=== PATIENT | male | born 1940 | race Caucasian/White ===

== ENCOUNTER 2019-03-18 06:10 | Day surgery (SDC) | payer MEDICARE, SELFPAY ==
[2019-03-18 06:32] VITALS: BP 126/88; PULSE 82; RESP 16; TEMP 36.2; O2SAT 99; BMI 25.8
[2019-03-18] MEDS: Lactated Ringers 1,000 ML 100 ML IV (06:47)
[2019-03-18 07:00] LABS: Bedside Glucose 146 mg/dL (70-110)
[2019-03-18] MEDS: Ketorolac 15 MG/ML Vial IV (07:28)
[2019-03-18] MEDS: Bupivacaine Mpf 0.5% 30 ML VIAL (07:45)
[2019-03-18] MEDS: Cefazolin 1 GM/50 ML BAG IV (07:54)
[2019-03-18 08:34] VITALS: BP 111/80; BP 126/88; PULSE 82; RESP 16; TEMP 36.2; O2SAT 97
--- NOTE | 2019-03-18 08:34 | OP.PCM_ITS ---
Report of Operation Date of Procedure: 03/18/19 Pre-Operative Diagnosis: Right first dorsal compartment tenosynovitis Post-Operative Diagnosis: Right first dorsal compartment tenosynovitis Surgery/Procedure Performed:: Right first dorsal compartment release Description of Surgical Findings:: Complete release. The tendon was explored for additional slips none were noted. systems support engineer: None Type of Anesthesia:: Local MAC Anesthesiologist: Lasha Fernandez Special Medications: Ancef Estimated Blood Loss (mL): 2 Fluids Replaced: 700 ml Description of Procedure: On the day of the procedure patient's R upper extremity was marked in the preoperative area. Patient was brought back to the operating room where placed in the supine position with the R hand on the armboard. A local block was administered by anesthesia, tourniquet was placed up at that time. R Hand was pr epped in a sterile fashion while the surgeon scrubbed. Upon reentering the room the R upper extremity was draped in a standard orthopedic fashion. Incision was marked out over the radial styloid. Timeout was called and it was agreed upon the side and site, the procedure to be performed, antibiotic given and patient's identity. Esmarch bandage was used to exsanguinate the extremity and tourniquet was placed at the 250 mmHg. No family incision was taken at the skin. Scissors were used to bluntly dissect until the sheath of the first dorsal compartment was visible. The sheath was incised in a longitudinal fashion and completely released leaving an volarly based flap. The thumb digit was then taken through range of motion and no triggering was noted. We explored the tendon for any additional slips did not identify any that were released. Wound was copiously irrigated out with normal saline. Incision was closed with 3-0 nylon. Xeroform dressing, sterile dressing, compressive jeremy ssing were placed tourniquet was let down. Patient was awakened by anesthesia and transferred to PACU for recovery. Postoperative plan: Patient can remove her dressing in 7 days. She'll follow up in 2 weeks for suture removal. She can begin range of motion as tolerated. - Complications none - Admit VTE Documentation VTE Present on Admission: No VTE Mechan Device Prophylaxis: SCD's VTE Pharm Prophylaxis ordered?: No Reason prophylaxis not ordered:: Treatment Not Indicated
[2019-03-18 08:45] VITALS: BP 126/88; BP 130/99; PULSE 75; RESP 16; O2SAT 97
[2019-03-18 08:45] LABS: Bedside Glucose 130 mg/dL (70-110)
[2019-03-18 08:52] VITALS: BP 126/88; BP 139/93; PULSE 75; RESP 16; TEMP 36.2; O2SAT 98
[2019-03-18 09:24] VITALS: BP 126/88
== END 2019-03-18 09:32 | disposition home or self-care (01) ==
LOC: SDC 06:15 → AC 06:16
PROVIDERS: Family Provider Nurse Practitioner Primary Care; PCP Nurse Practitioner Primary Care; Referring Provider Specialist; Visit Provider Specialist
PROC: (CPT 64721; principal; 2019-03-18 07:45)
DX: M65.4 Radial styloid tenosynovitis [de Quervain] (principal); E11.9 Type 2 diabetes mellitus without complications; E78.00 Pure hypercholesterolemia, unspecified; Z79.84 Long term (current) use of oral hypoglycemic drugs; Z79.899 Other long term (current) drug therapy
CPT/HCPCS: 01810; 25000; 82962; J7120; J2405

== ENCOUNTER 2024-10-29 15:48 | Inpatient (IN) | payer MEDICARE, SELFPAY ==
[2024-10-29 16:07] VITALS: BP 140/81; PULSE 86; RESP 14; TEMP 36; O2SAT 95; BMI 21.7; BMI 22.9
--- NOTE | 2024-10-29 19:09 | HP.PCM_ITS ---
HPI - General General Date of Admission: 10/29/24 Date of Service: 10/29/24 Chief Complaint: Here for rehabilitation. HPI Narrative ELVIS SUMMERS, is a 83 Male who presents with followin10/20/2024 Admit to [facility]. Recent fall with rib fracture. Acute delirium 2/2 hyponatremia from starting Sertraline recently AND taking 's oxycodone. 10/21/2024 CODE BLUE 2/2 vasovagal with urinary retention, transferred to MICU after ROSC after 1 round of CPR. Neurology consulted for mental status. 10/21/2024 MRI brain negative for stroke, showed chronic vascular changes. Possible vascular dementia. Transferred out of MICU. Mild to moderate HFpEF 2/2 cardiac arrest and IV fluid use to improve hyponatremia. Lasix 20mg iv q6 started for diuresis. Urology recommended Tamsulosin, indwelling baca catheter for 1-2 weeks bladder rest for urinary retention. 10/27/2024 CLINICAL STAFF EDUCATOR called for increasing oxygen requirement, Lasix 40mg iv x 1 dose given, Ceftriaxone and Doxycycline added for pneumonia. BiPAP applied and transferred to MICU. Pulsox improved to mid 90's on BIPAP with FiO2 85%, intubation held. Euvolemic. Echo shows moderate to severe aortic stenosis. 10/28/2024 Increase oxygen demand overnight, oxygen 8 liters, pulsox 94%. Continue incentive spirometry, wean oxygen as tolerated. PT/OT SNF. 10/29/2024 Admit to TCU with debility, here for rehabilitation, strengthening, prior to discharge home with . [facility] Medical History (Updated 10/29/24 @ 19:[address] Juan Reed MD) Vascular dementia Iron deficiency anemia Hyperlipidemia, unspecified Essential (primary) hypertension Type 2 diabetes mellitus with hyperglycemia Glaucoma Anxiety Urinary retention BPH (benign prostatic hyperplasia) Pneumonia Acute heart failure with preserved ejection fraction (HFpEF) Acute respiratory failure with hypoxia Cardiac arrest Hyponatremia Acute delirium Debility Home Medications ?Medication ?Instructions ?Recorded ?Last Taken ?Type atorvastatin 80 mg tablet 80 mg PO QHS cholesterol 10/22 Unknown History lisinopril 5 mg tablet 5 mg PO QHS kidneys 03/11/19 Unknown History metformin 1,000 mg tablet 1,000 mg PO QHS diabetes 10/22 Unknown History aspirin 81 mg tablet,delayed 81 mg PO DAILY atheroscle rosis 10/29/24 Unknown History release atorvastatin 40 mg tablet 40 mg PO DAILY hyperlipidemi a 10/29/24 Unknown History cholecalciferol (vitamin D3) 25 2,000 unit PO DAILY bear pplement 10/29/24 Unknown History mcg (1,000 unit) capsule docusate sodium 100 mg capsule 100 mg PO BID constipat ion 10/29/24 Unknown History (Colace) fluticasone propionate 50 1 spray intranasal DAILY all ergy 10/29/24 Unknown History mcg/actuation nasal symptoms spray,suspension (Allergy Relief (fluticasone)) latanoprost 0.005 % eye drops 1 drp ophthalmic (eye) Q HS eye 10/29/24 Unknown History health metformin 500 mg tablet,extended 1,000 mg PO BID type 2 diabetes 10/29/24 Unknown History release 24 hr mellitus multivitamin (Daily Multi-Vitamin 1 tab PO DAILY suppl ement 10/29/24 Unknown History tablet) pioglitazone 30 mg tablet 30 mg PO DAILY diabetes /2 10/28 Unknown History sertraline 25 mg tablet 25 mg PO DAILY anxiety 10/29 Unknown History tamsulosin 0.4 mg capsule (Flomax) 0.4 mg PO DAILY pro state 10/29/24 Unknown History timolol maleate 0.5 % eye drops 1 drp ophthalmic (eye) BID eye 10/29/24 Unknown History health trazodone 50 mg tablet 50 mg PO QHS sleep 10/29/24 Unknown History Allergy/AdvReac Type Severity Reaction Status Date / Time No Known Allergies Allergy Verified 03/11/19 14:02 Family History (Updated 10/29/24 @ 19:[address] Juan Reed MD) Daughter Diabetes Mother Hypertension Hyperlipidemia Lung cancer Father Hyperlipidemia Brother Hyperlipidemia Surgical History (Updated 10/29/24 @ 19:[address] Juan Reed MD) History of repair of left rotator cuff History of cholecystectomy Social History (Updated 10/29/24 @ 19:[address] Juan Reed MD) household members: spouse Smoking Status: Never smoker alcohol intake: current alcohol intake frequency: holidays/special occasions only substance use type: does not use ROS Review of Systems ROS Unobtainable: due to encephalopathy and due to mental condition Constitutional Constitutional: Reports weakness; Denies chills, fever(s) or weight gain ENT HEENT: Denies headache(s), nasal congestion or nasal discharge Cardiovascular Cardiovascular: Denies chest pain or palpitations Respiratory/Chest Respiratory/Chest: Denies cough, excessive phlegm production or shortness of breath with exertion Gastrointestinal Gastrointestinal: Denies abdominal pain, nausea or vomiting Genitourinary Genitourinary: Denies dysuria Musculoskeletal Musculoskeletal: Denies joint pain or joint swelling Integumentary Integumentary: Denies rash or wounds Neurologic Neurologic: Denies focal weakness, numbness or tingling Psychiatric Psychiatric: Denies anxiety, auditory hallucinations, depression, homicidal ideation or suicidal ideation Vital Signs Vital Signs Vital Signs: 10/29/24 16:07 10/29/24 16:07 Temperature 96.8 F L Temperature Source Axillary Pulse Rate 86 Pulse Rhythm Regular Pulse Strength Normal (2+) Respiratory Rate 14 Respiratory Effort Normal Non-Labored Respiratory Depth Normal Respiratory Pattern Normal Blood Pressure 140/81 H Blood Pressure Mean 100 Blood Pressure Position Sitting Blood Pressure Location Right Arm Pulse Ox 95 Oxygen Delivery Method Nasal Cannula Nasal Cannula Oxygen Flow Rate (L/min) 3 3 Weight Weight: 66.542 kg Body Mass Index (BMI) 22.9 Physical Exam Const alert General Appearance: cooperative HEENT normocephalic Eyes PERRL and EOMs intact bilaterally Neck supple, no JVD and no carotid bruits Resp normal respiratory effort, normal air movement and clear to auscultation bilaterally Cardio regular rate and regular rhythm GI normal to inspection, nondistended, normoactive bowel sounds, non-tender and non-distended Bladder / Kidney Exam: catheter in place urethral Extremity normal capillary refill General Extremity: Negative for edema Skin no rashes or lesions noted General Skin Exam: no breakdown Psych affect normal Appearance: appropriate Assessment & Plan Assessment/Plan (1) Debility: (2) Acute delirium: (3) Hyponatremia: (4) Cardiac arrest: (5) Acute respiratory failure with hypoxia: (6) Acute heart failure with preserved ejection fraction (HFpEF): (7) Pneumonia: (8) BPH (benign prostatic hyperplasia): (9) Urinary retention: (10) Anxiety: (11) Glaucoma: (12) Type 2 diabetes mellitus with hyperglycemia: (13) Essential (primary) hypertension: (14) Hyperlipidemia, unspecified: (15) Iron deficiency anemia: (16) Vascular dementia: PLAN: Plan 83 year old male with below past medical history hospitalized for acute delirium 2/2 hyponatremia, opioid use, complicated by cardiac arrest, acute HFpEF, urinary retention, acute respiratory failure with hypoxia, pneumonia, admitted to TCU with debility, here for rehabilitation, strengthening, prior to discharge home with . * Debility - PT/OT. * Pain - Tylenol 1000mg q6 prn pain (1-10). * Bowel - senna/colace 1 tablet bid, Magnesium citrate 300mL daily prn. * Adult immunization - Administer pneumonia vaccine, covid vaccine, flu vaccine as appropriate. * DVT prophylaxis - Lovenox 40mg sc daily. * Coronary artery disease - Aspirin 81mg daily. * Hyperlipidemia - Atorvastatin 40mg qhs. * Vitamin D deficiency - D3 50mcg daily. * Allergic rhinitis - Flonase nasal spray 1 spray nasal daily. * Glaucoma - Latanoprost 1gtt ou qhs, Timolol 1gtt ou bid. * Diabetes Mellitus II - Metformin XR 1000mg bidcm, Pioglitazone 30mg daily. * BPH/Urinary retention - Tamsulosin 0.4mg daily, indwelling baca catheter, voiding trial in 1-2 weeks. The following psychotropic medication was present on admission: Sertraline 25mg daily. Psychotropic medication therapy is indicated for a diagnosis of: Major Depression. Based on my clinical evaluation, continuation of the medication is necessary at this time. Gradual dose reduction plan (select one): ____ GDR will be attempted. Will monitor patient symptoms and behaviors in response to GDR. __x__ GRD contraindicated. 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 The following psychotropic medication was present on admission: Trazodone 50mg qhs. Psychotropic medication therapy is indicated for a diagnosis of: Insomnia. Based on my clinical evaluation, continuation of the medication is necessary at this time. Gradual dose reduction plan (select one): ____ GDR will be attempted. Will monitor patient symptoms and behaviors in response to GDR. __x__ GRD contraindicated. Reason contraindicated:
[2024-10-29 20:00] VITALS: PULSE 90; RESP 16; O2SAT 93
[2024-10-29] MEDS: Latanoprost 0.005% 1 Bottle 1 DRP OPHTHALMIC (20:27)
[2024-10-29] MEDS: Senna/Docusate Sodium 1 Tablet PO (20:28)
[2024-10-29] MEDS: Timolol 0.5% 5ML OPTH.BTL 1 DRP OPHTHALMIC (20:35)
--- NOTE | 2024-10-30 05:32 | NURSING ---
[employer] FLATBED TRUCK DRIVER x2 provided shower this AM. Patient sitting in recliner per preference at this time. Alert to self. No distress observed or reported. Television on. BLE elevated, personal items and call light within reach.
[2024-10-30 05:41] VITALS: PULSE 74; RESP 16
[2024-10-30 05:52] LABS: Hematocrit 36.9 % (40-54); Hemoglobin 12.6 g/dL (13.0-16.5); Immature Granulocytes Count 0.520 X10^3/uL (0.0-0.0); Mean Corp Hgb Conc 34.1 g/dL (32-36); Mean Corpuscular Volume 91.8 fL (80-94); Mean Platelet Vol. 9.2 fl (6.2-12.0); NRBC Flagged by Analyzer 0 % (0-5); Platelet Count 348 K/mm3 (150-450); RBC Distribution Width CV 13.6 % (11.6-14.6); RBC Distribution Width SD 46.5 fl (35.1-43.9); Red Blood Count 4.02 M/mm3 (4.6-6.2); White Blood Count 12.1 K/mm3 (4.4-11.0)
[2024-10-30 06:16] LABS: Anion Gap 12 (5-15); BUN 22 mg/dL (4-19); BUN/Creat Ratio 34.3 RATIO (10-20); Calcium,Total 10.1 mg/dL (7.6-11.0); Carbon Dioxide 27.1 mmol/L (21.0-32.0); Chloride 93 mmol/L (98-108); Estimated Creatinine Clearance 63.12 ml/min (50-250); Glucose 194 mg/dL (70-99); Potassium 4.0 mmol/L (3.3-5.1)
[2024-10-30 08:10] VITALS: BP 145/81; PULSE 97; RESP 18; TEMP 36.1; O2SAT 95
[2024-10-30] MEDS: Fluticasone 0.05% 1 SPRAY NASAL.SRY NASAL (08:12)
[2024-10-30] MEDS: metFORMIN (XR) 500 MG Tablet 1000 MG PO ×2 (08:13→17:16)
[2024-10-30] MEDS: Pioglitazone Hydrochloride 30 MG Tablet PO (08:13)
[2024-10-30] MEDS: Aspirin E.C. 81 MG Tablet PO (08:13)
[2024-10-30] MEDS: Cholecalciferol (VIT D3) 25 MCG TABLET (1,000 UNITS) 50 MCG PO (08:14)
[2024-10-30] MEDS: Timolol 0.5% 5ML OPTH.BTL 1 DRP OPHTHALMIC ×2 (08:14→21:16)
[2024-10-30] MEDS: Senna/Docusate Sodium 1 Tablet PO ×2 (08:14→21:13)
[2024-10-30 08:53] VITALS: O2SAT 95
--- NOTE | 2024-10-30 10:02 | CASEMGMT ---
Addendum entered by Felisha Muñoz 10/30/24 13:55: SW met with pt at bedside. Pt pleasant, friendly and cooperative. SW completed BIMS assessment. Pt struggled to stay on task and kept repeating story of he and his 's wedding. Scored 9/15. Original Note: Social Work SW attempted to phone , who is listed a primary contact, but phone number not in service. SW phoned dtr ,Elsa, listed as secondary contact, to inquire. Dtr stated has Dementia and should not be listed as a contact. Dtr stated she is primary contact and is local, and sister, Lilly Monroy, listed as secondary, and lives in [place]. There are two other children, but they live out of town. All 4 children have a good relationship and a good relationship with their father. Selina, , is their stepmother, of 46 years. Elsa and Lilly were together during the call and answered this worker's assessment questions. SW obtained pt's history and goals for the future. See assessment for details. SW updated contacts in chart. Verified pt's code status as DNR-CCA, no intubation. Requested pt's HCPOA be provided - dtr's agreed. Dtr's explained neither of them were aware of pt's fall or issues prior to the cardiac arrest and current change in condition. Pt was managing independently at home and caring for his . Dtr's stated in hindsight, there were some indications of memory impairment, but they attributed that to stress of caring for his . Dtr's voiced both pt and will need placed together and can no longer live independently. Dtr's stated they think AL would be most beneficial for pt/ as they are both social and enjoying playing cards, etc. Dtr's toured [facility] and liked it. SW explained process for placement, levels of care, finances and impact of changing environments. Dtr's are in the process of gaining access to pt's finances, as they report pt was a very private, proud person, and did not share his personal struggles or business with his children. SW suggested once finances are obtained, if pt cannot pay for several years at an AL, it would benefit pt/ to reside in a continuing care community with AL and SNF on the same campus to eliminate multiple facility changes, as AL cannot accept RASTA, but SNF can. SW educated to [facility] insurance with NRD 11/05 and continued stay is not guaranteed. AL anf SNF are OOP cost, but therapy can be covered under part B benefit. Dtr's expressed understanding. SW offered to provide resources of ALs and SNFs, also indicating memory care units. Dtr's agreed and provided email addresses. Both appreciative of information and ongoing assistance from this worker. SW emapthized with the major, sudden life changes and changes to their father. SW will continue to follow to assist with DC planning and support. Felisha Muñoz PRODUCTION [employer]PV BLIND STITCH MACHINE OPERATOR
--- NOTE | 2024-10-30 10:05 | NURSING ---
Tool Room Attendant Note; Activity Asset: Yris Dumont is independent in his choice of daily activities w/reminders. he will read the paper and watch tv independently in his room, family will visit and he welcomes visits w/the certified coding specialist and therapy dog. He prefers to be called Marcelo. Marcelo has stated it takes him a minute to get out what he wants to say. Staff will remind him of weekly activities and respect his right to say no.
[2024-10-30] MEDS: Tuberculin,Purif.prot.deriv. 50 TU/ML Vial 0.1 ML ID (11:52)
--- NOTE | 2024-10-30 15:33 | PHA.CONS_ITS ---
Documented by User: Nimo Fernandez 10/30/24 16:01 TCU RX Drug Regimen Review Subjective/Objective Subjective/Objective Subjective: TCU Admission. 83 YOM presented to outside hospital with recent rib fractures and delirium. Hospitalized for acute delirium 2/2 hyponatremia, opioid use, complicated by cardiac arrest, acute HFpEF, urinary retention, acute respiratory failure with hypoxia, pneumonia. Admitted to TCU with debility for strengthening and rehabilitation. Objective: Allergies No Known Allergies Allergy (Verified 03/11/19 14:02) Current Medications Generic Name Dose Route Start Last Admin Trade Name Freq PRN Reason Stop Dose Admin Aspirin 81 mg 10/30/24 08:00 10/30/24 08:13 Aspirin E.C. 81 Mg Tablet PO 81 mg BREAKFAST RAYNA Administration Atorvastatin Calcium 40 mg 10/30/24 10:00 10/30/24 08:13 Atorvastatin Calcium 40 Mg Tablet PO 40 mg DAILY RAYNA Administration Cholecalciferol 50 mcg 10/30/24 10:00 10/30/24 08:14 Cholecalciferol (Vit D3) 25 Mcg Tablet (1,000 Units) PO 50 mcg DAILY RAYNA Administration Enoxaparin Sodium 40 mg 10/30/24 06:00 10/30/24 06:56 Enoxaparin 40 Mg/0.4 Ml Syringe SC 40 mg DAILY@0600 RAYNA Administration Fluticasone Propionate 1 spray 10/30/24 10:00 10/30/24 08:12 Fluticasone 0.05% 1 Forbes Nasal.Sry NASAL 1 spray DAILY RAYNA Administration Latanoprost 1 drp 10/29/24 22:00 10/29/24 20:27 Latanoprost 0.005% 1 Bottle OPHTHALMIC 1 drp QHS RAYNA Administration Magnesium Citrate 300 ml 10/29/24 19:42 Magnesium Citrate 300 Ml PO DAILY PRN CONSTIPATION Metformin HCl 1,000 mg 10/30/24 08:00 10/30/24 08:13 Metformin (Xr) 500 Mg Tablet PO 1,000 mg BIDCM RAYNA Administration Multivitamins 1 tablet 10/30/24 08:00 10/30/24 08:14 Multivitamins,Therapeutic Tablet PO 1 tablet DAILYCM RAYNA Administration Pioglitazone HCl 30 mg 10/30/24 10:00 10/30/24 08:13 Pioglitazone Hydrochloride 30 Mg Tablet PO 30 mg DAILY RAYNA Administration Senna/Docusate Sodium 1 tablet 10/29/24 22:00 10/30/24 08:14 Senna/Docusate Sodium 1 Tablet PO 1 tablet BID RAYNA Administration Sertraline HCl 25 mg 10/30/24 10:00 10/30/24 08:13 Sertraline 50 Mg Tablet PO 25 mg DAILY RAYNA Administration Sodium Chloride 10 - 40 ml 10/29/24 16:08 0.9% Saline Lock 10 Ml Syringe IV UD PRN SALINE FLUSH Tamsulosin HCl 0.4 mg 10/30/24 10:00 10/30/24 08:13 Tamsulosin Hcl 0.4 Mg Capsule PO 0.4 mg DAILY RAYNA Administration Timolol Maleate 1 drp 10/29/24 22:00 10/30/24 08:14 Timolol 0.5% 5ml Opth.Btl OPHTHALMIC 1 drp BID RAYNA Administration Trazodone HCl 50 mg 10/29/24 22:00 10/29/24 20:28 Trazodone 50 Mg Tablet PO 50 mg QHS RAYNA Administration Tuberculin PPD 0.1 ml 11/06/24 10:00 Tuberculin,Purif.Prot.Deriv. 50 Tu/Ml Vial ID 11/06/24 10:01 X1 ONE Problem List Vascular dementia (Acute) Iron deficiency anemia (Acute) Hyperlipidemia, unspecified (Acute) Essential (primary) hypertension (Acute) Type 2 diabetes mellitus with hyperglycemia (Acute) Glaucoma (Acute) Anxiety (Acute) Urinary retention (Acute) BPH (benign prostatic hyperplasia) (Acute) Pneumonia (Acute) Acute heart failure with preserved ejection fraction (HFpEF) (Acute) Acute respiratory failure with hypoxia (Acute) Cardiac arrest (Acute) Hyponatremia (Acute) Acute delirium (Acute) Debility (Acute) Vital Signs Temp Pulse Resp BP Pulse Ox O2 Del Method O2 Flow Rate 97 F L 97 18 145/81 H 95 Nasal Cannula 4 10/30/24 08:10 10/30/24 08:10 10/30/24 08:10 10/30/24 08:10 10/30/24 08:53 10/30/24 08:53 10/30/24 14:42 Oxygen Flow Rate (L/min) 4 Oxygen Delivery Method Nasal Cannula Weight: 66.542 kg Body Mass Index (BMI) 22.9 Sodium 132 mmol/L (133-145) L 10/30/24 05:12 Potassium 4.0 mmol/L (3.3-5.1) 10/30/24 05:12 Chloride 93 mmol/L (98-108) L 10/30/24 05:12 Carbon Dioxide 27.1 mmol/L (21.0-32.0) 10/30/24 05:12 Anion Gap 12 (5-15) 10/30/24 05:12 BUN 22 mg/dL (4-19) H 10/30/24 05:12 Creatinine 0.64 mg/dL (0.70-1.20) L 10/30/24 05:12 Est GFR (MDRD) Non-Af 93 (>60) 10/30/24 05:12 BUN/Creatinine Ratio 34.3 RATIO (10-20) H 10/30/24 05:12 Glucose 194 mg/dL (70-99) H 10/30/24 05:12 Assessment/Plan: 1. Bowel: senna/docusate 1T PO BID and magnesium citrate 300mL PO daily PRN constipation. No PRN doses given. Please continue to monitor for constipation and PRN usage. Last documented bowel movement was 10/30/24. 2. DVT prophylaxis: enoxaparin 40mg PO daily. Please continue to monitor for S/S of bleeding/DVT, hemoglobin (last 12.6g/dL), platelets (last 348,000) and renal function. 3. CAD: aspirin 81mg PO daily. Please continue to monitor for S/S of bleeding/bruising and hemoglobin. 4. Hyperlipidemia: atorvastatin 40mg PO QHS. Please consider ordering a lipid panel as there is no panel in the chart. Thanks. Please continue to monitor for muscle pain. 5. Diabetes Mellitus II: metformin XR 1000mg PO BIDCM and pioglitazone 30mg PO daily. Please consider ordering a hemoglobin A1c as there is no level in the chart. Thanks. Please continue to monitor glucose (last 194mg/dL), GFR (last 93mL/min) and S/S of hypoglycemia. 6. BPH/urinary retention: tamsulosin 0.4mg PO daily. Please continue to monitor for S/S of BPH/urinary retention and BP (last 140/81, 145/51). 7. Glaucoma: latanoprost 1gtt OU QHS and timolol 0.5% 1gtt OU BID. Please continue to monitor for S/S of glaucoma and eye irritation. 8. Allergic rhinitis: fluticasone 0.05% nasal spray 1 spray nasal daily. Please continue to monitor for S/S of allergies. 9. Vitamin D deficiency/nutrition: cholecalciferol 50mcg PO daily and multivitamin 1T PO daily. Please consider ordering a vitamin D level as there is no level in the chart. Thanks. Assessment/Plan for indications treated with psychotropic medications: 1. Major depression: sertraline 25mg PO daily. Please see physician note regarding GDR. Monitor for diarrhea, nausea, headache, anxiety or drowsiness, suicidal thoughts or behaviors (Boxed Warning), symptoms of bleeding, symptoms of serotonin syndrome (including agitation, confusion, hyperreflexia, rigidity/myoclonus, tremor, tachycardia, tachypnea), sodium levels (last Na = 132mg/dL, please monitor closely as resident was admitted for hyponatremia). Monitor for efficacy including resident symptoms, behaviors and indications of distress. Monitor for tolerability including mental status, cognition, excessive sleepiness, withdrawal or decreased participation in activities and decline in physical functioning. Maximize use of nonpharmacologic/behavioral interventions to facilitate dose reduction or discontinuation as appropriate. Please evaluate the appropriateness of GDR unless contraindicated. If appropriate, GDR should be attempted in 2 separate quarters within the first year of use or admission to TCU. If GDR attempted, monitor resident symptoms/behaviors. 2. Insomnia: trazodone 50mg PO QHS. Please see physician note regarding GDR. Monitor for drowsiness, dizziness or confusion, dry mouth, constipation, symptoms of serotonin syndrome (including agitation, confusion, hyperreflexia, rigidity/myoclonus, tremor, tachycardia, tachypnea), suicidal thoughts or behaviors (Boxed Warning). Monitor HR (can cause bradycardia or tachycardia). HR range since admission = 74-97. Monitor for orthostatic hypotension, including postural dizziness, syncope or falls. Check orthostatic vital signs if suspicion of orthostasis. Monitor for efficacy including resident symptoms, behaviors and indications of distress. Monitor for tolerability including mental status, cognition, excessive sleepiness, withdrawal or decreased participation in activities and decline in physical functioning. Maximize use of nonpharmacologic/behavioral interventions to facilitate dose reduction or discontinuation as appropriate. Please evaluate the appropriateness of GDR unless contraindicated. If appropriate, GDR should be attempted in 2 separate quarters within the first year of use or admission to TCU. If GDR attempted, monitor resident symptoms/behaviors. Medical chart and medication regimen reviewed. The following medication irregularities or issues were identified: 1. Atorvastatin 40mg PO QHS. Please consider ordering a lipid panel as there is no panel in the chart. Thanks. 2. Metformin XR 1000mg PO BIDCM and pioglitazone 30mg PO daily. Please consider ordering a hemoglobin A1c as there is no level in the chart. Thanks. 3. Cholecalciferol 50mcg PO daily. Please consider ordering a vitamin D level as there is no level in the chart. Thanks. Date Date of Note: 10/30/24 Documented by User: Dr. Juan Reed MD 10/30/24 16:05 TCU RX Drug Regimen Review Provider Comments Provider responsibility Provider Comments to Recommendations by Pharmacy Agree
--- NOTE | 2024-10-30 15:37 | CHAPLAIN ---
Type of Pastoral Visit _x__ Initial Visit ___ Follow-up Visit ___ On-call Visit ___ General Patient Visit ___ Spiritual Assessment ___ Family Conference ___ Bereavement ___ Rapid Response ___ Code Blue ___ Other (describe below) Pastoral Care Referral From _x__ Patient ___ Family ___ Nurse ___ Physician ___ Department Coordinator ___ Concrete Handler ___ Other (describe below) Sacrament/Intervention _x__ Active listening ___ Anointing ___ Lutheran ___ Bereavement ___ Communion ___ Zita exploration ___ _x__ Life review ___ Prayer ___ Reconciliation ___ Sacrament of Sick _x__ Supportive presence ___ Wedding ___ Other (describe below) Pastoral Comments patient is pleasant and welcoming; pt is asked questions about his life, how he is feeling, and what he might need; pt answers some questions but states things that also have nothing to do with the conversation; pt makes some random remarks during a dialogue; pt is focused on getting it put on and not letting it slip off in the middle of discussion; pt does know where he lives and some helpful details while not being able to give other details about his life; OT came in to do his therapy session and the visit ended
[2024-10-30] MEDS: Latanoprost 0.005% 1 Bottle 1 DRP OPHTHALMIC (21:12)
[2024-10-30 22:32] VITALS: BP 138/86; PULSE 87; RESP 17; TEMP 36.4; O2SAT 92
--- NOTE | 2024-10-30 23:07 | NURSING ---
Patient's alarm sounding, staff entered room and found patient on floor on right side of bed. No injuries noted. Family and physician updated.
[2024-10-31 07:05] LABS: Cholesterol 124 mg/dL (<=200); Low Density Lipoprotein Calc. 74 mg/dL; Triglycerides 79 mg/dL; Very Low Density Lipoprotein 16 mg/dL (5-40); cholesterol:hdl ratio screen 3.59
[2024-10-31 07:09] LABS: Vitamin D,25 Hydroxy 46.7 ng/mL (30-100)
[2024-10-31 07:26] VITALS: O2SAT 96
[2024-10-31 08:11] VITALS: BP 141/88; PULSE 105; RESP 17; TEMP 36.6; O2SAT 96
[2024-10-31] MEDS: metFORMIN (XR) 500 MG Tablet 1000 MG PO ×2 (08:13→17:06)
[2024-10-31] MEDS: Aspirin E.C. 81 MG Tablet PO (08:13)
[2024-10-31] MEDS: Pioglitazone Hydrochloride 30 MG Tablet PO (08:14)
[2024-10-31] MEDS: Fluticasone 0.05% 1 SPRAY NASAL.SRY NASAL (08:14)
[2024-10-31] MEDS: Cholecalciferol (VIT D3) 25 MCG TABLET (1,000 UNITS) 50 MCG PO (08:15)
[2024-10-31] MEDS: Senna/Docusate Sodium 1 Tablet PO ×2 (08:15→21:20)
[2024-10-31] MEDS: Timolol 0.5% 5ML OPTH.BTL 1 DRP OPHTHALMIC ×2 (08:15→21:20)
--- NOTE | 2024-10-31 12:04 | NURSING ---
Patient took off O2 this morning. Patient ambulated with therapy and O2 remained at 94%. Nursing checked O2 while patient sitting with meal. O2 at 92%. Patient tolerating being on RA at this time. No respiratory distress noted. Patient denies shortness of breath. Will keep patient on RA and continue to monitor.
[2024-10-31 17:04] VITALS: PULSE 102; O2SAT 92
[2024-10-31] MEDS: Latanoprost 0.005% 1 Bottle 1 DRP OPHTHALMIC (21:20)
[2024-10-31 21:24] VITALS: RESP 16; O2SAT 95
[2024-11-01 06:20] VITALS: PULSE 90; RESP 18; O2SAT 92
[2024-11-01 07:35] VITALS: O2SAT 92
[2024-11-01] MEDS: metFORMIN (XR) 500 MG Tablet 1000 MG PO ×2 (07:55→17:20)
[2024-11-01] MEDS: Aspirin E.C. 81 MG Tablet PO (07:55)
[2024-11-01 08:00] VITALS: BP 145/80; PULSE 80; RESP 18; TEMP 36.6; O2SAT 92
[2024-11-01] MEDS: Pioglitazone Hydrochloride 30 MG Tablet PO (10:12)
[2024-11-01] MEDS: Senna/Docusate Sodium 1 Tablet PO ×2 (10:13→21:06)
[2024-11-01] MEDS: Fluticasone 0.05% 1 SPRAY NASAL.SRY NASAL (10:13)
[2024-11-01] MEDS: Timolol 0.5% 5ML OPTH.BTL 1 DRP OPHTHALMIC ×2 (10:16→21:06)
[2024-11-01] MEDS: Cholecalciferol (VIT D3) 25 MCG TABLET (1,000 UNITS) 50 MCG PO (10:16)
[2024-11-01] MEDS: Latanoprost 0.005% 1 Bottle 1 DRP OPHTHALMIC (21:06)
[2024-11-02 10:24] VITALS: BP 124/79; PULSE 103; RESP 16; TEMP 36.4; O2SAT 95
[2024-11-02] MEDS: Aspirin E.C. 81 MG Tablet PO (10:29)
[2024-11-02] MEDS: metFORMIN (XR) 500 MG Tablet 1000 MG PO ×2 (10:29→16:09)
[2024-11-02] MEDS: Fluticasone 0.05% 1 SPRAY NASAL.SRY NASAL (10:30)
[2024-11-02] MEDS: Pioglitazone Hydrochloride 30 MG Tablet PO (10:30)
[2024-11-02] MEDS: Senna/Docusate Sodium 1 Tablet PO ×2 (10:31→22:59)
[2024-11-02] MEDS: Timolol 0.5% 5ML OPTH.BTL 1 DRP OPHTHALMIC ×2 (10:31→22:55)
[2024-11-02] MEDS: Cholecalciferol (VIT D3) 25 MCG TABLET (1,000 UNITS) 50 MCG PO (10:32)
--- NOTE | 2024-11-02 16:16 | CHAPLAIN ---
Type of Pastoral Visit ___ Initial Visit _x__ Follow-up Visit ___ On-call Visit ___ General Patient Visit ___ Spiritual Assessment ___ Family Conference ___ Bereavement ___ Rapid Response ___ Code Blue ___ Other (describe below) Pastoral Care Referral From _x__ Patient ___ Family ___ Nurse ___ Physician ___ Metals Analyst ___ Station Installer And Repairer ___ Other (describe below) Sacrament/Intervention _x__ Active listening ___ Anointing ___ Samaritan ___ Bereavement ___ Communion ___ Zita exploration ___ _x__ Life review _x__ Prayer ___ Reconciliation ___ Sacrament of Sick ___ Supportive presence ___ Wedding ___ Other (describe below) Pastoral Comments continued with supportive visit with patient when previous visit was shortened due to therapy session last week; pt is active in conversation and has better control of details,memories, and clarity of what is happening for his future; pt has good family support; pt welcomes presence and prayers
[2024-11-02] MEDS: Latanoprost 0.005% 1 Bottle 1 DRP OPHTHALMIC (22:56)
[2024-11-03 05:54] VITALS: BMI 22.7
[2024-11-03] MEDS: metFORMIN (XR) 500 MG Tablet 1000 MG PO ×2 (08:51→17:17)
[2024-11-03] MEDS: Cholecalciferol (VIT D3) 25 MCG TABLET (1,000 UNITS) 50 MCG PO (08:51)
[2024-11-03] MEDS: Pioglitazone Hydrochloride 30 MG Tablet PO (08:51)
[2024-11-03] MEDS: Aspirin E.C. 81 MG Tablet PO (08:52)
[2024-11-03] MEDS: Fluticasone 0.05% 1 SPRAY NASAL.SRY NASAL (08:52)
[2024-11-03] MEDS: Timolol 0.5% 5ML OPTH.BTL 1 DRP OPHTHALMIC ×2 (08:52→20:10)
[2024-11-03] MEDS: Senna/Docusate Sodium 1 Tablet PO (08:53)
[2024-11-03 10:41] VITALS: O2SAT 93
[2024-11-03 16:00] VITALS: BP 127/76; PULSE 89; RESP 16; TEMP 36.4; O2SAT 95
[2024-11-03 17:35] LABS: Squamous Epithelial Cells - UA 0 SEEN /hpf (0-5)
[2024-11-03 18:00] LABS: Color, Urine Amber (Yellow); Glucose, Dipstick Normal (Normal); Ketone-Dipstick Negative (Negative); Leukocyte Esterase-Dipstick 100 /ul (Negative); Nitrite-Dipstick Negative (Negative); Occult Blood-Urine 250 /ul (Negative); Protein-Dipstick 100 mg/dl (Negative); Specific Gravity, Urine 1.020 (1.002-1.030); Urine Bilirubin Dipstick Negative (Negative)
[2024-11-03] MEDS: Latanoprost 0.005% 1 Bottle 1 DRP OPHTHALMIC (20:06)
[2024-11-03 20:23] LABS: Red Blood Cells-Urine > 100 SEEN /hpf (0-5)
[2024-11-03 20:24] LABS: Mucous, Urine 1+ /hpf (<or=2+)
[2024-11-04 05:43] VITALS: BMI 22.6
[2024-11-04 06:52] VITALS: O2SAT 93
[2024-11-04] MEDS: metFORMIN (XR) 500 MG Tablet 1000 MG PO ×2 (08:54→17:04)
[2024-11-04] MEDS: Aspirin E.C. 81 MG Tablet PO (08:54)
[2024-11-04] MEDS: Pioglitazone Hydrochloride 30 MG Tablet PO (08:55)
[2024-11-04] MEDS: Fluticasone 0.05% 1 SPRAY NASAL.SRY NASAL (08:56)
[2024-11-04] MEDS: Timolol 0.5% 5ML OPTH.BTL 1 DRP OPHTHALMIC ×2 (08:57→20:24)
[2024-11-04] MEDS: Cholecalciferol (VIT D3) 25 MCG TABLET (1,000 UNITS) 50 MCG PO (08:57)
--- NOTE | 2024-11-04 09:05 | CASEMGMT ---
Addendum entered by Felisha Muñoz 11/04/24 13:23: [facility] can accept, pending an assessment. Pt can stay with in memory care unit with the AL amenities. - Dtr, Ketty, emailed this worker requesting a referral to [facility] as well. - SW sent email referral to Cecilio, who manages [place] and [facility]. Addendum entered by Felisha Muñoz 11/04/24 11:52: [facility] to contact the dtr for further information. [facility] does not have beds in either AL unit or SNF LTC. Original Note: Social Work IDT met with patient, dtr and son, then son via conference call for care plan meeting. Discussed patient's progress in PT/OT/ST/SN/RDN. [facility] and continued stay is not guaranteed. Provided pt/family with written communication of insurance process and copay coverage during stay. IDT is recommending 26/11 care for CGA and cues for safety. Pt scored 10/30 on MOCA cognitive assessment. Recommending assistance with all higher level IADLs. SW inquired about DC plans given the recommendations. Pt self-reported the goal is an AL with . SW discussed plan further. Offered to make referrals. Dtr confirmed her sister toured [facility], [facility] and [facility] and SW can send referrals to those facilities to determine availability. SW reiterated having a continuing care community, with AL and SNF. Dtr stated pt's has Dementia and may need memory care, but they want pt and to live together. SW explained that if needs memory care, pt would not qualify to live with her; he would live in traditional AL. However, the facility will make the decision if needs memory care or AL. Reiterated that facility, family and 's PCP will collaborate to get placed to AL, while this worker will assist with pt transferring. SW reiterated from previous conversation with dtr about finances needed for AL and inquired about those findings. Dtr is working on it but the hope is pt will have the funds to support AL. SW reiterated that AL will need that information to consider acceptance. AL typically completes and onsite and will contact dtr to ask additional questions for placement. Dtr agreed. SW to place referrals and also note pt has new baca that will likely not be DCd prior to DC. Will notify dtr of outcomes. SW will continue to follow. - SW sent referrals to [facility], [facility] and [facility] via [employer]. Felisha Muñoz GREEN HIDE INSPECTOR FUR POLISHER
--- NOTE | 2024-11-04 11:34 | NURSING ---
Updated that [facility] called about f/u appt. Attempted to reach out, left with office [phone].
--- NOTE | 2024-11-04 15:02 | CASEMGMT ---
Social Work SW completed BIMS () and PHQ-2 () for MDS assessment. Felisha Muñoz GRAIN TRIMMER KSW
--- NOTE | 2024-11-04 15:42 | CASEMGMT ---
Social Work Marybeth from [facility] spoke with this worker after completing assessment with pt. Marybeth noted pt does have dx of vascular Dementia and after assessment, pt would also be appropriate memory care with . ALEX confirmed and will notify Marybeth with family's FOC. Felisha Muñoz MANAGER CREATIVE CONTINUOUS IMPROVEMENT MANAGER
[2024-11-04 16:00] VITALS: BP 147/86; PULSE 85; RESP 18; TEMP 36.8; O2SAT 95
--- NOTE | 2024-11-04 17:12 | RAD_ITS ---
PROCEDURE: CHEST PA AND LATERAL 11/04/2024 REASON FOR EXAM: COUGH. TECHNIQUE: CHEST PA AND LATERAL COMPARISON: None. FINDINGS: The heart is enlarged. Left basilar linear opacity favoring scar or atelectasis. Developing infiltrate is possible. Trace bilateral pleural effusions. No pneumothorax. RAD/Chest PA and Lateral IMPRESSION: As above. Reading Location: [place] [id number]
[2024-11-04] MEDS: Glucerna Shake 120 ML LIQUID PO ×2 (17:47→20:23)
--- NOTE | 2024-11-04 18:48 | NURSING ---
order to d/c catheter. removed and patient tolerated well.
[2024-11-04] MEDS: Latanoprost 0.005% 1 Bottle 1 DRP OPHTHALMIC (20:25)
[2024-11-04 22:00] VITALS: RESP 16
[2024-11-05] MEDS: Glucerna Shake 120 ML LIQUID PO ×4 (05:18→23:05)
--- NOTE | 2024-11-05 05:23 | NURSING ---
Pt bladder scanned for an amt of >737mL. Per protocol, pt straight cathed using sterile technique. Pt tolerated procedure well. Voided amt 1250mL. Continue voiding trials.
[2024-11-05 07:53] VITALS: BP 138/104; PULSE 100; RESP 17; TEMP 36.7; O2SAT 96
[2024-11-05] MEDS: Aspirin E.C. 81 MG Tablet PO (07:54)
[2024-11-05] MEDS: metFORMIN (XR) 500 MG Tablet 1000 MG PO ×2 (07:54→17:27)
[2024-11-05] MEDS: Pioglitazone Hydrochloride 30 MG Tablet PO (07:54)
[2024-11-05] MEDS: Timolol 0.5% 5ML OPTH.BTL 1 DRP OPHTHALMIC ×2 (07:55→23:05)
[2024-11-05] MEDS: Fluticasone 0.05% 1 SPRAY NASAL.SRY NASAL (07:55)
[2024-11-05] MEDS: Cholecalciferol (VIT D3) 25 MCG TABLET (1,000 UNITS) 50 MCG PO (07:55)
[2024-11-05 08:52] VITALS: O2SAT 92
[2024-11-05] MEDS: Senna/Docusate Sodium 1 Tablet PO (23:05)
[2024-11-05] MEDS: Latanoprost 0.005% 1 Bottle 1 DRP OPHTHALMIC (23:06)
[2024-11-06] MEDS: Glucerna Shake 120 ML LIQUID PO ×4 (05:49→21:03)
[2024-11-06 05:51] VITALS: PULSE 85; RESP 18; O2SAT 92
[2024-11-06 06:08] LABS: Hematocrit 31.9 % (40-54); Hemoglobin 10.8 g/dL (13.0-16.5); Immature Granulocytes Count 0.070 X10^3/uL (0.0-0.0); Mean Corp Hgb Conc 33.9 g/dL (32-36); Mean Corpuscular Volume 92.5 fL (80-94); Mean Platelet Vol. 9.4 fl (6.2-12.0); NRBC Flagged by Analyzer 0 % (0-5); Platelet Count 360 K/mm3 (150-450); RBC Distribution Width CV 14.1 % (11.6-14.6); RBC Distribution Width SD 47.4 fl (35.1-43.9); Red Blood Count 3.45 M/mm3 (4.6-6.2); White Blood Count 7.5 K/mm3 (4.4-11.0)
[2024-11-06 06:41] LABS: Anion Gap 9 (5-15); BUN 16 mg/dL (4-19); BUN/Creat Ratio 23.1 RATIO (10-20); Calcium,Total 9.3 mg/dL (7.6-11.0); Carbon Dioxide 25.4 mmol/L (21.0-32.0); Chloride 99 mmol/L (98-108); Estimated Creatinine Clearance 62.59 ml/min (50-250); Glucose 139 mg/dL (70-99); Potassium 3.9 mmol/L (3.3-5.1)
[2024-11-06 06:57] VITALS: O2SAT 92
[2024-11-06] MEDS: Aspirin E.C. 81 MG Tablet PO (09:03)
[2024-11-06] MEDS: metFORMIN (XR) 500 MG Tablet 1000 MG PO ×2 (09:03→16:41)
[2024-11-06] MEDS: Pioglitazone Hydrochloride 30 MG Tablet PO (09:04)
[2024-11-06] MEDS: Fluticasone 0.05% 1 SPRAY NASAL.SRY NASAL (09:04)
[2024-11-06] MEDS: Timolol 0.5% 5ML OPTH.BTL 1 DRP OPHTHALMIC ×2 (09:05→21:05)
[2024-11-06] MEDS: Senna/Docusate Sodium 1 Tablet PO ×2 (09:05→21:05)
[2024-11-06] MEDS: Cholecalciferol (VIT D3) 25 MCG TABLET (1,000 UNITS) 50 MCG PO (09:06)
[2024-11-06] MEDS: Tuberculin,Purif.prot.deriv. 50 TU/ML Vial 0.1 ML ID (13:58)
[2024-11-06 16:00] VITALS: BP 134/85; PULSE 97; RESP 18; TEMP 36.6; O2SAT 95
[2024-11-06] MEDS: Latanoprost 0.005% 1 Bottle 1 DRP OPHTHALMIC (21:04)
[2024-11-07] MEDS: Glucerna Shake 120 ML LIQUID PO ×4 (05:08→21:29)
[2024-11-07] MEDS: Aspirin E.C. 81 MG Tablet PO (08:45)
[2024-11-07] MEDS: metFORMIN (XR) 500 MG Tablet 1000 MG PO ×2 (08:46→17:07)
[2024-11-07] MEDS: Pioglitazone Hydrochloride 30 MG Tablet PO (08:47)
[2024-11-07] MEDS: Cholecalciferol (VIT D3) 25 MCG TABLET (1,000 UNITS) 50 MCG PO (08:48)
[2024-11-07] MEDS: Senna/Docusate Sodium 1 Tablet PO (08:48)
[2024-11-07] MEDS: Timolol 0.5% 5ML OPTH.BTL 1 DRP OPHTHALMIC ×2 (08:48→21:29)
[2024-11-07] MEDS: Fluticasone 0.05% 1 SPRAY NASAL.SRY NASAL (08:49)
[2024-11-07 10:00] VITALS: BP 148/87; PULSE 81; RESP 16; TEMP 36.6; O2SAT 96
[2024-11-07] MEDS: Latanoprost 0.005% 1 Bottle 1 DRP OPHTHALMIC (21:29)
[2024-11-07 22:00] VITALS: RESP 17
[2024-11-08] MEDS: Glucerna Shake 120 ML LIQUID PO ×4 (05:54→21:29)
[2024-11-08 05:57] VITALS: RESP 17
[2024-11-08] MEDS: Pioglitazone Hydrochloride 30 MG Tablet PO (08:10)
[2024-11-08] MEDS: Aspirin E.C. 81 MG Tablet PO (08:10)
[2024-11-08] MEDS: metFORMIN (XR) 500 MG Tablet 1000 MG PO ×2 (08:10→16:49)
[2024-11-08] MEDS: Cholecalciferol (VIT D3) 25 MCG TABLET (1,000 UNITS) 50 MCG PO (08:11)
[2024-11-08] MEDS: Timolol 0.5% 5ML OPTH.BTL 1 DRP OPHTHALMIC ×2 (08:12→21:27)
[2024-11-08 15:21] VITALS: BP 135/84; PULSE 95; RESP 18; TEMP 36.6; O2SAT 96
[2024-11-08] MEDS: Senna/Docusate Sodium 1 Tablet PO (21:27)
[2024-11-08] MEDS: Latanoprost 0.005% 1 Bottle 1 DRP OPHTHALMIC (21:28)
[2024-11-09] MEDS: Glucerna Shake 120 ML LIQUID PO ×4 (06:07→22:35)
[2024-11-09] MEDS: Aspirin E.C. 81 MG Tablet PO (07:23)
[2024-11-09] MEDS: metFORMIN (XR) 500 MG Tablet 1000 MG PO ×2 (07:23→16:59)
[2024-11-09] MEDS: Pioglitazone Hydrochloride 30 MG Tablet PO (07:24)
[2024-11-09] MEDS: Timolol 0.5% 5ML OPTH.BTL 1 DRP OPHTHALMIC ×2 (07:26→22:39)
[2024-11-09] MEDS: Cholecalciferol (VIT D3) 25 MCG TABLET (1,000 UNITS) 50 MCG PO (07:26)
[2024-11-09 07:41] VITALS: BP 144/89; PULSE 87; RESP 18; TEMP 36.3; O2SAT 96
--- NOTE | 2024-11-09 08:29 | NURSING ---
senior sales associate Note: MDS for 11/05/2024 Complete
--- NOTE | 2024-11-09 16:56 | NURSING ---
No blood noted in urine. Dr Reed made aware and Lovenox resumed and Flomax increased. Family and patient made aware.
[2024-11-09] MEDS: Latanoprost 0.005% 1 Bottle 1 DRP OPHTHALMIC (22:38)
[2024-11-09] MEDS: Senna/Docusate Sodium 1 Tablet PO (22:39)
[2024-11-09 23:01] VITALS: RESP 18
[2024-11-10] MEDS: Glucerna Shake 120 ML LIQUID PO ×4 (06:35→22:43)
[2024-11-10 06:42] VITALS: RESP 16
[2024-11-10] MEDS: Aspirin E.C. 81 MG Tablet PO (07:38)
[2024-11-10] MEDS: Timolol 0.5% 5ML OPTH.BTL 1 DRP OPHTHALMIC ×2 (07:38→22:48)
[2024-11-10] MEDS: metFORMIN (XR) 500 MG Tablet 1000 MG PO ×2 (07:38→17:53)
[2024-11-10] MEDS: Pioglitazone Hydrochloride 30 MG Tablet PO (07:39)
[2024-11-10] MEDS: Cholecalciferol (VIT D3) 25 MCG TABLET (1,000 UNITS) 50 MCG PO (07:41)
--- NOTE | 2024-11-10 09:13 | MDS.RN ---
Information for the MDS was obtained from review of the clinical record, interview of resident, staff, and direct observation of resident?s care.
--- NOTE | 2024-11-10 09:15 | CASEMGMT ---
Social Work SW phoned dtr, Elsa, to discuss pt's DC plans. SW noted [facility] can accept pt and in their memory care unit, and family canceled referral to [facility] and [facility] and decided to pursue [facility]. Dtr confirmed they have signed the contract for [facility] and the room is available starting today. Dtr inquired about insurance update. ALEX explained Yrn has not provided an outcome from the review on 11/05, but another review will be sent 11/10 to be diligent. Once insurance issues DC date, pt can transfer to [facility], unless family opts to DC prior. Dtr will notify this worker. Dtr requested documentation from the bank with written statements from two physicians on pt's inability to cognitively manage pt's finances. SW agreed to speak with two physicians and provide the paperwork to dtr. Dtr appreciative. SW will continue to follow. - Dr. Reed and Dr. [place] agreed to sign notice of pt's cognitive incompetence to manage finances. Felisha Muñoz LOAN COLLECTOR CURING PRESS OPERATOR
[2024-11-10 10:00] VITALS: BP 128/87; PULSE 96; RESP 18; TEMP 36.2; O2SAT 96
[2024-11-10 14:52] VITALS: BMI 23.5
[2024-11-10] MEDS: Latanoprost 0.005% 1 Bottle 1 DRP OPHTHALMIC (22:51)
[2024-11-11] MEDS: Glucerna Shake 120 ML LIQUID PO ×4 (06:25→21:30)
[2024-11-11] MEDS: Cholecalciferol (VIT D3) 25 MCG TABLET (1,000 UNITS) 50 MCG PO (09:26)
[2024-11-11] MEDS: Timolol 0.5% 5ML OPTH.BTL 1 DRP OPHTHALMIC ×2 (09:26→21:32)
[2024-11-11] MEDS: metFORMIN (XR) 500 MG Tablet 1000 MG PO ×2 (09:28→16:55)
[2024-11-11] MEDS: Aspirin E.C. 81 MG Tablet PO (09:28)
[2024-11-11] MEDS: Pioglitazone Hydrochloride 30 MG Tablet PO (09:28)
[2024-11-11] MEDS: Fluticasone 0.05% 1 SPRAY NASAL.SRY NASAL (09:29)
[2024-11-11] MEDS: Senna/Docusate Sodium 1 Tablet PO ×2 (09:31→21:31)
--- NOTE | 2024-11-11 12:05 | CASEMGMT ---
Social Work Insurance issued LCD 11/13, DC 11/14 ALEX phoned dtr, Elsa, to notify of DC date. Dtr stated she prefers DC 11/13 and [facility] had voiced to dtr that they do not do weekend admits. SW to follow up with Aung at [place] [facility] to verify DC 11/13 and will update the dtr. Dtr appreciative. SW confirmed DC needs - FWW and skilled HHC. SW offered list of skilled HHC agencies within geographical area, [place] with insurance, that include quality and resource data via [employer] guide. Dtr denied and agreeable to [facility]. ALEX to coordinate. - ALEX sent secure email to Aung to discuss DC 11/13. ALEX phoned referral to [facility] for PT/OT/ST. ALEX sent referral to [facility] via [employer]. Plan: DC 11/13 to [facility], [facility] PT/OT/ST, FWW Felisha Muñoz DEMAND INSPECTOR OPTOMETRIC TECH
--- NOTE | 2024-11-11 15:42 | PCM.DC.SUM ---
Providers Date of Admission: 10/29/24 Primary Care Physician: VALENTIN Marrufo Reason For Visit: CARDIAC ARREST/RESP FAILURE Diagnosis Discharge Diagnosis (1) Debility: Status: Acute Code(s): R53.81 - Other malaise (2) Acute delirium: Status: Acute Code(s): R41.0 - Disorientation, unspecified (3) Hyponatremia: Status: Acute Code(s): E87.1 - Hypo-osmolality and hyponatremia (4) Cardiac arrest: Status: Acute Code(s): I46.9 - Cardiac arrest, cause unspecified (5) Acute respiratory failure with hypoxia: Status: Acute Code(s): J96.01 - Acute respiratory failure with hypoxia (6) Acute heart failure with preserved ejection fraction (HFpEF): Status: Acute Code(s): I50.31 - Acute diastolic (congestive) heart failure (7) Pneumonia: Status: Acute Code(s): J18.9 - Pneumonia, unspecified organism (8) BPH (benign prostatic hyperplasia): Status: Acute Code(s): N40.0 - Benign prostatic hyperplasia without lower urinary tract symptoms (9) Urinary retention: Status: Acute Code(s): R33.9 - Retention of urine, unspecified (10) Anxiety: Status: Acute Code(s): F41.9 - Anxiety disorder, unspecified (11) Glaucoma: Status: Acute Code(s): H40.9 - Unspecified glaucoma (12) Type 2 diabetes mellitus with hyperglycemia: Status: Acute Code(s): E11.65 - Type 2 diabetes mellitus with hyperglycemia (13) Essential (primary) hypertension: Status: Acute Code(s): I10 - Essential (primary) hypertension (14) Hyperlipidemia, unspecified: Status: Acute Code(s): E78.5 - Hyperlipidemia, unspecified (15) Iron deficiency anemia: Status: Acute Code(s): D50.9 - Iron deficiency anemia, unspecified (16) Vascular dementia: Status: Acute Code(s): F01.50 - Vascular dementia, unspecified severity, without behavioral disturbance, psychotic disturbance, mood disturbance, and anxiety Plan 83 year old male with below past medical history hospitalized for acute delirium 2/2 hyponatremia, opioid use, complicated by cardiac arrest, acute HFpEF, urinary retention, acute respiratory failure with hypoxia, pneumonia, admitted to TCU with debility, here for rehabilitation, strengthening, prior to discharge home with . Debility - PT/OT. Pain - Tylenol 1000mg q6 prn pain (1-10). Bowel - senna/colace 1 tablet bid, Magnesium citrate 300mL daily prn. Adult immunization - Administer pneumonia vaccine, covid vaccine, flu vaccine as appropriate. DVT prophylaxis - Lovenox 40mg sc daily. Coronary artery disease - Aspirin 81mg daily. Hyperlipidemia - Atorvastatin 40mg qhs. Vitamin D deficiency - D3 50mcg daily. Allergic rhinitis - Flonase nasal spray 1 spray nasal daily. Glaucoma - Latanoprost 1gtt ou qhs, Timolol 1gtt ou bid. Diabetes Mellitus II - Metformin XR 1000mg bidcm, Pioglitazone 30mg daily. BPH/Urinary retention - Tamsulosin 0.4mg daily, indwelling baca catheter, voiding trial in 1-2 weeks. The following psychotropic medication was present on admission: Sertraline 25mg daily. Psychotropic medication therapy is indicated for a diagnosis of: Major Depression. Based on my clinical evaluation, continuation of the medication is necessary at this time. Gradual dose reduction plan (select one): ____ GDR will be attempted. Will monitor patient symptoms and behaviors in response to GDR. __x__ GRD contraindicated. Reason contraindicated: stable chronic correction use. The following psychotropic medication was present on admission: Trazodone 50mg qhs. Psychotropic medication therapy is indicated for a diagnosis of: Insomnia. Based on my clinical evaluation, continuation of the medication is necessary at this time. Gradual dose reduction plan (select one): ____ GDR will be attempted. Will monitor patient symptoms and behaviors in response to GDR. __x__ GRD contraindicated. Reason contraindicated: Medications at Discharge Home Medications aspirin 81 mg tablet,delayed release 81 mg PO DAILY atherosclerosis 10/29/24 atorvastatin 40 mg tablet 40 mg PO DAILY hyperlipidemia 10/29/24 cholecalciferol (vitamin D3) 25 mcg (1,000 unit) capsule 2,000 unit PO DAILY supplement 10/29/24 fluticasone propionate 50 mcg/actuation nasal spray,suspension (Allergy Relief (fluticasone)) 1 spray intranasal DAILY allergy symptoms 10/29/24 latanoprost 0.005 % eye drops 1 drp ophthalmic (eye) QHS eye health 10/29/24 pioglitazone 30 mg tablet 30 mg PO DAILY diabetes 10/29/24 sertraline 25 mg tablet 25 mg PO DAILY anxiety 10/29/24 timolol maleate 0.5 % eye drops 1 drp ophthalmic (eye) BID eye health 10/29/24 trazodone 50 mg tablet 50 mg PO QHS sleep 10/29/24 acetaminophen 500 mg tablet 1,000 mg (2 x 500 mg) PO Q8 #0 tabs 11/11/24 metformin 500 mg tablet,extended release 24 hr 1,000 mg (2 x 500 mg) PO BIDCM #0 tabs 11/11/24 tamsulosin 0.4 mg capsule 0.8 mg (2 x 0.4 mg) PO DAILY 30 days #60 caps 11/11/24 Hospital Course Operations None Procedures None Summary of Care Provided Minutes Spent on Discharge: 35 Hospital Course: 83 year old male with below past medical history hospitalized for acute delirium 2/2 hyponatremia, opioid use, complicated by cardiac arrest, acute HFpEF, urinary retention, acute respiratory failure with hypoxia, pneumonia, admitted to TCU with debility, here for rehabilitation, strengthening, prior to discharge home with . Marcelo failed voiding trials, follow up with Urology. Discharge to [facility] 11/13/2024, [facility] PT/OT/ST, FWW. FWW: Patient is unsafe to use a cane and requires a walker for ambulation in the home and the community. Physical Exam Const alert General Appearance: cooperative HEENT normocephalic Eyes PERRL and EOMs intact bilaterally Neck supple, no JVD and no carotid bruits Resp normal respiratory effort, normal air movement and clear to auscultation bilaterally Cardio regular rate and regular rhythm GI normal to inspection, nondistended, normoactive bowel sounds, non-tender and non-distended Bladder / Kidney Exam: catheter in place urethral Extremity normal capillary refill General Extremity: Negative for edema Skin no rashes or lesions noted General Skin Exam: no breakdown Psych affect normal Appearance: appropriate Weight / BMI Weight Weight: 67.993 kg Body Mass Index (BMI) 23.5 ABG / Lab / Microbiology Data 11/06/24 05:35 11/06/24 05:35 Laboratory: Laboratory Results - last 24 hr 11/11/24 06:04: POC Glucose 124 H Microbiology: Microbiology 11/03/24 17:28 Urine Catheter - Baca Urine Culture - Final Culture exhibits no growth. D/C Instructions Discharge Diet: No restrictions Discharge Activity: Return to Normal Activity, May Shower and Use Walker Weight Bearing Status: Weight bearing as tolerated Call your doctor if you observe: Fever of 101 or Higher, Inability to urinate, Inability to have a bowel movement, Shortness of breath, Dizziness, Fainting spells, Swelling in the ankles, Chest pain and Uncontrolled pain DC O2, CPAP, BIPAP Needs Home O2 Discharge instructions: No Additional Instructions: Discharge to [facility] 11/13/2024, [facility] PT/OT/ST, FWW. FWW: Patient is unsafe to use a cane and requires a walker for ambulation in the home and the community. Please Follow Up With: Raulito Anderson MD When: 4 weeks. Meaningful Use Info Meaningful Use Meaningful Use Diagnoses (Choose all that apply): None applicable Ischemic Stroke Statin Dosing Therapy Reference: STATIN DOSE THERAPY REFERENCE: * Patients > 75 years receive moderate or high dose statin therapy. * Patients 75 years or YOUNGER should receive HIGH intensity statin dose unless contraindicated. You will be required to document reason for non-treatment if statin daily dose does not meet guidelines. HIGH DOSE STATIN THERAPY DAILY Atorvastatin > than or = to 40 mg Rosuvastatin > than or = to 20 mg Amlodipine + Atorvastatin > than or = to 2.5/40 mg Ezetimibe + Simvastatin 10/80 mg Simvastatin 80mg Discharge Plan Admission Admit Date/Time: 10/29/24 15:48 Primary Reason for Your Visit: Debility. Attending Provider: Juan Reed Chi Primary Care Provider: Gui Ontiveros POLITICAL ANALYST Instructions Additional Instructions / Restrictions: Discharge to [facility] 11/13/2024, [facility] PT/OT/ST, FWW. FWW: Patient is unsafe to use a cane and requires a walker for ambulation in the home and the community. Discharge Orders/Prescriptions Prescriptions: New acetaminophen 500 mg Tablet 1,000 mg PO Q8 Qty: 0 0RF tamsulosin 0.4 mg Capsule 0.8 mg PO DAILY 30 Days Qty: 60 0RF metformin 500 mg Tablet Extended Release 24 Hr 1,000 mg PO BIDCM Qty: 0 0RF Continued trazodone 50 mg tablet 50 mg PO QHS aspirin 81 mg tablet,delayed release (DR/EC) 81 mg PO DAILY atorvastatin 40 mg tablet 40 mg PO DAILY cholecalciferol (vitamin D3) 25 mcg (1,000 unit) capsule 2,000 unit PO DAILY fluticasone propionate [Allergy Relief (fluticasone)] 50 mcg/actuation spray,suspension 1 spray intranasal DAILY Rx Instructions: administer into each nostril latanoprost 0.005 % drops 1 drp ophthalmic (eye) QHS pioglitazone 30 mg tablet 30 mg PO DAILY sertraline 25 mg tablet 25 mg PO DAILY timolol maleate 0.5 % drops 1 drp ophthalmic (eye) BID Discontinued atorvastatin 80 MG tablet 80 mg PO QHS metformin 1,000 MG tablet 1,000 mg PO QHS lisinopril 5 MG tablet 5 mg PO QHS docusate sodium [Colace] 100 mg capsule 100 mg PO BID tamsulosin [Flomax] 0.4 mg capsule 0.4 mg PO DAILY metformin 500 mg tablet extended release 24 hr 1,000 mg PO BID multivitamin [Daily Multi-Vitamin] Tablet 1 tab PO DAILY Referrals / Follow Up: Gui Ontiveros POLITICAL ANALYST, POLITICAL ANALYST-C [Primary Care Provider] - Disposition Disposition (needs filled in before D/C Order can be placed): Assisted Living
[2024-11-11 16:00] VITALS: BP 130/81; PULSE 81; RESP 18; TEMP 36.4; O2SAT 97
[2024-11-11 17:38] LABS: Mucous, Urine 0 SEEN /hpf (<or=2+); Squamous Epithelial Cells - UA 0 SEEN /hpf (0-5)
[2024-11-11 17:41] LABS: Color, Urine Yellow (Yellow); Glucose, Dipstick Normal (Normal); Ketone-Dipstick Negative (Negative); Leukocyte Esterase-Dipstick 25 /ul (Negative); Nitrite-Dipstick Negative (Negative); Occult Blood-Urine 250 /ul (Negative); Protein-Dipstick 30 mg/dl (Negative); Specific Gravity, Urine 1.010 (1.002-1.030); Urine Bilirubin Dipstick Negative (Negative)
[2024-11-11 18:39] LABS: Red Blood Cells-Urine > 100 SEEN /hpf (0-5)
[2024-11-11 18:44] LABS: Calcium Oxalate Crystals Ur RARE /hpf (<or=2+)
[2024-11-11 19:45] VITALS: RESP 18
[2024-11-11] MEDS: Latanoprost 0.005% 1 Bottle 1 DRP OPHTHALMIC (21:32)
[2024-11-12] MEDS: Glucerna Shake 120 ML LIQUID PO ×4 (05:34→21:08)
[2024-11-12] MEDS: metFORMIN (XR) 500 MG Tablet 1000 MG PO ×2 (08:58→16:34)
[2024-11-12] MEDS: Pioglitazone Hydrochloride 30 MG Tablet PO (08:58)
[2024-11-12] MEDS: Aspirin E.C. 81 MG Tablet PO (08:58)
[2024-11-12] MEDS: Fluticasone 0.05% 1 SPRAY NASAL.SRY NASAL (08:59)
[2024-11-12] MEDS: Senna/Docusate Sodium 1 Tablet PO ×2 (09:00→21:10)
[2024-11-12] MEDS: Timolol 0.5% 5ML OPTH.BTL 1 DRP OPHTHALMIC ×2 (09:00→21:09)
[2024-11-12] MEDS: Cholecalciferol (VIT D3) 25 MCG TABLET (1,000 UNITS) 50 MCG PO (09:01)
[2024-11-12 10:00] VITALS: RESP 18
[2024-11-12 15:49] VITALS: BP 144/82; PULSE 95; RESP 18; TEMP 36.6; O2SAT 95
[2024-11-12] MEDS: Latanoprost 0.005% 1 Bottle 1 DRP OPHTHALMIC (21:10)
[2024-11-13] MEDS: Glucerna Shake 120 ML LIQUID PO (05:12)
[2024-11-13 05:14] VITALS: PULSE 68; RESP 16; O2SAT 94
[2024-11-13 05:36] LABS: Hematocrit 32.3 % (40-54); Hemoglobin 10.9 g/dL (13.0-16.5); Immature Granulocytes Count 0.030 X10^3/uL (0.0-0.0); Mean Corp Hgb Conc 33.7 g/dL (32-36); Mean Corpuscular Volume 92.0 fL (80-94); Mean Platelet Vol. 9.9 fl (6.2-12.0); NRBC Flagged by Analyzer 0 % (0-5); Platelet Count 253 K/mm3 (150-450); RBC Distribution Width CV 14.4 % (11.6-14.6); RBC Distribution Width SD 47.9 fl (35.1-43.9); Red Blood Count 3.51 M/mm3 (4.6-6.2); White Blood Count 4.8 K/mm3 (4.4-11.0)
[2024-11-13 06:30] LABS: Anion Gap 8 (5-15); BUN 14 mg/dL (4-19); BUN/Creat Ratio 21.8 RATIO (10-20); Calcium,Total 9.2 mg/dL (7.6-11.0); Carbon Dioxide 27.1 mmol/L (21.0-32.0); Chloride 94 mmol/L (98-108); Estimated Creatinine Clearance 63.12 ml/min (50-250); Glucose 122 mg/dL (70-99); Potassium 3.9 mmol/L (3.3-5.1)
--- NOTE | 2024-11-13 08:50 | CASEMGMT ---
Social Work SW completed BIMS () and PHQ-2 () for MDS assessment. Felisha Muñoz ACCOUNTS ADMINISTRATOR PHOTOFLASH POWDER MIXER
[2024-11-13 09:36] LABS: Osmolality, Serum 278 mOsm/KG (280-301)
[2024-11-13 10:05] VITALS: BP 144/80; PULSE 91; RESP 18; TEMP 36.4; O2SAT 97
[2024-11-13] MEDS: Aspirin E.C. 81 MG Tablet PO (10:07)
[2024-11-13] MEDS: metFORMIN (XR) 500 MG Tablet 1000 MG PO (10:07)
[2024-11-13] MEDS: Pioglitazone Hydrochloride 30 MG Tablet PO (10:08)
[2024-11-13] MEDS: Fluticasone 0.05% 1 SPRAY NASAL.SRY NASAL (10:08)
[2024-11-13] MEDS: Cholecalciferol (VIT D3) 25 MCG TABLET (1,000 UNITS) 50 MCG PO (10:09)
[2024-11-13] MEDS: Senna/Docusate Sodium 1 Tablet PO (10:09)
[2024-11-13] MEDS: Timolol 0.5% 5ML OPTH.BTL 1 DRP OPHTHALMIC (10:09)
--- NOTE | 2024-11-13 11:26 | NURSING ---
report called to [facility] at this time
[2024-11-13 14:17] LABS: Osmolality, Urine 406 mOsm/KG
== END 2024-11-13 11:26 | disposition home health service (06) | DRG 640 ==
PROVIDERS: Admitting Provider Family Medicine Geriatric Medicine; PCP Nurse Practitioner Primary Care; Referring Provider Family Medicine Geriatric Medicine; Visit Provider Family Medicine Geriatric Medicine
DX: E87.1 Hypo-osmolality and hyponatremia (principal); J18.9 Pneumonia, unspecified organism; I50.31 Acute diastolic (congestive) heart failure; N39.0 Urinary tract infection, site not specified; E11.39 Type 2 diabetes mellitus with other diabetic ophthalmic complication; D50.9 Iron deficiency anemia, unspecified; E11.65 Type 2 diabetes mellitus with hyperglycemia; E55.9 Vitamin D deficiency, unspecified; I11.0 Hypertensive heart disease with heart failure; Z86.74 Personal history of sudden cardiac arrest; F01.50 Vascular dementia, unspecified severity, without behavioral disturbance, psychotic disturbance, mood disturbance, and anxiety; F32.9 Major depressive disorder, single episode, unspecified; J30.9 Allergic rhinitis, unspecified; I25.10 Atherosclerotic heart disease of native coronary artery without angina pectoris; F41.9 Anxiety disorder, unspecified; E78.5 Hyperlipidemia, unspecified; R33.8 Other retention of urine; N40.1 Benign prostatic hyperplasia with lower urinary tract symptoms; H40.9 Unspecified glaucoma; Z79.84 Long term (current) use of oral hypoglycemic drugs; Z79.899 Other long term (current) drug therapy; Z79.51 Long term (current) use of inhaled steroids; Z79.82 Long term (current) use of aspirin
CPT/HCPCS: 36415; 71046; 80048; 80061; 81001; 82306; 82962; 83036; 83930; 83935; 84300; 85025; 87086; 92507; 92523; 97110; 97116; 97129; 97130; 97162; 97166; 97530; 97535; 97802

== ENCOUNTER → 2024-11-23 04:00 | Outpatient (REF) | payer MEDICARE, SELFPAY ==
--- OUTSIDE RECORDS SUMMARY | 2024-11-23 03:41 | XMS RPT_ITS | CCD ---
Author Organization [facility] Informat ion Partnership [facility] Care Team Providers Care Wildlife Veterinarian Name Role Phone ALBERT BLOOD BANK TECHNICIAN-PITCH FILLER, RASHMI Primary Care Physician Tunde PTMakenzie Unavailable Unavailable BALTES BLOOD BANK TECHNICIAN-PITCH FILLER, RASHMI Attending Unavailabl e BALTES BLOOD BANK TECHNICIAN-PITCH FILLER, RASHMI Primary Care Unavailabl e MIRACLE COULTER DO Attending Unavailable BALTES BLOOD BANK TECHNICIAN-PITCH FILLER, RASHMI Primary Care Unavailabl e BALTES BLOOD BANK TECHNICIAN-PITCH FILLER, RASHMI Attending Unavailabl e BALTES BLOOD BANK TECHNICIAN-PITCH FILLER, RASHMI Primary Care Unavailabl e Guadalupe Holm Unavailable Unavailable BALTES BLOOD BANK TECHNICIAN-PITCH FILLER, RASHMI Primary Care Unavailabl e BALTES BLOOD BANK TECHNICIAN-PITCH FILLER, RASHMI Attending Unavailabl e BALTES BLOOD BANK TECHNICIAN-PITCH FILLER, RASHMI Primary Care Unavailabl e BALTES BLOOD BANK TECHNICIAN-PITCH FILLER, RASHMI Attending Unavailabl e BALTES BLOOD BANK TECHNICIAN-PITCH FILLER, RASHMI Attending Unavailabl e BALTES BLOOD BANK TECHNICIAN-PITCH FILLER, RASHMI Primary Care Unavailabl e BALTES BLOOD BANK TECHNICIAN-PITCH FILLER, RASHMI Attending Unavailabl e BALTES BLOOD BANK TECHNICIAN-PITCH FILLER, RASHMI Primary Care Unavailabl e BALTES BLOOD BANK TECHNICIAN-PITCH FILLER, RASHMI Attending Unavailabl e BALTES BLOOD BANK TECHNICIAN-PITCH FILLER, RASHMI Primary Care Unavailabl e BALTES BLOOD BANK TECHNICIAN-PITCH FILLER, RASHMI Attending Unavailabl e BALTES BLOOD BANK TECHNICIAN-PITCH FILLER, RASHMI Primary Care Unavailabl e BALTES BLOOD BANK TECHNICIAN-PITCH FILLER, RASHMI Primary Care Unavailabl e BALTES BLOOD BANK TECHNICIAN-PITCH FILLER, RASHMI Attending Unavailabl kirill HAHN MD, JUDIT Consulting Unavailable BALTES BLOOD BANK TECHNICIAN-PITCH FILLER, RASHMI Primary Care Unavailabl JAMIE Morgan MD Attending Unavailable BALTES BLOOD BANK TECHNICIAN-PITCH FILLER, RASHMI Primary Care Unavailabl e NELIDA GROVE DO Attending Unavailable BALTES BLOOD BANK TECHNICIAN-PITCH FILLER, RASHMI Attending Unavailabl e BALTES BLOOD BANK TECHNICIAN-PITCH FILLER, RASHMI Primary Care Unavailabl e BALTES BLOOD BANK TECHNICIAN-PITCH FILLER, RASHMI Primary Care Unavailabl e JOEL BLOOD BANK TECHNICIAN-PITCH FILLER, KATI Attending Unavailab le BALTES BLOOD BANK TECHNICIAN-PITCH FILLER, RASHMI Attending Unavailabl e BALTES BLOOD BANK TECHNICIAN-PITCH FILLER, [place] Primary Care Unavailyessica Price ELECTRICAL TEST TECHNICIAN-C, [place] Primary Care Provider [phone] Derek TREVIZO, Dr. Juan Lacey Admit Provider Derek TREVIZO, Dr. Juan Lacey Attending Provider Derek TREVIZO, Dr. Juan Lacey Referring Provider [phone] KYLIE TREVIZO, KUN Consulting Unavailable JOHAN TREVIZO, ROSI Attending Unavailable JOVANI TREVIZO, JUDIT Admitting Unavailable ALBERT DAI, RASHMI Primary Care Unavailyessica HAHN MD, JUDIT Consulting Unavailable LILLY MCINTOSH MD Consulting Unavailable Albert ELECTRICAL TEST TECHNICIAN, Rashmi Primary Care Unavailable Juan Reed Chi Referring Unavailable Juan Reed Chi Attending Unavailable Juan Reed Chi Admitting Unavailable Medications Current Medications Medication Drug Class(es) Dates Sig (Normalized) Sig (Original) acetaminophen 500 mg oral tablet (1 source) Start: 11-11-2024 take 2 tablets by mouth every eight hours Acetaminophen 500 mg Tablet Active 1000 mg PO EVERY 8 HOURS 0 0 November 11, 2024 12:00am amLODIPine 5 mg oral tablet (15 sources) Dihydropyridine Calcium Channel Sharif Start: 05-01-2024 End: 06-05-2025 amLODIPine 5 mg oral tablet Dose : 5 mg = 1 tab(s), Oral, BID, dose increase, # 200 tab(s), 3 Refill(s), Pharmacy: [facility]/pharmacy #[id number], Hypertension, 171, cm, 05/01/24 15:45:00 EST, Height, kg, 05/01/24 15:45:00 EST, Dosing Weight Start Date: 05/01/24 Stop Date: 06/05/25 Status: Ordered Quantity: 200.0 Unit: tab(s) Repeat number: 4 Indications: Essential (primary) hypertension; Start: 05-15-2023 amLODIPine 5 m g oral tablet Dose : 5 mg = 1 tab(s), Oral, qDay, # 90 tab(s), 3 Refill(s), Pharmacy: [facility]/pharmacy #[id number], Hypertension, 172, cm, 04/19/23 8:24:00 EST, Height, kg, 04/19/23 8:24:00 EST, Dosing Weight Start Date: 05/15/23 Status: Ordered Start: 01-30-2022 amLODIPine 5 m g oral tablet Dose : 5 mg = 1 tab(s), Oral, qDay, # 90 tab(s), 3 Refill(s), Pharmacy: [facility], Hypertension, 172.7, cm, 01/30/22 8:54:00 EDT, Height, kg, 01/30/22 8:54:00 EDT, Dosing Weight Start Date: 01/30/22 Status: Ordered amoxicillin 875 mg / clavulanate 125 mg oral tablet (2 sources) Penicillin-class Antibacterial Start: 04-08-2021 End: 04-18-2021 take 1 tablet by mouth every twelve hours at mealtime amoxicillin-clavulanate 875 mg-125 mg oral tablet 1 tab(s), Oral, q12h, with food or milk, X 10 day(s), # 20 tab(s), 0 Refill(s), 04/18/21 8:21:00 EST, Pharmacy: [id number] 175.3, cm, 04/08/21 8:08:00 EST, Height, 72.7, kg, 04/08/21 8:08:00 EST, Dosing Weight Start Date: 04/08/21 Stop Date: 04/18/21 Status: Ordered aspirin 81 mg delayed release oral tablet (17 sources) Platelet Aggregation Inhibitor, Nonsteroidal Anti-inflammatory Drug Start: 05-15-2023 take 1 tablet by mouth once daily Aspirin 81 mg tablet,delayed release (DR/EC) Active 81 mg PO DAILY October 29, 2024 12:00am atherosclerosis Start: 07-17-2022 aspirin 81 mg oral delayed release tablet Dose : 81 mg = 1 tab(s), Oral, qDay, # 90 tab(s), 3 Refill(s), Pharmacy: [facility], Atherosclerosis of aorta Type 2 diabetes mellitus, 173.99, cm, 07/17/22 7:31:00 EDT, Height, kg, 07/17/22 7:31:00 EDT, Dosing Weight Start Date: 07/17/22 Status: Ordered Start: 07-27-2021 aspirin 81 mg oral delayed release tablet Dose : 81 mg = 1 tab(s), Oral, qDay, # 90 tab(s), 3 Refill(s), other reason (Rx), Atherosclerosis of aorta Type 2 diabetes mellitus Start Date: 07/27/21 Status: Ordered atorvastatin 40 mg oral tablet (20 sources) HMG-CoA Reductase Inhibitor Start: 06-19-2024 take 1 tablet by mouth once daily Atorvastatin 40 mg tablet Active 40 mg PO DAILY October 29, 2024 12:00am hyperlipidemia Start: 05-15-2023 atorvastatin 4 0 mg oral tablet Dose : 40 mg = 1 tab(s), Oral, qDay, # 90 tab(s), 3 Refill(s), Pharmacy: [facility]/pharmacy #[id number], Hyperlipidemia Type 2 diabetes mellitus, 172, cm, 04/19/23 8:24:00 EST, Height, kg, 04/19/23 8:24:00 EST, Dosing Weight Start Date: 05/15/23 Status: Ordered Start: 01-30-2022 atorvastatin 8 0 mg oral tablet Dose : 80 mg = 1 tab(s), Oral, qHS, # 90 tab(s), 3 Refill(s), Pharmacy: [facility], Hypercholesteremia, 172.7, cm, 01/30/22 8:54:00 EDT, Height, kg, 01/30/22 8:54:00 EDT, Dosing Weight Start Date: 01/30/22 Status: Ordered Start: 03-11-2019 End: 11-11-2024 atorvastatin 80 mg oral tabl et Dose : 80 mg = 1 tab(s), Oral, qHS, # 90 tab(s), 3 Refill(s), Pharmacy: [facility], Hypercholesteremia, 172.7, cm, 01/06/20 10:26:00 EDT, Height, kg, 05/10/20 14:23:00 EST, Dosing Weight Start Date: 04/06/21 Status: Ordered Azithromycin 5 Day Dose Pack 250 mg oral tablet (2 sources) Start: 04-08-2021 End: 04-13-2021 Azithromycin 5 Day Dose Pack 250 mg oral tablet Take two (2) tablets day 1-then one (1) tablet, Oral, Daily, X 5 day(s), # 6 tab(s), 0 Refill(s), 04/13/21 8:21:00 EST, Pharmacy: [facility] 175.3, cm, 04/08/21 8:08:00 EST, Height, 72.7, kg, 04/08/21 8:08:00 EST, Dosing Weight Start Date: 04/08/21 Stop Date: 04/13/21 Status: Ordered benzonatate 100 mg oral capsule (1 source) Non-narcotic Antitussive Start: 04-11-2021 End: 04-18-2021 Tessalon Perles 100 mg oral capsule Dose : 100 mg = 1 cap(s), Oral, TID, PRN as needed for cough, X 7 day(s), # 21 cap(s), 0 Refill(s), 04/18/21 11:21:00 EST, [facility]: [facility] [address] Cough, 172.7, cm, 04/11/21 10:22:00 EST, Height, kg, 04/11/21 10:22:00 EST, Dosing Weight Start Date: 04/11/21 Stop Date: 04/18/21 Status: Ordered biotin 1 mg oral tablet (1 source) Start: 05-10-2020 biotin 1000 mcg oral tablet Dose : 1,000 mcg = 1 tab(s), Oral, qDay, 0 Refill(s) Start Date: 05/10/20 Status: Ordered cholecalciferol 0.025 mg oral capsule (1 source) Vitamin D Start: 10-29-2024 take 1 capsule by mouth once daily Cholecalciferol (Vitamin D3) 25 mcg (1,000 unit) capsule Active 2000 U PO DAILY October 29, 2024 12:00am supplement Chondroitin Sulfates / Glucosamine (1 source) Start: 05-10-2020 take 1 capsule by mouth once daily Glucosamine Chondroitin oral capsule Dose = 3 cap(s), Oral, qDay, # 50 cap(s), 0 Refill(s) Start Date: 05/10/20 Status: Ordered docusate sodium 100 mg oral capsule (2 sources) Start: 10-29-2024 End: 11-11-2024 Colace 100 mg oral capsule Dose : 100 mg = 1 cap(s), Oral, BID, 0 Refill(s) Start Date: 10/29/24 Status: Ordered Repeat number: 1 ferrous sulfate 325 mg delayed release oral tablet (2 sources) Start: 01-28-2024 End: 04-27-2024 ferrous sulfate 325 mg (65 mg elemental iron) oral delayed release tablet Dose : 325 mg = 1 tab(s), Oral, qDay, # 90 tab(s), 0 Refill(s), Pharmacy: [facility]/pharmacy #[id number], Iron deficiency anemia, 172.7, cm, 01/09/24 9:29:00 EDT, Height, kg, 01/09/24 9:29:00 EDT, Dosing Weight Start Date: 01/28/24 Stop Date: 04/27/24 Status: Ordered fluticasone propionate 0.05 mg/actuat metered dose nasal spray (17 sources) Corticosteroid Start: 10-29-2024 take 50 ug nasal route once daily Fluticasone Propionate (Allergy Relief (Fluticasone)) 50 mcg/actuation spray,suspension Active 1 NMA INTRANASAL DAILY October 29, 2024 12:00am allergy symptoms administer into each nostril Start: 05-15-2023 fluticasone 50 mcg/inh NASAL spray 50 mcg, Nasal, qDay, # 16 gram(s), 2 Refill(s), Pharmacy: [facility]/pharmacy #[id number], Seasonal allergies, 172, cm, 04/19/23 8:24:00 EST, Height, kg, 04/19/23 8:24:00 EST, Dosing Weight Start Date: 05/15/23 Status: Ordered Quantity: 16.0 Unit: g Repeat number: 3 Indications: Other seasonal allergic rhinitis; Start: 03-02-2019 fluticasone 50 mcg/inh NASAL spray 50 mcg, Nasal, qDay, # 16 gram(s), 2 Refill(s), Pharmacy: [facility], Seasonal allergies Start Date: 03/02/19 Status: Ordered fluticasone 50 mcg/inh NASAL spray (2 sources) Start: 03-02-2019 fluticasone 50 mcg/inh NASAL spray 50 mcg, Nasal, qDay, # 16 gram(s), 2 Refill(s), Pharmacy: [facility], Seasonal allergies Start Date: 03/02/19 Status: Ordered guaiFENesin 1200 mg oral tablet (2 sources) Start: 04-08-2021 End: 04-22-2021 take 1 tablet by mouth once daily guaiFENesin 1200 mg oral tablet, extended release Dose : 1,200 mg = 1 tab(s), Oral, q12h, PRN Congestion, not to exceed 2.4 grams/day. Take with plenty of water. Do not take any other mucinex or guaifenesin containing products while on this medication., X 14 day(s), # 28 tab(s), 0 Refill(s), 04/22/21... Start Date: 04/08/21 Stop Date: 04/22/21 Status: Ordered ibuprofen 200 mg oral tablet (15 sources) Nonsteroidal Anti-inflammatory Drug Start: 12-10-2018 ibuprofen 200 mg oral tablet Dose : 400 mg = 2 tab(s), Oral, q6h, PRN for pain, Take with food or milk., 0 Refill(s) Start Date: 12/10/18 Status: Ordered Repeat number: 1 latanoprost 0.05 mg/ml ophthalmic solution (19 sources) Prostaglandin Analog Start: 10-29-[address] 0.005 % drops Active 1 NMA OPHTHALMIC AT BEDTIME October 29, 2024 12:00am eye health Start: 12-10-2018 take 1 dose into the eye(s) once daily at bedtime latanoprost 0.005% ophthalmic solution Dose = 1 drop(s), Eyes, both, qHS, 0 Refill(s) Start Date: 12/10/18 Status: Ordered Repeat number: 1 Start: 12-10-2018 take 1 dose into the eye(s) once daily at bedtime latanoprost 0.005% ophthalmic solution Dose = 1 drop(s), Eyes, both, qHS, 0 Refill(s) Start Date: 12/10/18 Status: Ordered lisinopril 40 mg oral tablet (18 sources) Angiotensin Converting Enzyme Inhibitor Start: 05-15-2023 lisinopril 40 mg ora l tablet Dose : 40 mg = 1 tab(s), Oral, qDay, # 90 tab(s), 3 Refill(s), Pharmacy: [facility]/pharmacy #[id number], Hypertension, 172, cm, 04/19/23 8:24:00 EST, Height, kg, 04/19/23 8:24:00 EST, Dosing Weight Start Date: 05/15/23 Status: Ordered Quantity: 90.0 Unit: tab(s) Repeat number: 4 Indications: Essential (primary) hypertension; Start: 09-04-2022 lisinopril 40 mg oral tablet Dose : 40 mg = 1 tab(s), Oral, qDay, # 90 tab(s), 3 Refill(s), Pharmacy: [facility], Hypertension, 172.7, cm, 09/04/22 7:49:00 EDT, Height, kg, 09/04/22 7:49:00 EDT, Dosing Weight Start Date: 09/04/22 Status: Ordered Start: 10-06-2021 lisinopril 40 mg oral tablet Dose : 40 mg = 1 tab(s), Oral, qDay, # 90 tab(s), 3 Refill(s), Pharmacy: [facility], Hypertension, 173.99, cm, 10/06/21 7:57:00 EDT, Height, kg, 10/06/21 7:57:00 EDT, Dosing Weight Start Date: 10/06/21 Status: Ordered Start: 04-06-2021 lisinopril 10 mg oral tablet Dose : 10 mg = 1 tab(s), Oral, qDay, no refills sent with last script - thank you!, # 90 tab(s), 3 Refill(s), Pharmacy: [facility], Hypertension, 172.7, cm, 01/06/20 10:26:00 EDT, Height, kg, 05/10/20 14:23:00 EST, Dosing Weight Start Date: 04/06/21 Status: Ordered Start: 03-11-2019 End: 11-11-2024 take 1 tablet by mouth at bedtime Lisinopril 5 MG tablet Discontinued 5 mg PO AT BEDTIME March 11, 2019 1:00am November 11, 2024 3:46pm kidneys 24 hr metFORMIN hydrochlorid e 500 mg extended release oral tablet (20 sources) Biguanide Start: 10-29-2024 End: 11-11-2024 Metformin 500 mg Tablet Extended Release 24 Hr Active 1000 mg PO TWICE DAILY WITH MEALS 0 0 November 11, 2024 12:00am Start: 09-16-2024 End: 09-11-2025 MetFORMIN (Eqv-Glucophage XR ) 500 mg oral tablet, EXTENDED RELEASE Dose : 2,000 mg = 4 tab(s), Oral, qDay, # 360 tab(s), 3 Refill(s), Pharmacy: [facility]/pharmacy #[id number], Type 2 diabetes mellitus, 169.5, cm, 07/08/24 9:50:00 EST, Height, kg, 07/08/24 9:50:00 EST, Dosing Weight Start Date: 09/16/24 Stop Date: 09/11/25 Status: Ordered Quantity: 360.0 Unit: tab(s) Repeat number: 4 Indications: Type 2 diabetes mellitus without complications; Start: 07-09-2023 End: 07-03-2024 MetFORMIN (Eqv-Glucophage XR ) 500 mg oral tablet, EXTENDED RELEASE Dose : 2,000 mg = 4 tab(s), Oral, qDay, # 360 tab(s), 3 Refill(s), Pharmacy: [facility]/pharmacy #[id number], Type 2 diabetes mellitus, 171, cm, 07/09/23 6:57:00 EST, Height, kg, 07/09/23 6:57:00 EST, Dosing Weight Start Date: 07/09/23 Stop Date: 07/03/24 Status: Ordered Start: 05-29-2022 End: 11-25-2022 metFORMIN 500 mg oral tablet EXTENDED RELEASE Dose : 2,000 mg = 4 tab(s), Oral, qDay, # 360 tab(s), 3 Refill(s), Pharmacy: [facility], Type 2 diabetes mellitus, 172.7, cm, 09/04/22 7:49:00 EDT, Height, kg, 09/04/22 7:49:00 EDT, Dosing Weight Start Date: 09/04/22 Status: Ordered Start: 01-30-2022 End: 04-30-2022 metFORMIN 500 mg oral tablet EXTENDED RELEASE Dose : 2,000 mg = 4 tab(s), Oral, qDay, # 360 tab(s), 0 Refill(s), Pharmacy: [facility], Type 2 diabetes mellitus, 172.7, cm, 01/30/22 8:54:00 EDT, Height, kg, 01/30/22 8:54:00 EDT, Dosing Weight Start Date: 01/30/22 Stop Date: 04/30/22 Status: Ordered Start: 04-06-2021 metFORMIN 500 mg oral tablet EXTENDED RELEASE Dose : 1,000 mg = 2 tab(s), Oral, qDay, # 180 tab(s), 3 Refill(s), Pharmacy: [facility], 172.7, cm, 01/06/20 10:26:00 EDT, Height, kg, 05/10/20 14:23:00 EST, Dosing Weight Start Date: 04/06/21 Status: Ordered Start: 03-11-2019 End: 11-11-2024 take 1 tablet by mouth at bedtime Metformin 1,000 MG tablet Discontinued 1000 mg PO AT BEDTIME March 11, 2019 1:00am November 11, 2024 3:47pm diabetes Multivitamin preparation (18 sources) Start: 10-28-2019 take 1 tablet by mouth once daily Multivitamin Dose = 1 tab(s), Oral, Daily, 0 Refill(s) Start Date: 10/28/19 Status: Ordered Repeat number: 1 Start: 10-28-2019 take 1 tablet by marilyn th once daily Multivitamin Dose = 1 tab(s), Oral, Daily, 0 Refill(s) Start Date: 10/28/19 Status: Ordered ONETOUCH ULTRA BLUE TEST STRP (2 sources) Start: 12-10-2018 ONETOUCH ULTRA BLUE TEST STRP ONETOUCH ULTRA BLUE TEST STRP, 0 Refill(s) Start Date: 12/10/18 Status: Ordered ONETOUCH ULTRA2 GLUCOSE SYST (1 source) Start: 12-10-2018 ONETOUCH ULTRA2 GLUCOSE SYST use as directed Start Date: 12/10/18 Status: Ordered pioglitazone 30 mg oral tablet (15 sources) Peroxisome Proliferator Receptor alpha Agonist, Peroxisome Proliferator Receptor gamma Agonist, Thiazolidinedione Start: 06-09-2024 take 1 tablet by mouth once daily Pioglitazone 30 mg tablet Active 30 mg PO DAILY October 29, 2024 12:00am diabetes Start: 05-15-2023 pioglitazone 3 0 mg oral tablet Dose : 30 mg = 1 tab(s), Oral, Daily, # 90 tab(s), 3 Refill(s), Pharmacy: [facility]/pharmacy #[id number], 172, cm, 04/19/23 8:24:00 EST, Height, kg, 04/19/23 8:24:00 EST, Dosing Weight Start Date: 05/15/23 Status: Ordered Start: 09-04-2022 pioglitazone 3 0 mg oral tablet Dose : 30 mg = 1 tab(s), Oral, Daily, # 90 tab(s), 3 Refill(s), Pharmacy: [facility], 172.7, cm, 09/04/22 7:49:00 EDT, Height, kg, 09/04/22 7:49:00 EDT, Dosing Weight Start Date: 09/04/22 Status: Ordered Start: 07-17-2022 pioglitazone 3 0 mg oral tablet Dose : 30 mg = 1 tab(s), Oral, Daily, # 90 tab(s), 0 Refill(s), Pharmacy: [facility], 173.99, cm, 07/17/22 7:31:00 EDT, Height Start Date: 07/17/22 Status: Ordered sertraline 25 mg oral tablet (7 sources) Serotonin Reuptake Inhibitor Start: 10-29-2024 take 1 tablet by mouth once daily Sertraline 25 mg tablet Active 25 mg PO DAILY October 29, 2024 12:00am anxiety Start: 10-08-2024 sertraline 25 mg oral tablet Dose : 25 mg = 1 tab(s), Oral, qDay, # 90 tab(s), 0 Refill(s), Pharmacy: [facility]/pharmacy #[id number], Anxiety, 170.2, cm, 10/08/24 10:32:00 EDT, Height, kg, 10/08/24 10:32:00 EDT, Dosing Weight Start Date: 10/08/24 Status: Ordered Quantity: 90.0 Unit: tab(s) Repeat number: 1 Indications: Anxiety disorder, unspecified; Start: 05-01-2024 End: 07-30-2024 sertraline 25 mg oral tablet Dose : 25 mg = 1 tab(s), Oral, qDay, # 90 tab(s), 0 Refill(s), other reason (Rx), Anxiety Start Date: 05/01/24 Stop Date: 07/30/24 Status: Ordered Quantity: 90.0 Unit: tab(s) Repeat number: 1 Indications: Anxiety disorder, unspecified; tamsulosin hydrochloride 0.4 mg oral capsule (3 sources) alpha-Adrenergic Sharif Start: 11-11-2024 take 2 capsules by mouth once daily Tamsulosin 0.4 mg Capsule Active 0.8 mg PO DAILY 60 30 0 November 11, 2024 12:00am Start: 10-29-2024 End: 11-11-2024 Flomax 0.4 mg oral capsule D ose : 0.4 mg = 1 cap(s), Oral, qDay, 0 Refill(s) Start Date: 10/29/24 Status: Ordered Repeat number: 1 terbinafine 250 mg oral tablet (2 sources) Allylamine Antifungal Start: 07-17-2022 End: 10-09-2022 terbinafine 250 mg oral tablet Dose : 250 mg = 1 tab(s), Oral, qDay, X 42 day(s), # 42 tab(s), 1 Refill(s), 10/09/22 7:57:00 EDT, Pharmacy: [facility], Onychomycosis, 173.99, cm, 07/17/22 7:31:00 EDT, Height Start Date: 07/17/22 Stop Date: 10/09/22 Status: Ordered Timolol Maleate (17 sources) beta-Adrenergic Sharif Start: 10-29-2024 Timolol Maleate 0.5 % drops Active 1 NMA OPHTHALMIC TWICE A DAY October 29, 2024 12:00am eye health Start: 10-24-2021 Timolol Maleat e (Eqv-Timoptic) 0.5% ophthalmic solution 1 gtt(s), Eyes, both, BID, 0 Refill(s) Start Date: 10/24/21 Status: Ordered Repeat number: 1 Start: 10-24-2021 Timolol Maleat e (Eqv-Timoptic) 0.5% ophthalmic solution 1 gtt(s), Eyes, both, BID, 0 Refill(s) Start Date: 10/24/21 Status: Ordered Start: 10-24-2021 Timolol Maleat e (Eqv-Timoptic) 0.5% ophthalmic solution 1 gtt(s), Eyes, both, qDay, 0 Refill(s) Start Date: 10/24/21 Status: Ordered traZODone hydrochloride 50 mg oral tablet (2 sources) Serotonin Reuptake Inhibitor Start: 10-29-2024 traZODone 50 mg oral tablet Dose : 25 mg = 0.5 tab(s), Oral, qHS, 0 Refill(s) Start Date: 10/29/24 Status: Ordered Repeat number: 1 Vitamin D3 (18 sources) Start: 05-10-2020 Vitamin D3 Dos e : 2,000 unit(s) = 1 tab(s), Oral, Daily, 0 Refill(s) Start Date: 05/10/20 Status: Ordered Repeat number: 1 Start: 05-10-2020 Vitamin D3 Dos e : 2,000 unit(s) = 1 tab(s), Oral, Daily, 0 Refill(s) Start Date: 05/10/20 Status: Ordered Completed/Discontinued Medications Medication Drug Class(es) Dates Sig (Normalized) Sig (Original) diclofenac sodium 0.01 mg/mg topical gel (1 source) Nonsteroidal Anti-inflammatory Drug Start: 08-08-2023 End: 08-22-2023 Voltaren 1% topical gel 2 = gram(s), Topical, QID, PRN as needed for pain, # 100 gram(s), 0 Refill(s), Pharmacy: [facility]/pharmacy #[id number], Gel, 171, cm, 08/08/23 8:28:00 EDT, Height, 73, kg, 08/08/23 8:28:00 EDT, Dosing Weight Start Date: 08/08/23 Stop Date: 08/22/23 Status: Ordered Multivitamin (Daily Multi-Vitamin) tablet (1 source) Start: 10-29-2024 End: 11-11-2024 Multivitamin (Daily Multi-Vitamin) tablet Discontinued 1 {tbl} PO DAILY October 29, 2024 12:00am November 11, 2024 3:47pm supplement Problems Active Problems Problem Classification Problem Date Documented Date Episodic/Chronic Anxiety disorders (11 sources) Anxiety; Translations: [Anxiety disorder] Onset: 10-20-2024 05-01-2024 Chronic Cardiac arrest and ventricular fibrillation (6 sources) Cardiac arrest; Translations: [Cardiac arrest, cause unspecified] Onset: 10-20-2024 Chronic Cataract (20 sources) Opacification of intraocular lens; 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] Onset: 05-08-2022 07-31-2022 Chronic Comment on above: shu eyes, WEC, stabl e Stable, WEC Conduction disorders (3 sources) Left bundle branch block; Translations: [Left bundle-branch block, unspecified] Onset: 10-20-2024 Chronic Congestive heart failure; nonhypertensive (8 sources) Diastolic heart failure; Translations: [Unspecified diastolic (congestive) heart failure] Onset: 10-20-2024 10-24-2024 Chronic Deficiency and other anemia (9 sources) Iron deficiency anemia; Translations: [Iron deficiency anemia, unspecified] 05-01-2024 Episodic Delirium, dementia, and amnestic and other cognitive disorders (2 sources) Vascular dementia ; Translations: [Vascular dementia without behavioral disturbance] 10-29-2024 Chronic Diabetes mellitus with complications (2 sources) Hyperglycemia due to type 2 diabetes mellitus; Translations: [Type 2 diabetes mellitus with hyperglycemia] 10-29-2024 Chronic Diabetes mellitus without complication (20 sources) Type 2 diabetes mellitus; Translations: [Type 2 diabetes mellitus without complications] Onset: 04-19-2023 07-27-2021 Chronic Disorders of lipid metabolism (20 sources) Hypercholesterolemia; Translations: [Hyperlipidemia] Onset: 10-20-2024 03-02-2019 Chronic E Codes: Fall (1 source) Fall; Translations: [Unspecified fall, initial encounter] Onset: 02-20-2024 Episodic Essential hypertension (20 sources) Hypertensive disorder; Translations: [Essential (primary) hypertension] Onset: 04-19-2023 01-06-2020 Chronic Fluid and electrolyte disorders (7 sources) Hypo-osmolality and or hyponatremia; Translations: [Hypo-osmolality and hyponatremia] Onset: 10-20-2024 Episodic Genitourinary symptoms and ill-defined conditions (20 sources) Microalbuminuria; Translations: [Retention of urine] Onset: 10-20-2024 04-19-2023 Episodic Glaucoma (20 sources) Glaucoma; Translations: [Unspecified glaucoma] 12-09-2018 Chronic Heart valve disorders (20 sources) Mitral valve regurgitation 12-09-2018 Chronic Hyperplasia of prostate (20 sources) Benign prostatic hypertrophy with outflow obstruction; Translations: [Benign prostatic hyperplasia] 12-09-2018 Chronic Hypertension with complications and secondary hypertension (2 sources) Hypertensive heart failure; Translations: [Hypertensive heart disease with heart failure] Onset: 10-20-2024 Chronic Malaise and fatigue (2 sources) Asthenia; Translations: [Other malaise] 10-29-2024 Episodic Mycoses (1 source) Onychomycosis due to dermatophyte ; Translations: [Tinea unguium] Episodic Other connective tissue disease (20 sources) Radial styloid tenosynovitis 12-10-2018 Episodic Other fractures (1 source) Closed fracture thoracic vertebra, wedge; Translations: [Wedge compression fracture of second thoracic vertebra, initial encounter for closed fracture] Onset: 02-20-2024 Episodic Other fractures (1 source) Fracture of multiple ribs ; Translations: [Multiple fractures of ribs, unspecified side, sequela] Episodic Other fractures (1 source) Multiple fractures of ribs, unspecified side, sequela; Translations: [Multiple fractures of ribs, unspecified side, sequela] Onset: 10-20-2024 Episodic Other injuries and conditions due to external causes (1 source) Injury of head; Translations: [Unspecified injury of head, initial encounter] Onset: 02-20-2024 Episodic Other nervous system disorders (1 source) Metabolic encephalopathy; Translations: [Metabolic encephalopathy] Chronic Other nervous system disorders (1 source) Metabolic encephalopathy; Translations: [Metabolic encephalopathy] Onset: 10-20-2024 Chronic Other nervous system disorders (1 source) Toxic encephalopathy; 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] Onset: 10-24-2024 Episodic Other nutritional; endocrine; and metabolic disorders (1 source) Hypomagnesemia; Translations: [Hypomagnesemia] Onset: 10-20-2024 Chronic Other upper respiratory disease (1 source) Other seasonal allergic rhinitis; Translations: [Other seasonal allergic rhinitis] Onset: 10-20-2024 Chronic Peripheral and visceral atherosclerosis (20 sources) Atherosclerosis of aorta; Translations: [Atherosclerosis of aorta] Onset: 04-08-2021 Chronic Pneumonia (except that caused by tuberculosis or sexually transmitted disease) (2 sources) Pneumonia; Translations: [Pneumonia, unspecified organism] 10-29-2024 Episodic Residual codes; unclassified (1 source) Altered mental status; Translations: [Altered mental status, unspecified] Onset: 10-26-2024 Episodic Residual codes; unclassified (2 sources) Delirium; Translations: [Disorientation, unspecified] 10-29-2024 Episodic Residual codes; unclassified (1 source) Altered mental status, unspecified; Translations: [Altered mental status, unspecified] Onset: 10-20-2024 Episodic Respiratory failure; insufficiency; arrest (adult) (6 sources) Acute respiratory failure; Translations: [Acute respiratory failure with hypoxia] Onset: 10-20-2024 Episodic Unclassified (19 sources) Body mass index 20-24 - normal 10-06-2021 Unclassified (9 sources) Patient encounter status 04-09-2024 Unclassified (7 sources) Moderate aortic valve stenosis 05-01-2024 Unclassified (1 source) pt will see Dr. 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] Onset: 10-20-2024 Unclassified (1 source) Unspecified dementia, mild, with anxiety; Translations: [Unspecified dementia, mild, with anxiety] Onset: 10-20-2024 Past or Other Problems Problem Classification Problem Date Documented Da te Episodic/Chronic Unclassified (1 source) Mild dementia; Translations: [Unspecified dementia, mild, with anxiety] Results Test Name Value Interpretation Reference Range Facility Basic Metabolic Profile (BMP )on 12-25-2024 BUN Normal 4-19 [facility] Comment on above: Result Comment: Canc elled via OM: Order cancelled - Patient discharged Performed By: #### L 501.080 #### [facility] [address] [facility] [address] BUN/CRE Normal 10-20 [facility] Comment on above: Result Comment: Canc elled via OM: Order cancelled - Patient discharged Performed By: #### L 501.080 #### [facility] [address] [facility] [address] Calcium Normal 7.6-11.0 [facility] Comment on above: Result Comment: Canc elled via OM: Order cancelled - Patient discharged Performed By: #### L 501.080 #### [facility] [address] [facility] [address] CL Normal 98-108 [facility] Comment on above: Result Comment: Canc elled via OM: Order cancelled - Patient discharged Performed By: #### L 501.080 #### [facility] [address] [place], [address] CO2 Normal 21.0-32.0 [facility] Comment on above: Result Comment: Canc elled via OM: Order cancelled - Patient discharged Performed By: #### L 501.080 #### [facility] [address] [place], [address] CREAT,SERUM Normal 0.70-1.20 [facility] Comment on above: Result Comment: Canc elled via OM: Order cancelled - Patient discharged Performed By: #### L 501.080 #### [facility] [address] [place], [address] eGFR Normal >60 [facility] Comment on above: Result Comment: Canc elled via OM: Order cancelled - Patient discharged Performed By: #### L 501.080 #### [facility] [address] [place], [address] GAP Normal 5-15 [facility] Comment on above: Result Comment: Canc elled via OM: Order cancelled - Patient discharged Performed By: #### L 501.080 #### [facility] [address] [place], [address] GLU Normal 70-99 [facility] Comment on above: Result Comment: Canc elled via OM: Order cancelled - Patient discharged Performed By: #### L 501.080 #### [facility] [address] [place], [address] Potassium Normal 3.3-5.1 [facility] Comment on above: Result Comment: Canc elled via OM: Order cancelled - Patient discharged Performed By: #### L 501.080 #### [facility] [address] [place], [address] Basic Metabolic Profile (BMP) Normal 133-145 [facility] Comment on above: Result Comment: Canc elled via OM: Order cancelled - Patient discharged Performed By: #### L 501.080 #### [facility] [address] [place], [address] CBC W/Diff, Automatedon 08-2 Absolute Neut Normal 2.0-7.7 [facility] Comment on above: Result Comment: Canc elled via OM: Order cancelled - Patient discharged Performed By: #### L 501.080 #### [facility] [address] [place], [address] HCT Normal 40-54 [facility] Comment on above: Result Comment: Canc elled via OM: Order cancelled - Patient discharged Performed By: #### L 501.080 #### [facility] [address] [place], [address] HGB Normal 13.0-16.5 [facility] Comment on above: Result Comment: Canc elled via OM: Order cancelled - Patient discharged Performed By: #### L 501.080 #### [facility] [address] [place], [address] MCH Normal 27.0-32.0 [facility] Comment on above: Result Comment: Canc elled via OM: Order cancelled - Patient discharged Performed By: #### L 501.080 #### [facility] [address] [place], [address] MCHC Normal 32-36 [facility] Comment on above: Result Comment: Canc elled via OM: Order cancelled - Patient discharged Performed By: #### L 501.080 #### [facility] [address] [place], [address] MCV Normal 80-94 [facility] Comment on above: Result Comment: Canc elled via OM: Order cancelled - Patient discharged Performed By: #### L 501.080 #### [facility] [address] [place], [address] NEUT% Normal 47-70 [facility] Comment on above: Result Comment: Canc elled via OM: Order cancelled - Patient discharged Performed By: #### L 501.080 #### [facility] [address] [place], [address] PLT Normal 150-450 [facility] Comment on above: Result Comment: Canc elled via OM: Order cancelled - Patient discharged Performed By: #### L 501.080 #### [facility] [address] [place], [address] RBC Normal 4.6-6.2 [facility] Comment on above: Result Comment: Canc elled via OM: Order cancelled - Patient discharged Performed By: #### L 501.080 #### [facility] [address] [place], [address] RDW CV Normal 11.6-14.6 [facility] Comment on above: Result Comment: Canc elled via OM: Order cancelled - Patient discharged Performed By: #### L 501.080 #### [facility] [address] [place], [address] RDW SD Normal 35.1-43.9 [facility] Comment on above: Result Comment: Canc elled via OM: Order cancelled - Patient discharged Performed By: #### L 501.080 #### [facility] [address] [place], [address] WBC Normal 4.4-11.0 [facility] Comment on above: Result Comment: Canc elled via OM: Order cancelled - Patient discharged Performed By: #### L 501.080 #### [facility] [address] [place], [address] Basic Metabolic Profile (BMP )on 12-18-2024 BUN Normal 4-19 [facility] Comment on above: Result Comment: Canc elled via OM: Order cancelled - Patient discharged Performed By: #### L 501.080 #### [facility] [address] [place], [address] BUN/CRE Normal 10-20 [facility] Comment on above: Result Comment: Canc elled via OM: Order cancelled - Patient discharged Performed By: #### L 501.080 #### [facility] [address] [place], [address] Calcium Normal 7.6-11.0 [facility] Comment on above: Result Comment: Canc elled via OM: Order cancelled - Patient discharged Performed By: #### L 501.080 #### [facility] [address] [place], [address] CL Normal 98-108 [facility] Comment on above: Result Comment: Canc elled via OM: Order cancelled - Patient discharged Performed By: #### L 501.080 #### [facility] [address] [place], [address] CO2 Normal 21.0-32.0 [facility] Comment on above: Result Comment: Canc elled via OM: Order cancelled - Patient discharged Performed By: #### L 501.080 #### [facility] [address] [place], [address] CREAT,SERUM Normal 0.70-1.20 [facility] Comment on above: Result Comment: Canc elled via OM: Order cancelled - Patient discharged Performed By: #### L 501.080 #### [facility] [address] [place], [address] eGFR Normal >60 [facility] Comment on above: Result Comment: Canc elled via OM: Order cancelled - Patient discharged Performed By: #### L 501.080 #### [facility] [address] [place], [address] GAP Normal 5-15 [facility] Comment on above: Result Comment: Canc elled via OM: Order cancelled - Patient discharged Performed By: #### L 501.080 #### [facility] [address] [place], [address] GLU Normal 70-99 [facility] Comment on above: Result Comment: Canc elled via OM: Order cancelled - Patient discharged Performed By: #### L 501.080 #### [facility] [address] [place], [address] Potassium Normal 3.3-5.1 [facility] Comment on above: Result Comment: Canc elled via OM: Order cancelled - Patient discharged Performed By: #### L 501.080 #### [facility] [address] [place], [address] Basic Metabolic Profile (BMP) Normal 133-145 [facility] Comment on above: Result Comment: Canc elled via OM: Order cancelled - Patient discharged Performed By: #### L 501.080 #### [facility] [address] [place], [address] CBC W/Diff, Automatedon 08-1 -2024 Absolute Neut Normal 2.0-7.7 [facility] Comment on above: Result Comment: Canc elled via OM: Order cancelled - Patient discharged Performed By: #### L 501.080 #### [facility] [address] [place], [address] HCT Normal 40-54 [facility] Comment on above: Result Comment: Canc elled via OM: Order cancelled - Patient discharged Performed By: #### L 501.080 #### [facility] [address] [place], [address] HGB Normal 13.0-16.5 [facility] Comment on above: Result Comment: Canc elled via OM: Order cancelled - Patient discharged Performed By: #### L 501.080 #### [facility] [address] [place], [address] MCH Normal 27.0-32.0 [facility] Comment on above: Result Comment: Canc elled via OM: Order cancelled - Patient discharged Performed By: #### L 501.080 #### [facility] [address] [place], [address] MCHC Normal 32-36 [facility] Comment on above: Result Comment: Canc elled via OM: Order cancelled - Patient discharged Performed By: #### L 501.080 #### [facility] [address] [place], [address] MCV Normal 80-94 [facility] Comment on above: Result Comment: Canc elled via OM: Order cancelled - Patient discharged Performed By: #### L 501.080 #### [facility] [address] [place], [address] NEUT% Normal 47-70 [facility] Comment on above: Result Comment: Canc elled via OM: Order cancelled - Patient discharged Performed By: #### L 501.080 #### [facility] [address] [place], [address] PLT Normal 150-450 [facility] Comment on above: Result Comment: Canc elled via OM: Order cancelled - Patient discharged Performed By: #### L 501.080 #### [facility] [address] [place], [address] RBC Normal 4.6-6.2 [facility] Comment on above: Result Comment: Canc elled via OM: Order cancelled - Patient discharged Performed By: #### L 501.080 #### [facility] [address] [place], [address] RDW CV Normal 11.6-14.6 [facility] Comment on above: Result Comment: Canc elled via OM: Order cancelled - Patient discharged Performed By: #### L 501.080 #### [facility] [address] [place], [address] RDW SD Normal 35.1-43.9 [facility] Comment on above: Result Comment: Canc elled via OM: Order cancelled - Patient discharged Performed By: #### L 501.080 #### [facility] [address] [place], [address] WBC Normal 4.4-11.0 [facility] Comment on above: Result Comment: Canc elled via OM: Order cancelled - Patient discharged Performed By: #### L 501.080 #### [facility] [address] [place], [address] Basic Metabolic Profile (BMP )on 12-11-2024 BUN Normal 4-19 [facility] Comment on above: Result Comment: Canc elled via OM: Order cancelled - Patient discharged Performed By: #### L 501.080 #### [facility] [address] [place], [address] BUN/CRE Normal 10-20 [facility] Comment on above: Result Comment: Canc elled via OM: Order cancelled - Patient discharged Performed By: #### L 501.080 #### [facility] [address] [place], [address] Calcium Normal 7.6-11.0 [facility] Comment on above: Result Comment: Canc elled via OM: Order cancelled - Patient discharged Performed By: #### L 501.080 #### [facility] [address] [place], [address] CL Normal 98-108 [facility] Comment on above: Result Comment: Canc elled via OM: Order cancelled - Patient discharged Performed By: #### L 501.080 #### [facility] [address] [place], [address] CO2 Normal 21.0-32.0 [facility] Comment on above: Result Comment: Canc elled via OM: Order cancelled - Patient discharged Performed By: #### L 501.080 #### [facility] [address] [place], [address] CREAT,SERUM Normal 0.70-1.20 [facility] Comment on above: Result Comment: Canc elled via OM: Order cancelled - Patient discharged Performed By: #### L 501.080 #### [facility] [address] [place], [address] eGFR Normal >60 [facility] Comment on above: Result Comment: Canc elled via OM: Order cancelled - Patient discharged Performed By: #### L 501.080 #### [facility] [address] [place], [address] GAP Normal 5-15 [facility] Comment on above: Result Comment: Canc elled via OM: Order cancelled - Patient discharged Performed By: #### L 501.080 #### [facility] [address] [place], [address] GLU Normal 70-99 [facility] Comment on above: Result Comment: Canc elled via OM: Order cancelled - Patient discharged Performed By: #### L 501.080 #### [facility] [address] [place], [address] Potassium Normal 3.3-5.1 [facility] Comment on above: Result Comment: Canc elled via OM: Order cancelled - Patient discharged Performed By: #### L 501.080 #### [facility] [address] [place], [address] Basic Metabolic Profile (BMP) Normal 133-145 [facility] Comment on above: Result Comment: Canc elled via OM: Order cancelled - Patient discharged Performed By: #### L 501.080 #### [facility] [address] [place], [address] CBC W/Diff, Automatedon 08-0 -2024 Absolute Neut Normal 2.0-7.7 [facility] Comment on above: Result Comment: Canc elled via OM: Order cancelled - Patient discharged Performed By: #### L 501.080 #### [facility] [address] [place], [address] HCT Normal 40-54 [facility] Comment on above: Result Comment: Canc elled via OM: Order cancelled - Patient discharged Performed By: #### L 501.080 #### [facility] [address] [place], [address] HGB Normal 13.0-16.5 [facility] Comment on above: Result Comment: Canc elled via OM: Order cancelled - Patient discharged Performed By: #### L 501.080 #### [facility] [address] [place], [address] MCH Normal 27.0-32.0 [facility] Comment on above: Result Comment: Canc elled via OM: Order cancelled - Patient discharged Performed By: #### L 501.080 #### [facility] [address] [place], [address] MCHC Normal 32-36 [facility] Comment on above: Result Comment: Canc elled via OM: Order cancelled - Patient discharged Performed By: #### L 501.080 #### [facility] [address] [place], [address] MCV Normal 80-94 [facility] Comment on above: Result Comment: Canc elled via OM: Order cancelled - Patient discharged Performed By: #### L 501.080 #### [facility] [address] [place], [address] NEUT% Normal 47-70 [facility] Comment on above: Result Comment: Canc elled via OM: Order cancelled - Patient discharged Performed By: #### L 501.080 #### [facility] [address] [place], [address] PLT Normal 150-450 [facility] Comment on above: Result Comment: Canc elled via OM: Order cancelled - Patient discharged Performed By: #### L 501.080 #### [facility] [address] [place], [address] RBC Normal 4.6-6.2 [facility] Comment on above: Result Comment: Canc elled via OM: Order cancelled - Patient discharged Performed By: #### L 501.080 #### [facility] [address] [place], [address] RDW CV Normal 11.6-14.6 [facility] Comment on above: Result Comment: Canc elled via OM: Order cancelled - Patient discharged Performed By: #### L 501.080 #### [facility] [address] [place], [address] RDW SD Normal 35.1-43.9 [facility] Comment on above: Result Comment: Canc elled via OM: Order cancelled - Patient discharged Performed By: #### L 501.080 #### [facility] [address] [place], [address] WBC Normal 4.4-11.0 [facility] Comment on above: Result Comment: Canc elled via OM: Order cancelled - Patient discharged Performed By: #### L 501.080 #### [facility] [address] [place], [address] Basic Metabolic Profile (BMP )on 12-04-2024 BUN Normal 4-19 [facility] Comment on above: Result Comment: Canc elled via OM: Order cancelled - Patient discharged Performed By: #### L 400.0001, M100.2200 #### [facility] [address] [place], [address] BUN/CRE Normal 10-20 [facility] Comment on above: Result Comment: Canc elled via OM: Order cancelled - Patient discharged Performed By: #### L 400.0001, .2199 #### [facility] [address] [place], [address] Calcium Normal 7.6-11.0 [facility] Comment on above: Result Comment: Canc elled via OM: Order cancelled - Patient discharged Performed By: #### L 400.0001, #### [facility] [address] [place], [address] CL Normal 98-108 [facility] Comment on above: Result Comment: Canc elled via OM: Order cancelled - Patient discharged Performed By: #### L 400.0001, #### [facility] [address] [place], [address] CO2 Normal 21.0-32.0 [facility] Comment on above: Result Comment: Canc elled via OM: Order cancelled - Patient discharged Performed By: #### L 400.0001, #### [facility] [address] [place], [address] CREAT,SERUM Normal 0.70-1.20 [facility] Comment on above: Result Comment: Canc elled via OM: Order cancelled - Patient discharged Performed By: #### L 400.0001, .2199 #### [facility] [address] [place], [address] eGFR Normal >60 [facility] Comment on above: Result Comment: Canc elled via OM: Order cancelled - Patient discharged Performed By: #### L 400.0001, .2199 #### [facility] [address] [place], [address] GAP Normal 5-15 [facility] Comment on above: Result Comment: Canc elled via OM: Order cancelled - Patient discharged Performed By: #### L 400.0001, M100.2200 #### [facility] [address] [place], [address] GLU Normal 70-99 [facility] Comment on above: Result Comment: Canc elled via OM: Order cancelled - Patient discharged Performed By: #### L 400.0001, M100.2200 #### [facility] [address] [place], [address] Potassium Normal 3.3-5.1 [facility] Comment on above: Result Comment: Canc elled via OM: Order cancelled - Patient discharged Performed By: #### L 400.0001, M100.0 #### [facility] [address] [place], [address] Basic Metabolic Profile (BMP) Normal 133-145 [facility] Comment on above: Result Comment: Canc elled via OM: Order cancelled - Patient discharged Performed By: #### L 400.0001, M100.0 #### [facility] [address] [place], [address] CBC W/Diff, Automatedon 08-0 -2024 Absolute Neut Normal 2.0-7.7 [facility] Comment on above: Result Comment: Canc elled via OM: Order cancelled - Patient discharged Performed By: #### L 400.0001, M100.2200 #### [facility] [address] [place], [address] HCT Normal 40-54 [facility] Comment on above: Result Comment: Canc elled via OM: Order cancelled - Patient discharged Performed By: #### L 400.0001, M100.2200 #### [facility] [address] [place], [address] HGB Normal 13.0-16.5 [facility] Comment on above: Result Comment: Canc elled via OM: Order cancelled - Patient discharged Performed By: #### L 400.0001, M100.0 #### [facility] [address] [place], [address] MCH Normal 27.0-32.0 [facility] Comment on above: Result Comment: Canc elled via OM: Order cancelled - Patient discharged Performed By: #### L 400.0001, M100.0 #### [facility] [address] [place], [address] MCHC Normal 32-36 [facility] Comment on above: Result Comment: Canc elled via OM: Order cancelled - Patient discharged Performed By: #### L 400.0001, M100.0 #### [facility] [address] [place], [address] MCV Normal 80-94 [facility] Comment on above: Result Comment: Canc elled via OM: Order cancelled - Patient discharged Performed By: #### L 400.0001, M100.0 #### [facility] [address] [place], [address] NEUT% Normal 47-70 [facility] Comment on above: Result Comment: Canc elled via OM: Order cancelled - Patient discharged Performed By: #### L 400.0001, M100.0 #### [facility] [address] [place], [address] PLT Normal 150-450 [facility] Comment on above: Result Comment: Canc elled via OM: Order cancelled - Patient discharged Performed By: #### L 400.0001, M100.2200 #### [facility] [address] [place], [address] RBC Normal 4.6-6.2 [facility] Comment on above: Result Comment: Canc elled via OM: Order cancelled - Patient discharged Performed By: #### L 400.0001, M100.2200 #### [facility] [address] [place], [address] RDW CV Normal 11.6-14.6 [facility] Comment on above: Result Comment: Canc elled via OM: Order cancelled - Patient discharged Performed By: #### L 400.0001, M100.2200 #### [facility] [address] [place], [address] RDW SD Normal 35.1-43.9 [facility] Comment on above: Result Comment: Canc elled via OM: Order cancelled - Patient discharged Performed By: #### L 400.0001, M100.2200 #### [facility] [address] [place], [address] WBC Normal 4.4-11.0 [facility] Comment on above: Result Comment: Canc elled via OM: Order cancelled - Patient discharged Performed By: #### L 400.0001, M100.2200 #### [facility] [address] [place], [address] Basic Metabolic Profile (BMP )on 11-27-2024 BUN Normal 4-19 [facility] Comment on above: Result Comment: Canc elled via OM: Order cancelled - Patient discharged Performed By: #### L 501.080 #### [facility] [address] [place], [address] BUN/CRE Normal 10-20 [facility] Comment on above: Result Comment: Canc elled via OM: Order cancelled - Patient discharged Performed By: #### L 501.080 #### [facility] [address] [place], [address] Calcium Normal 7.6-11.0 [facility] Comment on above: Result Comment: Canc elled via OM: Order cancelled - Patient discharged Performed By: #### L 501.080 #### [facility] [address] [place], [address] CL Normal 98-108 [facility] Comment on above: Result Comment: Canc elled via OM: Order cancelled - Patient discharged Performed By: #### L 501.080 #### [facility] [address] [place], [address] CO2 Normal 21.0-32.0 [facility] Comment on above: Result Comment: Canc elled via OM: Order cancelled - Patient discharged Performed By: #### L 501.080 #### [facility] [address] [place], [address] CREAT,SERUM Normal 0.70-1.20 [facility] Comment on above: Result Comment: Canc elled via OM: Order cancelled - Patient discharged Performed By: #### L 501.080 #### [facility] [address] [place], [address] eGFR Normal >60 [facility] Comment on above: Result Comment: Canc elled via OM: Order cancelled - Patient discharged Performed By: #### L 501.080 #### [facility] [address] [place], [address] GAP Normal 5-15 [facility] Comment on above: Result Comment: Canc elled via OM: Order cancelled - Patient discharged Performed By: #### L 501.080 #### [facility] [address] [place], [address] GLU Normal 70-99 [facility] Comment on above: Result Comment: Canc elled via OM: Order cancelled - Patient discharged Performed By: #### L 501.080 #### [facility] [address] [place], [address] Potassium Normal 3.3-5.1 [facility] Comment on above: Result Comment: Canc elled via OM: Order cancelled - Patient discharged Performed By: #### L 501.080 #### [facility] [address] [place], [address] Basic Metabolic Profile (BMP) Normal 133-145 [facility] Comment on above: Result Comment: Canc elled via OM: Order cancelled - Patient discharged Performed By: #### L 501.080 #### [facility] [address] [place], [address] CBC W/Diff, Automatedon 07-2 -2024 Absolute Neut Normal 2.0-7.7 [facility] Comment on above: Result Comment: Canc elled via OM: Order cancelled - Patient discharged Performed By: #### L 501.080 #### [facility] [address] [place], [address] HCT Normal 40-54 [facility] Comment on above: Result Comment: Canc elled via OM: Order cancelled - Patient discharged Performed By: #### L 501.080 #### [facility] [address] [place], [address] HGB Normal 13.0-16.5 [facility] Comment on above: Result Comment: Canc elled via OM: Order cancelled - Patient discharged Performed By: #### L 501.080 #### [facility] [address] [place], [address] MCH Normal 27.0-32.0 [facility] Comment on above: Result Comment: Canc elled via OM: Order cancelled - Patient discharged Performed By: #### L 501.080 #### [facility] [address] [place], [address] MCHC Normal 32-36 [facility] Comment on above: Result Comment: Canc elled via OM: Order cancelled - Patient discharged Performed By: #### L 501.080 #### [facility] [address] [place], [address] MCV Normal 80-94 [facility] Comment on above: Result Comment: Canc elled via OM: Order cancelled - Patient discharged Performed By: #### L 501.080 #### [facility] [address] [place], [address] NEUT% Normal 47-70 [facility] Comment on above: Result Comment: Canc elled via OM: Order cancelled - Patient discharged Performed By: #### L 501.080 #### [facility] [address] [place], [address] PLT Normal 150-450 [facility] Comment on above: Result Comment: Canc elled via OM: Order cancelled - Patient discharged Performed By: #### L 501.080 #### [facility] [address] [place], [address] RBC Normal 4.6-6.2 [facility] Comment on above: Result Comment: Canc elled via OM: Order cancelled - Patient discharged Performed By: #### L 501.080 #### [facility] [address] [place], [address] RDW CV Normal 11.6-14.6 [facility] Comment on above: Result Comment: Canc elled via OM: Order cancelled - Patient discharged Performed By: #### L 501.080 #### [facility] [address] [place], [address] RDW SD Normal 35.1-43.9 [facility] Comment on above: Result Comment: Canc elled via OM: Order cancelled - Patient discharged Performed By: #### L 501.080 #### [facility] [address] [place], [address] WBC Normal 4.4-11.0 [facility] Comment on above: Result Comment: Canc elled via OM: Order cancelled - Patient discharged Performed By: #### L 501.080 #### [facility] [address] [place], [address] Basic Metabolic Profile (BMP )on 11-20-2024 BUN Normal 4-19 [facility] Comment on above: Result Comment: Canc elled via OM: Order cancelled - Patient discharged Performed By: #### L 501.080 #### [facility] [address] [place], [address] BUN/CRE Normal 10-20 [facility] Comment on above: Result Comment: Canc elled via OM: Order cancelled - Patient discharged Performed By: #### L 501.080 #### [facility] [address] [place], [address] Calcium Normal 7.6-11.0 [facility] Comment on above: Result Comment: Canc elled via OM: Order cancelled - Patient discharged Performed By: #### L 501.080 #### [facility] [address] [place], [address] CL Normal 98-108 [facility] Comment on above: Result Comment: Canc elled via OM: Order cancelled - Patient discharged Performed By: #### L 501.080 #### [facility] [address] [place], [address] CO2 Normal 21.0-32.0 [facility] Comment on above: Result Comment: Canc elled via OM: Order cancelled - Patient discharged Performed By: #### L 501.080 #### [facility] [address] [place], [address] CREAT,SERUM Normal 0.70-1.20 [facility] Comment on above: Result Comment: Canc elled via OM: Order cancelled - Patient discharged Performed By: #### L 501.080 #### [facility] [address] [place], [address] eGFR Normal >60 [facility] Comment on above: Result Comment: Canc elled via OM: Order cancelled - Patient discharged Performed By: #### L 501.080 #### [facility] [address] [place], [address] GAP Normal 5-15 [facility] Comment on above: Result Comment: Canc elled via OM: Order cancelled - Patient discharged Performed By: #### L 501.080 #### [facility] [address] [place], [address] GLU Normal 70-99 [facility] Comment on above: Result Comment: Canc elled via OM: Order cancelled - Patient discharged Performed By: #### L 501.080 #### [facility] [address] [place], [address] Potassium Normal 3.3-5.1 [facility] Comment on above: Result Comment: Canc elled via OM: Order cancelled - Patient discharged Performed By: #### L 501.080 #### [facility] [address] [place], [address] Basic Metabolic Profile (BMP) Normal 133-145 [facility] Comment on above: Result Comment: Canc elled via OM: Order cancelled - Patient discharged Performed By: #### L 501.080 #### [facility] [address] [place], [address] CBC W/Diff, Automatedon 07-1 Absolute Neut Normal 2.0-7.7 [facility] Comment on above: Result Comment: Canc elled via OM: Order cancelled - Patient discharged Performed By: #### L 501.080 #### [facility] [address] [place], [address] HCT Normal 40-54 [facility] Comment on above: Result Comment: Canc elled via OM: Order cancelled - Patient discharged Performed By: #### L 501.080 #### [facility] [address] [place], [address] HGB Normal 13.0-16.5 [facility] Comment on above: Result Comment: Canc elled via OM: Order cancelled - Patient discharged Performed By: #### L 501.080 #### [facility] [address] [place], [address] MCH Normal 27.0-32.0 [facility] Comment on above: Result Comment: Canc elled via OM: Order cancelled - Patient discharged Performed By: #### L 501.080 #### [facility] [address] [place], [address] MCHC Normal 32-36 [facility] Comment on above: Result Comment: Canc elled via OM: Order cancelled - Patient discharged Performed By: #### L 501.080 #### [facility] [address] [place], [address] MCV Normal 80-94 [facility] Comment on above: Result Comment: Canc elled via OM: Order cancelled - Patient discharged Performed By: #### L 501.080 #### [facility] [address] [place], [address] NEUT% Normal 47-70 [facility] Comment on above: Result Comment: Canc elled via OM: Order cancelled - Patient discharged Performed By: #### L 501.080 #### [facility] [address] [place], [address] PLT Normal 150-450 [facility] Comment on above: Result Comment: Canc elled via OM: Order cancelled - Patient discharged Performed By: #### L 501.080 #### [facility] [address] [place], [address] RBC Normal 4.6-6.2 [facility] Comment on above: Result Comment: Canc elled via OM: Order cancelled - Patient discharged Performed By: #### L 501.080 #### [facility] [address] [place], [address] RDW CV Normal 11.6-14.6 [facility] Comment on above: Result Comment: Canc elled via OM: Order cancelled - Patient discharged Performed By: #### L 501.080 #### [facility] [address] [place], [address] RDW SD Normal 35.1-43.9 [facility] Comment on above: Result Comment: Canc elled via OM: Order cancelled - Patient discharged Performed By: #### L 501.080 #### [facility] [address] [place], [address] WBC Normal 4.4-11.0 [facility] Comment on above: Result Comment: Canc elled via OM: Order cancelled - Patient discharged Performed By: #### L 501.080 #### [facility] [address] [place], [address] Absolute lymphocyte countOrd ered By: Juan Reed on 11-13-2024 Lymphocytes Auto (Unsp spec) [#/Vol] 1.50 10*3/uL 0.83-4.51 [facility] Absolute neutrophil countOrd ered By: Juan Reed on 11-13-2024 Neutrophils (Bld) [#/Vol] 2.5 10*3/uL 2.0-7.7 [facility] Anion gap in Serum or Plasma Ordered By: Juan Reed on 11-13-2024 Anion gap [Moles/Vol] 8 mmol/L 5-15 [facility] Automated lymphocyte count a s percentage of total leukocytesOrdered By: Juan Reed on 11-13-2024 Lymphocytes/100 WBC Auto (Unsp spec) 31.3 % 19-41 [facility] BUN/creatinine ratioOrdered By: Juan Reed on 11-13-2024 Urea nitrogen/Creatinine [Mass ratio] 21.8 mg/mg High 10-20 [facility] Basic Metabolic Profile (BMP )on 11-13-2024 BUN/CRE 21.8 RATIO High 10-20 [facility] Comment on above: Performed By: #### L 501.080 #### [facility] [address] [place], [address] Calcium [Mass/Vol] 9.2 mg/dL Normal 7.6-11.0 [facility] Comment on above: Performed By: #### L 501.080 #### [facility] [address] [place], [address] Chloride [Moles/Vol] 94 mmol/L Low 98-108 [facility] Comment on above: Performed By: #### L 501.080 #### [facility] [address] [place], [address] CO2 [Moles/Vol] 27.1 mmol/L Normal 21.0-32.0 [facility] Comment on above: Performed By: #### L 501.080 #### [facility] [address] [place], [address] Creatinine [Mass/Vol] 0.65 mg/dL Low 0.70-1.20 [facility] Comment on above: Performed By: #### L 501.080 #### [facility] [address] [place], [address] ECRCL 63.12 ml/min Normal 50-250 [facility] Comment on above: Performed By: #### L 501.080 #### [facility] [address] [place], [address] GAP 8 Normal 5-15 [facility] Comment on above: Performed By: #### L 501.080 #### [facility] [address] [place], [address] GFR/1.73 sq M.predicted among non-blacks MDRD (S/P/Bld) [Vol rate/Area] 92 mL/min/{1.73_m2} Normal >60 [facility] Comment on above: Result Comment: mL/m in/1.73m2 CKD-EPI Creatinine Equation (2020) Performed By: #### L 501.080 #### [facility] [address] [place], [address] Glucose [Mass/Vol] 122 mg/dL High 70-99 [facility] Comment on above: Performed By: #### L 501.080 #### [facility] [address] [place], [address] Potassium [Moles/Vol] 3.9 mmol/L Normal 3.3-5.1 [facility] Comment on above: Performed By: #### L 501.080 #### [facility] [address] [place], [address] Sodium [Moles/Vol] 128 mmol/L Low 133-145 [facility] Comment on above: Performed By: #### L 501.080 #### [facility] [address] [place], [address] Urea nitrogen [Mass/Vol] 14 mg/dL Normal 4-19 [facility] Comment on above: Performed By: #### L 501.080 #### [facility] [address] [place], [address] Basophil percentageOrdered B y: Juan Willisok on 11-13-2024 Basophils/100 WBC (Bld) 0.8 % 0-1 [facility] Bedside Glucoseon 11-13-2024 FINGERSTICK GLU 137 mg/dL High 74-106 [facility] Comment on above: Result Comment: PERCY READ OF PATIENT CARE PER NURSING PROTOCOL Performed By: #### L 501.080 #### [facility] [address] [place], [address] CBC W/Diff, Automatedon 07-2024 Absolute Lymph 1.50 X10 3/uL Normal 0.83-4.51 [facility] Comment on above: Performed By: #### L [id number] #### [facility] [address] [place], [address] Absolute Neut 2.5 X10 3/uL Normal 2.0-7.7 [facility] Comment on above: Performed By: #### L 501.080 #### [facility] [address] [place], [address] Basophils/100 WBC (Bld) 0.8 % Normal 0-1 [facility] Comment on above: Performed By: #### L 501.080 #### [facility] [address] [place], [address] Eosinophils/100 WBC (Bld) 4.6 % Normal 0-5 [facility] Comment on above: Performed By: #### L 501.080 #### [facility] [address] [place], [address] Erythrocyte distribution width (RBC) [Ratio] 14.4 % Normal 11.6-14.6 [facility] Comment on above: Performed By: #### L 501.080 #### [facility] [address] [place], [address] Hematocrit (Bld) [Volume fraction] 32.3 % Low 40-54 [facility] Comment on above: Performed By: #### L 501.080 #### [facility] [address] [place], [address] Hemoglobin (Bld) [Mass/Vol] 10.9 g/dL Low 13.0-16.5 [facility] Comment on above: Performed By: #### L 501.080 #### [facility] [address] [place], [address] IG% 0.600 Normal 0.0-0.9 [facility] Comment on above: Result Comment: IG% - Immature Granulocytes (promyelocytes, myelocytes and metamyelocytes) > 1% indicates that a LEFT SHIFT is Present. Performed By: #### L 501.080 #### [facility] [address] [place], [address] Lymphocytes/100 WBC (Bld) 31.3 % Normal 19-41 [facility] Comment on above: Performed By: #### L 501.080 #### [facility] [address] [place], [address] MCH (RBC) [Entitic mass] 31.1 pg Normal 27.0-32.0 [facility] Comment on above: Performed By: #### L 501.080 #### [facility] [address] [place], [address] MCHC (RBC) [Mass/Vol] 33.7 g/dL Normal 32-36 [facility] Comment on above: Performed By: #### L 501.080 #### [facility] [address] [place], [address] MCV (RBC) [Entitic vol] 92.0 fL Normal 80-94 [facility] Comment on above: Performed By: #### L 501.080 #### [facility] [address] [place], [address] Monocytes/100 WBC (Bld) 9.8 % Normal 0-10 [facility] Comment on above: Performed By: #### L 501.080 #### [facility] [address] [place], [address] Neutrophils/100 WBC (Bld) 52.9 % Normal 47-70 [facility] Comment on above: Performed By: #### L 501.080 #### [facility] [address] [place], [address] Nucleated RBC (Bld) [#/Vol] 0 10*3/uL Normal 0-5 [facility] Comment on above: Performed By: #### L 501.080 #### [facility] [address] [place], [address] Platelet mean volume (Bld) [Entitic vol] 9.9 fL Normal 6.2-12.0 [facility] Comment on above: Performed By: #### L 501.080 #### [facility] [address] [place], [address] Platelets (Bld) [#/Vol] 253 10*3/uL Normal 150-450 [facility] Comment on above: Performed By: #### L 501.080 #### [facility] [address] [place], [address] RBC (Bld) [#/Vol] 3.51 10*6/uL Low 4.6-6.2 [facility] Comment on above: Performed By: #### L 501.080 #### [facility] [address] [place], [address] RDW SD 47.9 fl High 35.1-43.9 [facility] Comment on above: Performed By: #### L 501.080 #### [facility] [address] [place], [address] WBC (Bld) [#/Vol] 4.8 10*3/uL Normal 4.4-11.0 [facility] Comment on above: Performed By: #### L 501.080 #### [facility] [address] [place], [address] Carbon dioxide, total [Moles /volume] in Central venous bloodOrdered By: Juan Reed on 11-13-2024 CO2 [Moles/Vol] 27.1 mmol/L 21.0-32.0 [facility] Chloride assayOrdered By: Jakob Reed on 11-13-2024 Chloride [Moles/Vol] 94 mmol/L Low 98-108 [facility] Eosinophil percentageOrdered By: Juan Reed on 11-13-2024 Eosinophils/100 WBC (Bld) 4.6 % 0-5 [facility] Erythrocyte distribution wid th ratioOrdered By: Juan Reed on 11-13-2024 Erythrocyte distribution width (RBC) [Ratio] 14.4 % 11.6-14.6 [facility] Erythrocyte distribution wid th standard deviationOrdered By: Juan Reed 11-13-2024 Erythrocyte distribution width (RBC) [Ratio] 47.9 fl High 35.1-43.9 [facility] Glomerular filtration rate ( GFR) estimation/1.73 sq m using serum, plasma, or whole bOrdered By: Juan Reed on 11-13-2024 GFR/1.73 sq M.predicted among non-blacks MDRD (S/P/Bld) [Vol rate/Area] 92 mL/min/{1.73_m2} >60 [facility] Comment on above: mL/min/1.73m2 CKD-EP I Creatinine Equation (2020) [facility] deOrdered By: Juan Reed 11-13-2024 Glucose [Mass/Vol] 137 mg/dL High 74-106 [facility] Comment on above: MANAGEMENT OF PATIEN T CARE PER NURSING PROTOCOL Hematocrit Auto (Bld) [Volum e fraction]Ordered By: Juan Reed 11-13-2024 Hematocrit (Bld) [Volume fraction] 32.3 % Low 40-54 [facility] Hemoglobin measurementOrdere d By: Juan Reed 11-13-2024 Hemoglobin (Bld) [Mass/Vol] 10.9 g/dL Low 13.0-16.5 [facility] Immature granulocytes/100 WB C Auto (Bld)Ordered By: Juan Reed 11-13-2024 Immature granulocytes/100 WBC (Bld) 0.600 % 0.0-0.9 [facility] Comment on above: IG% - Immature Granu locytes (promyelocytes, myelocytes and metamyelocytes) > 1% indicates that a LEFT SHIFT is Present. MCV (mean corpuscular volume ) determinationOrdered By: Juan Reed on 11-13-2024 MCV (RBC) [Entitic vol] 92.0 fL 80-94 [facility] Mean corpuscular hemoglobin (MCH) determinationOrdered By: Juan Reed on 11-13-2024 MCH (RBC) [Entitic mass] 31.1 pg 27.0-32.0 [facility] Mean corpuscular hemoglobin concentration (MCHC) determinationOrdered By: Juan Reed on 11-13-2024 MCHC (RBC) [Mass/Vol] 33.7 g/dL 32-36 [facility] Mean platelet volume determi nationOrdered By: Juan Reed on 11-13-2024 Platelet mean volume (Bld) [Entitic vol] 9.9 fL 6.2-12.0 [facility] Monocyte percentageOrdered B y: Juan Reed on 11-13-2024 Monocytes/100 WBC (Bld) 9.8 % 0-10 [facility] Neutrophil percentageOrdered By: Juan Reed on 11-13-2024 Neutrophils/100 WBC (Bld) 52.9 % 47-70 [facility] Nucleated red blood cell per centageOrdered By: Juan Reed 11-13-2024 Nucleated RBC/100 WBC (Bld) [Ratio] 0 % 0-5 [facility] Osmolality, Serumon 11-14-19 25 OSMOLALITY,SER 278 mOsm/KG Low 280-301 [facility] Comment on above: Performed By: #### L [id number] #### [facility] [address], [place], [address] Osmolality, Urineon 11-14-19 25 OSMOLALITY,UR 406 mOsm/KG Normal [facility] Comment on above: Result Comment: Normal Urine Reference Ranges Random: 50 - 1200 mOsm/kg H20 depending on fluid intake Random: >850 mOsm/kg after 12 hour fluid restriction 24 hour: 300 - 900 mOsm/kg H2O Performed By: #### L 501.5500, L501.7400 #### [facility] [address] [place], [address] Platelet countOrdered By: Jakob Reed on 11-13-2024 Platelets (Bld) [#/Vol] 253 10*3/uL 150-450 [facility] Potassium measurement (mass/ volume)Ordered By: Juan Reed on 11-13-2024 Potassium (Unsp spec) [Mass/Vol] 3.9 mmol/L 3.3-5.1 [facility] RBC Auto (Bld) [#/Vol]Ordere d By: Juan Reed on 11-13-2024 RBC (Bld) [#/Vol] 3.51 10*6/uL Low 4.6-6.2 [facility] Serum creatinine measurement (mass/volume)Ordered By: Juan Reed on 11-13-2024 Creatinine [Mass/Vol] 0.65 mg/dL Low 0.70-1.20 [facility] Serum glucose measurement (m ass/volume)Ordered By: Juan Reed on 11-13-2024 Glucose [Mass/Vol] 122 mg/dL High 70-99 [facility] Serum or plasma calcium les urement (mass/volume)Ordered By: Juan Reed on 11-13-2024 Calcium [Mass/Vol] 9.2 mg/dL 7.6-11.0 [facility] Serum or plasma urea nitroge n measurement (mass/volume)Ordered By: Juan Reed on 11-13-2024 Urea nitrogen [Mass/Vol] 14 mg/dL 4-19 [facility] Sodium levelOrdered By: Juan Reed on 11-13-2024 Sodium [Moles/Vol] 128 mmol/L Low 133-145 [facility] Urine Sodiumon 11-13-2024 Sodium (U) [Moles/Vol] 51 mmol/L Normal Not Establ. [facility] Comment on above: Performed By: #### L 501.5500, L501.7400 #### [facility] [place], [address] White blood cell (WBC) count Ordered By: Juan Reed on 11-13-2024 WBC (Bld) [#/Vol] 4.8 10*3/uL 4.4-11.0 [facility] Bedside Glucoseon 11-12-2024 FINGERSTICK GLU 137 mg/dL High 74-106 [facility] Comment on above: Result Comment: PERCY GEMENT OF PATIENT CARE PER NURSING PROTOCOL Performed By: #### L 501.080 #### [facility] [address] [place], [place], [id number] Urine Cultureon 11-12-2024 URC Culture exhibits no growth. Normal [facility] Comment on above: Performed By: #### L 400.0001, [id number] #### [facility] [address] [place], [address] Amorphous sediment detection in urine sediment by light microscopyOrdered By: Juan Reed on 11-11-2024 Amorphous sediment LM Ql (Urine sed) 3+ [facility] Bedside Glucoseon 11-11-2024 FINGERSTICK GLU 124 mg/dL High 74-106 [facility] Comment on above: Result Comment: PERCY GEMENT OF PATIENT CARE PER NURSING PROTOCOL Performed By: #### L 400.0001, [id number] #### [facility] [address] [place], [place], [id number] Bilirubin Test strip Ql (U)O rdered By: Juan Reed on 11-11-2024 Bilirubin Ql (U) Negative Negative [facility] Calcium oxalate crystals det ection in urine sediment by light microscopyOrdered By: Juan Reed on 11-11-2024 Calcium oxalate crystals LM Ql (Urine sed) RARE /hpf [facility] Ketones Test strip Ql (U)Ord ered By: Juan Reed on 11-11-2024 Ketones Ql (U) Negative Negative [facility] Microscopic analysis of urin e for red blood cells (RBC)Ordered By: Juan Reed on 11-11-2024 Microscopic analysis of urine for red blood cells (RBC) > 100 SEEN /hpf 0-5 [facility] Mucus LM Ql (Urine sed)Order ed By: Juan Reed on 11-11-2024 Mucus Ql (Urine sed) 0 SEEN /hpf [facility] Nitrite Test strip Ql (U)Ord ered By: Juan Reed on 11-11-2024 Nitrite Ql (U) Negative Negative [facility] Protein Test strip Ql (U)Ord ered By: Juan Reed on 11-11-2024 Protein Ql (U) 30 mg/dl High Negative [facility] Squamous epithelial cells de tection in urine sediment by light microscopyOrdered By: Juan Reed on 11-11-2024 Epithelial cells.squamous LM Ql (Urine sed) 0 SEEN /hpf 0-5 [facility] Urinalysis, Completeon 11-11 AMORPHOUS 3+ Normal [facility] Comment on above: Order Comment: BENNY TER SPECIMEN Performed By: #### L 501.080 #### [facility] [address] [place], [address] CA OX CRYSTAL RARE Normal [facility] Comment on above: Order Comment: BENNY TER SPECIMEN Performed By: #### L [id number] #### [facility] [address] [place], [address] WBC 5-10 SEEN Normal 0-5 [facility] Comment on above: Order Comment: BENNY TER SPECIMEN Performed By: #### L 501.080 #### [facility] [address] [place], [address] RBC > 100 SEEN Normal 0-[address] [place] [address] Comment on above: Order Comment: BENNY TER SPECIMEN Performed By: #### L 501.080 #### [facility] [address] [place], [address] BACTERIA 0 SEEN Normal None Seen [facility] Comment on above: Order Comment: BENNY TER SPECIMEN Performed By: #### L 501.080 #### [facility] [address] [place], [address] EPI,SQUAMOUS 0 SEEN Normal 0-5 [facility] Comment on above: Order Comment: BENNY TER SPECIMEN Performed By: #### L [id number] #### [facility] [address] [place], [address] Mucus Ql (Urine sed) 0 SEEN Normal [facility] Comment on above: Order Comment: BENNY TER SPECIMEN Performed By: #### L 501.080 #### [facility] [address] [place], [address] Urine clarityOrdered By: Juan Reed on 11-11-2024 Clarity (U) Turbid Clear [facility] Urine color determinationOrd ered By: Juan Reed on 11-11-2024 Color (U) Yellow Yellow [facility] Urine glucose detectionOrder ed By: Juan Reed on 11-11-2024 Glucose Ql (U) Normal mg/dl Normal [facility] Urine leukocyte esterase det ection by dipstickOrdered By: Juan Reed on 11-11-2024 Leukocyte esterase Test strip Ql (U) 25 /ul High Negative [facility] Urine pHOrdered By: Juan Reed on 11-11-2024 pH (U) 7.0 [pH] 5.0 - 8.0 [facility] Urine sediment bacteria coun t by microscopy (number/high power field)Ordered By: Juan Reed on 11-11-2024 Bacteria LM.HPF (Urine sed) [#/Area] 0 /[HPF] None Seen [facility] Urine specific gravity measu rementOrdered By: Juan Reed on 11-11-2024 Specific gravity (U) [Rel density] 1.010 1.002-1.030 [facility] Urine urobilinogen measureme ntOrdered By: Juan Reed on 11-11-2024 Urobilinogen Ql (U) Normal mg/dl Normal [facility] White blood cell countOrdere d By: Jaun Reed on 11-11-2024 White blood cell count 5-10 SEEN /hpf 0-5 [facility] Bedside Glucoseon 11-10-2024 FINGERSTICK GLU 112 mg/dL High 74-106 [facility] Comment on above: Result Comment: PERCY READ OF PATIENT CARE PER NURSING PROTOCOL Performed By: #### L 501.080 #### [facility] [address] [place], [place], [id number] Bedside Glucoseon 11-09-2024 FINGERSTICK GLU 121 mg/dL High 74-106 [facility] Comment on above: Result Comment: PERCY GEMENT OF PATIENT CARE PER NURSING PROTOCOL Performed By: #### L 501.080 #### [facility] [address] [place], [address] Bedside Glucoseon 11-08-2024 FINGERSTICK GLU 112 mg/dL High 74-106 [facility] Comment on above: Result Comment: PERCY GEMENT OF PATIENT CARE PER NURSING PROTOCOL Performed By: #### L 501.080 #### [facility] [address] [place], [address] Bedside Glucoseon 11-07-2024 FINGERSTICK GLU 137 mg/dL High 74-106 [facility] Comment on above: Result Comment: PERCY GEMENT OF PATIENT CARE PER NURSING PROTOCOL Performed By: #### L 501.080 #### [facility] [address] [place], [address] Basic Metabolic Profile (BMP )on 11-06-2024 BUN/CRE 23.1 RATIO High 10-20 [facility] Comment on above: Performed By: #### L 501.080 #### [facility] [address] [place], [address] Calcium [Mass/Vol] 9.3 mg/dL Normal 7.6-11.0 [facility] Comment on above: Performed By: #### L 501.080 #### [facility] [address] [place], [address] Chloride [Moles/Vol] 99 mmol/L Normal 98-108 [facility] Comment on above: Performed By: #### L 501.080 #### [facility] [address] [place], [address] CO2 [Moles/Vol] 25.4 mmol/L Normal 21.0-32.0 [facility] Comment on above: Performed By: #### L 501.080 #### [facility] [address] [place], [address] Creatinine [Mass/Vol] 0.68 mg/dL Low 0.70-1.20 [facility] Comment on above: Performed By: #### L 501.080 #### [facility] [address] [place], [address] ECRCL 62.59 ml/min Normal 50-250 [facility] Comment on above: Performed By: #### L 501.080 #### [facility] [address] [place], [address] GAP 9 Normal 5-15 [facility] Comment on above: Performed By: #### L 501.080 #### [facility] [address] [place], [address] GFR/1.73 sq M.predicted among non-blacks MDRD (S/P/Bld) [Vol rate/Area] 91 mL/min/{1.73_m2} Normal >60 [facility] Comment on above: Result Comment: mL/m in/1.73m2 CKD-EPI Creatinine Equation (2020) Performed By: #### L 501.080 #### [facility] [address] [place], [address] Glucose [Mass/Vol] 139 mg/dL High 70-99 [facility] Comment on above: Performed By: #### L 501.080 #### [facility] [address] [place], [address] Potassium [Moles/Vol] 3.9 mmol/L Normal 3.3-5.1 [facility] Comment on above: Performed By: #### L 501.080 #### [facility] [address] [place], [address] Sodium [Moles/Vol] 134 mmol/L Normal 133-145 [facility] Comment on above: Performed By: #### L 501.080 #### [facility] [address] [place], [address] Urea nitrogen [Mass/Vol] 16 mg/dL Normal 4-19 [facility] Comment on above: Performed By: #### L [id number] #### [facility] [address] [place], [address] Bedside Glucoseon 11-06-2024 FINGERSTICK GLU 148 mg/dL High 74-106 [facility] Comment on above: Result Comment: PERCY READ OF PATIENT CARE PER NURSING PROTOCOL Performed By: #### L 501.080 #### [facility] [address] [place], [address] CBC W/Diff, Automatedon 07-0 Absolute Lymph 1.22 X10 3/uL Normal 0.83-4.51 [facility] Comment on above: Performed By: #### L 501.080 #### [facility] [address] [place], [address] Absolute Neut 5.5 X10 3/uL Normal 2.0-7.7 [facility] Comment on above: Performed By: #### L [id number] #### [facility] [address] [place], [address] Basophils/100 WBC (Bld) 0.7 % Normal 0-1 [facility] Comment on above: Performed By: #### L [id number] #### [facility] [address] [place], [address] Eosinophils/100 WBC (Bld) 1.6 % Normal 0-5 [facility] Comment on above: Performed By: #### L [id number] #### [facility] [address] [place], [address] Erythrocyte distribution width (RBC) [Ratio] 14.1 % Normal 11.6-14.6 [facility] Comment on above: Performed By: #### L [id number] #### [facility] [address] [place], [address] Hematocrit (Bld) [Volume fraction] 31.9 % Low 40-54 [facility] Comment on above: Performed By: #### L [id number] #### [facility] [address] [place], [address] Hemoglobin (Bld) [Mass/Vol] 10.8 g/dL Low 13.0-16.5 [facility] Comment on above: Performed By: #### L 501.080 #### [facility] [address] [place], [address] IG% 0.900 Normal 0.0-0.9 [facility] Comment on above: Result Comment: IG% - Immature Granulocytes (promyelocytes, myelocytes and metamyelocytes) > 1% indicates that a LEFT SHIFT is Present. Performed By: #### L 501.080 #### [facility] [address] [place], [place], [address] Lymphocytes/100 WBC (Bld) 16.4 % Low 19-41 [facility] Comment on above: Performed By: #### L 501.080 #### [facility] [address] [place], [address] MCH (RBC) [Entitic mass] 31.3 pg Normal 27.0-32.0 [facility] Comment on above: Performed By: #### L 501.080 #### [facility] [address] [place], [address] MCHC (RBC) [Mass/Vol] 33.9 g/dL Normal 32-36 [facility] Comment on above: Performed By: #### L 501.080 #### [facility] [address] [place], [address] MCV (RBC) [Entitic vol] 92.5 fL Normal 80-94 [facility] Comment on above: Performed By: #### L 501.080 #### [facility] [address] [place], [address] Monocytes/100 WBC (Bld) 6.2 % Normal 0-10 [facility] Comment on above: Performed By: #### L 501.080 #### [facility] [address] [place], [address] Neutrophils/100 WBC (Bld) 74.2 % High 47-70 [facility] Comment on above: Performed By: #### L 501.080 #### [facility] [address] [place], [address] Nucleated RBC (Bld) [#/Vol] 0 10*3/uL Normal 0-5 [facility] Comment on above: Performed By: #### L 501.080 #### [facility] [address] [place], [address] Platelet mean volume (Bld) [Entitic vol] 9.4 fL Normal 6.2-12.0 [facility] Comment on above: Performed By: #### L 501.080 #### [facility] [address] [place], [address] Platelets (Bld) [#/Vol] 360 10*3/uL Normal 150-450 [facility] Comment on above: Performed By: #### L 501.080 #### [facility] [address] [place], [address] RBC (Bld) [#/Vol] 3.45 10*6/uL Low 4.6-6.2 [facility] Comment on above: Performed By: #### L 501.080 #### [facility] [address] [place], [address] RDW SD 47.4 fl High 35.1-43.9 [facility] Comment on above: Performed By: #### L 501.080 #### [facility] [address] [place], [address] WBC (Bld) [#/Vol] 7.5 10*3/uL Normal 4.4-11.0 [facility] Comment on above: Performed By: #### L 501.080 #### [facility] [address] [place], [address] Bedside Glucoseon 11-05-2024 FINGERSTICK GLU 156 mg/dL High 74-106 [facility] Comment on above: Result Comment: PERCY GEMENT OF PATIENT CARE PER NURSING PROTOCOL Performed By: #### L 400.0001, M100.2200 #### [facility] [address] [place], [address] Bedside Glucoseon 11-04-2024 FINGERSTICK GLU 130 mg/dL High 74-106 [facility] Comment on above: Result Comment: PERCY GEMENT OF PATIENT CARE PER NURSING PROTOCOL Performed By: #### L 501.080 #### [facility] [address] [place], [address] Chest PA and Lateralon 11-04 Chest PA and Lateral [facility] [address] [place] [address] Chest PA and Lateral MR#: [id number] Acct: [id number] Name: TIM ADAMSON Rep #: [id number] : [id number] M [id number] From: Forest Isaac MD PCP: Rashmi Price, ELECTRICAL TEST TECHNICIAN-C Status: ADM IN Study: Chest PA and Lateral Date of Exam: 11/04/24 Exam# [id number] Ordering Dr: Juan Reed MD PROCEDURE: CHEST PA AND LATERAL 11/04/2024 REASON FOR EXAM: COUGH. TECHNIQUE: CHEST PA AND LATERAL COMPARISON: None. FINDINGS: The heart is enlarged. Left basilar linear opacity favoring scar or atelectasis. Developing infiltrate is possible. Trace bilateral pleural effusions. No pneumothorax. RAD/Chest PA and Lateral IMPRESSION: As above. Reading Location: [id number] CC: VALENTIN Price; Dr. 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 Normal [facility] Comment on above: Performed By: #### L 400.0001, .2199 #### [facility] [address] [place], [address] Urinalysis, Completeon 11-03 Mucus Ql (Urine sed) 1+ /hpf Normal [facility] Comment on above: Order Comment: COLOR OF URINE MAY AFFECT DIPSTICK RESULTS. Microscopic field is filled. Other elements may be obscured. CATHETER SPECIMEN Performed By: #### L 400.0001, .2199 #### [facility] [address] [place], [address] WBC 5-10 SEEN Normal 0-5 [facility] Comment on above: Order Comment: COLOR OF URINE MAY AFFECT DIPSTICK RESULTS. Microscopic field is filled. Other elements may be obscured. CATHETER SPECIMEN Performed By: #### L 400.0001, #### [facility] [address] [place], [address] BACTERIA 1+ /hpf Normal None Seen [facility] Comment on above: Order Comment: COLOR OF URINE MAY AFFECT DIPSTICK RESULTS. Microscopic field is filled. Other elements may be obscured. CATHETER SPECIMEN Performed By: #### L 400.0001, M1.2199 #### [facility] [address] [place], [address] RBC > 100 SEEN Normal 0-5 [facility] Comment on above: Order Comment: COLOR OF URINE MAY AFFECT DIPSTICK RESULTS. Microscopic field is filled. Other elements may be obscured. CATHETER SPECIMEN Performed By: #### L 400.0001, M1.2199 #### [facility] [address] [place], [address] EPI,SQUAMOUS 0 SEEN Normal 0-5 [facility] Comment on above: Order Comment: COLOR OF URINE MAY AFFECT DIPSTICK RESULTS. Microscopic field is filled. Other elements may be obscured. CATHETER SPECIMEN Performed By: #### L 400.0001, M100.2200 #### [facility] [address] [place], [address] Urine cultureOrdered By: Juan Reed on 11-03-2024 Bacteria identified Cx Nom (U) Culture exhibits no growth. [facility] Bedside Glucoseon 11-02-2024 FINGERSTICK GLU 156 mg/dL High 74-106 [facility] Comment on above: Result Comment: PERCY GEMENT OF PATIENT CARE PER NURSING PROTOCOL Performed By: #### L 501.080 #### [facility] [address] [place], [address] Bedside Glucoseon 11-01-2024 FINGERSTICK GLU 178 mg/dL High 74-106 [facility] Comment on above: Result Comment: PERCY GEMENT OF PATIENT CARE PER NURSING PROTOCOL Performed By: #### L 501.080 #### [facility] [address] [place], [address] Bedside Glucoseon 10-31-2024 FINGERSTICK GLU 184 mg/dL High 74-106 [facility] Comment on above: Result Comment: PERCY GEMENT OF PATIENT CARE PER NURSING PROTOCOL Performed By: #### L 501.080 #### [facility] [address] [place], [address] Calculated very low density lipoprotein (VLDL) cholesterol measurementOrdered By: Juan Reed on 10-31-2024 Calculated very low density lipoprotein (VLDL) cholesterol measurement 16 mg/dL 5-40 [facility] Hemoglobin A1con 10-31-2024 HbA1c (Bld) [Mass fraction] 7.1 % High <=5.6 [facility] Comment on above: Result Comment: Norm al < 5.7 % Prediabetic 5.7 - 6.4 % Diabetic >or= 6.5 % Please note range changes. Performed By: #### L 500.4100, L501.9985, L506.1001 #### [facility] [address] [place], [address] Hemoglobin A1c percentageOrd ered By: Juan Reed on 10-31-2024 HbA1c (Bld) [Mass fraction] 7.1 % High <5.7 [facility] Comment on above: Normal < 5.7 % Predi abetic 5.7 - 6.4 % Diabetic >or= 6.5 % Please note range changes. LDL calc ser/plasOrdered By: Juan Reed on 10-31-2024 Cholesterol in LDL [Mass/Vol] 74 mg/dL [facility] Comment on above: Wgltbcdrul=100-191 m g/dL & Higher Yscb=782 mg/dL or greater Lipid Profileon 10-31-2024 CHOL:HDL 3.59 Normal [facility] Comment on above: Performed By: #### L 400.0001, M1 #### [facility] [address] [place], [address] Cholesterol [Mass/Vol] 124 mg/dL Normal <=200 [facility] Comment on above: Result Comment: Chol esterol level, Desirable <200 mg/dL Borderline high cholesterol 200-239 mg/dL High cholesterol >=240 mg/dL Recommendations of the NCEP Adult Treatment Panel for the following risk-cutoff thresholds for the [place] population. Performed By: #### L 400.0001, M1 #### [facility] [address] [place], [address] Cholesterol in HDL [Mass/Vol] 35 mg/dL Low [facility] Comment on above: Result Comment: Zahraa onal Cholesterol Education Program (NCEP) guidelines: <40 mg/dL: Low HDL-cholesterol (major risk factor for CHD) >= 60 mg/dL: High HDL-cholesterol (negative risk factor for CHD) HDL-cholesterol is affected by a number of factors, e.g. smoking, exercise, hormones, sex and age. Performed By: #### L 400.0001, #### [facility] [address] [place], [address] Cholesterol in LDL [Mass/Vol] 74 mg/dL Normal [facility] Comment on above: Result Comment: Bord myrtxc=134-939 mg/dL Higher Mana=612 mg/dL or greater Performed By: #### L 400.0001, #### [facility] [address] [place], [address] Cholesterol in VLDL [Mass/Vol] 16 mg/dL Normal 5-40 [facility] Comment on above: Performed By: #### L 400.0001, #### [facility] [address] [place], [address] Triglyceride [Mass/Vol] 79 mg/dL Normal [facility] Comment on above: Result Comment: The drugs N-Acetylcysteine and Metamizole may falsely depress this assay. Normal range: <150 mg/dL Borderline High: 150-199 mg/dL High: 200-499 mg/dL Very High: >500 mg/dL Performed By: #### L 400.0001, #### [facility] [address] [place], [address] Screening total cholesterol/ high density lipoprotein (HDL) cholesterol ratioOrdered By: Juan Reed on 10-31-2024 Cholesterol.total/Cherelle sterol in HDL [Mass ratio] 3.59 {ratio} [facility] Serum or plasma cholesterol in HDL measurement (mass/volume)Ordered By: Juan Reed on 10-31-2024 Cholesterol in HDL [Mass/Vol] 35 mg/dL Low >40 [facility] Comment on above: National Cholesterol Education Program (NCEP) guidelines:<40 mg/dL: Low HDL-cholesterol (major risk factor for CHD)>= 60 mg/dL: High HDL-cholesterol (negative risk factor for CHD)HDL-cholesterol is affected by a number of factors, e.g. smoking, exercise, hormones, sex and age. Serum or plasma cholesterol measurement (mass/volume)Ordered By: Juan Reed on 10-31-2024 Cholesterol [Mass/Vol] 124 mg/dL <201 [facility] Comment on above: Cholesterol level, D esirable <200 mg/dLBorderline high cholesterol 200-239 mg/dLHigh cholesterol >=240 mg/dLRecommendations of the NCEP Adult Treatment Panel for the following risk-cutoff thresholds for the [place] population. Triglycerides measurementOrd ered By: Juan Reed on 10-31-2024 Triglyceride [Mass/Vol] 79 mg/dL <199 [facility] Comment on above: The drugs N-Acetylcy steine and Metamizole may falsely depress this assay. Normal range: <150 mg/dLBorderline High: 150-199 mg/dLHigh: 200-499 mg/dLVery High: >500 mg/dL Vitamin D,25 Hydroxyon 10-31 Vitamin D 25-OH 46.7 ng/mL Normal 30-100 [facility] Comment on above: Result Comment: Whit min D Status Deficiency: <20 ng/mL (50nmol/L) Insufficiency: 20-30 ng/mL (50-75 nmol/L) Sufficiency: 30-100 ng/mL (75-250 nmol/L) Toxicity: >100 ng/mL (>250 nmol/L) Performed By: #### L 400.0001, M100.2200 #### [facility] [address] [place], [address] Basic Metabolic Profile (BMP )on 10-30-2024 BUN/CRE 34.3 RATIO High 10-20 [facility] Comment on above: Performed By: #### L 501.080 #### [facility] [address] [place], [address] Calcium [Mass/Vol] 10.1 mg/dL Normal 7.6-11.0 [facility] Comment on above: Performed By: #### L 501.080 #### [facility] [address] [place], [address] Chloride [Moles/Vol] 93 mmol/L Low 98-108 [facility] Comment on above: Performed By: #### L 501.080 #### [facility] [address] [place], [address] CO2 [Moles/Vol] 27.1 mmol/L Normal 21.0-32.0 [facility] Comment on above: Performed By: #### L 501.080 #### [facility] [address] [place], [address] Creatinine [Mass/Vol] 0.64 mg/dL Low 0.70-1.20 [facility] Comment on above: Performed By: #### L 501.080 #### [facility] [address] [place], [address] ECRCL 63.12 ml/min Normal 50-250 [facility] Comment on above: Performed By: #### L 501.080 #### [facility] [address] [place], [address] GAP 12 Normal 5-15 [facility] Comment on above: Performed By: #### L 501.080 #### [facility] [address] [place], [address] GFR/1.73 sq M.predicted among non-blacks MDRD (S/P/Bld) [Vol rate/Area] 93 mL/min/{1.73_m2} Normal >60 [facility] Comment on above: Result Comment: mL/m in/1.73m2 CKD-EPI Creatinine Equation (2020) Performed By: #### L 501.080 #### [facility] [address] [place], [address] Glucose [Mass/Vol] 194 mg/dL High 70-99 [facility] Comment on above: Performed By: #### L 501.080 #### [facility] [address] [place], [address] Potassium [Moles/Vol] 4.0 mmol/L Normal 3.3-5.1 [facility] Comment on above: Performed By: #### L 501.080 #### [facility] [address] [place], [address] Sodium [Moles/Vol] 132 mmol/L Low 133-145 [facility] Comment on above: Performed By: #### L 501.080 #### [facility] [address] [place], [address] Urea nitrogen [Mass/Vol] 22 mg/dL High 4-19 [facility] Comment on above: Performed By: #### L 501.080 #### [facility] [address] [place], [address] Bedside Glucoseon 10-30-2024 FINGERSTICK GLU 182 mg/dL High 74-106 [facility] Comment on above: Result Comment: PERCY READ OF PATIENT CARE PER NURSING PROTOCOL Performed By: #### L 501.080 #### [facility] [address] [place], [address] CBC W/Diff, Automatedon - Absolute Lymph 1.67 X10 3/uL Normal 0.83-4.51 [facility] Comment on above: Performed By: #### L 501.080 #### [facility] [address] [place], [address] Absolute Neut 9.0 X10 3/uL High 2.0-7.7 [facility] Comment on above: Performed By: #### L 501.080 #### [facility] [address] [place], [address] Basophils/100 WBC (Bld) 0.7 % Normal 0-1 [facility] Comment on above: Performed By: #### L 501.080 #### [facility] [address] [place], [address] Eosinophils/100 WBC (Bld) 1.5 % Normal 0-5 [facility] Comment on above: Performed By: #### L 501.080 #### [facility] [address] [place], [address] Erythrocyte distribution width (RBC) [Ratio] 13.6 % Normal 11.6-14.6 [facility] Comment on above: Performed By: #### L 501.080 #### [facility] [address] [facility] [address] [place], [address] Hematocrit (Bld) [Volume fraction] 36.9 % Low 40-54 [facility] Comment on above: Performed By: #### L 501.080 #### [facility] [address] [place], [address] Hemoglobin (Bld) [Mass/Vol] 12.6 g/dL Low 13.0-16.5 [facility] Comment on above: Performed By: #### L 501.080 #### [facility] [address] [facility] [place], [address] IG% 4.300 High 0.0-0.9 [facility] Comment on above: Result Comment: IG% - Immature Granulocytes (promyelocytes, myelocytes and metamyelocytes) > 1% indicates that a LEFT SHIFT is Present. Performed By: #### L 501.080 #### [facility] [address] [place], [address] Lymphocytes/100 WBC (Bld) 13.8 % Low 19-41 [facility] Comment on above: Performed By: #### L 501.080 #### [facility] [address] [place], [address] MCH (RBC) [Entitic mass] 31.3 pg Normal 27.0-32.0 [facility] Comment on above: Performed By: #### L 501.080 #### [facility] [address] [place], [address] MCHC (RBC) [Mass/Vol] 34.1 g/dL Normal 32-36 [facility] Comment on above: Performed By: #### L 501.080 #### [facility] [address] [place], [address] MCV (RBC) [Entitic vol] 91.8 fL Normal 80-94 [facility] Comment on above: Performed By: #### L 501.080 #### [facility] [address] [place], [address] Monocytes/100 WBC (Bld) 5.3 % Normal 0-10 [facility] Comment on above: Performed By: #### L 501.080 #### [facility] [address] [place], [address] Neutrophils/100 WBC (Bld) 74.4 % High 47-70 [facility] Comment on above: Performed By: #### L 501.080 #### [facility] [address] [place], [address] Nucleated RBC (Bld) [#/Vol] 0 10*3/uL Normal 0-5 [facility] Comment on above: Performed By: #### L 501.080 #### [facility] [address] [place], [address] Platelet mean volume (Bld) [Entitic vol] 9.2 fL Normal 6.2-12.0 [facility] Comment on above: Performed By: #### L 501.080 #### [facility] [address] [place], [address] Platelets (Bld) [#/Vol] 348 10*3/uL Normal 150-450 [facility] Comment on above: Performed By: #### L 501.080 #### [facility] [address] [place], [address] RBC (Bld) [#/Vol] 4.02 10*6/uL Low 4.6-6.2 [facility] Comment on above: Performed By: #### L 501.080 #### [facility] [address] [place], [address] RDW SD 46.5 fl High 35.1-43.9 [facility] Comment on above: Performed By: #### L 501.080 #### [facility] [address] [place], [address] WBC (Bld) [#/Vol] 12.1 10*3/uL High 4.4-11.0 [facility] Comment on above: Performed By: #### L 501.080 #### [facility] [address] [place], [address] .GFRon 10-29-2024 Estimated Glomerular Filtration Rate 97 ml/min/1.73sqm Normal [facility] Comment on above: Result Comment: Stages of Chronic Kidney Disease (CKD) Stage Description eGFR(ml/min/1.73 sq.m.) CKD 1 Normal kidney function or >=90 normal kindney function with possible kidney damage (ex. Proteinuria) CKD 2 Kidney damage with mild loss 60-89 of kidney function CKD 3a Mild to moderate loss of kidney 45-59 function CKD 3b Moderate to severe loss of 30-44 of kindey function CKD 4 Severe loss of kidney function 15-29 CKD 5 Kidney failure <15 Note: (go live 2024) the eGFR calculation was updated to the 2020 CKD-EPI creatinine equation without a race factor to calculate the eGFR results. Performed By: #### BERNA Frank #### [facility] [address] [place] [address] .Manual Diffon 10-29-2024 Bands 1.0 % Normal 0.0-5.0 [facility] Comment on above: Performed By: #### U A, UAMIC #### [address] [address] Basophil %, Manual 0.0 % Normal 0.0-2.5 [facility] Comment on above: Performed By: #### Anatoly Valdivia UAMIC #### [address] [address] Basophil, Abs Manual 0.0 10 3/mcL Normal 0.0-0.3 [facility] Comment on above: Performed By: #### BERNA Frank #### [address] [address] Eosinophil %, Manual 3.0 % Normal 0.0-6.0 [facility] Comment on above: Performed By: #### BERNA Frank #### [address] [address] Eosinophil, Abs Manual 0.2 10 3/mcL Normal 0.0-0.7 [facility] Comment on above: Performed By: #### BERNA Frnak #### [address] [address] Lymphocyte %, Manual 18.0 % Low 20.0-40.0 [facility] Comment on above: Performed By: #### BERNA Frank #### [address] [address] Lymphocyte, Abs Manual 1.4 10 3/mcL Normal 0.9-4.3 [facility] Comment on above: Performed By: #### BERNA Frank #### [address] [address] Metamyelocyte 3.0 % Normal [facility] Comment on above: Performed By: #### Anatoly Valdivia UAMIC #### [address] [address] Monocyte %, Manual 7.0 % Normal 2.0-13.0 [facility] Comment on above: Performed By: #### Anatoly Valdivia UAMIC #### [address] [address] Monocyte, Abs Manual 0.6 10 3/mcL Normal 0.1-1.4 [facility] Comment on above: Performed By: #### U A, UAMIC #### [place] [address] Neutrophil %, Manual 68.0 % Normal 50.0-75.0 [facility] MAIN Comment on above: Performed By: #### U A, UAMIC #### [place] [address] Neutrophil, Abs Manual 5.3 10 3/mcL Normal 2.3-8.1 [facility] Comment on above: Performed By: #### U A, UAMIC #### [place] [address] Nucleated RBC 0.0 /100 WBC Normal [facility] Comment on above: Performed By: #### U A, UAMIC #### [place] [address] .Morphon 10-29-2024 Platelet Estimate Normal Normal [facility] Comment on above: Performed By: #### U A UAMIC #### [place] [address] RBC morphology finding Nom (Bld) Normal Normal [facility] Comment on above: Performed By: #### U A UAMIC #### [place] [address] CBCon 10-29-2024 Erythrocyte distribution width (RBC) [Ratio] 14.1 % Normal 11.5-15.5 [facility] Comment on above: Performed By: #### U A UAMIC #### [place] [address] Hematocrit (Bld) [Volume fraction] 34.1 % Low 40.0-52.0 [facility] Comment on above: Performed By: #### U A UAMIC #### [place] [address] Hgb 12.1 G/dL Low 13.0-17.5 [facility] Comment on above: Performed By: #### U A UAMIC #### [place] [address] MCH (RBC) [Entitic mass] 32.4 pg Normal 27.0-33.0 [facility] Comment on above: Performed By: #### BERNA Frank #### [place] [address] MCHC 35.4 G/dL Normal 32.0-36.0 [facility] Comment on above: Performed By: #### Anatoly Valdivia UACARRILLO #### [place] [id number] MCV (RBC) [Entitic vol] 91.4 fL Normal 81.0-100.0 [facility] Comment on above: Performed By: #### BERNA Frnak #### [place] [address] Platelet 327 10 3/mcL Normal 150-450 [facility] Comment on above: Performed By: #### BERNA Frank #### [place] [address] Platelet mean volume (Bld) [Entitic vol] 7.2 fL Normal 6.4-10.5 [facility] Comment on above: Performed By: #### BERNA Frank #### [place] [address] RBC 3.72 10 6/mcL Low 4.50-6.00 [facility] Comment on above: Performed By: #### BERNA Frank #### [place] [address] WBC 7.7 10 3/mcL Normal 4.5-10.8 [facility] Comment on above: Performed By: #### BERNA Frank #### [place] [address] CMPon 10-29-2024 Albumin Level 2.9 G/dL Low 3.2-4.8 [facility] Comment on above: Performed By: #### BERNA Frank #### [place] [address] Albumin/Globulin [Mass ratio] 0.9 {ratio} Normal 0.9-1.6 [facility] Comment on above: Performed By: #### BERNA Frank #### [address] [address] ALP [Catalytic activity/Vol] 76 U/L Normal 38-126 [facility] Comment on above: Performed By: #### Anatoly Valdivia UAMIC #### [address] [address] ALT [Catalytic activity/Vol] 47 U/L Normal 12-55 [facility] Comment on above: Performed By: #### Anatoly Valdivia UAMIC #### [address] [address] AST [Catalytic activity/Vol] 30 U/L Normal 8-34 [facility] Comment on above: Performed By: #### Anatoly Valdivia UACARRILLO #### [address] [address] Bili Total 0.50 mg/dL Normal 0.20-1.20 [facility] Comment on above: Result Comment: Use of this assay is not recommended for patients undergoing treatment with eltrombopag due to the potential for falsely elevated results. Performed By: #### Anatoly Valdivia UAMIC #### [address] [address] BUN/Creatinine Ratio 39.3 ratio High 10.0-22.0 [facility] Comment on above: Performed By: #### Anatoly Valdivia UACARRILLO #### [address] [address] Calcium [Mass/Vol] 9.7 mg/dL Normal 8.7-10.4 [facility] Comment on above: Performed By: #### Anatoly Valdivia UAMIC #### [address] [address] Chloride [Moles/Vol] 95 mmol/L Low 98-110 [facility] MA[facility] Comment on above: Performed By: #### Anatoly Valdivia UAMIC #### [address] [address] CO2 [Moles/Vol] 29 mmol/L Normal 22-32 [facility] Comment on above: Performed By: #### Anatoly Valdivia UAMIC #### [address] [address] Creatinine [Mass/Vol] 0.56 mg/dL Low 0.60-1.40 [facility] Comment on above: Result Comment: Test ing performed on [employer] analyzer using enzymatic creatinine methodology. Performed By: #### U A UAMIC #### [address] [address] Electrolyte Balance 10.0 mEq/L Normal 4.0-15.0 [facility] Comment on above: Performed By: #### U A UAMIC #### [address] [address] Globulin 3.3 G/dL Normal 2.5-4.2 [facility] Comment on above: Performed By: #### U Shea UAMIC #### [address] [address] Glucose [Mass/Vol] 215 mg/dL High 82-115 [facility] Comment on above: Performed By: #### U A UAMIC #### [address] [address] Potassium [Moles/Vol] 3.7 mmol/L Normal 3.5-5.0 [facility] Comment on above: Performed By: #### U Shea UAMIC #### [address] [address] Sodium [Moles/Vol] 134 mmol/L Low 136-145 [facility] Comment on above: Performed By: #### U A UAMIC #### [address] [address] Total Protein 6.2 G/dL Normal 5.7-8.2 [facility] Comment on above: Performed By: #### U A UAMIC #### [address] [address] Urea nitrogen [Mass/Vol] 22.0 mg/dL Normal 8.0-22.0 [facility] Comment on above: Performed By: #### U A UAMIC #### [address] [address] LABORATORYOrdered By: Maikol Corrigan on 10-29-2024 Blood Glucose Testing Reason Routine (10/29/24 11:33 AM) [facility] Glucose [Mass/Vol] 276 mg/dL High 82 - 115 mg/dL [facility] Blood Glucose Testing Reason Routine (10/29/24 7:44 AM) [facility] Glucose [Mass/Vol] 196 mg/dL High 82 - 115 mg/dL [facility] LABORATORYOrdered By: SYSTEM SYSTEM on 10-29-2024 Albumin BCP dye [Mass/Vol] 2.9 G/dL Low 3.2 - 4.8 G/dL ADM SS Albumin/Globulin [Mass ratio] 0.9 {ratio} Normal 0.9 - 1.6 ratio ADM SS ALP [Catalytic activity/Vol] 76 U/L Normal 38 - 126 U/L ADM SS ALT No additional P-5'-P [Catalytic activity/Vol] 47 U/L Normal 12 - 55 U/L ADM SS AST [Catalytic activity/Vol] 30 U/L Normal 8 - 34 U/L ADM SS Band form neutrophils/100 WBC (Bld) 1.0 % Normal 0.0 - 5.0 % Workflow SS Basophils (Bld) [#/Vol] 0.0 103/mcL Normal 0.0 - 0.3 10^3/mcL Workflow SS Basophils/100 WBC (Bld) 0.0 % Normal 0.0 - 2.5 % Workflow SS Bilirubin [Mass/Vol] 0.50 mg/dL Normal 0.20 - 1.20 mg/dL ADM SS Comment on above: Interpretive Data: U se of this assay is not recommended for patients undergoing treatment with eltrombopag due to the potential for falsely elevated results. Calcium [Mass/Vol] 9.7 mg/dL Normal 8.7 - 10. 4 mg/dL AH ADM SS Chloride [Moles/Vol] 95 mmol/L Low 98 - 11 0 mEq/L AH ADM SS CO2 [Moles/Vol] 29 mmol/L Normal 22 - 32 mEq/L ADM SS Creatinine [Mass/Vol] 0.56 mg/dL Low 0.60 - 1.40 mg/dL ADM SS Comment on above: Interpretive Data: T esting performed on [employer] CH analyzer using enzymatic creatinine methodology. Electrolyte Balance 10.0 mEq/L Normal 4.0 - 15 .0 mEq/L ADM SS Eosinophils (Bld) [#/Vol] 0.2 103/mcL Normal 0.0 - 0.7 10^3/mcL Workflow SS Eosinophils/100 WBC (Bld) 3.0 % Normal 0.0 - 6.0 % Workflow SS Erythrocyte distribution width (RBC) [Ratio] 14.1 % Normal 11.5 - 15.5 % Workflow SS Estimated Glomerular Filtration Rate 97 ml/min/1.73sqm Invalid Interpretation Code Chemistry S Comment on above: Interpretive Data: Stages of Chronic Kidney Disease (CKD) Stage Description eGFR(ml/min/1.73 sq.m.) CKD 1 Normal kidney function or >=90 normal kindney function with possible kidney damage (ex. Proteinuria) CKD 2 Kidney damage with mild loss 60-89 of kidney function CKD 3a Mild to moderate loss of kidney 45-59 function CKD 3b Moderate to severe loss of 30-44 of kindey function CKD 4 Severe loss of kidney function 15-29 CKD 5 Kidney failure <15 Note: (go live 2024) the eGFR calculation was updated to the 2020 CKD-EPI creatinine equation without a race factor to calculate the eGFR results. Globulin 3.3 G/dL Normal 2.5 - 4.2 G/dL ADM SS Glucose [Mass/Vol] 215 mg/dL High 82 - 115 mg/dL ADM SS Hematocrit (Bld) [Volume fraction] 34.1 % Low 40.0 - 52.0 % Workflow SS Hemoglobin (Bld) [Mass/Vol] 12.1 G/dL Low 13.0 - 17.5 G/dL Workflow SS Lymphocytes (Bld) [#/Vol] 1.4 103/mcL Normal 0.9 - 4.3 10^3/mcL Workflow SS Lymphocytes/100 WBC (Bld) 18.0 % Low 20.0 - 40.0 % Workflow SS Magnesium [Mass/Vol] 1.7 mg/dL Normal 1.6 - 2 .4 mg/dL ADM SS MCH (RBC) [Entitic mass] 32.4 pg Normal 27.0 - 33.0 pg Workflow SS MCHC 35.4 G/dL Normal 32.0 - 36.0 G/dL AH Workflow SS MCV (RBC) [Entitic vol] 91.4 fL Normal 81.0 - 100.0 fL AH Workflow SS Metamyelocytes/100 WBC (Bld) 3.0 % Invalid Interpretation Code AH Workflow SS Monocytes (Bld) [#/Vol] 0.6 103/mcL Normal 0.1 - 1.4 10^3/mcL AH Workflow SS Monocytes/100 WBC (Bld) 7.0 % Normal 2.0 - 13.0 % AH Workflow SS Neutrophils (Bld) [#/Vol] 5.3 103/mcL Normal 2.3 - 8.1 10^3/mcL AH Workflow SS Neutrophils/100 WBC (Bld) 68.0 % Normal 50.0 - 75.0 % AH Workflow SS Nucleated RBC 0.0 /100 WBC Invalid Interpretation Code Workflow SS Platelet mean volume (Bld) [Entitic vol] 7.2 fL Normal 6.4 - 10.5 fL AH Workflow SS Platelets (Bld) [#/Vol] 327 103/mcL Normal 150 - 450 10^3/mcL AH Workflow SS Platelets LM Ql (Bld) Normal *NA* (10/29/24 6:36 AM) Invalid Interpretation Code Workflow SS Potassium [Moles/Vol] 3.7 mmol/L Normal 3.5 - 5.0 mEq/L AH ADM SS Protein [Mass/Vol] 6.2 G/dL Normal 5.7 - 8.2 G/dL ADM SS RBC (Bld) [#/Vol] 3.72 106/mcL Low 4.50 - 6.0 0 10^6/mcL AH Workflow SS RBC morphology finding Nom (Bld) Normal *NA* (10/29/24 6:36 AM) Invalid Interpretation Code Workflow SS Sodium [Moles/Vol] 134 mmol/L Low 136 - 145 mEq/L ADM SS Urea nitrogen [Mass/Vol] 22.0 mg/dL Normal 8.0 - 22.0 mg/dL AH ADM SS Urea nitrogen/Creatinine [Mass ratio] 39.3 ratio High 10.0 - 22.0 ratio AH ADM SS WBC (Bld) [#/Vol] 7.7 103/mcL Normal 4.5 - 10.8 10^3/mcL AH Workflow SS MGon 10-29-2024 Magnesium [Mass/Vol] 1.7 mg/dL Normal 1.6-2.4 [facility] MAIN Comment on above: Performed By: #### U A, UAMIC #### [place] [address] .GFRon 10-28-2024 Estimated Glomerular Filtration Rate 92 ml/min/1.73sqm Normal [facility] Comment on above: Result Comment: Stages of Chronic Kidney Disease (CKD) Stage Description eGFR(ml/min/1.73 sq.m.) CKD 1 Normal kidney function or >=90 normal kindney function with possible kidney damage (ex. Proteinuria) CKD 2 Kidney damage with mild loss 60-89 of kidney function CKD 3a Mild to moderate loss of kidney 45-59 function CKD 3b Moderate to severe loss of 30-44 of kindey function CKD 4 Severe loss of kidney function 15-29 CKD 5 Kidney failure <15 Note: (go live 2024) the eGFR calculation was updated to the 2020 CKD-EPI creatinine equation without a race factor to calculate the eGFR results. Performed By: #### A DIFF, CBC, BMP, ANEU, MG, GFR #### [place] [address] .Manual Diffon 10-28-2024 Basophil %, Manual 0.0 % Normal 0.0-2.5 [facility] MAIN Comment on above: Performed By: #### A DIFF, CBC, BMP, ANEU, MG, GFR #### [place] [address] Basophil, Abs Manual 0.0 10 3/mcL Normal 0.0-0.3 [facility] Comment on above: Performed By: #### A DIFF, CBC, BMP, ANEU, MG, GFR #### [place] [address] Eosinophil %, Manual 1.0 % Normal 0.0-6.0 [facility] Comment on above: Performed By: #### A DIFF, CBC, BMP, ANEU, MG, GFR #### [place] [address] Eosinophil, Abs Manual 0.1 10 3/mcL Normal 0.0-0.7 [facility] Comment on above: Performed By: #### A DIFF, CBC, BMP, ANEU, MG, GFR #### [address] [address] Lymphocyte %, Manual 11.0 % Low 20.0-40.0 [facility] MA[facility] Comment on above: Performed By: #### A DIFF, CBC, BMP, ANEU, MG, GFR #### [address] [address] Lymphocyte, Abs Manual 1.1 10 3/mcL Normal 0.9-4.3 [facility] Comment on above: Performed By: #### A DIFF, CBC, BMP, ANEU, MG, GFR #### [address] [address] Metamyelocyte 1.0 % Normal [facility] Comment on above: Performed By: #### A DIFF, CBC, BMP, ANEU, MG, GFR #### [address] [address] Monocyte %, Manual 4.0 % Normal 2.0-13.0 [facility] Comment on above: Performed By: #### A DIFF, CBC, BMP, ANEU, MG, GFR #### [address] [address] Monocyte, Abs Manual 0.4 10 3/mcL Normal 0.1-1.4 [facility] Comment on above: Performed By: #### A DIFF, CBC, BMP, ANEU, MG, GFR #### [address] [address] Neutrophil %, Manual 83.0 % High 50.0-75.0 [facility] Comment on above: Performed By: #### A DIFF, CBC, BMP, ANEU, MG, GFR #### [address] [address] Neutrophil, Abs Manual 8.2 10 3/mcL High 2.3-8.1 [facility] Comment on above: Performed By: #### A DIFF, CBC, BMP, ANEU, MG, GFR #### [address] [address] Nucleated RBC 0.0 /100 WBC Normal [facility] Comment on above: Performed By: #### A DIFF, CBC, BMP, ANEU, MG, GFR #### [address] [address] .Morphon 10-28-2024 Platelet Estimate Normal Normal [facility] Comment on above: Performed By: #### A DIFF, CBC, BMP, ANEU, MG, GFR #### [place] [address] RBC morphology finding Nom (Bld) Normal Normal [facility] Comment on above: Performed By: #### A DIFF, CBC, BMP, ANEU, MG, GFR #### [place] [address] Toxic Gran 1+ Normal [facility] Comment on above: Performed By: #### A DIFF, CBC, BMP, ANEU, MG, GFR #### [place] [address] CBCon 10-28-2024 Erythrocyte distribution width (RBC) [Ratio] 14.1 % Normal 11.5-15.5 [facility] Comment on above: Performed By: #### A DIFF, CBC, BMP, ANEU, MG, GFR #### [place] [address] Hematocrit (Bld) [Volume fraction] 35.4 % Low 40.0-52.0 [facility] Comment on above: Performed By: #### A DIFF, CBC, BMP, ANEU, MG, GFR #### [place] [address] Hgb 12.2 G/dL Low 13.0-17.5 [facility] Comment on above: Performed By: #### A DIFF, CBC, BMP, ANEU, MG, GFR #### [place] [address] MCH (RBC) [Entitic mass] 31.4 pg Normal 27.0-33.0 [facility] Comment on above: Performed By: #### A DIFF, CBC, BMP, ANEU, MG, GFR #### [place] [address] MCHC 34.4 G/dL Normal 32.0-36.0 [facility] Comment on above: Performed By: #### A DIFF, CBC, BMP, ANEU, MG, GFR #### [place] [id number] MCV (RBC) [Entitic vol] 91.5 fL Normal 81.0-100.0 [facility] Comment on above: Performed By: #### A DIFF, CBC, BMP, ANEU, MG, GFR #### [place] [address] Platelet 311 10 3/mcL Normal 150-450 [facility] Comment on above: Performed By: #### A DIFF, CBC, BMP, ANEU, MG, GFR #### [place] [address] Platelet mean volume (Bld) [Entitic vol] 7.3 fL Normal 6.4-10.5 [facility] Comment on above: Performed By: #### A DIFF, CBC, BMP, ANEU, MG, GFR #### [place] [id number] RBC 3.87 10 6/mcL Low 4.50-6.00 [facility] Comment on above: Performed By: #### A DIFF, CBC, BMP, ANEU, MG, GFR #### [place] [id number] WBC 9.9 10 3/mcL Normal 4.5-10.8 [facility] Comment on above: Performed By: #### A DIFF, CBC, BMP, ANEU, MG, GFR #### [place] [id number] CMPon 10-28-2024 Albumin Level 3.0 G/dL Low 3.2-4.8 [facility] Comment on above: Performed By: #### A DIFF, CBC, BMP, ANEU, MG, GFR #### [place] [id number] Albumin/Globulin [Mass ratio] 0.9 {ratio} Normal 0.9-1.6 [facility] Comment on above: Performed By: #### A DIFF, CBC, BMP, ANEU, MG, GFR #### [facility] [address] [place], [place] [address] ALP [Catalytic activity/Vol] 74 U/L Normal 38-126 [facility] Comment on above: Performed By: #### A DIFF, CBC, BMP, ANEU, MG, GFR #### [address] [address] ALT [Catalytic activity/Vol] 41 U/L Normal 12-55 [facility] Comment on above: Performed By: #### A DIFF, CBC, BMP, ANEU, MG, GFR #### [address] [address] AST [Catalytic activity/Vol] 30 U/L Normal 8-34 [facility] Comment on above: Performed By: #### A DIFF, CBC, BMP, ANEU, MG, GFR #### [address] [address] Bili Total 0.60 mg/dL Normal 0.20-1.20 [facility] Comment on above: Result Comment: Use of this assay is not recommended for patients undergoing treatment with eltrombopag due to the potential for falsely elevated results. Performed By: #### A DIFF, CBC, BMP, ANEU, MG, GFR #### [address] [address] BUN/Creatinine Ratio 37.9 ratio High 10.0-22.0 [facility] Comment on above: Performed By: #### A DIFF, CBC, BMP, ANEU, MG, GFR #### [address] [address] Calcium [Mass/Vol] 9.7 mg/dL Normal 8.7-10.4 [facility] Comment on above: Performed By: #### A DIFF, CBC, BMP, ANEU, MG, GFR #### [address] [address] Chloride [Moles/Vol] 95 mmol/L Low 98-110 [facility] MA[facility] Comment on above: Performed By: #### A DIFF, CBC, BMP, ANEU, MG, GFR #### [address] [address] CO2 [Moles/Vol] 27 mmol/L Normal 22-32 [facility] Comment on above: Performed By: #### A DIFF, CBC, BMP, ANEU, MG, GFR #### [address] [address] Creatinine [Mass/Vol] 0.66 mg/dL Normal 0.60-1.40 [facility] MAIN Comment on above: Result Comment: Test ing performed on [employer] analyzer using enzymatic creatinine methodology. Performed By: #### A DIFF, CBC, BMP, ANEU, MG, GFR #### [place] [id number] Electrolyte Balance 12.0 mEq/L Normal 4.0-15.0 [facility] MAIN Comment on above: Performed By: #### A DIFF, CBC, BMP, ANEU, MG, GFR #### [address] [address] Globulin 3.4 G/dL Normal 2.5-4.2 [facility] Comment on above: Performed By: #### A DIFF, CBC, BMP, ANEU, MG, GFR #### [place] [id number] Glucose [Mass/Vol] 200 mg/dL High 82-115 [facility] MAIN Comment on above: Performed By: #### A DIFF, CBC, BMP, ANEU, MG, GFR #### [address] [address] Potassium [Moles/Vol] 3.6 mmol/L Normal 3.5-5.0 [facility] Comment on above: Performed By: #### A DIFF, CBC, BMP, ANEU, MG, GFR #### [address] [address] Sodium [Moles/Vol] 134 mmol/L Low 136-145 [facility] MA[facility] Comment on above: Performed By: #### A DIFF, CBC, BMP, ANEU, MG, GFR #### [place] [id number] Total Protein 6.4 G/dL Normal 5.7-8.2 [facility] Comment on above: Performed By: #### A DIFF, CBC, BMP, ANEU, MG, GFR #### [address] [address] Urea nitrogen [Mass/Vol] 25.0 mg/dL High 8.0-22.0 [facility] Comment on above: Performed By: #### A DIFF, CBC, BMP, ANEU, MG, GFR #### [facility] [address] [place] [id number] LABORATORYOrdered By: Kelli Swartz on 10-28-2024 Blood Glucose Testing Reason Routine (10/28/24 10:14 PM) [facility] Glucose [Mass/Vol] 270 mg/dL High 82 - 115 mg/dL [facility] LABORATORYOrdered By: SYSTEM SYSTEM on 10-28-2024 Albumin BCP dye [Mass/Vol] 3.0 G/dL Low 3.2 - 4.8 G/dL ADM SS Albumin/Globulin [Mass ratio] 0.9 {ratio} Normal 0.9 - 1.6 ratio AH ADM SS ALP [Catalytic activity/Vol] 74 U/L Normal 38 - 126 U/L ADM SS ALT No additional P-5'-P [Catalytic activity/Vol] 41 U/L Normal 12 - 55 U/L AH ADM SS AST [Catalytic activity/Vol] 30 U/L Normal 8 - 34 U/L AH ADM SS Basophils (Bld) [#/Vol] 0.0 103/mcL Normal 0.0 - 0.3 10^3/mcL Workflow SS Basophils/100 WBC (Bld) 0.0 % Normal 0.0 - 2.5 % Workflow SS Bilirubin [Mass/Vol] 0.60 mg/dL Normal 0.20 - 1.20 mg/dL ADM SS Comment on above: Interpretive Data: U se of this assay is not recommended for patients undergoing treatment with eltrombopag due to the potential for falsely elevated results. Calcium [Mass/Vol] 9.7 mg/dL Normal 8.7 - 10. 4 mg/dL AH ADM SS Chloride [Moles/Vol] 95 mmol/L Low 98 - 11 0 mEq/L AH ADM SS CO2 [Moles/Vol] 27 mmol/L Normal 22 - 32 mEq/L AH ADM SS Creatinine [Mass/Vol] 0.66 mg/dL Normal 0.60 - 1.40 mg/dL ADM SS Comment on above: Interpretive Data: T esting performed on [employer] CH analyzer using enzymatic creatinine methodology. Electrolyte Balance 12.0 mEq/L Normal 4.0 - 15 .0 mEq/L ADM SS Eosinophils (Bld) [#/Vol] 0.1 103/mcL Normal 0.0 - 0.7 10^3/mcL Workflow SS Eosinophils/100 WBC (Bld) 1.0 % Normal 0.0 - 6.0 % Workflow SS Erythrocyte distribution width (RBC) [Ratio] 14.1 % Normal 11.5 - 15.5 % Workflow SS Estimated Glomerular Filtration Rate 92 ml/min/1.73sqm Invalid Interpretation Code Chemistry S Comment on above: Interpretive Data: Stages of Chronic Kidney Disease (CKD) Stage Description eGFR(ml/min/1.73 sq.m.) CKD 1 Normal kidney function or >=90 normal kindney function with possible kidney damage (ex. Proteinuria) CKD 2 Kidney damage with mild loss 60-89 of kidney function CKD 3a Mild to moderate loss of kidney 45-59 function CKD 3b Moderate to severe loss of 30-44 of kindey function CKD 4 Severe loss of kidney function 15-29 CKD 5 Kidney failure <15 Note: (go live 2024) the eGFR calculation was updated to the 2020 CKD-EPI creatinine equation without a race factor to calculate the eGFR results. Globulin 3.4 G/dL Normal 2.5 - 4.2 G/dL ADM SS Glucose [Mass/Vol] 200 mg/dL High 82 - 115 mg/dL ADM SS Hematocrit (Bld) [Volume fraction] 35.4 % Low 40.0 - 52.0 % Workflow SS Hemoglobin (Bld) [Mass/Vol] 12.2 G/dL Low 13.0 - 17.5 G/dL Workflow SS Lymphocytes (Bld) [#/Vol] 1.1 103/mcL Normal 0.9 - 4.3 10^3/mcL Workflow SS Lymphocytes/100 WBC (Bld) 11.0 % Low 20.0 - 40.0 % Workflow SS Magnesium [Mass/Vol] 1.8 mg/dL Normal 1.6 - 2 .4 mg/dL ADM SS MCH (RBC) [Entitic mass] 31.4 pg Normal 27.0 - 33.0 pg Workflow SS MCHC 34.4 G/dL Normal 32.0 - 36.0 G/dL AH Workflow SS MCV (RBC) [Entitic vol] 91.5 fL Normal 81.0 - 100.0 fL AH Workflow SS Metamyelocytes/100 WBC (Bld) 1.0 % Invalid Interpretation Code AH Workflow SS Monocytes (Bld) [#/Vol] 0.4 103/mcL Normal 0.1 - 1.4 10^3/mcL AH Workflow SS Monocytes/100 WBC (Bld) 4.0 % Normal 2.0 - 13.0 % AH Workflow SS Neutrophils (Bld) [#/Vol] 8.2 103/mcL High 2.3 - 8.1 10^3/mcL AH Workflow SS Neutrophils/100 WBC (Bld) 83.0 % High 50.0 - 75.0 % AH Workflow SS Nucleated RBC 0.0 /100 WBC Invalid Interpretation Code Workflow SS Platelet mean volume (Bld) [Entitic vol] 7.3 fL Normal 6.4 - 10.5 fL AH Workflow SS Platelets (Bld) [#/Vol] 311 103/mcL Normal 150 - 450 10^3/mcL AH Workflow SS Platelets LM Ql (Bld) Normal *NA* (10/28/24 4:23 AM) Invalid Interpretation Code Workflow SS Potassium [Moles/Vol] 3.6 mmol/L Normal 3.5 - 5.0 mEq/L AH ADM SS Protein [Mass/Vol] 6.4 G/dL Normal 5.7 - 8.2 G/dL AH ADM SS RBC (Bld) [#/Vol] 3.87 106/mcL Low 4.50 - 6.0 0 10^6/mcL AH Workflow SS RBC morphology finding Nom (Bld) Normal *NA* (10/28/24 4:23 AM) Invalid Interpretation Code Workflow SS Sodium [Moles/Vol] 134 mmol/L Low 136 - 145 mEq/L AH ADM SS Toxic granules LM Ql (Bld) 1+ *NA* (10/28/24 4:23 AM) Invalid Interpretation Code Workflow SS Urea nitrogen [Mass/Vol] 25.0 mg/dL High 8.0 - 22.0 mg/dL AH ADM SS Urea nitrogen/Creatinine [Mass ratio] 37.9 ratio High 10.0 - 22.0 ratio AH ADM SS WBC (Bld) [#/Vol] 9.9 103/mcL Normal 4.5 - 10.8 10^3/mcL AH Workflow SS MGon 10-28-2024 Magnesium [Mass/Vol] 1.8 mg/dL Normal 1.6-2.4 [place] [facility] Comment on above: Performed By: #### A DIFF, CBC, BMP, ANEU, MG, GFR #### [place] [id number] [place] [address] XR CHEST 1 VIEWon 10-28-2024 XR CHEST 1 VIEW ORIGINAL EXAMINATION: ONE XRAY VIEW OF THE CHEST10/28/2024 12:55 pm COMPARISON: CT chest one view chest radiograph 10/26/2024 HISTORY: ORDERING SYSTEM PROVIDED HISTORY: Reason for Exam: SOB FINDINGS: The cardiomediastinal contours are stable. Atherosclerosis of the aorta. Small right pleural effusion with adjacent right basilar airspace opacities is stable. Left basilar/retrocardiac airspace opacities are also not significantly changed. No large left pleural effusion or visible pneumothorax. The visualized osseous structures are unchanged. IMPRESSION: Relatively stable bibasilar airspace opacities and small right pleural effusion. I have reviewed the resident's preliminary report and agree with findings and impression. Interpreted by: Sosa Yao Preliminary Report By: Nelida Padilla Electronically signed By Sosa Yao Dictated Date: 10/28/2024 4:10:13 PM Prelim Date: 10/28/2024 4:14:13 PM Sign Date: 10/28/2024 4:31:31 PM Ordering Provider: ROSI PRADO Interpreted by: Sosa Yao Preliminary Report By: Nelida Padilla Electronically signed By Sosa Yao Dictated Date: 10/28/2024 4:10:13 PM Prelim Date: 10/28/2024 4:14:13 PM Sign Date: 10/28/2024 4:31:31 PM Ordering Provider: ROSI PRADO Normal [facility] MAIN .Auto Diffon 10-27-2024 Basophil, Absolute 0.0 10 3/mcL Normal 0.0-0.3 [facility] MAIN Comment on above: Performed By: #### A DIFF, CBC, BMP, ANEU, MG, GFR #### [facility] [address] [place] [address] Basophils/100 WBC (Bld) 0.1 % Normal 0.0-2.5 [facility] MAIN Comment on above: Performed By: #### A DIFF, CBC, BMP, ANEU, MG, GFR #### [address] [address] Eosinophil, Absolute 0.0 10 3/mcL Normal 0.0-0.7 [facility] MAIN Comment on above: Performed By: #### A DIFF, CBC, BMP, ANEU, MG, GFR #### [address] [address] Eosinophils/100 WBC (Bld) 0.5 % Normal 0.0-6.0 [facility] MAIN Comment on above: Performed By: #### A DIFF, CBC, BMP, ANEU, MG, GFR #### [address] [address] Lymphocyte, Absolute 0.9 10 3/mcL Normal 0.9-4.3 [facility] MA[facility] Comment on above: Performed By: #### A DIFF, CBC, BMP, ANEU, MG, GFR #### [address] [address] Lymphocytes/100 WBC (Bld) 9.3 % Low 20.0-40.0 [facility] MAIN Comment on above: Performed By: #### A DIFF, CBC, BMP, ANEU, MG, GFR #### [address] [address] Monocyte, Absolute 0.7 10 3/mcL Normal 0.1-1.4 [facility] MAIN Comment on above: Performed By: #### A DIFF, CBC, BMP, ANEU, MG, GFR #### [address] [address] Monocytes/100 WBC (Bld) 7.4 % Normal 2.0-13.0 [facility]IN Comment on above: Performed By: #### A DIFF, CBC, BMP, ANEU, MG, GFR #### [address] [address] Neutrophils/100 WBC (Bld) 82.7 % High 50.0-75.0 [facility] MAIN Comment on above: Performed By: #### A DIFF, CBC, BMP, ANEU, MG, GFR #### [address] [address] .GFRon 10-27-2024 Estimated Glomerular Filtration Rate 93 ml/min/1.73sqm Normal [facility] MAIN Comment on above: Result Comment: Stages of Chronic Kidney Disease (CKD) Stage Description eGFR(ml/min/1.73 sq.m.) CKD 1 Normal kidney function or >=90 normal kindney function with possible kidney damage (ex. Proteinuria) CKD 2 Kidney damage with mild loss 60-89 of kidney function CKD 3a Mild to moderate loss of kidney 45-59 function CKD 3b Moderate to severe loss of 30-44 of kindey function CKD 4 Severe loss of kidney function 15-29 CKD 5 Kidney failure <15 Note: (go live 2024) the eGFR calculation was updated to the 2020 CKD-EPI creatinine equation without a race factor to calculate the eGFR results. Performed By: #### A DIFF, CBC, BMP, ANEU, MG, GFR #### [place] [address] .NEUABSon 10-27-2024 Neutrophil, Absolute 8.1 10 3/mcL Normal 2.3-8.1 [facility] MAIN Comment on above: Performed By: #### A DIFF, CBC, BMP, ANEU, MG, GFR #### [place] [address] CBCon 10-27-2024 Erythrocyte distribution width (RBC) [Ratio] 14.3 % Normal 11.5-15.5 [facility] MAIN Comment on above: Performed By: #### A DIFF, CBC, BMP, ANEU, MG, GFR #### [place] [address] Hematocrit (Bld) [Volume fraction] 35.2 % Low 40.0-52.0 [facility] MAIN Comment on above: Performed By: #### A DIFF, CBC, BMP, ANEU, MG, GFR #### [place] [address] Hgb 12.2 G/dL Low 13.0-17.5 [facility] MAIN Comment on above: Performed By: #### A DIFF, CBC, BMP, ANEU, MG, GFR #### [address] [address] MCH (RBC) [Entitic mass] 31.6 pg Normal 27.0-33.0 [facility] MAIN Comment on above: Performed By: #### A DIFF, CBC, BMP, ANEU, MG, GFR #### [place] [address] MCHC 34.8 G/dL Normal 32.0-36.0 [facility] MAIN Comment on above: Performed By: #### A DIFF, CBC, BMP, ANEU, MG, GFR #### [place] [address] MCV (RBC) [Entitic vol] 91.0 fL Normal 81.0-100.0 [facility] MAIN Comment on above: Performed By: #### A DIFF, CBC, BMP, ANEU, MG, GFR #### [place] [address] Platelet 288 10 3/mcL Normal 150-450 [facility] MAIN Comment on above: Performed By: #### A DIFF, CBC, BMP, ANEU, MG, GFR #### [place] [address] Platelet mean volume (Bld) [Entitic vol] 7.5 fL Normal 6.4-10.5 [facility] MAIN Comment on above: Performed By: #### A DIFF, CBC, BMP, ANEU, MG, GFR #### [place] [address] RBC 3.87 10 6/mcL Low 4.50-6.00 [facility] MAIN Comment on above: Performed By: #### A DIFF, CBC, BMP, ANEU, MG, GFR #### [place] [address] WBC 9.8 10 3/mcL Normal 4.5-10.8 [facility] MAIN Comment on above: Performed By: #### A DIFF, CBC, BMP, ANEU, MG, GFR #### [place] [address] CMPon 10-27-2024 Albumin Level 2.9 G/dL Low 3.2-4.8 [facility] MAIN Comment on above: Performed By: #### A DIFF, CBC, BMP, ANEU, MG, GFR #### [place] [address] Albumin/Globulin [Mass ratio] 0.9 {ratio} Normal 0.9-1.6 [facility] MAIN Comment on above: Performed By: #### A DIFF, CBC, BMP, ANEU, MG, GFR #### [place] [id number] ALP [Catalytic activity/Vol] 68 U/L Normal 38-126 [facility] MAIN Comment on above: Performed By: #### A DIFF, CBC, BMP, ANEU, MG, GFR #### [place] [id number] ALT [Catalytic activity/Vol] 39 U/L Normal 12-55 [facility] MAIN Comment on above: Performed By: #### A DIFF, CBC, BMP, ANEU, MG, GFR #### [place] [id number] AST [Catalytic activity/Vol] 34 U/L Normal 8-34 [facility] MAIN Comment on above: Performed By: #### A DIFF, CBC, BMP, ANEU, MG, GFR #### [place] [id number] Bili Total 0.60 mg/dL Normal 0.20-1.20 [facility] MAIN Comment on above: Result Comment: Use of this assay is not recommended for patients undergoing treatment with eltrombopag due to the potential for falsely elevated results. Performed By: #### A DIFF, CBC, BMP, ANEU, MG, GFR #### [place] [address] BUN/Creatinine Ratio 39.1 ratio High 10.0-22.0 [facility] MAIN Comment on above: Performed By: #### A DIFF, CBC, BMP, ANEU, MG, GFR #### [place] [address] Calcium [Mass/Vol] 9.4 mg/dL Normal 8.7-10.4 [facility] MAIN Comment on above: Performed By: #### A DIFF, CBC, BMP, ANEU, MG, GFR #### [address] [address] Chloride [Moles/Vol] 93 mmol/L Low 98-110 [facility] MAIN Comment on above: Performed By: #### A DIFF, CBC, BMP, ANEU, MG, GFR #### [address] [address] CO2 [Moles/Vol] 31 mmol/L Normal 22-32 [facility] MAIN Comment on above: Performed By: #### A DIFF, CBC, BMP, ANEU, MG, GFR #### [address] [address] Creatinine [Mass/Vol] 0.64 mg/dL Normal 0.60-1.40 [facility] MAIN Comment on above: Result Comment: Test ing performed on Inkerwang analyzer using enzymatic creatinine methodology. Performed By: #### A DIFF, CBC, BMP, ANEU, MG, GFR #### [address] [address] Electrolyte Balance 7.0 mEq/L Normal 4.0-15.0 [facility] MAIN Comment on above: Performed By: #### A DIFF, CBC, BMP, ANEU, MG, GFR #### [address] [address] Globulin 3.3 G/dL Normal 2.5-4.2 [facility] MAIN Comment on above: Performed By: #### A DIFF, CBC, BMP, ANEU, MG, GFR #### [address] [address] Glucose [Mass/Vol] 192 mg/dL High 82-115 [facility] MAIN Comment on above: Performed By: #### A DIFF, CBC, BMP, ANEU, MG, GFR #### [address] [address] Potassium [Moles/Vol] 3.9 mmol/L Normal 3.5-5.0 [facility] MAIN Comment on above: Performed By: #### A DIFF, CBC, BMP, ANEU, MG, GFR #### [address] [address] Sodium [Moles/Vol] 131 mmol/L Low 136-145 [facility] MAIN Comment on above: Performed By: #### A DIFF, CBC, BMP, ANEU, MG, GFR #### [facility] [address] [place] [address] Total Protein 6.2 G/dL Normal 5.7-8.2 [facility] MAIN Comment on above: Performed By: #### A DIFF, CBC, BMP, ANEU, MG, GFR #### [facility] [address] [place] [address] Urea nitrogen [Mass/Vol] 25.0 mg/dL High 8.0-22.0 [facility] MAIN Comment on above: Performed By: #### A DIFF, CBC, BMP, ANEU, MG, GFR #### [facility] [address] [place] [address] THORAX W/ CONTRASTon 10-05 CT THORAX W/ CONTRAST ORIGINAL EXAMINATION: CT OF THE CHEST WITH CONTRAST 10/26/2024 10:05 pm TECHNIQUE: CT of the chest was performed with the administration of intravenous contrast. Multiplanar reformatted images are provided for review. Automated exposure control, iterative reconstruction, and/or weight based adjustment of the mA/kV was utilized to reduce the radiation dose to as low as reasonably achievable. COMPARISON: Chest x-ray on 10/26/2024 HISTORY: ORDERING SYSTEM PROVIDED HISTORY: Reason for Exam: Dyspnea, chronic, unclear etiology FINDINGS: Mediastinum: There is no mediastinal mass or lymph node enlargement. Moderate cardiomegaly is present with atherosclerotic coronary artery calcification and mitral annulus calcification. No pericardial fluid is present. The thoracic aorta is nonaneurysmal. There is no aortic dissection. Lungs/pleura: There is moderate airspace disease in both lower lobes posteriorly. A small right pleural effusion is present. There is no significant left pleural fluid. There is no pneumothorax. Upper lobes are well aerated. Upper Abdomen: No acute findings. Soft Tissues/Bones: There are nondisplaced fractures of the right 3rd through 9th ribs that are of indeterminate age. Nondisplaced fractures of the left 3rd, 4th, and 5th ribs are also present. The thoracic spine alignment is normal. Mild anterior compression of T2 vertebral body is unchanged compared with CT of the cervical spine on 02/20/2024. There is moderate compression of the T3 vertebral body that is a new finding since 02/20/2024. Other thoracic vertebral bodies are normal in height. IMPRESSION: 1. Moderate bilateral lower lobe airspace disease with small right pleural effusion. 2. Moderate cardiomegaly with atherosclerotic coronary artery calcification. 3. Moderate T3 vertebral body compression fracture is new since 02/20/2024. 4. Mild T2 compression fracture is unchanged since 02/20/2024. 5. Multiple bilateral rib fractures are of indeterminate age. Interpreted by: Giovani Warren MD Preliminary Report By: Giovani Warren MD Electronically signed By Giovani Warren MD Dictated Date: 10/27/2024 3:47:10 AM Prelim Date: 10/27/2024 3:57:32 AM Sign Date: 10/27/2024 3:57:32 AM Ordering Provider: BELKYS ALCANTAR [facility] MAIN LABORATORYOrdered By: SYSTEM SYSTEM on 10-27-2024 Albumin BCP dye [Mass/Vol] 2.9 G/dL Low 3.2 - 4.8 G/dL AH ADM SS Albumin/Globulin [Mass ratio] 0.9 {ratio} Normal 0.9 - 1.6 ratio AH ADM SS ALP [Catalytic activity/Vol] 68 U/L Normal 38 - 126 U/L AH ADM SS ALT No additional P-5'-P [Catalytic activity/Vol] 39 U/L Normal 12 - 55 U/L AH ADM SS AST [Catalytic activity/Vol] 34 U/L Normal 8 - 34 U/L AH ADM SS Basophils (Bld) [#/Vol] 0.0 103/mcL Normal 0.0 - 0.3 10^3/mcL AH Workflow SS Basophils/100 WBC (Bld) 0.1 % Normal 0.0 - 2.5 % AH Workflow SS Bilirubin [Mass/Vol] 0.60 mg/dL Normal 0.20 - 1.20 mg/dL AH ADM SS Comment on above: Interpretive Data: U se of this assay is not recommended for patients undergoing treatment with eltrombopag due to the potential for falsely elevated results. Calcium [Mass/Vol] 9.4 mg/dL Normal 8.7 - 10. 4 mg/dL AH ADM SS Chloride [Moles/Vol] 93 mmol/L Low 98 - 11 0 mEq/L AH ADM SS CO2 [Moles/Vol] 31 mmol/L Normal 22 - 32 mEq/L AH ADM SS Creatinine [Mass/Vol] 0.64 mg/dL Normal 0.60 - 1.40 mg/dL ADM SS Comment on above: Interpretive Data: T esting performed on Inkerwang analyzer using enzymatic creatinine methodology. Electrolyte Balance 7.0 mEq/L Normal 4.0 - 15 .0 mEq/L ADM SS Eosinophils (Bld) [#/Vol] 0.0 103/mcL Normal 0.0 - 0.7 10^3/mcL Workflow SS Eosinophils/100 WBC (Bld) 0.5 % Normal 0.0 - 6.0 % Workflow SS Erythrocyte distribution width (RBC) [Ratio] 14.3 % Normal 11.5 - 15.5 % Workflow SS Estimated Glomerular Filtration Rate 93 ml/min/1.73sqm Invalid Interpretation Code Chemistry S Comment on above: Interpretive Data: Stages of Chronic Kidney Disease (CKD) Stage Description eGFR(ml/min/1.73 sq.m.) CKD 1 Normal kidney function or >=90 normal kindney function with possible kidney damage (ex. Proteinuria) CKD 2 Kidney damage with mild loss 60-89 of kidney function CKD 3a Mild to moderate loss of kidney 45-59 function CKD 3b Moderate to severe loss of 30-44 of kindey function CKD 4 Severe loss of kidney function 15-29 CKD 5 Kidney failure <15 Note: (go live 2024) the eGFR calculation was updated to the 2020 CKD-EPI creatinine equation without a race factor to calculate the eGFR results. Globulin 3.3 G/dL Normal 2.5 - 4.2 G/dL ADM SS Glucose [Mass/Vol] 192 mg/dL High 82 - 115 mg/dL ADM SS Hematocrit (Bld) [Volume fraction] 35.2 % Low 40.0 - 52.0 % Workflow SS Hemoglobin (Bld) [Mass/Vol] 12.2 G/dL Low 13.0 - 17.5 G/dL Workflow SS Lymphocytes (Bld) [#/Vol] 0.9 103/mcL Normal 0.9 - 4.3 10^3/mcL Workflow SS Lymphocytes/100 WBC (Bld) 9.3 % Low 20.0 - 40.0 % Workflow SS Magnesium [Mass/Vol] 1.8 mg/dL Normal 1.6 - 2 .4 mg/dL AH ADM SS MCH (RBC) [Entitic mass] 31.6 pg Normal 27.0 - 33.0 pg AH Workflow SS MCHC 34.8 G/dL Normal 32.0 - 36.0 G/dL AH Workflow SS MCV (RBC) [Entitic vol] 91.0 fL Normal 81.0 - 100.0 fL AH Workflow SS Monocytes (Bld) [#/Vol] 0.7 103/mcL Normal 0.1 - 1.4 10^3/mcL AH Workflow SS Monocytes/100 WBC (Bld) 7.4 % Normal 2.0 - 13.0 % AH Workflow SS Neutrophils (Bld) [#/Vol] 8.1 103/mcL Normal 2.3 - 8.1 10^3/mcL AH Workflow SS Neutrophils/100 WBC (Bld) 82.7 % High 50.0 - 75.0 % AH Workflow SS Platelet mean volume (Bld) [Entitic vol] 7.5 fL Normal 6.4 - 10.5 fL AH Workflow SS Platelets (Bld) [#/Vol] 288 103/mcL Normal 150 - 450 10^3/mcL AH Workflow SS Potassium [Moles/Vol] 3.9 mmol/L Normal 3.5 - 5.0 mEq/L AH ADM SS Protein [Mass/Vol] 6.2 G/dL Normal 5.7 - 8.2 G/dL AH ADM SS RBC (Bld) [#/Vol] 3.87 106/mcL Low 4.50 - 6.0 0 10^6/mcL AH Workflow SS Sodium [Moles/Vol] 131 mmol/L Low 136 - 145 mEq/L AH ADM SS Urea nitrogen [Mass/Vol] 25.0 mg/dL High 8.0 - 22.0 mg/dL AH ADM SS Urea nitrogen/Creatinine [Mass ratio] 39.1 ratio High 10.0 - 22.0 ratio ADM SS WBC (Bld) [#/Vol] 9.8 103/mcL Normal 4.5 - 10.8 10^3/mcL Workflow SS MGon 10-27-2024 Magnesium [Mass/Vol] 1.8 mg/dL Normal 1.6-2.4 [facility] MAIN Comment on above: Performed By: #### A DIFF, CBC, BMP, ANEU, MG, GFR #### [place] [address] .Auto Diffon 10-26-2024 Basophil, Absolute 0.0 10 3/mcL Normal 0.0-0.3 [facility] MAIN Comment on above: Performed By: #### A DIFF, CBC, BMP, ANEU, MG, GFR #### [address] [address] Basophils/100 WBC (Bld) 0.2 % Normal 0.0-2.5 [facility] MAIN Comment on above: Performed By: #### A DIFF, CBC, BMP, ANEU, MG, GFR #### [address] [address] Eosinophil, Absolute 0.0 10 3/mcL Normal 0.0-0.7 [facility] MAIN Comment on above: Performed By: #### A DIFF, CBC, BMP, ANEU, MG, GFR #### [address] [address] Eosinophils/100 WBC (Bld) 0.6 % Normal 0.0-6.0 [facility] MAIN Comment on above: Performed By: #### A DIFF, CBC, BMP, ANEU, MG, GFR #### [address] [address] Lymphocyte, Absolute 1.0 10 3/mcL Normal 0.9-4.3 [facility] MAIN Comment on above: Performed By: #### A DIFF, CBC, BMP, ANEU, MG, GFR #### [address] [address] Lymphocytes/100 WBC (Bld) 11.3 % Low 20.0-40.0 [facility] MAIN Comment on above: Performed By: #### A DIFF, CBC, BMP, ANEU, MG, GFR #### [address] [address] Monocyte, Absolute 0.8 10 3/mcL Normal 0.1-1.4 [facility] MAIN Comment on above: Performed By: #### A DIFF, CBC, BMP, ANEU, MG, GFR #### [address] [address] Monocytes/100 WBC (Bld) 9.4 % Normal 2.0-13.0 [facility] MAIN Comment on above: Performed By: #### A DIFF, CBC, BMP, ANEU, MG, GFR #### [address] [address] Neutrophils/100 WBC (Bld) 78.5 % High 50.0-75.0 [facility] MAIN Comment on above: Performed By: #### A DIFF, CBC, BMP, ANEU, MG, GFR #### [address] [address] .GFRon 10-26-2024 Estimated Glomerular Filtration Rate 96 ml/min/1.73sqm Normal [facility] MAIN Comment on above: Result Comment: Stages of Chronic Kidney Disease (CKD) Stage Description eGFR(ml/min/1.73 sq.m.) CKD 1 Normal kidney function or >=90 normal kindney function with possible kidney damage (ex. Proteinuria) CKD 2 Kidney damage with mild loss 60-89 of kidney function CKD 3a Mild to moderate loss of kidney 45-59 function CKD 3b Moderate to severe loss of 30-44 of kindey function CKD 4 Severe loss of kidney function 15-29 CKD 5 Kidney failure <15 Note: (go live 2024) the eGFR calculation was updated to the 2020 CKD-EPI creatinine equation without a race factor to calculate the eGFR results. Performed By: #### A DIFF, CBC, BMP, ANEU, MG, GFR #### [address] [address] .NEUABSon 10-26-2024 Neutrophil, Absolute 6.8 10 3/mcL Normal 2.3-8.1 [facility] MAIN Comment on above: Performed By: #### A DIFF, CBC, BMP, ANEU, MG, GFR #### [address] [address] CBCon 10-26-2024 Erythrocyte distribution width (RBC) [Ratio] 14.0 % Normal 11.5-15.5 [facility] MAIN Comment on above: Performed By: #### A DIFF, CBC, BMP, ANEU, MG, GFR #### [address] [address] Hematocrit (Bld) [Volume fraction] 37.1 % Low 40.0-52.0 [facility] MAIN Comment on above: Performed By: #### A DIFF, CBC, BMP, ANEU, MG, GFR #### [place] [address] Hgb 12.7 G/dL Low 13.0-17.5 [facility] MAIN Comment on above: Performed By: #### A DIFF, CBC, BMP, ANEU, MG, GFR #### [place] [address] MCH (RBC) [Entitic mass] 31.5 pg Normal 27.0-33.0 [facility] MAIN Comment on above: Performed By: #### A DIFF, CBC, BMP, ANEU, MG, GFR #### [place] [address] MCHC 34.4 G/dL Normal 32.0-36.0 [facility] MAIN Comment on above: Performed By: #### A DIFF, CBC, BMP, ANEU, MG, GFR #### [place] [address] MCV (RBC) [Entitic vol] 91.8 fL Normal 81.0-100.0 [facility] MA[facility] Comment on above: Performed By: #### A DIFF, CBC, BMP, ANEU, MG, GFR #### [place] [address] Platelet 258 10 3/mcL Normal 150-450 [facility] MAIN Comment on above: Performed By: #### A DIFF, CBC, BMP, ANEU, MG, GFR #### [place] [address] Platelet mean volume (Bld) [Entitic vol] 7.4 fL Normal 6.4-10.5 [facility] MAIN Comment on above: Performed By: #### A DIFF, CBC, BMP, ANEU, MG, GFR #### [place] [address] RBC 4.04 10 6/mcL Low 4.50-6.00 [facility] MAIN Comment on above: Performed By: #### A DIFF, CBC, BMP, ANEU, MG, GFR #### [place] [address] WBC 8.7 10 3/mcL Normal 4.5-10.8 [facility] MAIN Comment on above: Performed By: #### A DIFF, CBC, BMP, ANEU, MG, GFR #### [place] [id number] CMPon 10-26-2024 Albumin Level 3.1 G/dL Low 3.2-4.8 [facility] MAIN Comment on above: Performed By: #### A DIFF, CBC, BMP, ANEU, MG, GFR #### [place] [id number] Albumin/Globulin [Mass ratio] 1.0 {ratio} Normal 0.9-1.6 [facility] MAIN Comment on above: Performed By: #### A DIFF, CBC, BMP, ANEU, MG, GFR #### [place] [address] ALP [Catalytic activity/Vol] 62 U/L Normal 38-126 [facility] MAIN Comment on above: Performed By: #### A DIFF, CBC, BMP, ANEU, MG, GFR #### [place] [address] ALT [Catalytic activity/Vol] 26 U/L Normal 12-55 [facility] MAIN Comment on above: Performed By: #### A DIFF, CBC, BMP, ANEU, MG, GFR #### [place] [id number] AST [Catalytic activity/Vol] 27 U/L Normal 8-34 [facility] MAIN Comment on above: Performed By: #### A DIFF, CBC, BMP, ANEU, MG, GFR #### [place] [address] Bili Total 0.70 mg/dL Normal 0.20-1.20 [facility] MAIN Comment on above: Result Comment: Use of this assay is not recommended for patients undergoing treatment with eltrombopag due to the potential for falsely elevated results. Performed By: #### A DIFF, CBC, BMP, ANEU, MG, GFR #### [place] [address] BUN/Creatinine Ratio 39.7 ratio High 10.0-22.0 [facility] MAIN Comment on above: Performed By: #### A DIFF, CBC, BMP, ANEU, MG, GFR #### [place] [id number] Calcium [Mass/Vol] 9.2 mg/dL Normal 8.7-10.4 [facility] MAIN Comment on above: Performed By: #### A DIFF, CBC, BMP, ANEU, MG, GFR #### [place] [id number] Chloride [Moles/Vol] 91 mmol/L Low 98-110 [facility] MAIN Comment on above: Performed By: #### A DIFF, CBC, BMP, ANEU, MG, GFR #### [place] [id number] CO2 [Moles/Vol] 28 mmol/L Normal 22-32 [facility] MAIN Comment on above: Performed By: #### A DIFF, CBC, BMP, ANEU, MG, GFR #### [place] [id number] Creatinine [Mass/Vol] 0.58 mg/dL Low 0.60-1.40 [facility] MAIN Comment on above: Result Comment: Test ing performed on Inkerwang analyzer using enzymatic creatinine methodology. Performed By: #### A DIFF, CBC, BMP, ANEU, MG, GFR #### [place] [address] Electrolyte Balance 10.0 mEq/L Normal 4.0-15.0 [facility] MAIN Comment on above: Performed By: #### A DIFF, CBC, BMP, ANEU, MG, GFR #### [address] [address] Globulin 3.2 G/dL Normal 2.5-4.2 [facility] MAIN Comment on above: Performed By: #### A DIFF, CBC, BMP, ANEU, MG, GFR #### [place] [id number] Glucose [Mass/Vol] 154 mg/dL High 82-115 [facility] MAIN Comment on above: Performed By: #### A DIFF, CBC, BMP, ANEU, MG, GFR #### [facility] [address] [place], [place] [address] Potassium [Moles/Vol] 3.9 mmol/L Normal 3.5-5.0 [facility] Comment on above: Performed By: #### A DIFF, CBC, BMP, ANEU, MG, GFR #### [facility] [address] [place] [id number] Sodium [Moles/Vol] 129 mmol/L Low 136-145 [facility] Comment on above: Performed By: #### A DIFF, CBC, BMP, ANEU, MG, GFR #### [facility] [address] [place] [id number] Total Protein 6.3 G/dL Normal 5.7-8.2 [facility] Comment on above: Performed By: #### A DIFF, CBC, BMP, ANEU, MG, GFR #### [place] [id number] [place] [id number] Urea nitrogen [Mass/Vol] 23.0 mg/dL High 8.0-22.0 [facility] Comment on above: Performed By: #### A DIFF, CBC, BMP, ANEU, MG, GFR #### [address] [address] LABORATORYOrdered By: SYSTEM SYSTEM on 10-26-2024 Basophils (Bld) [#/Vol] 0.0 103/mcL Normal 0.0 - 0.3 10^3/mcL AH Workflow SS Basophils/100 WBC (Bld) 0.2 % Normal 0.0 - 2.5 % AH Workflow SS Eosinophils (Bld) [#/Vol] 0.0 103/mcL Normal 0.0 - 0.7 10^3/mcL AH Workflow SS Eosinophils/100 WBC (Bld) 0.6 % Normal 0.0 - 6.0 % AH Workflow SS Lymphocytes (Bld) [#/Vol] 1.0 103/mcL Normal 0.9 - 4.3 10^3/mcL AH Workflow SS Lymphocytes/100 WBC (Bld) 11.3 % Low 20.0 - 40.0 % AH Workflow SS Monocytes (Bld) [#/Vol] 0.8 103/mcL Normal 0.1 - 1.4 10^3/mcL AH Workflow SS Monocytes/100 WBC (Bld) 9.4 % Normal 2.0 - 13.0 % AH Workflow SS Neutrophils (Bld) [#/Vol] 6.8 103/mcL Normal 2.3 - 8.1 10^3/mcL AH Workflow SS Neutrophils/100 WBC (Bld) 78.5 % High 50.0 - 75.0 % AH Workflow SS MGon 10-26-2024 Magnesium [Mass/Vol] 1.9 mg/dL Normal 1.6-2.4 [facility] Comment on above: Performed By: #### A DIFF, CBC, BMP, ANEU, MG, GFR #### [address] [address] XR CHEST 1 VIEWon 10-26-2024 XR CHEST 1 VIEW ORIGINAL EXAMINATION: ONE XRAY VIEW OF THE CHEST 10/26/2024 10:17 am COMPARISON: 10/25/2024 HISTORY: ORDERING SYSTEM PROVIDED HISTORY: Reason for Exam: hypoxia FINDINGS: Cardiomegaly. Aortic arch calcifications. No overt edema. Left retrocardiac opacity with mild blunting of the left costophrenic angle. Right basilar opacity blunting the right costophrenic angle. No pneumothorax. Left humeral head suture anchor. Osteopenia. Mitral valve calcifications. IMPRESSION: Bilateral pleural effusions of small volume. Associated bibasilar atelectasis and or consolidation. Interpreted by: Mirian Denny Preliminary Report By: Mirian Denny Electronically signed By Mirian Denny Dictated Date: 10/26/2024 10:30:35 AM Prelim Date: 10/26/2024 10:31:55 AM Sign Date: 10/26/2024 10:31:55 AM Ordering Provider: DEIDRA Spangler [facility] .Auto Diffon 10-25-2024 Basophil, Absolute 0.0 10 3/mcL Normal 0.0-0.3 [facility] Comment on above: Performed By: #### U A UAMIC #### [address] [address] Basophils/100 WBC (Bld) 0.4 % Normal 0.0-2.[address] [facility] Comment on above: Performed By: #### U A UAMIC #### [address] [address] Eosinophil, Absolute 0.1 10 3/mcL Normal 0.0-0.7 [facility] Comment on above: Performed By: #### U A, UAMIC #### [facility] [address] [place] [address] Eosinophils/100 WBC (Bld) 0.9 % Normal 0.0-6.0 [facility] Comment on above: Performed By: #### U A, UAMIC #### [facility] [address] [place] [address] Lymphocyte, Absolute 0.7 10 3/mcL Low 0.9-4.3 [facility] Comment on above: Performed By: #### U A, UAMIC #### [address] [address] Lymphocytes/100 WBC (Bld) 9.2 % Low 20.0-40.0 [facility] Comment on above: Performed By: #### U A, UAMIC #### [address] [address] Monocyte, Absolute 0.8 10 3/mcL Normal 0.1-1.4 [facility] Comment on above: Performed By: #### U A, UAMIC #### [address] [address] Monocytes/100 WBC (Bld) 10.0 % Normal 2.0-13.0 [facility] Comment on above: Performed By: #### U A, UAMIC #### [address] [address] Neutrophils/100 WBC (Bld) 79.5 % High 50.0-75.0 [facility] Comment on above: Performed By: #### U A, UAMIC #### [address] [address] .GFRon 10-25-2024 Estimated Glomerular Filtration Rate 93 ml/min/1.73sqm Normal [facility] Comment on above: Result Comment: Stages of Chronic Kidney Disease (CKD) Stage Description eGFR(ml/min/1.73 sq.m.) CKD 1 Normal kidney function or >=90 normal kindney function with possible kidney damage (ex. Proteinuria) CKD 2 Kidney damage with mild loss 60-89 of kidney function CKD 3a Mild to moderate loss of kidney 45-59 function CKD 3b Moderate to severe loss of 30-44 of kindey function CKD 4 Severe loss of kidney function 15-29 CKD 5 Kidney failure <15 Note: (go live 2024) the eGFR calculation was updated to the 2020 CKD-EPI creatinine equation without a race factor to calculate the eGFR results. Performed By: #### BERNA Frank #### [place] [address] .NEUABSon 10-25-2024 Neutrophil, Absolute 6.2 10 3/mcL Normal 2.3-8.1 [facility] Comment on above: Performed By: #### BERNA Frank #### [place] [id number] B12on 10-25-2024 Cobalamin (Vitamin B12) [Mass/Vol] 377 pg/mL Normal 211-911 [facility] Comment on above: Performed By: #### BERNA Frank #### [place] [id number] BGon 10-25-2024 Base excess Calc (Bld) [Moles/Vol] 1.2 mmol/L Normal [facility] Comment on above: Performed By: #### B G #### [place] [id number] CO2 [Moles/Vol] 25.2 mmol/L Normal 22.0-30.0 [facility] Comment on above: Performed By: #### B G #### [place] [id number] HCO3 (Bld) [Moles/Vol] 24.2 mmol/L Normal 21.0-29.0 [facility] Comment on above: Performed By: #### B G #### [place] [id number] Oxygen (Bld) [Partial pressure] 107.5 mm[Hg] Normal 74.0-108.0 [facility] Comment on above: Performed By: #### B G #### [place] [id number] Oxygen saturation in Blood 98.4 % High 92.0-96.0 [facility] Comment on above: Performed By: #### B G #### [address] [address] pCO2 33.2 mmHg Normal 32.0-46.0 [facility] Comment on above: Performed By: #### B G #### [address] [address] pH (Bld) 7.480 [pH] High 7.380-7.460 [facility] Comment on above: Performed By: #### B G #### [address] [address] Base excess Calc (Bld) [Moles/Vol] 3.1 mmol/L Normal [facility] Comment on above: Performed By: #### B G #### [address] [address] CO2 [Moles/Vol] 26.6 mmol/L Normal 22.0-30.0 [facility] Comment on above: Performed By: #### B G #### [address] [address] HCO3 (Bld) [Moles/Vol] 25.6 mmol/L Normal 21.0-29.0 [facility] Comment on above: Performed By: #### B G #### [address] [address] Oxygen (Bld) [Partial pressure] 35.7 mm[Hg] Critically abnormal 74.0-108.0 [facility] Comment on above: Performed By: #### B G #### [address] [address] Oxygen saturation in Blood 74.9 % Low 92.0-96.0 [facility] Comment on above: Performed By: #### B G #### [address] [address] pCO2 33.0 mmHg Normal 32.0-46.0 [facility] Comment on above: Performed By: #### B G #### [address] [address] pH (Bld) 7.508 [pH] High 7.380-7.460 [facility] Comment on above: Performed By: #### B G #### [place] [address] CBCon 10-25-2024 Erythrocyte distribution width (RBC) [Ratio] 13.5 % Normal 11.5-15.5 [facility] Comment on above: Performed By: #### U A UAMIC #### [place] [address] Hematocrit (Bld) [Volume fraction] 38.0 % Low 40.0-52.0 [facility] Comment on above: Performed By: #### U Shea UAMIC #### [place] [address] Hgb 13.0 G/dL Normal 13.0-17.5 [facility] Comment on above: Performed By: #### U A UAMIC #### [place] [address] MCH (RBC) [Entitic mass] 31.6 pg Normal 27.0-33.0 [facility] Comment on above: Performed By: #### U Shea UAMIC #### [place] [address] MCHC 34.4 G/dL Normal 32.0-36.0 [facility] Comment on above: Performed By: #### U A UAMIC #### [place] [address] MCV (RBC) [Entitic vol] 91.9 fL Normal 81.0-100.0 [facility] Comment on above: Performed By: #### U A UAMIC #### [place] [address] Platelet 258 10 3/mcL Normal 150-450 [facility] Comment on above: Performed By: #### U A UAMIC #### [place] [address] Platelet mean volume (Bld) [Entitic vol] 7.5 fL Normal 6.4-10.5 [facility] Comment on above: Performed By: #### Anatoly Valdivia UAMIC #### [place] [address] RBC 4.13 10 6/mcL Low 4.50-6.00 [facility] Comment on above: Performed By: #### Anatloy Valdivia UAMIC #### [place] [address] WBC 7.8 10 3/mcL Normal 4.5-10.8 [facility] Comment on above: Performed By: #### Anatoly Valdivia UAMIC #### [place] [address] CMPon 10-25-2024 Albumin Level 3.6 G/dL Normal 3.2-4.8 [facility] Comment on above: Performed By: #### Anatoly Valdivia UAMIC #### [place] [address] Albumin/Globulin [Mass ratio] 1.1 {ratio} Normal 0.9-1.6 [facility] Comment on above: Performed By: #### Anatoly Valdivia UAMIC #### [place] [address] ALP [Catalytic activity/Vol] 73 U/L Normal 38-126 [facility] Comment on above: Performed By: #### Anatoly Valdivia UACARRILLO #### [place] [address] ALT [Catalytic activity/Vol] 19 U/L Normal 12-55 [facility] Comment on above: Performed By: #### Anatoly Valdivia UAMIC #### [place] [address] AST [Catalytic activity/Vol] 24 U/L Normal 8-34 [facility] Comment on above: Performed By: #### Anatoly Valdivia UAMIC #### [place] [address] Bili Total 0.70 mg/dL Normal 0.20-1.20 [facility] Comment on above: Result Comment: Use of this assay is not recommended for patients undergoing treatment with eltrombopag due to the potential for falsely elevated results. Performed By: #### Anatoly Valdivia UACARRILLO #### [address] [address] BUN/Creatinine Ratio 20.3 ratio Normal 10.0-22.0 [facility] Comment on above: Performed By: #### BERNA Frank #### [address] [address] Calcium [Mass/Vol] 8.8 mg/dL Normal 8.7-10.4 [facility] Comment on above: Performed By: #### Anatoly Valdivia UACARRILLO #### [address] [address] Chloride [Moles/Vol] 87 mmol/L Low 98-110 [facility] Comment on above: Performed By: #### BERNA Frank #### [place] [id number] CO2 [Moles/Vol] 27 mmol/L Normal 22-32 [facility] Comment on above: Performed By: #### BERNA Frank #### [place] [id number] Creatinine [Mass/Vol] 0.64 mg/dL Normal 0.60-1.40 [facility] Comment on above: Result Comment: Test ing performed on Inkerwang analyzer using enzymatic creatinine methodology. Performed By: #### BERNA Frank #### [address] [address] Electrolyte Balance 16.0 mEq/L High 4.0-15.0 [facility] Comment on above: Performed By: #### Anatoly Valdivia UACARRILLO #### [address] [address] Globulin 3.3 G/dL Normal 2.5-4.2 [facility] Comment on above: Performed By: #### Anatoly Valdivia UACARRILLO #### [place] [id number] Glucose [Mass/Vol] 169 mg/dL High 82-115 [facility] Comment on above: Performed By: #### Anatoly Valdivia UACARRILLO #### [place] [id number] Potassium [Moles/Vol] 3.3 mmol/L Low 3.5-5.0 [facility] Comment on above: Performed By: #### U A, UAMIC #### [place] [address] Sodium [Moles/Vol] 130 mmol/L Low 136-145 [facility] Comment on above: Performed By: #### U A, UAMIC #### [place] [address] Total Protein 6.9 G/dL Normal 5.7-8.2 [facility] Comment on above: Performed By: #### U A, UAMIC #### [place] [address] Urea nitrogen [Mass/Vol] 13.0 mg/dL Normal 8.0-22.0 [facility] Comment on above: Performed By: #### U A, UAMIC #### [place] [address] CVFLURVon 10-25-2024 FLU A PCR Negative Normal Negative [facility] Comment on above: Result Comment: Note s Performed By: #### U A, UAMIC #### [place] [address] FLU B PCR Negative Normal Negative [facility] Comment on above: Result Comment: Note s Performed By: #### U A, UAMIC #### [place] [address] RSV PCR Negative Normal Negative [facility] Comment on above: Result Comment: Note s Performed By: #### U A, UAMIC #### [place] [address] SARS-CoV-2 (COVID-19) RNA MIRNA+probe Ql (Unsp spec) Negative Normal Negative [facility] Comment on above: Result Comment: Note s Results from the Xpert Xpress SARS-CoV-2/Flu/RSV or Xpert Xpress SARS-CoV-2 only test should be correlated with the clinical history, epidemiological data, and other data available to the clinician evaluating the patient. Performance of the Xpert Xpress SARS-CoV-2/Flu/RSV or Xpert Xpress SARS-CoV-2 only test has only been established in nasopharyngeal swab specimens. Erroneous test results might occur from improper specimen collection; failure to follow the recommended sample collection, handling, and storage procedures; technical error; or sample mix-up.False negative results may occur if virus is present at levels below the analytical limit of detection. Viral nucleic acid may persist in vivo, independent of virus viability. Detection of analyte target(s) does not imply that the corresponding virus(es) are infectious or are the causative agents for clinical symptoms.Recent patient exposure to FluMist or other live attenuated influenza vaccines may cause inaccurate positive results. FDA Approved. Performed By: #### U A, UAMIC #### [place] [address] Tres 10-25-2024 Ferritin [Mass/Vol] 108.3 ng/mL Normal 26.0-388.0 [facility] Comment on above: Performed By: #### U A UAMIC #### [place] [address] FESon 10-25-2024 Iron [Mass/Vol] 24 ug/dL Low 65-175 [facility] Comment on above: Performed By: #### B G #### [place] [address] Iron Sat 9 % Normal [facility] Comment on above: Performed By: #### B G #### [place] [address] TIBC 272 mcg/dL Normal 250-500 [facility] Comment on above: Performed By: #### B G #### [place] [address] LABORATORYOrdered By: Olinda Cisneros on 10-25-2024 FLUAV RNA MIRNA+probe Ql (Resp) Negative 14 (10/25/24 7:02 AM) Normal Negative AH Auto Viro/Sero SS Comment on above: Result Comment: Note s FLUBV RNA MIRNA+probe Ql (Resp) Negative 15 (10/25/24 7:02 AM) Normal Negative AH Auto Viro/Sero SS Comment on above: Result Comment: Note s RSV PCR Negative 16 (10/25/24 7:02 AM) Normal Negative AH Auto Viro/Sero SS Comment on above: Result Comment: Note s SARS-CoV-2 (COVID-19) RNA MIRNA+probe Ql (Resp) Negative , (10/25/24 7:02 AM) Normal Negative AH Auto Viro/Sero SS Comment on above: Result Comment: Note s Interpretive Data: R esults from the Xpert Xpress SARS-CoV-2/Flu/RSV or Xpert Xpress SARS-CoV-2 only test should be correlated with the clinical history, epidemiological data, and other data available to the clinician evaluating the patient. Performance of the Xpert Xpress SARS-CoV-2/Flu/RSV or Xpert Xpress SARS-CoV-2 only test has only been established in nasopharyngeal swab specimens. Erroneous test results might occur from improper specimen collection; failure to follow the recommended sample collection, handling, and storage procedures; technical error; or sample mix-up.False negative results may occur if virus is present at levels below the analytical limit of detection. Viral nucleic acid may persist in vivo, independent of virus viability. Detection of analyte target(s) does not imply that the corresponding virus(es) are infectious or are the causative agents for clinical symptoms.Recent patient exposure to FluMist or other live attenuated influenza vaccines may cause inaccurate positive results. FDA Approved. LABORATORYOrdered By: Emma Montoya on 10-25-2024 CO2 [Moles/Vol] 25.2 mmol/L Normal 22.0 - 30.0 mmol/L Main Rapid Comm SS HCO3 (Bld) [Moles/Vol] 24.2 mmol/L Normal 21.0 - 29.0 mmol/L Main Rapid Comm SS Oxygen (Bld) [Partial pressure] 107.5 mm[Hg] Normal 74.0 - 108.0 mm Hg Main Rapid Comm SS pCO2 33.2 mm[Hg] Normal 32.0 - 46.0 mm Hg Main Rapid Comm SS pH (Bld) 7.480 [pH] High 7.380 - 7.460 Main Rapid Comm SS Sodium [Moles/Vol] 1.2 mmol/L Invalid Interpretation Code Main Rapid Comm SS LABORATORYOrdered By: SYSTEM SYSTEM on 10-25-2024 Basophils (Bld) [#/Vol] 0.0 103/mcL Normal 0.0 - 0.3 10^3/mcL Workflow SS Basophils/100 WBC (Bld) 0.4 % Normal 0.0 - 2.5 % Workflow SS Cobalamin (Vitamin B12) [Mass/Vol] 377 pg/mL Normal 211 - 911 pg/mL ADM SS Eosinophils (Bld) [#/Vol] 0.1 103/mcL Normal 0.0 - 0.7 10^3/mcL Workflow SS Eosinophils/100 WBC (Bld) 0.9 % Normal 0.0 - 6.0 % Workflow SS Ferritin [Mass/Vol] 108.3 ng/mL Normal 26.0 - 3 88.0 ng/mL ADM SS Iron [Mass/Vol] 24 ug/dL Low 65 - 175 mcg/dL ADM SS Iron binding capacity [Mass/Vol] 272 mcg/dL Normal 250 - 500 mcg/dL ADM SS Iron saturation [Mass fraction] 9 % Invalid Interpretation Code ADM SS Lymphocytes (Bld) [#/Vol] 0.7 103/mcL Low 0.9 - 4.3 10^3/mcL Workflow SS Lymphocytes/100 WBC (Bld) 9.2 % Low 20.0 - 40.0 % Workflow SS Monocytes (Bld) [#/Vol] 0.8 103/mcL Normal 0.1 - 1.4 10^3/mcL Workflow SS Monocytes/100 WBC (Bld) 10.0 % Normal 2.0 - 13.0 % Workflow SS Neutrophils (Bld) [#/Vol] 6.2 103/mcL Normal 2.3 - 8.1 10^3/mcL Workflow SS Neutrophils/100 WBC (Bld) 79.5 % High 50.0 - 75.0 % Workflow SS LABORATORYOrdered By: Pawel ruvalcaba on 10-25-2024 CO2 [Moles/Vol] 26.6 mmol/L Normal 22.0 - 30.0 mmol/L Main Rapid Comm SS HCO3 (Bld) [Moles/Vol] 25.6 mmol/L Normal 21.0 - 29.0 mmol/L Main Rapid Comm SS Oxygen (Bld) [Partial pressure] 35.7 mm[Hg] Invalid Interpretation Code 74.0 - 108.0 mm Hg Main Rapid Comm SS pCO2 33.0 mm[Hg] Normal 32.0 - 46.0 mm Hg Main Rapid Comm SS pH (Bld) 7.508 [pH] High 7.380 - 7.460 Main Rapid Comm SS Sodium [Moles/Vol] 3.1 mmol/L Invalid Interpretation Code AH Main Rapid Comm SS MGon 10-25-2024 Magnesium [Mass/Vol] 1.8 mg/dL Normal 1.6-2.4 [facility] Comment on above: Performed By: #### U A, UAMIC #### [facility] [address] [place] [address] No Panel Informationon 10-25 Legionella Urine Ag Presumptive negative for L. pneumophila serogroup 1 antigen in urine, suggesting no recent or current infection. Legionnaire's disease cannot be ruled out since other serogroups and species may also cause disease. [facility] Streptococcus Pneumoniae Urine Antig Presumptive negative for pneumococcal pneumonia, suggesting no current or recent pneumococcal infection. Infection due to Strep pneumoniae cannot be ruled out since the antigen present in the sample may be below the detection limit of the test. [facility] Comment on above: This test has not be en evaluated on patients taking antibiotics for greater than 24 hours or on patients who have recently completed an antibiotic regimen. The accuracy of this test has not been proven in young children. XR CHEST 1 VIEWon 10-25-2024 XR CHEST 1 VIEW ORIGINAL EXAMINATION: ONE XRAY VIEW OF THE CHEST 10/25/2024 2:07 am COMPARISON: None. HISTORY: ORDERING SYSTEM PROVIDED HISTORY: Reason for Exam: hypoxia FINDINGS: Small bilateral effusions. Heart size is mildly enlarged however stable. Atherosclerotic calcification of the aorta is noted. No pneumothorax. Hazy airspace disease is present at the lung bases. IMPRESSION: Small bilateral effusions with hazy airspace disease at the lung bases. Interpreted by: Tien Can MD Preliminary Report By: Tien Can MD Electronically signed By Tien Can MD Dictated Date: 10/25/2024 2:13:50 AM Prelim Date: 10/25/2024 2:15:00 AM Sign Date: 10/25/2024 2:15:00 AM Ordering Provider: LUIS Spangler [facility] .Auto Diffon 10-24-2024 Basophil, Absolute 0.0 10 3/mcL Normal 0.0-0.3 [facility] Comment on above: Performed By: #### A DIFF, CBC, BMP, ANEU, MG, GFR #### [address] [address] Basophils/100 WBC (Bld) 0.5 % Normal 0.0-2.5 [facility] Comment on above: Performed By: #### A DIFF, CBC, BMP, ANEU, MG, GFR #### [address] [address] Eosinophil, Absolute 0.1 10 3/mcL Normal 0.0-0.7 [facility] Comment on above: Performed By: #### A DIFF, CBC, BMP, ANEU, MG, GFR #### [address] [address] Eosinophils/100 WBC (Bld) 1.4 % Normal 0.0-6.0 [facility] Comment on above: Performed By: #### A DIFF, CBC, BMP, ANEU, MG, GFR #### [address] [address] Lymphocyte, Absolute 0.7 10 3/mcL Low 0.9-4.3 [facility] Comment on above: Performed By: #### A DIFF, CBC, BMP, ANEU, MG, GFR #### [address] [address] Lymphocytes/100 WBC (Bld) 9.8 % Low 20.0-40.0 [facility] Comment on above: Performed By: #### A DIFF, CBC, BMP, ANEU, MG, GFR #### [address] [address] Monocyte, Absolute 0.6 10 3/mcL Normal 0.1-1.4 [facility] Comment on above: Performed By: #### A DIFF, CBC, BMP, ANEU, MG, GFR #### [address] [address] Monocytes/100 WBC (Bld) 7.6 % Normal 2.0-13.0 [facility] Comment on above: Performed By: #### A DIFF, CBC, BMP, ANEU, MG, GFR #### [address] [address] Neutrophils/100 WBC (Bld) 80.7 % High 50.0-75.0 [facility] Comment on above: Performed By: #### A DIFF, CBC, BMP, ANEU, MG, GFR #### [address] [address] .GFRon 10-24-2024 Estimated Glomerular Filtration Rate 99 ml/min/1.73sqm Normal [facility] Comment on above: Result Comment: Stages of Chronic Kidney Disease (CKD) Stage Description eGFR(ml/min/1.73 sq.m.) CKD 1 Normal kidney function or >=90 normal kindney function with possible kidney damage (ex. Proteinuria) CKD 2 Kidney damage with mild loss 60-89 of kidney function CKD 3a Mild to moderate loss of kidney 45-59 function CKD 3b Moderate to severe loss of 30-44 of kindey function CKD 4 Severe loss of kidney function 15-29 CKD 5 Kidney failure <15 Note: (go live 2024) the eGFR calculation was updated to the 2020 CKD-EPI creatinine equation without a race factor to calculate the eGFR results. Performed By: #### A DIFF, CBC, BMP, ANEU, MG, GFR #### [address] [address] .NEUABSon 10-24-2024 Neutrophil, Absolute 6.0 10 3/mcL Normal 2.3-8.1 [facility] Comment on above: Performed By: #### A DIFF, CBC, BMP, ANEU, MG, GFR #### [address] [address] BMPon 10-24-2024 BUN/Creatinine Ratio 29.4 ratio High 10.0-22.0 [facility] Comment on above: Performed By: #### A DIFF, CBC, BMP, ANEU, MG, GFR #### [address] [address] Calcium [Mass/Vol] 9.3 mg/dL Normal 8.7-10.4 [facility] Comment on above: Performed By: #### A DIFF, CBC, BMP, ANEU, MG, GFR #### [address] [address] Chloride [Moles/Vol] 93 mmol/L Low 98-110 [facility] Comment on above: Performed By: #### A DIFF, CBC, BMP, ANEU, MG, GFR #### [address] [address] CO2 [Moles/Vol] 25 mmol/L Normal 22-32 [facility] Comment on above: Performed By: #### A DIFF, CBC, BMP, ANEU, MG, GFR #### [address] [address] Creatinine [Mass/Vol] 0.51 mg/dL Low 0.60-1.40 [facility] Comment on above: Result Comment: Test ing performed on Inkerwang analyzer using enzymatic creatinine methodology. Performed By: #### A DIFF, CBC, BMP, ANEU, MG, GFR #### [address] [address] Electrolyte Balance 11.0 mEq/L Normal 4.0-15.0 [facility] MAIN Comment on above: Performed By: #### A DIFF, CBC, BMP, ANEU, MG, GFR #### [address] [address] Glucose [Mass/Vol] 185 mg/dL High 82-115 [facility] MAIN Comment on above: Performed By: #### A DIFF, CBC, BMP, ANEU, MG, GFR #### [address] [address] Potassium [Moles/Vol] 3.5 mmol/L Normal 3.5-5.0 [facility] MAIN Comment on above: Performed By: #### A DIFF, CBC, BMP, ANEU, MG, GFR #### [address] [address] Sodium [Moles/Vol] 129 mmol/L Low 136-145 [facility] MAIN Comment on above: Performed By: #### A DIFF, CBC, BMP, ANEU, MG, GFR #### [address] [address] Urea nitrogen [Mass/Vol] 15.0 mg/dL Normal 8.0-22.0 [facility] MAIN Comment on above: Performed By: #### A DIFF, CBC, BMP, ANEU, MG, GFR #### [place] [id number] CBCon 10-24-2024 Erythrocyte distribution width (RBC) [Ratio] 14.1 % Normal 11.5-15.5 [facility] MAIN Comment on above: Performed By: #### A DIFF, CBC, BMP, ANEU, MG, GFR #### [place] [address] Hematocrit (Bld) [Volume fraction] 36.1 % Low 40.0-52.0 [facility] MAIN Comment on above: Performed By: #### A DIFF, CBC, BMP, ANEU, MG, GFR #### [place] [address] Hgb 12.3 G/dL Low 13.0-17.5 [facility] MAIN Comment on above: Performed By: #### A DIFF, CBC, BMP, ANEU, MG, GFR #### [place] [address] MCH (RBC) [Entitic mass] 31.6 pg Normal 27.0-33.0 [facility] MAIN Comment on above: Performed By: #### A DIFF, CBC, BMP, ANEU, MG, GFR #### [place] [address] MCHC 34.2 G/dL Normal 32.0-36.0 [facility] MAIN Comment on above: Performed By: #### A DIFF, CBC, BMP, ANEU, MG, GFR #### [place] [address] MCV (RBC) [Entitic vol] 92.4 fL Normal 81.0-100.0 [facility] MAIN Comment on above: Performed By: #### A DIFF, CBC, BMP, ANEU, MG, GFR #### [place] [address] Platelet 234 10 3/mcL Normal 150-450 [facility] MAIN Comment on above: Performed By: #### A DIFF, CBC, BMP, ANEU, MG, GFR #### [facility] [address] [place] [address] Platelet mean volume (Bld) [Entitic vol] 7.4 fL Normal 6.4-10.5 [facility] MAIN Comment on above: Performed By: #### A DIFF, CBC, BMP, ANEU, MG, GFR #### [facility] [address] [place] [address] RBC 3.90 10 6/mcL Low 4.50-6.00 [facility] MAIN Comment on above: Performed By: #### A DIFF, CBC, BMP, ANEU, MG, GFR #### [facility] [address] [place] [address] WBC 7.4 10 3/mcL Normal 4.5-10.8 [facility] MAIN Comment on above: Performed By: #### A DIFF, CBC, BMP, ANEU, MG, GFR #### [place] [id number] [place] [address] LABORATORYOrdered By: SYSTEM SYSTEM on 10-24-2024 Natriuretic peptide.B prohormone N-Terminal IA [Mass/Vol] 922 pg/mL Normal 0 - 1800 pg/mL AH ADM SS LABORATORYOrdered By: Juju Sesay on 10-24-2024 Appearance (U) Clear (10/24/24 6:45 AM) Normal Clear AH Auto Urine SS Bilirubin Ql (U) Negative (10/24/24 6:45 AM) Normal Neg-Trace AH Auto Urine SS Color (U) Yellow (10/24/24 6:45 AM) Normal AH Auto Urine SS Glucose Test strip (U) [Mass/Vol] 250 mg/dL Invalid Interpretation Code Negative AH Auto Urine SS Hemoglobin Auto test strip (U) [Mass/Vol] Large *ABN* (10/24/24 6:45 AM) Invalid Interpretation Code Neg-Trace AH Auto Urine SS Ketones Ql (U) Negative Normal Neg-Trace AH Auto Ur ine SS RBC.non-dysmorphic LM Ql (Urine sed) 10-20 /HPF Invalid Interpretation Code AH Auto Urine SS UA Leuk Est Trace *NA* (10/24/24 6:45 AM) Invalid Interpretation Code Negative AH Auto Urine SS UA Nitrite Negative (10/24/24 6:45 AM) Normal Negative AH Auto Urine SS UA pH >=8.5 *ABN* (10/24/24 6:45 AM) Invalid Interpretation Code 5.0 - 8.0 AH Auto Urine SS UA Protein Trace mg/dL Normal Negative AH Auto Urine SS UA RBC 0-2 /HPF Normal 0-2 AH Auto Urine SS UA Spec Grav 1.010 (10/24/24 6:45 AM) Normal 1.006-1.029 AH Auto Urine SS UA Specimen Type Not Given 8 (10/24/24 6:45 AM) Normal AH Auto Urine SS Comment on above: Result Comment: Spec imen volumes less than 5 ml may not yield chemical or microscopic results truly reflective of renal function or general metabolic status. UA Squam Epithelial 0-2 /HPF Normal 0-20 Au to Urine SS UA Urobilinogen 1.0 E.U./dL Normal 0.2-1.0 AH Auto Urine SS WBC LM.HPF (Urine sed) [#/Area] 0-2 /HPF Normal 0-5 Auto Urine SS LABORATORYOrdered By: Adrian Jaramillo on 10-24-2024 Osmolality (U) [Osmolality] 458 mosm/kg Normal 390 - 1090 mOsm/kg Manual Chem SS LABORATORYOrdered By: Breonna zhou on 10-24-2024 Sodium (U) [Moles/Vol] 158 mmol/L Invalid Interpretation Code ADM SS MGon 10-24-2024 Magnesium [Mass/Vol] 1.4 mg/dL Low 1.6-2.4 [facility] MAIN Comment on above: Performed By: #### A DIFF, CBC, BMP, ANEU, MG, GFR #### [address] [address] Magnesium [Mass/Vol] 1.5 mg/dL Low 1.6-2.4 [facility] MAIN Comment on above: Order Comment: no bl ood sent Performed By: #### A DIFF, CBC, BMP, ANEU, MG, GFR #### [address] [address] NAURon 10-24-2024 Sodium [Moles/Vol] 158 mmol/L Normal [facility] MAIN Comment on above: Order Comment: unlab eled cup 10/24/2024 01:34:45 EDT Performed By: #### A DIFF, CBC, BMP, ANEU, MG, GFR #### [address] [address] OSMOUon 10-24-2024 U Osmolality 458 mOsm/kg Normal 390-1090 [facility] MAIN Comment on above: Order Comment: unlab eled cup 10/24/2024 01:34:18 EDT Performed By: #### A DIFF, CBC, BMP, ANEU, MG, GFR #### [address] [address] PBNPon 10-24-2024 Natriuretic peptide B (Bld) [Mass/Vol] 922 pg/mL Normal 0-1800 [facility] MAIN Comment on above: Performed By: #### A DIFF, CBC, BMP, ANEU, MG, GFR #### [address] [address] UAon 10-24-2024 Color (U) Yellow Normal [facility] MAIN Comment on above: Order Comment: unlab eled cup 10/24/2024 01:35:19 EDT Performed By: #### U A, UAMIC #### [place] [address] Glucose (U) [Mass/Vol] 250 mg/dL Abnormal Negative [facility] MAIN Comment on above: Order Comment: unlab eled cup 10/24/2024 01:35:19 EDT Performed By: #### U A, UAMIC #### [address] [address] Ketones Ql (U) Negative Normal Neg-Trace [facility] MAIN Comment on above: Order Comment: unlab eled cup 10/24/2024 01:35:19 EDT Performed By: #### U A, UAMIC #### [address] [address] UA Appear Clear Normal Clear [facility] MAIN Comment on above: Order Comment: unlab eled cup 10/24/2024 01:35:19 EDT Performed By: #### U A, UAMIC #### [address] [address] UA Blood Large Abnormal Neg-Trace [facility] MAIN Comment on above: Order Comment: unlab eled cup 10/24/2024 01:35:19 EDT Performed By: #### U A, UAMIC #### [place] [address] UA Leuk Est Trace Normal Negative [facility] MAIN Comment on above: Order Comment: unlab eled cup 10/24/2024 01:35:19 EDT Performed By: #### U A, UAMIC #### [place] [address] UA Nitrite Negative Normal Negative [facility] MAIN Comment on above: Order Comment: unlab eled cup 10/24/2024 01:35:19 EDT Performed By: #### U A, UAMIC #### [place] [address] UA pH >=8.5 Abnormal 5.0 - 8.0 [facility] MAIN Comment on above: Order Comment: unlab eled cup 10/24/2024 01:35:19 EDT Performed By: #### U A, UAMIC #### [place] [address] UA Protein Trace Normal Negative [facility] MAIN Comment on above: Order Comment: unlab eled cup 10/24/2024 01:35:19 EDT Performed By: #### U A, UAMIC #### [place] [address] UA Spec Grav 1.010 Normal 1.006-1.029 [facility] MAIN Comment on above: Order Comment: unlab eled cup 10/24/2024 01:35:19 EDT Performed By: #### U A, UAMIC #### [place] [address] UA Specimen Type Not Given Normal [facility] MAIN Comment on above: Order Comment: unlab eled cup 10/24/2024 01:35:19 EDT Result Comment: Spec imen volumes less than 5 ml may not yield chemical or microscopic results truly reflective of renal function or general metabolic status. Performed By: #### U A, UAMIC #### [place] [address] UA Urobilinogen 1.0 E.U./dL Normal 0.2-1.0 [facility] MAIN Comment on above: Order Comment: unlab eled cup 10/24/2024 01:35:19 EDT Performed By: #### U A, UAMIC #### [place] [address] Urobilinogen (U) [Mass/Vol] Negative Normal Neg-Trace [facility] MAIN Comment on above: Order Comment: unlab eled cup 10/24/2024 01:35:19 EDT Performed By: #### U A, UAMIC #### [place] [address] UAMICon 10-24-2024 UA Crenated RBCs 10-20 Abnormal [facility] MAIN Comment on above: Performed By: #### U A, UAMIC #### [place] [address] UA RBC 0-2 Normal 0-2 [facility] MAIN Comment on above: Performed By: #### U A, UAMIC #### [place] [address] UA Squam Epithelial 0-2 Normal 0-20 [facility] MAIN Comment on above: Performed By: #### U A, UAMIC #### [place] [address] UA WBC 0-2 Normal 0-5 [facility] MAIN Comment on above: Performed By: #### U A, UAMIC #### [place] [address] XR CHEST 1 VIEWon 10-24-2024 XR CHEST 1 VIEW ORIGINAL EXAMINATION: Exam Title:ONE XRAY VIEW OF THE CHEST Completed Time: 10/24/2024 3:02 pm Procedure Description:CHEST ONE VIEW AP/PA COMPARISON: October 21, 2024 chest x-ray HISTORY: ORDERING SYSTEM PROVIDED HISTORY: Reason for Exam: crackles bilaterally recent cardiac arrest FINDINGS: Mild cardiomegaly. [id number] pulmonary vascular congestion. Basilar atelectasis. No evidence for pneumothorax. Atherosclerotic disease. Degenerative change of the spine. IMPRESSION: [] Image findings compatible with congestive failure. Superimposing airspace process considered. Correlate with clinical findings. Interpreted by: Huber Corral DO Preliminary Report By: Huber Corral DO Electronically signed By Huber Corral DO Dictated Date: 10/24/2024 3:04:18 PM Prelim Date: 10/24/2024 3:04:51 PM Sign Date: 10/24/2024 3:04:51 PM Ordering Provider: NATASHA Spangler [facility] MAIN .Auto Diffon 10-23-2024 Basophil, Absolute 0.0 10 3/mcL Normal 0.0-0.3 [facility] MAIN Comment on above: Performed By: #### B G #### [address] [address] Basophils/100 WBC (Bld) 0.4 % Normal 0.0-2.5 [facility] MAIN Comment on above: Performed By: #### B G #### [address] [address] Eosinophil, Absolute 0.1 10 3/mcL Normal 0.0-0.7 [facility] MAIN Comment on above: Performed By: #### B G #### [address] [address] Eosinophils/100 WBC (Bld) 1.1 % Normal 0.0-6.0 [facility] MAIN Comment on above: Performed By: #### B G #### [address] [address] Lymphocyte, Absolute 0.9 10 3/mcL Normal 0.9-4.3 [facility] MAIN Comment on above: Performed By: #### B G #### [address] [address] Lymphocytes/100 WBC (Bld) 12.3 % Low 20.0-40.0 [facility] MAIN Comment on above: Performed By: #### B G #### [address] [address] Monocyte, Absolute 0.5 10 3/mcL Normal 0.1-1.4 [facility] MAIN Comment on above: Performed By: #### B G #### [address] [address] Monocytes/100 WBC (Bld) 7.5 % Normal 2.0-13.0 [facility] MAIN Comment on above: Performed By: #### B G #### [address] [address] Neutrophils/100 WBC (Bld) 78.7 % High 50.0-75.0 [facility] MAIN Comment on above: Performed By: #### B G #### [address] [address] .GFRon 10-23-2024 Estimated Glomerular Filtration Rate 96 ml/min/1.73sqm Normal [facility] MAIN Comment on above: Result Comment: Stages of Chronic Kidney Disease (CKD) Stage Description eGFR(ml/min/1.73 sq.m.) CKD 1 Normal kidney function or >=90 normal kindney function with possible kidney damage (ex. Proteinuria) CKD 2 Kidney damage with mild loss 60-89 of kidney function CKD 3a Mild to moderate loss of kidney 45-59 function CKD 3b Moderate to severe loss of 30-44 of kindey function CKD 4 Severe loss of kidney function 15-29 CKD 5 Kidney failure <15 Note: (go live 2024) the eGFR calculation was updated to the 2020 CKD-EPI creatinine equation without a race factor to calculate the eGFR results. Performed By: #### B G #### [address] [address] .NEUABSon 10-23-2024 Neutrophil, Absolute 5.7 10 3/mcL Normal 2.3-8.1 [facility] MAIN Comment on above: Performed By: #### B G #### [address] [address] BMPon 10-23-2024 BUN/Creatinine Ratio 28.1 ratio High 10.0-22.0 [facility] MAIN Comment on above: Performed By: #### B G #### [address] [address] Calcium [Mass/Vol] 9.2 mg/dL Normal 8.7-10.4 [facility] MAIN Comment on above: Performed By: #### B G #### [address] [address] Chloride [Moles/Vol] 97 mmol/L Low 98-110 [facility] MAIN Comment on above: Performed By: #### B G #### [address] [address] CO2 [Moles/Vol] 24 mmol/L Normal 22-32 [facility] MAIN Comment on above: Performed By: #### B G #### [address] [address] Creatinine [Mass/Vol] 0.57 mg/dL Low 0.60-1.40 [facility] MAIN Comment on above: Result Comment: Test ing performed on Inkerwang analyzer using enzymatic creatinine methodology. Performed By: #### B G #### [address] [address] Electrolyte Balance 11.0 mEq/L Normal 4.0-15.0 [facility] MAIN Comment on above: Performed By: #### B G #### [place] [id number] Glucose [Mass/Vol] 127 mg/dL High 82-115 [facility] MAIN Comment on above: Performed By: #### B G #### [place] [id number] Potassium [Moles/Vol] 3.6 mmol/L Normal 3.5-5.0 [facility] MAIN Comment on above: Performed By: #### B G #### [place] [id number] Sodium [Moles/Vol] 132 mmol/L Low 136-145 [facility] MAIN Comment on above: Performed By: #### B G #### [place] [id number] Urea nitrogen [Mass/Vol] 16.0 mg/dL Normal 8.0-22.0 [facility] MAIN Comment on above: Performed By: #### B G #### [address] [address] CBCon 10-23-2024 Erythrocyte distribution width (RBC) [Ratio] 14.3 % Normal 11.5-15.5 [facility] MAIN Comment on above: Performed By: #### B G #### [place] [id number] Hematocrit (Bld) [Volume fraction] 33.8 % Low 40.0-52.0 [facility] MAIN Comment on above: Performed By: #### B G #### [place] [address] Hgb 11.8 G/dL Low 13.0-17.5 [facility] MAIN Comment on above: Performed By: #### B G #### [place] [address] MCH (RBC) [Entitic mass] 32.5 pg Normal 27.0-33.0 [facility] MAIN Comment on above: Performed By: #### B G #### [place] [address] MCHC 34.9 G/dL Normal 32.0-36.0 [facility] MAIN Comment on above: Performed By: #### B G #### [place] [address] MCV (RBC) [Entitic vol] 93.2 fL Normal 81.0-100.0 [facility] MAIN Comment on above: Performed By: #### B G #### [place] [address] Platelet 183 10 3/mcL Normal 150-450 [facility] MAIN Comment on above: Performed By: #### B G #### [place] [address] Platelet mean volume (Bld) [Entitic vol] 7.6 fL Normal 6.4-10.5 [facility] MAIN Comment on above: Performed By: #### B G #### [place] [address] RBC 3.62 10 6/mcL Low 4.50-6.00 [facility] MAIN Comment on above: Performed By: #### B G #### [place] [id number] WBC 7.2 10 3/mcL Normal 4.5-10.8 [facility] MAIN Comment on above: Performed By: #### B G #### [place] [address] [address] HEAD OR BRAIN W/O CONTRAS Ton 10-23-2024 CT HEAD OR BRAIN W/O CONTRAST ORIGINAL EXAMINATION: CT OF THE HEAD WITHOUT CONTRAST 10/23/2024 8:29 pm TECHNIQUE: CT of the head was performed without the administration of intravenous contrast. Automated exposure control, iterative reconstruction, and/or weight based adjustment of the mA/kV was utilized to reduce the radiation dose to as low as reasonably achievable. COMPARISON: CT head 10/20/2024, MRI brain 10/22/2024 HISTORY: ORDERING SYSTEM PROVIDED HISTORY: Reason for Exam: AMS, CONFUSION, NO PREV NEURO HX, DOES BECOME AGITATED AT TIMES Delirium FINDINGS: BRAIN/VENTRICLES: There is no acute intracranial hemorrhage, mass effect or midline shift. No abnormal extra-axial fluid collection. The leon-white differentiation is maintained without evidence of an acute infarct. There is no evidence of hydrocephalus. The ventricles are enlarged with commensurate enlargement of the sulci consistent with parenchymal volume loss. Scattered white matter hypodensities are nonspecific but may represent moderate chronic microvascular angiopathy in a patient of this age. ORBITS: The visualized portion of the orbits demonstrate no acute abnormality. SINUSES: The visualized paranasal sinuses and mastoid air cells demonstrate no acute abnormality. SOFT TISSUES/SKULL: No acute abnormality of the visualized skull. IMPRESSION: No acute intracranial hemorrhage, mass effect or midline shift. I have personally reviewed the images of this examination and agree with the resident's findings and interpretation. Interpreted by: Néstor Snyder Preliminary Report By: Jeffrey Zuluaga Electronically signed By Néstor Snyder Dictated Date: 10/23/2024 8:31:59 PM Prelim Date: 10/23/2024 8:36:35 PM Sign Date: 10/23/2024 8:49:06 PM Ordering Provider: JUDIT HAHN Normal [facility] MAIN MGon 10-23-2024 Magnesium [Mass/Vol] 1.8 mg/dL Normal 1.6-2.4 [facility] MAIN Comment on above: Performed By: #### B G #### [place] [address] .Auto Diffon 10-22-2024 Basophil, Absolute 0.0 10 3/mcL Normal 0.0-0.3 [facility] MAIN Comment on above: Performed By: #### A DIFF, CBC, BMP, ANEU, MG, GFR #### [address] [address] Basophils/100 WBC (Bld) 0.3 % Normal 0.0-2.5 [facility] MAIN Comment on above: Performed By: #### A DIFF, CBC, BMP, ANEU, MG, GFR #### [address] [address] Eosinophil, Absolute 0.0 10 3/mcL Normal 0.0-0.7 [facility] MAIN Comment on above: Performed By: #### A DIFF, CBC, BMP, ANEU, MG, GFR #### [address] [address] Eosinophils/100 WBC (Bld) 0.3 % Normal 0.0-6.0 [facility] MAIN Comment on above: Performed By: #### A DIFF, CBC, BMP, ANEU, MG, GFR #### [address] [address] Lymphocyte, Absolute 0.7 10 3/mcL Low 0.9-4.3 [facility] MAIN Comment on above: Performed By: #### A DIFF, CBC, BMP, ANEU, MG, GFR #### [address] [address] Lymphocytes/100 WBC (Bld) 7.3 % Low 20.0-40.0 [facility] MAIN Comment on above: Performed By: #### A DIFF, CBC, BMP, ANEU, MG, GFR #### [address] [address] Monocyte, Absolute 0.6 10 3/mcL Normal 0.1-1.4 [facility] MAIN Comment on above: Performed By: #### A DIFF, CBC, BMP, ANEU, MG, GFR #### [address] [address] Monocytes/100 WBC (Bld) 5.8 % Normal 2.0-13.0 [facility] MAIN Comment on above: Performed By: #### A DIFF, CBC, BMP, ANEU, MG, GFR #### [address] [address] Neutrophils/100 WBC (Bld) 86.3 % High 50.0-75.0 [facility] MAIN Comment on above: Performed By: #### A DIFF, CBC, BMP, ANEU, MG, GFR #### [address] [address] .GFRon 10-22-2024 Estimated Glomerular Filtration Rate 96 ml/min/1.73sqm Normal [facility] MAIN Comment on above: Result Comment: Stages of Chronic Kidney Disease (CKD) Stage Description eGFR(ml/min/1.73 sq.m.) CKD 1 Normal kidney function or >=90 normal kindney function with possible kidney damage (ex. Proteinuria) CKD 2 Kidney damage with mild loss 60-89 of kidney function CKD 3a Mild to moderate loss of kidney 45-59 function CKD 3b Moderate to severe loss of 30-44 of kindey function CKD 4 Severe loss of kidney function 15-29 CKD 5 Kidney failure <15 Note: (go live 2024) the eGFR calculation was updated to the 2020 CKD-EPI creatinine equation without a race factor to calculate the eGFR results. Performed By: #### B G #### [place] [address] .NEUABSon 10-22-2024 Neutrophil, Absolute 8.5 10 3/mcL High 2.3-8.1 [facility] MAIN Comment on above: Performed By: #### A DIFF, CBC, BMP, ANEU, MG, GFR #### [address] [address] B12on 10-22-2024 Cobalamin (Vitamin B12) [Mass/Vol] 255 pg/mL Normal 211-911 [facility] MAIN Comment on above: Performed By: #### U A, UAMIC #### [address] [address] BMPon 10-22-2024 BUN/Creatinine Ratio 24.1 ratio High 10.0-22.0 [facility] MAIN Comment on above: Performed By: #### A DIFF, CBC, BMP, ANEU, MG, GFR #### [address] [address] Calcium [Mass/Vol] 8.9 mg/dL Normal 8.7-10.4 [facility] MAIN Comment on above: Performed By: #### A DIFF, CBC, BMP, ANEU, MG, GFR #### [address] [address] Chloride [Moles/Vol] 94 mmol/L Low 98-110 [facility] MAIN Comment on above: Performed By: #### A DIFF, CBC, BMP, ANEU, MG, GFR #### [address] [address] CO2 [Moles/Vol] 26 mmol/L Normal 22-32 [facility] MAIN Comment on above: Performed By: #### A DIFF, CBC, BMP, ANEU, MG, GFR #### [place] [id number] Creatinine [Mass/Vol] 0.58 mg/dL Low 0.60-1.40 [facility] MAIN Comment on above: Result Comment: Test ing performed on Inkerwang analyzer using enzymatic creatinine methodology. Performed By: #### A DIFF, CBC, BMP, ANEU, MG, GFR #### [place] [address] Electrolyte Balance 9.0 mEq/L Normal 4.0-15.0 [facility] MAIN Comment on above: Performed By: #### A DIFF, CBC, BMP, ANEU, MG, GFR #### [place] [address] Glucose [Mass/Vol] 135 mg/dL High 82-115 [facility] MAIN Comment on above: Performed By: #### A DIFF, CBC, BMP, ANEU, MG, GFR #### [address] [address] Potassium [Moles/Vol] 3.4 mmol/L Low 3.5-5.0 [facility] MAIN Comment on above: Performed By: #### A DIFF, CBC, BMP, ANEU, MG, GFR #### [address] [address] Sodium [Moles/Vol] 129 mmol/L Low 136-145 [facility] MAIN Comment on above: Performed By: #### A DIFF, CBC, BMP, ANEU, MG, GFR #### [address] [address] Urea nitrogen [Mass/Vol] 14.0 mg/dL Normal 8.0-22.0 [facility] MA[facility] Comment on above: Performed By: #### A DIFF, CBC, BMP, ANEU, MG, GFR #### [place] [address] CBCon 10-22-2024 Erythrocyte distribution width (RBC) [Ratio] 14.0 % Normal 11.5-15.5 [facility] MAIN Comment on above: Performed By: #### A DIFF, CBC, BMP, ANEU, MG, GFR #### [place] [address] Hematocrit (Bld) [Volume fraction] 35.0 % Low 40.0-52.0 [facility] MAIN Comment on above: Performed By: #### A DIFF, CBC, BMP, ANEU, MG, GFR #### [place] [address] Hgb 12.1 G/dL Low 13.0-17.5 [facility] MA[facility] Comment on above: Performed By: #### A DIFF, CBC, BMP, ANEU, MG, GFR #### [place] [address] MCH (RBC) [Entitic mass] 31.8 pg Normal 27.0-33.0 [facility] Comment on above: Performed By: #### A DIFF, CBC, BMP, ANEU, MG, GFR #### [place] [address] MCHC 34.5 G/dL Normal 32.0-36.0 [facility] Comment on above: Performed By: #### A DIFF, CBC, BMP, ANEU, MG, GFR #### [place] [address] MCV (RBC) [Entitic vol] 92.1 fL Normal 81.0-100.0 [facility] Comment on above: Performed By: #### A DIFF, CBC, BMP, ANEU, MG, GFR #### [place] [address] Platelet 202 10 3/mcL Normal 150-450 [facility] [facility] Comment on above: Performed By: #### A DIFF, CBC, BMP, ANEU, MG, GFR #### [place] [address] Platelet mean volume (Bld) [Entitic vol] 7.6 fL Normal 6.4-10.5 [facility] Comment on above: Performed By: #### A DIFF, CBC, BMP, ANEU, MG, GFR #### [place] [address] RBC 3.80 10 6/mcL Low 4.50-6.00 [facility] Comment on above: Performed By: #### A DIFF, CBC, BMP, ANEU, MG, GFR #### [place] [address] WBC 9.8 10 3/mcL Normal 4.5-10.8 [facility] Comment on above: Performed By: #### A DIFF, CBC, BMP, ANEU, MG, GFR #### [place] [address] LABORATORYOrdered By: SYSTEM SYSTEM on 10-22-2024 Cobalamin (Vitamin B12) [Mass/Vol] 255 pg/mL Normal 211 - 911 pg/mL AH ADM SS MGon 10-22-2024 Magnesium [Mass/Vol] 1.9 mg/dL Normal 1.6-2.4 [facility] Comment on above: Performed By: #### B G #### [place] [address] MRI BRAIN W/O CONTRASTon MRI BRAIN W/O CONTRAST ORIGINAL EXAMINATION: MRI OF THE BRAIN WITHOUT CONTRAST 10/22/2024 5:34 pm TECHNIQUE: Multiplanar multisequence MRI of the brain was performed without the administration of intravenous contrast. COMPARISON: None. HISTORY: ORDERING SYSTEM PROVIDED HISTORY: Reason for Exam: Mental status change, unknown cause FINDINGS: Images are degraded by patient motion artifact. INTRACRANIAL STRUCTURES/VENTRICLE S: There is no acute infarct. No mass effect or midline shift. No evidence of an acute intracranial hemorrhage. Primarily confluent periventricular white matter FLAIR hyperintensities, right greater than left. Mild generalized volume loss is appreciated with associated prominence of the sulci and ventricles. The sellar/suprasellar regions appear unremarkable. The normal signal voids within the major intracranial vessels appear maintained. ORBITS: The visualized portion of the orbits demonstrate no acute abnormality. SINUSES: Minimal paranasal mucosal thickening. Trace left mastoid effusion. BONES/SOFT TISSUES: The bone marrow signal intensity appears normal. The soft tissues demonstrate no acute abnormality. IMPRESSION: 1. No acute intracranial abnormality. 2. Primarily confluent periventricular white matter FLAIR hyperintensities, right greater than left. This is nonspecific and may represent chronic microvascular ischemic changes. Interpreted by: Rashmi Aguirre Preliminary Report By: Rashmi Aguirre Electronically signed By Rashmi Aguirre Dictated Date: 10/22/2024 5:37:07 PM Prelim Date: 10/22/2024 5:41:11 PM Sign Date: 10/22/2024 5:41:11 PM Ordering Provider: MO Spangler [facility] .Auto Diffon 10-21-2024 Basophil, Absolute 0.0 10 3/mcL Normal 0.0-0.3 [facility] Comment on above: Performed By: #### A DIFF, CBC, BMP, ANEU, MG, GFR #### [address] [address] Basophils/100 WBC (Bld) 0.1 % Normal 0.0-2.5 [facility] Comment on above: Performed By: #### A DIFF, CBC, BMP, ANEU, MG, GFR #### [address] [address] Eosinophil, Absolute 0.0 10 3/mcL Normal 0.0-0.7 [facility] Comment on above: Performed By: #### A DIFF, CBC, BMP, ANEU, MG, GFR #### [address] [address] Eosinophils/100 WBC (Bld) 0.1 % Normal 0.0-6.0 [facility] Comment on above: Performed By: #### A DIFF, CBC, BMP, ANEU, MG, GFR #### [address] [address] Lymphocyte, Absolute 0.6 10 3/mcL Low 0.9-4.3 [facility] Comment on above: Performed By: #### A DIFF, CBC, BMP, ANEU, MG, GFR #### [address] [address] Lymphocytes/100 WBC (Bld) 5.0 % Low 20.0-40.0 [facility] Comment on above: Performed By: #### A DIFF, CBC, BMP, ANEU, MG, GFR #### [address] [address] Monocyte, Absolute 0.8 10 3/mcL Normal 0.1-1.4 [facility] Comment on above: Performed By: #### A DIFF, CBC, BMP, ANEU, MG, GFR #### [address] [address] Monocytes/100 WBC (Bld) 6.0 % Normal 2.0-13.0 [facility] Comment on above: Performed By: #### A DIFF, CBC, BMP, ANEU, MG, GFR #### [address] [address] Neutrophils/100 WBC (Bld) 88.8 % High 50.0-75.0 [facility] Comment on above: Performed By: #### A DIFF, CBC, BMP, ANEU, MG, GFR #### [address] [address] Basophil, Absolute 0.0 10 3/mcL Normal 0.0-0.3 [facility] Comment on above: Performed By: #### A DIFF, CBC, BMP, ANEU, MG, GFR #### [address] [address] Basophils/100 WBC (Bld) 0.1 % Normal 0.0-2.5 [facility] Comment on above: Performed By: #### A DIFF, CBC, BMP, ANEU, MG, GFR #### [address] [address] Eosinophil, Absolute 0.0 10 3/mcL Normal 0.0-0.7 [facility] Comment on above: Performed By: #### A DIFF, CBC, BMP, ANEU, MG, GFR #### [address] [address] Eosinophils/100 WBC (Bld) 0.0 % Normal 0.0-6.0 [facility] Comment on above: Performed By: #### A DIFF, CBC, BMP, ANEU, MG, GFR #### [address] [address] Lymphocyte, Absolute 0.7 10 3/mcL Low 0.9-4.3 [facility] Comment on above: Performed By: #### A DIFF, CBC, BMP, ANEU, MG, GFR #### [address] [address] Lymphocytes/100 WBC (Bld) 5.7 % Low 20.0-40.0 [facility] Comment on above: Performed By: #### A DIFF, CBC, BMP, ANEU, MG, GFR #### [address] [address] Monocyte, Absolute 0.7 10 3/mcL Normal 0.1-1.4 [facility] Comment on above: Performed By: #### A DIFF, CBC, BMP, ANEU, MG, GFR #### [address] [address] Monocytes/100 WBC (Bld) 5.8 % Normal 2.0-13.0 [facility] Comment on above: Performed By: #### A DIFF, CBC, BMP, ANEU, MG, GFR #### [address] [address] Neutrophils/100 WBC (Bld) 88.4 % High 50.0-75.0 [facility] Comment on above: Performed By: #### A DIFF, CBC, BMP, ANEU, MG, GFR #### [address] [address] .GFRon 10-21-2024 Estimated Glomerular Filtration Rate 87 ml/min/1.73sqm Normal [facility] Comment on above: Result Comment: Stages of Chronic Kidney Disease (CKD) Stage Description eGFR(ml/min/1.73 sq.m.) CKD 1 Normal kidney function or >=90 normal kindney function with possible kidney damage (ex. Proteinuria) CKD 2 Kidney damage with mild loss 60-89 of kidney function CKD 3a Mild to moderate loss of kidney 45-59 function CKD 3b Moderate to severe loss of 30-44 of kindey function CKD 4 Severe loss of kidney function 15-29 CKD 5 Kidney failure <15 Note: ( live 06/09/2024) the eGFR calculation was updated to the 2020 CKD-EPI creatinine equation without a race factor to calculate the eGFR results. Performed By: #### A DIFF, CBC, BMP, ANEU, MG, GFR #### [place] [address] Estimated Glomerular Filtration Rate 93 ml/min/1.73sqm [facility] MAIN Comment on above: Result Comment: Stages of Chronic Kidney Disease (CKD) Stage Description eGFR(ml/min/1.73 sq.m.) CKD 1 Normal kidney function or >=90 normal kindney function with possible kidney damage (ex. Proteinuria) CKD 2 Kidney damage with mild loss 60-89 of kidney function CKD 3a Mild to moderate loss of kidney 45-59 function CKD 3b Moderate to severe loss of 30-44 of kindey function CKD 4 Severe loss of kidney function 15-29 CKD 5 Kidney failure <15 Note: ( live 06/09/2024) the eGFR calculation was updated to the 2020 CKD-EPI creatinine equation without a race factor to calculate the eGFR results. Performed By: #### A DIFF, CBC, BMP, ANEU, MG, GFR #### [place] [address] .NEUABSon 10-21-2024 Neutrophil, Absolute 11.3 10 3/mcL High 2.3-8.1 [facility] Comment on above: Performed By: #### A DIFF, CBC, BMP, ANEU, MG, GFR #### [place] [address] Neutrophil, Absolute 10.5 10 3/mcL High 2.3-8.1 [facility] Comment on above: Performed By: #### A DIFF, CBC, BMP, ANEU, MG, GFR #### [place] [address] BGon 10-21-2024 Base excess Calc (Bld) [Moles/Vol] -5.8000 mmol/L [facility] MAIN Comment on above: Performed By: #### A DIFF, CBC, BMP, ANEU, MG, GFR #### [address] [address] CO2 [Moles/Vol] 19.2 mmol/L Low 22.0-30.0 [facility] Comment on above: Performed By: #### A DIFF, CBC, BMP, ANEU, MG, GFR #### [address] [address] HCO3 (Bld) [Moles/Vol] 18.2 mmol/L Low 21.0-29.0 [facility] Comment on above: Performed By: #### A DIFF, CBC, BMP, ANEU, MG, GFR #### [place] [id number] Oxygen (Bld) [Partial pressure] 139.2 mm[Hg] High 74.0-108.0 [facility] Comment on above: Performed By: #### A DIFF, CBC, BMP, ANEU, MG, GFR #### [place] [address] Oxygen saturation in Blood 99.1 % High 92.0-96.0 [facility] Comment on above: Performed By: #### A DIFF, CBC, BMP, ANEU, MG, GFR #### [place] [address] pCO2 31.9 mmHg Low 32.0-46.0 [facility] Comment on above: Performed By: #### A DIFF, CBC, BMP, ANEU, MG, GFR #### [place] [id number] pH (Bld) 7.375 [pH] Low 7.380-7.460 [facility] Comment on above: Performed By: #### A DIFF, CBC, BMP, ANEU, MG, GFR #### [place] [id number] [facility] BUN/Creatinine Ratio 20.3 ratio Normal 10.0-22.0 [facility] Comment on above: Performed By: #### A DIFF, CBC, BMP, ANEU, MG, GFR #### [place] [id number] Calcium [Mass/Vol] 9.5 mg/dL Normal 8.7-10.4 [facility] Comment on above: Performed By: #### A DIFF, CBC, BMP, ANEU, MG, GFR #### [address] [address] Chloride [Moles/Vol] 92 mmol/L Low 98-110 [facility] Comment on above: Performed By: #### A DIFF, CBC, BMP, ANEU, MG, GFR #### [address] [address] CO2 [Moles/Vol] 20 mmol/L Low 22-32 [facility] Comment on above: Performed By: #### A DIFF, CBC, BMP, ANEU, MG, GFR #### [address] [address] Creatinine [Mass/Vol] 0.64 mg/dL Normal 0.60-1.40 [facility] Comment on above: Result Comment: Test ing performed on [employer] analyzer using enzymatic creatinine methodology. Performed By: #### A DIFF, CBC, BMP, ANEU, MG, GFR #### [address] [address] Electrolyte Balance 15.0 mEq/L Normal 4.0-15.0 [facility] Comment on above: Performed By: #### A DIFF, CBC, BMP, ANEU, MG, GFR #### [address] [address] Glucose [Mass/Vol] 145 mg/dL High 82-115 [facility] Comment on above: Performed By: #### A DIFF, CBC, BMP, ANEU, MG, GFR #### [address] [address] Potassium [Moles/Vol] 3.6 mmol/L Normal 3.5-5.0 [facility] Comment on above: Performed By: #### A DIFF, CBC, BMP, ANEU, MG, GFR #### [address] [address] Sodium [Moles/Vol] 127 mmol/L Low 136-145 [facility] Comment on above: Performed By: #### A DIFF, CBC, BMP, ANEU, MG, GFR #### [place] [id number] Urea nitrogen [Mass/Vol] 13.0 mg/dL Normal 8.0-22.0 [facility] Comment on above: Performed By: #### A DIFF, CBC, BMP, ANEU, MG, GFR #### [place] [id number] CBCon 10-21-2024 Erythrocyte distribution width (RBC) [Ratio] 14.1 % Normal 11.5-15.5 [facility] Comment on above: Performed By: #### A DIFF, CBC, BMP, ANEU, MG, GFR #### [place] [address] Hematocrit (Bld) [Volume fraction] 39.5 % Low 40.0-52.0 [facility] Comment on above: Performed By: #### A DIFF, CBC, BMP, ANEU, MG, GFR #### [place] [address] Hgb 13.5 G/dL Normal 13.0-17.5 [facility] Comment on above: Performed By: #### A DIFF, CBC, BMP, ANEU, MG, GFR #### [place] [address] MCH (RBC) [Entitic mass] 31.7 pg Normal 27.0-33.0 [facility] Comment on above: Performed By: #### A DIFF, CBC, BMP, ANEU, MG, GFR #### [place] [id number] MCHC 34.2 G/dL Normal 32.0-36.0 [facility] Comment on above: Performed By: #### A DIFF, CBC, BMP, ANEU, MG, GFR #### [place] [address] MCV (RBC) [Entitic vol] 92.6 fL Normal 81.0-100.0 [facility] Comment on above: Performed By: #### A DIFF, CBC, BMP, ANEU, MG, GFR #### [place] [address] Platelet 262 10 3/mcL Normal 150-450 [facility] Comment on above: Performed By: #### A DIFF, CBC, BMP, ANEU, MG, GFR #### [place] [address] Platelet mean volume (Bld) [Entitic vol] 7.6 fL Normal 6.4-10.5 [facility] Comment on above: Performed By: #### A DIFF, CBC, BMP, ANEU, MG, GFR #### [place] [address] RBC 4.27 10 6/mcL Low 4.50-6.00 [facility] Comment on above: Performed By: #### A DIFF, CBC, BMP, ANEU, MG, GFR #### [place] [address] WBC 12.8 10 3/mcL High 4.5-10.8 [facility] Comment on above: Performed By: #### A DIFF, CBC, BMP, ANEU, MG, GFR #### [place] [address] Erythrocyte distribution width (RBC) [Ratio] 13.9 % Normal 11.5-15.5 [facility] Comment on above: Performed By: #### A DIFF, CBC, BMP, ANEU, MG, GFR #### [place] [id number] Hematocrit (Bld) [Volume fraction] 39.8 % Low 40.0-52.0 [facility] Comment on above: Performed By: #### A DIFF, CBC, BMP, ANEU, MG, GFR #### [place] [address] Hgb 13.6 G/dL Normal 13.0-17.5 [facility] Comment on above: Performed By: #### A DIFF, CBC, BMP, ANEU, MG, GFR #### [place] [id number] MCH (RBC) [Entitic mass] 31.9 pg Normal 27.0-33.0 [facility] Comment on above: Performed By: #### A DIFF, CBC, BMP, ANEU, MG, GFR #### [address] [address] MCHC 34.3 G/dL Normal 32.0-36.0 [facility] Comment on above: Performed By: #### A DIFF, CBC, BMP, ANEU, MG, GFR #### [address] [address] MCV (RBC) [Entitic vol] 93.0 fL Normal 81.0-100.0 [facility] Comment on above: Performed By: #### A DIFF, CBC, BMP, ANEU, MG, GFR #### [place] [address] Platelet 252 10 3/mcL Normal 150-450 [facility] Comment on above: Performed By: #### A DIFF, CBC, BMP, ANEU, MG, GFR #### [place] [address] Platelet mean volume (Bld) [Entitic vol] 7.9 fL Normal 6.4-10.5 [facility] Comment on above: Performed By: #### A DIFF, CBC, BMP, ANEU, MG, GFR #### [place] [id number] RBC 4.28 10 6/mcL Low 4.50-6.00 [facility] Comment on above: Performed By: #### A DIFF, CBC, BMP, ANEU, MG, GFR #### [place] [id number] WBC 11.9 10 3/mcL High 4.5-10.8 [facility] Comment on above: Performed By: #### A DIFF, CBC, BMP, ANEU, MG, GFR #### [place] [id number] CMPon 10-21-2024 Albumin Level 4.0 G/dL Normal 3.2-4.8 [facility] Comment on above: Performed By: #### A DIFF, CBC, BMP, ANEU, MG, GFR #### [place] [address] Albumin/Globulin [Mass ratio] 1.5 {ratio} Normal 0.9-1.6 [facility] Comment on above: Performed By: #### A DIFF, CBC, BMP, ANEU, MG, GFR #### [address] [address] ALP [Catalytic activity/Vol] 73 U/L Normal 38-126 [facility] Comment on above: Performed By: #### A DIFF, CBC, BMP, ANEU, MG, GFR #### [address] [address] ALT [Catalytic activity/Vol] 22 U/L Normal 12-55 [facility] Comment on above: Performed By: #### A DIFF, CBC, BMP, ANEU, MG, GFR #### [address] [address] AST [Catalytic activity/Vol] 32 U/L Normal 8-34 [facility] Comment on above: Performed By: #### A DIFF, CBC, BMP, ANEU, MG, GFR #### [place] [id number] Bili Total 0.70 mg/dL Normal 0.20-1.20 [facility] Comment on above: Result Comment: Use of this assay is not recommended for patients undergoing treatment with eltrombopag due to the potential for falsely elevated results. Performed By: #### A DIFF, CBC, BMP, ANEU, MG, GFR #### [address] [address] BUN/Creatinine Ratio 22.8 ratio High 10.0-22.0 [facility] Comment on above: Performed By: #### A DIFF, CBC, BMP, ANEU, MG, GFR #### [address] [address] Calcium [Mass/Vol] 9.3 mg/dL Normal 8.7-10.4 [facility] Comment on above: Performed By: #### A DIFF, CBC, BMP, ANEU, MG, GFR #### [address] [address] Chloride [Moles/Vol] 92 mmol/L Low 98-110 [facility] Comment on above: Performed By: #### A DIFF, CBC, BMP, ANEU, MG, GFR #### [address] [address] CO2 [Moles/Vol] 21 mmol/L Low 22-32 [facility] Comment on above: Performed By: #### A DIFF, CBC, BMP, ANEU, MG, GFR #### [address] [address] Creatinine [Mass/Vol] 0.79 mg/dL Normal 0.60-1.40 [facility] Comment on above: Result Comment: Test ing performed on [employer] analyzer using enzymatic creatinine methodology. Performed By: #### A DIFF, CBC, BMP, ANEU, MG, GFR #### [address] [address] Electrolyte Balance 13.0 mEq/L Normal 4.0-15.0 [facility] Comment on above: Performed By: #### A DIFF, CBC, BMP, ANEU, MG, GFR #### [address] [address] Globulin 2.7 G/dL Normal 2.5-4.2 [facility] Comment on above: Performed By: #### A DIFF, CBC, BMP, ANEU, MG, GFR #### [address] [address] Glucose [Mass/Vol] 182 mg/dL High 82-115 [facility] Comment on above: Performed By: #### A DIFF, CBC, BMP, ANEU, MG, GFR #### [address] [address] Potassium [Moles/Vol] 3.9 mmol/L Normal 3.5-5.0 [facility] Comment on above: Performed By: #### A DIFF, CBC, BMP, ANEU, MG, GFR #### [address] [address] Sodium [Moles/Vol] 126 mmol/L Low 136-145 [facility] Comment on above: Performed By: #### A DIFF, CBC, BMP, ANEU, MG, GFR #### [address] [address] Total Protein 6.7 G/dL Normal 5.7-8.2 [facility] Comment on above: Performed By: #### A DIFF, CBC, BMP, ANEU, MG, GFR #### [address] [address] Urea nitrogen [Mass/Vol] 18.0 mg/dL Normal 8.0-22.0 [facility] Comment on above: Performed By: #### A DIFF, CBC, BMP, ANEU, MG, GFR #### [address] [address] LABORATORYOrdered By: SYSTEM SYSTEM on 10-21-2024 Troponin I.cardiac DL <= 0.01 ng/mL [Mass/Vol] 18 ng/L Normal 0 - 54 ng/L ADM SS Comment on above: Interpretive Data: High Sensitive Troponin I Reference Ranges: Female: 0-34 ng/L Male: 0-54 ng/L Testing performed on [employer] IM analyzer using direct chemiluminescent technology. LABORATORYOrdered By: Fran Reese on 10-21-2024 CO2 [Moles/Vol] 19.2 mmol/L Low 22.0 - 30.0 mmol/L Main Rapid Comm SS HCO3 (Bld) [Moles/Vol] 18.2 mmol/L Low 21.0 - 29.0 mmol/L Main Rapid Comm SS Oxygen (Bld) [Partial pressure] 139.2 mm[Hg] High 74.0 - 108.0 mm Hg AH Main Rapid Comm SS pCO2 31.9 mm[Hg] Low 32.0 - 46.0 mm Hg Main Rapid Comm SS pH (Bld) 7.375 [pH] Low 7.380 - 7.460 Main Rapid Comm SS Sodium [Moles/Vol] -5.8000 mmol/L Invalid Interpretation Code Main Rapid Comm SS TROPHSon 10-21-2024 High Sensitivity Troponin I 18 ng/L Normal 0-54 [facility] Comment on above: Order Comment: Pls a dd on to the samples drawn this afternoon if possible. Result Comment: High Sensitive Troponin I Reference Ranges: Female: 0-34 ng/L Male: 0-54 ng/L Testing performed on [employer] IM analyzer using direct chemiluminescent technology. Performed By: #### A DIFF, CBC, BMP, ANEU, MG, GFR #### [address] [address] XR ENTERIC TUBE PLACEMENTon 10-21-2024 XR ENTERIC TUBE PLACEMENT ORIGINAL EXAMINATION: ONE SUPINE XRAY VIEW(S) OF THE ABDOMEN 10/21/2024 3:12 pm COMPARISON: None. HISTORY: ORDERING SYSTEM PROVIDED HISTORY: Reason for Exam: Chest Pain, NG PLACEMENT FINDINGS: Orogastric tube traverses the esophagus. Proximal distal port project in the stomach body which is appropriate. Heart is top-normal in size with left ventricular configuration. There is no acute alveolar, interstitial or pleural process. Skeletal elements remain intact. IMPRESSION: 1. Orogastric tube in functional position. 2. No acute pulmonary disease. Interpreted by: Sang Knutson DO Preliminary Report By: Sang Knutson DO Electronically signed By Sang Knutson DO Dictated Date: 10/21/2024 3:45:08 PM Prelim Date: 10/21/2024 3:45:47 PM Sign Date: 10/21/2024 3:45:47 PM Ordering Provider: LUIS Spangler [facility] .Auto Diffon 10-20-2024 Basophil, Absolute 0.0 10 3/mcL Normal 0.0-0.3 [facility] Comment on above: Performed By: #### A DIFF, CBC, BMP, ANEU, MG, GFR #### [address] [address] Basophils/100 WBC (Bld) 0.1 % Normal 0.0-2.5 [facility] Comment on above: Performed By: #### A DIFF, CBC, BMP, ANEU, MG, GFR #### [address] [address] Eosinophils/100 WBC (Bld) 0.1 % Normal 0.0-6.0 [facility] Comment on above: Performed By: #### A DIFF, CBC, BMP, ANEU, MG, GFR #### [address] [address] Lymphocyte, Absolute 0.6 10 3/mcL Low 0.9-4.3 [facility] Comment on above: Performed By: #### A DIFF, CBC, BMP, ANEU, MG, GFR #### [address] [address] Lymphocytes/100 WBC (Bld) 5.6 % Low 20.0-40.0 [facility] Comment on above: Performed By: #### A DIFF, CBC, BMP, ANEU, MG, GFR #### [address] [address] Monocyte, Absolute 0.5 10 3/mcL Normal 0.1-1.4 [facility] Comment on above: Performed By: #### A DIFF, CBC, BMP, ANEU, MG, GFR #### [address] [address] Monocytes/100 WBC (Bld) 5.2 % Normal 2.0-13.0 [facility] Comment on above: Performed By: #### A DIFF, CBC, BMP, ANEU, MG, GFR #### [address] [address] Neutrophils/100 WBC (Bld) 89.0 % High 50.0-75.0 [facility] Comment on above: Performed By: #### A DIFF, CBC, BMP, ANEU, MG, GFR #### [address] [address] Basophil, Absolute 0.0 10 3/mcL Normal 0.0-0.3 [facility] Comment on above: Performed By: #### F ERR, CBC, FE, ANEU, ADIFF #### [address] [address] Lymphocyte, Absolute 0.8 10 3/mcL Low 0.9-4.3 [facility] Comment on above: Performed By: #### F ERR, CBC, FE, ANEU, ADIFF #### [address] [address] Monocyte, Absolute 0.5 10 3/mcL Normal 0.1-1.4 [facility] Comment on above: Performed By: #### F ERR, CBC, FE, ANEU, ADIFF #### [address] [address] .Auto DiffOrdered By: SYSTEM SYSTEM on 10-20-2024 Basophils/100 WBC (Bld) 0.4 % Normal 0.0-2.5 A O Workflow SS Comment on above: Performed By: #### F ERR, CBC, FE, ANEU, ADIFF #### [address] [address] Eosinophil, Absolute 0.0 103/mcL Normal 0.0-0.7 AO [facility] SS Comment on above: Performed By: #### F ERR, CBC, FE, ANEU, ADIFF #### [address] [address] Performed By: #### A DIFF, CBC, BMP, ANEU, MG, GFR #### [address] [address] Eosinophils/100 WBC (Bld) 0.4 % Normal 0.0-6.0 AO [facility] SS Comment on above: Performed By: #### F ERR, CBC, FE, ANEU, ADIFF #### [address] [address] Lymphocytes/100 WBC (Bld) 13.4 % Low 20.0-40.0 AO [facility] SS Comment on above: Performed By: #### F ERR, CBC, FE, ANEU, ADIFF #### [address] [address] Monocytes/100 WBC (Bld) 9.1 % Normal 2.0-13.0 A O Workflow SS Comment on above: Performed By: #### F ERR, CBC, FE, ANEU, ADIFF #### [address] [address] Neutrophils/100 WBC (Bld) 76.7 % High 50.0-75.0 AO [facility] SS Comment on above: Performed By: #### F ERR, CBC, FE, ANEU, ADIFF #### [address] [address] .GFRon 10-20-2024 Estimated Glomerular Filtration Rate 99 ml/min/1.73sqm Normal [facility] Comment on above: Result Comment: Stages of Chronic Kidney Disease (CKD) Stage Description eGFR(ml/min/1.73 sq.m.) CKD 1 Normal kidney function or >=90 normal kindney function with possible kidney damage (ex. Proteinuria) CKD 2 Kidney damage with mild loss 60-89 of kidney function CKD 3a Mild to moderate loss of kidney 45-59 function CKD 3b Moderate to severe loss of 30-44 of kindey function CKD 4 Severe loss of kidney function 15-29 CKD 5 Kidney failure <15 Note: ( live 06/09/2024) the eGFR calculation was updated to the 2020 CKD-EPI creatinine equation without a race factor to calculate the eGFR results. Performed By: #### A DIFF, CBC, BMP, ANEU, MG, GFR #### [facility] [address] [place] [id number] Estimated Glomerular Filtration Rate 97 ml/min/1.73sqm Normal [facility] Comment on above: Result Comment: Stages of Chronic Kidney Disease (CKD) Stage Description eGFR(ml/min/1.73 sq.m.) CKD 1 Normal kidney function or >=90 normal kindney function with possible kidney damage (ex. Proteinuria) CKD 2 Kidney damage with mild loss 60-89 of kidney function CKD 3a Mild to moderate loss of kidney 45-59 function CKD 3b Moderate to severe loss of 30-44 of kindey function CKD 4 Severe loss of kidney function 15-29 CKD 5 Kidney failure <15 Note: ( live 06/09/2024) the eGFR calculation was updated to the 2020 CKD-EPI creatinine equation without a race factor to calculate the eGFR results. Performed By: #### F ERR, CBC, FE, ANEU, ADIFF #### [address] [address] .GFROrdered By: SYSTEM MARCUS Noyola on 10-20-2024 Estimated Glomerular Filtration Rate 96 ml/min/1.73sqm Normal AO Chemistry S Comment on above: Interpretive Data: Stages of Chronic Kidney Disease (CKD) Stage Description eGFR(ml/min/1.73 sq.m.) CKD 1 Normal kidney function or >=90 normal kindney function with possible kidney damage (ex. Proteinuria) CKD 2 Kidney damage with mild loss 60-89 of kidney function CKD 3a Mild to moderate loss of kidney 45-59 function CKD 3b Moderate to severe loss of 30-44 of kindey function CKD 4 Severe loss of kidney function 15-29 CKD 5 Kidney failure <15 Note: ( live 06/09/2024) the eGFR calculation was updated to the 2020 CKD-EPI creatinine equation without a race factor to calculate the eGFR results. Result Comment: Stages of Chronic Kidney Disease (CKD) Stage Description eGFR(ml/min/1.73 sq.m.) CKD 1 Normal kidney function or >=90 normal kindney function with possible kidney damage (ex. Proteinuria) CKD 2 Kidney damage with mild loss 60-89 of kidney function CKD 3a Mild to moderate loss of kidney 45-59 function CKD 3b Moderate to severe loss of 30-44 of kindey function CKD 4 Severe loss of kidney function 15-29 CKD 5 Kidney failure <15 Note: (go live 2024) the eGFR calculation was updated to the 2020 CKD-EPI creatinine equation without a race factor to calculate the eGFR results. Performed By: #### F ERR, CBC, FE, ANEU, ADIFF #### [address] [address] .MDWon 10-20-2024 Monocyte Distribution Width 17.30 Normal 0.00-20.00 [facility] Comment on above: Result Comment: For ED adult patients suspected of sepsis, MDW<=20.0 does not rule out sepsis or risk of sepsis Performed By: #### F ERR, CBC, FE, ANEU, ADIFF #### [address] [address] .NEUABSon 10-20-2024 Neutrophil, Absolute 9.0 10 3/mcL High 2.3-8.1 [facility] Comment on above: Performed By: #### A DIFF, CBC, BMP, ANEU, MG, GFR #### [address] [address] Neutrophil, Absolute 4.5 10 3/mcL Normal 2.3-8.1 [facility] Comment on above: Performed By: #### F ERR, CBC, FE, ANEU, ADIFF #### [address] [address] [facility] BUN/Creatinine Ratio 19.2 ratio Normal 10.0-22.0 [facility] Comment on above: Performed By: #### A DIFF, CBC, BMP, ANEU, MG, GFR #### [address] [address] Calcium [Mass/Vol] 9.3 mg/dL Normal 8.7-10.4 [facility] Comment on above: Performed By: #### A DIFF, CBC, BMP, ANEU, MG, GFR #### [address] [address] Chloride [Moles/Vol] 92 mmol/L Low 98-110 [facility] Comment on above: Performed By: #### A DIFF, CBC, BMP, ANEU, MG, GFR #### [address] [address] CO2 [Moles/Vol] 22 mmol/L Normal 22-32 [facility] Comment on above: Performed By: #### A DIFF, CBC, BMP, ANEU, MG, GFR #### [address] [address] Creatinine [Mass/Vol] 0.52 mg/dL Low 0.60-1.40 [facility] Comment on above: Result Comment: Test ing performed on [employer] analyzer using enzymatic creatinine methodology. Performed By: #### A DIFF, CBC, BMP, ANEU, MG, GFR #### [address] [address] Electrolyte Balance 13.0 mEq/L Normal 4.0-15.0 [facility] Comment on above: Performed By: #### A DIFF, CBC, BMP, ANEU, MG, GFR #### [address] [address] Glucose [Mass/Vol] 151 mg/dL High 82-115 [facility] Comment on above: Performed By: #### A DIFF, CBC, BMP, ANEU, MG, GFR #### [address] [address] Potassium [Moles/Vol] 3.6 mmol/L Normal 3.5-5.0 [facility] Comment on above: Performed By: #### A DIFF, CBC, BMP, ANEU, MG, GFR #### [address] [address] Sodium [Moles/Vol] 127 mmol/L Low 136-145 [facility] Comment on above: Performed By: #### A DIFF, CBC, BMP, ANEU, MG, GFR #### [address] [address] Urea nitrogen [Mass/Vol] 10.0 mg/dL Normal 8.0-22.0 [facility] Comment on above: Performed By: #### A DIFF, CBC, BMP, ANEU, MG, GFR #### [place] [id number] BUN/Creatinine Ratio 20 ratio Normal 7-27 [facility] Comment on above: Performed By: #### F ERR, CBC, FE, ANEU, ADIFF #### [place] [address] Calcium [Mass/Vol] 8.8 mg/dL Normal 8.4-10.2 [facility] Comment on above: Performed By: #### F ERR, CBC, FE, ANEU, ADIFF #### [place] [address] Chloride [Moles/Vol] 90 mmol/L Low 98-107 [facility] Comment on above: Performed By: #### F ERR, CBC, FE, ANEU, ADIFF #### [place] [address] CO2 [Moles/Vol] 28 mmol/L Normal 23-31 [facility] Comment on above: Performed By: #### F ERR, CBC, FE, ANEU, ADIFF #### [place] [address] Creatinine [Mass/Vol] 0.56 mg/dL Low 0.67-1.17 [facility] Comment on above: Performed By: #### F ERR, CBC, FE, ANEU, ADIFF #### [place] [address] Electrolyte Balance 5.0 mEq/L Normal 4.0-15.0 [facility] Comment on above: Performed By: #### F ERR, CBC, FE, ANEU, ADIFF #### [place] [address] Glucose [Mass/Vol] 140 mg/dL High 83-110 [facility] Comment on above: Performed By: #### F ERR, CBC, FE, ANEU, ADIFF #### [address] [address] Potassium [Moles/Vol] 3.8 mmol/L Normal 3.5-5.1 [facility] Comment on above: Performed By: #### F ERR, CBC, FE, ANEU, ADIFF #### [address] [address] Sodium [Moles/Vol] 123 mmol/L Low 136-145 [facility] Comment on above: Performed By: #### F ERR, CBC, FE, ANEU, ADIFF #### [address] [address] Urea nitrogen [Mass/Vol] 11 mg/dL Normal 7-18 [facility] Comment on above: Performed By: #### F ERR, CBC, FE, ANEU, ADIFF #### [address] [address] CBCon 10-20-2024 Erythrocyte distribution width (RBC) [Ratio] 13.9 % Normal 11.5-15.5 [facility] Comment on above: Performed By: #### A DIFF, CBC, BMP, ANEU, MG, GFR #### [address] [address] Hematocrit (Bld) [Volume fraction] 38.7 % Low 40.0-52.0 [facility] Comment on above: Performed By: #### A DIFF, CBC, BMP, ANEU, MG, GFR #### [address] [address] Hgb 13.1 G/dL Normal 13.0-17.5 [facility] Comment on above: Performed By: #### A DIFF, CBC, BMP, ANEU, MG, GFR #### [address] [address] MCH (RBC) [Entitic mass] 31.5 pg Normal 27.0-33.0 [facility] Comment on above: Performed By: #### A DIFF, CBC, BMP, ANEU, MG, GFR #### [place] [address] MCHC 33.8 G/dL Normal 32.0-36.0 [facility] Comment on above: Performed By: #### A DIFF, CBC, BMP, ANEU, MG, GFR #### [place] [address] MCV (RBC) [Entitic vol] 93.0 fL Normal 81.0-100.0 [facility] Comment on above: Performed By: #### A DIFF, CBC, BMP, ANEU, MG, GFR #### [place] [address] Platelet 235 10 3/mcL Normal 150-450 [facility] Comment on above: Performed By: #### A DIFF, CBC, BMP, ANEU, MG, GFR #### [place] [address] Platelet mean volume (Bld) [Entitic vol] 7.5 fL Normal 6.4-10.5 [facility] Comment on above: Performed By: #### A DIFF, CBC, BMP, ANEU, MG, GFR #### [place] [id number] RBC 4.16 10 6/mcL Low 4.50-6.00 [facility] Comment on above: Performed By: #### A DIFF, CBC, BMP, ANEU, MG, GFR #### [place] [id number] WBC 10.1 10 3/mcL Normal 4.5-10.8 [facility] Comment on above: Performed By: #### A DIFF, CBC, BMP, ANEU, MG, GFR #### [place] [address] Hgb 12.7 G/dL Low 13.0-17.5 [facility] Comment on above: Performed By: #### F ERR, CBC, FE, ANEU, ADIFF #### [address] [address] Platelet 202 10 3/mcL Normal 150-450 [facility] Comment on above: Performed By: #### F ERR, CBC, FE, ANEU, ADIFF #### [place] [address] RBC 3.92 10 6/mcL Low 4.50-6.00 [facility] Comment on above: Performed By: #### F ERR, CBC, FE, ANEU, ADIFF #### [place] [address] WBC 5.9 10 3/mcL Normal 4.5-10.8 [facility] Comment on above: Performed By: #### F ERR, CBC, FE, ANEU, ADIFF #### [place] [address] CBCOrdered By: SYSTEM SYSTEM on 10-20-2024 Erythrocyte distribution width (RBC) [Ratio] 14.1 % Normal 11.5-15.5 AO Workflow SS Comment on above: Performed By: #### F ERR, CBC, FE, ANEU, ADIFF #### [place] [address] Hematocrit (Bld) [Volume fraction] 36.4 % Low 40.0-52.0 AO Workflow SS Comment on above: Performed By: #### F ERR, CBC, FE, ANEU, ADIFF #### [place] [address] MCH (RBC) [Entitic mass] 32.3 pg Normal 27.0-33.0 AO Workflow SS Comment on above: Performed By: #### F ERR, CBC, FE, ANEU, ADIFF #### [place] [address] MCHC 34.8 G/dL Normal 32.0-36.0 AO Workflow SS Comment on above: Performed By: #### F ERR, CBC, FE, ANEU, ADIFF #### [place] [address] MCV (RBC) [Entitic vol] 92.8 fL Normal 81.0-100.0 A O Workflow SS Comment on above: Performed By: #### F ERR, CBC, FE, ANEU, ADIFF #### [place] [address] Platelet mean volume (Bld) [Entitic vol] 7.3 fL Normal 6.4-10.5 AO Workflow SS Comment on above: Performed By: #### F ERR, CBC, FE, ANEU, ADIFF #### [place] [id number] CMPon 10-20-2024 Albumin Level 4.0 G/dL Normal 3.4-4.8 [facility] Comment on above: Performed By: #### F ERR, CBC, FE, ANEU, ADIFF #### [place] [address] ALT [Catalytic activity/Vol] 20 U/L Normal 16-63 [facility] Comment on above: Performed By: #### F ERR, CBC, FE, ANEU, ADIFF #### [place] [address] AST [Catalytic activity/Vol] 25 U/L Normal 10-40 [facility] Comment on above: Performed By: #### F ERR, CBC, FE, ANEU, ADIFF #### [place] [address] Bili Total 0.6 mg/dL Normal 0.2-1.0 [facility] Comment on above: Result Comment: Use of this assay is not recommended for patients undergoing treatment with eltrombopag due to the potential for falsely elevated results. Performed By: #### F ERR, CBC, FE, ANEU, ADIFF #### [place] [address] BUN/Creatinine Ratio 19 ratio Normal 7-27 [facility] Comment on above: Performed By: #### F ERR, CBC, FE, ANEU, ADIFF #### [place] [address] Total Protein 7.1 G/dL Normal 6.4-8.2 [facility] Comment on above: Performed By: #### F ERR, CBC, FE, ANEU, ADIFF #### [address] [address] Urea nitrogen [Mass/Vol] 11 mg/dL Normal 7-18 [facility] Comment on above: Performed By: #### F ERR, CBC, FE, ANEU, ADIFF #### [address] [address] CMPOrdered By: SYSTEM SYSTEM on 10-20-2024 Albumin/Globulin [Mass ratio] 1.3 {ratio} Normal 1.1-2.5 AO ADM SS Comment on above: Performed By: #### F ERR, CBC, FE, ANEU, ADIFF #### [address] [address] ALP [Catalytic activity/Vol] 68 U/L Normal 40-135 AO ADM SS Comment on above: Performed By: #### F ERR, CBC, FE, ANEU, ADIFF #### [address] [address] Calcium [Mass/Vol] 9.2 mg/dL Normal 8.4-10.2 AO ADM SS Comment on above: Performed By: #### F ERR, CBC, FE, ANEU, ADIFF #### [address] [address] Chloride [Moles/Vol] 88 mmol/L Low 98-107 AO A DM SS Comment on above: Performed By: #### F ERR, CBC, FE, ANEU, ADIFF #### [address] [address] CO2 [Moles/Vol] 30 mmol/L Normal 23-31 AO ADM SS Comment on above: Performed By: #### F ERR, CBC, FE, ANEU, ADIFF #### [address] [address] Creatinine [Mass/Vol] 0.57 mg/dL Low 0.67-1.17 AO ADM SS Comment on above: Performed By: #### F ERR, CBC, FE, ANEU, ADIFF #### [address] [address] Electrolyte Balance 4.0 mEq/L Normal 4.0-15.0 AO AD M SS Comment on above: Performed By: #### F ERR, CBC, FE, ANEU, ADIFF #### [address] [address] Globulin 3.1 G/dL Normal 2.7-4.4 AO ADM SS Comment on above: Performed By: #### F ERR, CBC, FE, ANEU, ADIFF #### [address] [address] Glucose [Mass/Vol] 166 mg/dL High 83-110 AO ADM SS Comment on above: Performed By: #### F ERR, CBC, FE, ANEU, ADIFF #### [address] [address] Potassium [Moles/Vol] 4.0 mmol/L Normal 3.5-5.1 AO ADM SS Comment on above: Performed By: #### F ERR, CBC, FE, ANEU, ADIFF #### [address] [address] Sodium [Moles/Vol] 122 mmol/L Low 136-145 AO ADM SS Comment on above: Performed By: #### F ERR, CBC, FE, ANEU, ADIFF #### [address] [address] [address] HEAD OR BRAIN W/O CONTRAS Ton 10-20-2024 CT HEAD OR BRAIN W/O CONTRAST ORIGINAL EXAMINATION: CT OF THE HEAD WITHOUT CONTRAST 10/20/2024 11:49 am TECHNIQUE: CT of the head was performed without the administration of intravenous contrast. Automated exposure control, iterative reconstruction, and/or weight based adjustment of the mA/kV was utilized to reduce the radiation dose to as low as reasonably achievable. COMPARISON: None. HISTORY: ORDERING SYSTEM PROVIDED HISTORY: Reason for Exam: Mental status change, persistent or worsening FINDINGS: BRAIN/VENTRICLES: There is no acute intracranial hemorrhage, mass effect or midline shift. No abnormal extra-axial fluid collection. The ventricles and sulci are prominent, unchanged. ORBITS: The visualized portion of the orbits demonstrate no acute abnormality. SINUSES: The visualized paranasal sinuses and mastoid air cells demonstrate no acute abnormality. SOFT TISSUES/SKULL: No acute abnormality of the visualized skull or soft tissues. IMPRESSION: No acute intracranial abnormality. Interpreted by: Stephanie Rasheed Preliminary Report By: Stephanie Rasheed Electronically signed By Stephanie Rasheed Dictated Date: 10/20/2024 11:51:25 AM Prelim Date: 10/20/2024 11:52:19 AM Sign Date: 10/20/2024 11:52:19 AM Ordering Provider: JAMIE Spangler [facility] LABORATORYOrdered By: SYSTEM SYSTEM on 10-20-2024 Lactate [Moles/Vol] 0.8 mmol/L Normal 0.5 - 2. 2 mmol/L AH ADM SS TSH Qn 2.130 mIU/mL Normal 0.550 - 4.780 mIU/mL AH ADM SS Calcium [Mass/Vol] 8.8 mg/dL Normal 8.4 - 10. 2 mg/dL AO ADM SS Chloride [Moles/Vol] 90 mmol/L Low 98 - 10 7 mmol/L AO ADM SS CO2 [Moles/Vol] 28 mmol/L Normal 23 - 31 mmol/L AO ADM SS Creatinine [Mass/Vol] 0.56 mg/dL Low 0.67 - 1.17 mg/dL AO ADM SS Electrolyte Balance 5.0 mEq/L Normal 4.0 - 15 .0 mEq/L AO ADM SS Estimated Glomerular Filtration Rate 97 ml/min/1.73sqm Invalid Interpretation Code AO Chemistry S Comment on above: Interpretive Data: Stages of Chronic Kidney Disease (CKD) Stage Description eGFR(ml/min/1.73 sq.m.) CKD 1 Normal kidney function or >=90 normal kindney function with possible kidney damage (ex. Proteinuria) CKD 2 Kidney damage with mild loss 60-89 of kidney function CKD 3a Mild to moderate loss of kidney 45-59 function CKD 3b Moderate to severe loss of 30-44 of kindey function CKD 4 Severe loss of kidney function 15-29 CKD 5 Kidney failure <15 Note: (go live 2024) the eGFR calculation was updated to the 2020 CKD-EPI creatinine equation without a race factor to calculate the eGFR results. Glucose [Mass/Vol] 140 mg/dL High 83 - 110 mg/dL AO ADM SS Potassium [Moles/Vol] 3.8 mmol/L Normal 3.5 - 5.1 mmol/L AO ADM SS Sodium (U) [Moles/Vol] 59 mmol/L Invalid Interpretation Code AO ADM SS Sodium [Moles/Vol] 123 mmol/L Low 136 - 145 mmol/L AO ADM SS Urea nitrogen/Creatinine [Mass ratio] 20 ratio Normal 7 - 27 ratio AO ADM SS Albumin BCP dye [Mass/Vol] 4.0 G/dL Normal 3.4 - 4.8 G/dL AO ADM SS ALT With P-5'-P [Catalytic activity/Vol] 20 U/L Normal 16 - 63 U/L AO ADM SS AST With P-5'-P [Catalytic activity/Vol] 25 U/L Normal 10 - 40 U/L AO ADM SS Basophils (Bld) [#/Vol] 0.0 103/mcL Normal 0.0 - 0.3 10^3/mcL AO Workflow SS Bilirubin [Mass/Vol] 0.6 mg/dL Normal 0.2 - 1 .0 mg/dL AO ADM SS Comment on above: Interpretive Data: U se of this assay is not recommended for patients undergoing treatment with eltrombopag due to the potential for falsely elevated results. Hemoglobin (Bld) [Mass/Vol] 12.7 G/dL Low 13.0 - 17.5 G/dL AO Workflow SS Lymphocytes (Bld) [#/Vol] 0.8 103/mcL Low 0.9 - 4.3 10^3/mcL AO Workflow SS Monocyte distribution width Auto (Bld) [Entitic vol] 17.30 1 Normal 0.00 - 20.00 AO Workflow SS Comment on above: Result Comment: For ED adult patients suspected of sepsis, MDW<=20.0 does not rule out sepsis or risk of sepsis Monocytes (Bld) [#/Vol] 0.5 103/mcL Normal 0.1 - 1.4 10^3/mcL AO Workflow SS Neutrophils (Bld) [#/Vol] 4.5 103/mcL Normal 2.3 - 8.1 10^3/mcL AO Workflow SS Platelets (Bld) [#/Vol] 202 103/mcL Normal 150 - 450 10^3/mcL AO Workflow SS Protein [Mass/Vol] 7.1 G/dL Normal 6.4 - 8.2 G/dL AO ADM SS RBC (Bld) [#/Vol] 3.92 106/mcL Low 4.50 - 6.0 0 10^6/mcL AO Workflow SS Troponin I.cardiac DL <= 0.01 ng/mL [Mass/Vol] 20 ng/L Normal 0 - 76 ng/L AO ADM SS Comment on above: Interpretive Data: H igh Sensitive Troponin I Reference Ranges: Female: 0-51 ng/L Male: 0-76 ng/L Testing performed on [employer] using a homogeneous sandwich chemiluminescent immunoassay based on [employer] technology. Urea nitrogen/Creatinine [Mass ratio] 19 ratio Normal 7 - 27 ratio AO ADM SS WBC (Bld) [#/Vol] 5.9 103/mcL Normal 4.5 - 10.8 10^3/mcL AO Workflow SS LABORATORYOrdered By: Valentin Bee on 10-20-2024 Amphetamines Screen Ql (U) Negative *NA* (10/20/24 12:12 PM) Invalid Interpretation Code Negative AO ADM SS Barbiturates Screen Ql (U) Negative *NA* (10/20/24 12:12 PM) Invalid Interpretation Code Negative AO ADM SS Benzodiazepines Ql (U) Negative *NA* (10/20/24 12:12 PM) Invalid Interpretation Code Negative AO ADM SS Benzoylecgonine Screen Ql (U) Negative *NA* (10/20/24 12:12 PM) Invalid Interpretation Code Negative AO ADM SS Cannabinoids Screen Ql (U) Negative *NA* (10/20/24 12:12 PM) Invalid Interpretation Code Negative AO ADM SS Methadone Screen Ql (U) Negative *NA* (10/20/24 12:12 PM) Invalid Interpretation Code Negative AO ADM SS Opiates Screen Ql (U) Positive *ABN* (10/20/24 12:12 PM) Invalid Interpretation Code Negative AO ADM SS Phencyclidine Ql (U) Negative *NA* (10/20/24 12:12 PM) Invalid Interpretation Code Negative AO ADM SS Urine Drugs screened: See Below 4 (10/20/24 12:12 PM) Normal AO Chemistry S Comment on above: Interpretive Data: T his drug screen is a presumptive screening only. No confirmation will be performed unless requested. Drugs screened include: Threshold Amphetamines/Methamphetamines 1,000 ng/mL Barbiturates 200 ng/mL Benzodiazepine metabolites 200 ng/mL Cannabinoids (THC metabolites) 50 ng/mL Cocaine 300 ng/mL Opiates 300 ng/mL Methadone 300 ng/mL Phencyclidine (PCP) 25 ng/mL Testing has been performed FOR MEDICAL PURPOSES ONLY. LACon 10-20-2024 Lactic Acid Lvl 0.8 mmol/L Normal 0.5-2.2 [facility] Comment on above: Performed By: #### A DIFF, CBC, BMP, ANEU, MG, GFR #### [address] [address] Laboratory - Chemistry and C hemistry - challengeOrdered By: SYSTEM SYSTEM on 10-20-2024 Urea nitrogen [Mass/Vol] 11 mg/dL Normal 7 - 18 mg/dL AO ADM SS MGon 10-20-2024 Magnesium [Mass/Vol] 2.2 mg/dL Normal 1.6-2.4 [facility] Comment on above: Performed By: #### A DIFF, CBC, BMP, ANEU, MG, GFR #### [address] [address] MGOrdered By: SYSTEM SYSTEM on 10-20-2024 Magnesium [Mass/Vol] 1.6 mg/dL Low 1.8-2.4 AO A DM SS Comment on above: Performed By: #### F ERR, CBC, FE, ANEU, ADIFF #### [address] [address] NAURon 10-20-2024 Sodium [Moles/Vol] 59 mmol/L Normal [facility] Comment on above: Performed By: #### F ERR, CBC, FE, ANEU, ADIFF #### [address] [address] No Panel Informationon 10-20 Culture Urine 10,000 - 50,000 cfu/ml Mixed growth consistent with normal urogenital dorinda. [facility] 10-20-2024 High Sensitivity Troponin I 20 ng/L Normal 0-76 [facility] Comment on above: Result Comment: High Sensitive Troponin I Reference Ranges: Female: 0-51 ng/L Male: 0-76 ng/L Testing performed on [employer] using a homogeneous sandwich chemiluminescent immunoassay based on [employer] technology. Performed By: #### F ERR, CBC, FE, ANEU, ADIFF #### [address] [address] TSHon 10-20-2024 TSH 2.130 mIU/mL Normal 0.550-4.780 [facility] Comment on above: Performed By: #### A DIFF, CBC, BMP, ANEU, MG, GFR #### [facility] [address] [place] [address] TSHROrdered By: SYSTEM SYSTE M on 10-20-2024 TSH Qn 2.53 m[IU]/L Normal 0.36-3.74 AO ADM SS Comment on above: Performed By: #### F ERR, CBC, FE, ANEU, ADIFF #### [place] [address] UDRUGon 10-20-2024 Amphetamine (u) Negative Normal Negative [facility] Comment on above: Performed By: #### F ERR, CBC, FE, ANEU, ADIFF #### [place] [address] Barbiturate (u) Negative Normal Negative [facility] Comment on above: Performed By: #### F ERR, CBC, FE, ANEU, ADIFF #### [place] [address] Benzodiazepine (u) Negative Normal Negative [facility] Comment on above: Performed By: #### F ERR, CBC, FE, ANEU, ADIFF #### [address] [address] Cannabinoid (u) Negative Normal Negative [facility] Comment on above: Performed By: #### F ERR, CBC, FE, ANEU, ADIFF #### [address] [address] Cocaine Ql (U) Negative Normal Negative [facility] Comment on above: Performed By: #### F ERR, CBC, FE, ANEU, ADIFF #### [address] [address] Methadone Ql (U) Negative Normal Negative [facility] Comment on above: Performed By: #### F ERR, CBC, FE, ANEU, ADIFF #### [place] [address] Opiate (u) Positive Abnormal Negative [facility] Comment on above: Performed By: #### F ERR, CBC, FE, ANEU, ADIFF #### [place] [id number] [place], [place] [address] PCP (u) Negative Normal Negative [facility] Comment on above: Performed By: #### F ERR, CBC, FE, ANEU, ADIFF #### [address] [address] Urine Drugs screened: See Below Normal L [facility] Comment on above: Result Comment: This drug screen is a presumptive screening only. No confirmation will be performed unless requested. Drugs screened include: Threshold Amphetamines/Methamphetamines 1,000 ng/mL Barbiturates 200 ng/mL Benzodiazepine metabolites 200 ng/mL Cannabinoids (THC metabolites) 50 ng/mL Cocaine 300 ng/mL Opiates 300 ng/mL Methadone 300 ng/mL Phencyclidine (PCP) 25 ng/mL Testing has been performed FOR MEDICAL PURPOSES ONLY. Performed By: #### F ERR, CBC, FE, ANEU, ADIFF #### [address] [address] XR CHEST 2 VIEWSon XR CHEST 2 VIEWS ORIGINAL EXAMINATION: TWO XRAY VIEWS OF THE CHEST 10/20/2024 11:52 am COMPARISON: 04/08/2021 HISTORY: ORDERING SYSTEM PROVIDED HISTORY: Reason for Exam: Chest Pain FINDINGS: Cardiomediastinal silhouette is prominent. Central pulmonary vascular congestion. Aortic arch calcifications. No focal consolidation. No pleural effusion. No pneumothorax. Age indeterminate right-sided rib fractures of 4, 5, 6 lateral ribs. IMPRESSION: 1. Cardiomegaly with central pulmonary vascular congestion. 2. Age indeterminate right-sided rib fractures of 4, 5, 6 lateral ribs. Correlate with point tenderness. Interpreted by: Mirian Denny Preliminary Report By: Mirian Denny Electronically signed By Mirian Denny Dictated Date: 10/20/2024 12:03:00 PM Prelim Date: 10/20/2024 12:10:04 PM Sign Date: 10/20/2024 12:10:04 PM Ordering Provider: JAMIE TAYLOR Normal [facility] LABORATORYOrdered By: Abigail Graham on 10-08-2024 Albumin DL <= 20 mg/L (U) [Mass/Vol] 8.1 mg/L Invalid Interpretation Code AO ADM SS Albumin/Creatinine DL <= 20 mg/L (U) [Mass ratio] 17 mg/G Normal 0 - 30 mg/G AO Chemistry S Creatinine (U) [Mass/Vol] 47.6 mg/dL Normal 40.0 - 278.0 mg/dL AO ADM SS MALBRon 10-08-2024 U Creatinine 47.6 mg/dL Normal 40.0-278.0 [facility] Comment on above: Performed By: #### F ERR, CBC, FE, ANEU, ADIFF #### [address] [address] U Microalb 8.1 mg/L Normal [facility] Comment on above: Performed By: #### F ERR, CBC, FE, ANEU, ADIFF #### [place] [address] U Ratio Alb/Cre 17 mg/G Normal 0-30 [facility] Comment on above: Performed By: #### F ERR, CBC, FE, ANEU, ADIFF #### [place] [address] .Auto Diffon 10-05-2024 Basophil, Absolute 0.0 10 3/mcL Normal 0.0-0.3 [facility] Comment on above: Performed By: #### F ERR, CBC, FE, ANEU, ADIFF #### [address] [address] Basophils/100 WBC (Bld) 0.9 % Normal 0.0-2.5 [facility] Comment on above: Performed By: #### F ERR, CBC, FE, ANEU, ADIFF #### [place] [address] Eosinophil, Absolute 0.2 10 3/mcL Normal 0.0-0.7 [facility] Comment on above: Performed By: #### F ERR, CBC, FE, ANEU, ADIFF #### [place] [address] Eosinophils/100 WBC (Bld) 4.9 % Normal 0.0-6.0 [facility] Comment on above: Performed By: #### F ERR, CBC, FE, ANEU, ADIFF #### [address] [address] Lymphocyte, Absolute 1.4 10 3/mcL Normal 0.9-4.3 [facility] Comment on above: Performed By: #### F ERR, CBC, FE, ANEU, ADIFF #### [address] [address] Lymphocytes/100 WBC (Bld) 33.5 % Normal 20.0-40.0 [facility] Comment on above: Performed By: #### F ERR, CBC, FE, ANEU, ADIFF #### [address] [address] Monocyte, Absolute 0.4 10 3/mcL Normal 0.1-1.4 [facility] Comment on above: Performed By: #### F ERR, CBC, FE, ANEU, ADIFF #### [address] [address] Monocytes/100 WBC (Bld) 9.8 % Normal 2.0-13.0 [facility] Comment on above: Performed By: #### F ERR, CBC, FE, ANEU, ADIFF #### [address] [address] Neutrophils/100 WBC (Bld) 50.9 % Normal 50.0-75.0 [facility] Comment on above: Performed By: #### F ERR, CBC, FE, ANEU, ADIFF #### [address] [address] .NEUABSon 10-05-2024 Neutrophil, Absolute 2.1 10 3/mcL Low 2.3-8.1 [facility] Comment on above: Performed By: #### F ERR, CBC, FE, ANEU, ADIFF #### [address] [address] CBCon 10-05-2024 Erythrocyte distribution width (RBC) [Ratio] 14.2 % Normal 11.5-15.5 [facility] Comment on above: Performed By: #### F ERR, CBC, FE, ANEU, ADIFF #### [address] [address] Hematocrit (Bld) [Volume fraction] 36.4 % Low 40.0-52.0 [facility] Comment on above: Performed By: #### F ERR, CBC, FE, ANEU, ADIFF #### [address] [address] Hgb 12.5 G/dL Low 13.0-17.5 [facility] Comment on above: Performed By: #### F ERR, CBC, FE, ANEU, ADIFF #### [address] [address] MCH (RBC) [Entitic mass] 32.0 pg Normal 27.0-33.0 [facility] Comment on above: Performed By: #### F ERR, CBC, FE, ANEU, ADIFF #### [address] [address] MCHC 34.3 G/dL Normal 32.0-36.0 [facility] Comment on above: Performed By: #### F ERR, CBC, FE, ANEU, ADIFF #### [address] [address] MCV (RBC) [Entitic vol] 93.3 fL Normal 81.0-100.0 [facility] Comment on above: Performed By: #### F ERR, CBC, FE, ANEU, ADIFF #### [address] [address] Platelet 203 10 3/mcL Normal 150-450 [facility] Comment on above: Performed By: #### F ERR, CBC, FE, ANEU, ADIFF #### [address] [address] Platelet mean volume (Bld) [Entitic vol] 8.2 fL Normal 6.4-10.5 [facility] Comment on above: Performed By: #### F ERR, CBC, FE, ANEU, ADIFF #### [place] [address] RBC 3.90 10 6/mcL Low 4.50-6.00 [facility] Comment on above: Performed By: #### F ERR, CBC, FE, ANEU, ADIFF #### [place] [address] WBC 4.2 10 3/mcL Low 4.5-10.8 [facility] Comment on above: Performed By: #### F ERR, CBC, FE, ANEU, ADIFF #### [place] [address] FEon 10-05-2024 Iron [Mass/Vol] 84 ug/dL Normal 65-175 [facility] Comment on above: Performed By: #### F ERR, CBC, FE, ANEU, ADIFF #### [place] [address] Tres 10-05-2024 Ferritin [Mass/Vol] 55.0 ng/mL Normal 26.0-388.0 [facility] Comment on above: Performed By: #### F ERR, CBC, FE, ANEU, ADIFF #### [place] [address] LABORATORYOrdered By: SYSTEM SYSTEM on 10-05-2024 Basophils (Bld) [#/Vol] 0.0 103/mcL Normal 0.0 - 0.3 10^3/mcL AO Workflow SS Basophils/100 WBC (Bld) 0.9 % Normal 0.0 - 2.5 % AO Workflow SS Eosinophil, Absolute 0.2 103/mcL Normal 0.0 - 0 .7 10^3/mcL AO Workflow SS Eosinophils/100 WBC (Bld) 4.9 % Normal 0.0 - 6.0 % AO Workflow SS Erythrocyte distribution width (RBC) [Ratio] 14.2 % Normal 11.5 - 15.5 % AO Workflow SS Ferritin [Mass/Vol] 55.0 ng/mL Normal 26.0 - 3 88.0 ng/mL AO ADM SS Hematocrit (Bld) [Volume fraction] 36.4 % Low 40.0 - 52.0 % AO Workflow SS Hemoglobin (Bld) [Mass/Vol] 12.5 G/dL Low 13.0 - 17.5 G/dL AO Workflow SS Iron [Mass/Vol] 84 ug/dL Normal 65 - 175 mcg/dL AO ADM SS Lymphocytes (Bld) [#/Vol] 1.4 103/mcL Normal 0.9 - 4.3 10^3/mcL AO Workflow SS Lymphocytes/100 WBC (Bld) 33.5 % Normal 20.0 - 40.0 % AO Workflow SS MCH (RBC) [Entitic mass] 32.0 pg Normal 27.0 - 33.0 pg AO Workflow SS MCHC 34.3 G/dL Normal 32.0 - 36.0 G/dL AO Workflow SS MCV (RBC) [Entitic vol] 93.3 fL Normal 81.0 - 100.0 fL AO Workflow SS Monocytes (Bld) [#/Vol] 0.4 103/mcL Normal 0.1 - 1.4 10^3/mcL AO Workflow SS Monocytes/100 WBC (Bld) 9.8 % Normal 2.0 - 13.0 % AO Workflow SS Neutrophils (Bld) [#/Vol] 2.1 103/mcL Low 2.3 - 8.1 10^3/mcL AO Workflow SS Neutrophils/100 WBC (Bld) 50.9 % Normal 50.0 - 75.0 % AO Workflow SS Platelet mean volume (Bld) [Entitic vol] 8.2 fL Normal 6.4 - 10.5 fL AO Workflow SS Platelets (Bld) [#/Vol] 203 103/mcL Normal 150 - 450 10^3/mcL AO Workflow SS RBC (Bld) [#/Vol] 3.90 106/mcL Low 4.50 - 6.0 0 10^6/mcL AO Workflow SS WBC (Bld) [#/Vol] 4.2 103/mcL Low 4.5 - 10.8 10^3/mcL AO Workflow SS .Auto Diffon 07-06-2024 Basophil, Absolute 0.0 10 3/mcL Normal 0.0-0.2 [facility] Comment on above: Performed By: #### F ERR, CBC, FE, ANEU, ADIFF #### [address] [address] Basophils/100 WBC (Bld) 0.9 % Normal 0.0-2.5 [facility] Comment on above: Performed By: #### F ERR, CBC, FE, ANEU, ADIFF #### [address] [address] Eosinophil, Absolute 0.2 10 3/mcL Normal 0.0-0.7 [facility] Comment on above: Performed By: #### F ERR, CBC, FE, ANEU, ADIFF #### [address] [address] Eosinophils/100 WBC (Bld) 4.4 % Normal 0.0-7.0 [facility] Comment on above: Performed By: #### F ERR, CBC, FE, ANEU, ADIFF #### [address] [address] Lymphocyte, Absolute 1.4 10 3/mcL Normal 0.9-4.3 [facility] Comment on above: Performed By: #### F ERR, CBC, FE, ANEU, ADIFF #### [address] [address] Lymphocytes/100 WBC (Bld) 28.4 % Normal 20.0-40.0 [facility] Comment on above: Performed By: #### F ERR, CBC, FE, ANEU, ADIFF #### [address] [address] Monocyte, Absolute 0.5 10 3/mcL Normal 0.1-1.4 [facility] Comment on above: Performed By: #### F ERR, CBC, FE, ANEU, ADIFF #### [address] [address] Monocytes/100 WBC (Bld) 9.1 % Normal 2.0-13.0 [facility] Comment on above: Performed By: #### F ERR, CBC, FE, ANEU, ADIFF #### [address] [address] Neutrophils/100 WBC (Bld) 57.2 % Normal 50.0-75.0 [facility] Comment on above: Performed By: #### F ERR, CBC, FE, ANEU, ADIFF #### [place] [address] .NEUABSon 07-06-2024 Neutrophil, Absolute 2.9 10 3/mcL Normal 2.3-8.1 [facility] Comment on above: Performed By: #### F ERR, CBC, FE, ANEU, ADIFF #### [place] [address] CBCon 07-06-2024 Erythrocyte distribution width (RBC) [Ratio] 15.5 % Normal 11.5-15.5 [facility] Comment on above: Performed By: #### F ERR, CBC, FE, ANEU, ADIFF #### [place] [address] Hematocrit (Bld) [Volume fraction] 37.0 % Low 40.0-52.0 [facility] Comment on above: Performed By: #### F ERR, CBC, FE, ANEU, ADIFF #### [place] [address] Hgb 12.7 G/dL Low 13.0-17.5 [facility] Comment on above: Performed By: #### F ERR, CBC, FE, ANEU, ADIFF #### [place] [address] MCH (RBC) [Entitic mass] 32.3 pg Normal 27.0-33.0 [facility] Comment on above: Performed By: #### F ERR, CBC, FE, ANEU, ADIFF #### [place] [address] MCHC 34.4 G/dL Normal 32.0-36.0 [facility] Comment on above: Performed By: #### F ERR, CBC, FE, ANEU, ADIFF #### [place] [address] MCV (RBC) [Entitic vol] 93.9 fL Normal 81.0-100.0 [facility] Comment on above: Performed By: #### F ERR, CBC, FE, ANEU, ADIFF #### [place] [address] Platelet 192 10 3/mcL Normal 150-450 [facility] Comment on above: Performed By: #### F ERR, CBC, FE, ANEU, ADIFF #### [place] [address] Platelet mean volume (Bld) [Entitic vol] 8.0 fL Normal 6.4-10.5 [facility] Comment on above: Performed By: #### F ERR, CBC, FE, ANEU, ADIFF #### [place] [address] RBC 3.94 10 6/mcL Low 4.50-6.00 [facility] Comment on above: Performed By: #### F ERR, CBC, FE, ANEU, ADIFF #### [place] [address] WBC 5.1 10 3/mcL Normal 4.5-10.8 [facility] Comment on above: Performed By: #### F ERR, CBC, FE, ANEU, ADIFF #### [place] [address] FEon 07-06-2024 Iron [Mass/Vol] 77 ug/dL Normal 65-175 [facility] Comment on above: Performed By: #### F ERR, CBC, FE, ANEU, ADIFF #### [place] [address] Tres 07-06-2024 Ferritin [Mass/Vol] 74.0 ng/mL Normal 26.0-388.0 [facility] Comment on above: Performed By: #### F ERR, CBC, FE, ANEU, ADIFF #### [place] [address] LABORATORYOrdered By: SYSTEM SYSTEM on 07-06-2024 Basophils (Bld) [#/Vol] 0.0 103/mcL Normal 0.0 - 0.2 10^3/mcL AO Workflow SS Basophils/100 WBC (Bld) 0.9 % Normal 0.0 - 2.5 % AO Workflow SS Eosinophil, Absolute 0.2 103/mcL Normal 0.0 - 0 .7 10^3/mcL AO Workflow SS Eosinophils/100 WBC (Bld) 4.4 % Normal 0.0 - 7.0 % AO Workflow SS Erythrocyte distribution width (RBC) [Ratio] 15.5 % Normal 11.5 - 15.5 % AO Workflow SS Ferritin [Mass/Vol] 74.0 ng/mL Normal 26.0 - 3 88.0 ng/mL AO ADM SS Hematocrit (Bld) [Volume fraction] 37.0 % Low 40.0 - 52.0 % AO Workflow SS Hemoglobin (Bld) [Mass/Vol] 12.7 G/dL Low 13.0 - 17.5 G/dL AO Workflow SS Iron [Mass/Vol] 77 ug/dL Normal 65 - 175 mcg/dL AO ADM SS Lymphocytes (Bld) [#/Vol] 1.4 103/mcL Normal 0.9 - 4.3 10^3/mcL AO Workflow SS Lymphocytes/100 WBC (Bld) 28.4 % Normal 20.0 - 40.0 % AO Workflow SS MCH (RBC) [Entitic mass] 32.3 pg Normal 27.0 - 33.0 pg AO Workflow SS MCHC 34.4 G/dL Normal 32.0 - 36.0 G/dL AO Workflow SS MCV (RBC) [Entitic vol] 93.9 fL Normal 81.0 - 100.0 fL AO Workflow SS Monocytes (Bld) [#/Vol] 0.5 103/mcL Normal 0.1 - 1.4 10^3/mcL AO Workflow SS Monocytes/100 WBC (Bld) 9.1 % Normal 2.0 - 13.0 % AO Workflow SS Neutrophils (Bld) [#/Vol] 2.9 103/mcL Normal 2.3 - 8.1 10^3/mcL AO Workflow SS Neutrophils/100 WBC (Bld) 57.2 % Normal 50.0 - 75.0 % AO Workflow SS Platelet mean volume (Bld) [Entitic vol] 8.0 fL Normal 6.4 - 10.5 fL AO Workflow SS Platelets (Bld) [#/Vol] 192 103/mcL Normal 150 - 450 10^3/mcL AO Workflow SS RBC (Bld) [#/Vol] 3.94 106/mcL Low 4.50 - 6.0 0 10^6/mcL AO Workflow SS WBC (Bld) [#/Vol] 5.1 103/mcL Normal 4.5 - 10.8 10^3/mcL AO Workflow SS LABORATORYOrdered By: Dolores Bal on 04-27-2024 Albumin DL <= 20 mg/L (U) [Mass/Vol] 5011 mcg/dL Invalid Interpretation Code AO ADM SS Albumin/Creatinine DL <= 20 mg/L (U) [Mass ratio] 35 mcg/mg High 0 - 30 mcg/mg AO Chemistry S Creatinine (U) [Mass/Vol] 144.6 mg/dL Invalid Interpretation Code AO ADM SS MALBRon 04-27-2024 U Creatinine 144.6 mg/dL Normal [facility] Comment on above: Performed By: #### F ERR, CBC, FE, ANEU, ADIFF #### [address] [address] U Microalb 5011 mcg/dL Normal [facility] Comment on above: Performed By: #### F ERR, CBC, FE, ANEU, ADIFF #### [address] [address] U Ratio Alb/Cre 35 mcg/mg High 0-30 [facility] Comment on above: Performed By: #### F ERR, CBC, FE, ANEU, ADIFF #### [address] [address] LABORATORYOrdered By: Vaughn Schneider on 04-09-2024 Albumin DL <= 20 mg/L (U) [Mass/Vol] 3705 mcg/dL Invalid Interpretation Code AO ADM SS Albumin/Creatinine DL <= 20 mg/L (U) [Mass ratio] 47 mcg/mg High 0 - 30 mcg/mg AO ADM SS Creatinine (U) [Mass/Vol] 78.8 mg/dL Normal 39.0 - 259.0 mg/dL AO ADM SS MALBRon 04-09-2024 U Creatinine 78.8 mg/dL Normal 39.0-259.0 [facility] Comment on above: Performed By: #### F ERR, CBC, FE, ANEU, ADIFF #### [address] [address] U Microalb 3705 mcg/dL Normal [facility] Comment on above: Performed By: #### F ERR, CBC, FE, ANEU, ADIFF #### [address] [address] U Ratio Alb/Cre 47 mcg/mg High 0-30 [facility] Comment on above: Performed By: #### F ERR, CBC, FE, ANEU, ADIFF #### [address] [address] .Auto Diffon 04-03-2024 Basophil, Absolute 0.0 10 3/mcL Normal 0.0-0.2 [facility] Comment on above: Performed By: #### F ERR, CBC, FE, ANEU, ADIFF #### [address] [address] Basophils/100 WBC (Bld) 0.2 % Normal 0.0-2.5 [facility] Comment on above: Performed By: #### F ERR, CBC, FE, ANEU, ADIFF #### [address] [address] Eosinophil, Absolute 0.2 10 3/mcL Normal 0.0-0.7 [facility] Comment on above: Performed By: #### F ERR, CBC, FE, ANEU, ADIFF #### [address] [address] Eosinophils/100 WBC (Bld) 1.9 % Normal 0.0-7.0 [facility] Comment on above: Performed By: #### F ERR, CBC, FE, ANEU, ADIFF #### [address] [address] Lymphocyte, Absolute 1.1 10 3/mcL Normal 0.9-4.3 [facility] Comment on above: Performed By: #### F ERR, CBC, FE, ANEU, ADIFF #### [address] [address] Lymphocytes/100 WBC (Bld) 11.9 % Low 20.0-40.0 [facility] Comment on above: Performed By: #### F ERR, CBC, FE, ANEU, ADIFF #### [address] [address] Monocyte, Absolute 0.7 10 3/mcL Normal 0.1-1.4 [facility] Comment on above: Performed By: #### F ERR, CBC, FE, ANEU, ADIFF #### [place] [address] Monocytes/100 WBC (Bld) 7.4 % Normal 2.0-13.0 [facility] Comment on above: Performed By: #### F ERR, CBC, FE, ANEU, ADIFF #### [place] [address] Neutrophils/100 WBC (Bld) 78.6 % High 50.0-75.0 [facility] Comment on above: Performed By: #### F ERR, CBC, FE, ANEU, ADIFF #### [place] [address] .NEUABSon 04-03-2024 Neutrophil, Absolute 7.3 10 3/mcL Normal 2.3-8.1 [facility] Comment on above: Performed By: #### F ERR, CBC, FE, ANEU, ADIFF #### [place] [address] CBCon 04-03-2024 Erythrocyte distribution width (RBC) [Ratio] 14.2 % Normal 11.5-15.5 [facility] Comment on above: Performed By: #### F ERR, CBC, FE, ANEU, ADIFF #### [place] [address] Hematocrit (Bld) [Volume fraction] 36.1 % Low 40.0-52.0 [facility] Comment on above: Performed By: #### F ERR, CBC, FE, ANEU, ADIFF #### [place] [address] Hgb 12.4 G/dL Low 13.0-17.5 [facility] Comment on above: Performed By: #### F ERR, CBC, FE, ANEU, ADIFF #### [address] [address] MCH (RBC) [Entitic mass] 32.8 pg Normal 27.0-33.0 [facility] Comment on above: Performed By: #### F ERR, CBC, FE, ANEU, ADIFF #### [place] [address] MCHC 34.2 G/dL Normal 32.0-36.0 [facility] Comment on above: Performed By: #### F ERR, CBC, FE, ANEU, ADIFF #### [place] [address] MCV (RBC) [Entitic vol] 95.8 fL Normal 81.0-100.0 [facility] Comment on above: Performed By: #### F ERR, CBC, FE, ANEU, ADIFF #### [place] [address] Platelet 150 10 3/mcL Normal 150-450 [facility] Comment on above: Performed By: #### F ERR, CBC, FE, ANEU, ADIFF #### [place] [address] Platelet mean volume (Bld) [Entitic vol] 8.4 fL Normal 6.4-10.5 [facility] Comment on above: Performed By: #### F ERR, CBC, FE, ANEU, ADIFF #### [place] [address] RBC 3.77 10 6/mcL Low 4.50-6.00 [facility] Comment on above: Performed By: #### F ERR, CBC, FE, ANEU, ADIFF #### [place] [address] WBC 9.3 10 3/mcL Normal 4.5-10.8 [facility] Comment on above: Performed By: #### F ERR, CBC, FE, ANEU, ADIFF #### [place] [id number] [place], [place] [address] FEon 04-03-2024 Iron [Mass/Vol] 26 ug/dL Low 65-175 [facility] Comment on above: Performed By: #### F ERR, CBC, FE, ANEU, ADIFF #### [place] [id number] [place], [place] [address] Tres 04-03-2024 Ferritin [Mass/Vol] 76.0 ng/mL Normal 26.0-388.0 [facility] Comment on above: Performed By: #### F ERR, CBC, FE, ANEU, ADIFF #### [address] [address] LABORATORYOrdered By: SYSTEM SYSTEM on 04-03-2024 Basophils (Bld) [#/Vol] 0.0 103/mcL Normal 0.0 - 0.2 10^3/mcL AO Workflow SS Basophils/100 WBC (Bld) 0.2 % Normal 0.0 - 2.5 % AO Workflow SS Eosinophil, Absolute 0.2 103/mcL Normal 0.0 - 0 .7 10^3/mcL AO Workflow SS Eosinophils/100 WBC (Bld) 1.9 % Normal 0.0 - 7.0 % AO Workflow SS Erythrocyte distribution width (RBC) [Ratio] 14.2 % Normal 11.5 - 15.5 % AO Workflow SS Ferritin [Mass/Vol] 76.0 ng/mL Normal 26.0 - 3 88.0 ng/mL AO ADM SS Hematocrit (Bld) [Volume fraction] 36.1 % Low 40.0 - 52.0 % AO Workflow SS Hemoglobin (Bld) [Mass/Vol] 12.4 G/dL Low 13.0 - 17.5 G/dL AO Workflow SS Iron [Mass/Vol] 26 ug/dL Low 65 - 175 mcg/dL AO ADM SS Lymphocytes (Bld) [#/Vol] 1.1 103/mcL Normal 0.9 - 4.3 10^3/mcL AO Workflow SS Lymphocytes/100 WBC (Bld) 11.9 % Low 20.0 - 40.0 % AO Workflow SS MCH (RBC) [Entitic mass] 32.8 pg Normal 27.0 - 33.0 pg AO Workflow SS MCHC 34.2 G/dL Normal 32.0 - 36.0 G/dL AO Workflow SS MCV (RBC) [Entitic vol] 95.8 fL Normal 81.0 - 100.0 fL AO Workflow SS Monocytes (Bld) [#/Vol] 0.7 103/mcL Normal 0.1 - 1.4 10^3/mcL AO Workflow SS Monocytes/100 WBC (Bld) 7.4 % Normal 2.0 - 13.0 % AO Workflow SS Neutrophils (Bld) [#/Vol] 7.3 103/mcL Normal 2.3 - 8.1 10^3/mcL AO Workflow SS Neutrophils/100 WBC (Bld) 78.6 % High 50.0 - 75.0 % AO Workflow SS Platelet mean volume (Bld) [Entitic vol] 8.4 fL Normal 6.4 - 10.5 fL AO Workflow SS Platelets (Bld) [#/Vol] 150 103/mcL Normal 150 - 450 10^3/mcL AO Workflow SS RBC (Bld) [#/Vol] 3.77 106/mcL Low 4.50 - 6.0 0 10^6/mcL AO Workflow SS WBC (Bld) [#/Vol] 9.3 103/mcL Normal 4.5 - 10.8 10^3/mcL AO Workflow SS CT HEAD OR BRAIN W/O CONTRAS Ton 02-20-2024 CT HEAD OR BRAIN W/O CONTRAST ORIGINAL HISTORY: Fall COMPARISON: No TECHNIQUE: Routine noncontrast head CT, with sagittal and coronal reconstructions. This exam was performed according to our departmental dose optimization program, and includes the following measures where applicable: automated exposure control, adjustment of the mAs and/or kVp according to patient size and/or exam, and an iterative reconstruction algorithm. FINDINGS: The ventricles and sulci are mildly enlarged. There are no abnormal intra or extra-axial fluid collections. There is mild irregular decreased attenuation in the cerebral white matter. Leon-white matter differentiation is maintained. The calvaria and the bones of the base of the skull are intact. IMPRESSION: Mild volume loss and small vessel ischemic disease. Interpreted by: Jaxon Britton MD Preliminary Report By: Jaxon Britton MD Electronically signed By Jaxon Britton MD Dictated Date: 02/20/2024 3:28:27 PM Prelim Date: 02/20/2024 3:29:22 PM Sign Date: 02/20/2024 3:29:22 PM Ordering Provider: [facility] CT MAXILLOFACIAL W/O ARGELIA León 02-20-2024 CT MAXILLOFACIAL W/O CONTRAST ORIGINAL HISTORY: Fall COMPARISON: No TECHNIQUE: CT of the head through the facial bones with sagittal and coronal reconstructions. This exam was performed according to our departmental dose optimization program, and includes the following measures where applicable: automated exposure control, adjustment of the mAs and/or kVp according to patient size and/or exam, and an iterative reconstruction algorithm. FINDINGS: The orbital rims, zygomatic arches and the hanson of the maxillary sinuses are intact. The mandible is intact and the temporomandibular joints are properly seated. There is soft tissue swelling over the right IMPRESSION: Soft tissue injury. Interpreted by: Jaxon Britton MD Preliminary Report By: Jaxon Britton MD Electronically signed By Jaxon Britton MD Dictated Date: 02/20/2024 3:37:48 PM Prelim Date: 02/20/2024 3:38:46 PM Sign Date: 02/20/2024 3:38:46 PM Ordering Provider: [facility] CT SPINE CERVICAL W/O RICH Escobedo 02-20-2024 CT SPINE CERVICAL W/O CONTRAST ORIGINAL HISTORY: Fall COMPARISON: No TECHNIQUE: Cervical spine CT with sagittal and coronal reconstructions. This exam was performed according to our departmental dose optimization program, and includes the following measures where applicable: automated exposure control, adjustment of the mAs and/or kVp according to patient size and/or exam, and an iterative reconstruction algorithm. FINDINGS: There are no cervical acute fractures or dislocations. There is a mild compression deformity at the superior endplate of T2, age unknown; there is no edema in the surrounding paraspinous tissues. The cervical vertebral bodies are intact. The prevertebral soft tissues are unremarkable in appearance. IMPRESSION: No acute cervical fracture. Mild T2 compression fracture, age unknown. Interpreted by: Jaxon Britton MD Preliminary Report By: Jaxon Britton MD Electronically signed By Jaxon Britton MD Dictated Date: 02/20/2024 3:57:54 PM Prelim Date: 02/20/2024 3:59:40 PM Sign Date: 02/20/2024 3:59:40 PM Ordering Provider: [facility] .Auto Diffon 01-21-2024 Basophil, Absolute 0.1 10 3/mcL Normal 0.0-0.2 [facility] Comment on above: Performed By: #### F ERR, LIPID, PSA, FE, CMP, GFR, ADIFF, CBC, ANEU #### [place] [address] #### FOL, B12 #### [address] [address] Basophils/100 WBC (Bld) 1.0 % Normal 0.0-2.5 A [facility] Comment on above: Performed By: #### F ERR, LIPID, PSA, FE, CMP, GFR, ADIFF, CBC, ANEU #### [place] [address] #### FOL, B12 #### [address] [address] Eosinophil, Absolute 0.3 10 3/mcL Normal 0.0-0.4 [facility] Comment on above: Performed By: #### F ERR, LIPID, PSA, FE, CMP, GFR, ADIFF, CBC, ANEU #### [place] [address] #### FOL, B12 #### [address] [address] Eosinophils/100 WBC (Bld) 5.4 % Normal 0.0-7.0 [facility] Comment on above: Performed By: #### F ERR, LIPID, PSA, FE, CMP, GFR, ADIFF, CBC, ANEU #### [place] [address] #### FOL, B12 #### [address] [address] Lymphocyte, Absolute 1.6 10 3/mcL Normal 0.8-3.9 [facility] Comment on above: Performed By: #### F ERR, LIPID, PSA, FE, CMP, GFR, ADIFF, CBC, ANEU #### [place] [address] #### FOL, B12 #### [address] [address] Lymphocytes/100 WBC (Bld) 28.6 % Normal 10.0-50.0 [facility] Comment on above: Performed By: #### F ERR, LIPID, PSA, FE, CMP, GFR, ADIFF, CBC, ANEU #### [address] [address] #### FOL, B12 #### [address] [address] Monocyte, Absolute 0.4 10 3/mcL Normal 0.2-1.0 [facility] Comment on above: Performed By: #### F ERR, LIPID, PSA, FE, CMP, GFR, ADIFF, CBC, ANEU #### [place] [address] #### FOL, B12 #### [address] [address] Monocytes/100 WBC (Bld) 7.5 % Normal 1.7-13.0 [facility] Comment on above: Performed By: #### F ERR, LIPID, PSA, FE, CMP, GFR, ADIFF, CBC, ANEU #### [place] [address] #### FOL, B12 #### [address] [address] Neutrophils/100 WBC (Bld) 57.5 % Normal 37.0-80.0 [facility] Comment on above: Performed By: #### F ERR, LIPID, PSA, FE, CMP, GFR, ADIFF, CBC, ANEU #### [place] [address] #### FOL, B12 #### [address] [address] .GFRon 01-21-2024 GFR 110 ml/min/1.73sqm Normal [facility] Comment on above: Result Comment: GFR Population mean for , Non- Americans Ages 20-29 = 116 mL/min/1.73 sq.m. Ages 30-39 = 107 mL/min/1.73 sq.m. Ages 40-49 = 99 mL/min/1.73 sq.m. Ages 50-59 = 93 mL/min/1.73 sq.m. Ages 60-69 = 85 mL/min/1.73 sq.m. Ages 70+ = 75 mL/min/1.73 sq.m. Chronic Kidney Disease: Less than 60 mL/min/1.73 square meters End Stage Renal Disease: Less than 15 mL/min/1.73 square meters Performed By: #### F ERR, CBC, FE, ANEU, ADIFF #### [address] [address] GFR Non- 91 ml/min/1.73sqm Normal [facility] Comment on above: Result Comment: GFR Population mean for , Non- Americans Ages 20-29 = 116 mL/min/1.73 sq.m. Ages 30-39 = 107 mL/min/1.73 sq.m. Ages 40-49 = 99 mL/min/1.73 sq.m. Ages 50-59 = 93 mL/min/1.73 sq.m. Ages 60-69 = 85 mL/min/1.73 sq.m. Ages 70+ = 75 mL/min/1.73 sq.m. Chronic Kidney Disease: Less than 60 mL/min/1.73 square meters End Stage Renal Disease: Less than 15 mL/min/1.73 square meters Performed By: #### F ERR, CBC, FE, ANEU, ADIFF #### [address] [address] .NEUABSon 01-21-2024 Neutrophil, Absolute 3.2 10 3/mcL Normal 2.9-6.2 [facility] Comment on above: Performed By: #### F ERR, LIPID, PSA, FE, CMP, GFR, ADIFF, CBC, ANEU #### [address] [address] #### FOL, B12 #### [address] [address] B12on 01-21-2024 Cobalamin (Vitamin B12) [Mass/Vol] 275 pg/mL Normal 211-911 [facility] Comment on above: Performed By: #### F ERR, CBC, FE, ANEU, ADIFF #### [address] [address] CBCon 01-21-2024 Erythrocyte distribution width (RBC) [Ratio] 14.7 % High 11.5-14.5 [facility] Comment on above: Performed By: #### F ERR, LIPID, PSA, FE, CMP, GFR, ADIFF, CBC, ANEU #### [place] [address] #### FOL, B12 #### [place] [address] Hematocrit (Bld) [Volume fraction] 36.6 % Low 42.0-52.0 [facility] Comment on above: Performed By: #### F ERR, LIPID, PSA, FE, CMP, GFR, ADIFF, CBC, ANEU #### [place] [address] #### FOL, B12 #### [place] [address] Hgb 12.4 G/dL Low 14.0-18.0 [facility] Comment on above: Performed By: #### F ERR, LIPID, PSA, FE, CMP, GFR, ADIFF, CBC, ANEU #### [place] [address] #### FOL, B12 #### [place] [address] MCH (RBC) [Entitic mass] 32.5 pg High 27.0-31.2 [facility] Comment on above: Performed By: #### F ERR, LIPID, PSA, FE, CMP, GFR, ADIFF, CBC, ANEU #### [place] [address] #### FOL, B12 #### [place] [address] MCHC 33.8 G/dL Normal 31.8-35.4 [facility] Comment on above: Performed By: #### F ERR, LIPID, PSA, FE, CMP, GFR, ADIFF, CBC, ANEU #### [place] [address] #### FOL, B12 #### [place] [address] MCV (RBC) [Entitic vol] 96.3 fL High 80.0-94.0 [facility] Comment on above: Performed By: #### F ERR, LIPID, PSA, FE, CMP, GFR, ADIFF, CBC, ANEU #### [place] [address] #### FOL, B12 #### [place] [address] Platelet 186 10 3/mcL Normal 130-400 [facility] Comment on above: Performed By: #### F ERR, LIPID, PSA, FE, CMP, GFR, ADIFF, CBC, ANEU #### [place] [address] #### FOL, B12 #### [place] [address] Platelet mean volume (Bld) [Entitic vol] 7.9 fL Normal 7.4-10.4 [facility] Comment on above: Performed By: #### F ERR, LIPID, PSA, FE, CMP, GFR, ADIFF, CBC, ANEU #### [place] [address] #### FOL, B12 #### [place] [address] RBC 3.81 10 6/mcL Low 4.04-6.13 [facility] Comment on above: Performed By: #### F ERR, LIPID, PSA, FE, CMP, GFR, ADIFF, CBC, ANEU #### [place] [address] #### FOL, B12 #### [place] [address] WBC 5.6 10 3/mcL Normal 4.6-10.8 [facility] Comment on above: Performed By: #### F ERR, LIPID, PSA, FE, CMP, GFR, ADIFF, CBC, ANEU #### [address] [address] #### FOL, B12 #### [facility] [address] [place] [address] CMPon 01-21-2024 Albumin Level 3.9 G/dL Normal 3.4-4.8 [facility] Comment on above: Performed By: #### F ERR, CBC, FE, ANEU, ADIFF #### [address] [address] Albumin/Globulin [Mass ratio] 1.6 {ratio} Normal 1.1-2.5 [facility] Comment on above: Performed By: #### F ERR, CBC, FE, ANEU, ADIFF #### [place] [id number] ALP [Catalytic activity/Vol] 66 U/L Normal 40-135 [facility] Comment on above: Performed By: #### F ERR, CBC, FE, ANEU, ADIFF #### [address] [address] ALT [Catalytic activity/Vol] 16 U/L Normal 16-63 [facility] Comment on above: Performed By: #### F ERR, CBC, FE, ANEU, ADIFF #### [address] [address] AST [Catalytic activity/Vol] 10 U/L Normal 10-40 [facility] Comment on above: Performed By: #### F ERR, CBC, FE, ANEU, ADIFF #### [address] [address] Bili Total 0.7 mg/dL Normal 0.2-1.0 [facility] Comment on above: Result Comment: Use of this assay is not recommended for patients undergoing treatment with eltrombopag due to the potential for falsely elevated results. Performed By: #### F ERR, CBC, FE, ANEU, ADIFF #### [place] [address] BUN/Creatinine Ratio 15 ratio Normal 7-27 [facility] Comment on above: Performed By: #### F ERR, CBC, FE, ANEU, ADIFF #### [place] [id number] Calcium [Mass/Vol] 9.1 mg/dL Normal 8.4-10.2 [facility] Comment on above: Performed By: #### F ERR, CBC, FE, ANEU, ADIFF #### [place] [address] Chloride [Moles/Vol] 96 mmol/L Low 98-107 [facility] Comment on above: Performed By: #### F ERR, CBC, FE, ANEU, ADIFF #### [place] [address] CO2 [Moles/Vol] 30 mmol/L Normal 23-31 [facility] Comment on above: Performed By: #### F ERR, CBC, FE, ANEU, ADIFF #### [place] [address] Creatinine [Mass/Vol] 0.81 mg/dL Normal 0.70-1.30 [facility] Comment on above: Result Comment: Test ing performed on Siemens Dimension EXL analyzer using a modified kinetic Claudine technique. Performed By: #### F ERR, CBC, FE, ANEU, ADIFF #### [place] [address] Electrolyte Balance 5.0 mEq/L Normal 4.0-15.0 [facility] Comment on above: Performed By: #### F ERR, CBC, FE, ANEU, ADIFF #### [place] [address] Globulin 2.4 G/dL Normal [facility] Comment on above: Performed By: #### F ERR, CBC, FE, ANEU, ADIFF #### [place] [address] Glucose [Mass/Vol] 119 mg/dL High 83-110 [facility] Comment on above: Performed By: #### F ERR, CBC, FE, ANEU, ADIFF #### [place] [address] Potassium [Moles/Vol] 4.3 mmol/L Normal 3.5-5.1 [facility] Comment on above: Performed By: #### F ERR, CBC, FE, ANEU, ADIFF #### [place] [address] Sodium [Moles/Vol] 131 mmol/L Low 136-145 [facility] Comment on above: Performed By: #### F ERR, CBC, FE, ANEU, ADIFF #### [place] [address] Total Protein 6.3 G/dL Low 6.4-8.2 [facility] Comment on above: Performed By: #### F ERR, CBC, FE, ANEU, ADIFF #### [place] [address] Urea nitrogen [Mass/Vol] 12 mg/dL Normal 7-18 [facility] Comment on above: Performed By: #### F ERR, CBC, FE, ANEU, ADIFF #### [address] [address] FEon 01-21-2024 Iron [Mass/Vol] 55 ug/dL Low 65-175 [facility] Comment on above: Performed By: #### F ERR, CBC, FE, ANEU, ADIFF #### [address] [address] Tres 01-21-2024 Ferritin [Mass/Vol] 49.0 ng/mL Normal 26.0-388.0 [facility] Comment on above: Performed By: #### F ERR, LIPID, PSA, FE, CMP, GFR, ADIFF, CBC, ANEU #### [address] [address] #### FOL, B12 #### [address] [address] FOLon 01-21-2024 Folate 21.89 ng/mL Normal 5.38-24.00 [facility] Comment on above: Performed By: #### F ERR, CBC, FE, ANEU, ADIFF #### [facility] [address] [place], [place] [address] LABORATORYOrdered By: SYSTEM SYSTEM on 01-21-2024 Albumin BCP dye [Mass/Vol] 3.9 G/dL Normal 3.4 - 4.8 G/dL AO ADM SS Albumin/Globulin [Mass ratio] 1.6 {ratio} Normal 1.1 - 2.5 ratio AO ADM SS ALP [Catalytic activity/Vol] 66 U/L Normal 40 - 135 U/L AO ADM SS ALT With P-5'-P [Catalytic activity/Vol] 16 U/L Normal 16 - 63 U/L AO ADM SS AST With P-5'-P [Catalytic activity/Vol] 10 U/L Normal 10 - 40 U/L AO ADM SS Basophils (Bld) [#/Vol] 0.1 103/mcL Normal 0.0 - 0.2 10^3/mcL AO Workflow SS Basophils/100 WBC (Bld) 1.0 % Normal 0.0 - 2.5 % AO Workflow SS Bilirubin [Mass/Vol] 0.7 mg/dL Normal 0.2 - 1 .0 mg/dL AO ADM SS Comment on above: Interpretive Data: U se of this assay is not recommended for patients undergoing treatment with eltrombopag due to the potential for falsely elevated results. Calcium [Mass/Vol] 9.1 mg/dL Normal 8.4 - 10. 2 mg/dL AO ADM SS Chloride [Moles/Vol] 96 mmol/L Low 98 - 10 7 mmol/L AO ADM SS CO2 [Moles/Vol] 30 mmol/L Normal 23 - 31 mmol/L AO ADM SS Cobalamin (Vitamin B12) [Mass/Vol] 275 pg/mL Normal 211 - 911 pg/mL AH ADM SS Creatinine [Mass/Vol] 0.81 mg/dL Normal 0.70 - 1.30 mg/dL AO ADM SS Comment on above: Interpretive Data: T esting performed on Siemens Dimension EXL analyzer using a modified kinetic Claudine technique. Electrolyte Balance 5.0 mEq/L Normal 4.0 - 15 .0 mEq/L AO ADM SS Eosinophil, Absolute 0.3 103/mcL Normal 0.0 - 0 .4 10^3/mcL AO Workflow SS Eosinophils/100 WBC (Bld) 5.4 % Normal 0.0 - 7.0 % AO Workflow SS Erythrocyte distribution width (RBC) [Ratio] 14.7 % High 11.5 - 14.5 % AO Workflow SS Ferritin [Mass/Vol] 49.0 ng/mL Normal 26.0 - 3 88.0 ng/mL AO ADM SS Folate [Mass/Vol] 21.89 ng/mL Normal 5.38 - 24. 00 ng/mL AH ADM SS GFR/1.73 sq M.predicted among blacks MDRD (S/P/Bld) [Vol rate/Area] 110 ml/min/1.73sqm Invalid Interpretation Code AO Chemistry S Comment on above: Interpretive Data: GFR Population mean for , Non- Americans Ages 20-29 = 116 mL/min/1.73 sq.m. Ages 30-39 = 107 mL/min/1.73 sq.m. Ages 40-49 = 99 mL/min/1.73 sq.m. Ages 50-59 = 93 mL/min/1.73 sq.m. Ages 60-69 = 85 mL/min/1.73 sq.m. Ages 70+ = 75 mL/min/1.73 sq.m. Chronic Kidney Disease: Less than 60 mL/min/1.73 square meters End Stage Renal Disease: Less than 15 mL/min/1.73 square meters GFR/1.73 sq M.predicted among non-blacks MDRD (S/P/Bld) [Vol rate/Area] 91 ml/min/1.73sqm Invalid Interpretation Code AO Chemistry S Comment on above: Interpretive Data: GFR Population mean for , Non- Americans Ages 20-29 = 116 mL/min/1.73 sq.m. Ages 30-39 = 107 mL/min/1.73 sq.m. Ages 40-49 = 99 mL/min/1.73 sq.m. Ages 50-59 = 93 mL/min/1.73 sq.m. Ages 60-69 = 85 mL/min/1.73 sq.m. Ages 70+ = 75 mL/min/1.73 sq.m. Chronic Kidney Disease: Less than 60 mL/min/1.73 square meters End Stage Renal Disease: Less than 15 mL/min/1.73 square meters Globulin 2.4 G/dL Invalid Interpretation Code AO ADM SS Glucose [Mass/Vol] 119 mg/dL High 83 - 110 mg/dL AO ADM SS Hematocrit (Bld) [Volume fraction] 36.6 % Low 42.0 - 52.0 % AO Workflow SS Hemoglobin (Bld) [Mass/Vol] 12.4 G/dL Low 14.0 - 18.0 G/dL AO Workflow SS Iron [Mass/Vol] 55 ug/dL Low 65 - 175 mcg/dL AO ADM SS Lymphocytes (Bld) [#/Vol] 1.6 103/mcL Normal 0.8 - 3.9 10^3/mcL AO Workflow SS Lymphocytes/100 WBC (Bld) 28.6 % Normal 10.0 - 50.0 % AO Workflow SS MCH (RBC) [Entitic mass] 32.5 pg High 27.0 - 31.2 pg AO Workflow SS MCHC 33.8 G/dL Normal 31.8 - 35.4 G/dL AO Workflow SS MCV (RBC) [Entitic vol] 96.3 fL High 80.0 - 94.0 fL AO Workflow SS Monocytes (Bld) [#/Vol] 0.4 103/mcL Normal 0.2 - 1.0 10^3/mcL AO Workflow SS Monocytes/100 WBC (Bld) 7.5 % Normal 1.7 - 13.0 % AO Workflow SS Neutrophils (Bld) [#/Vol] 3.2 103/mcL Normal 2.9 - 6.2 10^3/mcL AO Workflow SS Neutrophils/100 WBC (Bld) 57.5 % Normal 37.0 - 80.0 % AO Workflow SS Platelet mean volume (Bld) [Entitic vol] 7.9 fL Normal 7.4 - 10.4 fL AO Workflow SS Platelets (Bld) [#/Vol] 186 103/mcL Normal 130 - 400 10^3/mcL AO Workflow SS Potassium [Moles/Vol] 4.3 mmol/L Normal 3.5 - 5.1 mmol/L AO ADM SS Prostate specific Ag [Mass/Vol] 0.44 ng/mL Normal 0.00 - 4.00 ng/mL AO ADM SS Protein [Mass/Vol] 6.3 G/dL Low 6.4 - 8.2 G/dL AO ADM SS RBC (Bld) [#/Vol] 3.81 106/mcL Low 4.04 - 6.1 3 10^6/mcL AO Workflow SS Sodium [Moles/Vol] 131 mmol/L Low 136 - 145 mmol/L AO ADM SS Urea nitrogen [Mass/Vol] 12 mg/dL Normal 7 - 18 mg/dL AO ADM SS Urea nitrogen/Creatinine [Mass ratio] 15 ratio Normal 7 - 27 ratio AO ADM SS WBC (Bld) [#/Vol] 5.6 103/mcL Normal 4.6 - 10.8 10^3/mcL AO Workflow SS LABORATORYOrdered By: Valentin Bee on 01-21-2024 Cholesterol [Mass/Vol] 124 mg/dL Normal 0 - 2 00 mg/dL AO ADM SS Comment on above: Interpretive Data: C holesterol Reference Interval: Less than 200 Desirable 200-239 Borderline high risk 240 and above High risk Cholesterol in HDL [Mass/Vol] 68 mg/dL High 40 - 60 mg/dL AO ADM SS Cholesterol in LDL [Mass/Vol] 44 mg/dL Normal 0 - 130 mg/dL AO ADM SS Triglyceride [Mass/Vol] 60 mg/dL Normal 0 - 150 mg/dL AO ADM SS Comment on above: Interpretive Data: T riglyceride Reference Interval: Less than 150 Normal 150-199 Borderline high risk 200-499 High risk 500 or higher Very high risk LIPIDon 01-21-2024 Cholesterol [Mass/Vol] 124 mg/dL Normal 0-200 [facility] Comment on above: Result Comment: Chol esterol Reference Interval: Less than 200 Desirable 200-239 Borderline high risk 240 and above High risk Performed By: #### F ERR, CBC, FE, ANEU, ADIFF #### [address] [address] Cholesterol in HDL [Mass/Vol] 68 mg/dL High 40-60 [facility] Comment on above: Performed By: #### F ERR, CBC, FE, ANEU, ADIFF #### [address] [address] Cholesterol in LDL [Mass/Vol] 44 mg/dL Normal 0-130 [facility] Comment on above: Performed By: #### F ERR, CBC, FE, ANEU, ADIFF #### [address] [address] Triglyceride [Mass/Vol] 60 mg/dL Normal 0-150 [facility] Comment on above: Result Comment: Trig lyceride Reference Interval: Less than 150 Normal 150-199 Borderline high risk 200-499 High risk 500 or higher Very high risk Performed By: #### F ERR, CBC, FE, ANEU, ADIFF #### [address] [address] PSAon 01-21-2024 Prostate Specific Antigen 0.44 ng/mL Normal 0.00-4.00 [facility] Comment on above: Performed By: #### F ERR, CBC, FE, ANEU, ADIFF #### [address] [address] .Auto Diffon 01-10-2024 Basophil, Absolute 0.0 10 3/mcL Normal 0.0-0.2 [facility] Comment on above: Performed By: #### F ERR, CBC, FE, ANEU, ADIFF #### [address] [address] Basophils/100 WBC (Bld) 0.7 % Normal 0.0-2.5 [facility] Comment on above: Performed By: #### F ERR, CBC, FE, ANEU, ADIFF #### [address] [address] Eosinophil, Absolute 0.3 10 3/mcL Normal 0.0-0.4 [facility] Comment on above: Performed By: #### F ERR, CBC, FE, ANEU, ADIFF #### [address] [address] Eosinophils/100 WBC (Bld) 4.6 % Normal 0.0-7.0 [facility] Comment on above: Performed By: #### F ERR, CBC, FE, ANEU, ADIFF #### [address] [address] Lymphocyte, Absolute 1.0 10 3/mcL Normal 0.8-3.9 [facility] Comment on above: Performed By: #### F ERR, CBC, FE, ANEU, ADIFF #### [address] [address] Lymphocytes/100 WBC (Bld) 17.4 % Normal 10.0-50.0 [facility] Comment on above: Performed By: #### F ERR, CBC, FE, ANEU, ADIFF #### [address] [address] Monocyte, Absolute 0.4 10 3/mcL Normal 0.2-1.0 [facility] Comment on above: Performed By: #### F ERR, CBC, FE, ANEU, ADIFF #### [address] [address] Monocytes/100 WBC (Bld) 8.0 % Normal 1.7-13.0 [facility] Comment on above: Performed By: #### F ERR, CBC, FE, ANEU, ADIFF #### [address] [address] Neutrophils/100 WBC (Bld) 69.3 % Normal 37.0-80.0 [facility] Comment on above: Performed By: #### F ERR, CBC, FE, ANEU, ADIFF #### [address] [address] .GFRon 01-10-2024 GFR 107 ml/min/1.73sqm Normal [facility] Comment on above: Result Comment: GFR Population mean for , Non- Americans Ages 20-29 = 116 mL/min/1.73 sq.m. Ages 30-39 = 107 mL/min/1.73 sq.m. Ages 40-49 = 99 mL/min/1.73 sq.m. Ages 50-59 = 93 mL/min/1.73 sq.m. Ages 60-69 = 85 mL/min/1.73 sq.m. Ages 70+ = 75 mL/min/1.73 sq.m. Chronic Kidney Disease: Less than 60 mL/min/1.73 square meters End Stage Renal Disease: Less than 15 mL/min/1.73 square meters Performed By: #### F ERR, CBC, FE, ANEU, ADIFF #### [address] [address] GFR Non- 88 ml/min/1.73sqm Normal [facility] Comment on above: Result Comment: GFR Population mean for , Non- Americans Ages 20-29 = 116 mL/min/1.73 sq.m. Ages 30-39 = 107 mL/min/1.73 sq.m. Ages 40-49 = 99 mL/min/1.73 sq.m. Ages 50-59 = 93 mL/min/1.73 sq.m. Ages 60-69 = 85 mL/min/1.73 sq.m. Ages 70+ = 75 mL/min/1.73 sq.m. Chronic Kidney Disease: Less than 60 mL/min/1.73 square meters End Stage Renal Disease: Less than 15 mL/min/1.73 square meters Performed By: #### F ERR, CBC, FE, ANEU, ADIFF #### [address] [address] .NEUABSon 01-10-2024 Neutrophil, Absolute 3.9 10 3/mcL Normal 2.9-6.2 [facility] Comment on above: Performed By: #### F ERR, CBC, FE, ANEU, ADIFF #### [address] [address] CBCon 01-10-2024 Erythrocyte distribution width (RBC) [Ratio] 15.1 % High 11.5-14.5 [facility] Comment on above: Performed By: #### F ERR, CBC, FE, ANEU, ADIFF #### [address] [address] Hematocrit (Bld) [Volume fraction] 35.7 % Low 42.0-52.0 [facility] Comment on above: Performed By: #### F ERR, CBC, FE, ANEU, ADIFF #### [address] [address] Hgb 12.3 G/dL Low 14.0-18.0 [facility] Comment on above: Performed By: #### F ERR, CBC, FE, ANEU, ADIFF #### [address] [address] MCH (RBC) [Entitic mass] 33.1 pg High 27.0-31.2 [facility] Comment on above: Performed By: #### F ERR, CBC, FE, ANEU, ADIFF #### [place] [address] MCHC 34.4 G/dL Normal 31.8-35.4 [facility] Comment on above: Performed By: #### F ERR, CBC, FE, ANEU, ADIFF #### [place] [address] MCV (RBC) [Entitic vol] 96.1 fL High 80.0-94.0 [facility] Comment on above: Performed By: #### F ERR, CBC, FE, ANEU, ADIFF #### [place] [address] Platelet 168 10 3/mcL Normal 130-400 [facility] Comment on above: Performed By: #### F ERR, CBC, FE, ANEU, ADIFF #### [place] [address] Platelet mean volume (Bld) [Entitic vol] 8.4 fL Normal 7.4-10.4 [facility] Comment on above: Performed By: #### F ERR, CBC, FE, ANEU, ADIFF #### [place] [address] RBC 3.71 10 6/mcL Low 4.04-6.13 [facility] Comment on above: Performed By: #### F ERR, CBC, FE, ANEU, ADIFF #### [place] [address] WBC 5.6 10 3/mcL Normal 4.6-10.8 [facility] Comment on above: Performed By: #### F ERR, CBC, FE, ANEU, ADIFF #### [address] [address] CMPon 01-10-2024 Albumin Level 3.7 G/dL Normal 3.4-4.8 [facility] Comment on above: Performed By: #### F ERR, CBC, FE, ANEU, ADIFF #### [address] [address] Albumin/Globulin [Mass ratio] 1.8 {ratio} Normal 1.1-2.5 [facility] Comment on above: Performed By: #### F ERR, CBC, FE, ANEU, ADIFF #### [place] [id number] ALP [Catalytic activity/Vol] 57 U/L Normal 40-135 [facility] Comment on above: Performed By: #### F ERR, CBC, FE, ANEU, ADIFF #### [place] [id number] ALT [Catalytic activity/Vol] 14 U/L Low 16-63 [facility] Comment on above: Performed By: #### F ERR, CBC, FE, ANEU, ADIFF #### [place] [id number] AST [Catalytic activity/Vol] 14 U/L Normal 10-40 [facility] Comment on above: Performed By: #### F ERR, CBC, FE, ANEU, ADIFF #### [address] [address] Bili Total 0.7 mg/dL Normal 0.2-1.0 [facility] Comment on above: Result Comment: Use of this assay is not recommended for patients undergoing treatment with eltrombopag due to the potential for falsely elevated results. Performed By: #### F ERR, CBC, FE, ANEU, ADIFF #### [place] [id number] BUN/Creatinine Ratio 17 ratio Normal 7-27 [facility] Comment on above: Performed By: #### F ERR, CBC, FE, ANEU, ADIFF #### [place] [id number] Calcium [Mass/Vol] 9.2 mg/dL Normal 8.4-10.2 [facility] Comment on above: Performed By: #### F ERR, CBC, FE, ANEU, ADIFF #### [address] [address] Chloride [Moles/Vol] 95 mmol/L Low 98-107 [facility] Comment on above: Performed By: #### F ERR, CBC, FE, ANEU, ADIFF #### [address] [address] CO2 [Moles/Vol] 31 mmol/L Normal 23-31 [facility] Comment on above: Performed By: #### F ERR, CBC, FE, ANEU, ADIFF #### [address] [address] Creatinine [Mass/Vol] 0.83 mg/dL Normal 0.70-1.30 [facility] Comment on above: Result Comment: Test ing performed on Siemens Dimension EXL analyzer using a modified kinetic Claudine technique. Performed By: #### F ERR, CBC, FE, ANEU, ADIFF #### [address] [address] Electrolyte Balance 6.0 mEq/L Normal 4.0-15.0 [facility] Comment on above: Performed By: #### F ERR, CBC, FE, ANEU, ADIFF #### [address] [address] Globulin 2.0 G/dL Normal [facility] Comment on above: Performed By: #### F ERR, CBC, FE, ANEU, ADIFF #### [address] [address] Glucose [Mass/Vol] 120 mg/dL High 83-110 [facility] Comment on above: Performed By: #### F ERR, CBC, FE, ANEU, ADIFF #### [address] [address] Potassium [Moles/Vol] 4.6 mmol/L Normal 3.5-5.1 [facility] Comment on above: Performed By: #### F ERR, CBC, FE, ANEU, ADIFF #### [address] [address] Sodium [Moles/Vol] 132 mmol/L Low 136-145 [facility] Comment on above: Performed By: #### F ERR, CBC, FE, ANEU, ADIFF #### [place] [id number] Total Protein 5.7 G/dL Low 6.4-8.2 [facility] Comment on above: Performed By: #### F ERR, CBC, FE, ANEU, ADIFF #### [place] [address] Urea nitrogen [Mass/Vol] 14 mg/dL Normal 7-18 [facility] Comment on above: Performed By: #### F ERR, CBC, FE, ANEU, ADIFF #### [place] [address] LABORATORYOrdered By: SYSTEM SYSTEM on 01-10-2024 Albumin BCP dye [Mass/Vol] 3.7 G/dL Normal 3.4 - 4.8 G/dL AO ADM SS Albumin/Globulin [Mass ratio] 1.8 {ratio} Normal 1.1 - 2.5 ratio AO ADM SS ALP [Catalytic activity/Vol] 57 U/L Normal 40 - 135 U/L AO ADM SS ALT With P-5'-P [Catalytic activity/Vol] 14 U/L Low 16 - 63 U/L AO ADM SS AST With P-5'-P [Catalytic activity/Vol] 14 U/L Normal 10 - 40 U/L AO ADM SS Basophils (Bld) [#/Vol] 0.0 103/mcL Normal 0.0 - 0.2 10^3/mcL AO Workflow SS Basophils/100 WBC (Bld) 0.7 % Normal 0.0 - 2.5 % AO Workflow SS Bilirubin [Mass/Vol] 0.7 mg/dL Normal 0.2 - 1 .0 mg/dL AO ADM SS Comment on above: Interpretive Data: U se of this assay is not recommended for patients undergoing treatment with eltrombopag due to the potential for falsely elevated results. Calcium [Mass/Vol] 9.2 mg/dL Normal 8.4 - 10. 2 mg/dL AO ADM SS Chloride [Moles/Vol] 95 mmol/L Low 98 - 10 7 mmol/L AO ADM SS CO2 [Moles/Vol] 31 mmol/L Normal 23 - 31 mmol/L AO ADM SS Creatinine [Mass/Vol] 0.83 mg/dL Normal 0.70 - 1.30 mg/dL AO ADM SS Comment on above: Interpretive Data: T esting performed on Siemens Dimension EXL analyzer using a modified kinetic Claudine technique. Electrolyte Balance 6.0 mEq/L Normal 4.0 - 15 .0 mEq/L AO ADM SS Eosinophil, Absolute 0.3 103/mcL Normal 0.0 - 0 .4 10^3/mcL AO Workflow SS Eosinophils/100 WBC (Bld) 4.6 % Normal 0.0 - 7.0 % AO Workflow SS Erythrocyte distribution width (RBC) [Ratio] 15.1 % High 11.5 - 14.5 % AO Workflow SS GFR/1.73 sq M.predicted among blacks MDRD (S/P/Bld) [Vol rate/Area] 107 ml/min/1.73sqm Invalid Interpretation Code AO Chemistry S Comment on above: Interpretive Data: GFR Population mean for , Non- Americans Ages 20-29 = 116 mL/min/1.73 sq.m. Ages 30-39 = 107 mL/min/1.73 sq.m. Ages 40-49 = 99 mL/min/1.73 sq.m. Ages 50-59 = 93 mL/min/1.73 sq.m. Ages 60-69 = 85 mL/min/1.73 sq.m. Ages 70+ = 75 mL/min/1.73 sq.m. Chronic Kidney Disease: Less than 60 mL/min/1.73 square meters End Stage Renal Disease: Less than 15 mL/min/1.73 square meters GFR/1.73 sq M.predicted among non-blacks MDRD (S/P/Bld) [Vol rate/Area] 88 ml/min/1.73sqm Invalid Interpretation Code AO Chemistry S Comment on above: Interpretive Data: GFR Population mean for , Non- Americans Ages 20-29 = 116 mL/min/1.73 sq.m. Ages 30-39 = 107 mL/min/1.73 sq.m. Ages 40-49 = 99 mL/min/1.73 sq.m. Ages 50-59 = 93 mL/min/1.73 sq.m. Ages 60-69 = 85 mL/min/1.73 sq.m. Ages 70+ = 75 mL/min/1.73 sq.m. Chronic Kidney Disease: Less than 60 mL/min/1.73 square meters End Stage Renal Disease: Less than 15 mL/min/1.73 square meters Globulin 2.0 G/dL Invalid Interpretation Code AO ADM SS Glucose [Mass/Vol] 120 mg/dL High 83 - 110 mg/dL AO ADM SS Hematocrit (Bld) [Volume fraction] 35.7 % Low 42.0 - 52.0 % AO Workflow SS Hemoglobin (Bld) [Mass/Vol] 12.3 G/dL Low 14.0 - 18.0 G/dL AO Workflow SS Lymphocytes (Bld) [#/Vol] 1.0 103/mcL Normal 0.8 - 3.9 10^3/mcL AO Workflow SS Lymphocytes/100 WBC (Bld) 17.4 % Normal 10.0 - 50.0 % AO Workflow SS MCH (RBC) [Entitic mass] 33.1 pg High 27.0 - 31.2 pg AO Workflow SS MCHC 34.4 G/dL Normal 31.8 - 35.4 G/dL AO Workflow SS MCV (RBC) [Entitic vol] 96.1 fL High 80.0 - 94.0 fL AO Workflow SS Monocytes (Bld) [#/Vol] 0.4 103/mcL Normal 0.2 - 1.0 10^3/mcL AO Workflow SS Monocytes/100 WBC (Bld) 8.0 % Normal 1.7 - 13.0 % AO Workflow SS Neutrophils (Bld) [#/Vol] 3.9 103/mcL Normal 2.9 - 6.2 10^3/mcL AO Workflow SS Neutrophils/100 WBC (Bld) 69.3 % Normal 37.0 - 80.0 % AO Workflow SS Platelet mean volume (Bld) [Entitic vol] 8.4 fL Normal 7.4 - 10.4 fL AO Workflow SS Platelets (Bld) [#/Vol] 168 103/mcL Normal 130 - 400 10^3/mcL AO Workflow SS Potassium [Moles/Vol] 4.6 mmol/L Normal 3.5 - 5.1 mmol/L AO ADM SS Protein [Mass/Vol] 5.7 G/dL Low 6.4 - 8.2 G/dL AO ADM SS RBC (Bld) [#/Vol] 3.71 106/mcL Low 4.04 - 6.1 3 10^6/mcL AO Workflow SS Sodium [Moles/Vol] 132 mmol/L Low 136 - 145 mmol/L AO ADM SS Urea nitrogen [Mass/Vol] 14 mg/dL Normal 7 - 18 mg/dL AO ADM SS Urea nitrogen/Creatinine [Mass ratio] 17 ratio Normal 7 - 27 ratio AO ADM SS WBC (Bld) [#/Vol] 5.6 103/mcL Normal 4.6 - 10.8 10^3/mcL AO Workflow SS LABORATORYOrdered By: Dolores Bal on 01-10-2024 Cholesterol [Mass/Vol] 127 mg/dL Normal 0 - 2 00 mg/dL AO ADM SS Comment on above: Interpretive Data: C holesterol Reference Interval: Less than 200 Desirable 200-239 Borderline high risk 240 and above High risk Cholesterol in HDL [Mass/Vol] 69 mg/dL High 40 - 60 mg/dL AO ADM SS Cholesterol in LDL [Mass/Vol] 46 mg/dL Normal 0 - 130 mg/dL AO ADM SS Triglyceride [Mass/Vol] 61 mg/dL Normal 0 - 150 mg/dL AO ADM SS Comment on above: Interpretive Data: T riglyceride Reference Interval: Less than 150 Normal 150-199 Borderline high risk 200-499 High risk 500 or higher Very high risk LIPIDon 01-10-2024 Cholesterol [Mass/Vol] 127 mg/dL Normal 0-200 [facility] Comment on above: Result Comment: Chol esterol Reference Interval: Less than 200 Desirable 200-239 Borderline high risk 240 and above High risk Performed By: #### F ERR, CBC, FE, ANEU, ADIFF #### [id number] [place], [place] [address] Cholesterol in HDL [Mass/Vol] 69 mg/dL High 40-60 [facility] Comment on above: Performed By: #### F ERR, CBC, FE, ANEU, ADIFF #### [facility] [address] [place], [place] [address] Cholesterol in LDL [Mass/Vol] 46 mg/dL Normal 0-130 [facility] Comment on above: Performed By: #### F ERR, CBC, FE, ANEU, ADIFF #### [address] [place], [place] [address] Triglyceride [Mass/Vol] 61 mg/dL Normal 0-150 A [facility] Comment on above: Result Comment: Trig lyceride Reference Interval: Less than 150 Normal 150-199 Borderline high risk 200-499 High risk 500 or higher Very high risk Performed By: #### F ERR, CBC, FE, ANEU, ADIFF #### [address] [place], [place] [address] LABORATORYOrdered By: Dolores Bal on 10-09-2023 Albumin DL <= 20 mg/L (U) [Mass/Vol] 3296 mcg/dL Invalid Interpretation Code AO ADM SS Albumin/Creatinine DL <= 20 mg/L (U) [Mass ratio] 43 mcg/mg High 0 - 30 mcg/mg AO ADM SS Creatinine (U) [Mass/Vol] 76.6 mg/dL Normal 39.0 - 259.0 mg/dL AO ADM SS MALBRon 10-09-2023 U Creatinine 76.6 mg/dL Normal 39.0-259.0 [facility] ([place]) Comment on above: Performed By: #### M ALBR ####[address] [place], [place] [address] U Microalb 3296 mcg/dL Normal [facility] ([place]) Comment on above: Performed By: #### M ALBR ####[address] [place], [place] [address] U Ratio Alb/Cre 43 mcg/mg High 0-30 [facility] ([place]) Comment on above: Performed By: #### M ALBR ####[address] [place], [place] [address] XR WRIST MINIMUM 3 VIEWS LEF Ton 09-02-2023 XR WRIST MINIMUM 3 VIEWS LEFT ORIGINAL EXAMINATION: XR left wrist three views 08/30/2023 12:39 pm COMPARISON: None HISTORY: ORDERING SYSTEM PROVIDED HISTORY: Reason for Exam: persistent left wrist pain without trauma, rule out fracture given risk of osteoporosis prior to steroid injection, FINDINGS: No acute fracture, dislocation, lytic process or periosteal reaction is seen in the visualized bones and joints. No erosive type of arthritis. There is a crescentic calcification lateral to the radial styloid that may be periligamentous calcification from remote trauma or other dystrophic calcification. 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 No other significant osteoarthritis at the wrist. IMPRESSION: No acute skeletal abnormality is seen. . Interpreted by: Alfonzo Overton MD Preliminary Report By: Alfonzo Overton MD Electronically signed By Alfonzo Overton MD Dictated Date: 09/02/2023 3:19:08 PM Prelim Date: 09/02/2023 3:21:09 PM Sign Date: 09/02/2023 3:21:09 PM Ordering Provider: MIRACLE Spangler [facility] ([place]) .Auto Diffon 08-30-2023 Basophil, Absolute 0.0 10 3/mcL Normal 0.0-0.2 [facility] ([place]) Comment on above: Performed By: #### A 1C, TSH, CBC, CMP, PSA, GFR, ADIFF, VIDH, ANEU #### [address] [address] Basophils/100 WBC (Bld) 0.6 % Normal 0.0-2.5 A [facility] ([place]) Comment on above: Performed By: #### A 1C, TSH, CBC, CMP, PSA, GFR, ADIFF, VIDH, ANEU #### [address] [address] Eosinophil, Absolute 0.3 10 3/mcL Normal 0.0-0.4 [facility] ([place]) Comment on above: Performed By: #### A 1C, TSH, CBC, CMP, PSA, GFR, ADIFF, VIDH, ANEU #### [address] [address] Eosinophils/100 WBC (Bld) 4.3 % Normal 0.0-7.0 [facility] ([place]) Comment on above: Performed By: #### A 1C, TSH, CBC, CMP, PSA, GFR, ADIFF, VIDH, ANEU #### [address] [address] Lymphocyte, Absolute 1.7 10 3/mcL Normal 0.8-3.9 [facility] ([place]) Comment on above: Performed By: #### A 1C, TSH, CBC, CMP, PSA, GFR, ADIFF, VIDH, ANEU #### [address] [address] Lymphocytes/100 WBC (Bld) 27.3 % Normal 10.0-50.0 [facility] ([place]) Comment on above: Performed By: #### A 1C, TSH, CBC, CMP, PSA, GFR, ADIFF, VIDH, ANEU #### [address] [address] Monocyte, Absolute 0.5 10 3/mcL Normal 0.2-1.0 [facility] ([place]) Comment on above: Performed By: #### A 1C, TSH, CBC, CMP, PSA, GFR, ADIFF, VIDH, ANEU #### [address] [address] Monocytes/100 WBC (Bld) 8.2 % Normal 1.7-13.0 A [facility] ([place]) Comment on above: Performed By: #### A 1C, TSH, CBC, CMP, PSA, GFR, ADIFF, VIDH, ANEU #### [address] [address] Neutrophils/100 WBC (Bld) 59.6 % Normal 37.0-80.0 [facility] ([place]) Comment on above: Performed By: #### A 1C, TSH, CBC, CMP, PSA, GFR, ADIFF, VIDH, ANEU #### [address] [address] .GFRon 08-30-2023 GFR 99 ml/min/1.73sqm Normal [facility] ([place]) Comment on above: Result Comment: GFR Population mean for , Non- Americans Ages 20-29 = 116 mL/min/1.73 sq.m. Ages 30-39 = 107 mL/min/1.73 sq.m. Ages 40-49 = 99 mL/min/1.73 sq.m. Ages 50-59 = 93 mL/min/1.73 sq.m. Ages 60-69 = 85 mL/min/1.73 sq.m. Ages 70+ = 75 mL/min/1.73 sq.m. Chronic Kidney Disease: Less than 60 mL/min/1.73 square meters End Stage Renal Disease: Less than 15 mL/min/1.73 square meters Performed By: #### A 1C, TSH, CBC, CMP, PSA, GFR, ADIFF, VIDH, ANEU ####[address] [place], [place] [address] GFR Non- 81 ml/min/1.73sqm Normal [facility] ([place]) Comment on above: Result Comment: GFR Population mean for , Non- Americans Ages 20-29 = 116 mL/min/1.73 sq.m. Ages 30-39 = 107 mL/min/1.73 sq.m. Ages 40-49 = 99 mL/min/1.73 sq.m. Ages 50-59 = 93 mL/min/1.73 sq.m. Ages 60-69 = 85 mL/min/1.73 sq.m. Ages 70+ = 75 mL/min/1.73 sq.m. Chronic Kidney Disease: Less than 60 mL/min/1.73 square meters End Stage Renal Disease: Less than 15 mL/min/1.73 square meters Performed By: #### A 1C, TSH, CBC, CMP, PSA, GFR, ADIFF, VIDH, ANEU ####[address] [place], [place] [address] .NEUABSon 08-30-2023 Neutrophil, Absolute 3.7 10 3/mcL Normal 2.9-6.2 [facility] ([place]) Comment on above: Performed By: #### A 1C, TSH, CBC, CMP, PSA, GFR, ADIFF, VIDH, ANEU #### [address] [place], [place] [address] A1Con 08-30-2023 HbA1c (Bld) [Mass fraction] 6.9 % High 4.3-6.4 [facility] ([place]) Comment on above: Performed By: #### A 1C, TSH, CBC, CMP, PSA, GFR, ADIFF, VIDH, ANEU #### [address] [address] CBCon 08-30-2023 Erythrocyte distribution width (RBC) [Ratio] 15.3 % High 11.5-14.5 [facility] ([place]) Comment on above: Performed By: #### A 1C, TSH, CBC, CMP, PSA, GFR, ADIFF, VIDH, ANEU #### [address] [address] Hematocrit (Bld) [Volume fraction] 39.1 % Low 42.0-52.0 [facility] ([place] Comment on above: Performed By: #### A 1C, TSH, CBC, CMP, PSA, GFR, ADIFF, VIDH, ANEU #### [place] [address] Hgb 13.5 G/dL Low 14.0-18.0 [facility] ([place]) Comment on above: Performed By: #### A 1C, TSH, CBC, CMP, PSA, GFR, ADIFF, VIDH, ANEU #### [address] [address] MCH (RBC) [Entitic mass] 32.3 pg High 27.0-31.2 [facility] ([place] Comment on above: Performed By: #### A 1C, TSH, CBC, CMP, PSA, GFR, ADIFF, VIDH, ANEU #### [address] [address] MCHC 34.6 G/dL Normal 31.8-35.4 [facility] ([place] Comment on above: Performed By: #### A 1C, TSH, CBC, CMP, PSA, GFR, ADIFF, VIDH, ANEU #### [address] [address] MCV (RBC) [Entitic vol] 93.2 fL Normal 80.0-94.0 A [facility] ([place]) Comment on above: Performed By: #### A 1C, TSH, CBC, CMP, PSA, GFR, ADIFF, VIDH, ANEU #### [address] [address] Platelet 191 10 3/mcL Normal 130-400 [facility] ([place]) Comment on above: Performed By: #### A 1C, TSH, CBC, CMP, PSA, GFR, ADIFF, VIDH, ANEU #### [address] [address] Platelet mean volume (Bld) [Entitic vol] 8.7 fL Normal 7.4-10.4 [facility] ([place] Comment on above: Performed By: #### A 1C, TSH, CBC, CMP, PSA, GFR, ADIFF, VIDH, ANEU #### [address] [address] RBC 4.19 10 6/mcL Normal 4.04-6.13 [facility] ([place] Comment on above: Performed By: #### A 1C, TSH, CBC, CMP, PSA, GFR, ADIFF, VIDH, ANEU #### [address] [address] WBC 6.3 10 3/mcL Normal 4.6-10.8 [facility] ([place] Comment on above: Performed By: #### A 1C, TSH, CBC, CMP, PSA, GFR, ADIFF, VIDH, ANEU #### [address] [address] CMPon 08-30-2023 Albumin Level 4.3 G/dL Normal 3.4-4.8 [facility] ([place] Comment on above: Performed By: #### A 1C, TSH, CBC, CMP, PSA, GFR, ADIFF, VIDH, ANEU #### [address] [address] Albumin/Globulin [Mass ratio] 1.8 {ratio} Normal 1.1-2.5 [facility] ([place] Comment on above: Performed By: #### A 1C, TSH, CBC, CMP, PSA, GFR, ADIFF, VIDH, ANEU #### [address] [address] ALP [Catalytic activity/Vol] 49 U/L Normal 40-135 [facility] ([place] Comment on above: Performed By: #### A 1C, TSH, CBC, CMP, PSA, GFR, ADIFF, VIDH, ANEU #### [address] [address] ALT [Catalytic activity/Vol] 23 U/L Normal 16-63 [facility] ([place] Comment on above: Performed By: #### A 1C, TSH, CBC, CMP, PSA, GFR, ADIFF, VIDH, ANEU #### [address] [address] AST [Catalytic activity/Vol] 15 U/L Normal 10-40 [facility] ([place] Comment on above: Performed By: #### A 1C, TSH, CBC, CMP, PSA, GFR, ADIFF, VIDH, ANEU #### [address] [address] Bili Total 0.7 mg/dL Normal 0.2-1.0 [facility] ([place]) Comment on above: Result Comment: Use of this assay is not recommended for patients undergoing treatment with eltrombopag due to the potential for falsely elevated results. Performed By: #### A 1C, TSH, CBC, CMP, PSA, GFR, ADIFF, VIDH, ANEU #### [address] [address] BUN/Creatinine Ratio 21 ratio Normal 7-27 [facility] ([place]) Comment on above: Performed By: #### A 1C, TSH, CBC, CMP, PSA, GFR, ADIFF, VIDH, ANEU #### [address] [address] Calcium [Mass/Vol] 9.6 mg/dL Normal 8.4-10.2 [facility] ([place]) Comment on above: Performed By: #### A 1C, TSH, CBC, CMP, PSA, GFR, ADIFF, VIDH, ANEU #### [address] [address] Chloride [Moles/Vol] 96 mmol/L Low 98-107 [facility] ([place]) Comment on above: Performed By: #### A 1C, TSH, CBC, CMP, PSA, GFR, ADIFF, VIDH, ANEU #### [address] [address] CO2 [Moles/Vol] 30 mmol/L Normal 23-31 [facility] ([place] Comment on above: Performed By: #### A 1C, TSH, CBC, CMP, PSA, GFR, ADIFF, VIDH, ANEU #### [address] [address] Creatinine [Mass/Vol] 0.89 mg/dL Normal 0.70-1.30 [facility] ([place]) Comment on above: Performed By: #### A 1C, TSH, CBC, CMP, PSA, GFR, ADIFF, VIDH, ANEU #### [place] [address] Electrolyte Balance 8.0 mEq/L Normal 4.0-15.0 [facility] ([place]) Comment on above: Performed By: #### A 1C, TSH, CBC, CMP, PSA, GFR, ADIFF, VIDH, ANEU #### [address] [address] Globulin 2.4 G/dL Normal [facility] ([place] Comment on above: Performed By: #### A 1C, TSH, CBC, CMP, PSA, GFR, ADIFF, VIDH, ANEU #### [address] [address] Glucose [Mass/Vol] 113 mg/dL High 83-110 [facility] ([place]) Comment on above: Performed By: #### A 1C, TSH, CBC, CMP, PSA, GFR, ADIFF, VIDH, ANEU #### [address] [address] Potassium [Moles/Vol] 4.8 mmol/L Normal 3.5-5.1 [facility] ([place]) Comment on above: Performed By: #### A 1C, TSH, CBC, CMP, PSA, GFR, ADIFF, VIDH, ANEU #### [address] [address] Sodium [Moles/Vol] 134 mmol/L Low 136-145 [facility] ([place]) Comment on above: Performed By: #### A 1C, TSH, CBC, CMP, PSA, GFR, ADIFF, VIDH, ANEU #### [address] [address] Total Protein 6.7 G/dL Normal 6.4-8.2 [facility] ([place]) Comment on above: Performed By: #### A 1C, TSH, CBC, CMP, PSA, GFR, ADIFF, VIDH, ANEU #### [id number] Urea nitrogen [Mass/Vol] 19 mg/dL High 7-18 [facility] ([place]) Comment on above: Performed By: #### A 1C, TSH, CBC, CMP, PSA, GFR, ADIFF, VIDH, ANEU #### [address] [address] LABORATORYOrdered By: SYSTEM SYSTEM on 08-30-2023 25-hydroxyvitamin D3 [Mass/Vol] 57.4 ng/mL Invalid Interpretation Code AO ADM SS Comment on above: Interpretive Data: I nterpretive Values Based on Total 25(OH) Vitamin D: Deficient <20 ng/mL Insufficient 20 - <30 ng/mL Sufficient 30-100 ng/mL Albumin BCP dye [Mass/Vol] 4.3 G/dL Normal 3.4 - 4.8 G/dL AO ADM SS Albumin/Globulin [Mass ratio] 1.8 {ratio} Normal 1.1 - 2.5 ratio AO ADM SS ALP [Catalytic activity/Vol] 49 U/L Normal 40 - 135 U/L AO ADM SS ALT With P-5'-P [Catalytic activity/Vol] 23 U/L Normal 16 - 63 U/L AO ADM SS AST With P-5'-P [Catalytic activity/Vol] 15 U/L Normal 10 - 40 U/L AO ADM SS Basophil, Absolute 0.0 103/mcL Normal 0.0 - 0.2 10^3/mcL AO Workflow SS Basophils/100 WBC (Bld) 0.6 % Normal 0.0 - 2.5 % AO Workflow SS Bilirubin [Mass/Vol] 0.7 mg/dL Normal 0.2 - 1 .0 mg/dL AO ADM SS Comment on above: Interpretive Data: U se of this assay is not recommended for patients undergoing treatment with eltrombopag due to the potential for falsely elevated results. Calcium [Mass/Vol] 9.6 mg/dL Normal 8.4 - 10. 2 mg/dL AO ADM SS Chloride [Moles/Vol] 96 mmol/L Low 98 - 10 7 mmol/L AO ADM SS CO2 [Moles/Vol] 30 mmol/L Normal 23 - 31 mmol/L AO ADM SS Creatinine [Mass/Vol] 0.89 mg/dL Normal 0.70 - 1.30 mg/dL AO ADM SS Electrolyte Balance 8.0 mEq/L Normal 4.0 - 15 .0 mEq/L AO ADM SS Eosinophil, Absolute 0.3 103/mcL Normal 0.0 - 0 .4 10^3/mcL AO Workflow SS Eosinophils/100 WBC (Bld) 4.3 % Normal 0.0 - 7.0 % AO Workflow SS Erythrocyte distribution width (RBC) [Ratio] 15.3 % High 11.5 - 14.5 % AO Workflow SS GFR/1.73 sq M.predicted among blacks MDRD (S/P/Bld) [Vol rate/Area] 99 ml/min/1.73sqm Invalid Interpretation Code AO Chemistry S Comment on above: Interpretive Data: GFR Population mean for , Non- Americans Ages 20-29 = 116 mL/min/1.73 sq.m. Ages 30-39 = 107 mL/min/1.73 sq.m. Ages 40-49 = 99 mL/min/1.73 sq.m. Ages 50-59 = 93 mL/min/1.73 sq.m. Ages 60-69 = 85 mL/min/1.73 sq.m. Ages 70+ = 75 mL/min/1.73 sq.m. Chronic Kidney Disease: Less than 60 mL/min/1.73 square meters End Stage Renal Disease: Less than 15 mL/min/1.73 square meters GFR/1.73 sq M.predicted among non-blacks MDRD (S/P/Bld) [Vol rate/Area] 81 ml/min/1.73sqm Invalid Interpretation Code AO Chemistry S Comment on above: Interpretive Data: GFR Population mean for , Non- Americans Ages 20-29 = 116 mL/min/1.73 sq.m. Ages 30-39 = 107 mL/min/1.73 sq.m. Ages 40-49 = 99 mL/min/1.73 sq.m. Ages 50-59 = 93 mL/min/1.73 sq.m. Ages 60-69 = 85 mL/min/1.73 sq.m. Ages 70+ = 75 mL/min/1.73 sq.m. Chronic Kidney Disease: Less than 60 mL/min/1.73 square meters End Stage Renal Disease: Less than 15 mL/min/1.73 square meters Globulin 2.4 G/dL Invalid Interpretation Code AO ADM SS Glucose [Mass/Vol] 113 mg/dL High 83 - 110 mg/dL AO ADM SS HbA1c (Bld) [Mass fraction] 6.9 % High 4.3 - 6.4 % AO ADM SS Hematocrit (Bld) [Volume fraction] 39.1 % Low 42.0 - 52.0 % AO Workflow SS Hemoglobin (Bld) [Mass/Vol] 13.5 G/dL Low 14.0 - 18.0 G/dL AO Workflow SS Lymphocyte, Absolute 1.7 103/mcL Normal 0.8 - 3 .9 10^3/mcL AO Workflow SS Lymphocytes/100 WBC (Bld) 27.3 % Normal 10.0 - 50.0 % AO Workflow SS MCH (RBC) [Entitic mass] 32.3 pg High 27.0 - 31.2 pg AO Workflow SS MCHC 34.6 G/dL Normal 31.8 - 35.4 G/dL AO Workflow SS MCV (RBC) [Entitic vol] 93.2 fL Normal 80.0 - 94.0 fL AO Workflow SS Monocyte, Absolute 0.5 103/mcL Normal 0.2 - 1.0 10^3/mcL AO Workflow SS Monocytes/100 WBC (Bld) 8.2 % Normal 1.7 - 13.0 % AO Workflow SS Neutrophil, Absolute 3.7 103/mcL Normal 2.9 - 6 .2 10^3/mcL AO Workflow SS Neutrophils/100 WBC (Bld) 59.6 % Normal 37.0 - 80.0 % AO Workflow SS Platelet mean volume (Bld) [Entitic vol] 8.7 fL Normal 7.4 - 10.4 fL AO Workflow SS Platelets (Bld) [#/Vol] 191 103/mcL Normal 130 - 400 10^3/mcL AO Workflow SS Potassium [Moles/Vol] 4.8 mmol/L Normal 3.5 - 5.1 mmol/L AO ADM SS Prostate specific Ag [Mass/Vol] 0.49 ng/mL Normal 0.00 - 4.00 ng/mL AO ADM SS Protein [Mass/Vol] 6.7 G/dL Normal 6.4 - 8.2 G/dL AO ADM SS RBC (Bld) [#/Vol] 4.19 106/mcL Normal 4.04 - 6.1 3 10^6/mcL AO Workflow SS Sodium [Moles/Vol] 134 mmol/L Low 136 - 145 mmol/L AO ADM SS TSH Qn 2.68 m[IU]/L Normal 0.36 - 3.74 mcIU/mL AO ADM SS Urea nitrogen [Mass/Vol] 19 mg/dL High 7 - 18 mg/dL AO ADM SS Urea nitrogen/Creatinine [Mass ratio] 21 ratio Normal 7 - 27 ratio AO ADM SS WBC (Bld) [#/Vol] 6.3 103/mcL Normal 4.6 - 10.8 10^3/mcL AO Workflow SS PSAon 08-30-2023 Prostate Specific Antigen 0.49 ng/mL Normal 0.00-4.00 [facility] ([place]) Comment on above: Performed By: #### A 1C, TSH, CBC, CMP, PSA, GFR, ADIFF, VIDH, ANEU #### [address] [address] TSHon 08-30-2023 TSH Qn 2.68 m[IU]/L Normal 0.36-3.74 [facility] ([place]) Comment on above: Order Comment: REFLE X FREE T4 IF ABNORMAL! (TSH < 0.36, or TSH > 3.64) Performed By: #### A 1C, TSH, CBC, CMP, PSA, GFR, ADIFF, VIDH, ANEU #### [address] [address] VIDHon 08-30-2023 Vit. D 25-Hydroxy 57.4 ng/mL Normal [facility] ([place]) Comment on above: Result Comment: Inte rpretive Values Based on Total 25(OH) Vitamin D: Deficient <20 ng/mL Insufficient 20 - <30 ng/mL Sufficient 30-100 ng/mL Performed By: #### A 1C, TSH, CBC, CMP, PSA, GFR, ADIFF, VIDH, ANEU #### [id number] [place], [place] [address] MALBRon 04-19-2023 U Creatinine 240.2 mg/dL Normal 39.0-259.0 [facility] ([place]) Comment on above: Performed By: #### M ALBR #### [address] [address] U Microalb 8893 mcg/dL Normal [facility] ([place]) Comment on above: Performed By: #### M ALBR #### [address] [address] U Ratio Alb/Cre 37 mcg/mg High 0-30 [facility] ([place]) Comment on above: Performed By: #### M ALBR #### [address] [address] LABORATORYOrdered By: SYSTEM SYSTEM on 09-04-2022 Albumin BCP dye [Mass/Vol] 3.9 G/dL Invalid Interpretation Code 3.4 - 4.8 G/dL AO ADM SS Albumin/Globulin [Mass ratio] 1.4 {ratio} Invalid Interpretation Code 1.1 - 2.5 ratio AO ADM SS ALP [Catalytic activity/Vol] 70 U/L Invalid Interpretation Code 40 - 135 U/L AO ADM SS ALT With P-5'-P [Catalytic activity/Vol] 28 U/L Invalid Interpretation Code 16 - 63 U/L AO ADM SS AST With P-5'-P [Catalytic activity/Vol] 17 U/L Invalid Interpretation Code 10 - 40 U/L AO ADM SS Bilirubin [Mass/Vol] 0.7 mg/dL Invalid Interpretation Code 0.2 - 1.0 mg/dL AO ADM SS Calcium [Mass/Vol] 9.7 mg/dL Invalid Interpretation Code 8.4 - 10.2 mg/dL AO ADM SS Chloride [Moles/Vol] 95 mmol/L Invalid Interpretation Code 98 - 107 mmol/L AO ADM SS CO2 [Moles/Vol] 30 mmol/L Invalid Interpretation Code 23 - 31 mmol/L AO ADM SS Creatinine [Mass/Vol] 0.83 mg/dL Invalid Interpretation Code 0.70 - 1.30 mg/dL AO ADM SS Electrolyte Balance 9.0 mEq/L Invalid Interpretation Code 4.0 - 15.0 mEq/L AO ADM SS GFR/1.73 sq M.predicted among blacks MDRD (S/P/Bld) [Vol rate/Area] 107 ml/min/1.73sqm Invalid Interpretation Code AO Chemistry S GFR/1.73 sq M.predicted among non-blacks MDRD (S/P/Bld) [Vol rate/Area] 88 ml/min/1.73sqm Invalid Interpretation Code AO Chemistry S Globulin 2.7 G/dL Invalid Interpretation Code AO ADM SS Glucose [Mass/Vol] 150 mg/dL Invalid Interpretation Code 83 - 110 mg/dL AO ADM SS Potassium [Moles/Vol] 4.5 mmol/L Invalid Interpretation Code 3.5 - 5.1 mmol/L AO ADM SS Protein [Mass/Vol] 6.6 G/dL Invalid Interpretation Code 6.4 - 8.2 G/dL AO ADM SS Sodium [Moles/Vol] 134 mmol/L Invalid Interpretation Code 136 - 145 mmol/L AO ADM SS Urea nitrogen [Mass/Vol] 13 mg/dL Invalid Interpretation Code 7 - 18 mg/dL AO ADM SS Urea nitrogen/Creatinine [Mass ratio] 16 ratio Invalid Interpretation Code 7 - 27 ratio AO ADM SS LABORATORYOrdered By: Rhea Lopez on 09-04-2022 Basophil, Absolute 0.0 103/mcL Invalid Interpretation Code 0.0 - 0.2 10^3/mcL AO Workflow SS Basophils/100 WBC (Bld) 0.6 % Invalid Interpretation Code 0.0 - 2.5 % AO Workflow SS Eosinophil, Absolute 0.3 103/mcL Invalid Interpretation Code 0.0 - 0.4 10^3/mcL AO Workflow SS Eosinophils/100 WBC (Bld) 5.2 % Invalid Interpretation Code 0.0 - 7.0 % AO Workflow SS Erythrocyte distribution width (RBC) [Ratio] 14.6 % Invalid Interpretation Code 11.5 - 14.5 % AO Workflow SS Hematocrit (Bld) [Volume fraction] 37.9 % Invalid Interpretation Code 42.0 - 52.0 % AO Workflow SS Hemoglobin (Bld) [Mass/Vol] 13.0 G/dL Invalid Interpretation Code 14.0 - 18.0 G/dL AO Workflow SS Lymphocyte, Absolute 1.1 103/mcL Invalid Interpretation Code 0.8 - 3.9 10^3/mcL AO Workflow SS Lymphocytes/100 WBC (Bld) 17.0 % Invalid Interpretation Code 10.0 - 50.0 % AO Workflow SS MCH (RBC) [Entitic mass] 32.1 pg Invalid Interpretation Code 27.0 - 31.2 pg AO Workflow SS MCHC 34.2 G/dL Invalid Interpretation Code 31.8 - 35.4 G/dL AO Workflow SS MCV (RBC) [Entitic vol] 93.9 fL Invalid Interpretation Code 80.0 - 94.0 fL AO Workflow SS Monocyte, Absolute 0.7 103/mcL Invalid Interpretation Code 0.2 - 1.0 10^3/mcL AO Workflow SS Monocytes/100 WBC (Bld) 10.1 % Invalid Interpretation Code 1.7 - 13.0 % AO Workflow SS Neutrophil, Absolute 4.4 103/mcL Invalid Interpretation Code 2.9 - 6.2 10^3/mcL AO Workflow SS Neutrophils/100 WBC (Bld) 67.1 % Invalid Interpretation Code 37.0 - 80.0 % AO Workflow SS Platelet mean volume (Bld) [Entitic vol] 8.3 fL Invalid Interpretation Code 7.4 - 10.4 fL AO Workflow SS Platelets (Bld) [#/Vol] 194 103/mcL Invalid Interpretation Code 130 - 400 10^3/mcL AO Workflow SS RBC (Bld) [#/Vol] 4.03 106/mcL Invalid Interpretation Code 4.04 - 6.13 10^6/mcL AO Workflow SS WBC (Bld) [#/Vol] 6.5 103/mcL Invalid Interpretation Code 4.6 - 10.8 10^3/mcL AO Workflow SS LABORATORYOrdered By: Valentin Urena on 07-17-2022 Albumin DL <= 20 mg/L (U) [Mass/Vol] 4035 mcg/dL Invalid Interpretation Code AO ADM SS Albumin/Creatinine DL <= 20 mg/L (U) [Mass ratio] 31 mcg/mg Invalid Interpretation Code 0 - 30 mcg/mg AO ADM SS Creatinine (U) [Mass/Vol] 131.9 mg/dL Invalid Interpretation Code 39.0 - 259.0 mg/dL AO ADM SS LABORATORYOrdered By: SYSTEM SYSTEM on 04-20-2022 Albumin BCP dye [Mass/Vol] 4.1 G/dL Invalid Interpretation Code 3.4 - 4.8 G/dL AO ADM SS Albumin/Globulin [Mass ratio] 1.5 {ratio} Invalid Interpretation Code 1.1 - 2.5 ratio AO ADM SS ALP [Catalytic activity/Vol] 60 U/L Invalid Interpretation Code 40 - 135 U/L AO ADM SS ALT With P-5'-P [Catalytic activity/Vol] 23 U/L Invalid Interpretation Code 16 - 63 U/L AO ADM SS AST With P-5'-P [Catalytic activity/Vol] 21 U/L Invalid Interpretation Code 10 - 40 U/L AO ADM SS Bilirubin [Mass/Vol] 0.8 mg/dL Invalid Interpretation Code 0.2 - 1.0 mg/dL AO ADM SS Calcium [Mass/Vol] 9.4 mg/dL Invalid Interpretation Code 8.4 - 10.2 mg/dL AO ADM SS Chloride [Moles/Vol] 94 mmol/L Invalid Interpretation Code 98 - 107 mmol/L AO ADM SS CO2 [Moles/Vol] 28 mmol/L Invalid Interpretation Code 23 - 31 mmol/L AO ADM SS Creatinine [Mass/Vol] 0.76 mg/dL Invalid Interpretation Code 0.70 - 1.30 mg/dL AO ADM SS Electrolyte Balance 10.0 mEq/L Invalid Interpretation Code 4.0 - 15.0 mEq/L AO ADM SS GFR 119 ml/min/1.73sqm Invalid Interpretation Code AO Chemistry S GFR Non- 98 ml/min/1.73sqm Invalid Interpretation Code AO Chemistry S Globulin 2.8 G/dL Invalid Interpretation Code AO ADM SS Glucose [Mass/Vol] 155 mg/dL Invalid Interpretation Code 83 - 110 mg/dL AO ADM SS Potassium [Moles/Vol] 4.3 mmol/L Invalid Interpretation Code 3.5 - 5.1 mmol/L AO ADM SS Prostate specific Ag [Mass/Vol] 0.52 ng/mL Invalid Interpretation Code 0.00 - 4.00 ng/mL AO ADM SS Protein [Mass/Vol] 6.9 G/dL Invalid Interpretation Code 6.4 - 8.2 G/dL AO ADM SS Sodium [Moles/Vol] 132 mmol/L Invalid Interpretation Code 136 - 145 mmol/L AO ADM SS Urea nitrogen [Mass/Vol] 13 mg/dL Invalid Interpretation Code 7 - 18 mg/dL AO ADM SS Urea nitrogen/Creatinine [Mass ratio] 17 ratio Invalid Interpretation Code 7 - 27 ratio AO ADM SS LABORATORYOrdered By: Mike Torre on 04-20-2022 Basophil, Absolute 0.0 103/mcL Invalid Interpretation Code 0.0 - 0.2 10^3/mcL AO Workflow SS Basophils/100 WBC (Bld) 0.6 % Invalid Interpretation Code 0.0 - 2.5 % AO Workflow SS Eosinophil, Absolute 0.2 103/mcL Invalid Interpretation Code 0.0 - 0.4 10^3/mcL AO Workflow SS Eosinophils/100 WBC (Bld) 3.4 % Invalid Interpretation Code 0.0 - 7.0 % AO Workflow SS Erythrocyte distribution width (RBC) [Ratio] 14.4 % Invalid Interpretation Code 11.5 - 14.5 % AO Workflow SS Hematocrit (Bld) [Volume fraction] 40.0 % Invalid Interpretation Code 42.0 - 52.0 % AO Workflow SS Hemoglobin (Bld) [Mass/Vol] 13.9 G/dL Invalid Interpretation Code 14.0 - 18.0 G/dL AO Workflow SS Lymphocyte, Absolute 1.6 103/mcL Invalid Interpretation Code 0.8 - 3.9 10^3/mcL AO Workflow SS Lymphocytes/100 WBC (Bld) 33.3 % Invalid Interpretation Code 10.0 - 50.0 % AO Workflow SS MCH (RBC) [Entitic mass] 31.7 pg Invalid Interpretation Code 27.0 - 31.2 pg AO Workflow SS MCHC 34.7 G/dL Invalid Interpretation Code 31.8 - 35.4 G/dL AO Workflow SS MCV (RBC) [Entitic vol] 91.5 fL Invalid Interpretation Code 80.0 - 94.0 fL AO Workflow SS Monocyte, Absolute 0.4 103/mcL Invalid Interpretation Code 0.2 - 1.0 10^3/mcL AO Workflow SS Monocytes/100 WBC (Bld) 9.3 % Invalid Interpretation Code 1.7 - 13.0 % AO Workflow SS Neutrophil, Absolute 2.5 103/mcL Invalid Interpretation Code 2.9 - 6.2 10^3/mcL AO Workflow SS Neutrophils/100 WBC (Bld) 53.4 % Invalid Interpretation Code 37.0 - 80.0 % AO Workflow SS Platelet mean volume (Bld) [Entitic vol] 7.9 fL Invalid Interpretation Code 7.4 - 10.4 fL AO Workflow SS Platelets (Bld) [#/Vol] 183 103/mcL Invalid Interpretation Code 130 - 400 10^3/mcL AO Workflow SS RBC (Bld) [#/Vol] 4.38 106/mcL Invalid Interpretation Code 4.04 - 6.13 10^6/mcL AO Workflow SS WBC (Bld) [#/Vol] 4.7 103/mcL Invalid Interpretation Code 4.6 - 10.8 10^3/mcL AO Workflow SS LABORATORYOrdered By: Karen Acuña on 04-20-2022 Cholesterol [Mass/Vol] 124 mg/dL Invalid Interpretation Code 0 - 200 mg/dL AO ADM SS Cholesterol in HDL [Mass/Vol] 68 mg/dL Invalid Interpretation Code 40 - 60 mg/dL AO ADM SS Cholesterol in LDL [Mass/Vol] 44 mg/dL Invalid Interpretation Code 0 - 130 mg/dL AO ADM SS Triglyceride [Mass/Vol] 62 mg/dL Invalid Interpretation Code 0 - 150 mg/dL AO ADM SS LABORATORYOrdered By: Dolores Bal on 04-12-2021 Albumin BCP dye [Mass/Vol] 3.7 G/dL Invalid Interpretation Code 3.4 - 4.8 G/dL AO ADM SS Albumin/Globulin [Mass ratio] 1.2 {ratio} Invalid Interpretation Code 1.1 - 2.5 ratio AO ADM SS ALP [Catalytic activity/Vol] 64 U/L Invalid Interpretation Code 40 - 135 U/L AO ADM SS ALT With P-5'-P [Catalytic activity/Vol] 36 U/L Invalid Interpretation Code 16 - 63 U/L AO ADM SS AST With P-5'-P [Catalytic activity/Vol] 21 U/L Invalid Interpretation Code 10 - 40 U/L AO ADM SS Basophil, Absolute 0.10 103/mcL Invalid Interpretation Code 0.00 - 0.19 10^3/mcL AO Auto Heme SS Basophils/100 WBC (Bld) 1.1 % Invalid Interpretation Code 0.0 - 2.5 % AO Auto Heme SS Bilirubin [Mass/Vol] 0.8 mg/dL Invalid Interpretation Code 0.2 - 1.0 mg/dL AO ADM SS Calcium [Mass/Vol] 9.3 mg/dL Invalid Interpretation Code 8.4 - 10.2 mg/dL AO ADM SS Chloride [Moles/Vol] 96 mmol/L Invalid Interpretation Code 98 - 107 mmol/L AO ADM SS Cholesterol [Mass/Vol] 106 mg/dL Invalid Interpretation Code 0 - 200 mg/dL AO ADM SS Cholesterol in HDL [Mass/Vol] 53 mg/dL Invalid Interpretation Code 40 - 60 mg/dL AO ADM SS Cholesterol in LDL [Mass/Vol] 44 mg/dL Invalid Interpretation Code 0 - 130 mg/dL AO ADM SS CO2 [Moles/Vol] 28 mmol/L Invalid Interpretation Code 23 - 31 mmol/L AO ADM SS Creatinine [Mass/Vol] 0.82 mg/dL Invalid Interpretation Code 0.70 - 1.30 mg/dL AO ADM SS Electrolyte Balance 11.0 mEq/L Invalid Interpretation Code AO ADM SS Eosinophil, Absolute 0.20 103/mcL Invalid Interpretation Code 0.00 - 0.40 10^3/mcL AO Auto Heme SS Eosinophils/100 WBC (Bld) 3.7 % Invalid Interpretation Code 0.0 - 7.0 % AO Auto Heme SS Erythrocyte distribution width (RBC) [Ratio] 14.1 % Invalid Interpretation Code 11.5 - 14.5 % AO Auto Heme SS Globulin 3.1 G/dL Invalid Interpretation Code AO ADM SS Glucose [Mass/Vol] 149 mg/dL Invalid Interpretation Code 83 - 110 mg/dL AO ADM SS Hematocrit (Bld) [Volume fraction] 41.6 % Invalid Interpretation Code 42.0 - 52.0 % AO Auto Heme SS Hemoglobin (Bld) [Mass/Vol] 13.9 G/dL Invalid Interpretation Code 14.0 - 18.0 G/dL AO Auto Heme SS Lymphocyte, Absolute 1.30 103/mcL Invalid Interpretation Code 0.77 - 3.85 10^3/mcL AO Auto Heme SS Lymphocytes/100 WBC (Bld) 19.8 % Invalid Interpretation Code 10.0 - 50.0 % AO Auto Heme SS MCH (RBC) [Entitic mass] 30.9 pg Invalid Interpretation Code 27.0 - 31.2 pg AO Auto Heme SS MCHC (RBC) [Mass/Vol] 33.4 G/dL Invalid Interpretation Code 31.8 - 35.4 G/dL AO Auto Heme SS MCV (RBC) [Entitic vol] 92.6 fL Invalid Interpretation Code 80.0 - 94.0 fL AO Auto Heme SS Monocyte, Absolute 0.50 103/mcL Invalid Interpretation Code 0.15 - 1.00 10^3/mcL AO Auto Heme SS Monocytes/100 WBC (Bld) 7.4 % Invalid Interpretation Code 1.7 - 13.0 % AO Auto Heme SS Neutrophil, Absolute 4.30 103/mcL Invalid Interpretation Code 2.85 - 6.16 10^3/mcL AO Auto Heme SS Neutrophils/100 WBC (Bld) 68.0 % Invalid Interpretation Code 37.0 - 80.0 % AO Auto Heme SS Platelet mean volume (Bld) [Entitic vol] 7.5 fL Invalid Interpretation Code 7.4 - 10.4 fL AO Auto Heme SS Platelets (Bld) [#/Vol] 387 103/mcL Invalid Interpretation Code 130 - 400 10^3/mcL AO Auto Heme SS Potassium [Moles/Vol] 4.5 mmol/L Invalid Interpretation Code 3.5 - 5.1 mmol/L AO ADM SS Prostate specific Ag [Mass/Vol] 0.75 ng/mL Invalid Interpretation Code 0.00 - 4.00 ng/mL AO ADM SS Protein [Mass/Vol] 6.8 G/dL Invalid Interpretation Code 6.4 - 8.2 G/dL AO ADM SS RBC (Bld) [#/Vol] 4.49 106/mcL Invalid Interpretation Code 4.04 - 6.13 10^6/mcL AO Auto Heme SS Sodium [Moles/Vol] 135 mmol/L Invalid Interpretation Code 136 - 145 mmol/L AO ADM SS Triglyceride [Mass/Vol] 45 mg/dL Invalid Interpretation Code 0 - 150 mg/dL AO ADM SS Urea nitrogen [Mass/Vol] 12 mg/dL Invalid Interpretation Code 7 - 18 mg/dL AO ADM SS Urea nitrogen/Creatinine [Mass ratio] 15 ratio Invalid Interpretation Code 7 - 27 ratio AO ADM SS Vit. D 25-Hydroxy 62.7 ng/mL Invalid Interpretation Code AO ADM SS WBC (Bld) [#/Vol] 6.30 103/mcL Invalid Interpretation Code 4.60 - 10.80 10^3/mcL AO Auto Heme SS LABORATORYOrdered By: SYSTEM SYSTEM on 04-12-2021 GFR 109 ml/min/1.73sqm Invalid Interpretation Code AO Chemistry S GFR Non- 90 ml/min/1.73sqm Invalid Interpretation Code AO Chemistry S Vital Signs Date Time Vital Sign Value Performing Clinician Onel hernandez 11-13-2024 10:05-0400 Body temperature 97.5 [degF] Rashmi Balkatia ELECTRICAL TEST TECHNICIAN-C Work Phone: [facility] 11-13-2024 10:05-0400 Diastolic blood pressure 80 mm[Hg] Rashmi Baltes ELECTRICAL TEST TECHNICIAN-C Work Phone: [facility] 11-13-2024 10:05-0400 Heart rate 91 /min Rashmi Baltes ELECTRICAL TEST TECHNICIAN-C Work Phone: [facility] 11-13-2024 10:05-0400 Respiratory rate 18 /min Rashmi Baltes ELECTRICAL TEST TECHNICIAN-C Work Phone: [facility] 11-13-2024 10:05-0400 SaO2% (BldA) [Mass fraction] 97 % Rashmi Balkatia ELECTRICAL TEST TECHNICIAN-C Work Phone: [facility] 11-13-2024 10:05-0400 Systolic blood pressure 144 mm[Hg] Rashmi Baltes ELECTRICAL TEST TECHNICIAN-C Work Phone: [facility] 11-10-2024 14:52-0400 Body mass index (BMI) [Ratio] 23.5 kg/m2 Rashmi Baltes ELECTRICAL TEST TECHNICIAN-C Work Phone: [facility] 11-10-2024 14:52-0400 Body weight 67.99 kg Rashmi Baltes ELECTRICAL TEST TECHNICIAN-C Work Phone: [facility] 11-09-2024 13:19-0400 Body height 170.18 cm Rashmi Balkatia ELECTRICAL TEST TECHNICIAN-C Work Phone: [facility] 10-31-2024 08:11-0400 Inhaled oxygen flow rate 4 L/min Rashmi Baltes ELECTRICAL TEST TECHNICIAN-C Work Phone: [facility] 10-25-2024 02:52-0400 SaO2% (BldA) [Mass fraction] 98.4 % JUDIT HAHN MD [facility] 10-25-2024 01:07-0400 SaO2% (BldA) [Mass fraction] 74.9 % JUDIT HAHN MD [facility] 10-21-2024 14:28-0400 SaO2% (BldA) [Mass fraction] 99.1 % JUDIT HAHN MD [facility] 02-20-2024 14:47-0400 Body temperature 98.6 [degF] NELIDA GROVE DO [facility] 02-20-2024 14:47-0400 Body weight 72.7 kg NELIDA GROVE DO [facility] 02-20-2024 14:47-0400 Diastolic Blood Pressure Non-Invasive 96 mm[Hg] NELIDA GROVE DO [facility] 02-20-2024 14:47-0400 Heart rate 71 /min NELIDA GROVE DO [facility] 02-20-2024 14:47-0400 Respiratory rate 16 /min NELIDA GROVE DO [facility] 02-20-2024 14:47-0400 Systolic Blood Pressure Non-Invasive 165 mm[Hg] NELIDA GROVE DO [facility] Encounters Encounter Date Encounter Type Care Provider Facility Start: 10-29-2024 End: 11-13-2024 Evaluation and management of inpatient Dr. Juan Reed MD -[facility] Start: 10-20-2024 End: 10-29-2024 Evaluation and management of inpatient JUDIT HAHN MD [facility] Start: 10-20-2024 End: 10-24-2024 ambulatory RASHMI PRICE BLOOD BANK TECHNICIAN-PITCH FILLER Facility:[facility] Start: 10-20-2024 End: 10-24-2024 Outreach Lab KATI MALDONADO BLOOD BANK TECHNICIAN-PITCH FILLER [facility] Start: 10-20-2024 End: 10-20-2024 Emergency department patient visit JAMIE TAYLOR MD [facility] Start: 10-08-2024 End: 10-12-2024 ambulatory RASHMI BALTES BLOOD BANK TECHNICIAN-PITCH FILLER Facility[facility] Start: 10-08-2024 End: 10-12-2024 Outreach Lab RASHMI BALTES BLOOD BANK TECHNICIAN-PITCH FILLER [facility] Start: 10-05-2024 End: 10-05-2024 ambulatory RASHMI BALTES BLOOD BANK TECHNICIAN-PITCH FILLER Facility[facility] Start: 10-05-2024 End: 10-05-2024 Patient encounter procedure RASHMI BALTES BLOOD BANK TECHNICIAN-PITCH FILLER [facility] Start: 07-06-2024 End: 07-06-2024 ambulatory RASHMI BALTES BLOOD BANK TECHNICIAN-PITCH FILLER Facility[facility] Start: 07-06-2024 End: 07-06-2024 Patient encounter procedure RASHMI BALTES BLOOD BANK TECHNICIAN-PITCH FILLER [facility] Start: 05-18-2024 End: 05-18-2024 ambulatory RASHMI BALTES BLOOD BANK TECHNICIAN-PITCH FILLER [facility] Start: 05-18-2024 End: 05-18-2024 Patient encounter procedure RASHMI BALTES BLOOD BANK TECHNICIAN-PITCH FILLER [facility] Start: 04-27-2024 End: 04-27-2024 ambulatory RASHMI BALTES BLOOD BANK TECHNICIAN-PITCH FILLER [facility] Start: 04-27-2024 End: 04-27-2024 Patient encounter procedure RASHMI BALTES BLOOD BANK TECHNICIAN-PITCH FILLER [facility] Start: 04-09-2024 End: 04-13-2024 ambulatory RASHMI BALTES BLOOD BANK TECHNICIAN-PITCH FILLER [facility] Start: 04-09-2024 End: 04-13-2024 Outreach Lab RASHMI BALTES BLOOD BANK TECHNICIAN-PITCH FILLER [facility] Start: 04-03-2024 End: 04-03-2024 ambulatory RASHMI BALKATIA BLOOD BANK TECHNICIAN-PITCH FILLER [facility] Start: 04-03-2024 End: 04-03-2024 Patient encounter procedure RASHMI BALKATIA BLOOD BANK TECHNICIAN-PITCH FILLER [facility] Start: 02-20-2024 End: 02-20-2024 Emergency department patient visit NELIDA GROVE DO [facility] Start: 01-21-2024 End: 01-21-2024 ambulatory RASHMI BALKATIA BLOOD BANK TECHNICIAN-PITCH FILLER [facility] Start: 01-21-2024 End: 01-21-2024 Patient encounter procedure RASHMI BALKATIA BLOOD BANK TECHNICIAN-PITCH FILLER [facility] Start: 01-10-2024 End: 01-10-2024 ambulatory RASHMI BALTES BLOOD BANK TECHNICIAN-PITCH FILLER [facility] Start: 01-10-2024 End: 01-10-2024 Patient encounter procedure RASHMI BALKATIA BLOOD BANK TECHNICIAN-PITCH FILLER [facility] Start: 10-09-2023 End: 10-13-2023 ambulatory RASHMI BALTES BLOOD BANK TECHNICIAN-PITCH FILLER Facility:[facility] Start: 10-09-2023 End: 10-13-2023 Outreach Lab RASHMI BALTES BLOOD BANK TECHNICIAN-PITCH FILLER [facility] Start: 08-30-2023 End: 08-30-2023 ambulatory MIRACLE COULTER DO Facility:[facility] Start: 08-30-2023 End: 08-30-2023 Patient encounter procedure MIRACLE COULTER DO [facility] Start: 04-19-2023 End: 04-23-2023 ambulatory RASHMI BALTES BLOOD BANK TECHNICIAN-PITCH FILLER Facility:[facility] Start: 09-04-2022 End: 09-04-2022 Patient encounter procedure RASHMI PRICE BLOOD BANK TECHNICIAN-PITCH FILLER [facility] Start: 07-17-2022 End: 07-21-2022 Outreach Lab RASHMI PRICE BLOOD BANK TECHNICIAN-PITCH FILLER [facility] Start: 04-20-2022 End: 04-20-2022 Patient encounter procedure RASHMI PRICE BLOOD BANK TECHNICIAN-PITCH FILLER [facility] Start: 02-13-2022 End: 02-13-2022 Patient encounter procedure RASHMI ALBERT BLOOD BANK TECHNICIAN-PITCH FILLER [facility] Start: 04-12-2021 End: 04-12-2021 Patient encounter procedure RASHMI PRICE BLOOD BANK TECHNICIAN-PITCH FILLER [facility] Start: 04-08-2021 End: 04-08-[address] KENNY DIETZ DO [facility] Procedures Date Procedure Procedure Detail Performing Clinician Start: 11-13-2024 Osmolality measureme nt, serum Rashmi Price ELECTRICAL TEST TECHNICIAN-C Work Phone: Start: 11-13-2024 Estimated creatinine clearance Rashmi Price ELECTRICAL TEST TECHNICIAN-C Work Phone: Start: 11-11-2024 Urnls dip stick/tabl et reagent auto microscopy Rashmi Price ELECTRICAL TEST TECHNICIAN-C Work Phone: Start: 11-04-2024 X-ray of chest, PA a nd lateral views Rashmi Price ELECTRICAL TEST TECHNICIAN-C Work Phone: Start: 11-03-2024 Urine culture Rashmi etienne ELECTRICAL TEST TECHNICIAN-C Work Phone: Start: 10-31-2024 Vitamin D, 25-hydrox y measurement Rashmi HANSON Work Phone: Comment on above: Vitamin D StatusDefi ciency: <20 ng/mL (50nmol/L)Insufficiency: 20-30 ng/mL (50-75 nmol/L)Sufficiency: 30-100 ng/mL (75-250 nmol/L)Toxicity: >100 ng/mL (>250 nmol/L) Start: 07-04-2020 No retinopathy of le ft eye due to diabetes mellitus DR KENNY DIETZ DO Comment on above: [facility] Start: 07-04-2020 No retinopathy of ri ght eye due to diabetes mellitus DR KENNY DIETZ DO Comment on above: [facility] Start: 03-07-2020 Ophthalmic examinati on and evaluation DR KENNY DIETZ DO Comment on above: shu mild, non prolif erative retinopathy; repeat [address] KENNY Doll DO Repair of musculoten dinous cuff of shoulder DR KENNY DIETZ DO Plan of Treatment Date Care Activity Detail Author Start: 11-13-2024 Patient discharge [facility] Start: 11-11-2024 [facility] Start: 11-11-2024 Referral to service [facility] Start: 11-11-2024 Urine culture Urine Culture [facility] Start: 11-04-2024 Removal of urinary catheter [facility] Start: 10-30-2024 Speech therapy management [facility] Start: 10-30-2024 Development of care plan [facility] Start: 10-30-2024 Speech therapy assessment [facility] Start: 10-30-2024 Developing a treatment plan [facility] Start: 10-29-2024 Contact precautions [facility] Start: 10-29-2024 Admission procedure [facility] Start: 10-29-2024 Introduction of urin skyler catheter [facility] Start: 10-29-2024 Measuring intake and output [facility] Start: 10-29-2024 End: 10-30-2024 Patient referral to dietitian [facility] Start: 10-29-2024 Referral to occupati onal therapist [facility] Start: 10-29-2024 Referral to service [facility] Start: 10-29-2024 Vital signs measurements [facility] Start: 10-29-2024 End: 10-29-2024 [facility] Start: 10-29-2024 Contact precautions [facility] Start: 10-29-2024 Following clinical p athway protocol [facility] Osmolality of Urine [facility] Sodium [Moles/volume ] in Urine [facility] Immunizations Immunization Date Immunization Notes Care Provider Fa cility 10-06-2024 Covid (Spikevax) Rashmi Baltes ELECTRICAL TEST TECHNICIAN-C Work Phone: [facility] 10-06-2024 SARS-CoV-2 (COVID-19 ) [id number] RASHMI PRICE BLOOD BANK TECHNICIAN-PITCH FILLER [facility] 10-06-2024 SARS-CoV-2 (COVID-19 ) [id number] RASHMI BALTES BLOOD BANK TECHNICIAN-PITCH FILLER [facility] Comment on above: Result Comment: [facility] 01-09-2024 Covid (Spikevax) Rashmi Baltes ELECTRICAL TEST TECHNICIAN-C Work Phone: [facility] 01-09-2024 influenza virus vacc ine, unspecified formulation RASHMI PRICE BLOOD BANK TECHNICIAN-PITCH FILLER [facility] 01-09-2024 influenza, high dose seasonal, preservative-free Rashmi Baltes ELECTRICAL TEST TECHNICIAN-C Work Phone: [facility] 01-09-2024 SARS-CoV-2 (COVID-19 ) [id number] RASHMI BALKATIA BLOOD BANK TECHNICIAN-PITCH FILLER [facility] 01-31-2023 Covid (Spikevax) Rashmi Baltes ELECTRICAL TEST TECHNICIAN-C Work Phone: [facility] 01-31-2023 influenza virus vacc ine, unspecified formulation MIRACLE COULTER DO [facility] 01-31-2023 SARS-CoV-2 (COVID-19 ) [id number] MIRACLE COULTER DO [facility] 01-30-2023 RSV Adult BiValent (Abrysvo) Rashmi Price ELECTRICAL TEST TECHNICIAN-C Work Phone: [facility] 01-30-2023 RSV vaccine, preF A- preF B, recombinant MIRACLE COULTER DO [facility] 01-18-2023 Pneumococcal conjuga te PCV20, polysaccharide [id number] conjugate, adjuvant, PF; Translations: [Prevnar 20] MIRACLE COULTER DO [facility] 09-10-2022 Covid Pfizer Bivalen t Booster Rashmi Price ELECTRICAL TEST TECHNICIAN-C Work Phone: [facility] 01-15-2022 Covid Pfizer Bivalen t Booster Rashmi Price ELECTRICAL TEST TECHNICIAN-C Work Phone: [facility] 01-03-2022 influenza virus vacc ine, unspecified formulation RASHMI PRICE BLOOD BANK TECHNICIAN-PITCH FILLER [facility] 08-03-2021 SARS-CoV-2 (COVID-19 ) [id number] vaccine RASHMI PRICE BLOOD BANK TECHNICIAN-PITCH FILLER [facility] 08-03-2021 tetanus toxoid, redu darline diphtheria toxoid, and acellular pertussis vaccine, adsorbed RASHMI PRICE BLOOD BANK TECHNICIAN-PITCH FILLER [facility] 02-24-2021 SARS-CoV-2 (COVID-19 ) mRNA-[id number] vaccine RASHMI PRICE BLOOD BANK TECHNICIAN-PITCH FILLER [facility] 02-08-2021 influenza virus vacc ine, unspecified formulation RASHMI PRICE BLOOD BANK TECHNICIAN-PITCH FILLER [facility] 06-22-2020 COVID-19, mRNA, LNP- S, PF, 100 mcg/ 0.5 mL dose; Translations: [Moderna COVID-19 Vaccine] DR KENNY DIETZ DO [facility] 05-25-2020 SARS-CoV-2 (COVID-19 ) mRNA-[id number] KENNY DIETZ DO [facility] 01-06-2020 influenza, injectabl e, quadrivalent, preservative free; Translations: [Fluarix PF Quadrivalent ] DR KENNY DIETZ DO [facility] 05-16-[address] KENNY DIETZ DO [facility] 03-02-2019 influenza, injectabl e, quadrivalent, preservative free; Translations: [Fluarix PF Quadrivalent ] DR KENNY DIETZ DO [facility] 02-04-[address] KENNY DIETZ DO [facility] 01-28-2018 influenza virus vacc ine, unspecified formulation DR KENNY DIETZ DO [facility] 01-22-2017 influenza virus vacc ine, unspecified formulation DR KENNY DIETZ DO [facility] 01-12-2016 influenza virus vacc ine, unspecified formulation DR KENNY DIETZ DO [facility] 01-18-2015 influenza virus vacc ine, unspecified formulation DR KENNY DIETZ DO [facility] 09-16-2014 pneumococcal conjuga te vaccine, [address] KENNY DIETZ DO [facility] 01-04-2014 influenza virus vacc ine, unspecified formulation DR KENNY DIETZ DO [facility] 08-25-2012 tetanus toxoid, redu darline diphtheria toxoid, and acellular pertussis vaccine, adsorbed DR KENNY DIETZ DO [facility] 12-10-[address] KENNY DIETZ DO [facility] 02-13-2006 pneumococcal polysaccharide vaccine, [address] KENNY DIETZ DO [facility] Payers Date Payer Category Payer Self-pay 2024 Medicare [id number] 2024 Medicare [id number] 2023 Private Health Insurance [id number] 2018 Private Health Insurance [id number] 1938 Unknown [id number] 2.16.8 [id number] 1938 Unknown [id number] 2.16.8 40.1.970472.3.579.2.627 1938 Unknown [id number] 2.16.8 40.1.075430.3.579.2.627 1938 Unknown [id number] 2.16. 840.1.844556.3.579.2.62 1938 Unknown [id number] 2.16. 840.1.328495.3.579.2.62 1938 Unknown [id number] 2.16. 840.1.989797.3.579.2.62 1938 Unknown [id number] 2.16.8 40.1.734570.3.579.2.62 1938 Unknown [id number] 2.16.8 40.1.179477.3.579.2.62 1938 Unknown [id number] 2.16.8 40.1.757226.3.579.2.62 1938 Unknown [id number] 2.16.8 40.1.913325.3.579.2.62 1938 Unknown [id number] 2.16.8 40.1.100256.3.579.2.62 1938 Unknown [id number] 2.16.8 40.1.161588.3.579.2.62 1938 Unknown [id number] 2.16.8 40.1.242424.3.579.2.62 1938 Unknown [id number] 2.16.8 40.1.533107.3.579.2.62 1938 Unknown [id number] 2.16.8 40.1.507222.3.579.2.62 1938 Unknown [id number] 2.16. 840.1.420597.3.579.2.627 Medicare [id number] Unknown [id number] Unknown [id number] 2.16.8 40.1.585400.3.579.2.462 Social History Date Type Detail Facility Start: 12-09-2018 End: 10-29-2024 Never smoked tobacco (finding) [facility] Comment on above: no smoke exposure Start: 1940 Sex Assigned At Male A [facility] Sexual Orientation [facility] Start: 10-29-2018 Sex Male (finding) [facility] Start: 03-11-2019 Tobacco Use Tobacco Use [place] [facility] Medical Equipment Procedure Code Equipment Code Equipment Origin al Text Equipment Identifier Dates Blood Glucose Te st Strips Start: 05-17-2020 Lancets Start: 03-02-[address] Strips Start: 05-17-2020 Lancets Start: 03-02-2019 See Instructions , EA=BOX of 100 DM E11.9 one touch ultra blue test strips - patient checks once a day, # 3 EA, 3 Refill(s), Pharmacy: [facility] Type 2 diabetes mellitus, 172.7, cm, 07/27/21 8:54:00 EDT, Height, 72.1, kg, 07/27/21 8:54... Start: 07-27-2021 See Instructions , One touch delica lancets - patietn checks once a day, # 1 EA, 5 Refill(s), Type 2 diabetes mellitus Start: 03-02-2019 See Instructions , EA=BOX of 100 DM E11.9 one touch ultra blue test strips - patient checks once a day, # 3 EA, 3 Refill(s), Pharmacy: [facility] Type 2 diabetes mellitus, 172.7, cm, 07/27/21 8:54:00 EDT, Height, 72.1, kg, 07/27/21 8:54... Start: 07-27-2021 See Instructions , One touch delica lancets - patietn checks once a day, # 1 EA, 5 Refill(s), Type 2 diabetes mellitus Start: 03-02-2019 See Instructions , EA=BOX of 100 DM E11.9 one touch ultra blue test strips - patient checks once a day, # 3 EA, 3 Refill(s), [facility]acy: [facility] [facility], Type 2 diabetes mellitus, 172.7, cm, 07/27/21 8:54:00 EDT, Height, 72.1, kg, 07/27/21 8:54... Start: 07-27-2021 See Instructions , One touch delica lancets - patietn checks once a day, # 1 EA, 5 Refill(s), Type 2 diabetes mellitus Start: 03-02-2019 See Instructions , EA=BOX of 100 DM E11.9 one touch ultra blue test strips - patient checks once a day, # 1 EA, 3 Refill(s), Pharmacy: [facility] #[id number], Type 2 diabetes mellitus, 172.7, cm, 09/04/22 7:49:00 EDT, Height, 74.5, kg, 09/04/22 7:49:00 EDT,... Start: 09-04-2022 See Instructions , One touch delica lancets - patietn checks once a day, # 1 EA, 5 Refill(s), Type 2 diabetes mellitus Start: 03-02-2019 See Instructions , EA=BOX of 100 DM E11.9 one touch ultra blue test strips - patient checks once a day, # 1 EA, 3 Refill(s), Pharmacy: [facility] #[id number], Type 2 diabetes mellitus, 172.7, cm, 09/04/22 7:49:00 EDT, Height, 74.5, kg, 09/04/22 7:49:00 EDT, Dosing Weight Start: 09-04-2022 See Instructions , One touch delica lancets - patietn checks once a day, # 1 EA, 5 Refill(s), Type 2 diabetes mellitus Start: 03-02-2019 See Instructions , EA=BOX of 100 DM E11.9 one touch ultra blue test strips - patient checks once a day, # 1 EA, 3 Refill(s), Pharmacy: [facility]/pharmacy #[id number], Type 2 diabetes mellitus, 171, cm, 10/09/23 8:54:00 EDT, Height, 71.9, kg, 10/09/23 8:54:00 EDT, Dosing Weight Start: 10-09-2023 See Instructions , One touch delica lancets - patietn checks once a day, # 1 EA, 5 Refill(s), Type 2 diabetes mellitus Start: 03-02-2019 See Instructions , EA=BOX of 100 DM E11.9 one touch ultra blue test strips - patient checks once a day, # 1 EA, 3 Refill(s), Pharmacy: [facility]/pharmacy #[id number], Type 2 diabetes mellitus, 171, cm, 10/09/23 8:54:00 EDT, Height, 71.9, kg, 10/09/23 8:54:00 EDT, Dosing Weight Start: 10-09-2023 See Instructions , One touch delica lancets - patietn checks once a day, # 1 EA, 5 Refill(s), Type 2 diabetes mellitus Start: 03-02-2019 See Instructions , EA=BOX of 100 DM E11.9 one touch ultra blue test strips - patient checks once a day, # 1 EA, 3 Refill(s), Pharmacy: [facility]/pharmacy #[id number], Type 2 diabetes mellitus, 171, cm, 10/09/23 8:54:00 EDT, Height, 71.9, kg, 10/09/23 8:54:00 EDT, Dosing Weight Start: 10-09-2023 See Instructions , One touch delica lancets - patietn checks once a day, # 1 EA, 5 Refill(s), Type 2 diabetes mellitus Start: 03-02-2019 See Instructions , EA=BOX of 100 DM E11.9 one touch ultra blue test strips - patient checks once a day, # 1 EA, 3 Refill(s), Pharmacy: [facility]/pharmacy #[id number], Type 2 diabetes mellitus, 171, cm, 10/09/23 8:54:00 EDT, Height, 71.9, kg, 10/09/23 8:54:00 EDT, Dosing Weight Start: 10-09-2023 See Instructions , One touch delica lancets - patietn checks once a day, # 1 EA, 5 Refill(s), Type 2 diabetes mellitus Start: 03-02-2019 See Instructions , EA=BOX of 100 DM E11.9 one touch ultra blue test strips - patient checks once a day, # 1 EA, 3 Refill(s), Pharmacy: [facility]/pharmacy #[id number], Type 2 diabetes mellitus, 171, cm, 10/09/23 8:54:00 EDT, Height, 71.9, kg, 10/09/23 8:54:00 EDT, Dosing Weight Start: 10-09-2023 See Instructions , One touch delica lancets - patietn checks once a day, # 1 EA, 5 Refill(s), Type 2 diabetes mellitus Start: 03-02-2019 See Instructions , EA=BOX of 100 DM E11.9 one touch ultra blue test strips - patient checks once a day, # 1 EA, 3 Refill(s), Pharmacy: [facility]/pharmacy #[id number], Type 2 diabetes mellitus, 171, cm, 10/09/23 8:54:00 EDT, Height, 71.9, kg, 10/09/23 8:54:00 EDT, Dosing Weight Start: 10-09-2023 See Instructions , One touch delica lancets - patietn checks once a day, # 1 EA, 5 Refill(s), Type 2 diabetes mellitus Start: 03-02-2019 See Instructions , EA=BOX of 100 DM E11.9 one touch ultra blue test strips - patient checks once a day, # 1 EA, 3 Refill(s), Pharmacy: [facility]/pharmacy #[id number], Type 2 diabetes mellitus, 171, cm, 10/09/23 8:54:00 EDT, Height, 71.9, kg, 10/09/23 8:54:00 EDT, Dosing Weight Start: 10-09-2023 See Instructions , One touch delica lancets - patietn checks once a day, # 1 EA, 5 Refill(s), Type 2 diabetes mellitus Start: 03-02-2019 See Instructions , EA=BOX of 100 DM E11.9 one touch ultra blue test strips - patient checks once a day, # 1 EA, 3 Refill(s), Pharmacy: [facility]/pharmacy #[id number], Type 2 diabetes mellitus, 171, cm, 10/09/23 8:54:00 EDT, Height, 71.9, kg, 10/09/23 8:54:00 EDT, Dosing Weight Start: 10-09-2023 See Instructions , One touch delica lancets - patietn checks once a day, # 1 EA, 5 Refill(s), Type 2 diabetes mellitus Start: 03-02-2019 See Instructions , EA=BOX of 100 DM E11.9 one touch ultra blue test strips - patient checks once a day, # 1 EA, 3 Refill(s), Pharmacy: [facility]/pharmacy #[id number], Type 2 diabetes mellitus, 171, cm, 10/09/23 8:54:00 EDT, Height, 71.9, kg, 10/09/23 8:54:00 EDT, Dosing Weight Start: 10-09-2023 See Instructions , One touch delica lancets - patietn checks once a day, # 1 EA, 5 Refill(s), Type 2 diabetes mellitus Start: 03-02-2019 See Instructions , EA=BOX of 100 DM E11.9 one touch ultra blue test strips - patient checks once a day, # 1 EA, 3 Refill(s), Pharmacy: [facility]/pharmacy #[id number], Type 2 diabetes mellitus, 171, cm, 10/09/23 8:54:00 EDT, Height, 71.9, kg, 10/09/23 8:54:00 EDT, Dosing Weight Start: 10-09-2023 See Instructions , One touch delica lancets - patietn checks once a day, # 1 EA, 5 Refill(s), Type 2 diabetes mellitus Start: 03-02-2019 See Instructions , EA=BOX of 100 DM E11.9 one touch ultra blue test strips - patient checks once a day, # 1 EA, 3 Refill(s), Pharmacy: [facility]/pharmacy #[id number], Type 2 diabetes mellitus, 171, cm, 10/09/23 8:54:00 EDT, Height, 71.9, kg, 10/09/23 8:54:00 EDT, Dosing Weight Start: 10-09-2023 See Instructions , One touch delica lancets - patietn checks once a day, # 1 EA, 5 Refill(s), Type 2 diabetes mellitus Start: 03-02-2019 Goals Date Patient Goal Desired Activity /State Functional Status Date Assessment Result Facility 11-13-2024 Functional status Chair [facility] Work Phone: 11-12-2024 Functional status Standard Walker [facility] Work Phone: 02-20-2024 Functional Status Standard Safet y ID band on, Call device within reach, Bed in low position, Wheels locked, Upper/Half-Length side-rails up, Bedside Cart Locked, Safety level maintained [facility] Mental Status Date Assessment Result Facility 11-13-2024 Cognitive function Voice/Name [facility] Work Phone: 11-12-2024 Cognitive function Appropriate;Yadira acuna [facility] Work Phone: 02-20-2024 Mental Status Orientation Oriented x 4 [facility] Clinical Notes 02-20-2024 to 11-11-2024 Note Date & Type Note Facility 11-11-2024 Discharge summary Note Date/Time November 11, 2024 3:49p m [facility] Medical Records Department [address] [place] [address] Discharge Summary 11/11/24 1542 MR#: [id number] Acct: [id number] Name: TIM ADAMSON Rep #:[id number] : 1940 83 From: Juan Reed MD PCP: VALENTIN Marrufo Status:ADM IN Location: [facility] TCU13-1 Providers Date of Admission: 10/29/24 Primary Care Physician: VALENTIN Marrufo Reason For Visit: CARDIAC ARREST/RESP FAILURE Diagnosis Discharge Diagnosis (1) Debility: Status: Acute Code(s): R53.81 - Other malaise (2) Acute delirium: Status: Acute Code(s): R41.0 - Disorientation, unspecified (3) Hyponatremia: Status: Acute Code(s): E87.1 - Hypo-osmolality and hyponatremia (4) Cardiac arrest: Status: Acute Code(s): I46.9 - Cardiac arrest, cause unspecified (5) Acute respiratory failure with hypoxia: Status: Acute Code(s): J96.01 - Acute respiratory failure with hypoxia (6) Acute heart failure with preserved ejection fraction (HFpEF): Status: Acute Code(s): I50.31 - Acute diastolic (congestive) heart failure (7) Pneumonia: Status: Acute Code(s): J18.9 - Pneumonia, unspecified organism (8) BPH (benign prostatic hyperplasia): Status: Acute Code(s): N40.0 - Benign prostatic hyperplasia without lower urinary tract symptoms (9) Urinary retention: Status: Acute Code(s): R33.9 - Retention of urine, unspecified (10) Anxiety: Status: Acute Code(s): F41.9 - Anxiety disorder, unspecified (11) Glaucoma: Status: Acute Code(s): H40.9 - Unspecified glaucoma (12) Type 2 diabetes mellitus with hyperglycemia: Status: Acute Code(s): E11.65 - Type 2 diabetes mellitus with hyperglycemia (13) Essential (primary) hypertension: Status: Acute Code(s): I10 - Essential (primary) hypertension (14) Hyperlipidemia, unspecified: Status: Acute Code(s): E78.5 - Hyperlipidemia, unspecified (15) Iron deficiency anemia: Status: Acute Code(s): D50.9 - Iron deficiency anemia, unspecified (16) Vascular dementia: Status: Acute Code(s): F01.50 - Vascular dementia, unspecified severity, without behavioral disturbance, psychotic disturbance, mood disturbance, and anxiety Plan 83 year old male with below past medical history hospitalized for acute delirium2/2 hyponatremia, opioid use, complicated by cardiac arrest, acute HFpEF, urinary retention, acute respiratory failure with hypoxia, pneumonia, admitted to TCU with debility, here for rehabilitation, strengthening, prior to dischargehome with . * Debility - PT/OT. * Pain - Tylenol 1000mg q6 prn pain (1-10). * Bowel - senna/colace 1 tablet bid, Magnesium citrate 300mL daily prn. * Adult immunization - Administer pneumonia vaccine, covid vaccine, flu vaccine as appropriate. * DVT prophylaxis - Lovenox 40mg sc daily. * Coronary artery disease - Aspirin 81mg daily. * Hyperlipidemia - Atorvastatin 40mg qhs. * Vitamin D deficiency - D3 50mcg daily. * Allergic rhinitis - Flonase nasal spray 1 spray nasal daily. * Glaucoma - Latanoprost 1gtt ou qhs, Timolol 1gtt ou bid. * Diabetes Mellitus II - Metformin XR 1000mg bidcm, Pioglitazone 30mg daily. * BPH/Urinary retention - Tamsulosin 0.4mg daily, indwelling reilly catheter, voiding trial in 1-2 weeks. The following psychotropic medication was present on admission: Sertraline 25mg daily. Psychotropic medication therapy is indicated for a diagnosis of: Major Depression. Based on my clinical evaluation, continuation of the medication is necessary at this time. Gradual dose reduction plan (select one): ____ GDR will be attempted. Will monitor patient symptoms and behaviors in response to GDR. __x__ GRD contraindicated. 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 The following psychotropic medication was present on admission: Trazodone 50mg qhs. Psychotropic medication therapy is indicated for a diagnosis of: Insomnia. Based on my clinical evaluation, continuation of the medication is necessary at this time. Gradual dose reduction plan (select one): ____ GDR will be attempted. Will monitor patient symptoms and behaviors in response to GDR. __x__ GRD contraindicated. Reason contraindicated: Medications at Discharge Home Medications aspirin 81 mg tablet,delayed release 81 mg PO DAILY atherosclerosis 10/29/24 atorvastatin 40 mg tablet 40 mg PO DAILY hyperlipidemia 10/29/24 cholecalciferol (vitamin D3) 25 mcg (1,000 unit) capsule 2,000 unit PO DAILY supplement 10/29/24 fluticasone propionate 50 mcg/actuation nasal spray,suspension (Allergy Relief (fluticasone)) 1 spray intranasal DAILY allergy symptoms 10/29/24 latanoprost 0.005 % eye drops 1 drp ophthalmic (eye) QHS eye health 10/29/24 pioglitazone 30 mg tablet 30 mg PO DAILY diabetes 10/29/24 sertraline 25 mg tablet 25 mg PO DAILY anxiety 10/29/24 timolol maleate 0.5 % eye drops 1 drp ophthalmic (eye) BID eye health 10/29/24 trazodone 50 mg tablet 50 mg PO QHS sleep 10/29/24 acetaminophen 500 mg tablet 1,000 mg (2 x 500 mg) PO Q8 #0 tabs 11/11/24 metformin 500 mg tablet,extended release 24 hr 1,000 mg (2 x 500 mg) PO BIDCM #0tabs 11/11/24 tamsulosin 0.4 mg capsule 0.8 mg (2 x 0.4 mg) PO DAILY 30 days #60 caps 11/11/24 Hospital Course Operations None Procedures None Summary of Care Provided Minutes Spent on Discharge: 35 Hospital Course: 83 year old male with below past medical history hospitalized for acute delirium2/2 hyponatremia, opioid use, complicated by cardiac arrest, acute HFpEF, urinary retention, acute respiratory failure with hypoxia, pneumonia, admitted to TCU with debility, here for rehabilitation, strengthening, prior to dischargehome with . Marcelo failed voiding trials, follow up with Urology. Discharge to [facility] 11/13/2024, [facility] PT/OT/ST, FWW. FWW: Patient is unsafe to use a cane and requires a walker for ambulation in the home and the community. Physical Exam Const alert General Appearance: cooperative HEENT normocephalic Eyes PERRL and EOMs intact bilaterally Neck supple, no JVD and no carotid bruits Resp normal respiratory effort, normal air movement and clear to auscultation bilaterally Cardio regular rate and regular rhythm GI normal to inspection, nondistended, normoactive bowel sounds, non-tender and non-distended Bladder / Kidney Exam: catheter in place urethral Extremity normal capillary refill General Extremity: Negative for edema Skin no rashes or lesions noted General Skin Exam: no breakdown Psych affect normal Appearance: appropriate Weight / BMI Weight Weight: 67.993 kg Body Mass Index (BMI) 23.5 ABG / Lab / Microbiology Data 11/06/24 05:35 11/06/24 05:35 Laboratory: Laboratory Results - last 24 hr 11/11/24 06:04: POC Glucose 124 H Microbiology: Microbiology 11/03/24 17:28 Urine Catheter - Reilly Urine Culture - Final Culture exhibits no growth. D/C Instructions Discharge Diet: No restrictions Discharge Activity: Return to Normal Activity, May Shower and Use Walker Weight Bearing Status: Weight bearing as tolerated Call your doctor if you observe: Fever of 101 or Higher, Inability to urinate, Inability to have a bowel movement, Shortness of breath, Dizziness, Fainting spells, Swelling in the ankles, Chest pain and Uncontrolled pain DC O2, CPAP, BIPAP Needs Home O2 Discharge instructions: No Additional Instructions: Discharge to [facility] 11/13/2024, [facility] PT/OT/ST, FWW. FWW: Patient is unsafe to use a cane and requires a walker for ambulation in the home and the community. Please Follow Up With: Raulito Anderson MD When: 4 weeks. Meaningful Use Info Meaningful Use Meaningful Use Diagnoses (Choose all that apply): None applicable Ischemic Stroke Statin Dosing Therapy Reference: STATIN DOSE THERAPY REFERENCE: * Patients > 75 years receive moderate or high dose statin therapy. * Patients 75 years or YOUNGER should receive HIGH intensity statin dose unless contraindicated. You will be required to document reason for non-treatment if statin daily dose does not meet guidelines. HIGH DOSE STATIN THERAPY DAILY Atorvastatin > than or = to 40 mg Rosuvastatin > than or = to 20 mg Amlodipine + Atorvastatin > than or = to 2.5/40 mg Ezetimibe + Simvastatin 10/80 mg Simvastatin 80mg Discharge Plan Admission Admit Date/Time: 10/29/24 15:48 Primary Reason for Your Visit: Debility. Attending Provider: Juna Reed Chi Primary Care Provider: Rashmi Price NP Instructions Additional Instructions / Restrictions: Discharge to [facility] 11/13/2024, [facility] PT/OT/ST, FWW. FWW: Patient is unsafe to use a cane and requires a walker for ambulation in the home and the community. Discharge Orders/Prescriptions Prescriptions: New acetaminophen 500 mg Tablet 1,000 mg PO Q8 Qty: 0 0RF tamsulosin 0.4 mg Capsule 0.8 mg PO DAILY 30 Days Qty: 60 0RF metformin 500 mg Tablet Extended Release 24 Hr 1,000 mg PO BIDCM Qty: 0 0RF Continued trazodone 50 mg tablet 50 mg PO QHS aspirin 81 mg tablet,delayed release (DR/EC) 81 mg PO DAILY atorvastatin 40 mg tablet 40 mg PO DAILY cholecalciferol (vitamin D3) 25 mcg (1,000 unit) capsule 2,000 unit PO DAILY fluticasone propionate [Allergy Relief (fluticasone)] 50 mcg/actuation spray,suspension 1 spray intranasal DAILY Rx Instructions: administer into each nostril latanoprost 0.005 % drops 1 drp ophthalmic (eye) QHS pioglitazone 30 mg tablet 30 mg PO DAILY sertraline 25 mg tablet 25 mg PO DAILY timolol maleate 0.5 % drops 1 drp ophthalmic (eye) BID Discontinued atorvastatin 80 MG tablet 80 mg PO QHS metformin 1,000 MG tablet 1,000 mg PO QHS lisinopril 5 MG tablet 5 mg PO QHS docusate sodium [Colace] 100 mg capsule 100 mg PO BID tamsulosin [Flomax] 0.4 mg capsule 0.4 mg PO DAILY metformin 500 mg tablet extended release 24 hr 1,000 mg PO BID multivitamin [Daily Multi-Vitamin] Tablet 1 tab PO DAILY Referrals / Follow Up: Rashmi Price NP, NP-C [Primary Care Provider] - Disposition Disposition (needs filled in before D/C Order can be placed): Assisted Living 11/11/24 1549 <Electronically signed by Juan Reed MD> Cosigner Signature (if applicable): CC: VALENTIN Price; Dr. Juan Reed MD~ Signed [facility] Work Phone: [phone]) 628-412207-09-2025 Discharge summary [facility] Medical Records Department [address] [place] [id number] Discharge Summary 11/11/24 1542 MR#: [id number] Acct: [id number] Name: TIM ADAMSON Rep #:[id number] : [id number] 83 From: Juan Reed MD PCP: VALENTIN Marrufo Status:ADM IN Location: [facility] TCU13-1 Providers Date of Admission: 10/29/24 Primary Care Physician: VALENTIN Marrufo Reason For Visit: CARDIAC ARREST/RESP FAILURE Diagnosis Discharge Diagnosis (1) Debility: Status: Acute Code(s): R53.81 - Other malaise (2) Acute delirium: Status: Acute Code(s): R41.0 - Disorientation, unspecified (3) Hyponatremia: Status: Acute Code(s): E87.1 - Hypo-osmolality and hyponatremia (4) Cardiac arrest: Status: Acute Code(s): I46.9 - Cardiac arrest, cause unspecified (5) Acute respiratory failure with hypoxia: Status: Acute Code(s): J96.01 - Acute respiratory failure with hypoxia (6) Acute heart failure with preserved ejection fraction (HFpEF): Status: Acute Code(s): I50.31 - Acute diastolic (congestive) heart failure (7) Pneumonia: Status: Acute Code(s): J18.9 - Pneumonia, unspecified organism (8) BPH (benign prostatic hyperplasia): Status: Acute Code(s): N40.0 - Benign prostatic hyperplasia without lower urinary tract symptoms (9) Urinary retention: Status: Acute Code(s): R33.9 - Retention of urine, unspecified (10) Anxiety: Status: Acute Code(s): F41.9 - Anxiety disorder, unspecified (11) Glaucoma: Status: Acute Code(s): H40.9 - Unspecified glaucoma (12) Type 2 diabetes mellitus with hyperglycemia: Status: Acute Code(s): E11.65 - Type 2 diabetes mellitus with hyperglycemia (13) Essential (primary) hypertension: Status: Acute Code(s): I10 - Essential (primary) hypertension (14) Hyperlipidemia, unspecified: Status: Acute Code(s): E78.5 - Hyperlipidemia, unspecified (15) Iron deficiency anemia: Status: Acute Code(s): D50.9 - Iron deficiency anemia, unspecified (16) Vascular dementia: Status: Acute Code(s): F01.50 - Vascular dementia, unspecified severity, without behavioral disturbance, psychotic disturbance, mood disturbance, and anxiety Plan 83 year old male with below past medical history hospitalized for acute delirium2/2 hyponatremia, opioid use, complicated by cardiac arrest, acute HFpEF, urinary retention, acute respiratory failure with hypoxia, pneumonia, admitted to TCU with debility, here for rehabilitation, strengthening, prior to dischargehome with . * Debility - PT/OT. * Pain - Tylenol 1000mg q6 prn pain (1-10). * Bowel - senna/colace 1 tablet bid, Magnesium citrate 300mL daily prn. * Adult immunization - Administer pneumonia vaccine, covid vaccine, flu vaccine as appropriate. * DVT prophylaxis - Lovenox 40mg sc daily. * Coronary artery disease - Aspirin 81mg daily. * Hyperlipidemia - Atorvastatin 40mg qhs. * Vitamin D deficiency - D3 50mcg daily. * Allergic rhinitis - Flonase nasal spray 1 spray nasal daily. * Glaucoma - Latanoprost 1gtt ou qhs, Timolol 1gtt ou bid. * Diabetes Mellitus II - Metformin XR 1000mg bidcm, Pioglitazone 30mg daily. * BPH/Urinary retention - Tamsulosin 0.4mg daily, indwelling reilly catheter, voiding trial in 1-2 weeks. The following psychotropic medication was present on admission: Sertraline 25mg daily. Psychotropic medication therapy is indicated for a diagnosis of: Major Depression. Based on my clinical evaluation, continuation of the medication is necessary at this time. Gradual dose reduction plan (select one): ____ GDR will be attempted. Will monitor patient symptoms and behaviors in response to GDR. __x__ GRD contraindicated. 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 The following psychotropic medication was present on admission: Trazodone 50mg qhs. Psychotropic medication therapy is indicated for a diagnosis of: Insomnia. Based on my clinical evaluation, continuation of the medication is necessary at this time. Gradual dose reduction plan (select one): ____ GDR will be attempted. Will monitor patient symptoms and behaviors in response to GDR. __x__ GRD contraindicated. Reason contraindicated: Medications at Discharge Home Medications aspirin 81 mg tablet,delayed release 81 mg PO DAILY atherosclerosis 10/29/24 atorvastatin 40 mg tablet 40 mg PO DAILY hyperlipidemia 10/29/24 cholecalciferol (vitamin D3) 25 mcg (1,000 unit) capsule 2,000 unit PO DAILY supplement 10/29/24 fluticasone propionate 50 mcg/actuation nasal spray,suspension (Allergy Relief (fluticasone)) 1 spray intranasal DAILY allergy symptoms 10/29/24 latanoprost 0.005 % eye drops 1 drp ophthalmic (eye) QHS eye health 10/29/24 pioglitazone 30 mg tablet 30 mg PO DAILY diabetes 10/29/24 sertraline 25 mg tablet 25 mg PO DAILY anxiety 10/29/24 timolol maleate 0.5 % eye drops 1 drp ophthalmic (eye) BID eye health 10/29/24 trazodone 50 mg tablet 50 mg PO QHS sleep 10/29/24 acetaminophen 500 mg tablet 1,000 mg (2 x 500 mg) PO Q8 #0 tabs 11/11/24 metformin 500 mg tablet,extended release 24 hr 1,000 mg (2 x 500 mg) PO BIDCM #0tabs 11/11/24 tamsulosin 0.4 mg capsule 0.8 mg (2 x 0.4 mg) PO DAILY 30 days #60 caps 11/11/24 Hospital Course Operations None Procedures None Summary of Care Provided Minutes Spent on Discharge: 35 Hospital Course: 83 year old male with below past medical history hospitalized for acute delirium2/2 hyponatremia, opioid use, complicated by cardiac arrest, acute HFpEF, urinary retention, acute respiratory failure with hypoxia, pneumonia, admitted to TCU with debility, here for rehabilitation, strengthening, prior to dischargehome with . Marcelo failed voiding trials, follow up with Urology. Discharge to [facility] 11/13/2024, [facility] PT/OT/ST, FWW. FWW: Patient is unsafe to use a cane and requires a walker for ambulation in the home and the community. Physical Exam Const alert General Appearance: cooperative HEENT normocephalic Eyes PERRL and EOMs intact bilaterally Neck supple, no JVD and no carotid bruits Resp normal respiratory effort, normal air movement and clear to auscultation bilaterally Cardio regular rate and regular rhythm GI normal to inspection, nondistended, normoactive bowel sounds, non-tender and non-distended Bladder / Kidney Exam: catheter in place urethral Extremity normal capillary refill General Extremity: Negative for edema Skin no rashes or lesions noted General Skin Exam: no breakdown Psych affect normal Appearance: appropriate Weight / BMI Weight Weight: 67.993 kg Body Mass Index (BMI) 23.5 ABG / Lab / Microbiology Data 11/06/24 05:35 11/06/24 05:35 Laboratory: Laboratory Results - last 24 hr 11/11/24 06:04: POC Glucose 124 H Microbiology: Microbiology 11/03/24 17:28 Urine Catheter - Reilly Urine Culture - Final Culture exhibits no growth. D/C Instructions Discharge Diet: No restrictions Discharge Activity: Return to Normal Activity, May Shower and Use Walker Weight Bearing Status: Weight bearing as tolerated Call your doctor if you observe: Fever of 101 or Higher, Inability to urinate, Inability to have a bowel movement, Shortness of breath, Dizziness, Fainting spells, Swelling in the ankles, Chest pain and Uncontrolled pain DC O2, CPAP, BIPAP Needs Home O2 Discharge instructions: No Additional Instructions: Discharge to [facility] 11/13/2024, [facility] PT/OT/ST, FWW. FWW: Patient is unsafe to use a cane and requires a walker for ambulation in the home and the community. Please Follow Up With: Raulito Anderson MD When: 4 weeks. Meaningful Use Info Meaningful Use Meaningful Use Diagnoses (Choose all that apply): None applicable Ischemic Stroke Statin Dosing Therapy Reference: STATIN DOSE THERAPY REFERENCE: * Patients > 75 years receive moderate or high dose statin therapy. * Patients 75 years or YOUNGER should receive HIGH intensity statin dose unless contraindicated. You will be required to document reason for non-treatment if statin daily dose does not meet guidelines. HIGH DOSE STATIN THERAPY DAILY Atorvastatin > than or = to 40 mg Rosuvastatin > than or = to 20 mg Amlodipine + Atorvastatin > than or = to 2.5/40 mg Ezetimibe + Simvastatin 10/80 mg Simvastatin 80mg Discharge Plan Admission Admit Date/Time: 10/29/24 15:48 Primary Reason for Your Visit: Debility. Attending Provider: Juan Reed Chi Primary Care Provider: Rashmi Price ELECTRICAL TEST TECHNICIAN Instructions Additional Instructions / Restrictions: Discharge to [facility] 11/13/2024, [facility] PT/OT/ST, FWW. FWW: Patient is unsafe to use a cane and requires a walker for ambulation in the home and the community. Discharge Orders/Prescriptions Prescriptions: New acetaminophen 500 mg Tablet 1,000 mg PO Q8 Qty: 0 0RF tamsulosin 0.4 mg Capsule 0.8 mg PO DAILY 30 Days Qty: 60 0RF metformin 500 mg Tablet Extended Release 24 Hr 1,000 mg PO BIDCM Qty: 0 0RF Continued trazodone 50 mg tablet 50 mg PO QHS aspirin 81 mg tablet,delayed release (DR/EC) 81 mg PO DAILY atorvastatin 40 mg tablet 40 mg PO DAILY cholecalciferol (vitamin D3) 25 mcg (1,000 unit) capsule 2,000 unit PO DAILY fluticasone propionate [Allergy Relief (fluticasone)] 50 mcg/actuation spray,suspension 1 spray intranasal DAILY Rx Instructions: administer into each nostril latanoprost 0.005 % drops 1 drp ophthalmic (eye) QHS pioglitazone 30 mg tablet 30 mg PO DAILY sertraline 25 mg tablet 25 mg PO DAILY timolol maleate 0.5 % drops 1 drp ophthalmic (eye) BID Discontinued atorvastatin 80 MG tablet 80 mg PO QHS metformin 1,000 MG tablet 1,000 mg PO QHS lisinopril 5 MG tablet 5 mg PO QHS docusate sodium [Colace] 100 mg capsule 100 mg PO BID tamsulosin [Flomax] 0.4 mg capsule 0.4 mg PO DAILY metformin 500 mg tablet extended release 24 hr 1,000 mg PO BID multivitamin [Daily Multi-Vitamin] Tablet 1 tab PO DAILY Referrals / Follow Up: Rashmi Price NP, NP-C [Primary Care Provider] - Disposition Disposition (needs filled in before D/C Order can be placed): Assisted Living 11/11/24 1549 Cosigner Signature (if applicable): CC: VALENTIN Price; Dr. Juan Reed MD~ Signed [facility]07-09-2025 [facility] Medical Records Department [address] [place] [address] Discharge Summary 11/11/24 1542 MR#: [id number] Acct: [id number] Name: TIM ADAMSON Rep #: [id number] : 1940 83 From: Juan Reed MD PCP: VALENTIN Marrufo Status:ADM IN Location: [place] [id number]- Providers Date of Admission: 10/29/24 Primary Care Physician: VALENTIN Marrufo Reason For Visit: CARDIAC ARREST/RESP FAILURE Diagnosis Discharge Diagnosis (1) Debility: Status: Acute Code(s): R53.81 - Other malaise (2) Acute delirium: Status: Acute Code(s): R41.0 - Disorientation, unspecified (3) Hyponatremia: Status: Acute Code(s): E87.1 - Hypo-osmolality and hyponatremia (4) Cardiac arrest: Status: Acute Code(s): I46.9 - Cardiac arrest, cause unspecified (5) Acute respiratory failure with hypoxia: Status: Acute Code(s): J96.01 - Acute respiratory failure with hypoxia (6) Acute heart failure with preserved ejection fraction (HFpEF): Status: Acute Code(s): I50.31 - Acute diastolic (congestive) heart failure (7) Pneumonia: Status: Acute Code(s): J18.9 - Pneumonia, unspecified organism (8) BPH (benign prostatic hyperplasia): Status: Acute Code(s): N40.0 - Benign prostatic hyperplasia without lower urinary tract symptoms (9) Urinary retention: Status: Acute Code(s): R33.9 - Retention of urine, unspecified (10) Anxiety: Status: Acute Code(s): F41.9 - Anxiety disorder, unspecified (11) Glaucoma: Status: Acute Code(s): H40.9 - Unspecified glaucoma (12) Type 2 diabetes mellitus with hyperglycemia: Status: Acute Code(s): E11.65 - Type 2 diabetes mellitus with hyperglycemia (13) Essential (primary) hypertension: Status: Acute Code(s): I10 - Essential (primary) hypertension (14) Hyperlipidemia, unspecified: Status: Acute Code(s): E78.5 - Hyperlipidemia, unspecified (15) Iron deficiency anemia: Status: Acute Code(s): D50.9 - Iron deficiency anemia, unspecified (16) Vascular dementia: Status: Acute Code(s): F01.50 - Vascular dementia, unspecified severity, without behavioral disturbance, psychotic disturbance, mood disturbance, and anxiety Plan 83 year old male with below past medical history hospitalized for acute delirium 2/2 hyponatremia, opioid use, complicated by cardiac arrest, acute HFpEF, urinary retention, acute respiratory failure with hypoxia, pneumonia, admitted to TCU with debility, here for rehabilitation, strengthening, prior to discharge home with . * Debility - PT/OT. * Pain - Tylenol 1000mg q6 prn pain (1-10). * Bowel - senna/colace 1 tablet bid, Magnesium citrate 300mL daily prn. * Adult immunization - Administer pneumonia vaccine, covid vaccine, flu vaccine as appropriate. * DVT prophylaxis - Lovenox 40mg sc daily. * Coronary artery disease - Aspirin 81mg daily. * Hyperlipidemia - Atorvastatin 40mg qhs. * Vitamin D deficiency - D3 50mcg daily. * Allergic rhinitis - Flonase nasal spray 1 spray nasal daily. * Glaucoma - Latanoprost 1gtt ou qhs, Timolol 1gtt ou bid. * Diabetes Mellitus II - Metformin XR 1000mg bidcm, Pioglitazone 30mg daily. * BPH/Urinary retention - Tamsulosin 0.4mg daily, indwelling reilly catheter, voiding trial in 1-2 weeks. The following psychotropic medication was present on admission: Sertraline 25mg daily. Psychotropic medication therapy is indicated for a diagnosis of: Major Depression. Based on my clinical evaluation, continuation of the medication is necessary at this time. Gradual dose reduction plan (select one): ____ GDR will be attempted. Will monitor patient symptoms and behaviors in response to GDR. __x__ GRD contraindicated. 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 The following psychotropic medication was present on admission: Trazodone 50mg qhs. Psychotropic medication therapy is indicated for a diagnosis of: Insomnia. Based on my clinical evaluation, continuation of the medication is necessary at this time. Gradual dose reduction plan (select one): ____ GDR will be attempted. Will monitor patient symptoms and behaviors in response to GDR. __x__ GRD contraindicated. Reason contraindicated: Medications at Discharge Home Medications aspirin 81 mg tablet,delayed release 81 mg PO DAILY atherosclerosis 10/29/24 atorvastatin 40 mg tablet 40 mg PO DAILY hyperlipidemia 10/29/24 cholecalciferol (vitamin D3) 25 mcg (1,000 unit) capsule 2,000 unit PO DAILY supplement 10/29/24 fluticasone propionate 50 mcg/actuation nasal spray,suspension (Allergy Relief (fluticasone)) 1 spray intranasal DAILY allergy symptoms 10/29/24 latanoprost 0.005 % eye drops 1 drp ophthalmic (eye) QHS eye health 10/29/24 pioglitazone 30 mg tablet 30 mg PO DAILY diabetes 10/29/24 sertraline 25 mg tablet 25 mg PO DAILY anxiety 10/29/24 timolol maleate 0.5 % eye drops 1 drp ophthalmic (eye) BID eye he (more content not included)...[facility]07-02-2025 Radiology Diagnostic study note [facility] Imaging Services [address] [place] [address] Chest PA and Lateral MR#: [id number] Acct: [id number] Name: TIM ADAMSON Rep #: [id number] : 1940 M 83 From: Mateo Isaac MD PCP: VALENTIN Marrufo Status: ADM IN Study:Chest PA and Lateral Date of Exam: 11/04/24 Exam# [id number] Ordering Dr: Juan Reed MD PROCEDURE: CHEST PA AND LATERAL 11/04/2024 REASON FOR EXAM: COUGH. TECHNIQUE: CHEST PA AND LATERAL COMPARISON: None. FINDINGS: The heart is enlarged. Left basilar linear opacity favoring scar or atelectasis. Developing infiltrate is possible. Trace bilateral pleural effusions. No pneumothorax. RAD/Chest PA and Lateral IMPRESSION: As above. Reading Location: [id number] CC: VALENTIN Price; Dr. Juan Reed MD ~ Drilling Superintendent: Signed [facility]07-02-2025 History and physical note Author Juan Reed [facility] Note Date/Time November 04, 2024 7:31a m [facility] Medical Records Department [address] [place] [address] History & Physical Exam 10/29/24 1909 MR#: [id number] Acct: [id number] Name: TIM ADAMSON Rep #:[id number] : 1940 83 From: Juan Reed MD PCP: VALENTIN Marrufo Status:ADM IN Location: TCU [place] [address] HPI - General General Date of Admission: 10/29/24 Date of Service: 10/29/24 Chief Complaint: Here for rehabilitation. HPI Narrative TIM ADAMSON, is a 83 Male who presents with followin10/20/2024 Admit to [facility]. Recent fall with rib fracture. Acute delirium 2/2 hyponatremia from starting Sertraline recently AND taking 's oxycodone. 10/21/2024 CODE BLUE 2/2 vasovagal with urinary retention, transferred to MICU after ROSC after 1 round of CPR. Neurology consulted for mental status. 10/21/2024 MRI brain negative for stroke, showed chronic vascular changes. Possible vascular dementia. Transferred out of MICU. Mild to moderate HFpEF 2/2 cardiac arrest and IV fluid use to improve hyponatremia. Lasix 20mg iv q6 started for diuresis. Urology recommended Tamsulosin, indwelling reilly catheter for 1-2 weeks bladder rest for urinary retention. 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 BiPAP applied and transferred to MICU. Pulsox improved to mid 90's on BIPAP with FiO2 85%, intubation held. Euvolemic. Echo shows moderate to severe aortic stenosis. 10/28/2024 Increase oxygen demand overnight, oxygen 8 liters, pulsox 94%. Continue incentive spirometry, wean oxygen as tolerated. PT/OT SNF. 10/29/2024 Admit to TCU with debility, here for rehabilitation, strengthening, prior to discharge home with . [facility] Medical History (Updated 10/29/24 @ 19:[address] Juan Reed MD) Vascular dementia Iron deficiency anemia Hyperlipidemia, unspecified Essential (primary) hypertension Type 2 diabetes mellitus with hyperglycemia Glaucoma Anxiety Urinary retention BPH (benign prostatic hyperplasia) Pneumonia Acute heart failure with preserved ejection fraction (HFpEF) Acute respiratory failure with hypoxia Cardiac arrest Hyponatremia Acute delirium Debility Home Medications ?Medication ?Instructions ?Recorded ?Last Taken ?Type atorvastatin 80 mg tablet 80 mg PO QHS cholesterol 10/22 Unknown History lisinopril 5 mg tablet 5 mg PO QHS kidneys 03/11/19 Unknown History metformin 1,000 mg tablet 1,000 mg PO QHS diabetes 10/22 Unknown History aspirin 81 mg tablet,delayed 81 mg PO DAILY atheroscle rosis 10/29/24 Unknown History release atorvastatin 40 mg tablet 40 mg PO DAILY hyperlipidemi a 10/29/24 Unknown History cholecalciferol (vitamin D3) 25 2,000 unit PO DAILY bear pplement 10/29/24 Unknown History mcg (1,000 unit) capsule docusate sodium 100 mg capsule 100 mg PO BID constipat ion 10/29/24 Unknown History (Colace) fluticasone propionate 50 1 spray intranasal DAILY all ergy 10/29/24 Unknown History mcg/actuation nasal symptoms spray,suspension (Allergy Relief (fluticasone)) latanoprost 0.005 % eye drops 1 drp ophthalmic (eye) Q HS eye 10/29/24 Unknown History health metformin 500 mg tablet,extended 1,000 mg PO BID type 2 diabetes 10/29/24 Unknown History release 24 hr mellitus multivitamin (Daily Multi-Vitamin 1 tab PO DAILY suppl ement 10/29/24 Unknown History tablet) pioglitazone 30 mg tablet 30 mg PO DAILY diabetes 2 10/28 Unknown History sertraline 25 mg tablet 25 mg PO DAILY anxiety 10/29 Unknown History tamsulosin 0.4 mg capsule (Flomax) 0.4 mg PO DAILY pro state 10/29/24 Unknown History timolol maleate 0.5 % eye drops 1 drp ophthalmic (eye) BID eye 10/29/24 Unknown History health trazodone 50 mg tablet 50 mg PO QHS sleep 10/29/24 Unknown History Allergy/AdvReac Type Severity Reaction Status Date / Time No Known Allergies Allergy Verified 03/11/19 14:02 Family History (Updated 10/29/24 @ 19:[address] Juan Reed MD) Daughter Diabetes Mother Hypertension Hyperlipidemia Lung cancer Father Hyperlipidemia Brother Hyperlipidemia Surgical History (Updated 10/29/24 @ 19:[address] Juan Reed MD) History of repair of left rotator cuff History of cholecystectomy Social History (Updated 10/29/24 @ 19:[address] Juan Reed MD) household members: spouse Smoking Status: Never smoker alcohol intake: current alcohol intake frequency: holidays/special occasions only substance use type: does not use ROS Review of Systems ROS Unobtainable: due to encephalopathy and due to mental condition Constitutional Constitutional: Reports weakness; Denies chills, fever(s) or weight gain ENT HEENT: Denies headache(s), nasal congestion or nasal discharge Cardiovascular Cardiovascular: Denies chest pain or palpitations Respiratory/Chest Respiratory/Chest: Denies cough, excessive phlegm production or shortness of breath with exertion Gastrointestinal Gastrointestinal: Denies abdominal pain, nausea or vomiting Genitourinary Genitourinary: Denies dysuria Musculoskeletal Musculoskeletal: Denies joint pain or joint swelling Integumentary Integumentary: Denies rash or wounds Neurologic Neurologic: Denies focal weakness, numbness or tingling Psychiatric Psychiatric: Denies anxiety, auditory hallucinations, depression, homicidal ideation or suicidal ideation Vital Signs Vital Signs Vital Signs: 10/29/24 16:07 10/29/24 16:07 Temperature 96.8 F L Temperature Source Axillary Pulse Rate 86 Pulse Rhythm Regular Pulse Strength Normal (2+) Respiratory Rate 14 Respiratory Effort Normal Non-Labored Respiratory Depth Normal Respiratory Pattern Normal Blood Pressure 140/81 H Blood Pressure Mean 100 Blood Pressure Position Sitting Blood Pressure Location Right Arm Pulse Ox 95 Oxygen Delivery Method Nasal Cannula Nasal Cannula Oxygen Flow Rate (L/min) 3 3 Weight Weight: 66.542 kg Body Mass Index (BMI) 22.9 Physical Exam Const alert General Appearance: cooperative HEENT normocephalic Eyes PERRL and EOMs intact bilaterally Neck supple, no JVD and no carotid bruits Resp normal respiratory effort, normal air movement and clear to auscultation bilaterally Cardio regular rate and regular rhythm GI normal to inspection, nondistended, normoactive bowel sounds, non-tender and non-distended Bladder / Kidney Exam: catheter in place urethral Extremity normal capillary refill General Extremity: Negative for edema Skin no rashes or lesions noted General Skin Exam: no breakdown Psych affect normal Appearance: appropriate Assessment & Plan Assessment/Plan (1) Debility: (2) Acute delirium: (3) Hyponatremia: (4) Cardiac arrest: (5) Acute respiratory failure with hypoxia: (6) Acute heart failure with preserved ejection fraction (HFpEF): (7) Pneumonia: (8) BPH (benign prostatic hyperplasia): (9) Urinary retention: (10) Anxiety: (11) Glaucoma: (12) Type 2 diabetes mellitus with hyperglycemia: (13) Essential (primary) hypertension: (14) Hyperlipidemia, unspecified: (15) Iron deficiency anemia: (16) Vascular dementia: PLAN: Plan 83 year old male with below past medical history hospitalized for acute delirium2/2 hyponatremia, opioid use, complicated by cardiac arrest, acute HFpEF, urinary retention, acute respiratory failure with hypoxia, pneumonia, admitted to TCU with debility, here for rehabilitation, strengthening, prior to dischargehome with . * Debility - PT/OT. * Pain - Tylenol 1000mg q6 prn pain (1-10). * Bowel - senna/colace 1 tablet bid, Magnesium citrate 300mL daily prn. * Adult immunization - Administer pneumonia vaccine, covid vaccine, flu vaccine as appropriate. * DVT prophylaxis - Lovenox 40mg sc daily. * Coronary artery disease - Aspirin 81mg daily. * Hyperlipidemia - Atorvastatin 40mg qhs. * Vitamin D deficiency - D3 50mcg daily. * Allergic rhinitis - Flonase nasal spray 1 spray nasal daily. * Glaucoma - Latanoprost 1gtt ou qhs, Timolol 1gtt ou bid. * Diabetes Mellitus II - Metformin XR 1000mg bidcm, Pioglitazone 30mg daily. * BPH/Urinary retention - Tamsulosin 0.4mg daily, indwelling reilly catheter, voiding trial in 1-2 weeks. The following psychotropic medication was present on admission: Sertraline 25mg daily. Psychotropic medication therapy is indicated for a diagnosis of: Major Depression. Based on my clinical evaluation, continuation of the medication is necessary at this time. Gradual dose reduction plan (select one): ____ GDR will be attempted. Will monitor patient symptoms and behaviors in response to GDR. __x__ GRD contraindicated. 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 The following psychotropic medication was present on admission: Trazodone 50mg qhs. Psychotropic medication therapy is indicated for a diagnosis of: Insomnia. Based on my clinical evaluation, continuation of the medication is necessary at this time. Gradual dose reduction plan (select one): ____ GDR will be attempted. Will monitor patient symptoms and behaviors in response to GDR. __x__ GRD contraindicated. Reason contraindicated: 10/29/241941 <Electronically signed by Juan Reed MD> Cosigner Signature (if applicable): CC: VALENTIN Price; Dr. Juan Reed MD~ Signed ADDENDUM by Dr. Juan Reed MD on 11/04/24 at 0731 Addendum UTI/hematuria - Urinalysis +/-, start Cipro 250mg po bid x 7 days, urine culturepending, stop Lovenox. 11/04/24730<Electronically signed by Juan Reed MD> Cosigner Signature (if applicable): cc: VALENTIN Price; Dr. Juan Reed MD ~* Signed [facility] Work Phone: [phone]) 435-225407-02-2025 History and physical note [facility] Medical Records Department [address] [place] [address] History & Physical Exam 10/29/24 190 MR#: [id number] Acct: [id number] Name: TIM ADAMSON Rep #:[id number] : 1940 83 From: Juan Reed MD PCP: VALENTIN Marrufo Status:ADM IN Location: [id number] - General General Date of Admission: 10/29/24 Date of Service: 10/29/24 Chief Complaint: Here for rehabilitation. HPI Narrative TIM ADAMSON, is a 83 Male who presents with followin10/20/2024 Admit to [facility]. Recent fall with rib fracture. Acute delirium 2/2 hyponatremia from starting Sertraline recently AND taking 's oxycodone. 10/21/2024 CODE BLUE 2/2 vasovagal with urinary retention, transferred to MICU after ROSC after 1 round of CPR. Neurology consulted for mental status. 10/21/2024 MRI brain negative for stroke, showed chronic vascular changes. Possible vascular dementia. Transferred out of MICU. Mild to moderate HFpEF 2/2 cardiac arrest and IV fluid use to improve hyponatremia. Lasix 20mg iv q6 started for diuresis. Urology recommended Tamsulosin, indwelling reilly catheter for 1-2 weeks bladder rest for urinary retention. 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 BiPAP applied and transferred to MICU. Pulsox improved to mid 90's on BIPAP with FiO2 85%, intubation held. Euvolemic. Echo shows moderate to severe aortic stenosis. 10/28/2024 Increase oxygen demand overnight, oxygen 8 liters, pulsox 94%. Continue incentive spirometry, wean oxygen as tolerated. PT/OT SNF. 10/29/2024 Admit to TCU with debility, here for rehabilitation, strengthening, prior to discharge home with . [facility] Medical History (Updated 10/29/24 @ 19:[address] Juan Reed MD) Vascular dementia Iron deficiency anemia Hyperlipidemia, unspecified Essential (primary) hypertension Type 2 diabetes mellitus with hyperglycemia Glaucoma Anxiety Urinary retention BPH (benign prostatic hyperplasia) Pneumonia Acute heart failure with preserved ejection fraction (HFpEF) Acute respiratory failure with hypoxia Cardiac arrest Hyponatremia Acute delirium Debility Home Medications ?Medication ?Instructions ?Recorded ?Last Taken ?Type atorvastatin 80 mg tablet 80 mg PO QHS cholesterol 10/22 Unknown History lisinopril 5 mg tablet 5 mg PO QHS kidneys 03/11/19 Unknown History metformin 1,000 mg tablet 1,000 mg PO QHS diabetes 10/22 Unknown History aspirin 81 mg tablet,delayed 81 mg PO DAILY atheroscle rosis 10/29/24 Unknown History release atorvastatin 40 mg tablet 40 mg PO DAILY hyperlipidemi a 10/29/24 Unknown History cholecalciferol (vitamin D3) 25 2,000 unit PO DAILY bear pplement 10/29/24 Unknown History mcg (1,000 unit) capsule docusate sodium 100 mg capsule 100 mg PO BID constipat ion 10/29/24 Unknown History (Colace) fluticasone propionate 50 1 spray intranasal DAILY all ergy 10/29/24 Unknown History mcg/actuation nasal symptoms spray,suspension (Allergy Relief (fluticasone)) latanoprost 0.005 % eye drops 1 drp ophthalmic (eye) Q HS eye 10/29/24 Unknown History health metformin 500 mg tablet,extended 1,000 mg PO BID type 2 diabetes 10/29/24 Unknown History release 24 hr mellitus multivitamin (Daily Multi-Vitamin 1 tab PO DAILY suppl ement 10/29/24 Unknown History tablet) pioglitazone 30 mg tablet 30 mg PO DAILY diabetes 10/05 10/28 Unknown History sertraline 25 mg tablet 25 mg PO DAILY anxiety 10/29 Unknown History tamsulosin 0.4 mg capsule (Flomax) 0.4 mg PO DAILY pro state 10/29/24 Unknown History timolol maleate 0.5 % eye drops 1 drp ophthalmic (eye) BID eye 10/29/24 Unknown History health trazodone 50 mg tablet 50 mg PO QHS sleep 10/29/24 Unknown History Allergy/AdvReac Type Severity Reaction Status Date / Time No Known Allergies Allergy Verified 03/11/19 14:02 Family History (Updated 10/29/24 @ 19:[address] Juan Reed MD) Daughter Diabetes Mother Hypertension Hyperlipidemia Lung cancer Father Hyperlipidemia Brother Hyperlipidemia Surgical History (Updated 10/29/24 @ 19:[address] Juan Reed MD) History of repair of left rotator cuff History of cholecystectomy Social History (Updated 10/29/24 @ 19:[address] Juan Reed MD) household members: spouse Smoking Status: Never smoker alcohol intake: current alcohol intake frequency: holidays/special occasions only substance use type: does not use ROS Review of Systems ROS Unobtainable: due to encephalopathy and due to mental condition Constitutional Constitutional: Reports weakness; Denies chills, fever(s) or weight gain ENT HEENT: Denies headache(s), nasal congestion or nasal discharge Cardiovascular Cardiovascular: Denies chest pain or palpitations Respiratory/Chest Respiratory/Chest: Denies cough, excessive phlegm production or shortness of breath with exertion Gastrointestinal Gastrointestinal: Denies abdominal pain, nausea or vomiting Genitourinary Genitourinary: Denies dysuria Musculoskeletal Musculoskeletal: Denies joint pain or joint swelling Integumentary Integumentary: Denies rash or wounds Neurologic Neurologic: Denies focal weakness, numbness or tingling Psychiatric Psychiatric: Denies anxiety, auditory hallucinations, depression, homicidal ideation or suicidal ideation Vital Signs Vital Signs Vital Signs: 10/29/24 16:07 10/29/24 16:07 Temperature 96.8 F L Temperature Source Axillary Pulse Rate 86 Pulse Rhythm Regular Pulse Strength Normal (2+) Respiratory Rate 14 Respiratory Effort Normal Non-Labored Respiratory Depth Normal Respiratory Pattern Normal Blood Pressure 140/81 H Blood Pressure Mean 100 Blood Pressure Position Sitting Blood Pressure Location Right Arm Pulse Ox 95 Oxygen Delivery Method Nasal Cannula Nasal Cannula Oxygen Flow Rate (L/min) 3 3 Weight Weight: 66.542 kg Body Mass Index (BMI) 22.9 Physical Exam Const alert General Appearance: cooperative HEENT normocephalic Eyes PERRL and EOMs intact bilaterally Neck supple, no JVD and no carotid bruits Resp normal respiratory effort, normal air movement and clear to auscultation bilaterally Cardio regular rate and regular rhythm GI normal to inspection, nondistended, normoactive bowel sounds, non-tender and non-distended Bladder / Kidney Exam: catheter in place urethral Extremity normal capillary refill General Extremity: Negative for edema Skin no rashes or lesions noted General Skin Exam: no breakdown Psych affect normal Appearance: appropriate Assessment & Plan Assessment/Plan (1) Debility: (2) Acute delirium: (3) Hyponatremia: (4) Cardiac arrest: (5) Acute respiratory failure with hypoxia: (6) Acute heart failure with preserved ejection fraction (HFpEF): (7) Pneumonia: (8) BPH (benign prostatic hyperplasia): (9) Urinary retention: (10) Anxiety: (11) Glaucoma: (12) Type 2 diabetes mellitus with hyperglycemia: (13) Essential (primary) hypertension: (14) Hyperlipidemia, unspecified: (15) Iron deficiency anemia: (16) Vascular dementia: PLAN: Plan 83 year old male with below past medical history hospitalized for acute delirium2/2 hyponatremia, opioid use, complicated by cardiac arrest, acute HFpEF, urinary retention, acute respiratory failure with hypoxia, pneumonia, admitted to TCU with debility, here for rehabilitation, strengthening, prior to dischargehome with . * Debility - PT/OT. * Pain - Tylenol 1000mg q6 prn pain (1-10). * Bowel - senna/colace 1 tablet bid, Magnesium citrate 300mL daily prn. * Adult immunization - Administer pneumonia vaccine, covid vaccine, flu vaccine as appropriate. * DVT prophylaxis - Lovenox 40mg sc daily. * Coronary artery disease - Aspirin 81mg daily. * Hyperlipidemia - Atorvastatin 40mg qhs. * Vitamin D deficiency - D3 50mcg daily. * Allergic rhinitis - Flonase nasal spray 1 spray nasal daily. * Glaucoma - Latanoprost 1gtt ou qhs, Timolol 1gtt ou bid. * Diabetes Mellitus II - Metformin XR 1000mg bidcm, Pioglitazone 30mg daily. * BPH/Urinary retention - Tamsulosin 0.4mg daily, indwelling reilly catheter, voiding trial in 1-2 weeks. The following psychotropic medication was present on admission: Sertraline 25mg daily. Psychotropic medication therapy is indicated for a diagnosis of: Major Depression. Based on my clinical evaluation, continuation of the medication is necessary at this time. Gradual dose reduction plan (select one): ____ GDR will be attempted. Will monitor patient symptoms and behaviors in response to GDR. __x__ GRD contraindicated. 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 The following psychotropic medication was present on admission: Trazodone 50mg qhs. Psychotropic medication therapy is indicated for a diagnosis of: Insomnia. Based on my clinical evaluation, continuation of the medication is necessary at this time. Gradual dose reduction plan (select one): ____ GDR will be attempted. Will monitor patient symptoms and behaviors in response to GDR. __x__ GRD contraindicated. Reason contraindicated: 10/29/241941 Cosigner Signature (if applicable): CC: VALENTIN Price; Dr. Juan Reed MD~ Signed ADDENDUM by Dr. Juan Reed MD on 11/04/24 at 0731 Addendum UTI/hematuria - Urinalysis +/-, start Cipro 250mg po bid x 7 days, urine culturepending, stop Lovenox. 11/04/24 07 Cosigner Signature (if applicable): cc: VALENTIN Price; Dr. Juan Reed MD ~* Signed [facility]06-27-2025 Progress note Author Nimo Fernandez [facility] Note Date/Time October 30, 2024 4:05 pm [facility] Medical Records Department [address] [place] [address] Progress Note - Pharmacy 10/30/24 1533 MR#: [id number] Acct: [id number] Name: TIM ADAMSON Rep #:[id number] : 1940 83 From: Nimo Fernandez PCP: VALENTIN Marrufo Status:ADM IN Location: [place] [address] Documented by User: Nimo Fernandez 10/30/24 16:01 TCU RX Drug Regimen Review Subjective/Objective Subjective/Objective Subjective: TCU Admission. 83 YOM presented to outside hospital with recent rib fractures and delirium. Hospitalized for acute delirium 2/2 hyponatremia, opioiduse, complicated by cardiac arrest, acute HFpEF, urinary retention, acute respiratory failure with hypoxia, pneumonia. Admitted to TCU with debility for strengthening and rehabilitation. Objective: Allergies No Known Allergies Allergy (Verified 03/11/19 14:02) Current Medications Generic Name Dose Route Start Last Admin Trade Name Freq PRN Reason Stop Dose Admin Aspirin 81 mg 10/30/24 08:00 10/30/24 08:13 Aspirin E.C. 81 Mg Tablet PO 81 mg BREAKFAST RAYNA Administration Atorvastatin Calcium 40 mg 10/30/24 10:00 10/30/24 08:13 Atorvastatin Calcium 40 Mg Tablet PO 40 mg DAILY RAYNA Administration Cholecalciferol 50 mcg 10/30/24 10:00 10/30/24 08:14 Cholecalciferol (Vit D3) 25 Mcg Tablet (1,000 Units) PO 50 mcg DAILY RAYNA Administration Enoxaparin Sodium 40 mg 10/30/24 06:00 10/30/24 06:56 Enoxaparin 40 Mg/0.4 Ml Syringe SC 40 mg DAILY@0600 RAYNA Administration Fluticasone Propionate 1 spray 10/30/24 10:00 10/30/24 08:12 Fluticasone 0.05% 1 Nebo Nasal.Sry NASAL 1 spray DAILY RAYNA Administration Latanoprost 1 drp 10/29/24 22:00 10/29/24 20:27 Latanoprost 0.005% 1 Bottle OPHTHALMIC 1 drp QHS RAYNA Administration Magnesium Citrate 300 ml 10/29/24 19:42 Magnesium Citrate 300 Ml PO DAILY PRN CONSTIPATION Metformin HCl 1,000 mg 10/30/24 08:00 10/30/24 08:13 Metformin (Xr) 500 Mg Tablet PO 1,000 mg BIDCM RAYNA Administration Multivitamins 1 tablet 10/30/24 08:00 10/30/24 08:14 Multivitamins,Therapeutic Tablet PO 1 tablet DAILYCM RAYNA Administration Pioglitazone HCl 30 mg 10/30/24 10:00 10/30/24 08:13 Pioglitazone Hydrochloride 30 Mg Tablet PO 30 mg DAILY RAYNA Administration Senna/Docusate Sodium 1 tablet 10/29/24 22:00 10/30/24 08:14 Senna/Docusate Sodium 1 Tablet PO 1 tablet BID RAYNA Administration Sertraline HCl 25 mg 10/30/24 10:00 10/30/24 08:13 Sertraline 50 Mg Tablet PO 25 mg DAILY RAYNA Administration Sodium Chloride 10 - 40 ml 10/29/24 16:08 0.9% Saline Lock 10 Ml Syringe IV UD PRN SALINE FLUSH Tamsulosin HCl 0.4 mg 10/30/24 10:00 10/30/24 08:13 Tamsulosin Hcl 0.4 Mg Capsule PO 0.4 mg DAILY RAYNA Administration Timolol Maleate 1 drp 10/29/24 22:00 10/30/24 08:14 Timolol 0.5% 5ml Opth.Btl OPHTHALMIC 1 drp BID RAYNA Administration Trazodone HCl 50 mg 10/29/24 22:00 10/29/24 20:28 Trazodone 50 Mg Tablet PO 50 mg QHS RAYNA Administration Tuberculin PPD 0.1 ml 11/06/24 10:00 Tuberculin,Purif.Prot.Deriv. 50 Tu/Ml Vial ID 11/06/24 10:01 X1 ONE Problem List Vascular dementia (Acute) Iron deficiency anemia (Acute) Hyperlipidemia, unspecified (Acute) Essential (primary) hypertension (Acute) Type 2 diabetes mellitus with hyperglycemia (Acute) Glaucoma (Acute) Anxiety (Acute) Urinary retention (Acute) BPH (benign prostatic hyperplasia) (Acute) Pneumonia (Acute) Acute heart failure with preserved ejection fraction (HFpEF) (Acute) Acute respiratory failure with hypoxia (Acute) Cardiac arrest (Acute) Hyponatremia (Acute) Acute delirium (Acute) Debility (Acute) Vital Signs Temp Pulse Resp BP Pulse Ox O2 Del Method O2 Flow Rate 97 F L 97 18 145/81 H 95 Nasal Cannula 4 10/30/24 08:10 10/30/24 08:10 10/30/24 08:10 10/30/24 08:10 10/30/24 08:53 10/30/24 08:53 10/30/24 14:42 Oxygen Flow Rate (L/min) 4 Oxygen Delivery Method Nasal Cannula Weight: 66.542 kg Body Mass Index (BMI) 22.9 Sodium 132 mmol/L (133-145) L 10/30/24 05:12 Potassium 4.0 mmol/L (3.3-5.1) 10/30/24 05:12 Chloride 93 mmol/L (98-108) L 10/30/24 05:12 Carbon Dioxide 27.1 mmol/L (21.0-32.0) 10/30/24 05:12 Anion Gap 12 (5-15) 10/30/24 05:12 BUN 22 mg/dL (4-19) H 10/30/24 05:12 Creatinine 0.64 mg/dL (0.70-1.20) L 10/30/24 05:12 Est GFR (MDRD) Non-Af 93 (>60) 10/30/24 05:12 BUN/Creatinine Ratio 34.3 RATIO (10-20) H 10/30/24 05:12 Glucose 194 mg/dL (70-99) H 10/30/24 05:12 Assessment/Plan: 1. Bowel: senna/docusate 1T PO BID and magnesium citrate 300mL PO daily PRN constipation. No PRN doses given. Please continue to monitor for constipation and PRN usage. Last documented bowel movement was 10/30/24. 2. DVT prophylaxis: enoxaparin 40mg PO daily. Please continue to monitor for S/Sof bleeding/DVT, hemoglobin (last 12.6g/dL), platelets (last 348,000) and renal function. 3. CAD: aspirin 81mg PO daily. Please continue to monitor for S/S of bleeding/bruising and hemoglobin. 4. Hyperlipidemia: atorvastatin 40mg PO QHS. Please consider ordering a lipid panel as there is no panel in the chart. Thanks. Please continue to monitor for muscle pain. 5. Diabetes Mellitus II: metformin XR 1000mg PO BIDCM and pioglitazone 30mg PO daily. Please consider ordering a hemoglobin A1c as there is no level in the chart. Thanks. Please continue to monitor glucose (last 194mg/dL), GFR (last 93mL/min) and S/S of hypoglycemia. 6. BPH/urinary retention: tamsulosin 0.4mg PO daily. Please continue to monitor for S/S of BPH/urinary retention and BP (last 140/81, 145/51). 7. Glaucoma: latanoprost 1gtt OU QHS and timolol 0.5% 1gtt OU BID. Please continue to monitor for S/S of glaucoma and eye irritation. 8. Allergic rhinitis: fluticasone 0.05% nasal spray 1 spray nasal daily. Please continue to monitor for S/S of allergies. 9. Vitamin D deficiency/nutrition: cholecalciferol 50mcg PO daily and multivitamin 1T PO daily. Please consider ordering a vitamin D level as there isno level in the chart. Thanks. Assessment/Plan for indications treated with psychotropic medications: 1. Major depression: sertraline 25mg PO daily. Please see physician note regarding GDR. Monitor for diarrhea, nausea, headache, anxiety or drowsiness, suicidal thoughts or behaviors (Boxed Warning), symptoms of bleeding, symptoms of serotonin syndrome (including agitation, confusion, hyperreflexia, rigidity/myoclonus, tremor, tachycardia, tachypnea), sodium levels (last Na = 132mg/dL, please monitor closely as resident was admitted for hyponatremia). Monitor for efficacy including resident symptoms, behaviors and indications of distress. Monitor for tolerability including mental status, cognition, excessivesleepiness, withdrawal or decreased participation in activities and decline in physical functioning. Maximize use of nonpharmacologic/behavioral interventions to facilitate dose reduction or discontinuation as appropriate. Please evaluate the appropriateness of GDR unless contraindicated. If appropriate, GDR should be attempted in 2 separate quarters within the first year of use or admission to TCU. If GDR attempted, monitor resident symptoms/behaviors. 2. Insomnia: trazodone 50mg PO QHS. Please see physician note regarding GDR. Monitor for drowsiness, dizziness or confusion, dry mouth, constipation, symptoms of serotonin syndrome (including agitation, confusion, hyperreflexia, rigidity/myoclonus, tremor, tachycardia, tachypnea), suicidal thoughts or behaviors (Boxed Warning). Monitor HR (can cause bradycardia or tachycardia). HRrange since admission = 74-97. Monitor for orthostatic hypotension, including postural dizziness, syncope or falls. Check orthostatic vital signs if suspicion of orthostasis. Monitor for efficacy including resident symptoms, behaviors and indications of distress. Monitor for tolerability including mental status, cognition, excessivesleepiness, withdrawal or decreased participation in activities and decline in physical functioning. Maximize use of nonpharmacologic/behavioral interventions to facilitate dose reduction or discontinuation as appropriate. Please evaluate the appropriateness of GDR unless contraindicated. If appropriate, GDR should be attempted in 2 separate quarters within the first year of use or admission to TCU. If GDR attempted, monitor resident symptoms/behaviors. Medical chart and medication regimen reviewed. The following medication irregularities or issues were identified: 1. Atorvastatin 40mg PO QHS. Please consider ordering a lipid panel as there is no panel in the chart. Thanks. 2. Metformin XR 1000mg PO BIDCM and pioglitazone 30mg PO daily. Please consider ordering a hemoglobin A1c as there is no level in the chart. Thanks. 3. Cholecalciferol 50mcg PO daily. Please consider ordering a vitamin D level asthere is no level in the chart. Thanks. Date Date of Note: 10/30/24 Documented by User: Dr. Juan Reed MD 10/30/24 16:05 TCU RX Drug Regimen Review Provider Comments Provider responsibility Provider Comments to Recommendations by Pharmacy Agree 10/30/24 1601 <Electronically signed by Nimo Fernandez> Nimo Light Signature (if applicable): 10/30/24 1605 <Electronically signed by Juan Reed MD> CC: ~ Signed [facility] Work Phone: [phone]) 320-367606-27-2025 Progress note [facility] Medical Records Department [address] [place] [address] Progress Note - Pharmacy 10/30/24 1533 MR#: [id number] Acct: [id number] Name: TIM ADAMSON Rep #:[id number] : 1940 83 From: Nimo Fernandez PCP: Rashmi Baltes, [employer] Status:ADM IN Location: TCU [id number] Documented by User: Nimo Fernandez 10/30/24 16:01 TCU RX Drug Regimen Review Subjective/Objective Subjective/Objective Subjective: TCU Admission. 83 YOM presented to outside hospital with recent rib fractures and delirium. Hospitalized for acute delirium 2/2 hyponatremia, opioiduse, complicated by cardiac arrest, acute HFpEF, urinary retention, acute respiratory failure with hypoxia, pneumonia. Admitted to TCU withdebility for strengthening and rehabilitation. Objective: Allergies No Known Allergies Allergy (Verified 03/11/19 14:02) Current Medications Generic Name Dose Route Start Last Admin Trade Name Freq PRN Reason Stop Dose Admin Aspirin 81 mg 10/30/24 08:00 10/30/24 08:13 Aspirin E.C. 81 Mg Tablet PO 81 mg BREAKFAST RAYNA Administration Atorvastatin Calcium 40 mg 10/30/24 10:00 10/30/24 08:13 Atorvastatin Calcium 40 Mg Tablet PO 40 mg DAILY RAYNA Administration Cholecalciferol 50 mcg 10/30/24 10:00 10/30/24 08:14 Cholecalciferol (Vit D3) 25 Mcg Tablet (1,000 Units) PO 50 mcg DAILY RAYNA Administration Enoxaparin Sodium 40 mg 10/30/24 06:00 10/30/24 06:56 Enoxaparin 40 Mg/0.4 Ml Syringe SC 40 mg DAILY@0600 RAYNA Administration Fluticasone Propionate 1 spray 10/30/24 10:00 10/30/24 08:12 Fluticasone 0.05% 1 Nebo Nasal.Sry NASAL 1 spray DAILY RAYNA Administration Latanoprost 1 drp 10/29/24 22:00 10/29/24 20:27 Latanoprost 0.005% 1 Bottle OPHTHALMIC 1 drp QHS RAYNA Administration Magnesium Citrate 300 ml 10/29/24 19:42 Magnesium Citrate 300 Ml PO DAILY PRN CONSTIPATION Metformin HCl 1,000 mg 10/30/24 08:00 10/30/24 08:13 Metformin (Xr) 500 Mg Tablet PO 1,000 mg BIDCM RAYNA Administration Multivitamins 1 tablet 10/30/24 08:00 10/30/24 08:14 Multivitamins,Therapeutic Tablet PO 1 tablet DAILYCM RAYNA Administration Pioglitazone HCl 30 mg 10/30/24 10:00 10/30/24 08:13 Pioglitazone Hydrochloride 30 Mg Tablet PO 30 mg DAILY RAYNA Administration Senna/Docusate Sodium 1 tablet 10/29/24 22:00 10/30/24 08:14 Senna/Docusate Sodium 1 Tablet PO 1 tablet BID RAYNA Administration Sertraline HCl 25 mg 10/30/24 10:00 10/30/24 08:13 Sertraline 50 Mg Tablet PO 25 mg DAILY RAYNA Administration Sodium Chloride 10 - 40 ml 10/29/24 16:08 0.9% Saline Lock 10 Ml Syringe IV UD PRN SALINE FLUSH Tamsulosin HCl 0.4 mg 10/30/24 10:00 10/30/24 08:13 Tamsulosin Hcl 0.4 Mg Capsule PO 0.4 mg DAILY RAYNA Administration Timolol Maleate 1 drp 10/29/24 22:00 10/30/24 08:14 Timolol 0.5% 5ml Opth.Btl OPHTHALMIC 1 drp BID RAYNA Administration Trazodone HCl 50 mg 10/29/24 22:00 10/29/24 20:28 Trazodone 50 Mg Tablet PO 50 mg QHS RAYNA Administration Tuberculin PPD 0.1 ml 11/06/24 10:00 Tuberculin,Purif.Prot.Deriv. 50 Tu/Ml Vial ID 11/06/24 10:01 X1 ONE Problem List Vascular dementia (Acute) Iron deficiency anemia (Acute) Hyperlipidemia, unspecified (Acute) Essential (primary) hypertension (Acute) Type 2 diabetes mellitus with hyperglycemia (Acute) Glaucoma (Acute) Anxiety (Acute) Urinary retention (Acute) BPH (benign prostatic hyperplasia) (Acute) Pneumonia (Acute) Acute heart failure with preserved ejection fraction (HFpEF) (Acute) Acute respiratory failure with hypoxia (Acute) Cardiac arrest (Acute) Hyponatremia (Acute) Acute delirium (Acute) Debility (Acute) Vital Signs Temp Pulse Resp BP Pulse Ox O2 Del Method O2 Flow Rate 97 F L 97 18 145/81 H 95 Nasal Cannula 4 10/30/24 08:10 10/30/24 08:10 10/30/24 08:10 10/30/24 08:10 10/30/24 08:53 10/30/24 08:53 10/30/24 14:42 Oxygen Flow Rate (L/min) 4 Oxygen Delivery Method Nasal Cannula Weight: 66.542 kg Body Mass Index (BMI) 22.9 Sodium 132 mmol/L (133-145) L 10/30/24 05:12 Potassium 4.0 mmol/L (3.3-5.1) 10/30/24 05:12 Chloride 93 mmol/L (98-108) L 10/30/24 05:12 Carbon Dioxide 27.1 mmol/L (21.0-32.0) 10/30/24 05:12 Anion Gap 12 (5-15) 10/30/24 05:12 BUN 22 mg/dL (4-19) H 10/30/24 05:12 Creatinine 0.64 mg/dL (0.70-1.20) L 10/30/24 05:12 Est GFR (MDRD) Non-Af 93 (>60) 10/30/24 05:12 BUN/Creatinine Ratio 34.3 RATIO (10-20) H 10/30/24 05:12 Glucose 194 mg/dL (70-99) H 10/30/24 05:12 Assessment/Plan: 1. Bowel: senna/docusate 1T PO BID and magnesium citrate 300mL PO daily PRN constipation. No PRN doses given. Please continue to monitor for constipation and PRN usage. Last documented bowel movementwas 10/30/24. 2. DVT prophylaxis: enoxaparin 40mg PO daily. Please continue to monitor for S/Sof bleeding/DVT, hemoglobin (last 12.6g/dL), platelets (last 348,000) and renal function. 3. CAD: aspirin 81mg PO daily. Please continue to monitor for S/S of bleeding/bruising and hemoglobin. 4. Hyperlipidemia: atorvastatin 40mg PO QHS. Please consider ordering a lipid panel as there is no panel in the chart. Thanks. Please continue to monitor for muscle pain. 5. Diabetes Mellitus II: metformin XR 1000mg PO BIDCM and pioglitazone 30mg PO daily. Please consider ordering a hemoglobin A1c as there is no level in the chart. Thanks. Please continue to monitor glucose (last 194mg/dL), GFR (last 93mL/min) and S/S of hypoglycemia. 6. BPH/urinary retention: tamsulosin 0.4mg PO daily. Please continue to monitor for S/S of BPH/urinary retention and BP (last 140/81, 145/51). 7. Glaucoma: latanoprost 1gtt OU QHS and timolol 0.5% 1gtt OU BID. Please continue to monitor for S/S of glaucoma and eye irritation. 8. Allergic rhinitis: fluticasone 0.05% nasal spray 1 spray nasal daily. Please continue to monitorfor S/S of allergies. 9. Vitamin D deficiency/nutrition: cholecalciferol 50mcg PO daily and multivitamin 1T PO daily. Please consider ordering a vitamin D level as there isno level in the chart. Thanks. Assessment/Plan for indications treated with psychotropic medications: 1. Major depression: sertraline 25mg PO daily. Please see physician note regarding GDR. Monitor fordiarrhea, nausea, headache, anxiety or drowsiness, suicidal thoughts or behaviors (Boxed Warning), symptoms of bleeding, symptoms of serotonin syndrome (including agitation, confusion, hyperreflexia, rigidity/myoclonus, tremor, tachycardia, tachypnea), sodium levels (last Na = 132mg/dL, please monitor closely as resident was admitted for hyponatremia). Monitor for efficacy including resident symptoms, behaviors and indications of distress. Monitor for tolerability including mental status, cognition, excessivesleepiness, withdrawal or decreased participation in activities and decline in physical functioning. Maximize use of nonpharmacologic/behavioral interventions to facilitate dose reduction or discontinuation as appropriate. Please evaluate the appropriateness of GDR unless contraindicated. If appropriate, GDR should be attempted in 2 separate quarters within the first year of use or admission to TCU. If GDR attempted, monitor resident symptoms/behaviors. 2. Insomnia: trazodone 50mg PO QHS. Please see physician note regarding GDR. Monitor for drowsiness, dizziness or confusion, dry mouth, constipation, symptoms of serotonin syndrome (including agitation, confusion, hyperreflexia, rigidity/myoclonus, tremor, tachycardia, tachypnea), suicidal thoughtsor behaviors (Boxed Warning). Monitor HR (can cause bradycardia or tachycardia). HRrange since admission = 74-97. Monitor for orthostatic hypotension, including postural dizziness, syncope or falls. Check orthostatic vital signs if suspicion of orthostasis. Monitor for efficacy including resident symptoms, behaviors and indications of distress. Monitor for tolerability including mental status, cognition, excessivesleepiness, withdrawal or decreased participation in activities and decline in physical functioning. Maximize use of nonpharmacologic/behavioral interventions to facilitate dose reduction or discontinuation as appropriate. Please evaluate the appropriateness of GDR unless contraindicated. If appropriate, GDR should be attempted in 2 separate quarters within the first year of use or admission to TCU. If GDR attempted, monitor resident symptoms/behaviors. Medical chart and medication regimen reviewed. The following medication irregularities or issues were identified: 1. Atorvastatin 40mg PO QHS. Please consider ordering a lipid panel as there is no panel in the chart. Thanks. 2. Metformin XR 1000mg PO BIDCM and pioglitazone 30mg PO daily. Please consider ordering a hemoglobin A1c as there is no level in the chart. Thanks. 3. Cholecalciferol 50mcg PO daily. Please consider ordering a vitamin D level asthere is no level in the chart. Thanks. Date Date of Note: 10/30/24 Documented by User: Dr. Juan Reed MD 10/30/24 16:05 TCU RX Drug Regimen Review Provider Comments Provider responsibility Provider Comments to Recommendations by Pharmacy Agree 10/30/24 1601 Nimo Light Signature (if applicable): 10/30/24 1605 CC: ~ Signed [facility]06-26-2025 [facility] Medical Records Department [address] [place] [address] History Physical Exam 10/29/24 1909 MR#: [id number] Acct: [id number] Name: TIM ADAMSON Rep #: [id number] : [id number] 83 From: Juan Reed MD PCP: VALENTIN Marrufo Status:ADM IN Location: [facility] TCU13-1 HPI - General General Date of Admission: 10/29/24 Date of Service: 10/29/24 Chief Complaint: Here for rehabilitation. HPI Narrative TIM ADAMSON, is a 83 Male who presents with followin10/20/2024 Admit to [facility]. Recent fall with rib fracture. Acute delirium 2/2 hyponatremia from starting Sertraline recently AND taking 's oxycodone. 10/21/2024 CODE BLUE 2/2 vasovagal with urinary retention, transferred to MICU after ROSC after 1 round of CPR. Neurology consulted for mental status. 10/21/2024 MRI brain negative for stroke, showed chronic vascular changes. Possible vascular dementia. Transferred out of MICU. Mild to moderate HFpEF 2/2 cardiac arrest and IV fluid use to improve hyponatremia. Lasix 20mg iv q6 started for diuresis. Urology recommended Tamsulosin, indwelling reilly catheter for 1-2 weeks bladder rest for urinary retention. 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 BiPAP applied and transferred to MICU. Pulsox improved to mid 90's on BIPAP with FiO2 85%, intubation held. Euvolemic. Echo shows moderate to severe aortic stenosis. 10/28/2024 Increase oxygen demand overnight, oxygen 8 liters, pulsox 94%. Continue incentive spirometry, wean oxygen as tolerated. PT/OT SNF. 10/29/2024 Admit to TCU with debility, here for rehabilitation, strengthening, prior to discharge home with . [facility] Medical History (Updated 10/29/24 @ 19:[address] Juan Reed MD) Vascular dementia Iron deficiency anemia Hyperlipidemia, unspecified Essential (primary) hypertension Type 2 diabetes mellitus with hyperglycemia Glaucoma Anxiety Urinary retention BPH (benign prostatic hyperplasia) Pneumonia Acute heart failure with preserved ejection fraction (HFpEF) Acute respiratory failure with hypoxia Cardiac arrest Hyponatremia Acute delirium Debility Home Medications ???Medication ???Instructions ???Recorded ???Last Taken ???Type atorvastatin 80 mg tablet 80 mg PO QHS cholesterol 03/11/19 Unknown History lisinopril 5 mg tablet 5 mg PO QHS kidneys 03/11/19 Unkno wn History metformin 1,000 mg tablet 1,000 mg PO QHS diabetes 03/11/19 Unknown History aspirin 81 mg tablet,delayed 81 mg PO DAILY atherosclerosis Unknown History release atorvastatin 40 mg tablet 40 mg PO DAILY hyperlipidemia 10/05 10/28 Unknown History cholecalciferol (vitamin D3) 25 2,000 unit PO DAILY supplement Unknown History mcg (1,000 unit) capsule docusate sodium 100 mg capsule 100 mg PO BID constipation 5 Unknown History (Colace) fluticasone propionate 50 1 spray intranasal DAILY allergy 0 10/29/24 Unknown History mcg/actuation nasal symptoms spray,suspension (Allergy Relief (fluticasone)) latanoprost 0.005 % eye drops 1 drp ophthalmic (eye) QHS eye Unknown History health metformin 500 mg tablet,extended 1,000 mg PO BID type 2 diabetes Unknown History release 24 hr mellitus multivitamin (Daily Multi-Vitamin 1 tab PO DAILY supplement 5 Unknown History tablet) pioglitazone 30 mg tablet 30 mg PO DAILY diabetes 10/29/24 U nknown History sertraline 25 mg tablet 25 mg PO DAILY anxiety 10/29/24 Un known History tamsulosin 0.4 mg capsule (Flomax) 0.4 mg PO DAILY prostate 5 Unknown History timolol maleate 0.5 % eye drops 1 drp ophthalmic (eye) BID eye Unknown History health trazodone 50 mg tablet 50 mg PO QHS sleep 10/29/24 Unknow n History Allergy/AdvReac Type Severity Reaction Status Date / Time No Known Allergies Allergy Verified 03/11/19 14:02 Family History (Updated 10/29/24 @ 19:[address] Juan Reed MD) Daughter Diabetes Mother Hypertension Hyperlipidemia Lung cancer Father Hyperlipidemia Brother Hyperlipidemia Surgical History (Updated 10/29/24 @ 19:[address] Juan Reed MD) History of repair of left rotator cuff History of cholecystectomy Social History (Updated 10/29/24 @ 19:[address] Juan Reed MD) household members: spouse Smoking Status: Never smoker alcohol intake: current alcohol intake frequency: holidays/special occasions only substance use type: does not use ROS Review of Systems ROS Unobtainable: due to encephalopathy and due to mental condition Constitutional Constitutional: Reports weakness; Denies chills, fever(s) or weight gain ENT HEENT: Denies headache(s), nasal congestion or nasal discharge C (more content not included)...[facility]06-26-2025 Evaluation note* Diagnosis Onset Date Resolution Status Admit Date Acute delirium acute October 29, 2024 3:48pm Acute heart failure with preserved ejection fraction (HFpEF) acute October 29, 2024 3:48pm Acute respiratory failure wi th hypoxia acute October 29, 2024 3:48pm Anxiety acute October 29 3:48pm BPH (benign prostatic hyperplasia) acute October 29, 2024 3:48pm Cardiac arrest acute October 29, 2024 3:48pm Debility acute October 29 3:48pm Essential (primary) hypertension acu te October 29, 2024 3:48pm Glaucoma acute October 29 3:48pm Hyperlipidemia, unspecified acute October 29, 2024 3:48pm Hyponatremia acute October 29, 2 025 3:48pm Iron deficiency anemia acute 2024 3:48pm Pneumonia acute October 29 3:48pm Type 2 diabetes mellitus wit h hyperglycemia acute October 29, 2024 3:48pm Urinary retention acute October 292024 3:48pm Vascular dementia acute October 292024 3:48pm [facility] Work Phone: 1(866) 707-308106-26-2025 Discharge summary Date of Service 10/29/2024 Discharge Diagnosis 1. Cardiac arrest 2. Diastolic dysfunction with heart failure 3. Acute hypoxic respiratory failure 4. Acute urinary retention 5. Hyponatremia 6. Altered mental state 7. Type 2 diabetes mellitus 8. Anxiety 9. Hyperlipidemia 10. HTN Hospital Course This is a split/shared visit with Dr. Prado. Pt is an 83-year-old male with history of essentialhypertension, pqz-rnbftlk-uxrhvshyr type 2 diabetes mellitus, dementia, and hyperlipidemia who presented to the hospital with altered mental status and recent fall with subsequent rib fracture. In the ER vitals normal. CBC hemoglobin 12.7, glucose 166, sodium 122, chloride 88, creatinine 0.57, BUN 11. High-sensitivity troponin normal. TSH normal. Opiates positive. Chest x-ray cardiomegaly with pulmonary vascular congestion and age and determinate right rib fractures. Patient was admitted to thehospitalist service for further evaluation of hyponatremia and confusion. Started on IV fluid with normal saline and sodium did gradually improve. The day following admission the patient did experience a cardiac arrest. Patient's nurse noted he was suddenly yelling out, tensed up turned blue becamepulseless. 1 round of CPR was performed and ROSC achieved no medications needed. Admitted to the ICU. MRI brain performed due to altered mental status unremarkable.Evaluated by neurology. Transferredback to the floors 10/23 with consults placed to urology for patient's acute urinary retention whichrequired placement of Reilly catheter followed by subsequent failed trial of void and replacement ofFoley catheter. Also cardiology was consulted due to patient's cardiac arrest and widened QRS. He was started on IV Lasix, echocardiogram was ordered. Demonstrating moderate to severe aortic stenosis, IVC is normal. Had increasing oxygen requirement wearing BiPAP, was transferred back to the intensive care unit. Respiratory status improved, transferred back to the stepdown unit on 10/25/2024. Initially on 8L oxygen via NC, has been weaned down to 4L. Chest xray done with atelectasis but no concern for infectious process. Encouraged continued IS use and pulmonary toileting. Overall mentation waxing and waning. An element of toxic/metabolic encephalopathy as well as hospital-associated delirium suspected. PT/OT recommending SNF at discharge. Accepted at [facility]. Pt medically optimized for discharge, family in agreement with plan of care. Will need follow up with Urology, cardiology andneurocare. Allergies NKA Consults Consult to Physician - Ordered -- 10/22/24 8:52:00 EDT, WALTER CUEVAS MD, Routine, Other, Encephalopathy; pleasantly confused; worsened from baseline; MRI brain and B12 level ordered Consult to Physician - Ordered -- 10/24/24 7:25:00 EDT, KUN ESPINAL MD, Routine, s/p cardiac arrest? wide qrs eval Consult to Physician - Ordered -- 10/24/24 13:21:00 EDT, LILLY MCINTOSH MD, Routine, family request acute urinary retention Imaging Results and Diagnostics XR Chest 1 View Result Date: October 28, 2024 Verified By: SOSA YAO DO CLINICAL STATEMENT: IMPRESSION: Relatively stable bibasilar airspace opacities and small right pleuraleffusion. I have reviewed the resident's preliminary report and agree with findings andimpression. CT Thorax w/ Contrast Result Date: October 26, 2024 Verified By: BRIANA TREVIZO, GIOVANI Stubbs CLINICAL STATEMENT: IMPRESSION: 1. Moderate bilateral lower lobe airspace disease with small right pleuraleffusion.2. Moderate cardiomegaly with atherosclerotic coronary artery calcification.3. Moderate T3 vertebral body compression fracture is new since 02/20/2024.4. Mild T2 compression fracture is unchanged since 02/20/2024.5. Multiple bilateral rib fractures are of indeterminate age. XR Chest 1 View Result Date: October 26, 2024 Verified By: MIRIAN DENNY MD CLINICAL STATEMENT: IMPRESSION: Bilateral pleural effusions of small volume. Associated bibasilaratelectasis and or consolidation. XR Chest 1 View Result Date: October 25, 2024 Verified By: TIEN CAN MD CLINICAL STATEMENT: IMPRESSION: Small bilateral effusions with hazy airspace disease at the lung bases. XR Chest 1 View Result Date: October 24, 2024 Verified By: HUBER CORRAL DO CLINICAL STATEMENT: IMPRESSION: []Image findings compatible with congestive failure. Superimposing airspaceprocess considered. Correlate with clinical findings. CT Head or Brain w/o Contrast Result Date: October 23, 2024 Verified By: NÉSTOR SNYDER MD CLINICAL STATEMENT: IMPRESSION: No acute intracranial hemorrhage, mass effect or midline shift. I have personally reviewed the images of this examination and agree with theresident's findings and interpretation. MRI Brain w/o Contrast Result Date: October 22, 2024 Verified By: RASHMI AGUIRRE DO CLINICAL STATEMENT: IMPRESSION: 1. No acute intracranial abnormality.2. Primarily confluent periventricular white matter FLAIR hyperintensities,right greater than left. This is nonspecific and may represent chronicmicrovascular ischemic changes. XR Enteric Tube Placement Result Date: October 21, 2024 Verified By: SANG KNUTSON DO CLINICAL STATEMENT: IMPRESSION: 1. Orogastric tube in functional position.2. No acute pulmonary disease. Physical Exam Vitals and Measurements T: 36.8 C (Oral) TMIN: 36.5 C (Oral) TMAX: 36.8 C (Oral) HR: 86 (Monitored) RR: 22 BP: 108/78 SpO2:93% Weight Dosing Weight: 70.5 kg (10/20/24) General: Alert and oriented x 2, NAD Head: Normocephalic, mmm, sclera nonicteric Cardiovascular: Normal rate and rhythm, no murmur, - edema Respiratory: Lungs diminished, easy Abdomen: soft and non-distended, bowel sounds active all 4 quadrants Neurological: Moving all 4 extremities, speech clear Psychological: normal affect, cooperative, good eye contact Code Status Code Status - Ordered -- 10/25/24 4:52:00 EDT, DNRCC-Arrest Do Not Intubate, Constant Order Admission Date 10/20/2024 Discharge Date 10/29/2024 Medications New Prescription docusate (Colace 100 mg oral capsule)1 cap by mouth two (2) times a day. tamsulosin (Flomax 0.4 mg oral capsule)1 cap by mouth once a day. traZODone (traZODone 50 mg oral tablet)0.5 tab(s) by mouth daily at bedtime. Unchanged aspirin (aspirin 81 mg oral delayed release tablet)1 tab(s) by mouth once a day. Refills: 3. atorvastatin (atorvastatin 40 mg oral tablet)1 tab(s) by mouth once a day. Refills: 3. cholecalciferol (Vitamin D3)2,000 unit(s) by mouth every day. DME (Blood Glucose Test Strips)EA=BOX of 100 DM E11.9 one touch ultra blue test strips - patient checks once a day. Refills: 3. DME (Lancets)One touch delica lancets - patietn checks once a day. Refills: 5. fluticasone nasal (fluticasone 50 mcg/inh NASAL spray)50 Microgram in the nose once a day. Refills:2. latanoprost ophthalmic (latanoprost 0.005% ophthalmic solution)1 Drops Both eyes daily at bedtime. metFORMIN (MetFORMIN (Eqv-Glucophage XR) 500 mg oral tablet, EXTENDED RELEASE)4 tab(s) by mouth once a day for 90 Days. Refills: 3. multivitamin (Multivitamin)1 tab(s) by mouth every day. pioglitazone (pioglitazone 30 mg oral tablet)1 tab(s) by mouth every day. Refills: 3. sertraline (sertraline 25 mg oral tablet)1 tab(s) by mouth once a day for 90 Days. Refills: 0. timolol ophthalmic (Timolol Maleate (Eqv-Timoptic) 0.5% ophthalmic solution)1 gtt(s) Both eyes two (2) times a day. Discontinued amLODIPine (amLODIPine 5 mg oral tablet)1 tab(s) by mouth two (2) times a day for 100 Days. dose increase. Refills: 3. ibuprofen (ibuprofen 200 mg oral tablet)2 tab(s) by mouth every 6 hours as needed for pain. Take with food or milk.. lisinopril (lisinopril 40 mg oral tablet)1 tab(s) by mouth once a day. Refills: 3. Follow Up Follow Up with RASHMI PRICE When:Within 1-2 days Where:[address] [place] [address]- [phone] Additional Information: Please call the office to schedule a hospital follow up appointment. Follow Up Appointments Transfer of Care OT - Ordered -- Reason for therapy: generalized weakness, 10/29/24 13:40:00 EDT Transfer of Care PT - Ordered -- Reason for therapy: generalized weakness, 10/29/24 13:40:00 EDT Follow Up Labs/Studies Discharge Labs No Follow-up Labs Discharge Studies No Follow-up Studies Discharge Diet Transfer of Care Diet - Ordered -- Type of Diet: Regular Diet, Calories Permitted: 1800 kcal, 10/29/24 13:40:00 EDT Discharge Activity Transfer of Care Activity - Ordered -- As instructed by therapy, 10/29/24 13:40:00 EDT Condition on Discharge Stable Discharge Disposition SNF Time Spent > 30 minutes Digitally Signed by PHUONG NEAL on 10/29/2024 02:01 PM [id number] Discharge instructions Patient Education 10/29/2024 14:20:21 Acute Respiratory Failure, Adult Acute Respiratory Failure, Adult Acute respiratory failure occurs when there is not enough oxygen passing from your lungs to your body. When this happens, your lungs have trouble removing carbon dioxide from the blood. This causes your blood oxygen level to drop too low as carbon dioxide builds up. Acute respiratory failure is a medical emergency. It can develop quickly, but it is temporary if treated promptly. Your lung capacity, or how much air your lungs can hold, may improve with time, exercise, and treatment. What are the causes? There are many possible causes of acute respiratory failure, including: Lung injury. Chest injury or damage to the ribs or tissues near the lungs. Lung conditions that affect the flow of air and blood into and out of the lungs, such as pneumonia,acute respiratory distress syndrome, and cystic fibrosis. Medical conditions, such as strokes or spinal cord injuries, that affect the muscles and nerves that control breathing. Blood infection (sepsis). Inflammation of the pancreas (pancreatitis). A blood clot in the lungs (pulmonary embolism). A large-volume blood transfusion. Harry. Near-drowning. Seizure. Smoke inhalation. Reaction to medicines. Alcohol or drug overdose. What increases the risk? This condition is more likely to develop in people who have: A blocked airway. Asthma. A condition or disease that damages or weakens the muscles, nerves, bones, or tissues that are involved in breathing. A serious infection. A health problem that blocks the unconscious reflex that is involved in breathing, such as hypothyroidism or sleep apnea. A lung injury or trauma. What are the signs or symptoms? Trouble breathing is the main symptom of acute respiratory failure. Symptoms may also include: Rapid breathing. Restlessness or anxiety. Skin, lips, or fingernails that appear blue (cyanosis). Rapid heart rate. Abnormal heart rhythms (arrhythmias). Confusion or changes in behavior. Tiredness or loss of energy. Feeling sleepy or having a loss of consciousness. How is this diagnosed? Your health care provider can diagnose acute respiratory failure with a medical history and physical exam. During the exam, your health care provider will listen to your heart and check for cracklingor wheezing sounds in your lungs. Your may also have tests to confirm the diagnosis and determine what is causing respiratory failure. These tests may include: Measuring the amount of oxygen in your blood (pulse oximetry). The measurement comes from a small device that is placed on your finger, earlobe, or toe. Other blood tests to measure blood gases and to look for signs of infection. Sampling your cerebral spinal fluid or tracheal fluid to check for infections. Chest X-ray to look for fluid in spaces that should be filled with air. Electrocardiogram (ECG) to look at the heart's electrical activity. How is this treated? Treatment for this condition usually takes places in a hospital intensive care unit (ICU). Treatment depends on what is causing the condition. It may include one or more treatments until your symptoms improve. Treatment may include: Supplemental oxygen. Extra oxygen is given through a tube in the nose, a face mask, or a day. A device such as a continuous positive airway pressure (CPAP) or bi-level positive airway pressure (BiPAP or BPAP) machine. This treatment uses mild air pressure to keep the airways open. A mask or other device will be placed over your nose or mouth. A tube that is connected to a motor will deliveroxygen through the mask. Ventilator. This treatment helps move air into and out of the lungs. This may be done with a bag and mask or a machine. For this treatment, a tube is placed in your windpipe (trachea) so air and oxygen can flow to the lungs. Extracorporeal membrane oxygenation (ECMO). This treatment temporarily takes over the function of the heart and lungs, supplying oxygen and removing carbon dioxide. ECMO gives the lungs a chance to recover. It may be used if a ventilator is not effective. Tracheostomy. This is a procedure that creates a hole in the neck to insert a breathing tube. Receiving fluids and medicines. Rocking the bed to help breathing. Follow these instructions at home: Take mwqy-hez-tumdfie and prescription medicines only as told by your health care provider. Return to normal activities as told by your health care provider. Ask your health care provider what activities are safe for you. Keep all follow-up visits as told by your health care provider. This is important. How is this prevented? Treating infections and medical conditions that may lead to acute respiratory failure can help prevent the condition from developing. Contact a health care provider if: You have a fever. Your symptoms do not improve or they get worse. Get help right away if: You are having trouble breathing. You lose consciousness. Your have cyanosis or turn blue. You develop a rapid heart rate. You are confused. These symptoms may represent a serious problem that is an emergency. Do not wait to see if the symptoms will go away. Get medical help right away. Call your local emergency services (911 in the [place] Do not drive yourself to the hospital. This information is not intended to replace advice given to you by your health care provider. Make sure you discuss any questions you have with your health care provider. Document Released: 04/27/2014 Document Revised: 04/04/2018 Document Reviewed: 11/07/2016 [employer] Patient Education 2020 [employer]. Follow Up Care 10/20/2024 13:54:14 With:Discharge to [facility], skilled, ; ambulance transport arranged for 3pm through [employer], Ext. [phone] Address:Unknown When:1-2 days With:[facility] Address: When:Within 4 Week(s) With:SKYLAR DONG MD, [facility] Address: [address] [facility] [address] [place] [address] [phone] When:Within 2 Week(s) only if needed With:BELKYS ALCANTAR MD Address: [address] [place] [address] [address] [place] [address]- [phone] When:Within 4 Week(s) With:RASHMI PRICE Address: [address] [place] [phone]- [phone] When:1-2 days Comments:Please call the office to schedule a hospital follow up appointment. [facility] 06-26-2025 Note Discharge Instructions Thank you for allowing [facility] to assist you with your healthcare needs. The following is importantdischarge information regarding your hospital visit. Your Care Team RASHMI PRICE Your Diagnosis Acute hypoxic respiratory failure Acute urinary retention Altered mental state Anxiety Atherosclerosis of aorta Cardiac arrest Diastolic dysfunction with heart failure Hyperlipidemia Hypertension Hyponatremia Seasonal allergies Toxic metabolic encephalopathy Type 2 diabetes mellitus What to do next Scheduled Follow-Up Appointments Appointment Type When With Where Contact Information StatusPC OV 01/06/2025 10:30 AM EDT RASHMI PRICE [address] [phone] Confirmed Follow Up Appointments Follow Up with Discharge to [facility], skilled, ; ambulance transport arranged for 3pm through [employer], Ext. [phone] When:Within 1-2 days Follow Up with [facility] When:In 4 weeks Follow Up with SKYLAR DONG MD, [facility] When:In 2 weeks , only if needed Where:[address] [facility] [address] [place] [address]- [phone] Follow Up with BELKYS ALCANTAR MD When:In 4 weeks Where:[address] [facility] [address] [place] [address]- [phone] Follow Up with RASHMI PRICE When:Within 1-2 days Where:[address] [facility] [place] [address]- [phone] Additional Information: Please call the office to schedule a hospital follow up appointment. The Following Activity and Diet Have Been Ordered for You Transfer of Care Activity - Ordered -- As instructed by therapy, 10/29/24 13:40:00 EDT Transfer of Care Diet - Ordered -- Type of Diet: Regular Diet, Calories Permitted: 1800 kcal, 10/29/24 13:40:00 EDT The Following Equipment Has Been Ordered for You Discharge Home Equipment Transfer of Care Urinary Catheter Insertion/Care - Ordered -- Indwelling, Routine care per facility guidelines., 10/29/24 13:40:41 EDT The Following Treatments Have Been Ordered for You Discharge Labs No qualifying data available. Discharge Radiology No qualifying data available. Other Therapies Transfer of Care OT - Ordered -- Reason for therapy: generalized weakness, 10/29/24 13:40:00 EDT Transfer of Care PT - Ordered -- Reason for therapy: generalized weakness, 10/29/24 13:40:00 EDT Post Acute Orders Transfer of Care Admission Level of Care - Ordered -- Level of Care SNF, 10/29/24 13:40:41 EDT Transfer of Care Code Status - Ordered -- DNRCC-Arrest Do Not Intubate, Constant Order Transfer of Care Communication Order - Ordered -- Expect less than 30 day stay., 10/29/24 13:40:41 EDT Transfer of Care Orders Electronically Signed By - Ordered -- 10/29/24 13:40:00 EDTJOHAN IVOR MD Transfer of Care Oxygen Therapy - Ordered -- Oxygen (CONTINUOUS), Mobile in the Home, Nasal Cannula, 4 liters per minute, 99 month(s), 10/29/24 13:40:00 EDT Transfer of Care Prognosis - Ordered -- Fair, Patient Aware: Yes Transfer of Care Rehab Potential - Ordered -- Rehab potential fair, 10/29/24 13:40:41 EDT Transfer of Care Urinary Catheter Insertion/Care - Ordered -- Indwelling, Routine care per facility guidelines., 10/29/24 13:40:41 EDT Someone Will Contact You Regarding These Home Health Referrals No home referrals have been ordered for you. No one will call you. Allergies NKA Medications Please ask your primary doctor or pharmacist before taking any other medication not listed, including over the counter drugs, herbal medications, vitamins and or supplements as they may interact withyour home medications. What How Much When Why Instructions Last Dose New docusate (Colace 100 mg oral capsule) 1 cap by mouth Two (2) times a day New tamsulosin (Flomax 0.4 mg oral capsule) 1 cap by mouth Once a day New traZODone (traZODone 50 mg oral tablet) 0.5 tab(s) by mouth Daily at bedtime Unchanged aspirin (aspirin 81 mg oral delayed release tablet) 1 tab(s) by mouth Once a day Atherosclerosis of aorta Type 2 diabetes mellitus Unchanged atorvastatin (atorvastatin 40 mg oral tablet) 1 tab(s) by mouth Once a day Hyperlipidemia Type 2 diabetes mellitus Unchanged cholecalciferol (Vitamin D3) 2,000 unit(s) by mouth Every day Unchanged DME (Blood Glucose Test Strips) See instructions Type 2 diabetes mellitus EA=BOX of 100 DM E11.9 one touch ultra blue test strips - patient checks once a day Unchanged DME (Lancets) See instructions Type 2 diabetes mellitus One touch delica lancets - patietn checks once a day Unchanged fluticasone nasal (fluticasone 50 mcg/ inh NASAL spray) 50 Microgram in the nose Once a day Seasonal allergies Unchanged latanoprost ophthalmic (latanoprost 0.005% ophthalmic solution) 1 Drops Both eyes Daily at bedtime Unchanged metFORMIN (MetFORMIN (Eqv-Glucophage XR) 500 mg oral tablet, EXTENDED RELEASE) 4 tab(s) by mouth Once a day Type 2 diabetes mellitus Duration: 90 Days Unchanged multivitamin (Multivitamin) 1 tab(s) by mouth Every day Unchanged pioglitazone (pioglitazone 30 mg oral tablet) 1 tab(s) by mouth Every day Unchanged sertraline (sertraline 25 mg oral tablet) 1 tab(s) by mouth Once a day Anxiety Duration: 90 Days Unchanged timolol ophthalmic (Timolol Maleate (Eqv-Timoptic) 0.5% ophthalmic solution) 1 gtt(s) Both eyes Two (2) times a day What How Much When Why Comments Stop Taking amLODIPine (amLODIPine 5 mg oral tablet) 1 tab(s) by mouth Two (2) times a day Hypertension Duration: 100 Days dose increase Stop Taking ibuprofen (ibuprofen 200 mg oral tablet) 2 tab(s) by mouth Every 6 hours as needed for for pain Take with food or milk. Stop Taking lisinopril (lisinopril 40 mg oral tablet) 1 tab(s) by mouth Once a day Hypertension Please take this list to your next doctor s visit. Bring all medications you take, including over the counter medications, herbals and other supplements with you to your doctor s visit. Patients and families are reminded to discard old lists and to update any records with all medication providers or retail pharmacies. Education Materials Acute Respiratory Failure, Adult Acute respiratory failure occurs when there is not enough oxygen passing from your lungs to your body. When this happens, your lungs have trouble removing carbon dioxide from the blood. This causes your blood oxygen level to drop too low as carbon dioxide builds up. Acute respiratory failure is a medical emergency. It can develop quickly, but it is temporary if treated promptly. Your lung capacity, or how much air your lungs can hold, may improve with time, exercise, and treatment. What are the causes? There are many possible causes of acute respiratory failure, including: Lung injury. Chest injury or damage to the ribs or tissues near the lungs. Lung conditions that affect the flow of air and blood into and out of the lungs, such as pneumonia,acute respiratory distress syndrome, and cystic fibrosis. Medical conditions, such as strokes or spinal cord injuries, that affect the muscles and nerves that control breathing. Blood infection (sepsis). Inflammation of the pancreas (pancreatitis). A blood clot in the lungs (pulmonary embolism). A large-volume blood transfusion. Harry. Near-drowning. Seizure. Smoke inhalation. Reaction to medicines. Alcohol or drug overdose. What increases the risk? This condition is more likely to develop in people who have: A blocked airway. Asthma. A condition or disease that damages or weakens the muscles, nerves, bones, or tissues that are involved in breathing. A serious infection. A health problem that blocks the unconscious reflex that is involved in breathing, such as hypothyroidism or sleep apnea. A lung injury or trauma. What are the signs or symptoms? Trouble breathing is the main symptom of acute respiratory failure. Symptoms may also include: Rapid breathing. Restlessness or anxiety. Skin, lips, or fingernails that appear blue (cyanosis). Rapid heart rate. Abnormal heart rhythms (arrhythmias). Confusion or changes in behavior. Tiredness or loss of energy. Feeling sleepy or having a loss of consciousness. How is this diagnosed? Your health care provider can diagnose acute respiratory failure with a medical history and physical exam. During the exam, your health care provider will listen to your heart and check for cracklingor wheezing sounds in your lungs. Your may also have tests to confirm the diagnosis and determine what is causing respiratory failure. These tests may include: Measuring the amount of oxygen in your blood (pulse oximetry). The measurement comes from a small device that is placed on your finger, earlobe, or toe. Other blood tests to measure blood gases and to look for signs of infection. Sampling your cerebral spinal fluid or tracheal fluid to check for infections. Chest X-ray to look for fluid in spaces that should be filled with air. Electrocardiogram (ECG) to look at the heart's electrical activity. How is this treated? Treatment for this condition usually takes places in a hospital intensive care unit (ICU). Treatment depends on what is causing the condition. It may include one or more treatments until your symptoms improve. Treatment may include: Supplemental oxygen. Extra oxygen is given through a tube in the nose, a face mask, or a day. A device such as a continuous positive airway pressure (CPAP) or bi-level positive airway pressure (BiPAP or BPAP) machine. This treatment uses mild air pressure to keep the airways open. A mask or other device will be placed over your nose or mouth. A tube that is connected to a motor will deliveroxygen through the mask. Ventilator. This treatment helps move air into and out of the lungs. This may be done with a bag and mask or a machine. For this treatment, a tube is placed in your windpipe (trachea) so air and oxygen can flow to the lungs. Extracorporeal membrane oxygenation (ECMO). This treatment temporarily takes over the function of the heart and lungs, supplying oxygen and removing carbon dioxide. ECMO gives the lungs a chance to recover. It may be used if a ventilator is not effective. Tracheostomy. This is a procedure that creates a hole in the neck to insert a breathing tube. Receiving fluids and medicines. Rocking the bed to help breathing. Follow these instructions at home: Take [id number] and prescription medicines only as told by your health care provider. Return to normal activities as told by your health care provider. Ask your health care provider what activities are safe for you. Keep all follow-up visits as told by your health care provider. This is important. How is this prevented? Treating infections and medical conditions that may lead to acute respiratory failure can help prevent the condition from developing. Contact a health care provider if: You have a fever. Your symptoms do not improve or they get worse. Get help right away if: You are having trouble breathing. You lose consciousness. Your have cyanosis or turn blue. You develop a rapid heart rate. You are confused. These symptoms may represent a serious problem that is an emergency. Do not wait to see if the symptoms will go away. Get medical help right away. Call your local emergency services (911 in the [place] Do not drive yourself to the hospital. This information is not intended to replace advice given to you by your health care provider. Make sure you discuss any questions you have with your health care provider. Document Released: 04/27/2014 Document Revised: 04/04/2018 Document Reviewed: 11/07/2016 [employer] Patient Education 2020 [employer]. Additional Information VACCINATE! IT SAVES LIVES! Members of the community who have not yet received the COVID-19 vaccine and would like to receive it can visit one of [facility] vaccine clinics. There are many vaccine clinic locations within the [facility]. For locations and available times, please visit [email or web address]/. It is important to note that some COVID mobile vaccine clinics are held outdoors and may be canceled in rainy or stormy conditions. To learn more about pediatric vaccinations (ages 5-11), we invite you to visit the [facility] webpage. https://www.[facility].org/pages/7843-Jyjbq-Hzkmvifaczi-Rvbsjgwkbz-[email or web address]-Skd stions.htmlTo learn more about the COVID-19 vaccine, we invite you to visit the CDC website for a list of frequently asked questions.https://www.cdc.gov/coronavirus/2019-ncov/vaccines/faq.html [employer] Patient Portal Access Instructions: Stay connected with your healthcare team and access your personal medical information anytime with the [employer] Patient Portal. Please follow the directions below to create your [employer] account: 1.Access the email account you provided upon registration to the hospital/physician office.2.Look for an invitation email from [facility].3.Open the email and access the invitation link: [facility]itation to [facility].4.Fill in the required small to create your account. To access your account, visit [email or web address]. Click the blue button labeled "Access Patient Portal" and then log in with the username and password that you created in the steps above. You will be able to view your test results, lab results, a summary of your visits, upcoming appointments and more. There is also a convenient messaging option where you can send secure messages to your p rovider. In addition, you will have the ability to download any documents or summaries to your computer and/or send the information securely to a physician. Remember that your healthcare information is confidential, so carefully consider who you will allowto register on the [facility] Patient Portal for access to your information. You can also access the [facility] [employer] Patient Portal on the [facility] darrel. Simply click on "Patient Portal" and then log into your account. If you would like to receive a full copy of your medical records, please contact the [facility] Medical Records Department by calling [phone], Saturday through Saturday between 8 a.m. and 4:30 p.m. HOW TO SAFELY DISPOSE OF PRESCRIPTION MEDICATIONS Please use one of the following methods to safely dispose of your unused medications. 1.Use a drug disposal kit: the drug disposal pouch allows you to safely discard your old and unuseddrugs. Ask your nurse to give you one when you are discharged.2.Visit a local take-back location: Many local pharmacies and police departments have programs that collect old and unwanted prescriptiondrugs. Call your local pharmacy or go to http://Moni.[employer]/2A2Rs8v to find one close to you.3.Make use of household items: Use cat litter or old coffee grounds to dispose medications if other options arenot available. Mix your drugs with these household products, seal them in an airtight container andthrow it into the garbage. Call [facility]: [phone] to be sure your drugs can be disposed of in this way. Some medicines may require a different approach.4.Never flush your medications down the toilet. IF YOU HAVE BEEN PRESCRIBED AN OPIOID FOR PAIN If you have been prescribed an opioid (such as hydrocodone, oxycodone or morphine), it is critical to understand the possible side effects and risks of opioid pain medications. Even when taken as directed, opioids can have several side effects including: Tolerance, meaning you might need to take more of a medication for the same pain relief. Nausea, vomiting and/or constipation. Sleepiness, dizziness, dry mouth, confusion, depression or itching. Physical dependence, meaning you have withdrawal symptoms when a medication is stopped, can develop within a few days. KNOW YOUR RESPONSIBILITIES It is important to know exactly how much and how often to take the opioid pain medications you are prescribed. Never take opioids in higher amounts or more often than prescribed. Do not combine opioids with alcohol or other drugs that cause drowsiness, such as benzodiazepines, also known as benzos, including diazepam and alprazolam, muscle relaxants or sleep aids. Never sell or share prescription opioids. This is illegal. Store opioids in a secure place and out of reach of others (including children, family, friends and visitors). The last page of this document has been signed and retained as a CHART COPY. Signatures Patient Education Materials Acute Respiratory Failure, Adult Medication Leaflets My discharge plan and instructions have been reviewed and explained to me and I,TIM ADAMSON understand my current condition and have read and understand these discharge instructions. I have received a written copy of the plan/instructions. If I have questions, I am aware that I should contact my doctor. Patient/Facilities Assistant Signature: Date/Time: Relationship to Patient: Witness Name/Signature: Date/Time: [id number] Note Discharge Instructions Thank you for allowing [facility] to assist you with your healthcare needs. The following is importantdischarge information regarding your hospital visit. Your Care Team RASHMI PRICE Your Diagnosis Acute hypoxic respiratory failure Acute urinary retention Altered mental state Anxiety Atherosclerosis of aorta Cardiac arrest Diastolic dysfunction with heart failure Hyperlipidemia Hypertension Hyponatremia Seasonal allergies Toxic metabolic encephalopathy Type 2 diabetes mellitus What to do next Scheduled Follow-Up Appointments Appointment Type When With Where Contact Information StatusPC OV 01/06/2025 10:30 AM EDT RASHMI PRICE [facility] [address] [place] [address] [phone] Confirmed Follow Up Appointments Follow Up with Discharge to [facility], skilled, ; ambulance transport arranged for 3pm through [employer], Ext. [phone] When:Within 1-2 days [facility] When:In 4 weeks Follow Up with SKYLAR DONG MD, [facility] When:In 2 weeks , only if needed Where:[address] [place] [address] [phone] Follow Up with BELKYS ALCANTAR MD When:In 4 weeks Where:[address] [facility] [place] [address] [phone] Follow Up with RASHMI PRICE When:Within 1-2 days Where:[address] [place], [place] [address]- [phone] Additional Information: Please call the office to schedule a hospital follow up appointment. The Following Activity and Diet Have Been Ordered for You Transfer of Care Activity - Ordered -- As instructed by therapy, 10/29/24 13:40:00 EDT Transfer of Care Diet - Ordered -- Type of Diet: Regular Diet, Calories Permitted: 1800 kcal, 10/29/24 13:40:00 EDT The Following Equipment Has Been Ordered for You Discharge Home Equipment Transfer of Care Urinary Catheter Insertion/Care - Ordered -- Indwelling, Routine care per facility guidelines., 10/29/24 13:40:41 EDT The Following Treatments Have Been Ordered for You Discharge Labs No qualifying data available. Discharge Radiology No qualifying data available. Other Therapies Transfer of Care OT - Ordered -- Reason for therapy: generalized weakness, 10/29/24 13:40:00 EDT Transfer of Care PT - Ordered -- Reason for therapy: generalized weakness, 10/29/24 13:40:00 EDT Post Acute Orders Transfer of Care Admission Level of Care - Ordered -- Level of Care SNF, 10/29/24 13:40:41 EDT Transfer of Care Code Status - Ordered -- DNRCC-Arrest Do Not Intubate, Constant Order Transfer of Care Communication Order - Ordered -- Expect less than 30 day stay., 10/29/24 13:40:41 EDT Transfer of Care Orders Electronically Signed By - Ordered -- 10/29/24 13:40:00 EDT, ROSI PRADO MD Transfer of Care Oxygen Therapy - Ordered -- Oxygen (CONTINUOUS), Mobile in the Home, Nasal Cannula, 4 liters per minute, 99 month(s), 10/29/24 13:40:00 EDT Transfer of Care Prognosis - Ordered -- Fair, Patient Aware: Yes Transfer of Care Rehab Potential - Ordered -- Rehab potential fair, 10/29/24 13:40:41 EDT Transfer of Care Urinary Catheter Insertion/Care - Ordered -- Indwelling, Routine care per facility guidelines., 10/29/24 13:40:41 EDT Someone Will Contact You Regarding These Home Health Referrals No home referrals have been ordered for you. No one will call you. Allergies NKA Medications Please ask your primary doctor or pharmacist before taking any other medication not listed, including over the counter drugs, herbal medications, vitamins and or supplements as they may interact withyour home medications. What How Much When Why Instructions Last Dose New docusate (Colace 100 mg oral capsule) 1 cap by mouth Two (2) times a day New tamsulosin (Flomax 0.4 mg oral capsule) 1 cap by mouth Once a day New traZODone (traZODone 50 mg oral tablet) 0.5 tab(s) by mouth Daily at bedtime Unchanged aspirin (aspirin 81 mg oral delayed release tablet) 1 tab(s) by mouth Once a day Atherosclerosis of aorta Type 2 diabetes mellitus Unchanged atorvastatin (atorvastatin 40 mg oral tablet) 1 tab(s) by mouth Once a day Hyperlipidemia Type 2 diabetes mellitus Unchanged cholecalciferol (Vitamin D3) 2,000 unit(s) by mouth Every day Unchanged DME (Blood Glucose Test Strips) See instructions Type 2 diabetes mellitus EA=BOX of 100 DM E11.9 one touch ultra blue test strips - patient checks once a day Unchanged DME (Lancets) See instructions Type 2 diabetes mellitus One touch delica lancets - patietn checks once a day Unchanged fluticasone nasal (fluticasone 50 mcg/ inh NASAL spray) 50 Microgram in the nose Once a day Seasonal allergies Unchanged latanoprost ophthalmic (latanoprost 0.005% ophthalmic solution) 1 Drops Both eyes Daily at bedtime Unchanged metFORMIN (MetFORMIN (Eqv-Glucophage XR) 500 mg oral tablet, EXTENDED RELEASE) 4 tab(s) by mouth Once a day Type 2 diabetes mellitus Duration: 90 Days Unchanged multivitamin (Multivitamin) 1 tab(s) by mouth Every day Unchanged pioglitazone (pioglitazone 30 mg oral tablet) 1 tab(s) by mouth Every day Unchanged sertraline (sertraline 25 mg oral tablet) 1 tab(s) by mouth Once a day Anxiety Duration: 90 Days Unchanged timolol ophthalmic (Timolol Maleate (Eqv-Timoptic) 0.5% ophthalmic solution) 1 gtt(s) Both eyes Two (2) times a day What How Much When Why Comments Stop Taking amLODIPine (amLODIPine 5 mg oral tablet) 1 tab(s) by mouth Two (2) times a day Hypertension Duration: 100 Days dose increase Stop Taking ibuprofen (ibuprofen 200 mg oral tablet) 2 tab(s) by mouth Every 6 hours as needed for for pain Take with food or milk. Stop Taking lisinopril (lisinopril 40 mg oral tablet) 1 tab(s) by mouth Once a day Hypertension Please take this list to your next doctor s visit. Bring all medications you take, including over the counter medications, herbals and other supplements with you to your doctor s visit. Patients and families are reminded to discard old lists and to update any records with all medication providers or retail pharmacies. Additional Information VACCINATE! IT SAVES LIVES! Members of the community who have not yet received the COVID-19 vaccine and would like to receive it can visit one of [facility] vaccine clinics. There are many vaccine clinic locations within the [facility]. For locations and available times, please visit [email or web address] It is important to note that some COVID mobile vaccine clinics are held outdoors and may be canceled in rainy or stormy conditions. To learn more about pediatric vaccinations (ages 5-11), we invite you to visit the [facility] webpage. https://www.[email or web address].org/pages/[email or web address]-[email or web address] stions.htmlTo learn more about the COVID-19 vaccine, we invite you to visit the CDC website for a list of frequently asked questions.https://www.cdc.gov/coronavirus/2019-ncov/vaccines/faq.html [facility] [employer] Patient Portal Access Instructions: Stay connected with your healthcare team and access your personal medical information anytime with the [employer] Patient Portal. Please follow the directions below to create your [employer] account: 1.Access the email account you provided upon registration to the hospital/physician office.2.Look for an invitation email from [facility].3.Open the email and access the invitation link: AcceptInvitation to [employer].4.Fill in the required small to create your account. To access your account, visit [email or web address]. Click the blue button labeled "Access Patient Portal" and then log in with the username and password that you created in the steps above. You will be able to view your test results, lab results, a summary of your visits, upcoming appointments and more. There is also a convenient messaging option where you can send secure messages to your p rovider. In addition, you will have the ability to download any documents or summaries to your computer and/or send the information securely to a physician. Remember that your healthcare information is confidential, so carefully consider who you will allowto register on the [facility] [employer] Patient Portal for access to your information. You can also access the [facility] Patient Portal on the [facility] darrel. Simply click on "Patient Portal" and then log into your account. If you would like to receive a full copy of your medical records, please contact the [facility] Medical Records Department by calling [phone], Saturday through Saturday between 8 a.m. and 4:30 p.m. HOW TO SAFELY DISPOSE OF PRESCRIPTION MEDICATIONS Please use one of the following methods to safely dispose of your unused medications. 1.Use a drug disposal kit: the drug disposal pouch allows you to safely discard your old and unuseddrugs. Ask your nurse to give you one when you are discharged.2.Visit a local take-back location: Many local pharmacies and police departments have programs that collect old and unwanted prescriptiondrugs. Call your local pharmacy or go to http://Moni[employer]/6G5Hh7t to find one close to you.3.Make use of household items: Use cat litter or old coffee grounds to dispose medications if other options arenot available. Mix your drugs with these household products, seal them in an airtight container andthrow it into the garbage. Call [facility]: [phone] to be sure your drugs can be disposed of in this way. Some medicines may require a different approach.4.Never flush your medications down the toilet. IF YOU HAVE BEEN PRESCRIBED AN OPIOID FOR PAIN If you have been prescribed an opioid (such as hydrocodone, oxycodone or morphine), it is critical to understand the possible side effects and risks of opioid pain medications. Even when taken as directed, opioids can have several side effects including: Tolerance, meaning you might need to take more of a medication for the same pain relief. Nausea, vomiting and/or constipation. Sleepiness, dizziness, dry mouth, confusion, depression or itching. Physical dependence, meaning you have withdrawal symptoms when a medication is stopped, can develop within a few days. KNOW YOUR RESPONSIBILITIES It is important to know exactly how much and how often to take the opioid pain medications you are prescribed. Never take opioids in higher amounts or more often than prescribed. Do not combine opioids with alcohol or other drugs that cause drowsiness, such as benzodiazepines, also known as benzos, including diazepam and alprazolam, muscle relaxants or sleep aids. Never sell or share prescription opioids. This is illegal. Store opioids in a secure place and out of reach of others (including children, family, friends and visitors). The last page of this document has been signed and retained as a CHART COPY. Signatures Patient Education Materials Medication Leaflets My discharge plan and instructions have been reviewed and explained to me and I,TIM ADAMSON understand my current condition and have read and understand these discharge instructions. I have received a written copy of the plan/instructions. If I have questions, I am aware that I should contact my doctor. Patient/Facilities Assistant Signature: Date/Time: Relationship to Patient: Witness Name/Signature: Date/Time: [id number] Discharge summary Date of Service 10/29/2024 Discharge Diagnosis 1. Cardiac arrest 2. Diastolic dysfunction with heart failure 3. Acute hypoxic respiratory failure 4. Acute urinary retention 5. Hyponatremia 6. Altered mental state 7. Type 2 diabetes mellitus 8. Anxiety 9. Hyperlipidemia 10. HTN Hospital Course This is a split/shared visit with Dr. Prado. Pt is an 83-year-old male with history of essentialhypertension, khb-quscvvx-yvxdslppa type 2 diabetes mellitus, dementia, and hyperlipidemia who presented to the hospital with altered mental status and recent fall with subsequent rib fracture. In the ER vitals normal. CBC hemoglobin 12.7, glucose 166, sodium 122, chloride 88, creatinine 0.57, BUN 11. High-sensitivity troponin normal. TSH normal. Opiates positive. Chest x-ray cardiomegaly with pulmonary vascular congestion and age and determinate right rib fractures. Patient was admitted to thehospitalist service for further evaluation of hyponatremia and confusion. Started on IV fluid with normal saline and sodium did gradually improve. The day following admission the patient did experience a cardiac arrest. Patient's nurse noted he was suddenly yelling out, tensed up turned blue became pulseless. 1 round of CPR was performed and ROSC achieved no medications needed. Admitted to the ICU. MRI brain performed due to altered mental status unremarkable.Evaluated by neurology. Transferred back to the floors 10/23 with consults placed to urology for patient's acute urinary retention which required placement of Reilly catheter followed by subsequent failed trial of void and replacement of Reilly catheter. Also cardiology was consulted due to patient's cardiac arrest and widened QRS. He was started on IV Lasix, echocardiogram was ordered. Demonstrating moderate to severe aortic stenosis, IVC is normal. Had increasing oxygen requirement wearing BiPAP, was transferred back to the intensive care unit. Respiratory status improved, transferred back to the stepdown unit on 10/25/2024. Initially on 8L oxygen via NC, has been weaned down to 4L. Chest xray done with atelectasis but no concern for infectious process. Encouraged continued IS use and pulmonary toileting. Overall mentation waxing and waning. An element of toxic/metabolic encephalopathy as well as hospital-associated delirium suspected. PT/OT recommending SNF at discharge. Accepted at [facility]. Pt medically optimized for discharge, family in agreement with plan of care. Will need follow up with Urology, cardiology and neurocare. Allergies NKA Consults Consult to Physician - Ordered -- 10/22/24 8:52:00 EDT, WALTER CUEVAS MD, Routine, Other, Encephalopathy; pleasantly confused; worsened from baseline; MRI brain and B12 level ordered Consult to Physician - Ordered -- 10/24/24 7:25:00 EDT, KUN ESPINAL MD, Routine, s/p cardiac arrest? wide qrs eval Consult to Physician - Ordered -- 10/24/24 13:21:00 EDT, LILLY MCINTOSH MD, Routine, family request acute urinary retention Imaging Results and Diagnostics XR Chest 1 View Result Date: October 28, 2024 Verified By: SOSA YAO DO CLINICAL STATEMENT: IMPRESSION: Relatively stable bibasilar airspace opacities and small right pleuraleffusion. I have reviewed the resident's preliminary report and agree with findings andimpression. CT Thorax w/ Contrast Result Date: October 26, 2024 Verified By: BRIANA TREVIZO, GIOVANI Stubbs CLINICAL STATEMENT: IMPRESSION: 1. Moderate bilateral lower lobe airspace disease with small right pleuraleffusion.2. Moderate cardiomegaly with atherosclerotic coronary artery calcification.3. Moderate T3 vertebral body compression fracture is new since 02/20/2024.4. Mild T2 compression fracture is unchanged since 02/20/2024.5. Multiple bilateral rib fractures are of indeterminate age. XR Chest 1 View Result Date: October 26, 2024 Verified By: MIRIAN DENNY MD CLINICAL STATEMENT: IMPRESSION: Bilateral pleural effusions of small volume. Associated bibasilaratelectasis and or consolidation. XR Chest 1 View Result Date: October 25, 2024 Verified By: TIEN CAN MD CLINICAL STATEMENT: IMPRESSION: Small bilateral effusions with hazy airspace disease at the lung bases. XR Chest 1 View Result Date: October 24, 2024 Verified By: HUBER CORRAL DO CLINICAL STATEMENT: IMPRESSION: []Image findings compatible with congestive failure. Superimposing airspaceprocess considered. Correlate with clinical findings. CT Head or Brain w/o Contrast Result Date: October 23, 2024 Verified By: NÉSTOR SNYDER MD CLINICAL STATEMENT: IMPRESSION: No acute intracranial hemorrhage, mass effect or midline shift. I have personally reviewed the images of this examination and agree with theresident's findings and interpretation. MRI Brain w/o Contrast Result Date: October 22, 2024 Verified By: RASHMI AGUIRRE DO CLINICAL STATEMENT: IMPRESSION: 1. No acute intracranial abnormality.2. Primarily confluent periventricular white matter FLAIR hyperintensities,right greater than left. This is nonspecific and may represent chronicmicrovascular ischemic changes. XR Enteric Tube Placement Result Date: October 21, 2024 Verified By: SANG KNUTSON DO CLINICAL STATEMENT: IMPRESSION: 1. Orogastric tube in functional position.2. No acute pulmonary disease. Physical Exam Vitals and Measurements T: 36.8 C (Oral) TMIN: 36.5 C (Oral) TMAX: 36.8 C (Oral) HR: 86 (Monitored) RR: 22 BP: 108/78 SpO2:93% Weight Dosing Weight: 70.5 kg (10/20/24) General: Alert and oriented x 2, NAD Head: Normocephalic, mmm, sclera nonicteric Cardiovascular: Normal rate and rhythm, no murmur, - edema Respiratory: Lungs diminished, easy Abdomen: soft and non-distended, bowel sounds active all 4 quadrants Neurological: Moving all 4 extremities, speech clear Psychological: normal affect, cooperative, good eye contact Code Status Code Status - Ordered -- 10/25/24 4:52:00 EDT, DNRCC-Arrest Do Not Intubate, Constant Order Admission Date 10/20/2024 Discharge Date 10/29/2024 Medications New Prescription docusate (Colace 100 mg oral capsule)1 cap by mouth two (2) times a day. tamsulosin (Flomax 0.4 mg oral capsule)1 cap by mouth once a day. traZODone (traZODone 50 mg oral tablet)0.5 tab(s) by mouth daily at bedtime. Unchanged aspirin (aspirin 81 mg oral delayed release tablet)1 tab(s) by mouth once a day. Refills: 3. atorvastatin (atorvastatin 40 mg oral tablet)1 tab(s) by mouth once a day. Refills: 3. cholecalciferol (Vitamin D3)2,000 unit(s) by mouth every day. DME (Blood Glucose Test Strips)EA=BOX of 100 DM E11.9 one touch ultra blue test strips - patient checks once a day. Refills: 3. DME (Lancets)One touch delica lancets - patietn checks once a day. Refills: 5. fluticasone nasal (fluticasone 50 mcg/inh NASAL spray)50 Microgram in the nose once a day. Refills:2. latanoprost ophthalmic (latanoprost 0.005% ophthalmic solution)1 Drops Both eyes daily at bedtime. metFORMIN (MetFORMIN (Eqv-Glucophage XR) 500 mg oral tablet, EXTENDED RELEASE)4 tab(s) by mouth once a day for 90 Days. Refills: 3. multivitamin (Multivitamin)1 tab(s) by mouth every day. pioglitazone (pioglitazone 30 mg oral tablet)1 tab(s) by mouth every day. Refills: 3. sertraline (sertraline 25 mg oral tablet)1 tab(s) by mouth once a day for 90 Days. Refills: 0. timolol ophthalmic (Timolol Maleate (Eqv-Timoptic) 0.5% ophthalmic solution)1 gtt(s) Both eyes two (2) times a day. Discontinued amLODIPine (amLODIPine 5 mg oral tablet)1 tab(s) by mouth two (2) times a day for 100 Days. dose increase. Refills: 3. ibuprofen (ibuprofen 200 mg oral tablet)2 tab(s) by mouth every 6 hours as needed for pain. Take with food or milk.. lisinopril (lisinopril 40 mg oral tablet)1 tab(s) by mouth once a day. Refills: 3. Follow Up Follow Up with RASHMI PRICE APRN-PITCH FILLER When:Within 1-2 days Where:[address] [place] [address]- [phone] Additional Information: Please call the office to schedule a hospital follow up appointment. Follow Up Appointments Transfer of Care OT - Ordered -- Reason for therapy: generalized weakness, 10/29/24 13:40:00 EDT Transfer of Care PT - Ordered -- Reason for therapy: generalized weakness, 10/29/24 13:40:00 EDT Follow Up Labs/Studies Discharge Labs No Follow-up Labs Discharge Studies No Follow-up Studies Discharge Diet Transfer of Care Diet - Ordered -- Type of Diet: Regular Diet, Calories Permitted: 1800 kcal, 10/29/24 13:40:00 EDT Discharge Activity Transfer of Care Activity - Ordered -- As instructed by therapy, 10/29/24 13:40:00 EDT Condition on Discharge Stable Discharge Disposition SNF Time Spent > 30 minutes Digitally Signed by PHUONG NEAL on 10/29/2024 02:01 PM [facility] [id number] Cardiology Progress note Subjective Patient continued to be hypoxic on 6 to 8 L of oxygen Chest x-ray was reviewed from this morning Electrolytes are improving sodium 134 today Objective Vitals and Measurements T: 36.5 C (Oral) TMIN: 36.4 C (Oral) TMAX: 36.7 C (Oral) HR: 94 (Monitored) RR: 22 BP: 131/98 SpO2:94% Intake and Output 7AM Yesterday to 7AM Today Intake and Output (Last 24 hours) Intake Oral Intake 570.00 Output Urinary Catheter Output: 1075.00 Stool Count 0.00 Total Summary Total Intake 570.00 Total Output 1075.00 Fluid Balance -505.00 Physical Exam Sitting comfortably in the chair Mid to late peaking systolic murmur Lungs are very diminished in the bases and coarse No pedal edema Weight Dosing Weight: 70.5 kg (10/20/24) Medications Medications (17) Active Scheduled: (12) aspirin 81 mg EC 81 mg 1 tab(s), Oral, qDay atorvastatin 40 mg tablet 40 mg 1 tab(s), Oral, qDay fluticasone nasal 0.05 mg/inh Nebo 50 mcg 1 spray(s), Nasal, qDay guaifenesin 600 mg ER 1,200 mg 2 tab(s), Oral, BID heparin 5,000 units/mL (1 mL) vial 5,000 unit(s) 1 mL, Subcutaneous, q8h insulin lispro 100 units/mL Soln (3 mL) Give 0-5 units/dose, Subcutaneous, TIDAC latanoprost ophthalmic 0.005% Solution 1 drop(s), Eyes, both, qHS menthol-zinc oxide topical ointment 4oz 1 darrel, Topical, amhs sertraline 25 mg tablet 25 mg 1 tab(s), Oral, qDay tamsulosin 0.4 mg Capsule 0.4 mg 1 cap(s), Oral, qDay timolol ophthalmic 0.5% Solution 5 mL BTL 1 drop(s), Eyes, both, BID traZODONE 50 mg Tablet 25 mg 0.5 tab(s), Oral, qHS Continuous: (0) PRN: (5) acetaminophen 325 mg Tablet 650 mg 2 tab(s), Oral, q4h albuterol - ipratropium 2.5 mg-0.5 mg/3 mL Inhal Bel UD 3 mL, Inhalation, q4hRT dextrose 50% Solution Disp syringe 50 mL 25 gram(s) 50 mL, IV Push, AsDirected menthol-zinc oxide topical ointment 4oz 1 darrel, Topical, AsDirected trimethobenzamide 200 mg/2 mL Solution 200 mg 2 mL, Intramuscular, q6h Lab Results 10/28 04:23 WBC: 9.9 Hgb: 12.2 L Hct: 35.4 L Platelet: 311 Glucose Level: 200 H Sodium Level: 134 L Potassium Level: 3.6 BUN: 25.0 H Creatinine Lvl (s): 0.66 EKG No qualifying data available. Anticipated Date of Discharge Acute respiratory failure of mixed etiology Acute mild exacerbation of HFpEF Chronic left bundle branch block Recurrent syncope Moderate aortic stenosis Acute/acute on chronic encephalopathy Concern for dementia Hyponatremia Type 2 diabetes mellitus Hypertension Hyperlipidemia Plan: No sign of volume overload His cardiac arrest was attributed to the vasovagal episode with the urinary retention Moderate to severe aortic stenosis not critical does not need any inpatient intervention Denies any chest pain JVP is flat no pedal edema Aggressive pulmonary toilet with incentive spirometer No indication for any diuretic Digitally Signed by BELKYS ALCANTAR MD on 10/28/2024 08:29 PM [facility] [id number] Note Date of Service 10/28/2024 Chief Complaint Hypoxia Subjective Pt is an 83-year-old male with history of essential hypertension, iga-kfhyjjn-bqrpvtuev type 2 diabetes mellitus, dementia, and hyperlipidemia who presented to the hospital with altered mental statusand recent fall with subsequent rib fracture. In the ER vitals normal. CBC hemoglobin 12.7, glucose 166, sodium 122, chloride 88, creatinine 0.57, BUN 11. High-sensitivity troponin normal. TSH normal. Opiates positive. Chest x-ray cardiomegaly with pulmonary vascular congestion and age and determinate right rib fractures. Patient was admitted to the hospitalist service for further evaluation of hyponatremia and confusion. Started on IV fluid with normal saline and sodium did gradually improve. The day following admission the patient did experience a cardiac arrest. Patient's nurse noted he was suddenly yelling out, tensed up turned blue became pulseless. 1 round of CPR was performed and ROSC achieved no medications needed. Admitted to the ICU. MRI brain performed due to altered mental status unremarkable. Transferred back to the floors 10/23 with consults placed to urology for patient's acute urinary retention which required placement of Reilly catheter followed by subsequent failed trial of void and replacement of Reilly catheter. Also cardiology was consulted due to patient's cardiacarrest and widened QRS. He was started on IV Lasix, echocardiogram was ordered. Demonstrating moderate to severe aortic stenosis, IVC is normal. Had increasing oxygen requirement wearing BiPAP, was transferred back to the intensive care unit. Respiratory status improved, transferred back to the stepdown unit on 10/25/2024. Pt sitting in chair. Alert to self and place. Reoriented quickly. Denies any current complaints. Denies SOB, chest pain or chest tightness. Currently on 8L highflow. Family at bedside. Objective Vitals and Measurements T: 36.4 C (Oral) TMIN: 36.4 C (Oral) TMAX: 37.3 C (Oral) HR: 98 (Monitored) RR: 23 BP: 128/81 SpO2:91% Intake and Output 7AM Yesterday to 7AM Today Intake and Output (Last 24 hours) Intake Oral Intake 810.00 Output Urinary Catheter Output: 1375.00 Stool Count 0.00 Total Summary Total Intake 810.00 Total Output 1375.00 Fluid Balance -565.00 Physical Exam General: Alert and oriented x 3, NAD Head: Normocephalic, mmm, sclera nonicteric Cardiovascular: Normal rate and rhythm, no murmur, - edema Respiratory: Lungs diminished, easy Abdomen: soft and non-distended, bowel sounds active all 4 quadrants Neurological: Moving all 4 extremities, speech clear Psychological: normal affect, cooperative, good eye contact Weight Dosing Weight: 70.5 kg (10/20/24) Medications Medications (17) Active Scheduled: (12) aspirin 81 mg EC 81 mg 1 tab(s), Oral, qDay atorvastatin 40 mg tablet 40 mg 1 tab(s), Oral, qDay fluticasone nasal 0.05 mg/inh Nebo 50 mcg 1 spray(s), Nasal, qDay guaifenesin 600 mg ER 1,200 mg 2 tab(s), Oral, BID heparin 5,000 units/mL (1 mL) vial 5,000 unit(s) 1 mL, Subcutaneous, q8h insulin lispro 100 units/mL Soln (3 mL) Give 0-5 units/dose, Subcutaneous, TIDAC latanoprost ophthalmic 0.005% Solution 1 drop(s), Eyes, both, qHS menthol-zinc oxide topical ointment 4oz 1 darrel, Topical, amhs sertraline 25 mg tablet 25 mg 1 tab(s), Oral, qDay tamsulosin 0.4 mg Capsule 0.4 mg 1 cap(s), Oral, qDay timolol ophthalmic 0.5% Solution 5 mL BTL 1 drop(s), Eyes, both, BID traZODONE 50 mg Tablet 25 mg 0.5 tab(s), Oral, qHS Continuous: (0) PRN: (5) acetaminophen 325 mg Tablet 650 mg 2 tab(s), Oral, q4h albuterol - ipratropium 2.5 mg-0.5 mg/3 mL Inhal Bel UD 3 mL, Inhalation, q4hRT dextrose 50% Solution Disp syringe 50 mL 25 gram(s) 50 mL, IV Push, AsDirected menthol-zinc oxide topical ointment 4oz 1 darrel, Topical, AsDirected trimethobenzamide 200 mg/2 mL Solution 200 mg 2 mL, Intramuscular, q6h Lab Results 10/28 04:23 WBC: 9.9 Hgb: 12.2 L Hct: 35.4 L Platelet: 311 Glucose Level: 200 H Sodium Level: 134 L Potassium Level: 3.6 BUN: 25.0 H Creatinine Lvl (s): 0.66 10/27 05:53 WBC: 9.8 Hgb: 12.2 L Hct: 35.2 L Platelet: 288 Neutrophil %: 82.7 H Glucose Level: 192 H Sodium Level: 131 L Potassium Level: 3.9 BUN: 25.0 H Creatinine Lvl (s): 0.64 EKG No qualifying data available. Assessment/Plan 1. Cardiac arrest 2. Diastolic dysfunction with heart failure 3. Acute hypoxic respiratory failure 4. Acute urinary retention 5. Hyponatremia 6. Altered mental state 7. Type 2 diabetes mellitus 8. Anxiety 9. Hyperlipidemia 10. Hypertension Status post cardiac arrest, cardiology following. Echocardiogram demonstrating moderate to severe aortic stenosis. Plan for outpatient follow-up in 1 to 2 weeks. Acute HFpEF, euvolemic. No further diuresis Currently on 8L via NC. continue to wean for oxygen saturation of 90% or greater.Encouraged IS use.patient re educated on proper use. No clinical indication for antibiotics Urinary retention, continue Reilly catheter, will need outpatient follow up with Urology. Continue flomax Hyponatremia, continues to improve, continue to monitor Altered mental status, multifactorial. An element of toxic/metabolic encephalopathy as well as hospital-associated delirium suspected. Did have MRI brain and was seen by neurology, MRI was unremarkable. Type 2 diabetes, Continue sliding scale insulin. Goal <180. Continue to hold oral medications, plan to resume at discharge All other chronic conditions stable Plan for discharge to SNF once medically stable. Discussed with collaborative physician Dr. Prado Level of Care Indication SD non-mon (6L O2 requirement) DVT Prophylaxis Heparin SQ Maintenance IVF Indication NA / No maintenance IVF Indwelling Urinary Catheter Indication Other: specify in note Anticipated Timeline of Discharge 48 hours Anticipated DC Disposition SNF Digitally Signed by PHUONG NEAL on 10/28/2024 12:17 PM [facility] [id number] Note* Exam Date Time Procedure Performing Provider Status 10/28/24 12:49 PM XR Chest 1 View SSOA YAO DO; Auth (Verified) [id number] ORIGINAL EXAMINATION: ONE XRAY VIEW OF THE CHEST10/28/2024 12:55 pm COMPARISON: CT chest one view chest radiograph 10/26/2024 HISTORY: ORDERING SYSTEM PROVIDED HISTORY: Reason for Exam: SOB FINDINGS: The cardiomediastinal contours are stable. Atherosclerosis of the aorta. Small right pleural effusion with adjacent right basilar airspace opacities is stable. Left basilar/retrocardiac airspace opacities are also not significantly changed. No large left pleural effusion or visible pneumothorax. The visualized osseous structures are unchanged. IMPRESSION: Relatively stable bibasilar airspace opacities and small right pleural effusion. I have reviewed the resident's preliminary report and agree with findings and impression. Interpreted by: Sosa Yao Preliminary Report By: Nelida Padilla Electronically signed By Sosa Yao Dictated Date: 10/28/2024 4:10:13 PM Prelim Date: 10/28/2024 4:14:13 PM Sign Date: 10/28/2024 4:31:31 PM Ordering Provider: ROSI PRADO Interpreted by: Soas Yao Preliminary Report By: Nelida Padilla Electronically signed By Sosa Yao Dictated Date: 10/28/2024 4:10:13 PM Prelim Date: 10/28/2024 4:14:13 PM Sign Date: 10/28/2024 4:31:31 PM Ordering Provider: ROSI PRADO [facility] [id number] Note Date of Service 10/28/2024 Chief Complaint Hypoxia Subjective Pt is an 83-year-old male with history of essential hypertension, xcm-hijgdpv-fjksywhov type 2 diabetes mellitus, dementia, and hyperlipidemia who presented to the hospital with altered mental statusand recent fall with subsequent rib fracture. In the ER vitals normal. CBC hemoglobin 12.7, glucose 166, sodium 122, chloride 88, creatinine 0.57, BUN 11. High-sensitivity troponin normal. TSH normal. Opiates positive. Chest x-ray cardiomegaly with pulmonary vascular congestion and age and determinate right rib fractures. Patient was admitted to the hospitalist service for further evaluation of hyponatremia and confusion. Started on IV fluid with normal saline and sodium did gradually improve. The day following admission the patient did experience a cardiac arrest. Patient's nurse noted he was suddenly yelling out, tensed up turned blue became pulseless. 1 round of CPR was performed and ROSC achieved no medications needed. Admitted to the ICU. MRI brain performed due to altered mental status unremarkable. Transferred back to the floors 10/23 with consults placed to urology for patient's acute urinary retention which required placement of Reilly catheter followed by subsequent failed trial of void and replacement of Reilly catheter. Also cardiology was consulted due to patient's cardiacarrest and widened QRS. He was started on IV Lasix, echocardiogram was ordered. Demonstrating moderate to severe aortic stenosis, IVC is normal. Had increasing oxygen requirement wearing BiPAP, was transferred back to the intensive care unit. Respiratory status improved, transferred back to the stepdown unit on 10/25/2024. Pt sitting in chair. Alert to self and place. Reoriented quickly. Denies any current complaints. Denies SOB, chest pain or chest tightness. Currently on 8L highflow. Family at bedside. Objective Vitals and Measurements T: 36.4 C (Oral) TMIN: 36.4 C (Oral) TMAX: 37.3 C (Oral) HR: 98 (Monitored) RR: 23 BP: 128/81 SpO2:91% Intake and Output 7AM Yesterday to 7AM Today Intake and Output (Last 24 hours) Intake Oral Intake 810.00 Output Urinary Catheter Output: 1375.00 Stool Count 0.00 Total Summary Total Intake 810.00 Total Output 1375.00 Fluid Balance -565.00 Physical Exam General: Alert and oriented x 3, NAD Head: Normocephalic, mmm, sclera nonicteric Cardiovascular: Normal rate and rhythm, no murmur, - edema Respiratory: Lungs diminished, easy Abdomen: soft and non-distended, bowel sounds active all 4 quadrants Neurological: Moving all 4 extremities, speech clear Psychological: normal affect, cooperative, good eye contact Weight Dosing Weight: 70.5 kg (10/20/24) Medications Medications (17) Active Scheduled: (12) aspirin 81 mg EC 81 mg 1 tab(s), Oral, qDay atorvastatin 40 mg tablet 40 mg 1 tab(s), Oral, qDay fluticasone nasal 0.05 mg/inh Nebo 50 mcg 1 spray(s), Nasal, qDay guaifenesin 600 mg ER 1,200 mg 2 tab(s), Oral, BID heparin 5,000 units/mL (1 mL) vial 5,000 unit(s) 1 mL, Subcutaneous, q8h insulin lispro 100 units/mL Soln (3 mL) Give 0-5 units/dose, Subcutaneous, TIDAC latanoprost ophthalmic 0.005% Solution 1 drop(s), Eyes, both, qHS menthol-zinc oxide topical ointment 4oz 1 darrel, Topical, amhs sertraline 25 mg tablet 25 mg 1 tab(s), Oral, qDay tamsulosin 0.4 mg Capsule 0.4 mg 1 cap(s), Oral, qDay timolol ophthalmic 0.5% Solution 5 mL BTL 1 drop(s), Eyes, both, BID traZODONE 50 mg Tablet 25 mg 0.5 tab(s), Oral, qHS Continuous: (0) PRN: (5) acetaminophen 325 mg Tablet 650 mg 2 tab(s), Oral, q4h albuterol - ipratropium 2.5 mg-0.5 mg/3 mL Inhal Bel UD 3 mL, Inhalation, q4hRT dextrose 50% Solution Disp syringe 50 mL 25 gram(s) 50 mL, IV Push, AsDirected menthol-zinc oxide topical ointment 4oz 1 darrel, Topical, AsDirected trimethobenzamide 200 mg/2 mL Solution 200 mg 2 mL, Intramuscular, q6h Lab Results 10/28 04:23 WBC: 9.9 Hgb: 12.2 L Hct: 35.4 L Platelet: 311 Glucose Level: 200 H Sodium Level: 134 L Potassium Level: 3.6 BUN: 25.0 H Creatinine Lvl (s): 0.66 10/27 05:53 WBC: 9.8 Hgb: 12.2 L Hct: 35.2 L Platelet: 288 Neutrophil %: 82.7 H Glucose Level: 192 H Sodium Level: 131 L Potassium Level: 3.9 BUN: 25.0 H Creatinine Lvl (s): 0.64 EKG No qualifying data available. Assessment/Plan 1. Cardiac arrest 2. Diastolic dysfunction with heart failure 3. Acute hypoxic respiratory failure 4. Acute urinary retention 5. Hyponatremia 6. Altered mental state 7. Type 2 diabetes mellitus 8. Anxiety 9. Hyperlipidemia 10. Hypertension Status post cardiac arrest, cardiology following. Echocardiogram demonstrating moderate to severe aortic stenosis. Plan for outpatient follow-up in 1 to 2 weeks. Acute HFpEF, euvolemic. No further diuresis Currently on 8L via NC. continue to wean for oxygen saturation of 90% or greater.Encouraged IS use.patient re educated on proper use. No clinical indication for antibiotics Urinary retention, continue Reilly catheter, will need outpatient follow up with Urology. Continue flomax Hyponatremia, continues to improve, continue to monitor Altered mental status, multifactorial. An element of toxic/metabolic encephalopathy as well as hospital-associated delirium suspected. Did have MRI brain and was seen by neurology, MRI was unremarkable. Type 2 diabetes, Continue sliding scale insulin. Goal <180. Continue to hold oral medications, plan to resume at discharge All other chronic conditions stable Plan for discharge to SNF once medically stable. Discussed with collaborative physician Dr. Prado Level of Care Indication SD non-mon (6L O2 requirement) DVT Prophylaxis Heparin SQ Maintenance IVF Indication NA / No maintenance IVF Indwelling Urinary Catheter Indication Other: specify in note Anticipated Timeline of Discharge 48 hours Anticipated DC Disposition SNF Digitally Signed by PHUONG NEAL on 10/28/2024 12:17 PM [id number] Note Date of Service 10/27/2024 Chief Complaint Shortness of breath, confusion Subjective 83-year-old male with history of essential hypertension, [id number] type 2 diabetes mellitus, dementia, hyperlipidemia presented to the hospital with altered mental status and recent fall with subsequent rib fracture. In the ER vitals normal. CBC hemoglobin 12.7, glucose 166, sodium 122,chloride 88, creatinine 0.57, BUN 11. High-sensitivity troponin normal. TSH normal. Opiates positive. Chest x-ray cardiomegaly with pulmonary vascular congestion and age and determinate right rib fractures. Patient was admitted to the hospitalist service for further evaluation of hyponatremia and confusion. Started on IV fluid with normal saline and sodium did gradually improve. The day following admission the patient did experience a cardiac arrest. Patient's nurse noted he was suddenly yelling out, tensed up turned blue became pulseless. 1 round of CPR was performed and ROSC achieved no medications needed. Admitted to the ICU. MRI brain performed due to altered mental status unremarkable. Transferred back to the floors with consults placed to urology for patient's acute urinary retention which required placement of Reilly catheter followed by subsequent failed trial of void and replacement of Reilly catheter. Also cardiology was consulted due to patient's cardiac arrest and widened QRS. He was started on IV Lasix, echocardiogram was ordered. Demonstrating moderate to severe aortic stenosis, IVC is normal. Had increasing oxygen requirement wearing BiPAP, was transferred back to theintensive care unit. Respiratory status improved, transferred back to the stepdown unit on 10/25/2024. On exam today he is sitting up in bed, daughter at the bedside. No chest pain or shortness of breath. He is alert, oriented to person and place. No nausea or vomiting. Objective Vitals and Measurements T: 36.9 C (Oral) TMIN: 36.6 C (Axillary) TMAX: 37.3 C (Oral) HR: 96 (Monitored) RR: 22 BP: 113/74 SpO2: 92% Intake and Output 7AM Yesterday to 7AM Today Intake and Output (Last 24 hours) Intake Oral Intake 835.00 Output Urinary Catheter Output: 1600.00 Stool Count 0.00 Total Summary Total Intake 835.00 Total Output 1600.00 Fluid Balance -765.00 Physical Exam Physical Exam General: Alert, pleasantly confused. Oriented to person and place Skin: No rash. Warm, Dry, Intact HEENT: Head is normocephalic and atraumatic. No lesions. Pupils equal in size. Extraocular movements within normal limits. Nose: No septal deviation. Mouth: Oropharynx mucosa is without lesion. Neck: Supple. No lymphadenopathy, thyromegaly noted. Lungs: Bilaterally clear/diminished breath sounds with no crepitation or wheeze. Unlabored Cardiovascular: Heart is regular rhythm, S1S2, No extra-audible heart tones Abdomen: Abdomen is soft, nontender. Bowel sounds positive all four quadrants. Extremities: No clubbing, cyanosis or edema. Peripheral pulses palpable. No calf tenderness. Adequate peripheral circulation. Neurological: Following simple commands, moving all extremities. Weight Dosing Weight: 70.5 kg (10/20/24) Medications Medications (17) Active Scheduled: (12) aspirin 81 mg EC 81 mg 1 tab(s), Oral, qDay atorvastatin 40 mg tablet 40 mg 1 tab(s), Oral, qDay fluticasone nasal 0.05 mg/inh Nebo 50 mcg 1 spray(s), Nasal, qDay guaifenesin 600 mg ER 1,200 mg 2 tab(s), Oral, BID heparin 5,000 units/mL (1 mL) vial 5,000 unit(s) 1 mL, Subcutaneous, q8h insulin lispro 100 units/mL Soln (3 mL) Give 0-5 units/dose, Subcutaneous, TIDAC latanoprost ophthalmic 0.005% Solution 1 drop(s), Eyes, both, qHS menthol-zinc oxide topical ointment 4oz 1 darrel, Topical, amhs sertraline 25 mg tablet 25 mg 1 tab(s), Oral, qDay tamsulosin 0.4 mg Capsule 0.4 mg 1 cap(s), Oral, qDay timolol ophthalmic 0.5% Solution 5 mL BTL 1 drop(s), Eyes, both, BID traZODONE 50 mg Tablet 25 mg 0.5 tab(s), Oral, qHS Continuous: (0) PRN: (5) acetaminophen 325 mg Tablet 650 mg 2 tab(s), Oral, q4h albuterol - ipratropium 2.5 mg-0.5 mg/3 mL Inhal Bel UD 3 mL, Inhalation, q4hRT dextrose 50% Solution Disp syringe 50 mL 25 gram(s) 50 mL, IV Push, AsDirected menthol-zinc oxide topical ointment 4oz 1 darrel, Topical, AsDirected trimethobenzamide 200 mg/2 mL Solution 200 mg 2 mL, Intramuscular, q6h Lab Results 10/27 05:53 WBC: 9.8 Hgb: 12.2 L Hct: 35.2 L Platelet: 288 Neutrophil %: 82.7 H Glucose Level: 192 H Sodium Level: 131 L Potassium Level: 3.9 BUN: 25.0 H Creatinine Lvl (s): 0.64 10/26 07:48 WBC: 8.7 Hgb: 12.7 L Hct: 37.1 L Platelet: 258 Neutrophil %: 78.5 H Glucose Level: 154 H Sodium Level: 129 L Potassium Level: 3.9 BUN: 23.0 H Creatinine Lvl (s): 0.58 L EKG No qualifying data available. Assessment/Plan 1. Cardiac arrest 2. Diastolic dysfunction with heart failure 3. Acute hypoxic respiratory failure 4. Acute urinary retention 5. Hyponatremia 6. Altered mental state 7. Type 2 diabetes mellitus 8. Anxiety 9. Hyperlipidemia 10. Hypertension Status post cardiac arrest, cardiology following. Echocardiogram demonstrating moderate to severe aortic stenosis. Discussed with cardiology today, plan for outpatient follow-up. Acute HFpEF, no plan for any further diuresis, IVC normal-sized on echocardiogram. Discussed with cardiology. Now on 6 L nasal cannula, continue to wean for oxygen saturation of 90% or greater. CT thorax with small effusion and atelectasis. Personally reviewed. Encourage incentive spirometer. No concern for infection, no need for antibiotics at this time Urinary retention, continue Reilly catheter Hyponatremia, sodium 131 today. BMP in the morning Altered mental status, multifactorial. An element of toxic/metabolic encephalopathy as well as hospital-associated delirium suspected. Will start trazodone 25 mg nightly. If he does become agitated recommend as needed Zyprexa IM. Avoid benzodiazepines. Did have MRI brain and was seen by neurology, MRI was unremarkable. Type 2 diabetes, Continue sliding scale insulin All other chronic conditions stable CODE STATUS: DNR/DNI Discussed with patient and family at bedside, discussed with Dr. Prado Level of Care Indication SD non-mon (6L O2 requirement) DVT Prophylaxis Heparin SQ Maintenance IVF Indication NA / No maintenance IVF Indwelling Urinary Catheter Indication Obstruction Anticipated Timeline of Discharge 24 hours Anticipated DC Disposition SNF Time Spent Total time spent reviewing labs, diagnostics, evaluating the patient, and medical decision makin minutes Digitally Signed by DEIDRA RODRIGUEZ on 10/27/2024 12:03 PM [facility] [id number] Note Date of Service 10/27/2024 Chief Complaint Shortness of breath, confusion Subjective 83-year-old male with history of essential hypertension, [id number] type 2 diabetes mellitus, dementia, hyperlipidemia presented to the hospital with altered mental status and recent fall with subsequent rib fracture. In the ER vitals normal. CBC hemoglobin 12.7, glucose 166, sodium 122,chloride 88, creatinine 0.57, BUN 11. High-sensitivity troponin normal. TSH normal. Opiates positive. Chest x-ray cardiomegaly with pulmonary vascular congestion and age and determinate right rib fractures. Patient was admitted to the hospitalist service for further evaluation of hyponatremia and confusion. Started on IV fluid with normal saline and sodium did gradually improve. The day following admission the patient did experience a cardiac arrest. Patient's nurse noted he was suddenly yelling out, tensed up turned blue became pulseless. 1 round of CPR was performed and ROSC achieved no medications needed. Admitted to the ICU. MRI brain performed due to altered mental status unremarkable. Transferred back to the floors with consults placed to urology for patient's acute urinary retention which required placement of Reilly catheter followed by subsequent failed trial of void and replacement of Reilly catheter. Also cardiology was consulted due to patient's cardiac arrest and widened QRS. He was started on IV Lasix, echocardiogram was ordered. Demonstrating moderate to severe aortic stenosis, IVC is normal. Had increasing oxygen requirement wearing BiPAP, was transferred back to theintensive care unit. Respiratory status improved, transferred back to the stepdown unit on 10/25/2024. On exam today he is sitting up in bed, daughter at the bedside. No chest pain or shortness of breath. He is alert, oriented to person and place. No nausea or vomiting. Objective Vitals and Measurements T: 36.9 C (Oral) TMIN: 36.6 C (Axillary) TMAX: 37.3 C (Oral) HR: 96 (Monitored) RR: 22 BP: 113/74 SpO2: 92% Intake and Output 7AM Yesterday to 7AM Today Intake and Output (Last 24 hours) Intake Oral Intake 835.00 Output Urinary Catheter Output: 1600.00 Stool Count 0.00 Total Summary Total Intake 835.00 Total Output 1600.00 Fluid Balance -765.00 Physical Exam Physical Exam General: Alert, pleasantly confused. Oriented to person and place Skin: No rash. Warm, Dry, Intact HEENT: Head is normocephalic and atraumatic. No lesions. Pupils equal in size. Extraocular movements within normal limits. Nose: No septal deviation. Mouth: Oropharynx mucosa is without lesion. Neck: Supple. No lymphadenopathy, thyromegaly noted. Lungs: Bilaterally clear/diminished breath sounds with no crepitation or wheeze. Unlabored Cardiovascular: Heart is regular rhythm, S1S2, No extra-audible heart tones Abdomen: Abdomen is soft, nontender. Bowel sounds positive all four quadrants. Extremities: No clubbing, cyanosis or edema. Peripheral pulses palpable. No calf tenderness. Adequate peripheral circulation. Neurological: Following simple commands, moving all extremities. Weight Dosing Weight: 70.5 kg (10/20/24) Medications Medications (17) Active Scheduled: (12) aspirin 81 mg EC 81 mg 1 tab(s), Oral, qDay atorvastatin 40 mg tablet 40 mg 1 tab(s), Oral, qDay fluticasone nasal 0.05 mg/inh Nebo 50 mcg 1 spray(s), Nasal, qDay guaifenesin 600 mg ER 1,200 mg 2 tab(s), Oral, BID heparin 5,000 units/mL (1 mL) vial 5,000 unit(s) 1 mL, Subcutaneous, q8h insulin lispro 100 units/mL Soln (3 mL) Give 0-5 units/dose, Subcutaneous, TIDAC latanoprost ophthalmic 0.005% Solution 1 drop(s), Eyes, both, qHS menthol-zinc oxide topical ointment 4oz 1 darrel, Topical, amhs sertraline 25 mg tablet 25 mg 1 tab(s), Oral, qDay tamsulosin 0.4 mg Capsule 0.4 mg 1 cap(s), Oral, qDay timolol ophthalmic 0.5% Solution 5 mL BTL 1 drop(s), Eyes, both, BID traZODONE 50 mg Tablet 25 mg 0.5 tab(s), Oral, qHS Continuous: (0) PRN: (5) acetaminophen 325 mg Tablet 650 mg 2 tab(s), Oral, q4h albuterol - ipratropium 2.5 mg-0.5 mg/3 mL Inhal Bel UD 3 mL, Inhalation, q4hRT dextrose 50% Solution Disp syringe 50 mL 25 gram(s) 50 mL, IV Push, AsDirected menthol-zinc oxide topical ointment 4oz 1 darrel, Topical, AsDirected trimethobenzamide 200 mg/2 mL Solution 200 mg 2 mL, Intramuscular, q6h Lab Results 10/27 05:53 WBC: 9.8 Hgb: 12.2 L Hct: 35.2 L Platelet: 288 Neutrophil %: 82.7 H Glucose Level: 192 H Sodium Level: 131 L Potassium Level: 3.9 BUN: 25.0 H Creatinine Lvl (s): 0.64 10/26 07:48 WBC: 8.7 Hgb: 12.7 L Hct: 37.1 L Platelet: 258 Neutrophil %: 78.5 H Glucose Level: 154 H Sodium Level: 129 L Potassium Level: 3.9 BUN: 23.0 H Creatinine Lvl (s): 0.58 L EKG No qualifying data available. Assessment/Plan 1. Cardiac arrest 2. Diastolic dysfunction with heart failure 3. Acute hypoxic respiratory failure 4. Acute urinary retention 5. Hyponatremia 6. Altered mental state 7. Type 2 diabetes mellitus 8. Anxiety 9. Hyperlipidemia 10. Hypertension Status post cardiac arrest, cardiology following. Echocardiogram demonstrating moderate to severe aortic stenosis. Discussed with cardiology today, plan for outpatient follow-up. Acute HFpEF, no plan for any further diuresis, IVC normal-sized on echocardiogram. Discussed with cardiology. Now on 6 L nasal cannula, continue to wean for oxygen saturation of 90% or greater. CT thorax with small effusion and atelectasis. Personally reviewed. Encourage incentive spirometer. No concern for infection, no need for antibiotics at this time Urinary retention, continue Reilly catheter Hyponatremia, sodium 131 today. BMP in the morning Altered mental status, multifactorial. An element of toxic/metabolic encephalopathy as well as hospital-associated delirium suspected. Will start trazodone 25 mg nightly. If he does become agitated recommend as needed Zyprexa IM. Avoid benzodiazepines. Did have MRI brain and was seen by neurology, MRI was unremarkable. Type 2 diabetes, Continue sliding scale insulin All other chronic conditions stable CODE STATUS: DNR/DNI Discussed with patient and family at bedside, discussed with Dr. Prado Level of Care Indication SD non-mon (6L O2 requirement) DVT Prophylaxis Heparin SQ Maintenance IVF Indication NA / No maintenance IVF Indwelling Urinary Catheter Indication Obstruction Anticipated Timeline of Discharge 24 hours Anticipated DC Disposition SNF Time Spent Total time spent reviewing labs, diagnostics, evaluating the patient, and medical decision makin minutes Digitally Signed by DEIDRA RODRIGUEZ on 10/27/2024 12:03 PM [facility] [id number] Cardiology Progress note Date of Service 10/27/2024 Lenin Dumont was seen this morning with his daughter. He states that he is doing okay today. Still somewhat confused but mentation is better per daughter today. No acute events overnight. Echocardiogram yesterday showed EF was normal at 55 to 60% with moderate mitral stenosis and moderate to severe aortic stenosis. No acute cardiology issues overnight. Currently on 8 L O2 via nasal cannula and was on 12 L yesterday whenever we saw him. CT chest 10/26/2024> IMPRESSION: 1. Moderate bilateral lower lobe airspace disease with small right pleural effusion. 2. Moderate cardiomegaly with atherosclerotic coronary artery calcification. 3. Moderate T3 vertebral body compression fracture is new since 02/20/2024. 4. Mild T2 compression fracture is unchanged since 02/20/2024.5. Multiple bilateral rib fractures are of indeterminate age. Echo 10/26/2024: 1. Left ventricle: The cavity size is normal. Wall thickness is normal. Systolic function is normal. The estimated ejection fraction is 55-60%. Wall motion is normal; there are no regional wall motion abnormalities. Unable to assess diastolic function. 2. Aortic valve: There is moderate to severe stenosis. There is mild regurgitation. 3. Mitral valve: The annulus is moderately calcified. The leaflets are moderately calcified. The findings are consistent with moderate stenosis. There is mild regurgitation. 4. Right ventricle: The RV systolic pressure by Doppler is 38 mm Hg. Objective Vitals and Measurements T: 37.1 C (Oral) TMIN: 36.6 C (Axillary) TMAX: 37.3 C (Oral) HR: 91 (Monitored) RR: 16 BP: 127/81 SpO2: 95% Intake and Output 7AM Yesterday to 7AM Today Intake and Output (Last 24 hours) Intake Oral Intake 710.00 Output Urinary Catheter Output: 1050.00 Stool Count 0.00 Emesis Count 0.00 Total Summary Total Intake 710.00 Total Output 1050.00 Fluid Balance -340.00 Physical Exam General: alert, cooperative, pleasant, lying in bed, no acute distress HEENT: Normocephalic, atraumatic, hearing grossly intact, no scleral icterus, mucosal membranes moist Neck: Supple, trachea midline, no carotid bruit Pulm: Clear to auscultation bilaterally, coarse lung sounds bilaterally, crackles in bilateral bases, no environmental property assessor muscle use, supplemental O2 in place Heart: +S1/S2, regular rate and rhythm, no murmurs, rubs or gallops Abdomen: Soft, nontender, no distention Extremities: Nontender, no edema, clubbing or cyanosis, freely moving all 4 extremities Neurological: Awake, alert and oriented x [address] but unsure of date, able to follow commands, questions are not always answered properly Skin: warm, dry, intact, no signs of ecchymosis, hemorrhage or breakage in skin Weight Dosing Weight: 70.5 kg (10/20/24) Medications Medications (16) Active Scheduled: (11) aspirin 81 mg EC 81 mg 1 tab(s), Oral, qDay atorvastatin 40 mg tablet 40 mg 1 tab(s), Oral, qDay fluticasone nasal 0.05 mg/inh Nebo 50 mcg 1 spray(s), Nasal, qDay heparin 5,000 units/mL (1 mL) vial 5,000 unit(s) 1 mL, Subcutaneous, q8h insulin lispro 100 units/mL Soln (3 mL) Give 0-5 units/dose, Subcutaneous, TIDAC latanoprost ophthalmic 0.005% Solution 1 drop(s), Eyes, both, qHS menthol-zinc oxide topical ointment 4oz 1 darrel, Topical, amhs sertraline 25 mg tablet 25 mg 1 tab(s), Oral, qDay tamsulosin 0.4 mg Capsule 0.4 mg 1 cap(s), Oral, qDay timolol ophthalmic 0.5% Solution 5 mL BTL 1 drop(s), Eyes, both, BID traZODONE 50 mg Tablet 25 mg 0.5 tab(s), Oral, qHS Continuous: (0) PRN: (5) acetaminophen 325 mg Tablet 650 mg 2 tab(s), Oral, q4h albuterol - ipratropium 2.5 mg-0.5 mg/3 mL Inhal Bel UD 3 mL, Inhalation, q4hRT dextrose 50% Solution Disp syringe 50 mL 25 gram(s) 50 mL, IV Push, AsDirected menthol-zinc oxide topical ointment 4oz 1 darrel, Topical, AsDirected trimethobenzamide 200 mg/2 mL Solution 200 mg 2 mL, Intramuscular, q6h Lab Results 10/27 05:53 WBC: 9.8 Hgb: 12.2 L Hct: 35.2 L Platelet: 288 Neutrophil %: 82.7 H Glucose Level: 192 H Sodium Level: 131 L Potassium Level: 3.9 BUN: 25.0 H Creatinine Lvl (s): 0.64 10/26 07:48 WBC: 8.7 Hgb: 12.7 L Hct: 37.1 L Platelet: 258 Neutrophil %: 78.5 H Glucose Level: 154 H Sodium Level: 129 L Potassium Level: 3.9 BUN: 23.0 H Creatinine Lvl (s): 0.58 L EKG No qualifying data available. Assessment/Plan Acute hypoxic respiratory failure Acute urinary retention Altered mental state Anxiety Atherosclerosis of aorta Cardiac arrest Diastolic dysfunction with heart failure Hyperlipidemia Hypertension Hyponatremia Seasonal allergies Toxic metabolic encephalopathy Type 2 diabetes mellitus Acute respiratory failure of mixed etiology Acute mild exacerbation of HFpEF Chronic left bundle branch block Recurrent syncope Moderate aortic stenosis Acute/acute on chronic encephalopathy Concern for dementia Hyponatremia Type 2 diabetes mellitus Hypertension Hyperlipidemia Plan: 1. Volume appears to be euvolemic today. Will continue aspirin and atorvastatin as prescribed. 2. At this point with confirmation that aortic stenosis only moderate to severe within normal LVEF and no acute cardiac abnormalities overnight no further cardiac workup is necessary. 3. CT chest reviewed both with attending and with hospitalist today. Appears to be mainly atelectasis due to patient not taking in deep breaths with recent rib fractures. Encourage incentive spirometer today. 4. Will have him follow-up in our office in 1 to 2 weeks. Patient is stable from a cardiovascular standpoint. Will sign off. Please feel free to reconsult with any questions, concerns or issues. Digitally Signed by KARINA BANDA PA-C on 10/27/2024 01:36 PM Digitally Signed by BELKYS ALCANTAR MD [facility] [id number] Note Date of Service 10/26/2024 Chief Complaint altered mental status Subjective 83-year-old male with history of essential hypertension, iha-pohnbyf-puskztyas type 2 diabetes mellitus, dementia, hyperlipidemia presented to the hospital with altered mental status and recent fall with subsequent rib fracture. In the ER vitals normal. CBC hemoglobin 12.7, glucose 166, sodium 122,chloride 88, creatinine 0.57, BUN 11. High-sensitivity troponin normal. TSH normal. Opiates positive. Chest x-ray cardiomegaly with pulmonary vascular congestion and age and determinate right rib fractures. Patient was admitted to the hospitalist service for further evaluation of hyponatremia and confusion. Started on IV fluid with normal saline and sodium did gradually improve. The day following admission the patient did experience a cardiac arrest. Patient's nurse noted he was suddenly yelling out, tensed up turned blue became pulseless. 1 round of CPR was performed and ROSC achieved no medications needed. Admitted to the ICU. MRI brain performed due to altered mental status unremarkable. Transferred back to the floors with consults placed to urology for patient's acute urinary retention which required placement of Reilly catheter followed by subsequent failed trial of void and replacement of Reilly catheter. Also cardiology was consulted due to patient's cardiac arrest and widened QRS. He was started on IV Lasix, echocardiogram was ordered. Had increasing oxygen requirement wearingBiPAP, was transferred back to the intensive care unit. Respiratory status improved, transferred back to the stepdown unit on 10/25/2024. On exam he is laying in bed, does have some altered mentation. He is alert, oriented to person only. Family at the bedside. No chest pain or shortness of breath, no nausea, vomiting, diarrhea. Objective Vitals and Measurements T: 36.7 C (Oral) TMIN: 36.3 C (Oral) TMAX: 37.4 C (Axillary) HR: 82 (Apical) RR: 18 BP: 117/69 SpO2: 93% Intake and Output 7AM Yesterday to 7AM Today Intake and Output (Last 24 hours) Intake Oral Intake 400.00 Output Urinary Catheter Output: 1000.00 Stool Count 0.00 Emesis Count 0.00 Total Summary Total Intake 400.00 Total Output 1000.00 Fluid Balance -600.00 Physical Exam Physical Exam General: Alert, appropriate and awake, oriented to time, people and place Skin: No rash. Warm, Dry, Intact HEENT: Head is normocephalic and atraumatic. No lesions. Pupils equal in size. Extraocular movements within normal limits. Nose: No septal deviation. Mouth: Oropharynx mucosa is without lesion. Neck: Supple. No lymphadenopathy, thyromegaly noted. Lungs: Bilaterally clear/diminished breath sounds with no crepitation or wheeze. Unlabored Cardiovascular: Heart is regular rhythm, S1S2, No extra-audible heart tones Abdomen: Abdomen is soft, nontender. Bowel sounds positive all four quadrants. Extremities: No clubbing, cyanosis or edema. Peripheral pulses palpable. No calf tenderness. Adequate peripheral circulation. Neurological: Following simple commands, moving all extremities. Weight Dosing Weight: 70.5 kg (10/20/24) Medications Medications (13) Active Scheduled: (9) aspirin 81 mg EC 81 mg 1 tab(s), Oral, qDay atorvastatin 40 mg tablet 40 mg 1 tab(s), Oral, qDay fluticasone nasal 0.05 mg/inh Nebo 50 mcg 1 spray(s), Nasal, qDay heparin 5,000 units/mL (1 mL) vial 5,000 unit(s) 1 mL, Subcutaneous, q8h insulin lispro 100 units/mL Soln (3 mL) Give 0-5 units/dose, Subcutaneous, TIDAC latanoprost ophthalmic 0.005% Solution 1 drop(s), Eyes, both, qHS sertraline 25 mg tablet 25 mg 1 tab(s), Oral, qDay tamsulosin 0.4 mg Capsule 0.4 mg 1 cap(s), Oral, qDay timolol ophthalmic 0.5% Solution 5 mL BTL 1 drop(s), Eyes, both, BID Continuous: (0) PRN: (4) acetaminophen 325 mg Tablet 650 mg 2 tab(s), Oral, q4h albuterol - ipratropium 2.5 mg-0.5 mg/3 mL Inhal Bel UD 3 mL, Inhalation, q4hRT dextrose 50% Solution Disp syringe 50 mL 25 gram(s) 50 mL, IV Push, AsDirected trimethobenzamide 200 mg/2 mL Solution 200 mg 2 mL, Intramuscular, q6h Lab Results 10/26 07:48 WBC: 8.7 Hgb: 12.7 L Hct: 37.1 L Platelet: 258 Neutrophil %: 78.5 H Glucose Level: 154 H Sodium Level: 129 L Potassium Level: 3.9 BUN: 23.0 H Creatinine Lvl (s): 0.58 L 10/25 02:13 WBC: 7.8 Hgb: 13.0 Hct: 38.0 L Platelet: 258 Neutrophil %: 79.5 H Glucose Level: 169 H Sodium Level: 130 L Potassium Level: 3.3 L BUN: 13.0 Creatinine Lvl (s): 0.64 EKG EKG - Completed -- 10/24/24 7:28:00 EDT, follow up ekg from patients cardiac arrest Assessment/Plan 1. Cardiac arrest 2. Diastolic dysfunction with heart failure 3. Acute urinary retention 4. Hyponatremia 5. Altered mental state 6. Type 2 diabetes mellitus 7. Anxiety 8. Hyperlipidemia 9. Hypertension Status post cardiac arrest, cardiology following. Awaiting echocardiogram. Acute HFpEF, Repeat x-ray demonstrating small bilateral pleural effusions. Continues to be hypoxic requiring 10 to 12 L nasal cannula. Wean for oxygen saturation of 90% or greater. Diuresis per cardiology Urinary retention, continue Reilly catheter Hyponatremia, now 129. Has improved from 122 Altered mental status, multifactorial. An element of toxic/metabolic encephalopathy as well as hospital-associated delirium suspected. Will start trazodone 25 mg nightly. If she does become agitated recommend as needed Zyprexa IM Type 2 diabetes, Continue sliding scale insulin All other chronic conditions stable CODE STATUS: DNR/DNI Discussed with patient at bedside, discussed with Dr. Ellison Level of Care Indication SD monitor (CHF exacerbation) DVT Prophylaxis Heparin SQ Maintenance IVF Indication NA / No maintenance IVF Indwelling Urinary Catheter Indication Obstruction Anticipated Timeline of Discharge 48 hours Anticipated DC Disposition SNF Digitally Signed by DEIDRA RODRIGUEZ on 10/26/2024 12:55 PM [id number] Note* Exam Date Time Procedure Performing Provider Status 10/26/24 9:[address] Thorax w/ Contrast GIOVANI WARREN MD; Auth (Verified) [id number] ORIGINAL EXAMINATION: CT OF THE CHEST WITH CONTRAST 10/26/2024 10:05 pm TECHNIQUE: CT of the chest was performed with the administration of intravenous contrast. Multiplanar reformatted images are provided for review. Automated exposure control, iterative reconstruction, and/or weight based adjustment of the mA/kV was utilized to reduce the radiation dose to as low as reasonably achievable. COMPARISON: Chest x-ray on 10/26/2024 HISTORY: ORDERING SYSTEM PROVIDED HISTORY: Reason for Exam: Dyspnea, chronic, unclear etiology FINDINGS: Mediastinum: There is no mediastinal mass or lymph node enlargement. Moderate cardiomegaly is present with atherosclerotic coronary artery calcification and mitral annulus calcification. No pericardial fluid is present. The thoracic aorta is nonaneurysmal. There is no aortic dissection. Lungs/pleura: There is moderate airspace disease in both lower lobes posteriorly. A small right pleural effusion is present. There is no significant left pleural fluid. There is no pneumothorax. Upper lobes are well aerated. Upper Abdomen: No acute findings. Soft Tissues/Bones: There are nondisplaced fractures of the right 3rd through 9th ribs that are of indeterminate age. Nondisplaced fractures of the left 3rd, 4th, and 5th ribs are also present. The thoracic spine alignment is normal. Mild anterior compression of T2 vertebral body is unchanged compared with CT of the cervical spine on 02/20/2024. There is moderate compression of the T3 vertebral body that is a new finding since 02/20/2024. Other thoracic vertebral bodies are normal in height. IMPRESSION: 1. Moderate bilateral lower lobe airspace disease with small right pleural effusion. 2. Moderate cardiomegaly with atherosclerotic coronary artery calcification. 3. Moderate T3 vertebral body compression fracture is new since 02/20/2024. 4. Mild T2 compression fracture is unchanged since 02/20/2024. 5. Multiple bilateral rib fractures are of indeterminate age. Interpreted by: Giovani Warren MD Preliminary Report By: Giovani Warren MD Electronically signed By Giovani Warren MD Dictated Date: 10/27/2024 3:47:10 AM Prelim Date: 10/27/2024 3:57:32 AM Sign Date: 10/27/2024 3:57:32 AM Ordering Provider: BELKYS [facility]06-23-2025 Note Reason for Consultation Admission From: Home Consult Skin Team re: Pressure Staging - Ordered -- 10/26/24 5:53:57 EDT Skin Team Findings Vitals and Measurements T: 36.7 C (Oral) TMIN: 36.3 C (Oral) TMAX: 37.2 C (Oral) HR: 82 (Apical) RR: 18 BP: 117/69 SpO2: 93% Pressure Area Details ------Pressure Area------ Buttock Left - Pressure Area Description: Red, Edges Buttock Left - Pressure Area Drainage: Scant, Serous Buttock Left - Pressure Area Dressing Description: Open to Air Buttock Left - Pressure Area Surrounding Tissue: Erythema Buttock Left - Pressure Area Topical Agent: Protective Barrier Ointment Buttock Left - Pressure Area Wound Edges: Unattached Buttock Left - Pressure Ulcer Stage: Stage 2 Buttock Right - Pressure Area Description: Red, Edges Buttock Right - Pressure Area Drainage: Scant, Serous Buttock Right - Pressure Area Dressing Description: Open to Air Buttock Right - Pressure Area Surrounding Tissue: Erythema Buttock Right - Pressure Area Topical Agent: Protective Barrier Ointment Buttock Right - Pressure Area Wound Edges: Unattached Buttock Right - Pressure Ulcer Stage: Stage 2 ------Pressure Area Measurements------ Buttock Left - Pressure Area Depth: 0.1 cm Buttock Left - Pressure Area Length: 0.5 cm Buttock Left - Pressure Area Width: 0.5 cm Buttock Right - Pressure Area Depth: 0.1 cm Buttock Right - Pressure Area Length: 0.5 cm Buttock Right - Pressure Area Width: 0.5 cm Assessments and Recommendations ------Assessments------ Current Skin/Wound Interventions: Hospital bed, Low air loss mattress, Turn and reposition every 2 hours ------Recommendations------ Recommended Skin/Wound Interventions: Low air loss mattress, Seat cushion, Turn and position system, Turn and reposition every 2 hours, Proposed orders sent to physician, Other: Calmoseptine to bilateral buttock Education Individuals Taught: Patient Learning Readiness: Willing to learn Barriers to Learning: Acuity of illness, Cognitive deficits Teaching Method: Explanation Problem List/Past Medical History Ongoing Anxiety Aortic stenosis, moderate Atherosclerosis of aorta Benign non-nodular prostatic hyperplasia BMI 24.0-24.9, adult De Quervain's disease (tenosynovitis) Diastolic dysfunction with heart failure Glaucoma Hypercholesteremia Hypertension Hypertension associated with type 2 diabetes mellitus Iron deficiency anemia Medicare annual wellness visit, subsequent Microalbuminuria Mitral valve regurgitation Opacification of intraocular lens Pseudophakia Type 2 diabetes mellitus Type 2 diabetes mellitus with hyperlipidemia Type 2 diabetes with complication Historical DM (diabetes mellitus), type 2 Digitally Signed by Addis Puente RN on 10/26/2024 04:36 PM [facility] [id number] Note* Exam Date Time Procedure Performing Provider Status 10/26/24 4:05 PM Echocardiogram, Adult - CV ALDO ALCANTAR MD; Auth (Verified) [facility] [id number] Cardiology Consult note Date of Service 10/25/2024 Reason for Consultation recurrent syncope, wide-complex tachycardia Referring Physician MICU team History of Present Illness Patient is an 83-year-old male with past medical and cardiac history as in the assessment. The patient presented to the hospital for acute confusion and admitted for acute encephalopathy. Found to have hyponatremia and currently being treated for it. During the hospital stay, patient had recurrent episode of syncope and hypoxia. Transferred to ICU for hypoxia last night. Cardiology was consulted for wide- complex rhythm and recurrent syncope. Patient denies chest pain or discomfort before coming to the hospital. Functional status is good atbaseline. Denied lower extremity swelling, orthopnea and PND. Also denied episode of lightheadedness, dizziness, presyncope syncope. He denies smoking, drinking or drug use. Follow regularly with PCP. Review of Systems Constitutional: denies Fevers and chills , no loss of appetite, denies fatigue or weight change Eyes: Denies double vision/blurring of vision/flashes or floaters Ears, Nose, Mouth & Throat: Denies any tinnitus/hearing loss/sinus congestion/nasal discharge/sore throat Gastrointestinal: Denies any abdominal pain/nausea/vomiting/diarrhea/hematochezia/hematemesis/melena Genitourinary: Denies any dysuria/hematuria Musculoskeletal: denies joint pain or joint swelling or deformities Skin: No ulcers or rash Neurological: denies Weakness or numbness of extremities/facial droop/loss of balance Endocrine: Denies any heat or cold intolerance/polyuria/polydipsia/polyphagia Hematologic/Lymphatic: denies lymphadenopathy Allergic/Immunologic: Denies any seasonal allergy/sneezing/tearing from the eyes Physical Exam Vitals and Measurements T: 36.8 C (Axillary) TMIN: 36.5 C (Oral) TMAX: 37.2 C (Axillary) HR: 92 (Monitored) RR: 19 BP: 129/86 SpO2: 94% Weight Dosing Weight: 70.5 kg (10/20/24) General Appearance: Patient comfortably lying on bed, not in acute distress Head: Normocephalic, atraumatic EENT: PERRLA, Neck: Supple, no JVD, no mass Cardiac: Crescendo-decrescendo murmur at aortic area, second heart sound is soft but intact Lungs: Mild bilateral crackles Abdomen: Soft , Nontender, no organomegaly, bowel sounds heard Musculoskeletal: Full ROM , no gross deformities Extremities: No rash or ulcers or pedal edema Neurological: Alert, oriented x 3, grossly no focal neurological deficits Skin: No rash or ulcers Lab Results 10/25 02:13 WBC: 7.8 Hgb: 13.0 Hct: 38.0 L Platelet: 258 Neutrophil %: 79.5 H Glucose Level: 169 H Sodium Level: 130 L Potassium Level: 3.3 L BUN: 13.0 Creatinine Lvl (s): 0.64 10/24 13:25 WBC: 7.4 Hgb: 12.3 L Hct: 36.1 L Platelet: 234 Neutrophil %: 80.7 H Glucose Level: 185 H Sodium Level: 129 L Potassium Level: 3.5 BUN: 15.0 Creatinine Lvl (s): 0.51 L Assessment/Plan Acute respiratory failure of mixed etiology Acute mild exacerbation of HFpEF Chronic left bundle branch block Recurrent syncope Moderate aortic stenosis Acute/acute on chronic encephalopathy Concern for dementia Hyponatremia Type 2 diabetes mellitus Hypertension Hyperlipidemia Review of EKG showed wide-complex tachycardia consistent with chronic left bundle branch block. No chest pain since admission. Troponin was normal. Patient will need ischemic evaluation if he is agreeable to it at some point. Discussed with the family today. Has history of moderate aortic stenosis by TTE in May 2024. Will repeat the TTE to reassess the severity of aortic stenosis. Mild pulmonary congestion on chest x-ray. Patient has bilateral crackles on examination. Recommend to give another dose of Lasix today. Will reassess volume status tomorrow. Recommend CardioNet at discharge for recurrent syncope. Thank you for letting us participate in patient care. Cardiology will continue to follow. Problem List/Past Medical History Ongoing Anxiety Aortic stenosis, moderate Atherosclerosis of aorta Benign non-nodular prostatic hyperplasia BMI 24.0-24.9, adult De Quervain's disease (tenosynovitis) Diastolic dysfunction with heart failure Glaucoma Hypercholesteremia Hypertension Hypertension associated with type 2 diabetes mellitus Iron deficiency anemia Medicare annual wellness visit, subsequent Microalbuminuria Mitral valve regurgitation Opacification of intraocular lens Pseudophakia Type 2 diabetes mellitus Type 2 diabetes mellitus with hyperlipidemia Type 2 diabetes with complication Historical DM (diabetes mellitus), type 2 Procedure/Surgical History No retinopathy of left eye due to diabetes mellitus: 07/04/20 No retinopathy of right eye due to diabetes mellitus: 07/04/20 Eye examination, DM: 03/07/20 Cholecystectomy Rotator cuff repair, L Medications Inpatient aspirin 81 mg oral delayed release tablet, 81 mg= 1 tab(s), Oral, qDay atorvastatin, 40 mg= 1 tab(s), Oral, qDay cefTRIAXone, 2 gram(s)= 20 mL, IV Push (INT), qDay Dextrose 50% IV Push, 25 gram(s)= 50 mL, IV Push, AsDirected, PRN Dextrose 50% IV Push, 25 gram(s)= 50 mL, IV Push, AsDirected, PRN doxycycline DuoNeb, 3 mL, Inhalation, q4hRT, PRN Flomax, 0.4 mg= 1 cap(s), Oral, qDay fluticasone 50 mcg/inh NASAL spray, 50 mcg= 1 spray(s), Nasal, qDay heparin 5000 units/mL injection, 5000 unit(s)= 1 mL, Subcutaneous, q8h HumaLOG 100 units/mL subcutaneous solution, Give 0-5 units/dose, Subcutaneous, TIDAC latanoprost 0.005% ophthalmic solution, 1 drop(s), Eyes, both, qHS potassium chloride, 20 mEq= 100 mL, IV Piggyback, q2hrs sertraline, 25 mg= 1 tab(s), Oral, qDay Tigan, 200 mg= 2 mL, Intramuscular, q6h, PRN Timoptic 0.5% ophthalmic solution, 1 drop(s), Eyes, both, BID Tylenol, 650 mg= 2 tab(s), Oral, q4h, PRN Home amLODIPine 5 mg oral tablet, 5 mg= 1 tab(s), Oral, BID, 3 refills aspirin 81 mg oral delayed release tablet, 81 mg= 1 tab(s), Oral, qDay, 3 refills atorvastatin 40 mg oral tablet, 40 mg= 1 tab(s), Oral, qDay, 3 refills Blood Glucose Test Strips, See Instructions, 3 refills fluticasone 50 mcg/inh NASAL spray, 50 mcg, Nasal, qDay, 2 refills Lancets, See Instructions, 5 refills latanoprost 0.005% ophthalmic solution, 1 drop(s), Eyes, both, qHS lisinopril 40 mg oral tablet, 40 mg= 1 tab(s), Oral, qDay, 3 refills MetFORMIN (Eqv-Glucophage XR) 500 mg oral tablet, EXTENDED RELEASE, 2000 mg= 4 tab(s), Oral, qDay, 3 refills Multivitamin, 1 tab(s), Oral, Daily pioglitazone 30 mg oral tablet, 30 mg= 1 tab(s), Oral, Daily, 3 refills sertraline 25 mg oral tablet, 25 mg= 1 tab(s), Oral, qDay Timolol Maleate (Eqv-Timoptic) 0.5% ophthalmic solution, 1 gtt(s), Eyes, both, BID Vitamin D3, 2000 unit(s)= 1 tab(s), Oral, Daily Allergies NKA Social History Smoking Status - 03/21/2015 Never smoker Alcohol Use: Current. Frequency: 1-2 times per year., 07/08/2024 Employment/School Status: Retired. 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 Appetite Good. Eating Difficulties None. Caffeine intake amount: 2 coffee daily., 10/08/2024 Substance Abuse Use: Never., 12/09/2018 Tobacco Nicotine Use: Never (less than 100 in lifetime)., 10/20/2024 Family History Diabetes: Daughter. Hyperlipidemia: Mother, Father and Brother. Hypertension: Mother. Malignant tumor of lung: Mother. Health Status Family Member(s) Immunizations pneumococcal 13-valent conjugate vaccine: 0 unknown unit (09/16/14) pneumococcal 23-valent vaccine(Pneumovax: 0 unknown unit (02/13/06) SARS-CoV-2 (COVID-19) mRNA-1273 vaccine: 0.25 unknown unit (08/03/21) SARS-CoV-2 (COVID-19) mRNA-1273 vaccine: 0.5 unknown unit (02/24/21) SARS-CoV-2 (COVID-19) mRNA-1273 vaccine: 100 mcg (06/22/20) SARS-CoV-2 (COVID-19) mRNA-1273 vaccine: 0 unknown unit (05/25/20) tetanus/diphtheria/pertussMUL.ORD![id number]: 0.5 unknown unit (08/03/21) tetanus/diphtheria/pertussMUL.ORD![id number]: 0 unknown unit (08/25/12) zoster vaccine, inactivated: 1 unknown unit (05/16/19) zoster vaccine, inactivated: 1 unknown unit (02/04/19) Digitally Signed by JOE CABRERA MD on 10/25/2024 10:46 AM [facility] [id number] Cardiology Progress note Date of Service 10/26/2024 Subjective Tim is pleasantly confused today. Denies any cardiovascular complaints. States that he still short of breath but slightly better. Denies any lower extremity edema. Also denies any chest pain. Objective Vitals and Measurements T: 36.7 C (Oral) TMIN: 36.3 C (Oral) TMAX: 37.4 C (Axillary) HR: 82 (Apical) RR: 18 BP: 117/69 SpO2: 93% Intake and Output 7AM Yesterday to 7AM Today Intake and Output (Last 24 hours) Intake Oral Intake 400.00 Output Urinary Catheter Output: 1000.00 Stool Count 0.00 Emesis Count 0.00 Total Summary Total Intake 400.00 Total Output 1000.00 Fluid Balance -600.00 Physical Exam General: alert, cooperative, pleasant, lying in bed, no acute distress HEENT: Normocephalic, atraumatic, hearing grossly intact, no scleral icterus, mucosal membranes moist Neck: Supple, trachea midline, no carotid bruit Pulm: Clear to auscultation bilaterally, coarse lung sounds bilaterally, crackles in bilateral bases, no environmental property assessor muscle use, supplemental O2 in place Heart: +S1/S2, regular rate and rhythm, no murmurs, rubs or gallops Abdomen: Soft, nontender, no distention Extremities: Nontender, no edema, clubbing or cyanosis, freely moving all 4 extremities Neurological: Awake, alert and oriented x [address] but unsure of date, able to follow commands, questions are not always answered properly Skin: warm, dry, intact, no signs of ecchymosis, hemorrhage or breakage in skin Weight Dosing Weight: 70.5 kg (10/20/24) Medications Medications (14) Active Scheduled: (10) aspirin 81 mg EC 81 mg 1 tab(s), Oral, qDay atorvastatin 40 mg tablet 40 mg 1 tab(s), Oral, qDay fluticasone nasal 0.05 mg/inh Nebo 50 mcg 1 spray(s), Nasal, qDay heparin 5,000 units/mL (1 mL) vial 5,000 unit(s) 1 mL, Subcutaneous, q8h insulin lispro 100 units/mL Soln (3 mL) Give 0-5 units/dose, Subcutaneous, TIDAC latanoprost ophthalmic 0.005% Solution 1 drop(s), Eyes, both, qHS sertraline 25 mg tablet 25 mg 1 tab(s), Oral, qDay tamsulosin 0.4 mg Capsule 0.4 mg 1 cap(s), Oral, qDay timolol ophthalmic 0.5% Solution 5 mL BTL 1 drop(s), Eyes, both, BID traZODONE 50 mg Tablet 25 mg 0.5 tab(s), Oral, qHS Continuous: (0) PRN: (4) acetaminophen 325 mg Tablet 650 mg 2 tab(s), Oral, q4h albuterol - ipratropium 2.5 mg-0.5 mg/3 mL Inhal Bel UD 3 mL, Inhalation, q4hRT dextrose 50% Solution Disp syringe 50 mL 25 gram(s) 50 mL, IV Push, AsDirected trimethobenzamide 200 mg/2 mL Solution 200 mg 2 mL, Intramuscular, q6h Lab Results 10/26 07:48 WBC: 8.7 Hgb: 12.7 L Hct: 37.1 L Platelet: 258 Neutrophil %: 78.5 H Glucose Level: 154 H Sodium Level: 129 L Potassium Level: 3.9 BUN: 23.0 H Creatinine Lvl (s): 0.58 L 10/25 02:13 WBC: 7.8 Hgb: 13.0 Hct: 38.0 L Platelet: 258 Neutrophil %: 79.5 H Glucose Level: 169 H Sodium Level: 130 L Potassium Level: 3.3 L BUN: 13.0 Creatinine Lvl (s): 0.64 EKG EKG - Completed -- 10/24/24 7:28:00 EDT, follow up ekg from patients cardiac arrest Assessment/Plan Acute respiratory failure of mixed etiology Acute mild exacerbation of HFpEF Chronic left bundle branch block Recurrent syncope Moderate aortic stenosis Acute/acute on chronic encephalopathy Concern for dementia Hyponatremia Type 2 diabetes mellitus Hypertension Hyperlipidemia Plan: 1. Bedside echocardiogram by Dr. Alcantar showed IVC was normal size without dilation and collapsible, LVEF appeared to be within normal limits and there was no acute valvular abnormalities that couldbe contributing to his shortness of breath. It appears that patient's heart failure has resolved. No further IV diuretics recommended. 2. Will get a CT scan of his lungs in order to determine if any infectious cause or PE present causing his extreme shortness of breath. 3. Would get 30-day event monitor on discharge. 4. Getting echocardiogram today with a full report. Will review this and compare to bedside echo. 5. Continue aspirin and atorvastatin as prescribed. Digitally Signed by KARINA BANDA PA-C on 10/26/2024 01:22 PM Digitally Signed by BELKYS ALCANTAR MD [facility] [id number] Note Date of Service 10/26/2024 Chief Complaint altered mental status Subjective 83-year-old male with history of essential hypertension, [id number] type 2 diabetes mellitus, dementia, hyperlipidemia presented to the hospital with altered mental status and recent fall with subsequent rib fracture. In the ER vitals normal. CBC hemoglobin 12.7, glucose 166, sodium 122,chloride 88, creatinine 0.57, BUN 11. High-sensitivity troponin normal. TSH normal. Opiates positive. Chest x-ray cardiomegaly with pulmonary vascular congestion and age and determinate right rib fractures. Patient was admitted to the hospitalist service for further evaluation of hyponatremia and confusion. Started on IV fluid with normal saline and sodium did gradually improve. The day following admission the patient did experience a cardiac arrest. Patient's nurse noted he was suddenly yelling out, tensed up turned blue became pulseless. 1 round of CPR was performed and ROSC achieved no medications needed. Admitted to the ICU. MRI brain performed due to altered mental status unremarkable. Transferred back to the floors with consults placed to urology for patient's acute urinary retention which required placement of Reilly catheter followed by subsequent failed trial of void and replacement of Reilly catheter. Also cardiology was consulted due to patient's cardiac arrest and widened QRS. He was started on IV Lasix, echocardiogram was ordered. Had increasing oxygen requirement wearingBiPAP, was transferred back to the intensive care unit. Respiratory status improved, transferred back to the stepdown unit on 10/25/2024. On exam he is laying in bed, does have some altered mentation. He is alert, oriented to person only. Family at the bedside. No chest pain or shortness of breath, no nausea, vomiting, diarrhea. Objective Vitals and Measurements T: 36.7 C (Oral) TMIN: 36.3 C (Oral) TMAX: 37.4 C (Axillary) HR: 82 (Apical) RR: 18 BP: 117/69 SpO2: 93% Intake and Output 7AM Yesterday to 7AM Today Intake and Output (Last 24 hours) Intake Oral Intake 400.00 Output Urinary Catheter Output: 1000.00 Stool Count 0.00 Emesis Count 0.00 Total Summary Total Intake 400.00 Total Output 1000.00 Fluid Balance -600.00 Physical Exam Physical Exam General: Alert, appropriate and awake, oriented to time, people and place Skin: No rash. Warm, Dry, Intact HEENT: Head is normocephalic and atraumatic. No lesions. Pupils equal in size. Extraocular movements within normal limits. Nose: No septal deviation. Mouth: Oropharynx mucosa is without lesion. Neck: Supple. No lymphadenopathy, thyromegaly noted. Lungs: Bilaterally clear/diminished breath sounds with no crepitation or wheeze. Unlabored Cardiovascular: Heart is regular rhythm, S1S2, No extra-audible heart tones Abdomen: Abdomen is soft, nontender. Bowel sounds positive all four quadrants. Extremities: No clubbing, cyanosis or edema. Peripheral pulses palpable. No calf tenderness. Adequate peripheral circulation. Neurological: Following simple commands, moving all extremities. Weight Dosing Weight: 70.5 kg (10/20/24) Medications Medications (13) Active Scheduled: (9) aspirin 81 mg EC 81 mg 1 tab(s), Oral, qDay atorvastatin 40 mg tablet 40 mg 1 tab(s), Oral, qDay fluticasone nasal 0.05 mg/inh Nebo 50 mcg 1 spray(s), Nasal, qDay heparin 5,000 units/mL (1 mL) vial 5,000 unit(s) 1 mL, Subcutaneous, q8h insulin lispro 100 units/mL Soln (3 mL) Give 0-5 units/dose, Subcutaneous, TIDAC latanoprost ophthalmic 0.005% Solution 1 drop(s), Eyes, both, qHS sertraline 25 mg tablet 25 mg 1 tab(s), Oral, qDay tamsulosin 0.4 mg Capsule 0.4 mg 1 cap(s), Oral, qDay timolol ophthalmic 0.5% Solution 5 mL BTL 1 drop(s), Eyes, both, BID Continuous: (0) PRN: (4) acetaminophen 325 mg Tablet 650 mg 2 tab(s), Oral, q4h albuterol - ipratropium 2.5 mg-0.5 mg/3 mL Inhal Bel UD 3 mL, Inhalation, q4hRT dextrose 50% Solution Disp syringe 50 mL 25 gram(s) 50 mL, IV Push, AsDirected trimethobenzamide 200 mg/2 mL Solution 200 mg 2 mL, Intramuscular, q6h Lab Results 10/26 07:48 WBC: 8.7 Hgb: 12.7 L Hct: 37.1 L Platelet: 258 Neutrophil %: 78.5 H Glucose Level: 154 H Sodium Level: 129 L Potassium Level: 3.9 BUN: 23.0 H Creatinine Lvl (s): 0.58 L 10/25 02:13 WBC: 7.8 Hgb: 13.0 Hct: 38.0 L Platelet: 258 Neutrophil %: 79.5 H Glucose Level: 169 H Sodium Level: 130 L Potassium Level: 3.3 L BUN: 13.0 Creatinine Lvl (s): 0.64 EKG EKG - Completed -- 10/24/24 7:28:00 EDT, follow up ekg from patients cardiac arrest Assessment/Plan 1. Cardiac arrest 2. Diastolic dysfunction with heart failure 3. Acute urinary retention 4. Hyponatremia 5. Altered mental state 6. Type 2 diabetes mellitus 7. Anxiety 8. Hyperlipidemia 9. Hypertension Status post cardiac arrest, cardiology following. Awaiting echocardiogram. Acute HFpEF, Repeat x-ray demonstrating small bilateral pleural effusions. Continues to be hypoxic requiring 10 to 12 L nasal cannula. Wean for oxygen saturation of 90% or greater. Diuresis per cardiology Urinary retention, continue Reilly catheter Hyponatremia, now 129. Has improved from 122 Altered mental status, multifactorial. An element of toxic/metabolic encephalopathy as well as hospital-associated delirium suspected. Will start trazodone 25 mg nightly. If she does become agitated recommend as needed Zyprexa IM Type 2 diabetes, Continue sliding scale insulin All other chronic conditions stable CODE STATUS: DNR/DNI Discussed with patient at bedside, discussed with Dr. Ellison Level of Care Indication SD monitor (CHF exacerbation) DVT Prophylaxis Heparin SQ Maintenance IVF Indication NA / No maintenance IVF Indwelling Urinary Catheter Indication Obstruction Anticipated Timeline of Discharge 48 hours Anticipated DC Disposition SNF Digitally Signed by DEIDRA RODRIGUEZ on 10/26/2024 12:55 PM [id number] Note* Exam Date Time Procedure Performing Provider Status 10/26/24 10:17 AM XR Chest 1 View MIRIAN DENNY MD; [facility] (Verified) [id number] ORIGINAL EXAMINATION: ONE XRAY VIEW OF THE CHEST 10/26/2024 10:17 am COMPARISON: 10/25/2024 HISTORY: ORDERING SYSTEM PROVIDED HISTORY: Reason for Exam: hypoxia FINDINGS: Cardiomegaly. Aortic arch calcifications. No overt edema. Left retrocardiac opacity with mild blunting of the left costophrenic angle. Right basilar opacity blunting the right costophrenic angle. No pneumothorax. Left humeral head suture anchor. Osteopenia. Mitral valve calcifications. IMPRESSION: Bilateral pleural effusions of small volume. Associated bibasilar atelectasis and or consolidation. Interpreted by: Mirian Denny Preliminary Report By: Mirian Denny Electronically signed By Mirian Denny Dictated Date: 10/26/2024 10:30:35 AM Prelim Date: 10/26/2024 10:31:55 AM Sign Date: 10/26/2024 10:31:55 AM [id number] Progress note Date of Service 10/25/2024 Subjective Transferred back to MICU overnight due to increased O2 requirement. Family present today and report that pt was drinking some EtOH socially as well. No other new meds in addition to the sertraline and oxycodone that they know of. Pt denies abd pain. Objective Vitals and Measurements T: 36.7 C (Axillary) TMIN: 36.5 C (Oral) TMAX: 37.2 C (Axillary) HR: 87 (Monitored) RR: 20 BP: 130/78 SpO2: 96% Intake and Output 7AM Yesterday to 7AM Today Intake and Output (Last 24 hours) Intake Oral Intake 0.00 Output Urine Voided 2000.00 Urinary Catheter Output: 3000.00 Stool Count 0.00 Total Summary Total Intake 0.00 Total Output 5000.00 Fluid Balance -5000.00 Physical Exam Being taken off BiPAP currently Pleasant and cooperative Appears comfortable Abd soft NT ND Reilly w/ CYU Weight Dosing Weight: 70.5 kg (10/20/24) Medications Medications (14) Active Scheduled: (10) aspirin 81 mg EC 81 mg 1 tab(s), Oral, qDay atorvastatin 40 mg tablet 40 mg 1 tab(s), Oral, qDay fluticasone nasal 0.05 mg/inh Nebo 50 mcg 1 spray(s), Nasal, qDay heparin 5,000 units/mL (1 mL) vial 5,000 unit(s) 1 mL, Subcutaneous, q8h insulin lispro 100 units/mL Soln (3 mL) Give 0-5 units/dose, Subcutaneous, TIDAC latanoprost ophthalmic 0.005% Solution 1 drop(s), Eyes, both, qHS Pharmacy To Dose 1 EA, Miscellaneous, Daily sertraline 25 mg tablet 25 mg 1 tab(s), Oral, qDay tamsulosin 0.4 mg Capsule 0.4 mg 1 cap(s), Oral, qDay timolol ophthalmic 0.5% Solution 5 mL BTL 1 drop(s), Eyes, both, BID Continuous: (0) PRN: (4) acetaminophen 325 mg Tablet 650 mg 2 tab(s), Oral, q4h albuterol - ipratropium 2.5 mg-0.5 mg/3 mL Inhal Bel UD 3 mL, Inhalation, q4hRT dextrose 50% Solution Disp syringe 50 mL 25 gram(s) 50 mL, IV Push, AsDirected trimethobenzamide 200 mg/2 mL Solution 200 mg 2 mL, Intramuscular, q6h Lab Results 10/25 02:13 WBC: 7.8 Hgb: 13.0 Hct: 38.0 L Platelet: 258 Neutrophil %: 79.5 H Glucose Level: 169 H Sodium Level: 130 L Potassium Level: 3.3 L BUN: 13.0 Creatinine Lvl (s): 0.64 10/24 13:25 WBC: 7.4 Hgb: 12.3 L Hct: 36.1 L Platelet: 234 Neutrophil %: 80.7 H Glucose Level: 185 H Sodium Level: 129 L Potassium Level: 3.5 BUN: 15.0 Creatinine Lvl (s): 0.51 L Imaging Results and Diagnostics No imaging Assessment/Plan Urinary retention: I had a lengthy discussion w/ the pt's family about his urinary retention and the fact that it was most likely multifactorial. I also explained that I would have expected him to fail a void trial 2 days after having a reilly placed for 1.5L retention so not to be discouraged by that. We will plan a void trial in 1- 2 weeks after bladder rest. If pt still inpatient at that time, can be done here. Ifbeing discharged, please notify us so we can coordinate this at the urology office. Will chart check / follow peripherally, but please do not hesitate to contact me with any questionsor concerns. Digitally Signed by LILLY MCINTOSH MD on 10/25/2024 03:54 PM [facility] [id number] History and physical note Date of Service 10/25/2024 History of Present Illness Patient is an 83-year-old initially admitted to the floor on 10/20/2024 for hyponatremia and alteredmentation. On 10/21, patient was transferred to MICU after ROSC was achieved after 1 round of CPR. Etiology of the CODE BLUE was likely vasovagal in the setting of urinary retention. Neurology was consulted for altered mental status. On 10/21/2024, MRI brain was done showing no acute stroke, chronic vascular changes. Possible vascular dementia leading to presentation. Patient was deemed stable to be transferred out of the MICU. Per chart review, after patient was transferred to the floor, he was evaluated for a mild to moderate HFpEF likely 2/2 cardiac arrest and IV fluid use to improve his hyponatremia. Patient was startedon diuresis with IV Lasix 20 mg every 6 hours. Echocardiogram was ordered. Cardiology was consulted. Urology was subsequently consulted per family's request for urinary retention. Rapid response was called today for increasing oxygen requirement. Extra dose of IV Lasix 40 mg x 1, ceftriaxone and doxycycline were added by the the hospitalist. ABG showed pH 7.508, [id number], PO2 37.5, O2 sat 74.9 on 15 L nasal cannula. Patient was subsequently put on BiPAP without improvement in his oxygenation. Therefore, he was subsequently transferred to MICU for further evaluation management. When the patient was here in the MICU, his oxygenation improved to the mid 90s on BiPAP (17/12) withFiO2 85%; therefore, intubation was hold off. Patient denied having difficulty breathing on the BiPAP or having any fevers or chills. Physical Exam Vitals and Measurements T: 37.2 C (Axillary) TMIN: 36.5 C (Oral) TMAX: 37.2 C (Axillary) HR: 97 (Monitored) RR: 18 BP: 131/94 SpO2: 97% Weight Dosing Weight: 70.5 kg (10/20/24) General: In no acute distress Oral cavity: Moist Oral Mucosa CVS: RRR, No murmur, Normal S1S2, mild pedal edema in bilateral lower extremities Respiratory: Equal bilateral breath sounds, no wheezing, no crackles, no accessory muscle use Abdomen: Non-tender, soft, not distended Ext: Warm to touch Neuro: No neurological deficits noted. Lab Results 10/24 13:25 WBC: 7.4 Hgb: 12.3 L Hct: 36.1 L Platelet: 234 Neutrophil %: 80.7 H Glucose Level: 185 H Sodium Level: 129 L Potassium Level: 3.5 BUN: 15.0 Creatinine Lvl (s): 0.51 L Imaging Results and Diagnostics XR Chest 1 View Result Date: October 25, 2024 Verified By: TIEN CAN MD CLINICAL STATEMENT: IMPRESSION: Small bilateral effusions with hazy airspace disease at the lung bases. XR Chest 1 View Result Date: October 24, 2024 Verified By: HUBER CORRAL DO CLINICAL STATEMENT: IMPRESSION: []Image findings compatible with congestive failure. Superimposing airspaceprocess considered. Correlate with clinical findings. CT Head or Brain w/o Contrast Result Date: October 23, 2024 Verified By: NÉSTOR SNYDER MD CLINICAL STATEMENT: IMPRESSION: No acute intracranial hemorrhage, mass effect or midline shift. I have personally reviewed the images of this examination and agree with theresident's findings and interpretation. MRI Brain w/o Contrast Result Date: October 22, 2024 Verified By: RASHMI AGUIRRE DO CLINICAL STATEMENT: IMPRESSION: 1. No acute intracranial abnormality.2. Primarily confluent periventricular white matter FLAIR hyperintensities,right greater than left. This is nonspecific and may represent chronicmicrovascular ischemic changes. XR Enteric Tube Placement Result Date: October 21, 2024 Verified By: SANG KNUTSON DO CLINICAL STATEMENT: IMPRESSION: 1. Orogastric tube in functional position.2. No acute pulmonary disease. Assessment/Plan Acute hypoxic respiratory failure HFpEF (last EF 50 to 55% in 05/2024) Toxic metabolic encephalopathy Hyponatremia Cardiac arrest likely vasovagal in setting of urinary retention Past medical history: diabetes type 2, dementia, hypertension, intentional use of spouse medicationespecially oxycodone, rib fractures Patient is an 83-year-old initially admitted to the floor on 10/20/2024 for hyponatremia and alteredmentation. On 10/21, patient was transferred to MICU after ROSC was achieved after 1 round of CPR. Etiology of the CODE BLUE was likely vasovagal in the setting of urinary retention. Patient was deemed stable to be transferred out of the MICU on 10/21/2024. Rapid response was called today for increasing oxygen requirement. Extra dose of IV Lasix 40 mg x 1, ceftriaxone and doxycycline were added by the the hospitalist. ABG showed pH 7.508, [id number], PO2 37.5, O2 sat 74.9 on 15 L nasal cannula. Patient was subsequently put on BiPAP without improvement in his oxygenation. Therefore, he was subsequently transferred to MICU for further evaluation management. When the patient was here in the MICU, his oxygenation improved to the mid 90s on BiPAP (14/8) withFiO2 85%; therefore, intubation was hold off. Patient denied having difficulty breathing on the BiPAP or having any fevers or chills. Plan Will continue BiPAP and recheck an ABG in a few hours. Wean oxygen as tolerated. Will continue with IV Lasix 20 mg every 6 hours for diastolic heart failure. Echocardiogram ordered and pending at the time of this dictation. Cardiology has been consulted. Will replete electrolytes as needed to maintain K > 4 and Mg > 2 Patient was started on ceftriaxone doxycycline on the floor due to concern for increasing oxygen requirement. Will check a respiratory culture, atypicals. Urology consulted per family's request for urinary retention. Case discussed with attending Dr. Guthrie, please see addendum for any changes. Problem List/Past Medical History Ongoing Anxiety Aortic stenosis, moderate Atherosclerosis of aorta Benign non-nodular prostatic hyperplasia BMI 24.0-24.9, adult De Quervain's disease (tenosynovitis) Diastolic dysfunction with heart failure Glaucoma Hypercholesteremia Hypertension Hypertension associated with type 2 diabetes mellitus Iron deficiency anemia Medicare annual wellness visit, subsequent Microalbuminuria Mitral valve regurgitation Opacification of intraocular lens Pseudophakia Type 2 diabetes mellitus Type 2 diabetes mellitus with hyperlipidemia Type 2 diabetes with complication Historical DM (diabetes mellitus), type 2 Procedure/Surgical History No retinopathy of left eye due to diabetes mellitus: 07/04/20 No retinopathy of right eye due to diabetes mellitus: 07/04/20 Eye examination, DM: 03/07/20 Cholecystectomy Rotator cuff repair, L Medications Home Medications (14) Active amLODIPine 5 mg oral tablet 5 mg = 1 tab(s), Oral, BID aspirin 81 mg oral delayed release tablet 81 mg = 1 tab(s), Oral, qDay atorvastatin 40 mg oral tablet 40 mg = 1 tab(s), Oral, qDay Blood Glucose Test Strips See Instructions fluticasone 50 mcg/inh NASAL spray 50 mcg, Nasal, qDay Lancets See Instructions latanoprost 0.005% ophthalmic solution 1 drop(s), Eyes, both, qHS lisinopril 40 mg oral tablet 40 mg = 1 tab(s), Oral, qDay MetFORMIN (Eqv-Glucophage XR) 500 mg oral tablet, EXTENDED RELEASE 2,000 mg = 4 tab(s), Oral, qDay Multivitamin 1 tab(s), Oral, Daily pioglitazone 30 mg oral tablet 30 mg = 1 tab(s), Oral, Daily sertraline 25 mg oral tablet 25 mg = 1 tab(s), Oral, qDay Timolol Maleate (Eqv-Timoptic) 0.5% ophthalmic solution 1 gtt(s), Eyes, both, BID Vitamin D3 2,000 unit(s) = 1 tab(s), Oral, Daily Allergies NKA Social History Smoking Status - 03/21/2015 Never smoker Alcohol Use: Current. Frequency: 1-2 times per year., 07/08/2024 Employment/School Status: Retired. 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 Appetite Good. Eating Difficulties None. Caffeine intake amount: 2 coffee daily., 10/08/2024 Substance Abuse Use: Never., 12/09/2018 Tobacco Nicotine Use: Never (less than 100 in lifetime)., 10/20/2024 Family History Diabetes: Daughter. Hyperlipidemia: Mother, Father and Brother. Hypertension: Mother. Malignant tumor of lung: Mother. Health Status Family Member(s) Immunizations pneumococcal 13-valent conjugate vaccine: 0 unknown unit (09/16/14) pneumococcal 23-valent vaccine(Pneumovax: 0 unknown unit (02/13/06) SARS-CoV-2 (COVID-19) mRNA-1273 vaccine: 0.25 unknown unit (08/03/21) SARS-CoV-2 (COVID-19) mRNA-1273 vaccine: 0.5 unknown unit (02/24/21) SARS-CoV-2 (COVID-19) mRNA-1273 vaccine: 100 mcg (06/22/20) SARS-CoV-2 (COVID-19) mRNA-1273 vaccine: 0 unknown unit (05/25/20) tetanus/diphtheria/pertussMUL.ORD![id number]: 0.5 unknown unit (08/03/21) tetanus/diphtheria/pertussMUL.ORD![id number]: 0 unknown unit (08/25/12) zoster vaccine, inactivated: 1 unknown unit (05/16/19) zoster vaccine, inactivated: 1 unknown unit (02/04/19) Code Status Code Status - Ordered -- 10/20/24 22:35:00 EDT, Full Code, Constant Order Digitally Signed by LUIS SAMUELS DO on 10/25/2024 06:18 AM [facility] [id number] Evaluation + Plan noteExtracted from: Title:MICU History and Physical Author:LUIS SAMUELS DO Date:10/25/24 Acute hypoxic respiratory fa ilure HFpEF (last EF 50 to 55% in 05/2024) Toxic metabolic encephalopathy Hyponatremia Cardiac arrest likely vasovagal in setting of urinary retention Past medical history: diabetes type 2, dementia, hypertension, intentional use of spouse medication especially oxycodone, rib fractures Patient is an 83-year-old initially admitted to the floor on 10/20/2024 for hyponatremia and altered mentation. On 10/21, patient was transferred to MICU after ROSC was achieved after 1 round of CPR. Etiology of the CODE BLUE was likely vasovagal in the setting of urinary retention. Patient was deemed stable to be transferred out of the MICU on 10/21/2024. Rapid response was called today for increasing oxygen requirement. Extra dose of IV Lasix 40 mg x 1, ceftriaxone and doxycycline were added by the the hospitalist. ABG showed pH 7.508, [id number], PO2 37.5, O2 sat 74.9 on 15 L nasal cannula. Patient was subsequently put on BiPAP without improvement in his oxygenation. Therefore, he was subsequently transferred to MICU for further evaluation management. When the patient was here in the MICU, his oxygenation improved to the mid 90s on BiPAP (14/8) with FiO2 85%; therefore, intubation was hold off. Patient denied having difficulty breathing on the BiPAP or having any fevers or chills. Plan Will continue BiPAP and recheck an ABG in a few hours. Wean oxygen as tolerated. Will continue with IV Lasix 20 mg every 6 hours for diastolic heart failure. Echocardiogram ordered and pending at the time of this dictation. Cardiology has been consulted. Will replete electrolytes as needed to maintain K > 4 and Mg > 2 Patient was started on ceftriaxone doxycycline on the floor due to concern for increasing oxygen requirement. Will check a respiratory culture, atypicals. Urology consulted per family's request for urinary retention. Case discussed with attending Dr. Guthrie, please see addendum for any changes. Addendum by SHYANNE GUTHRIE MD on October 25, 2024 15:46:10 EDT Attending attestation: I have reviewed the history, labs and imaging with the resident and discussed the plan of care. I have independently taken a history and examined the patient. Agree with findings and plan as detailed above. I would like to add the followin-year-old male past medical history of hypertension, diabetes, mild dementia initially presented the ER for altered mental status over the weekend. They also report a recent fall with rib fracture. On the floor patient started normal saline 75 cc/h for hyponatremia. Patient was being evaluated by his nurse when he turned blue lost his pulse. 1 round of CPR was performed. Then transferred to medical ICU. His mentation did slowly improve so he did not require endotracheal intubation. He was found to have a significantly distended bladder on palpation. Reilly catheter was placed with over 1.5 L urine draining immediately. Yesterday patient was transferred out of ICU. Continued to have urinary retention so Reilly catheter was replaced. Patient started to have increased oxygen requirements overnight eventually placed on BiPAP so transferred back to ICU. Was given dose of Lasix with stabilization of respiratory status. This morning patient is lying in bed calmly on BiPAP not in respiratory distress. Chest x-ray still concerning for pulmonary edema Assessment Acute hypoxic respiratory failure. Possible heart failure laceration Cardiac arrest likely vasovagal in setting of urinary retention. Likely underlying BPH Possible expressive aphasia versus toxic metabolic encephalopathy Hyponatremia resolved Chronic medical problems include hypertension, diabetes, mild dementia, aortic stenosis Plan Chest x-ray still with ongoing volume overload. Redosed Lasix today. Echocardiogram pending Continue Flomax, Reilly catheter remain in place. Urology consulted Thyroid function within normal limits. Normal B12. MRI without acute stroke. Chronic vascular changes. Possible vascular dementia leading to presentation. Neurology following for further evaluation. Continue aspirin atorvastatin Heparin subcu for DVT prophylaxis If patient can tolerate being off BiPAP and stable on nasal cannula will transfer back to stepdown unit as CODE STATUS has been switched to DNR/DNI 30 minutes critical care time Extracted from: Title:MICU History and Physical Author:LUIS SAMUELS DO Date:10/21/24 Cardiac arrest, achieved ROS C s/p 1 round of CPR Hyponatremia - improving Metabolic encephalopathy Urinary retention Past medical history: diabetes type 2, dementia, hypertension, intentional use of spouse medication especially oxycodone, rib fractures Plan Patient is an 83-year-old male initially admitted to the floor on 10/20/2024 for hyponatremia. At 1401 on 10/21/2024, a CODE BLUE was called on this patient. His nurse who was at bedside witnessed patient started to yell out, tensed up, turned blue and became pulseless. After 1 round of CPR, his ROSC was achieved. No medications were needed during the code. Anesthesiology at bedside did not think patient would need intubation since he was able to have a cough, gag reflex and have a respiratory drive. Patient was subsequently transferred to MICU for further evaluation and management. Will check a CBC, CMP, troponin, EKG to further look for etiologies of his cardiac arrest. Given distended bladder was palpated on exam, a bladder scan was done which showed patient was retaining greater than 1 L of urine. Reilly catheter was inserted. At this point, it could be a vagal reaction caused by patient straining to urinate, which caused him to become unresponsive and pulseless. Will start Flomax to help with this urinary retention. Regarding hyponatremia, will continue IVF with NS at 75 mL/h as his sodium has been trending appropriately. Case discussed with attending Dr. Guthrie, please see addendum for any changes. Addendum by SHYANNE GUTHRIE MD on October 22, 2024 12:05:43 EDT attending attestation: I have reviewed the history, labs and imaging with the resident and discussed the plan of care. I have independently taken a history and examined the patient. Agree with findings and plan as detailed above. I would like to add the followin-year-old male past medical history of hypertension, diabetes, mild dementia initially presented the ER for altered mental status over the weekend. They also report a recent fall with rib fracture. On the floor patient started normal saline 75 cc/h for hyponatremia. Patient was being evaluated by his nurse when he turned blue lost his pulse. 1 round of CPR was performed. Then transferred to medical ICU. His mentation did slowly improve so he did not require endotracheal intubation. He was found to have a significantly distended bladder on palpation. Reilly catheter was placed with over 1.5 L urine draining immediately. This morning patient is lying in bed awake and calm not in any distress. He is following all my commands. He is able to answer some of my questions appropriately but other times appears to be nonsensical Assessment Cardiac arrest likely vasovagal in setting of urinary retention Possible expressive aphasia versus toxic metabolic encephalopathy Hyponatremia improving Chronic medical problems include hypertension, diabetes, mild dementia Plan Maintain Reilly catheter for now. Flomax started Sodium is appropriately up trended to 129. Can discontinue maintenance fluid. He is tolerating orally Thyroid function within normal limits. Will check B12 level. Obtain brain MRI to rule out stroke as patient may actually be having expressive aphasia. Consult neurology. Continue aspirin atorvastatin Heparin subcu for DVT prophylaxis Okay to transfer out of ICU. Patient's daughters updated at the bedside 35 minutes critical care time Extracted from: Title:History and Physical Author:ARAM BELL Date:10/20/24 Hyponatremia Altered mental status Recent rib fractures Generalized weakness T2DM Dementia Hypertension The patient was admitted for management of altered mental status in the setting of hyponatremia. Altered mental status could be explained by recent medication, reports of taking patient's 's pain medication, patient was opiate positive on UDS. Additionally patient started on sertraline in setting of anxiety. These medications can cause SIADH which explains patient's hyponatremia. Patient was given normal saline bolus in the [place] ED, sodium did improve from 122-123. Continue gentle NS hydration. Check TSH, check urine osmolality and urine sodium. UA was negative, no definitive infectious etiology seen to explain patient's altered mental status. CBC and BMP are ordered daily and replete electrolytes necessary. Continue patient's home chronic medications pending pharmacy verification. The labs, the imaging, the EKG were personally reviewed this case. The case was personally discussed with the ED physician. DVT prophylaxis: SCDs The patient is listed as a full code The patient will require a 2 midnight stay for management of electrolyte derangements, particularly hyponatremia, risk of decompensation of discharge and worsening neurologic symptoms. Patient requires monitoring of sodium and BMP in investigation as to etiology. Future Appointments Appointment Date:01/06/2025 10:30:00 AM Scheduled Provider:RASHMI PRICE Location:[facility] Appointment Type:PC OV Diagnostic Tests Pending * Culture Respiratory with Gram Stain 10/25/24 [facility] 06-22-2025 Cardiology Consult note Date of Service 10/25/2024 Reason for Consultation recurrent syncope, wide-complex tachycardia Referring Physician MICU team History of Present Illness Patient is an 83-year-old male with past medical and cardiac history as in the assessment. The patient presented to the hospital for acute confusion and admitted for acute encephalopathy. Found to have hyponatremia and currently being treated for it. During the hospital stay, patient had recurrent episode of syncope and hypoxia. Transferred to ICU for hypoxia last night. Cardiology was consulted for wide- complex rhythm and recurrent syncope. Patient denies chest pain or discomfort before coming to the hospital. Functional status is good atbaseline. Denied lower extremity swelling, orthopnea and PND. Also denied episode of lightheadedness, dizziness, presyncope syncope. He denies smoking, drinking or drug use. Follow regularly with PCP. Review of Systems Constitutional: denies Fevers and chills , no loss of appetite, denies fatigue or weight change Eyes: Denies double vision/blurring of vision/flashes or floaters Ears, Nose, Mouth & Throat: Denies any tinnitus/hearing loss/sinus congestion/nasal discharge/sore throat Gastrointestinal: Denies any abdominal pain/nausea/vomiting/diarrhea/hematochezia/hematemesis/melena Genitourinary: Denies any dysuria/hematuria Musculoskeletal: denies joint pain or joint swelling or deformities Skin: No ulcers or rash Neurological: denies Weakness or numbness of extremities/facial droop/loss of balance Endocrine: Denies any heat or cold intolerance/polyuria/polydipsia/polyphagia Hematologic/Lymphatic: denies lymphadenopathy Allergic/Immunologic: Denies any seasonal allergy/sneezing/tearing from the eyes Physical Exam Vitals and Measurements T: 36.8 C (Axillary) TMIN: 36.5 C (Oral) TMAX: 37.2 C (Axillary) HR: 92 (Monitored) RR: 19 BP: 129/86 SpO2: 94% Weight Dosing Weight: 70.5 kg (10/20/24) General Appearance: Patient comfortably lying on bed, not in acute distress Head: Normocephalic, atraumatic EENT: PERRLA, Neck: Supple, no JVD, no mass Cardiac: Crescendo-decrescendo murmur at aortic area, second heart sound is soft but intact Lungs: Mild bilateral crackles Abdomen: Soft , Nontender, no organomegaly, bowel sounds heard Musculoskeletal: Full ROM , no gross deformities Extremities: No rash or ulcers or pedal edema Neurological: Alert, oriented x 3, grossly no focal neurological deficits Skin: No rash or ulcers Lab Results 10/25 02:13 WBC: 7.8 Hgb: 13.0 Hct: 38.0 L Platelet: 258 Neutrophil %: 79.5 H Glucose Level: 169 H Sodium Level: 130 L Potassium Level: 3.3 L BUN: 13.0 Creatinine Lvl (s): 0.64 10/24 13:25 WBC: 7.4 Hgb: 12.3 L Hct: 36.1 L Platelet: 234 Neutrophil %: 80.7 H Glucose Level: 185 H Sodium Level: 129 L Potassium Level: 3.5 BUN: 15.0 Creatinine Lvl (s): 0.51 L Assessment/Plan Acute respiratory failure of mixed etiology Acute mild exacerbation of HFpEF Chronic left bundle branch block Recurrent syncope Moderate aortic stenosis Acute/acute on chronic encephalopathy Concern for dementia Hyponatremia Type 2 diabetes mellitus Hypertension Hyperlipidemia Review of EKG showed wide-complex tachycardia consistent with chronic left bundle branch block. No chest pain since admission. Troponin was normal. Patient will need ischemic evaluation if he is agreeable to it at some point. Discussed with the family today. Has history of moderate aortic stenosis by TTE in May 2024. Will repeat the TTE to reassess the severity of aortic stenosis. Mild pulmonary congestion on chest x-ray. Patient has bilateral crackles on examination. Recommend to give another dose of Lasix today. Will reassess volume status tomorrow. Recommend [facility] at discharge for recurrent syncope. Thank you for letting us participate in patient care. Cardiology will continue to follow. Problem List/Past Medical History Ongoing Anxiety Aortic stenosis, moderate Atherosclerosis of aorta Benign non-nodular prostatic hyperplasia BMI 24.0-24.9, adult De Quervain's disease (tenosynovitis) Diastolic dysfunction with heart failure Glaucoma Hypercholesteremia Hypertension Hypertension associated with type 2 diabetes mellitus Iron deficiency anemia Medicare annual wellness visit, subsequent Microalbuminuria Mitral valve regurgitation Opacification of intraocular lens Pseudophakia Type 2 diabetes mellitus Type 2 diabetes mellitus with hyperlipidemia Type 2 diabetes with complication Historical DM (diabetes mellitus), type 2 Procedure/Surgical History No retinopathy of left eye due to diabetes mellitus: 07/04/20 No retinopathy of right eye due to diabetes mellitus: 07/04/20 Eye examination, DM: 03/07/20 Cholecystectomy Rotator cuff repair, L Medications Inpatient aspirin 81 mg oral delayed release tablet, 81 mg= 1 tab(s), Oral, qDay atorvastatin, 40 mg= 1 tab(s), Oral, qDay cefTRIAXone, 2 gram(s)= 20 mL, IV Push (INT), qDay Dextrose 50% IV Push, 25 gram(s)= 50 mL, IV Push, AsDirected, PRN Dextrose 50% IV Push, 25 gram(s)= 50 mL, IV Push, AsDirected, PRN doxycycline DuoNeb, 3 mL, Inhalation, q4hRT, PRN Flomax, 0.4 mg= 1 cap(s), Oral, qDay fluticasone 50 mcg/inh NASAL spray, 50 mcg= 1 spray(s), Nasal, qDay heparin 5000 units/mL injection, 5000 unit(s)= 1 mL, Subcutaneous, q8h HumaLOG 100 units/mL subcutaneous solution, Give 0-5 units/dose, Subcutaneous, TIDAC latanoprost 0.005% ophthalmic solution, 1 drop(s), Eyes, both, qHS potassium chloride, 20 mEq= 100 mL, IV Piggyback, q2hrs sertraline, 25 mg= 1 tab(s), Oral, qDay Tigan, 200 mg= 2 mL, Intramuscular, q6h, PRN Timoptic 0.5% ophthalmic solution, 1 drop(s), Eyes, both, BID Tylenol, 650 mg= 2 tab(s), Oral, q4h, PRN Home amLODIPine 5 mg oral tablet, 5 mg= 1 tab(s), Oral, BID, 3 refills aspirin 81 mg oral delayed release tablet, 81 mg= 1 tab(s), Oral, qDay, 3 refills atorvastatin 40 mg oral tablet, 40 mg= 1 tab(s), Oral, qDay, 3 refills Blood Glucose Test Strips, See Instructions, 3 refills fluticasone 50 mcg/inh NASAL spray, 50 mcg, Nasal, qDay, 2 refills Lancets, See Instructions, 5 refills latanoprost 0.005% ophthalmic solution, 1 drop(s), Eyes, both, qHS lisinopril 40 mg oral tablet, 40 mg= 1 tab(s), Oral, qDay, 3 refills MetFORMIN (Eqv-Glucophage XR) 500 mg oral tablet, EXTENDED RELEASE, 2000 mg= 4 tab(s), Oral, qDay, 3 refills Multivitamin, 1 tab(s), Oral, Daily pioglitazone 30 mg oral tablet, 30 mg= 1 tab(s), Oral, Daily, 3 refills sertraline 25 mg oral tablet, 25 mg= 1 tab(s), Oral, qDay Timolol Maleate (Eqv-Timoptic) 0.5% ophthalmic solution, 1 gtt(s), Eyes, both, BID Vitamin D3, 2000 unit(s)= 1 tab(s), Oral, Daily Allergies NKA Social History Smoking Status - 03/21/2015 Never smoker Alcohol Use: Current. Frequency: 1-2 times per year., 07/08/2024 Employment/School Status: Retired. 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 Appetite Good. Eating Difficulties None. Caffeine intake amount: 2 coffee daily., 10/08/2024 Substance Abuse Use: Never., 12/09/2018 Tobacco Nicotine Use: Never (less than 100 in lifetime)., 10/20/2024 Family History Diabetes: Daughter. Hyperlipidemia: Mother, Father and Brother. Hypertension: Mother. Malignant tumor of lung: Mother. Health Status Family Member(s) Immunizations pneumococcal 13-valent conjugate vaccine: 0 unknown unit (09/16/14) pneumococcal 23-valent vaccine(Pneumovax: 0 unknown unit (02/13/06) SARS-CoV-2 (COVID-19) mRNA-1273 vaccine: 0.25 unknown unit (08/03/21) SARS-CoV-2 (COVID-19) mRNA-1273 vaccine: 0.5 unknown unit (02/24/21) SARS-CoV-2 (COVID-19) mRNA-1273 vaccine: 100 mcg (06/22/20) SARS-CoV-2 (COVID-19) mRNA-1273 vaccine: 0 unknown unit (05/25/20) tetanus/diphtheria/pertussMUL.ORD![id number]: 0.5 unknown unit (08/03/21) tetanus/diphtheria/pertussMUL.ORD![id number]: 0 unknown unit (08/25/12) zoster vaccine, inactivated: 1 unknown unit (05/16/19) zoster vaccine, inactivated: 1 unknown unit (02/04/19) Digitally Signed by JOE CABRERA MD on 10/25/2024 10:46 AM [id number] Note. MICRO - Microbiology PROCEDURE: Streptococcus Pneumoniae Urine Antig [^1 *1] SOURCE: Urine BODY SITE: COLLECTED DATE/TIME: 10/25/2024 07:02 EDT RECEIVED DATE/TIME: 10/25/2024 07:28 EDT START DATE/TIME: 10/25/2024 07:28 EDT FREE TEXT SOURCE: FINAL REPORTS Final Report [] Verified Date/Time/Personnel: 10/25/2024 07:51 EDT Presumptive negative for pneumococcal pneumonia, suggesting no current or recent pneumococcal infection. Infection due to Strep pneumoniae cannot be ruled out since the antigen present in the sample may be below the detection limit of the test. Interpretive Data ^1: Streptococcus Pneumoniae Urine Antig This test has not been evaluated on patients taking antibiotics for greater than 24 hours or on patients who have recently completed an antibiotic regimen. The accuracy of this test has not been proven in young children. Performing Locations *1: This test was performed at: [address] [id number] Note. MICRO - Microbiology PROCEDURE: Legionella Urine Ag [*1] SOURCE: Urine BODY SITE: COLLECTED DATE/TIME: 10/25/2024 07:02 EDT RECEIVED DATE/TIME: 10/25/2024 07:28 EDT START DATE/TIME: 10/25/2024 07:29 EDT FREE TEXT SOURCE: FINAL REPORTS Final Report [] Verified Date/Time/Personnel: 10/25/2024 07:50 EDT Presumptive negative for L. pneumophila serogroup 1 antigen in urine, suggesting no recent or current infection. Legionnaire's disease cannot be ruled out since other serogroups and species may also cause disease. Performing Locations *1: This test was performed at: [address] [id number] Note Date of Service 10/25/2024 I discussed the patient's CODE STATUS with his healthcare power of commercial attorney Lilly Monroy who wanted to switch his CODE STATUS to DNR/DNI. This DNR/DNI CODE STATUS was explained further to his POA who verbalized understanding and was agreeable to switching the patient's CODE STATUS to DNR/DNI. Digitally Signed by LUIS SAMUELS DO on 10/25/2024 04:51 AM [facility] [id number] Note* Exam Date Time Procedure Performing Provider Status 10/25/24 2:07 AM XR Chest 1 View TIEN CAN MD; Aut h (Verified) [id number] ORIGINAL EXAMINATION: ONE XRAY VIEW OF THE CHEST 10/25/2024 2:07 am COMPARISON: None. HISTORY: ORDERING SYSTEM PROVIDED HISTORY: Reason for Exam: hypoxia FINDINGS: Small bilateral effusions. Heart size is mildly enlarged however stable. Atherosclerotic calcification of the aorta is noted. No pneumothorax. Hazy airspace disease is present at the lung bases. IMPRESSION: Small bilateral effusions with hazy airspace disease at the lung bases. Interpreted by: Tien Can MD Preliminary Report By: Tien Can MD Electronically signed By Tien Can MD Dictated Date: 10/25/2024 2:13:50 AM Prelim Date: 10/25/2024 2:15:00 AM Sign Date: 10/25/2024 2:15:00 AM Ordering Provider: LUIS SAMUELS [facility] [id number] History and physical note Date of Service 10/25/2024 History of Present Illness Patient is an 83-year-old initially admitted to the floor on 10/20/2024 for hyponatremia and alteredmentation. On 10/21, patient was transferred to MICU after ROSC was achieved after 1 round of CPR. Etiology of the CODE BLUE was likely vasovagal in the setting of urinary retention. Neurology was consulted for altered mental status. On 10/21/2024, MRI brain was done showing no acute stroke, chronic vascular changes. Possible vascular dementia leading to presentation. Patient was deemed stable to be transferred out of the MICU. Per chart review, after patient was transferred to the floor, he was evaluated for a mild to moderate HFpEF likely 2/2 cardiac arrest and IV fluid use to improve his hyponatremia. Patient was startedon diuresis with IV Lasix 20 mg every 6 hours. Echocardiogram was ordered. Cardiology was consulted. Urology was subsequently consulted per family's request for urinary retention. Rapid response was called today for increasing oxygen requirement. Extra dose of IV Lasix 40 mg x 1, ceftriaxone and doxycycline were added by the the hospitalist. ABG showed pH 7.508, IBC067, PO2 37.5, O2 sat 74.9 on 15 L nasal cannula. Patient was subsequently put on BiPAP without improvement in his oxygenation. Therefore, he was subsequently transferred to MICU for further evaluation management. When the patient was here in the MICU, his oxygenation improved to the mid 90s on BiPAP (17/12) withFiO2 85%; therefore, intubation was hold off. Patient denied having difficulty breathing on the BiPAP or having any fevers or chills. Physical Exam Vitals and Measurements T: 37.2 C (Axillary) TMIN: 36.5 C (Oral) TMAX: 37.2 C (Axillary) HR: 97 (Monitored) RR: 18 BP: 131/94 SpO2: 97% Weight Dosing Weight: 70.5 kg (10/20/24) General: In no acute distress Oral cavity: Moist Oral Mucosa CVS: RRR, No murmur, Normal S1S2, mild pedal edema in bilateral lower extremities Respiratory: Equal bilateral breath sounds, no wheezing, no crackles, no accessory muscle use Abdomen: Non-tender, soft, not distended Ext: Warm to touch Neuro: No neurological deficits noted. Lab Results 10/24 13:25 WBC: 7.4 Hgb: 12.3 L Hct: 36.1 L Platelet: 234 Neutrophil %: 80.7 H Glucose Level: 185 H Sodium Level: 129 L Potassium Level: 3.5 BUN: 15.0 Creatinine Lvl (s): 0.51 L Imaging Results and Diagnostics XR Chest 1 View Result Date: October 25, 2024 Verified By: TIEN CAN MD CLINICAL STATEMENT: IMPRESSION: Small bilateral effusions with hazy airspace disease at the lung bases. XR Chest 1 View Result Date: October 24, 2024 Verified By: HUBER CORRAL DO CLINICAL STATEMENT: IMPRESSION: []Image findings compatible with congestive failure. Superimposing airspaceprocess considered. Correlate with clinical findings. CT Head or Brain w/o Contrast Result Date: October 23, 2024 Verified By: NÉSTOR SNYDER MD CLINICAL STATEMENT: IMPRESSION: No acute intracranial hemorrhage, mass effect or midline shift. I have personally reviewed the images of this examination and agree with theresident's findings and interpretation. MRI Brain w/o Contrast Result Date: October 22, 2024 Verified By: RASHMI AGUIRRE DO CLINICAL STATEMENT: IMPRESSION: 1. No acute intracranial abnormality.2. Primarily confluent periventricular white matter FLAIR hyperintensities,right greater than left. This is nonspecific and may represent chronicmicrovascular ischemic changes. XR Enteric Tube Placement Result Date: October 21, 2024 Verified By: SANG KNUTSON DO CLINICAL STATEMENT: IMPRESSION: 1. Orogastric tube in functional position.2. No acute pulmonary disease. Assessment/Plan Acute hypoxic respiratory failure HFpEF (last EF 50 to 55% in 05/2024) Toxic metabolic encephalopathy Hyponatremia Cardiac arrest likely vasovagal in setting of urinary retention Past medical history: diabetes type 2, dementia, hypertension, intentional use of spouse medicationespecially oxycodone, rib fractures Patient is an 83-year-old initially admitted to the floor on 10/20/2024 for hyponatremia and alteredmentation. On 10/21, patient was transferred to MICU after ROSC was achieved after 1 round of CPR. Etiology of the CODE BLUE was likely vasovagal in the setting of urinary retention. Patient was deemed stable to be transferred out of the MICU on 10/21/2024. Rapid response was called today for increasing oxygen requirement. Extra dose of IV Lasix 40 mg x 1, ceftriaxone and doxycycline were added by the the hospitalist. ABG showed pH 7.508, MBM463, PO2 37.5, O2 sat 74.9 on 15 L nasal cannula. Patient was subsequently put on BiPAP without improvement in his oxygenation. Therefore, he was subsequently transferred to MICU for further evaluation management. When the patient was here in the MICU, his oxygenation improved to the mid 90s on BiPAP (14/8) withFiO2 85%; therefore, intubation was hold off. Patient denied having difficulty breathing on the BiPAP or having any fevers or chills. Plan Will continue BiPAP and recheck an ABG in a few hours. Wean oxygen as tolerated. Will continue with IV Lasix 20 mg every 6 hours for diastolic heart failure. Echocardiogram ordered and pending at the time of this dictation. Cardiology has been consulted. Will replete electrolytes as needed to maintain K > 4 and Mg > 2 Patient was started on ceftriaxone doxycycline on the floor due to concern for increasing oxygen requirement. Will check a respiratory culture, atypicals. Urology consulted per family's request for urinary retention. Case discussed with attending Dr. Guthrie, please see addendum for any changes. Problem List/Past Medical History Ongoing Anxiety Aortic stenosis, moderate Atherosclerosis of aorta Benign non-nodular prostatic hyperplasia BMI 24.0-24.9, adult De Quervain's disease (tenosynovitis) Diastolic dysfunction with heart failure Glaucoma Hypercholesteremia Hypertension Hypertension associated with type 2 diabetes mellitus Iron deficiency anemia Medicare annual wellness visit, subsequent Microalbuminuria Mitral valve regurgitation Opacification of intraocular lens Pseudophakia Type 2 diabetes mellitus Type 2 diabetes mellitus with hyperlipidemia Type 2 diabetes with complication Historical DM (diabetes mellitus), type 2 Procedure/Surgical History No retinopathy of left eye due to diabetes mellitus: 07/04/20 No retinopathy of right eye due to diabetes mellitus: 07/04/20 Eye examination, DM: 03/07/20 Cholecystectomy Rotator cuff repair, L Medications Home Medications (14) Active amLODIPine 5 mg oral tablet 5 mg = 1 tab(s), Oral, BID aspirin 81 mg oral delayed release tablet 81 mg = 1 tab(s), Oral, qDay atorvastatin 40 mg oral tablet 40 mg = 1 tab(s), Oral, qDay Blood Glucose Test Strips See Instructions fluticasone 50 mcg/inh NASAL spray 50 mcg, Nasal, qDay Lancets See Instructions latanoprost 0.005% ophthalmic solution 1 drop(s), Eyes, both, qHS lisinopril 40 mg oral tablet 40 mg = 1 tab(s), Oral, qDay MetFORMIN (Eqv-Glucophage XR) 500 mg oral tablet, EXTENDED RELEASE 2,000 mg = 4 tab(s), Oral, qDay Multivitamin 1 tab(s), Oral, Daily pioglitazone 30 mg oral tablet 30 mg = 1 tab(s), Oral, Daily sertraline 25 mg oral tablet 25 mg = 1 tab(s), Oral, qDay Timolol Maleate (Eqv-Timoptic) 0.5% ophthalmic solution 1 gtt(s), Eyes, both, BID Vitamin D3 2,000 unit(s) = 1 tab(s), Oral, Daily Allergies NKA Social History Smoking Status - 03/21/2015 Never smoker Alcohol Use: Current. Frequency: 1-2 times per year., 07/08/2024 Employment/School Status: Retired. 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 Appetite Good. Eating Difficulties None. Caffeine intake amount: 2 coffee daily., 10/08/2024 Substance Abuse Use: Never., 12/09/2018 Tobacco Nicotine Use: Never (less than 100 in lifetime)., 10/20/2024 Family History Diabetes: Daughter. Hyperlipidemia: Mother, Father and Brother. Hypertension: Mother. Malignant tumor of lung: Mother. Health Status Family Member(s) Immunizations pneumococcal 13-valent conjugate vaccine: 0 unknown unit (09/16/14) pneumococcal 23-valent vaccine(Pneumovax: 0 unknown unit (02/13/06) SARS-CoV-2 (COVID-19) mRNA-1273 vaccine: 0.25 unknown unit (08/03/21) SARS-CoV-2 (COVID-19) mRNA-1273 vaccine: 0.5 unknown unit (02/24/21) SARS-CoV-2 (COVID-19) mRNA-1273 vaccine: 100 mcg (06/22/20) SARS-CoV-2 (COVID-19) mRNA-1273 vaccine: 0 unknown unit (05/25/20) tetanus/diphtheria/pertussMUL.ORD![id number]: 0.5 unknown unit (08/03/21) tetanus/diphtheria/pertussMUL.ORD![id number]: 0 unknown unit (08/25/12) zoster vaccine, inactivated: 1 unknown unit (05/16/19) zoster vaccine, inactivated: 1 unknown unit (02/04/19) Code Status Code Status - Ordered -- 10/20/24 22:35:00 EDT, Full Code, Constant Order Digitally Signed by LUIS SAMUELS DO on 10/25/2024 06:18 AM [id number] Note Date of Service 10/24/24 Reason for Consultation transfer out of ICU Referring Physician ICU History of Present Illness 83-year-old male with history of essential hypertension, [id number] type 2 diabetes mellitus, dementia, hyperlipidemia presented to the hospital with altered mental status and recent fall with subsequent rib fracture. In the ER vitals normal. CBC hemoglobin 12.7, glucose 166, sodium 122,chloride 88, creatinine 0.57, BUN 11. High-sensitivity troponin normal. TSH normal. Opiates positive. Chest x-ray cardiomegaly with pulmonary vascular congestion and age and determinate right rib fractures. Patient was admitted to the hospitalist service for further evaluation of hyponatremia and confusion. Started on IV fluid with normal saline and sodium did gradually improve. The day following admission the patient did experience a cardiac arrest. Patient's nurse noted he was suddenly yelling out, tensed up turned blue became pulseless. 1 round of CPR was performed and ROSC achieved no medications needed. Admitted to the ICU. MRI brain performed due to altered mental status unremarkable. Transferred back to the floors with consults placed to urology for patient's acute urinary retention which required placement of Reilly catheter followed by subsequent failed trial of void and replacement of Reilly catheter. Also cardiology was consulted due to patient's cardiac arrest and widened QRS. While on the floors he was noted to have what cough with crackles bilaterally and imaging consistent with pulmonary edema started on Lasix IV 20 every 8 x 3 doses. An echo was ordered to follow-up oncardiac function in the setting of him being status post cardiac arrest. Physical Exam Vitals and Measurements T: 36.5 C (Oral) TMIN: 36.3 C (Oral) TMAX: 36.6 C (Oral) HR: 107 RR: 18 BP: 135/80 SpO2: 94% Weight Dosing Weight: 70.5 kg (10/20/24) Lab Results 10/24 13:25 WBC: 7.4 Hgb: 12.3 L Hct: 36.1 L Platelet: 234 Neutrophil %: 80.7 H Glucose Level: 185 H Sodium Level: 129 L Potassium Level: 3.5 BUN: 15.0 Creatinine Lvl (s): 0.51 L 10/23 06:11 WBC: 7.2 Hgb: 11.8 L Hct: 33.8 L Platelet: 183 Neutrophil %: 78.7 H Glucose Level: 127 H Sodium Level: 132 L Potassium Level: 3.6 BUN: 16.0 Creatinine Lvl (s): 0.57 L Imaging Results and Diagnostics XR Chest 1 View Result Date: October 24, 2024 Verified By: HUBER CORRAL DO CLINICAL STATEMENT: IMPRESSION: []Image findings compatible with congestive failure. Superimposing airspaceprocess considered. Correlate with clinical findings. CT Head or Brain w/o Contrast Result Date: October 23, 2024 Verified By: NÉSTOR SNYDER MD CLINICAL STATEMENT: IMPRESSION: No acute intracranial hemorrhage, mass effect or midline shift. I have personally reviewed the images of this examination and agree with theresident's findings and interpretation. MRI Brain w/o Contrast Result Date: October 22, 2024 Verified By: RASHMI AGUIRRE DO CLINICAL STATEMENT: IMPRESSION: 1. No acute intracranial abnormality.2. Primarily confluent periventricular white matter FLAIR hyperintensities,right greater than left. This is nonspecific and may represent chronicmicrovascular ischemic changes. XR Enteric Tube Placement Result Date: October 21, 2024 Verified By: SANG KNUTSON DO CLINICAL STATEMENT: IMPRESSION: 1. Orogastric tube in functional position.2. No acute pulmonary disease. Assessment/Plan 1. Toxic metabolic encephalopathy 2. Cardiac arrest 3. Diastolic dysfunction with heart failure 4. Hyponatremia 5. Acute urinary retention 6. Hypertension 7. Hyperlipidemia 8. Type 2 diabetes mellitus 9. Altered mental status Orders: furosemide(Lasix), 20 mg= 2 mL, IV Push, q6hr potassium chloride(KCL bolus), 20 mEq= 100 mL, IV Piggyback, Once potassium chloride(KCL), 40 mEq= 2 tab(s), Oral, Once trimethobenzamide(Tigan), 200 mg= 2 mL, Intramuscular, q6h, PRN Complete Blood Count(CBC), 10/25/24 5:00:00 EDT, Timed Study (collect at specified time), Blood, [id number], for 14 day(s), Preferred Lab: [facility], Stop date 11/07/24 5:00:00 EDT Complete Metabolic Panel(CMP), 10/25/24 5:00:00 EDT, Timed Study (collect at specified time), Blood, [id number], for 14 day(s), Preferred Lab: [facility], Stop date 11/07/24 5:00:00 EDT Consult to Physician, 10/24/24 13:21:00 EDT, LILLY MCINTOSH MD, Routine, family request acute urinary retention Consult to Physician, 10/24/24 7:25:00 EDT, KUN ESPINAL MD, Routine, s/p cardiac arrest? wide qrs eval Echocardiogram Adult(Cardiac Echo Adult), 10/24/24 15:37:00 EDT, Routine, pulmonary edema recent cardiac arrest eval any changes, Physician to Read: [facility], Echo Contrast: Use if indicated and not contraindicated, Bed Nurse and Monitor, Full Code, 70.5 kg, [facility]... Electrocardiogram(EKG), 10/24/24 7:28:00 EDT, follow up ekg from patients cardiac arrest Ferritin, 10/25/24 5:00:00 EDT, Next AM Draw (one day only), Blood, Once, Preferred Lab: [facility], Stop date 10/25/24 5:00:00 EDT Iron Studies, 10/25/24 5:00:00 EDT, Next AM Draw (one day only), Blood, Once, Preferred Lab: [facility], Stop date 10/25/24 5:00:00 EDT Magnesium Level(MG Level), 10/25/24 5:00:00 EDT, Timed Study (collect at specified time), Blood, [id number], for 14 day(s), Preferred Lab: [facility], Stop date 11/07/24 5:00:00 EDT Transfer/Change in Level of Care, 10/24/24 7:24:00 EDT, Level of Care: Stepdown with monitor, Medication Review: I have assessed all medications, any tele floor. he had cardiac arrest needs cardiology eval Urinary Catheter Insertion/Care(Reilly Catheter Insertion/Care), 10/24/24 13:23:00 EDT, Do Not Remove Urinary Catheter, Obstruction/Retention, Cath Care: Daily, failed trial of void Vitamin B12 Level(B12 Level), 10/25/24 5:00:00 EDT, Next AM Draw (one day only), Blood, Once, Preferred Lab: [facility], Stop date 10/25/24 5:00:00 EDT I transferred patient from regular floor to stepdown level of care given he experienced cardiac arrest so that he can be evaluated by cardiology and they can evaluate current rhythm. Currently the patient has a mild to moderate heart failure with preserved ejection fraction exacerbation I think multifactorial related to cardiac arrest and IV fluid use to improve his hyponatremia. Currently without significant oxygen requirement. Will gently diuresis patient is not on Lasix at home. Aggressive repletion of electrolytes and daily lab monitoring as ordered. Echo was ordered. He did have 1 earlier this year but I thought given the cardiac arrest it may be valuable to have the study repeated. Family notes that they are familiar with Dr. Vides and if electrophysiology assessment is needed they request Dr. Vides to evaluate the patient. Experienced acute urinary retention this hospital stay requiring a Reilly catheter and then failed asubsequent trial of void. Reilly catheter placed again. Family was requesting urology evaluation. Urology consult placed. Underlying cause hyponatremia unclear. It did improve w/ IVF earlier in admit. Will try and addresscurrent volume issue then reassess sodium. I did discuss CODE STATUS with patient's healthcare power of commercial attorney. They do wish to continue full CODE STATUS at this time. Problem List/Past Medical History Ongoing Anxiety Aortic stenosis, moderate Atherosclerosis of aorta Benign non-nodular prostatic hyperplasia BMI 24.0-24.9, adult De Quervain's disease (tenosynovitis) Diastolic dysfunction with heart failure Glaucoma Hypercholesteremia Hypertension Hypertension associated with type 2 diabetes mellitus Iron deficiency anemia Medicare annual wellness visit, subsequent Microalbuminuria Mitral valve regurgitation Opacification of intraocular lens Pseudophakia Type 2 diabetes mellitus Type 2 diabetes mellitus with hyperlipidemia Type 2 diabetes with complication Historical DM (diabetes mellitus), type 2 Procedure/Surgical History No retinopathy of left eye due to diabetes mellitus: 07/04/20 No retinopathy of right eye due to diabetes mellitus: 07/04/20 Eye examination, DM: 03/07/20 Cholecystectomy Rotator cuff repair, L Medications Inpatient aspirin 81 mg oral delayed release tablet, 81 mg= 1 tab(s), Oral, qDay atorvastatin, 40 mg= 1 tab(s), Oral, qDay Dextrose 50% IV Push, 25 gram(s)= 50 mL, IV Push, AsDirected, PRN DuoNeb, 3 mL, Inhalation, q4hRT, PRN Flomax, 0.4 mg= 1 cap(s), Oral, qDay fluticasone 50 mcg/inh NASAL spray, 50 mcg= 1 spray(s), Nasal, qDay heparin 5000 units/mL injection, 5000 unit(s)= 1 mL, Subcutaneous, q8h HumaLOG 100 units/mL subcutaneous solution, Give 0-5 units/dose, Subcutaneous, TIDAC KCL, 40 mEq= 2 tab(s), Oral, Once KCL bolus, 20 mEq= 100 mL, IV Piggyback, Once Lasix, 20 mg= 2 mL, IV Push, q6hr latanoprost 0.005% ophthalmic solution, 1 drop(s), Eyes, both, qHS sertraline, 25 mg= 1 tab(s), Oral, qDay Tigan, 200 mg= 2 mL, Intramuscular, q6h, PRN Timoptic 0.5% ophthalmic solution, 1 drop(s), Eyes, both, BID Tylenol, 650 mg= 2 tab(s), Oral, q4h, PRN Home amLODIPine 5 mg oral tablet, 5 mg= 1 tab(s), Oral, BID, 3 refills aspirin 81 mg oral delayed release tablet, 81 mg= 1 tab(s), Oral, qDay, 3 refills atorvastatin 40 mg oral tablet, 40 mg= 1 tab(s), Oral, qDay, 3 refills Blood Glucose Test Strips, See Instructions, 3 refills fluticasone 50 mcg/inh NASAL spray, 50 mcg, Nasal, qDay, 2 refills Lancets, See Instructions, 5 refills latanoprost 0.005% ophthalmic solution, 1 drop(s), Eyes, both, qHS lisinopril 40 mg oral tablet, 40 mg= 1 tab(s), Oral, qDay, 3 refills MetFORMIN (Eqv-Glucophage XR) 500 mg oral tablet, EXTENDED RELEASE, 2000 mg= 4 tab(s), Oral, qDay, 3 refills Multivitamin, 1 tab(s), Oral, Daily pioglitazone 30 mg oral tablet, 30 mg= 1 tab(s), Oral, Daily, 3 refills sertraline 25 mg oral tablet, 25 mg= 1 tab(s), Oral, qDay Timolol Maleate (Eqv-Timoptic) 0.5% ophthalmic solution, 1 gtt(s), Eyes, both, BID Vitamin D3, 2000 unit(s)= 1 tab(s), Oral, Daily Allergies NKA Social History Smoking Status - 03/21/2015 Never smoker Alcohol Use: Current. Frequency: 1-2 times per year., 07/08/2024 Employment/School Status: Retired. 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 Appetite Good. Eating Difficulties None. Caffeine intake amount: 2 coffee daily., 10/08/2024 Substance Abuse Use: Never., 12/09/2018 Tobacco Nicotine Use: Never (less than 100 in lifetime)., 10/20/2024 Family History Diabetes: Daughter. Hyperlipidemia: Mother, Father and Brother. Hypertension: Mother. Malignant tumor of lung: Mother. Health Status Family Member(s) Immunizations pneumococcal 13-valent conjugate vaccine: 0 unknown unit (09/16/14) pneumococcal 23-valent vaccine(Pneumovax: 0 unknown unit (02/13/06) SARS-CoV-2 (COVID-19) mRNA-1273 vaccine: 0.25 unknown unit (08/03/21) SARS-CoV-2 (COVID-19) mRNA-1273 vaccine: 0.5 unknown unit (02/24/21) SARS-CoV-2 (COVID-19) mRNA-1273 vaccine: 100 mcg (06/22/20) SARS-CoV-2 (COVID-19) mRNA-1273 vaccine: 0 unknown unit (05/25/20) tetanus/diphtheria/pertussMUL.ORD![id number]: 0.5 unknown unit (08/03/21) tetanus/diphtheria/pertussMUL.ORD![id number]: 0 unknown unit (08/25/12) zoster vaccine, inactivated: 1 unknown unit (05/16/19) zoster vaccine, inactivated: 1 unknown unit (02/04/19) [1] Echocardiogram, Adult - CV; Rhina Harris B Business Transformation Consultant 05/18/2024 13:19 EST [2] Echocardiogram, Adult - CV; Tanesha Harrise B Business Transformation Consultant 05/18/2024 13:19 EST Digitally Signed by NATASHA TALAVERA MD on 10/24/2024 03:55 PM [id number] Note Date of Service 10/24/24 Reason for Consultation transfer out of ICU Referring Physician ICU History of Present Illness 83-year-old male with history of essential hypertension, svv-[id number]-movobruul type 2 diabetes mellitus, dementia, hyperlipidemia presented to the hospital with altered mental status and recent fall with subsequent rib fracture. In the ER vitals normal. CBC hemoglobin 12.7, glucose 166, sodium 122,chloride 88, creatinine 0.57, BUN 11. High-sensitivity troponin normal. TSH normal. Opiates positive. Chest x-ray cardiomegaly with pulmonary vascular congestion and age and determinate right rib fractures. Patient was admitted to the hospitalist service for further evaluation of hyponatremia and confusion. Started on IV fluid with normal saline and sodium did gradually improve. The day following admission the patient did experience a cardiac arrest. Patient's nurse noted he was suddenly yelling out, tensed up turned blue became pulseless. 1 round of CPR was performed and ROSC achieved no medications needed. Admitted to the ICU. MRI brain performed due to altered mental status unremarkable. Transferred back to the floors with consults placed to urology for patient's acute urinary retention which required placement of Reilly catheter followed by subsequent failed trial of void and replacement of Reilly catheter. Also cardiology was consulted due to patient's cardiac arrest and widened QRS. While on the floors he was noted to have what cough with crackles bilaterally and imaging consistent with pulmonary edema started on Lasix IV 20 every 8 x 3 doses. An echo was ordered to follow-up oncardiac function in the setting of him being status post cardiac arrest. Physical Exam Vitals and Measurements T: 36.5 C (Oral) TMIN: 36.3 C (Oral) TMAX: 36.6 C (Oral) HR: 107 RR: 18 BP: 135/80 SpO2: 94% Weight Dosing Weight: 70.5 kg (10/20/24) Lab Results 10/24 13:25 WBC: 7.4 Hgb: 12.3 L Hct: 36.1 L Platelet: 234 Neutrophil %: 80.7 H Glucose Level: 185 H Sodium Level: 129 L Potassium Level: 3.5 BUN: 15.0 Creatinine Lvl (s): 0.51 L 10/23 06:11 WBC: 7.2 Hgb: 11.8 L Hct: 33.8 L Platelet: 183 Neutrophil %: 78.7 H Glucose Level: 127 H Sodium Level: 132 L Potassium Level: 3.6 BUN: 16.0 Creatinine Lvl (s): 0.57 L Imaging Results and Diagnostics XR Chest 1 View Result Date: October 24, 2024 Verified By: HUBER CORRAL DO CLINICAL STATEMENT: IMPRESSION: []Image findings compatible with congestive failure. Superimposing airspaceprocess considered. Correlate with clinical findings. CT Head or Brain w/o Contrast Result Date: October 23, 2024 Verified By: NÉSTOR SNYDER MD CLINICAL STATEMENT: IMPRESSION: No acute intracranial hemorrhage, mass effect or midline shift. I have personally reviewed the images of this examination and agree with theresident's findings and interpretation. MRI Brain w/o Contrast Result Date: October 22, 2024 Verified By: RASHMI AGUIRRE DO CLINICAL STATEMENT: IMPRESSION: 1. No acute intracranial abnormality.2. Primarily confluent periventricular white matter FLAIR hyperintensities,right greater than left. This is nonspecific and may represent chronicmicrovascular ischemic changes. XR Enteric Tube Placement Result Date: October 21, 2024 Verified By: SANG KNUTSON DO CLINICAL STATEMENT: IMPRESSION: 1. Orogastric tube in functional position.2. No acute pulmonary disease. Assessment/Plan 1. Toxic metabolic encephalopathy 2. Cardiac arrest 3. Diastolic dysfunction with heart failure 4. Hyponatremia 5. Acute urinary retention 6. Hypertension 7. Hyperlipidemia 8. Type 2 diabetes mellitus 9. Altered mental status Orders: furosemide(Lasix), 20 mg= 2 mL, IV Push, q6hr potassium chloride(KCL bolus), 20 mEq= 100 mL, IV Piggyback, Once potassium chloride(KCL), 40 mEq= 2 tab(s), Oral, Once trimethobenzamide(Tigan), 200 mg= 2 mL, Intramuscular, q6h, PRN Complete Blood Count(CBC), 10/25/24 5:00:00 EDT, Timed Study (collect at specified time), Blood, [id number], for 14 day(s), Preferred Lab: [facility], Stop date 11/07/24 5:00:00 EDT Complete Metabolic Panel(CMP), 10/25/24 5:00:00 EDT, Timed Study (collect at specified time), Blood, [id number], for 14 day(s), Preferred Lab: [facility], Stop date 11/07/24 5:00:00 EDT Consult to Physician, 10/24/24 13:21:00 EDT, LILLY MCINTOSH MD, Routine, family request acute urinary retention Consult to Physician, 10/24/24 7:25:00 EDT, KUN ESPINAL MD, Routine, s/p cardiac arrest? wide qrs eval Echocardiogram Adult(Cardiac Echo Adult), 10/24/24 15:37:00 EDT, Routine, pulmonary edema recent cardiac arrest eval any changes, Physician to Read: [facility], Echo Contrast: Use if indicated and not contraindicated, Bed Nurse and Monitor, Full Code, 70.5 kg, [facility]... Electrocardiogram(EKG), 10/24/24 7:28:00 EDT, follow up ekg from patients cardiac arrest Ferritin, 10/25/24 5:00:00 EDT, Next AM Draw (one day only), Blood, Once, Preferred Lab: [facility], Stop date 10/25/24 5:00:00 EDT Iron Studies, 10/25/24 5:00:00 EDT, Next AM Draw (one day only), Blood, Once, Preferred Lab: [facility], Stop date 10/25/24 5:00:00 EDT Magnesium Level(MG Level), 10/25/24 5:00:00 EDT, Timed Study (collect at specified time), Blood, [id number], for 14 day(s), Preferred Lab: [facility], Stop date 11/07/24 5:00:00 EDT Transfer/Change in Level of Care, 10/24/24 7:24:00 EDT, Level of Care: Stepdown with monitor, Medication Review: I have assessed all medications, any tele floor. he had cardiac arrest needs cardiology eval Urinary Catheter Insertion/Care(Reilly Catheter Insertion/Care), 10/24/24 13:23:00 EDT, Do Not Remove Urinary Catheter, Obstruction/Retention, Cath Care: Daily, failed trial of void Vitamin B12 Level(B12 Level), 10/25/24 5:00:00 EDT, Next AM Draw (one day only), Blood, Once, Preferred Lab: [facility], Stop date 10/25/24 5:00:00 EDT I transferred patient from regular floor to stepdown level of care given he experienced cardiac arrest so that he can be evaluated by cardiology and they can evaluate current rhythm. Currently the patient has a mild to moderate heart failure with preserved ejection fraction exacerbation I think multifactorial related to cardiac arrest and IV fluid use to improve his hyponatremia. Currently without significant oxygen requirement. Will gently diuresis patient is not on Lasix at home. Aggressive repletion of electrolytes and daily lab monitoring as ordered. Echo was ordered. He did have 1 earlier this year but I thought given the cardiac arrest it may be valuable to have the study repeated. Family notes that they are familiar with Dr. Vides and if electrophysiology assessment is needed they request Dr. Vides to evaluate the patient. Experienced acute urinary retention this hospital stay requiring a Reilly catheter and then failed asubsequent trial of void. Reilly catheter placed again. Family was requesting urology evaluation. Urology consult placed. Underlying cause hyponatremia unclear. It did improve w/ IVF earlier in admit. Will try and addresscurrent volume issue then reassess sodium. I did discuss CODE STATUS with patient's healthcare power of commercial attorney. They do wish to continue full CODE STATUS at this time. Problem List/Past Medical History Ongoing Anxiety Aortic stenosis, moderate Atherosclerosis of aorta Benign non-nodular prostatic hyperplasia BMI 24.0-24.9, adult De Quervain's disease (tenosynovitis) Diastolic dysfunction with heart failure Glaucoma Hypercholesteremia Hypertension Hypertension associated with type 2 diabetes mellitus Iron deficiency anemia Medicare annual wellness visit, subsequent Microalbuminuria Mitral valve regurgitation Opacification of intraocular lens Pseudophakia Type 2 diabetes mellitus Type 2 diabetes mellitus with hyperlipidemia Type 2 diabetes with complication Historical DM (diabetes mellitus), type 2 Procedure/Surgical History No retinopathy of left eye due to diabetes mellitus: 07/04/20 No retinopathy of right eye due to diabetes mellitus: 07/04/20 Eye examination, DM: 03/07/20 Cholecystectomy Rotator cuff repair, L Medications Inpatient aspirin 81 mg oral delayed release tablet, 81 mg= 1 tab(s), Oral, qDay atorvastatin, 40 mg= 1 tab(s), Oral, qDay Dextrose 50% IV Push, 25 gram(s)= 50 mL, IV Push, AsDirected, PRN DuoNeb, 3 mL, Inhalation, q4hRT, PRN Flomax, 0.4 mg= 1 cap(s), Oral, qDay fluticasone 50 mcg/inh NASAL spray, 50 mcg= 1 spray(s), Nasal, qDay heparin 5000 units/mL injection, 5000 unit(s)= 1 mL, Subcutaneous, q8h HumaLOG 100 units/mL subcutaneous solution, Give 0-5 units/dose, Subcutaneous, TIDAC KCL, 40 mEq= 2 tab(s), Oral, Once KCL bolus, 20 mEq= 100 mL, IV Piggyback, Once Lasix, 20 mg= 2 mL, IV Push, q6hr latanoprost 0.005% ophthalmic solution, 1 drop(s), Eyes, both, qHS sertraline, 25 mg= 1 tab(s), Oral, qDay Tigan, 200 mg= 2 mL, Intramuscular, q6h, PRN Timoptic 0.5% ophthalmic solution, 1 drop(s), Eyes, both, BID Tylenol, 650 mg= 2 tab(s), Oral, q4h, PRN Home amLODIPine 5 mg oral tablet, 5 mg= 1 tab(s), Oral, BID, 3 refills aspirin 81 mg oral delayed release tablet, 81 mg= 1 tab(s), Oral, qDay, 3 refills atorvastatin 40 mg oral tablet, 40 mg= 1 tab(s), Oral, qDay, 3 refills Blood Glucose Test Strips, See Instructions, 3 refills fluticasone 50 mcg/inh NASAL spray, 50 mcg, Nasal, qDay, 2 refills Lancets, See Instructions, 5 refills latanoprost 0.005% ophthalmic solution, 1 drop(s), Eyes, both, qHS lisinopril 40 mg oral tablet, 40 mg= 1 tab(s), Oral, qDay, 3 refills MetFORMIN (Eqv-Glucophage XR) 500 mg oral tablet, EXTENDED RELEASE, 2000 mg= 4 tab(s), Oral, qDay, 3 refills Multivitamin, 1 tab(s), Oral, Daily pioglitazone 30 mg oral tablet, 30 mg= 1 tab(s), Oral, Daily, 3 refills sertraline 25 mg oral tablet, 25 mg= 1 tab(s), Oral, qDay Timolol Maleate (Eqv-Timoptic) 0.5% ophthalmic solution, 1 gtt(s), Eyes, both, BID Vitamin D3, 2000 unit(s)= 1 tab(s), Oral, Daily Allergies NKA Social History Smoking Status - 03/21/2015 Never smoker Alcohol Use: Current. Frequency: 1-2 times per year., 07/08/2024 Employment/School Status: Retired. 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 Appetite Good. Eating Difficulties None. Caffeine intake amount: 2 coffee daily., 10/08/2024 Substance Abuse Use: Never., 12/09/2018 Tobacco Nicotine Use: Never (less than 100 in lifetime)., 10/20/2024 Family History Diabetes: Daughter. Hyperlipidemia: Mother, Father and Brother. Hypertension: Mother. Malignant tumor of lung: Mother. Health Status Family Member(s) Immunizations pneumococcal 13-valent conjugate vaccine: 0 unknown unit (09/16/14) pneumococcal 23-valent vaccine(Pneumovax: 0 unknown unit (02/13/06) SARS-CoV-2 (COVID-19) mRNA-1273 vaccine: 0.25 unknown unit (08/03/21) SARS-CoV-2 (COVID-19) mRNA-1273 vaccine: 0.5 unknown unit (02/24/21) SARS-CoV-2 (COVID-19) mRNA-1273 vaccine: 100 mcg (06/22/20) SARS-CoV-2 (COVID-19) mRNA-1273 vaccine: 0 unknown unit (05/25/20) tetanus/diphtheria/pertussMUL.ORD![id number]: 0.5 unknown unit (08/03/21) tetanus/diphtheria/pertussMUL.ORD![id number]: 0 unknown unit (08/25/12) zoster vaccine, inactivated: 1 unknown unit (05/16/19) zoster vaccine, inactivated: 1 unknown unit (02/04/19) [1] Echocardiogram, Adult - CV; Rhina Harris B Business Transformation Consultant 05/18/2024 13:19 EST [2] Echocardiogram, Adult - CV; Tanesha Harrise B Business Transformation Consultant 05/18/2024 13:19 EST Digitally Signed by NATASHA TALAVERA MD on 10/24/2024 03:55 PM [id number] Note Date of Service 10/24/24 Reason for Consultation transfer out of ICU Referring Physician ICU History of Present Illness 83-year-old male with history of essential hypertension, luc-[id number] type 2 diabetes mellitus, dementia, hyperlipidemia presented to the hospital with altered mental status and recent fall with subsequent rib fracture. In the ER vitals normal. CBC hemoglobin 12.7, glucose 166, sodium 122,chloride 88, creatinine 0.57, BUN 11. High-sensitivity troponin normal. TSH normal. Opiates positive. Chest x-ray cardiomegaly with pulmonary vascular congestion and age and determinate right rib fractures. Patient was admitted to the hospitalist service for further evaluation of hyponatremia and confusion. Started on IV fluid with normal saline and sodium did gradually improve. The day following admission the patient did experience a cardiac arrest. Patient's nurse noted he was suddenly yelling out, tensed up turned blue became pulseless. 1 round of CPR was performed and ROSC achieved no medications needed. Admitted to the ICU. MRI brain performed due to altered mental status unremarkable. Transferred back to the floors with consults placed to urology for patient's acute urinary retention which required placement of Reilly catheter followed by subsequent failed trial of void and replacement of Reilly catheter. Also cardiology was consulted due to patient's cardiac arrest and widened QRS. While on the floors he was noted to have what cough with crackles bilaterally and imaging consistent with pulmonary edema started on Lasix IV 20 every 8 x 3 doses. An echo was ordered to follow-up oncardiac function in the setting of him being status post cardiac arrest. Physical Exam Vitals and Measurements T: 36.5 C (Oral) TMIN: 36.3 C (Oral) TMAX: 36.6 C (Oral) HR: 107 RR: 18 BP: 135/80 SpO2: 94% Weight Dosing Weight: 70.5 kg (10/20/24) Lab Results 10/24 13:25 WBC: 7.4 Hgb: 12.3 L Hct: 36.1 L Platelet: 234 Neutrophil %: 80.7 H Glucose Level: 185 H Sodium Level: 129 L Potassium Level: 3.5 BUN: 15.0 Creatinine Lvl (s): 0.51 L 10/23 06:11 WBC: 7.2 Hgb: 11.8 L Hct: 33.8 L Platelet: 183 Neutrophil %: 78.7 H Glucose Level: 127 H Sodium Level: 132 L Potassium Level: 3.6 BUN: 16.0 Creatinine Lvl (s): 0.57 L Imaging Results and Diagnostics XR Chest 1 View Result Date: October 24, 2024 Verified By: HUBER CORRAL DO CLINICAL STATEMENT: IMPRESSION: []Image findings compatible with congestive failure. Superimposing airspaceprocess considered. Correlate with clinical findings. CT Head or Brain w/o Contrast Result Date: October 23, 2024 Verified By: NÉSTOR SNYDER MD CLINICAL STATEMENT: IMPRESSION: No acute intracranial hemorrhage, mass effect or midline shift. I have personally reviewed the images of this examination and agree with theresident's findings and interpretation. MRI Brain w/o Contrast Result Date: October 22, 2024 Verified By: RASHMI AGUIRRE DO CLINICAL STATEMENT: IMPRESSION: 1. No acute intracranial abnormality.2. Primarily confluent periventricular white matter FLAIR hyperintensities,right greater than left. This is nonspecific and may represent chronicmicrovascular ischemic changes. XR Enteric Tube Placement Result Date: October 21, 2024 Verified By: SANG KNUTSON DO CLINICAL STATEMENT: IMPRESSION: 1. Orogastric tube in functional position.2. No acute pulmonary disease. Assessment/Plan 1. Toxic metabolic encephalopathy 2. Cardiac arrest 3. Diastolic dysfunction with heart failure 4. Hyponatremia 5. Acute urinary retention 6. Hypertension 7. Hyperlipidemia 8. Type 2 diabetes mellitus 9. Altered mental status Orders: furosemide(Lasix), 20 mg= 2 mL, IV Push, q6hr potassium chloride(KCL bolus), 20 mEq= 100 mL, IV Piggyback, Once potassium chloride(KCL), 40 mEq= 2 tab(s), Oral, Once trimethobenzamide(Tigan), 200 mg= 2 mL, Intramuscular, q6h, PRN Complete Blood Count(CBC), 10/25/24 5:00:00 EDT, Timed Study (collect at specified time), Blood, [id number], for 14 day(s), Preferred Lab: [facility], Stop date 11/07/24 5:00:00 EDT Complete Metabolic Panel(CMP), 10/25/24 5:00:00 EDT, Timed Study (collect at specified time), Blood, [id number], for 14 day(s), Preferred Lab: [facility], Stop date 11/07/24 5:00:00 EDT Consult to Physician, 10/24/24 13:21:00 EDT, LILLY MCINTOSH MD, Routine, family request acute urinary retention Consult to Physician, 10/24/24 7:25:00 EDT, KUN ESPINAL MD, Routine, s/p cardiac arrest? wide qrs eval Echocardiogram Adult(Cardiac Echo Adult), 10/24/24 15:37:00 EDT, Routine, pulmonary edema recent cardiac arrest eval any changes, Physician to Read: [facility], Echo Contrast: Use if indicated and not contraindicated, Bed Nurse and Monitor, Full Code, 70.5 kg, [facility] facility... Electrocardiogram(EKG), 10/24/24 7:28:00 EDT, follow up ekg from patients cardiac arrest Ferritin, 10/25/24 5:00:00 EDT, Next AM Draw (one day only), Blood, Once, Preferred Lab: [facility], Stop date 10/25/24 5:00:00 EDT Iron Studies, 10/25/24 5:00:00 EDT, Next AM Draw (one day only), Blood, Once, Preferred Lab: [facility], Stop date 10/25/24 5:00:00 EDT Magnesium Level(MG Level), 10/25/24 5:00:00 EDT, Timed Study (collect at specified time), Blood, [id number], for 14 day(s), Preferred Lab: [facility], Stop date 11/07/24 5:00:00 EDT Transfer/Change in Level of Care, 10/24/24 7:24:00 EDT, Level of Care: Stepdown with monitor, Medication Review: I have assessed all medications, any tele floor. he had cardiac arrest needs cardiology eval Urinary Catheter Insertion/Care(Reilly Catheter Insertion/Care), 10/24/24 13:23:00 EDT, Do Not Remove Urinary Catheter, Obstruction/Retention, Cath Care: Daily, failed trial of void Vitamin B12 Level(B12 Level), 10/25/24 5:00:00 EDT, Next AM Draw (one day only), Blood, Once, Preferred Lab: [facility], Stop date 10/25/24 5:00:00 EDT I transferred patient from regular floor to stepdown level of care given he experienced cardiac arrest so that he can be evaluated by cardiology and they can evaluate current rhythm. Currently the patient has a mild to moderate heart failure with preserved ejection fraction exacerbation I think multifactorial related to cardiac arrest and IV fluid use to improve his hyponatremia. Currently without significant oxygen requirement. Will gently diuresis patient is not on Lasix at home. Aggressive repletion of electrolytes and daily lab monitoring as ordered. Echo was ordered. He did have 1 earlier this year but I thought given the cardiac arrest it may be valuable to have the study repeated. Family notes that they are familiar with Dr. Vides and if electrophysiology assessment is needed they request Dr. Vides to evaluate the patient. Experienced acute urinary retention this hospital stay requiring a Reilly catheter and then failed asubsequent trial of void. Reilly catheter placed again. Family was requesting urology evaluation. Urology consult placed. Underlying cause hyponatremia unclear. It did improve w/ IVF earlier in admit. Will try and addresscurrent volume issue then reassess sodium. I did discuss CODE STATUS with patient's healthcare power of commercial attorney. They do wish to continue full CODE STATUS at this time. Problem List/Past Medical History Ongoing Anxiety Aortic stenosis, moderate Atherosclerosis of aorta Benign non-nodular prostatic hyperplasia BMI 24.0-24.9, adult De Quervain's disease (tenosynovitis) Diastolic dysfunction with heart failure Glaucoma Hypercholesteremia Hypertension Hypertension associated with type 2 diabetes mellitus Iron deficiency anemia Medicare annual wellness visit, subsequent Microalbuminuria Mitral valve regurgitation Opacification of intraocular lens Pseudophakia Type 2 diabetes mellitus Type 2 diabetes mellitus with hyperlipidemia Type 2 diabetes with complication Historical DM (diabetes mellitus), type 2 Procedure/Surgical History No retinopathy of left eye due to diabetes mellitus: 07/04/20 No retinopathy of right eye due to diabetes mellitus: 07/04/20 Eye examination, DM: 03/07/20 Cholecystectomy Rotator cuff repair, L Medications Inpatient aspirin 81 mg oral delayed release tablet, 81 mg= 1 tab(s), Oral, qDay atorvastatin, 40 mg= 1 tab(s), Oral, qDay Dextrose 50% IV Push, 25 gram(s)= 50 mL, IV Push, AsDirected, PRN DuoNeb, 3 mL, Inhalation, q4hRT, PRN Flomax, 0.4 mg= 1 cap(s), Oral, qDay fluticasone 50 mcg/inh NASAL spray, 50 mcg= 1 spray(s), Nasal, qDay heparin 5000 units/mL injection, 5000 unit(s)= 1 mL, Subcutaneous, q8h HumaLOG 100 units/mL subcutaneous solution, Give 0-5 units/dose, Subcutaneous, TIDAC KCL, 40 mEq= 2 tab(s), Oral, Once KCL bolus, 20 mEq= 100 mL, IV Piggyback, Once Lasix, 20 mg= 2 mL, IV Push, q6hr latanoprost 0.005% ophthalmic solution, 1 drop(s), Eyes, both, qHS sertraline, 25 mg= 1 tab(s), Oral, qDay Tigan, 200 mg= 2 mL, Intramuscular, q6h, PRN Timoptic 0.5% ophthalmic solution, 1 drop(s), Eyes, both, BID Tylenol, 650 mg= 2 tab(s), Oral, q4h, PRN Home amLODIPine 5 mg oral tablet, 5 mg= 1 tab(s), Oral, BID, 3 refills aspirin 81 mg oral delayed release tablet, 81 mg= 1 tab(s), Oral, qDay, 3 refills atorvastatin 40 mg oral tablet, 40 mg= 1 tab(s), Oral, qDay, 3 refills Blood Glucose Test Strips, See Instructions, 3 refills fluticasone 50 mcg/inh NASAL spray, 50 mcg, Nasal, qDay, 2 refills Lancets, See Instructions, 5 refills latanoprost 0.005% ophthalmic solution, 1 drop(s), Eyes, both, qHS lisinopril 40 mg oral tablet, 40 mg= 1 tab(s), Oral, qDay, 3 refills MetFORMIN (Eqv-Glucophage XR) 500 mg oral tablet, EXTENDED RELEASE, 2000 mg= 4 tab(s), Oral, qDay, 3 refills Multivitamin, 1 tab(s), Oral, Daily pioglitazone 30 mg oral tablet, 30 mg= 1 tab(s), Oral, Daily, 3 refills sertraline 25 mg oral tablet, 25 mg= 1 tab(s), Oral, qDay Timolol Maleate (Eqv-Timoptic) 0.5% ophthalmic solution, 1 gtt(s), Eyes, both, BID Vitamin D3, 2000 unit(s)= 1 tab(s), Oral, Daily Allergies NKA Social History Smoking Status - 03/21/2015 Never smoker Alcohol Use: Current. Frequency: 1-2 times per year., 07/08/2024 Employment/School Status: Retired. 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 Appetite Good. Eating Difficulties None. Caffeine intake amount: 2 coffee daily., 10/08/2024 Substance Abuse Use: Never., 12/09/2018 Tobacco Nicotine Use: Never (less than 100 in lifetime)., 10/20/2024 Family History Diabetes: Daughter. Hyperlipidemia: Mother, Father and Brother. Hypertension: Mother. Malignant tumor of lung: Mother. Health Status Family Member(s) Immunizations pneumococcal 13-valent conjugate vaccine: 0 unknown unit (09/16/14) pneumococcal 23-valent vaccine(Pneumovax: 0 unknown unit (02/13/06) SARS-CoV-2 (COVID-19) mRNA-1273 vaccine: 0.25 unknown unit (08/03/21) SARS-CoV-2 (COVID-19) mRNA-1273 vaccine: 0.5 unknown unit (02/24/21) SARS-CoV-2 (COVID-19) mRNA-1273 vaccine: 100 mcg (06/22/20) SARS-CoV-2 (COVID-19) mRNA-1273 vaccine: 0 unknown unit (05/25/20) tetanus/diphtheria/pertussMUL.ORD![id number]: 0.5 unknown unit (08/03/21) tetanus/diphtheria/pertussMUL.ORD![id number]: 0 unknown unit (08/25/12) zoster vaccine, inactivated: 1 unknown unit (05/16/19) zoster vaccine, inactivated: 1 unknown unit (02/04/19) [1] Echocardiogram, Adult - CV; Rhina Harris B Business Transformation Consultant 05/18/2024 13:19 EST [2] Echocardiogram, Adult - CV; Rhina Harris B Business Transformation Consultant 05/18/2024 13:19 EST Digitally Signed by NATASHA TALAVERA MD on 10/24/2024 03:55 PM [id number] Urology Consult note Date of Service 10/24/2024 Reason for Consultation Urinary retention Referring Physician Breanne History of Present Illness Mr. Adamson is an 83y/o M w/ HTN, HL, DM2, anxiety, mild dementia, recent fall w/ rib fx, presented on 10/20/2024 w/ AMS, found to be hyponatremic. Recently started sertraline and was taking 's oxycodone. Admitted and started on IVF for hyponatremia, became unresponsive on 10/21/2024 requiring 1 round of CPR. Was found to have 1L on bladder scan at that time for which he had a reilly catheter placed with return of 1650 mL. The reilly was removed yesterday (after 2 days) and he was unable to void. It was replaced early this morning. UA on admission was negative for nitrites, LE, and blood. UCx had 10,000 - 50,000 cfu/ml mixed growth consistent with normal UG dorinda. Cr is 0.51. There is no abdominopelvic imaging. He does not see a urologist or take any urinary medications at home but has a reported history of BPH. He does not recall every having required a reilly catheter in the past. Review of Systems Limited due to mental status Physical Exam Vitals and Measurements T: 36.5 C (Oral) TMIN: 36.3 C (Oral) TMAX: 36.6 C (Oral) HR: 107 RR: 18 BP: 135/80 SpO2: 94% Weight Dosing Weight: 70.5 kg (10/20/24) Elderly man sitting up in bed in NAD On O2 NC Abd soft, NT, ND, bladder non-palpable No CVAT Reilly w/ CYU SHIV deferred Lab Results 10/24 13:25 WBC: 7.4 Hgb: 12.3 L Hct: 36.1 L Platelet: 234 Neutrophil %: 80.7 H Glucose Level: 185 H Sodium Level: 129 L Potassium Level: 3.5 BUN: 15.0 Creatinine Lvl (s): 0.51 L 10/23 06:11 WBC: 7.2 Hgb: 11.8 L Hct: 33.8 L Platelet: 183 Neutrophil %: 78.7 H Glucose Level: 127 H Sodium Level: 132 L Potassium Level: 3.6 BUN: 16.0 Creatinine Lvl (s): 0.57 L Imaging Results and Diagnostics XR Chest 1 View Result Date: October 24, 2024 Verified By: HUBER CORRAL DO CLINICAL STATEMENT: IMPRESSION: []Image findings compatible with congestive failure. Superimposing airspaceprocess considered. Correlate with clinical findings. CT Head or Brain w/o Contrast Result Date: October 23, 2024 Verified By: NÉSTOR SNYDER MD CLINICAL STATEMENT: IMPRESSION: No acute intracranial hemorrhage, mass effect or midline shift. I have personally reviewed the images of this examination and agree with theresident's findings and interpretation. MRI Brain w/o Contrast Result Date: October 22, 2024 Verified By: RASHMI AGUIRRE DO CLINICAL STATEMENT: IMPRESSION: 1. No acute intracranial abnormality.2. Primarily confluent periventricular white matter FLAIR hyperintensities,right greater than left. This is nonspecific and may represent chronicmicrovascular ischemic changes. XR Enteric Tube Placement Result Date: October 21, 2024 Verified By: SANG KNUTSON DO CLINICAL STATEMENT: IMPRESSION: 1. Orogastric tube in functional position.2. No acute pulmonary disease. Assessment/Plan Acute urinary retention -- in the setting of known BPH, diabetes, and 2 new medications, one of which may have caused significant constipation. Highly suspect multifactorial retention. -- given high-volume retention, would not attempt another void trial during this hospitalization. Needs bladder rest for at least 1-2 weeks. -- can start Flomax if pt tolerates it / no hypotension Thank you for this consult. Will follow. Problem List/Past Medical History Ongoing Anxiety Aortic stenosis, moderate Atherosclerosis of aorta Benign non-nodular prostatic hyperplasia BMI 24.0-24.9, adult De Quervain's disease (tenosynovitis) Glaucoma Hypercholesteremia Hypertension Hypertension associated with type 2 diabetes mellitus Iron deficiency anemia Medicare annual wellness visit, subsequent Microalbuminuria Mitral valve regurgitation Opacification of intraocular lens Pseudophakia Type 2 diabetes mellitus Type 2 diabetes mellitus with hyperlipidemia Type 2 diabetes with complication Historical DM (diabetes mellitus), type 2 Procedure/Surgical History No retinopathy of left eye due to diabetes mellitus: 07/04/20 No retinopathy of right eye due to diabetes mellitus: 07/04/20 Eye examination, DM: 03/07/20 Cholecystectomy Rotator cuff repair, L Medications Inpatient amLODIPine, 5 mg= 2 tab(s), Oral, BID aspirin 81 mg oral delayed release tablet, 81 mg= 1 tab(s), Oral, qDay atorvastatin, 40 mg= 1 tab(s), Oral, qDay Dextrose 50% IV Push, 25 gram(s)= 50 mL, IV Push, AsDirected, PRN DuoNeb, 3 mL, Inhalation, q4hRT, PRN Flomax, 0.4 mg= 1 cap(s), Oral, qDay fluticasone 50 mcg/inh NASAL spray, 50 mcg= 1 spray(s), Nasal, qDay heparin 5000 units/mL injection, 5000 unit(s)= 1 mL, Subcutaneous, q8h HumaLOG 100 units/mL subcutaneous solution, Give 0-5 units/dose, Subcutaneous, TIDAC latanoprost 0.005% ophthalmic solution, 1 drop(s), Eyes, both, qHS sertraline, 25 mg= 1 tab(s), Oral, qDay Timoptic 0.5% ophthalmic solution, 1 drop(s), Eyes, both, BID Tylenol, 650 mg= 2 tab(s), Oral, q4h, PRN Zofran, 4 mg= 2 mL, IV Push, q4h, PRN Home amLODIPine 5 mg oral tablet, 5 mg= 1 tab(s), Oral, BID, 3 refills aspirin 81 mg oral delayed release tablet, 81 mg= 1 tab(s), Oral, qDay, 3 refills atorvastatin 40 mg oral tablet, 40 mg= 1 tab(s), Oral, qDay, 3 refills Blood Glucose Test Strips, See Instructions, 3 refills fluticasone 50 mcg/inh NASAL spray, 50 mcg, Nasal, qDay, 2 refills Lancets, See Instructions, 5 refills latanoprost 0.005% ophthalmic solution, 1 drop(s), Eyes, both, qHS lisinopril 40 mg oral tablet, 40 mg= 1 tab(s), Oral, qDay, 3 refills MetFORMIN (Eqv-Glucophage XR) 500 mg oral tablet, EXTENDED RELEASE, 2000 mg= 4 tab(s), Oral, qDay, 3 refills Multivitamin, 1 tab(s), Oral, Daily pioglitazone 30 mg oral tablet, 30 mg= 1 tab(s), Oral, Daily, 3 refills sertraline 25 mg oral tablet, 25 mg= 1 tab(s), Oral, qDay Timolol Maleate (Eqv-Timoptic) 0.5% ophthalmic solution, 1 gtt(s), Eyes, both, BID Vitamin D3, 2000 unit(s)= 1 tab(s), Oral, Daily Allergies NKA Social History Smoking Status - 03/21/2015 Never smoker Alcohol Use: Current. Frequency: 1-2 times per year., 07/08/2024 Employment/School Status: Retired. 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 Appetite Good. Eating Difficulties None. Caffeine intake amount: 2 coffee daily., 10/08/2024 Substance Abuse Use: Never., 12/09/2018 Tobacco Nicotine Use: Never (less than 100 in lifetime)., 10/20/2024 Family History Diabetes: Daughter. Hyperlipidemia: Mother, Father and Brother. Hypertension: Mother. Malignant tumor of lung: Mother. Health Status Family Member(s) Immunizations pneumococcal 13-valent conjugate vaccine: 0 unknown unit (09/16/14) pneumococcal 23-valent vaccine(Pneumovax: 0 unknown unit (02/13/06) SARS-CoV-2 (COVID-19) mRNA-1273 vaccine: 0.25 unknown unit (08/03/21) SARS-CoV-2 (COVID-19) mRNA-1273 vaccine: 0.5 unknown unit (02/24/21) SARS-CoV-2 (COVID-19) mRNA-1273 vaccine: 100 mcg (06/22/20) SARS-CoV-2 (COVID-19) mRNA-1273 vaccine: 0 unknown unit (05/25/20) tetanus/diphtheria/pertussMUL.ORD![id number]: 0.5 unknown unit (08/03/21) tetanus/diphtheria/pertussMUL.ORD![id number]: 0 unknown unit (08/25/12) zoster vaccine, inactivated: 1 unknown unit (05/16/19) zoster vaccine, inactivated: 1 unknown unit (02/04/19) Digitally Signed by LILLY MCINTOSH MD on 10/25/2024 03:43 PM [facility] [id number] Note* Exam Date Time Procedure Performing Provider Status 10/24/24 3:02 PM XR Chest 1 View HUBER CORRAL DO; A [facility] (Verified) [id number] ORIGINAL EXAMINATION: Exam Title:ONE XRAY VIEW OF THE CHEST Completed Time: 10/24/2024 3:02 pm Procedure Description:CHEST ONE VIEW AP/PA COMPARISON: October 21, 2024 chest x-ray HISTORY: ORDERING SYSTEM PROVIDED HISTORY: Reason for Exam: crackles bilaterally recent cardiac arrest FINDINGS: Mild cardiomegaly. [id number] pulmonary vascular congestion. Basilar atelectasis. No evidence for pneumothorax. Atherosclerotic disease. Degenerative change of the spine. IMPRESSION: [] Image findings compatible with congestive failure. Superimposing airspace process considered. Correlate with clinical findings. Interpreted by: Huber Corral DO Preliminary Report By: Huber Corral DO Electronically signed By Huber Corral DO Dictated Date: 10/24/2024 3:04:18 PM Prelim Date: 10/24/2024 3:04:51 PM Sign Date: 10/24/2024 3:04:51 PM Ordering Provider: NATASHA TALAVERA [facility] [id number] Note* Exam Date Time Procedure Performing Provider Status 10/24/24 7:50 AM Electrocardiogram - EKG - CV TAL MALIK MD; Auth (Verified) ECG Final Report RIGHT AND LEFT ARM ELECTRODE REVERSAL, INTERPRETATION ASSUMES NO REVERSAL SINUS RHYTHM PROBABLE LEFT ATRIAL ENLARGEMENT CONSIDER LEFT VENTRICULAR HYPERTROPHY PROBABLE LATERAL INFARCT, AGE INDETERMINATE BORDERLINE T ABNORMALITIES, LATERAL LEADS BORDERLINE PROLONGED QT INTERVAL Electronic Signature: TAL MALIK MD 10/25/2024 15:10:11 [facility] [id number] Note* Exam Date Time Procedure Performing Provider Status 10/23/24 8:[address] Head or Brain w/o Contrast NÉSTOR SNYDER MD; Auth (Verified) [id number] ORIGINAL EXAMINATION: CT OF THE HEAD WITHOUT CONTRAST 10/23/2024 8:29 pm TECHNIQUE: CT of the head was performed without the administration of intravenous contrast. Automated exposure control, iterative reconstruction, and/or weight based adjustment of the mA/kV was utilized to reduce the radiation dose to as low as reasonably achievable. COMPARISON: CT head 10/20/2024, MRI brain 10/22/2024 HISTORY: ORDERING SYSTEM PROVIDED HISTORY: Reason for Exam: AMS, CONFUSION, NO PREV NEURO HX, DOES BECOME AGITATED AT TIMES Delirium FINDINGS: BRAIN/VENTRICLES: There is no acute intracranial hemorrhage, mass effect or midline shift. No abnormal extra-axial fluid collection. The leon-white differentiation is maintained without evidence of an acute infarct. There is no evidence of hydrocephalus. The ventricles are enlarged with commensurate enlargement of the sulci consistent with parenchymal volume loss. Scattered white matter hypodensities are nonspecific but may represent moderate chronic microvascular angiopathy in a patient of this age. ORBITS: The visualized portion of the orbits demonstrate no acute abnormality. SINUSES: The visualized paranasal sinuses and mastoid air cells demonstrate no acute abnormality. SOFT TISSUES/SKULL: No acute abnormality of the visualized skull. IMPRESSION: No acute intracranial hemorrhage, mass effect or midline shift. I have personally reviewed the images of this examination and agree with the resident's findings and interpretation. Interpreted by: Néstor Snyder Preliminary Report By: Jeffrey Zuluaga Electronically signed By Néstor Snyder Dictated Date: 10/23/2024 8:31:59 PM Prelim Date: 10/23/2024 8:36:35 PM Sign Date: 10/23/2024 8:49:06 PM Ordering Provider: [id number] Note Date of Service 10/23/2024 Subjective 83-year-old male past medical history of hypertension, diabetes, mild dementia initially presented the ER for altered mental status over the weekend. They also report a recent fall with rib fracture.On the floor patient started normal saline 75 cc/h for hyponatremia. Patient was being evaluated byhis nurse when he turned blue lost his pulse. 1 round of CPR was performed. Then transferred to medical ICU. His mentation did slowly improve so he did not require endotracheal intubation. He was found to have a significantly distended bladder on palpation. Reilly catheter was placed with over 1.5 Lurine draining immediately. Over the past 24 hours no significant events. Patient's neurological status appears unchanged. Thismorning patient is sitting in chair awake and calm not in any distress. He is following all my commands. He is able to answer some of my questions appropriately but other times appears to be nonsensical Objective Vitals and Measurements T: 36.5 C (Oral) TMIN: 36.4 C (Oral) TMAX: 36.9 C (Oral) HR: 74 (Monitored) RR: 22 BP: 132/78 SpO2:93% Intake and Output 7AM Yesterday to 7AM Today Intake and Output (Last 24 hours) Intake Administration Information 773.00 Oral Intake 580.00 Output Urinary Catheter Output: 600.00 Stool Count 4.00 Total Summary Total Intake 1353.00 Total Output 600.00 Fluid Balance 753.00 Physical Exam General: AAOx1, no distress Oral cavity: Moist Oral Mucosa CVS: RRR, No murmur, Normal S1S2, no LL edema Respiratory: Equal bilateral breath sounds, no wheezing, no crackles, no accessory muscle use Abdomen: Non-tender, soft, not distended Ext: Warm to touch Neuro: No focal deficits moving all extremities equally, expressive aphasia Weight Dosing Weight: 70.5 kg (10/20/24) Medications Medications (16) Active Scheduled: (10) amLODIPine 2.5 mg tablet 5 mg 2 tab(s), Oral, BID aspirin 81 mg EC 81 mg 1 tab(s), Oral, qDay atorvastatin 40 mg tablet 40 mg 1 tab(s), Oral, qDay fluticasone nasal 0.05 mg/inh Nebo 50 mcg 1 spray(s), Nasal, qDay heparin 5,000 units/mL (1 mL) vial 5,000 unit(s) 1 mL, Subcutaneous, q8h latanoprost ophthalmic 0.005% Solution 1 drop(s), Eyes, both, qHS metformin 500 mg ER tablet 2,000 mg 4 tab(s), Oral, qDay sertraline 25 mg tablet 25 mg 1 tab(s), Oral, qDay tamsulosin 0.4 mg Capsule 0.4 mg 1 cap(s), Oral, qDay timolol ophthalmic 0.5% Solution 5 mL BTL 1 drop(s), Eyes, both, BID Continuous: (1) insulin regular 100 unit(s) + NS Premix Diluent 100 mL 100 mL, Intravenous PRN: (5) acetaminophen 325 mg Tablet 650 mg 2 tab(s), Oral, q4h albuterol - ipratropium 2.5 mg-0.5 mg/3 mL Inhal Bel UD 3 mL, Inhalation, q4hRT dextrose 50% Solution Disp syringe 50 mL 25 gram(s) 50 mL, IV Push, AsDirected insulin regular human recombinant 100 units/ml (10 mL) Solution sliding scale insulin, Subcutaneous, q4h ondansetron 2 mg/ 1 mL 2 mL INJ 4 mg 2 mL, IV Push, q4h Lab Results 10/23 06:11 WBC: 7.2 Hgb: 11.8 L Hct: 33.8 L Platelet: 183 Neutrophil %: 78.7 H Glucose Level: 127 H Sodium Level: 132 L Potassium Level: 3.6 BUN: 16.0 Creatinine Lvl (s): 0.57 L 10/22 02:34 WBC: 9.8 Hgb: 12.1 L Hct: 35.0 L Platelet: 202 Neutrophil %: 86.3 H Glucose Level: 135 H Sodium Level: 129 L Potassium Level: 3.4 L BUN: 14.0 Creatinine Lvl (s): 0.58 L EKG EKG - Completed -- 10/21/24 14:01:00 EDT EKG - Completed -- 10/22/24 6:00:00 EDT Assessment/Plan Anxiety Atherosclerosis of aorta Hyperlipidemia Hypertension Seasonal allergies Type 2 diabetes mellitus Assessment Cardiac arrest likely vasovagal in setting of urinary retention Possible expressive aphasia versus toxic metabolic encephalopathy Hyponatremia improving Chronic medical problems include hypertension, diabetes, mild dementia Plan Continue Flomax. Trial Reilly catheter out Sodium continues to appropriately uptrend. Monitor off IV fluid. Tolerating oral diet Thyroid function within normal limits. Normal B12. MRI without acute stroke. Chronic vascular changes. Possible vascular dementia leading to presentation. Neurology following for further evaluation. Continue aspirin atorvastatin Heparin subcu for DVT prophylaxis Okay to transfer out of ICU. Patient's daughters updated at the bedside Digitally Signed by SHYANNE GUTHRIE MD on 10/23/2024 12:23 PM [facility] [id number] Neurology Progress note Date of Service 10/23/24 Chief Complaint AMS Subjective Patient seen and examined. Nursing reports no acute events overnight or concerns presently. No concerns for seizures reported by staff. Pt is sitting in chair alert oriented to self, date and is following commands. Recognizes family who is present. Appears improved today but not back to baseline per daughter. No focal neuro findings on exam. No aphasia noted. Patient denies symptoms of vision disturbance, sensory loss, dizziness. Objective Vitals and Measurements T: 36.8 C (Oral) TMIN: 36.4 C (Oral) TMAX: 36.9 C (Oral) HR: 79 (Monitored) RR: 20 BP: 127/74 SpO2:93% Intake and Output 7AM Yesterday to 7AM Today Intake and Output (Last 24 hours) Intake Oral Intake 1060.00 Administration Information 773.00 Output Urinary Catheter Output: 450.00 Stool Count 4.00 Total Summary Total Intake 1833.00 Total Output 450.00 Fluid Balance 1383.00 Physical Exam Neurologic Exam Mental Status: Orientation: Oriented to person and BD only reported month september/at [facility] dept Language: Normal fluency, normal simple comprehension Speech: Non-dysarthric Cranial Nerves: Pupils: 3mm -> 2mm bilaterally Visual Small: full to confrontation bilaterally CN III, IV, : EOMI. No nystagmus CN V: Intact sensation to light touch and temp CN VII: face symmetric at rest. Facial muscle strength intact CN VIII: auditory acuity intact to bedside testing Sensation: Light touch: intact in all 4 extremities Motor: Involuntary movements: none Strength: LUE: 5/5 proximally, 5/5 distally RUE: 5/5 proximally, 5/5 distally LLE: 5/5 proximally, 5/5 distally RLE: 5/5 proximally, 5/5 distally Coordination: [id number] movements: No ataxia present Reflexes: R: L B 1 1 BR 1 1 P 1 1 Toes touch down Weight Dosing Weight: 70.5 kg (10/20/24) Medications Medications (16) Active Scheduled: (10) amLODIPine 2.5 mg tablet 5 mg 2 tab(s), Oral, BID aspirin 81 mg EC 81 mg 1 tab(s), Oral, qDay atorvastatin 40 mg tablet 40 mg 1 tab(s), Oral, qDay fluticasone nasal 0.05 mg/inh Nebo 50 mcg 1 spray(s), Nasal, qDay heparin 5,000 units/mL (1 mL) vial 5,000 unit(s) 1 mL, Subcutaneous, q8h latanoprost ophthalmic 0.005% Solution 1 drop(s), Eyes, both, qHS metformin 500 mg ER tablet 2,000 mg 4 tab(s), Oral, qDay sertraline 25 mg tablet 25 mg 1 tab(s), Oral, qDay tamsulosin 0.4 mg Capsule 0.4 mg 1 cap(s), Oral, qDay timolol ophthalmic 0.5% Solution 5 mL BTL 1 drop(s), Eyes, both, BID Continuous: (1) insulin regular 100 unit(s) + NS Premix Diluent 100 mL 100 mL, Intravenous PRN: (5) acetaminophen 325 mg Tablet 650 mg 2 tab(s), Oral, q4h albuterol - ipratropium 2.5 mg-0.5 mg/3 mL Inhal Bel UD 3 mL, Inhalation, q4hRT dextrose 50% Solution Disp syringe 50 mL 25 gram(s) 50 mL, IV Push, AsDirected insulin regular human recombinant 100 units/ml (10 mL) Solution sliding scale insulin, Subcutaneous, q4h ondansetron 2 mg/ 1 mL 2 mL INJ 4 mg 2 mL, IV Push, q4h Lab Results 10/23 06:11 WBC: 7.2 Hgb: 11.8 L Hct: 33.8 L Platelet: 183 Neutrophil %: 78.7 H Glucose Level: 127 H Sodium Level: 132 L Potassium Level: 3.6 BUN: 16.0 Creatinine Lvl (s): 0.57 L 10/22 02:34 WBC: 9.8 Hgb: 12.1 L Hct: 35.0 L Platelet: 202 Neutrophil %: 86.3 H Glucose Level: 135 H Sodium Level: 129 L Potassium Level: 3.4 L BUN: 14.0 Creatinine Lvl (s): 0.58 L Imaging Results and Diagnostics MRI Brain w/o Contrast Result Date: October 22, 2024 Verified By: RASHMI AGUIRRE DO CLINICAL STATEMENT: IMPRESSION: 1. No acute intracranial abnormality.2. Primarily confluent periventricular white matter FLAIR hyperintensities,right greater than left. This is nonspecific and may represent chronicmicrovascular ischemic changes. XR Enteric Tube Placement Result Date: October 21, 2024 Verified By: SANG KNUTSON DO CLINICAL STATEMENT: IMPRESSION: 1. Orogastric tube in functional position.2. No acute pulmonary disease. Assessment/Plan IMPRESSION Acute encephalopathy Cardiac arrest, achieved ROSC s/p 1 round of CPR Hyponatremia Pt is a 83-year-old male with PMH of DM, HTN, anxiety, neurocognitive dysfunction who presented with AMS. At baseline patient is able communicate and have a conversation, Ax3 per daughter and able tocomplete ADLs and care for his who has dementia. He recently had a rib fracture after which his mental status has changed. On 10/21 there was a concern for CODE BLUE and the event was described as the pt was talking to his family when he suddenly tensed up and then became unresponsive. He received 1 round of CPR and ROSC was achieved. There was suspicion for vasovagal activity. Labs showed severe hyponatremia. He was transferred to ICU for further workup. Reported that he recently was started on sertraline in the setting of anxiety and given patient's pain reports of taking pt's 's pain medication. There were concerns for receptive aphasia, MRI showed no acute findings noted moderate atrophy and MRI of brain showed no acute brain injury secondary to cardiac arrest. AMS multifactorial likely acute encephalopathy in the setting of metabolic derangement/pain medication SE/delirium in setting of reduced cognitive reserve. No concerns for seizures reported by staff and aphasia has resolved. No further testing needed at this time. PLAN: -MRI of brain reviewed no acute findings noted moderate atrophy and MRI of brain showed no acute brain injury. -CT head showed no acute intracranial abnormality. -Labs reviewed today. LFTs WNL. Sodium level 132 from 122. B12 low normal 255. TSH 2.130. UDS positive for opiate. Urinalysis negative. Will defer management of sodium to primary team. -Will add B12 replacement PO 500mg Qday. -From neuro standpoint ASA can be discontinued. -Avoid rapid correction of hyponatremia. Zoloft/SSRIs should be avoided as can unfortunately reducesodium levels in the blood. Would recommend that patient follow up with psychiatry/PCP outpatient for management of his anxiety. -Discussed plan with daughter and son at bedside answered questions Patient is at risk for delirium due to critical illness, age, duration of hospitalization Implement evidence based delirium precautions including: frequent re-orienting patient, not questioning patient avoiding anti-cholinergic medications and sedatives avoiding waking patient up at night for vital signs unless absolute indication out of bed to chair as much as possible during day if no medical contraindications bright lights during day, dim lights at night NO TV He should follow-up with [facility] in 4 6 weeks. Daughter reported he is not formally diagnosed with dementia. Would recommend that he follow-up with [facility] for neurocognitive testing. -Pt counseled not to drive will need clearance from outpatient neurologist prior to driving. -GI/DVT prophylaxis -PT/OT per recommendations -Fall precautions -Further medical management per medical team -Case discussed with [employer] -Patient counseled the risks and health hazards of smoking, excessive alcohol intake, marijuana/cocaine/drug abuse and patient counseled not to smoke cigarettes, drink excessive alcohol as well as not to smoke marijuana. Patient understands the same. Discussed plan with collaborating physician who agrees with plan Independently spent 50 minutes with patient Will sign off. Please call with questions if any. Thank you for allowing us to participate in patients care and management. All questions were answered Digitally Signed by SHANAE AVILA on 10/23/2024 12:52 PM Digitally Signed by SHANAE AVILA on 10/23/2024 12:53 PM [id number] Note* Exam Date Time Procedure Performing Provider Status 10/22/24 5:27 PM MRI Brain w/o Contrast RASHMI AGUIRRE DO; Auth (Verified) [id number] ORIGINAL EXAMINATION: MRI OF THE BRAIN WITHOUT CONTRAST 10/22/2024 5:34 pm TECHNIQUE: Multiplanar multisequence MRI of the brain was performed without the administration of intravenous contrast. COMPARISON: None. HISTORY: ORDERING SYSTEM PROVIDED HISTORY: Reason for Exam: Mental status change, unknown cause FINDINGS: Images are degraded by patient motion artifact. INTRACRANIAL STRUCTURES/VENTRICLES: There is no acute infarct. No mass effect or midline shift. No evidence of an acute intracranial hemorrhage. Primarily confluent periventricular white matter FLAIR hyperintensities, right greater than left. Mild generalized volume loss is appreciated with associated prominence of the sulci and ventricles. The sellar/suprasellar regions appear unremarkable. The normal signal voids within the major intracranial vessels appear maintained. ORBITS: The visualized portion of the orbits demonstrate no acute abnormality. SINUSES: Minimal paranasal mucosal thickening. Trace left mastoid effusion. BONES/SOFT TISSUES: The bone marrow signal intensity appears normal. The soft tissues demonstrate no acute abnormality. IMPRESSION: 1. No acute intracranial abnormality. 2. Primarily confluent periventricular white matter FLAIR hyperintensities, right greater than left. This is nonspecific and may represent chronic microvascular ischemic changes. Interpreted by: Rashmi Aguirre Preliminary Report By: Rashmi Aguirre Electronically signed By Rashmi Aguirre Dictated Date: 10/22/2024 5:37:07 PM Prelim Date: 10/22/2024 5:41:11 PM Sign Date: 10/22/2024 5:41:11 PM Ordering Provider: MO OLGUIN [facility] [id number] Pastoral care Progress note Pastoral Care Note Entered On: 10/22/2024 14:05 EDT Performed On: 10/22/2024 11:00 EDT by Joe Martin [facility] Type of Pastoral Visit : Initial visit Spiritual Care Visit Initiated by : Consult/Referral Spiritual Care Reason for Visit : General Pastoral Care Referral From : Nurse, Family Spiritual Assessment : Faithful, Grateful/Thankful Spiritual Care Emotional Assessment : Accepting of Situation Spiritual Care Intervention : Active listening, Words of Encouragement, Facilitate Life Review, Supportive presence, Conversation Spiritual Outcomes : Spiritual Resources Stirred, Expresses Zita Spiritual Plan of Care : Visit as Requested Pastoral Care Comments : Supported the patient and two of his three daughters in his room. Used active listening, zita and life review. Talked directly to the patient with his daughters joining in. I offered to be part of his care team and they thanked me for coming by. Number Present During Pastoral Visit : 2 Pastoral Care Visit Length : 15 minute(s) Joe Martin - 10/22/2024 14:00 EDT Digitally Signed by Joe Martin on 10/22/2024 02:00 PM [facility] [id number] Neurology Consult note Date of Service 10/22/2024 Reason for Consultation Stroke History of Present Illness 83-year-old male with past medical history of diabetes, hypertension, anxiety, neurocognitive dysfunction who presented with altered mental status. At baseline patient is able communicate and have a conversation. He recently had a rib fracture after which his mental status has changed. Yesterday there was a concern for CODE BLUE and the event was described as the patient was talking to his family when he suddenly tensed up and then became unresponsive. He received 1 round of CPR and ROSC was achieved. There was suspicion for vasovagal activity. He did not have any evidence of unstable vitals his labs have shown hyperglycemia and severe hyponatremia. He was transferred to ICU for further workup Review of Systems Could not be obtained due to patient condition Physical Exam Vitals and Measurements T: 36.6 C (Oral) TMIN: 36.1 C (Axillary) TMAX: 37.1 C (Oral) HR: 82 (Monitored) RR: 21 BP: 112/69 SpO2: 93% Weight Dosing Weight: 70.5 kg (10/20/24) General Examination: conscious, alert, oriented, AoA x1 HEENT: normocephalic, pupils BERL Heart: normal S1 S2 Lungs: Bilateral air entry present Abdomen: bowel sounds present Psychiatry: Denies Anxiety, depression or suicidal ideations at present Neuro: Conscious, alert, oriented AoA x1, receptive CN II-XII normal, no Nystagmus, EOMI, pupils BERL, No facial sensory loss, no facial asymmetry, tongue protrudes in midline, no uvula deviation, normal shoulder shrug, Power 5/5 B/L UE and LE, tone normal all 4 extremities, No tremors, No pronatordrift, Reflexes + B/S/T/K/A, Plantars B/L flexor, No cerebellar signs, Romberg s deferred, No sensory loss to light touch/temperature, normal joint/position/vibration sense, gait deferred, No frontalrelease signs. No involuntary movements, No NR, No Kernig s sign, No Brudzinski s sign Lab Results Labs from this AM reviewed 10/22 02:34 WBC: 9.8 Hgb: 12.1 L Hct: 35.0 L Platelet: 202 Neutrophil %: 86.3 H Glucose Level: 135 H Sodium Level: 129 L Potassium Level: 3.4 L BUN: 14.0 Creatinine Lvl (s): 0.58 L 10/21 14:28 WBC: 12.8 H Hgb: 13.5 Hct: 39.5 L Platelet: 262 Neutrophil %: 88.8 H Glucose Level: 182 H Sodium Level: 126 L Potassium Level: 3.9 BUN: 18.0 Creatinine Lvl (s): 0.79 10/21 08:14 WBC: 11.9 H Hgb: 13.6 Hct: 39.8 L Platelet: 252 Neutrophil %: 88.4 H Glucose Level: 145 H Sodium Level: 127 L Potassium Level: 3.6 BUN: 13.0 Creatinine Lvl (s): 0.64 Imaging Results and Diagnostics The following imaging reports were reviewed: Images of the CT head were personally reviewed - no definite acute process was appreciated, only chronic changes were apparent. Assessment/Plan # Rule out stroke # Acute encephalopathy Patient with concerns of receptive aphasia, awaiting MRI to rule out a stroke. Low suspicion for any acute brain injury secondary to cardiac arrest. Patient has acute encephalopathy in the setting of metabolic derangement. Avoid rapid correction ofhyponatremia Continue aspirin and statin TTE awaited He should follow-up with [facility] in 4 6 weeks. General guidelines for long-term vascular risk factor modification in the setting of a stroke: SBP goal: < 140 as tolerated, goal LDL < 70, HbA1c: < 7 Probable stroke etiology/risk factors and long-term prevention were discussed. Common and serious side effects of preventative medications were discussed, including risks of bleeding with antiplatelet agents, and risks of myalgias with statins. High risk acute neurologic condition due to high chance of recurrent stroke/TIA without intervention. Multiple other comorbidities present as well, including HTN. Problem List/Past Medical History Ongoing Anxiety Aortic stenosis, moderate Atherosclerosis of aorta Benign non-nodular prostatic hyperplasia BMI 24.0-24.9, adult De Quervain's disease (tenosynovitis) Glaucoma Hypercholesteremia Hypertension Hypertension associated with type 2 diabetes mellitus Iron deficiency anemia Medicare annual wellness visit, subsequent Microalbuminuria Mitral valve regurgitation Opacification of intraocular lens Pseudophakia Type 2 diabetes mellitus Type 2 diabetes mellitus with hyperlipidemia Type 2 diabetes with complication Historical DM (diabetes mellitus), type 2 Procedure/Surgical History No retinopathy of left eye due to diabetes mellitus: 07/04/20 No retinopathy of right eye due to diabetes mellitus: 07/04/20 Eye examination, DM: 03/07/20 Cholecystectomy Rotator cuff repair, L Medications Inpatient amLODIPine, 5 mg= 2 tab(s), Oral, BID aspirin 81 mg oral delayed release tablet, 81 mg= 1 tab(s), Oral, qDay atorvastatin, 40 mg= 1 tab(s), Oral, qDay Dextrose 50% IV Push, 25 gram(s)= 50 mL, IV Push, AsDirected, PRN DuoNeb, 3 mL, Inhalation, q4hRT, PRN Flomax, 0.4 mg= 1 cap(s), Oral, qDay fluticasone 50 mcg/inh NASAL spray, 50 mcg= 1 spray(s), Nasal, qDay heparin 5000 units/mL injection, 5000 unit(s)= 1 mL, Subcutaneous, q8h HumuLIN R, sliding scale insulin, Subcutaneous, q4h, PRN Insulin Regular for IV 100 unit(s) + NS Premix Diluent 100 mL latanoprost 0.005% ophthalmic solution, 1 drop(s), Eyes, both, qHS MetFORMIN (Eqv-Glucophage XR), 2000 mg= 4 tab(s), Oral, qDay PHARMACY TO DOSE, 1 EA, Miscellaneous, Daily sertraline, 25 mg= 1 tab(s), Oral, qDay Timoptic 0.5% ophthalmic solution, 1 drop(s), Eyes, both, BID Tylenol, 650 mg= 2 tab(s), Oral, q4h, PRN Zofran, 4 mg= 2 mL, IV Push, q4h, PRN Home amLODIPine 5 mg oral tablet, 5 mg= 1 tab(s), Oral, BID, 3 refills aspirin 81 mg oral delayed release tablet, 81 mg= 1 tab(s), Oral, qDay, 3 refills atorvastatin 40 mg oral tablet, 40 mg= 1 tab(s), Oral, qDay, 3 refills Blood Glucose Test Strips, See Instructions, 3 refills fluticasone 50 mcg/inh NASAL spray, 50 mcg, Nasal, qDay, 2 refills Lancets, See Instructions, 5 refills latanoprost 0.005% ophthalmic solution, 1 drop(s), Eyes, both, qHS lisinopril 40 mg oral tablet, 40 mg= 1 tab(s), Oral, qDay, 3 refills MetFORMIN (Eqv-Glucophage XR) 500 mg oral tablet, EXTENDED RELEASE, 2000 mg= 4 tab(s), Oral, qDay, 3 refills Multivitamin, 1 tab(s), Oral, Daily pioglitazone 30 mg oral tablet, 30 mg= 1 tab(s), Oral, Daily, 3 refills sertraline 25 mg oral tablet, 25 mg= 1 tab(s), Oral, qDay Timolol Maleate (Eqv-Timoptic) 0.5% ophthalmic solution, 1 gtt(s), Eyes, both, BID Vitamin D3, 2000 unit(s)= 1 tab(s), Oral, Daily Allergies NKA Social History Smoking Status - 03/21/2015 Never smoker Alcohol Use: Current. Frequency: 1-2 times per year., 07/08/2024 Employment/School Status: Retired. 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 Appetite Good. Eating Difficulties None. Caffeine intake amount: 2 coffee daily., 10/08/2024 Substance Abuse Use: Never., 12/09/2018 Tobacco Nicotine Use: Never (less than 100 in lifetime)., 10/20/2024 Family History Diabetes: Daughter. Hyperlipidemia: Mother, Father and Brother. Hypertension: Mother. Malignant tumor of lung: Mother. Health Status Family Member(s) Immunizations pneumococcal 13-valent conjugate vaccine: 0 unknown unit (09/16/14) pneumococcal 23-valent vaccine(Pneumovax: 0 unknown unit (02/13/06) SARS-CoV-2 (COVID-19) mRNA-1273 vaccine: 0.25 unknown unit (08/03/21) SARS-CoV-2 (COVID-19) mRNA-1273 vaccine: 0.5 unknown unit (02/24/21) SARS-CoV-2 (COVID-19) mRNA-1273 vaccine: 100 mcg (06/22/20) SARS-CoV-2 (COVID-19) mRNA-1273 vaccine: 0 unknown unit (05/25/20) tetanus/diphth/pertuss (Tdap) adult/adol: 0.5 unknown unit (08/03/21) tetanus/diphth/pertuss (Tdap) adult/adol: 0 unknown unit (08/25/12) zoster vaccine, inactivated: 1 unknown unit (05/16/19) zoster vaccine, inactivated: 1 unknown unit (02/04/19) Digitally Signed by WALTER CUEVAS MD on 10/22/2024 12:31 PM [facility] [id number] History and physical note Date of Service 10/21/2024 History of Present Illness This is a 83-year-old male with a past medical history consistent with T2DM, hypertension, anxiety,mild dementia presented to the ED on 10/20/2024 with chief complaint of altered mental status. Per reports from family patient has become more confused over the last week, reports of a fall and subsequent rib fracture. Given reports of confusion brought to the ED in [place] for further evaluation. Patient with no medications, recently started on sertraline in the setting of anxiety and given patient's pain reports of taking patient's 's pain medication. On the floor, patient was started on IVF with NS at 75 mL/h for his hyponatremia. At 1401 on 10/21/2024, a CODE BLUE was called on this patient. His nurse who was at bedside witnessed patient started to yell out, tensed up, turned blue and became pulseless. After 1 round of CPR, his ROSC was achieved. No medications were needed during the code. Anesthesiology at bedside did not think patient would need intubation since he was able to have a cough, gag reflex and have a respiratory drive. Patient was subsequently transferred to MICU for further evaluation and management. Patient was more alert and oriented during our encounter and had no complaints at this point. Physical Exam Vitals and Measurements T: 36.1 C (Axillary) TMIN: 36.1 C (Axillary) TMAX: 36.8 C (Oral) HR: 97 (Monitored) RR: 27 BP: 146/93 SpO2: 97% HT: 170.2 cm WT: 70.5 kg BMI: 24.34 Weight Dosing Weight: 70.5 kg (10/20/24) General: No apparent distress. Alert and oriented x 2 (himself and location). HEENT: NCAT EOMI Neck: Supple. No appreciable elevation in JVP. Cardiovascular: S1 S2 normal. No extra-audible heart tones. Respiratory: Bilaterally clear breath sounds with no crepitation or wheeze. Abdominal: Soft, nontender and nonrigid. Bowel sounds present. Distended bladder palpated on exam. Extremities: No edema. Adequate peripheral circulation. Neurological: Grossly intact without focal deficit. Cerebellar function preserved. Skin: Intact. Dry. No rash. Lab Results 10/21 08:14 WBC: 11.9 H Hgb: 13.6 Hct: 39.8 L Platelet: 252 Neutrophil %: 88.4 H Glucose Level: 145 H Sodium Level: 127 L Potassium Level: 3.6 BUN: 13.0 Creatinine Lvl (s): 0.64 10/20 23:03 WBC: 10.1 Hgb: 13.1 Hct: 38.7 L Platelet: 235 Neutrophil %: 89.0 H Glucose Level: 151 H Sodium Level: 127 L Potassium Level: 3.6 BUN: 10.0 Creatinine Lvl (s): 0.52 L Imaging Results and Diagnostics XR Enteric Tube Placement Result Date: October 21, 2024 Verified By: SANG KNUTSON DO CLINICAL STATEMENT: IMPRESSION: 1. Orogastric tube in functional position.2. No acute pulmonary disease. Assessment/Plan Cardiac arrest, achieved ROSC s/p 1 round of CPR Hyponatremia - improving Metabolic encephalopathy Urinary retention Past medical history: diabetes type 2, dementia, hypertension, intentional use of spouse medicationespecially oxycodone, rib fractures Plan Patient is an 83-year-old male initially admitted to the floor on 10/20/2024 for hyponatremia. At 1401 on 10/21/2024, a CODE BLUE was called on this patient. His nurse who was at bedside witnessed patient started to yell out, tensed up, turned blue and became pulseless. After 1 round of CPR, his ROSC was achieved. No medications were needed during the code. Anesthesiology at bedside did not think patient would need intubation since he was able to have a cough, gag reflex and have a respiratory drive. Patient was subsequently transferred to MICU for further evaluation and management. Will check a CBC, CMP, troponin, EKG to further look for etiologies of his cardiac arrest. Given distended bladder was palpated on exam, a bladder scan was done which showed patient was retaining greater than 1 L of urine. Reilly catheter was inserted. At this point, it could be a vagal reaction caused by patient straining to urinate, which caused him to become unresponsive and pulseless. Will start Flomax to help with this urinary retention. Regarding hyponatremia, will continue IVF with NS at 75 mL/h as his sodium has been trending appropriately. Case discussed with attending Dr. Guthrie, please see addendum for any changes. Problem List/Past Medical History Ongoing Anxiety Aortic stenosis, moderate Atherosclerosis of aorta Benign non-nodular prostatic hyperplasia BMI 24.0-24.9, adult De Quervain's disease (tenosynovitis) Glaucoma Hypercholesteremia Hypertension Hypertension associated with type 2 diabetes mellitus Iron deficiency anemia Medicare annual wellness visit, subsequent Microalbuminuria Mitral valve regurgitation Opacification of intraocular lens Pseudophakia Type 2 diabetes mellitus Type 2 diabetes mellitus with hyperlipidemia Type 2 diabetes with complication Historical DM (diabetes mellitus), type 2 Procedure/Surgical History No retinopathy of left eye due to diabetes mellitus: 07/04/20 No retinopathy of right eye due to diabetes mellitus: 07/04/20 Eye examination, DM: 03/07/20 Cholecystectomy Rotator cuff repair, L Medications Home Medications (14) Active amLODIPine 5 mg oral tablet 5 mg = 1 tab(s), Oral, BID aspirin 81 mg oral delayed release tablet 81 mg = 1 tab(s), Oral, qDay atorvastatin 40 mg oral tablet 40 mg = 1 tab(s), Oral, qDay Blood Glucose Test Strips See Instructions fluticasone 50 mcg/inh NASAL spray 50 mcg, Nasal, qDay Lancets See Instructions latanoprost 0.005% ophthalmic solution 1 drop(s), Eyes, both, qHS lisinopril 40 mg oral tablet 40 mg = 1 tab(s), Oral, qDay MetFORMIN (Eqv-Glucophage XR) 500 mg oral tablet, EXTENDED RELEASE 2,000 mg = 4 tab(s), Oral, qDay Multivitamin 1 tab(s), Oral, Daily pioglitazone 30 mg oral tablet 30 mg = 1 tab(s), Oral, Daily sertraline 25 mg oral tablet 25 mg = 1 tab(s), Oral, qDay Timolol Maleate (Eqv-Timoptic) 0.5% ophthalmic solution 1 gtt(s), Eyes, both, BID Vitamin D3 2,000 unit(s) = 1 tab(s), Oral, Daily Allergies NKA Social History Smoking Status - 03/21/2015 Never smoker Alcohol Use: Current. Frequency: 1-2 times per year., 07/08/2024 Employment/School Status: Retired. 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 Appetite Good. Eating Difficulties None. Caffeine intake amount: 2 coffee daily., 10/08/2024 Substance Abuse Use: Never., 12/09/2018 Tobacco Nicotine Use: Never (less than 100 in lifetime)., 10/20/2024 Family History Diabetes: Daughter. Hyperlipidemia: Mother, Father and Brother. Hypertension: Mother. Malignant tumor of lung: Mother. Health Status Family Member(s) Immunizations pneumococcal 13-valent conjugate vaccine: 0 unknown unit (09/16/14) pneumococcal 23-valent vaccine(Pneumovax: 0 unknown unit (02/13/06) SARS-CoV-2 (COVID-19) mRNA-1273 vaccine: 0.25 unknown unit (08/03/21) SARS-CoV-2 (COVID-19) mRNA-1273 vaccine: 0.5 unknown unit (02/24/21) SARS-CoV-2 (COVID-19) mRNA-1273 vaccine: 100 mcg (06/22/20) SARS-CoV-2 (COVID-19) mRNA-1273 vaccine: 0 unknown unit (05/25/20) tetanus/diphth/pertuss (Tdap) adult/adol: 0.5 unknown unit (08/03/21) tetanus/diphth/pertuss (Tdap) adult/adol: 0 unknown unit (08/25/12) zoster vaccine, inactivated: 1 unknown unit (05/16/19) zoster vaccine, inactivated: 1 unknown unit (02/04/19) Code Status Code Status - Ordered -- 10/20/24 22:35:00 EDT, Full Code, Constant Order Digitally Signed by LUIS SAMUELS DO on 10/21/2024 05:09 PM [facility] [id number] Note. MICRO - Microbiology PROCEDURE: Urine Culture [*1] SOURCE: Urine, Clean Catch BODY SITE: COLLECTED DATE/TIME: 10/20/2024 13:56 EDT RECEIVED DATE/TIME: 10/20/2024 21:32 EDT START DATE/TIME: 10/20/2024 21:32 EDT FREE TEXT SOURCE: FINAL REPORTS Final Report [] Verified Date/Time/Personnel: 10/22/2024 07:46 EDT 10,000 - 50,000 cfu/ml Mixed growth consistent with normal urogenital dorinda. PRELIMINARY REPORTS Preliminary Report [] Verified Date/Time/Personnel: 10/21/2024 11:00 EDT No growth to date Preliminary Report [] Verified Date/Time/Personnel: 10/20/2024 22:59 EDT Specimen received in lab. Performing Locations *1: This test was performed at: [facility], [address] [place] [address], [facility]- , [id number] Note* Exam Date Time Procedure Performing Provider Status 10/21/24 3:26 PM Electrocardiogram - EKG - CV VALERIE CAREY MD; Auth (Verified) ECG Final Report Sinus rhythm Probable left atrial enlargement Left bundle branch block Electronic Signature: BRIGITTE CAREY MD 10/22/2024 22:44:36 [facility] [id number] Note* Exam Date Time Procedure Performing Provider Status 10/21/24 3:12 PM XR Enteric Tube Placement MAR KNUTSON DO; Auth (Verified) [id number] ORIGINAL EXAMINATION: ONE SUPINE XRAY VIEW(S) OF THE ABDOMEN 10/21/2024 3:12 pm COMPARISON: None. HISTORY: ORDERING SYSTEM PROVIDED HISTORY: Reason for Exam: Chest Pain, NG PLACEMENT FINDINGS: Orogastric tube traverses the esophagus. Proximal distal port project in the stomach body which is appropriate. Heart is top-normal in size with left ventricular configuration. There is no acute alveolar, interstitial or pleural process. Skeletal elements remain intact. IMPRESSION: 1. Orogastric tube in functional position. 2. No acute pulmonary disease. Interpreted by: Sang Knutson DO Preliminary Report By: Sang Knutson DO Electronically signed By Sang Knutson DO Dictated Date: 10/21/2024 3:45:08 PM Prelim Date: 10/21/2024 3:45:47 PM Sign Date: 10/21/2024 3:45:47 PM Ordering Provider: LUIS SAMUELS [facility] [id number] History and physical note Date of Service 10/21/2024 History of Present Illness This is a 83-year-old male with a past medical history consistent with T2DM, hypertension, anxiety,mild dementia presented to the ED on 10/20/2024 with chief complaint of altered mental status. Per reports from family patient has become more confused over the last week, reports of a fall and subsequent rib fracture. Given reports of confusion brought to the ED in [place] for further evaluation. Patient with no medications, recently started on sertraline in the setting of anxiety and given patient's pain reports of taking patient's 's pain medication. On the floor, patient was started on IVF with NS at 75 mL/h for his hyponatremia. At 1401 on 10/21/2024, a CODE BLUE was called on this patient. His nurse who was at bedside witnessed patient started to yell out, tensed up, turned blue and became pulseless. After 1 round of CPR, his ROSC was achieved. No medications were needed during the code. Anesthesiology at bedside did not think patient would need intubation since he was able to have a cough, gag reflex and have a respiratory drive. Patient was subsequently transferred to MICU for further evaluation and management. Patient was more alert and oriented during our encounter and had no complaints at this point. Physical Exam Vitals and Measurements T: 36.1 C (Axillary) TMIN: 36.1 C (Axillary) TMAX: 36.8 C (Oral) HR: 97 (Monitored) RR: 27 BP: 146/93 SpO2: 97% HT: 170.2 cm WT: 70.5 kg BMI: 24.34 Weight Dosing Weight: 70.5 kg (10/20/24) General: No apparent distress. Alert and oriented x 2 (himself and location). HEENT: NCAT EOMI Neck: Supple. No appreciable elevation in JVP. Cardiovascular: S1 S2 normal. No extra-audible heart tones. Respiratory: Bilaterally clear breath sounds with no crepitation or wheeze. Abdominal: Soft, nontender and nonrigid. Bowel sounds present. Distended bladder palpated on exam. Extremities: No edema. Adequate peripheral circulation. Neurological: Grossly intact without focal deficit. Cerebellar function preserved. Skin: Intact. Dry. No rash. Lab Results 10/21 08:14 WBC: 11.9 H Hgb: 13.6 Hct: 39.8 L Platelet: 252 Neutrophil %: 88.4 H Glucose Level: 145 H Sodium Level: 127 L Potassium Level: 3.6 BUN: 13.0 Creatinine Lvl (s): 0.64 10/20 23:03 WBC: 10.1 Hgb: 13.1 Hct: 38.7 L Platelet: 235 Neutrophil %: 89.0 H Glucose Level: 151 H Sodium Level: 127 L Potassium Level: 3.6 BUN: 10.0 Creatinine Lvl (s): 0.52 L Imaging Results and Diagnostics XR Enteric Tube Placement Result Date: October 21, 2024 Verified By: SANG KNUTSON DO CLINICAL STATEMENT: IMPRESSION: 1. Orogastric tube in functional position.2. No acute pulmonary disease. Assessment/Plan Cardiac arrest, achieved ROSC s/p 1 round of CPR Hyponatremia - improving Metabolic encephalopathy Urinary retention Past medical history: diabetes type 2, dementia, hypertension, intentional use of spouse medicationespecially oxycodone, rib fractures Plan Patient is an 83-year-old male initially admitted to the floor on 10/20/2024 for hyponatremia. At 1401 on 10/21/2024, a CODE BLUE was called on this patient. His nurse who was at bedside witnessed patient started to yell out, tensed up, turned blue and became pulseless. After 1 round of CPR, his ROSC was achieved. No medications were needed during the code. Anesthesiology at bedside did not think patient would need intubation since he was able to have a cough, gag reflex and have a respiratory drive. Patient was subsequently transferred to MICU for further evaluation and management. Will check a CBC, CMP, troponin, EKG to further look for etiologies of his cardiac arrest. Given distended bladder was palpated on exam, a bladder scan was done which showed patient was retaining greater than 1 L of urine. Reilly catheter was inserted. At this point, it could be a vagal reaction caused by patient straining to urinate, which caused him to become unresponsive and pulseless. Will start Flomax to help with this urinary retention. Regarding hyponatremia, will continue IVF with NS at 75 mL/h as his sodium has been trending appropriately. Case discussed with attending Dr. Guthrie, please see addendum for any changes. Problem List/Past Medical History Ongoing Anxiety Aortic stenosis, moderate Atherosclerosis of aorta Benign non-nodular prostatic hyperplasia BMI 24.0-24.9, adult De Quervain's disease (tenosynovitis) Glaucoma Hypercholesteremia Hypertension Hypertension associated with type 2 diabetes mellitus Iron deficiency anemia Medicare annual wellness visit, subsequent Microalbuminuria Mitral valve regurgitation Opacification of intraocular lens Pseudophakia Type 2 diabetes mellitus Type 2 diabetes mellitus with hyperlipidemia Type 2 diabetes with complication Historical DM (diabetes mellitus), type 2 Procedure/Surgical History No retinopathy of left eye due to diabetes mellitus: 07/04/20 No retinopathy of right eye due to diabetes mellitus: 07/04/20 Eye examination, DM: 03/07/20 Cholecystectomy Rotator cuff repair, L Medications Home Medications (14) Active amLODIPine 5 mg oral tablet 5 mg = 1 tab(s), Oral, BID aspirin 81 mg oral delayed release tablet 81 mg = 1 tab(s), Oral, qDay atorvastatin 40 mg oral tablet 40 mg = 1 tab(s), Oral, qDay Blood Glucose Test Strips See Instructions fluticasone 50 mcg/inh NASAL spray 50 mcg, Nasal, qDay Lancets See Instructions latanoprost 0.005% ophthalmic solution 1 drop(s), Eyes, both, qHS lisinopril 40 mg oral tablet 40 mg = 1 tab(s), Oral, qDay MetFORMIN (Eqv-Glucophage XR) 500 mg oral tablet, EXTENDED RELEASE 2,000 mg = 4 tab(s), Oral, qDay Multivitamin 1 tab(s), Oral, Daily pioglitazone 30 mg oral tablet 30 mg = 1 tab(s), Oral, Daily sertraline 25 mg oral tablet 25 mg = 1 tab(s), Oral, qDay Timolol Maleate (Eqv-Timoptic) 0.5% ophthalmic solution 1 gtt(s), Eyes, both, BID Vitamin D3 2,000 unit(s) = 1 tab(s), Oral, Daily Allergies NKA Social History Smoking Status - 03/21/2015 Never smoker Alcohol Use: Current. Frequency: 1-2 times per year., 07/08/2024 Employment/School Status: Retired. 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 Appetite Good. Eating Difficulties None. Caffeine intake amount: 2 coffee daily., 10/08/2024 Substance Abuse Use: Never., 12/09/2018 Tobacco Nicotine Use: Never (less than 100 in lifetime)., 10/20/2024 Family History Diabetes: Daughter. Hyperlipidemia: Mother, Father and Brother. Hypertension: Mother. Malignant tumor of lung: Mother. Health Status Family Member(s) Immunizations pneumococcal 13-valent conjugate vaccine: 0 unknown unit (09/16/14) pneumococcal 23-valent vaccine(Pneumovax: 0 unknown unit (02/13/06) SARS-CoV-2 (COVID-19) mRNA-1273 vaccine: 0.25 unknown unit (08/03/21) SARS-CoV-2 (COVID-19) mRNA-1273 vaccine: 0.5 unknown unit (02/24/21) SARS-CoV-2 (COVID-19) mRNA-1273 vaccine: 100 mcg (06/22/20) SARS-CoV-2 (COVID-19) mRNA-1273 vaccine: 0 unknown unit (05/25/20) tetanus/diphth/pertuss (Tdap) adult/adol: 0.5 unknown unit (08/03/21) tetanus/diphth/pertuss (Tdap) adult/adol: 0 unknown unit (08/25/12) zoster vaccine, inactivated: 1 unknown unit (05/16/19) zoster vaccine, inactivated: 1 unknown unit (02/04/19) Code Status Code Status - Ordered -- 10/20/24 22:35:00 EDT, Full Code, Constant Order Digitally Signed by LUIS SAMUELS DO on 10/21/2024 05:09 PM [facility] [id number] Progress note Date of Service 10/21/2024 At 1401 on 10/21/2024, a CODE BLUE was called on this patient. His nurse who was at bedside witnessed patient started to yell out, tensed up, turned blue and became pulseless. After 1 round of CPR, his ROSC was achieved. No medications were needed during the code. Anesthesiology at bedside did not think patient would need intubation since he was able to have a cough, gag reflex and have a respiratory drive. Patient was subsequently transferred to MICU for further evaluation and management. Digitally Signed by LUIS SAMUELS DO on 10/21/2024 03:47 PM [facility] [id number] Note* Exam Date Time Procedure Performing Provider Status 10/21/24 2:08 PM Electrocardiogram - EKG - CV VALERIE CAREY MD; Auth (Verified) ECG Final Report Right and left arm electrode reversal, interpretation assumes no reversal SINUS RHYTHM Left atrial enlargement LEFT BUNDLE BRANCH BLOCK Electronic Signature: BRIGITTE CAREY MD 10/22/2024 22:44:26 [facility] [id number] History and physical note Date of Service October 20, 2024 Chief Complaint Confusion, hyponatremia History of Present Illness This is a 83-year-old male with a past medical history consistent with T2DM, hypertension, anxiety,mild dementia presents with chief complaint of altered mental status. Per reports from family patient has become more confused over the last week, reports of a fall and subsequent rib fracture. Givenreports of confusion brought to the ED in [place] for further evaluation. Patient with no medications, recently started on sertraline in the setting of anxiety and given patient's pain reports of taking patient's 's pain medication. Pertinent labs, CBC without significant derangement, CMP with sodium of 123. UDS with opiate positivity, troponin was within normal limits. CT head performed revealed no acute intracranial abnormality, CXR which age-indeterminate right sided rib fractures 4 through 6 of lateral rib. EKG with normalsinus rhythm with a left bundle branch block. On exam, patient is confused, does not appear to be in apparent pain. Vital signs are stable at thetime of evaluation. Review of Systems Unable to obtain review of systems due to patient mental status. Physical Exam Vitals and Measurements No qualifying data available. Physical Examination General: No apparent distress. Alert and appropriate. HEENT: NCAT EOMI Neck: Supple. No appreciable elevation in JVP. Cardiovascular: S1 S2 normal. No extra-audible heart tones. Respiratory: Bilaterally clear breath sounds with no crepitation or wheeze. Abdominal: Soft, nontender and nonrigid. No guarding. Bowel sounds present. Extremities: No edema. Adequate peripheral circulation. Neurological: Grossly intact without focal deficit. Cerebellar function preserved. Skin: Intact. Dry. No rash. Lab Results No 36 Hour Lab Data Imaging Results and Diagnostics CT head, personally reviewed, no acute intracranial abnormality CXR, personally reviewed, no acute process EKG NSR with LBBB, personally reviewed Assessment/Plan Hyponatremia Altered mental status Recent rib fractures Generalized weakness T2DM Dementia Hypertension The patient was admitted for management of altered mental status in the setting of hyponatremia. Altered mental status could be explained by recent medication, reports of taking patient's 's painmedication, patient was opiate positive on UDS. Additionally patient started on sertraline in setting of anxiety. These medications can cause SIADH which explains patient's hyponatremia. Patient was g iven normal saline bolus in the [place] ED, sodium did improve from 122-123. Continue gentle NS hydration. Check TSH, check urine osmolality and urine sodium. UA was negative, no definitive infectious etiology seen to explain patient's altered mental status. CBC and BMP are ordered daily and replete electrolytes necessary. Continue patient's home chronic medications pending pharmacy verification. The labs, the imaging, the EKG were personally reviewed this case. The case was personally discussed with the ED physician. DVT prophylaxis: SCDs The patient is listed as a full code The patient will require a 2 midnight stay for management of electrolyte derangements, particularlyhyponatremia, risk of decompensation of discharge and worsening neurologic symptoms. Patient requires monitoring of sodium and BMP in investigation as to etiology. Problem List/Past Medical History Ongoing Anxiety Aortic stenosis, moderate Atherosclerosis of aorta Benign non-nodular prostatic hyperplasia BMI 24.0-24.9, adult De Quervain's disease (tenosynovitis) Glaucoma Hypercholesteremia Hypertension Hypertension associated with type 2 diabetes mellitus Iron deficiency anemia Medicare annual wellness visit, subsequent Microalbuminuria Mitral valve regurgitation Opacification of intraocular lens Pseudophakia Type 2 diabetes mellitus Type 2 diabetes mellitus with hyperlipidemia Type 2 diabetes with complication Historical DM (diabetes mellitus), type 2 Procedure/Surgical History No retinopathy of left eye due to diabetes mellitus: 07/04/20 No retinopathy of right eye due to diabetes mellitus: 07/04/20 Eye examination, DM: 03/07/20 Cholecystectomy Rotator cuff repair, L Medications Home Medications (15) Active amLODIPine 5 mg oral tablet 5 mg = 1 tab(s), Oral, BID aspirin 81 mg oral delayed release tablet 81 mg = 1 tab(s), Oral, qDay atorvastatin 40 mg oral tablet 40 mg = 1 tab(s), Oral, qDay Blood Glucose Test Strips See Instructions fluticasone 50 mcg/inh NASAL spray 50 mcg, Nasal, qDay ibuprofen 200 mg oral tablet 400 mg = 2 tab(s), PRN, Oral, q6h Lancets See Instructions latanoprost 0.005% ophthalmic solution 1 drop(s), Eyes, both, qHS lisinopril 40 mg oral tablet 40 mg = 1 tab(s), Oral, qDay MetFORMIN (Eqv-Glucophage XR) 500 mg oral tablet, EXTENDED RELEASE 2,000 mg = 4 tab(s), Oral, qDay Multivitamin 1 tab(s), Oral, Daily pioglitazone 30 mg oral tablet 30 mg = 1 tab(s), Oral, Daily sertraline 25 mg oral tablet 25 mg = 1 tab(s), Oral, qDay Timolol Maleate (Eqv-Timoptic) 0.5% ophthalmic solution 1 gtt(s), Eyes, both, BID Vitamin D3 2,000 unit(s) = 1 tab(s), Oral, Daily Allergies NKA Social History Smoking Status - 03/21/2015 Never smoker Alcohol Use: Current. Frequency: 1-2 times per year., 07/08/2024 Employment/School Status: Retired. 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 Appetite Good. Eating Difficulties None. Caffeine intake amount: 2 coffee daily., 10/08/2024 Substance Abuse Use: Never., 12/09/2018 Tobacco Nicotine Use: Never (less than 100 in lifetime)., 10/20/2024 Family History Diabetes: Daughter. Hyperlipidemia: Mother, Father and Brother. Hypertension: Mother. Malignant tumor of lung: Mother. Health Status Family Member(s) Immunizations pneumococcal 13-valent conjugate vaccine: 0 unknown unit (09/16/14) pneumococcal 23-valent vaccine(Pneumovax: 0 unknown unit (02/13/06) SARS-CoV-2 (COVID-19) mRNA-1273 vaccine: 0.25 unknown unit (08/03/21) SARS-CoV-2 (COVID-19) mRNA-1273 vaccine: 0.5 unknown unit (02/24/21) SARS-CoV-2 (COVID-19) mRNA-1273 vaccine: 100 mcg (06/22/20) SARS-CoV-2 (COVID-19) mRNA-1273 vaccine: 0 unknown unit (05/25/20) tetanus/diphth/pertuss (Tdap) adult/adol: 0.5 unknown unit (08/03/21) tetanus/diphth/pertuss (Tdap) adult/adol: 0 unknown unit (08/25/12) zoster vaccine, inactivated: 1 unknown unit (05/16/19) zoster vaccine, inactivated: 1 unknown unit (02/04/19) Code Status Code Status - Ordered -- 10/20/24 22:35:00 EDT, Full Code, Constant Order Digitally Signed by ARAM BELL DO on 10/20/2024 11:54 PM [facility] [id number] Note* Exam Date Time Procedure Performing Provider Status 10/20/24 11:50 AM XR Chest 2 Views MIRIAN DENNY MD; A [facility] (Verified) [id number] ORIGINAL EXAMINATION: TWO XRAY VIEWS OF THE CHEST 10/20/2024 11:52 am COMPARISON: 04/08/2021 HISTORY: ORDERING SYSTEM PROVIDED HISTORY: Reason for Exam: Chest Pain FINDINGS: Cardiomediastinal silhouette is prominent. Central pulmonary vascular congestion. Aortic arch calcifications. No focal consolidation. No pleural effusion. No pneumothorax. Age indeterminate right-sided rib fractures of 4, 5, 6 lateral ribs. IMPRESSION: 1. Cardiomegaly with central pulmonary vascular congestion. 2. Age indeterminate right-sided rib fractures of 4, 5, 6 lateral ribs. Correlate with point tenderness. Interpreted by: Mirian Denny Preliminary Report By: Mirian Denny Electronically signed By Mirian Denny Dictated Date: 10/20/2024 12:03:00 PM Prelim Date: 10/20/2024 12:10:04 PM Sign Date: 10/20/2024 12:10:04 PM Ordering Provider: [facility]06-17-2025 Note* Exam Date Time Procedure Performing Provider Status 10/20/24 11:[address] Head or Brain w/o Contrast STEPHANIE RASHEED MD; Auth (Verified) [id number] ORIGINAL EXAMINATION: CT OF THE HEAD WITHOUT CONTRAST 10/20/2024 11:49 am TECHNIQUE: CT of the head was performed without the administration of intravenous contrast. Automated exposure control, iterative reconstruction, and/or weight based adjustment of the mA/kV was utilized to reduce the radiation dose to as low as reasonably achievable. COMPARISON: None. HISTORY: ORDERING SYSTEM PROVIDED HISTORY: Reason for Exam: Mental status change, persistent or worsening FINDINGS: BRAIN/VENTRICLES: There is no acute intracranial hemorrhage, mass effect or midline shift. No abnormal extra-axial fluid collection. The ventricles and sulci are prominent, unchanged. ORBITS: The visualized portion of the orbits demonstrate no acute abnormality. SINUSES: The visualized paranasal sinuses and mastoid air cells demonstrate no acute abnormality. SOFT TISSUES/SKULL: No acute abnormality of the visualized skull or soft tissues. IMPRESSION: No acute intracranial abnormality. Interpreted by: Stephanie Rasheed Preliminary Report By: Stephanie Rasheed Electronically signed By Stephanie Rasheed Dictated Date: 10/20/2024 11:51:25 AM Prelim Date: 10/20/2024 11:52:19 AM Sign Date: 10/20/2024 11:52:19 AM Ordering Provider: [facility]06-17-2025 Note* Exam Date Time Procedure Performing Provider Status 10/20/24 11:03 AM EKG [ED [facility]] - JAMIE JOSEPH MD; Auth (Verified) ECG Final Report Sinus rhythm Probable left atrial enlargement Left bundle branch block SEE DICTATION Electronic Signature: JAMIE TAYLOR MD 10/20/2024 12:17:43 [facility]10-17-2024 Hospital Discharge instructions Patient Education 02/20/2024 16:08:07 Head Injury (Adult) Head Injury (Adult) You have a head injury. It does not appear serious at this time. But symptoms of a more serious problem, such as a mild brain injury (concussion) or bruising or bleeding in the brain, may appear later. For this reason, you or someone caring for you will need to watch for the symptoms listed below. Once you re home, also be sure to follow any care instructions you re given. Home care Watch for the following symptoms Seek emergency medical care if you have any of these symptoms over the next hours to days: Headache Nausea or vomiting Dizziness Sensitivity to light or noise Unusual sleepiness or grogginess Trouble falling asleep Personality changes Vision changes Memory loss Confusion Trouble walking or clumsiness Loss of consciousness (even for a short time) Inability to be awakened Stiff neck Weakness or numbness in any part of the body Seizures General care If you were prescribed medicines for pain, use them as directed. Note: Don t take other medicines for pain without talking to your provider first. To help reduce swelling and pain, apply a cold source to the injured area for up to 20 minutes at atime. Do this as often as directed. Use a cold pack or bag of ice wrapped in a thin towel. Never apply a cold source directly to the skin. If you have cuts or scrapes as a result of your head injury, care for them as directed. For the next 24 hours (or longer, if instructed): oDon t drink alcohol or use sedatives or other medicines that make you sleepy. oDon t drive or operate machinery. oDon t do anything strenuous, such as heavy lifting or straining. oLimit tasks that require concentration. This includes reading, using a smartphone or computer, watching TV, and playing video games. oDon t return to sports or other activities that could result in another head injury. Follow-up care Follow up with your healthcare provider, or as directed. If imaging tests were done, they will be reviewed by a doctor. You will be told the results and any new findings that may affect your care. When to seek medical advice Call your healthcare provider right away if any of these occur: Pain doesn t get better or worsens New or increased swelling or bruising Fever of 100.4 F (38 C) or higher, or as directed by your provider Increased redness, warmth, drainage, or bleeding from the injured area Fluid drainage or bleeding from the nose or ears Any depression or bony abnormality in the injured area Persistent confusion or lethargy Bruising behind the ears or bruising around the eyes [id number] [employer]. [address] [place] [id number]. All rights reserved. This information is not intended as a substitute for professional medical care. Always follow yourhealthcare professional's instructions. 02/20/2024 16:08:03 Fall, Mechanical Mechanical Fall You have had a fall today. It appears that the cause is what is called mechanical. That means that you slipped, tripped, or lost your balance. If your fall had been because of fainting or a seizure, you might need other tests. It is normal to feel sore and tight in your muscles and back the next day, and not just the musclesyou injured at first. Remember, all the parts of your body are connected, so while initially one area hurts, the next day another may hurt. Also, when you injure yourself, it causes inflammation, which then causes the muscles to tighten up and hurt more. After the initial worsening, it should gradually improve over the next few days. Do report more severe pain. Even without a definite head injury, you can still get a concussion from your head suddenly jerkingforward, backward, or sideways when falling. Concussions and even bleeding can still happen, especially if you have had a recent injury or take blood thinner medicine. It is not unusual to have a mild headache and feel tired and even nauseous or dizzy. Home care Rest today and go back to your normal activities when you are feeling back to normal. If you were injured during the fall, follow the advice from your healthcare provider regarding careof your injury. At first, do not try to stretch out the sore spots. If there is a strain, stretching may make it worse. Massage may help relax the muscles without stretching them. You can use an ice pack or cold compress on and off to the sore spots 10 to 20 minutes at a time, as often as you feel comfortable. This may help reduce the inflammation, swelling and pain. If you have any scrapes or abrasions, they usually heal within 10 days. It is important to keep theabrasions clean while they initially start to heal. However, an infection may happen even with proper care, so watch for early signs of infection (such as warmth, redness, or swelling). Medicines Talk to your healthcare provider before taking new medicines, especially if you have other medical problems or are taking other medicines. If you need anything for pain, you can take acetaminophen or ibuprofen, unless you were given a different pain medicine to use. Talk with your healthcare provider before using these medicines if you have chronic liver or kidney disease, or ever had a stomach ulcer or gastrointestinal bleeding, or are taking blood thinner medicines. Be careful if you are given prescription pain medicines, narcotics, or medicine for muscle spasm. They can make you sleepy and dizzy, and can affect your coordination, reflexes, and judgment. Do not drive or do work where you can injure yourself when taking them. Fall prevention Fix, remove, or replace anything that caused your fall. Make your home safe by keeping walkways clear of objects you may trip over. Use nonslip pads under rugs. Don't use small area rugs or throw rugs. Don't walk in poorly lit areas. Don't stand on chairs or wobbly ladders. Use caution when reaching overhead or looking upward. This position can cause a loss of balance. Be sure your shoes fit properly, have nonslip bottoms and are in good condition. Be cautious when going up and down curbs, and walking on uneven sidewalks. If your balance is poor, consider using a cane or walker. Stay as active as you can. Balance, flexibility, strength, and endurance all come from exercise. They all play a role in preventing falls. If you have pets, know where they are before you stand up or walk so you don't trip over them. Limit alcohol intake. Alcohol can cause balance problems and increase the risk of falls. Use night lights. Have your eyes tested to be sure you are seeing well, even if you already wear glasses. Follow-up Follow up with your healthcare provider, or as advised. If X-rays or CT scans were done, you will be notified if there is a change in the reading, especially if it affects treatment. Call 911 Call 911 if any of these happen: Trouble breathing Confused or difficulty arousing Fainting or loss of consciousness Rapid or very slow heart rate Seizure Difficulty with speech or vision, weakness of an arm or leg Difficulty walking or talking, loss of balance, numbness or weakness in one side of your body, or facial droop When to seek medical advice Call your healthcare provider right away if any of these happen: Repeated mechanical falls, or unexplained falls Dizziness Severe headache Blood in vomit, stools (black or red color) 5071-[address] [employer] [place] [address]. All rights reserved. This information is not intended as a substitute for professional medical care. Always follow yourhealthcare professional's instructions. Follow Up Care 02/20/2024 14:39:26 With:RASHMI PRICE Address: [address] [place] [phone] When:2-4 days With:ABAD SCHULZ MD, Orthopedic Address: [address] [place] [address] [facility] [place] [address]- [phone] When:5 to 7 days [facility] 10-17-2024 Emergency department Discharge summary Discharge Instructions Thank you for allowing [facility] to assist you with your healthcare needs. The following is importantdischarge information regarding your hospital visit. Diagnosis from Today's Visit Closed head injury Compression fracture of T2 vertebra Fall What to Do Next Instructions from Your Care Team Please follow-up with Dr. Schulz of orthopedic surgery for compression fracture. No qualifying data available. Post Acute Orders No qualifying data available. You Need to Schedule the Following Appointments Follow Up with RASHMI PRICE When:Within 2-4 days Where:[address] [place] [phone] Follow Up with ABAD SCHULZ MD, Orthopedic When:Within 5 to 7 days Where:[address] [place] [address] [facility] [place] [address]- [phone] Allergies NKA Medications Please ask your primary doctor or pharmacist before taking any other medication not listed, including over the counter drugs, herbal medications, vitamins and or supplements as they may interact withyour home medications. What How Much When Why Instructions Last Dose Unchanged amLODIPine (amLODIPine 5 mg oral tablet) 1 tab(s) by mouth Once a day Hypertension Unchanged aspirin (aspirin 81 mg oral delayed release tablet) 1 tab(s) by mouth Once a day Atherosclerosis of aorta Type 2 diabetes mellitus Unchanged atorvastatin (atorvastatin 40 mg oral tablet) 1 tab(s) by mouth Once a day Hyperlipidemia Type 2 diabetes mellitus Unchanged cholecalciferol (Vitamin D3) 2,000 unit(s) by mouth Every day Unchanged DME (Blood Glucose Test Strips) See instructions Type 2 diabetes mellitus EA=BOX of 100 DM E11.9 one touch ultra blue test strips - patient checks once a day Unchanged DME (Lancets) See instructions Type 2 diabetes mellitus One touch delica lancets - patietn checks once a day Unchanged ferrous sulfate (ferrous sulfate 325 mg (65 mg elemental iron) oral delayed release tablet) 1 tab(s) by mouth Once a day Iron deficiency anemia Duration: 90 Days Unchanged fluticasone nasal (fluticasone 50 mcg/ inh NASAL spray) 50 Microgram in the nose Once a day Seasonal allergies Unchanged ibuprofen (ibuprofen 200 mg oral tablet) 2 tab(s) by mouth Every 6 hours as needed for for pain Take with food or milk. Unchanged latanoprost ophthalmic (latanoprost 0.005% ophthalmic solution) 1 Drops Both eyes Daily at bedtime Unchanged lisinopril (lisinopril 40 mg oral tablet) 1 tab(s) by mouth Once a day Hypertension Unchanged metFORMIN (MetFORMIN (Eqv-Glucophage XR) 500 mg oral tablet, EXTENDED RELEASE) 4 tab(s) by mouth Once a day Type 2 diabetes mellitus Duration: 90 Days Unchanged multivitamin (Multivitamin) 1 tab(s) by mouth Every day Unchanged pioglitazone (pioglitazone 30 mg oral tablet) 1 tab(s) by mouth Every day Unchanged timolol ophthalmic (Timolol Maleate (Eqv-Timoptic) 0.5% ophthalmic solution) 1 gtt(s) Both eyes Two (2) times a day Please take this list to your next doctor s visit. Bring all medications you take, including over the counter medications, herbals and other supplements with you to your doctor s visit. Patients and families are reminded to discard old lists and to update any records with all medication providers or retail pharmacies. Education Materials Head Injury (Adult) You have a head injury. It does not appear serious at this time. But symptoms of a more serious problem, such as a mild brain injury (concussion) or bruising or bleeding in the brain, may appear later. For this reason, you or someone caring for you will need to watch for the symptoms listed below. Once you re home, also be sure to follow any care instructions you re given. Home care Watch for the following symptoms Seek emergency medical care if you have any of these symptoms over the next hours to days: Headache Nausea or vomiting Dizziness Sensitivity to light or noise Unusual sleepiness or grogginess Trouble falling asleep Personality changes Vision changes Memory loss Confusion Trouble walking or clumsiness Loss of consciousness (even for a short time) Inability to be awakened Stiff neck Weakness or numbness in any part of the body Seizures General care If you were prescribed medicines for pain, use them as directed. Note: Don t take other medicines for pain without talking to your provider first. To help reduce swelling and pain, apply a cold source to the injured area for up to 20 minutes at atime. Do this as often as directed. Use a cold pack or bag of ice wrapped in a thin towel. Never apply a cold source directly to the skin. If you have cuts or scrapes as a result of your head injury, care for them as directed. For the next 24 hours (or longer, if instructed): oDon t drink alcohol or use sedatives or other medicines that make you sleepy. oDon t drive or operate machinery. oDon t do anything strenuous, such as heavy lifting or straining. oLimit tasks that require concentration. This includes reading, using a smartphone or computer, watching TV, and playing video games. oDon t return to sports or other activities that could result in another head injury. Follow-up care Follow up with your healthcare provider, or as directed. If imaging tests were done, they will be reviewed by a doctor. You will be told the results and any new findings that may affect your care. When to seek medical advice Call your healthcare provider right away if any of these occur: Pain doesn t get better or worsens New or increased swelling or bruising Fever of 100.4 F (38 C) or higher, or as directed by your provider Increased redness, warmth, drainage, or bleeding from the injured area Fluid drainage or bleeding from the nose or ears Any depression or bony abnormality in the injured area Persistent confusion or lethargy Bruising behind the ears or bruising around the eyes [id number] [employer]. [address] [place] [address], [place] [address]. All rights reserved. This information is not intended as a substitute for professional medical care. Always follow yourhealthcare professional's instructions. Mechanical Fall You have had a fall today. It appears that the cause is what is called mechanical. That means that you slipped, tripped, or lost your balance. If your fall had been because of fainting or a seizure, you might need other tests. It is normal to feel sore and tight in your muscles and back the next day, and not just the musclesyou injured at first. Remember, all the parts of your body are connected, so while initially one area hurts, the next day another may hurt. Also, when you injure yourself, it causes inflammation, which then causes the muscles to tighten up and hurt more. After the initial worsening, it should gradually improve over the next few days. Do report more severe pain. Even without a definite head injury, you can still get a concussion from your head suddenly jerkingforward, backward, or sideways when falling. Concussions and even bleeding can still happen, especially if you have had a recent injury or take blood thinner medicine. It is not unusual to have a mild headache and feel tired and even nauseous or dizzy. Home care Rest today and go back to your normal activities when you are feeling back to normal. If you were injured during the fall, follow the advice from your healthcare provider regarding careof your injury. At first, do not try to stretch out the sore spots. If there is a strain, stretching may make it worse. Massage may help relax the muscles without stretching them. You can use an ice pack or cold compress on and off to the sore spots 10 to 20 minutes at a time, as often as you feel comfortable. This may help reduce the inflammation, swelling and pain. If you have any scrapes or abrasions, they usually heal within 10 days. It is important to keep theabrasions clean while they initially start to heal. However, an infection may happen even with proper care, so watch for early signs of infection (such as warmth, redness, or swelling). Medicines Talk to your healthcare provider before taking new medicines, especially if you have other medical problems or are taking other medicines. If you need anything for pain, you can take acetaminophen or ibuprofen, unless you were given a different pain medicine to use. Talk with your healthcare provider before using these medicines if you have chronic liver or kidney disease, or ever had a stomach ulcer or gastrointestinal bleeding, or are taking blood thinner medicines. Be careful if you are given prescription pain medicines, narcotics, or medicine for muscle spasm. They can make you sleepy and dizzy, and can affect your coordination, reflexes, and judgment. Do not drive or do work where you can injure yourself when taking them. Fall prevention Fix, remove, or replace anything that caused your fall. Make your home safe by keeping walkways clear of objects you may trip over. Use nonslip pads under rugs. Don't use small area rugs or throw rugs. Don't walk in poorly lit areas. Don't stand on chairs or wobbly ladders. Use caution when reaching overhead or looking upward. This position can cause a loss of balance. Be sure your shoes fit properly, have nonslip bottoms and are in good condition. Be cautious when going up and down curbs, and walking on uneven sidewalks. If your balance is poor, consider using a cane or walker. Stay as active as you can. Balance, flexibility, strength, and endurance all come from exercise. They all play a role in preventing falls. If you have pets, know where they are before you stand up or walk so you don't trip over them. Limit alcohol intake. Alcohol can cause balance problems and increase the risk of falls. Use night lights. Have your eyes tested to be sure you are seeing well, even if you already wear glasses. Follow-up Follow up with your healthcare provider, or as advised. If X-rays or CT scans were done, you will be notified if there is a change in the reading, especially if it affects treatment. Call 911 Call 911 if any of these happen: Trouble breathing Confused or difficulty arousing Fainting or loss of consciousness Rapid or very slow heart rate Seizure Difficulty with speech or vision, weakness of an arm or leg Difficulty walking or talking, loss of balance, numbness or weakness in one side of your body, or facial droop When to seek medical advice Call your healthcare provider right away if any of these happen: Repeated mechanical falls, or unexplained falls Dizziness Severe headache Blood in vomit, stools (black or red color) [id number] [employer]. [address] [place] [address]. All rights reserved. This information is not intended as a substitute for professional medical care. Always follow yourhealthcare professional's instructions. Additional Information VACCINATE! IT SAVES LIVES! Members of the community who have not yet received the COVID-19 vaccine and would like to receive it can visit one of [facility] vaccine clinics. There are many vaccine clinic locations within the [facility]. For locations and available times, please visit www.gettheshot.coronavirus.[place].gov/. It is important to note that some COVID mobile vaccine clinics are held outdoors and may be canceled in rainy or stormy conditions. To learn more about pediatric vaccinations (ages 5-11), we invite you to visit the [facility] webpage. https://www.[employer].org/pages/5754-Olcec-Byneaiuwscs-Hywzzojcut-Votpe-Mec stions.htmlTo learn more about the COVID-19 vaccine, we invite you to visit the CDC website for a list of frequently asked questions. https://www.cdc.gov/coronavirus/2019-ncov/vaccines/faq.html [facility] [employer] Patient Portal Access Instructions: Stay connected with your healthcare team and access your personal medical information anytime with the [employer] Patient Portal. If you would like a full copy of your medical records please contact the [facility] Medical Records Department Saturday through Saturday between 8a.m. and 4:30p.m. Please follow the directions below to access the portal: 1.Access the email account you provided upon registration to the [facility].2.Look for an invitation email from [facility].3.Open the email and access the invitation link: Accept Invitation to [employer]4.Fill in the required small to create your account. Sign into [email or web address] with your username and password that you created in the above steps to stay up to date. You can then view a summary of results, a summary of your visits, and the ability to download your summaries to your computer or send the information securely to a physician. Remember that your healthcare information is confidential, so carefully consider who you will allow to register on the [employer] Patient Portal for access to your information. You can also access the [facility] Patient Portal on the [employer]. Simply click on "Health Records" under "HealthData" and then click on the [email or web address] logo. HOW TO SAFELY DISPOSE OF PRESCRIPTION MEDICATIONS Please use one of the following methods to safely dispose of your unused medications. 1.Use a drug disposal kit: the drug disposal pouch allows you to safely discard your old and unuseddrugs. Ask your nurse to give you one when you are discharged.2.Visit a local take-back location: Many local pharmacies and police departments have programs that collect old and unwanted prescriptiondrugs. Call your local pharmacy or go to http://[employer]/4B7Zf5r to find one close to you.3.Make use of household items: Use cat litter or old coffee grounds to dispose medications if other options arenot available. Mix your drugs with these household products, seal them in an airtight container andthrow it into the garbage. Call [facility]: [phone] to be sure your drugs can be disposed of in this way. Some medicines may require a different approach.4.Never flush your medications down the toilet. IF YOU HAVE BEEN PRESCRIBED AN OPIOIDS FOR PAIN If you have been prescribed an opioid (such as hydrocodone, oxycodone or morphine), it is critical to understand the possible side effects and risks of opioid pain medications. Even when taken as directed, opioids can have several side effects including: Tolerance, meaning you might need to take more of a medication for the same pain relief. Nausea, vomiting and/or constipation. Sleepiness, dizziness, dry mouth, confusion, depression or itching. Physical dependence, meaning you have withdrawal symptoms when a medication is stopped ? this can develop within a few days. KNOW YOUR RESPONSIBILITIES It is important to know exactly how much and how often to take the opioid pain medications you are prescribed. Never take opioids in higher amounts or more often than prescribed. Do not combine opioids with alcohol or other drugs that cause drowsiness, such as benzodiazepines, also known as benzos,including diazepam and alprazolam, muscle relaxants or sleep aids. Never sell or share prescriptionopioids. This is illegal. Store opioids in a secure place and out of reach of others (including children, family, friends and visitors). The last page(s) of this document has been signed and retained as a CHART COPY Signatures Patient Education Materials Head Injury (Adult) Fall, Mechanical Medication Leaflets My discharge plan and instructions have been reviewed and explained to me and I,TIM ADAMSON understand my current condition and have read and understand these discharge instructions. I have received a written copy of the plan/instructions. If I have questions, I am aware that I should contact my doctor. Patient/Facilities Assistant Signature: Date/Time: Relationship to Patient: Witness Name/Signature: Date/Time: [facility]10-17-2024 Note ORIGINAL HISTORY: Fall COMPARISON: No TECHNIQUE: Cervical spine CT with sagittal and coronal reconstructions. This exam was performed according to our departmental dose optimization program, and includes the following measures where applicable: automated exposure control, adjustment of the mAs and/or kVp according to patient size and/or exam, and an iterative reconstruction algorithm. FINDINGS: There are no cervical acute fractures or dislocations. There is a mild compression deformity at the superior endplate of T2, age unknown; there is no edema in the surrounding paraspinous tissues. The cervical vertebral bodies are intact. The prevertebral soft tissues are unremarkable in appearance. IMPRESSION: No acute cervical fracture. Mild T2 compression fracture, age unknown. Interpreted by: Jaxon Britton MD Preliminary Report By: Jaxon Britton MD Electronically signed By Jaxon Britton MD Dictated Date: 02/20/2024 3:57:54 PM Prelim Date: 02/20/2024 3:59:40 PM Sign Date: 02/20/2024 3:59:40 PM Ordering Provider: [facility]10[facility]17-2024 Note ORIGINAL HISTORY: Fall COMPARISON: No TECHNIQUE: CT of the head through the facial bones with sagittal and coronal reconstructions. This exam was performed according to our departmental dose optimization program, and includes the following measures where applicable: automated exposure control, adjustment of the mAs and/or kVp according to patient size and/or exam, and an iterative reconstruction algorithm. FINDINGS: The orbital rims, zygomatic arches and the hanson of the maxillary sinuses are intact. The mandible is intact and the temporomandibular joints are properly seated. There is soft tissue swelling over the right IMPRESSION: Soft tissue injury. Interpreted by: Jaxon Britton MD Preliminary Report By: Jaxon Britton MD Electronically signed By Jaxon Britton MD Dictated Date: 02/20/2024 3:37:48 PM Prelim Date: 02/20/2024 3:38:46 PM Sign Date: 02/20/2024 3:38:46 PM Ordering Provider: [facility]10-17-2024 Note ORIGINAL HISTORY: Fall COMPARISON: No TECHNIQUE: Routine noncontrast head CT, with sagittal and coronal reconstructions. This exam was performed according to our departmental dose optimization program, and includes the following measures where applicable: automated exposure control, adjustment of the mAs and/or kVp according to patient size and/or exam, and an iterative reconstruction algorithm. FINDINGS: The ventricles and sulci are mildly enlarged. There are no abnormal intra or extra-axial fluid collections. There is mild irregular decreased attenuation in the cerebral white matter. Leon-white matter differentiation is maintained. The calvaria and the bones of the base of the skull are intact. IMPRESSION: Mild volume loss and small vessel ischemic disease. Interpreted by: Jaxon Britton MD Preliminary Report By: Jaxon Britton MD Electronically signed By Jaxon Britton MD Dictated Date: 02/20/2024 3:28:27 PM Prelim Date: 02/20/2024 3:29:22 PM Sign Date: 02/20/2024 3:29:22 PM [facility] App[facility]ments Appointment Date:05/16/2021 09:00:00 AM Scheduled Provider:RASHMI PRICE Location:[facility] Appointment Type:PC Wellness Medicare Future Scheduled Tests Radiology* XR Chest 2 Views (PA & Lateral) 04/08/21 [facility] TripsByTipsaluation + Plan note Future Appointments Appointment Date:04/26/2021 09:00:00 AM Scheduled Provider:RASHMI PRICE Location:[facility] Appointment Type:PC OV Appointment Date:05/16/2021 09:00:00 AM Scheduled Provider:RASHMI PRICE Location:[facility] Appointment Type:PC Wellness Medicare Future Scheduled Tests Radiology* XR Chest 2 Views (PA & Lateral) 04/08/21 [facility] TripsByTipsaluation + Plan note Future Appointments Appointment Date:05/01/2022 09:00:00 AM Scheduled Provider:RASHMI PRICE Location:[facility] Appointment Type:PC OV Future Scheduled Tests Laboratory* Prostate Specific Antigen 05/01/22 * Complete Blood Count 05/01/22 * Lipid Profile 05/01/22 * Complete Metabolic Panel 05/01/22 Radiology* XR Chest 2 Views (PA & Lateral) 04/08/21 [facility] TripsByTipsaluation + Plan note Future Appointments Appointment Date:05/01/2022 09:00:00 AM Scheduled Provider:RASHMI PRICE Location:[facility] Appointment Type:PC OV [facility] TripsByTipsaluation + Plan note Future Appointments Appointment Date:09/04/2022 08:00:00 AM Scheduled Provider:RASHMI PRICE Location:[facility] Appointment Type:PC OV Future Scheduled Tests Laboratory* Complete Blood Count 08/28/22 * Complete Metabolic Panel 08/28/22 [facility] Evaluation + Plan note Future Appointments Appointment Date:10/18/2022 09:00:00 AM Scheduled Provider:RASHMI PRICE Location:[facility] Appointment Type:PC OV [facility] Evaluation + Plan note Future Appointments Appointment Date:09/03/2023 12:15:00 PM Scheduled Provider:MIRACLE [facility] DO Location:[facility] Appointment Type:PC Office Procedure Appointment Date:10/09/2023 09:00:00 AM Scheduled Provider:RASHMI PRICE Location:[facility] Appointment Type:PC OV Future Scheduled Tests Laboratory* Prostate Specific Antigen 10/09/23 * Complete Blood Count 10/09/23 * Complete Blood Count 09/20/22 * CPK 09/20/22 * Lipid Profile 10/09/23 * Albumin/Creatinine Ratio, Random Urine 08/30/23 * Complete Metabolic Panel 10/09/23 * Complete Metabolic Panel 09/20/22 [facility] Evaluation + Plan note Future Appointments Appointment Date:01/09/2024 09:30:00 AM Scheduled Provider:RASHMI PRICE Location:[facility] Appointment Type: OV Future Scheduled Tests Laboratory* Prostate Specific Antigen 10/09/23 * Complete Blood Count 10/09/23 * Lipid Profile 10/09/23 * Albumin/Creatinine Ratio, Random Urine 10/09/23 * Complete Metabolic Panel 10/09/23 [facility] Evaluation + Plan note Future Appointments Appointment Date:04/09/2024 10:30:00 AM Scheduled Provider:RASHMI PRICE Location:[facility] Appointment Type:PC Wellness Medicare Future Scheduled Tests Laboratory* Prostate Specific Antigen 10/09/23 * Complete Blood Count 10/09/23 * Lipid Profile 10/09/23 * Albumin/Creatinine Ratio, Random Urine 10/09/23 * Complete Metabolic Panel 10/09/23 [facility] Evaluation + Plan note Future Appointments Appointment Date:04/09/2024 10:30:00 AM Scheduled Provider:RASHMI PRICE Location:[facility] Appointment Type:PC Wellness Medicare Future Scheduled Tests Laboratory* Ferritin 03/23/24 * Iron Level 03/23/24 * Complete Blood Count 03/23/24 * Albumin/Creatinine Ratio, Random Urine 10/09/23 [facility] Evaluation + Plan note Future Appointments Appointment Date:04/09/2024 10:30:00 AM Scheduled Provider:RASHMI PRICE Location:[facility] Appointment Type:PC Wellness Medicare Future Scheduled Tests Laboratory* Albumin/Creatinine Ratio, Random Urine 10/09/23 [facility] Evaluation + Plan note Future Appointments Appointment Date:07/08/2024 10:00:00 AM Scheduled Provider:RASHMI PRICE Location:[facility] Appointment Type:PC OV Future Scheduled Tests Laboratory* Albumin/Creatinine Ratio, Random Urine 10/09/23 [facility] Evaluation + Plan note Future Appointments Appointment Date:05/01/2024 09:30:00 AM Scheduled Provider:RASHMI PRICE Location:[facility] Appointment Type:PC OV Appointment Date:07/08/2024 10:00:00 AM Scheduled Provider:RASHMI PRICE Location:[facility] Appointment Type:PC OV [facility] Evaluation + Plan note Future Appointments Appointment Date:07/08/2024 10:00:00 AM Scheduled Provider:RASHMI PRICE Location:[facility] Appointment Type:PC OV Future Scheduled Tests Laboratory* Ferritin 05/01/24 * Iron Level 05/01/24 * Complete Blood Count 05/01/24 [facility] Evaluation + Plan note Future Appointments Appointment Date:07/08/2024 10:00:00 AM Scheduled Provider:RASHMI PRICE Location:[facility] Appointment Type:PC OV [facility] Evaluation + Plan note Future Appointments Appointment Date:10/08/2024 10:30:00 AM Scheduled Provider:RASHMI PRICE Location:[facility] Appointment Type:PC OV [facility] Evaluation + Plan note Future Appointments Appointment Date:01/06/2025 10:30:00 AM Scheduled Provider:RASHMI PRICE Location:[facility] Appointment Type:PC OV [facility] Hospital course Narrative No data available for this section [facility] Hospital Discharge instructions No data available for this section [facility] Hospital Discharge instructionsAdditional Instructions Discharge to [facility] 11/13/2024, [facility] PT/OT/ST, FWW. FWW: Patient is unsafe to use a cane and requires a walker for ambulation in the home and the community.[facility] Work Phone: Progress note No data available for this section [facility] Summary Purpose Family History Relationship Condition Age at Onset Recorded Date/T russell daughter Diabetes mellitus Unknown mother Hypertension Unknown Hyperlipidemia Unknown Malignant neoplasm of lung Unknown father Hyperlipidemia Unknown brother Hyperlipidemia Unknown No Family History Records Found Advance Directives No Advanced Directives Records Found Advance Directive Response Recorded Date/ Time Do you have a Healthcare Power of Jar Filler? 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) October 29, 2024 3:48pm Acute respiratory failure with hypoxia J une 2024 3:48pm Anxiety October 29, 2024 3:48 pm BPH (benign prostatic hyperplasia) October 29, 2024 3:48pm Cardiac arrest October 29, 2024 3:48 pm Debility October 29, 2024 3:48 pm Essential (primary) hypertension October 292024 3:48pm Glaucoma October 29, 2024 3:48 pm Hyperlipidemia, unspecified October 29, 2 025 3:48pm Hyponatremia October 29, 2024 3:48 pm Iron deficiency anemia October 29, 2024 3 :48pm Pneumonia October 29, 2024 3:48 pm 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 October 29, 2024 3:48pm Urinary retention October 29, 2024 3:48 pm Vascular dementia October 29, 2024 3:48 pm Additional Source Comments Care Team (unrecognized sect ion and content) Care Team Personnel Name: RASHMI PRICE Position: P4 Advanced Practice Nurse Med Service: Active Provider Member Role: Primary Care Physician Address: Address: [address] [place] [address] Name: Blessing Griffithsrnusrat Banegas PT Position: P3 Scheduling - Bee Tender Advanced Member Role: Other Name: BRENDEN FARMER MD Member Role: Insurance Agency Sales Manager Address: Address: [facility] [address] Name: [employer] Member Role: Portrait Painter Care Team Related Persons Name: JOEY ADAMSON Address: Home [address] [place] [address] [place], [place] [id number] Care Team Personnel Name: RASMHI PRICE Position: P4 Advanced Practice Nurse Member Role: Primary Care Physician Address: Address: [address] [place] [address] Name: Blessing Griffiths PT Position: P3 Scheduling - Bee Tender Advanced Member Role: Other Name: BRENDEN FARMER MD Member Role: Insurance Agency Sales Manager Address: Address: [facility] [address] Name: [employer] Member Role: Portrait Painter Care Team Related Persons Name: JOEY ADAMSON Address: Home [address] [place], [place] [id number] Patient Care team informatio n (unrecognized section and content) Team Status: Active Member Role/Relationship Status Dates Rashmi Price ELECTRICAL TEST TECHNICIAN, ELECTRICAL TEST TECHNICIAN-C Primary Care Provider Active Team Status: Inactive Member Role/Relationship Status Dates Rashmi Price ELECTRICAL TEST TECHNICIAN, ELECTRICAL TEST TECHNICIAN-C Primary Care Provider Active Start: October 29, 2024 End: November 13, 2024 Dr. Juan Reed MD Admit Provider Active Star t: October 29, 2024 End: November 13, 2024 Dr. Juan Reed MD Attending Provider Active Start: October 29, 2024 End: November 13, 2024 Dr. Juan Reed MD Referring Provider Active Start: October 29, 2024 End: November 13, 2024 (unrecognized sect ion and content) No Status Records FoundNo Status Records FoundNo Status Records FoundNo Status Records Found INFORMATION SOURCE (unrecogn ized section and content) DATE CREATED AUTHOR 10/13/2023 [facility] ([place]) DATE CREATED AUTHOR AUTHOR'S ORGANIZ ATION 10/30/2024 [facility] DATE CREATED AUTHOR AUTHOR'S ORGANIZ ATION 11/18/2024 [facility] DATE CREATED AUTHOR AUTHOR'S ORGANIZ ATION 11/21/2024 [facility] FOR RECORDS PERTAINING TO PATIENTS WHO ARE OR HAVE BEEN ENROLLED IN A CHEMICAL DEPENDENCY/SUBSTANCEABUSE PROGRAM, SOME INFORMATION MAY BE OMITTED. This clinical summary was aggregated from multiple sources. Caution should be exercised in using it in the provision of clinical care. This summary normalizes information from multiple sources, and as a consequence, information in this document may materially change the coding, format and clinical context of patient data. In addition, data may be omitted in some cases. CLINICAL DECISIONS SHOULD BE BASED ON THE PRIMARY CLINICAL RECORDS. [employer] provides no warranty or guarantee of the accuracy or completeness of information in this document.
[2024-11-23 09:23] LABS: AST(SGOT) 14 U/L (<=37); Alanine Aminotransfer ALT/SGPT 9 U/L (<=46); Albumin, Serum 4.0 g/dL (3.4-4.8); Alkaline Phosphatase 86 U/L (40-129); Anion Gap 11 (5-15); BUN 9 mg/dL (4-19); BUN/Creat Ratio 15.4 RATIO (10-20); Calcium,Total 9.6 mg/dL (7.6-11.0); Carbon Dioxide 25.0 mmol/L (21.0-32.0); Chloride 97 mmol/L (98-108); Cholesterol 119 mg/dL (<=200); Globulin 2.2 g/dL (2.2-4.2); Glucose 124 mg/dL (70-99); Low Density Lipoprotein Calc. 43 mg/dL; Potassium 3.9 mmol/L (3.3-5.1); T4 Total, Thyroxin 7.4 ug/dL (4.5-12.1); Triglycerides 73 mg/dL; Very Low Density Lipoprotein 15 mg/dL (5-40); cholesterol:hdl ratio screen 1.94
== END ==
LOC: OLS.BROOKB 04:00
PROVIDERS: PCP Nurse Practitioner Primary Care; Referring Provider Family Medicine; Visit Provider Family Medicine
DX: E11.9 Type 2 diabetes mellitus without complications (principal); E78.5 Hyperlipidemia, unspecified; Z79.899 Other long term (current) drug therapy
CPT/HCPCS: 36415; 80053; 80061; 83036; 84436; 84443

== ENCOUNTER → 2024-12-10 | Outpatient (REF) | payer MEDICARE, SELFPAY ==
[2024-12-10 17:48] LABS: Mucous, Urine 0 SEEN /hpf (<or=2+); Squamous Epithelial Cells - UA 0 SEEN /hpf (0-5)
--- OUTSIDE RECORDS SUMMARY | 2024-12-10 17:50 | XMS RPT_ITS | CCD ---
Author Organization [facility] [place] [facility] Care Team Providers Care Tail Worker Name Role Phone ALBERT SALES AND MARKETING ANALYSTIngridFORENSIC SOCIAL WORKER, RASHMI Primary Care Physician Tunde PTMakenzie Unavailable Unavailable BALTES SALES AND MARKETING ANALYST-FORENSIC SOCIAL WORKER, RASHMI Attending Unavailabl e BALTES SALES AND MARKETING ANALYST-FORENSIC SOCIAL WORKER, RASHMI Primary Care Unavailabl e YASMANI COULTER DO Attending Unavailable BALTES SALES AND MARKETING ANALYST-FORENSIC SOCIAL WORKER, RASHMI Primary Care Unavailabl e BALTES SALES AND MARKETING ANALYST-FORENSIC SOCIAL WORKER, RASHMI Attending Unavailabl e BALTES SALES AND MARKETING ANALYST-FORENSIC SOCIAL WORKER, RASHMI Primary Care Unavailabl e Guadalupe Holm Unavailable Unavailable BALTES SALES AND MARKETING ANALYST-FORENSIC SOCIAL WORKER, RASHMI Primary Care Unavailabl e BALTES SALES AND MARKETING ANALYST-FORENSIC SOCIAL WORKER, RASHMI Attending Unavailabl e BALTES SALES AND MARKETING ANALYST-FORENSIC SOCIAL WORKER, RASHMI Primary Care Unavailabl e BALTES SALES AND MARKETING ANALYST-FORENSIC SOCIAL WORKER, RASHMI Attending Unavailabl e BALTES SALES AND MARKETING ANALYST-FORENSIC SOCIAL WORKER, RASHMI Attending Unavailabl e BALTES SALES AND MARKETING ANALYST-FORENSIC SOCIAL WORKER, RASHMI Primary Care Unavailabl e BALTES SALES AND MARKETING ANALYST-FORENSIC SOCIAL WORKER, RASHMI Attending Unavailabl e BALTES SALES AND MARKETING ANALYST-FORENSIC SOCIAL WORKER, RASHMI Primary Care Unavailabl e BALTES SALES AND MARKETING ANALYST-FORENSIC SOCIAL WORKER, RASHMI Attending Unavailabl e BALTES SALES AND MARKETING ANALYST-FORENSIC SOCIAL WORKER, RASHMI Primary Care Unavailabl e BALTES SALES AND MARKETING ANALYST-FORENSIC SOCIAL WORKER, RASHMI Attending Unavailabl e BALTES SALES AND MARKETING ANALYST-FORENSIC SOCIAL WORKER, RASHMI Primary Care Unavailabl e BALTES SALES AND MARKETING ANALYST-FORENSIC SOCIAL WORKER, RASHMI Primary Care Unavailabl e BALTES SALES AND MARKETING ANALYST-FORENSIC SOCIAL WORKER, RASHMI Attending Unavailabl kirill HAHN MD, [facility] Consulting Unavailable BALTES SALES AND MARKETING ANALYST-FORENSIC SOCIAL WORKER, RASHMI Primary Care Unavailabl JAMIE Morgan MD Attending Unavailable BALTES SALES AND MARKETING ANALYST-FORENSIC SOCIAL WORKER, RASHMI Primary Care Unavailabl e NELIDA GROVE DO Attending Unavailable BALTES SALES AND MARKETING ANALYST-FORENSIC SOCIAL WORKER, RASHMI Attending Unavailabl e BALTES SALES AND MARKETING ANALYST-FORENSIC SOCIAL WORKER, RASHMI Primary Care Unavailabl e BALTES SALES AND MARKETING ANALYST-FORENSIC SOCIAL WORKER, RASHMI Primary Care Unavailabl e JOEL SALES AND MARKETING ANALYST-FORENSIC SOCIAL WORKER, KATI Attending Unavailab le ALBERT SALES AND MARKETING ANALYST-FORENSIC SOCIAL WORKER, RASHMI Attending Unavailabl e ALBERT SALES AND MARKETING ANALYST-FORENSIC SOCIAL WORKER, RASHMI Primary Care Unavailyessica Price PAVING FOREMAN-C, Rashmi Primary Care Provider [phone] Derek TREVIZO, Dr. Juan Lacey Admit Provider Derek TREVIZO, Dr. Juan Lacey Attending Provider Derek TREVIZO, Dr. Juan Lacey Referring Provider [phone] Yasmani Braswell Attending Unavailable Yasmani Braswell Referring Unavailable Albert PAVING FOREMAN, Rashmi Primary Care Unavailable Albert PAVING FOREMAN, Rashmi Primary Care Unavailable Juan Reed Chi Admitting Unavailable Juan Reed Chi Attending Unavailable Juan Reed Chi Referring Unavailable KUN ESPINAL MD Consulting Unavailable JOHAN TREVIZO, ROSI Attending Unavailable JOVANI TREVIZO, JUDIT Admitting Unavailable ALBERT ROCKWELL-ANGIE, RASHMI Primary Care Sebastina HAHN MD, JUDIT Consulting Unavailable DAYNA TREVIZO, LILLY Bernal Consulting Unavailable Medications Current Medications Medication Drug Class(es) [...] increase, # 200 tab(s), 3 Refill(s), Pharmacy: [facility]/pharmacy #[id number], Hypertension, 171, cm, 05/01/24 15:45:00 EST, Height, kg, 05/01/24 15:45:00 EST, Dosing Weight Start Date: 05/01/24 Stop Date: 06/05/25 Status: Ordered Quantity: 200.0 Unit: tab(s) Repeat number: 4 Indications: Essential (primary) hypertension; Start: 05-15-2023 amLODIPine 5 m g oral tablet Dose : 5 mg = 1 tab(s), Oral, qDay, # 90 tab(s), 3 Refill(s), Pharmacy: [facility]/pharmacy #[id number], Hypertension, 172, cm, 04/19/23 8:24:00 EST, Height, kg, 04/19/23 8:24:00 EST, Dosing Weight Start Date: 05/15/23 Status: Ordered Start: 01-30-2022 amLODIPine 5 m g oral tablet Dose : 5 mg = 1 tab(s), Oral, qDay, # 90 tab(s), 3 Refill(s), Pharmacy: [facility], Hypertension, 172.7, cm, 01/30/22 8:54:00 [...] 0 Refill(s), 04/18/21 8:21:00 EST, Pharmacy: [facility] 175.3, cm, 04/08/21 8:08:00 [...] qDay, # 90 tab(s), 3 Refill(s), Pharmacy: [facility], Atherosclerosis of aorta Type 2 [...] qDay, # 90 tab(s), 3 Refill(s), Pharmacy: [facility]/pharmacy #[id number], Hyperlipidemia Type 2 diabetes mellitus, 172, cm, 04/19/23 8:24:00 EST, Height, kg, 04/19/23 8:24:00 EST, Dosing Weight Start Date: 05/15/23 Status: Ordered Start: 01-30-2022 atorvastatin 8 0 mg oral tablet Dose : 80 mg = 1 tab(s), Oral, qHS, # 90 tab(s), 3 Refill(s), Pharmacy: [facility], Hypercholesteremia, 172.7, cm, 01/30/22 8:54:00 EDT, Height, kg, 01/30/22 8:54:00 EDT, Dosing Weight Start Date: 01/30/22 Status: Ordered Start: 03-11-2019 End: 11-11-2024 atorvastatin 80 mg oral tabl et Dose : 80 mg = 1 tab(s), Oral, qHS, # 90 tab(s), 3 Refill(s), Pharmacy: [facility], Hypercholesteremia, 172.7, cm, 01/06/20 10:26:00 [...] tab(s), 0 Refill(s), 04/13/21 8:21:00 EST, [facility] [address] 175.3, cm, 04/08/21 8:08:00 [...] cap(s), 0 Refill(s), 04/18/21 11:21:00 EST, [facility] [address] Cough, 172.7, cm, 04/11/21 [...] qDay, # 90 tab(s), 0 Refill(s), [id number], Iron deficiency anemia, 172.7, cm, 01/09/24 [...] qDay, # 16 gram(s), 2 Refill(s), [id number], Seasonal allergies, 172, cm, 04/19/23 8:24:00 EST, Height, kg, 04/19/23 8:24:00 EST, Dosing Weight Start Date: 05/15/23 Status: Ordered Quantity: 16.0 Unit: g Repeat number: 3 Indications: Other seasonal allergic rhinitis; Start: 03-02-2019 fluticasone 50 mcg/inh NASAL spray 50 mcg, Nasal, qDay, # 16 gram(s), 2 Refill(s), Pharmacy: [facility] [place] [address], Seasonal allergies Start Date: 03/02/19 Status: Ordered fluticasone 50 mcg/inh NASAL spray (2 sources) Start: 03-02-2019 fluticasone 50 mcg/inh NASAL spray 50 mcg, Nasal, qDay, # 16 gram(s), 2 Refill(s), Pharmacy: [facility] Seasonal allergies Start Date: 03/02/19 Status: Ordered [...] qDay, # 90 tab(s), 3 Refill(s), Pharmacy: [facility]/pharmacy #[id number], Hypertension, 172, cm, 04/19/23 8:24:00 EST, Height, kg, 04/19/23 8:24:00 EST, Dosing Weight Start Date: 05/15/23 Status: Ordered Quantity: 90.0 Unit: tab(s) Repeat number: 4 Indications: Essential (primary) hypertension; Start: 09-04-2022 lisinopril 40 mg oral tablet Dose : 40 mg = 1 tab(s), Oral, qDay, # 90 tab(s), 3 Refill(s), Pharmacy: [facility], Hypertension, 172.7, cm, 09/04/22 7:49:00 EDT, Height, kg, 09/04/22 7:49:00 EDT, Dosing Weight Start Date: 09/04/22 Status: Ordered Start: 10-06-2021 lisinopril 40 mg oral tablet Dose : 40 mg = 1 tab(s), Oral, qDay, # 90 tab(s), 3 Refill(s), Pharmacy: [facility], Hypertension, 173.99, cm, 10/06/21 7:57:00 EDT, Height, kg, 10/06/21 7:57:00 EDT, Dosing Weight Start Date: 10/06/21 Status: Ordered Start: 04-06-2021 lisinopril 10 mg oral tablet Dose : 10 mg = 1 tab(s), Oral, qDay, no refills sent with last script - thank you!, # 90 tab(s), 3 Refill(s), Pharmacy: [facility], Hypertension, 172.7, cm, 01/06/20 10:26:00 [...] qDay, # 360 tab(s), 3 Refill(s), Pharmacy: [facility]/pharmacy #[id number], Type 2 diabetes mellitus, 169.5, [...] qDay, # 360 tab(s), 3 Refill(s), Pharmacy: [facility]/pharmacy #[id number], Type 2 diabetes mellitus, 171, cm, 07/09/23 6:57:00 EST, Height, kg, 07/09/23 6:57:00 EST, Dosing Weight Start Date: 07/09/23 Stop Date: 07/03/24 Status: Ordered Start: 05-29-2022 End: 11-25-2022 metFORMIN 500 mg oral tablet EXTENDED RELEASE Dose : 2,000 mg = 4 tab(s), Oral, qDay, # 360 tab(s), 3 Refill(s), Pharmacy: [facility], Type 2 diabetes mellitus, 172.7, cm, 09/04/22 7:49:00 EDT, Height, kg, 09/04/22 7:49:00 EDT, Dosing Weight Start Date: 09/04/22 Status: Ordered Start: 01-30-2022 End: 04-30-2022 metFORMIN 500 mg oral tablet EXTENDED RELEASE Dose : 2,000 mg = 4 tab(s), Oral, qDay, # 360 tab(s), 0 Refill(s), Pharmacy: [facility], Type 2 diabetes mellitus, 172.7, [...] Daily, # 90 tab(s), 3 Refill(s), Pharmacy: [facility]/pharmacy #[id number], 172, cm, 04/19/23 8:24:00 EST, Height, kg, 04/19/23 8:24:00 EST, Dosing Weight Start Date: 05/15/23 Status: Ordered Start: 09-04-2022 pioglitazone 3 0 mg oral tablet Dose : 30 mg = 1 tab(s), Oral, Daily, # 90 tab(s), 3 Refill(s), Pharmacy: [facility], 172.7, cm, 09/04/22 7:49:00 EDT, Height, kg, 09/04/22 7:49:00 EDT, Dosing Weight Start Date: 09/04/22 Status: Ordered Start: 07-17-2022 pioglitazone 3 0 mg oral tablet Dose : 30 mg = 1 tab(s), Oral, Daily, # 90 tab(s), 0 Refill(s), Pharmacy: [facility], 173.99, cm, 07/17/22 7:31:00 EDT, [...] qDay, # 90 tab(s), 0 Refill(s), Pharmacy: [facility]/pharmacy #[id number], Anxiety, 170.2, cm, 10/08/24 10:32:00 [...] tab(s), 1 Refill(s), 10/09/22 7:57:00 EDT, Pharmacy: [facility], Onychomycosis, 173.99, cm, 07/17/22 7:31:00 [...] pain, # 100 gram(s), 0 Refill(s), Pharmacy: [facility]/pharmacy #[id number], Gel, 171, cm, 08/08/23 8:28:00 [...] dermatophyte ; Translations: [Tinea unguium] Episodic Other aftercare (1 source) Other ocean transportation intermediary (current) drug therapy; Translations: [Other ocean transportation intermediary (current) drug therapy] Onset: 11-23-2024 Episodic Other connective tissue disease (20 sources) [...] source) pt will see Dr. Coulter at [facility], Unclassified (1 source) Other toxic encephalopathy; Translations: [...] Profile (BMP )on 12-25-2024 BUN Normal 4-19 [facility] Comment on above: Result Comment: Canc elled via OM: Order cancelled - Patient discharged Performed By: #### L 501.080 #### [facility] [address] [place], [address] BUN/CRE Normal 10-20 [facility] Comment on above: Result Comment: Canc elled via OM: Order cancelled - Patient discharged Performed By: #### L 501.080 #### [facility] [address] [place], [address] Calcium Normal 7.6-11.0 [facility] Comment on above: Result Comment: Canc elled via OM: Order cancelled - Patient discharged Performed By: #### L 501.080 #### [facility] [address] [place], [address] CL Normal 98-108 [facility] Comment on above: Result Comment: Canc elled via OM: Order cancelled - Patient discharged Performed By: #### L 501.080 #### [facility] [address] [place], [address] CO2 Normal 21.0-32.0 [facility] Comment on above: Result Comment: Canc elled via OM: Order cancelled - Patient discharged Performed By: #### L 501.080 #### [facility] [address] [place], [address] CREAT,SERUM Normal 0.70-1.20 [facility] Comment on above: Result Comment: Canc elled via OM: Order cancelled - Patient discharged Performed By: #### L 501.080 #### [facility] [address] [place], [address] eGFR Normal >60 [facility] Comment on above: Result Comment: Canc elled via OM: Order cancelled - Patient discharged Performed By: #### L 501.080 #### [facility] [address] [place], [address] GAP Normal 5-15 [facility] Comment on above: Result Comment: Canc elled via OM: Order cancelled - Patient discharged Performed By: #### L 501.080 #### [facility] [address] [place], [address] GLU Normal 70-99 [facility] Comment on above: Result Comment: Canc elled via OM: Order cancelled - Patient discharged Performed By: #### L 501.080 #### [facility] [address] [place], [address] Potassium Normal 3.3-5.1 [facility] Comment on above: Result Comment: Canc elled via OM: Order cancelled - Patient discharged Performed By: #### L 501.080 #### [facility] [address] [place], [address] Basic Metabolic Profile (BMP) Normal 133-145 [facility] Comment on above: Result Comment: Canc elled via OM: Order cancelled - Patient discharged Performed By: #### L 501.080 #### [facility] [address] [place], [address] CBC W/Diff, Automatedon 08- Absolute Neut Normal 2.0-7.7 [facility] Comment on above: Result Comment: Canc elled via OM: Order cancelled - Patient discharged Performed By: #### L 501.080 #### [facility] [address] [place], [address] HCT Normal 40-54 [facility] Comment on above: Result Comment: Canc elled via OM: Order cancelled - Patient discharged Performed By: #### L 501.080 #### [facility] [address] [place], [address] HGB Normal 13.0-16.5 [facility] Comment on above: Result Comment: Canc elled via OM: Order cancelled - Patient discharged Performed By: #### L 501.080 #### [facility] [address] [place], [address] MCH Normal 27.0-32.0 [facility] Comment on above: Result Comment: Canc elled via OM: Order cancelled - Patient discharged Performed By: #### L 501.080 #### [facility] [address] [place], [address] MCHC Normal 32-36 [facility] Comment on above: Result Comment: Canc elled via OM: Order cancelled - Patient discharged Performed By: #### L 501.080 #### [facility] [address] [place], [address] MCV Normal 80-94 [facility] Comment on above: Result Comment: Canc elled via OM: Order cancelled - Patient discharged Performed By: #### L 501.080 #### [facility] [address] [place], [address] NEUT% Normal 47-70 [facility] Comment on above: Result Comment: Canc elled via OM: Order cancelled - Patient discharged Performed By: #### L 501.080 #### [facility] [address] [place], [address] PLT Normal 150-450 [facility] Comment on above: Result Comment: Canc elled via OM: Order cancelled - Patient discharged Performed By: #### L 501.080 #### [facility] [address] [place], [address] RBC Normal 4.6-6.2 [facility] Comment on above: Result Comment: Canc elled via OM: Order cancelled - Patient discharged Performed By: #### L 501.080 #### [facility] [address] [place], [address] RDW CV Normal 11.6-14.6 [facility] Comment on above: Result Comment: Canc elled via OM: Order cancelled - Patient discharged Performed By: #### L 501.080 #### [facility] [address] [place], [address] RDW SD Normal 35.1-43.9 [facility] Comment on above: Result Comment: Canc elled via OM: Order cancelled - Patient discharged Performed By: #### L 501.080 #### [facility] [address] [place], [address] WBC Normal 4.4-11.0 [facility] Comment on above: Result Comment: Canc elled via OM: Order cancelled - Patient discharged Performed By: #### L 501.080 #### [facility] [address] [place], [address] Basic Metabolic Profile (BMP )on 12-18-2024 BUN Normal 4-19 [facility] Comment on above: Result Comment: Canc elled via OM: Order cancelled - Patient discharged Performed By: #### L 501.080 #### [facility] [address] [place], [address] BUN/CRE Normal 10-20 [facility] Comment on above: Result Comment: Canc elled via OM: Order cancelled - Patient discharged Performed By: #### L 501.080 #### [facility] [address] [place], [address] Calcium Normal 7.6-11.0 [facility] Comment on above: Result Comment: Canc elled via OM: Order cancelled - Patient discharged Performed By: #### L 501.080 #### [facility] [address] [place], [address] CL Normal 98-108 [facility] Comment on above: Result Comment: Canc elled via OM: Order cancelled - Patient discharged Performed By: #### L 501.080 #### [facility] [address] [place], [address] CO2 Normal 21.0-32.0 [facility] Comment on above: Result Comment: Canc elled via OM: Order cancelled - Patient discharged Performed By: #### L 501.080 #### [facility] [address] [place], [address] CREAT,SERUM Normal 0.70-1.20 [facility] Comment on above: Result Comment: Canc elled via OM: Order cancelled - Patient discharged Performed By: #### L 501.080 #### [facility] [address] [place], [address] eGFR Normal >60 [facility] Comment on above: Result Comment: Canc elled via OM: Order cancelled - Patient discharged Performed By: #### L 501.080 #### [facility] [address] [place], [address] GAP Normal 5-15 [facility] Comment on above: Result Comment: Canc elled via OM: Order cancelled - Patient discharged Performed By: #### L 501.080 #### [facility] [address] [place], [address] GLU Normal 70-99 [facility] Comment on above: Result Comment: Canc elled via OM: Order cancelled - Patient discharged Performed By: #### L 501.080 #### [facility] [address] [place], [address] Potassium Normal 3.3-5.1 [facility] Comment on above: Result Comment: Canc elled via OM: Order cancelled - Patient discharged Performed By: #### L 501.080 #### [facility] [address] [place], [address] Basic Metabolic Profile (BMP) Normal 133-145 [facility] Comment on above: Result Comment: Canc elled via OM: Order cancelled - Patient discharged Performed By: #### L 501.080 #### [facility] [address] [place], [address] CBC W/Diff, Automatedon 12-04 Absolute Neut Normal 2.0-7.7 [facility] Comment on above: Result Comment: Canc elled via OM: Order cancelled - Patient discharged Performed By: #### L 501.080 #### [facility] [address] [place], [address] HCT Normal 40-54 [facility] Comment on above: Result Comment: Canc elled via OM: Order cancelled - Patient discharged Performed By: #### L 501.080 #### [facility] [address] [place], [address] HGB Normal 13.0-16.5 [facility] Comment on above: Result Comment: Canc elled via OM: Order cancelled - Patient discharged Performed By: #### L 501.080 #### [facility] [address] [place], [address] MCH Normal 27.0-32.0 [facility] Comment on above: Result Comment: Canc elled via OM: Order cancelled - Patient discharged Performed By: #### L 501.080 #### [facility] [address] [place], [address] MCHC Normal 32-36 [facility] Comment on above: Result Comment: Canc elled via OM: Order cancelled - Patient discharged Performed By: #### L 501.080 #### [facility] [address] [place], [address] MCV Normal 80-94 [facility] Comment on above: Result Comment: Canc elled via OM: Order cancelled - Patient discharged Performed By: #### L 501.080 #### [facility] [address] [place], [address] NEUT% Normal 47-70 [facility] Comment on above: Result Comment: Canc elled via OM: Order cancelled - Patient discharged Performed By: #### L 501.080 #### [facility] [address] [place], [address] PLT Normal 150-450 [facility] Comment on above: Result Comment: Canc elled via OM: Order cancelled - Patient discharged Performed By: #### L 501.080 #### [facility] [address] [place], [address] RBC Normal 4.6-6.2 [facility] Comment on above: Result Comment: Canc elled via OM: Order cancelled - Patient discharged Performed By: #### L 501.080 #### [facility] [address] [place], [address] RDW CV Normal 11.6-14.6 [facility] Comment on above: Result Comment: Canc elled via OM: Order cancelled - Patient discharged Performed By: #### L 501.080 #### [facility] [address] [place], [address] RDW SD Normal 35.1-43.9 [facility] Comment on above: Result Comment: Canc elled via OM: Order cancelled - Patient discharged Performed By: #### L 501.080 #### [facility] [address] [place], [address] WBC Normal 4.4-11.0 [facility] Comment on above: Result Comment: Canc elled via OM: Order cancelled - Patient discharged Performed By: #### L 501.080 #### [facility] [address] [place], [address] Basic Metabolic Profile (BMP )on 12-11-2024 BUN Normal 4-19 [facility] Comment on above: Result Comment: Canc elled via OM: Order cancelled - Patient discharged Performed By: #### L 501.080 #### [facility] [address] [place], [address] BUN/CRE Normal 10-20 [facility] Comment on above: Result Comment: Canc elled via OM: Order cancelled - Patient discharged Performed By: #### L 501.080 #### [facility] [address] [place], [address] Calcium Normal 7.6-11.0 [facility] Comment on above: Result Comment: Canc elled via OM: Order cancelled - Patient discharged Performed By: #### L 501.080 #### [facility] [address] [place], [address] CL Normal 98-108 [facility] Comment on above: Result Comment: Canc elled via OM: Order cancelled - Patient discharged Performed By: #### L 501.080 #### [facility] [address] [place], [address] CO2 Normal 21.0-32.0 [facility] Comment on above: Result Comment: Canc elled via OM: Order cancelled - Patient discharged Performed By: #### L 501.080 #### [facility] [address] [place], [address] CREAT,SERUM Normal 0.70-1.20 [facility] Comment on above: Result Comment: Canc elled via OM: Order cancelled - Patient discharged Performed By: #### L 501.080 #### [facility] [address] [place], [address] eGFR Normal >60 [facility] Comment on above: Result Comment: Canc elled via OM: Order cancelled - Patient discharged Performed By: #### L 501.080 #### [facility] [address] [place], [address] GAP Normal 5-15 [facility] Comment on above: Result Comment: Canc elled via OM: Order cancelled - Patient discharged Performed By: #### L 501.080 #### [facility] [address] [place], [address] GLU Normal 70-99 [facility] Comment on above: Result Comment: Canc elled via OM: Order cancelled - Patient discharged Performed By: #### L 501.080 #### [facility] [address] [place], [address] Potassium Normal 3.3-5.1 [facility] Comment on above: Result Comment: Canc elled via OM: Order cancelled - Patient discharged Performed By: #### L 501.080 #### [facility] [address] [place], [address] Basic Metabolic Profile (BMP) Normal 133-145 [facility] Comment on above: Result Comment: Canc elled via OM: Order cancelled - Patient discharged Performed By: #### L 501.080 #### [facility] [address] [place], [address] CBC W/Diff, Automatedon 08-0 -2024 Absolute Neut Normal 2.0-7.7 [facility] Comment on above: Result Comment: Canc elled via OM: Order cancelled - Patient discharged Performed By: #### L 501.080 #### [facility] [address] [place], [address] HCT Normal 40-54 [facility] Comment on above: Result Comment: Canc elled via OM: Order cancelled - Patient discharged Performed By: #### L 501.080 #### [facility] [address] [place], [address] HGB Normal 13.0-16.5 [facility] Comment on above: Result Comment: Canc elled via OM: Order cancelled - Patient discharged Performed By: #### L 501.080 #### [facility] [address] [place], [address] MCH Normal 27.0-32.0 [facility] Comment on above: Result Comment: Canc elled via OM: Order cancelled - Patient discharged Performed By: #### L 501.080 #### [facility] [address] [place], [address] MCHC Normal 32-36 [facility] Comment on above: Result Comment: Canc elled via OM: Order cancelled - Patient discharged Performed By: #### L 501.080 #### [facility] [address] [place], [address] MCV Normal 80-94 [facility] Comment on above: Result Comment: Canc elled via OM: Order cancelled - Patient discharged Performed By: #### L 501.080 #### [facility] [address] [place], [address] NEUT% Normal 47-70 [facility] Comment on above: Result Comment: Canc elled via OM: Order cancelled - Patient discharged Performed By: #### L 501.080 #### [facility] [address] [place], [address] PLT Normal 150-450 [facility] Comment on above: Result Comment: Canc elled via OM: Order cancelled - Patient discharged Performed By: #### L 501.080 #### [facility] [address] [place], [address] RBC Normal 4.6-6.2 [facility] Comment on above: Result Comment: Canc elled via OM: Order cancelled - Patient discharged Performed By: #### L 501.080 #### [facility] [address] [place], [address] RDW CV Normal 11.6-14.6 [facility] Comment on above: Result Comment: Canc elled via OM: Order cancelled - Patient discharged Performed By: #### L 501.080 #### [facility] [address] [place], [address] RDW SD Normal 35.1-43.9 [facility] Comment on above: Result Comment: Canc elled via OM: Order cancelled - Patient discharged Performed By: #### L 501.080 #### [facility] [address] [place], [address] WBC Normal 4.4-11.0 [facility] Comment on above: Result Comment: Canc elled via OM: Order cancelled - Patient discharged Performed By: #### L 501.080 #### [facility] [address] [place], [address] Basic Metabolic Profile (BMP )on 12-04-2024 BUN Normal 4-19 [facility] Comment on above: Result Comment: Canc elled via OM: Order cancelled - Patient discharged Performed By: #### L 400.0001, M100.2200 #### [facility] [address] [place], [address] BUN/CRE Normal 10-20 [facility] Comment on above: Result Comment: Canc elled via OM: Order cancelled - Patient discharged Performed By: #### L 400.0001, M100.2200 #### [facility] [address] [place], [address] Calcium Normal 7.6-11.0 [facility] Comment on above: Result Comment: Canc elled via OM: Order cancelled - Patient discharged Performed By: #### L 400.0001, M100.2200 #### [facility] [address] [place], [address] CL Normal 98-108 [facility] Comment on above: Result Comment: Canc elled via OM: Order cancelled - Patient discharged Performed By: #### L 400.0001, M100.0 #### [facility] [address] [place], [address] CO2 Normal 21.0-32.0 [facility] Comment on above: Result Comment: Canc elled via OM: Order cancelled - Patient discharged Performed By: #### L 400.0001, M100.2200 #### [facility] [address] [place], [address] CREAT,SERUM Normal 0.70-1.20 [facility] Comment on above: Result Comment: Canc elled via OM: Order cancelled - Patient discharged Performed By: #### L 400.0001, M100.2200 #### [facility] [address] [place], [address] eGFR Normal >60 [facility] Comment on above: Result Comment: Canc elled via OM: Order cancelled - Patient discharged Performed By: #### L 400.0001, M100.2200 #### [facility] [address] [place], [address] GAP Normal 5-15 [facility] Comment on above: Result Comment: Canc elled via OM: Order cancelled - Patient discharged Performed By: #### L 400.0001, M100.2200 #### [facility] [address] [place], [address] GLU Normal 70-99 [facility] Comment on above: Result Comment: Canc elled via OM: Order cancelled - Patient discharged Performed By: #### L 400.0001, M100.0 #### [facility] [address] [place], [address] Potassium Normal 3.3-5.1 [facility] Comment on above: Result Comment: Canc elled via OM: Order cancelled - Patient discharged Performed By: #### L 400.0001, M100.0 #### [facility] [address] [place], [address] Basic Metabolic Profile (BMP) Normal 133-145 [facility] Comment on above: Result Comment: Canc elled via OM: Order cancelled - Patient discharged Performed By: #### L 400.0001, M100.2200 #### [facility] [address] [place], [address] CBC W/Diff, Automatedon 08-0 Absolute Neut Normal 2.0-7.7 [facility] Comment on above: Result Comment: Canc elled via OM: Order cancelled - Patient discharged Performed By: #### L 400.0001, M100.2200 #### [facility] [address] [place], [address] HCT Normal 40-54 [facility] Comment on above: Result Comment: Canc elled via OM: Order cancelled - Patient discharged Performed By: #### L 400.0001, M100.0 #### [facility] [address] [place], [address] HGB Normal 13.0-16.5 [facility] Comment on above: Result Comment: Canc elled via OM: Order cancelled - Patient discharged Performed By: #### L 400.0001, M100.2200 #### [facility] [address] [place], [address] MCH Normal 27.0-32.0 [facility] Comment on above: Result Comment: Canc elled via OM: Order cancelled - Patient discharged Performed By: #### L 400.0001, M100.0 #### [facility] [address] [place], [address] MCHC Normal 32-36 [facility] Comment on above: Result Comment: Canc elled via OM: Order cancelled - Patient discharged Performed By: #### L 400.0001, M100.0 #### [facility] [address] [place], [address] MCV Normal 80-94 [facility] Comment on above: Result Comment: Canc elled via OM: Order cancelled - Patient discharged Performed By: #### L 400.0001, M100.2200 #### [facility] [address] [place], [address] NEUT% Normal 47-70 [facility] Comment on above: Result Comment: Canc elled via OM: Order cancelled - Patient discharged Performed By: #### L 400.0001, M100.2200 #### [facility] [address] [place], [address] PLT Normal 150-450 [facility] Comment on above: Result Comment: Canc elled via OM: Order cancelled - Patient discharged Performed By: #### L 400.0001, M100.2200 #### [facility] [address] [place], [address] RBC Normal 4.6-6.2 [facility] Comment on above: Result Comment: Canc elled via OM: Order cancelled - Patient discharged Performed By: #### L 400.0001, M100.2200 #### [facility] [address] [place], [address] RDW CV Normal 11.6-14.6 [facility] Comment on above: Result Comment: Canc elled via OM: Order cancelled - Patient discharged Performed By: #### L 400.0001, M100.2200 #### [facility] [address] [place], [address] RDW SD Normal 35.1-43.9 [facility] Comment on above: Result Comment: Canc elled via OM: Order cancelled - Patient discharged Performed By: #### L 400.0001, M100.2200 #### [facility] [address] [place], [address] WBC Normal 4.4-11.0 [facility] Comment on above: Result Comment: Canc elled via OM: Order cancelled - Patient discharged Performed By: #### L 400.0001, M100.2200 #### [facility] [address] [place], [address] Basic Metabolic Profile (BMP )on 11-27-2024 BUN Normal 4-19 [facility] Comment on above: Result Comment: Canc elled via OM: Order cancelled - Patient discharged Performed By: #### L 501.080 #### [facility] [address] [place], [address] BUN/CRE Normal 10-20 [facility] Comment on above: Result Comment: Canc elled via OM: Order cancelled - Patient discharged Performed By: #### L 501.080 #### [facility] [address] [place], [address] Calcium Normal 7.6-11.0 [facility] Comment on above: Result Comment: Canc elled via OM: Order cancelled - Patient discharged Performed By: #### L 501.080 #### [facility] [address] [place], [address] CL Normal 98-108 [facility] Comment on above: Result Comment: Canc elled via OM: Order cancelled - Patient discharged Performed By: #### L 501.080 #### [facility] [address] [place], [address] CO2 Normal 21.0-32.0 [facility] Comment on above: Result Comment: Canc elled via OM: Order cancelled - Patient discharged Performed By: #### L 501.080 #### [facility] [address] [place], [address] CREAT,SERUM Normal 0.70-1.20 [facility] Comment on above: Result Comment: Canc elled via OM: Order cancelled - Patient discharged Performed By: #### L 501.080 #### [facility] [address] [place], [address] eGFR Normal >60 [facility] Comment on above: Result Comment: Canc elled via OM: Order cancelled - Patient discharged Performed By: #### L 501.080 #### [facility] [address] [place], [address] GAP Normal 5-15 [facility] Comment on above: Result Comment: Canc elled via OM: Order cancelled - Patient discharged Performed By: #### L 501.080 #### [facility] [address] [place], [address] GLU Normal 70-99 [facility] Comment on above: Result Comment: Canc elled via OM: Order cancelled - Patient discharged Performed By: #### L 501.080 #### [facility] [address] [place], [address] Potassium Normal 3.3-5.1 [facility] Comment on above: Result Comment: Canc elled via OM: Order cancelled - Patient discharged Performed By: #### L 501.080 #### [facility] [address] [place], [address] Basic Metabolic Profile (BMP) Normal 133-145 [facility] Comment on above: Result Comment: Canc elled via OM: Order cancelled - Patient discharged Performed By: #### L 501.080 #### [facility] [address] [place], [address] CBC W/Diff, Automatedon 07-2 Absolute Neut Normal 2.0-7.7 [facility] Comment on above: Result Comment: Canc elled via OM: Order cancelled - Patient discharged Performed By: #### L 501.080 #### [facility] [address] [place], [address] HCT Normal 40-54 [facility] Comment on above: Result Comment: Canc elled via OM: Order cancelled - Patient discharged Performed By: #### L 501.080 #### [facility] [address] [place], [address] HGB Normal 13.0-16.5 [facility] Comment on above: Result Comment: Canc elled via OM: Order cancelled - Patient discharged Performed By: #### L 501.080 #### [facility] [address] [place], [address] MCH Normal 27.0-32.0 [facility] Comment on above: Result Comment: Canc elled via OM: Order cancelled - Patient discharged Performed By: #### L 501.080 #### [facility] [address] [place], [address] MCHC Normal 32-36 [facility] Comment on above: Result Comment: Canc elled via OM: Order cancelled - Patient discharged Performed By: #### L 501.080 #### [facility] [address] [place], [address] MCV Normal 80-94 [facility] Comment on above: Result Comment: Canc elled via OM: Order cancelled - Patient discharged Performed By: #### L 501.080 #### [facility] [address] [place], [address] NEUT% Normal 47-70 [facility] Comment on above: Result Comment: Canc elled via OM: Order cancelled - Patient discharged Performed By: #### L 501.080 #### [facility] [address] [place], [address] PLT Normal 150-450 [facility] Comment on above: Result Comment: Canc elled via OM: Order cancelled - Patient discharged Performed By: #### L 501.080 #### [facility] [address] [place], [address] RBC Normal 4.6-6.2 [facility] Comment on above: Result Comment: Canc elled via OM: Order cancelled - Patient discharged Performed By: #### L 501.080 #### [facility] [address] [place], [address] RDW CV Normal 11.6-14.6 [facility] Comment on above: Result Comment: Canc elled via OM: Order cancelled - Patient discharged Performed By: #### L 501.080 #### [facility] [address] [place], [address] RDW SD Normal 35.1-43.9 [facility] Comment on above: Result Comment: Canc elled via OM: Order cancelled - Patient discharged Performed By: #### L 501.080 #### [facility] [address] [place], [address] WBC Normal 4.4-11.0 [facility] Comment on above: Result Comment: Canc elled via OM: Order cancelled - Patient discharged Performed By: #### L 501.080 #### [facility] [address] [place], [address] Basic Metabolic Profile (BMP )on 11-20-2024 BUN Normal 4-19 [facility] Comment on above: Result Comment: Canc elled via OM: Order cancelled - Patient discharged Performed By: #### L 501.080 #### [facility] [address] [place], [address] BUN/CRE Normal 10-20 [facility] Comment on above: Result Comment: Canc elled via OM: Order cancelled - Patient discharged Performed By: #### L 501.080 #### [facility] [address] [place], [address] Calcium Normal 7.6-11.0 [facility] Comment on above: Result Comment: Canc elled via OM: Order cancelled - Patient discharged Performed By: #### L 501.080 #### [facility] [address] [place], [address] CL Normal 98-108 [facility] Comment on above: Result Comment: Canc elled via OM: Order cancelled - Patient discharged Performed By: #### L 501.080 #### [facility] [address] [place], [address] CO2 Normal 21.0-32.0 [facility] Comment on above: Result Comment: Canc elled via OM: Order cancelled - Patient discharged Performed By: #### L 501.080 #### [facility] [address] [place], [address] CREAT,SERUM Normal 0.70-1.20 [facility] Comment on above: Result Comment: Canc elled via OM: Order cancelled - Patient discharged Performed By: #### L 501.080 #### [facility] [address] [place], [address] eGFR Normal >60 [facility] Comment on above: Result Comment: Canc elled via OM: Order cancelled - Patient discharged Performed By: #### L 501.080 #### [facility] [address] [place], [address] GAP Normal 5-15 [facility] Comment on above: Result Comment: Canc elled via OM: Order cancelled - Patient discharged Performed By: #### L 501.080 #### [facility] [address] [place], [address] GLU Normal 70-99 [facility] Comment on above: Result Comment: Canc elled via OM: Order cancelled - Patient discharged Performed By: #### L 501.080 #### [facility] [address] [place], [address] Potassium Normal 3.3-5.1 [facility] Comment on above: Result Comment: Canc elled via OM: Order cancelled - Patient discharged Performed By: #### L 501.080 #### [facility] [address] [place], [address] Basic Metabolic Profile (BMP) Normal 133-145 [facility] Comment on above: Result Comment: Canc elled via OM: Order cancelled - Patient discharged Performed By: #### L 501.080 #### [facility] [address] [place], [address] CBC W/Diff, Automatedon 07-1 Absolute Neut Normal 2.0-7.7 [facility] Comment on above: Result Comment: Canc elled via OM: Order cancelled - Patient discharged Performed By: #### L 501.080 #### [facility] [address] [place], [address] HCT Normal 40-54 [facility] Comment on above: Result Comment: Canc elled via OM: Order cancelled - Patient discharged Performed By: #### L 501.080 #### [facility] [address] [place], [address] HGB Normal 13.0-16.5 [facility] Comment on above: Result Comment: Canc elled via OM: Order cancelled - Patient discharged Performed By: #### L 501.080 #### [facility] [address] [place], [address] MCH Normal 27.0-32.0 [facility] Comment on above: Result Comment: Canc elled via OM: Order cancelled - Patient discharged Performed By: #### L 501.080 #### [facility] [address] [place], [address] MCHC Normal 32-36 [facility] Comment on above: Result Comment: Canc elled via OM: Order cancelled - Patient discharged Performed By: #### L 501.080 #### [facility] [address] [place], [address] MCV Normal 80-94 [facility] Comment on above: Result Comment: Canc elled via OM: Order cancelled - Patient discharged Performed By: #### L 501.080 #### [facility] [address] [place], [address] NEUT% Normal 47-70 [facility] Comment on above: Result Comment: Canc elled via OM: Order cancelled - Patient discharged Performed By: #### L 501.080 #### [facility] [address] [place], [address] PLT Normal 150-450 [facility] Comment on above: Result Comment: Canc elled via OM: Order cancelled - Patient discharged Performed By: #### L 501.080 #### [facility] [address] [place], [address] RBC Normal 4.6-6.2 [facility] Comment on above: Result Comment: Canc elled via OM: Order cancelled - Patient discharged Performed By: #### L 501.080 #### [facility] [address] [place], [address] RDW CV Normal 11.6-14.6 [facility] Comment on above: Result Comment: Canc elled via OM: Order cancelled - Patient discharged Performed By: #### L 501.080 #### [facility] [address] [place], [address] RDW SD Normal 35.1-43.9 [facility] Comment on above: Result Comment: Canc elled via OM: Order cancelled - Patient discharged Performed By: #### L 501.080 #### [facility] [address] [place], [address] WBC Normal 4.4-11.0 [facility] Comment on above: Result Comment: Canc elled via OM: Order cancelled - Patient discharged Performed By: #### L 501.080 #### [facility] [address] [place], [address] Absolute lymphocyte countOrd ered By: Juan Reed on 11-13-2024 Lymphocytes Auto (Unsp spec) [#/Vol] 1.50 10*3/uL 0.83-4.51 [facility] Absolute neutrophil countOrd ered By: Juan Reed on 11-13-2024 Neutrophils (Bld) [#/Vol] 2.5 10*3/uL 2.0-7.7 [facility] Anion gap in Serum or Plasma Ordered By: Juan Reed on 11-13-2024 Anion gap [Moles/Vol] 8 mmol/L 5-15 [place] Automated lymphocyte count a s percentage of total leukocytesOrdered By: Juan Reed on 11-13-2024 Lymphocytes/100 WBC Auto (Unsp spec) 31.3 % 19-41 [facility] BUN/creatinine ratioOrdered By: Juan Reed on 11-13-2024 Urea nitrogen/Creatinine [Mass ratio] 21.8 mg/mg High - [facility] Basic Metabolic Profile (BMP )on 11-13-2024 BUN/CRE 21.8 RATIO High - [facility] Comment on above: Performed By: #### L 501.080 #### [facility] [address] [place], [address] Calcium [Mass/Vol] 9.2 mg/dL Normal 7.6-11.0 [facility] Comment on above: Performed By: #### L 501.080 #### [facility] [address] [place], [address] Chloride [Moles/Vol] 94 mmol/L Low 98-108 [facility] Comment on above: Performed By: #### L 501.080 #### [facility] [address] [place], [address] CO2 [Moles/Vol] 27.1 mmol/L Normal 21.0-32.0 [facility] Comment on above: Performed By: #### L 501.080 #### [facility] [address] [place], [address] Creatinine [Mass/Vol] 0.65 mg/dL Low 0.70-1.20 [facility] Comment on above: Performed By: #### L 501.080 #### [facility] [address] [place], [address] ECRCL 63.12 ml/min Normal 50-250 [facility] Comment on above: Performed By: #### L 501.080 #### [facility] [address] [place], [address] GAP 8 Normal 5-15 [facility] Comment on above: Performed By: #### L 501.080 #### [facility] [address] [place], [address] GFR/1.73 sq M.predicted among non-blacks MDRD (S/P/Bld) [Vol rate/Area] 92 mL/min/{1.73_m2} Normal >60 [facility] Comment on above: Result Comment: mL/m in/1.73m2 CKD-EPI Creatinine Equation (2020) Performed By: #### L 501.080 #### [facility] [address] [place], [address] Glucose [Mass/Vol] 122 mg/dL High 70-99 [facility] Comment on above: Performed By: #### L 501.080 #### [facility] [address] [place], [address] Potassium [Moles/Vol] 3.9 mmol/L Normal 3.3-5.1 [facility] Comment on above: Performed By: #### L 501.080 #### [facility] [address] [place], [address] Sodium [Moles/Vol] 128 mmol/L Low 133-145 [facility] Comment on above: Performed By: #### L 501.080 #### [facility] [address] [place], [address] Urea nitrogen [Mass/Vol] 14 mg/dL Normal 4-19 [facility] Comment on above: Performed By: #### L 501.080 #### [facility] [address] [place], [address] Basophil percentageOrdered B y: Juan Derek on 11-13-2024 Basophils/100 WBC (Bld) 0.8 % 0-1 [facility] Bedside Glucoseon 11-13-2024 F[place]ER[place] GLU 137 mg/dL High 74-106 [facility] Comment on above: Result Comment: PERCY READ OF PATIENT CARE PER NURSING PROTOCOL Performed By: #### L 501.080 #### [facility] [address] [place], [address] CBC W/Diff, Automatedon 11-03 Absolute Lymph 1.50 X10 3/uL Normal 0.83-4.51 [facility] Comment on above: Performed By: #### L 501.080 #### [facility] [address] [place], [address] Absolute Neut 2.5 X10 3/uL Normal 2.0-7.7 [facility] Comment on above: Performed By: #### L 501.080 #### [facility] [address] [place], [address] Basophils/100 WBC (Bld) 0.8 % Normal 0-1 [facility] Comment on above: Performed By: #### L 501.080 #### [facility] [address] [place], [address] Eosinophils/100 WBC (Bld) 4.6 % Normal 0-5 [facility] Comment on above: Performed By: #### L 501.080 #### [facility] [address] [place], [address] Erythrocyte distribution width (RBC) [Ratio] 14.4 % Normal 11.6-14.6 [facility] Comment on above: Performed By: #### L 501.080 #### [facility] [address] [place], [address] Hematocrit (Bld) [Volume fraction] 32.3 % Low 40-54 [facility] Comment on above: Performed By: #### L 501.080 #### [facility] [address] [place], [address] Hemoglobin (Bld) [Mass/Vol] 10.9 g/dL Low 13.0-16.5 [facility] Comment on above: Performed By: #### L 501.080 #### [facility] [address] [place], [address] IG% 0.600 Normal 0.0-0.9 [facility] Comment on above: Result Comment: IG% - Immature Granulocytes (promyelocytes, myelocytes and metamyelocytes) > 1% indicates that a LEFT SHIFT is Present. Performed By: #### L 501.080 #### [facility] [address] [place], [address] Lymphocytes/100 WBC (Bld) 31.3 % Normal 19-41 [facility] Comment on above: Performed By: #### L 501.080 #### [facility] [address] [place], [address] MCH (RBC) [Entitic mass] 31.1 pg Normal 27.0-32.0 [facility] Comment on above: Performed By: #### L 501.080 #### [facility] [address] [place], [address] MCHC (RBC) [Mass/Vol] 33.7 g/dL Normal 32-36 [place] Comment on above: Performed By: #### L 501.080 #### [facility] [address] [place], [address] MCV (RBC) [Entitic vol] 92.0 fL Normal 80-94 [facility] Comment on above: Performed By: #### L 501.080 #### [facility] [address] [place], [address] Monocytes/100 WBC (Bld) 9.8 % Normal 0-10 [facility] Comment on above: Performed By: #### L 501.080 #### [facility] [address] [place], [address] Neutrophils/100 WBC (Bld) 52.9 % Normal 47-70 [facility] Comment on above: Performed By: #### L 501.080 #### [facility] [address] [place], [address] Nucleated RBC (Bld) [#/Vol] 0 10*3/uL Normal 0-5 [facility] Comment on above: Performed By: #### L 501.080 #### [facility] [address] [place], [address] Platelet mean volume (Bld) [Entitic vol] 9.9 fL Normal 6.2-12.0 [facility] Comment on above: Performed By: #### L 501.080 #### [facility] [address] [place], [address] Platelets (Bld) [#/Vol] 253 10*3/uL Normal 150-450 [facility] Comment on above: Performed By: #### L 501.080 #### [facility] [address] [place], [address] RBC (Bld) [#/Vol] 3.51 10*6/uL Low 4.6-6.2 [facility] Comment on above: Performed By: #### L 501.080 #### [facility] [address] [place], [address] RDW SD 47.9 fl High 35.1-43.9 [facility] Comment on above: Performed By: #### L 501.080 #### [facility] [address] [place], [address] WBC (Bld) [#/Vol] 4.8 10*3/uL Normal 4.4-11.0 [facility] Comment on above: Performed By: #### L 501.080 #### [facility] [address] [place], [address] Carbon dioxide, total [Moles /volume] in Central venous bloodOrdered By: Juan Reed on 11-13-2024 CO2 [Moles/Vol] 27.1 mmol/L 21.0-32.0 [facility] Chloride assayOrdered By: Jakob Reed on 11-13-2024 Chloride [Moles/Vol] 94 mmol/L Low 98-108 [facility] Eosinophil percentageOrdered By: Juan Reed on 11-13-2024 Eosinophils/100 WBC (Bld) 4.6 % 0-5 [facility] Erythrocyte distribution wid th ratioOrdered By: Juan Reed on 11-13-2024 Erythrocyte distribution width (RBC) [Ratio] 14.4 % 11.6-14.6 [facility] Erythrocyte distribution wid th standard deviationOrdered By: Juan Reed 11-13-2024 Erythrocyte distribution width (RBC) [Ratio] 47.9 fl High 35.1-43.9 [facility] Glomerular filtration rate ( GFR) estimation/1.73 sq m using serum, plasma, or whole bOrdered By: Juan Reed on 11-13-2024 GFR/1.73 sq M.predicted among non-blacks MDRD (S/P/Bld) [Vol rate/Area] 92 mL/min/{1.73_m2} >60 [facility] Comment on above: mL/min/1.73m2 CKD-EP I Creatinine Equation (2020) [facility] deOrdered By: Juan Reed on 11-13-2024 Glucose [Mass/Vol] 137 mg/dL High 74-106 [facility] Comment on above: MANAGEMENT OF PATIEN T CARE PER NURSING PROTOCOL Hematocrit Auto (Bld) [Volum e fraction]Ordered By: Juan Reed on 11-13-2024 Hematocrit (Bld) [Volume fraction] 32.3 % Low 40-54 [facility] Hemoglobin measurementOrdere d By: Juan Reed on 11-13-2024 Hemoglobin (Bld) [Mass/Vol] 10.9 g/dL Low 13.0-16.5 [facility] Immature granulocytes/100 WB C Auto (Bld)Ordered By: Juan Reed on 11-13-2024 Immature granulocytes/100 WBC (Bld) 0.600 % 0.0-0.9 [facility] Comment on above: IG% - Immature Granu locytes (promyelocytes, myelocytes and metamyelocytes) > 1% indicates that a LEFT SHIFT is Present. MCV (mean corpuscular volume ) determinationOrdered By: [facility] on 11-13-2024 MCV (RBC) [Entitic vol] 92.0 fL 80-[address] [facility] Mean corpuscular hemoglobin (MCH) determinationOrdered By: [facility] on 11-13-2024 MCH (RBC) [Entitic mass] 31.1 pg 27.0-32.0 [facility] Mean corpuscular hemoglobin concentration (MCHC) determinationOrdered By: [facility] on 11-13-2024 MCHC (RBC) [Mass/Vol] 33.7 g/dL 32-36 [place] Mean platelet volume determi nationOrdered By: [facility] 11-13-2024 Platelet mean volume (Bld) [Entitic vol] 9.9 fL 6.2-12.0 [facility] Monocyte percentageOrdered B y: [facility] on 11-13-2024 Monocytes/100 WBC (Bld) 9.8 % 0-10 [facility] Neutrophil percentageOrdered By: [facility] on 11-13-2024 Neutrophils/100 WBC (Bld) 52.9 % 47-70 [facility] Nucleated red blood cell per centageOrdered By: [facility] 11-13-2024 Nucleated RBC/100 WBC (Bld) [Ratio] 0 % 0-5 [facility] Osmolality, Serumon 11-14-19 25 OSMOLALITY,SER 278 mOsm/KG Low 280-301 [facility] Comment on above: Performed By: #### L 501.7332 #### [facility] [address] [place], [place], [id number] Osmolality, Urineon 11-14-19 25 OSMOLALITY,UR 406 mOsm/KG Normal [facility] Comment on above: Result Comment: Normal Urine Reference Ranges Random: 50 - 1200 mOsm/kg H20 depending on fluid intake Random: >850 mOsm/kg after 12 hour fluid restriction 24 hour: 300 - 900 mOsm/kg H2O Performed By: #### L 501.5500, L501.7400 #### [facility] [address] [place], [place], [address] Platelet countOrdered By: Jakob Reed on 11-13-2024 Platelets (Bld) [#/Vol] 253 10*3/uL 150-450 [facility] Potassium measurement (mass/ volume)Ordered By: Juan Reed on 11-13-2024 Potassium (Unsp spec) [Mass/Vol] 3.9 mmol/L 3.3-5.1 [facility] RBC Auto (Bld) [#/Vol]Ordere d By: Juan Derek on 11-13-2024 RBC (Bld) [#/Vol] 3.51 10*6/uL Low 4.6-6.2 [facility] Serum creatinine measurement (mass/volume)Ordered By: Juan Reed on 11-13-2024 Creatinine [Mass/Vol] 0.65 mg/dL Low 0.70-1.20 [place] Serum glucose measurement (m ass/volume)Ordered By: Juan Reed on 11-13-2024 Glucose [Mass/Vol] 122 mg/dL High 70-99 [facility] Serum or plasma calcium les urement (mass/volume)Ordered By: Juan Reed on 11-13-2024 Calcium [Mass/Vol] 9.2 mg/dL 7.6-11.0 [facility] Serum or plasma urea nitroge n measurement (mass/volume)Ordered By: Juan Reed on 11-13-2024 Urea nitrogen [Mass/Vol] 14 mg/dL 4-19 [facility] Sodium levelOrdered By: Juan Reed on 11-13-2024 Sodium [Moles/Vol] 128 mmol/L Low 133-145 [facility] Urine Sodiumon 11-13-2024 Sodium (U) [Moles/Vol] 51 mmol/L Normal Not Establ. [facility] Comment on above: Performed By: #### L 501.5500, L501.7400 #### [facility] [address] [place], [address] White blood cell (WBC) count Ordered By: Juan Reed on 11-13-2024 WBC (Bld) [#/Vol] 4.8 10*3/uL 4.4-11.0 [facility] Bedside Glucoseon 11-12-2024 FINGERSTICK GLU 137 mg/dL High 74-106 [facility] Comment on above: Result Comment: PERCY GEMENT OF PATIENT CARE PER NURSING PROTOCOL Performed By: #### L 501.080 #### [facility] [address] [place], [address] Urine Cultureon 11-12-2024 URC Culture exhibits no growth. Normal [facility] Comment on above: Performed By: #### L 400.0001, M100.2200 #### [facility] [address] [place], [address] Amorphous sediment detection in urine sediment by light microscopyOrdered By: Juan Reed on 11-11-2024 Amorphous sediment LM Ql (Urine sed) 3+ [facility] Bedside Glucoseon 11-11-2024 FINGERSTICK GLU 124 mg/dL High 74-106 [facility] Comment on above: Result Comment: PERCY GEMENT OF PATIENT CARE PER NURSING PROTOCOL Performed By: #### L 400.0001, M100.2200 #### [facility] [address] [place], [address] Bilirubin Test strip Ql (U)O rdered By: Juan Reed on 11-11-2024 Bilirubin Ql (U) Negative Negative [facility] Calcium oxalate crystals det ection in urine sediment by light microscopyOrdered By: Juan Reed on 11-11-2024 Calcium oxalate crystals LM Ql (Urine sed) RARE /hpf [facility] Ketones Test strip Ql (U)Ord ered By: Juan Reed on 11-11-2024 Ketones Ql (U) Negative Negative [facility] Microscopic analysis of urin e for red blood cells (RBC)Ordered By: Juan Reed on 11-11-2024 Microscopic analysis of urine for red blood cells (RBC) > 100 SEEN /hpf 0-5 [facility] Mucus LM Ql (Urine sed)Order ed By: Juan Reed on 11-11-2024 Mucus Ql (Urine sed) 0 SEEN /hpf [place] Nitrite Test strip Ql (U)Ord ered By: Juan Reed on 11-11-2024 Nitrite Ql (U) Negative Negative [facility] Protein Test strip Ql (U)Ord ered By: Juan Reed on 11-11-2024 Protein Ql (U) 30 mg/dl High Negative [facility] Squamous epithelial cells de tection in urine sediment by light microscopyOrdered By: Juan Reed on 11-11-2024 Epithelial cells.squamous LM Ql (Urine sed) 0 SEEN /hpf 0-5 [facility] Urinalysis, Completeon 11-11 AMORPHOUS 3+ Normal [facility] Comment on above: Order Comment: BENNY TER SPECIMEN Performed By: #### L 501.080 #### [facility] [address] [place], [address] CA OX CRYSTAL RARE Normal [facility] Comment on above: Order Comment: BENNY TER SPECIMEN Performed By: #### L 501.080 #### [facility] [address] [place], [address] WBC 5-10 SEEN Normal 0-[address] [place] [address] Comment on above: Order Comment: BENNY TER SPECIMEN Performed By: #### L 501.080 #### [facility] [address] [place], [address] RBC > 100 SEEN Normal 0-5 [facility] Comment on above: Order Comment: BENNY TER SPECIMEN Performed By: #### L 501.080 #### [facility] [address] [place], [address] BACTERIA 0 SEEN Normal None Seen [facility] Comment on above: Order Comment: BENNY TER SPECIMEN Performed By: #### L 501.080 #### [facility] [address] [place], [address] EPI,SQUAMOUS 0 SEEN Normal 0-5 [facility] Comment on above: Order Comment: BENNY TER SPECIMEN Performed By: #### L 501.080 #### [facility] [address] [place], [place], [id number] Mucus Ql (Urine sed) 0 SEEN Normal [facility] Comment on above: Order Comment: BENNY TER SPECIMEN Performed By: #### L 501.080 #### [facility] [address] [place], [place], [id number] Urine clarityOrdered By: Juan Reed on 11-11-2024 Clarity (U) Turbid Clear [facility] Urine color determinationOrd ered By: Juan Reed on 11-11-2024 Color (U) Yellow Yellow [facility] Urine glucose detectionOrder ed By: Juan Reed on 11-11-2024 Glucose Ql (U) Normal mg/dl Normal [facility] Urine leukocyte esterase det ection by dipstickOrdered By: Juan Reed on 11-11-2024 Leukocyte esterase Test strip Ql (U) 25 /ul High Negative [facility] Urine pHOrdered By: Juan Reed on 11-11-2024 pH (U) 7.0 [pH] 5.0 - 8.0 [facility] Urine sediment bacteria coun t by microscopy (number/high power field)Ordered By: Juan Reed on 11-11-2024 Bacteria LM.HPF (Urine sed) [#/Area] 0 /[HPF] None Seen [facility] Urine specific gravity measu rementOrdered By: Juan Reed on 11-11-2024 Specific gravity (U) [Rel density] 1.010 1.002-1.030 [facility] Urine urobilinogen measureme ntOrdered By: Juan Reed on 11-11-2024 Urobilinogen Ql (U) Normal mg/dl Normal [place] White blood cell countOrdere d By: Juan Reed on 11-11-2024 White blood cell count 5-10 SEEN /hpf 0-5 [facility] Bedside Glucoseon 11-10-2024 FINGERSTICK GLU 112 mg/dL High 74-106 [facility] Comment on above: Result Comment: PERCY GEMENT OF PATIENT CARE PER NURSING PROTOCOL Performed By: #### L 501.080 #### [facility] [address] [place], [address] Bedside Glucoseon 11-09-2024 FINGERSTICK GLU 121 mg/dL High 74-106 [facility] Comment on above: Result Comment: PERCY GEMENT OF PATIENT CARE PER NURSING PROTOCOL Performed By: #### L 501.080 #### [facility] [address] [place], [address] Bedside Glucoseon 11-08-2024 FINGERSTICK GLU 112 mg/dL High 74-106 [facility] Comment on above: Result Comment: PERCY GEMENT OF PATIENT CARE PER NURSING PROTOCOL Performed By: #### L 501.080 #### [facility] [address] [place], [address] Bedside Glucoseon 11-07-2024 FINGERSTICK GLU 137 mg/dL High 74-106 [facility] Comment on above: Result Comment: PERCY GEMENT OF PATIENT CARE PER NURSING PROTOCOL Performed By: #### L 501.080 #### [facility] [address] [place], [address] Basic Metabolic Profile (BMP )on 11-06-2024 BUN/CRE 23.1 RATIO High 10-20 [facility] Comment on above: Performed By: #### L 501.080 #### [facility] [address] [place], [address] Calcium [Mass/Vol] 9.3 mg/dL Normal 7.6-11.0 [facility] Comment on above: Performed By: #### L 501.080 #### [facility] [address] [place], [address] Chloride [Moles/Vol] 99 mmol/L Normal 98-108 [facility] Comment on above: Performed By: #### L 501.080 #### [facility] [address] [place], [address] CO2 [Moles/Vol] 25.4 mmol/L Normal 21.0-32.0 [facility] Comment on above: Performed By: #### L 501.080 #### [facility] [address] [place], [address] Creatinine [Mass/Vol] 0.68 mg/dL Low 0.70-1.20 [place] Comment on above: Performed By: #### L 501.080 #### [facility] [address] [place], [address] ECRCL 62.59 ml/min Normal 50-250 [facility] Comment on above: Performed By: #### L 501.080 #### [facility] [address] [place], [address] GAP 9 Normal 5-15 [facility] Comment on above: Performed By: #### L 501.080 #### [facility] [address] [place], [address] GFR/1.73 sq M.predicted among non-blacks MDRD (S/P/Bld) [Vol rate/Area] 91 mL/min/{1.73_m2} Normal >60 [facility] Comment on above: Result Comment: mL/m in/1.73m2 CKD-EPI Creatinine Equation (2020) Performed By: #### L 501.080 #### [facility] [address] [place], [address] Glucose [Mass/Vol] 139 mg/dL High 70-99 [facility] Comment on above: Performed By: #### L 501.080 #### [facility] [address] [place], [address] Potassium [Moles/Vol] 3.9 mmol/L Normal 3.3-5.1 [place] Comment on above: Performed By: #### L 501.080 #### [facility] [address] [place], [address] Sodium [Moles/Vol] 134 mmol/L Normal 133-145 [facility] Comment on above: Performed By: #### L 501.080 #### [facility] [address] [place], [address] Urea nitrogen [Mass/Vol] 16 mg/dL Normal 4-19 [facility] Comment on above: Performed By: #### L 501.080 #### [facility] [address] [place], [address] Bedside Glucoseon --2024 FINGERSTICK GLU 148 mg/dL High 74-106 [facility] Comment on above: Result Comment: PERCY READ OF PATIENT CARE PER NURSING PROTOCOL Performed By: #### L 501.080 #### [facility] [address] [place], [address] CBC W/Diff, Automatedon 07-0 -2024 Absolute Lymph 1.22 X10 3/uL Normal 0.83-4.51 [facility] Comment on above: Performed By: #### L 501.080 #### [facility] [address] [place], [address] Absolute Neut 5.5 X10 3/uL Normal 2.0-7.7 [facility] Comment on above: Performed By: #### L 501.080 #### [facility] [address] [place], [address] Basophils/100 WBC (Bld) 0.7 % Normal 0-1 [facility] Comment on above: Performed By: #### L 501.080 #### [facility] [address] [place], [address] Eosinophils/100 WBC (Bld) 1.6 % Normal 0-5 [facility] Comment on above: Performed By: #### L 501.080 #### [facility] [address] [place], [address] Erythrocyte distribution width (RBC) [Ratio] 14.1 % Normal 11.6-14.6 [facility] Comment on above: Performed By: #### L 501.080 #### [facility] [address] [place], [address] Hematocrit (Bld) [Volume fraction] 31.9 % Low 40-54 [facility] Comment on above: Performed By: #### L 501.080 #### [facility] [address] [place], [address] Hemoglobin (Bld) [Mass/Vol] 10.8 g/dL Low 13.0-16.5 [facility] Comment on above: Performed By: #### L 501.080 #### [facility] [address] [place], [address] IG% 0.900 Normal 0.0-0.9 [facility] Comment on above: Result Comment: IG% - Immature Granulocytes (promyelocytes, myelocytes and metamyelocytes) > 1% indicates that a LEFT SHIFT is Present. Performed By: #### L 501.080 #### [facility] [address] [place], [address] Lymphocytes/100 WBC (Bld) 16.4 % Low 19-41 [facility] Comment on above: Performed By: #### L 501.080 #### [facility] [address] [place], [address] MCH (RBC) [Entitic mass] 31.3 pg Normal 27.0-32.0 [facility] Comment on above: Performed By: #### L 501.080 #### [facility] [address] [place], [address] MCHC (RBC) [Mass/Vol] 33.9 g/dL Normal 32-36 [place] Comment on above: Performed By: #### L 501.080 #### [facility] [address] [place], [address] MCV (RBC) [Entitic vol] 92.5 fL Normal 80-94 [facility] Comment on above: Performed By: #### L 501.080 #### [facility] [address] [place], [address] Monocytes/100 WBC (Bld) 6.2 % Normal 0-10 [facility] Comment on above: Performed By: #### L 501.080 #### [facility] [address] [place], [address] Neutrophils/100 WBC (Bld) 74.2 % High 47-70 [facility] Comment on above: Performed By: #### L 501.080 #### [facility] [address] [place], [address] Nucleated RBC (Bld) [#/Vol] 0 10*3/uL Normal 0-5 [facility] Comment on above: Performed By: #### L 501.080 #### [facility] [address] [place], [address] Platelet mean volume (Bld) [Entitic vol] 9.4 fL Normal 6.2-12.0 [facility] Comment on above: Performed By: #### L 501.080 #### [facility] [address] [place], [address] Platelets (Bld) [#/Vol] 360 10*3/uL Normal 150-450 [facility] Comment on above: Performed By: #### L 501.080 #### [facility] [address] [place], [address] RBC (Bld) [#/Vol] 3.45 10*6/uL Low 4.6-6.2 [facility] Comment on above: Performed By: #### L 501.080 #### [facility] [address] [place], [address] RDW SD 47.4 fl High 35.1-43.9 [facility] Comment on above: Performed By: #### L 501.080 #### [facility] [address] [place] [place], [address] WBC (Bld) [#/Vol] 7.5 10*3/uL Normal 4.4-11.0 [facility] Comment on above: Performed By: #### L 501.080 #### [facility] [address] [place], [address] Bedside Glucoseon 11-05-2024 FINGERSTICK GLU 156 mg/dL High 74-106 [facility] Comment on above: Result Comment: PERCY GEMENT OF PATIENT CARE PER NURSING PROTOCOL Performed By: #### L 400.0001, M100.2200 #### [facility] [address] [place], [address] Bedside Glucoseon 11-04-2024 FINGERSTICK GLU 130 mg/dL High 74-106 [facility] Comment on above: Result Comment: PERCY GEMENT OF PATIENT CARE PER NURSING PROTOCOL Performed By: #### L 501.080 #### [facility] [address] [place], [address] Chest PA and Lateralon 11-04 Chest PA and Lateral [facility] [address] [place] [address] Chest PA and Lateral MR#: [id number] Acct: [id number] Name: TIM ADAMSON Rep #: [id number] : [id number] M 83 From: Forest Isaac MD PCP: VALENTIN Marrufo Status: ADM IN Study: Chest PA and Lateral Date of Exam: 11/04/24 Exam# [id number] Ordering Dr: Juan Reed MD PROCEDURE: CHEST PA AND LATERAL 11/04/2024 REASON FOR EXAM: COUGH. TECHNIQUE: CHEST PA AND LATERAL COMPARISON: None. FINDINGS: The heart is enlarged. Left basilar linear opacity favoring scar or atelectasis. Developing infiltrate is possible. Trace bilateral pleural effusions. No pneumothorax. RAD/Chest PA and Lateral IMPRESSION: As above. Reading Location: [id number] CC: VALENTIN Price; Dr. Juan Reed MD Behavioral Health Associate: Signed Normal [facility] Urine Cultureon 11-04-2024 URC Culture exhibits no growth. Normal [facility] Comment on above: Performed By: #### L 400.0001, #### [facility] [address] [place], [address] Urinalysis, Completeon 11-03 Mucus Ql (Urine sed) 1+ /hpf Normal [facility] Comment on above: Order Comment: COLOR OF URINE MAY AFFECT DIPSTICK RESULTS. Microscopic field is filled. Other elements may be obscured. CATHETER SPECIMEN Performed By: #### L 400.0001, #### [facility] [address] [place], [address] WBC 5-10 SEEN Normal 0-5 [facility] Comment on above: Order Comment: COLOR OF URINE MAY AFFECT DIPSTICK RESULTS. Microscopic field is filled. Other elements may be obscured. CATHETER SPECIMEN Performed By: #### L 400.0001, .2199 #### [facility] [address] [place], [address] BACTERIA 1+ /hpf Normal None Seen [facility] Comment on above: Order Comment: COLOR OF URINE MAY AFFECT DIPSTICK RESULTS. Microscopic field is filled. Other elements may be obscured. CATHETER SPECIMEN Performed By: #### L 400.0001, .2199 #### [facility] [address] [place], [address] RBC > 100 SEEN Normal 0-5 [facility] Comment on above: Order Comment: COLOR OF URINE MAY AFFECT DIPSTICK RESULTS. Microscopic field is filled. Other elements may be obscured. CATHETER SPECIMEN Performed By: #### L 400.0001, M100.2200 #### [facility] [address] [place], [address] EPI,SQUAMOUS 0 SEEN Normal 0-5 [facility] Comment on above: Order Comment: COLOR OF URINE MAY AFFECT DIPSTICK RESULTS. Microscopic field is filled. Other elements may be obscured. CATHETER SPECIMEN Performed By: #### L 400.0001, M100.2200 #### [facility] [address] [place], [address] Urine cultureOrdered By: Juan Reed on 11-03-2024 Bacteria identified Cx Nom (U) Culture exhibits no growth. [facility] Bedside Glucoseon 11-02-2024 FINGERSTICK GLU 156 mg/dL High 74-106 [facility] Comment on above: Result Comment: PERCY GEMENT OF PATIENT CARE PER NURSING PROTOCOL Performed By: #### L 501.080 #### [facility] [address] [place], [address] Bedside Glucoseon 11-01-2024 FINGERSTICK GLU 178 mg/dL High 74-106 [facility] Comment on above: Result Comment: PERCY GEMENT OF PATIENT CARE PER NURSING PROTOCOL Performed By: #### L 501.080 #### [facility] [address] [place], [address] Bedside Glucoseon 10-31-2024 FINGERSTICK GLU 184 mg/dL High 74-106 [facility] Comment on above: Result Comment: PERCY GEMENT OF PATIENT CARE PER NURSING PROTOCOL Performed By: #### L 501.080 #### [facility] [address] [place], [address] Calculated very low density lipoprotein (VLDL) cholesterol measurementOrdered By: Juan Reed on 10-31-2024 Calculated very low density lipoprotein (VLDL) cholesterol measurement 16 mg/dL 5-40 [facility] Hemoglobin A1con 10-31-2024 HbA1c (Bld) [Mass fraction] 7.1 % High <=5.6 [facility] Comment on above: Result Comment: Norm al < 5.7 % Prediabetic 5.7 - 6.4 % Diabetic >or= 6.5 % Please note range changes. Performed By: #### L 500.4100, L501.9985, L506.1001 #### [facility] [address] [place], [place], [id number] Hemoglobin A1c percentageOrd ered By: Juan Reed on 10-31-2024 HbA1c (Bld) [Mass fraction] 7.1 % High <5.7 [facility] Comment on above: Normal < 5.7 % Predi abetic 5.7 - 6.4 % Diabetic >or= 6.5 % Please note range changes. LDL calc ser/plasOrdered By: Juan Reed on 10-31-2024 Cholesterol in LDL [Mass/Vol] 74 mg/dL [facility] Comment on above: Kxvlehykam=173-232 m g/dL & Higher Wlir=638 mg/dL or greater Lipid Profileon 10-31-2024 CHOL:HDL 3.59 Normal [facility] Comment on above: Performed By: #### L 400.0001, M1 #### [facility] [address] [place], [place], [id number] ([phone]) Cholesterol [Mass/Vol] 124 mg/dL Normal <=[address] [facility] Comment on above: Result Comment: Chol esterol level, Desirable <200 mg/dL Borderline high cholesterol 200-239 mg/dL High cholesterol >=240 mg/dL Recommendations of the NCEP Adult Treatment Panel for the following risk-cutoff thresholds for the [place] population. Performed By: #### L 400.0001, M1.0 #### [facility] [address] [place], [address] Cholesterol in HDL [Mass/Vol] 35 mg/dL Low [facility] Comment on above: Result Comment: Zahraa onfelisha Cholesterol Education Program (NCEP) guidelines: <40 mg/dL: Low HDL-cholesterol (major risk factor for CHD) >= 60 mg/dL: High HDL-cholesterol (negative risk factor for CHD) HDL-cholesterol is affected by a number of factors, e.g. smoking, exercise, hormones, sex and age. Performed By: #### L 400.0001, #### [facility] [address] [place], [address] Cholesterol in LDL [Mass/Vol] 74 mg/dL Normal [facility] Comment on above: Result Comment: Bord ktijfb=948-051 mg/dL Higher Cwoh=916 mg/dL or greater Performed By: #### L 400.0001, #### [facility] [address] [place], [address] Cholesterol in VLDL [Mass/Vol] 16 mg/dL Normal 5-40 [facility] Comment on above: Performed By: #### L 400.0001, #### [facility] [address] [place], [address] Triglyceride [Mass/Vol] 79 mg/dL Normal [facility] Comment on above: Result Comment: The drugs N-Acetylcysteine and Metamizole may falsely depress this assay. Normal range: <150 mg/dL Borderline High: 150-199 mg/dL High: 200-499 mg/dL Very High: >500 mg/dL Performed By: #### L 400.0001, #### [facility] [address] [place], [address] Screening total cholesterol/ high density lipoprotein (HDL) cholesterol ratioOrdered By: Juan Reed on 10-31-2024 Cholesterol.total/Cherelle sterol in HDL [Mass ratio] 3.59 {ratio} [facility] Serum or plasma cholesterol in HDL measurement (mass/volume)Ordered By: Juan Reed on 10-31-2024 Cholesterol in HDL [Mass/Vol] 35 mg/dL Low >40 [facility] Comment on above: National Cholesterol Education Program (NCEP) guidelines:<40 mg/dL: Low HDL-cholesterol (major risk factor for CHD)>= 60 mg/dL: High HDL-cholesterol (negative risk factor for CHD)HDL-cholesterol is affected by a number of factors, e.g. smoking, exercise, hormones, sex and age. Serum or plasma cholesterol measurement (mass/volume)Ordered By: Juan Reed on 10-31-2024 Cholesterol [Mass/Vol] 124 mg/dL <201 [facility] Comment on above: Cholesterol level, D esirable <200 mg/dLBorderline high cholesterol 200-239 mg/dLHigh cholesterol >=240 mg/dLRecommendations of the NCEP Adult Treatment Panel for the following risk-cutoff thresholds for the [place] population. Triglycerides measurementOrd ered By: Juan Reed on 10-31-2024 Triglyceride [Mass/Vol] 79 mg/dL <199 [facility] Comment on above: The drugs N-Acetylcy steine and Metamizole may falsely depress this assay. Normal range: <150 mg/dLBorderline High: 150-199 mg/dLHigh: 200-499 mg/dLVery High: >500 mg/dL Vitamin D,25 Hydroxyon 10-31 Vitamin D 25-OH 46.7 ng/mL Normal 30-100 [facility] Comment on above: Result Comment: Whit min D Status Deficiency: <20 ng/mL (50nmol/L) Insufficiency: 20-30 ng/mL (50-75 nmol/L) Sufficiency: 30-100 ng/mL (75-250 nmol/L) Toxicity: >100 ng/mL (>250 nmol/L) Performed By: #### L 400.0001, M100.2200 #### [facility] [address] [place], [place], [id number] Basic Metabolic Profile (BMP )on 10-30-2024 BUN/CRE 34.3 RATIO High 10-20 [facility] Comment on above: Performed By: #### L 501.080 #### [facility] [address] [place], [address] Calcium [Mass/Vol] 10.1 mg/dL Normal 7.6-11.0 [facility] Comment on above: Performed By: #### L 501.080 #### [facility] [address] [place], [address] Chloride [Moles/Vol] 93 mmol/L Low 98-108 [facility] Comment on above: Performed By: #### L 501.080 #### [facility] [address] [place], [address] CO2 [Moles/Vol] 27.1 mmol/L Normal 21.0-32.0 [facility] Comment on above: Performed By: #### L 501.080 #### [facility] [address] [place], [address] Creatinine [Mass/Vol] 0.64 mg/dL Low 0.70-1.20 [place] Comment on above: Performed By: #### L 501.080 #### [facility] [address] [place], [address] ECRCL 63.12 ml/min Normal 50-250 [facility] Comment on above: Performed By: #### L 501.080 #### [facility] [address] [place], [address] GAP 12 Normal 5-15 [facility] Comment on above: Performed By: #### L 501.080 #### [facility] [address] [place], [address] GFR/1.73 sq M.predicted among non-blacks MDRD (S/P/Bld) [Vol rate/Area] 93 mL/min/{1.73_m2} Normal >60 [facility] Comment on above: Result Comment: mL/m in/1.73m2 CKD-EPI Creatinine Equation (2020) Performed By: #### L 501.080 #### [facility] [address] [place], [address] Glucose [Mass/Vol] 194 mg/dL High 70-99 [facility] Comment on above: Performed By: #### L 501.080 #### [facility] [address] [place], [address] Potassium [Moles/Vol] 4.0 mmol/L Normal 3.3-5.1 [place] Comment on above: Performed By: #### L 501.080 #### [facility] [address] [place], [address] Sodium [Moles/Vol] 132 mmol/L Low 133-145 [facility] Comment on above: Performed By: #### L 501.080 #### [facility] [address] [place], [address] Urea nitrogen [Mass/Vol] 22 mg/dL High 4-19 [facility] Comment on above: Performed By: #### L 501.080 #### [facility] [address] [place], [address] Bedside Glucoseon 10-30-2024 FINGERSTICK GLU 182 mg/dL High 74-106 [facility] Comment on above: Result Comment: PERCY ROBERTENT OF PATIENT CARE PER NURSING PROTOCOL Performed By: #### L 501.080 #### [facility] [address] [place], [address] CBC W/Diff, Automatedon 06-2 Absolute Lymph 1.67 X10 3/uL Normal 0.83-4.51 [facility] Comment on above: Performed By: #### L 501.080 #### [facility] [address] [place], [address] Absolute Neut 9.0 X10 3/uL High 2.0-7.7 [facility] Comment on above: Performed By: #### L 501.080 #### [facility] [address] [place], [address] Basophils/100 WBC (Bld) 0.7 % Normal 0-1 [facility] Comment on above: Performed By: #### L 501.080 #### [facility] [address] [place], [address] Eosinophils/100 WBC (Bld) 1.5 % Normal 0-5 [facility] Comment on above: Performed By: #### L 501.080 #### [facility] [address] [place], [address] Erythrocyte distribution width (RBC) [Ratio] 13.6 % Normal 11.6-14.6 [facility] Comment on above: Performed By: #### L 501.080 #### [facility] [address] [place], [address] Hematocrit (Bld) [Volume fraction] 36.9 % Low 40-54 [facility] Comment on above: Performed By: #### L 501.080 #### [facility] [address] [place], [address] Hemoglobin (Bld) [Mass/Vol] 12.6 g/dL Low 13.0-16.5 [facility] Comment on above: Performed By: #### L 501.080 #### [facility] [address] [place], [address] IG% 4.300 High 0.0-0.9 [facility] Comment on above: Result Comment: IG% - Immature Granulocytes (promyelocytes, myelocytes and metamyelocytes) > 1% indicates that a LEFT SHIFT is Present. Performed By: #### L 501.080 #### [facility] [address] [place], [address] Lymphocytes/100 WBC (Bld) 13.8 % Low 19-41 [facility] Comment on above: Performed By: #### L 501.080 #### [facility] [address] [place], [address] MCH (RBC) [Entitic mass] 31.3 pg Normal 27.0-32.0 [facility] Comment on above: Performed By: #### L 501.080 #### [facility] [address] [place], [address] MCHC (RBC) [Mass/Vol] 34.1 g/dL Normal 32-36 [place] Comment on above: Performed By: #### L 501.080 #### [facility] [address] [place], [address] MCV (RBC) [Entitic vol] 91.8 fL Normal 80-94 [facility] Comment on above: Performed By: #### L 501.080 #### [facility] [address] [place], [address] Monocytes/100 WBC (Bld) 5.3 % Normal 0-[address] [facility] Comment on above: Performed By: #### L 501.080 #### [facility] [address] [place], [address] Neutrophils/100 WBC (Bld) 74.4 % High 47-70 [facility] Comment on above: Performed By: #### L 501.080 #### [facility] [address] [place], [address] Nucleated RBC (Bld) [#/Vol] 0 10*3/uL Normal 0-5 [facility] Comment on above: Performed By: #### L 501.080 #### [facility] [address] [place], [address] Platelet mean volume (Bld) [Entitic vol] 9.2 fL Normal 6.2-12.0 [facility] Comment on above: Performed By: #### L 501.080 #### [facility] [address] [place], [address] Platelets (Bld) [#/Vol] 348 10*3/uL Normal 150-450 [facility] Comment on above: Performed By: #### L 501.080 #### [facility] [address] [place], [address] RBC (Bld) [#/Vol] 4.02 10*6/uL Low 4.6-6.2 [facility] Comment on above: Performed By: #### L 501.080 #### [facility] [address] [place], [address] RDW SD 46.5 fl High 35.1-43.9 [facility] Comment on above: Performed By: #### L 501.080 #### [facility] [address] [place], [address] WBC (Bld) [#/Vol] 12.1 10*3/uL High 4.4-11.0 [facility] Comment on above: Performed By: #### L 501.080 #### [facility] [address] [place], [address] .GFRon 10-29-2024 Estimated Glomerular Filtration Rate 97 ml/min/1.73sqm Normal [facility] Comment on above: Result Comment: Stages [...] calculate the eGFR results. Performed By: #### U Shea UAMIC #### [address] [address] .Manual Diffon 10-29-2024 Bands 1.0 % Normal 0.0-5.0 [facility] Comment on above: Performed By: #### U Shea UAMIC #### [place] [id number] Basophil %, Manual 0.0 % Normal 0.0-2.5 [facility] Comment on above: Performed By: #### Anatoly Valdivia UAMIC #### [place] [address] Basophil, Abs Manual 0.0 10 3/mcL Normal 0.0-0.3 [facility] Comment on above: Performed By: #### Anatoly Valdivia UAMIC #### [place] [address] Eosinophil %, Manual 3.0 % Normal 0.0-6.0 [facility] Comment on above: Performed By: #### Anatoly Valdivia UAMIC #### [place] [id number] Eosinophil, Abs Manual 0.2 10 3/mcL Normal 0.0-0.7 [facility] Comment on above: Performed By: #### Anatoly Valdivia UAMIC #### [place] [address] Lymphocyte %, Manual 18.0 % Low 20.0-40.0 [facility] Comment on above: Performed By: #### U Shea UAMIC #### [place] [address] Lymphocyte, Abs Manual 1.4 10 3/mcL Normal 0.9-4.3 [facility] Comment on above: Performed By: #### Anatoly Valdivia UAMIC #### [place] [address] Metamyelocyte 3.0 % Normal [facility] Comment on above: Performed By: #### U Shea UAMIC #### [place] [address] Monocyte %, Manual 7.0 % Normal 2.0-13.0 [facility] Comment on above: Performed By: #### U A, UAMIC #### [place] [id number] Monocyte, Abs Manual 0.6 10 3/mcL Normal 0.1-1.4 [facility] Comment on above: Performed By: #### U A, UAMIC #### [place] [address] Neutrophil %, Manual 68.0 % Normal 50.0-75.0 [facility] Comment on above: Performed By: #### U A, UAMIC #### [place] [address] Neutrophil, Abs Manual 5.3 10 3/mcL Normal 2.3-8.1 [facility] Comment on above: Performed By: #### U A, UAMIC #### [place] [address] Nucleated RBC 0.0 /100 WBC Normal [facility] Comment on above: Performed By: #### U A UAMIC #### [place] [address] .Morphon 10-29-2024 Platelet Estimate Normal Normal [facility] Comment on above: Performed By: #### U A, UAMIC #### [place] [address] RBC morphology finding Nom (Bld) Normal Normal [facility] Comment on above: Performed By: #### U A, UAMIC #### [place] [address] CBCon 10-29-2024 Erythrocyte distribution width (RBC) [Ratio] 14.1 % Normal 11.5-15.5 [facility] Comment on above: Performed By: #### U A, UAMIC #### [place] [address] Hematocrit (Bld) [Volume fraction] 34.1 % Low 40.0-52.0 [facility] Comment on above: Performed By: #### U A, UAMIC #### [place] [id number] Hgb 12.1 G/dL Low 13.0-17.5 [facility] Comment on above: Performed By: #### U A UAMIC #### [place] [address] MCH (RBC) [Entitic mass] 32.4 pg Normal 27.0-33.0 [facility] Comment on above: Performed By: #### U A UAMIC #### [place] [address] MCHC 35.4 G/dL Normal 32.0-36.0 [facility] Comment on above: Performed By: #### U Shea UAMIC #### [place] [address] MCV (RBC) [Entitic vol] 91.4 fL Normal 81.0-100.0 [facility] Comment on above: Performed By: #### Anatoly Valdivia UAMIC #### [place] [address] Platelet 327 10 3/mcL Normal 150-450 [facility] Comment on above: Performed By: #### U Shea UAMIC #### [place] [address] Platelet mean volume (Bld) [Entitic vol] 7.2 fL Normal 6.4-10.5 [facility] Comment on above: Performed By: #### U Shea UAMIC #### [place] [address] RBC 3.72 10 6/mcL Low 4.50-6.00 [facility] Comment on above: Performed By: #### U A UAMIC #### [place] [address] WBC 7.7 10 3/mcL Normal 4.5-10.8 [facility] Comment on above: Performed By: #### U A UAMIC #### [place] [address] CMPon 10-29-2024 Albumin Level 2.9 G/dL Low 3.2-4.8 [facility] Comment on above: Performed By: #### Anatoly Valdivia UAMIC #### [address] [address] Albumin/Globulin [Mass ratio] 0.9 {ratio} Normal 0.9-1.6 [facility] Comment on above: Performed By: #### Anatoly Valdivia UAMIC #### [address] [address] ALP [Catalytic activity/Vol] 76 U/L Normal 38-126 [facility] Comment on above: Performed By: #### Anatoly Valdivia UAMIC #### [address] [address] ALT [Catalytic activity/Vol] 47 U/L Normal 12-55 [facility] Comment on above: Performed By: #### Anatoly Valdivia UAMIC #### [place] [id number] AST [Catalytic activity/Vol] 30 U/L Normal 8-34 [facility] Comment on above: Performed By: #### Anatoly Valdivia UAMIC #### [address] [address] Bili Total 0.50 mg/dL Normal 0.20-1.20 [facility] Comment on above: Result Comment: Use of this assay is not recommended for patients undergoing treatment with eltrombopag due to the potential for falsely elevated results. Performed By: #### Anatoly Valdivia UAMIC #### [place] [id number] BUN/Creatinine Ratio 39.3 ratio High 10.0-22.0 [facility] Comment on above: Performed By: #### Anatoly Valdivia UAMIC #### [address] [address] Calcium [Mass/Vol] 9.7 mg/dL Normal 8.7-10.4 [facility] Comment on above: Performed By: #### Anatoly Valdivia UAMIC #### [address] [address] Chloride [Moles/Vol] 95 mmol/L Low 98-110 [facility] Comment on above: Performed By: #### Anatoly Valdivia UAMIC #### [address] [address] CO2 [Moles/Vol] 29 mmol/L Normal 22-32 [facility] Comment on above: Performed By: #### U Shea UAMIC #### [address] [address] Creatinine [Mass/Vol] 0.56 mg/dL Low 0.60-1.40 [facility] Comment on above: Result Comment: Test ing performed on [employer] analyzer using enzymatic creatinine methodology. Performed By: #### U Shea UAMIC #### [address] [address] Electrolyte Balance 10.0 mEq/L Normal 4.0-15.0 [facility] Comment on above: Performed By: #### Anatoly Valdivia UAMIC #### [address] [address] Globulin 3.3 G/dL Normal 2.5-4.2 [facility] Comment on above: Performed By: #### Anatoly Valdivia UAMIC #### [address] [address] Glucose [Mass/Vol] 215 mg/dL High 82-115 [facility] Comment on above: Performed By: #### Anatoly Valdivia UAMIC #### [address] [address] Potassium [Moles/Vol] 3.7 mmol/L Normal 3.5-5.0 [facility] Comment on above: Performed By: #### U Shea UAMIC #### [address] [address] Sodium [Moles/Vol] 134 mmol/L Low 136-145 [facility] Comment on above: Performed By: #### U Shea UAMIC #### [address] [address] Total Protein 6.2 G/dL Normal 5.7-8.2 [facility] Comment on above: Performed By: #### U Shea UAMIC #### [place] [id number] Urea nitrogen [Mass/Vol] 22.0 mg/dL Normal 8.0-22.0 [facility] Comment on above: Performed By: #### U BERNA Valdivia #### [facility] [address] [place] [address] LABORATORYOrdered By: Maikol Corrigan on 10-29-2024 Blood Glucose Testing Reason Routine (10/29/24 11:33 AM) [facility] Glucose [Mass/Vol] 276 mg/dL High 82 - 115 mg/dL [facility] Blood Glucose Testing Reason Routine (10/29/24 7:44 AM) [facility] Glucose [Mass/Vol] 196 mg/dL High 82 - 115 mg/dL [facility] LABORATORYOrdered By: SYSTEM SYSTEM on 10-29-2024 [...] 29 mmol/L Normal 22 - 32 mEq/L AH ADM SS Creatinine [Mass/Vol] 0.56 mg/dL Low 0.60 - 1.40 mg/dL AH ADM SS Comment on above: Interpretive Data: T esting performed on [employer] analyzer using enzymatic creatinine methodology. Electrolyte Balance 10.0 mEq/L Normal 4.0 - 15 .0 mEq/L ADM SS Eosinophils (Bld) [#/Vol] 0.2 103/mcL Normal 0.0 - 0.7 10^3/mcL AH Workflow SS Eosinophils/100 WBC (Bld) 3.0 % [...] 215 mg/dL High 82 - 115 mg/dL AH ADM SS Hematocrit (Bld) [Volume fraction] 34.1 % Low 40.0 - 52.0 % Workflow SS Hemoglobin (Bld) [Mass/Vol] 12.1 G/dL Low 13.0 - 17.5 G/dL AH Workflow SS Lymphocytes (Bld) [#/Vol] 1.4 103/mcL Normal 0.9 - 4.3 10^3/mcL AH Workflow SS Lymphocytes/100 WBC (Bld) 18.0 % Low 20.0 - 40.0 % AH Workflow SS Magnesium [Mass/Vol] 1.7 mg/dL Normal 1.6 - 2 .4 mg/dL AH ADM SS MCH (RBC) [Entitic mass] 32.4 pg Normal 27.0 - 33.0 pg AH Workflow SS MCHC 35.4 G/dL Normal 32.0 [...] *NA* (10/29/24 6:36 AM) Invalid Interpretation Code AH Workflow SS Potassium [Moles/Vol] 3.7 mmol/L Normal 3.5 - 5.0 mEq/L ADM SS Protein [Mass/Vol] 6.2 G/dL Normal 5.7 - 8.2 G/dL ADM SS RBC (Bld) [#/Vol] 3.72 106/mcL Low 4.50 - 6.0 0 10^6/mcL AH Workflow SS RBC morphology finding Nom (Bld) Normal *NA* (10/29/24 6:36 AM) Invalid Interpretation Code AH Workflow SS Sodium [Moles/Vol] 134 mmol/L Low 136 - 145 mEq/L ADM SS Urea nitrogen [Mass/Vol] 22.0 mg/dL Normal 8.0 - 22.0 mg/dL AH ADM SS Urea nitrogen/Creatinine [Mass ratio] 39.3 ratio High 10.0 - 22.0 ratio AH ADM SS WBC (Bld) [#/Vol] 7.7 103/mcL Normal 4.5 - 10.8 10^3/mcL AH Workflow SS MGon 10-29-2024 Magnesium [Mass/Vol] 1.7 mg/dL Normal 1.6-2.4 [facility] Comment on above: Performed By: #### U A, UAMIC #### [address] [address] .GFRon 10-28-2024 Estimated Glomerular Filtration Rate 92 ml/min/1.73sqm Normal [facility] Comment on above: Result Comment: Stages [...] DIFF, CBC, BMP, ANEU, MG, GFR #### [address] [address] .Manual Diffon 10-28-2024 Basophil %, Manual 0.0 % Normal 0.0-2.5 [facility] Comment on above: Performed By: #### A DIFF, CBC, BMP, ANEU, MG, GFR #### [address] [address] Basophil, Abs Manual 0.0 10 3/mcL Normal 0.0-0.3 [facility] Comment on above: Performed By: #### A DIFF, CBC, BMP, ANEU, MG, GFR #### [place] [address] Eosinophil %, Manual 1.0 % Normal 0.0-6.0 [facility] Comment on above: Performed By: #### A DIFF, CBC, BMP, ANEU, MG, GFR #### [address] [address] Eosinophil, Abs Manual 0.1 10 3/mcL Normal 0.0-0.7 [facility] Comment on above: Performed By: #### A DIFF, CBC, BMP, ANEU, MG, GFR #### [address] [address] Lymphocyte %, Manual 11.0 % Low 20.0-40.0 [facility] Comment on above: Performed By: #### A DIFF, CBC, BMP, ANEU, MG, GFR #### [address] [address] Lymphocyte, Abs Manual 1.1 10 3/mcL Normal 0.9-4.3 [facility] Comment on above: Performed By: #### A DIFF, CBC, BMP, ANEU, MG, GFR #### [address] [address] Metamyelocyte 1.0 % Normal [facility] Comment on above: Performed By: #### A DIFF, CBC, BMP, ANEU, MG, GFR #### [address] [address] Monocyte %, Manual 4.0 % Normal 2.0-13.0 [facility] Comment on above: Performed By: #### A DIFF, CBC, BMP, ANEU, MG, GFR #### [address] [address] Monocyte, Abs Manual 0.4 10 3/mcL Normal 0.1-1.4 [facility] Comment on above: Performed By: #### A DIFF, CBC, BMP, ANEU, MG, GFR #### [address] [address] Neutrophil %, Manual 83.0 % High 50.0-75.0 [facility] Comment on above: Performed By: #### A DIFF, CBC, BMP, ANEU, MG, GFR #### [address] [address] Neutrophil, Abs Manual 8.2 10 3/mcL High 2.3-8.1 [facility] Comment on above: Performed By: #### A DIFF, CBC, BMP, ANEU, MG, GFR #### [place] [address] Nucleated RBC 0.0 /100 WBC Normal [facility] Comment on above: Performed By: #### A DIFF, CBC, BMP, ANEU, MG, GFR #### [place] [address] .Morphon 10-28-2024 Platelet Estimate Normal Normal [facility] Comment on above: Performed By: #### A DIFF, CBC, BMP, ANEU, MG, GFR #### [place] [address] RBC morphology finding Nom (Bld) Normal Normal [facility] Comment on above: Performed By: #### A DIFF, CBC, BMP, ANEU, MG, GFR #### [place] [address] Toxic Gran 1+ Normal [facility] Comment on above: Performed By: #### A DIFF, CBC, BMP, ANEU, MG, GFR #### [address] 10-28-2024 Erythrocyte distribution width (RBC) [Ratio] 14.1 % Normal 11.5-15.5 [facility] Comment on above: Performed By: #### A DIFF, CBC, BMP, ANEU, MG, GFR #### [place] [address] Hematocrit (Bld) [Volume fraction] 35.4 % Low 40.0-52.0 [facility] Comment on above: Performed By: #### A DIFF, CBC, BMP, ANEU, MG, GFR #### [place] [address] Hgb 12.2 G/dL Low 13.0-17.5 [facility] Comment on above: Performed By: #### A DIFF, CBC, BMP, ANEU, MG, GFR #### [place] [address] MCH (RBC) [Entitic mass] 31.4 pg Normal 27.0-33.0 [facility] Comment on above: Performed By: #### A DIFF, CBC, BMP, ANEU, MG, GFR #### [place] [address] MCHC 34.4 G/dL Normal 32.0-36.0 [facility] Comment on above: Performed By: #### A DIFF, CBC, BMP, ANEU, MG, GFR #### [place] [address] MCV (RBC) [Entitic vol] 91.5 fL Normal 81.0-100.0 [facility] Comment on above: Performed By: #### A DIFF, CBC, BMP, ANEU, MG, GFR #### [place] [address] Platelet 311 10 3/mcL Normal 150-450 [facility] Comment on above: Performed By: #### A DIFF, CBC, BMP, ANEU, MG, GFR #### [place] [address] Platelet mean volume (Bld) [Entitic vol] 7.3 fL Normal 6.4-10.5 [facility] Comment on above: Performed By: #### A DIFF, CBC, BMP, ANEU, MG, GFR #### [place] [address] RBC 3.87 10 6/mcL Low 4.50-6.00 [facility] Comment on above: Performed By: #### A DIFF, CBC, BMP, ANEU, MG, GFR #### [place] [address] WBC 9.9 10 3/mcL Normal 4.5-10.8 [facility] Comment on above: Performed By: #### A DIFF, CBC, BMP, ANEU, MG, GFR #### [place] [address] CMPon 10-28-2024 Albumin Level 3.0 G/dL Low 3.2-4.8 [facility] Comment on above: Performed By: #### A DIFF, CBC, BMP, ANEU, MG, GFR #### [address] [address] Albumin/Globulin [Mass ratio] 0.9 {ratio} Normal 0.9-1.6 [facility] Comment on above: Performed By: #### A DIFF, CBC, BMP, ANEU, MG, GFR #### [address] [address] ALP [Catalytic activity/Vol] 74 U/L Normal 38-126 [facility] Comment on above: Performed By: #### A DIFF, CBC, BMP, ANEU, MG, GFR #### [place] [id number] ALT [Catalytic activity/Vol] 41 U/L Normal 12-55 [facility] Comment on above: Performed By: #### A DIFF, CBC, BMP, ANEU, MG, GFR #### [place] [id number] AST [Catalytic activity/Vol] 30 U/L Normal 8-34 [facility] Comment on above: Performed By: #### A DIFF, CBC, BMP, ANEU, MG, GFR #### [place] [id number] Bili Total 0.60 mg/dL Normal 0.20-1.20 [facility] Comment on above: Result Comment: Use of this assay is not recommended for patients undergoing treatment with eltrombopag due to the potential for falsely elevated results. Performed By: #### A DIFF, CBC, BMP, ANEU, MG, GFR #### [place] [id number] BUN/Creatinine Ratio 37.9 ratio High 10.0-22.0 [facility] Comment on above: Performed By: #### A DIFF, CBC, BMP, ANEU, MG, GFR #### [place] [id number] Calcium [Mass/Vol] 9.7 mg/dL Normal 8.7-10.4 [facility] Comment on above: Performed By: #### A DIFF, CBC, BMP, ANEU, MG, GFR #### [place] [id number] Chloride [Moles/Vol] 95 mmol/L Low 98-110 [facility] Comment on above: Performed By: #### A DIFF, CBC, BMP, ANEU, MG, GFR #### [address] [address] CO2 [Moles/Vol] 27 mmol/L Normal 22-32 [facility] Comment on above: Performed By: #### A DIFF, CBC, BMP, ANEU, MG, GFR #### [address] [address] Creatinine [Mass/Vol] 0.66 mg/dL Normal 0.60-1.40 [facility] Comment on above: Result Comment: Test ing performed on [employer] analyzer using enzymatic creatinine methodology. Performed By: #### A DIFF, CBC, BMP, ANEU, MG, GFR #### [address] [address] Electrolyte Balance 12.0 mEq/L Normal 4.0-15.0 [facility] Comment on above: Performed By: #### A DIFF, CBC, BMP, ANEU, MG, GFR #### [address] [address] Globulin 3.4 G/dL Normal 2.5-4.2 [facility] Comment on above: Performed By: #### A DIFF, CBC, BMP, ANEU, MG, GFR #### [address] [address] Glucose [Mass/Vol] 200 mg/dL High 82-115 [facility] Comment on above: Performed By: #### A DIFF, CBC, BMP, ANEU, MG, GFR #### [address] [address] Potassium [Moles/Vol] 3.6 mmol/L Normal 3.5-5.0 [facility] Comment on above: Performed By: #### A DIFF, CBC, BMP, ANEU, MG, GFR #### [address] [address] Sodium [Moles/Vol] 134 mmol/L Low 136-145 [facility] Comment on above: Performed By: #### A DIFF, CBC, BMP, ANEU, MG, GFR #### [facility] [address] [place] [address] Total Protein 6.4 G/dL Normal 5.7-8.2 [facility] Comment on above: Performed By: #### A DIFF, CBC, BMP, ANEU, MG, GFR #### [facility] [address] [place] [address] Urea nitrogen [Mass/Vol] 25.0 mg/dL High 8.0-22.0 [facility] Comment on above: Performed By: #### A DIFF, CBC, BMP, ANEU, MG, GFR #### [facility] [address] [place] [id number] LABORATORYOrdered By: Kelli Swartz on 10-28-2024 Blood Glucose Testing Reason Routine (10/28/24 10:14 PM) [facility] Glucose [Mass/Vol] 270 mg/dL High 82 - 115 mg/dL [facility] LABORATORYOrdered By: SYSTEM SYSTEM on 10-28-2024 Albumin BCP dye [Mass/Vol] 3.0 G/dL Low 3.2 - 4.8 G/dL ADM SS Albumin/Globulin [Mass ratio] 0.9 {ratio} Normal 0.9 - 1.6 ratio ADM SS ALP [Catalytic activity/Vol] 74 U/L Normal 38 - 126 U/L ADM SS ALT No additional P-5'-P [Catalytic activity/Vol] 41 U/L Normal 12 - 55 U/L ADM SS AST [Catalytic activity/Vol] 30 U/L Normal 8 - 34 U/L ADM SS Basophils (Bld) [#/Vol] 0.0 103/mcL [...] mg/dL Normal 8.7 - 10. 4 mg/dL ADM SS Chloride [Moles/Vol] 95 mmol/L Low 98 - 11 0 mEq/L ADM SS CO2 [Moles/Vol] 27 mmol/L Normal 22 - 32 mEq/L ADM SS Creatinine [Mass/Vol] 0.66 mg/dL Normal 0.60 - 1.40 mg/dL AH ADM SS Comment on above: Interpretive Data: T esting performed on [employer] analyzer using enzymatic creatinine methodology. Electrolyte Balance [...] 1.1 103/mcL Normal 0.9 - 4.3 10^3/mcL AH Workflow SS Lymphocytes/100 WBC (Bld) 11.0 % Low 20.0 - 40.0 % AH Workflow SS Magnesium [Mass/Vol] 1.8 mg/dL Normal 1.6 - 2 .4 mg/dL AH ADM SS MCH (RBC) [Entitic mass] 31.4 pg Normal 27.0 - 33.0 pg AH Workflow SS MCHC 34.4 G/dL Normal 32.0 [...] RBC 0.0 /100 WBC Invalid Interpretation Code AH Workflow SS Platelet mean volume (Bld) [Entitic vol] 7.3 fL Normal 6.4 - 10.5 fL AH Workflow SS Platelets (Bld) [#/Vol] 311 103/mcL Normal 150 - 450 10^3/mcL AH Workflow SS Platelets LM Ql (Bld) Normal *NA* (10/28/24 4:23 AM) Invalid Interpretation Code AH Workflow SS Potassium [Moles/Vol] 3.6 mmol/L Normal 3.5 - 5.0 mEq/L ADM SS Protein [Mass/Vol] 6.4 G/dL Normal 5.7 - 8.2 G/dL AH ADM SS RBC (Bld) [#/Vol] 3.87 106/mcL Low 4.50 - 6.0 0 10^6/mcL AH Workflow SS RBC morphology finding Nom (Bld) Normal *NA* (10/28/24 4:23 AM) Invalid Interpretation Code AH Workflow SS Sodium [Moles/Vol] 134 mmol/L Low 136 - 145 mEq/L ADM SS Toxic granules LM Ql (Bld) 1+ *NA* (10/28/24 4:23 AM) Invalid Interpretation Code AH Workflow SS Urea nitrogen [Mass/Vol] 25.0 mg/dL High 8.0 - 22.0 mg/dL AH ADM SS Urea nitrogen/Creatinine [Mass ratio] 37.9 ratio High 10.0 - 22.0 ratio AH ADM SS WBC (Bld) [#/Vol] 9.9 103/mcL Normal 4.5 - 10.8 10^3/mcL AH Workflow SS MGon 10-28-2024 Magnesium [Mass/Vol] 1.8 mg/dL Normal 1.6-2.4 [facility] Comment on above: Performed By: #### A DIFF, CBC, BMP, ANEU, MG, GFR #### [place] [address] XR CHEST 1 VIEWon 10-28-2024 XR CHEST [...] 4:31:31 PM Ordering Provider: ROSI PRADO Normal [facility] .Auto Diffon 06-24-2025 Basophil, Absolute 0.0 10 3/mcL Normal 0.0-0.3 [facility] Comment on above: Performed By: #### A DIFF, CBC, BMP, ANEU, MG, GFR #### [address] [address] Basophils/100 WBC (Bld) 0.1 % Normal 0.0-2.5 [facility] Comment on above: Performed By: #### A DIFF, CBC, BMP, ANEU, MG, GFR #### [address] [address] Eosinophil, Absolute 0.0 10 3/mcL Normal 0.0-0.7 [facility] Comment on above: Performed By: #### A DIFF, CBC, BMP, ANEU, MG, GFR #### [address] [address] Eosinophils/100 WBC (Bld) 0.5 % Normal 0.0-6.0 [facility] Comment on above: Performed By: #### A DIFF, CBC, BMP, ANEU, MG, GFR #### [address] [address] Lymphocyte, Absolute 0.9 10 3/mcL Normal 0.9-4.3 [facility] Comment on above: Performed By: #### A DIFF, CBC, BMP, ANEU, MG, GFR #### [address] [address] Lymphocytes/100 WBC (Bld) 9.3 % Low 20.0-40.0 [facility] Comment on above: Performed By: #### A DIFF, CBC, BMP, ANEU, MG, GFR #### [address] [address] Monocyte, Absolute 0.7 10 3/mcL Normal 0.1-1.4 [facility] Comment on above: Performed By: #### A DIFF, CBC, BMP, ANEU, MG, GFR #### [address] [address] Monocytes/100 WBC (Bld) 7.4 % Normal 2.0-13.0 [facility] Comment on above: Performed By: #### A DIFF, CBC, BMP, ANEU, MG, GFR #### [address] [address] Neutrophils/100 WBC (Bld) 82.7 % High 50.0-75.0 [facility] Comment on above: Performed By: #### A DIFF, CBC, BMP, ANEU, MG, GFR #### [address] [address] .GFRon 10-27-2024 Estimated Glomerular Filtration Rate 93 ml/min/1.73sqm Normal [facility] Comment on above: Result Comment: Stages [...] DIFF, CBC, BMP, ANEU, MG, GFR #### [address] [address] .NEUABSon 10-27-2024 Neutrophil, Absolute 8.1 10 3/mcL Normal 2.3-8.1 [facility] Comment on above: Performed By: #### A DIFF, CBC, BMP, ANEU, MG, GFR #### [address] [address] CBCon 10-27-2024 Erythrocyte distribution width (RBC) [Ratio] 14.3 % Normal 11.5-15.5 [facility] Comment on above: Performed By: #### A DIFF, CBC, BMP, ANEU, MG, GFR #### [address] [address] Hematocrit (Bld) [Volume fraction] 35.2 % Low 40.0-52.0 [facility] Comment on above: Performed By: #### A DIFF, CBC, BMP, ANEU, MG, GFR #### [address] [address] Hgb 12.2 G/dL Low 13.0-17.5 [facility] Comment on above: Performed By: #### A DIFF, CBC, BMP, ANEU, MG, GFR #### [address] [address] MCH (RBC) [Entitic mass] 31.6 pg Normal 27.0-33.0 [facility] Comment on above: Performed By: #### A DIFF, CBC, BMP, ANEU, MG, GFR #### [place] [address] MCHC 34.8 G/dL Normal 32.0-36.0 [facility] Comment on above: Performed By: #### A DIFF, CBC, BMP, ANEU, MG, GFR #### [place] [address] MCV (RBC) [Entitic vol] 91.0 fL Normal 81.0-100.0 [facility] Comment on above: Performed By: #### A DIFF, CBC, BMP, ANEU, MG, GFR #### [place] [address] Platelet 288 10 3/mcL Normal 150-450 [facility] Comment on above: Performed By: #### A DIFF, CBC, BMP, ANEU, MG, GFR #### [place] [address] Platelet mean volume (Bld) [Entitic vol] 7.5 fL Normal 6.4-10.5 [facility] Comment on above: Performed By: #### A DIFF, CBC, BMP, ANEU, MG, GFR #### [place] [id number] RBC 3.87 10 6/mcL Low 4.50-6.00 [facility] Comment on above: Performed By: #### A DIFF, CBC, BMP, ANEU, MG, GFR #### [place] [address] WBC 9.8 10 3/mcL Normal 4.5-10.8 [facility] Comment on above: Performed By: #### A DIFF, CBC, BMP, ANEU, MG, GFR #### [place] [id number] CMPon 10-27-2024 Albumin Level 2.9 G/dL Low 3.2-4.8 [facility] Comment on above: Performed By: #### A DIFF, CBC, BMP, ANEU, MG, GFR #### [place] [address] Albumin/Globulin [Mass ratio] 0.9 {ratio} Normal 0.9-1.6 [facility] Comment on above: Performed By: #### A DIFF, CBC, BMP, ANEU, MG, GFR #### [place] [address] ALP [Catalytic activity/Vol] 68 U/L Normal 38-126 [facility] Comment on above: Performed By: #### A DIFF, CBC, BMP, ANEU, MG, GFR #### [place] [address] ALT [Catalytic activity/Vol] 39 U/L Normal 12-55 [facility] Comment on above: Performed By: #### A DIFF, CBC, BMP, ANEU, MG, GFR #### [place] [address] AST [Catalytic activity/Vol] 34 U/L Normal 8-34 [facility] Comment on above: Performed By: #### A DIFF, CBC, BMP, ANEU, MG, GFR #### [place] [address] Bili Total 0.60 mg/dL Normal 0.20-1.20 [facility] Comment on above: Result Comment: Use of this assay is not recommended for patients undergoing treatment with eltrombopag due to the potential for falsely elevated results. Performed By: #### A DIFF, CBC, BMP, ANEU, MG, GFR #### [place] [address] BUN/Creatinine Ratio 39.1 ratio High 10.0-22.0 [facility] Comment on above: Performed By: #### A DIFF, CBC, BMP, ANEU, MG, GFR #### [address] [address] Calcium [Mass/Vol] 9.4 mg/dL Normal 8.7-10.4 [facility] Comment on above: Performed By: #### A DIFF, CBC, BMP, ANEU, MG, GFR #### [address] [address] Chloride [Moles/Vol] 93 mmol/L Low 98-110 [facility] Comment on above: Performed By: #### A DIFF, CBC, BMP, ANEU, MG, GFR #### [address] [address] CO2 [Moles/Vol] 31 mmol/L Normal 22-32 [facility] Comment on above: Performed By: #### A DIFF, CBC, BMP, ANEU, MG, GFR #### [address] [address] Creatinine [Mass/Vol] 0.64 mg/dL Normal 0.60-1.40 [facility] Comment on above: Result Comment: Test ing performed on [employer] analyzer using enzymatic creatinine methodology. Performed By: #### A DIFF, CBC, BMP, ANEU, MG, GFR #### [address] [address] Electrolyte Balance 7.0 mEq/L Normal 4.0-15.0 [facility] Comment on above: Performed By: #### A DIFF, CBC, BMP, ANEU, MG, GFR #### [address] [address] Globulin 3.3 G/dL Normal 2.5-4.2 [facility] Comment on above: Performed By: #### A DIFF, CBC, BMP, ANEU, MG, GFR #### [address] [address] Glucose [Mass/Vol] 192 mg/dL High 82-115 [facility] Comment on above: Performed By: #### A DIFF, CBC, BMP, ANEU, MG, GFR #### [address] [address] Potassium [Moles/Vol] 3.9 mmol/L Normal 3.5-5.0 [facility] Comment on above: Performed By: #### A DIFF, CBC, BMP, ANEU, MG, GFR #### [address] [address] Sodium [Moles/Vol] 131 mmol/L Low 136-145 [facility] Comment on above: Performed By: #### A DIFF, CBC, BMP, ANEU, MG, GFR #### [address] [address] Total Protein 6.2 G/dL Normal 5.7-8.2 [facility] Comment on above: Performed By: #### A DIFF, CBC, BMP, ANEU, MG, GFR #### [address] [address] Urea nitrogen [Mass/Vol] 25.0 mg/dL High 8.0-22.0 [facility] Comment on above: Performed By: #### A DIFF, CBC, BMP, ANEU, MG, GFR #### [address] [address] [address] THORAX W/ CONTRASTon 10-05 CT THORAX [...] 10/27/2024 3:57:32 AM Ordering Provider: BELKYS ALCANTAR [facility] MAIN LABORATORYOrdered By: SYSTEM SYSTEM on [...] mg/dL Normal 8.7 - 10. 4 mg/dL ADM SS Chloride [Moles/Vol] 93 mmol/L Low 98 - 11 0 mEq/L ADM SS CO2 [Moles/Vol] 31 mmol/L Normal 22 - 32 mEq/L ADM SS Creatinine [Mass/Vol] 0.64 mg/dL Normal 0.60 - 1.40 mg/dL ADM SS Comment on above: Interpretive Data: T esting performed on [employer] analyzer using enzymatic creatinine methodology. Electrolyte Balance [...] 0.9 103/mcL Normal 0.9 - 4.3 10^3/mcL AH Workflow SS Lymphocytes/100 WBC (Bld) 9.3 % Low 20.0 - 40.0 % AH Workflow SS Magnesium [Mass/Vol] 1.8 mg/dL Normal [...] 39.1 ratio High 10.0 - 22.0 ratio AH ADM SS WBC (Bld) [#/Vol] 9.8 103/mcL Normal 4.5 - 10.8 10^3/mcL AH Workflow SS MGon 10-27-2024 Magnesium [Mass/Vol] 1.8 mg/dL Normal 1.6-2.4 [facility] Comment on above: Performed By: #### A DIFF, CBC, BMP, ANEU, MG, GFR #### [address] [address] .Auto Diffon 10-26-2024 Basophil, Absolute 0.0 10 3/mcL Normal 0.0-0.3 [facility] Comment on above: Performed By: #### A DIFF, CBC, BMP, ANEU, MG, GFR #### [address] [address] Basophils/100 WBC (Bld) 0.2 % Normal 0.0-2.5 [facility] Comment on above: Performed By: #### A DIFF, CBC, BMP, ANEU, MG, GFR #### [address] [address] Eosinophil, Absolute 0.0 10 3/mcL Normal 0.0-0.7 [facility] Comment on above: Performed By: #### A DIFF, CBC, BMP, ANEU, MG, GFR #### [address] [address] Eosinophils/100 WBC (Bld) 0.6 % Normal 0.0-6.0 [facility] Comment on above: Performed By: #### A DIFF, CBC, BMP, ANEU, MG, GFR #### [address] [address] Lymphocyte, Absolute 1.0 10 3/mcL Normal 0.9-4.3 [facility] Comment on above: Performed By: #### A DIFF, CBC, BMP, ANEU, MG, GFR #### [address] [address] Lymphocytes/100 WBC (Bld) 11.3 % Low 20.0-40.0 [facility] Comment on above: Performed By: #### A DIFF, CBC, BMP, ANEU, MG, GFR #### [address] [address] Monocyte, Absolute 0.8 10 3/mcL Normal 0.1-1.4 [facility] Comment on above: Performed By: #### A DIFF, CBC, BMP, ANEU, MG, GFR #### [address] [address] Monocytes/100 WBC (Bld) 9.4 % Normal 2.0-13.0 [facility] Comment on above: Performed By: #### A DIFF, CBC, BMP, ANEU, MG, GFR #### [address] [address] Neutrophils/100 WBC (Bld) 78.5 % High 50.0-75.0 [facility] Comment on above: Performed By: #### A DIFF, CBC, BMP, ANEU, MG, GFR #### [address] [address] .GFRon 10-26-2024 Estimated Glomerular Filtration Rate 96 ml/min/1.73sqm Normal [facility] Comment on above: Result Comment: Stages [...] DIFF, CBC, BMP, ANEU, MG, GFR #### [address] [address] .NEUABSon 10-26-2024 Neutrophil, Absolute 6.8 10 3/mcL Normal 2.3-8.1 [facility] Comment on above: Performed By: #### A DIFF, CBC, BMP, ANEU, MG, GFR #### [address] [address] CBCon 10-26-2024 Erythrocyte distribution width (RBC) [Ratio] 14.0 % Normal 11.5-15.5 [facility] Comment on above: Performed By: #### A DIFF, CBC, BMP, ANEU, MG, GFR #### [place] [address] Hematocrit (Bld) [Volume fraction] 37.1 % Low 40.0-52.0 [facility] Comment on above: Performed By: #### A DIFF, CBC, BMP, ANEU, MG, GFR #### [place] [address] Hgb 12.7 G/dL Low 13.0-17.5 [facility] Comment on above: Performed By: #### A DIFF, CBC, BMP, ANEU, MG, GFR #### [place] [id number] MCH (RBC) [Entitic mass] 31.5 pg Normal 27.0-33.0 [facility] Comment on above: Performed By: #### A DIFF, CBC, BMP, ANEU, MG, GFR #### [place] [address] MCHC 34.4 G/dL Normal 32.0-36.0 [facility] Comment on above: Performed By: #### A DIFF, CBC, BMP, ANEU, MG, GFR #### [place] [address] MCV (RBC) [Entitic vol] 91.8 fL Normal 81.0-100.0 [facility] Comment on above: Performed By: #### A DIFF, CBC, BMP, ANEU, MG, GFR #### [place] [address] Platelet 258 10 3/mcL Normal 150-450 [facility] Comment on above: Performed By: #### A DIFF, CBC, BMP, ANEU, MG, GFR #### [place] [address] Platelet mean volume (Bld) [Entitic vol] 7.4 fL Normal 6.4-10.5 [facility] Comment on above: Performed By: #### A DIFF, CBC, BMP, ANEU, MG, GFR #### [address] [address] RBC 4.04 10 6/mcL Low 4.50-6.00 [facility] Comment on above: Performed By: #### A DIFF, CBC, BMP, ANEU, MG, GFR #### [address] [address] WBC 8.7 10 3/mcL Normal 4.5-10.8 [facility] Comment on above: Performed By: #### A DIFF, CBC, BMP, ANEU, MG, GFR #### [place] [id number] CMPon 10-26-2024 Albumin Level 3.1 G/dL Low 3.2-4.8 [facility] Comment on above: Performed By: #### A DIFF, CBC, BMP, ANEU, MG, GFR #### [place] [address] Albumin/Globulin [Mass ratio] 1.0 {ratio} Normal 0.9-1.6 [facility] Comment on above: Performed By: #### A DIFF, CBC, BMP, ANEU, MG, GFR #### [place] [address] ALP [Catalytic activity/Vol] 62 U/L Normal 38-126 [facility] Comment on above: Performed By: #### A DIFF, CBC, BMP, ANEU, MG, GFR #### [address] [address] ALT [Catalytic activity/Vol] 26 U/L Normal 12-55 [facility] Comment on above: Performed By: #### A DIFF, CBC, BMP, ANEU, MG, GFR #### [address] [address] AST [Catalytic activity/Vol] 27 U/L Normal 8-34 [facility] Comment on above: Performed By: #### A DIFF, CBC, BMP, ANEU, MG, GFR #### [place] [address] Bili Total 0.70 mg/dL Normal 0.20-1.20 [facility] Comment on above: Result Comment: Use of this assay is not recommended for patients undergoing treatment with eltrombopag due to the potential for falsely elevated results. Performed By: #### A DIFF, CBC, BMP, ANEU, MG, GFR #### [place] [id number] BUN/Creatinine Ratio 39.7 ratio High 10.0-22.0 [facility] Comment on above: Performed By: #### A DIFF, CBC, BMP, ANEU, MG, GFR #### [place] [id number] Calcium [Mass/Vol] 9.2 mg/dL Normal 8.7-10.4 [facility] Comment on above: Performed By: #### A DIFF, CBC, BMP, ANEU, MG, GFR #### [place] [address] Chloride [Moles/Vol] 91 mmol/L Low 98-110 [facility] Comment on above: Performed By: #### A DIFF, CBC, BMP, ANEU, MG, GFR #### [place] [address] CO2 [Moles/Vol] 28 mmol/L Normal 22-32 [facility] Comment on above: Performed By: #### A DIFF, CBC, BMP, ANEU, MG, GFR #### [place] [address] Creatinine [Mass/Vol] 0.58 mg/dL Low 0.60-1.40 [facility] Comment on above: Result Comment: Test ing performed on [employer] analyzer using enzymatic creatinine methodology. Performed By: #### A DIFF, CBC, BMP, ANEU, MG, GFR #### [place] [id number] Electrolyte Balance 10.0 mEq/L Normal 4.0-15.0 [facility] Comment on above: Performed By: #### A DIFF, CBC, BMP, ANEU, MG, GFR #### [place] [id number] Globulin 3.2 G/dL Normal 2.5-4.2 [facility] Comment on above: Performed By: #### A DIFF, CBC, BMP, ANEU, MG, GFR #### [address] [address] Glucose [Mass/Vol] 154 mg/dL High 82-115 [facility] Comment on above: Performed By: #### A DIFF, CBC, BMP, ANEU, MG, GFR #### [address] [address] Potassium [Moles/Vol] 3.9 mmol/L Normal 3.5-5.0 [facility] Comment on above: Performed By: #### A DIFF, CBC, BMP, ANEU, MG, GFR #### [address] [address] Sodium [Moles/Vol] 129 mmol/L Low 136-145 [facility] Comment on above: Performed By: #### A DIFF, CBC, BMP, ANEU, MG, GFR #### [address] [address] Total Protein 6.3 G/dL Normal 5.7-8.2 [facility] Comment on above: Performed By: #### A DIFF, CBC, BMP, ANEU, MG, GFR #### [address] [address] Urea nitrogen [Mass/Vol] 23.0 mg/dL High 8.0-22.0 [facility] Comment on above: Performed By: #### A DIFF, CBC, BMP, ANEU, MG, GFR #### [address] [address] LABORATORYOrdered By: SYSTEM SYSTEM on 10-26-2024 Basophils [...] 6.8 103/mcL Normal 2.3 - 8.1 10^3/mcL Workflow SS Neutrophils/100 WBC (Bld) 78.5 % High 50.0 - 75.0 % Workflow SS MGon 10-26-2024 Magnesium [Mass/Vol] 1.9 mg/dL Normal 1.6-2.4 [facility] Comment on above: Performed By: #### A DIFF, CBC, BMP, ANEU, MG, GFR #### [address] [address] XR CHEST 1 VIEWon 10-26-2024 XR CHEST [...] Date: 10/26/2024 10:31:55 AM Ordering Provider: DEIDRA RODRIGUEZ Normal [facility] .Auto Diffon 10-25-2024 Basophil, Absolute 0.0 10 3/mcL Normal 0.0-0.3 [facility] Comment on above: Performed By: #### U A, UAMIC #### [address] [address] Basophils/100 WBC (Bld) 0.4 % Normal 0.0-2.5 [facility] Comment on above: Performed By: #### Anatoly Valdivia UAMIC #### [address] [address] Eosinophil, Absolute 0.1 10 3/mcL Normal 0.0-0.7 [facility] Comment on above: Performed By: #### Anatoly Valdivia UAMIC #### [address] [address] Eosinophils/100 WBC (Bld) 0.9 % Normal 0.0-6.0 [facility] Comment on above: Performed By: #### Anatoly Valdivia UAMIC #### [address] [address] Lymphocyte, Absolute 0.7 10 3/mcL Low 0.9-4.3 [facility] Comment on above: Performed By: #### Anatoly Valdivia UAMIC #### [address] [address] Lymphocytes/100 WBC (Bld) 9.2 % Low 20.0-40.0 [facility] Comment on above: Performed By: #### Anatoly Valdivia UAMIC #### [address] [address] Monocyte, Absolute 0.8 10 3/mcL Normal 0.1-1.4 [facility] Comment on above: Performed By: #### Anatoly Valdivia UAMIC #### [address] [address] Monocytes/100 WBC (Bld) 10.0 % Normal 2.0-13.0 [facility] Comment on above: Performed By: #### Anatoly Valdivia UAMIC #### [address] [address] Neutrophils/100 WBC (Bld) 79.5 % High 50.0-75.0 [facility] Comment on above: Performed By: #### Anatoly Valdivia UAMIC #### [address] [address] .GFRon 10-25-2024 Estimated Glomerular Filtration Rate 93 ml/min/1.73sqm Normal [facility] Comment on above: Result Comment: Stages [...] results. Performed By: #### BERNA Frank #### [place] [address] .NEUABSon 10-25-2024 Neutrophil, Absolute 6.2 10 3/mcL Normal 2.3-8.1 [facility] Comment on above: Performed By: #### BERNA Frank #### [place] [id number] B12on 10-25-2024 Cobalamin (Vitamin B12) [Mass/Vol] 377 pg/mL Normal 211-911 [facility] Comment on above: Performed By: #### BERNA Frank #### [place] [id number] BGon 10-25-2024 Base excess Calc (Bld) [Moles/Vol] 1.2 mmol/L Normal [facility] Comment on above: Performed By: #### B G #### [place] [id number] CO2 [Moles/Vol] 25.2 mmol/L Normal 22.0-30.0 [facility] Comment on above: Performed By: #### B G #### [place] [id number] HCO3 (Bld) [Moles/Vol] 24.2 mmol/L Normal 21.0-29.0 [facility] Comment on above: Performed By: #### B G #### [address] [address] Oxygen (Bld) [Partial pressure] 107.5 mm[Hg] Normal 74.0-108.0 [facility] Comment on above: Performed By: #### B G #### [address] [address] Oxygen saturation in Blood 98.4 % High 92.0-96.0 [facility] Comment on above: Performed By: #### B G #### [address] [address] pCO2 33.2 mmHg Normal 32.0-46.0 [facility] Comment on above: Performed By: #### B G #### [address] [address] pH (Bld) 7.480 [pH] High 7.380-7.460 [facility] Comment on above: Performed By: #### B G #### [address] [address] Base excess Calc (Bld) [Moles/Vol] 3.1 mmol/L Normal [facility] Comment on above: Performed By: #### B G #### [address] [address] CO2 [Moles/Vol] 26.6 mmol/L Normal 22.0-30.0 [facility] Comment on above: Performed By: #### B G #### [address] [address] HCO3 (Bld) [Moles/Vol] 25.6 mmol/L Normal 21.0-29.0 [facility] Comment on above: Performed By: #### B G #### [address] [address] Oxygen (Bld) [Partial pressure] 35.7 mm[Hg] Critically abnormal 74.0-108.0 [facility] Comment on above: Performed By: #### B G #### [address] [address] Oxygen saturation in Blood 74.9 % Low 92.0-96.0 [facility] Comment on above: Performed By: #### B G #### [place] [id number] pCO2 33.0 mmHg Normal 32.0-46.0 [facility] Comment on above: Performed By: #### B G #### [place] [id number] pH (Bld) 7.508 [pH] High 7.380-7.460 [facility] Comment on above: Performed By: #### B G #### [place] [address] CBCon 10-25-2024 Erythrocyte distribution width (RBC) [Ratio] 13.5 % Normal 11.5-15.5 [facility] Comment on above: Performed By: #### BERNA Frank #### [place] [address] Hematocrit (Bld) [Volume fraction] 38.0 % Low 40.0-52.0 [facility] Comment on above: Performed By: #### BERNA Frank #### [place] [address] Hgb 13.0 G/dL Normal 13.0-17.5 [facility] Comment on above: Performed By: #### BERNA Frank #### [place] [address] MCH (RBC) [Entitic mass] 31.6 pg Normal 27.0-33.0 [facility] Comment on above: Performed By: #### BERNA Frank #### [place] [address] MCHC 34.4 G/dL Normal 32.0-36.0 [facility] Comment on above: Performed By: #### BERNA Frank #### [place] [id number] MCV (RBC) [Entitic vol] 91.9 fL Normal 81.0-100.0 [facility] Comment on above: Performed By: #### BERNA Frank #### [place] [address] Platelet 258 10 3/mcL Normal 150-450 [facility] Comment on above: Performed By: #### U Shea UAMIC #### [place] [address] Platelet mean volume (Bld) [Entitic vol] 7.5 fL Normal 6.4-10.5 [facility] Comment on above: Performed By: #### U Shea UAMIC #### [place] [address] RBC 4.13 10 6/mcL Low 4.50-6.00 [facility] Comment on above: Performed By: #### U Shea UAMIC #### [place] [address] WBC 7.8 10 3/mcL Normal 4.5-10.8 [facility] Comment on above: Performed By: #### Anatoly Valdivia UAMIC #### [place] [address] CMPon 10-25-2024 Albumin Level 3.6 G/dL Normal 3.2-4.8 [facility] Comment on above: Performed By: #### Anatoly Valdivia UAMIC #### [place] [address] Albumin/Globulin [Mass ratio] 1.1 {ratio} Normal 0.9-1.6 [facility] Comment on above: Performed By: #### Anatoly Valdivia UAMIC #### [place] [address] ALP [Catalytic activity/Vol] 73 U/L Normal 38-126 [facility] Comment on above: Performed By: #### U Shea UAMIC #### [place] [id number] ALT [Catalytic activity/Vol] 19 U/L Normal 12-55 [facility] Comment on above: Performed By: #### U Shea UAMIC #### [place] [id number] AST [Catalytic activity/Vol] 24 U/L Normal 8-34 [facility] Comment on above: Performed By: #### U Shea UAMIC #### [address] [address] Bili Total 0.70 mg/dL Normal 0.20-1.20 [facility] Comment on above: Result Comment: Use of this assay is not recommended for patients undergoing treatment with eltrombopag due to the potential for falsely elevated results. Performed By: #### U A UAMIC #### [place] [id number] BUN/Creatinine Ratio 20.3 ratio Normal 10.0-22.0 [facility] Comment on above: Performed By: #### U A UAMIC #### [place] [id number] Calcium [Mass/Vol] 8.8 mg/dL Normal 8.7-10.4 [facility] Comment on above: Performed By: #### U Shea UAMIC #### [place] [address] Chloride [Moles/Vol] 87 mmol/L Low 98-110 [facility] Comment on above: Performed By: #### U Shea UAMIC #### [place] [id number] CO2 [Moles/Vol] 27 mmol/L Normal 22-32 [facility] Comment on above: Performed By: #### U Shea UAMIC #### [place] [id number] Creatinine [Mass/Vol] 0.64 mg/dL Normal 0.60-1.40 [facility] Comment on above: Result Comment: Test ing performed on [employer] analyzer using enzymatic creatinine methodology. Performed By: #### U A UAMIC #### [place] [id number] Electrolyte Balance 16.0 mEq/L High 4.0-15.0 [facility] Comment on above: Performed By: #### U A UAMIC #### [place] [id number] Globulin 3.3 G/dL Normal 2.5-4.2 [facility] Comment on above: Performed By: #### U Shea UAMIC #### [place] [id number] Glucose [Mass/Vol] 169 mg/dL High 82-115 [facility] Comment on above: Performed By: #### SANTANA FrankMIC #### [place] [address] Potassium [Moles/Vol] 3.3 mmol/L Low 3.5-5.0 [facility] Comment on above: Performed By: #### SANTANA FrankMIC #### [place] [address] Sodium [Moles/Vol] 130 mmol/L Low 136-145 [facility] Comment on above: Performed By: #### BERNA Frank #### [place] [address] Total Protein 6.9 G/dL Normal 5.7-8.2 [facility] Comment on above: Performed By: #### BERNA Frank #### [place] [address] Urea nitrogen [Mass/Vol] 13.0 mg/dL Normal 8.0-22.0 [facility] Comment on above: Performed By: #### BERNA Frank #### [place] [address] CVFLURVon 10-25-2024 FLU A PCR Negative Normal Negative [facility] Comment on above: Result Comment: Note s Performed By: #### BERNA Frank #### [place] [address] FLU B PCR Negative Normal Negative [facility] Comment on above: Result Comment: Note s Performed By: #### SANTANA FrankMIC #### [place] [address] RSV PCR Negative Normal Negative [facility] Comment on above: Result Comment: Note s Performed By: #### BERNA Frank #### [place] [address] SARS-CoV-2 (COVID-19) RNA MIRNA+probe Ql (Unsp spec) Negative Normal Negative [facility] Comment on above: Result Comment: Note s [id number] Results from the Xpert Xpress SARS-CoV-2/Flu/RSV or [...] results. FDA Approved. Performed By: #### U BERNA Valdivia #### [place] [address] Tres 10-25-2024 Ferritin [Mass/Vol] 108.3 ng/mL Normal 26.0-388.0 [facility] Comment on above: Performed By: #### BERNA Frank #### [place] [address] FESon 10-25-2024 Iron [Mass/Vol] 24 ug/dL Low 65-175 [facility] Comment on above: Performed By: #### B G #### [place] [address] Iron Sat 9 % Normal [facility] Comment on above: Performed By: #### B G #### [place] [address] TIBC 272 mcg/dL Normal 250-500 [facility] Comment on above: Performed By: #### B G #### [place] [address] LABORATORYOrdered By: Olinda Cisneros on 10-25-2024 FLUAV [...] SARS-CoV-2 (COVID-19) RNA MIRNA+probe Ql (Resp) Negative 12, 13 (10/25/24 7:02 AM) Normal Negative AH Auto [...] 25.2 mmol/L Normal 22.0 - 30.0 mmol/L AH Main Rapid Comm SS HCO3 (Bld) [Moles/Vol] 24.2 mmol/L Normal 21.0 - 29.0 mmol/L AH Main Rapid Comm SS Oxygen (Bld) [Partial pressure] 107.5 mm[Hg] Normal 74.0 - 108.0 mm Hg AH Main Rapid Comm SS pCO2 33.2 mm[Hg] Normal 32.0 - 46.0 mm Hg AH Main Rapid Comm SS pH (Bld) 7.480 [pH] High 7.380 - 7.460 Main Rapid Comm SS Sodium [Moles/Vol] 1.2 mmol/L Invalid Interpretation Code Main Rapid Comm SS LABORATORYOrdered By: SYSTEM SYSTEM on 10-25-2024 Basophils (Bld) [#/Vol] 0.0 103/mcL Normal 0.0 - 0.3 10^3/mcL AH Workflow SS Basophils/100 WBC (Bld) 0.4 % [...] 75.0 % Workflow SS LABORATORYOrdered By: Pawel Ibarra urgert on 10-25-2024 CO2 [Moles/Vol] 26.6 mmol/L Normal 22.0 - 30.0 mmol/L Main Rapid Comm SS HCO3 (Bld) [Moles/Vol] 25.6 mmol/L Normal 21.0 - 29.0 mmol/L Main Rapid Comm SS Oxygen (Bld) [Partial pressure] 35.7 mm[Hg] Invalid Interpretation Code 74.0 - 108.0 mm Hg AH Main Rapid Comm SS pCO2 33.0 mm[Hg] Normal 32.0 - 46.0 mm Hg Main Rapid Comm SS pH (Bld) 7.508 [pH] High 7.380 - 7.460 [facility] Main Rapid Comm SS Sodium [Moles/Vol] 3.1 mmol/L Invalid Interpretation Code Main Rapid Comm SS MGon 10-25-2024 Magnesium [Mass/Vol] 1.8 mg/dL Normal 1.6-2.4 [facility] Comment on above: Performed By: #### U BERNA Valdivia #### [place] [address] No Panel Informationon 10-25 Legionella Urine Ag Presumptive negative for L. pneumophila serogroup 1 antigen in urine, suggesting no recent or current infection. Legionnaire's disease cannot be ruled out since other serogroups and species may also cause disease. [facility] Streptococcus Pneumoniae Urine Antig Presumptive negative for pneumococcal pneumonia, suggesting no current or recent pneumococcal infection. Infection due to Strep pneumoniae cannot be ruled out since the antigen present in the sample may be below the detection limit of the test. [facility] Comment on above: This test has [...] 10/25/2024 2:15:00 AM Ordering Provider: LUIS Spangler [facility] .Auto Diffon 10-24-2024 Basophil, Absolute 0.0 10 3/mcL Normal 0.0-0.3 [facility] Comment on above: Performed By: #### A DIFF, CBC, BMP, ANEU, MG, GFR #### [address] [address] Basophils/100 WBC (Bld) 0.5 % Normal 0.0-2.5 [facility] Comment on above: Performed By: #### A DIFF, CBC, BMP, ANEU, MG, GFR #### [address] [address] Eosinophil, Absolute 0.1 10 3/mcL Normal 0.0-0.7 [facility] Comment on above: Performed By: #### A DIFF, CBC, BMP, ANEU, MG, GFR #### [address] [address] Eosinophils/100 WBC (Bld) 1.4 % Normal 0.0-6.0 [facility] Comment on above: Performed By: #### A DIFF, CBC, BMP, ANEU, MG, GFR #### [address] [address] Lymphocyte, Absolute 0.7 10 3/mcL Low 0.9-4.3 [facility] Comment on above: Performed By: #### A DIFF, CBC, BMP, ANEU, MG, GFR #### [address] [address] Lymphocytes/100 WBC (Bld) 9.8 % Low 20.0-40.0 [facility] Comment on above: Performed By: #### A DIFF, CBC, BMP, ANEU, MG, GFR #### [address] [address] Monocyte, Absolute 0.6 10 3/mcL Normal 0.1-1.4 [facility] Comment on above: Performed By: #### A DIFF, CBC, BMP, ANEU, MG, GFR #### [place] [id number] [address] [place] [address] Monocytes/100 WBC (Bld) 7.6 % Normal 2.0-13.0 [facility] Comment on above: Performed By: #### A DIFF, CBC, BMP, ANEU, MG, GFR #### [address] [address] Neutrophils/100 WBC (Bld) 80.7 % High 50.0-75.0 [facility] Comment on above: Performed By: #### A DIFF, CBC, BMP, ANEU, MG, GFR #### [address] [address] .GFRon 10-24-2024 Estimated Glomerular Filtration Rate 99 ml/min/1.73sqm Normal [facility] Comment on above: Result Comment: Stages [...] DIFF, CBC, BMP, ANEU, MG, GFR #### [address] [address] .NEUABSon 10-24-2024 Neutrophil, Absolute 6.0 10 3/mcL Normal 2.3-8.1 [facility] Comment on above: Performed By: #### A DIFF, CBC, BMP, ANEU, MG, GFR #### [address] [address] BMPon 10-24-2024 BUN/Creatinine Ratio 29.4 ratio High 10.0-22.0 [facility] Comment on above: Performed By: #### A DIFF, CBC, BMP, ANEU, MG, GFR #### [address] [address] Calcium [Mass/Vol] 9.3 mg/dL Normal 8.7-10.4 [facility] Comment on above: Performed By: #### A DIFF, CBC, BMP, ANEU, MG, GFR #### [address] [address] Chloride [Moles/Vol] 93 mmol/L Low 98-110 [facility] Comment on above: Performed By: #### A DIFF, CBC, BMP, ANEU, MG, GFR #### [address] [address] CO2 [Moles/Vol] 25 mmol/L Normal 22-32 [facility] Comment on above: Performed By: #### A DIFF, CBC, BMP, ANEU, MG, GFR #### [address] [address] Creatinine [Mass/Vol] 0.51 mg/dL Low 0.60-1.40 [facility] Comment on above: Result Comment: Test ing performed on [employer] analyzer using enzymatic creatinine methodology. Performed By: #### A DIFF, CBC, BMP, ANEU, MG, GFR #### [address] [address] Electrolyte Balance 11.0 mEq/L Normal 4.0-15.0 [facility] Comment on above: Performed By: #### A DIFF, CBC, BMP, ANEU, MG, GFR #### [address] [address] Glucose [Mass/Vol] 185 mg/dL High 82-115 [facility] Comment on above: Performed By: #### A DIFF, CBC, BMP, ANEU, MG, GFR #### [address] [address] Potassium [Moles/Vol] 3.5 mmol/L Normal 3.5-5.0 [facility] Comment on above: Performed By: #### A DIFF, CBC, BMP, ANEU, MG, GFR #### [address] [address] Sodium [Moles/Vol] 129 mmol/L Low 136-145 [facility] Comment on above: Performed By: #### A DIFF, CBC, BMP, ANEU, MG, GFR #### [place] [address] Urea nitrogen [Mass/Vol] 15.0 mg/dL Normal 8.0-22.0 [facility] Comment on above: Performed By: #### A DIFF, CBC, BMP, ANEU, MG, GFR #### [place] [address] CBCon 10-24-2024 Erythrocyte distribution width (RBC) [Ratio] 14.1 % Normal 11.5-15.5 [facility] Comment on above: Performed By: #### A DIFF, CBC, BMP, ANEU, MG, GFR #### [place] [address] Hematocrit (Bld) [Volume fraction] 36.1 % Low 40.0-52.0 [facility] Comment on above: Performed By: #### A DIFF, CBC, BMP, ANEU, MG, GFR #### [place] [address] Hgb 12.3 G/dL Low 13.0-17.5 [facility] Comment on above: Performed By: #### A DIFF, CBC, BMP, ANEU, MG, GFR #### [place] [address] MCH (RBC) [Entitic mass] 31.6 pg Normal 27.0-33.0 [facility] Comment on above: Performed By: #### A DIFF, CBC, BMP, ANEU, MG, GFR #### [place] [address] MCHC 34.2 G/dL Normal 32.0-36.0 [facility] Comment on above: Performed By: #### A DIFF, CBC, BMP, ANEU, MG, GFR #### [place] [address] MCV (RBC) [Entitic vol] 92.4 fL Normal 81.0-100.0 [facility] Comment on above: Performed By: #### A DIFF, CBC, BMP, ANEU, MG, GFR #### [address] [address] Platelet 234 10 3/mcL Normal 150-450 [facility] Comment on above: Performed By: #### A DIFF, CBC, BMP, ANEU, MG, GFR #### [facility] [address] [place] [address] Platelet mean volume (Bld) [Entitic vol] 7.4 fL Normal 6.4-10.5 [facility] Comment on above: Performed By: #### A DIFF, CBC, BMP, ANEU, MG, GFR #### [place] [id number] [place] [address] RBC 3.90 10 6/mcL Low 4.50-6.00 [facility] Comment on above: Performed By: #### A DIFF, CBC, BMP, ANEU, MG, GFR #### [place] [id number] [place] [address] WBC 7.4 10 3/mcL Normal 4.5-10.8 [facility] Comment on above: Performed By: #### A DIFF, CBC, BMP, ANEU, MG, GFR #### [place] [address] LABORATORYOrdered By: SYSTEM SYSTEM on 10-24-2024 Natriuretic [...] UA Squam Epithelial 0-2 /HPF Normal 0-20 AH Au to Urine SS UA Urobilinogen 1.0 E.U./dL Normal 0.2-1.0 AH Auto Urine SS WBC LM.HPF (Urine sed) [#/Area] 0-2 /HPF Normal 0-5 AH Auto Urine SS LABORATORYOrdered By: Adrian Jaramillo on 10-24-2024 Osmolality (U) [Osmolality] 458 mosm/kg Normal 390 - 1090 mOsm/kg Manual Chem SS LABORATORYOrdered By: Breonna zhou on 10-24-2024 Sodium (U) [Moles/Vol] 158 mmol/L Invalid Interpretation Code AH ADM SS MGon 10-24-2024 Magnesium [Mass/Vol] 1.4 mg/dL Low 1.6-2.4 [facility] Comment on above: Performed By: #### A DIFF, CBC, BMP, ANEU, MG, GFR #### [address] [address] Magnesium [Mass/Vol] 1.5 mg/dL Low 1.6-2.4 [facility] Comment on above: Order Comment: no bl ood sent Performed By: #### A DIFF, CBC, BMP, ANEU, MG, GFR #### [address] [address] NAURon 10-24-2024 Sodium [Moles/Vol] 158 mmol/L Normal [facility] Comment on above: Order Comment: unlab eled cup 10/24/2024 01:34:45 EDT Performed By: #### A DIFF, CBC, BMP, ANEU, MG, GFR #### [place] [address] OSMOUon 10-24-2024 U Osmolality 458 mOsm/kg Normal 390-1090 [facility] Comment on above: Order Comment: unlab eled cup 10/24/2024 01:34:18 EDT Performed By: #### A DIFF, CBC, BMP, ANEU, MG, GFR #### [place] [address] PBNPon 10-24-2024 Natriuretic peptide B (Bld) [Mass/Vol] 922 pg/mL Normal 0-1800 [facility] Comment on above: Performed By: #### A DIFF, CBC, BMP, ANEU, MG, GFR #### [place] [address] UAon 10-24-2024 Color (U) Yellow Normal [facility] Comment on above: Order Comment: unlab eled cup 10/24/2024 01:35:19 EDT Performed By: #### U A, UAMIC #### [place] [address] Glucose (U) [Mass/Vol] 250 mg/dL Abnormal Negative [facility] Comment on above: Order Comment: unlab eled cup 10/24/2024 01:35:19 EDT Performed By: #### U A, UAMIC #### [place] [address] Ketones Ql (U) Negative Normal Neg-Trace [facility] Comment on above: Order Comment: unlab eled cup 10/24/2024 01:35:19 EDT Performed By: #### U A, UAMIC #### [place] [address] UA Appear Clear Normal Clear [facility] Comment on above: Order Comment: unlab eled cup 10/24/2024 01:35:19 EDT Performed By: #### U A, UAMIC #### [place] [address] UA Blood Large Abnormal Neg-Trace [facility] Comment on above: Order Comment: unlab eled cup 10/24/2024 01:35:19 EDT Performed By: #### U A, UAMIC #### [place] [address] UA Leuk Est Trace Normal Negative [facility] Comment on above: Order Comment: unlab eled cup 10/24/2024 01:35:19 EDT Performed By: #### U A, UAMIC #### [place] [address] UA Nitrite Negative Normal Negative [facility] Comment on above: Order Comment: unlab eled cup 10/24/2024 01:35:19 EDT Performed By: #### U A, UAMIC #### [place] [address] UA pH >=8.5 Abnormal 5.0 - 8.0 [facility] Comment on above: Order Comment: unlab eled cup 10/24/2024 01:35:19 EDT Performed By: #### U A, UAMIC #### [place] [address] UA Protein Trace Normal Negative [facility] Comment on above: Order Comment: unlab eled cup 10/24/2024 01:35:19 EDT Performed By: #### U A, UAMIC #### [place] [address] UA Spec Grav 1.010 Normal 1.006-1.029 [facility] Comment on above: Order Comment: unlab eled cup 10/24/2024 01:35:19 EDT Performed By: #### U A, UAMIC #### [place] [address] UA Specimen Type Not Given Normal [facility] Comment on above: Order Comment: unlab eled cup 10/24/2024 01:35:19 EDT Result Comment: Spec imen volumes less than 5 ml may not yield chemical or microscopic results truly reflective of renal function or general metabolic status. Performed By: #### U A, UAMIC #### [place] [address] UA Urobilinogen 1.0 E.U./dL Normal 0.2-1.0 [facility] Comment on above: Order Comment: unlab eled cup 10/24/2024 01:35:19 EDT Performed By: #### U A, UAMIC #### [place] [address] Urobilinogen (U) [Mass/Vol] Negative Normal Neg-Trace [facility] Comment on above: Order Comment: unlab eled cup 10/24/2024 01:35:19 EDT Performed By: #### U A, UAMIC #### [place] [address] UAMICon 10-24-2024 UA Crenated RBCs 10-20 Abnormal [facility] Comment on above: Performed By: #### U A, UAMIC #### [place] [address] UA RBC 0-2 Normal 0-2 [facility] Comment on above: Performed By: #### U A, UAMIC #### [place] [address] UA Squam Epithelial 0-2 Normal 0-20 [facility] Comment on above: Performed By: #### U A, UAMIC #### [place] [address] UA WBC 0-2 Normal 0-5 [facility] Comment on above: Performed By: #### U A, UAMIC #### [place] [id number] XR CHEST 1 VIEWon 10-24-2024 XR CHEST 1 VIEW ORIGINAL EXAMINATION: Exam Title:ONE XRAY VIEW OF THE CHEST Completed Time: 10/24/2024 3:02 pm Procedure Description:CHEST ONE VIEW AP/PA COMPARISON: October 21, 2024 chest x-ray HISTORY: ORDERING SYSTEM PROVIDED HISTORY: Reason for Exam: crackles bilaterally recent cardiac arrest FINDINGS: Mild cardiomegaly. [id number] pulmonary vascular congestion. Basilar atelectasis. No evidence [...] 10/24/2024 3:04:51 PM Ordering Provider: NATASHA Spangler [facility] .Auto Diffon 10-23-2024 Basophil, Absolute 0.0 10 3/mcL Normal 0.0-0.3 [facility] Comment on above: Performed By: #### B G #### [address] [address] Basophils/100 WBC (Bld) 0.4 % Normal 0.0-2.5 [facility] Comment on above: Performed By: #### B G #### [address] [address] Eosinophil, Absolute 0.1 10 3/mcL Normal 0.0-0.7 [facility] Comment on above: Performed By: #### B G #### [address] [address] Eosinophils/100 WBC (Bld) 1.1 % Normal 0.0-6.0 [facility] Comment on above: Performed By: #### B G #### [address] [address] Lymphocyte, Absolute 0.9 10 3/mcL Normal 0.9-4.3 [facility] Comment on above: Performed By: #### B G #### [address] [address] Lymphocytes/100 WBC (Bld) 12.3 % Low 20.0-40.0 [facility] Comment on above: Performed By: #### B G #### [address] [address] Monocyte, Absolute 0.5 10 3/mcL Normal 0.1-1.4 [facility] Comment on above: Performed By: #### B G #### [address] [address] Monocytes/100 WBC (Bld) 7.5 % Normal 2.0-13.0 [facility] Comment on above: Performed By: #### B G #### [address] [address] Neutrophils/100 WBC (Bld) 78.7 % High 50.0-75.0 [facility] Comment on above: Performed By: #### B G #### [address] [address] .GFRon 10-23-2024 Estimated Glomerular Filtration Rate 96 ml/min/1.73sqm Normal [facility] Comment on above: Result Comment: Stages [...] results. Performed By: #### B G #### [address] [address] .NEUABSon 10-23-2024 Neutrophil, Absolute 5.7 10 3/mcL Normal 2.3-8.1 [facility] Comment on above: Performed By: #### B G #### [address] [address] BMPon 10-23-2024 BUN/Creatinine Ratio 28.1 ratio High 10.0-22.0 [facility] Comment on above: Performed By: #### B G #### [address] [address] Calcium [Mass/Vol] 9.2 mg/dL Normal 8.7-10.4 [facility] Comment on above: Performed By: #### B G #### [address] [address] Chloride [Moles/Vol] 97 mmol/L Low 98-110 [facility] Comment on above: Performed By: #### B G #### [address] [address] CO2 [Moles/Vol] 24 mmol/L Normal 22-32 [facility] Comment on above: Performed By: #### B G #### [address] [address] Creatinine [Mass/Vol] 0.57 mg/dL Low 0.60-1.40 [facility] Comment on above: Result Comment: Test ing performed on [employer] analyzer using enzymatic creatinine methodology. Performed By: #### B G #### [address] [address] Electrolyte Balance 11.0 mEq/L Normal 4.0-15.0 [facility] Comment on above: Performed By: #### B G #### [address] [address] Glucose [Mass/Vol] 127 mg/dL High 82-115 [facility] Comment on above: Performed By: #### B G #### [address] [address] Potassium [Moles/Vol] 3.6 mmol/L Normal 3.5-5.0 [facility] Comment on above: Performed By: #### B G #### [address] [address] Sodium [Moles/Vol] 132 mmol/L Low 136-145 [facility] Comment on above: Performed By: #### B G #### [address] [address] Urea nitrogen [Mass/Vol] 16.0 mg/dL Normal 8.0-22.0 [facility] Comment on above: Performed By: #### B G #### [address] [address] CBCon 10-23-2024 Erythrocyte distribution width (RBC) [Ratio] 14.3 % Normal 11.5-15.5 [facility] Comment on above: Performed By: #### B G #### [place] [address] Hematocrit (Bld) [Volume fraction] 33.8 % Low 40.0-52.0 [facility] Comment on above: Performed By: #### B G #### [place] [address] Hgb 11.8 G/dL Low 13.0-17.5 [facility] Comment on above: Performed By: #### B G #### [place] [address] MCH (RBC) [Entitic mass] 32.5 pg Normal 27.0-33.0 [facility] Comment on above: Performed By: #### B G #### [place] [address] MCHC 34.9 G/dL Normal 32.0-36.0 [facility] Comment on above: Performed By: #### B G #### [place] [address] MCV (RBC) [Entitic vol] 93.2 fL Normal 81.0-100.0 [facility] Comment on above: Performed By: #### B G #### [place] [address] Platelet 183 10 3/mcL Normal 150-450 [facility] Comment on above: Performed By: #### B G #### [place] [address] Platelet mean volume (Bld) [Entitic vol] 7.6 fL Normal 6.4-10.5 [facility] Comment on above: Performed By: #### B G #### [place] [address] RBC 3.62 10 6/mcL Low 4.50-6.00 [facility] Comment on above: Performed By: #### B G #### [facility] [address] [place] [address] WBC 7.2 10 3/mcL Normal 4.5-10.8 [facility] Comment on above: Performed By: #### B G #### [facility] [address] [place] [id number] HEAD OR BRAIN W/O CONTRAS Ton [...] Date: 10/23/2024 8:49:06 PM Ordering Provider: JUDIT Spangler [facility] MGon 10-23-2024 Magnesium [Mass/Vol] 1.8 mg/dL Normal 1.6-2.4 [facility] Comment on above: Performed By: #### B G #### [address] [address] .Auto Diffon 10-22-2024 Basophil, Absolute 0.0 10 3/mcL Normal 0.0-0.3 [facility] Comment on above: Performed By: #### A DIFF, CBC, BMP, ANEU, MG, GFR #### [address] [address] Basophils/100 WBC (Bld) 0.3 % Normal 0.0-2.5 [facility] Comment on above: Performed By: #### A DIFF, CBC, BMP, ANEU, MG, GFR #### [address] [address] Eosinophil, Absolute 0.0 10 3/mcL Normal 0.0-0.7 [facility] Comment on above: Performed By: #### A DIFF, CBC, BMP, ANEU, MG, GFR #### [address] [address] Eosinophils/100 WBC (Bld) 0.3 % Normal 0.0-6.0 [facility] Comment on above: Performed By: #### A DIFF, CBC, BMP, ANEU, MG, GFR #### [address] [address] Lymphocyte, Absolute 0.7 10 3/mcL Low 0.9-4.3 [facility] Comment on above: Performed By: #### A DIFF, CBC, BMP, ANEU, MG, GFR #### [address] [address] Lymphocytes/100 WBC (Bld) 7.3 % Low 20.0-40.0 [facility] Comment on above: Performed By: #### A DIFF, CBC, BMP, ANEU, MG, GFR #### [address] [address] Monocyte, Absolute 0.6 10 3/mcL Normal 0.1-1.4 [facility] Comment on above: Performed By: #### A DIFF, CBC, BMP, ANEU, MG, GFR #### [address] [address] Monocytes/100 WBC (Bld) 5.8 % Normal 2.0-13.0 [facility] Comment on above: Performed By: #### A DIFF, CBC, BMP, ANEU, MG, GFR #### [address] [address] Neutrophils/100 WBC (Bld) 86.3 % High 50.0-75.0 [facility] Comment on above: Performed By: #### A DIFF, CBC, BMP, ANEU, MG, GFR #### [address] [address] .GFRon 10-22-2024 Estimated Glomerular Filtration Rate 96 ml/min/1.73sqm Normal [facility] Comment on above: Result Comment: Stages [...] results. Performed By: #### B G #### [place] [address] .NEUABSon 10-22-2024 Neutrophil, Absolute 8.5 10 3/mcL High 2.3-8.1 [facility] Comment on above: Performed By: #### A DIFF, CBC, BMP, ANEU, MG, GFR #### [address] [address] B12on 10-22-2024 Cobalamin (Vitamin B12) [Mass/Vol] 255 pg/mL Normal 211-911 [facility] Comment on above: Performed By: #### U A, UAMIC #### [place] [id number] BMPon 10-22-2024 BUN/Creatinine Ratio 24.1 ratio High 10.0-22.0 [facility] Comment on above: Performed By: #### A DIFF, CBC, BMP, ANEU, MG, GFR #### [address] [address] Calcium [Mass/Vol] 8.9 mg/dL Normal 8.7-10.4 [facility] Comment on above: Performed By: #### A DIFF, CBC, BMP, ANEU, MG, GFR #### [address] [address] Chloride [Moles/Vol] 94 mmol/L Low 98-110 [facility] Comment on above: Performed By: #### A DIFF, CBC, BMP, ANEU, MG, GFR #### [address] [address] CO2 [Moles/Vol] 26 mmol/L Normal 22-32 [facility] Comment on above: Performed By: #### A DIFF, CBC, BMP, ANEU, MG, GFR #### [place] [id number] Creatinine [Mass/Vol] 0.58 mg/dL Low 0.60-1.40 [facility] Comment on above: Result Comment: Test ing performed on [employer] analyzer using enzymatic creatinine methodology. Performed By: #### A DIFF, CBC, BMP, ANEU, MG, GFR #### [address] [address] Electrolyte Balance 9.0 mEq/L Normal 4.0-15.0 [facility] Comment on above: Performed By: #### A DIFF, CBC, BMP, ANEU, MG, GFR #### [address] [address] Glucose [Mass/Vol] 135 mg/dL High 82-115 [facility] Comment on above: Performed By: #### A DIFF, CBC, BMP, ANEU, MG, GFR #### [address] [address] Potassium [Moles/Vol] 3.4 mmol/L Low 3.5-5.0 [facility] Comment on above: Performed By: #### A DIFF, CBC, BMP, ANEU, MG, GFR #### [place] [address] Sodium [Moles/Vol] 129 mmol/L Low 136-145 [facility] Comment on above: Performed By: #### A DIFF, CBC, BMP, ANEU, MG, GFR #### [place] [address] Urea nitrogen [Mass/Vol] 14.0 mg/dL Normal 8.0-22.0 [facility] Comment on above: Performed By: #### A DIFF, CBC, BMP, ANEU, MG, GFR #### [place] [address] CBCon 10-22-2024 Erythrocyte distribution width (RBC) [Ratio] 14.0 % Normal 11.5-15.5 [facility] Comment on above: Performed By: #### A DIFF, CBC, BMP, ANEU, MG, GFR #### [place] [address] Hematocrit (Bld) [Volume fraction] 35.0 % Low 40.0-52.0 [facility] Comment on above: Performed By: #### A DIFF, CBC, BMP, ANEU, MG, GFR #### [place] [address] Hgb 12.1 G/dL Low 13.0-17.5 [facility] Comment on above: Performed By: #### A DIFF, CBC, BMP, ANEU, MG, GFR #### [place] [address] MCH (RBC) [Entitic mass] 31.8 pg Normal 27.0-33.0 [facility] Comment on above: Performed By: #### A DIFF, CBC, BMP, ANEU, MG, GFR #### [place] [address] MCHC 34.5 G/dL Normal 32.0-36.0 [facility] Comment on above: Performed By: #### A DIFF, CBC, BMP, ANEU, MG, GFR #### [place] [address] MCV (RBC) [Entitic vol] 92.1 fL Normal 81.0-100.0 [facility] Comment on above: Performed By: #### A DIFF, CBC, BMP, ANEU, MG, GFR #### [place] [address] Platelet 202 10 3/mcL Normal 150-450 [facility] Comment on above: Performed By: #### A DIFF, CBC, BMP, ANEU, MG, GFR #### [place] [address] Platelet mean volume (Bld) [Entitic vol] 7.6 fL Normal 6.4-10.5 [facility] Comment on above: Performed By: #### A DIFF, CBC, BMP, ANEU, MG, GFR #### [place] [address] RBC 3.80 10 6/mcL Low 4.50-6.00 [facility] Comment on above: Performed By: #### A DIFF, CBC, BMP, ANEU, MG, GFR #### [place] [address] WBC 9.8 10 3/mcL Normal 4.5-10.8 [facility] Comment on above: Performed By: #### A DIFF, CBC, BMP, ANEU, MG, GFR #### [place] [address] LABORATORYOrdered By: SYSTEM SYSTEM on 10-22-2024 Cobalamin (Vitamin B12) [Mass/Vol] 255 pg/mL Normal 211 - 911 pg/mL ADM SS MGon 10-22-2024 Magnesium [Mass/Vol] 1.9 mg/dL Normal 1.6-2.4 [facility] Comment on above: Performed By: #### B G #### [place] [address] MRI BRAIN W/O CONTRASTon MRI BRAIN W/O [...] 10/22/2024 5:41:11 PM Ordering Provider: MO Spangler [facility] .Auto Diffon 10-21-2024 Basophil, Absolute 0.0 10 3/mcL Normal 0.0-0.3 [facility] Comment on above: Performed By: #### A DIFF, CBC, BMP, ANEU, MG, GFR #### [address] [address] Basophils/100 WBC (Bld) 0.1 % Normal 0.0-2.5 [facility] Comment on above: Performed By: #### A DIFF, CBC, BMP, ANEU, MG, GFR #### [address] [address] Eosinophil, Absolute 0.0 10 3/mcL Normal 0.0-0.7 [facility] Comment on above: Performed By: #### A DIFF, CBC, BMP, ANEU, MG, GFR #### [address] [address] Eosinophils/100 WBC (Bld) 0.1 % Normal 0.0-6.0 [facility] Comment on above: Performed By: #### A DIFF, CBC, BMP, ANEU, MG, GFR #### [address] [address] Lymphocyte, Absolute 0.6 10 3/mcL Low 0.9-4.3 [facility] Comment on above: Performed By: #### A DIFF, CBC, BMP, ANEU, MG, GFR #### [address] [address] Lymphocytes/100 WBC (Bld) 5.0 % Low 20.0-40.0 [facility] Comment on above: Performed By: #### A DIFF, CBC, BMP, ANEU, MG, GFR #### [address] [address] Monocyte, Absolute 0.8 10 3/mcL Normal 0.1-1.4 [facility] Comment on above: Performed By: #### A DIFF, CBC, BMP, ANEU, MG, GFR #### [address] [address] Monocytes/100 WBC (Bld) 6.0 % Normal 2.0-13.0 [facility] Comment on above: Performed By: #### A DIFF, CBC, BMP, ANEU, MG, GFR #### [address] [address] Neutrophils/100 WBC (Bld) 88.8 % High 50.0-75.0 [facility] Comment on above: Performed By: #### A DIFF, CBC, BMP, ANEU, MG, GFR #### [address] [address] Basophil, Absolute 0.0 10 3/mcL Normal 0.0-0.3 [facility] Comment on above: Performed By: #### A DIFF, CBC, BMP, ANEU, MG, GFR #### [address] [address] Basophils/100 WBC (Bld) 0.1 % Normal 0.0-2.5 [facility] Comment on above: Performed By: #### A DIFF, CBC, BMP, ANEU, MG, GFR #### [address] [address] Eosinophil, Absolute 0.0 10 3/mcL Normal 0.0-0.7 [facility] Comment on above: Performed By: #### A DIFF, CBC, BMP, ANEU, MG, GFR #### [address] [address] Eosinophils/100 WBC (Bld) 0.0 % Normal 0.0-6.0 [facility] Comment on above: Performed By: #### A DIFF, CBC, BMP, ANEU, MG, GFR #### [address] [address] Lymphocyte, Absolute 0.7 10 3/mcL Low 0.9-4.3 [facility] Comment on above: Performed By: #### A DIFF, CBC, BMP, ANEU, MG, GFR #### [address] [address] Lymphocytes/100 WBC (Bld) 5.7 % Low 20.0-40.0 [facility] Comment on above: Performed By: #### A DIFF, CBC, BMP, ANEU, MG, GFR #### [address] [address] Monocyte, Absolute 0.7 10 3/mcL Normal 0.1-1.4 [facility] Comment on above: Performed By: #### A DIFF, CBC, BMP, ANEU, MG, GFR #### [address] [address] Monocytes/100 WBC (Bld) 5.8 % Normal 2.0-13.0 [facility] Comment on above: Performed By: #### A DIFF, CBC, BMP, ANEU, MG, GFR #### [address] [address] Neutrophils/100 WBC (Bld) 88.4 % High 50.0-75.0 [facility] Comment on above: Performed By: #### A DIFF, CBC, BMP, ANEU, MG, GFR #### [address] [address] .GFRon 10-21-2024 Estimated Glomerular Filtration Rate 87 ml/min/1.73sqm Normal [facility] Comment on above: Result Comment: Stages [...] DIFF, CBC, BMP, ANEU, MG, GFR #### [place] [address] Estimated Glomerular Filtration Rate 93 ml/min/1.73sqm [facility] Comment on above: Result Comment: [...] 15-29 CKD 5 Kidney failure <15 Note: ([facility] 06/09/2024) the eGFR calculation was updated to the 2020 CKD-EPI creatinine equation without a race factor to calculate the eGFR results. Performed By: #### A DIFF, CBC, BMP, ANEU, MG, GFR #### [address] [address] .NEUABSon 10-21-2024 Neutrophil, Absolute 11.3 10 3/mcL High 2.3-8.1 [facility] Comment on above: Performed By: #### A DIFF, CBC, BMP, ANEU, MG, GFR #### [address] [address] Neutrophil, Absolute 10.5 10 3/mcL High 2.3-8.1 [facility] Comment on above: Performed By: #### A DIFF, CBC, BMP, ANEU, MG, GFR #### [address] [address] BGon 10-21-2024 Base excess Calc (Bld) [Moles/Vol] -5.8000 mmol/L Normal [facility] Comment on above: Performed By: #### A DIFF, CBC, BMP, ANEU, MG, GFR #### [place] [id number] CO2 [Moles/Vol] 19.2 mmol/L Low 22.0-30.0 [facility] Comment on above: Performed By: #### A DIFF, CBC, BMP, ANEU, MG, GFR #### [place] [id number] HCO3 (Bld) [Moles/Vol] 18.2 mmol/L Low 21.0-29.0 [facility] Comment on above: Performed By: #### A DIFF, CBC, BMP, ANEU, MG, GFR #### [place] [id number] Oxygen (Bld) [Partial pressure] 139.2 mm[Hg] High 74.0-108.0 [facility] Comment on above: Performed By: #### A DIFF, CBC, BMP, ANEU, MG, GFR #### [place] [address] Oxygen saturation in Blood 99.1 % High 92.0-96.0 [facility] Comment on above: Performed By: #### A DIFF, CBC, BMP, ANEU, MG, GFR #### [place] [id number] pCO2 31.9 mmHg Low 32.0-46.0 [facility] Comment on above: Performed By: #### A DIFF, CBC, BMP, ANEU, MG, GFR #### [place] [id number] pH (Bld) 7.375 [pH] Low 7.380-7.460 [facility] Comment on above: Performed By: #### A DIFF, CBC, BMP, ANEU, MG, GFR #### [place] [address] BMPon 10-21-2024 BUN/Creatinine Ratio 20.3 ratio Normal 10.0-22.0 [facility] Comment on above: Performed By: #### A DIFF, CBC, BMP, ANEU, MG, GFR #### [address] [address] Calcium [Mass/Vol] 9.5 mg/dL Normal 8.7-10.4 [facility] Comment on above: Performed By: #### A DIFF, CBC, BMP, ANEU, MG, GFR #### [address] [address] Chloride [Moles/Vol] 92 mmol/L Low 98-110 [facility] Comment on above: Performed By: #### A DIFF, CBC, BMP, ANEU, MG, GFR #### [address] [address] CO2 [Moles/Vol] 20 mmol/L Low 22-32 [facility] Comment on above: Performed By: #### A DIFF, CBC, BMP, ANEU, MG, GFR #### [address] [address] Creatinine [Mass/Vol] 0.64 mg/dL Normal 0.60-1.40 [facility] Comment on above: Result Comment: Test ing performed on [employer] analyzer using enzymatic creatinine methodology. Performed By: #### A DIFF, CBC, BMP, ANEU, MG, GFR #### [address] [address] Electrolyte Balance 15.0 mEq/L Normal 4.0-15.0 [facility] Comment on above: Performed By: #### A DIFF, CBC, BMP, ANEU, MG, GFR #### [address] [address] Glucose [Mass/Vol] 145 mg/dL High 82-115 [facility] Comment on above: Performed By: #### A DIFF, CBC, BMP, ANEU, MG, GFR #### [address] [address] Potassium [Moles/Vol] 3.6 mmol/L Normal 3.5-5.0 [facility] Comment on above: Performed By: #### A DIFF, CBC, BMP, ANEU, MG, GFR #### [place] [address] Sodium [Moles/Vol] 127 mmol/L Low 136-145 [facility] Comment on above: Performed By: #### A DIFF, CBC, BMP, ANEU, MG, GFR #### [place] [address] Urea nitrogen [Mass/Vol] 13.0 mg/dL Normal 8.0-22.0 [facility] Comment on above: Performed By: #### A DIFF, CBC, BMP, ANEU, MG, GFR #### [place] [address] CBCon 10-21-2024 Erythrocyte distribution width (RBC) [Ratio] 14.1 % Normal 11.5-15.5 [facility] Comment on above: Performed By: #### A DIFF, CBC, BMP, ANEU, MG, GFR #### [place] [address] Hematocrit (Bld) [Volume fraction] 39.5 % Low 40.0-52.0 [facility] Comment on above: Performed By: #### A DIFF, CBC, BMP, ANEU, MG, GFR #### [place] [address] Hgb 13.5 G/dL Normal 13.0-17.5 [facility] Comment on above: Performed By: #### A DIFF, CBC, BMP, ANEU, MG, GFR #### [place] [address] MCH (RBC) [Entitic mass] 31.7 pg Normal 27.0-33.0 [facility] Comment on above: Performed By: #### A DIFF, CBC, BMP, ANEU, MG, GFR #### [place] [address] MCHC 34.2 G/dL Normal 32.0-36.0 [facility] Comment on above: Performed By: #### A DIFF, CBC, BMP, ANEU, MG, GFR #### [address] [address] MCV (RBC) [Entitic vol] 92.6 fL Normal 81.0-100.0 [facility] Comment on above: Performed By: #### A DIFF, CBC, BMP, ANEU, MG, GFR #### [place] [id number] Platelet 262 10 3/mcL Normal 150-450 [facility] Comment on above: Performed By: #### A DIFF, CBC, BMP, ANEU, MG, GFR #### [place] [id number] Platelet mean volume (Bld) [Entitic vol] 7.6 fL Normal 6.4-10.5 [facility] Comment on above: Performed By: #### A DIFF, CBC, BMP, ANEU, MG, GFR #### [place] [address] RBC 4.27 10 6/mcL Low 4.50-6.00 [facility] Comment on above: Performed By: #### A DIFF, CBC, BMP, ANEU, MG, GFR #### [place] [id number] WBC 12.8 10 3/mcL High 4.5-10.8 [facility] Comment on above: Performed By: #### A DIFF, CBC, BMP, ANEU, MG, GFR #### [place] [id number] Erythrocyte distribution width (RBC) [Ratio] 13.9 % Normal 11.5-15.5 [facility] Comment on above: Performed By: #### A DIFF, CBC, BMP, ANEU, MG, GFR #### [place] [id number] Hematocrit (Bld) [Volume fraction] 39.8 % Low 40.0-52.0 [facility] Comment on above: Performed By: #### A DIFF, CBC, BMP, ANEU, MG, GFR #### [place] [id number] Hgb 13.6 G/dL Normal 13.0-17.5 [facility] Comment on above: Performed By: #### A DIFF, CBC, BMP, ANEU, MG, GFR #### [place] [address] MCH (RBC) [Entitic mass] 31.9 pg Normal 27.0-33.0 [facility] Comment on above: Performed By: #### A DIFF, CBC, BMP, ANEU, MG, GFR #### [place] [address] MCHC 34.3 G/dL Normal 32.0-36.0 [facility] Comment on above: Performed By: #### A DIFF, CBC, BMP, ANEU, MG, GFR #### [place] [address] MCV (RBC) [Entitic vol] 93.0 fL Normal 81.0-100.0 [facility] Comment on above: Performed By: #### A DIFF, CBC, BMP, ANEU, MG, GFR #### [place] [address] Platelet 252 10 3/mcL Normal 150-450 [facility] Comment on above: Performed By: #### A DIFF, CBC, BMP, ANEU, MG, GFR #### [place] [address] Platelet mean volume (Bld) [Entitic vol] 7.9 fL Normal 6.4-10.5 [facility] Comment on above: Performed By: #### A DIFF, CBC, BMP, ANEU, MG, GFR #### [place] [address] RBC 4.28 10 6/mcL Low 4.50-6.00 [facility] Comment on above: Performed By: #### A DIFF, CBC, BMP, ANEU, MG, GFR #### [place] [address] WBC 11.9 10 3/mcL High 4.5-10.8 [facility] Comment on above: Performed By: #### A DIFF, CBC, BMP, ANEU, MG, GFR #### [place] [address] CMPon 06-18-2025 Albumin Level 4.0 G/dL Normal 3.2-4.8 [facility] Comment on above: Performed By: #### A DIFF, CBC, BMP, ANEU, MG, GFR #### [place] [address] Albumin/Globulin [Mass ratio] 1.5 {ratio} Normal 0.9-1.6 [facility] Comment on above: Performed By: #### A DIFF, CBC, BMP, ANEU, MG, GFR #### [place] [id number] ALP [Catalytic activity/Vol] 73 U/L Normal 38-126 [facility] Comment on above: Performed By: #### A DIFF, CBC, BMP, ANEU, MG, GFR #### [place] [address] ALT [Catalytic activity/Vol] 22 U/L Normal 12-55 [facility] Comment on above: Performed By: #### A DIFF, CBC, BMP, ANEU, MG, GFR #### [place] [id number] AST [Catalytic activity/Vol] 32 U/L Normal 8-34 [facility] Comment on above: Performed By: #### A DIFF, CBC, BMP, ANEU, MG, GFR #### [place] [id number] Bili Total 0.70 mg/dL Normal 0.20-1.20 [facility] Comment on above: Result Comment: Use of this assay is not recommended for patients undergoing treatment with eltrombopag due to the potential for falsely elevated results. Performed By: #### A DIFF, CBC, BMP, ANEU, MG, GFR #### [place] [id number] BUN/Creatinine Ratio 22.8 ratio High 10.0-22.0 [facility] Comment on above: Performed By: #### A DIFF, CBC, BMP, ANEU, MG, GFR #### [place] [id number] Calcium [Mass/Vol] 9.3 mg/dL Normal 8.7-10.4 [facility] Comment on above: Performed By: #### A DIFF, CBC, BMP, ANEU, MG, GFR #### [address] [address] Chloride [Moles/Vol] 92 mmol/L Low 98-110 [facility] Comment on above: Performed By: #### A DIFF, CBC, BMP, ANEU, MG, GFR #### [address] [address] CO2 [Moles/Vol] 21 mmol/L Low 22-32 [facility] Comment on above: Performed By: #### A DIFF, CBC, BMP, ANEU, MG, GFR #### [place] [id number] Creatinine [Mass/Vol] 0.79 mg/dL Normal 0.60-1.40 [facility] Comment on above: Result Comment: Test ing performed on [employer] analyzer using enzymatic creatinine methodology. Performed By: #### A DIFF, CBC, BMP, ANEU, MG, GFR #### [place] [id number] Electrolyte Balance 13.0 mEq/L Normal 4.0-15.0 [facility] MAIN Comment on above: Performed By: #### A DIFF, CBC, BMP, ANEU, MG, GFR #### [place] [address] Globulin 2.7 G/dL Normal 2.5-4.2 [facility] MAIN Comment on above: Performed By: #### A DIFF, CBC, BMP, ANEU, MG, GFR #### [address] [address] Glucose [Mass/Vol] 182 mg/dL High 82-115 [facility] MAIN Comment on above: Performed By: #### A DIFF, CBC, BMP, ANEU, MG, GFR #### [place] [id number] Potassium [Moles/Vol] 3.9 mmol/L Normal 3.5-5.0 [facility] MAIN Comment on above: Performed By: #### A DIFF, CBC, BMP, ANEU, MG, GFR #### [place] [id number] Sodium [Moles/Vol] 126 mmol/L Low 136-145 [facility] MAIN Comment on above: Performed By: #### A DIFF, CBC, BMP, ANEU, MG, GFR #### [address] [address] Total Protein 6.7 G/dL Normal 5.7-8.2 [facility] MAIN Comment on above: Performed By: #### A DIFF, CBC, BMP, ANEU, MG, GFR #### [place] [id number] [place] [address] Urea nitrogen [Mass/Vol] 18.0 mg/dL Normal 8.0-22.0 [facility] MAIN Comment on above: Performed By: #### A DIFF, CBC, BMP, ANEU, MG, GFR #### [address] [address] LABORATORYOrdered By: SYSTEM SYSTEM on 10-21-2024 Troponin I.cardiac DL <= 0.01 ng/mL [Mass/Vol] 18 ng/L Normal 0 - 54 ng/L ADM SS Comment on above: Interpretive Data: High Sensitive Troponin I Reference Ranges: Female: 0-34 ng/L Male: 0-54 ng/L Testing performed on [employer] IM analyzer using direct chemiluminescent technology. LABORATORYOrdered By: Fran Reese on 10-21-2024 CO2 [Moles/Vol] 19.2 mmol/L Low 22.0 - 30.0 mmol/L Main Rapid Comm SS HCO3 (Bld) [Moles/Vol] 18.2 mmol/L Low 21.0 - 29.0 mmol/L Main Rapid Comm SS Oxygen (Bld) [Partial pressure] 139.2 mm[Hg] High 74.0 - 108.0 mm Hg Main Rapid Comm SS pCO2 31.9 mm[Hg] Low 32.0 - 46.0 mm Hg Main Rapid Comm SS pH (Bld) 7.375 [pH] Low 7.380 - 7.460 Main Rapid Comm SS Sodium [Moles/Vol] -5.8000 mmol/L Invalid Interpretation Code Main Rapid Comm SS TROPHSon 10-21-2024 High Sensitivity Troponin I 18 ng/L Normal 0-54 [facility] MAIN Comment on above: Order Comment: Pls a dd on to the samples drawn this afternoon if possible. Result Comment: High Sensitive Troponin I Reference Ranges: Female: 0-34 ng/L Male: 0-54 ng/L Testing performed on [employer] analyzer using direct chemiluminescent technology. Performed By: #### A DIFF, CBC, BMP, ANEU, MG, GFR #### [address] [address] XR ENTERIC TUBE PLACEMENTon 10-21-2024 XR ENTERIC [...] 10/21/2024 3:45:47 PM Ordering Provider: LUIS Spangler [facility] MAIN .Auto Diffon 10-20-2024 Basophil, Absolute 0.0 10 3/mcL Normal 0.0-0.3 [facility] MAIN Comment on above: Performed By: #### A DIFF, CBC, BMP, ANEU, MG, GFR #### [address] [address] Basophils/100 WBC (Bld) 0.1 % Normal 0.0-2.5 [facility] MAIN Comment on above: Performed By: #### A DIFF, CBC, BMP, ANEU, MG, GFR #### [address] [address] Eosinophils/100 WBC (Bld) 0.1 % Normal 0.0-6.0 [facility] MAIN Comment on above: Performed By: #### A DIFF, CBC, BMP, ANEU, MG, GFR #### [address] [address] Lymphocyte, Absolute 0.6 10 3/mcL Low 0.9-4.3 [facility] MAIN Comment on above: Performed By: #### A DIFF, CBC, BMP, ANEU, MG, GFR #### [address] [address] Lymphocytes/100 WBC (Bld) 5.6 % Low 20.0-40.0 [facility] MAIN Comment on above: Performed By: #### A DIFF, CBC, BMP, ANEU, MG, GFR #### [address] [address] Monocyte, Absolute 0.5 10 3/mcL Normal 0.1-1.4 [facility] MAIN Comment on above: Performed By: #### A DIFF, CBC, BMP, ANEU, MG, GFR #### [address] [address] Monocytes/100 WBC (Bld) 5.2 % Normal 2.0-13.0 [facility] MAIN Comment on above: Performed By: #### A DIFF, CBC, BMP, ANEU, MG, GFR #### [address] [address] Neutrophils/100 WBC (Bld) 89.0 % High 50.0-75.0 [facility] MAIN Comment on above: Performed By: #### A DIFF, CBC, BMP, ANEU, MG, GFR #### [address] [address] Basophil, Absolute 0.0 10 3/mcL Normal 0.0-0.3 [facility] Comment on above: Performed By: #### F ERR, CBC, FE, ANEU, ADIFF #### [address] [address] Lymphocyte, Absolute 0.8 10 3/mcL Low 0.9-4.3 [facility] Comment on above: Performed By: #### F ERR, CBC, FE, ANEU, ADIFF #### [address] [address] Monocyte, Absolute 0.5 10 3/mcL Normal 0.1-1.4 [facility] Comment on above: Performed By: #### F ERR, CBC, FE, ANEU, ADIFF #### [address] [address] .Auto DiffOrdered By: SYSTEM SYSTEM on 10-20-2024 Basophils/100 WBC (Bld) 0.4 % Normal 0.0-2.5 A O Workflow SS Comment on above: Performed By: #### F ERR, CBC, FE, ANEU, ADIFF #### [address] [address] Eosinophil, Absolute 0.0 103/mcL Normal 0.0-0.7 AO Workflow SS Comment on above: Performed By: #### F ERR, CBC, FE, ANEU, ADIFF #### [address] [address] Performed By: #### A DIFF, CBC, BMP, ANEU, MG, GFR #### [address] [address] Eosinophils/100 WBC (Bld) 0.4 % Normal 0.0-6.0 AO Workflow SS Comment on above: Performed By: #### F ERR, CBC, FE, ANEU, ADIFF #### [address] [address] Lymphocytes/100 WBC (Bld) 13.4 % Low 20.0-40.0 AO Workflow SS Comment on above: Performed By: #### F ERR, CBC, FE, ANEU, ADIFF #### [address] [address] Monocytes/100 WBC (Bld) 9.1 % Normal 2.0-13.0 A O Workflow SS Comment on above: Performed By: #### F ERR, CBC, FE, ANEU, ADIFF #### [address] [address] Neutrophils/100 WBC (Bld) 76.7 % High 50.0-75.0 AO Workflow SS Comment on above: Performed By: #### F ERR, CBC, FE, ANEU, ADIFF #### [address] [address] .GFRon 10-20-2024 Estimated Glomerular Filtration Rate 99 ml/min/1.73sqm Normal [facility] MAIN Comment on above: Result Comment: Stages [...] DIFF, CBC, BMP, ANEU, MG, GFR #### [facility] [address] [place] [address] Estimated Glomerular Filtration Rate 97 ml/min/1.73sqm Normal [facility] Comment on above: Result Comment: Stages [...] F ERR, CBC, FE, ANEU, ADIFF #### [address] [address] .GFROrdered By: SYSTEM SYSTKirill M on 10-20-2024 Estimated Glomerular Filtration Rate 96 [...] F ERR, CBC, FE, ANEU, ADIFF #### [address] [address] .MDWon 10-20-2024 Monocyte Distribution Width 17.30 Normal 0.00-20.00 [facility] Comment on above: Result Comment: For ED adult patients suspected of sepsis, MDW<=20.0 does not rule out sepsis or risk of sepsis Performed By: #### F ERR, CBC, FE, ANEU, ADIFF #### [address] [address] .NEUABSon 10-20-2024 Neutrophil, Absolute 9.0 10 3/mcL High 2.3-8.1 [facility] Comment on above: Performed By: #### A DIFF, CBC, BMP, ANEU, MG, GFR #### [facility] [address] [place] [address] Neutrophil, Absolute 4.5 10 3/mcL Normal 2.3-8.1 [facility] Comment on above: Performed By: #### F ERR, CBC, FE, ANEU, ADIFF #### [facility] [address] [place], [place] [address] [facility] BUN/Creatinine Ratio 19.2 ratio Normal 10.0-22.0 [facility] MAIN Comment on above: Performed By: #### A DIFF, CBC, BMP, ANEU, MG, GFR #### [address] [address] Calcium [Mass/Vol] 9.3 mg/dL Normal 8.7-10.4 [facility] MAIN Comment on above: Performed By: #### A DIFF, CBC, BMP, ANEU, MG, GFR #### [address] [address] Chloride [Moles/Vol] 92 mmol/L Low 98-110 [facility] MAIN Comment on above: Performed By: #### A DIFF, CBC, BMP, ANEU, MG, GFR #### [address] [address] CO2 [Moles/Vol] 22 mmol/L Normal 22-32 [facility] MAIN Comment on above: Performed By: #### A DIFF, CBC, BMP, ANEU, MG, GFR #### [address] [address] Creatinine [Mass/Vol] 0.52 mg/dL Low 0.60-1.40 [facility] MAIN Comment on above: Result Comment: Test ing performed on [employer] analyzer using enzymatic creatinine methodology. Performed By: #### A DIFF, CBC, BMP, ANEU, MG, GFR #### [address] [address] Electrolyte Balance 13.0 mEq/L Normal 4.0-15.0 [facility] MAIN Comment on above: Performed By: #### A DIFF, CBC, BMP, ANEU, MG, GFR #### [address] [address] Glucose [Mass/Vol] 151 mg/dL High 82-115 [facility] MAIN Comment on above: Performed By: #### A DIFF, CBC, BMP, ANEU, MG, GFR #### [address] [address] Potassium [Moles/Vol] 3.6 mmol/L Normal 3.5-5.0 [facility] MAIN Comment on above: Performed By: #### A DIFF, CBC, BMP, ANEU, MG, GFR #### [address] [address] Sodium [Moles/Vol] 127 mmol/L Low 136-145 [facility] MAIN Comment on above: Performed By: #### A DIFF, CBC, BMP, ANEU, MG, GFR #### [address] [address] Urea nitrogen [Mass/Vol] 10.0 mg/dL Normal 8.0-22.0 [facility] MAIN Comment on above: Performed By: #### A DIFF, CBC, BMP, ANEU, MG, GFR #### [address] [address] BUN/Creatinine Ratio 20 ratio Normal 7-27 [facility] Comment on above: Performed By: #### F ERR, CBC, FE, ANEU, ADIFF #### [address] [address] Calcium [Mass/Vol] 8.8 mg/dL Normal 8.4-10.2 [facility] Comment on above: Performed By: #### F ERR, CBC, FE, ANEU, ADIFF #### [address] [address] Chloride [Moles/Vol] 90 mmol/L Low 98-107 [facility] Comment on above: Performed By: #### F ERR, CBC, FE, ANEU, ADIFF #### [address] [address] CO2 [Moles/Vol] 28 mmol/L Normal 23-31 [facility] Comment on above: Performed By: #### F ERR, CBC, FE, ANEU, ADIFF #### [address] [address] Creatinine [Mass/Vol] 0.56 mg/dL Low 0.67-1.17 [facility] Comment on above: Performed By: #### F ERR, CBC, FE, ANEU, ADIFF #### [address] [address] Electrolyte Balance 5.0 mEq/L Normal 4.0-15.0 [facility] Comment on above: Performed By: #### F ERR, CBC, FE, ANEU, ADIFF #### [address] [address] Glucose [Mass/Vol] 140 mg/dL High 83-110 [facility] Comment on above: Performed By: #### F ERR, CBC, FE, ANEU, ADIFF #### [address] [address] Potassium [Moles/Vol] 3.8 mmol/L Normal 3.5-5.1 [facility] Comment on above: Performed By: #### F ERR, CBC, FE, ANEU, ADIFF #### [address] [address] Sodium [Moles/Vol] 123 mmol/L Low 136-145 [facility] Comment on above: Performed By: #### F ERR, CBC, FE, ANEU, ADIFF #### [address] [address] Urea nitrogen [Mass/Vol] 11 mg/dL Normal 7-18 [facility] Comment on above: Performed By: #### F ERR, CBC, FE, ANEU, ADIFF #### [address] [address] CBCon 10-20-2024 Erythrocyte distribution width (RBC) [Ratio] 13.9 % Normal 11.5-15.5 [facility] Comment on above: Performed By: #### A DIFF, CBC, BMP, ANEU, MG, GFR #### [address] [address] Hematocrit (Bld) [Volume fraction] 38.7 % Low 40.0-52.0 [facility] Comment on above: Performed By: #### A DIFF, CBC, BMP, ANEU, MG, GFR #### [address] [address] Hgb 13.1 G/dL Normal 13.0-17.5 [facility] MAIN Comment on above: Performed By: #### A DIFF, CBC, BMP, ANEU, MG, GFR #### [place] [address] MCH (RBC) [Entitic mass] 31.5 pg Normal 27.0-33.0 [facility] MAIN Comment on above: Performed By: #### A DIFF, CBC, BMP, ANEU, MG, GFR #### [place] [address] MCHC 33.8 G/dL Normal 32.0-36.0 [facility] MAIN Comment on above: Performed By: #### A DIFF, CBC, BMP, ANEU, MG, GFR #### [place] [address] MCV (RBC) [Entitic vol] 93.0 fL Normal 81.0-100.0 [facility] MAIN Comment on above: Performed By: #### A DIFF, CBC, BMP, ANEU, MG, GFR #### [place] [address] Platelet 235 10 3/mcL Normal 150-450 [facility] MAIN Comment on above: Performed By: #### A DIFF, CBC, BMP, ANEU, MG, GFR #### [place] [address] Platelet mean volume (Bld) [Entitic vol] 7.5 fL Normal 6.4-10.5 [facility] MAIN Comment on above: Performed By: #### A DIFF, CBC, BMP, ANEU, MG, GFR #### [place] [address] RBC 4.16 10 6/mcL Low 4.50-6.00 [facility] MAIN Comment on above: Performed By: #### A DIFF, CBC, BMP, ANEU, MG, GFR #### [place] [address] WBC 10.1 10 3/mcL Normal 4.5-10.8 [facility] MA[facility] Comment on above: Performed By: #### A DIFF, CBC, BMP, ANEU, MG, GFR #### [address], [place] [address] Hgb 12.7 G/dL Low 13.0-17.5 [facility] Comment on above: Performed By: #### F ERR, CBC, FE, ANEU, ADIFF #### [address] [address] Platelet 202 10 3/mcL Normal 150-450 [facility] Comment on above: Performed By: #### F ERR, CBC, FE, ANEU, ADIFF #### [address] [address] RBC 3.92 10 6/mcL Low 4.50-6.00 [facility] Comment on above: Performed By: #### F ERR, CBC, FE, ANEU, ADIFF #### [address] [address] WBC 5.9 10 3/mcL Normal 4.5-10.8 [facility] Comment on above: Performed By: #### F ERR, CBC, FE, ANEU, ADIFF #### [address] [address] CBCOrdered By: SYSTEM SYSTEM on 10-20-2024 Erythrocyte distribution width (RBC) [Ratio] 14.1 % Normal 11.5-15.5 AO Workflow SS Comment on above: Performed By: #### F ERR, CBC, FE, ANEU, ADIFF #### [address] [address] Hematocrit (Bld) [Volume fraction] 36.4 % Low 40.0-52.0 AO Workflow SS Comment on above: Performed By: #### F ERR, CBC, FE, ANEU, ADIFF #### [address] [address] MCH (RBC) [Entitic mass] 32.3 pg Normal 27.0-33.0 AO Workflow SS Comment on above: Performed By: #### F ERR, CBC, FE, ANEU, ADIFF #### [address] [address] MCHC 34.8 G/dL Normal 32.0-36.0 AO Workflow SS Comment on above: Performed By: #### F ERR, CBC, FE, ANEU, ADIFF #### [place] [address] MCV (RBC) [Entitic vol] 92.8 fL Normal 81.0-100.0 A O Workflow SS Comment on above: Performed By: #### F ERR, CBC, FE, ANEU, ADIFF #### [place] [address] Platelet mean volume (Bld) [Entitic vol] 7.3 fL Normal 6.4-10.5 AO Workflow SS Comment on above: Performed By: #### F ERR, CBC, FE, ANEU, ADIFF #### [place] [id number] CMPon 10-20-2024 Albumin Level 4.0 G/dL Normal 3.4-4.8 [facility] Comment on above: Performed By: #### F ERR, CBC, FE, ANEU, ADIFF #### [place] [address] ALT [Catalytic activity/Vol] 20 U/L Normal 16-63 [facility] Comment on above: Performed By: #### F ERR, CBC, FE, ANEU, ADIFF #### [place] [id number] AST [Catalytic activity/Vol] 25 U/L Normal 10-40 [facility] Comment on above: Performed By: #### F ERR, CBC, FE, ANEU, ADIFF #### [place] [address] Bili Total 0.6 mg/dL Normal 0.2-1.0 [facility] Comment on above: Result Comment: Use of this assay is not recommended for patients undergoing treatment with eltrombopag due to the potential for falsely elevated results. Performed By: #### F ERR, CBC, FE, ANEU, ADIFF #### [place] [address] BUN/Creatinine Ratio 19 ratio Normal 7-27 [facility] Comment on above: Performed By: #### F ERR, CBC, FE, ANEU, ADIFF #### [address] [address] Total Protein 7.1 G/dL Normal 6.4-8.2 [facility] Comment on above: Performed By: #### F ERR, CBC, FE, ANEU, ADIFF #### [address] [address] Urea nitrogen [Mass/Vol] 11 mg/dL Normal 7-18 [facility] Comment on above: Performed By: #### F ERR, CBC, FE, ANEU, ADIFF #### [address] [address] CMPOrdered By: SYSTEM SYSTEM on 10-20-2024 Albumin/Globulin [Mass ratio] 1.3 {ratio} Normal 1.1-2.5 AO ADM SS Comment on above: Performed By: #### F ERR, CBC, FE, ANEU, ADIFF #### [address] [address] ALP [Catalytic activity/Vol] 68 U/L Normal 40-135 AO ADM SS Comment on above: Performed By: #### F ERR, CBC, FE, ANEU, ADIFF #### [address] [address] Calcium [Mass/Vol] 9.2 mg/dL Normal 8.4-10.2 AO ADM SS Comment on above: Performed By: #### F ERR, CBC, FE, ANEU, ADIFF #### [address] [address] Chloride [Moles/Vol] 88 mmol/L Low 98-107 AO A DM SS Comment on above: Performed By: #### F ERR, CBC, FE, ANEU, ADIFF #### [address] [address] CO2 [Moles/Vol] 30 mmol/L Normal 23-31 AO ADM SS Comment on above: Performed By: #### F ERR, CBC, FE, ANEU, ADIFF #### [address] [address] Creatinine [Mass/Vol] 0.57 mg/dL Low 0.67-1.17 AO ADM SS Comment on above: Performed By: #### F ERR, CBC, FE, ANEU, ADIFF #### [address] [address] Electrolyte Balance 4.0 mEq/L Normal 4.0-15.0 AO AD M SS Comment on above: Performed By: #### F ERR, CBC, FE, ANEU, ADIFF #### [address] [address] Globulin 3.1 G/dL Normal 2.7-4.4 AO ADM SS Comment on above: Performed By: #### F ERR, CBC, FE, ANEU, ADIFF #### [address] [address] Glucose [Mass/Vol] 166 mg/dL High 83-110 AO ADM SS Comment on above: Performed By: #### F ERR, CBC, FE, ANEU, ADIFF #### [address] [address] Potassium [Moles/Vol] 4.0 mmol/L Normal 3.5-5.1 AO ADM SS Comment on above: Performed By: #### F ERR, CBC, FE, ANEU, ADIFF #### [address] [address] Sodium [Moles/Vol] 122 mmol/L Low 136-145 AO ADM SS Comment on above: Performed By: #### F ERR, CBC, FE, ANEU, ADIFF #### [address] [address] [address] HEAD OR BRAIN W/O CONTRAS Ton [...] by: Stephanie Rasheed Preliminary Report By: Stephanie Rahseed Electronically signed By Stephanie Rasheed Dictated Date: 10/20/2024 11:51:25 AM Prelim Date: 10/20/2024 11:52:19 AM Sign Date: 10/20/2024 11:52:19 AM Ordering Provider: JAMIE Spangler [facility] LABORATORYOrdered By: SYSTEM SYSTEM on 10-20-2024 [...] ng/L Male: 0-76 ng/L Testing performed on [employer] using a homogeneous sandwich chemiluminescent immunoassay based on [employer] technology. Urea nitrogen/Creatinine [Mass ratio] 19 ratio [...] Lactic Acid Lvl 0.8 mmol/L Normal 0.5-2.2 [facility] MAIN Comment on above: Performed By: #### A DIFF, CBC, BMP, ANEU, MG, GFR #### [address] [address] Laboratory - Chemistry and C hemistry - challengeOrdered By: SYSTEM SYSTEM on 10-20-2024 Urea nitrogen [Mass/Vol] 11 mg/dL Normal 7 - 18 mg/dL AO ADM SS MGon 10-20-2024 Magnesium [Mass/Vol] 2.2 mg/dL Normal 1.6-2.4 [facility] MAIN Comment on above: Performed By: #### A DIFF, CBC, BMP, ANEU, MG, GFR #### [address] [address] MGOrdered By: SYSTEM SYSTEM on 10-20-2024 Magnesium [Mass/Vol] 1.6 mg/dL Low 1.8-2.4 AO A DM SS Comment on above: Performed By: #### F ERR, CBC, FE, ANEU, ADIFF #### [address] [address] NAURon 10-20-2024 Sodium [Moles/Vol] 59 mmol/L Normal [facility] Comment on above: Performed By: #### F ERR, CBC, FE, ANEU, ADIFF #### [place] [id number] [place], [place] [address] No Panel Informationon 10-20 Culture Urine 10,000 - 50,000 cfu/ml Mixed growth consistent with normal urogenital dorinda. [facility] 10-20-2024 High Sensitivity Troponin I 20 ng/L Normal 0-76 [facility] Comment on above: Result Comment: High Sensitive Troponin I Reference Ranges: Female: 0-51 ng/L Male: 0-76 ng/L Testing performed on [employer] using a homogeneous sandwich chemiluminescent immunoassay based on [employer] technology. Performed By: #### F ERR, CBC, FE, ANEU, ADIFF #### [address] [address] TSHon 10-20-2024 TSH 2.130 mIU/mL Normal 0.550-4.780 [facility] Comment on above: Performed By: #### A DIFF, CBC, BMP, ANEU, MG, GFR #### [facility] [address] [place] [address] TSHROrdered By: SYSTEM SYSTE M on 10-20-2024 TSH Qn 2.53 m[IU]/L Normal 0.36-3.74 AO ADM SS Comment on above: Performed By: #### F ERR, CBC, FE, ANEU, ADIFF #### [place] [address] UDRUGon 10-20-2024 Amphetamine (u) Negative Normal Negative [facility] Comment on above: Performed By: #### F ERR, CBC, FE, ANEU, ADIFF #### [place] [address] Barbiturate (u) Negative Normal Negative [facility] Comment on above: Performed By: #### F ERR, CBC, FE, ANEU, ADIFF #### [place] [address] Benzodiazepine (u) Negative Normal Negative [facility] Comment on above: Performed By: #### F ERR, CBC, FE, ANEU, ADIFF #### [address] [address] Cannabinoid (u) Negative Normal Negative [facility] Comment on above: Performed By: #### F ERR, CBC, FE, ANEU, ADIFF #### [place] [address] Cocaine Ql (U) Negative Normal Negative [facility] Comment on above: Performed By: #### F ERR, CBC, FE, ANEU, ADIFF #### [place] [id number] [place], [place] [address] Methadone Ql (U) Negative Normal Negative [facility] Comment on above: Performed By: #### F ERR, CBC, FE, ANEU, ADIFF #### [place] [address] [place], [place] [address] Opiate (u) Positive Abnormal Negative [facility] Comment on above: Performed By: #### F ERR, CBC, FE, ANEU, ADIFF #### [address] [address] PCP (u) Negative Normal Negative [facility] Comment on above: Performed By: #### F ERR, CBC, FE, ANEU, ADIFF #### [address] [address] Urine Drugs screened: See Below Normal [facility] Comment on above: Result Comment: This [...] F ERR, CBC, FE, ANEU, ADIFF #### [address] [address] XR CHEST 2 VIEWSon 5 XR CHEST 2 VIEWS ORIGINAL EXAMINATION: TWO [...] 10/20/2024 12:10:04 PM Ordering Provider: JAMIE TAYLOR [facility] LABORATORYOrdered By: Abigail Graham on 10-08-2024 Albumin DL <= 20 mg/L (U) [Mass/Vol] 8.1 mg/L Invalid Interpretation Code AO ADM SS Albumin/Creatinine DL <= 20 mg/L (U) [Mass ratio] 17 mg/G Normal 0 - 30 mg/G AO Chemistry S Creatinine (U) [Mass/Vol] 47.6 mg/dL Normal 40.0 - 278.0 mg/dL AO ADM SS MALBRon 10-08-2024 U Creatinine 47.6 mg/dL Normal 40.0-278.0 [facility] Comment on above: Performed By: #### F ERR, CBC, FE, ANEU, ADIFF #### [address] [address] U Microalb 8.1 mg/L Normal [facility] Comment on above: Performed By: #### F ERR, CBC, FE, ANEU, ADIFF #### [address] [address] U Ratio Alb/Cre 17 mg/G Normal 0-30 [facility] Comment on above: Performed By: #### F ERR, CBC, FE, ANEU, ADIFF #### [address] [address] .Auto Diffon 10-05-2024 Basophil, Absolute 0.0 10 3/mcL Normal 0.0-0.3 [facility] Comment on above: Performed By: #### F ERR, CBC, FE, ANEU, ADIFF #### [address] [address] Basophils/100 WBC (Bld) 0.9 % Normal 0.0-2.5 [facility] Comment on above: Performed By: #### F ERR, CBC, FE, ANEU, ADIFF #### [address] [address] Eosinophil, Absolute 0.2 10 3/mcL Normal 0.0-0.7 [facility] Comment on above: Performed By: #### F ERR, CBC, FE, ANEU, ADIFF #### [address] [address] Eosinophils/100 WBC (Bld) 4.9 % Normal 0.0-6.0 [facility] Comment on above: Performed By: #### F ERR, CBC, FE, ANEU, ADIFF #### [address] [address] Lymphocyte, Absolute 1.4 10 3/mcL Normal 0.9-4.3 [facility] Comment on above: Performed By: #### F ERR, CBC, FE, ANEU, ADIFF #### [address] [address] Lymphocytes/100 WBC (Bld) 33.5 % Normal 20.0-40.0 [facility] Comment on above: Performed By: #### F ERR, CBC, FE, ANEU, ADIFF #### [address] [address] Monocyte, Absolute 0.4 10 3/mcL Normal 0.1-1.4 [facility] Comment on above: Performed By: #### F ERR, CBC, FE, ANEU, ADIFF #### [address] [address] Monocytes/100 WBC (Bld) 9.8 % Normal 2.0-13.0 [facility] Comment on above: Performed By: #### F ERR, CBC, FE, ANEU, ADIFF #### [address] [address] Neutrophils/100 WBC (Bld) 50.9 % Normal 50.0-75.0 [facility] Comment on above: Performed By: #### F ERR, CBC, FE, ANEU, ADIFF #### [address] [address] .NEUABSon 10-05-2024 Neutrophil, Absolute 2.1 10 3/mcL Low 2.3-8.1 [facility] Comment on above: Performed By: #### F ERR, CBC, FE, ANEU, ADIFF #### [address] [address] CBCon 10-05-2024 Erythrocyte distribution width (RBC) [Ratio] 14.2 % Normal 11.5-15.5 [facility] Comment on above: Performed By: #### F ERR, CBC, FE, ANEU, ADIFF #### [address] [address] Hematocrit (Bld) [Volume fraction] 36.4 % Low 40.0-52.0 [facility] Comment on above: Performed By: #### F ERR, CBC, FE, ANEU, ADIFF #### [address] [address] Hgb 12.5 G/dL Low 13.0-17.5 [facility] Comment on above: Performed By: #### F ERR, CBC, FE, ANEU, ADIFF #### [address] [address] MCH (RBC) [Entitic mass] 32.0 pg Normal 27.0-33.0 [facility] Comment on above: Performed By: #### F ERR, CBC, FE, ANEU, ADIFF #### [place] [address] MCHC 34.3 G/dL Normal 32.0-36.0 [facility] Comment on above: Performed By: #### F ERR, CBC, FE, ANEU, ADIFF #### [address] [address] MCV (RBC) [Entitic vol] 93.3 fL Normal 81.0-100.0 [facility] Comment on above: Performed By: #### F ERR, CBC, FE, ANEU, ADIFF #### [address] [address] Platelet 203 10 3/mcL Normal 150-450 [facility] Comment on above: Performed By: #### F ERR, CBC, FE, ANEU, ADIFF #### [place] [address] Platelet mean volume (Bld) [Entitic vol] 8.2 fL Normal 6.4-10.5 [facility] Comment on above: Performed By: #### F ERR, CBC, FE, ANEU, ADIFF #### [place] [address] RBC 3.90 10 6/mcL Low 4.50-6.00 [facility] Comment on above: Performed By: #### F ERR, CBC, FE, ANEU, ADIFF #### [place] [address] WBC 4.2 10 3/mcL Low 4.5-10.8 [facility] Comment on above: Performed By: #### F ERR, CBC, FE, ANEU, ADIFF #### [place] [address] FEon 10-05-2024 Iron [Mass/Vol] 84 ug/dL Normal 65-175 [facility] Comment on above: Performed By: #### F ERR, CBC, FE, ANEU, ADIFF #### [address] [address] Tres 10-05-2024 Ferritin [Mass/Vol] 55.0 ng/mL Normal 26.0-388.0 [facility] Comment on above: Performed By: #### F ERR, CBC, FE, ANEU, ADIFF #### [place] [address] LABORATORYOrdered By: SYSTEM SYSTEM on 10-05-2024 Basophils [...] Basophil, Absolute 0.0 10 3/mcL Normal 0.0-0.2 [facility] Comment on above: Performed By: #### F ERR, CBC, FE, ANEU, ADIFF #### [address] [address] Basophils/100 WBC (Bld) 0.9 % Normal 0.0-2.5 [facility] Comment on above: Performed By: #### F ERR, CBC, FE, ANEU, ADIFF #### [address] [address] Eosinophil, Absolute 0.2 10 3/mcL Normal 0.0-0.7 [facility] Comment on above: Performed By: #### F ERR, CBC, FE, ANEU, ADIFF #### [address] [address] Eosinophils/100 WBC (Bld) 4.4 % Normal 0.0-7.0 [facility] Comment on above: Performed By: #### F ERR, CBC, FE, ANEU, ADIFF #### [address] [address] Lymphocyte, Absolute 1.4 10 3/mcL Normal 0.9-4.3 [facility] Comment on above: Performed By: #### F ERR, CBC, FE, ANEU, ADIFF #### [address] [address] Lymphocytes/100 WBC (Bld) 28.4 % Normal 20.0-40.0 [facility] Comment on above: Performed By: #### F ERR, CBC, FE, ANEU, ADIFF #### [address] [address] Monocyte, Absolute 0.5 10 3/mcL Normal 0.1-1.4 [facility] Comment on above: Performed By: #### F ERR, CBC, FE, ANEU, ADIFF #### [address] [address] Monocytes/100 WBC (Bld) 9.1 % Normal 2.0-13.0 [facility] Comment on above: Performed By: #### F ERR, CBC, FE, ANEU, ADIFF #### [address] [address] Neutrophils/100 WBC (Bld) 57.2 % Normal 50.0-75.0 [facility] Comment on above: Performed By: #### F ERR, CBC, FE, ANEU, ADIFF #### [place] [id number] .NEUABSon 07-06-2024 Neutrophil, Absolute 2.9 10 3/mcL Normal 2.3-8.1 [facility] Comment on above: Performed By: #### F ERR, CBC, FE, ANEU, ADIFF #### [place] [address] CBCon 07-06-2024 Erythrocyte distribution width (RBC) [Ratio] 15.5 % Normal 11.5-15.5 [facility] Comment on above: Performed By: #### F ERR, CBC, FE, ANEU, ADIFF #### [place] [address] Hematocrit (Bld) [Volume fraction] 37.0 % Low 40.0-52.0 [facility] Comment on above: Performed By: #### F ERR, CBC, FE, ANEU, ADIFF #### [place] [address] Hgb 12.7 G/dL Low 13.0-17.5 [facility] Comment on above: Performed By: #### F ERR, CBC, FE, ANEU, ADIFF #### [place] [address] MCH (RBC) [Entitic mass] 32.3 pg Normal 27.0-33.0 [facility] Comment on above: Performed By: #### F ERR, CBC, FE, ANEU, ADIFF #### [place] [address] MCHC 34.4 G/dL Normal 32.0-36.0 [facility] Comment on above: Performed By: #### F ERR, CBC, FE, ANEU, ADIFF #### [address] [address] MCV (RBC) [Entitic vol] 93.9 fL Normal 81.0-100.0 [facility] Comment on above: Performed By: #### F ERR, CBC, FE, ANEU, ADIFF #### [address] [address] Platelet 192 10 3/mcL Normal 150-450 [facility] Comment on above: Performed By: #### F ERR, CBC, FE, ANEU, ADIFF #### [address] [address] Platelet mean volume (Bld) [Entitic vol] 8.0 fL Normal 6.4-10.5 [facility] Comment on above: Performed By: #### F ERR, CBC, FE, ANEU, ADIFF #### [address] [address] RBC 3.94 10 6/mcL Low 4.50-6.00 [facility] Comment on above: Performed By: #### F ERR, CBC, FE, ANEU, ADIFF #### [address] [address] WBC 5.1 10 3/mcL Normal 4.5-10.8 [facility] Comment on above: Performed By: #### F ERR, CBC, FE, ANEU, ADIFF #### [address] [address] FEon 07-06-2024 Iron [Mass/Vol] 77 ug/dL Normal 65-175 [facility] Comment on above: Performed By: #### F ERR, CBC, FE, ANEU, ADIFF #### [address] [address] Tres 07-06-2024 Ferritin [Mass/Vol] 74.0 ng/mL Normal 26.0-388.0 [facility] Comment on above: Performed By: #### F ERR, CBC, FE, ANEU, ADIFF #### [place] [address] [place] [address] LABORATORYOrdered By: SYSTEM SYSTEM on 07-06-2024 Basophils [...] MALBRon 04-27-2024 U Creatinine 144.6 mg/dL Normal [facility] Comment on above: Performed By: #### F ERR, CBC, FE, ANEU, ADIFF #### [address] [address] U Microalb 5011 mcg/dL Normal [facility] Comment on above: Performed By: #### F ERR, CBC, FE, ANEU, ADIFF #### [address] [address] U Ratio Alb/Cre 35 mcg/mg High 0-30 [facility] Comment on above: Performed By: #### F ERR, CBC, FE, ANEU, ADIFF #### [address] [address] LABORATORYOrdered By: Vaughn Schneider on 04-09-2024 Albumin DL <= 20 mg/L (U) [Mass/Vol] 3705 mcg/dL Invalid Interpretation Code AO ADM SS Albumin/Creatinine DL <= 20 mg/L (U) [Mass ratio] 47 mcg/mg High 0 - 30 mcg/mg AO ADM SS Creatinine (U) [Mass/Vol] 78.8 mg/dL Normal 39.0 - 259.0 mg/dL AO ADM SS MALBRon 04-09-2024 U Creatinine 78.8 mg/dL Normal 39.0-259.0 [facility] Comment on above: Performed By: #### F ERR, CBC, FE, ANEU, ADIFF #### [address] [address] U Microalb 3705 mcg/dL Normal [facility] Comment on above: Performed By: #### F ERR, CBC, FE, ANEU, ADIFF #### [address] [address] U Ratio Alb/Cre 47 mcg/mg High 0-30 [facility] Comment on above: Performed By: #### F ERR, CBC, FE, ANEU, ADIFF #### [address] [address] .Auto Diffon 04-03-2024 Basophil, Absolute 0.0 10 3/mcL Normal 0.0-0.2 [facility] Comment on above: Performed By: #### F ERR, CBC, FE, ANEU, ADIFF #### [address] [address] Basophils/100 WBC (Bld) 0.2 % Normal 0.0-2.5 [facility] Comment on above: Performed By: #### F ERR, CBC, FE, ANEU, ADIFF #### [address] [address] Eosinophil, Absolute 0.2 10 3/mcL Normal 0.0-0.7 [facility] Comment on above: Performed By: #### F ERR, CBC, FE, ANEU, ADIFF #### [address] [address] Eosinophils/100 WBC (Bld) 1.9 % Normal 0.0-7.0 [facility] Comment on above: Performed By: #### F ERR, CBC, FE, ANEU, ADIFF #### [address] [address] Lymphocyte, Absolute 1.1 10 3/mcL Normal 0.9-4.3 [facility] Comment on above: Performed By: #### F ERR, CBC, FE, ANEU, ADIFF #### [address] [address] Lymphocytes/100 WBC (Bld) 11.9 % Low 20.0-40.0 [facility] Comment on above: Performed By: #### F ERR, CBC, FE, ANEU, ADIFF #### [address] [address] Monocyte, Absolute 0.7 10 3/mcL Normal 0.1-1.4 [facility] Comment on above: Performed By: #### F ERR, CBC, FE, ANEU, ADIFF #### [address] [address] Monocytes/100 WBC (Bld) 7.4 % Normal 2.0-13.0 [facility] Comment on above: Performed By: #### F ERR, CBC, FE, ANEU, ADIFF #### [address] [address] Neutrophils/100 WBC (Bld) 78.6 % High 50.0-75.0 [facility] Comment on above: Performed By: #### F ERR, CBC, FE, ANEU, ADIFF #### [address] [address] .NEUABSon 04-03-2024 Neutrophil, Absolute 7.3 10 3/mcL Normal 2.3-8.1 [facility] Comment on above: Performed By: #### F ERR, CBC, FE, ANEU, ADIFF #### [address] [address] CBCon 04-03-2024 Erythrocyte distribution width (RBC) [Ratio] 14.2 % Normal 11.5-15.5 [facility] Comment on above: Performed By: #### F ERR, CBC, FE, ANEU, ADIFF #### [place] [address] Hematocrit (Bld) [Volume fraction] 36.1 % Low 40.0-52.0 [facility] Comment on above: Performed By: #### F ERR, CBC, FE, ANEU, ADIFF #### [address] [address] Hgb 12.4 G/dL Low 13.0-17.5 [facility] Comment on above: Performed By: #### F ERR, CBC, FE, ANEU, ADIFF #### [place] [address] MCH (RBC) [Entitic mass] 32.8 pg Normal 27.0-33.0 [facility] Comment on above: Performed By: #### F ERR, CBC, FE, ANEU, ADIFF #### [place] [address] MCHC 34.2 G/dL Normal 32.0-36.0 [facility] Comment on above: Performed By: #### F ERR, CBC, FE, ANEU, ADIFF #### [place] [address] MCV (RBC) [Entitic vol] 95.8 fL Normal 81.0-100.0 [facility] Comment on above: Performed By: #### F ERR, CBC, FE, ANEU, ADIFF #### [place] [address] Platelet 150 10 3/mcL Normal 150-450 [facility] Comment on above: Performed By: #### F ERR, CBC, FE, ANEU, ADIFF #### [place] [address] Platelet mean volume (Bld) [Entitic vol] 8.4 fL Normal 6.4-10.5 [facility] Comment on above: Performed By: #### F ERR, CBC, FE, ANEU, ADIFF #### [place] [address] RBC 3.77 10 6/mcL Low 4.50-6.00 [facility] Comment on above: Performed By: #### F ERR, CBC, FE, ANEU, ADIFF #### [place] [address] WBC 9.3 10 3/mcL Normal 4.5-10.8 [facility] Comment on above: Performed By: #### F ERR, CBC, FE, ANEU, ADIFF #### [place] [address] FEon 04-03-2024 Iron [Mass/Vol] 26 ug/dL Low 65-175 [facility] Comment on above: Performed By: #### F ERR, CBC, FE, ANEU, ADIFF #### [place] [address] Tres 04-03-2024 Ferritin [Mass/Vol] 76.0 ng/mL Normal 26.0-388.0 [facility] Comment on above: Performed By: #### F ERR, CBC, FE, ANEU, ADIFF #### [place] [address] LABORATORYOrdered By: SYSTEM SYSTEM on 04-03-2024 Basophils [...] Workflow SS CT HEAD OR BRAIN W/O [facility] 02-20-2024 CT HEAD OR BRAIN W/O CONTRAST [...] Sign Date: 02/20/2024 3:29:22 PM Ordering Provider: [facility] [place] CT MAXILLOFACIAL W/O CONTRAS Ton 02-20-2024 CT MAXILLOFACIAL W/O CONTRAST ORIGINAL HISTORY: [...] Sign Date: 02/20/2024 3:38:46 PM Ordering Provider: [facility] [place] CT SPINE CERVICAL W/O CONTRA STon 02-20-2024 CT SPINE CERVICAL W/O CONTRAST ORIGINAL [...] Sign Date: 02/20/2024 3:59:40 PM Ordering Provider: NELIDA Spangler [facility] .Auto Diffon 01-21-2024 Basophil, Absolute 0.1 10 3/mcL Normal 0.0-0.2 [facility] Comment on above: Performed By: #### F ERR, LIPID, PSA, FE, CMP, GFR, ADIFF, CBC, ANEU #### [address] [address] #### FOL, B12 #### [address] [address] Basophils/100 WBC (Bld) 1.0 % Normal 0.0-2.5 [facility] Comment on above: Performed By: #### F ERR, LIPID, PSA, FE, CMP, GFR, ADIFF, CBC, ANEU #### [address] [address] #### FOL, B12 #### [address] [address] Eosinophil, Absolute 0.3 10 3/mcL Normal 0.0-0.4 [facility] Comment on above: Performed By: #### F ERR, LIPID, PSA, FE, CMP, GFR, ADIFF, CBC, ANEU #### [place] [address] #### FOL, B12 #### [address] [address] Eosinophils/100 WBC (Bld) 5.4 % Normal 0.0-7.0 [facility] Comment on above: Performed By: #### F ERR, LIPID, PSA, FE, CMP, GFR, ADIFF, CBC, ANEU #### [place] [address] #### FOL, B12 #### [address] [address] Lymphocyte, Absolute 1.6 10 3/mcL Normal 0.8-3.9 [facility] Comment on above: Performed By: #### F ERR, LIPID, PSA, FE, CMP, GFR, ADIFF, CBC, ANEU #### [address] [address] #### FOL, B12 #### [address] [address] Lymphocytes/100 WBC (Bld) 28.6 % Normal 10.0-50.0 [facility] Comment on above: Performed By: #### F ERR, LIPID, PSA, FE, CMP, GFR, ADIFF, CBC, ANEU #### [address] [address] #### FOL, B12 #### [address] [address] Monocyte, Absolute 0.4 10 3/mcL Normal 0.2-1.0 [facility] Comment on above: Performed By: #### F ERR, LIPID, PSA, FE, CMP, GFR, ADIFF, CBC, ANEU #### [place] [address] #### FOL, B12 #### [address] [address] Monocytes/100 WBC (Bld) 7.5 % Normal 1.7-13.0 [facility] Comment on above: Performed By: #### F ERR, LIPID, PSA, FE, CMP, GFR, ADIFF, CBC, ANEU #### [address] [address] #### FOL, B12 #### [address] [address] Neutrophils/100 WBC (Bld) 57.5 % Normal 37.0-80.0 [facility] Comment on above: Performed By: #### F ERR, LIPID, PSA, FE, CMP, GFR, ADIFF, CBC, ANEU #### [place] [address] #### FOL, B12 #### [facility] [address] [place] [address] .GFRon 01-21-2024 GFR 110 ml/min/1.73sqm Normal [facility] Comment on above: Result Comment: GFR [...] F ERR, CBC, FE, ANEU, ADIFF #### [address] [address] GFR Non- 91 ml/min/1.73sqm Normal [facility] Comment on above: Result Comment: GFR [...] F ERR, CBC, FE, ANEU, ADIFF #### [place] [id number] [place], [place] [address] .NEUABSon 01-21-2024 Neutrophil, Absolute 3.2 10 3/mcL Normal 2.9-6.2 [facility] Comment on above: Performed By: #### F ERR, LIPID, PSA, FE, CMP, GFR, ADIFF, CBC, ANEU #### [address] [address] #### FOL, B12 #### [address] [address] B12on 01-21-2024 Cobalamin (Vitamin B12) [Mass/Vol] 275 pg/mL Normal 211-911 [facility] Comment on above: Performed By: #### F ERR, CBC, FE, ANEU, ADIFF #### [address] [address] CBCon 01-21-2024 Erythrocyte distribution width (RBC) [Ratio] 14.7 % High 11.5-14.5 [facility] Comment on above: Performed By: #### F ERR, LIPID, PSA, FE, CMP, GFR, ADIFF, CBC, ANEU #### [place] [address] #### FOL, B12 #### [place] [address] Hematocrit (Bld) [Volume fraction] 36.6 % Low 42.0-52.0 [facility] Comment on above: Performed By: #### F ERR, LIPID, PSA, FE, CMP, GFR, ADIFF, CBC, ANEU #### [place] [address] #### FOL, B12 #### [place] [address] Hgb 12.4 G/dL Low 14.0-18.0 [facility] Comment on above: Performed By: #### F ERR, LIPID, PSA, FE, CMP, GFR, ADIFF, CBC, ANEU #### [place] [address] #### FOL, B12 #### [address] [address] MCH (RBC) [Entitic mass] 32.5 pg High 27.0-31.2 [facility] Comment on above: Performed By: #### F ERR, LIPID, PSA, FE, CMP, GFR, ADIFF, CBC, ANEU #### [place] [address] #### FOL, B12 #### [place] [address] MCHC 33.8 G/dL Normal 31.8-35.4 [facility] Comment on above: Performed By: #### F ERR, LIPID, PSA, FE, CMP, GFR, ADIFF, CBC, ANEU #### [place] [address] #### FOL, B12 #### [place] [address] MCV (RBC) [Entitic vol] 96.3 fL High 80.0-94.0 [facility] Comment on above: Performed By: #### F ERR, LIPID, PSA, FE, CMP, GFR, ADIFF, CBC, ANEU #### [place] [address] #### FOL, B12 #### [place] [address] Platelet 186 10 3/mcL Normal 130-400 [facility] Comment on above: Performed By: #### F ERR, LIPID, PSA, FE, CMP, GFR, ADIFF, CBC, ANEU #### [place] [address] #### FOL, B12 #### [place] [address] Platelet mean volume (Bld) [Entitic vol] 7.9 fL Normal 7.4-10.4 [facility] Comment on above: Performed By: #### F ERR, LIPID, PSA, FE, CMP, GFR, ADIFF, CBC, ANEU #### [place] [address] #### FOL, B12 #### [place] [address] RBC 3.81 10 6/mcL Low 4.04-6.13 [facility] Comment on above: Performed By: #### F ERR, LIPID, PSA, FE, CMP, GFR, ADIFF, CBC, ANEU #### [address] [address] #### FOL, B12 #### [place] [address] WBC 5.6 10 3/mcL Normal 4.6-10.8 [facility] Comment on above: Performed By: #### F ERR, LIPID, PSA, FE, CMP, GFR, ADIFF, CBC, ANEU #### [place] [address] #### FOL, B12 #### [place] [address] CMPon 01-21-2024 Albumin Level 3.9 G/dL Normal 3.4-4.8 [facility] Comment on above: Performed By: #### F ERR, CBC, FE, ANEU, ADIFF #### [place] [id number] Albumin/Globulin [Mass ratio] 1.6 {ratio} Normal 1.1-2.5 [facility] Comment on above: Performed By: #### F ERR, CBC, FE, ANEU, ADIFF #### [place] [address] ALP [Catalytic activity/Vol] 66 U/L Normal 40-135 [facility] Comment on above: Performed By: #### F ERR, CBC, FE, ANEU, ADIFF #### [place] [address] ALT [Catalytic activity/Vol] 16 U/L Normal 16-63 [facility] Comment on above: Performed By: #### F ERR, CBC, FE, ANEU, ADIFF #### [place] [id number] AST [Catalytic activity/Vol] 10 U/L Normal 10-40 [facility] Comment on above: Performed By: #### F ERR, CBC, FE, ANEU, ADIFF #### [place] [id number] Bili Total 0.7 mg/dL Normal 0.2-1.0 [facility] Comment on above: Result Comment: Use of this assay is not recommended for patients undergoing treatment with eltrombopag due to the potential for falsely elevated results. Performed By: #### F ERR, CBC, FE, ANEU, ADIFF #### [place] [address] BUN/Creatinine Ratio 15 ratio Normal 7-27 [facility] Comment on above: Performed By: #### F ERR, CBC, FE, ANEU, ADIFF #### [place] [address] Calcium [Mass/Vol] 9.1 mg/dL Normal 8.4-10.2 [facility] Comment on above: Performed By: #### F ERR, CBC, FE, ANEU, ADIFF #### [place] [address] Chloride [Moles/Vol] 96 mmol/L Low 98-107 [facility] Comment on above: Performed By: #### F ERR, CBC, FE, ANEU, ADIFF #### [place] [address] CO2 [Moles/Vol] 30 mmol/L Normal 23-31 [facility] Comment on above: Performed By: #### F ERR, CBC, FE, ANEU, ADIFF #### [place] [address] Creatinine [Mass/Vol] 0.81 mg/dL Normal 0.70-1.30 [facility] Comment on above: Result Comment: Test ing performed on Siemens Dimension EXL analyzer using a modified kinetic Claudine technique. Performed By: #### F ERR, CBC, FE, ANEU, ADIFF #### [place] [address] Electrolyte Balance 5.0 mEq/L Normal 4.0-15.0 [facility] Comment on above: Performed By: #### F ERR, CBC, FE, ANEU, ADIFF #### [place] [address] Globulin 2.4 G/dL Normal [facility] Comment on above: Performed By: #### F ERR, CBC, FE, ANEU, ADIFF #### [address] [address] Glucose [Mass/Vol] 119 mg/dL High 83-110 [facility] Comment on above: Performed By: #### F ERR, CBC, FE, ANEU, ADIFF #### [address] [address] Potassium [Moles/Vol] 4.3 mmol/L Normal 3.5-5.1 [facility] Comment on above: Performed By: #### F ERR, CBC, FE, ANEU, ADIFF #### [address] [address] Sodium [Moles/Vol] 131 mmol/L Low 136-145 [facility] Comment on above: Performed By: #### F ERR, CBC, FE, ANEU, ADIFF #### [address] [address] Total Protein 6.3 G/dL Low 6.4-8.2 [facility] Comment on above: Performed By: #### F ERR, CBC, FE, ANEU, ADIFF #### [address] [address] Urea nitrogen [Mass/Vol] 12 mg/dL Normal 7-18 [facility] Comment on above: Performed By: #### F ERR, CBC, FE, ANEU, ADIFF #### [address] [address] FEon 01-21-2024 Iron [Mass/Vol] 55 ug/dL Low 65-175 [facility] Comment on above: Performed By: #### F ERR, CBC, FE, ANEU, ADIFF #### [address] [address] Tres 01-21-2024 Ferritin [Mass/Vol] 49.0 ng/mL Normal 26.0-388.0 [facility] Comment on above: Performed By: #### F ERR, LIPID, PSA, FE, CMP, GFR, ADIFF, CBC, ANEU #### [place] [id number] [place], [place] [address] #### FOL, B12 #### [place] [id number] [place] [address] FOLon 01-21-2024 Folate 21.89 ng/mL Normal 5.38-24.00 [facility] Comment on above: Performed By: #### F ERR, CBC, FE, ANEU, ADIFF #### [place] [id number] [place], [place] [address] LABORATORYOrdered By: SYSTEM SYSTEM on 01-21-2024 Albumin [...] 01-21-2024 Cholesterol [Mass/Vol] 124 mg/dL Normal 0-200 [facility] Comment on above: Result Comment: Chol esterol Reference Interval: Less than 200 Desirable 200-239 Borderline high risk 240 and above High risk Performed By: #### F ERR, CBC, FE, ANEU, ADIFF #### [facility] [address] [place], [place] [address] Cholesterol in HDL [Mass/Vol] 68 mg/dL High 40-60 [facility] Comment on above: Performed By: #### F ERR, CBC, FE, ANEU, ADIFF #### [address] [address] Cholesterol in LDL [Mass/Vol] 44 mg/dL Normal 0-130 [facility] Comment on above: Performed By: #### F ERR, CBC, FE, ANEU, ADIFF #### [address] [address] Triglyceride [Mass/Vol] 60 mg/dL Normal 0-150 [facility] Comment on above: Result Comment: Trig lyceride Reference Interval: Less than 150 Normal 150-199 Borderline high risk 200-499 High risk 500 or higher Very high risk Performed By: #### F ERR, CBC, FE, ANEU, ADIFF #### [address] [address] PSAon 01-21-2024 Prostate Specific Antigen 0.44 ng/mL Normal 0.00-4.00 [facility] Comment on above: Performed By: #### F ERR, CBC, FE, ANEU, ADIFF #### [address] [address] .Auto Diffon 01-10-2024 Basophil, Absolute 0.0 10 3/mcL Normal 0.0-0.2 [facility] Comment on above: Performed By: #### F ERR, CBC, FE, ANEU, ADIFF #### [address] [address] Basophils/100 WBC (Bld) 0.7 % Normal 0.0-2.5 [facility] Comment on above: Performed By: #### F ERR, CBC, FE, ANEU, ADIFF #### [address] [address] Eosinophil, Absolute 0.3 10 3/mcL Normal 0.0-0.4 [facility] Comment on above: Performed By: #### F ERR, CBC, FE, ANEU, ADIFF #### [address] [address] Eosinophils/100 WBC (Bld) 4.6 % Normal 0.0-7.0 [facility] Comment on above: Performed By: #### F ERR, CBC, FE, ANEU, ADIFF #### [address] [address] Lymphocyte, Absolute 1.0 10 3/mcL Normal 0.8-3.9 [facility] Comment on above: Performed By: #### F ERR, CBC, FE, ANEU, ADIFF #### [address] [address] Lymphocytes/100 WBC (Bld) 17.4 % Normal 10.0-50.0 [facility] Comment on above: Performed By: #### F ERR, CBC, FE, ANEU, ADIFF #### [address] [address] Monocyte, Absolute 0.4 10 3/mcL Normal 0.2-1.0 [facility] Comment on above: Performed By: #### F ERR, CBC, FE, ANEU, ADIFF #### [address] [address] Monocytes/100 WBC (Bld) 8.0 % Normal 1.7-13.0 [facility] Comment on above: Performed By: #### F ERR, CBC, FE, ANEU, ADIFF #### [address] [address] Neutrophils/100 WBC (Bld) 69.3 % Normal 37.0-80.0 [facility] Comment on above: Performed By: #### F ERR, CBC, FE, ANEU, ADIFF #### [address] [address] .GFRon 01-10-2024 GFR 107 ml/min/1.73sqm Normal [facility] Comment on above: Result Comment: GFR [...] F ERR, CBC, FE, ANEU, ADIFF #### [address] [address] GFR Non- 88 ml/min/1.73sqm Normal [facility] Comment on above: Result Comment: GFR [...] F ERR, CBC, FE, ANEU, ADIFF #### [address] [address] .NEUABSon 01-10-2024 Neutrophil, Absolute 3.9 10 3/mcL Normal 2.9-6.2 [facility] Comment on above: Performed By: #### F ERR, CBC, FE, ANEU, ADIFF #### [address] [address] CBCon 01-10-2024 Erythrocyte distribution width (RBC) [Ratio] 15.1 % High 11.5-14.5 [facility] Comment on above: Performed By: #### F ERR, CBC, FE, ANEU, ADIFF #### [address] [address] Hematocrit (Bld) [Volume fraction] 35.7 % Low 42.0-52.0 [facility] Comment on above: Performed By: #### F ERR, CBC, FE, ANEU, ADIFF #### [place] [address] Hgb 12.3 G/dL Low 14.0-18.0 [facility] Comment on above: Performed By: #### F ERR, CBC, FE, ANEU, ADIFF #### [place] [address] MCH (RBC) [Entitic mass] 33.1 pg High 27.0-31.2 [facility] Comment on above: Performed By: #### F ERR, CBC, FE, ANEU, ADIFF #### [place] [address] MCHC 34.4 G/dL Normal 31.8-35.4 [facility] Comment on above: Performed By: #### F ERR, CBC, FE, ANEU, ADIFF #### [place] [address] MCV (RBC) [Entitic vol] 96.1 fL High 80.0-94.0 [facility] Comment on above: Performed By: #### F ERR, CBC, FE, ANEU, ADIFF #### [place] [address] Platelet 168 10 3/mcL Normal 130-400 [facility] Comment on above: Performed By: #### F ERR, CBC, FE, ANEU, ADIFF #### [place] [address] Platelet mean volume (Bld) [Entitic vol] 8.4 fL Normal 7.4-10.4 [facility] Comment on above: Performed By: #### F ERR, CBC, FE, ANEU, ADIFF #### [place] [address] RBC 3.71 10 6/mcL Low 4.04-6.13 [facility] Comment on above: Performed By: #### F ERR, CBC, FE, ANEU, ADIFF #### [address] [address] WBC 5.6 10 3/mcL Normal 4.6-10.8 [facility] Comment on above: Performed By: #### F ERR, CBC, FE, ANEU, ADIFF #### [address] [address] CMPon 01-10-2024 Albumin Level 3.7 G/dL Normal 3.4-4.8 [facility] Comment on above: Performed By: #### F ERR, CBC, FE, ANEU, ADIFF #### [place] [id number] Albumin/Globulin [Mass ratio] 1.8 {ratio} Normal 1.1-2.5 [facility] Comment on above: Performed By: #### F ERR, CBC, FE, ANEU, ADIFF #### [place] [id number] ALP [Catalytic activity/Vol] 57 U/L Normal 40-135 [facility] Comment on above: Performed By: #### F ERR, CBC, FE, ANEU, ADIFF #### [place] [id number] ALT [Catalytic activity/Vol] 14 U/L Low 16-63 [facility] Comment on above: Performed By: #### F ERR, CBC, FE, ANEU, ADIFF #### [place] [id number] AST [Catalytic activity/Vol] 14 U/L Normal 10-40 [facility] Comment on above: Performed By: #### F ERR, CBC, FE, ANEU, ADIFF #### [place] [id number] Bili Total 0.7 mg/dL Normal 0.2-1.0 [facility] Comment on above: Result Comment: Use of this assay is not recommended for patients undergoing treatment with eltrombopag due to the potential for falsely elevated results. Performed By: #### F ERR, CBC, FE, ANEU, ADIFF #### [address] [address] BUN/Creatinine Ratio 17 ratio Normal 7-27 [facility] Comment on above: Performed By: #### F ERR, CBC, FE, ANEU, ADIFF #### [address] [address] Calcium [Mass/Vol] 9.2 mg/dL Normal 8.4-10.2 [facility] Comment on above: Performed By: #### F ERR, CBC, FE, ANEU, ADIFF #### [place] [address] Chloride [Moles/Vol] 95 mmol/L Low 98-107 [facility] Comment on above: Performed By: #### F ERR, CBC, FE, ANEU, ADIFF #### [place] [address] CO2 [Moles/Vol] 31 mmol/L Normal 23-31 [facility] Comment on above: Performed By: #### F ERR, CBC, FE, ANEU, ADIFF #### [place] [id number] Creatinine [Mass/Vol] 0.83 mg/dL Normal 0.70-1.30 [facility] Comment on above: Result Comment: Test ing performed on Siemens Dimension EXL analyzer using a modified kinetic Claudine technique. Performed By: #### F ERR, CBC, FE, ANEU, ADIFF #### [place] [address] Electrolyte Balance 6.0 mEq/L Normal 4.0-15.0 [facility] Comment on above: Performed By: #### F ERR, CBC, FE, ANEU, ADIFF #### [place] [address] Globulin 2.0 G/dL Normal [facility] Comment on above: Performed By: #### F ERR, CBC, FE, ANEU, ADIFF #### [place] [address] Glucose [Mass/Vol] 120 mg/dL High 83-110 [facility] Comment on above: Performed By: #### F ERR, CBC, FE, ANEU, ADIFF #### [address] [address] Potassium [Moles/Vol] 4.6 mmol/L Normal 3.5-5.1 [facility] Comment on above: Performed By: #### F ERR, CBC, FE, ANEU, ADIFF #### [address] [address] Sodium [Moles/Vol] 132 mmol/L Low 136-145 [facility] Comment on above: Performed By: #### F ERR, CBC, FE, ANEU, ADIFF #### [address] [address] Total Protein 5.7 G/dL Low 6.4-8.2 [facility] Comment on above: Performed By: #### F ERR, CBC, FE, ANEU, ADIFF #### [address] [address] Urea nitrogen [Mass/Vol] 14 mg/dL Normal 7-18 [facility] Comment on above: Performed By: #### F ERR, CBC, FE, ANEU, ADIFF #### [address] [address] LABORATORYOrdered By: SYSTEM SYSTEM on 01-10-2024 Albumin [...] 01-10-2024 Cholesterol [Mass/Vol] 127 mg/dL Normal 0-200 [facility] Comment on above: Result Comment: Chol esterol Reference Interval: Less than 200 Desirable 200-239 Borderline high risk 240 and above High risk Performed By: #### F ERR, CBC, FE, ANEU, ADIFF #### [facility] [address] [place], [place] [address] Cholesterol in HDL [Mass/Vol] 69 mg/dL High 40-60 [facility] Comment on above: Performed By: #### F ERR, CBC, FE, ANEU, ADIFF #### Shannan [place] [address] [place], [place] [address] Cholesterol in LDL [Mass/Vol] 46 mg/dL Normal 0-130 [facility] Comment on above: Performed By: #### F ERR, CBC, FE, ANEU, ADIFF #### Shannan [place] [address] [place], [place] [address] Triglyceride [Mass/Vol] 61 mg/dL Normal 0-150 [facility] Comment on above: Result Comment: Trig lyceride Reference Interval: Less than 150 Normal 150-199 Borderline high risk 200-499 High risk 500 or higher Very high risk Performed By: #### F ERR, CBC, FE, ANEU, ADIFF #### [place] [id number] [place], [place] [address] LABORATORYOrdered By: Dolores Bal on 10-09-2023 Albumin DL <= 20 mg/L (U) [Mass/Vol] 3296 mcg/dL Invalid Interpretation Code AO ADM SS Albumin/Creatinine DL <= 20 mg/L (U) [Mass ratio] 43 mcg/mg High 0 - 30 mcg/mg AO ADM SS Creatinine (U) [Mass/Vol] 76.6 mg/dL Normal 39.0 - 259.0 mg/dL AO ADM SS MALBRon 10-09-2023 U Creatinine 76.6 mg/dL Normal 39.0-259.0 [facility] ([place]) Comment on above: Performed By: #### M ALBR ####[address] [place], [place] [address] U Microalb 3296 mcg/dL Normal [facility] ([place]) Comment on above: Performed By: #### M ALBR ####[address] [place], [place] [address] U Ratio Alb/Cre 43 mcg/mg High 0-30 [facility] ([place]) Comment on above: Performed By: #### M ALBR ####[facility] [place], [place] [address] XR WRIST MINIMUM 3 VIEWS LEF Ton [...] Sign Date: 09/02/2023 3:21:09 PM Ordering Provider: YASMANI Spangler [facility] ([place]) .Auto Diffon 08-30-2023 Basophil, Absolute 0.0 10 3/mcL Normal 0.0-0.2 [facility] ([place]) Comment on above: Performed By: #### A 1C, TSH, CBC, CMP, PSA, GFR, ADIFF, VIDH, ANEU #### [address] [address] Basophils/100 WBC (Bld) 0.6 % Normal 0.0-2.5 [facility] ([place]) Comment on above: Performed By: #### A 1C, TSH, CBC, CMP, PSA, GFR, ADIFF, VIDH, ANEU #### [address] [address] Eosinophil, Absolute 0.3 10 3/mcL Normal 0.0-0.4 [facility] ([place]) Comment on above: Performed By: #### A 1C, TSH, CBC, CMP, PSA, GFR, ADIFF, VIDH, ANEU #### [address] [address] Eosinophils/100 WBC (Bld) 4.3 % Normal 0.0-7.0 [facility] ([place]) Comment on above: Performed By: #### A 1C, TSH, CBC, CMP, PSA, GFR, ADIFF, VIDH, ANEU #### [address] [address] Lymphocyte, Absolute 1.7 10 3/mcL Normal 0.8-3.9 [facility] ([place]) Comment on above: Performed By: #### A 1C, TSH, CBC, CMP, PSA, GFR, ADIFF, VIDH, ANEU #### [address] [address] Lymphocytes/100 WBC (Bld) 27.3 % Normal 10.0-50.0 [facility] ([place] Comment on above: Performed By: #### A 1C, TSH, CBC, CMP, PSA, GFR, ADIFF, VIDH, ANEU #### [address] [address] Monocyte, Absolute 0.5 10 3/mcL Normal 0.2-1.0 [facility] ([place] Comment on above: Performed By: #### A 1C, TSH, CBC, CMP, PSA, GFR, ADIFF, VIDH, ANEU #### [address] [address] Monocytes/100 WBC (Bld) 8.2 % Normal 1.7-13.0 [facility] ([place]) Comment on above: Performed By: #### A 1C, TSH, CBC, CMP, PSA, GFR, ADIFF, VIDH, ANEU #### [address] [address] Neutrophils/100 WBC (Bld) 59.6 % Normal 37.0-80.0 [facility] ([place]) Comment on above: Performed By: #### A 1C, TSH, CBC, CMP, PSA, GFR, ADIFF, VIDH, ANEU #### [address] [address] .GFRon 08-30-2023 GFR 99 ml/min/1.73sqm Normal [facility] ([place]) Comment on above: Result Comment: GFR Population [...] CBC, CMP, PSA, GFR, ADIFF, VIDH, ANEU ####[address] [place], [place] [address] GFR Non- 81 ml/min/1.73sqm Normal [facility] ([place]) Comment on above: Result Comment: GFR Population [...] CBC, CMP, PSA, GFR, ADIFF, VIDH, ANEU ####[address] [place], [place] [address] .NEUABSon 08-30-2023 Neutrophil, Absolute 3.7 10 3/mcL Normal 2.9-6.2 [facility] ([place]) Comment on above: Performed By: #### A 1C, TSH, CBC, CMP, PSA, GFR, ADIFF, VIDH, ANEU #### [place] [address] A1Con 08-30-2023 HbA1c (Bld) [Mass fraction] 6.9 % High 4.3-6.4 [facility] ([place]) Comment on above: Performed By: #### A 1C, TSH, CBC, CMP, PSA, GFR, ADIFF, VIDH, ANEU #### [place] [address] CBCon 08-30-2023 Erythrocyte distribution width (RBC) [Ratio] 15.3 % High 11.5-14.5 [facility] ([place]) Comment on above: Performed By: #### A 1C, TSH, CBC, CMP, PSA, GFR, ADIFF, VIDH, ANEU #### [place] [address] Hematocrit (Bld) [Volume fraction] 39.1 % Low 42.0-52.0 [facility] ([place] Comment on above: Performed By: #### A 1C, TSH, CBC, CMP, PSA, GFR, ADIFF, VIDH, ANEU #### [place] [address] Hgb 13.5 G/dL Low 14.0-18.0 [facility] ([place]) Comment on above: Performed By: #### A 1C, TSH, CBC, CMP, PSA, GFR, ADIFF, VIDH, ANEU #### [place] [address] MCH (RBC) [Entitic mass] 32.3 pg High 27.0-31.2 [facility] ([place]) Comment on above: Performed By: #### A 1C, TSH, CBC, CMP, PSA, GFR, ADIFF, VIDH, ANEU #### [place] [address] MCHC 34.6 G/dL Normal 31.8-35.4 [facility] ([place]) Comment on above: Performed By: #### A 1C, TSH, CBC, CMP, PSA, GFR, ADIFF, VIDH, ANEU #### [address] [address] MCV (RBC) [Entitic vol] 93.2 fL Normal 80.0-94.0 [facility] ([place]) Comment on above: Performed By: #### A 1C, TSH, CBC, CMP, PSA, GFR, ADIFF, VIDH, ANEU #### [address] [address] Platelet 191 10 3/mcL Normal 130-400 [facility] ([place]) Comment on above: Performed By: #### A 1C, TSH, CBC, CMP, PSA, GFR, ADIFF, VIDH, ANEU #### [address] [address] Platelet mean volume (Bld) [Entitic vol] 8.7 fL Normal 7.4-10.4 [facility] ([place]) Comment on above: Performed By: #### A 1C, TSH, CBC, CMP, PSA, GFR, ADIFF, VIDH, ANEU #### [address] [address] RBC 4.19 10 6/mcL Normal 4.04-6.13 [facility] ([place]) Comment on above: Performed By: #### A 1C, TSH, CBC, CMP, PSA, GFR, ADIFF, VIDH, ANEU #### [address] [address] WBC 6.3 10 3/mcL Normal 4.6-10.8 [facility] ([place]) Comment on above: Performed By: #### A 1C, TSH, CBC, CMP, PSA, GFR, ADIFF, VIDH, ANEU #### [address] [address] CMPon 08-30-2023 Albumin Level 4.3 G/dL Normal 3.4-4.8 [facility] ([place]) Comment on above: Performed By: #### A 1C, TSH, CBC, CMP, PSA, GFR, ADIFF, VIDH, ANEU #### [address] [address] Albumin/Globulin [Mass ratio] 1.8 {ratio} Normal 1.1-2.5 [facility] ([place]) Comment on above: Performed By: #### A 1C, TSH, CBC, CMP, PSA, GFR, ADIFF, VIDH, ANEU #### [address] [address] ALP [Catalytic activity/Vol] 49 U/L Normal 40-135 [facility] ([place]) Comment on above: Performed By: #### A 1C, TSH, CBC, CMP, PSA, GFR, ADIFF, VIDH, ANEU #### [address] [address] ALT [Catalytic activity/Vol] 23 U/L Normal 16-63 [facility] ([place]) Comment on above: Performed By: #### A 1C, TSH, CBC, CMP, PSA, GFR, ADIFF, VIDH, ANEU #### [address] [address] AST [Catalytic activity/Vol] 15 U/L Normal 10-40 [facility] ([place]) Comment on above: Performed By: #### A 1C, TSH, CBC, CMP, PSA, GFR, ADIFF, VIDH, ANEU #### [address] [address] Bili Total 0.7 mg/dL Normal 0.2-1.0 [facility] ([place]) Comment on above: Result Comment: Use of this assay is not recommended for patients undergoing treatment with eltrombopag due to the potential for falsely elevated results. Performed By: #### A 1C, TSH, CBC, CMP, PSA, GFR, ADIFF, VIDH, ANEU #### [address] [address] BUN/Creatinine Ratio 21 ratio Normal 7-27 [facility] ([place]) Comment on above: Performed By: #### A 1C, TSH, CBC, CMP, PSA, GFR, ADIFF, VIDH, ANEU #### [address] [address] Calcium [Mass/Vol] 9.6 mg/dL Normal 8.4-10.2 [facility] ([place]) Comment on above: Performed By: #### A 1C, TSH, CBC, CMP, PSA, GFR, ADIFF, VIDH, ANEU #### [address] [address] Chloride [Moles/Vol] 96 mmol/L Low 98-107 [facility] ([place]) Comment on above: Performed By: #### A 1C, TSH, CBC, CMP, PSA, GFR, ADIFF, VIDH, ANEU #### [address] [address] CO2 [Moles/Vol] 30 mmol/L Normal 23-31 [facility] ([place]) Comment on above: Performed By: #### A 1C, TSH, CBC, CMP, PSA, GFR, ADIFF, VIDH, ANEU #### [place] [address] Creatinine [Mass/Vol] 0.89 mg/dL Normal 0.70-1.30 [facility] ([place]) Comment on above: Performed By: #### A 1C, TSH, CBC, CMP, PSA, GFR, ADIFF, VIDH, ANEU #### [place] [address] Electrolyte Balance 8.0 mEq/L Normal 4.0-15.0 [facility] ([place]) Comment on above: Performed By: #### A 1C, TSH, CBC, CMP, PSA, GFR, ADIFF, VIDH, ANEU #### [place] [address] Globulin 2.4 G/dL Normal [facility] ([place]) Comment on above: Performed By: #### A 1C, TSH, CBC, CMP, PSA, GFR, ADIFF, VIDH, ANEU #### [address] [address] Glucose [Mass/Vol] 113 mg/dL High 83-110 [facility] ([place]) Comment on above: Performed By: #### A 1C, TSH, CBC, CMP, PSA, GFR, ADIFF, VIDH, ANEU #### [address] [address] Potassium [Moles/Vol] 4.8 mmol/L Normal 3.5-5.1 [facility] ([place]) Comment on above: Performed By: #### A 1C, TSH, CBC, CMP, PSA, GFR, ADIFF, VIDH, ANEU #### [address] [address] Sodium [Moles/Vol] 134 mmol/L Low 136-145 [facility] ([place]) Comment on above: Performed By: #### A 1C, TSH, CBC, CMP, PSA, GFR, ADIFF, VIDH, ANEU #### [address] [address] Total Protein 6.7 G/dL Normal 6.4-8.2 [facility] ([place]) Comment on above: Performed By: #### A 1C, TSH, CBC, CMP, PSA, GFR, ADIFF, VIDH, ANEU #### [address] [address] Urea nitrogen [Mass/Vol] 19 mg/dL High 7-18 [facility] ([place]) Comment on above: Performed By: #### A 1C, TSH, CBC, CMP, PSA, GFR, ADIFF, VIDH, ANEU #### [address] [address] LABORATORYOrdered By: SYSTEM SYSTEM on 08-30-2023 25-hydroxyvitamin [...] Prostate Specific Antigen 0.49 ng/mL Normal 0.00-4.00 [facility] ([place]) Comment on above: Performed By: #### A 1C, TSH, CBC, CMP, PSA, GFR, ADDEBI, MEGAN, VALERIA #### Shannan [address] [address] TSHon 08-30-2023 TSH Qn 2.68 m[IU]/L Normal 0.36-3.74 [facility] ([place]) Comment on above: Order Comment: REFLE X FREE T4 IF ABNORMAL! (TSH < 0.36, or TSH > 3.64) Performed By: #### A 1C, TSH, CBC, CMP, PSA, GFR, ADIFF, VIDH, ANEU #### [address] [address] VIDHon 08-30-2023 Vit. D 25-Hydroxy 57.4 ng/mL Normal [facility] ([place]) Comment on above: Result Comment: Inte rpretive Values Based on Total 25(OH) Vitamin D: Deficient <20 ng/mL Insufficient 20 - <30 ng/mL Sufficient 30-100 ng/mL Performed By: #### A 1C, TSH, CBC, CMP, PSA, GFR, ADIFF, VIDH, ANEU #### [address] [address] MALBRon 04-19-2023 U Creatinine 240.2 mg/dL Normal 39.0-259.0 [facility] ([place]) Comment on above: Performed By: #### M ALBR #### [address] [address] U Microalb 8893 mcg/dL Normal [facility] ([place]) Comment on above: Performed By: #### M ALBR #### [address] [address] U Ratio Alb/Cre 37 mcg/mg High 0-30 [facility] ([place]) Comment on above: Performed By: #### M ALBR #### [address] [address] LABORATORYOrdered By: SYSTEM SYSTEM on 09-04-2022 Albumin [...] 11-13-2024 10:05-0400 Body temperature 97.5 [degF] Rashmi Baltes [employer]ING [employer]C Work Phone: [facility] 11-13-2024 10:05-0400 Diastolic blood pressure 80 mm[Hg] Rashmi Baltes [employer]ING [employer] Work Phone: [facility] 11-13-2024 10:05-0400 Heart rate 91 /min Rashmi Baltes [employer]ING [employer] Work Phone: [facility] 11-13-2024 10:05-0400 Respiratory rate 18 /min Rashmi Baltes [employer]ING [employer]C Work Phone: [facility] 11-13-2024 10:05-0400 SaO2% (BldA) [Mass fraction] 97 % Rashmi Baltes [employer]ING [employer] Work Phone: [facility] 11-13-2024 10:05-0400 Systolic blood pressure 144 mm[Hg] Rashmi Baltes [employer]ING [employer] Work Phone: [facility] 11-10-2024 14:52-0400 Body mass index (BMI) [Ratio] 23.5 kg/m2 Rashmi Baltes [employer]ING [employer] Work Phone: [facility] 11-10-2024 14:52-0400 Body weight 67.99 kg Rashmi Baltes [employer]ING [employer] Work Phone: [facility] 11-09-2024 13:19-0400 Body height 170.18 cm Rashmi Baltes [employer]ING [employer] Work Phone: [facility] 10-31-2024 08:11-0400 Inhaled oxygen flow rate 4 L/min Rashmi Baltes [employer]ING [employer] Work Phone: [facility] 10-25-2024 02:52-0400 SaO2% (BldA) [Mass fraction] 98.4 % JUDIT HAHN MD [facility] 10-25-2024 01:07-0400 SaO2% (BldA) [Mass fraction] 74.9 % JUDIT HAHN MD [facility] 10-21-2024 14:28-0400 SaO2% (BldA) [Mass fraction] 99.1 % JUDIT HAHN MD [facility] 02-20-2024 14:47-0400 Body temperature 98.6 [degF] NELIDA GROVE DO [facility] 02-20-2024 14:47-0400 Body weight 72.7 kg NELIDA GROVE DO [facility] 02-20-2024 14:47-0400 Diastolic Blood Pressure Non-Invasive 96 mm[Hg] NELIDA GROVE DO [facility] 02-20-2024 14:47-0400 Heart rate 71 /min NELIDA GROVE DO [facility] 02-20-2024 14:47-0400 Respiratory rate 16 /min NELIDA GROVE DO [facility] 02-20-2024 14:47-0400 Systolic Blood Pressure Non-Invasive 165 mm[Hg] NELIDA GROVE DO [facility] Encounters Encounter Date Encounter Type Care Provider Facility Start: 11-23-2024 ambulatory Yasmani Vaughn ity:[facility] Start: 10-29-2024 End: 11-13-2024 Evaluation and management of inpatient Dr. Juan Reed MD -Transitional Care Unit Start: 10-20-2024 End: 10-29-2024 Evaluation and management of inpatient JDUIT HAHN MD [facility] Start: 10-20-2024 End: 10-24-2024 ambulatory RASHMI BALTES SALES AND MARKETING ANALYST-[employer]ENSIC [employer]IAL WORKER Facility:[facility] [place] Start: 10-20-2024 End: 10-24-2024 Outreach Lab KATI MALDONADO SALES AND MARKETING ANALYST-FORENSIC SOCIAL WORKER [facility] Start: 10-20-2024 End: 10-20-2024 Emergency department patient visit JAMIE TAYLOR MD [facility] Start: 10-08-2024 End: 10-12-2024 ambulatory RASHMI BALTES SALES AND MARKETING ANALYST-FORENSIC SOCIAL WORKER Facility:[facility] Start: 10-08-2024 End: 10-12-2024 Outreach Lab RASHMI BALKATIA SALES AND MARKETING ANALYST-FORENSIC SOCIAL WORKER [facility] Start: 10-05-2024 End: 10-05-2024 ambulatory RASHMI BALTES SALES AND MARKETING ANALYST-FORENSIC SOCIAL WORKER Facility:[facility] [place] [facility] Start: 10-05-2024 End: 10-05-2024 Patient encounter procedure RASHMI BALTES SALES AND MARKETING ANALYST-FORENSIC SOCIAL WORKER [facility] Start: 07-06-2024 End: 07-06-2024 ambulatory RASHMI BALTES SALES AND MARKETING ANALYST-FORENSIC SOCIAL WORKER Facility:[facility] [place] [facility] Start: 07-06-2024 End: 07-06-2024 Patient encounter procedure RASHMI BALTES SALES AND MARKETING ANALYST-FORENSIC SOCIAL WORKER [facility] Start: 05-18-2024 End: 05-18-2024 ambulatory RASHMI BALTES SALES AND MARKETING ANALYST-FORENSIC SOCIAL WORKER Facility:[facility] Start: 05-18-2024 End: 05-18-2024 Patient encounter procedure RASHMI BALTES SALES AND MARKETING ANALYST-FORENSIC SOCIAL WORKER [facility] Start: 04-27-2024 End: 04-27-2024 ambulatory RASHMI BALTES SALES AND MARKETING ANALYST-FORENSIC SOCIAL WORKER Facility:[facility] Start: 04-27-2024 End: 04-27-2024 Patient encounter procedure RASHMI ALBRET SALES AND MARKETING ANALYST-FORENSIC SOCIAL WORKER [facility] Start: 04-09-2024 End: 04-13-2024 ambulatory RASHMI BALTES SALES AND MARKETING ANALYST-FORENSIC SOCIAL WORKER Facility:[facility] Start: 04-09-2024 End: 04-13-2024 Outreach Lab RASHMI BALKATIA SALES AND MARKETING ANALYST-FORENSIC SOCIAL WORKER [facility] Start: 04-03-2024 End: 04-03-2024 ambulatory RASHMI BALKATIA SALES AND MARKETING ANALYST-FORENSIC SOCIAL WORKER Facility:[facility] Start: 04-03-2024 End: 04-03-2024 Patient encounter procedure RASHMI ALBERT SALES AND MARKETING ANALYST-FORENSIC SOCIAL WORKER [facility] Start: 02-20-2024 End: 02-20-2024 Emergency department patient visit NELIDA GROVE DO [facility] Start: 01-21-2024 End: 01-21-2024 ambulatory RASHMI ALBERT SALES AND MARKETING ANALYST-FORENSIC SOCIAL WORKER Facility:[facility] Start: 01-21-2024 End: 01-21-2024 Patient encounter procedure RASHMI BALKATIA SALES AND MARKETING ANALYST-FORENSIC SOCIAL WORKER [facility] Start: 01-10-2024 End: 01-10-2024 ambulatory RASHMI ALBERT SALES AND MARKETING ANALYST-FORENSIC SOCIAL WORKER Facility:[facility] Start: 01-10-2024 End: 01-10-2024 Patient encounter procedure RASHMI BALKATIA SALES AND MARKETING ANALYST-FORENSIC SOCIAL WORKER [facility] Start: 10-09-2023 End: 10-13-2023 ambulatory RASHMI BALKATIA SALES AND MARKETING ANALYST-FORENSIC SOCIAL WORKER Facility:[facility] Start: 10-09-2023 End: 10-13-2023 Outreach Lab RASHMI BALKATIA SALES AND MARKETING ANALYST-FORENSIC SOCIAL WORKER [facility] Start: 08-30-2023 End: 08-30-2023 ambulatory YASMANI COULTER DO Facility:[facility] Start: 08-30-2023 End: 08-30-2023 Patient encounter procedure YASMANI COULTER DO [facility] Start: 04-19-2023 End: 04-23-2023 ambulatory RASHMI PRCIE SALES AND MARKETING ANALYST-FORENSIC SOCIAL WORKER Facility:[facility] Start: 09-04-2022 End: 09-04-2022 Patient encounter procedure RASHMI PRICE SALES AND MARKETING ANALYST-FORENSIC SOCIAL WORKER [facility] Start: 07-17-2022 End: 07-21-2022 Outreach Lab RASHMI PRICE SALES AND MARKETING ANALYST-FORENSIC SOCIAL WORKER [facility] Start: 04-20-2022 End: 04-20-2022 Patient encounter procedure RASHMI PRICE SALES AND MARKETING ANALYST-FORENSIC SOCIAL WORKER [facility] Start: 02-13-2022 End: 02-13-2022 Patient encounter procedure RASHMI PRICE SALES AND MARKETING ANALYST-FORENSIC SOCIAL WORKER [facility] Start: 04-12-2021 End: 04-12-2021 Patient encounter procedure RASHMI PRICE SALES AND MARKETING ANALYST-FORENSIC SOCIAL WORKER [facility] Start: 04-08-2021 End: 04-08-[address] KENNY DIETZ DO [facility] Procedures Date Procedure Procedure Detail Performing Clinician Start: 11-13-2024 Osmolality measureme nt, serum Rashmi Price PAVING FOREMAN-C Work Phone: Start: 11-13-2024 Estimated creatinine clearance Rashmi Price [employer]ING FOREMAN-C Work Phone: Start: 11-11-2024 Urnls dip stick/tabl et reagent auto microscopy Rashmi Baltes P[employer]ING FOREMAN-C Work Phone: Start: 11-04-2024 X-ray of chest, PA a nd lateral views Rashmi Price PAVING FOREMAN-C Work Phone: Start: 11-03-2024 Urine culture Rashmi etienne [employer]ING FOREMAN-C Work Phone: Start: 10-31-2024 Vitamin D, 25-hydrox y measurement Rashmi Price [employer]AVING FOREMAN-C Work Phone: Comment on above: Vitamin D StatusDefi ciency: <20 ng/mL (50nmol/L)Insufficiency: 20-30 ng/mL (50-75 nmol/L)Sufficiency: 30-100 ng/mL (75-250 nmol/L)Toxicity: >100 ng/mL (>250 nmol/L) Start: 07-04-2020 No retinopathy of le ft eye due to diabetes mellitus DR KENNY DIETZ DO Comment on above: [facility] Start: 07-04-2020 No retinopathy of ri ght eye due to diabetes mellitus DR KENNY DIETZ DO Comment on above: [facility] Start: 03-07-2020 Ophthalmic examinati on and evaluation DR KENNY DIETZ DO Comment on above: shu mild, non prolif erative retinopathy; repeat [address] KENNY Doll DO Repair of musculoten dinous cuff of shoulder DR KENNY DIETZ DO Plan of Treatment Date Care Activity Detail Author Start: 11-13-2024 Patient discharge [facility] Start: 11-11-2024 [facility] Start: 11-11-2024 Referral to service [place] Start: 11-11-2024 Urine culture Urine Culture [facility] Start: 11-04-2024 Removal of urinary catheter [facility] Start: 10-30-2024 Speech therapy management [facility] Start: 10-30-2024 Development of care plan [facility] Start: 10-30-2024 Speech therapy assessment [facility] Start: 10-30-2024 Developing a treatment plan [facility] Start: 10-29-2024 Contact precautions [place] Start: 10-29-2024 Admission procedure [place] Start: 10-29-2024 Introduction of urin skyler catheter [facility] Start: 10-29-2024 Measuring intake and output [facility] Start: 10-29-2024 End: 10-30-2024 Patient referral to dietitian [facility] Start: 10-29-2024 Referral to occupati onal therapist [facility] Start: 10-29-2024 Referral to service [place] Start: 10-29-2024 Vital signs measurements [facility] Start: 10-29-2024 End: 10-29-2024 [facility] Start: 10-29-2024 Contact precautions [place] Start: 10-29-2024 Following clinical p athway protocol [facility] Osmolality of Urine [facility] Sodium [Moles/volume ] in Urine [facility] Immunizations Immunization Date Immunization Notes Care Provider Calixto daniel 10-06-2024 Covid (Spikevax) Rashmi Price PAVING FOREMAN-C Work Phone: [facility] 10-06-2024 SARS-CoV-2 (COVID-19 ) [id number] RASHMI PRICE SALES AND MARKETING ANALYST-FORENSIC SOCIAL WORKER [facility] 10-06-2024 SARS-CoV-2 (COVID-19 ) [id number] RASHMI PRICE SALES AND MARKETING ANALYST-FORENSIC SOCIAL WORKER [facility] Comment on above: Result Comment: [facility] 01-09-2024 Covid (Spikevax) Rashmi Price PAVING FOREMAN-C Work Phone: [facility] 01-09-2024 influenza virus vacc ine, unspecified formulation RASHMI PRICE SALES AND MARKETING ANALYST-FORENSIC SOCIAL WORKER [facility] 01-09-2024 influenza, high dose seasonal, preservative-free Rashmi Price PAVING FOREMAN-C Work Phone: [facility] 01-09-2024 SARS-CoV-2 (COVID-19 ) [id number] RASHMI CHAPMANKATIA SALES AND MARKETING ANALYST-FORENSIC SOCIAL WORKER [facility] 01-31-2023 Covid (Spikevax) Rashmi Chapmankatia PAVING FOREMAN-C Work Phone: [facility] 01-31-2023 influenza virus vacc ine, unspecified formulation YASMANI COULTER DO [facility] 01-31-2023 SARS-CoV-2 (COVID-19 ) [id number] YASMANI COULTER DO [facility] 01-30-2023 RSV Adult BiValent (Abrysvo) Rashmi Price PAVING FOREMAN-C Work Phone: [facility] 01-30-2023 RSV vaccine, preF A- preF B, recombinant YASMANI COULTER DO [facility] 01-18-2023 Pneumococcal conjuga te PCV20, polysaccharide [id number] conjugate, adjuvant, PF; Translations: [Prevnar 20] YASMANI COULTER DO [facility] 09-10-2022 Covid Pfizer Bivalen t Booster Rashmi Chapmankatia PAVING FOREMAN-C Work Phone: [facility] 01-15-2022 Covid Pfizer Bivalen t Booster Rashmi Albert PAVING FOREMAN-C Work Phone: [facility] 01-03-2022 influenza virus vacc ine, unspecified formulation RASHMI PRICE SALES AND MARKETING ANALYST-FORENSIC SOCIAL WORKER [facility] 08-03-2021 SARS-CoV-2 (COVID-19 ) mRNA-1273 vaccine RASHMI PRICE SALES AND MARKETING ANALYST-FORENSIC SOCIAL WORKER [facility] 08-03-2021 tetanus toxoid, redu darline diphtheria toxoid, and acellular pertussis vaccine, adsorbed RASHMI PRICE SALES AND MARKETING ANALYST-FORENSIC SOCIAL WORKER [facility] 02-24-2021 SARS-CoV-2 (COVID-19 ) mRNA-1273 vaccine RASHMI PRICE SALES AND MARKETING ANALYST-FORENSIC SOCIAL WORKER [facility] 02-08-2021 influenza virus vacc ine, unspecified formulation RASHMI PRICE SALES AND MARKETING ANALYST-[facility] 06-22-2020 COVID-19, mRNA, LNP- S, PF, 100 mcg/ 0.5 mL dose; Translations: [Moderna COVID-19 Vaccine] DR KENNY DIETZ DO [facility] 05-25-2020 SARS-CoV-2 (COVID-19 ) mRNA-[address] KENNY DIETZ DO [facility] 01-06-2020 influenza, injectabl e, quadrivalent, preservative free; Translations: [Fluarix PF Quadrivalent ] DR KENNY DIETZ DO [facility] 05-16-[address] KENNY DIETZ DO [facility] 03-02-2019 influenza, injectabl e, quadrivalent, preservative free; Translations: [Fluarix PF Quadrivalent ] DR KENNY DIETZ DO [facility] 02-04-[address] KENNY DIETZ DO [facility] 01-28-2018 influenza virus vacc ine, unspecified formulation DR KENNY DIETZ DO [facility] 01-22-2017 influenza virus vacc ine, unspecified formulation DR KENNY DIETZ DO [facility] 01-12-2016 influenza virus vacc ine, unspecified formulation DR KENNY DIETZ DO [facility] 01-18-2015 influenza virus vacc ine, unspecified formulation DR KENNY DIETZ DO [facility] 09-16-2014 pneumococcal conjuga te vaccine, [address] KENNY DIETZ DO [facility] 01-04-2014 influenza virus vacc ine, unspecified formulation DR KENNY DIETZ DO [facility] 08-25-2012 tetanus toxoid, redu darline diphtheria toxoid, and acellular pertussis vaccine, adsorbed DR KENNY DIETZ DO [facility] 12-10-[address] KENNY DIETZ DO [facility] 02-13-2006 pneumococcal polysaccharide vaccine, [address] KENNY DIETZ DO [facility] Payers Date Payer Category Payer Self-pay 2024 Medicare [id number] 2024 Medicare [id number] 2023 Private Health Insurance [id number] 2018 Private Health Insurance [id number] 1940 Unknown [id number] 2.16.8 [id number] 1938 Unknown [id number] 2.16.8 40.1.779948.3.579.2.62 1938 Unknown [id number] 2.16.8 40.1.000530.3.579.2.62 1938 Unknown [id number] 2.16. 840.1.792722.3.579.2. 1938 Unknown [id number] 2.16. 840.1.854898.3.579.2. 1938 Unknown [id number] 2.16. 840.1.549157.3.579.2.62 1938 Unknown [id number] 2.16.8 40.1.536019.3.579.2. 1938 Unknown [id number] 2.16.8 40.1.356999.3.579.2.62 1938 Unknown [id number] 2.16.8 40.1.640025.3.579.2.62 1938 Unknown [id number] 2.16.8 40.1.922999.3.579.2.62 1938 Unknown [id number] 2.16.8 40.1.526226.3.579.2.62 1938 Unknown [id number] 2.16.8 40.1.778853.3.579.2.62 1938 Unknown [id number] 2.16.8 40.1.299080.3.579.2.62 1938 Unknown [id number] 2.16.8 40.1.885409.3.579.2.627 1938 Unknown [id number] 2.16.8 40.1.231316.3.579.2.627 1938 Unknown [id number] 2.16. 840.1.117989.3.579.2.627 Medicare [id number] Unknown [id number] Unknown [id number] 2.16.8 40.1.799277.3.579.2.462 Unknown [id number] 2.16.8 40.1.848613.3.579.2.462 Social History Date Type Detail Facility Start: 12-09-2018 End: 10-29-2024 Never smoked tobacco (finding) [facility] Comment on above: no smoke exposure Start: 1940 Sex Assigned At Male A [facility] Sexual Orientation [facility] Start: 10-29-2018 Sex Male (finding) [facility] Start: 03-11-2019 Tobacco Use Tobacco Use [facility] Medical Equipment Procedure Code Equipment Code Equipment Origin al Text Equipment Identifier Dates Blood Glucose Te st Strips Start: 05-17-2020 [facility] Start: 03-02-[address]ps Start: 05-17-2020 [facility] Start: 03-02-2019 See Instructions , EA=BOX of 100 DM E11.9 one touch ultra blue test strips - patient checks once a day, # 3 EA, 3 Refill(s), [facility]acy: [facility] Type 2 diabetes [...] day, # 3 EA, 3 Refill(s), [facility]: [facility] [address] Type 2 diabetes mellitus, 172.7, cm, [...] day, # 3 EA, 3 Refill(s), [facility]acy: [facility], Type 2 diabetes mellitus, 172.7, cm, 07/27/21 [...] day, # 1 EA, 3 Refill(s), Pharmacy: [id number], Type 2 diabetes mellitus, 172.7, cm, 09/04/22 [...] day, # 1 EA, 3 Refill(s), Pharmacy: [facility] #[id number], Type 2 diabetes mellitus, 172.7, cm, 09/04/22 [...] day, # 1 EA, 3 Refill(s), Pharmacy: [facility]/pharmacy #4605, Type 2 diabetes mellitus, 171, [...] day, # 1 EA, 3 Refill(s), Pharmacy: [facility]/pharmacy #4605, Type 2 diabetes mellitus, 171, [...] day, # 1 EA, 3 Refill(s), Pharmacy: [facility]/pharmacy #4605, Type 2 diabetes mellitus, 171, [...] day, # 1 EA, 3 Refill(s), Pharmacy: [facility]/pharmacy #4605, Type 2 diabetes mellitus, 171, [...] day, # 1 EA, 3 Refill(s), Pharmacy: [facility]/pharmacy #4605, Type 2 diabetes mellitus, 171, [...] day, # 1 EA, 3 Refill(s), Pharmacy: [facility]/pharmacy #4605, Type 2 diabetes mellitus, 171, [...] day, # 1 EA, 3 Refill(s), Pharmacy: [facility]/pharmacy #4605, Type 2 diabetes mellitus, 171, [...] day, # 1 EA, 3 Refill(s), Pharmacy: [facility]/pharmacy #4605, Type 2 diabetes mellitus, 171, [...] day, # 1 EA, 3 Refill(s), Pharmacy: [facility]/pharmacy #4605, Type 2 diabetes mellitus, 171, [...] day, # 1 EA, 3 Refill(s), Pharmacy: [facility]/pharmacy #4605, Type 2 diabetes mellitus, 171, [...] day, # 1 EA, 3 Refill(s), Pharmacy: [facility]/pharmacy #4605, Type 2 diabetes mellitus, 171, cm, 10/09/23 8:54:00 EDT, Height, 71.9, kg, 10/09/23 8:54:00 EDT, Dosing Weight Start: 10-09-2023 See Instructions , One touch delcarlo marshall - manueln checks once a day, # 1 EA, 5 Refill(s), Type 2 diabetes mellitus Start: 03-02-2019 Goals Date Patient Goal Desired Activity /State Functional Status Date Assessment Result Facility 11-13-2024 Functional status Chair [facility] Work Phone: 11-12-2024 Functional status Standard Walker [facility] Work Phone: 02-20-2024 Functional Status Standard Safet y ID band on, Call device within reach, Bed in low position, Wheels locked, Upper/Half-Length side-rails up, Bedside Cart Locked, Safety level maintained [facility] Mental Status Date Assessment Result Facility 11-13-2024 Cognitive function Voice/Name [facility] Work Phone: 11-12-2024 Cognitive function Appropriate;Yadira acuna [facility] Work Phone: 02-20-2024 Mental Status Orientation Oriented x 4 [facility] Clinical Notes 02-20-2024 to 11-11-2024 Note Date & Type Note Facility 11-11-2024 Discharge summary Note Date/Time November 11, 2024 3:49p m [facility] Medical Records Department [address] [place] [address] Discharge Summary 11/11/24 1542 MR#: [id number] Acct: [id number] Name: TIM ADAMSON Rep #:[id number] : 1940 83 From: Juan Reed MD PCP: VALENTIN Marrufo Status:ADM IN Location: [facility] TCU13-1 Providers Date of Admission: 10/29/24 Primary [...] __x__ GRD contraindicated. Reason contraindicated: stable chronic ocean transportation intermediary use. The following psychotropic medication was present [...] trials, follow up with Urology. Discharge to [facility] 11/13/2024, [facility] PT/OT/ST, FWW. FWW: Patient is unsafe to [...] Discharge instructions: No Additional Instructions: Discharge to [facility] 11/13/2024, [facility] PT/OT/ST, FWW. FWW: Patient is unsafe to [...] Instructions Additional Instructions / Restrictions: Discharge to [facility] 11/13/2024, [facility] PT/OT/ST, FWW. FWW: Patient is unsafe to [...] VALENTIN Price; Dr. Juan Reed MD~ Signed [facility] Work Phone: 1(795) 217-629107-09-2025 Discharge summary [facility] Medical Records Department [address] [place] [address] Discharge Summary 11/11/24 1542 MR#: [id number] Acct: [id number] Name: TIM ADAMSON Rep #:[id number] : 1940 83 From: Juan Reed MD PCP: VALENTIN Marrufo Status:ADM IN Location: [facility] TCU13-1 Providers Date of Admission: 10/29/24 Primary [...] __x__ GRD contraindicated. Reason contraindicated: stable chronic ocean transportation intermediary use. The following psychotropic medication was present [...] trials, follow up with Urology. Discharge to [facility] 11/13/2024, [facility] PT/OT/ST, FWW. FWW: Patient is unsafe to [...] Discharge instructions: No Additional Instructions: Discharge to [facility] 11/13/2024, [facility] PT/OT/ST, FWW. FWW: Patient is unsafe to [...] Reed Chi Primary Care Provider: Rashmi Price PAVING FOREMAN Instructions Additional Instructions / Restrictions: Discharge to [facility] 11/13/2024, [facility] PT/OT/ST, FWW. FWW: Patient is unsafe to [...] DAILY Referrals / Follow Up: Rashmi Price NP PAVING FOREMANIngridC [Primary Care Provider] - Disposition Disposition (needs filled in before D/C Order can be placed): Assisted Living 11/11/24 1549 Cosigner Signature (if applicable): CC: VALENTIN Price; Dr. Juan Reed MD~ Signed [facility]07-09-2025 [facility] Medical Records Department [address] [place] [address] Discharge Summary 11/11/24 1542 MR#: [id number] Acct: [id number] Name: TIM ADAMSON Rep #: [id number] : 1940 83 From: Juan Reed MD PCP: VALENTIN Marrufo Status:ADM IN Location: [facility] TCU13-1 Providers Date of Admission: 10/29/24 Primary [...] __x__ GRD contraindicated. Reason contraindicated: stable chronic ocean transportation intermediary use. The following psychotropic medication was present [...] (eye) BID eye he (more content not included)...[facility]07-02-2025 Radiology Diagnostic study note [facility] Imaging Services [address] [place] [address] Chest PA and Lateral MR#: [id number] Acct: [id number] Name: TIM ADAMSON Rep #: [id number] : 1940 M 83 From: Mateo Isaac MD PCP: Rashmi Baltes, PAVING FOREMAN-C Status: ADM IN Study:Chest PA and Lateral Date of Exam: 11/04/24 Exam# [id number] Ordering Dr: Juan Reed MD PROCEDURE: CHEST PA AND LATERAL 11/04/2024 REASON FOR EXAM: COUGH. TECHNIQUE: CHEST PA AND LATERAL COMPARISON: None. FINDINGS: The heart is enlarged. Left basilar linear opacity favoring scar or atelectasis. Developing infiltrate is possible. Trace bilateral pleural effusions. No pneumothorax. RAD/Chest PA and Lateral IMPRESSION: As above. Reading Location: [id number] CC: PAVING FOREMAN-C Rashmi Price; Dr. Juan Reed MD ~ Behavioral Health Associate: Signed [facility]07-02-2025 History and physical note Author Juan Derek [facility] Note Date/Time November 04, 2024 7:31a m [facility] Medical Records Department [address] [place] [address] History & Physical Exam 10/29/24 190 MR#: [id number] Acct: [id number] Name: TIM ADAMSON Rep #:[id number] : 1940 83 From: Juan Reed MD PCP: VALENTIN Marrufo Status:ADM IN Location: [facility] TCU13 HPI - General General Date of Admission: 10/29/24 Date of Service: 10/29/24 Chief Complaint: Here for rehabilitation. HPI Narrative TIM ADAMSON, is a 83 Male who presents with followin10/20/2024 Admit to [place]. Recent fall with rib fracture. Acute delirium [...] weeks bladder rest for urinary retention. 10/27/2024 FLOATER OPERATOR called for increasing oxygen requirement, Lasix 40mg [...] strengthening, prior to discharge home with . [facility] Medical History (Updated 10/29/24 @ 19:33 [...] mg tablet 30 mg PO DAILY diabetes /10/28 Unknown History sertraline 25 mg tablet 25 [...] __x__ GRD contraindicated. Reason contraindicated: stable chronic usp use. The following psychotropic medication was present [...] 7 days, urine culturepending, stop Lovenox. 11/04/24 0731<Electronically signed by Juan Reed MD> Cosigner Signature (if applicable): cc: VALENTIN Price; Dr. Juan Reed MD ~* Signed [facility] Work Phone: 1(852) 544-305407-02-2025 History and physical note [facility] Medical Records Department [address] [place] [address] History & Physical Exam 10/29/241908 MR#: [id number] Acct: [id number] Name: TIM ADAMSON Rep #:[id number] : 1940 83 From: Juan Reed MD PCP: VALENTIN Marrufo Status:ADM IN Location: TCU TCU13-1 HPI - General General Date of Admission: 10/29/24 Date of Service: 10/29/24 Chief Complaint: Here for rehabilitation. HPI Narrative TIM ADAMSON, is a 83 Male who presents with followin10/20/2024 Admit to [place]. Recent fall with rib fracture. Acute delirium [...] weeks bladder rest for urinary retention. 10/27/2024 FLOATER OPERATOR called for increasing oxygen requirement, Lasix 40mg [...] strengthening, prior to discharge home with . [facility] Medical History (Updated 10/29/24 @ 19:33 [...] mg tablet 30 mg PO DAILY diabetes 06/2 10/28 Unknown History sertraline 25 mg tablet [...] __x__ GRD contraindicated. Reason contraindicated: stable chronic usp use. The following psychotropic medication was present [...] 7 days, urine culturepending, stop Lovenox. 11/04/24 0731 Cosigner Signature (if applicable): cc: VALENTIN Price; Dr. Juan Reed MD ~* Signed [facility]06-27-2025 Progress note Author Nimo Fernandez [facility] Note Date/Time October 30, 2024 4:05 pm [facility] Medical Records Department [address] [facility] [place] [address] Progress Note - Pharmacy 10/30/24 1533 MR#: [id number] Acct: [id number] Name: TIM ADAMSON Rep #:[id number] : 1940 83 From: Nimo Fernandez PCP: VALENTIN Marrufo Status:ADM IN Location: TCU [facility] Documented by User: Nimo Fernandez 10/30/24 16:01 [...] 10/30/24 10:00 10/30/24 08:12 Fluticasone 0.05% 1 [facility] Nasal.Sry NASAL 1 spray DAILY RAYNA Administration [...] 1601 <Electronically signed by Nimo Fernandez> Nimo Fernandez Cosigner Signature (if applicable): 10/30/24 1605 <Electronically signed by Juan Reed MD> CC: ~ Signed [facility] Work Phone: 1(219) 694-469906-27-2025 Progress note [facility] Medical Records Department [address] [place] [address] Progress Note - Pharmacy 10/30/24 1533 MR#: [id number] Acct: [id number] Name: TIM ADAMSON Rep #:[id number] : 1940 83 From: Nimo Fernandez PCP: TODD MarrufoC Status:ADM IN [place] [address] Documented by User: Nimo Fernandez 10/30/24 16:01 [...] 10/30/24 10:00 10/30/24 08:12 Fluticasone 0.05% 1 [facility] Nasal.Sry NASAL 1 spray DAILY RAYNA Administration [...] (if applicable): 10/30/24 1605 CC: ~ Signed [facility]06-26-2025 [facility] Medical Records Department [address] [place] [address] History Physical Exam 10/29/24 190 MR#: [id number] Acct: [id number] Name: TIM ADAMSON Rep #: [id number] : 1940 83 From: Juan Reed MD PCP: VALENTIN Marrufo Status:ADM IN Location: TCU U13-1 HPI - General General Date of Admission: 10/29/24 Date of Service: 10/29/24 Chief Complaint: Here for rehabilitation. HPI Narrative TIM ADAMSON, is a 83 Male who presents with followin10/20/2024 Admit to [place]. Recent fall with rib fracture. Acute delirium [...] weeks bladder rest for urinary retention. 10/27/2024 FLOATER OPERATOR called for increasing oxygen requirement, Lasix 40mg [...] strengthening, prior to discharge home with . [facility] Medical History (Updated 10/29/24 @ 19:33 [...] or nasal discharge C (more content not included)...[facility]06-26-2025 Evaluation note* Diagnosis Onset Date Resolution Status [...] 2 025 3:48pm Iron deficiency anemia acute Ju 2024 3:48pm Pneumonia acute October 29 3:48pm Type 2 diabetes mellitus wit h hyperglycemia acute October 29, 2024 3:48pm Urinary retention acute October 292024 3:48pm Vascular dementia acute October 292024 3:48pm [facility] Work Phone: 1(173) 993-903106-26-2025 Discharge summary Date of Service 10/29/2024 Discharge Diagnosis 1. Cardiac arrest 2. Diastolic dysfunction with heart failure 3. Acute hypoxic respiratory failure 4. Acute urinary retention 5. Hyponatremia 6. Altered mental state 7. Type 2 diabetes mellitus 8. Anxiety 9. Hyperlipidemia 10. HTN Hospital Course This is a split/shared visit with Dr. Prado. Pt is an 83-year-old male with history of essentialhypertension, kqa-cdmdtym-sygirpkgp type 2 diabetes mellitus, dementia, and hyperlipidemia [...] PT/OT [facility] medically [facility] for [facility], family in [...] HR: 86 (Monitored) RR: 22 BP: 108/78 SpO2: 93% Weight Dosing Weight: 70.5 kg (10/20/24) General: [...] Up with RASHMI PRICE When:Within 1-2 days Where:[address] [place] [address]- [phone] Additional Information: Please call the office to [...] by PHUONG NEAL on 10/29/2024 02:01 PM [id number] Discharge instructions Patient Education 10/29/2024 14:20:21 [...] breathing. Follow these instructions at home: Take qtat-ajt-lqwkknx and prescription medicines only as told by [...] 04/27/2014 Document Revised: 04/04/2018 Document Reviewed: 11/07/2016 [employer] Patient Education 2020 [place]. Follow Up Care 10/20/2024 13:54:14 With:Discharge to [facility] TCU, skilled, ; ambulance transport arranged for 3pm through [employer], Ext. [phone] Address:Unknown When:1-2 days With:[facility] Address: When:Within 4 Week(s) With:SKYLAR DONG MD, [facility] Address: [address] [place] [address] [phone] When:Within 2 Week(s) only if needed With:BELKYS ALCANTAR MD Address: [address] [place] [address] [address] [facility] [place] [facility] [place] [address]- [phone] When:Within 4 Week(s) With:RASHMI PRICE Address: [address] [place] [address]- [phone] When:1-2 days Comments:Please call the office to schedule a hospital follow up appointment. [facility] 06-26-2025 Note Discharge Instructions Thank you for allowing [facility] to assist you with your healthcare needs. [...] OV 01/06/2025 10:30 AM EDT RASHMI PRICE [address] [phone] Confirmed Follow Up Appointments Follow Up with Discharge to [facility] TCU, skilled, ; ambulance transport arranged for 3pm through [employer], Ext. [phone] When:Within 1-2 days [facility] When:In 4 weeks Follow Up with SKYLAR DONG MD, [facility] When:In 2 weeks , only if needed Where:[address] [place] [phone] Follow Up with BELKYS ALCANTAR MD When:In 4 weeks Where:[address] [facility] [place] [facility] [place] [phone] Follow Up with RASHMI PRICE APRN-FORENSIC SOCIAL WORKER When:Within 1-2 days Where:[address] [place] [address]- [phone] Additional Information: Please call the office to [...] breathing. Follow these instructions at home: Take usnl-jkq-dzirlry and prescription medicines only as told by [...] 04/27/2014 Document Revised: 04/04/2018 Document Reviewed: 11/07/2016 [employer] Patient Education 2020 [employer] Additional Information VACCINATE! IT SAVES LIVES! Members of the community who have not yet received the COVID-19 vaccine and would like to receive it can visit one of [facility] vaccine clinics. There are many vaccine clinic locations within the [facility]. For locations and available times, please visit https://[email or web address].[place].gov/. It is important to note that some COVID mobile vaccine clinics are held outdoors and may be canceled in rainy or stormy conditions. To learn more about pediatric vaccinations (ages 5-11), we invite you to visit the [employer] [facility] webpage. https://www.akClear River [employer]ros.org/pages/2868-Doyod-Pqwqqnwkzih-Uvqjlcnoim-Jxqdc-Zrs stions.htmlTo learn more about the COVID-19 vaccine, we invite you to visit the CDC website for a list of frequently asked questions.https://www.cdc.gov/coronavirus/2019-ncov/vaccines/faq.html [facility] Patient Portal Access Instructions: Stay connected with your healthcare team and access your personal medical information anytime with the [facility] Patient Portal. Please follow the directions below to create your [facility] account: 1.Access the email account you provided upon registration to the hospital/physician office.2.Look for an invitation email from [facility].3.Open the email and access the invitation link: AcceptInvitation to [facility].4.Fill in the required small to create your account. To access your account, visit Telemedicine Clinic/[facility]. Click the blue button labeled "Access Patient Portal" and then log in with the username and password that you created in the steps above. You will be able to view your test results, lab results, a summary of your visits, upcoming appointments and more. There is also a convenient messaging option where you can send secure messages to your [employer]. In addition, you will have the ability to download any documents or summaries to your computer and/or send the information securely to a physician. Remember that your healthcare information is confidential, so carefully consider who you will allowto register on the [facility] Patient Portal for access to your information. You can also access the [facility] Patient Portal on the [facility] darrel. Simply click on "Patient Portal" and then log into your account. If you would like to receive a full copy of your medical records, please contact the [facility] Medical Records Department by calling [phone], Saturday through Saturday between 8 a.m. and [...] Call your local pharmacy or go to [email or web address] to find one close to you.3.Make use of household items: Use cat litter or old coffee grounds to dispose medications if other options arenot available. Mix your drugs with these household products, seal them in an airtight container andthrow it into the garbage. Call [facility]: [phone] to be sure your drugs can be [...] aware that I should contact my doctor. 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 Signature: Date/Time: Relationship to Patient: Witness Name/Signature: Date/Time: Shannan [id number] Note Discharge Instructions Thank you for allowing [facility] to assist you with your healthcare needs. [...] OV 01/06/2025 10:30 AM EDT RASHMI PRICE [address] [address] Confirmed Follow Up Appointments Follow Up with Discharge to [facility], skilled, ; ambulance transport arranged for 3pm through [employer], Ext. [phone] When:Within 1-2 days Follow Up with [facility], [facility]AR[facility] When:In 4 weeks Follow Up with SKYLAR DONG MD, [facility] When:In 2 weeks , only if needed Where:[address] [facility] [facility] [address] [place] [address]- [phone] Follow Up with BELKYS ALCANTAR MD When:In 4 weeks Where:[address] [place] [address] [address] [facility] [place] [address] [phone] Follow Up with RASHMI PRICE When:Within 1-2 days Where:[address], [place] [address]- [phone] Additional Information: Please call the office to [...] to receive it can visit one of [facility] vaccine clinics. There are many vaccine clinic locations within the [facility]. For locations and available times, please visit https://[email or web address].[place].gov/. It is important to note that some COVID mobile vaccine clinics are held outdoors and may be canceled in rainy or stormy conditions. To learn more about pediatric vaccinations (ages 5-11), we invite you to visit the [employer] webpage. https://www.[employer].org/pages/6393-Wjqdw-Vtwftarqxak-Kvpgujaqky-Riiod-Jhz stions.htmlTo learn more about the COVID-19 vaccine, we invite you to visit the CDC website for a list of frequently asked questions.https://www.cdc.gov/coronavirus/2019-ncov/vaccines/faq.html [employer] [facility] Patient Portal Access Instructions: Stay connected with your healthcare team and access your personal medical information anytime with the [employer] [facility] Patient Portal. Please follow the directions below to create your [employer] account: 1.Access the email account you provided upon registration to the hospital/physician office.2.Look for an invitation email from [facility].3.Open the email and access the invitation link: AcceptInvitation to [facility].4.Fill in the required small to create your account. To access your account, visit Telemedicine Clinic/[employer]. Click the blue button labeled "Access Patient [...] who you will allowto register on the [facility] Patient Portal for access to your information. You can also access the [facility] Patient Portal on the [facility] darrel. Simply click on "Patient Portal" and then log into your account. If you would like to receive a full copy of your medical records, please contact the [facility] Medical Records Department by calling [phone], Saturday through Saturday between 8 a.m. and [...] Call your local pharmacy or go to [email or web address] to find one close to you.3.Make use of household items: Use cat litter or old coffee grounds to dispose medications if other options arenot available. Mix your drugs with these household products, seal them in an airtight container andthrow it into the garbage. Call [facility]: [phone] to be sure your drugs can be [...] been reviewed and explained to me and I,KRISTOPHER TIM Enoc understand my current condition and have read and understand these discharge instructions. I have received a written copy of the plan/instructions. If I have questions, I am aware that I should contact my doctor. 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 Signature: Date/Time: Relationship to Patient: Witness Name/Signature: Date/Time: [facility]jav[facility]j56-[facility]-5510 Discharge summary Date of Service 10/29/2024 Discharge Diagnosis 1. Cardiac arrest 2. Diastolic dysfunction with heart failure 3. Acute hypoxic respiratory failure 4. Acute urinary retention 5. Hyponatremia 6. Altered mental state 7. Type 2 diabetes mellitus 8. Anxiety 9. Hyperlipidemia 10. HTN Hospital Course This is a split/shared visit with Dr. Prado. Pt is an 83-year-old male with history of essentialhypertension, veb-seeyosm-tiuhubkym type 2 diabetes mellitus, dementia, and hyperlipidemia [...] PT/OT recommending SNF at discharge. Accepted at [facility]. Pt medically optimized for discharge, family [...] with RASHMI PRICE When:Within 1-2 days Where:[address] [place] [address]- [phone] Additional Information: Please call the office to [...] by PHUONG NEAL on 10/29/2024 02:01 PM [facility]Yzbmnujw81-74-8050 Cardiology Progress note Subjective Patient continued to [...] tab(s), Oral, qDay fluticasone nasal 0.05 mg/inh [place] 50 mcg 1 spray(s), Nasal, qDay guaifenesin [...] BELKYS ALCANTAR MD on 10/28/2024 08:29 PM [facility] HospitalPivhbqcu69-83-4095 Note Date of Service 10/28/2024 Chief Complaint Hypoxia Subjective Pt is an 83-year-old male with history of essential hypertension, vis-grougdi-ixywsmkfp type 2 diabetes mellitus, dementia, and hyperlipidemia [...] tab(s), Oral, qDay fluticasone nasal 0.05 mg/inh [place] 50 mcg 1 spray(s), Nasal, qDay guaifenesin [...] by PHUONG NEAL on 10/28/2024 12:17 PM [facility] HospitalKjfrqtpj63-61-5577 Note* Exam Date Time Procedure Performing Provider Status 10/28/24 12:49 PM XR Chest 1 View MCKENZIE SOSA PAREDES; Auth (Verified) [id number] ORIGINAL EXAMINATION: ONE XRAY VIEW OF THE [...] 10/28/2024 4:31:31 PM Ordering Provider: ROSI PRADO [facility]Dedudrhb06-01-0805 Note Date of Service 10/28/2024 Chief Complaint Hypoxia Subjective Pt is an 83-year-old male with history of essential hypertension, jnj-oeopxrc-dpvgrbydq type 2 diabetes mellitus, dementia, and hyperlipidemia [...] tab(s), Oral, qDay fluticasone nasal 0.05 mg/inh [place] 50 mcg 1 spray(s), Nasal, qDay guaifenesin [...] by PHUONG NEAL on 10/28/2024 12:17 PM [facility] HospitalWtiqnilq79-91-3532 Note Date of Service 10/27/2024 Chief Complaint Shortness of breath, confusion Subjective 83-year-old male with history of essential hypertension, yux-ijlzlvi-babxjozpq type 2 diabetes mellitus, dementia, hyperlipidemia presented [...] tab(s), Oral, qDay fluticasone nasal 0.05 mg/inh [place] 50 mcg 1 spray(s), Nasal, qDay guaifenesin [...] by DEIDRA RODRIGUEZ on 10/27/2024 12:03 PM [facility] HospitalKhtwgxis16-96-5126 Note Date of Service 10/27/2024 Chief Complaint Shortness of breath, confusion Subjective 83-year-old male with history of essential hypertension, cdf-ckrrhhe-jevejcnae type 2 diabetes mellitus, dementia, hyperlipidemia presented [...] tab(s), Oral, qDay fluticasone nasal 0.05 mg/inh [place] 50 mcg 1 spray(s), Nasal, qDay guaifenesin [...] have MRI brain and was seen by neurology,MRI was unremarkable. Type 2 diabetes, Continue sliding [...] by DEIDRA RODRIGUEZ on 10/27/2024 12:03 PM [facility] HospitalXamlokfk88-15-7569 Cardiology Progress note Date of Service 10/27/2024 [...] sounds bilaterally, crackles in bilateral bases, no contract accountant muscle use, supplemental O2 in place Heart: [...] tab(s), Oral, qDay fluticasone nasal 0.05 mg/inh [place] 50 mcg 1 spray(s), Nasal, qDay heparin [...] PM Digitally Signed by BELKYS ALCANTAR MD [facility] HospitalBqqewshd72-04-1774 Note Date of Service 10/26/2024 Chief Complaint altered mental status Subjective 83-year-old male with history of essential hypertension, mir-owpnthx-zrkkbbqzm type 2 diabetes mellitus, dementia, hyperlipidemia presented [...] tab(s), Oral, qDay fluticasone nasal 0.05 mg/inh [place] 50 mcg 1 spray(s), Nasal, qDay heparin [...] by DEIDRA RODRIGUEZ on 10/26/2024 12:55 PM [facility] HospitalCqjaovle43-01-1021 Note* Exam Date Time Procedure Performing Provider Status 10/26/24 9:[address] Thorax w/ Contrast GIOVANI WARREN MD; Auth (Verified) [id number] ORIGINAL EXAMINATION: CT OF THE CHEST WITH [...] Sign Date: 10/27/2024 3:57:32 AM Ordering Provider: [facility]06-23-2025 Note Reason for Consultation Admission From: Home [...] Addis Puente RN on 10/26/2024 04:36 PM [facility] HospitalAmxowara78-69-7556 Note* Exam Date Time Procedure Performing Provider Status 10/26/24 4:05 PM Echocardiogram, Adult - CV ALDO ALCANTAR MD; Auth (Verified) [facility] HospitalOxolujgd43-47-6513 Cardiology Consult note Date of Service 10/25/2024 [...] Retired. Description: Gurdeep., 04/09/2024 Home/Environment self Primary Video Operator:., 12/09/2018 Nutrition/Health Type of diet: Regular. Appetite [...] (COVID-19) mRNA-1273 vaccine: 0 unknown unit (05/25/20) tetanus/diphtheria/pertussMUL.ORD!b28271: 0.5 unknown unit (08/03/21) tetanus/diphtheria/pertussMUL.ORD!v90199: 0 unknown unit (08/25/12) zoster vaccine, inactivated: 1 unknown unit (05/16/19) zoster vaccine, inactivated: 1 unknown unit (02/04/19) Digitally Signed by JOE CABRERA MD on 10/25/2024 10:46 AM [facility] HospitalHbeuajdc35-40-8316 Cardiology Progress note Date of Service 10/26/2024 Subjective Tmi is pleasantly confused today. Denies any cardiovascular [...] sounds bilaterally, crackles in bilateral bases, no contract accountant muscle use, supplemental O2 in place Heart: [...] tab(s), Oral, qDay fluticasone nasal 0.05 mg/inh [place] 50 mcg 1 spray(s), Nasal, qDay heparin [...] PM Digitally Signed by BELKYS ALCANTAR MD [facility] HospitalReknhoxr20-55-8675 Note Date of Service 10/26/2024 Chief Complaint altered mental status Subjective 83-year-old male with history of essential hypertension, xxr-rsaierz-ixwegvevg type 2 diabetes mellitus, dementia, hyperlipidemia presented [...] tab(s), Oral, qDay fluticasone nasal 0.05 mg/inh [place] 50 mcg 1 spray(s), Nasal, qDay heparin [...] - ipratropium 2.5 mg-0.5 mg/3 mL Inhal Ble UD 3 mL, Inhalation, q4hRT dextrose 50% [...] by DEIDRA RODRIGUEZ on 10/26/2024 12:55 PM [facility] HospitalYyolrntu84-36-9595 Note* Exam Date Time Procedure Performing Provider Status 10/26/24 10:17 AM XR Chest 1 View MIRIAN DENNY MD; [facility] (Verified) [id number] ORIGINAL EXAMINATION: ONE XRAY VIEW OF THE [...] Sign Date: 10/26/2024 10:31:55 AM Ordering Provider: [facility]06-22-2025 Urology Progress note Date of Service 10/25/2024 [...] tab(s), Oral, qDay fluticasone nasal 0.05 mg/inh [place] 50 mcg 1 spray(s), Nasal, qDay heparin [...] LILLY MCINTOSH MD on 10/25/2024 03:54 PM [facility] HospitalNsfegmcj55-36-8143 History and physical note Date of Service [...] the the hospitalist. ABG showed pH 7.508, DGC558, PO2 37.5, O2 sat 74.9 on 15 [...] the the hospitalist. ABG showed pH 7.508, WUH358, PO2 37.5, O2 sat 74.9 on 15 L nasal cannula. Patient was subsequently put on BiPAP without improvement in his oxygenation. Therefore, he was subsequently transferred to MICU for further evaluation management. When the patient was here in the MICU, his oxygenation improved to the mid 90s on BiPAP (148) withFiO2 85%; therefore, intubation was hold off. [...] Retired. Description: Cosme, 04/09/2024 Home/Environment self Primary Video Operator:., 12/09/2018 Nutrition/Health Type of diet: Regular. Appetite [...] (COVID-19) mRNA-1273 vaccine: 0 unknown unit (05/25/20) tetanus/diphtheria/pertussMUL.ORD!m34854: 0.5 unknown unit (08/03/21) tetanus/diphtheria/pertussMUL.ORD!i23181: 0 unknown unit (08/25/12) zoster vaccine, inactivated: 1 unknown unit (05/16/19) zoster vaccine, inactivated: 1 unknown unit (02/04/19) Code Status Code Status - Ordered -- 10/20/24 22:35:00 EDT, Full Code, Constant Order Digitally Signed by LUIS SAMUELS DO on 10/25/2024 06:18 AM [facility] HospitalHjxxxtyj42-41-3153 Evaluation + Plan noteExtracted from: Title:MICU History [...] the the hospitalist. ABG showed pH 7.508, CRD218, PO2 37.5, O2 sat 74.9 on 15 L nasal cannula. Patient was subsequently put on BiPAP without improvement in his oxygenation. Therefore, he was subsequently transferred to MICU for further evaluation management. When the patient was here in the MICU, his oxygenation improved to the mid 90s on BiPAP (8) with FiO2 85%; therefore, intubation was hold [...] was given normal saline bolus in the [place] ED, sodium did improve from 122-123. Continue [...] Appointment Date:01/06/2025 10:30:00 AM Scheduled Provider:RASHMI PRICE Location:[facility] Appointment Type:PC OV Diagnostic Tests Pending * Culture Respiratory with Gram Stain 10/25/24 [facility] 06-22-2025 Cardiology Consult note Date of [...] Retired. Description: Cosme, 04/09/2024 Home/Environment self Primary Video Operator:., 12/09/2018 Nutrition/Health Type of diet: Regular. Appetite [...] (COVID-19) mRNA-1273 vaccine: 0 unknown unit (05/25/20) tetanus/diphtheria/pertussMUL.ORD!p30224: 0.5 unknown unit (08/03/21) tetanus/diphtheria/pertussMUL.ORD!v68935: 0 unknown unit (08/25/12) zoster vaccine, inactivated: 1 unknown unit (05/16/19) zoster vaccine, inactivated: 1 unknown unit (02/04/19) Digitally Signed by JOE CABRERA MD on 10/25/2024 10:46 AM [facility] HospitalRnppnabi28-73-1117 Note. MICRO - Microbiology PROCEDURE: Streptococcus Pneumoniae [...] Locations *1: This test was performed at: [facility], [address] [place] [address], [facility] , [facility]06-22-2025 Note. MICRO - Microbiology PROCEDURE: Legionella Urine [...] Locations *1: This test was performed at: [facility], [address] [place] [address], [id number] , [facility]06-22-2025 Note Date of Service 10/25/2024 I discussed the patient's CODE STATUS with his healthcare power of attorney general Lillyraf Monroy who wanted to switch his CODE STATUS to DNR/DNI. This DNR/DNI CODE STATUS was explained further to his POA who verbalized understanding and was agreeable to switching the patient's CODE STATUS to DNR/DNI. Digitally Signed by LUIS SAMUELS DO on 10/25/2024 04:51 AM [facility] HospitalHdwwdati80-28-7427 Note* Exam Date Time Procedure Performing Provider Status 10/25/24 2:07 AM XR Chest 1 View TIEN CAN MD; Aut h (Verified) [id number] ORIGINAL EXAMINATION: ONE XRAY VIEW OF THE [...] 10/25/2024 2:15:00 AM Ordering Provider: LUIS SAMUELS [facility] HospitalJymlnjxr46-33-5192 History and physical note Date of Service [...] the the hospitalist. ABG showed pH 7.508, EEL493, PO2 37.5, O2 sat 74.9 on 15 [...] the the hospitalist. ABG showed pH 7.508, XHT675, PO2 37.5, O2 sat 74.9 on 15 [...] Retired. Description: Cosme, 04/09/2024 Home/Environment self Primary Video Operator:., 12/09/2018 Nutrition/Health Type of diet: Regular. Appetite [...] (COVID-19) mRNA-1273 vaccine: 0 unknown unit (05/25/20) tetanus/diphtheria/pertussMUL.ORD!j49371: 0.5 unknown unit (08/03/21) tetanus/diphtheria/pertussMUL.ORD!n15204: 0 unknown unit (08/25/12) zoster vaccine, inactivated: 1 unknown unit (05/16/19) zoster vaccine, inactivated: 1 unknown unit (02/04/19) Code Status Code Status - Ordered -- 10/20/24 22:35:00 EDT, Full Code, Constant Order Digitally Signed by LUIS SAMUELS DO on 10/25/2024 06:18 AM [facility] HospitalGdilbkof19-57-0287 Note Date of Service 10/24/24 Reason for Consultation transfer out of ICU Referring Physician ICU History of Present Illness 83-year-old male with history of essential hypertension, osq-lldmtlh-kosxrzkzk type 2 diabetes mellitus, dementia, hyperlipidemia presented [...] Timed Study (collect at specified time), Blood, [id number], for 14 day(s), Preferred Lab: [facility], Stop date 11/07/24 5:00:00 EDT Complete Metabolic Panel(CMP), 10/25/24 5:00:00 EDT, Timed Study (collect at specified time), Blood, [id number], for 14 day(s), Preferred Lab: [facility], Stop date 11/07/24 5:00:00 EDT Consult to [...] Nurse and Monitor, Full Code, 70.5 kg, [facility]... Electrocardiogram(EKG), 10/24/24 7:28:00 EDT, follow up ekg from patients cardiac arrest Ferritin, 10/25/24 5:00:00 EDT, Next AM Draw (one day only), Blood, Once, Preferred Lab: [facility], Stop date 10/25/24 5:00:00 EDT Iron Studies, 10/25/24 5:00:00 EDT, Next AM Draw (one day only), Blood, Once, Preferred Lab: [facility], Stop date 10/25/24 5:00:00 EDT Magnesium Level(MG Level), 10/25/24 5:00:00 EDT, Timed Study (collect at specified time), Blood, [id number], for 14 day(s), Preferred Lab: [facility], Stop date 11/07/24 5:00:00 EDT Transfer/Change in [...] (one day only), Blood, Once, Preferred Lab: [facility], Stop date 10/25/24 5:00:00 EDT I transferred [...] CODE STATUS with patient's healthcare power of attorney general. They do wish to continue full CODE [...] Retired. Description: Cosme, 04/09/2024 Home/Environment self Primary Video Operator:., 12/09/2018 Nutrition/Health Type of diet: Regular. Appetite [...] (COVID-19) mRNA-1273 vaccine: 0 unknown unit (05/25/20) tetanus/diphtheria/pertussMUL.ORD!v98136: 0.5 unknown unit (08/03/21) tetanus/diphtheria/pertussMUL.ORD!q99117: 0 unknown unit (08/25/12) zoster vaccine, inactivated: 1 unknown unit (05/16/19) zoster vaccine, inactivated: 1 unknown unit (02/04/19) [1] Echocardiogram, Adult - CV; Kathywill Rhina Fred Collateral Specialist 05/18/2024 13:19 EST [2] Echocardiogram, Adult - CV; Rhina Harris Collateral Specialist 05/18/2024 13:19 EST Digitally Signed by NATASHA TALAVERA MD on 10/24/2024 03:55 PM [facility] HospitalAgqyfrcy78-73-3117 Note Date of Service 10/24/24 Reason for Consultation transfer out of ICU Referring Physician ICU History of Present Illness 83-year-old male with history of essential hypertension, yzw-frnpnso-qmpvznidc type 2 diabetes mellitus, dementia, hyperlipidemia presented [...] Timed Study (collect at specified time), Blood, [id number], for 14 day(s), Preferred Lab: [facility], Stop date 11/07/24 5:00:00 EDT Complete Metabolic Panel(CMP), 10/25/24 5:00:00 EDT, Timed Study (collect at specified time), Blood, [id number], for 14 day(s), Preferred Lab: [facility], Stop date 11/07/24 5:00:00 EDT Consult to [...] Nurse and Monitor, Full Code, 70.5 kg, [facility]... Electrocardiogram(EKG), 10/24/24 7:28:00 EDT, follow up ekg from patients cardiac arrest Ferritin, 10/25/24 5:00:00 EDT, Next AM Draw (one day only), Blood, Once, Preferred Lab: [facility], Stop date 10/25/24 5:00:00 EDT Iron Studies, 10/25/24 5:00:00 EDT, Next AM Draw (one day only), Blood, Once, Preferred Lab: [facility], Stop date 10/25/24 5:00:00 EDT Magnesium Level(MG Level), 10/25/24 5:00:00 EDT, Timed Study (collect at specified time), Blood, [id number], for 14 day(s), Preferred Lab: [facility], Stop date 11/07/24 5:00:00 EDT Transfer/Change in [...] (one day only), Blood, Once, Preferred Lab: [facility], Stop date 10/25/24 5:00:00 EDT I transferred [...] CODE STATUS with patient's healthcare power of attorney general. They do wish to continue full CODE [...] Retired. Description: Cosme, 04/09/2024 Home/Environment self Primary Video Operator:., 12/09/2018 Nutrition/Health Type of diet: Regular. Appetite [...] (COVID-19) mRNA-1273 vaccine: 0 unknown unit (05/25/20) tetanus/diphtheria/pertussMUL.ORD!r90497: 0.5 unknown unit (08/03/21) tetanus/diphtheria/pertussMUL.ORD!p23535: 0 unknown unit (08/25/12) zoster vaccine, inactivated: 1 unknown unit (05/16/19) zoster vaccine, inactivated: 1 unknown unit (02/04/19) [1] Echocardiogram, Adult - CV; Rhina Harris Collateral Specialist 05/18/2024 13:19 EST [2] Echocardiogram, Adult - CV; Rhina Harris Collateral Specialist 05/18/2024 13:19 EST Digitally Signed by NATASHA TALAVERA MD on 10/24/2024 03:55 PM [facility] HospitalYccgfckl95-73-0190 Note Date of Service 10/24/24 Reason for Consultation transfer out of ICU Referring Physician ICU History of Present Illness 83-year-old male with history of essential hypertension, bpa-gmvpxwg-gfzmkqljc type 2 diabetes mellitus, dementia, hyperlipidemia presented [...] Timed Study (collect at specified time), Blood, [id number], for 14 day(s), Preferred Lab: [facility], Stop date 11/07/24 5:00:00 EDT Complete Metabolic Panel(CMP), 10/25/24 5:00:00 EDT, Timed Study (collect at specified time), Blood, [id number], for 14 day(s), Preferred Lab: [facility], Stop date 11/07/24 5:00:00 EDT Consult to [...] Nurse and Monitor, Full Code, 70.5 kg, [facility]... Electrocardiogram(EKG), 10/24/24 7:28:00 EDT, follow up ekg from patients cardiac arrest Ferritin, 10/25/24 5:00:00 EDT, Next AM Draw (one day only), Blood, Once, Preferred Lab: [facility], Stop date 10/25/24 5:00:00 EDT Iron Studies, 10/25/24 5:00:00 EDT, Next AM Draw (one day only), Blood, Once, Preferred Lab: [facility], Stop date 10/25/24 5:00:00 EDT Magnesium Level(MG Level), 10/25/24 5:00:00 EDT, Timed Study (collect at specified time), Blood, [id number], for 14 day(s), Preferred Lab: [facility], Stop date 11/07/24 5:00:00 EDT Transfer/Change in [...] (one day only), Blood, Once, Preferred Lab: [facility], Stop date 10/25/24 5:00:00 EDT I transferred [...] CODE STATUS with patient's healthcare power of attorney general. They do wish to continue full CODE [...] Retired. Description: Cosme, 04/09/2024 Home/Environment self Primary Video Operator:., 12/09/2018 Nutrition/Health Type of diet: Regular. Appetite [...] (COVID-19) mRNA-1273 vaccine: 0 unknown unit (05/25/20) tetanus/diphtheria/pertussMUL.ORD!e94163: 0.5 unknown unit (08/03/21) tetanus/diphtheria/pertussMUL.ORD!m48042: 0 unknown unit (08/25/12) zoster vaccine, inactivated: 1 unknown unit (05/16/19) zoster vaccine, inactivated: 1 unknown unit (02/04/19) [1] Echocardiogram, Adult - CV; Kathywill Rhina B Collateral Specialist 05/18/2024 13:19 EST [2] Echocardiogram, Adult - CV; Kathyveronicachris Rhina B Collateral Specialist 05/18/2024 13:19 EST Digitally Signed by NATASHA TALAVERA MD on 10/24/2024 03:55 PM [facility]suhwepf93[facility]-0993 Urology Consult note Date of Service 10/24/2024 [...] Retired. Description: Cosme, 04/09/2024 Home/Environment self Primary Video Operator:., 12/09/2018 Nutrition/Health Type of diet: Regular. Appetite [...] (COVID-19) mRNA-1273 vaccine: 0 unknown unit (05/25/20) tetanus/diphtheria/pertussMUL.ORD!u10275: 0.5 unknown unit (08/03/21) tetanus/diphtheria/pertussMUL.ORD!l91789: 0 unknown unit (08/25/12) zoster vaccine, inactivated: 1 unknown unit (05/16/19) zoster vaccine, inactivated: 1 unknown unit (02/04/19) Digitally Signed by LILLY MCINTOSH MD on 10/25/2024 03:43 PM [facility]Peaqlidl66-01-5934 Note* Exam Date Time Procedure Performing Provider Status 10/24/24 3:02 PM XR Chest 1 View HUBER CORRAL DO; A [facility] (Verified) [id number] ORIGINAL EXAMINATION: Exam Title:ONE XRAY VIEW OF THE CHEST Completed Time: 10/24/2024 3:02 pm Procedure Description:CHEST ONE VIEW AP/PA COMPARISON: October 21, 2024 chest x-ray HISTORY: ORDERING SYSTEM PROVIDED HISTORY: Reason for Exam: crackles bilaterally recent cardiac arrest FINDINGS: Mild cardiomegaly. Buht-hz-jebqjpkz pulmonary vascular congestion. Basilar atelectasis. No evidence [...] 10/24/2024 3:04:51 PM Ordering Provider: NATASHA TALAVERA [facility]Pqdslhdt75-52-4882 Note* Exam Date Time Procedure Performing Provider [...] Electronic Signature: TAL MALIK MD 10/25/2024 15:10:11 [facility]Zgcuolnl00-90-3035 Note* Exam Date Time Procedure Performing Provider Status 10/23/24 8:[address] Head or Brain w/o Contrast NÉSTOR SNYDER MD; Auth (Verified) [id number] ORIGINAL EXAMINATION: CT OF THE HEAD WITHOUT [...] Sign Date: 10/23/2024 8:49:06 PM Ordering Provider: [facility]06-20-2025 Note Date of Service 10/23/2024 Subjective 83-year-old [...] tab(s), Oral, qDay fluticasone nasal 0.05 mg/inh [facility] 50 mcg 1 spray(s), Nasal, qDay heparin [...] SHYANNE GUTHRIE MD on 10/23/2024 12:23 PM [id number] Neurology Progress note Date of Service 10/23/24 [...] Oriented to person and BD only reported september/at formerly [facility] dept Language: Normal fluency, normal simple comprehension [...] distally RLE: 5/5 proximally, 5/5 distally Coordination: Raltxh-otqq-ubbmbm movements: No ataxia present Reflexes: R: L [...] tab(s), Oral, qDay fluticasone nasal 0.05 mg/inh [facility] 50 mcg 1 spray(s), Nasal, qDay heparin [...] management per medical team -Case discussed with VULCAN CREWMEMBER -Patient counseled the risks and health hazards [...] by SHANAE AVILA on 10/23/2024 12:53 PM [facility]Pportwdm09-06-7536 Note* Exam Date Time Procedure Performing Provider Status 10/22/24 5:27 PM MRI Brain w/o Contrast RASHMI AGUIRRE DO; Auth (Verified) [id number] ORIGINAL EXAMINATION: MRI OF THE BRAIN WITHOUT [...] 10/22/2024 5:41:11 PM Ordering Provider: MO OLGUIN [facility] [id number] Pastoral care Progress note Pastoral Care Note Entered On: 10/22/2024 14:05 EDT Performed On: 10/22/2024 11:00 EDT by Joe Martin [facility] Care Type of Pastoral Visit : Initial visit [...] by Joe Martin on 10/22/2024 02:00 PM [facility]Vxecggmf57-24-9414 Neurology Consult note Date of Service 10/22/2024 [...] Retired. Description: Gurdeep., 04/09/2024 Home/Environment self Primary Video Operator:., 12/09/2018 Nutrition/Health Type of diet: Regular. Appetite [...] WALTER CUEVAS MD on 10/22/2024 12:31 PM [facility]Tjjvlnfk03-63-7718 History and physical note Date of Service [...] of confusion brought to the ED in [place] for further evaluation. Patient with no medications, [...] Retired. Description: Cosme, 04/09/2024 Home/Environment self Primary Video Operator:., 12/09/2018 Nutrition/Health Type of diet: Regular. Appetite [...] LUIS SAMUELS DO on 10/21/2024 05:09 PM [facility] HospitalSeqfmbzi84-15-4611 Note. MICRO - Microbiology PROCEDURE: Urine Culture [...] Locations *1: This test was performed at: [facility], [address] [place] [address], [id number] , [facility]06-18-2025 Note* Exam Date Time Procedure Performing Provider Status 10/21/24 3:26 PM Electrocardiogram - EKG - CV VERONICA CAREY MD; Auth (Verified) ECG Final Report Sinus rhythm Probable left atrial enlargement Left bundle branch block Electronic Signature: BRIGITTE CAREY MD 10/22/2024 22:44:36 [id number] Note* Exam Date Time Procedure Performing Provider Status 10/21/24 3:12 PM XR Enteric Tube Placement MAR KNUTSON DO; Auth (Verified) [id number] ORIGINAL EXAMINATION: ONE SUPINE XRAY VIEW(S) OF [...] 10/21/2024 3:45:47 PM Ordering Provider: LUIS SAMUELS [facility]Qbovgdhy62-80-9051 History and physical note Date of Service [...] of confusion brought to the ED in [place] for further evaluation. Patient with no medications, [...] per year., 07/08/2024 Employment/School Status: Retired. Description: Bonnieyohanneskaleb., 04/09/2024 Home/Environment self Primary Video Operator:., 12/09/2018 Nutrition/Health Type of diet: Regular. Appetite [...] LUIS SAMUELS DO on 10/21/2024 05:09 PM [facility]Uagwfeot18-93-5257 Progress note Date of Service 10/21/2024 At [...] LUIS SAMUELS DO on 10/21/2024 03:47 PM [facility] HospitalWwegiksu41-26-3426 Note* Exam Date Time Procedure Performing Provider Status 10/21/24 2:08 PM Electrocardiogram - EKG - CV VERONICA CAREY MD; Auth (Verified) ECG Final Report Right and left arm electrode reversal, interpretation assumes no reversal SINUS RHYTHM Left atrial enlargement LEFT BUNDLE BRANCH BLOCK Electronic Signature: BRIGITTE CAREY MD 10/22/2024 22:44:26 [facility] HospitalQvyykylb41-58-5824 History and physical note Date of Service [...] of confusion brought to the ED in [place] for further evaluation. Patient with no medications, [...] g iven normal saline bolus in the [place] ED, sodium did improve from 122-123. Continue [...] Retired. Description: Gurdeep., 04/09/2024 Home/Environment self Primary Video Operator:., 12/09/2018 Nutrition/Health Type of diet: Regular. Appetite [...] ARAM BELL DO on 10/20/2024 11:54 PM [facility] HospitalIaywupxp14-94-6297 Note* Exam Date Time Procedure Performing Provider Status 10/20/24 11:50 AM XR Chest 2 Views MIRIAN DENNY MD; [facility] (Verified) [id number] ORIGINAL EXAMINATION: TWO XRAY VIEWS OF THE [...] 10/20/2024 12:10:04 PM Ordering Provider: JAMIE TAYLOR [facility]06-17-2025 Note* Exam Date Time Procedure Performing Provider Status 10/20/24 11:[address] Head or Brain w/o Contrast STEPHANIE RASHEED MD; [facility] (Verified) [id number] ORIGINAL EXAMINATION: CT OF THE HEAD WITHOUT [...] Date: 10/20/2024 11:52:19 AM Ordering Provider: JAMIE TAYLOR [facility]06-17-2025 Note* Exam Date Time Procedure Performing Provider Status 10/20/24 11:03 AM EKG [ED AOH] - CV JAMIE TAYLOR MD; Auth (Verified) ECG Final Report Sinus rhythm Probable left atrial enlargement Left bundle branch block SEE DICTATION Electronic Signature: JAMIE TAYLOR MD 10/20/2024 12:17:43 [facility]10-17-2024 Hospital Discharge instructions Patient Education 02/20/2024 [...] the ears or bruising around the eyes [phone] [employer]. [address] [place] [address]. All rights reserved. This information is not [...] in vomit, stools (black or red color) [phone] [employer]. [address] [place] [address]. All rights reserved. This information is not intended as a substitute for professional medical care. Always follow yourhealthcare professional's instructions. Follow Up Care 02/20/2024 14:39:26 With:[facility] Address: [address] [place] [phone] When:2-4 days With:ABAD SCHULZ MD, Orthopedic Address: [address] [place] [address], [address] [facility] [place] [address]- [phone] When:5 to 7 days [facility] 10-17-2024 Emergency department Discharge summary Discharge Instructions Thank you for allowing [facility] to assist you with your healthcare needs. [...] Following Appointments Follow Up with RASHMI PRICE APRN-ANGIE When:Within 2-4 days Where:[address] [facility] [place] [phone] Follow Up with ABAD SCHULZ MD, Orthopedic When:Within 5 to 7 days Where:[address] [facility] [address] [facility] [place] [address]- [phone] Allergies NKA Medications Please ask your primary [...] the ears or bruising around the eyes [phone] [employer]. [address] [place] [address]. All rights reserved. This information is not [...] in vomit, stools (black or red color) [phone] [employer]. [address] [place] [address]. All rights reserved. This information is not intended as a substitute for professional medical care. Always follow yourhealthcare professional's instructions. Additional Information VACCINATE! IT SAVES LIVES! Members of the community who have not yet received the COVID-19 vaccine and would like to receive it can visit one of [facility] vaccine clinics. There are many vaccine clinic locations within the [facility]. For locations and available times, please visit www.gettheshot.coronavirus.[place].gov/. It is important to note that some COVID mobile vaccine clinics are held outdoors and may be canceled in rainy or stormy conditions. To learn more about pediatric vaccinations (ages 5-11), we invite you to visit the [facility] webpage. https://www.[facility].org/pages/6527-Tstnf-Mklfbxvxpsy-Lyrhiduboq-Gihpr-Kgx stions.htmlTo learn more about the COVID-19 vaccine, we invite you to visit the CDC website for a list of frequently asked questions. https://www.cdc.gov/coronavirus/2019-ncov/vaccines/faq.html [facility] Patient Portal Access Instructions: Stay connected with your healthcare team and access your personal medical information anytime with the [facility] Patient Portal. If you would like a full copy of your medical records please contact the [facility] Medical Records Department Saturday through Saturday between 8a.m. and 4:30p.m. Please follow the directions below to access the portal: 1.Access the email account you provided upon registration to the [facility].2.Look for an invitation email from [facility].3.Open the email and access the invitation link: Accept Invitation to [employer]4.Fill in the required small to create your account. Sign into [email or web address] with your username and password that you [...] you will allow to register on the [facility] Patient Portal for access to your information. You can also access the [facility] Patient Portal on the [employer]. Simply click on "Health Records" under "[employer]" and then click on the Shannan logo. HOW TO SAFELY DISPOSE OF PRESCRIPTION [...] Call your local pharmacy or go to [email or web address] to find one close to you.3.Make use of household items: Use cat litter or old coffee grounds to dispose medications if other options arenot available. Mix your drugs with these household products, seal them in an airtight container andthrow it into the garbage. Call [facility]: [phone] to be sure your drugs can be [...] aware that I should contact my doctor. 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 Signature: Date/Time: Relationship to Patient: Witness Name/Signature: Date/Time: [facility]10-17-2024 Note ORIGINAL HISTORY: Fall COMPARISON: No [...] Sign Date: 02/20/2024 3:59:40 PM Ordering Provider: [address]17-2024 Note ORIGINAL HISTORY: Fall COMPARISON: No TECHNIQUE: [...] Sign Date: 02/20/2024 3:38:46 PM Ordering Provider: [address]17-2024 Note ORIGINAL HISTORY: Fall COMPARISON: No TECHNIQUE: [...] Sign Date: 02/20/2024 3:29:22 PM [facility]ing [facility] Future Appointments Appointment Date:05/16/2021 09:00:00 AM Scheduled Provider:RASHMI PRICE Location:[facility] Appointment Type:[facility] Medicare Future Scheduled Tests Radiology* XR Chest 2 Views (PA & Lateral) 04/08/21 [facility] Evaluation + Plan note Future Appointments Appointment Date:04/26/2021 09:00:00 AM Scheduled Provider:RASHMI PRICE Location:[facility] Appointment Type:PC OV Appointment Date:05/16/2021 09:00:00 AM Scheduled Provider:RASHMI PRICE Location:[facility] Appointment Type:[facility] Wellness Medicare Future Scheduled Tests Radiology* XR Chest 2 Views (PA & Lateral) 04/08/21 [facility] Evaluation + Plan note Future Appointments Appointment Date:05/01/2022 09:00:00 AM Scheduled Provider:RASHMI PRICE Location:[facility] Appointment Type:PC OV Future Scheduled Tests Laboratory* Prostate Specific Antigen 05/01/22 * Complete Blood Count 05/01/22 * Lipid Profile 05/01/22 * Complete Metabolic Panel 05/01/22 Radiology* XR Chest 2 Views (PA & Lateral) 04/08/21 [facility] Evaluation + Plan note Future Appointments Appointment Date:05/01/2022 09:00:00 AM Scheduled Provider:RASHMI PRICE Location:[facility] Appointment Type:PC OV [facility] Evaluation + Plan note Future Appointments Appointment Date:09/04/2022 08:00:00 AM Scheduled Provider:RASHMI PRICE Location:[facility] Appointment Type:PC OV Future Scheduled Tests Laboratory* Complete Blood Count 08/28/22 * Complete Metabolic Panel 08/28/22 [facility] Evaluation + Plan note Future Appointments Appointment Date:10/18/2022 09:00:00 AM Scheduled Provider:RASHMI PRICE Location:[facility] Appointment Type:PC OV [facility] Evaluation + Plan note Future Appointments Appointment Date:09/03/2023 12:15:00 PM Scheduled Provider:YASMANI [facility] DO Location:[facility] Appointment Type:PC Office Procedure Appointment Date:10/09/2023 09:00:00 AM Scheduled Provider:RASHMI PRICE Location:[facility] Appointment Type:PC OV Future Scheduled Tests Laboratory* Prostate Specific Antigen 10/09/23 * Complete Blood Count 10/09/23 * Complete Blood Count 09/20/22 * CPK 09/20/22 * Lipid Profile 10/09/23 * Albumin/Creatinine Ratio, Random Urine 08/30/23 * Complete Metabolic Panel 10/09/23 * Complete Metabolic Panel 09/20/22 [facility] Evaluation + Plan note Future Appointments Appointment Date:01/09/2024 09:30:00 AM Scheduled Provider:RASHMI PRICE Location:[facility] Appointment Type:PC OV Future Scheduled Tests Laboratory* Prostate Specific Antigen 10/09/23 * Complete Blood Count 10/09/23 * Lipid Profile 10/09/23 * Albumin/Creatinine Ratio, Random Urine 10/09/23 * Complete Metabolic Panel 10/09/23 [facility] Evaluation + Plan note Future Appointments Appointment Date:04/09/2024 10:30:00 AM Scheduled Provider:RASHMI PRICE Location:[facility] Appointment Type:[facility] Wellness Medicare Future Scheduled Tests Laboratory* Prostate Specific Antigen 10/09/23 * Complete Blood Count 10/09/23 * Lipid Profile 10/09/23 * Albumin/Creatinine Ratio, Random Urine 10/09/23 * Complete Metabolic Panel 10/09/23 [facility] Evaluation + Plan note Future Appointments Appointment Date:04/09/2024 10:30:00 AM Scheduled Provider:RASHMI PRICE Location:[facility] Appointment Type:[facility] Wellness Medicare Future Scheduled Tests Laboratory* Ferritin 03/23/24 * Iron Level 03/23/24 * Complete Blood Count 03/23/24 * Albumin/Creatinine Ratio, Random Urine 10/09/23 [facility] Evaluation + Plan note Future Appointments Appointment Date:04/09/2024 10:30:00 AM Scheduled Provider:RASHMI PRICE Location:[facility] Appointment Type:[facility] Wellness Medicare Future Scheduled Tests Laboratory* Albumin/Creatinine Ratio, Random Urine 10/09/23 [facility] Evaluation + Plan note Future Appointments Appointment Date:07/08/2024 10:00:00 AM Scheduled Provider:RASHMI PRICE Location:[facility] Appointment Type: OV Future Scheduled Tests Laboratory* Albumin/Creatinine Ratio, Random Urine 10/09/23 [facility] Evaluation + Plan note Future Appointments Appointment Date:05/01/2024 09:30:00 AM Scheduled Provider:RASHMI PRICE Location:[facility] Appointment Type:PC OV Appointment Date:07/08/2024 10:00:00 AM Scheduled Provider:RASHMI PRICE Location:[facility] Appointment Type:PC OV [facility] Evaluation + Plan note Future Appointments Appointment Date:07/08/2024 10:00:00 AM Scheduled Provider:RASHMI PRICE Location:[facility] Appointment Type:PC OV Future Scheduled Tests Laboratory* Ferritin 05/01/24 * Iron Level 05/01/24 * Complete Blood Count 05/01/24 [facility] Evaluation + Plan note Future Appointments Appointment Date:07/08/2024 10:00:00 AM Scheduled Provider:RASHMI PRICE Location:[facility] Appointment Type:PC OV [facility] Evaluation + Plan note Future Appointments Appointment Date:10/08/2024 10:30:00 AM Scheduled Provider:RASHMI PRICE Location:[facility] Appointment Type:PC OV [facility] Evaluation + Plan note Future Appointments Appointment Date:01/06/2025 10:30:00 AM Scheduled Provider:RASHMI PRICE Location:[facility] Appointment Type:PC OV [facility] Hospital course Narrative No data available for this section [facility] Hospital Discharge instructions No data available for this section [facility] Hospital Discharge instructionsAdditional Instructions Discharge to [facility] 11/13/2024, [facility] PT/OT/ST, FWW. FWW: Patient is unsafe to use a cane and requires a walker for ambulation in the home and the community.[facility] Work Phone: Progress note No data available for this section [facility] Summary Purpose Family History Relationship Condition Age at Onset Recorded Date/T russell daughter Diabetes mellitus Unknown mother Hypertension Unknown Hyperlipidemia Unknown Malignant neoplasm of lung Unknown father Hyperlipidemia Unknown brother Hyperlipidemia Unknown No Family History Records Found Advance Directives No Advanced Directives Records Found Advance Directive Response Recorded Date/ Time Do you have a Healthcare Power of Preventative Maintenance Technician? Yes October 30, 2024 9:46am Chief Complaint and Reason for Visit Chief Complaint Admit Date CARDIAC ARREST/RESP FAILURE October 29 3:48pm Reason for Visit Admit Date Acute [...] 2024 3:48 pm Hyperlipidemia, unspecified October 29, 025 3:48pm Hyponatremia October 29, 2024 3:48 [...] Member Role: Primary Care Physician Address: Address: [address] [place] [address] Name: Blessing Griffiths PT Position: P3 Scheduling - Ocular Pathologist Advanced Member Role: Other Name: BRENDEN FARMER MD Member Role: Photo Mask Pattern Generator Address: Address: [facility] [address] Name: [facility] Member Role: Conveyor Man Care Team Related Persons Name: JOEY ADAMSON Address: Home [address] [facility] [place], [place] [phone] [place] Care Team Personnel Name: RASHMI PRICE Position: P4 Advanced Practice Nurse Member Role: Primary Care Physician Address: Address: [address] [place] [address]- Name: Blessing Griffiths PT Position: P3 Scheduling - Ocular Pathologist Advanced Member Role: Other Name: BRENDEN FARMER MD Member Role: Photo Mask Pattern Generator Address: Address: [facility] [address] [place] [address]- [place] Name: [facility] Member Role: Conveyor Man Care Team Related Persons Name: JOEY ADAMSON Address: Home [address] [place] [address] [place], [place] [phone] [place] Patient Care team informatio n (unrecognized section and content) Team Status: Active Member Role/Relationship Status Dates Rashmi Price PAVING FOREMAN, PAVING FOREMAN-C Primary Care Provider Active Team Status: Inactive Member Role/Relationship Status Dates Rashmi Price PAVING FOREMAN, PAVING FOREMAN-C Primary Care Provider Active Start: October 29, [...] section and content) DATE CREATED AUTHOR 10/13/2023 [facility] ([place]) DATE CREATED AUTHOR AUTHOR'S ORGANIZ ATION 10/30/2024 [facility] DATE CREATED AUTHOR AUTHOR'S ORGANIZ ATION 11/24/2024 [facility] DATE CREATED AUTHOR AUTHOR'S ORGANIZ ATION 12/02/2024 [facility] MAIN FOR RECORDS PERTAINING TO PATIENTS WHO ARE [...] BE BASED ON THE PRIMARY CLINICAL RECORDS. [employer] provides no warranty or guarantee of the accuracy or completeness of information in this document.
[2024-12-10 18:24] LABS: Color, Urine Amber (Yellow); Glucose, Dipstick Normal (Normal); Ketone-Dipstick Negative (Negative); Leukocyte Esterase-Dipstick 500 /ul (Negative); Nitrite-Dipstick Positive (Negative); Occult Blood-Urine 250 /ul (Negative); Protein-Dipstick 500 mg/dl (Negative); Specific Gravity, Urine 1.015 (1.002-1.030); Urine Bilirubin Dipstick Negative (Negative)
[2024-12-10 22:42] LABS: Red Blood Cells-Urine > 100 SEEN /hpf (0-5)
== END ==
PROVIDERS: PCP Nurse Practitioner Primary Care; Referring Provider Family Medicine; Visit Provider Family Medicine
DX: R31.9 Hematuria, unspecified (principal); Z87.440 Personal history of urinary (tract) infections
CPT/HCPCS: 81001; 87077; 87086; 87088; 87186

== ENCOUNTER → 2025-04-16 05:00 | Outpatient (REF) | payer MEDICARE, SELFPAY ==
--- OUTSIDE RECORDS SUMMARY | 2025-04-16 04:22 | XMS RPT_ITS | CCD ---
Author Organization [facility] Inform ion Partnership [facility] Care Team Providers Care Decatizer Name Role Phone ALBERT RADIO TIME SALESPERSONIngridSTAPLE FIBER WASHER, RASHMI Primary Care Physician [phone] Tunde PTMakenzie Unavailable Unavailable BALTES RADIO TIME SALESPERSON-STAPLE FIBER WASHER, RASHMI Attending Unavailabl e BALTES RADIO TIME SALESPERSON-STAPLE FIBER WASHER, RASHMI Primary Care Unavailabl e YASMANI COULTER DO Attending Unavailable BALTES RADIO TIME SALESPERSON-STAPLE FIBER WASHER, RASHMI Primary Care Unavailabl e BALTES RADIO TIME SALESPERSON-STAPLE FIBER WASHER, RASHMI Attending Unavailabl e BALTES RADIO TIME SALESPERSON-STAPLE FIBER WASHER, RASHMI Primary Care Unavailabl e Guadalupe Holm Unavailable Unavailable BALTES RADIO TIME SALESPERSON-STAPLE FIBER WASHER, RASHMI Primary Care Unavailabl e BALTES RADIO TIME SALESPERSON-STAPLE FIBER WASHER, RASHMI Attending Unavailabl e BALTES RADIO TIME SALESPERSON-STAPLE FIBER WASHER, RASHMI Primary Care Unavailabl e BALTES RADIO TIME SALESPERSON-STAPLE FIBER WASHER, RASHMI Attending Unavailabl e BALTES RADIO TIME SALESPERSON-STAPLE FIBER WASHER, RASHMI Attending Unavailabl e BALTES RADIO TIME SALESPERSON-STAPLE FIBER WASHER, RASHMI Primary Care Unavailabl e BALTES RADIO TIME SALESPERSON-STAPLE FIBER WASHER, RASHMI Attending Unavailabl e BALTES RADIO TIME SALESPERSON-STAPLE FIBER WASHER, RASHMI Primary Care Unavailabl e BALTES RADIO TIME SALESPERSON-STAPLE FIBER WASHER, RASHMI Attending Unavailabl e BALTES RADIO TIME SALESPERSON-STAPLE FIBER WASHER, RASHMI Primary Care Unavailabl e BALTES RADIO TIME SALESPERSON-STAPLE FIBER WASHER, RASHMI Attending Unavailabl e BALTES RADIO TIME SALESPERSON-STAPLE FIBER WASHER, RASHMI Primary Care Unavailabl e BALTES RADIO TIME SALESPERSON-STAPLE FIBER WASHER, RASHMI Primary Care Unavailabl e BALTES RADIO TIME SALESPERSON-STAPLE FIBER WASHER, RASHMI Attending Unavailabl kirill HAHN MD, JUDIT Consulting Unavailable BALTES RADIO TIME SALESPERSON-STAPLE FIBER WASHER, RASHMI Primary Care Unavailabl JAMIE Morgan MD Attending Unavailable BALTES RADIO TIME SALESPERSON-STAPLE FIBER WASHER, RASHMI Primary Care Unavailabl e NELIDA GROVE DO Attending Unavailable BALTES RADIO TIME SALESPERSON-STAPLE FIBER WASHER, RASHMI Attending Unavailabl e BALTES RADIO TIME SALESPERSON-STAPLE FIBER WASHER, RASHMI Primary Care Unavailabl e BALTES RADIO TIME SALESPERSON-STAPLE FIBER WASHER, RASHMI Primary Care Unavailabl e JOEL RADIO TIME SALESPERSON-STAPLE FIBER WASHER, KATI Attending Unavailab le BALTES RADIO TIME SALESPERSON-STAPLE FIBER WASHER, RASHMI Attending Unavailabl e BALTES RADIO TIME SALESPERSON-STAPLE FIBER WASHER, RASHMI Primary Care Unavailabl e Baltes MEDICAL STENOGRAPHER-C, Rashmi Primary Care Provider Derek TREVIZO, Dr. Juan Lacey Admit Provider Derek TREVIZO, Dr. Juan Lacey Attending Provider Derek TREVIZO, Dr. Juan Lacey Referring Provider KYLIE TREVIZO, KUN Consulting Unavailable JOHAN TREVIZO, ROSI Attending Unavailable JOVANI TREVIZO, JUDIT Admitting Unavailable BALTES RADIO TIME SALESPERSON-STAPLE FIBER WASHER, RASHMI Primary Care Unavailyessica HAHN MD, JUDIT Consulting Unavailable DAYNA TREVIZO, LILLY Bernal Consulting Unavailable Yfn TREVIZO, Dr. Gruber Attending Provider Unavail able Yfn TREVIZO, Dr. Gruber Referring Provider Unavail able Yasmani Braswell Referring Unavailable Albert MEDICAL STENOGRAPHER, Rashmi Primary Care Unavailable Yasmani Braswell Attending Unavailable Yasmani Braswell Referring Unavailable Albert MEDICAL STENOGRAPHER, Rashmi Primary Care Unavailable Yasmani Braswell Attending Unavailable Juan Reed Chi Admitting Unavailable Juan Reed Chi Attending Unavailable Juan Reed Chi Referring Unavailable Baltes MEDICAL STENOGRAPHER, Rashmi Primary Care Unavailable Baltes MEDICAL STENOGRAPHER-C, Rashmi Primary Care Physician Derek TREVIZO, Dr. Juan Lacey Admitting Physician Derek TREVIZO, Dr. Juan Lacey Attending Physician Yfn TREVIZO, Dr. Gruber Attending Physician Unava lable Medications Current Medications Medication Drug Class(es) Dates Sig (Normalized) Sig (Original) acetaminophen 500 mg oral tablet (3 sources) Start: 11-11-2024 take 2 tablets by mouth every eight hours amLODIPine 5 mg oral tablet (15 sources) Dihydropyridine Calcium Channel Sharif Start: 05-01-2024 End: 06-05-2025 amLODIPine 5 mg oral tablet Dose : 5 mg = 1 tab(s), Oral, BID, dose increase, # 200 tab(s), 3 Refill(s), Pharmacy: [facility]/pharmacy #[id number], Hypertension, 171, cm, 05/01/24 15:45:00 EST, Height, kg, 05/01/24 15:45:00 EST, Dosing Weight Start Date: 05/01/24 Stop Date: 06/05/25 Status: Ordered Quantity: 200.0 Unit: tab(s) Repeat number: 4 Indications: Essential (primary) hypertension; Start: 05-15-2023 amLODIPine 5 m g oral tablet Dose : 5 mg = 1 tab(s), Oral, qDay, # 90 tab(s), 3 Refill(s), Pharmacy: [facility]/pharmacy #[id number], Hypertension, 172, cm, 04/19/23 8:24:00 EST, Height, kg, 04/19/23 8:24:00 EST, Dosing Weight Start Date: 05/15/23 Status: Ordered Start: 01-30-2022 amLODIPine 5 m g oral tablet Dose : 5 mg = 1 tab(s), Oral, qDay, # 90 tab(s), 3 Refill(s), Pharmacy: [facility], Hypertension, 172.7, cm, 01/30/22 8:54:00 [...] 0 Refill(s), 04/18/21 8:21:00 EST, [facility] [address] 175.3, cm, 04/08/21 8:08:00 EST, Height, 72.7, kg, 04/08/21 8:08:00 EST, Dosing Weight Start Date: 04/08/21 Stop Date: 04/18/21 Status: Ordered aspirin 81 mg delayed release oral tablet (19 sources) Platelet Aggregation Inhibitor, Nonsteroidal Anti-inflammatory Drug Start: 05-15-2023 take 1 tablet by mouth once daily Start: 07-17-2022 aspirin 81 mg oral delayed release tablet Dose : 81 mg = 1 tab(s), Oral, qDay, # 90 tab(s), 3 Refill(s), Pharmacy: [facility], Atherosclerosis of aorta Type 2 [...] take 1 tablet by mouth once daily Start: 05-15-2023 atorvastatin 4 0 mg oral tablet Dose : 40 mg = 1 tab(s), Oral, qDay, # 90 tab(s), 3 Refill(s), Pharmacy: [facility]/pharmacy #[id number], Hyperlipidemia Type 2 diabetes mellitus, 172, cm, 04/19/23 8:24:00 EST, Height, kg, 04/19/23 8:24:00 EST, Dosing Weight Start Date: 05/15/23 Status: Ordered Start: 03-11-2019 End: 11-11-2024 take 1 tablet by mouth at bedtime Atorvastatin 80 MG tablet Discontinued 80 mg PO AT BEDTIME March 11, 2019 1:00am November 11, 2024 3:46pm cholesterol Azithromycin 5 Day Dose Pack 250 mg oral tablet (2 sources) Start: 04-08-2021 End: 04-13-2021 Azithromycin 5 Day Dose Pack 250 mg oral tablet Take two (2) tablets day 1-then one (1) tablet, Oral, Daily, X 5 day(s), # 6 tab(s), 0 Refill(s), 04/13/21 8:21:00 EST, Pharmacy: [facility] [id number] cap(s), 0 Refill(s), 04/18/21 11:21:00 EST, [facility] [address] Cough, 172.7, cm, 04/11/21 10:22:00 EST, Height, kg, 04/11/21 10:22:00 EST, Dosing Weight Start Date: 04/11/21 Stop Date: 04/18/21 Status: Ordered biotin 1 mg oral tablet (1 source) Start: 05-10-2020 biotin 1000 mcg oral tablet Dose : 1,000 mcg = 1 tab(s), Oral, qDay, 0 Refill(s) Start Date: 05/10/20 Status: Ordered cholecalciferol 0.025 mg oral capsule (3 sources) Vitamin D Start: 10-29-2024 take 1 capsule by mouth once daily Chondroitin Sulfates / Glucosamine (1 source) Start: 05-10-2020 take 1 capsule by mouth once daily Glucosamine Chondroitin oral capsule Dose = 3 cap(s), Oral, qDay, # 50 cap(s), 0 Refill(s) Start Date: 05/10/20 Status: Ordered ferrous sulfate 325 mg delayed release oral tablet (2 sources) Start: 01-28-2024 End: 04-27-2024 ferrous sulfate 325 mg (65 mg elemental iron) oral delayed release tablet Dose : 325 mg = 1 tab(s), Oral, qDay, # 90 tab(s), 0 Refill(s), Pharmacy: [facility]/pharmacy #[id number], Iron deficiency anemia, 172.7, cm, 01/09/24 9:29:00 EDT, Height, kg, 01/09/24 9:29:00 EDT, Dosing Weight Start Date: 01/28/24 Stop Date: 04/27/24 Status: Ordered fluticasone propionate 0.05 mg/actuat metered dose nasal spray (19 sources) Corticosteroid Start: 10-29-2024 take 50 ug nasal route once daily Start: 05-15-2023 fluticasone 50 mcg/inh NASAL spray 50 mcg, Nasal, qDay, # 16 gram(s), 2 Refill(s), [id number], Seasonal allergies, 172, cm, 04/19/23 8:24:00 EST, Height, kg, 04/19/23 8:24:00 EST, Dosing Weight Start Date: 05/15/23 Status: Ordered Quantity: 16.0 Unit: g Repeat number: 3 Indications: Other seasonal allergic rhinitis; Start: 03-02-2019 fluticasone 50 mcg/inh NASAL spray 50 mcg, Nasal, qDay, # 16 gram(s), 2 Refill(s), Pharmacy: [address], Seasonal allergies Start Date: 03/02/19 Status: Ordered fluticasone 50 mcg/inh NASAL spray (2 sources) Start: 03-02-2019 fluticasone 50 mcg/inh NASAL spray 50 mcg, Nasal, qDay, # 16 gram(s), 2 Refill(s), Pharmacy: [address], Seasonal allergies Start Date: 03/02/19 Status: [...] number: 1 latanoprost 0.05 mg/ml ophthalmic solution (20 sources) Prostaglandin Analog Start: 10-29-2024 Start: 12-10-2018 take 1 dose into the [...] Status: Ordered lisinopril 40 mg oral tablet (20 sources) Angiotensin Converting Enzyme Inhibitor Start: 05-15-2023 lisinopril 40 mg ora l tablet Dose : 40 mg = 1 tab(s), Oral, qDay, # 90 tab(s), 3 Refill(s), Pharmacy: [facility]/pharmacy #[id number], Hypertension, 172, cm, 04/19/23 8:24:00 EST, Height, kg, 04/19/23 8:24:00 EST, Dosing Weight Start Date: 05/15/23 Status: Ordered Quantity: 90.0 Unit: tab(s) Repeat number: 4 Indications: Essential (primary) hypertension; Start: 09-04-2022 lisinopril 40 mg oral tablet Dose : 40 mg = 1 tab(s), Oral, qDay, # 90 tab(s), 3 Refill(s), Pharmacy: [facility], Hypertension, 172.7, cm, 09/04/22 7:49:00 EDT, Height, kg, 09/04/22 7:49:00 EDT, Dosing Weight Start Date: 09/04/22 Status: Ordered Start: 10-06-2021 lisinopril 40 mg oral tablet Dose : 40 mg = 1 tab(s), Oral, qDay, # 90 tab(s), 3 Refill(s), Pharmacy: [facility], Hypertension, 173.99, cm, 10/06/21 7:57:00 EDT, Height, kg, 10/06/21 7:57:00 EDT, Dosing Weight Start Date: 10/06/21 Status: Ordered Start: 04-06-2021 lisinopril 10 mg oral tablet Dose : 10 mg = 1 tab(s), Oral, qDay, no refills sent with last script - thank you!, # 90 tab(s), 3 Refill(s), Pharmacy: [facility], Hypertension, 172.7, cm, 01/06/20 10:26:00 [...] (20 sources) Biguanide Start: 10-29-2024 End: 11-11-2024 Start: 09-16-2024 End: 09-11-2025 MetFORMIN (Eqv-Glucophage XR ) 500 mg oral tablet, EXTENDED RELEASE Dose : 2,000 mg = 4 tab(s), Oral, qDay, # 360 tab(s), 3 Refill(s), Pharmacy: [facility]/pharmacy #[id number], Type 2 diabetes mellitus, 169.5, cm, [...] qDay, # 360 tab(s), 3 Refill(s), Pharmacy: [facility]/pharmacy #[id number], Type 2 diabetes mellitus, 171, cm, 07/09/23 6:57:00 EST, Height, kg, 07/09/23 6:57:00 EST, Dosing Weight Start Date: 07/09/23 Stop Date: 07/03/24 Status: Ordered Start: 05-29-2022 End: 11-25-2022 metFORMIN 500 mg oral tablet EXTENDED RELEASE Dose : 2,000 mg = 4 tab(s), Oral, qDay, # 360 tab(s), 3 Refill(s), Pharmacy: [facility], Type 2 diabetes mellitus, 172.7, cm, 09/04/22 7:49:00 EDT, Height, kg, 09/04/22 7:49:00 EDT, Dosing Weight Start Date: 09/04/22 Status: Ordered Start: 01-30-2022 End: 04-30-2022 metFORMIN 500 mg oral tablet EXTENDED RELEASE Dose : 2,000 mg = 4 tab(s), Oral, qDay, # 360 tab(s), 0 Refill(s), Pharmacy: [facility], Type 2 diabetes mellitus, 172.7, cm, 01/30/22 8:54:00 EDT, Height, kg, 01/30/22 8:54:00 EDT, Dosing Weight Start Date: 01/30/22 Stop Date: 04/30/22 Status: Ordered Start: 04-06-2021 metFORMIN 500 mg oral tablet EXTENDED RELEASE Dose : 1,000 mg = 2 tab(s), Oral, qDay, # 180 tab(s), 3 Refill(s), Pharmacy: [facility], 172.7, cm, 01/06/20 10:26:00 EDT, [...] Status: Ordered pioglitazone 30 mg oral tablet (17 sources) Peroxisome Proliferator Receptor alpha Agonist, Peroxisome Proliferator Receptor gamma Agonist, Thiazolidinedione Start: 06-09-2024 take 1 tablet by mouth once daily Start: 05-15-2023 pioglitazone 3 0 mg oral tablet Dose : 30 mg = 1 tab(s), Oral, Daily, # 90 tab(s), 3 Refill(s), Pharmacy: [facility]/pharmacy #[id number], 172, cm, 04/19/23 8:24:00 EST, Height, kg, 04/19/23 8:24:00 EST, Dosing Weight Start Date: 05/15/23 Status: Ordered Start: 09-04-2022 pioglitazone 3 0 mg oral tablet Dose : 30 mg = 1 tab(s), Oral, Daily, # 90 tab(s), 3 Refill(s), Pharmacy: [facility], 172.7, cm, 09/04/22 7:49:00 EDT, Height, kg, 09/04/22 7:49:00 EDT, Dosing Weight Start Date: 09/04/22 Status: Ordered Start: 07-17-2022 pioglitazone 3 0 mg oral tablet Dose : 30 mg = 1 tab(s), Oral, Daily, # 90 tab(s), 0 Refill(s), Pharmacy: [facility], 173.99, cm, 07/17/22 7:31:00 EDT, Height Start Date: 07/17/22 Status: Ordered sertraline 25 mg oral tablet (9 sources) Serotonin Reuptake Inhibitor Start: 10-29-2024 take 1 tablet by mouth once daily Start: 10-08-2024 sertraline 25 mg oral tablet Dose : 25 mg = 1 tab(s), Oral, qDay, # 90 tab(s), 0 Refill(s), Pharmacy: [facility]/pharmacy #[id number], Anxiety, 170.2, cm, 10/08/24 10:32:00 EDT, [...] unspecified; tamsulosin hydrochloride 0.4 mg oral capsule (7 sources) alpha-Adrenergic Sharif Start: 11-11-2024 take 2 capsules by mouth once daily Start: 10-29-2024 End: 11-11-2024 take 1 capsule by mouth once daily Tamsulosin (Flomax) 0.4 mg capsule Discontinued 0.4 mg PO DAILY October 29, 2024 12:00am November 11, 2024 3:47pm prostate terbinafine 250 mg oral tablet (2 sources) Allylamine Antifungal Start: 07-17-2022 End: 10-09-2022 terbinafine 250 mg oral tablet Dose : 250 mg = 1 tab(s), Oral, qDay, X 42 day(s), # 42 tab(s), 1 Refill(s), 10/09/22 7:57:00 EDT, Pharmacy: [facility], Onychomycosis, 173.99, cm, 07/17/22 7:31:00 EDT, Height Start Date: 07/17/22 Stop Date: 10/09/22 Status: Ordered Timolol Maleate (19 sources) beta-Adrenergic Sharif Start: 10-29-2024 Start: 10-29-2024 Timolol Maleat e 0.5 % drops Active 1 NMA OPHTHALMIC [...] Ordered traZODone hydrochloride 50 mg oral tablet (4 sources) Serotonin Reuptake Inhibitor Start: 10-29-2024 take 1 tablet by mouth at bedtime Vitamin D3 (18 sources) Start: 05-10-2020 Vitamin D3 Dose : 2,000 unit(s) = 1 tab(s), Oral, [...] pain, # 100 gram(s), 0 Refill(s), Pharmacy: [facility]/pharmacy #[id number], Gel, 171, cm, 08/08/23 8:28:00 EDT, Height, 73, kg, 08/08/23 8:28:00 EDT, Dosing Weight Start Date: 08/08/23 Stop Date: 08/22/23 Status: Ordered docusate sodium 100 mg oral capsule (4 sources) Start: 10-29-2024 End: 11-11-2024 take 1 capsule by mouth twice daily Docusate Sodium (Colace) 100 mg capsule Discontinued 100 mg PO TWICE A DAY October 29, 2024 12:00am November 11, 2024 3:46pm constipation Multivitamin (Daily Multi-Vitamin) tablet (3 sources) Start: 10-29-2024 End: 11-11-2024 Multivitamin (Daily Multi-Vitamin) tablet Discontinued 1 {tbl} PO DAILY October 29, 2024 12:00am November 11, 2024 3:47pm supplement Problems Active Problems Problem Classification Problem Date Documented Date Episodic/Chronic Anxiety disorders (15 sources) Anxiety; Translations: [Anxiety disorder] Onset: 10-20-2024 05-01-2024 Chronic Cardiac arrest and ventricular fibrillation (10 sources) Cardiac arrest; Translations: [Cardiac arrest, cause unspecified] Onset: 10-20-2024 Chronic Cataract (20 sources) Opacification of intraocular lens; 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] Onset: 05-08-2022 07-31-2022 Chronic Comment on above: shu eyes, WEC, stabl e Stable, WEC Conduction disorders (3 sources) Left bundle branch block; Translations: [Left bundle-branch block, unspecified] Onset: 10-20-2024 Chronic Congestive heart failure; nonhypertensive (12 sources) Diastolic heart failure; Translations: [Unspecified diastolic (congestive) heart failure] Onset: 10-20-2024 10-24-2024 Chronic Deficiency and other anemia (13 sources) Iron deficiency anemia; Translations: [Iron deficiency anemia, unspecified] 05-01-2024 Episodic Delirium, dementia, and amnestic and other cognitive disorders (6 sources) Vascular dementia ; Translations: [Vascular dementia without behavioral disturbance] 10-29-2024 Chronic Diabetes mellitus with complications (6 sources) Hyperglycemia due to type 2 diabetes [...] 04-19-2023 01-06-2020 Chronic Fluid and electrolyte disorders (11 sources) Hypo-osmolality and or hyponatremia; Translations: [Hypo-osmolality [...] failure] Onset: 10-20-2024 Chronic Malaise and fatigue (6 sources) Asthenia; Translations: [Other malaise] 10-29-2024 Episodic Mycoses (1 source) Onychomycosis due to dermatophyte ; Translations: [Tinea unguium] Episodic Other aftercare (1 source) Other group home (current) drug therapy; Translations: [Other group home (current) drug therapy] Onset: 11-23-2024 Episodic Other [...] caused by tuberculosis or sexually transmitted disease) (6 sources) Pneumonia; Translations: [Pneumonia, unspecified organism] 10-29-2024 Episodic Residual codes; unclassified (1 source) Altered mental status; Translations: [Altered mental status, unspecified] Onset: 10-26-2024 Episodic Residual codes; unclassified (6 sources) Delirium; Translations: [Disorientation, unspecified] 10-29-2024 Episodic Residual codes; unclassified (1 source) Altered mental status, unspecified; Translations: [Altered mental status, unspecified] Onset: 10-20-2024 Episodic Respiratory failure; insufficiency; arrest (adult) (10 sources) Acute respiratory failure; Translations: [Acute respiratory failure with hypoxia] Onset: 10-20-2024 Episodic Unclassified (19 sources) Body mass index 20-24 - normal 10-06-2021 Unclassified (9 sources) Patient encounter status 04-09-2024 Unclassified (7 sources) Moderate aortic valve stenosis 05-01-2024 Unclassified (3 sources) pt will see Dr. Coulter at [place], Unclassified (1 source) Other toxic encephalopathy; Translations: [...] Metabolic Profile (BMP )on 12-25-2024 BUN Normal 08-22 [facility] Comment on above: Result Comment: Canc elled via OM: Order cancelled - Patient discharged Performed By: #### L 501.080 #### [facility] [address] [place], [address] BUN/CRE Normal 10-20 [facility] Comment on above: Result Comment: Canc elled via OM: Order cancelled - Patient discharged Performed By: #### L 501.080 #### [facility] [address] [place], [address] Calcium Normal 7.6-11.0 [facility] Comment on above: Result Comment: Canc elled via OM: Order cancelled - Patient discharged Performed By: #### L 501.080 #### [facility] [address] [place], [address] CL Normal 98-108 [facility] Comment on above: Result Comment: Canc elled via OM: Order cancelled - Patient discharged Performed By: #### L [id number] #### [facility] [address] [place], [address] CO2 Normal 21.0-32.0 [facility] Comment on above: Result Comment: Canc elled via OM: Order cancelled - Patient discharged Performed By: #### L [id number] #### [facility] [address] [place], [address] CREAT,SERUM Normal 0.70-1.20 [facility] Comment on above: Result Comment: Canc elled via OM: Order cancelled - Patient discharged Performed By: #### L [id number] #### [facility] [address] [place], [address] eGFR Normal >60 [facility] Comment on above: Result Comment: Canc elled via OM: Order cancelled - Patient discharged Performed By: #### L 501.080 #### [facility] [address] [place], [address] GAP Normal 5-15 [facility] Comment on above: Result Comment: Canc elled via OM: Order cancelled - Patient discharged Performed By: #### L 501.080 #### [facility] [address] [place], [address] GLU Normal 70-99 [facility] Comment on above: Result Comment: Canc elled via OM: Order cancelled - Patient discharged Performed By: #### L [id number] #### [facility] [address] [place], [address] Potassium Normal 3.3-5.1 [facility] Comment on above: Result Comment: Canc elled via OM: Order cancelled - Patient discharged Performed By: #### L 501.080 #### [facility] [address] [place], [address] Basic Metabolic Profile (BMP) Normal 133-145 [facility] Comment on above: Result Comment: Canc elled via OM: Order cancelled - Patient discharged Performed By: #### L [id number] #### [facility] [address] [place], [address] CBC W/Diff, Automatedon 08-2 -2024 Absolute Neut Normal 2.0-7.7 [facility] Comment on above: Result Comment: Canc elled via OM: Order cancelled - Patient discharged Performed By: #### L [id number] #### [facility] [address] [place], [address] HCT Normal 40-54 [facility] Comment on above: Result Comment: Canc elled via OM: Order cancelled - Patient discharged Performed By: #### L [id number] #### [facility] [address] [place], [address] HGB Normal 13.0-16.5 [facility] Comment on above: Result Comment: Canc elled via OM: Order cancelled - Patient discharged Performed By: #### L [id number] #### [facility] [address] [place], [address] MCH Normal 27.0-32.0 [facility] Comment on above: Result Comment: Canc elled via OM: Order cancelled - Patient discharged Performed By: #### L [id number] #### [facility] [address] [place], [address] MCHC Normal 32-36 [facility] Comment on above: Result Comment: Canc elled via OM: Order cancelled - Patient discharged Performed By: #### L [id number] #### [facility] [address] [place], [address] MCV Normal 80-94 [facility] Comment on above: Result Comment: Canc elled via OM: Order cancelled - Patient discharged Performed By: #### L [id number] #### [facility] [address] [place], [address] NEUT% Normal 47-70 [facility] Comment on above: Result Comment: Canc elled via OM: Order cancelled - Patient discharged Performed By: #### L 501.080 #### [facility] [address] [place], [address] PLT Normal 150-450 [facility] Comment on above: Result Comment: Canc elled via OM: Order cancelled - Patient discharged Performed By: #### L [id number] #### [facility] [address] [place], [address] RBC Normal 4.6-6.2 [facility] Comment on above: Result Comment: Canc elled via OM: Order cancelled - Patient discharged Performed By: #### L 501.080 #### [facility] [address] [place], [address] RDW CV Normal 11.6-14.6 [facility] Comment on above: Result Comment: Canc elled via OM: Order cancelled - Patient discharged Performed By: #### L [id number] #### [facility] [address] [place], [address] RDW SD Normal 35.1-43.9 [facility] Comment on above: Result Comment: Canc elled via OM: Order cancelled - Patient discharged Performed By: #### L [id number] #### [facility] [address] [place], [address] WBC Normal 4.4-11.0 [facility] Comment on above: Result Comment: Canc elled via OM: Order cancelled - Patient discharged Performed By: #### L [id number] #### [facility] [address] [place], [address] Basic Metabolic Profile (BMP )on 12-18-2024 BUN Normal 4-19 [facility] Comment on above: Result Comment: Canc elled via OM: Order cancelled - Patient discharged Performed By: #### L [id number] #### [facility] [facility] [address] [place], [address] BUN/CRE Normal 10-20 [facility] Comment on above: Result Comment: Canc elled via OM: Order cancelled - Patient discharged Performed By: #### L 501.080 #### [facility] [address] [place], [address] Calcium Normal 7.6-11.0 [facility] Comment on above: Result Comment: Canc elled via OM: Order cancelled - Patient discharged Performed By: #### L 501.080 #### [facility] [address] [place], [address] CL Normal 98-108 [facility] Comment on above: Result Comment: Canc elled via OM: Order cancelled - Patient discharged Performed By: #### L 501.080 #### [facility] [address] [place], [address] CO2 Normal 21.0-32.0 [facility] Comment on above: Result Comment: Canc elled via OM: Order cancelled - Patient discharged Performed By: #### L 501.080 #### [facility] [address] [place], [address] CREAT,SERUM Normal 0.70-1.20 [facility] Comment on above: Result Comment: Canc elled via OM: Order cancelled - Patient discharged Performed By: #### L 501.080 #### [facility] [address] [place], [address] eGFR Normal >60 [facility] Comment on above: Result Comment: Canc elled via OM: Order cancelled - Patient discharged Performed By: #### L 501.080 #### [facility] [address] [place], [address] GAP Normal 5-15 [facility] Comment on above: Result Comment: Canc elled via OM: Order cancelled - Patient discharged Performed By: #### L 501.080 #### [facility] [address] [place], [address] GLU Normal 70-99 [facility] Comment on above: Result Comment: Canc elled via OM: Order cancelled - Patient discharged Performed By: #### L 501.080 #### [facility] [address] [place], [address] Potassium Normal 3.3-5.1 [facility] Comment on above: Result Comment: Canc elled via OM: Order cancelled - Patient discharged Performed By: #### L 501.080 #### [facility] [address] [place], [address] Basic Metabolic Profile (BMP) Normal 133-145 [facility] Comment on above: Result Comment: Canc elled via OM: Order cancelled - Patient discharged Performed By: #### L 501.080 #### [facility] [address] [place], [address] CBC W/Diff, Automatedon 08- Absolute Neut Normal 2.0-7.7 [facility] Comment on above: Result Comment: Canc elled via OM: Order cancelled - Patient discharged Performed By: #### L 501.080 #### [facility] [address] [place], [address] HCT Normal 40-54 [facility] Comment on above: Result Comment: Canc elled via OM: Order cancelled - Patient discharged Performed By: #### L 501.080 #### [facility] [address] [place], [address] HGB Normal 13.0-16.5 [facility] Comment on above: Result Comment: Canc elled via OM: Order cancelled - Patient discharged Performed By: #### L 501.080 #### [facility] [address] [place], [address] MCH Normal 27.0-32.0 [facility] Comment on above: Result Comment: Canc elled via OM: Order cancelled - Patient discharged Performed By: #### L 501.080 #### [facility] [address] [place], [address] MCHC Normal 32-36 [facility] Comment on above: Result Comment: Canc elled via OM: Order cancelled - Patient discharged Performed By: #### L 501.080 #### [facility] [address] [place], [address] MCV Normal 80-94 [facility] Comment on above: Result Comment: Canc elled via OM: Order cancelled - Patient discharged Performed By: #### L 501.080 #### [facility] [address] [place], [address] NEUT% Normal 47-70 [facility] Comment on above: Result Comment: Canc elled via OM: Order cancelled - Patient discharged Performed By: #### L 501.080 #### [facility] [address] [place], [address] PLT Normal 150-450 [facility] Comment on above: Result Comment: Canc elled via OM: Order cancelled - Patient discharged Performed By: #### L 501.080 #### [facility] [address] [place], [address] RBC Normal 4.6-6.2 [facility] Comment on above: Result Comment: Canc elled via OM: Order cancelled - Patient discharged Performed By: #### L 501.080 #### [facility] [address] [place], [address] RDW CV Normal 11.6-14.6 [facility] Comment on above: Result Comment: Canc elled via OM: Order cancelled - Patient discharged Performed By: #### L 501.080 #### [facility] [address] [place], [address] RDW SD Normal 35.1-43.9 [facility] Comment on above: Result Comment: Canc elled via OM: Order cancelled - Patient discharged Performed By: #### L 501.080 #### [facility] [address] [place], [address] WBC Normal 4.4-11.0 [facility] Comment on above: Result Comment: Canc elled via OM: Order cancelled - Patient discharged Performed By: #### L 501.080 #### [facility] [address] [place], [address] Urine Cultureon 12-14-2024 URC #2 Identification and sensitivity to follow. Urine Culture Pseudomonas aeruginosa Palmer Count >100,000 Staphylococcus aureus Staphylococcus aureus [facility] Palmer Count 11,000-25,000 [facility] Poss Enterococcus sp Ciprofloxacin Islt CARRILLO 0.25 levoFLOXacin Islt CARRILLO 0.5 S Meropenem Islt CARRILLO 1 Pip+Tazo Islt CARRILLO <=4 S Pseudomonas aeruginosa: REACTION Amikacin Islt CARRILLO <=1 S Imipenem Islt CARRILLO 2 S Tobramycin Islt CARRILLO <=1 Staphylococcus aureus: REACTION cefOXitin Susc Islt NEG Doxycycline Islt CARRILLO <=0.5 S Clindamycin.induced Susc Islt Gentamicin Islt CARRILLO <=0.5 S Linezolid Islt CARRILLO 2 S Moxifloxacin Islt CARRILLO <=0.25 S Nitrofurantoin Islt CARRILLO <=16 S Oxacillin Susc Islt 0.5 S Tetracycline Islt CARRILLO <=1 S TMP SMX Islt CARRILLO <=10 S Vancomycin Islt CARRILLO <=0.5 S Normal [facility] Comment on above: Performed By: #### L 501.080 #### [facility] [address] [place], [address] Basic Metabolic Profile (BMP )on 12-11-2024 BUN Normal 4-19 [facility] Comment on above: Result Comment: Canc elled via OM: Order cancelled - Patient discharged Performed By: #### L 501.080 #### [facility] [address] [place], [address] BUN/CRE Normal 10-20 [facility] Comment on above: Result Comment: Canc elled via OM: Order cancelled - Patient discharged Performed By: #### L 501.080 #### [facility] [address] [place], [address] Calcium Normal 7.6-11.0 [facility] Comment on above: Result Comment: Canc elled via OM: Order cancelled - Patient discharged Performed By: #### L 501.080 #### [facility] [address] [place], [address] CL Normal 98-108 [facility] Comment on above: Result Comment: Canc elled via OM: Order cancelled - Patient discharged Performed By: #### L 501.080 #### [facility] [address] [place], [address] CO2 Normal 21.0-32.0 [facility] Comment on above: Result Comment: Canc elled via OM: Order cancelled - Patient discharged Performed By: #### L 501.080 #### [facility] [address] [place], [address] CREAT,SERUM Normal 0.70-1.20 [facility] Comment on above: Result Comment: Canc elled via OM: Order cancelled - Patient discharged Performed By: #### L 501.080 #### [facility] [address] [place], [address] eGFR Normal >60 [facility] Comment on above: Result Comment: Canc elled via OM: Order cancelled - Patient discharged Performed By: #### L 501.080 #### [facility] [address] [place], [address] GAP Normal 5-15 [facility] Comment on above: Result Comment: Canc elled via OM: Order cancelled - Patient discharged Performed By: #### L 501.080 #### [facility] [address] [place], [address] GLU Normal 70-99 [facility] Comment on above: Result Comment: Canc elled via OM: Order cancelled - Patient discharged Performed By: #### L 501.080 #### [facility] [address] [place], [address] Potassium Normal 3.3-5.1 [facility] Comment on above: Result Comment: Canc elled via OM: Order cancelled - Patient discharged Performed By: #### L 501.080 #### [facility] [address] [place], [address] Basic Metabolic Profile (BMP) Normal 133-145 [facility] Comment on above: Result Comment: Canc elled via OM: Order cancelled - Patient discharged Performed By: #### L 501.080 #### [facility] [address] [place], [address] CBC W/Diff, Automatedon 08-0 8-2024 Absolute Neut Normal 2.0-7.7 [facility] Comment on above: Result Comment: Canc elled via OM: Order cancelled - Patient discharged Performed By: #### L 501.080 #### [facility] [address] [place], [address] HCT Normal 40-54 [facility] Comment on above: Result Comment: Canc elled via OM: Order cancelled - Patient discharged Performed By: #### L 501.080 #### [facility] [address] [place], [address] HGB Normal 13.0-16.5 [facility] Comment on above: Result Comment: Canc elled via OM: Order cancelled - Patient discharged Performed By: #### L 501.080 #### [facility] [address] [place], [address] MCH Normal 27.0-32.0 [facility] Comment on above: Result Comment: Canc elled via OM: Order cancelled - Patient discharged Performed By: #### L 501.080 #### [facility] [address] [place], [address] MCHC Normal 32-36 [facility] Comment on above: Result Comment: Canc elled via OM: Order cancelled - Patient discharged Performed By: #### L 501.080 #### [facility] [address] [place], [address] MCV Normal 80-94 [facility] Comment on above: Result Comment: Canc elled via OM: Order cancelled - Patient discharged Performed By: #### L 501.080 #### [facility] [address] [place], [address] NEUT% Normal 47-70 [facility] Comment on above: Result Comment: Canc elled via OM: Order cancelled - Patient discharged Performed By: #### L 501.080 #### [facility] [address] [place], [address] PLT Normal 150-450 [facility] Comment on above: Result Comment: Canc elled via OM: Order cancelled - Patient discharged Performed By: #### L 501.080 #### [facility] [address] [place], [address] RBC Normal 4.6-6.2 [facility] Comment on above: Result Comment: Canc elled via OM: Order cancelled - Patient discharged Performed By: #### L 501.080 #### [facility] [address] [place], [address] RDW CV Normal 11.6-14.6 [facility] Comment on above: Result Comment: Canc elled via OM: Order cancelled - Patient discharged Performed By: #### L 501.080 #### [facility] [address] [place], [address] RDW SD Normal 35.1-43.9 [facility] Comment on above: Result Comment: Canc elled via OM: Order cancelled - Patient discharged Performed By: #### L 501.080 #### [facility] [address] [place], [address] WBC Normal 4.4-11.0 [facility] Comment on above: Result Comment: Canc elled via OM: Order cancelled - Patient discharged Performed By: #### L 501.080 #### [facility] [address] [place], [address] Bilirubin Test strip Ql (U)O rdered By: Yasmani Coulter on 12-10-2024 Bilirubin Ql (U) Negative Negative [facility] Ketones Test strip Ql (U)Ord ered By: Yasmani Coulter on 12-10-2024 Ketones Ql (U) Negative Negative [facility] Microscopic analysis of urin e for red blood cells (RBC)Ordered By: Yasmani Coulter on 12-10-2024 Microscopic analysis of urine for red blood cells (RBC) > 100 SEEN /hpf 0-5 [facility] Mucus LM Ql (Urine sed)Order ed By: Yasmani Coulter on 12-10-2024 Mucus Ql (Urine sed) 0 SEEN /hpf [facility] Nitrite Test strip Ql (U)Ord ered By: Yasmani Coulter on 12-10-2024 Nitrite Ql (U) Positive High Negative [facility] Protein Test strip Ql (U)Ord ered By: Yasmani Coulter on 12-10-2024 Protein Ql (U) 500 mg/dl High Negative [facility] Squamous epithelial cells de tection in urine sediment by light microscopyOrdered By: Yasmani Coulter on 12-10-2024 Epithelial cells.squamous LM Ql (Urine sed) 0 SEEN /hpf 0-5 [facility] Urinalysis, Completeon 12-10 BACTERIA 2+ /hpf Normal None Seen [facility] Comment on above: Order Comment: COLOR OF URINE MAY AFFECT DIPSTICK RESULTS.CATHETER SPECIMEN Performed By: #### L 501.080 #### [facility] [address] [facility] [address] RBC > 100 SEEN Normal 0- [facility] Comment on above: Order Comment: COLOR OF URINE MAY AFFECT DIPSTICK RESULTS.CATHETER SPECIMEN Performed By: #### L 501.080 #### [facility] [address] [facility] [address] WBC 50-100 SEEN Normal 0-5 [facility] Comment on above: Order Comment: COLOR OF URINE MAY AFFECT DIPSTICK RESULTS.CATHETER SPECIMEN Performed By: #### L 501.080 #### [facility] [address] [facility] [address] EPI,SQUAMOUS 0 SEEN Normal 0-[address] [place] [address] Comment on above: Order Comment: COLOR OF URINE MAY AFFECT DIPSTICK RESULTS.CATHETER SPECIMEN Performed By: #### L 501.080 #### [facility] [address] [facility] [address] Mucus Ql (Urine sed) 0 SEEN Normal [facility] Comment on above: Order Comment: COLOR OF URINE MAY AFFECT DIPSTICK RESULTS.CATHETER SPECIMEN Performed By: #### L 501.080 #### [facility] [address] [place], [place], [address] Urine clarityOrdered By: Richy Coulter on 12-10-2024 Clarity (U) Turbid Clear [facility] Urine color determinationOrd ered By: Yasmani Coulter on 12-10-2024 Color (U) Marybeth Yellow [facility] Urine cultureOrdered By: Richy Coulter on 12-10-2024 Bacteria identified Cx Nom (U) Pseudomonas aeruginosa Abnormal [facility] Bacteria identified Cx Nom (U) Staphylococcus aureus Abnormal [facility] Bacteria identified Cx Nom (U) Enterococcus faecalis Abnormal [facility] Urine glucose detectionOrder ed By: Yasmani Coulter on 12-10-2024 Glucose Ql (U) Normal mg/dl Normal [facility] Urine leukocyte esterase det ection by dipstickOrdered By: Yasmani Coulter on 12-10-2024 Leukocyte esterase Test strip Ql (U) 500 /ul High Negative [facility] Urine pHOrdered By: Yasmani scherer on 12-10-2024 pH (U) 7.0 [pH] 5.0 - 8.0 [facility] Urine sediment bacteria coun t by microscopy (number/high power field)Ordered By: Yasmani Coulter on 12-10-2024 Bacteria LM.HPF (Urine sed) [#/Area] 2 /[HPF] None Seen [facility] Urine specific gravity measu rementOrdered By: Yasmani Coulter on 12-10-2024 Specific gravity (U) [Rel density] 1.015 1.002-1.030 [facility] Urine urobilinogen measureme ntOrdered By: Yasmani Coulter on 12-10-2024 Urobilinogen Ql (U) Normal mg/dl Normal [facility] White blood cell countOrdere d By: Yasmani Coulter on 12-10-2024 White blood cell count 50-100 SEEN /hpf 0-5 [facility] Basic Metabolic Profile (BMP )on 12-04-2024 BUN Normal 4-19 [facility] Comment on above: Result Comment: Canc elled via OM: Order cancelled - Patient discharged Performed By: #### L 400.0001, #### [facility] [address] [place], [address] BUN/CRE Normal 10-20 [facility] Comment on above: Result Comment: Canc elled via OM: Order cancelled - Patient discharged Performed By: #### L 400.0001, #### [facility] [address] [place], [address] Calcium Normal 7.6-11.0 [facility] Comment on above: Result Comment: Canc elled via OM: Order cancelled - Patient discharged Performed By: #### L 400.0001, #### [facility] [address] [place], [address] CL Normal 98-108 [facility] Comment on above: Result Comment: Canc elled via OM: Order cancelled - Patient discharged Performed By: #### L 400.0001, #### [facility] [address] [place], [address] CO2 Normal 21.0-32.0 [facility] Comment on above: Result Comment: Canc elled via OM: Order cancelled - Patient discharged Performed By: #### L 400.0001, #### [facility] [address] [place], [address] CREAT,SERUM Normal 0.70-1.20 [facility] Comment on above: Result Comment: Canc elled via OM: Order cancelled - Patient discharged Performed By: #### L 400.0001, #### [facility] [address] [place], [address] eGFR Normal >60 [facility] Comment on above: Result Comment: Canc elled via OM: Order cancelled - Patient discharged Performed By: #### L 400.0001, M100.2200 #### [facility] [address] [place], [address] GAP Normal 5-15 [facility] Comment on above: Result Comment: Canc elled via OM: Order cancelled - Patient discharged Performed By: #### L 400.0001, M100.2200 #### [facility] [address] [place], [address] GLU Normal 70-99 [facility] Comment on above: Result Comment: Canc elled via OM: Order cancelled - Patient discharged Performed By: #### L 400.0001, M100.0 #### [facility] [address] [place], [address] Potassium Normal 3.3-5.1 [facility] Comment on above: Result Comment: Canc elled via OM: Order cancelled - Patient discharged Performed By: #### L 400.0001, M100.0 #### [facility] [address] [place], [address] Basic Metabolic Profile (BMP) Normal 133-145 [facility] Comment on above: Result Comment: Canc elled via OM: Order cancelled - Patient discharged Performed By: #### L 400.0001, M100.2200 #### [facility] [address] [place], [address] CBC W/Diff, Automatedon 08-0 -2024 Absolute Neut Normal 2.0-7.7 [facility] Comment on above: Result Comment: Canc elled via OM: Order cancelled - Patient discharged Performed By: #### L 400.0001, M100.2200 #### [facility] [address] [place], [address] HCT Normal 40-54 [facility] Comment on above: Result Comment: Canc elled via OM: Order cancelled - Patient discharged Performed By: #### L 400.0001, M100.0 #### [facility] [address] [place], [address] HGB Normal 13.0-16.5 [facility] Comment on above: Result Comment: Canc elled via OM: Order cancelled - Patient discharged Performed By: #### L 400.0001, M100.2200 #### [facility] [address] [place], [address] MCH Normal 27.0-32.0 [facility] Comment on above: Result Comment: Canc elled via OM: Order cancelled - Patient discharged Performed By: #### L 400.0001, M1.0 #### [facility] [address] [place], [address] MCHC Normal 32-36 [facility] Comment on above: Result Comment: Canc elled via OM: Order cancelled - Patient discharged Performed By: #### L 400.0001, M1.0 #### [facility] [address] [place], [address] MCV Normal 80-94 [facility] Comment on above: Result Comment: Canc elled via OM: Order cancelled - Patient discharged Performed By: #### L 400.0001, M100.0 #### [facility] [address] [place], [address] NEUT% Normal 47-70 [facility] Comment on above: Result Comment: Canc elled via OM: Order cancelled - Patient discharged Performed By: #### L 400.0001, M100.0 #### [facility] [address] [place], [address] PLT Normal 150-450 [facility] Comment on above: Result Comment: Canc elled via OM: Order cancelled - Patient discharged Performed By: #### L 400.0001, M100.2200 #### [facility] [address] [place], [address] RBC Normal 4.6-6.2 [facility] Comment on above: Result Comment: Canc elled via OM: Order cancelled - Patient discharged Performed By: #### L 400.0001, M100.2200 #### [facility] [address] [place], [address] RDW CV Normal 11.6-14.6 [facility] Comment on above: Result Comment: Canc elled via OM: Order cancelled - Patient discharged Performed By: #### L 400.0001, M100.2200 #### [facility] [address] [place], [address] RDW SD Normal 35.1-43.9 [facility] Comment on above: Result Comment: Canc elled via OM: Order cancelled - Patient discharged Performed By: #### L 400.0001, M100.2200 #### [facility] [address] [place], [address] WBC Normal 4.4-11.0 [facility] Comment on above: Result Comment: Canc elled via OM: Order cancelled - Patient discharged Performed By: #### L 400.0001, M100.2200 #### [facility] [address] [place], [address] Basic Metabolic Profile (BMP )on 11-27-2024 BUN Normal 4-19 [facility] Comment on above: Result Comment: Canc elled via OM: Order cancelled - Patient discharged Performed By: #### L 501.080 #### [facility] [address] [place], [address] BUN/CRE Normal 10-20 [facility] Comment on above: Result Comment: Canc elled via OM: Order cancelled - Patient discharged Performed By: #### L 501.080 #### [facility] [address] [place], [address] Calcium Normal 7.6-11.0 [facility] Comment on above: Result Comment: Canc elled via OM: Order cancelled - Patient discharged Performed By: #### L 501.080 #### [facility] [address] [place], [address] CL Normal 98-108 [facility] Comment on above: Result Comment: Canc elled via OM: Order cancelled - Patient discharged Performed By: #### L 501.080 #### [facility] [address] [place], [address] CO2 Normal 21.0-32.0 [facility] Comment on above: Result Comment: Canc elled via OM: Order cancelled - Patient discharged Performed By: #### L 501.080 #### [facility] [address] [place], [address] CREAT,SERUM Normal 0.70-1.20 [facility] Comment on above: Result Comment: Canc elled via OM: Order cancelled - Patient discharged Performed By: #### L 501.080 #### [facility] [address] [place], [address] eGFR Normal >60 [facility] Comment on above: Result Comment: Canc elled via OM: Order cancelled - Patient discharged Performed By: #### L 501.080 #### [facility] [address] [place], [address] GAP Normal 5-15 [facility] Comment on above: Result Comment: Canc elled via OM: Order cancelled - Patient discharged Performed By: #### L 501.080 #### [facility] [address] [place], [address] GLU Normal 70-99 [facility] Comment on above: Result Comment: Canc elled via OM: Order cancelled - Patient discharged Performed By: #### L 501.080 #### [facility] [address] [place], [address] Potassium Normal 3.3-5.1 [facility] Comment on above: Result Comment: Canc elled via OM: Order cancelled - Patient discharged Performed By: #### L 501.080 #### [facility] [address] [place], [address] Basic Metabolic Profile (BMP) Normal 133-145 [facility] Comment on above: Result Comment: Canc elled via OM: Order cancelled - Patient discharged Performed By: #### L 501.080 #### [facility] [address] [place], [address] CBC W/Diff, Automatedon 07-2 -2024 Absolute Neut Normal 2.0-7.7 [facility] Comment on above: Result Comment: Canc elled via OM: Order cancelled - Patient discharged Performed By: #### L 501.080 #### [facility] [address] [place], [address] HCT Normal 40-54 [facility] Comment on above: Result Comment: Canc elled via OM: Order cancelled - Patient discharged Performed By: #### L 501.080 #### [facility] [address] [place], [address] HGB Normal 13.0-16.5 [facility] Comment on above: Result Comment: Canc elled via OM: Order cancelled - Patient discharged Performed By: #### L 501.080 #### [facility] [address] [place], [address] MCH Normal 27.0-32.0 [facility] Comment on above: Result Comment: Canc elled via OM: Order cancelled - Patient discharged Performed By: #### L 501.080 #### [facility] [address] [place], [address] MCHC Normal 32-36 [facility] Comment on above: Result Comment: Canc elled via OM: Order cancelled - Patient discharged Performed By: #### L 501.080 #### [facility] [address] [place], [address] MCV Normal 80-94 [facility] Comment on above: Result Comment: Canc elled via OM: Order cancelled - Patient discharged Performed By: #### L 501.080 #### [facility] [address] [place], [address] NEUT% Normal 47-70 [facility] Comment on above: Result Comment: Canc elled via OM: Order cancelled - Patient discharged Performed By: #### L 501.080 #### [facility] [address] [place], [address] PLT Normal 150-450 [facility] Comment on above: Result Comment: Canc elled via OM: Order cancelled - Patient discharged Performed By: #### L 501.080 #### [facility] [address] [place], [address] RBC Normal 4.6-6.2 [facility] Comment on above: Result Comment: Canc elled via OM: Order cancelled - Patient discharged Performed By: #### L 501.080 #### [facility] [address] [place], [address] RDW CV Normal 11.6-14.6 [facility] Comment on above: Result Comment: Canc elled via OM: Order cancelled - Patient discharged Performed By: #### L 501.080 #### [facility] [address] [place], [address] RDW SD Normal 35.1-43.9 [facility] Comment on above: Result Comment: Canc elled via OM: Order cancelled - Patient discharged Performed By: #### L 501.080 #### [facility] [address] [place], [place], [address] WBC Normal 4.4-11.0 [facility] Comment on above: Result Comment: Canc elled via OM: Order cancelled - Patient discharged Performed By: #### L 501.080 #### [facility] [address] [place], [place], [id number] Anion gap in Serum or Plasma Ordered By: Yasmani Coulter on 11-23-2024 Anion gap [Moles/Vol] 11 mmol/L - [facility] BUN/creatinine ratioOrdered By: Yasmani Coulter on 11-23-2024 Urea nitrogen/Creatinine [Mass ratio] 15.4 mg/mg - [facility] Bilirubin, totalOrdered By: Yasmani Coulter on 11-23-2024 Bilirubin [Mass/Vol] 0.42 mg/dL 0.00-1.30 [facility] Calculated very low density lipoprotein (VLDL) cholesterol measurementOrdered By: Yasmani Coulter on 11-23-2024 Calculated very low density lipoprotein (VLDL) cholesterol measurement 15 mg/dL [facility] Carbon dioxide, total [Moles /volume] in Central venous bloodOrdered By: Yasmani Coulter on 11-23-2024 CO2 [Moles/Vol] 25.0 mmol/L 21.0-32.0 [facility] Chloride assayOrdered By: Ramon Coulter on 11-23-2024 Chloride [Moles/Vol] 97 mmol/L Low 98-108 [facility] Glomerular filtration rate ( GFR) estimation/1.73 sq m using serum, plasma, or whole bOrdered By: Yasmani Coulter on 11-23-2024 GFR/1.73 sq M.predicted among non-blacks MDRD (S/P/Bld) [Vol rate/Area] 94 mL/min/{1.73_m2} >60 [facility] Comment on above: mL/min/1.73m2 CKD-EP I Creatinine Equation (2020) Hemoglobin A1c percentageOrd ered By: Yasmani Coulter on 11-23-2024 HbA1c (Bld) [Mass fraction] 6.8 % High <5.7 [facility] Comment on above: Normal < 5.7 % Predi abetic 5.7 - 6.4 % Diabetic >or= 6.5 % Please note range changes. LDL calc ser/plasOrdered By: Yasmani Coulter on 11-23-2024 Cholesterol in LDL [Mass/Vol] 43 mg/dL [facility] Comment on above: Qujcjhhnuz=726-149 m g/dL & Higher Zbcw=426 mg/dL or greater Laboratory - Chemistry and C hemistry - challengeOrdered By: Yasmani Coulter on 11-23-2024 AST [Catalytic activity/Vol] 14 U/L <38 [facility] Potassium measurement (mass/ volume)Ordered By: Yasmani Coulter on 11-23-2024 Potassium (Unsp spec) [Mass/Vol] 3.9 mmol/L 3.3-5.1 [facility] Screening total cholesterol/ high density lipoprotein (HDL) cholesterol ratioOrdered By: Yasmani Coulter on 11-23-2024 Cholesterol.total/Cherelle sterol in HDL [Mass ratio] 1.94 {ratio} [facility] Serum creatinine measurement (mass/volume)Ordered By: Yasmani Coulter on 11-23-2024 Creatinine [Mass/Vol] 0.62 mg/dL Low 0.70-1.20 [facility] Serum globulin measurementOr dered By: Yasmani Coulter on 11-23-2024 Globulin (S) [Mass/Vol] 2.2 g/dL 2.2-4.2 [facility] Serum glucose measurement (m ass/volume)Ordered By: Yasmani Coulter on 11-23-2024 Glucose [Mass/Vol] 124 mg/dL High 70-99 [facility] Serum or plasma alanine ho otransferase (ALT) measurementOrdered By: Yasmani Coulter on 11-23-2024 ALT [Catalytic activity/Vol] 9 U/L <47 [facility] Serum or plasma albumin les urement (mass/volume)Ordered By: Yasmani Coulter on 11-23-2024 Albumin [Mass/Vol] 4.0 g/dL 3.4-4.8 [facility] Serum or plasma albumin/glob ulin mass ratioOrdered By: Yasmani Coulter on 11-23-2024 Albumin/Globulin [Mass ratio] 1.8 {ratio} 0.9-2.4 [facility] Serum or plasma alkaline radha sphatase measurementOrdered By: Yasmani Coulter on 11-23-2024 ALP [Catalytic activity/Vol] 86 U/L 40-129 [facility] Serum or plasma calcium les urement (mass/volume)Ordered By: Yasmani Coulter on 11-23-2024 Calcium [Mass/Vol] 9.6 mg/dL 7.6-11.0 [facility] Serum or plasma cholesterol in HDL measurement (mass/volume)Ordered By: Yasmani Coulter on 11-23-2024 Cholesterol in HDL [Mass/Vol] 61 mg/dL >40 [facility] Comment on above: National Cholesterol Education Program (NCEP) guidelines:<40 mg/dL: Low HDL-cholesterol (major risk factor for CHD)>= 60 mg/dL: High HDL-cholesterol (negative risk factor for CHD)HDL-cholesterol is affected by a number of factors, e.g. smoking, exercise, hormones, sex and age. Serum or plasma cholesterol measurement (mass/volume)Ordered By: Yasmani Coulter on 11-23-2024 Cholesterol [Mass/Vol] 119 mg/dL <201 [facility] Comment on above: Cholesterol level, D esirable <200 mg/dLBorderline high cholesterol 200-239 mg/dLHigh cholesterol >=240 mg/dLRecommendations of the NCEP Adult Treatment Panel for the following risk-cutoff thresholds for the [place] population. Serum or plasma urea nitroge n measurement (mass/volume)Ordered By: Yasmani Coulter on 11-23-2024 Urea nitrogen [Mass/Vol] 9 mg/dL 4-19 [facility] Sodium levelOrdered By: Thai Coulter on 11-23-2024 Sodium [Moles/Vol] 133 mmol/L 133-145 [facility] TSH DL <= 0.005 mIU/L QnOrde red By: Yasmani Coulter on 11-23-2024 TSH Qn 3.380 uIU/mL 0.300-4.200 [facility] ThyroxineOrdered By: Yasmani braun on 11-23-2024 T4 [Mass/Vol] 7.4 ug/dL 4.5-12.1 [facility] Total proteinOrdered By: Richy Coulter on 11-23-2024 Protein [Mass/Vol] 6.2 g/dL 5.9-8.4 [facility] Triglycerides measurementOrd ered By: Yasmani Coulter on 11-23-2024 Triglyceride [Mass/Vol] 73 mg/dL <199 [facility] Comment on above: The drugs N-Acetylcy steine and Metamizole may falsely depress this assay. Normal range: <150 mg/dLBorderline High: 150-199 mg/dLHigh: 200-499 mg/dLVery High: >500 mg/dL Basic Metabolic Profile (BMP )on 11-20-2024 BUN Normal 4-19 [facility] Comment on above: Result Comment: Canc elled via OM: Order cancelled - Patient discharged Performed By: #### L 501.080 #### [facility] [address] [place], [address] BUN/CRE Normal 10-20 [facility] Comment on above: Result Comment: Canc elled via OM: Order cancelled - Patient discharged Performed By: #### L 501.080 #### [facility] [address] [place], [address] Calcium Normal 7.6-11.0 [facility] Comment on above: Result Comment: Canc elled via OM: Order cancelled - Patient discharged Performed By: #### L 501.080 #### [facility] [address] [place], [address] CL Normal 98-108 [facility] Comment on above: Result Comment: Canc elled via OM: Order cancelled - Patient discharged Performed By: #### L 501.080 #### [facility] [address] [place], [address] CO2 Normal 21.0-32.0 [facility] Comment on above: Result Comment: Canc elled via OM: Order cancelled - Patient discharged Performed By: #### L 501.080 #### [facility] [address] [place], [address] CREAT,SERUM Normal 0.70-1.20 [facility] Comment on above: Result Comment: Canc elled via OM: Order cancelled - Patient discharged Performed By: #### L 501.080 #### [facility] [address] [place], [address] eGFR Normal >60 [facility] Comment on above: Result Comment: Canc elled via OM: Order cancelled - Patient discharged Performed By: #### L 501.080 #### [facility] [address] [place], [address] GAP Normal 5-15 [facility] Comment on above: Result Comment: Canc elled via OM: Order cancelled - Patient discharged Performed By: #### L 501.080 #### [facility] [address] [place], [address] GLU Normal 70-99 [facility] Comment on above: Result Comment: Canc elled via OM: Order cancelled - Patient discharged Performed By: #### L 501.080 #### [facility] [address] [place], [address] Potassium Normal 3.3-5.1 [facility] Comment on above: Result Comment: Canc elled via OM: Order cancelled - Patient discharged Performed By: #### L 501.080 #### [facility] [address] [place], [address] Basic Metabolic Profile (BMP) Normal 133-145 [facility] Comment on above: Result Comment: Canc elled via OM: Order cancelled - Patient discharged Performed By: #### L 501.080 #### [facility] [address] [place], [address] CBC W/Diff, Automatedon - Absolute Neut Normal 2.0-7.7 [facility] Comment on above: Result Comment: Canc elled via OM: Order cancelled - Patient discharged Performed By: #### L 501.080 #### [facility] [address] [place], [address] HCT Normal 40-54 [facility] Comment on above: Result Comment: Canc elled via OM: Order cancelled - Patient discharged Performed By: #### L 501.080 #### [facility] [address] [place], [address] HGB Normal 13.0-16.5 [facility] Comment on above: Result Comment: Canc elled via OM: Order cancelled - Patient discharged Performed By: #### L 501.080 #### [facility] [address] [place], [address] MCH Normal 27.0-32.0 [facility] Comment on above: Result Comment: Canc elled via OM: Order cancelled - Patient discharged Performed By: #### L 501.080 #### [facility] [address] [place], [address] MCHC Normal 32-36 [facility] Comment on above: Result Comment: Canc elled via OM: Order cancelled - Patient discharged Performed By: #### L 501.080 #### [facility] [address] [place], [address] MCV Normal 80-94 [facility] Comment on above: Result Comment: Canc elled via OM: Order cancelled - Patient discharged Performed By: #### L 501.080 #### [facility] [address] [place], [address] NEUT% Normal 47-70 [facility] Comment on above: Result Comment: Canc elled via OM: Order cancelled - Patient discharged Performed By: #### L 501.080 #### [facility] [address] [place], [address] PLT Normal 150-450 [facility] Comment on above: Result Comment: Canc elled via OM: Order cancelled - Patient discharged Performed By: #### L 501.080 #### [facility] [address] [place], [address] RBC Normal 4.6-6.2 [facility] Comment on above: Result Comment: Canc elled via OM: Order cancelled - Patient discharged Performed By: #### L 501.080 #### [facility] [address] [place], [address] RDW CV Normal 11.6-14.6 [facility] Comment on above: Result Comment: Canc elled via OM: Order cancelled - Patient discharged Performed By: #### L 501.080 #### [facility] [address] [place], [address] RDW SD Normal 35.1-43.9 [facility] Comment on above: Result Comment: Canc elled via OM: Order cancelled - Patient discharged Performed By: #### L 501.080 #### [facility] [address] [place], [address] WBC Normal 4.4-11.0 [facility] Comment on above: Result Comment: Canc elled via OM: Order cancelled - Patient discharged Performed By: #### L 501.080 #### [facility] [address] [place], [address] Absolute lymphocyte countOrd ered By: Juan Reed on 11-13-2024 Lymphocytes Auto (Unsp spec) [#/Vol] 1.50 10*3/uL 0.83-4.51 [facility] Absolute neutrophil countOrd ered By: Juan Reed on 11-13-2024 Neutrophils (Bld) [#/Vol] 2.5 10*3/uL 2.0-7.7 [facility] Anion gap in Serum or Plasma Ordered By: Juan Reed on 11-13-2024 Anion gap [Moles/Vol] 8 mmol/L 5-15 [facility] Automated lymphocyte count a s percentage of total leukocytesOrdered By: Juan Reed on 11-13-2024 Lymphocytes/100 WBC Auto (Unsp spec) 31.3 % 19-41 [facility] BUN/creatinine ratioOrdered By: Juan Derek on 11-13-2024 Urea nitrogen/Creatinine [Mass ratio] 21.8 mg/mg High 10-20 [facility] Basic Metabolic Profile (BMP )on 11-13-2024 BUN/CRE 21.8 RATIO High - [facility] Comment on above: Performed By: #### L 501.080 #### [facility] [address] [place], [address] Calcium [Mass/Vol] 9.2 mg/dL Normal 7.6-11.0 [facility] Comment on above: Performed By: #### L 501.080 #### [facility] [address] [place], [address] Chloride [Moles/Vol] 94 mmol/L Low 98-108 [facility] Comment on above: Performed By: #### L [id number] #### [facility] [address] [place], [address] CO2 [Moles/Vol] 27.1 mmol/L Normal 21.0-32.0 [facility] Comment on above: Performed By: #### L 501.080 #### [facility] [address] [place], [address] Creatinine [Mass/Vol] 0.65 mg/dL Low 0.70-1.20 [facility] Comment on above: Performed By: #### L 501.080 #### [facility] [address] [place], [address] ECRCL 63.12 ml/min Normal 50-250 [facility] Comment on above: Performed By: #### L 501.080 #### [facility] [address] [place], [address] GAP 8 Normal 5-15 [facility] Comment on above: Performed By: #### L 501.080 #### [facility] [address] [place], [address] GFR/1.73 sq M.predicted among non-blacks MDRD (S/P/Bld) [Vol rate/Area] 92 mL/min/{1.73_m2} Normal >60 [facility] Comment on above: Result Comment: mL/m in/1.73m2 CKD-EPI Creatinine Equation (2020) Performed By: #### L 501.080 #### [facility] [address] [place], [address] Glucose [Mass/Vol] 122 mg/dL High 70-99 [facility] Comment on above: Performed By: #### L 501.080 #### [facility] [address] [place], [address] Potassium [Moles/Vol] 3.9 mmol/L Normal 3.3-5.1 [facility] Comment on above: Performed By: #### L 501.080 #### [facility] [address] [place], [address] Sodium [Moles/Vol] 128 mmol/L Low 133-145 [facility] Comment on above: Performed By: #### L 501.080 #### [facility] [address] [place], [address] Urea nitrogen [Mass/Vol] 14 mg/dL Normal 4-19 [facility] Comment on above: Performed By: #### L 501.080 #### [facility] [address] [place], [address] Basophil percentageOrdered B y: Juan Reed on 11-13-2024 Basophils/100 WBC (Bld) 0.8 % 0-1 [facility] Bedside Glucoseon 11-13-2024 FINGERSTICK GLU 137 mg/dL High 74-106 [facility] Comment on above: Result Comment: PERCY READ OF PATIENT CARE PER NURSING PROTOCOL Performed By: #### L 501.080 #### [facility] [address] [place], [address] CBC W/Diff, Automatedon 07-05 06-2024 Absolute Lymph 1.50 X10 3/uL Normal 0.83-4.51 [facility] Comment on above: Performed By: #### L 501.080 #### [facility] [address] [place], [address] Absolute Neut 2.5 X10 3/uL Normal 2.0-7.7 [facility] Comment on above: Performed By: #### L 501.080 #### [facility] [address] [place], [address] Basophils/100 WBC (Bld) 0.8 % Normal 0-1 [facility] Comment on above: Performed By: #### L 501.080 #### [facility] [address] [place], [address] Eosinophils/100 WBC (Bld) 4.6 % Normal 0-5 [facility] Comment on above: Performed By: #### L 501.080 #### [facility] [address] [place], [address] Erythrocyte distribution width (RBC) [Ratio] 14.4 % Normal 11.6-14.6 [facility] Comment on above: Performed By: #### L 501.080 #### [facility] [address] [place], [address] Hematocrit (Bld) [Volume fraction] 32.3 % Low 40-54 [facility] Comment on above: Performed By: #### L 501.080 #### [facility] [address] [place], [address] Hemoglobin (Bld) [Mass/Vol] 10.9 g/dL Low 13.0-16.5 [facility] Comment on above: Performed By: #### L 501.080 #### [facility] [address] [place], [address] IG% 0.600 Normal 0.0-0.9 [facility] Comment on above: Result Comment: IG% - Immature Granulocytes (promyelocytes, myelocytes and metamyelocytes) > 1% indicates that a LEFT SHIFT is Present. Performed By: #### L 501.080 #### [facility] [address] [place], [address] Lymphocytes/100 WBC (Bld) 31.3 % Normal 19-41 [facility] Comment on above: Performed By: #### L 501.080 #### [facility] [address] [place], [address] MCH (RBC) [Entitic mass] 31.1 pg Normal 27.0-32.0 [facility] Comment on above: Performed By: #### L 501.080 #### [facility] [address] [place], [address] MCHC (RBC) [Mass/Vol] 33.7 g/dL Normal 32-36 [facility] Comment on above: Performed By: #### L 501.080 #### [facility] [address] [place], [address] MCV (RBC) [Entitic vol] 92.0 fL Normal 80-94 [facility] Comment on above: Performed By: #### L [id number] #### [facility] [address] [place], [address] Monocytes/100 WBC (Bld) 9.8 % Normal 0-10 [facility] Comment on above: Performed By: #### L 501.080 #### [facility] [address] [place], [address] Neutrophils/100 WBC (Bld) 52.9 % Normal 47-70 [facility] Comment on above: Performed By: #### L 501.080 #### [facility] [address] [place], [address] Nucleated RBC (Bld) [#/Vol] 0 10*3/uL Normal 0-5 [facility] Comment on above: Performed By: #### L 501.080 #### [facility] [address] [place], [address] Platelet mean volume (Bld) [Entitic vol] 9.9 fL Normal 6.2-12.0 [facility] Comment on above: Performed By: #### L 501.080 #### [facility] [address] [place], [address] Platelets (Bld) [#/Vol] 253 10*3/uL Normal 150-450 [facility] Comment on above: Performed By: #### L 501.080 #### [facility] [address] [place], [address] RBC (Bld) [#/Vol] 3.51 10*6/uL Low 4.6-6.2 [facility] Comment on above: Performed By: #### L 501.080 #### [facility] [address] [place], [address] RDW SD 47.9 fl High 35.1-43.9 [facility] Comment on above: Performed By: #### L 501.080 #### [facility] [address] [place], [address] WBC (Bld) [#/Vol] 4.8 10*3/uL Normal 4.4-11.0 [facility] Comment on above: Performed By: #### L 501.080 #### [facility] [address] [place], [address] Carbon dioxide, total [Moles /volume] in Central venous bloodOrdered By: Juan Reed on 11-13-2024 CO2 [Moles/Vol] 27.1 mmol/L 21.0-32.0 [facility] Chloride assayOrdered By: Jakob Reed on 11-13-2024 Chloride [Moles/Vol] 94 mmol/L Low 98-108 [facility] Eosinophil percentageOrdered By: Juan Reed on 11-13-2024 Eosinophils/100 WBC (Bld) 4.6 % 0-5 [facility] Erythrocyte distribution wid th ratioOrdered By: Juan Reed on 11-13-2024 Erythrocyte distribution width (RBC) [Ratio] 14.4 % 11.6-14.6 [facility] Erythrocyte distribution wid th standard deviationOrdered By: Juan Reed 11-13-2024 Erythrocyte distribution width (RBC) [Ratio] 47.9 fl High 35.1-43.9 [facility] Glomerular filtration rate ( GFR) estimation/1.73 sq m using serum, plasma, or whole bOrdered By: Juan Reed on 11-13-2024 GFR/1.73 sq M.predicted among non-blacks MDRD (S/P/Bld) [Vol rate/Area] 92 mL/min/{1.73_m2} >60 [facility] Comment on above: mL/min/1.73m2 CKD-EP I Creatinine Equation (2020) [facility]dered By: Juan Reed 11-13-2024 Glucose [Mass/Vol] 137 mg/dL High 74-106 [facility] Comment on above: MANAGEMENT OF PATIEN T CARE PER NURSING PROTOCOL Hematocrit Auto (Bld) [Volum e fraction]Ordered By: Juan Reed on 11-13-2024 Hematocrit (Bld) [Volume fraction] 32.3 % Low 40-54 [facility] Hemoglobin measurementOrdere d By: Juan Reed 11-13-2024 Hemoglobin (Bld) [Mass/Vol] 10.9 g/dL Low 13.0-16.5 [facility] Immature granulocytes/100 WB C Auto (Bld)Ordered By: Juan Reed 11-13-2024 Immature granulocytes/100 WBC (Bld) 0.600 % 0.0-0.9 [facility] Comment on above: IG% - Immature Granu locytes (promyelocytes, myelocytes and metamyelocytes) > 1% indicates that a LEFT SHIFT is Present. MCV (mean corpuscular volume ) determinationOrdered By: Juan Derek on 11-13-2024 MCV (RBC) [Entitic vol] 92.0 fL 80-94 [facility] Mean corpuscular hemoglobin (MCH) determinationOrdered By: [facility] on 11-13-2024 MCH (RBC) [Entitic mass] 31.1 pg 27.0-32.0 [facility] Mean corpuscular hemoglobin concentration (MCHC) determinationOrdered By: [facility] on 11-13-2024 MCHC (RBC) [Mass/Vol] 33.7 g/dL 32-36 [facility] Mean platelet volume determi nationOrdered By: [facility] 11-13-2024 Platelet mean volume (Bld) [Entitic vol] 9.9 fL 6.2-12.0 [facility] Monocyte percentageOrdered B y: [facility] on 11-13-2024 Monocytes/100 WBC (Bld) 9.8 % 0-10 [facility] Neutrophil percentageOrdered By: [facility] 11-13-2024 Neutrophils/100 WBC (Bld) 52.9 % 47-70 [facility] Nucleated red blood cell per centageOrdered By: [facility] 11-13-2024 Nucleated RBC/100 WBC (Bld) [Ratio] 0 % 0-5 [facility] Osmolality urOrdered By: Juan Derek on 11-13-2024 Osmolality (U) [Osmolality] 406 mOsm/KG >50 [facility] Comment on above: Normal Urine Referen ce Ranges Random: 50 - 1200 mOsm/kg H20 depending on fluid intake Random: >850 mOsm/kg after 12 hour fluid restriction 24 hour: ~300 - 900 mOsm/kg H2O Osmolality, Serumon 11-14-19 25 OSMOLALITY,SER 278 mOsm/KG Low 280-301 [facility] Comment on above: Performed By: #### L 501.7300 #### [facility] [place], [address] Osmolality, Urineon 11-14-19 25 OSMOLALITY,UR 406 mOsm/KG Normal [facility] Comment on above: Result Comment: Normal Urine Reference Ranges Random: 50 - 1200 mOsm/kg H20 depending on fluid intake Random: >850 mOsm/kg after 12 hour fluid restriction 24 hour: 300 - 900 mOsm/kg H2O Performed By: #### L 501.5500, L501.7400 #### [facility] [address] [place], [address] Platelet countOrdered By: Jakob Reed on 11-13-2024 Platelets (Bld) [#/Vol] 253 10*3/uL 150-450 [facility] Potassium measurement (mass/ volume)Ordered By: Juan Reed on 11-13-2024 Potassium (Unsp spec) [Mass/Vol] 3.9 mmol/L 3.3-5.1 [facility] RBC Auto (Bld) [#/Vol]Ordere d By: Juan Reed on 11-13-2024 RBC (Bld) [#/Vol] 3.51 10*6/uL Low 4.6-6.2 [facility] Serum creatinine measurement (mass/volume)Ordered By: Juan Reed on 11-13-2024 Creatinine [Mass/Vol] 0.65 mg/dL Low 0.70-1.20 [facility] Serum glucose measurement (m ass/volume)Ordered By: Juan Reed on 11-13-2024 Glucose [Mass/Vol] 122 mg/dL High 70-99 [facility] Serum or plasma calcium les urement (mass/volume)Ordered By: Juan Reed on 11-13-2024 Calcium [Mass/Vol] 9.2 mg/dL 7.6-11.0 [facility] Serum or plasma urea nitroge n measurement (mass/volume)Ordered By: Juan Reed on 11-13-2024 Urea nitrogen [Mass/Vol] 14 mg/dL 4-19 [facility] Sodium levelOrdered By: Juan Reed on 11-13-2024 Sodium [Moles/Vol] 128 mmol/L Low 133-145 [facility] Urine Sodiumon 11-13-2024 Sodium (U) [Moles/Vol] 51 mmol/L Normal Not Establ. [facility] Comment on above: Performed By: #### L 501.5500, L501.7400 #### [facility] [address] [place], [address] Urine sodium measurement (mo les/volume)Ordered By: Juan Reed on 11-13-2024 Sodium (U) [Moles/Vol] 51 mmol/L Not Establ. [facility] White blood cell (WBC) count Ordered By: Juan Reed on 11-13-2024 WBC (Bld) [#/Vol] 4.8 10*3/uL 4.4-11.0 [facility] Bedside Glucoseon 11-12-2024 FINGERSTICK GLU 137 mg/dL High 74-106 [facility] Comment on above: Result Comment: PERCY GEMENT OF PATIENT CARE PER NURSING PROTOCOL Performed By: #### L 501.080 #### [facility] [address] [facility] [place], [address] Urine Cultureon 11-12-2024 URC Culture exhibits no growth. Normal [facility] Comment on above: Performed By: #### L 400.0001, M100.2200 #### [facility] [address] [place], [address] Amorphous sediment detection in urine sediment by light microscopyOrdered By: Juan Reed on 11-11-2024 Amorphous sediment LM Ql (Urine sed) 3+ [facility] Bedside Glucoseon 11-11-2024 FINGERSTICK GLU 124 mg/dL High 74-106 [facility] Comment on above: Result Comment: PERCY GEMENT OF PATIENT CARE PER NURSING PROTOCOL Performed By: #### L 400.0001, M100.2200 #### [facility] [address] [place], [address] Bilirubin Test strip Ql (U)O rdered By: Juan Reed on 11-11-2024 Bilirubin Ql (U) Negative Negative [facility] Calcium oxalate crystals det ection in urine sediment by light microscopyOrdered By: Juan Reed on 11-11-2024 Calcium oxalate crystals LM Ql (Urine sed) RARE /hpf [facility] Ketones Test strip Ql (U)Ord ered By: Juan Reed on 11-11-2024 Ketones Ql (U) Negative Negative [facility] Microscopic analysis of urin e for red blood cells (RBC)Ordered By: Juan Reed on 11-11-2024 Microscopic analysis of urine for red blood cells (RBC) > 100 SEEN /hpf 0-5 [facility] Mucus LM Ql (Urine sed)Order ed By: Juan Reed on 11-11-2024 Mucus Ql (Urine sed) 0 SEEN /hpf [facility] Nitrite Test strip Ql (U)Ord ered By: Juan Reed on 11-11-2024 Nitrite Ql (U) Negative Negative [facility] Protein Test strip Ql (U)Ord ered By: Juan Reed on 11-11-2024 Protein Ql (U) 30 mg/dl High Negative [facility] Squamous epithelial cells de tection in urine sediment by light microscopyOrdered By: Juan Reed on 11-11-2024 Epithelial cells.squamous LM Ql (Urine sed) 0 SEEN /hpf 0-5 [facility] Urinalysis, Completeon 11-11 AMORPHOUS 3+ Normal [facility] Comment on above: Order Comment: BENNY TER SPECIMEN Performed By: #### L 501.080 #### [facility] [address] [facility] [place], [address] CA OX CRYSTAL RARE Normal [facility] Comment on above: Order Comment: BENNY TER SPECIMEN Performed By: #### L 501.080 #### [facility] [address] [place], [address] WBC 5-10 SEEN Normal 0-5 [facility] Comment on above: Order Comment: BENNY TER SPECIMEN Performed By: #### L 501.080 #### [facility] [address] [place], [address] RBC > 100 SEEN Normal 0-5 [facility] Comment on above: Order Comment: BENNY TER SPECIMEN Performed By: #### L 501.080 #### [facility] [address] [place], [address] BACTERIA 0 SEEN Normal None Seen [facility] Comment on above: Order Comment: BENNY TER SPECIMEN Performed By: #### L 501.080 #### [facility] [address] [place], [address] EPI,SQUAMOUS 0 SEEN Normal 0-5 [facility] Comment on above: Order Comment: BENNY TER SPECIMEN Performed By: #### L 501.080 #### [facility] [address] [place], [address] Mucus Ql (Urine sed) 0 SEEN Normal [facility] Comment on above: Order Comment: BENNY TER SPECIMEN Performed By: #### L 501.080 #### [facility] [address] [place], [place], [address] Urine clarityOrdered By: Juan Reed on 11-11-2024 Clarity (U) Turbid Clear [facility] Urine color determinationOrd ered By: Juan Reed on 11-11-2024 Color (U) Yellow Yellow [facility] Urine cultureOrdered By: Juan Reed on 11-11-2024 Bacteria identified Cx Nom (U) Culture exhibits no growth. [facility] Urine glucose detectionOrder ed By: Juan Reed on 11-11-2024 Glucose Ql (U) Normal mg/dl Normal [facility] Urine leukocyte esterase det ection by dipstickOrdered By: Juan Reed on 11-11-2024 Leukocyte esterase Test strip Ql (U) 25 /ul High Negative [facility] Urine pHOrdered By: Juan Reed on 11-11-2024 pH (U) 7.0 [pH] 5.0 - 8.0 [facility] Urine sediment bacteria coun t by microscopy (number/high power field)Ordered By: Juan Reed on 11-11-2024 Bacteria LM.HPF (Urine sed) [#/Area] 0 /[HPF] None Seen [facility] Urine specific gravity measu rementOrdered By: Juan Reed on 11-11-2024 Specific gravity (U) [Rel density] 1.010 1.002-1.030 [facility] Urine urobilinogen measureme ntOrdered By: Juan Reed on 11-11-2024 Urobilinogen Ql (U) Normal mg/dl Normal [facility] White blood cell countOrdere d By: Juan Reed on 11-11-2024 White blood cell count 5-10 SEEN /hpf 0-5 [facility] Bedside Glucoseon 11-10-2024 FINGERSTICK GLU 112 mg/dL High 74-106 [facility] Comment on above: Result Comment: PERCY GEMENT OF PATIENT CARE PER NURSING PROTOCOL Performed By: #### L 501.080 #### [facility] [address] [place], [address] Bedside Glucoseon 11-09-2024 FINGERSTICK GLU 121 mg/dL High 74-106 [facility] Comment on above: Result Comment: PERCY GEMENT OF PATIENT CARE PER NURSING PROTOCOL Performed By: #### L 501.080 #### [facility] [address] [facility] [address] Bedside Glucoseon 11-08-2024 FINGERSTICK GLU 112 mg/dL High 74-106 [facility] Comment on above: Result Comment: PERCY GEMENT OF PATIENT CARE PER NURSING PROTOCOL Performed By: #### L 501.080 #### [facility] [address] [place], [address] Bedside Glucoseon 11-07-2024 FINGERSTICK GLU 137 mg/dL High 74-106 [facility] Comment on above: Result Comment: PERCY GEMENT OF PATIENT CARE PER NURSING PROTOCOL Performed By: #### L 501.080 #### [facility] [address] [place], [address] Basic Metabolic Profile (BMP )on 11-06-2024 BUN/CRE 23.1 RATIO High 10-20 [facility] Comment on above: Performed By: #### L 501.080 #### [facility] [address] [place], [address] Calcium [Mass/Vol] 9.3 mg/dL Normal 7.6-11.0 [facility] Comment on above: Performed By: #### L 501.080 #### [facility] [address] [place], [address] Chloride [Moles/Vol] 99 mmol/L Normal 98-108 [facility] Comment on above: Performed By: #### L 501.080 #### [facility] [address] [place], [address] CO2 [Moles/Vol] 25.4 mmol/L Normal 21.0-32.0 [facility] Comment on above: Performed By: #### L 501.080 #### [facility] [address] [place], [address] Creatinine [Mass/Vol] 0.68 mg/dL Low 0.70-1.20 [facility] Comment on above: Performed By: #### L 501.080 #### [facility] [address] [place], [address] ECRCL 62.59 ml/min Normal 50-250 [facility] Comment on above: Performed By: #### L 501.080 #### [facility] [address] [place], [address] GAP 9 Normal 5-15 [facility] Comment on above: Performed By: #### L 501.080 #### [facility] [address] [place], [address] GFR/1.73 sq M.predicted among non-blacks MDRD (S/P/Bld) [Vol rate/Area] 91 mL/min/{1.73_m2} Normal >60 [facility] Comment on above: Result Comment: mL/m in/1.73m2 CKD-EPI Creatinine Equation (2020) Performed By: #### L 501.080 #### [facility] [address] [place], [address] Glucose [Mass/Vol] 139 mg/dL High 70-99 [facility] Comment on above: Performed By: #### L 501.080 #### [facility] [address] [place], [address] Potassium [Moles/Vol] 3.9 mmol/L Normal 3.3-5.1 [facility] Comment on above: Performed By: #### L 501.080 #### [facility] [address] [place], [address] Sodium [Moles/Vol] 134 mmol/L Normal 133-145 [facility] Comment on above: Performed By: #### L 501.080 #### [facility] [address] [place], [address] Urea nitrogen [Mass/Vol] 16 mg/dL Normal 4-19 [facility] Comment on above: Performed By: #### L 501.080 #### [facility] [address] [place], [address] Bedside Glucoseon 11-06-2024 FINGERSTICK GLU 148 mg/dL High 74-106 [facility] Comment on above: Result Comment: PERCY READ OF PATIENT CARE PER NURSING PROTOCOL Performed By: #### L 501.080 #### [facility] [address] [place], [address] CBC W/Diff, Automatedon 07-0 Absolute Lymph 1.22 X10 3/uL Normal 0.83-4.51 [facility] Comment on above: Performed By: #### L [id number] #### [facility] [address] [place], [address] Absolute Neut 5.5 X10 3/uL Normal 2.0-7.7 [facility] Comment on above: Performed By: #### L [id number] #### [facility] [address] [place], [address] Basophils/100 WBC (Bld) 0.7 % Normal 0-1 [facility] Comment on above: Performed By: #### L [id number] #### [facility] [address] [place], [address] Eosinophils/100 WBC (Bld) 1.6 % Normal 0-5 [facility] Comment on above: Performed By: #### L 501.080 #### [facility] [address] [place], [address] Erythrocyte distribution width (RBC) [Ratio] 14.1 % Normal 11.6-14.6 [facility] Comment on above: Performed By: #### L 501.080 #### [facility] [address] [place], [address] Hematocrit (Bld) [Volume fraction] 31.9 % Low 40-54 [facility] Comment on above: Performed By: #### L 501.080 #### [facility] [address] [place], [address] Hemoglobin (Bld) [Mass/Vol] 10.8 g/dL Low 13.0-16.5 [facility] Comment on above: Performed By: #### L 501.080 #### [facility] [address] [place], [address] IG% 0.900 Normal 0.0-0.9 [facility] Comment on above: Result Comment: IG% - Immature Granulocytes (promyelocytes, myelocytes and metamyelocytes) > 1% indicates that a LEFT SHIFT is Present. Performed By: #### L 501.080 #### [facility] [address] [place], [address] Lymphocytes/100 WBC (Bld) 16.4 % Low 19-41 [facility] Comment on above: Performed By: #### L 501.080 #### [facility] [address] [place], [address] MCH (RBC) [Entitic mass] 31.3 pg Normal 27.0-32.0 [facility] Comment on above: Performed By: #### L 501.080 #### [facility] [address] [place], [address] MCHC (RBC) [Mass/Vol] 33.9 g/dL Normal 32-36 [facility] Comment on above: Performed By: #### L 501.080 #### [facility] [address] [place], [address] MCV (RBC) [Entitic vol] 92.5 fL Normal 80-94 [facility] Comment on above: Performed By: #### L 501.080 #### [facility] [address] [place], [address] Monocytes/100 WBC (Bld) 6.2 % Normal 0-10 [facility] Comment on above: Performed By: #### L 501.080 #### [facility] [address] [place], [address] Neutrophils/100 WBC (Bld) 74.2 % High 47-70 [facility] Comment on above: Performed By: #### L 501.080 #### [facility] [address] [place], [address] Nucleated RBC (Bld) [#/Vol] 0 10*3/uL Normal 0-5 [facility] Comment on above: Performed By: #### L 501.080 #### [facility] [address] [place], [address] Platelet mean volume (Bld) [Entitic vol] 9.4 fL Normal 6.2-12.0 [facility] Comment on above: Performed By: #### L 501.080 #### [facility] [address] [place], [address] Platelets (Bld) [#/Vol] 360 10*3/uL Normal 150-450 [facility] Comment on above: Performed By: #### L 501.080 #### [facility] [address] [place], [address] RBC (Bld) [#/Vol] 3.45 10*6/uL Low 4.6-6.2 [facility] Comment on above: Performed By: #### L 501.080 #### [facility] [address] [place], [address] RDW SD 47.4 fl High 35.1-43.9 [facility] Comment on above: Performed By: #### L 501.080 #### [facility] [address] [place], [address] WBC (Bld) [#/Vol] 7.5 10*3/uL Normal 4.4-11.0 [facility] Comment on above: Performed By: #### L 501.080 #### [facility] [address] [place], [address] Bedside Glucoseon 11-05-2024 FINGERSTICK GLU 156 mg/dL High 74-106 [facility] Comment on above: Result Comment: PERCY GEMENT OF PATIENT CARE PER NURSING PROTOCOL Performed By: #### L 400.0001, M100.2200 #### [facility] [address] [place], [address] Bedside Glucoseon 11-04-2024 FINGERSTICK GLU 130 mg/dL High 74-106 [facility] Comment on above: Result Comment: PERCY GEMENT OF PATIENT CARE PER NURSING PROTOCOL Performed By: #### L 501.080 #### [facility] [address] [place], [address] Chest PA and Lateralon 11-04 Chest PA and Lateral [facility] [address] [place], [place] [id number] Chest PA and Lateral MR#: [id number] Acct: [id number] Name: TIM ADAMSON Rep #: [id number] : 1940 M 83 From: Forest Isaac MD PCP: VALENTIN Marrufo Status: ADM IN Study: Chest PA and Lateral Date of Exam: 11/04/24 Exam# [id number] Ordering Dr: Juan Reed MD PROCEDURE: CHEST PA AND LATERAL 11/04/2024 REASON FOR EXAM: COUGH. TECHNIQUE: CHEST PA AND LATERAL COMPARISON: None. FINDINGS: The heart is enlarged. Left basilar linear opacity favoring scar or atelectasis. Developing infiltrate is possible. Trace bilateral pleural effusions. No pneumothorax. RAD/Chest PA and Lateral IMPRESSION: As above. Reading Location: [id number] CC: VALENTIN Price; Dr. Juan Reed MD Bookstore Clerk: Signed Normal [facility] Urine Cultureon 11-04-2024 URC Culture exhibits no growth. Normal [facility] Comment on above: Performed By: #### L 400.0001, M100.2200 #### [facility] [address] [place], [address] Urinalysis, Completeon 11-03 Mucus Ql (Urine sed) 1+ /hpf Normal [facility] Comment on above: Order Comment: COLOR OF URINE MAY AFFECT DIPSTICK RESULTS. Microscopic field is filled. Other elements may be obscured. CATHETER SPECIMEN Performed By: #### L 400.0001, M100.2200 #### [facility] [address] [place], [place], [address] WBC 5-10 SEEN Normal 0-5 [facility] Comment on above: Order Comment: COLOR OF URINE MAY AFFECT DIPSTICK RESULTS. Microscopic field is filled. Other elements may be obscured. CATHETER SPECIMEN Performed By: #### L 400.0001, M100.0 #### [facility] [address] [place], [address] BACTERIA 1+ /hpf Normal None Seen [facility] Comment on above: Order Comment: COLOR OF URINE MAY AFFECT DIPSTICK RESULTS. Microscopic field is filled. Other elements may be obscured. CATHETER SPECIMEN Performed By: #### L 400.0001, M100.2200 #### [facility] [address] [place], [address] RBC > 100 SEEN Normal 0-5 [facility] Comment on above: Order Comment: COLOR OF URINE MAY AFFECT DIPSTICK RESULTS. Microscopic field is filled. Other elements may be obscured. CATHETER SPECIMEN Performed By: #### L 400.0001, M100.0 #### [facility] [address] [place], [address] EPI,SQUAMOUS 0 SEEN Normal 0-5 [facility] Comment on above: Order Comment: COLOR OF URINE MAY AFFECT DIPSTICK RESULTS. Microscopic field is filled. Other elements may be obscured. CATHETER SPECIMEN Performed By: #### L 400.0001, M100.0 #### [facility] [address] [place], [address] Urine cultureOrdered By: Juan Reed on 11-03-2024 Bacteria identified Cx Nom (U) Culture exhibits no growth. [facility] Bedside Glucoseon 11-02-2024 FINGERSTICK GLU 156 mg/dL High 74-106 [facility] Comment on above: Result Comment: PERCY GEMENT OF PATIENT CARE PER NURSING PROTOCOL Performed By: #### L 501.080 #### [facility] [address] [place], [address] Bedside Glucoseon 11-01-2024 FINGERSTICK GLU 178 mg/dL High 74-106 [facility] Comment on above: Result Comment: PERCY GEMENT OF PATIENT CARE PER NURSING PROTOCOL Performed By: #### L 501.080 #### [facility] [address] [place], [place], [address] Bedside Glucoseon 10-31-2024 FINGERSTICK GLU 184 mg/dL High 74-106 [facility] Comment on above: Result Comment: PERCY READ OF PATIENT CARE PER NURSING PROTOCOL Performed By: #### L 501.080 #### [facility] [address] [place], [place], [address] Calculated very low density lipoprotein (VLDL) cholesterol measurementOrdered By: Juan Reed on 10-31-2024 Calculated very low density lipoprotein (VLDL) cholesterol measurement 16 mg/dL 5-40 [facility] Hemoglobin A1con 10-31-2024 HbA1c (Bld) [Mass fraction] 7.1 % High <=5.6 [facility] Comment on above: Result Comment: Norm al < 5.7 % Prediabetic 5.7 - 6.4 % Diabetic >or= 6.5 % Please note range changes. Performed By: #### L 500.4100, L506.1001, L501.9985 #### [facility] [address] [place], [place], [id number] Hemoglobin A1c percentageOrd ered By: Juan Reed on 10-31-2024 HbA1c (Bld) [Mass fraction] 7.1 % High <5.7 [facility] Comment on above: Normal < 5.7 % Predi abetic 5.7 - 6.4 % Diabetic >or= 6.5 % Please note range changes. LDL calc ser/plasOrdered By: Juan Reed on 10-31-2024 Cholesterol in LDL [Mass/Vol] 74 mg/dL [facility] Comment on above: Vkgvsxglxv=863-593 m g/dL & Higher Sytc=389 mg/dL or greater Lipid Profileon 10-31-2024 CHOL:HDL 3.59 Normal [facility] Comment on above: Performed By: #### L 400.0001, M100.2200 #### [facility] [address] [place], [place], [id number] Cholesterol [Mass/Vol] 124 mg/dL Normal <=200 [facility] Comment on above: Result Comment: Chol esterol level, Desirable <200 mg/dL Borderline high cholesterol 200-239 mg/dL High cholesterol >=240 mg/dL Recommendations of the NCEP Adult Treatment Panel for the following risk-cutoff thresholds for the [place] population. Performed By: #### L 400.0001, #### [facility] [address] [place], [address] Cholesterol in HDL [Mass/Vol] 35 mg/dL Low [facility] Comment on above: Result Comment: Zahraa onal Cholesterol Education Program (NCEP) guidelines: <40 mg/dL: Low HDL-cholesterol (major risk factor for CHD) >= 60 mg/dL: High HDL-cholesterol (negative risk factor for CHD) HDL-cholesterol is affected by a number of factors, e.g. smoking, exercise, hormones, sex and age. Performed By: #### L 400.0001, #### [facility] [address] [place], [address] Cholesterol in LDL [Mass/Vol] 74 mg/dL Normal [facility] Comment on above: Result Comment: Bord eviway=272-749 mg/dL Higher Os[place]=095 mg/dL or greater Performed By: #### L 400.0001, #### [facility] [address] [place], [address] Cholesterol in VLDL [Mass/Vol] 16 mg/dL Normal 5-40 [facility] Comment on above: Performed By: #### L 400.0001, #### [facility] [address] [place], [address] Triglyceride [Mass/Vol] 79 mg/dL Normal [facility] Comment on above: Result Comment: The drugs N-Acetylcysteine and Metamizole may falsely depress this assay. Normal range: <150 mg/dL Borderline High: 150-199 mg/dL High: 200-499 mg/dL Very High: >500 mg/dL Performed By: #### L 400.0001, M100.2200 #### [facility] [address] [place], [address] Screening total cholesterol/ high density lipoprotein (HDL) cholesterol ratioOrdered By: Juan Reed on 10-31-2024 Cholesterol.total/Cherelle sterol in HDL [Mass ratio] 3.59 {ratio} [facility] Serum or plasma cholesterol in HDL measurement (mass/volume)Ordered By: Juan Reed on 10-31-2024 Cholesterol in HDL [Mass/Vol] 35 mg/dL Low >40 [facility] Comment on above: National Cholesterol Education Program (NCEP) guidelines:<40 mg/dL: Low HDL-cholesterol (major risk factor for CHD)>= 60 mg/dL: High HDL-cholesterol (negative risk factor for CHD)HDL-cholesterol is affected by a number of factors, e.g. smoking, exercise, hormones, sex and age. Serum or plasma cholesterol measurement (mass/volume)Ordered By: Juan Reed on 10-31-2024 Cholesterol [Mass/Vol] 124 mg/dL <201 [facility] Comment on above: Cholesterol level, D esirable <200 mg/dLBorderline high cholesterol 200-239 mg/dLHigh cholesterol >=240 mg/dLRecommendations of the NCEP Adult Treatment Panel for the following risk-cutoff thresholds for the [place] population. Triglycerides measurementOrd ered By: Juan Reed on 10-31-2024 Triglyceride [Mass/Vol] 79 mg/dL <199 [facility] Comment on above: The drugs N-Acetylcy steine and Metamizole may falsely depress this assay. Normal range: <150 mg/dLBorderline High: 150-199 mg/dLHigh: 200-499 mg/dLVery High: >500 mg/dL Vitamin D,25 Hydroxyon 10-31 Vitamin D 25-OH 46.7 ng/mL Normal 30-100 [facility] Comment on above: Result Comment: Whit min D Status Deficiency: <20 ng/mL (50nmol/L) Insufficiency: 20-30 ng/mL (50-75 nmol/L) Sufficiency: 30-100 ng/mL (75-250 nmol/L) Toxicity: >100 ng/mL (>250 nmol/L) Performed By: #### L 400.0001, M100.2200 #### [facility] [address] [place], [address] Basic Metabolic Profile (BMP )on 10-30-2024 BUN/CRE 34.3 RATIO High 10-20 [facility] Comment on above: Performed By: #### L 501.080 #### [facility] [address] [place], [address] Calcium [Mass/Vol] 10.1 mg/dL Normal 7.6-11.0 [facility] Comment on above: Performed By: #### L 501.080 #### [facility] [address] [place], [address] Chloride [Moles/Vol] 93 mmol/L Low 98-108 [facility] Comment on above: Performed By: #### L 501.080 #### [facility] [address] [place], [address] CO2 [Moles/Vol] 27.1 mmol/L Normal 21.0-32.0 [facility] Comment on above: Performed By: #### L 501.080 #### [facility] [address] [place], [address] Creatinine [Mass/Vol] 0.64 mg/dL Low 0.70-1.20 [facility] Comment on above: Performed By: #### L 501.080 #### [facility] [address] [place], [address] ECRCL 63.12 ml/min Normal 50-250 [facility] Comment on above: Performed By: #### L 501.080 #### [facility] [address] [place], [address] GAP 12 Normal 5-15 [facility] Comment on above: Performed By: #### L 501.080 #### [facility] [address] [place], [address] GFR/1.73 sq M.predicted among non-blacks MDRD (S/P/Bld) [Vol rate/Area] 93 mL/min/{1.73_m2} Normal >60 [facility] Comment on above: Result Comment: mL/m in/1.73m2 CKD-EPI Creatinine Equation (2020) Performed By: #### L 501.080 #### [facility] [address] [place], [address] Glucose [Mass/Vol] 194 mg/dL High 70-99 [facility] Comment on above: Performed By: #### L 501.080 #### [facility] [address] [place], [address] Potassium [Moles/Vol] 4.0 mmol/L Normal 3.3-5.1 [facility] Comment on above: Performed By: #### L 501.080 #### [facility] [address] [place], [address] Sodium [Moles/Vol] 132 mmol/L Low 133-145 [facility] Comment on above: Performed By: #### L 501.080 #### [facility] [address] [place], [address] Urea nitrogen [Mass/Vol] 22 mg/dL High 4-19 [facility] Comment on above: Performed By: #### L 501.080 #### [facility] [address] [place], [address] Bedside Glucoseon 10-30-2024 FINGERSTICK GLU 182 mg/dL High 74-106 [facility] Comment on above: Result Comment: PERCY READ OF PATIENT CARE PER NURSING PROTOCOL Performed By: #### L 501.080 #### [facility] [address] [place], [address] CBC W/Diff, Automatedon 06-2 -2024 Absolute Lymph 1.67 X10 3/uL Normal 0.83-4.51 [facility] Comment on above: Performed By: #### L 501.080 #### [facility] [address] [place], [address] Absolute Neut 9.0 X10 3/uL High 2.0-7.7 [facility] Comment on above: Performed By: #### L 501.080 #### [facility] [address] [place], [address] Basophils/100 WBC (Bld) 0.7 % Normal 0-1 [facility] Comment on above: Performed By: #### L 501.080 #### [facility] [address] [place], [address] Eosinophils/100 WBC (Bld) 1.5 % Normal 0-5 [facility] Comment on above: Performed By: #### L 501.080 #### [facility] [address] [place], [address] Erythrocyte distribution width (RBC) [Ratio] 13.6 % Normal 11.6-14.6 [facility] Comment on above: Performed By: #### L 501.080 #### [facility] [address] [place], [address] Hematocrit (Bld) [Volume fraction] 36.9 % Low 40-54 [facility] Comment on above: Performed By: #### L 501.080 #### [facility] [address] [place], [address] Hemoglobin (Bld) [Mass/Vol] 12.6 g/dL Low 13.0-16.5 [facility] Comment on above: Performed By: #### L 501.080 #### [facility] [address] [place], [address] IG% 4.300 High 0.0-0.9 [facility] Comment on above: Result Comment: IG% - Immature Granulocytes (promyelocytes, myelocytes and metamyelocytes) > 1% indicates that a LEFT SHIFT is Present. Performed By: #### L 501.080 #### [facility] [address] [place], [address] Lymphocytes/100 WBC (Bld) 13.8 % Low 19-41 [facility] Comment on above: Performed By: #### L 501.080 #### [facility] [address] [place], [address] MCH (RBC) [Entitic mass] 31.3 pg Normal 27.0-32.0 [facility] Comment on above: Performed By: #### L 501.080 #### [facility] [address] [place], [address] MCHC (RBC) [Mass/Vol] 34.1 g/dL Normal 32-36 [facility] Comment on above: Performed By: #### L 501.080 #### [facility] [address] [place], [address] MCV (RBC) [Entitic vol] 91.8 fL Normal 80-94 [facility] Comment on above: Performed By: #### L 501.080 #### [facility] [address] [place], [address] Monocytes/100 WBC (Bld) 5.3 % Normal 0-10 [facility] Comment on above: Performed By: #### L 501.080 #### [facility] [address] [place], [address] Neutrophils/100 WBC (Bld) 74.4 % High 47-70 [facility] Comment on above: Performed By: #### L 501.080 #### [facility] [address] [place], [address] Nucleated RBC (Bld) [#/Vol] 0 10*3/uL Normal 0-5 [facility] Comment on above: Performed By: #### L 501.080 #### [facility] [address] [place], [address] Platelet mean volume (Bld) [Entitic vol] 9.2 fL Normal 6.2-12.0 [facility] Comment on above: Performed By: #### L 501.080 #### [facility] [address] [place], [address] Platelets (Bld) [#/Vol] 348 10*3/uL Normal 150-450 [facility] Comment on above: Performed By: #### L 501.080 #### [facility] [address] [place], [address] RBC (Bld) [#/Vol] 4.02 10*6/uL Low 4.6-6.2 [facility] Comment on above: Performed By: #### L 501.080 #### [facility] [address] [place], [address] RDW SD 46.5 fl High 35.1-43.9 [facility] Comment on above: Performed By: #### L 501.080 #### [facility] [address] [place], [address] WBC (Bld) [#/Vol] 12.1 10*3/uL High 4.4-11.0 [facility] Comment on above: Performed By: #### L 501.080 #### [facility] [address] [place], [address] .GFRon 10-29-2024 Estimated Glomerular Filtration Rate 97 ml/min/1.73sqm Normal [facility] Comment on above: Result Comment: Stages [...] the eGFR results. Performed By: #### U A UAMIC #### [place] [address] .Manual Diffon 10-29-2024 Bands 1.0 % Normal 0.0-5.0 [facility] Comment on above: Performed By: #### U Shea UAMIC #### [place] [address] Basophil %, Manual 0.0 % Normal 0.0-2.5 [facility] Comment on above: Performed By: #### U A UAMIC #### [place] [address] Basophil, Abs Manual 0.0 10 3/mcL Normal 0.0-0.3 [facility] Comment on above: Performed By: #### U A UAMIC #### [place] [address] Eosinophil %, Manual 3.0 % Normal 0.0-6.0 [facility] Comment on above: Performed By: #### U A, UAMIC #### [place] [address] Eosinophil, Abs Manual 0.2 10 3/mcL Normal 0.0-0.7 [facility] Comment on above: Performed By: #### U A, UAMIC #### [place] [address] Lymphocyte %, Manual 18.0 % Low 20.0-40.0 [facility] Comment on above: Performed By: #### U A UAMIC #### [place] [id number] Lymphocyte, Abs Manual 1.4 10 3/mcL Normal 0.9-4.3 [facility] Comment on above: Performed By: #### Anatoly Valdivia UAMIC #### [place] [address] Metamyelocyte 3.0 % Normal [facility] Comment on above: Performed By: #### Anatoly Valdivia UAMIC #### [place] [address] Monocyte %, Manual 7.0 % Normal 2.0-13.0 [facility] Comment on above: Performed By: #### Anatoly Valdivia UAMIC #### [place] [id number] Monocyte, Abs Manual 0.6 10 3/mcL Normal 0.1-1.4 [facility] Comment on above: Performed By: #### Anatoly Valdivia UAMIC #### [place] [address] Neutrophil %, Manual 68.0 % Normal 50.0-75.0 [facility] Comment on above: Performed By: #### Anatoly Valdivia UAMIC #### [place] [id number] Neutrophil, Abs Manual 5.3 10 3/mcL Normal 2.3-8.1 [facility] Comment on above: Performed By: #### Anatoly Valdivia UAMIC #### [place] [address] Nucleated RBC 0.0 /100 WBC Normal [facility] Comment on above: Performed By: #### Anatoly Valdivia UAMIC #### [place] [address] .Morphon 10-29-2024 Platelet Estimate Normal Normal [facility] Comment on above: Performed By: #### U Shea UAMIC #### [place] [address] RBC morphology finding Nom (Bld) Normal Normal [facility] Comment on above: Performed By: #### U Shea UAMIC #### [place] [address] CBCon 10-29-2024 Erythrocyte distribution width (RBC) [Ratio] 14.1 % Normal 11.5-15.5 [facility] Comment on above: Performed By: #### U Shea UAMIC #### [place] [address] Hematocrit (Bld) [Volume fraction] 34.1 % Low 40.0-52.0 [facility] Comment on above: Performed By: #### U Shea UAMIC #### [place] [address] Hgb 12.1 G/dL Low 13.0-17.5 [facility] Comment on above: Performed By: #### Anatoly Valdivia UAMIC #### [place] [address] MCH (RBC) [Entitic mass] 32.4 pg Normal 27.0-33.0 [facility] Comment on above: Performed By: #### Anatoly Valdivia UAMIC #### [place] [address] MCHC 35.4 G/dL Normal 32.0-36.0 [facility] Comment on above: Performed By: #### Anatoly Valdivia UAMIC #### [place] [address] MCV (RBC) [Entitic vol] 91.4 fL Normal 81.0-100.0 [facility] Comment on above: Performed By: #### U Shea UAMIC #### [place] [address] Platelet 327 10 3/mcL Normal 150-450 [facility] Comment on above: Performed By: #### U Shea UAMIC #### [place] [address] Platelet mean volume (Bld) [Entitic vol] 7.2 fL Normal 6.4-10.5 [facility] Comment on above: Performed By: #### U Shea UAMIC #### [place] [address] RBC 3.72 10 6/mcL Low 4.50-6.00 [facility] Comment on above: Performed By: #### U Shea UAMIC #### [place] [id number] WBC 7.7 10 3/mcL Normal 4.5-10.8 [facility] Comment on above: Performed By: #### Anatoly Valdivia UAMIC #### [place] [id number] CMPon 10-29-2024 Albumin Level 2.9 G/dL Low 3.2-4.8 [facility] Comment on above: Performed By: #### Anatoly Valdivia UAMIC #### [place] [id number] Albumin/Globulin [Mass ratio] 0.9 {ratio} Normal 0.9-1.6 [facility] Comment on above: Performed By: #### Anatoly Valdivia UAMIC #### [place] [id number] ALP [Catalytic activity/Vol] 76 U/L Normal 38-126 [facility] Comment on above: Performed By: #### Anatoly Valdivia UAMIC #### [place] [address] ALT [Catalytic activity/Vol] 47 U/L Normal 12-55 [facility] Comment on above: Performed By: #### Anatoly Valdivia UAMIC #### [place] [address] AST [Catalytic activity/Vol] 30 U/L Normal 8-34 [facility] Comment on above: Performed By: #### Anatoly Valdivia UAMIC #### [place] [address] Bili Total 0.50 mg/dL Normal 0.20-1.20 [facility] Comment on above: Result Comment: Use of this assay is not recommended for patients undergoing treatment with eltrombopag due to the potential for falsely elevated results. Performed By: #### U Shea UAMIC #### [place] [address] BUN/Creatinine Ratio 39.3 ratio High 10.0-22.0 [facility] Comment on above: Performed By: #### U A, UAMIC #### [address] [address] Calcium [Mass/Vol] 9.7 mg/dL Normal 8.7-10.4 [facility] Comment on above: Performed By: #### Anatoly Valdivia UAMIC #### [address] [address] Chloride [Moles/Vol] 95 mmol/L Low 98-110 [facility] Comment on above: Performed By: #### Anatoly Valdivia UAMIC #### [address] [address] CO2 [Moles/Vol] 29 mmol/L Normal 22-32 [facility] Comment on above: Performed By: #### BERNA Frank #### [address] [address] Creatinine [Mass/Vol] 0.56 mg/dL Low 0.60-1.40 [facility] Comment on above: Result Comment: Test ing performed on Openfolio analyzer using enzymatic creatinine methodology. Performed By: #### Anatoly Valdivia UACARRILLO #### [address] [address] Electrolyte Balance 10.0 mEq/L Normal 4.0-15.0 [facility] Comment on above: Performed By: #### Anatoly Valdivia UACARRILLO #### [address] [address] Globulin 3.3 G/dL Normal 2.5-4.2 [facility] Comment on above: Performed By: #### Anatoly Valdivia UAMIC #### [address] [address] Glucose [Mass/Vol] 215 mg/dL High 82-115 [facility] Comment on above: Performed By: #### Anatoly Valdivia UACARRILLO #### [address] [address] Potassium [Moles/Vol] 3.7 mmol/L Normal 3.5-5.0 [facility] Comment on above: Performed By: #### Anatoly Valdivia UAMIC #### [address] [address] Sodium [Moles/Vol] 134 mmol/L Low 136-145 [facility] Comment on above: Performed By: #### U A, UAMIC #### [facility] [address] [place] [address] Total Protein 6.2 G/dL Normal 5.7-8.2 [facility] Comment on above: Performed By: #### U A, UAMIC #### [facility] [address] [place] [address] Urea nitrogen [Mass/Vol] 22.0 mg/dL Normal 8.0-22.0 [facility] Comment on above: Performed By: #### U A, UAMIC #### [facility] [address] [place] [address] LABORATORYOrdered By: Maikol Corrigan on 10-29-2024 Blood Glucose Testing Reason Routine (10/29/24 11:33 AM) [facility] Glucose [Mass/Vol] 276 mg/dL High 82 - 115 mg/dL [facility] Blood Glucose Testing Reason Routine (10/29/24 7:44 AM) [facility] Glucose [Mass/Vol] 196 mg/dL High 82 - 115 mg/dL [facility] LABORATORYOrdered By: SYSTEM SYSTEM on 10-29-2024 Albumin BCP dye [Mass/Vol] 2.9 G/dL Low 3.2 - 4.8 G/dL [facility] SS Albumin/Globulin [Mass ratio] 0.9 {ratio} Normal [...] 0.50 mg/dL Normal 0.20 - 1.20 mg/dL AH ADM SS Comment on above: Interpretive Data: U se of this assay is not recommended for patients undergoing treatment with eltrombopag due to the potential for falsely elevated results. Calcium [Mass/Vol] 9.7 mg/dL Normal 8.7 - 10. 4 mg/dL ADM SS Chloride [Moles/Vol] 95 mmol/L Low 98 - 11 0 mEq/L ADM SS CO2 [Moles/Vol] 29 mmol/L Normal 22 - 32 mEq/L ADM SS Creatinine [Mass/Vol] 0.56 mg/dL Low 0.60 - 1.40 mg/dL ADM SS Comment on above: Interpretive Data: T esting performed on Openfolio analyzer using enzymatic creatinine methodology. Electrolyte Balance [...] 34.1 % Low 40.0 - 52.0 % AH Workflow SS Hemoglobin (Bld) [Mass/Vol] 12.1 G/dL [...] WBC (Bld) 3.0 % Invalid Interpretation Code Workflow SS Monocytes (Bld) [#/Vol] 0.6 103/mcL [...] G/dL AH ADM SS RBC (Bld) [#/Vol] 3.72 106/mcL Low 4.50 - 6.0 0 10^6/mcL AH Workflow SS RBC morphology finding Nom (Bld) Normal *NA* (10/29/24 6:36 AM) Invalid Interpretation Code AH Workflow SS Sodium [Moles/Vol] 134 mmol/L Low 136 - 145 mEq/L AH ADM SS Urea nitrogen [Mass/Vol] 22.0 mg/dL Normal 8.0 - 22.0 mg/dL AH ADM SS Urea nitrogen/Creatinine [Mass ratio] 39.3 ratio High 10.0 - 22.0 ratio AH ADM SS WBC (Bld) [#/Vol] 7.7 103/mcL Normal 4.5 - 10.8 10^3/mcL Workflow SS MGon 10-29-2024 Magnesium [Mass/Vol] 1.7 mg/dL Normal 1.6-2.4 [facility] Comment on above: Performed By: #### U A, UAMIC #### [address] [address] .GFRon 10-28-2024 Estimated Glomerular Filtration Rate 92 ml/min/1.73sqm Normal [facility] Comment on above: Result Comment: Stages [...] DIFF, CBC, BMP, ANEU, MG, GFR #### [address] [address] .Manual Diffon 10-28-2024 Basophil %, Manual 0.0 % Normal 0.0-2.5 [facility] Comment on above: Performed By: #### A DIFF, CBC, BMP, ANEU, MG, GFR #### [address] [address] Basophil, Abs Manual 0.0 10 3/mcL Normal 0.0-0.3 [facility] Comment on above: Performed By: #### A DIFF, CBC, BMP, ANEU, MG, GFR #### [address] [address] Eosinophil %, Manual 1.0 % Normal 0.0-6.0 [facility] Comment on above: Performed By: #### A DIFF, CBC, BMP, ANEU, MG, GFR #### [address] [address] Eosinophil, Abs Manual 0.1 10 3/mcL Normal 0.0-0.7 [facility] Comment on above: Performed By: #### A DIFF, CBC, BMP, ANEU, MG, GFR #### [address] [address] Lymphocyte %, Manual 11.0 % Low 20.0-40.0 [facility] Comment on above: Performed By: #### A DIFF, CBC, BMP, ANEU, MG, GFR #### [address] [address] Lymphocyte, Abs Manual 1.1 10 3/mcL Normal 0.9-4.3 [facility] Comment on above: Performed By: #### A DIFF, CBC, BMP, ANEU, MG, GFR #### [address] [address] Metamyelocyte 1.0 % Normal [facility] Comment on above: Performed By: #### A DIFF, CBC, BMP, ANEU, MG, GFR #### [address] [address] Monocyte %, Manual 4.0 % Normal 2.0-13.0 [facility] Comment on above: Performed By: #### A DIFF, CBC, BMP, ANEU, MG, GFR #### [address] [address] Monocyte, Abs Manual 0.4 10 3/mcL Normal 0.1-1.4 [facility] Comment on above: Performed By: #### A DIFF, CBC, BMP, ANEU, MG, GFR #### [place] [address] Neutrophil %, Manual 83.0 % High 50.0-75.0 [facility] Comment on above: Performed By: #### A DIFF, CBC, BMP, ANEU, MG, GFR #### [place] [address] Neutrophil, Abs Manual 8.2 10 3/mcL High 2.3-8.1 [facility] Comment on above: Performed By: #### A DIFF, CBC, BMP, ANEU, MG, GFR #### [place] [address] Nucleated RBC 0.0 /100 WBC Normal [facility] Comment on above: Performed By: #### A DIFF, CBC, BMP, ANEU, MG, GFR #### [place] [address] .Morphon 10-28-2024 Platelet Estimate Normal Normal [facility] Comment on above: Performed By: #### A DIFF, CBC, BMP, ANEU, MG, GFR #### [place] [address] RBC morphology finding Nom (Bld) Normal Normal [facility] Comment on above: Performed By: #### A DIFF, CBC, BMP, ANEU, MG, GFR #### [place] [address] Toxic Gran 1+ Normal [facility] Comment on above: Performed By: #### A DIFF, CBC, BMP, ANEU, MG, GFR #### [place] [address] CBCon 10-28-2024 Erythrocyte distribution width (RBC) [Ratio] 14.1 % Normal 11.5-15.5 [facility] Comment on above: Performed By: #### A DIFF, CBC, BMP, ANEU, MG, GFR #### [place] [address] Hematocrit (Bld) [Volume fraction] 35.4 % Low 40.0-52.0 [facility] Comment on above: Performed By: #### A DIFF, CBC, BMP, ANEU, MG, GFR #### [place] [address] Hgb 12.2 G/dL Low 13.0-17.5 [facility] Comment on above: Performed By: #### A DIFF, CBC, BMP, ANEU, MG, GFR #### [place] [address] MCH (RBC) [Entitic mass] 31.4 pg Normal 27.0-33.0 [facility] Comment on above: Performed By: #### A DIFF, CBC, BMP, ANEU, MG, GFR #### [place] [address] MCHC 34.4 G/dL Normal 32.0-36.0 [facility] Comment on above: Performed By: #### A DIFF, CBC, BMP, ANEU, MG, GFR #### [place] [address] MCV (RBC) [Entitic vol] 91.5 fL Normal 81.0-100.0 [facility] Comment on above: Performed By: #### A DIFF, CBC, BMP, ANEU, MG, GFR #### [place] [address] Platelet 311 10 3/mcL Normal 150-450 [facility] Comment on above: Performed By: #### A DIFF, CBC, BMP, ANEU, MG, GFR #### [place] [address] Platelet mean volume (Bld) [Entitic vol] 7.3 fL Normal 6.4-10.5 [facility] Comment on above: Performed By: #### A DIFF, CBC, BMP, ANEU, MG, GFR #### [place] [address] RBC 3.87 10 6/mcL Low 4.50-6.00 [facility] Comment on above: Performed By: #### A DIFF, CBC, BMP, ANEU, MG, GFR #### [place] [address] WBC 9.9 10 3/mcL Normal 4.5-10.8 [facility] Comment on above: Performed By: #### A DIFF, CBC, BMP, ANEU, MG, GFR #### [address] [address] CMPon 10-28-2024 Albumin Level 3.0 G/dL Low 3.2-4.8 [facility] Comment on above: Performed By: #### A DIFF, CBC, BMP, ANEU, MG, GFR #### [place] [id number] Albumin/Globulin [Mass ratio] 0.9 {ratio} Normal 0.9-1.6 [facility] Comment on above: Performed By: #### A DIFF, CBC, BMP, ANEU, MG, GFR #### [place] [address] ALP [Catalytic activity/Vol] 74 U/L Normal 38-126 [facility] Comment on above: Performed By: #### A DIFF, CBC, BMP, ANEU, MG, GFR #### [place] [address] ALT [Catalytic activity/Vol] 41 U/L Normal 12-55 [facility] Comment on above: Performed By: #### A DIFF, CBC, BMP, ANEU, MG, GFR #### [place] [id number] AST [Catalytic activity/Vol] 30 U/L Normal 8-34 [facility] Comment on above: Performed By: #### A DIFF, CBC, BMP, ANEU, MG, GFR #### [place] [id number] Bili Total 0.60 mg/dL Normal 0.20-1.20 [facility] Comment on above: Result Comment: Use of this assay is not recommended for patients undergoing treatment with eltrombopag due to the potential for falsely elevated results. Performed By: #### A DIFF, CBC, BMP, ANEU, MG, GFR #### [place] [address] BUN/Creatinine Ratio 37.9 ratio High 10.0-22.0 [facility] Comment on above: Performed By: #### A DIFF, CBC, BMP, ANEU, MG, GFR #### [address] [address] Calcium [Mass/Vol] 9.7 mg/dL Normal 8.7-10.4 [facility] Comment on above: Performed By: #### A DIFF, CBC, BMP, ANEU, MG, GFR #### [address] [address] Chloride [Moles/Vol] 95 mmol/L Low 98-110 [facility] Comment on above: Performed By: #### A DIFF, CBC, BMP, ANEU, MG, GFR #### [address] [address] CO2 [Moles/Vol] 27 mmol/L Normal 22-32 [facility] Comment on above: Performed By: #### A DIFF, CBC, BMP, ANEU, MG, GFR #### [place] [id number] Creatinine [Mass/Vol] 0.66 mg/dL Normal 0.60-1.40 [facility] Comment on above: Result Comment: Test ing performed on Openfolio analyzer using enzymatic creatinine methodology. Performed By: #### A DIFF, CBC, BMP, ANEU, MG, GFR #### [address] [address] Electrolyte Balance 12.0 mEq/L Normal 4.0-15.0 [facility] Comment on above: Performed By: #### A DIFF, CBC, BMP, ANEU, MG, GFR #### [address] [address] Globulin 3.4 G/dL Normal 2.5-4.2 [facility] Comment on above: Performed By: #### A DIFF, CBC, BMP, ANEU, MG, GFR #### [address] [address] Glucose [Mass/Vol] 200 mg/dL High 82-115 [facility] Comment on above: Performed By: #### A DIFF, CBC, BMP, ANEU, MG, GFR #### [address] [place], [place] [address] Potassium [Moles/Vol] 3.6 mmol/L Normal 3.5-5.0 [facility] Comment on above: Performed By: #### A DIFF, CBC, BMP, ANEU, MG, GFR #### [facility] [address] [place] [address] Sodium [Moles/Vol] 134 mmol/L Low 136-145 [facility] Comment on above: Performed By: #### A DIFF, CBC, BMP, ANEU, MG, GFR #### [address] [address] Total Protein 6.4 G/dL Normal 5.7-8.2 [facility] Comment on above: Performed By: #### A DIFF, CBC, BMP, ANEU, MG, GFR #### [address] [address] Urea nitrogen [Mass/Vol] 25.0 mg/dL High 8.0-22.0 [facility] Comment on above: Performed By: #### A DIFF, CBC, BMP, ANEU, MG, GFR #### [address] [address] LABORATORYOrdered By: Kelli Swartz on 10-28-2024 Blood Glucose Testing Reason Routine (10/28/24 10:14 PM) [facility] Glucose [Mass/Vol] 270 mg/dL High 82 - 115 mg/dL [facility] LABORATORYOrdered By: SYSTEM SYSTEM on 10-28-2024 [...] above: Interpretive Data: T esting performed on Openfolio analyzer using enzymatic creatinine methodology. Electrolyte Balance [...] 35.4 % Low 40.0 - 52.0 % AH Workflow SS Hemoglobin (Bld) [Mass/Vol] 12.2 G/dL Low 13.0 - 17.5 G/dL AH Workflow SS Lymphocytes (Bld) [#/Vol] 1.1 103/mcL Normal 0.9 - 4.3 10^3/mcL AH Workflow SS Lymphocytes/100 WBC (Bld) 11.0 % Low 20.0 - 40.0 % AH Workflow SS Magnesium [Mass/Vol] 1.8 mg/dL Normal 1.6 - 2 .4 mg/dL ADM SS MCH (RBC) [Entitic mass] 31.4 pg Normal 27.0 - 33.0 pg AH Workflow SS MCHC 34.4 G/dL Normal 32.0 - 36.0 G/dL Workflow SS MCV (RBC) [Entitic vol] 91.5 fL Normal 81.0 - 100.0 fL AH Workflow SS Metamyelocytes/100 WBC (Bld) 1.0 % Invalid Interpretation Code Workflow SS Monocytes (Bld) [#/Vol] 0.4 103/mcL Normal 0.1 - 1.4 10^3/mcL Workflow SS Monocytes/100 WBC (Bld) 4.0 % [...] 10-28-2024 Magnesium [Mass/Vol] 1.8 mg/dL Normal 1.6-2.4 [facility] Comment on above: Performed By: #### A DIFF, CBC, BMP, ANEU, MG, GFR #### [place] [address] XR CHEST 1 VIEWon 10-28-2024 XR CHEST [...] 4:31:31 PM Ordering Provider: ROSI PRADO Normal [facility] .Auto Diffon 10-27-2024 Basophil, Absolute 0.0 10 3/mcL Normal 0.0-0.3 [facility] Comment on above: Performed By: #### A DIFF, CBC, BMP, ANEU, MG, GFR #### [address] [address] Basophils/100 WBC (Bld) 0.1 % Normal 0.0-2.5 [facility] Comment on above: Performed By: #### A DIFF, CBC, BMP, ANEU, MG, GFR #### [address] [address] Eosinophil, Absolute 0.0 10 3/mcL Normal 0.0-0.7 [facility] Comment on above: Performed By: #### A DIFF, CBC, BMP, ANEU, MG, GFR #### [address] [address] Eosinophils/100 WBC (Bld) 0.5 % Normal 0.0-6.0 [facility] Comment on above: Performed By: #### A DIFF, CBC, BMP, ANEU, MG, GFR #### [address] [address] Lymphocyte, Absolute 0.9 10 3/mcL Normal 0.9-4.3 [facility] Comment on above: Performed By: #### A DIFF, CBC, BMP, ANEU, MG, GFR #### [address] [address] Lymphocytes/100 WBC (Bld) 9.3 % Low 20.0-40.0 [facility] Comment on above: Performed By: #### A DIFF, CBC, BMP, ANEU, MG, GFR #### [facility] [address] [place] [address] Monocyte, Absolute 0.7 10 3/mcL Normal 0.1-1.4 [facility] Comment on above: Performed By: #### A DIFF, CBC, BMP, ANEU, MG, GFR #### [address] [address] Monocytes/100 WBC (Bld) 7.4 % Normal 2.0-13.0 [facility] Comment on above: Performed By: #### A DIFF, CBC, BMP, ANEU, MG, GFR #### [address] [address] Neutrophils/100 WBC (Bld) 82.7 % High 50.0-75.0 [facility] Comment on above: Performed By: #### A DIFF, CBC, BMP, ANEU, MG, GFR #### [address] [address] .GFRon 10-27-2024 Estimated Glomerular Filtration Rate 93 ml/min/1.73sqm Normal [facility] Comment on above: Result Comment: Stages [...] DIFF, CBC, BMP, ANEU, MG, GFR #### [address] [address] .NEUABSon 10-27-2024 Neutrophil, Absolute 8.1 10 3/mcL Normal 2.3-8.1 [facility] Comment on above: Performed By: #### A DIFF, CBC, BMP, ANEU, MG, GFR #### [address] [address] CBCon 10-27-2024 Erythrocyte distribution width (RBC) [Ratio] 14.3 % Normal 11.5-15.5 [facility] Comment on above: Performed By: #### A DIFF, CBC, BMP, ANEU, MG, GFR #### [place] [address] Hematocrit (Bld) [Volume fraction] 35.2 % Low 40.0-52.0 [facility] Comment on above: Performed By: #### A DIFF, CBC, BMP, ANEU, MG, GFR #### [place] [address] Hgb 12.2 G/dL Low 13.0-17.5 [facility] Comment on above: Performed By: #### A DIFF, CBC, BMP, ANEU, MG, GFR #### [place] [address] MCH (RBC) [Entitic mass] 31.6 pg Normal 27.0-33.0 [facility] Comment on above: Performed By: #### A DIFF, CBC, BMP, ANEU, MG, GFR #### [place] [address] MCHC 34.8 G/dL Normal 32.0-36.0 [facility] Comment on above: Performed By: #### A DIFF, CBC, BMP, ANEU, MG, GFR #### [place] [address] MCV (RBC) [Entitic vol] 91.0 fL Normal 81.0-100.0 [facility] Comment on above: Performed By: #### A DIFF, CBC, BMP, ANEU, MG, GFR #### [place] [address] Platelet 288 10 3/mcL Normal 150-450 [facility] Comment on above: Performed By: #### A DIFF, CBC, BMP, ANEU, MG, GFR #### [place] [address] Platelet mean volume (Bld) [Entitic vol] 7.5 fL Normal 6.4-10.5 [facility] Comment on above: Performed By: #### A DIFF, CBC, BMP, ANEU, MG, GFR #### [address] [address] RBC 3.87 10 6/mcL Low 4.50-6.00 [facility] Comment on above: Performed By: #### A DIFF, CBC, BMP, ANEU, MG, GFR #### [place] [id number] WBC 9.8 10 3/mcL Normal 4.5-10.8 [facility] Comment on above: Performed By: #### A DIFF, CBC, BMP, ANEU, MG, GFR #### [place] [id number] CMPon 10-27-2024 Albumin Level 2.9 G/dL Low 3.2-4.8 [facility] Comment on above: Performed By: #### A DIFF, CBC, BMP, ANEU, MG, GFR #### [place] [address] Albumin/Globulin [Mass ratio] 0.9 {ratio} Normal 0.9-1.6 [facility] Comment on above: Performed By: #### A DIFF, CBC, BMP, ANEU, MG, GFR #### [place] [address] ALP [Catalytic activity/Vol] 68 U/L Normal 38-126 [facility] Comment on above: Performed By: #### A DIFF, CBC, BMP, ANEU, MG, GFR #### [place] [address] ALT [Catalytic activity/Vol] 39 U/L Normal 12-55 [facility] Comment on above: Performed By: #### A DIFF, CBC, BMP, ANEU, MG, GFR #### [place] [address] AST [Catalytic activity/Vol] 34 U/L Normal 8-34 [facility] Comment on above: Performed By: #### A DIFF, CBC, BMP, ANEU, MG, GFR #### [place] [address] Bili Total 0.60 mg/dL Normal 0.20-1.20 [facility] Comment on above: Result Comment: Use of this assay is not recommended for patients undergoing treatment with eltrombopag due to the potential for falsely elevated results. Performed By: #### A DIFF, CBC, BMP, ANEU, MG, GFR #### [place] [id number] BUN/Creatinine Ratio 39.1 ratio High 10.0-22.0 [facility] Comment on above: Performed By: #### A DIFF, CBC, BMP, ANEU, MG, GFR #### [address] [address] Calcium [Mass/Vol] 9.4 mg/dL Normal 8.7-10.4 [facility] Comment on above: Performed By: #### A DIFF, CBC, BMP, ANEU, MG, GFR #### [place] [id number] Chloride [Moles/Vol] 93 mmol/L Low 98-110 [facility] Comment on above: Performed By: #### A DIFF, CBC, BMP, ANEU, MG, GFR #### [place] [id number] CO2 [Moles/Vol] 31 mmol/L Normal 22-32 [facility] Comment on above: Performed By: #### A DIFF, CBC, BMP, ANEU, MG, GFR #### [place] [id number] Creatinine [Mass/Vol] 0.64 mg/dL Normal 0.60-1.40 [facility] Comment on above: Result Comment: Test ing performed on Openfolio analyzer using enzymatic creatinine methodology. Performed By: #### A DIFF, CBC, BMP, ANEU, MG, GFR #### [place] [id number] Electrolyte Balance 7.0 mEq/L Normal 4.0-15.0 [facility] Comment on above: Performed By: #### A DIFF, CBC, BMP, ANEU, MG, GFR #### [place] [id number] Globulin 3.3 G/dL Normal 2.5-4.2 [facility] Comment on above: Performed By: #### A DIFF, CBC, BMP, ANEU, MG, GFR #### [address] [address] Glucose [Mass/Vol] 192 mg/dL High 82-115 [facility] Comment on above: Performed By: #### A DIFF, CBC, BMP, ANEU, MG, GFR #### [address] [address] Potassium [Moles/Vol] 3.9 mmol/L Normal 3.5-5.0 [facility] Comment on above: Performed By: #### A DIFF, CBC, BMP, ANEU, MG, GFR #### [address] [address] Sodium [Moles/Vol] 131 mmol/L Low 136-145 [facility] Comment on above: Performed By: #### A DIFF, CBC, BMP, ANEU, MG, GFR #### [address] [address] Total Protein 6.2 G/dL Normal 5.7-8.2 [facility] Comment on above: Performed By: #### A DIFF, CBC, BMP, ANEU, MG, GFR #### [address] [address] Urea nitrogen [Mass/Vol] 25.0 mg/dL High 8.0-22.0 [facility] Comment on above: Performed By: #### A DIFF, CBC, BMP, ANEU, MG, GFR #### [place] [id number] CT THORAX W/ CONTRASTon 10-05 CT THORAX [...] 10/27/2024 3:57:32 AM Ordering Provider: BELKYS ALCANTAR [facility] MAIN LABORATORYOrdered By: SYSTEM SYSTEM on [...] 34 U/L Normal 8 - 34 U/L ADM SS Basophils (Bld) [#/Vol] 0.0 103/mcL Normal 0.0 - 0.3 10^3/mcL Workflow SS Basophils/100 WBC (Bld) 0.1 % Normal 0.0 - 2.5 % Workflow [...] above: Interpretive Data: T esting performed on Openfolio analyzer using enzymatic creatinine methodology. Electrolyte Balance [...] 35.2 % Low 40.0 - 52.0 % AH Workflow SS Hemoglobin (Bld) [Mass/Vol] 12.2 G/dL Low 13.0 - 17.5 G/dL AH Workflow SS Lymphocytes (Bld) [#/Vol] 0.9 103/mcL Normal 0.9 - 4.3 10^3/mcL AH Workflow SS Lymphocytes/100 WBC (Bld) 9.3 % Low 20.0 - 40.0 % Workflow SS Magnesium [Mass/Vol] 1.8 mg/dL Normal 1.6 - 2 .4 mg/dL ADM SS MCH (RBC) [Entitic mass] 31.6 pg Normal 27.0 - 33.0 pg Workflow SS MCHC 34.8 G/dL Normal 32.0 - 36.0 G/dL Workflow SS MCV (RBC) [Entitic vol] 91.0 fL Normal 81.0 - 100.0 fL Workflow SS Monocytes (Bld) [#/Vol] 0.7 103/mcL Normal 0.1 - 1.4 10^3/mcL AH Workflow SS Monocytes/100 WBC (Bld) 7.4 % Normal 2.0 - 13.0 % AH Workflow SS Neutrophils (Bld) [#/Vol] 8.1 103/mcL Normal 2.3 - 8.1 10^3/mcL AH Workflow SS Neutrophils/100 WBC (Bld) 82.7 % High 50.0 - 75.0 % Workflow SS Platelet mean volume (Bld) [Entitic vol] 7.5 fL Normal 6.4 - 10.5 fL AH Workflow SS Platelets (Bld) [#/Vol] 288 103/mcL Normal 150 - 450 10^3/mcL AH Workflow SS Potassium [Moles/Vol] 3.9 mmol/L Normal 3.5 - 5.0 mEq/L ADM SS Protein [Mass/Vol] 6.2 G/dL Normal 5.7 - 8.2 G/dL ADM SS RBC (Bld) [#/Vol] 3.87 106/mcL Low 4.50 - 6.0 0 10^6/mcL Workflow SS Sodium [Moles/Vol] 131 mmol/L Low 136 - 145 mEq/L AH ADM SS Urea nitrogen [Mass/Vol] 25.0 mg/dL High 8.0 - 22.0 mg/dL AH ADM SS Urea nitrogen/Creatinine [Mass ratio] 39.1 ratio High 10.0 - 22.0 ratio AH ADM SS WBC (Bld) [#/Vol] 9.8 103/mcL Normal 4.5 - 10.8 10^3/mcL Workflow SS MGon 10-27-2024 Magnesium [Mass/Vol] 1.8 mg/dL Normal 1.6-2.4 [facility] Comment on above: Performed By: #### A DIFF, CBC, BMP, ANEU, MG, GFR #### [address] [address] .Auto Diffon 10-26-2024 Basophil, Absolute 0.0 10 3/mcL Normal 0.0-0.3 [facility] Comment on above: Performed By: #### A DIFF, CBC, BMP, ANEU, MG, GFR #### [address] [address] Basophils/100 WBC (Bld) 0.2 % Normal 0.0-2.5 [facility] Comment on above: Performed By: #### A DIFF, CBC, BMP, ANEU, MG, GFR #### [address] [address] Eosinophil, Absolute 0.0 10 3/mcL Normal 0.0-0.7 [facility] Comment on above: Performed By: #### A DIFF, CBC, BMP, ANEU, MG, GFR #### [address] [address] Eosinophils/100 WBC (Bld) 0.6 % Normal 0.0-6.0 [facility] Comment on above: Performed By: #### A DIFF, CBC, BMP, ANEU, MG, GFR #### [address] [address] Lymphocyte, Absolute 1.0 10 3/mcL Normal 0.9-4.3 [facility] Comment on above: Performed By: #### A DIFF, CBC, BMP, ANEU, MG, GFR #### [address] [address] Lymphocytes/100 WBC (Bld) 11.3 % Low 20.0-40.0 [facility] Comment on above: Performed By: #### A DIFF, CBC, BMP, ANEU, MG, GFR #### [address] [address] Monocyte, Absolute 0.8 10 3/mcL Normal 0.1-1.4 [facility] Comment on above: Performed By: #### A DIFF, CBC, BMP, ANEU, MG, GFR #### [address] [address] Monocytes/100 WBC (Bld) 9.4 % Normal 2.0-13.0 [facility] Comment on above: Performed By: #### A DIFF, CBC, BMP, ANEU, MG, GFR #### [address] [address] Neutrophils/100 WBC (Bld) 78.5 % High 50.0-75.0 [facility] Comment on above: Performed By: #### A DIFF, CBC, BMP, ANEU, MG, GFR #### [address] [address] .GFRon 10-26-2024 Estimated Glomerular Filtration Rate 96 ml/min/1.73sqm Normal [facility] Comment on above: Result Comment: Stages [...] DIFF, CBC, BMP, ANEU, MG, GFR #### [place] [address] .NEUABSon 10-26-2024 Neutrophil, Absolute 6.8 10 3/mcL Normal 2.3-8.1 [facility]IN Comment on above: Performed By: #### A DIFF, CBC, BMP, ANEU, MG, GFR #### [place] [id number] CBCon 10-26-2024 Erythrocyte distribution width (RBC) [Ratio] 14.0 % Normal 11.5-15.5 [facility] Comment on above: Performed By: #### A DIFF, CBC, BMP, ANEU, MG, GFR #### [place] [address] Hematocrit (Bld) [Volume fraction] 37.1 % Low 40.0-52.0 [facility] Comment on above: Performed By: #### A DIFF, CBC, BMP, ANEU, MG, GFR #### [place] [address] Hgb 12.7 G/dL Low 13.0-17.5 [facility] Comment on above: Performed By: #### A DIFF, CBC, BMP, ANEU, MG, GFR #### [place] [address] MCH (RBC) [Entitic mass] 31.5 pg Normal 27.0-33.0 [facility] Comment on above: Performed By: #### A DIFF, CBC, BMP, ANEU, MG, GFR #### [place] [address] MCHC 34.4 G/dL Normal 32.0-36.0 [facility] Comment on above: Performed By: #### A DIFF, CBC, BMP, ANEU, MG, GFR #### [place] [address] MCV (RBC) [Entitic vol] 91.8 fL Normal 81.0-100.0 [facility] Comment on above: Performed By: #### A DIFF, CBC, BMP, ANEU, MG, GFR #### [place] [address] Platelet 258 10 3/mcL Normal 150-450 [facility] Comment on above: Performed By: #### A DIFF, CBC, BMP, ANEU, MG, GFR #### [place] [address] Platelet mean volume (Bld) [Entitic vol] 7.4 fL Normal 6.4-10.5 [facility] Comment on above: Performed By: #### A DIFF, CBC, BMP, ANEU, MG, GFR #### [place] [address] RBC 4.04 10 6/mcL Low 4.50-6.00 [facility] Comment on above: Performed By: #### A DIFF, CBC, BMP, ANEU, MG, GFR #### [place] [address] WBC 8.7 10 3/mcL Normal 4.5-10.8 [facility] Comment on above: Performed By: #### A DIFF, CBC, BMP, ANEU, MG, GFR #### [place] [address] CMPon 10-26-2024 Albumin Level 3.1 G/dL Low 3.2-4.8 [facility] Comment on above: Performed By: #### A DIFF, CBC, BMP, ANEU, MG, GFR #### [place] [address] Albumin/Globulin [Mass ratio] 1.0 {ratio} Normal 0.9-1.6 [facility] Comment on above: Performed By: #### A DIFF, CBC, BMP, ANEU, MG, GFR #### [address] [address] ALP [Catalytic activity/Vol] 62 U/L Normal 38-126 [facility] Comment on above: Performed By: #### A DIFF, CBC, BMP, ANEU, MG, GFR #### [place] [address] ALT [Catalytic activity/Vol] 26 U/L Normal 12-55 [facility] Comment on above: Performed By: #### A DIFF, CBC, BMP, ANEU, MG, GFR #### [address] [address] AST [Catalytic activity/Vol] 27 U/L Normal 8-34 [facility] Comment on above: Performed By: #### A DIFF, CBC, BMP, ANEU, MG, GFR #### [address] [address] Bili Total 0.70 mg/dL Normal 0.20-1.20 [facility] Comment on above: Result Comment: Use of this assay is not recommended for patients undergoing treatment with eltrombopag due to the potential for falsely elevated results. Performed By: #### A DIFF, CBC, BMP, ANEU, MG, GFR #### [place] [id number] BUN/Creatinine Ratio 39.7 ratio High 10.0-22.0 [facility] Comment on above: Performed By: #### A DIFF, CBC, BMP, ANEU, MG, GFR #### [address] [address] Calcium [Mass/Vol] 9.2 mg/dL Normal 8.7-10.4 [facility] Comment on above: Performed By: #### A DIFF, CBC, BMP, ANEU, MG, GFR #### [address] [address] Chloride [Moles/Vol] 91 mmol/L Low 98-110 [facility] Comment on above: Performed By: #### A DIFF, CBC, BMP, ANEU, MG, GFR #### [address] [address] CO2 [Moles/Vol] 28 mmol/L Normal 22-32 [facility] Comment on above: Performed By: #### A DIFF, CBC, BMP, ANEU, MG, GFR #### [address] [address] Creatinine [Mass/Vol] 0.58 mg/dL Low 0.60-1.40 [facility] Comment on above: Result Comment: Test ing performed on [employer] analyzer using enzymatic creatinine methodology. Performed By: #### A DIFF, CBC, BMP, ANEU, MG, GFR #### [address] [address] Electrolyte Balance 10.0 mEq/L Normal 4.0-15.0 [facility] Comment on above: Performed By: #### A DIFF, CBC, BMP, ANEU, MG, GFR #### [address] [address] Globulin 3.2 G/dL Normal 2.5-4.2 [facility] Comment on above: Performed By: #### A DIFF, CBC, BMP, ANEU, MG, GFR #### [address] [address] Glucose [Mass/Vol] 154 mg/dL High 82-115 [facility] Comment on above: Performed By: #### A DIFF, CBC, BMP, ANEU, MG, GFR #### [address] [address] Potassium [Moles/Vol] 3.9 mmol/L Normal 3.5-5.0 [facility] Comment on above: Performed By: #### A DIFF, CBC, BMP, ANEU, MG, GFR #### [address] [address] Sodium [Moles/Vol] 129 mmol/L Low 136-145 [facility] Comment on above: Performed By: #### A DIFF, CBC, BMP, ANEU, MG, GFR #### [address] [address] Total Protein 6.3 G/dL Normal 5.7-8.2 [facility] Comment on above: Performed By: #### A DIFF, CBC, BMP, ANEU, MG, GFR #### [address] [address] Urea nitrogen [Mass/Vol] 23.0 mg/dL High 8.0-22.0 [facility] Comment on above: Performed By: #### A DIFF, CBC, BMP, ANEU, MG, GFR #### [address] [address] LABORATORYOrdered By: SYSTEM SYSTEM on 10-26-2024 Basophils [...] 10-26-2024 Magnesium [Mass/Vol] 1.9 mg/dL Normal 1.6-2.4 [facility] Comment on above: Performed By: #### A DIFF, CBC, BMP, ANEU, MG, GFR #### [place] [address] XR CHEST 1 VIEWon 10-26-2024 XR CHEST [...] 10/26/2024 10:31:55 AM Ordering Provider: DEIDRA Spangler [facility] .Auto Diffon 10-25-2024 Basophil, Absolute 0.0 10 3/mcL Normal 0.0-0.3 [facility] Comment on above: Performed By: #### Anatoly Valdivia UAMIC #### [address] [address] Basophils/100 WBC (Bld) 0.4 % Normal 0.0-2.5 A [facility] Comment on above: Performed By: #### Anatoly Valdivia UACARRILLO #### [address] [address] Eosinophil, Absolute 0.1 10 3/mcL Normal 0.0-0.7 [facility] Comment on above: Performed By: #### Anatoly Valdivia UAMIC #### [address] [address] Eosinophils/100 WBC (Bld) 0.9 % Normal 0.0-6.0 [facility] Comment on above: Performed By: #### Anatoly Valdivia UAMIC #### [address] [address] Lymphocyte, Absolute 0.7 10 3/mcL Low 0.9-4.3 [facility] Comment on above: Performed By: #### Anatoly Valdivia UAMIC #### [address] [address] Lymphocytes/100 WBC (Bld) 9.2 % Low 20.0-40.0 [facility] Comment on above: Performed By: #### Anatoly Valdivia UAMIC #### [address] [address] Monocyte, Absolute 0.8 10 3/mcL Normal 0.1-1.4 [facility] Comment on above: Performed By: #### U Shea UAMIC #### [address] [address] Monocytes/100 WBC (Bld) 10.0 % Normal 2.0-13.0 A [facility] Comment on above: Performed By: #### BERNA Frank #### [address] [address] Neutrophils/100 WBC (Bld) 79.5 % High 50.0-75.0 [facility] Comment on above: Performed By: #### BERNA Frank #### [address] [address] .GFRon 10-25-2024 Estimated Glomerular Filtration Rate 93 ml/min/1.73sqm Normal [facility] Comment on above: Result Comment: Stages [...] results. Performed By: #### BERNA Frank #### [address] [address] .NEUABSon 10-25-2024 Neutrophil, Absolute 6.2 10 3/mcL Normal 2.3-8.1 [facility] Comment on above: Performed By: #### BERNA Frank #### [address] [address] B12on 10-25-2024 Cobalamin (Vitamin B12) [Mass/Vol] 377 pg/mL Normal 211-911 [facility] Comment on above: Performed By: #### BERNA Frank #### [address] [address] BGon 10-25-2024 Base excess Calc (Bld) [Moles/Vol] 1.2 mmol/L Normal [facility] Comment on above: Performed By: #### B G #### [address] [address] CO2 [Moles/Vol] 25.2 mmol/L Normal 22.0-30.0 [facility] Comment on above: Performed By: #### B G #### [address] [address] HCO3 (Bld) [Moles/Vol] 24.2 mmol/L Normal 21.0-29.0 [facility] Comment on above: Performed By: #### B G #### [address] [address] Oxygen (Bld) [Partial pressure] 107.5 mm[Hg] Normal 74.0-108.0 [facility] Comment on above: Performed By: #### B G #### [address] [address] Oxygen saturation in Blood 98.4 % High 92.0-96.0 [facility] Comment on above: Performed By: #### B G #### [address] [address] pCO2 33.2 mmHg Normal 32.0-46.0 [facility] Comment on above: Performed By: #### B G #### [address] [address] pH (Bld) 7.480 [pH] High 7.380-7.460 [facility] Comment on above: Performed By: #### B G #### [address] [address] Base excess Calc (Bld) [Moles/Vol] 3.1 mmol/L Normal [facility] Comment on above: Performed By: #### B G #### [address] [address] CO2 [Moles/Vol] 26.6 mmol/L Normal 22.0-30.0 [facility] Comment on above: Performed By: #### B G #### [address] [address] HCO3 (Bld) [Moles/Vol] 25.6 mmol/L Normal 21.0-29.0 [facility] Comment on above: Performed By: #### B G #### [address] [address] Oxygen (Bld) [Partial pressure] 35.7 mm[Hg] Critically abnormal 74.0-108.0 [facility] Comment on above: Performed By: #### B G #### [place] [id number] Oxygen saturation in Blood 74.9 % Low 92.0-96.0 [facility] Comment on above: Performed By: #### B G #### [place] [id number] pCO2 33.0 mmHg Normal 32.0-46.0 [facility] Comment on above: Performed By: #### B G #### [place] [id number] pH (Bld) 7.508 [pH] High 7.380-7.460 [facility] Comment on above: Performed By: #### B G #### [address] [address] CBCon 10-25-2024 Erythrocyte distribution width (RBC) [Ratio] 13.5 % Normal 11.5-15.5 [facility] Comment on above: Performed By: #### BERNA Frank #### [place] [id number] Hematocrit (Bld) [Volume fraction] 38.0 % Low 40.0-52.0 [facility] Comment on above: Performed By: #### SANTANA FrankMIC #### [address] [address] Hgb 13.0 G/dL Normal 13.0-17.5 [facility] Comment on above: Performed By: #### Anatoly Valdivia UAMIC #### [address] [address] MCH (RBC) [Entitic mass] 31.6 pg Normal 27.0-33.0 [facility] Comment on above: Performed By: #### BERNA Frank #### [address] [address] MCHC 34.4 G/dL Normal 32.0-36.0 [facility] Comment on above: Performed By: #### Anatoly Valdivia UAMIC #### [place] [address] MCV (RBC) [Entitic vol] 91.9 fL Normal 81.0-100.0 [facility] Comment on above: Performed By: #### Anatoly Valdivia UAMIC #### [place] [address] Platelet 258 10 3/mcL Normal 150-450 [facility] Comment on above: Performed By: #### Anatoly Valdivia UAMIC #### [place] [address] Platelet mean volume (Bld) [Entitic vol] 7.5 fL Normal 6.4-10.5 [facility] Comment on above: Performed By: #### Anatoly Valdivia UAMIC #### [place] [address] RBC 4.13 10 6/mcL Low 4.50-6.00 [facility] Comment on above: Performed By: #### Anatoly Valdivia UAMIC #### [place] [address] WBC 7.8 10 3/mcL Normal 4.5-10.8 [facility] Comment on above: Performed By: #### Anatoly Valdivia UAMIC #### [place] [address] CMPon 10-25-2024 Albumin Level 3.6 G/dL Normal 3.2-4.8 [facility] Comment on above: Performed By: #### U Shea UAMIC #### [place] [address] Albumin/Globulin [Mass ratio] 1.1 {ratio} Normal 0.9-1.6 [facility] Comment on above: Performed By: #### U Shea UAMIC #### [place] [address] ALP [Catalytic activity/Vol] 73 U/L Normal 38-126 [facility] Comment on above: Performed By: #### U A UAMIC #### [address] [address] ALT [Catalytic activity/Vol] 19 U/L Normal 12-55 [facility] Comment on above: Performed By: #### U A, UAMIC #### [address] [address] AST [Catalytic activity/Vol] 24 U/L Normal 8-34 [facility] Comment on above: Performed By: #### U Shea UAMIC #### [address] [address] Bili Total 0.70 mg/dL Normal 0.20-1.20 [facility] Comment on above: Result Comment: Use of this assay is not recommended for patients undergoing treatment with eltrombopag due to the potential for falsely elevated results. Performed By: #### Anatoly Valdivia UAMIC #### [place] [id number] BUN/Creatinine Ratio 20.3 ratio Normal 10.0-22.0 [facility] Comment on above: Performed By: #### Anatoly Valdivia UAMIC #### [address] [address] Calcium [Mass/Vol] 8.8 mg/dL Normal 8.7-10.4 [facility] Comment on above: Performed By: #### Anatoly Vladivia UAMIC #### [address] [address] Chloride [Moles/Vol] 87 mmol/L Low 98-110 [facility] Comment on above: Performed By: #### U Shea UAMIC #### [address] [address] CO2 [Moles/Vol] 27 mmol/L Normal 22-32 [facility] Comment on above: Performed By: #### U Shea UAMIC #### [address] [address] Creatinine [Mass/Vol] 0.64 mg/dL Normal 0.60-1.40 [facility] Comment on above: Result Comment: Test ing performed on Openfolio analyzer using enzymatic creatinine methodology. Performed By: #### U Shea UAMIC #### [address] [address] Electrolyte Balance 16.0 mEq/L High 4.0-15.0 [facility] Comment on above: Performed By: #### U Shea UAMIC #### [address] [address] Globulin 3.3 G/dL Normal 2.5-4.2 [facility] Comment on above: Performed By: #### Anatoly Valdivia UAMIC #### [place] [id number] Glucose [Mass/Vol] 169 mg/dL High 82-115 [facility] Comment on above: Performed By: #### Anatoly Valdivia UAMIC #### [place] [id number] Potassium [Moles/Vol] 3.3 mmol/L Low 3.5-5.0 [facility] Comment on above: Performed By: #### Anatoly Valdivia UAMIC #### [place] [id number] Sodium [Moles/Vol] 130 mmol/L Low 136-145 [facility] Comment on above: Performed By: #### Anatoly Valdivia UAMIC #### [place] [id number] Total Protein 6.9 G/dL Normal 5.7-8.2 [facility] Comment on above: Performed By: #### Anatoly Valdivia UAMIC #### [place] [id number] Urea nitrogen [Mass/Vol] 13.0 mg/dL Normal 8.0-22.0 [facility] Comment on above: Performed By: #### Anatoly Valdivia UAMIC #### [address] [address] CVFLURVon 10-25-2024 FLU A PCR Negative Normal Negative [facility] Comment on above: Result [place]: [place] [id number] Performed By: #### Anatoly Valdivia UAMIC #### [place] [id number] FLU B PCR Negative Normal Negative [facility] Comment on above: Result Comment: [place] [id number] Performed By: #### Anatoly Valdivia UAMIC #### [place] [address] RSV PCR Negative Normal Negative [facility] Comment on above: Result [place]: [place] [id number] Performed By: #### Anatoly Valdivia UAMIC #### [place] [address] SARS-CoV-2 (COVID-19) RNA MIRNA+probe Ql (Unsp spec) Negative Normal Negative [facility] Comment on above: Result Comment: [place] s [id number] Results from the Xpert Xpress SARS-CoV-2/Flu/RSV or [...] positive results. FDA Approved. Performed By: #### Anatoly Valdivia UAMIC #### [place] [address] Tres 10-25-2024 Ferritin [Mass/Vol] 108.3 ng/mL Normal 26.0-388.0 [facility] Comment on above: Performed By: #### Anatoly Valdivia UAMIC #### [place] [address] FESon 10-25-2024 Iron [Mass/Vol] 24 ug/dL Low 65-175 [facility] Comment on above: Performed By: #### Fred G #### [place] [address] Iron Sat 9 % Normal [facility] Comment on above: Performed By: #### B G #### [facility] [address] [place] [address] TIBC 272 mcg/dL Normal 250-500 [facility] Comment on above: Performed By: #### B G #### [facility] [address] [place] [address] LABORATORYOrdered By: Olinda Cisneros on 10-25-2024 FLUAV RNA MIRNA+probe Ql (Resp) Negative 14 (10/25/24 7:02 AM) Normal Negative [facility] Auto Viro/Sero SS Comment on above: [place]: [place] [id number] FLUBV RNA MIRNA+probe Ql (Resp) Negative 15 (10/25/24 7:02 AM) Normal Negative [facility] Auto Viro/Sero SS Comment on above: Result Comment: Note s RSV PCR Negative 16 (10/25/24 7:02 AM) Normal Negative [facility] Auto Viro/Sero SS Comment on above: Result Comment: [place] [id number] SARS-CoV-2 (COVID-19) RNA MIRNA+probe Ql (Resp) Negative 12, 13 (10/25/24 7:02 AM) Normal Negative [facility] Auto Viro/Sero SS Comment on above: Result Comment: Note s [id number] Interpretive Data: R esults from the Xpert [...] 26.6 mmol/L Normal 22.0 - 30.0 mmol/L [facility] Main Rapid Comm SS HCO3 (Bld) [Moles/Vol] 25.6 mmol/L Normal 21.0 - 29.0 mmol/L AH [...] 10-25-2024 Magnesium [Mass/Vol] 1.8 mg/dL Normal 1.6-2.4 [facility] Comment on above: Performed By: #### U BERNA Valdivia #### [place] [address] No Panel Informationon 10-25 Legionella Urine Ag Presumptive negative for L. pneumophila serogroup 1 antigen in urine, suggesting no recent or current infection. Legionnaire's disease cannot be ruled out since other serogroups and species may also cause disease. [facility] Streptococcus Pneumoniae Urine Antig Presumptive negative for pneumococcal pneumonia, suggesting no current or recent pneumococcal infection. Infection due to Strep pneumoniae cannot be ruled out since the antigen present in the sample may be below the detection limit of the test. [facility] Comment on above: This test has [...] Tien Can MD Electronically signed By Tien aCn MD Dictated Date: 10/25/2024 2:13:50 AM Prelim Date: 10/25/2024 2:15:00 AM Sign Date: 10/25/2024 2:15:00 AM Ordering Provider: LUIS Spangler [facility] .Auto Diffon 10-24-2024 Basophil, Absolute 0.0 10 3/mcL Normal 0.0-0.3 [facility] Comment on above: Performed By: #### A DIFF, CBC, BMP, ANEU, MG, GFR #### [address] [address] Basophils/100 WBC (Bld) 0.5 % Normal 0.0-2.5 [facility] Comment on above: Performed By: #### A DIFF, CBC, BMP, ANEU, MG, GFR #### [address] [address] Eosinophil, Absolute 0.1 10 3/mcL Normal 0.0-0.7 [facility] Comment on above: Performed By: #### A DIFF, CBC, BMP, ANEU, MG, GFR #### [address] [address] Eosinophils/100 WBC (Bld) 1.4 % Normal 0.0-6.0 [facility] Comment on above: Performed By: #### A DIFF, CBC, BMP, ANEU, MG, GFR #### [address] [address] Lymphocyte, Absolute 0.7 10 3/mcL Low 0.9-4.3 [facility] Comment on above: Performed By: #### A DIFF, CBC, BMP, ANEU, MG, GFR #### [address] [address] Lymphocytes/100 WBC (Bld) 9.8 % Low 20.0-40.0 [facility] Comment on above: Performed By: #### A DIFF, CBC, BMP, ANEU, MG, GFR #### [address] [address] Monocyte, Absolute 0.6 10 3/mcL Normal 0.1-1.4 [facility] Comment on above: Performed By: #### A DIFF, CBC, BMP, ANEU, MG, GFR #### [address] [address] Monocytes/100 WBC (Bld) 7.6 % Normal 2.0-13.0 [facility] Comment on above: Performed By: #### A DIFF, CBC, BMP, ANEU, MG, GFR #### [address] [address] Neutrophils/100 WBC (Bld) 80.7 % High 50.0-75.0 [facility] Comment on above: Performed By: #### A DIFF, CBC, BMP, ANEU, MG, GFR #### [address] [address] .GFRon 10-24-2024 Estimated Glomerular Filtration Rate 99 ml/min/1.73sqm Normal [facility] Comment on above: Result Comment: Stages [...] DIFF, CBC, BMP, ANEU, MG, GFR #### [address] [address] .NEUABSon 10-24-2024 Neutrophil, Absolute 6.0 10 3/mcL Normal 2.3-8.1 [facility] Comment on above: Performed By: #### A DIFF, CBC, BMP, ANEU, MG, GFR #### [address] [address] BMPon 10-24-2024 BUN/Creatinine Ratio 29.4 ratio High 10.0-22.0 [facility] Comment on above: Performed By: #### A DIFF, CBC, BMP, ANEU, MG, GFR #### [place] [address] Calcium [Mass/Vol] 9.3 mg/dL Normal 8.7-10.4 [facility] Comment on above: Performed By: #### A DIFF, CBC, BMP, ANEU, MG, GFR #### [place] [address] Chloride [Moles/Vol] 93 mmol/L Low 98-110 [facility] Comment on above: Performed By: #### A DIFF, CBC, BMP, ANEU, MG, GFR #### [place] [address] CO2 [Moles/Vol] 25 mmol/L Normal 22-32 [facility] Comment on above: Performed By: #### A DIFF, CBC, BMP, ANEU, MG, GFR #### [place] [address] Creatinine [Mass/Vol] 0.51 mg/dL Low 0.60-1.40 [facility] Comment on above: Result Comment: Test ing performed on Openfolio analyzer using enzymatic creatinine methodology. Performed By: #### A DIFF, CBC, BMP, ANEU, MG, GFR #### [place] [address] Electrolyte Balance 11.0 mEq/L Normal 4.0-15.0 [facility] Comment on above: Performed By: #### A DIFF, CBC, BMP, ANEU, MG, GFR #### [place] [address] Glucose [Mass/Vol] 185 mg/dL High 82-115 [facility] Comment on above: Performed By: #### A DIFF, CBC, BMP, ANEU, MG, GFR #### [place] [address] Potassium [Moles/Vol] 3.5 mmol/L Normal 3.5-5.0 [facility] Comment on above: Performed By: #### A DIFF, CBC, BMP, ANEU, MG, GFR #### [place] [address] Sodium [Moles/Vol] 129 mmol/L Low 136-145 [facility] Comment on above: Performed By: #### A DIFF, CBC, BMP, ANEU, MG, GFR #### [place] [address] Urea nitrogen [Mass/Vol] 15.0 mg/dL Normal 8.0-22.0 [facility] Comment on above: Performed By: #### A DIFF, CBC, BMP, ANEU, MG, GFR #### [place] [address] CBCon 10-24-2024 Erythrocyte distribution width (RBC) [Ratio] 14.1 % Normal 11.5-15.5 [facility] Comment on above: Performed By: #### A DIFF, CBC, BMP, ANEU, MG, GFR #### [place] [address] Hematocrit (Bld) [Volume fraction] 36.1 % Low 40.0-52.0 [facility] Comment on above: Performed By: #### A DIFF, CBC, BMP, ANEU, MG, GFR #### [place] [address] Hgb 12.3 G/dL Low 13.0-17.5 [facility] Comment on above: Performed By: #### A DIFF, CBC, BMP, ANEU, MG, GFR #### [place] [address] MCH (RBC) [Entitic mass] 31.6 pg Normal 27.0-33.0 [facility] Comment on above: Performed By: #### A DIFF, CBC, BMP, ANEU, MG, GFR #### [place] [address] MCHC 34.2 G/dL Normal 32.0-36.0 [facility] Comment on above: Performed By: #### A DIFF, CBC, BMP, ANEU, MG, GFR #### [address] [address] MCV (RBC) [Entitic vol] 92.4 fL Normal 81.0-100.0 [facility] Comment on above: Performed By: #### A DIFF, CBC, BMP, ANEU, MG, GFR #### [place] [address] Platelet 234 10 3/mcL Normal 150-450 [facility] Comment on above: Performed By: #### A DIFF, CBC, BMP, ANEU, MG, GFR #### [place] [address] Platelet mean volume (Bld) [Entitic vol] 7.4 fL Normal 6.4-10.5 [facility] Comment on above: Performed By: #### A DIFF, CBC, BMP, ANEU, MG, GFR #### [place] [address] RBC 3.90 10 6/mcL Low 4.50-6.00 [facility] Comment on above: Performed By: #### A DIFF, CBC, BMP, ANEU, MG, GFR #### [place] [address] WBC 7.4 10 3/mcL Normal 4.5-10.8 [facility] Comment on above: Performed By: #### A DIFF, CBC, BMP, ANEU, MG, GFR #### [place] [address] LABORATORYOrdered By: SYSTEM SYSTEM on 10-24-2024 Natriuretic [...] 10-24-2024 Magnesium [Mass/Vol] 1.4 mg/dL Low 1.6-2.4 [facility] Comment on above: Performed By: #### A DIFF, CBC, BMP, ANEU, MG, GFR #### [place] [address] Magnesium [Mass/Vol] 1.5 mg/dL Low 1.6-2.4 [facility] Comment on above: Order Comment: no bl ood sent Performed By: #### A DIFF, CBC, BMP, ANEU, MG, GFR #### [place] [address] NAURon 10-24-2024 Sodium [Moles/Vol] 158 mmol/L Normal [facility] Comment on above: Order Comment: unlab eled cup 10/24/2024 01:34:45 EDT Performed By: #### A DIFF, CBC, BMP, ANEU, MG, GFR #### [place] [address] OSMOUon 10-24-2024 U Osmolality 458 mOsm/kg Normal 390-1090 [facility] Comment on above: Order Comment: unlab eled cup 10/24/2024 01:34:18 EDT Performed By: #### A DIFF, CBC, BMP, ANEU, MG, GFR #### [place] [address] PBNPon 10-24-2024 Natriuretic peptide B (Bld) [Mass/Vol] 922 pg/mL Normal 0-1800 [facility] Comment on above: Performed By: #### A DIFF, CBC, BMP, ANEU, MG, GFR #### [place] [address] UAon 10-24-2024 Color (U) Yellow Normal [facility] Comment on above: Order Comment: unlab eled cup 10/24/2024 01:35:19 EDT Performed By: #### U A, UAMIC #### [place] [address] Glucose (U) [Mass/Vol] 250 mg/dL Abnormal Negative [facility] Comment on above: Order Comment: unlab eled cup 10/24/2024 01:35:19 EDT Performed By: #### U A, UAMIC #### [address] [address] Ketones Ql (U) Negative Normal Neg-Trace [facility] Comment on above: Order Comment: unlab eled cup 10/24/2024 01:35:19 EDT Performed By: #### U A, UAMIC #### [place] [address] UA Appear Clear Normal Clear [facility] Comment on above: Order Comment: unlab eled cup 10/24/2024 01:35:19 EDT Performed By: #### U A, UAMIC #### [place] [address] UA Blood Large Abnormal Neg-Trace [facility] Comment on above: Order Comment: unlab eled cup 10/24/2024 01:35:19 EDT Performed By: #### U A, UAMIC #### [place] [address] UA Leuk Est Trace Normal Negative [facility] Comment on above: Order Comment: unlab eled cup 10/24/2024 01:35:19 EDT Performed By: #### U A, UAMIC #### [place] [address] UA Nitrite Negative Normal Negative [facility] Comment on above: Order Comment: unlab eled cup 10/24/2024 01:35:19 EDT Performed By: #### U A, UAMIC #### [place] [address] UA pH >=8.5 Abnormal 5.0 - 8.0 [facility] Comment on above: Order Comment: unlab eled cup 10/24/2024 01:35:19 EDT Performed By: #### U A, UAMIC #### [place] [address] UA Protein Trace Normal Negative [facility] Comment on above: Order Comment: unlab eled cup 10/24/2024 01:35:19 EDT Performed By: #### U A, UAMIC #### [address] [address] UA Spec Grav 1.010 Normal 1.006-1.029 [facility] Comment on above: Order Comment: unlab eled cup 10/24/2024 01:35:19 EDT Performed By: #### U A, UAMIC #### [address] [address] UA Specimen Type Not Given Normal [facility] Comment on above: Order Comment: unlab eled cup 10/24/2024 01:35:19 EDT Result Comment: Spec imen volumes less than 5 ml may not yield chemical or microscopic results truly reflective of renal function or general metabolic status. Performed By: #### U A UAMIC #### [place] [address] UA Urobilinogen 1.0 E.U./dL Normal 0.2-1.0 [facility] Comment on above: Order Comment: unlab eled cup 10/24/2024 01:35:19 EDT Performed By: #### U A, UAMIC #### [place] [address] Urobilinogen (U) [Mass/Vol] Negative Normal Neg-Trace [facility] Comment on above: Order Comment: unlab eled [facility] 10/24/2024 01:35:19 EDT Performed By: #### U A, UAMIC #### [address] [address] UAMICon 10-24-2024 UA Crenated RBCs 10-20 Abnormal [facility] Comment on above: Performed By: #### U A, UAMIC #### [address] [address] UA RBC 0-2 Normal 0-2 [facility] Comment on above: Performed By: #### U A, UAMIC #### [address] [address] UA Squam Epithelial 0-2 Normal 0-20 [facility] Comment on above: Performed By: #### U A, UAMIC #### [place] [address] UA WBC 0-2 Normal 0-5 [facility] Comment on above: Performed By: #### U Shea UAMIC #### [address] [address] XR CHEST 1 VIEWon 10-24-2024 XR CHEST 1 VIEW ORIGINAL EXAMINATION: Exam Title:ONE XRAY VIEW OF THE CHEST Completed Time: 10/24/2024 3:02 pm Procedure Description:CHEST ONE VIEW AP/PA COMPARISON: October 21, 2024 chest x-ray HISTORY: ORDERING SYSTEM PROVIDED HISTORY: Reason for Exam: crackles bilaterally recent cardiac arrest FINDINGS: Mild cardiomegaly. [id number] pulmonary vascular congestion. Basilar atelectasis. No evidence [...] 10/24/2024 3:04:51 PM Ordering Provider: NATASHA Spangler [facility] .Auto Diffon 10-23-2024 Basophil, Absolute 0.0 10 3/mcL Normal 0.0-0.3 [facility] Comment on above: Performed By: #### B G #### [address] [address] Basophils/100 WBC (Bld) 0.4 % Normal 0.0-2.5 [facility] Comment on above: Performed By: #### B G #### [facility] [address] [place] [address] Eosinophil, Absolute 0.1 10 3/mcL Normal 0.0-0.7 [facility] Comment on above: Performed By: #### B G #### [address] [address] Eosinophils/100 WBC (Bld) 1.1 % Normal 0.0-6.0 [facility] Comment on above: Performed By: #### B G #### [address] [place], [place] [address] Lymphocyte, Absolute 0.9 10 3/mcL Normal 0.9-4.3 [facility] Comment on above: Performed By: #### B G #### [facility] [address] [place] [id number] Lymphocytes/100 WBC (Bld) 12.3 % Low 20.0-40.0 [facility] Comment on above: Performed By: #### B G #### [address] [address] Monocyte, Absolute 0.5 10 3/mcL Normal 0.1-1.4 [facility] Comment on above: Performed By: #### B G #### [address] [id number] Monocytes/100 WBC (Bld) 7.5 % Normal 2.0-13.0 [facility] MAIN Comment on above: Performed By: #### B G #### [address] [address] Neutrophils/100 WBC (Bld) 78.7 % High 50.0-75.0 [facility] MAIN Comment on above: Performed By: #### B G #### [address] [address] .GFRon 10-23-2024 Estimated Glomerular Filtration Rate 96 ml/min/1.73sqm Normal [facility] MAIN Comment on above: Result Comment: Stages [...] results. Performed By: #### B G #### [address] [address] .NEUABSon 10-23-2024 Neutrophil, Absolute 5.7 10 3/mcL Normal 2.3-8.1 [facility] MAIN Comment on above: Performed By: #### B G #### [address] [address] BMPon 10-23-2024 BUN/Creatinine Ratio 28.1 ratio High 10.0-22.0 [facility] MAIN Comment on above: Performed By: #### B G #### [address] [address] Calcium [Mass/Vol] 9.2 mg/dL Normal 8.7-10.4 [facility] Comment on above: Performed By: #### B G #### [place] [id number] Chloride [Moles/Vol] 97 mmol/L Low 98-110 [facility] MAIN Comment on above: Performed By: #### B G #### [place] [id number] CO2 [Moles/Vol] 24 mmol/L Normal 22-32 [facility] Comment on above: Performed By: #### B G #### [place] [id number] Creatinine [Mass/Vol] 0.57 mg/dL Low 0.60-1.40 [facility] MAIN Comment on above: Result Comment: Test ing performed on Openfolio analyzer using enzymatic creatinine methodology. Performed By: #### B G #### [place] [address] Electrolyte Balance 11.0 mEq/L Normal 4.0-15.0 [facility] MAIN Comment on above: Performed By: #### B G #### [place] [id number] Glucose [Mass/Vol] 127 mg/dL High 82-115 [facility] Comment on above: Performed By: #### B G #### [address] [address] Potassium [Moles/Vol] 3.6 mmol/L Normal 3.5-5.0 [facility] Comment on above: Performed By: #### B G #### [place] [id number] Sodium [Moles/Vol] 132 mmol/L Low 136-145 [facility] Comment on above: Performed By: #### B G #### [place] [id number] Urea nitrogen [Mass/Vol] 16.0 mg/dL Normal 8.0-22.0 [facility]IN Comment on above: Performed By: #### B G #### [place] [id number] CBCon 10-23-2024 Erythrocyte distribution width (RBC) [Ratio] 14.3 % Normal 11.5-15.5 [facility] MAIN Comment on above: Performed By: #### B G #### [place] [id number] Hematocrit (Bld) [Volume fraction] 33.8 % Low 40.0-52.0 [facility] MAIN Comment on above: Performed By: #### B G #### [place] [address] Hgb 11.8 G/dL Low 13.0-17.5 [facility] MAIN Comment on above: Performed By: #### B G #### [place] [id number] MCH (RBC) [Entitic mass] 32.5 pg Normal 27.0-33.0 [facility] MAIN Comment on above: Performed By: #### B G #### [place] [address] MCHC 34.9 G/dL Normal 32.0-36.0 [facility]IN Comment on above: Performed By: #### B G #### [place] [id number] MCV (RBC) [Entitic vol] 93.2 fL Normal 81.0-100.0 [facility] MAIN Comment on above: Performed By: #### B G #### [place] [id number] Platelet 183 10 3/mcL Normal 150-450 [facility] MAIN Comment on above: Performed By: #### B G #### [facility] [address] [place] [address] Platelet mean volume (Bld) [Entitic vol] 7.6 fL Normal 6.4-10.5 [facility] MAIN Comment on above: Performed By: #### B G #### [facility] [address] [place] [address] RBC 3.62 10 6/mcL Low 4.50-6.00 [facility] MAIN Comment on above: Performed By: #### B G #### [facility] [address] [place] [address] WBC 7.2 10 3/mcL Normal 4.5-10.8 [facility] MAIN Comment on above: Performed By: #### B G #### [facility] [address] [place], [place] [id number] CT HEAD OR BRAIN W/O CONTRAS Ton [...] 10/23/2024 8:49:06 PM Ordering Provider: JUDIT Spangler [facility] MAIN MGon 10-23-2024 Magnesium [Mass/Vol] 1.8 mg/dL Normal 1.6-2.4 [facility] MAIN Comment on above: Performed By: #### B G #### [address] [address] .Auto Diffon 10-22-2024 Basophil, Absolute 0.0 10 3/mcL Normal 0.0-0.3 [facility] MAIN Comment on above: Performed By: #### A DIFF, CBC, BMP, ANEU, MG, GFR #### [address] [address] Basophils/100 WBC (Bld) 0.3 % Normal 0.0-2.5 [facility] MAIN Comment on above: Performed By: #### A DIFF, CBC, BMP, ANEU, MG, GFR #### [address] [address] Eosinophil, Absolute 0.0 10 3/mcL Normal 0.0-0.7 [facility] MAIN Comment on above: Performed By: #### A DIFF, CBC, BMP, ANEU, MG, GFR #### [address] [address] Eosinophils/100 WBC (Bld) 0.3 % Normal 0.0-6.0 [facility] MAIN Comment on above: Performed By: #### A DIFF, CBC, BMP, ANEU, MG, GFR #### [address] [address] Lymphocyte, Absolute 0.7 10 3/mcL Low 0.9-4.3 [facility] MAIN Comment on above: Performed By: #### A DIFF, CBC, BMP, ANEU, MG, GFR #### [address] [address] Lymphocytes/100 WBC (Bld) 7.3 % Low 20.0-40.0 [facility] MAIN Comment on above: Performed By: #### A DIFF, CBC, BMP, ANEU, MG, GFR #### [address] [address] Monocyte, Absolute 0.6 10 3/mcL Normal 0.1-1.4 [facility] MAIN Comment on above: Performed By: #### A DIFF, CBC, BMP, ANEU, MG, GFR #### [address] [address] Monocytes/100 WBC (Bld) 5.8 % Normal 2.0-13.0 [facility] MA[facility] Comment on above: Performed By: #### A DIFF, CBC, BMP, ANEU, MG, GFR #### [address] [address] Neutrophils/100 WBC (Bld) 86.3 % High 50.0-75.0 [facility] MAIN Comment on above: Performed By: #### A DIFF, CBC, BMP, ANEU, MG, GFR #### [address] [address] .GFRon 10-22-2024 Estimated Glomerular Filtration Rate 96 ml/min/1.73sqm Normal [facility] MAIN Comment on above: Result Comment: Stages [...] results. Performed By: #### B G #### [address] [address] .NEUABSon 10-22-2024 Neutrophil, Absolute 8.5 10 3/mcL High 2.3-8.1 [facility] MAIN Comment on above: Performed By: #### A DIFF, CBC, BMP, ANEU, MG, GFR #### [address] [address] B12on 10-22-2024 Cobalamin (Vitamin B12) [Mass/Vol] 255 pg/mL Normal 211-911 [facility] MAIN Comment on above: Performed By: #### U A, UAMIC #### [address] [address] BMPon 10-22-2024 BUN/Creatinine Ratio 24.1 ratio High 10.0-22.0 [facility] MAIN Comment on above: Performed By: #### A DIFF, CBC, BMP, ANEU, MG, GFR #### [place] [address] Calcium [Mass/Vol] 8.9 mg/dL Normal 8.7-10.4 [facility] Comment on above: Performed By: #### A DIFF, CBC, BMP, ANEU, MG, GFR #### [place] [address] Chloride [Moles/Vol] 94 mmol/L Low 98-110 [facility] MAIN Comment on above: Performed By: #### A DIFF, CBC, BMP, ANEU, MG, GFR #### [place] [address] CO2 [Moles/Vol] 26 mmol/L Normal 22-32 [facility] MAIN Comment on above: Performed By: #### A DIFF, CBC, BMP, ANEU, MG, GFR #### [place] [id number] Creatinine [Mass/Vol] 0.58 mg/dL Low 0.60-1.40 [facility] MAIN Comment on above: Result Comment: Test ing performed on Openfolio analyzer using enzymatic creatinine methodology. Performed By: #### A DIFF, CBC, BMP, ANEU, MG, GFR #### [place] [id number] Electrolyte Balance 9.0 mEq/L Normal 4.0-15.0 [facility] MAIN Comment on above: Performed By: #### A DIFF, CBC, BMP, ANEU, MG, GFR #### [place] [id number] Glucose [Mass/Vol] 135 mg/dL High 82-115 [facility] Comment on above: Performed By: #### A DIFF, CBC, BMP, ANEU, MG, GFR #### [place] [id number] Potassium [Moles/Vol] 3.4 mmol/L Low 3.5-5.0 [facility] Comment on above: Performed By: #### A DIFF, CBC, BMP, ANEU, MG, GFR #### [place] [id number] Sodium [Moles/Vol] 129 mmol/L Low 136-145 [facility] Comment on above: Performed By: #### A DIFF, CBC, BMP, ANEU, MG, GFR #### [place] [address] Urea nitrogen [Mass/Vol] 14.0 mg/dL Normal 8.0-22.0 [facility] MAIN Comment on above: Performed By: #### A DIFF, CBC, BMP, ANEU, MG, GFR #### [place] [address] CBCon 10-22-2024 Erythrocyte distribution width (RBC) [Ratio] 14.0 % Normal 11.5-15.5 [facility] MAIN Comment on above: Performed By: #### A DIFF, CBC, BMP, ANEU, MG, GFR #### [place] [id number] Hematocrit (Bld) [Volume fraction] 35.0 % Low 40.0-52.0 [facility] MAIN Comment on above: Performed By: #### A DIFF, CBC, BMP, ANEU, MG, GFR #### [place] [address] Hgb 12.1 G/dL Low 13.0-17.5 [facility] MAIN Comment on above: Performed By: #### A DIFF, CBC, BMP, ANEU, MG, GFR #### [place] [address] MCH (RBC) [Entitic mass] 31.8 pg Normal 27.0-33.0 [facility] MAIN Comment on above: Performed By: #### A DIFF, CBC, BMP, ANEU, MG, GFR #### [place] [address] MCHC 34.5 G/dL Normal 32.0-36.0 [facility] MAIN Comment on above: Performed By: #### A DIFF, CBC, BMP, ANEU, MG, GFR #### [place] [address] MCV (RBC) [Entitic vol] 92.1 fL Normal 81.0-100.0 [facility] MAIN Comment on above: Performed By: #### A DIFF, CBC, BMP, ANEU, MG, GFR #### [place] [address] Platelet 202 10 3/mcL Normal 150-450 [facility] MAIN Comment on above: Performed By: #### A DIFF, CBC, BMP, ANEU, MG, GFR #### [place] [address] Platelet mean volume (Bld) [Entitic vol] 7.6 fL Normal 6.4-10.5 [facility] MAIN Comment on above: Performed By: #### A DIFF, CBC, BMP, ANEU, MG, GFR #### [place] [address] RBC 3.80 10 6/mcL Low 4.50-6.00 [facility] MAIN Comment on above: Performed By: #### A DIFF, CBC, BMP, ANEU, MG, GFR #### [place] [address] WBC 9.8 10 3/mcL Normal 4.5-10.8 [facility] MAIN Comment on above: Performed By: #### A DIFF, CBC, BMP, ANEU, MG, GFR #### [place] [address] LABORATORYOrdered By: SYSTEM SYSTEM on 10-22-2024 Cobalamin (Vitamin B12) [Mass/Vol] 255 pg/mL Normal 211 - 911 pg/mL ADM SS MGon 10-22-2024 Magnesium [Mass/Vol] 1.9 mg/dL Normal 1.6-2.4 [facility] MAIN Comment on above: Performed By: #### B G #### [address] [address] MRI BRAIN W/O CONTRASTon MRI BRAIN W/O [...] 10/22/2024 5:41:11 PM Ordering Provider: MO Spangler [facility] MAIN .Auto Diffon 10-21-2024 Basophil, Absolute 0.0 10 3/mcL Normal 0.0-0.3 [facility] MAIN Comment on above: Performed By: #### A DIFF, CBC, BMP, ANEU, MG, GFR #### [place] [id number] [address] [place] [address] Basophils/100 WBC (Bld) 0.1 % Normal 0.0-2.5 [facility] MAIN Comment on above: Performed By: #### A DIFF, CBC, BMP, ANEU, MG, GFR #### [address] [address] Eosinophil, Absolute 0.0 10 3/mcL Normal 0.0-0.7 [facility] MAIN Comment on above: Performed By: #### A DIFF, CBC, BMP, ANEU, MG, GFR #### [address] [address] Eosinophils/100 WBC (Bld) 0.1 % Normal 0.0-6.0 [facility] MAIN Comment on above: Performed By: #### A DIFF, CBC, BMP, ANEU, MG, GFR #### [address] [address] Lymphocyte, Absolute 0.6 10 3/mcL Low 0.9-4.3 [facility] MAIN Comment on above: Performed By: #### A DIFF, CBC, BMP, ANEU, MG, GFR #### [address] [address] Lymphocytes/100 WBC (Bld) 5.0 % Low 20.0-40.0 [facility] MAIN Comment on above: Performed By: #### A DIFF, CBC, BMP, ANEU, MG, GFR #### [address] [address] Monocyte, Absolute 0.8 10 3/mcL Normal 0.1-1.4 [facility] MAIN Comment on above: Performed By: #### A DIFF, CBC, BMP, ANEU, MG, GFR #### [address] [address] Monocytes/100 WBC (Bld) 6.0 % Normal 2.0-13.0 [facility] MAIN Comment on above: Performed By: #### A DIFF, CBC, BMP, ANEU, MG, GFR #### [address] [address] Neutrophils/100 WBC (Bld) 88.8 % High 50.0-75.0 [facility] MAIN Comment on above: Performed By: #### A DIFF, CBC, BMP, ANEU, MG, GFR #### [address] [address] Basophil, Absolute 0.0 10 3/mcL Normal 0.0-0.3 [facility] MAIN Comment on above: Performed By: #### A DIFF, CBC, BMP, ANEU, MG, GFR #### [address] [address] Basophils/100 WBC (Bld) 0.1 % Normal 0.0-2.5 [facility] MAIN Comment on above: Performed By: #### A DIFF, CBC, BMP, ANEU, MG, GFR #### [address] [address] Eosinophil, Absolute 0.0 10 3/mcL Normal 0.0-0.7 [facility] MAIN Comment on above: Performed By: #### A DIFF, CBC, BMP, ANEU, MG, GFR #### [address] [address] Eosinophils/100 WBC (Bld) 0.0 % Normal 0.0-6.0 [facility] MAIN Comment on above: Performed By: #### A DIFF, CBC, BMP, ANEU, MG, GFR #### [address] [address] Lymphocyte, Absolute 0.7 10 3/mcL Low 0.9-4.3 [facility] MAIN Comment on above: Performed By: #### A DIFF, CBC, BMP, ANEU, MG, GFR #### [address] [address] Lymphocytes/100 WBC (Bld) 5.7 % Low 20.0-40.0 [facility] MAIN Comment on above: Performed By: #### A DIFF, CBC, BMP, ANEU, MG, GFR #### [address] [address] Monocyte, Absolute 0.7 10 3/mcL Normal 0.1-1.4 [facility] MAIN Comment on above: Performed By: #### A DIFF, CBC, BMP, ANEU, MG, GFR #### [address] [address] Monocytes/100 WBC (Bld) 5.8 % Normal 2.0-13.0 [facility] MAIN Comment on above: Performed By: #### A DIFF, CBC, BMP, ANEU, MG, GFR #### [address] [address] Neutrophils/100 WBC (Bld) 88.4 % High 50.0-75.0 [facility] MAIN Comment on above: Performed By: #### A DIFF, CBC, BMP, ANEU, MG, GFR #### [address] [address] .GFRon 10-21-2024 Estimated Glomerular Filtration Rate 87 ml/min/1.73sqm [facility] MAIN Comment on above: Result Comment: [...] DIFF, CBC, BMP, ANEU, MG, GFR #### [address] [address] Estimated Glomerular Filtration Rate 93 ml/min/1.73sqm [facility] MAIN Comment on above: Result Comment: [...] DIFF, CBC, BMP, ANEU, MG, GFR #### [place] [address] .NEUABSon 10-21-2024 Neutrophil, Absolute 11.3 10 3/mcL High 2.3-8.1 [facility] MAIN Comment on above: Performed By: #### A DIFF, CBC, BMP, ANEU, MG, GFR #### [place] [address] Neutrophil, Absolute 10.5 10 3/mcL High 2.3-8.1 [facility] MAIN Comment on above: Performed By: #### A DIFF, CBC, BMP, ANEU, MG, GFR #### [place] [address] BGon 10-21-2024 Base excess Calc (Bld) [Moles/Vol] -5.8000 mmol/L Normal [facility] MAIN Comment on above: Performed By: #### A DIFF, CBC, BMP, ANEU, MG, GFR #### [place] [address] CO2 [Moles/Vol] 19.2 mmol/L Low 22.0-30.0 [facility] MAIN Comment on above: Performed By: #### A DIFF, CBC, BMP, ANEU, MG, GFR #### [place] [address] HCO3 (Bld) [Moles/Vol] 18.2 mmol/L Low 21.0-29.0 [facility] MAIN Comment on above: Performed By: #### A DIFF, CBC, BMP, ANEU, MG, GFR #### [place] [address] Oxygen (Bld) [Partial pressure] 139.2 mm[Hg] High 74.0-108.0 [facility] MAIN Comment on above: Performed By: #### A DIFF, CBC, BMP, ANEU, MG, GFR #### [place] [address] Oxygen saturation in Blood 99.1 % High 92.0-96.0 [facility] MAIN Comment on above: Performed By: #### A DIFF, CBC, BMP, ANEU, MG, GFR #### [place] [address] pCO2 31.9 mmHg Low 32.0-46.0 [facility] MAIN Comment on above: Performed By: #### A DIFF, CBC, BMP, ANEU, MG, GFR #### [address] [address] pH (Bld) 7.375 [pH] Low 7.380-7.460 [facility] MAIN Comment on above: Performed By: #### A DIFF, CBC, BMP, ANEU, MG, GFR #### [place] [address] BMPon 10-21-2024 BUN/Creatinine Ratio 20.3 ratio Normal 10.0-22.0 [facility] MAIN Comment on above: Performed By: #### A DIFF, CBC, BMP, ANEU, MG, GFR #### [place] [address] Calcium [Mass/Vol] 9.5 mg/dL Normal 8.7-10.4 [facility] Comment on above: Performed By: #### A DIFF, CBC, BMP, ANEU, MG, GFR #### [place] [address] Chloride [Moles/Vol] 92 mmol/L Low 98-110 [facility] MAIN Comment on above: Performed By: #### A DIFF, CBC, BMP, ANEU, MG, GFR #### [place] [address] CO2 [Moles/Vol] 20 mmol/L Low 22-32 [facility] MAIN Comment on above: Performed By: #### A DIFF, CBC, BMP, ANEU, MG, GFR #### [place] [id number] Creatinine [Mass/Vol] 0.64 mg/dL Normal 0.60-1.40 [facility] MAIN Comment on above: Result Comment: Test ing performed on Openfolio analyzer using enzymatic creatinine methodology. Performed By: #### A DIFF, CBC, BMP, ANEU, MG, GFR #### [place] [id number] Electrolyte Balance 15.0 mEq/L Normal 4.0-15.0 [facility] MAIN Comment on above: Performed By: #### A DIFF, CBC, BMP, ANEU, MG, GFR #### [place] [address] Glucose [Mass/Vol] 145 mg/dL High 82-115 [facility] Comment on above: Performed By: #### A DIFF, CBC, BMP, ANEU, MG, GFR #### [place] [id number] Potassium [Moles/Vol] 3.6 mmol/L Normal 3.5-5.0 [facility] MAIN Comment on above: Performed By: #### A DIFF, CBC, BMP, ANEU, MG, GFR #### [place] [id number] Sodium [Moles/Vol] 127 mmol/L Low 136-145 [facility] Comment on above: Performed By: #### A DIFF, CBC, BMP, ANEU, MG, GFR #### [place] [address] Urea nitrogen [Mass/Vol] 13.0 mg/dL Normal 8.0-22.0 [facility] MAIN Comment on above: Performed By: #### A DIFF, CBC, BMP, ANEU, MG, GFR #### [place] [id number] [facility] 10-21-2024 Erythrocyte distribution width (RBC) [Ratio] 14.1 % Normal 11.5-15.5 [facility] MAIN Comment on above: Performed By: #### A DIFF, CBC, BMP, ANEU, MG, GFR #### [place] [address] Hematocrit (Bld) [Volume fraction] 39.5 % Low 40.0-52.0 [facility] MAIN Comment on above: Performed By: #### A DIFF, CBC, BMP, ANEU, MG, GFR #### [place] [address] Hgb 13.5 G/dL Normal 13.0-17.5 [facility] MAIN Comment on above: Performed By: #### A DIFF, CBC, BMP, ANEU, MG, GFR #### [address] [address] MCH (RBC) [Entitic mass] 31.7 pg Normal 27.0-33.0 [facility] MAIN Comment on above: Performed By: #### A DIFF, CBC, BMP, ANEU, MG, GFR #### [place] [id number] MCHC 34.2 G/dL Normal 32.0-36.0 [facility] MAIN Comment on above: Performed By: #### A DIFF, CBC, BMP, ANEU, MG, GFR #### [place] [id number] MCV (RBC) [Entitic vol] 92.6 fL Normal 81.0-100.0 [facility] MAIN Comment on above: Performed By: #### A DIFF, CBC, BMP, ANEU, MG, GFR #### [place] [address] Platelet 262 10 3/mcL Normal 150-450 [facility] MAIN Comment on above: Performed By: #### A DIFF, CBC, BMP, ANEU, MG, GFR #### [place] [address] Platelet mean volume (Bld) [Entitic vol] 7.6 fL Normal 6.4-10.5 [facility] MAIN Comment on above: Performed By: #### A DIFF, CBC, BMP, ANEU, MG, GFR #### [place] [id number] RBC 4.27 10 6/mcL Low 4.50-6.00 [facility] MAIN Comment on above: Performed By: #### A DIFF, CBC, BMP, ANEU, MG, GFR #### [place] [id number] WBC 12.8 10 3/mcL High 4.5-10.8 [facility] MAIN Comment on above: Performed By: #### A DIFF, CBC, BMP, ANEU, MG, GFR #### [place] [address] Erythrocyte distribution width (RBC) [Ratio] 13.9 % Normal 11.5-15.5 [facility] MAIN Comment on above: Performed By: #### A DIFF, CBC, BMP, ANEU, MG, GFR #### [place] [address] Hematocrit (Bld) [Volume fraction] 39.8 % Low 40.0-52.0 [facility] MAIN Comment on above: Performed By: #### A DIFF, CBC, BMP, ANEU, MG, GFR #### [place] [address] Hgb 13.6 G/dL Normal 13.0-17.5 [facility] MAIN Comment on above: Performed By: #### A DIFF, CBC, BMP, ANEU, MG, GFR #### [place] [address] MCH (RBC) [Entitic mass] 31.9 pg Normal 27.0-33.0 [facility] MAIN Comment on above: Performed By: #### A DIFF, CBC, BMP, ANEU, MG, GFR #### [place] [address] MCHC 34.3 G/dL Normal 32.0-36.0 [facility] MAIN Comment on above: Performed By: #### A DIFF, CBC, BMP, ANEU, MG, GFR #### [place] [address] MCV (RBC) [Entitic vol] 93.0 fL Normal 81.0-100.0 [facility] MAIN Comment on above: Performed By: #### A DIFF, CBC, BMP, ANEU, MG, GFR #### [place] [address] Platelet 252 10 3/mcL Normal 150-450 [facility] MAIN Comment on above: Performed By: #### A DIFF, CBC, BMP, ANEU, MG, GFR #### [place] [address] Platelet mean volume (Bld) [Entitic vol] 7.9 fL Normal 6.4-10.5 [facility] MAIN Comment on above: Performed By: #### A DIFF, CBC, BMP, ANEU, MG, GFR #### [place] [address] RBC 4.28 10 6/mcL Low 4.50-6.00 [facility] MAIN Comment on above: Performed By: #### A DIFF, CBC, BMP, ANEU, MG, GFR #### [place] [id number] WBC 11.9 10 3/mcL High 4.5-10.8 [facility] MAIN Comment on above: Performed By: #### A DIFF, CBC, BMP, ANEU, MG, GFR #### [place] [id number] CMPon 10-21-2024 Albumin Level 4.0 G/dL Normal 3.2-4.8 [facility] MAIN Comment on above: Performed By: #### A DIFF, CBC, BMP, ANEU, MG, GFR #### [place] [address] Albumin/Globulin [Mass ratio] 1.5 {ratio} Normal 0.9-1.6 [facility] MAIN Comment on above: Performed By: #### A DIFF, CBC, BMP, ANEU, MG, GFR #### [place] [address] ALP [Catalytic activity/Vol] 73 U/L Normal 38-126 [facility] MAIN Comment on above: Performed By: #### A DIFF, CBC, BMP, ANEU, MG, GFR #### [place] [address] ALT [Catalytic activity/Vol] 22 U/L Normal 12-55 [facility] MAIN Comment on above: Performed By: #### A DIFF, CBC, BMP, ANEU, MG, GFR #### [place] [address] AST [Catalytic activity/Vol] 32 U/L Normal 8-34 [facility] MAIN Comment on above: Performed By: #### A DIFF, CBC, BMP, ANEU, MG, GFR #### [place] [address] Bili Total 0.70 mg/dL Normal 0.20-1.20 [facility] MAIN Comment on above: Result Comment: Use of this assay is not recommended for patients undergoing treatment with eltrombopag due to the potential for falsely elevated results. Performed By: #### A DIFF, CBC, BMP, ANEU, MG, GFR #### [place] [id number] BUN/Creatinine Ratio 22.8 ratio High 10.0-22.0 [facility] MAIN Comment on above: Performed By: #### A DIFF, CBC, BMP, ANEU, MG, GFR #### [place] [id number] Calcium [Mass/Vol] 9.3 mg/dL Normal 8.7-10.4 [facility] Comment on above: Performed By: #### A DIFF, CBC, BMP, ANEU, MG, GFR #### [place] [id number] Chloride [Moles/Vol] 92 mmol/L Low 98-110 [facility] Comment on above: Performed By: #### A DIFF, CBC, BMP, ANEU, MG, GFR #### [place] [id number] CO2 [Moles/Vol] 21 mmol/L Low 22-32 [facility] Comment on above: Performed By: #### A DIFF, CBC, BMP, ANEU, MG, GFR #### [place] [address] Creatinine [Mass/Vol] 0.79 mg/dL Normal 0.60-1.40 [facility] Comment on above: Result Comment: Test ing performed on [employer] analyzer using enzymatic creatinine methodology. Performed By: #### A DIFF, CBC, BMP, ANEU, MG, GFR #### [place] [address] Electrolyte Balance 13.0 mEq/L Normal 4.0-15.0 [facility] Comment on above: Performed By: #### A DIFF, CBC, BMP, ANEU, MG, GFR #### [place] [id number] Globulin 2.7 G/dL Normal 2.5-4.2 [facility] Comment on above: Performed By: #### A DIFF, CBC, BMP, ANEU, MG, GFR #### [place] [id number] Glucose [Mass/Vol] 182 mg/dL High 82-115 [facility] Comment on above: Performed By: #### A DIFF, CBC, BMP, ANEU, MG, GFR #### [address] [address] Potassium [Moles/Vol] 3.9 mmol/L Normal 3.5-5.0 [facility] Comment on above: Performed By: #### A DIFF, CBC, BMP, ANEU, MG, GFR #### [address] [id number] Sodium [Moles/Vol] 126 mmol/L Low 136-145 [facility] Comment on above: Performed By: #### A DIFF, CBC, BMP, ANEU, MG, GFR #### [address] [address] Total Protein 6.7 G/dL Normal 5.7-8.2 [facility] Comment on above: Performed By: #### A DIFF, CBC, BMP, ANEU, MG, GFR #### [address] [address] Urea nitrogen [Mass/Vol] 18.0 mg/dL Normal 8.0-22.0 [facility] Comment on above: Performed By: #### A DIFF, CBC, BMP, ANEU, MG, GFR #### [address] [address] LABORATORYOrdered By: SYSTEM SYSTEM on 10-21-2024 Troponin I.cardiac DL <= 0.01 ng/mL [Mass/Vol] 18 ng/L Normal 0 - 54 ng/L [facility] Comment on above: Interpretive Data: High Sensitive Troponin I Reference Ranges: Female: 0-34 ng/L Male: 0-54 ng/L Testing performed on [employer] analyzer using direct chemiluminescent technology. LABORATORYOrdered By: [...] Sensitivity Troponin I 18 ng/L Normal 0-54 [facility] Comment on above: Order Comment: Pls a dd on to the samples drawn this afternoon if possible. Result Comment: High Sensitive Troponin I Reference Ranges: Female: 0-34 ng/L Male: 0-54 ng/L Testing performed on [employer] analyzer using direct chemiluminescent technology. Performed By: #### A DIFF, CBC, BMP, ANEU, MG, GFR #### [address] [address] XR ENTERIC TUBE PLACEMENTon 10-21-2024 XR ENTERIC [...] 10/21/2024 3:45:47 PM Ordering Provider: LUIS Spangler [facility] .Auto Diffon 10-20-2024 Basophil, Absolute 0.0 10 3/mcL Normal 0.0-0.3 [facility] Comment on above: Performed By: #### A DIFF, CBC, BMP, ANEU, MG, GFR #### [address] [address] Basophils/100 WBC (Bld) 0.1 % Normal 0.0-2.5 [facility] Comment on above: Performed By: #### A DIFF, CBC, BMP, ANEU, MG, GFR #### [address] [address] Eosinophils/100 WBC (Bld) 0.1 % Normal 0.0-6.0 [facility] Comment on above: Performed By: #### A DIFF, CBC, BMP, ANEU, MG, GFR #### [address] [address] Lymphocyte, Absolute 0.6 10 3/mcL Low 0.9-4.3 [facility] Comment on above: Performed By: #### A DIFF, CBC, BMP, ANEU, MG, GFR #### [address] [address] Lymphocytes/100 WBC (Bld) 5.6 % Low 20.0-40.0 [facility] Comment on above: Performed By: #### A DIFF, CBC, BMP, ANEU, MG, GFR #### [address] [address] Monocyte, Absolute 0.5 10 3/mcL Normal 0.1-1.4 [facility] Comment on above: Performed By: #### A DIFF, CBC, BMP, ANEU, MG, GFR #### [address] [address] Monocytes/100 WBC (Bld) 5.2 % Normal 2.0-13.0 [facility] Comment on above: Performed By: #### A DIFF, CBC, BMP, ANEU, MG, GFR #### [address] [address] Neutrophils/100 WBC (Bld) 89.0 % High 50.0-75.0 [facility] Comment on above: Performed By: #### A DIFF, CBC, BMP, ANEU, MG, GFR #### [address] [address] Basophil, Absolute 0.0 10 3/mcL Normal 0.0-0.3 [facility] Comment on above: Performed By: #### F ERR, CBC, FE, ANEU, ADIFF #### [address] [address] Lymphocyte, Absolute 0.8 10 3/mcL Low 0.9-4.3 [facility] Comment on above: Performed By: #### F ERR, CBC, FE, ANEU, ADIFF #### [place] [id number] Monocyte, Absolute 0.5 10 3/mcL Normal 0.1-1.4 [facility] Comment on above: Performed By: #### F ERR, CBC, FE, ANEU, ADIFF #### [address] [address] .Auto DiffOrdered By: SYSTEM SYSTEM on 10-20-2024 Basophils/100 WBC (Bld) 0.4 % Normal 0.0-2.5 A O Workflow SS Comment on above: Performed By: #### F ERR, CBC, FE, ANEU, ADIFF #### [address] [address] Eosinophil, Absolute 0.0 103/mcL Normal 0.0-0.7 AO Workflow SS Comment on above: Performed By: #### F ERR, CBC, FE, ANEU, ADIFF #### [address] [address] Performed By: #### A DIFF, CBC, BMP, ANEU, MG, GFR #### [address] [address] Eosinophils/100 WBC (Bld) 0.4 % Normal 0.0-6.0 AO Workflow SS Comment on above: Performed By: #### F ERR, CBC, FE, ANEU, ADIFF #### [address] [address] Lymphocytes/100 WBC (Bld) 13.4 % Low 20.0-40.0 AO Workflow SS Comment on above: Performed By: #### F ERR, CBC, FE, ANEU, ADIFF #### [place] [id number] Monocytes/100 WBC (Bld) 9.1 % Normal 2.0-13.0 A O Workflow SS Comment on above: Performed By: #### F ERR, CBC, FE, ANEU, ADIFF #### [place] [phone] [place], [place] [address] Neutrophils/100 WBC (Bld) 76.7 % High 50.0-75.0 AO Workflow SS Comment on above: Performed By: #### F ERR, CBC, FE, ANEU, ADIFF #### [place] [phone] [place], [place] [address] .GFRon 10-20-2024 Estimated Glomerular Filtration Rate 99 ml/min/1.73sqm [facility] MAIN Comment on above: Result Comment: [...] DIFF, CBC, BMP, ANEU, MG, GFR #### [address] [address] Estimated Glomerular Filtration Rate 97 ml/min/1.73sqm [facility] Comment on above: Result Comment: Stages of [...] F ERR, CBC, FE, ANEU, ADIFF #### [address] [address] .GFROrdered By: KRISTIN Noyola on 10-20-2024 Estimated Glomerular Filtration Rate [...] F ERR, CBC, FE, ANEU, ADIFF #### [address] [address] .MDWon 10-20-2024 Monocyte Distribution Width 17.30 Normal 0.00-20.00 [facility] Comment on above: Result Comment: For ED adult patients suspected of sepsis, MDW<=20.0 does not rule out sepsis or risk of sepsis Performed By: #### F ERR, CBC, FE, ANEU, ADIFF #### [address] [address] .NEUABSon 10-20-2024 Neutrophil, Absolute 9.0 10 3/mcL High 2.3-8.1 [facility] Comment on above: Performed By: #### A DIFF, CBC, BMP, ANEU, MG, GFR #### [address] [address] Neutrophil, Absolute 4.5 10 3/mcL Normal 2.3-8.1 [facility] Comment on above: Performed By: #### F ERR, CBC, FE, ANEU, ADIFF #### [facility] [address] [place], [place] [address] BMPon 10-20-2024 BUN/Creatinine Ratio 19.2 ratio Normal 10.0-22.0 [facility] Comment on above: Performed By: #### A DIFF, CBC, BMP, ANEU, MG, GFR #### [address] [address] Calcium [Mass/Vol] 9.3 mg/dL Normal 8.7-10.4 [facility] Comment on above: Performed By: #### A DIFF, CBC, BMP, ANEU, MG, GFR #### [address] [address] Chloride [Moles/Vol] 92 mmol/L Low 98-110 [facility] Comment on above: Performed By: #### A DIFF, CBC, BMP, ANEU, MG, GFR #### [address] [address] CO2 [Moles/Vol] 22 mmol/L Normal 22-32 [facility] Comment on above: Performed By: #### A DIFF, CBC, BMP, ANEU, MG, GFR #### [address] [address] Creatinine [Mass/Vol] 0.52 mg/dL Low 0.60-1.40 [facility] Comment on above: Result Comment: Test ing performed on Open[employer] analyzer using enzymatic creatinine methodology. Performed By: #### A DIFF, CBC, BMP, ANEU, MG, GFR #### [address] [address] Electrolyte Balance 13.0 mEq/L Normal 4.0-15.0 [facility] Comment on above: Performed By: #### A DIFF, CBC, BMP, ANEU, MG, GFR #### [address] [address] Glucose [Mass/Vol] 151 mg/dL High 82-115 [facility] Comment on above: Performed By: #### A DIFF, CBC, BMP, ANEU, MG, GFR #### [address] [address] Potassium [Moles/Vol] 3.6 mmol/L Normal 3.5-5.0 [facility] Comment on above: Performed By: #### A DIFF, CBC, BMP, ANEU, MG, GFR #### [address] [address] Sodium [Moles/Vol] 127 mmol/L Low 136-145 [facility] Comment on above: Performed By: #### A DIFF, CBC, BMP, ANEU, MG, GFR #### [address] [address] Urea nitrogen [Mass/Vol] 10.0 mg/dL Normal 8.0-22.0 [facility] Comment on above: Performed By: #### A DIFF, CBC, BMP, ANEU, MG, GFR #### [address] [address] BUN/Creatinine Ratio 20 ratio Normal 7-27 [facility] Comment on above: Performed By: #### F ERR, CBC, FE, ANEU, ADIFF #### [address] [address] Calcium [Mass/Vol] 8.8 mg/dL Normal 8.4-10.2 [facility] Comment on above: Performed By: #### F ERR, CBC, FE, ANEU, ADIFF #### [address] [address] Chloride [Moles/Vol] 90 mmol/L Low 98-107 [facility] Comment on above: Performed By: #### F ERR, CBC, FE, ANEU, ADIFF #### [address] [address] CO2 [Moles/Vol] 28 mmol/L Normal 23-31 [facility] Comment on above: Performed By: #### F ERR, CBC, FE, ANEU, ADIFF #### [address] [address] Creatinine [Mass/Vol] 0.56 mg/dL Low 0.67-1.17 [facility] Comment on above: Performed By: #### F ERR, CBC, FE, ANEU, ADIFF #### [address] [address] Electrolyte Balance 5.0 mEq/L Normal 4.0-15.0 [facility] Comment on above: Performed By: #### F ERR, CBC, FE, ANEU, ADIFF #### [address] [address] Glucose [Mass/Vol] 140 mg/dL High 83-110 [facility] Comment on above: Performed By: #### F ERR, CBC, FE, ANEU, ADIFF #### [address] [address] Potassium [Moles/Vol] 3.8 mmol/L Normal 3.5-5.1 [facility] Comment on above: Performed By: #### F ERR, CBC, FE, ANEU, ADIFF #### [address] [address] Sodium [Moles/Vol] 123 mmol/L Low 136-145 [facility] Comment on above: Performed By: #### F ERR, CBC, FE, ANEU, ADIFF #### [address] [address] Urea nitrogen [Mass/Vol] 11 mg/dL Normal 7-18 [facility] Comment on above: Performed By: #### F ERR, CBC, FE, ANEU, ADIFF #### [address] [address] CBCon 10-20-2024 Erythrocyte distribution width (RBC) [Ratio] 13.9 % Normal 11.5-15.5 [facility] Comment on above: Performed By: #### A DIFF, CBC, BMP, ANEU, MG, GFR #### [place] [address] Hematocrit (Bld) [Volume fraction] 38.7 % Low 40.0-52.0 [facility] Comment on above: Performed By: #### A DIFF, CBC, BMP, ANEU, MG, GFR #### [place] [address] Hgb 13.1 G/dL Normal 13.0-17.5 [facility] Comment on above: Performed By: #### A DIFF, CBC, BMP, ANEU, MG, GFR #### [place] [id number] MCH (RBC) [Entitic mass] 31.5 pg Normal 27.0-33.0 [facility] Comment on above: Performed By: #### A DIFF, CBC, BMP, ANEU, MG, GFR #### [place] [address] MCHC 33.8 G/dL Normal 32.0-36.0 [facility] Comment on above: Performed By: #### A DIFF, CBC, BMP, ANEU, MG, GFR #### [place] [address] MCV (RBC) [Entitic vol] 93.0 fL Normal 81.0-100.0 [facility] Comment on above: Performed By: #### A DIFF, CBC, BMP, ANEU, MG, GFR #### [place] [address] Platelet 235 10 3/mcL Normal 150-450 [facility] Comment on above: Performed By: #### A DIFF, CBC, BMP, ANEU, MG, GFR #### [place] [address] Platelet mean volume (Bld) [Entitic vol] 7.5 fL Normal 6.4-10.5 [facility] Comment on above: Performed By: #### A DIFF, CBC, BMP, ANEU, MG, GFR #### [address] [place], [place] [address] RBC 4.16 10 6/mcL Low 4.50-6.00 [facility] Comment on above: Performed By: #### A DIFF, CBC, BMP, ANEU, MG, GFR #### [facility] [address] [place] [address] WBC 10.1 10 3/mcL Normal 4.5-10.8 [facility] Comment on above: Performed By: #### A DIFF, CBC, BMP, ANEU, MG, GFR #### [facility] [address] [place] [address] Hgb 12.7 G/dL Low 13.0-17.5 [facility] Comment on above: Performed By: #### F ERR, CBC, FE, ANEU, ADIFF #### [address] [address] Platelet 202 10 3/mcL Normal 150-450 [facility] Comment on above: Performed By: #### F ERR, CBC, FE, ANEU, ADIFF #### [address] [address] RBC 3.92 10 6/mcL Low 4.50-6.00 [facility] Comment on above: Performed By: #### F ERR, CBC, FE, ANEU, ADIFF #### [address] [address] WBC 5.9 10 3/mcL Normal 4.5-10.8 [facility] Comment on above: Performed By: #### F ERR, CBC, FE, ANEU, ADIFF #### [address] [address] CBCOrdered By: SYSTEM SYSTEM on 10-20-2024 Erythrocyte distribution width (RBC) [Ratio] 14.1 % Normal 11.5-15.5 AO Workflow SS Comment on above: Performed By: #### F ERR, CBC, FE, ANEU, ADIFF #### [address] [address] Hematocrit (Bld) [Volume fraction] 36.4 % Low 40.0-52.0 AO Workflow SS Comment on above: Performed By: #### F ERR, CBC, FE, ANEU, ADIFF #### [place] [address] MCH (RBC) [Entitic mass] 32.3 pg Normal 27.0-33.0 AO Workflow SS Comment on above: Performed By: #### F ERR, CBC, FE, ANEU, ADIFF #### [place] [address] MCHC 34.8 G/dL Normal 32.0-36.0 AO Workflow SS Comment on above: Performed By: #### F ERR, CBC, FE, ANEU, ADIFF #### [place] [address] MCV (RBC) [Entitic vol] 92.8 fL Normal 81.0-100.0 A O Workflow SS Comment on above: Performed By: #### F ERR, CBC, FE, ANEU, ADIFF #### [place] [address] Platelet mean volume (Bld) [Entitic vol] 7.3 fL Normal 6.4-10.5 AO Workflow SS Comment on above: Performed By: #### F ERR, CBC, FE, ANEU, ADIFF #### [place] [address] CMPon 10-20-2024 Albumin Level 4.0 G/dL Normal 3.4-4.8 [facility] Comment on above: Performed By: #### F ERR, CBC, FE, ANEU, ADIFF #### [place] [address] ALT [Catalytic activity/Vol] 20 U/L Normal 16-63 [facility] Comment on above: Performed By: #### F ERR, CBC, FE, ANEU, ADIFF #### [place] [address] AST [Catalytic activity/Vol] 25 U/L Normal 10-40 [facility] Comment on above: Performed By: #### F ERR, CBC, FE, ANEU, ADIFF #### [place] [phone] Bili Total 0.6 mg/dL Normal 0.2-1.0 [facility] Comment on above: Result Comment: Use of this assay is not recommended for patients undergoing treatment with eltrombopag due to the potential for falsely elevated results. Performed By: #### F ERR, CBC, FE, ANEU, ADIFF #### [address] [address] BUN/Creatinine Ratio 19 ratio Normal 7-27 [facility] Comment on above: Performed By: #### F ERR, CBC, FE, ANEU, ADIFF #### [address] [address] Total Protein 7.1 G/dL Normal 6.4-8.2 [facility] Comment on above: Performed By: #### F ERR, CBC, FE, ANEU, ADIFF #### [address] [address] Urea nitrogen [Mass/Vol] 11 mg/dL Normal 7-18 [facility] Comment on above: Performed By: #### F ERR, CBC, FE, ANEU, ADIFF #### [address] [address] CMPOrdered By: SYSTEM SYSTEM on 10-20-2024 Albumin/Globulin [Mass ratio] 1.3 {ratio} Normal 1.1-2.5 AO ADM SS Comment on above: Performed By: #### F ERR, CBC, FE, ANEU, ADIFF #### [address] [address] ALP [Catalytic activity/Vol] 68 U/L Normal 40-135 AO ADM SS Comment on above: Performed By: #### F ERR, CBC, FE, ANEU, ADIFF #### [address] [address] Calcium [Mass/Vol] 9.2 mg/dL Normal 8.4-10.2 AO ADM SS Comment on above: Performed By: #### F ERR, CBC, FE, ANEU, ADIFF #### [address] [address] Chloride [Moles/Vol] 88 mmol/L Low 98-107 AO A DM SS Comment on above: Performed By: #### F ERR, CBC, FE, ANEU, ADIFF #### [place] [phone] CO2 [Moles/Vol] 30 mmol/L Normal 23-31 AO ADM SS Comment on above: Performed By: #### F ERR, CBC, FE, ANEU, ADIFF #### [place] [address] Creatinine [Mass/Vol] 0.57 mg/dL Low 0.67-1.17 AO ADM SS Comment on above: Performed By: #### F ERR, CBC, FE, ANEU, ADIFF #### [place] [address] Electrolyte Balance 4.0 mEq/L Normal 4.0-15.0 AO AD M SS Comment on above: Performed By: #### F ERR, CBC, FE, ANEU, ADIFF #### [place] [phone] Globulin 3.1 G/dL Normal 2.7-4.4 AO ADM SS Comment on above: Performed By: #### F ERR, CBC, FE, ANEU, ADIFF #### [place] [address] Glucose [Mass/Vol] 166 mg/dL High 83-110 AO ADM SS Comment on above: Performed By: #### F ERR, CBC, FE, ANEU, ADIFF #### [place] [address] Potassium [Moles/Vol] 4.0 mmol/L Normal 3.5-5.1 AO ADM SS Comment on above: Performed By: #### F ERR, CBC, FE, ANEU, ADIFF #### [place] [phone] Sodium [Moles/Vol] 122 mmol/L Low 136-145 AO ADM SS Comment on above: Performed By: #### F ERR, CBC, FE, ANEU, ADIFF #### [place] [phone] CT HEAD OR BRAIN W/O CONTRAS Ton [...] 10/20/2024 11:52:19 AM Ordering Provider: JAMIE Spangler [facility] LABORATORYOrdered By: SYSTEM SYSTEM on 10-20-2024 [...] ng/L Male: 0-76 ng/L Testing performed on [employer] using a homogeneous sandwich chemiluminescent immunoassay based on [employer] technology. Urea nitrogen/Creatinine [Mass ratio] 19 ratio [...] Lactic Acid Lvl 0.8 mmol/L Normal 0.5-2.2 [facility] Comment on above: Performed By: #### A DIFF, CBC, BMP, ANEU, MG, GFR #### [address] [address] Laboratory - Chemistry and C hemistry - challengeOrdered By: SYSTEM SYSTEM on 10-20-2024 Urea nitrogen [Mass/Vol] 11 mg/dL Normal 7 - 18 mg/dL AO ADM SS MGon 10-20-2024 Magnesium [Mass/Vol] 2.2 mg/dL Normal 1.6-2.4 [facility] MAIN Comment on above: Performed By: #### A DIFF, CBC, BMP, ANEU, MG, GFR #### [address] [address] MGOrdered By: SYSTEM SYSTEM on 10-20-2024 Magnesium [Mass/Vol] 1.6 mg/dL Low 1.8-2.4 AO A DM SS Comment on above: Performed By: #### F ERR, CBC, FE, ANEU, ADIFF #### [address] [address] NAURon 10-20-2024 Sodium [Moles/Vol] 59 mmol/L Normal [facility] Comment on above: Performed By: #### F ERR, CBC, FE, ANEU, ADIFF #### [address] [address] No Panel Informationon 10-20 Culture Urine 10,000 - 50,000 cfu/ml Mixed growth consistent with normal urogenital dorinda. [facility] TROPHSon 10-20-2024 High Sensitivity Troponin I 20 ng/L Normal 0-76 [facility] Comment on above: Result Comment: High Sensitive Troponin I Reference Ranges: Female: 0-51 ng/L Male: 0-76 ng/L Testing performed on [employer] using a homogeneous sandwich chemiluminescent immunoassay based on [employer] technology. Performed By: #### F ERR, CBC, FE, ANEU, ADIFF #### [place] [phone] TSHon 10-20-2024 TSH 2.130 mIU/mL Normal 0.550-4.780 [facility] Comment on above: Performed By: #### A DIFF, CBC, BMP, ANEU, MG, GFR #### [place] [address] TSHROrdered By: SYSTEM SYSTE M on 10-20-2024 TSH Qn 2.53 m[IU]/L Normal 0.36-3.74 AO ADM SS Comment on above: Performed By: #### F ERR, CBC, FE, ANEU, ADIFF #### [address] [address] UDRUGon 10-20-2024 Amphetamine (u) Negative Normal Negative [facility] Comment on above: Performed By: #### F ERR, CBC, FE, ANEU, ADIFF #### [place] [phone] Barbiturate (u) Negative Normal Negative [facility] Comment on above: Performed By: #### F ERR, CBC, FE, ANEU, ADIFF #### [address] [address] Benzodiazepine (u) Negative Normal Negative [facility] Comment on above: Performed By: #### F ERR, CBC, FE, ANEU, ADIFF #### [address] [address] Cannabinoid (u) Negative Normal Negative [facility] Comment on above: Performed By: #### F ERR, CBC, FE, ANEU, ADIFF #### [address] [address] Cocaine Ql (U) Negative Normal Negative [facility] Comment on above: Performed By: #### F ERR, CBC, FE, ANEU, ADIFF #### [address] [address] Methadone Ql (U) Negative Normal Negative [facility] Comment on above: Performed By: #### F ERR, CBC, FE, ANEU, ADIFF #### [place] [address] Opiate (u) Positive Abnormal Negative [facility] Comment on above: Performed By: #### F ERR, CBC, FE, ANEU, ADIFF #### [address] [address] PCP (u) Negative Normal Negative [facility] Comment on above: Performed By: #### F ERR, CBC, FE, ANEU, ADIFF #### [address] [address] Urine Drugs screened: See Below Normal [facility] Comment on above: Result Comment: This drug [...] F ERR, CBC, FE, ANEU, ADIFF #### [address] [address] XR CHEST 2 VIEWSon XR CHEST 2 [...] 10/20/2024 12:10:04 PM Ordering Provider: JAMIE TAYLOR [facility] LABORATORYOrdered By: Abigail Graham on 10-08-2024 Albumin DL <= 20 mg/L (U) [Mass/Vol] 8.1 mg/L Invalid Interpretation Code AO ADM SS Albumin/Creatinine DL <= 20 mg/L (U) [Mass ratio] 17 mg/G Normal 0 - 30 mg/G AO Chemistry S Creatinine (U) [Mass/Vol] 47.6 mg/dL Normal 40.0 - 278.0 mg/dL AO ADM SS MALBRon 10-08-2024 U Creatinine 47.6 mg/dL Normal 40.0-278.0 [facility] Comment on above: Performed By: #### F ERR, CBC, FE, ANEU, ADIFF #### [address] [address] U Microalb 8.1 mg/L Normal [facility] Comment on above: Performed By: #### F ERR, CBC, FE, ANEU, ADIFF #### [address] [address] U Ratio Alb/Cre 17 mg/G Normal 0-30 [facility] Comment on above: Performed By: #### F ERR, CBC, FE, ANEU, ADIFF #### [address] [address] .Auto Diffon 10-05-2024 Basophil, Absolute 0.0 10 3/mcL Normal 0.0-0.3 [facility] Comment on above: Performed By: #### F ERR, CBC, FE, ANEU, ADIFF #### [address] [address] Basophils/100 WBC (Bld) 0.9 % Normal 0.0-2.5 [facility] Comment on above: Performed By: #### F ERR, CBC, FE, ANEU, ADIFF #### [address] [address] Eosinophil, Absolute 0.2 10 3/mcL Normal 0.0-0.7 [facility] Comment on above: Performed By: #### F ERR, CBC, FE, ANEU, ADIFF #### [address] [address] Eosinophils/100 WBC (Bld) 4.9 % Normal 0.0-6.0 [facility] Comment on above: Performed By: #### F ERR, CBC, FE, ANEU, ADIFF #### [address] [address] Lymphocyte, Absolute 1.4 10 3/mcL Normal 0.9-4.3 [facility] Comment on above: Performed By: #### F ERR, CBC, FE, ANEU, ADIFF #### [address] [address] Lymphocytes/100 WBC (Bld) 33.5 % Normal 20.0-40.0 [facility] Comment on above: Performed By: #### F ERR, CBC, FE, ANEU, ADIFF #### [address] [address] Monocyte, Absolute 0.4 10 3/mcL Normal 0.1-1.4 [facility] Comment on above: Performed By: #### F ERR, CBC, FE, ANEU, ADIFF #### [address] [address] Monocytes/100 WBC (Bld) 9.8 % Normal 2.0-13.0 [facility] Comment on above: Performed By: #### F ERR, CBC, FE, ANEU, ADIFF #### [address] [address] Neutrophils/100 WBC (Bld) 50.9 % Normal 50.0-75.0 [facility] Comment on above: Performed By: #### F ERR, CBC, FE, ANEU, ADIFF #### [address] [address] .NEUABSon 10-05-2024 Neutrophil, Absolute 2.1 10 3/mcL Low 2.3-8.1 [facility] Comment on above: Performed By: #### F ERR, CBC, FE, ANEU, ADIFF #### [address] [address] CBCon 10-05-2024 Erythrocyte distribution width (RBC) [Ratio] 14.2 % Normal 11.5-15.5 [facility] Comment on above: Performed By: #### F ERR, CBC, FE, ANEU, ADIFF #### [place] [address] Hematocrit (Bld) [Volume fraction] 36.4 % Low 40.0-52.0 [facility] Comment on above: Performed By: #### F ERR, CBC, FE, ANEU, ADIFF #### [place] [address] Hgb 12.5 G/dL Low 13.0-17.5 [facility] Comment on above: Performed By: #### F ERR, CBC, FE, ANEU, ADIFF #### [place] [address] MCH (RBC) [Entitic mass] 32.0 pg Normal 27.0-33.0 [facility] Comment on above: Performed By: #### F ERR, CBC, FE, ANEU, ADIFF #### [place] [address] MCHC 34.3 G/dL Normal 32.0-36.0 [facility] Comment on above: Performed By: #### F ERR, CBC, FE, ANEU, ADIFF #### [address] [address] MCV (RBC) [Entitic vol] 93.3 fL Normal 81.0-100.0 [facility] Comment on above: Performed By: #### F ERR, CBC, FE, ANEU, ADIFF #### [place] [address] Platelet 203 10 3/mcL Normal 150-450 [facility] Comment on above: Performed By: #### F ERR, CBC, FE, ANEU, ADIFF #### [place] [address] Platelet mean volume (Bld) [Entitic vol] 8.2 fL Normal 6.4-10.5 [facility] Comment on above: Performed By: #### F ERR, CBC, FE, ANEU, ADIFF #### [place] [address] RBC 3.90 10 6/mcL Low 4.50-6.00 [facility] Comment on above: Performed By: #### F ERR, CBC, FE, ANEU, ADIFF #### [place] [id number] WBC 4.2 10 3/mcL Low 4.5-10.8 [facility] Comment on above: Performed By: #### F ERR, CBC, FE, ANEU, ADIFF #### [address] [address] FEon 10-05-2024 Iron [Mass/Vol] 84 ug/dL Normal 65-175 [facility] Comment on above: Performed By: #### F ERR, CBC, FE, ANEU, ADIFF #### [address] [address] Tres 10-05-2024 Ferritin [Mass/Vol] 55.0 ng/mL Normal 26.0-388.0 [facility] Comment on above: Performed By: #### F ERR, CBC, FE, ANEU, ADIFF #### [place] [id number] [place] [id number] LABORATORYOrdered By: SYSTEM SYSTEM on 10-05-2024 Basophils [...] Basophil, Absolute 0.0 10 3/mcL Normal 0.0-0.2 [facility] Comment on above: Performed By: #### F ERR, CBC, FE, ANEU, ADIFF #### [address] [address] Basophils/100 WBC (Bld) 0.9 % Normal 0.0-2.5 [facility] Comment on above: Performed By: #### F ERR, CBC, FE, ANEU, ADIFF #### [address] [address] Eosinophil, Absolute 0.2 10 3/mcL Normal 0.0-0.7 [facility] Comment on above: Performed By: #### F ERR, CBC, FE, ANEU, ADIFF #### [address] [address] Eosinophils/100 WBC (Bld) 4.4 % Normal 0.0-7.0 [facility] Comment on above: Performed By: #### F ERR, CBC, FE, ANEU, ADIFF #### [address] [address] Lymphocyte, Absolute 1.4 10 3/mcL Normal 0.9-4.3 [facility] Comment on above: Performed By: #### F ERR, CBC, FE, ANEU, ADIFF #### [address] [address] Lymphocytes/100 WBC (Bld) 28.4 % Normal 20.0-40.0 [facility] Comment on above: Performed By: #### F ERR, CBC, FE, ANEU, ADIFF #### [address] [address] Monocyte, Absolute 0.5 10 3/mcL Normal 0.1-1.4 [facility] Comment on above: Performed By: #### F ERR, CBC, FE, ANEU, ADIFF #### [address] [address] Monocytes/100 WBC (Bld) 9.1 % Normal 2.0-13.0 [facility] Comment on above: Performed By: #### F ERR, CBC, FE, ANEU, ADIFF #### [address] [address] Neutrophils/100 WBC (Bld) 57.2 % Normal 50.0-75.0 [facility] Comment on above: Performed By: #### F ERR, CBC, FE, ANEU, ADIFF #### [address] [address] .NEUABSon 07-06-2024 Neutrophil, Absolute 2.9 10 3/mcL Normal 2.3-8.1 [facility] Comment on above: Performed By: #### F ERR, CBC, FE, ANEU, ADIFF #### [address] [address] CBCon 07-06-2024 Erythrocyte distribution width (RBC) [Ratio] 15.5 % Normal 11.5-15.5 [facility] Comment on above: Performed By: #### F ERR, CBC, FE, ANEU, ADIFF #### [address] [address] Hematocrit (Bld) [Volume fraction] 37.0 % Low 40.0-52.0 [facility] Comment on above: Performed By: #### F ERR, CBC, FE, ANEU, ADIFF #### [place] [address] Hgb 12.7 G/dL Low 13.0-17.5 [facility] Comment on above: Performed By: #### F ERR, CBC, FE, ANEU, ADIFF #### [address] [address] MCH (RBC) [Entitic mass] 32.3 pg Normal 27.0-33.0 [facility] Comment on above: Performed By: #### F ERR, CBC, FE, ANEU, ADIFF #### [place] [address] MCHC 34.4 G/dL Normal 32.0-36.0 [facility] Comment on above: Performed By: #### F ERR, CBC, FE, ANEU, ADIFF #### [place] [id number] MCV (RBC) [Entitic vol] 93.9 fL Normal 81.0-100.0 [facility] Comment on above: Performed By: #### F ERR, CBC, FE, ANEU, ADIFF #### [place] [id number] Platelet 192 10 3/mcL Normal 150-450 [facility] Comment on above: Performed By: #### F ERR, CBC, FE, ANEU, ADIFF #### [place] [id number] Platelet mean volume (Bld) [Entitic vol] 8.0 fL Normal 6.4-10.5 [facility] Comment on above: Performed By: #### F ERR, CBC, FE, ANEU, ADIFF #### [place] [address] RBC 3.94 10 6/mcL Low 4.50-6.00 [facility] Comment on above: Performed By: #### F ERR, CBC, FE, ANEU, ADIFF #### [address] [address] WBC 5.1 10 3/mcL Normal 4.5-10.8 [facility] Comment on above: Performed By: #### F ERR, CBC, FE, ANEU, ADIFF #### [place] [phone] [place], [place] [address] FEon 07-06-2024 Iron [Mass/Vol] 77 ug/dL Normal 65-175 [facility] Comment on above: Performed By: #### F ERR, CBC, FE, ANEU, ADIFF #### [address] [address] Tres 07-06-2024 Ferritin [Mass/Vol] 74.0 ng/mL Normal 26.0-388.0 [facility] Comment on above: Performed By: #### F ERR, CBC, FE, ANEU, ADIFF #### [address] [address] LABORATORYOrdered By: SYSTEM SYSTEM on 07-06-2024 Basophils [...] MALBRon 04-27-2024 U Creatinine 144.6 mg/dL Normal [facility] Comment on above: Performed By: #### F ERR, CBC, FE, ANEU, ADIFF #### [address] [address] U Microalb 5011 mcg/dL Normal [facility] Comment on above: Performed By: #### F ERR, CBC, FE, ANEU, ADIFF #### [address] [address] U Ratio Alb/Cre 35 mcg/mg High 0-30 [facility] Comment on above: Performed By: #### F ERR, CBC, FE, ANEU, ADIFF #### [address] [address] LABORATORYOrdered By: Vaughn Schneider on 04-09-2024 Albumin DL <= 20 mg/L (U) [Mass/Vol] 3705 mcg/dL Invalid Interpretation Code AO ADM SS Albumin/Creatinine DL <= 20 mg/L (U) [Mass ratio] 47 mcg/mg High 0 - 30 mcg/mg AO ADM SS Creatinine (U) [Mass/Vol] 78.8 mg/dL Normal 39.0 - 259.0 mg/dL AO ADM SS MALBRon 04-09-2024 U Creatinine 78.8 mg/dL Normal 39.0-259.0 [facility] Comment on above: Performed By: #### F ERR, CBC, FE, ANEU, ADIFF #### [address] [address] U Microalb 3705 mcg/dL Normal [facility] Comment on above: Performed By: #### F ERR, CBC, FE, ANEU, ADIFF #### [place] [address] U Ratio Alb/Cre 47 mcg/mg High 0-30 [facility] Comment on above: Performed By: #### F ERR, CBC, FE, ANEU, ADIFF #### [address] [address] .Auto Diffon 04-03-2024 Basophil, Absolute 0.0 10 3/mcL Normal 0.0-0.2 [facility] Comment on above: Performed By: #### F ERR, CBC, FE, ANEU, ADIFF #### [address] [address] Basophils/100 WBC (Bld) 0.2 % Normal 0.0-2.5 [facility] Comment on above: Performed By: #### F ERR, CBC, FE, ANEU, ADIFF #### [address] [address] Eosinophil, Absolute 0.2 10 3/mcL Normal 0.0-0.7 [facility] Comment on above: Performed By: #### F ERR, CBC, FE, ANEU, ADIFF #### [address] [address] Eosinophils/100 WBC (Bld) 1.9 % Normal 0.0-7.0 [facility] Comment on above: Performed By: #### F ERR, CBC, FE, ANEU, ADIFF #### [address] [address] Lymphocyte, Absolute 1.1 10 3/mcL Normal 0.9-4.3 [facility] Comment on above: Performed By: #### F ERR, CBC, FE, ANEU, ADIFF #### [address] [address] Lymphocytes/100 WBC (Bld) 11.9 % Low 20.0-40.0 [facility] Comment on above: Performed By: #### F ERR, CBC, FE, ANEU, ADIFF #### [address] [address] Monocyte, Absolute 0.7 10 3/mcL Normal 0.1-1.4 [facility] Comment on above: Performed By: #### F ERR, CBC, FE, ANEU, ADIFF #### [address] [address] Monocytes/100 WBC (Bld) 7.4 % Normal 2.0-13.0 [facility] Comment on above: Performed By: #### F ERR, CBC, FE, ANEU, ADIFF #### [address] [address] Neutrophils/100 WBC (Bld) 78.6 % High 50.0-75.0 [facility] Comment on above: Performed By: #### F ERR, CBC, FE, ANEU, ADIFF #### [address] [address] .NEUABSon 04-03-2024 Neutrophil, Absolute 7.3 10 3/mcL Normal 2.3-8.1 [facility] Comment on above: Performed By: #### F ERR, CBC, FE, ANEU, ADIFF #### [address] [address] CBCon 04-03-2024 Erythrocyte distribution width (RBC) [Ratio] 14.2 % Normal 11.5-15.5 [facility] Comment on above: Performed By: #### F ERR, CBC, FE, ANEU, ADIFF #### [address] [address] Hematocrit (Bld) [Volume fraction] 36.1 % Low 40.0-52.0 [facility] Comment on above: Performed By: #### F ERR, CBC, FE, ANEU, ADIFF #### [address] [address] Hgb 12.4 G/dL Low 13.0-17.5 [facility] Comment on above: Performed By: #### F ERR, CBC, FE, ANEU, ADIFF #### [address] [address] MCH (RBC) [Entitic mass] 32.8 pg Normal 27.0-33.0 [facility] Comment on above: Performed By: #### F ERR, CBC, FE, ANEU, ADIFF #### [address] [address] MCHC 34.2 G/dL Normal 32.0-36.0 [facility] Comment on above: Performed By: #### F ERR, CBC, FE, ANEU, ADIFF #### [address] [address] MCV (RBC) [Entitic vol] 95.8 fL Normal 81.0-100.0 [facility] Comment on above: Performed By: #### F ERR, CBC, FE, ANEU, ADIFF #### [address] [address] Platelet 150 10 3/mcL Normal 150-450 [facility] Comment on above: Performed By: #### F ERR, CBC, FE, ANEU, ADIFF #### [place] [address] Platelet mean volume (Bld) [Entitic vol] 8.4 fL Normal 6.4-10.5 [facility] Comment on above: Performed By: #### F ERR, CBC, FE, ANEU, ADIFF #### [place] [address] RBC 3.77 10 6/mcL Low 4.50-6.00 [facility] Comment on above: Performed By: #### F ERR, CBC, FE, ANEU, ADIFF #### [place] [address] WBC 9.3 10 3/mcL Normal 4.5-10.8 [facility] Comment on above: Performed By: #### F ERR, CBC, FE, ANEU, ADIFF #### [place] [address] FEon 04-03-2024 Iron [Mass/Vol] 26 ug/dL Low 65-175 [facility] Comment on above: Performed By: #### F ERR, CBC, FE, ANEU, ADIFF #### [place] [address] Tres 04-03-2024 Ferritin [Mass/Vol] 76.0 ng/mL Normal 26.0-388.0 [facility] Comment on above: Performed By: #### F ERR, CBC, FE, ANEU, ADIFF #### [place] [address] LABORATORYOrdered By: SYSTEM SYSTEM on 04-03-2024 Basophils [...] CT HEAD OR BRAIN W/O CONTRAS Ton 10-17-2024 CT HEAD OR BRAIN W/O CONTRAST ORIGINAL [...] Sign Date: 02/20/2024 3:29:22 PM Ordering Provider: [facility] CT MAXILLOFACIAL W/O CONTRAS Ton 02-20-2024 CT [...] Sign Date: 02/20/2024 3:38:46 PM Ordering Provider: [facility] CT SPINE CERVICAL W/O CONTRA STon 02-20-2024 [...] 02/20/2024 3:59:40 PM Ordering Provider: NELIDA Spangler [facility] .Auto Diffon 01-21-2024 Basophil, Absolute 0.1 10 3/mcL Normal 0.0-0.2 [facility] Comment on above: Performed By: #### F ERR, LIPID, PSA, FE, CMP, GFR, ADIFF, CBC, ANEU #### [place] [address] #### FOL, B12 #### [address] [address] Basophils/100 WBC (Bld) 1.0 % Normal 0.0-2.5 [facility] Comment on above: Performed By: #### F ERR, LIPID, PSA, FE, CMP, GFR, ADIFF, CBC, ANEU #### [address] [address] #### FOL, B12 #### [address] [address] Eosinophil, Absolute 0.3 10 3/mcL Normal 0.0-0.4 [facility] Comment on above: Performed By: #### F ERR, LIPID, PSA, FE, CMP, GFR, ADIFF, CBC, ANEU #### [place] [address] #### FOL, B12 #### [address] [address] Eosinophils/100 WBC (Bld) 5.4 % Normal 0.0-7.0 [facility] Comment on above: Performed By: #### F ERR, LIPID, PSA, FE, CMP, GFR, ADIFF, CBC, ANEU #### [place] [address] #### FOL, B12 #### [address] [address] Lymphocyte, Absolute 1.6 10 3/mcL Normal 0.8-3.9 [facility] Comment on above: Performed By: #### F ERR, LIPID, PSA, FE, CMP, GFR, ADIFF, CBC, ANEU #### [place] [address] #### FOL, B12 #### [address] [address] Lymphocytes/100 WBC (Bld) 28.6 % Normal 10.0-50.0 [facility] Comment on above: Performed By: #### F ERR, LIPID, PSA, FE, CMP, GFR, ADIFF, CBC, ANEU #### [place] [address] #### FOL, B12 #### [address] [address] Monocyte, Absolute 0.4 10 3/mcL Normal 0.2-1.0 [facility] Comment on above: Performed By: #### F ERR, LIPID, PSA, FE, CMP, GFR, ADIFF, CBC, ANEU #### [place] [address] #### FOL, B12 #### [address] [address] Monocytes/100 WBC (Bld) 7.5 % Normal 1.7-13.0 [facility] Comment on above: Performed By: #### F ERR, LIPID, PSA, FE, CMP, GFR, ADIFF, CBC, ANEU #### [place] [address] [place], [place] [address] #### FOL, B12 #### [address] [address] Neutrophils/100 WBC (Bld) 57.5 % Normal 37.0-80.0 [facility] Comment on above: Performed By: #### F ERR, LIPID, PSA, FE, CMP, GFR, ADIFF, CBC, ANEU #### [place] [id number] [place], [place] [address] #### FOL, B12 #### [address] [address] .GFRon 01-21-2024 GFR 110 ml/min/1.73sqm Normal [facility] Comment on above: Result Comment: GFR [...] F ERR, CBC, FE, ANEU, ADIFF #### [address] [address] GFR Non- 91 ml/min/1.73sqm Normal [facility] Comment on above: Result Comment: GFR [...] F ERR, CBC, FE, ANEU, ADIFF #### [address] [address] .NEUABSon 01-21-2024 Neutrophil, Absolute 3.2 10 3/mcL Normal 2.9-6.2 [facility] Comment on above: Performed By: #### F ERR, LIPID, PSA, FE, CMP, GFR, ADIFF, CBC, ANEU #### [place] [address] #### FOL, B12 #### [address] [address] B12on 01-21-2024 Cobalamin (Vitamin B12) [Mass/Vol] 275 pg/mL Normal 211-911 [facility] Comment on above: Performed By: #### F ERR, CBC, FE, ANEU, ADIFF #### [address] [address] CBCon 01-21-2024 Erythrocyte distribution width (RBC) [Ratio] 14.7 % High 11.5-14.5 [facility] Comment on above: Performed By: #### F ERR, LIPID, PSA, FE, CMP, GFR, ADIFF, CBC, ANEU #### [place] [address] #### FOL, B12 #### [address] [address] Hematocrit (Bld) [Volume fraction] 36.6 % Low 42.0-52.0 [facility] Comment on above: Performed By: #### F ERR, LIPID, PSA, FE, CMP, GFR, ADIFF, CBC, ANEU #### [place] [address] #### FOL, B12 #### [address] [address] Hgb 12.4 G/dL Low 14.0-18.0 [facility] Comment on above: Performed By: #### F ERR, LIPID, PSA, FE, CMP, GFR, ADIFF, CBC, ANEU #### [place] [address] #### FOL, B12 #### [address] [address] MCH (RBC) [Entitic mass] 32.5 pg High 27.0-31.2 [facility] Comment on above: Performed By: #### F ERR, LIPID, PSA, FE, CMP, GFR, ADIFF, CBC, ANEU #### [place] [address] #### FOL, B12 #### [place] [address] MCHC 33.8 G/dL Normal 31.8-35.4 [facility] Comment on above: Performed By: #### F ERR, LIPID, PSA, FE, CMP, GFR, ADIFF, CBC, ANEU #### [place] [address] #### FOL, B12 #### [place] [address] MCV (RBC) [Entitic vol] 96.3 fL High 80.0-94.0 [facility] Comment on above: Performed By: #### F ERR, LIPID, PSA, FE, CMP, GFR, ADIFF, CBC, ANEU #### [place] [address] #### FOL, B12 #### [place] [address] Platelet 186 10 3/mcL Normal 130-400 [facility] Comment on above: Performed By: #### F ERR, LIPID, PSA, FE, CMP, GFR, ADIFF, CBC, ANEU #### [place] [address] #### FOL, B12 #### [place] [address] Platelet mean volume (Bld) [Entitic vol] 7.9 fL Normal 7.4-10.4 [facility] Comment on above: Performed By: #### F ERR, LIPID, PSA, FE, CMP, GFR, ADIFF, CBC, ANEU #### [address] [address] #### FOL, B12 #### [place] [address] RBC 3.81 10 6/mcL Low 4.04-6.13 [facility] Comment on above: Performed By: #### F ERR, LIPID, PSA, FE, CMP, GFR, ADIFF, CBC, ANEU #### [place] [address] #### FOL, B12 #### [place] [address] WBC 5.6 10 3/mcL Normal 4.6-10.8 [facility] Comment on above: Performed By: #### F ERR, LIPID, PSA, FE, CMP, GFR, ADIFF, CBC, ANEU #### [place] [address] #### FOL, B12 #### [place] [address] CMPon 01-21-2024 Albumin Level 3.9 G/dL Normal 3.4-4.8 [facility] Comment on above: Performed By: #### F ERR, CBC, FE, ANEU, ADIFF #### [place] [address] Albumin/Globulin [Mass ratio] 1.6 {ratio} Normal 1.1-2.5 [facility] Comment on above: Performed By: #### F ERR, CBC, FE, ANEU, ADIFF #### [place] [address] ALP [Catalytic activity/Vol] 66 U/L Normal 40-135 [facility] Comment on above: Performed By: #### F ERR, CBC, FE, ANEU, ADIFF #### [place] [address] ALT [Catalytic activity/Vol] 16 U/L Normal 16-63 [facility] Comment on above: Performed By: #### F ERR, CBC, FE, ANEU, ADIFF #### [address] [address] AST [Catalytic activity/Vol] 10 U/L Normal 10-40 [facility] Comment on above: Performed By: #### F ERR, CBC, FE, ANEU, ADIFF #### [address] [address] Bili Total 0.7 mg/dL Normal 0.2-1.0 [facility] Comment on above: Result Comment: Use of this assay is not recommended for patients undergoing treatment with eltrombopag due to the potential for falsely elevated results. Performed By: #### F ERR, CBC, FE, ANEU, ADIFF #### [address] [address] BUN/Creatinine Ratio 15 ratio Normal 7-27 [facility] Comment on above: Performed By: #### F ERR, CBC, FE, ANEU, ADIFF #### [address] [address] Calcium [Mass/Vol] 9.1 mg/dL Normal 8.4-10.2 [facility] Comment on above: Performed By: #### F ERR, CBC, FE, ANEU, ADIFF #### [address] [address] Chloride [Moles/Vol] 96 mmol/L Low 98-107 [facility] Comment on above: Performed By: #### F ERR, CBC, FE, ANEU, ADIFF #### [address] [address] CO2 [Moles/Vol] 30 mmol/L Normal 23-31 [facility] Comment on above: Performed By: #### F ERR, CBC, FE, ANEU, ADIFF #### [address] [address] Creatinine [Mass/Vol] 0.81 mg/dL Normal 0.70-1.30 [facility] Comment on above: Result Comment: Test ing performed on Siemens Dimension EXL analyzer using a modified kinetic Claudine technique. Performed By: #### F ERR, CBC, FE, ANEU, ADIFF #### [address] [address] Electrolyte Balance 5.0 mEq/L Normal 4.0-15.0 [facility] Comment on above: Performed By: #### F ERR, CBC, FE, ANEU, ADIFF #### [address] [address] Globulin 2.4 G/dL Normal [facility] Comment on above: Performed By: #### F ERR, CBC, FE, ANEU, ADIFF #### [address] [address] Glucose [Mass/Vol] 119 mg/dL High 83-110 [facility] Comment on above: Performed By: #### F ERR, CBC, FE, ANEU, ADIFF #### [address] [address] Potassium [Moles/Vol] 4.3 mmol/L Normal 3.5-5.1 [facility] Comment on above: Performed By: #### F ERR, CBC, FE, ANEU, ADIFF #### [address] [address] Sodium [Moles/Vol] 131 mmol/L Low 136-145 [facility] Comment on above: Performed By: #### F ERR, CBC, FE, ANEU, ADIFF #### [address] [address] Total Protein 6.3 G/dL Low 6.4-8.2 [facility] Comment on above: Performed By: #### F ERR, CBC, FE, ANEU, ADIFF #### [address] [address] Urea nitrogen [Mass/Vol] 12 mg/dL Normal 7-18 [facility] Comment on above: Performed By: #### F ERR, CBC, FE, ANEU, ADIFF #### [address] [address] FEon 01-21-2024 Iron [Mass/Vol] 55 ug/dL Low 65-175 [facility] Comment on above: Performed By: #### F ERR, CBC, FE, ANEU, ADIFF #### [address] [address] Tres 01-21-2024 Ferritin [Mass/Vol] 49.0 ng/mL Normal 26.0-388.0 [facility] Comment on above: Performed By: #### F ERR, LIPID, PSA, FE, CMP, GFR, ADIFF, CBC, ANEU #### [address] [address] #### FOL, B12 #### [facility] [address] [place] [address] FOLon 01-21-2024 Folate 21.89 ng/mL Normal 5.38-24.00 [facility] Comment on above: Performed By: #### F ERR, CBC, FE, ANEU, ADIFF #### [address] [address] LABORATORYOrdered By: SYSTEM SYSTEM on 01-21-2024 Albumin [...] ng/mL Normal 5.38 - 24. 00 ng/mL ADM SS GFR/1.73 sq M.predicted among blacks [...] 01-21-2024 Cholesterol [Mass/Vol] 124 mg/dL Normal 0-200 [facility] Comment on above: Result Comment: Chol esterol Reference Interval: Less than 200 Desirable 200-239 Borderline high risk 240 and above High risk Performed By: #### F ERR, CBC, FE, ANEU, ADIFF #### [address] [address] Cholesterol in HDL [Mass/Vol] 68 mg/dL High 40-60 [facility] Comment on above: Performed By: #### F ERR, CBC, FE, ANEU, ADIFF #### [address] [address] Cholesterol in LDL [Mass/Vol] 44 mg/dL Normal 0-130 [facility] Comment on above: Performed By: #### F ERR, CBC, FE, ANEU, ADIFF #### [address] [address] Triglyceride [Mass/Vol] 60 mg/dL Normal 0-150 [facility] Comment on above: Result Comment: Trig lyceride Reference Interval: Less than 150 Normal 150-199 Borderline high risk 200-499 High risk 500 or higher Very high risk Performed By: #### F ERR, CBC, FE, ANEU, ADIFF #### [address] [address] PSAon 01-21-2024 Prostate Specific Antigen 0.44 ng/mL Normal 0.00-4.00 [facility] Comment on above: Performed By: #### F ERR, CBC, FE, ANEU, ADIFF #### [address] [address] .Auto Diffon 01-10-2024 Basophil, Absolute 0.0 10 3/mcL Normal 0.0-0.2 [facility] Comment on above: Performed By: #### F ERR, CBC, FE, ANEU, ADIFF #### [address] [address] Basophils/100 WBC (Bld) 0.7 % Normal 0.0-2.5 [facility] Comment on above: Performed By: #### F ERR, CBC, FE, ANEU, ADIFF #### [address] [address] Eosinophil, Absolute 0.3 10 3/mcL Normal 0.0-0.4 [facility] Comment on above: Performed By: #### F ERR, CBC, FE, ANEU, ADIFF #### [address] [address] Eosinophils/100 WBC (Bld) 4.6 % Normal 0.0-7.0 [facility] Comment on above: Performed By: #### F ERR, CBC, FE, ANEU, ADIFF #### [address] [address] Lymphocyte, Absolute 1.0 10 3/mcL Normal 0.8-3.9 [facility] Comment on above: Performed By: #### F ERR, CBC, FE, ANEU, ADIFF #### [address] [address] Lymphocytes/100 WBC (Bld) 17.4 % Normal 10.0-50.0 [facility] Comment on above: Performed By: #### F ERR, CBC, FE, ANEU, ADIFF #### [address] [address] Monocyte, Absolute 0.4 10 3/mcL Normal 0.2-1.0 [facility] Comment on above: Performed By: #### F ERR, CBC, FE, ANEU, ADIFF #### [address] [address] Monocytes/100 WBC (Bld) 8.0 % Normal 1.7-13.0 [facility] Comment on above: Performed By: #### F ERR, CBC, FE, ANEU, ADIFF #### [address] [address] Neutrophils/100 WBC (Bld) 69.3 % Normal 37.0-80.0 [facility] Comment on above: Performed By: #### F ERR, CBC, FE, ANEU, ADIFF #### [address] [address] .GFRon 01-10-2024 GFR 107 ml/min/1.73sqm Normal [facility] Comment on above: Result Comment: GFR [...] F ERR, CBC, FE, ANEU, ADIFF #### [address] [address] GFR Non- 88 ml/min/1.73sqm Normal [facility] Comment on above: Result Comment: GFR [...] F ERR, CBC, FE, ANEU, ADIFF #### [address] [address] .NEUABSon 01-10-2024 Neutrophil, Absolute 3.9 10 3/mcL Normal 2.9-6.2 [facility] Comment on above: Performed By: #### F ERR, CBC, FE, ANEU, ADIFF #### [address] [address] CBCon 01-10-2024 Erythrocyte distribution width (RBC) [Ratio] 15.1 % High 11.5-14.5 [facility] Comment on above: Performed By: #### F ERR, CBC, FE, ANEU, ADIFF #### [place] [address] Hematocrit (Bld) [Volume fraction] 35.7 % Low 42.0-52.0 [facility] Comment on above: Performed By: #### F ERR, CBC, FE, ANEU, ADIFF #### [place] [address] Hgb 12.3 G/dL Low 14.0-18.0 [facility] Comment on above: Performed By: #### F ERR, CBC, FE, ANEU, ADIFF #### [place] [address] MCH (RBC) [Entitic mass] 33.1 pg High 27.0-31.2 [facility] Comment on above: Performed By: #### F ERR, CBC, FE, ANEU, ADIFF #### [place] [address] MCHC 34.4 G/dL Normal 31.8-35.4 [facility] Comment on above: Performed By: #### F ERR, CBC, FE, ANEU, ADIFF #### [place] [address] MCV (RBC) [Entitic vol] 96.1 fL High 80.0-94.0 [facility] Comment on above: Performed By: #### F ERR, CBC, FE, ANEU, ADIFF #### [place] [id number] Platelet 168 10 3/mcL Normal 130-400 [facility] Comment on above: Performed By: #### F ERR, CBC, FE, ANEU, ADIFF #### [address] [address] Platelet mean volume (Bld) [Entitic vol] 8.4 fL Normal 7.4-10.4 [facility] Comment on above: Performed By: #### F ERR, CBC, FE, ANEU, ADIFF #### [address] [address] RBC 3.71 10 6/mcL Low 4.04-6.13 [facility] Comment on above: Performed By: #### F ERR, CBC, FE, ANEU, ADIFF #### [address] [address] WBC 5.6 10 3/mcL Normal 4.6-10.8 [facility] Comment on above: Performed By: #### F ERR, CBC, FE, ANEU, ADIFF #### [address] [address] CMPon 01-10-2024 Albumin Level 3.7 G/dL Normal 3.4-4.8 [facility] Comment on above: Performed By: #### F ERR, CBC, FE, ANEU, ADIFF #### [place] [id number] Albumin/Globulin [Mass ratio] 1.8 {ratio} Normal 1.1-2.5 [facility] Comment on above: Performed By: #### F ERR, CBC, FE, ANEU, ADIFF #### [address] [address] ALP [Catalytic activity/Vol] 57 U/L Normal 40-135 [facility] Comment on above: Performed By: #### F ERR, CBC, FE, ANEU, ADIFF #### [address] [address] ALT [Catalytic activity/Vol] 14 U/L Low 16-63 [facility] Comment on above: Performed By: #### F ERR, CBC, FE, ANEU, ADIFF #### [address] [address] AST [Catalytic activity/Vol] 14 U/L Normal 10-40 [facility] Comment on above: Performed By: #### F ERR, CBC, FE, ANEU, ADIFF #### [address] [address] Bili Total 0.7 mg/dL Normal 0.2-1.0 [facility] Comment on above: Result Comment: Use of this assay is not recommended for patients undergoing treatment with eltrombopag due to the potential for falsely elevated results. Performed By: #### F ERR, CBC, FE, ANEU, ADIFF #### [address] [address] BUN/Creatinine Ratio 17 ratio Normal 7-27 [facility] Comment on above: Performed By: #### F ERR, CBC, FE, ANEU, ADIFF #### [address] [address] Calcium [Mass/Vol] 9.2 mg/dL Normal 8.4-10.2 [facility] Comment on above: Performed By: #### F ERR, CBC, FE, ANEU, ADIFF #### [address] [address] Chloride [Moles/Vol] 95 mmol/L Low 98-107 [facility] Comment on above: Performed By: #### F ERR, CBC, FE, ANEU, ADIFF #### [address] [address] CO2 [Moles/Vol] 31 mmol/L Normal 23-31 [facility] Comment on above: Performed By: #### F ERR, CBC, FE, ANEU, ADIFF #### [address] [address] Creatinine [Mass/Vol] 0.83 mg/dL Normal 0.70-1.30 [facility] Comment on above: Result Comment: Test ing performed on Siemens Dimension EXL analyzer using a modified kinetic Claudine technique. Performed By: #### F ERR, CBC, FE, ANEU, ADIFF #### [place] [id number] Electrolyte Balance 6.0 mEq/L Normal 4.0-15.0 [facility] Comment on above: Performed By: #### F ERR, CBC, FE, ANEU, ADIFF #### [address] [address] Globulin 2.0 G/dL Normal [facility] Comment on above: Performed By: #### F ERR, CBC, FE, ANEU, ADIFF #### [address] [address] Glucose [Mass/Vol] 120 mg/dL High 83-110 [facility] Comment on above: Performed By: #### F ERR, CBC, FE, ANEU, ADIFF #### [place] [id number] Potassium [Moles/Vol] 4.6 mmol/L Normal 3.5-5.1 [facility] Comment on above: Performed By: #### F ERR, CBC, FE, ANEU, ADIFF #### [address] [address] Sodium [Moles/Vol] 132 mmol/L Low 136-145 [facility] Comment on above: Performed By: #### F ERR, CBC, FE, ANEU, ADIFF #### [address] [address] Total Protein 5.7 G/dL Low 6.4-8.2 [facility] Comment on above: Performed By: #### F ERR, CBC, FE, ANEU, ADIFF #### [address] [address] Urea nitrogen [Mass/Vol] 14 mg/dL Normal 7-18 [facility] Comment on above: Performed By: #### F ERR, CBC, FE, ANEU, ADIFF #### [address] [address] LABORATORYOrdered By: SYSTEM SYSTEM on 01-10-2024 Albumin [...] 01-10-2024 Cholesterol [Mass/Vol] 127 mg/dL Normal 0-200 [facility] Comment on above: Result Comment: Chol esterol Reference Interval: Less than 200 Desirable 200-239 Borderline high risk 240 and above High risk Performed By: #### F ERR, CBC, FE, ANEU, ADIFF #### [address] [address] Cholesterol in HDL [Mass/Vol] 69 mg/dL High 40-60 [facility] Comment on above: Performed By: #### F ERR, CBC, FE, ANEU, ADIFF #### [address] [address] Cholesterol in LDL [Mass/Vol] 46 mg/dL Normal 0-130 [facility] Comment on above: Performed By: #### F ERR, CBC, FE, ANEU, ADIFF #### [address] [address] Triglyceride [Mass/Vol] 61 mg/dL Normal 0-150 [facility] Comment on above: Result Comment: Trig lyceride Reference Interval: Less than 150 Normal 150-199 Borderline high risk 200-499 High risk 500 or higher Very high risk Performed By: #### F ERR, CBC, FE, ANEU, ADIFF #### [address] [address] LABORATORYOrdered By: Dolores Bal on 10-09-2023 Albumin DL <= 20 mg/L (U) [Mass/Vol] 3296 mcg/dL Invalid Interpretation Code AO ADM SS Albumin/Creatinine DL <= 20 mg/L (U) [Mass ratio] 43 mcg/mg High 0 - 30 mcg/mg AO ADM SS Creatinine (U) [Mass/Vol] 76.6 mg/dL Normal 39.0 - 259.0 mg/dL AO ADM SS MALBRon 10-09-2023 U Creatinine 76.6 mg/dL Normal 39.0-259.0 [facility] ([place] Comment on above: Performed By: #### M ALBR ####[address] [place], [place] [address] U Microalb 3296 mcg/dL Normal [facility] ([place] Comment on above: Performed By: #### M ALBR ####[address] [place], [place] [address] U Ratio Alb/Cre 43 mcg/mg High 0-30 [facility] ([place]) Comment on above: Performed By: #### M ALBR ####[address] [place], [place] [address] XR WRIST MINIMUM 3 VIEWS LEF Ton [...] Date: 09/02/2023 3:21:09 PM Ordering Provider: YASMANI COULTER Normal [facility] ([place]) .Auto Diffon 08-30-2023 Basophil, Absolute 0.0 10 3/mcL Normal 0.0-0.2 [facility] ([place]) Comment on above: Performed By: #### A 1C, TSH, CBC, CMP, PSA, GFR, ADIFF, VIDH, ANEU #### [address] [place], [place] [address] Basophils/100 WBC (Bld) 0.6 % Normal 0.0-2.5 [facility] ([place]) Comment on above: Performed By: #### A 1C, TSH, CBC, CMP, PSA, GFR, ADIFF, VIDH, ANEU #### [address] [address] Eosinophil, Absolute 0.3 10 3/mcL Normal 0.0-0.4 [facility] ([place] Comment on above: Performed By: #### A 1C, TSH, CBC, CMP, PSA, GFR, ADIFF, VIDH, ANEU #### [address] [address] Eosinophils/100 WBC (Bld) 4.3 % Normal 0.0-7.0 [facility] ([place] Comment on above: Performed By: #### A 1C, TSH, CBC, CMP, PSA, GFR, ADIFF, VIDH, ANEU #### [address] [address] Lymphocyte, Absolute 1.7 10 3/mcL Normal 0.8-3.9 [facility] ([place]) Comment on above: Performed By: #### A 1C, TSH, CBC, CMP, PSA, GFR, ADIFF, VIDH, ANEU #### [address] [address] Lymphocytes/100 WBC (Bld) 27.3 % Normal 10.0-50.0 [facility] ([place] Comment on above: Performed By: #### A 1C, TSH, CBC, CMP, PSA, GFR, ADIFF, VIDH, ANEU #### [address] [address] Monocyte, Absolute 0.5 10 3/mcL Normal 0.2-1.0 [facility] ([place]) Comment on above: Performed By: #### A 1C, TSH, CBC, CMP, PSA, GFR, ADIFF, VIDH, ANEU #### [address] [address] Monocytes/100 WBC (Bld) 8.2 % Normal 1.7-13.0 [facility] ([place]) Comment on above: Performed By: #### A 1C, TSH, CBC, CMP, PSA, GFR, ADIFF, VIDH, ANEU #### [address] [address] Neutrophils/100 WBC (Bld) 59.6 % Normal 37.0-80.0 [facility] ([place]) Comment on above: Performed By: #### A 1C, TSH, CBC, CMP, PSA, GFR, ADIFF, VIDH, ANEU #### [place] [id number] [place], [place] [address] .GFRon 08-30-2023 GFR 99 ml/min/1.73sqm Normal [facility] ([place]) Comment on above: Result Comment: GFR Population [...] CBC, CMP, PSA, GFR, ADIFF, VIDH, ANEU ####[address] [address] GFR Non- 81 ml/min/1.73sqm Normal [facility] ([place]) Comment on above: Result Comment: GFR Population [...] CBC, CMP, PSA, GFR, ADIFF, VIDH, ANEU ####[address] [address] .NEUABSon 08-30-2023 Neutrophil, Absolute 3.7 10 3/mcL Normal 2.9-6.2 [facility] ([place]) Comment on above: Performed By: #### A 1C, TSH, CBC, CMP, PSA, GFR, ADIFF, VIDH, ANEU #### [place] [address] A1Con 08-30-2023 HbA1c (Bld) [Mass fraction] 6.9 % High 4.3-6.4 [facility] ([place]) Comment on above: Performed By: #### A 1C, TSH, CBC, CMP, PSA, GFR, ADIFF, VIDH, ANEU #### [place] [address] CBCon 08-30-2023 Erythrocyte distribution width (RBC) [Ratio] 15.3 % High 11.5-14.5 [facility] ([place]) Comment on above: Performed By: #### A 1C, TSH, CBC, CMP, PSA, GFR, ADIFF, VIDH, ANEU #### [place] [address] Hematocrit (Bld) [Volume fraction] 39.1 % Low 42.0-52.0 [facility] ([place] Comment on above: Performed By: #### A 1C, TSH, CBC, CMP, PSA, GFR, ADIFF, VIDH, ANEU #### [place] [address] Hgb 13.5 G/dL Low 14.0-18.0 [facility] ([place]) Comment on above: Performed By: #### A 1C, TSH, CBC, CMP, PSA, GFR, ADIFF, VIDH, ANEU #### [address] [address] MCH (RBC) [Entitic mass] 32.3 pg High 27.0-31.2 [facility] ([place] Comment on above: Performed By: #### A 1C, TSH, CBC, CMP, PSA, GFR, ADIFF, VIDH, ANEU #### [address] [address] MCHC 34.6 G/dL Normal 31.8-35.4 [facility] ([place] Comment on above: Performed By: #### A 1C, TSH, CBC, CMP, PSA, GFR, ADIFF, VIDH, ANEU #### [address] [address] MCV (RBC) [Entitic vol] 93.2 fL Normal 80.0-94.0 [facility] ([place]) Comment on above: Performed By: #### A 1C, TSH, CBC, CMP, PSA, GFR, ADIFF, VIDH, ANEU #### [address] [address] Platelet 191 10 3/mcL Normal 130-400 [facility] ([place]) Comment on above: Performed By: #### A 1C, TSH, CBC, CMP, PSA, GFR, ADIFF, VIDH, ANEU #### [address] [address] Platelet mean volume (Bld) [Entitic vol] 8.7 fL Normal 7.4-10.4 [facility] ([place]) Comment on above: Performed By: #### A 1C, TSH, CBC, CMP, PSA, GFR, ADIFF, VIDH, ANEU #### [address] [address] RBC 4.19 10 6/mcL Normal 4.04-6.13 [facility] ([place]) Comment on above: Performed By: #### A 1C, TSH, CBC, CMP, PSA, GFR, ADIFF, VIDH, ANEU #### [address] [address] WBC 6.3 10 3/mcL Normal 4.6-10.8 [facility] ([place]) Comment on above: Performed By: #### A 1C, TSH, CBC, CMP, PSA, GFR, ADIFF, VIDH, ANEU #### [address] [address] CMPon 08-30-2023 Albumin Level 4.3 G/dL Normal 3.4-4.8 [facility] ([place]) Comment on above: Performed By: #### A 1C, TSH, CBC, CMP, PSA, GFR, ADIFF, VIDH, ANEU #### [address] [address] Albumin/Globulin [Mass ratio] 1.8 {ratio} Normal 1.1-2.5 [facility] ([place]) Comment on above: Performed By: #### A 1C, TSH, CBC, CMP, PSA, GFR, ADIFF, VIDH, ANEU #### [address] [address] ALP [Catalytic activity/Vol] 49 U/L Normal 40-135 [facility] ([place]) Comment on above: Performed By: #### A 1C, TSH, CBC, CMP, PSA, GFR, ADIFF, VIDH, ANEU #### [address] [address] ALT [Catalytic activity/Vol] 23 U/L Normal 16-63 [facility] ([place]) Comment on above: Performed By: #### A 1C, TSH, CBC, CMP, PSA, GFR, ADIFF, VIDH, ANEU #### [address] [address] AST [Catalytic activity/Vol] 15 U/L Normal 10-40 [facility] ([place]) Comment on above: Performed By: #### A 1C, TSH, CBC, CMP, PSA, GFR, ADIFF, VIDH, ANEU #### [address] [address] Bili Total 0.7 mg/dL Normal 0.2-1.0 [facility] ([place]) Comment on above: Result Comment: Use of this assay is not recommended for patients undergoing treatment with eltrombopag due to the potential for falsely elevated results. Performed By: #### A 1C, TSH, CBC, CMP, PSA, GFR, ADIFF, VIDH, ANEU #### [address] [address] BUN/Creatinine Ratio 21 ratio Normal 7-27 [facility] ([place]) Comment on above: Performed By: #### A 1C, TSH, CBC, CMP, PSA, GFR, ADIFF, VIDH, ANEU #### [address] [address] Calcium [Mass/Vol] 9.6 mg/dL Normal 8.4-10.2 [facility] ([place]) Comment on above: Performed By: #### A 1C, TSH, CBC, CMP, PSA, GFR, ADIFF, VIDH, ANEU #### [address] [address] Chloride [Moles/Vol] 96 mmol/L Low 98-107 [facility] ([place]) Comment on above: Performed By: #### A 1C, TSH, CBC, CMP, PSA, GFR, ADIFF, VIDH, ANEU #### [address] [address] CO2 [Moles/Vol] 30 mmol/L Normal 23-31 [facility] ([place]) Comment on above: Performed By: #### A 1C, TSH, CBC, CMP, PSA, GFR, ADIFF, VIDH, ANEU #### [address] [address] Creatinine [Mass/Vol] 0.89 mg/dL Normal 0.70-1.30 [facility] ([place]) Comment on above: Performed By: #### A 1C, TSH, CBC, CMP, PSA, GFR, ADIFF, VIDH, ANEU #### [address] [address] Electrolyte Balance 8.0 mEq/L Normal 4.0-15.0 [facility] ([place]) Comment on above: Performed By: #### A 1C, TSH, CBC, CMP, PSA, GFR, ADIFF, VIDH, ANEU #### [address] [address] Globulin 2.4 G/dL Normal [facility] ([place]) Comment on above: Performed By: #### A 1C, TSH, CBC, CMP, PSA, GFR, ADIFF, VIDH, ANEU #### [address] [address] Glucose [Mass/Vol] 113 mg/dL High 83-110 [facility] ([place]) Comment on above: Performed By: #### A 1C, TSH, CBC, CMP, PSA, GFR, ADIFF, VIDH, ANEU #### [address] [address] Potassium [Moles/Vol] 4.8 mmol/L Normal 3.5-5.1 [facility] ([place]) Comment on above: Performed By: #### A 1C, TSH, CBC, CMP, PSA, GFR, ADIFF, VIDH, ANEU #### [address] [address] Sodium [Moles/Vol] 134 mmol/L Low 136-145 [facility] ([place]) Comment on above: Performed By: #### A 1C, TSH, CBC, CMP, PSA, GFR, ADIFF, VIDH, ANEU #### [address] [address] Total Protein 6.7 G/dL Normal 6.4-8.2 [facility] ([place]) Comment on above: Performed By: #### A 1C, TSH, CBC, CMP, PSA, GFR, ADIFF, VIDH, ANEU #### [address] [address] Urea nitrogen [Mass/Vol] 19 mg/dL High 7-18 [facility] ([place]) Comment on above: Performed By: #### A 1C, TSH, CBC, CMP, PSA, GFR, ADIFF, VIDH, ANEU #### [address] [address] LABORATORYOrdered By: SYSTEM SYSTEM on 08-30-2023 25-hydroxyvitamin [...] Prostate Specific Antigen 0.49 ng/mL Normal 0.00-4.00 [facility] ([place]) Comment on above: Performed By: #### A 1C, TSH, CBC, CMP, PSA, GFR, ADIFF, VIDH, ANEU #### [address] [address] TSHon 08-30-2023 TSH Qn 2.68 m[IU]/L Normal 0.36-3.74 [facility] ([place]) Comment on above: Order Comment: REFLE X FREE T4 IF ABNORMAL! (TSH < 0.36, or TSH > 3.64) Performed By: #### A 1C, TSH, CBC, CMP, PSA, GFR, ADIFF, VIDH, ANEU #### [place] [address] VIDHon 08-30-2023 Vit. D 25-Hydroxy 57.4 ng/mL Normal [facility] ([place]) Comment on above: Result Comment: Inte rpretive Values Based on Total 25(OH) Vitamin D: Deficient <20 ng/mL Insufficient 20 - <30 ng/mL Sufficient 30-100 ng/mL Performed By: #### A 1C, TSH, CBC, CMP, PSA, GFR, ADIFF, VIDH, ANEU #### [address] [address] MALBRon 04-19-2023 U Creatinine 240.2 mg/dL Normal 39.0-259.0 [facility] ([place]) Comment on above: Performed By: #### M ALBR #### [address] [address] U Microalb 8893 mcg/dL Normal [facility] ([place]) Comment on above: Performed By: #### M ALBR #### [address] [address] U Ratio Alb/Cre 37 mcg/mg High 0-30 [facility] ([place]) Comment on above: Performed By: #### M ALBR #### [address] [address] LABORATORYOrdered By: SYSTEM SYSTEM on 09-04-2022 Albumin [...] ratio AO ADM SS LABORATORYOrdered By: Rhea John on 09-04-2022 Basophil, Absolute 0.0 103/mcL Invalid [...] Date Time Vital Sign Value Performing Clinician Faci lity 11-13-2024 10:05-0400 Body temperature 97.5 [degF] Rashmi Baltes MEDICAL STENOGRAPHER-C Work Phone: [facility] 11-13-2024 10:05-0400 Diastolic blood pressure 80 mm[Hg] Rashmi Baltes MEDICAL STENOGRAPHER-C Work Phone: [facility] 11-13-2024 10:05-0400 Heart rate 91 /min Rashmi Baltes MEDICAL STENOGRAPHER-C Work Phone: [facility] 11-13-2024 10:05-0400 Respiratory rate 18 /min Rashmi Baltes MEDICAL STENOGRAPHER-C Work Phone: [facility] 11-13-2024 10:05-0400 SaO2% (BldA) [Mass fraction] 97 % Rashmi Baltes MEDICAL STENOGRAPHER-C Work Phone: [facility] 11-13-2024 10:05-0400 Systolic blood pressure 144 mm[Hg] Rashmi Baltes MEDICAL STENOGRAPHER-C Work Phone: [facility] 11-10-2024 14:52-0400 Body mass index (BMI) [Ratio] 23.5 kg/m2 Rashmi Baltes MEDICAL STENOGRAPHER-C Work Phone: [facility] 11-10-2024 14:52-0400 Body weight 67.99 kg Rashmi Price MEDICAL STENOGRAPHER-C Work Phone: [facility] 11-09-2024 13:19-0400 Body height 170.18 cm Rashmi Price MEDICAL STENOGRAPHER-C Work Phone: [facility] 10-31-2024 08:11-0400 Inhaled oxygen flow rate 4 L/min Rashmi Price MEDICAL STENOGRAPHER-C Work Phone: [facility] 10-25-2024 02:52-0400 SaO2% (BldA) [Mass fraction] 98.4 % JUDIT HAHN MD [facility] 10-25-2024 01:07-0400 SaO2% (BldA) [Mass fraction] 74.9 % JUDIT HAHN MD [facility] 10-21-2024 14:28-0400 SaO2% (BldA) [Mass fraction] 99.1 % JUDIT HAHN MD [facility] 02-20-2024 14:47-0400 Body temperature 98.6 [degF] NELIDA GROVE DO [facility] 02-20-2024 14:47-0400 Body weight 72.7 kg NELIDA GROVE DO [facility] 02-20-2024 14:47-0400 Diastolic Blood Pressure Non-Invasive 96 mm[Hg] NELIDA GROVE DO [facility] 02-20-2024 14:47-0400 Heart rate 71 /min NELIDA GROVE DO [facility] 02-20-2024 14:47-0400 Respiratory rate 16 /min NELIDA GROVE DO [facility] 02-20-2024 14:47-0400 Systolic Blood Pressure Non-Invasive 165 mm[Hg] NELIDA GROVE DO [facility] Encounters Encounter Date Encounter Type Care Provider Facility Start: 12-10-2024 End: 12-10-2024 ambulatory Rashmi Price MEDICAL STENOGRAPHER-C Work Phone: -[facility] Start: 12-10-2024 End: 12-10-[address] Yasmani Coulter MD -[facility] Work Phone: Start: 12-10-2024 End: 12-10-2024 ambulatory Yasmani BRO Facility:[facility] Start: 11-23-2024 ambulatory Yasmani BRO Facil ity:[facility] Start: 11-23-[address] Yasmani patrick MD -[facility] [place] Work Phone: Start: 10-29-2024 End: 11-13-2024 Evaluation and management of inpatient Dr. Juan Reed MD -[facility] Start: 10-20-2024 End: 10-29-2024 Evaluation and management of inpatient JUDIT HAHN MD [facility] Start: 10-20-2024 End: 10-24-2024 ambulatory RASHMI PRICE RADIO TIME SALESPERSON-[employer]ER Facility:[facility] Start: 10-20-2024 End: 10-24-2024 Outreach Lab KATI MALDONADO RADIO TIME SALESPERSON-[employer]LE FIBER WASHER [facility] Start: 10-20-2024 End: 10-20-2024 Emergency department patient visit JAMIE TAYLOR MD [facility] Start: 10-08-2024 End: 10-12-2024 ambulatory RASHMI PRICE RADIO TIME SALESPERSON-[employer] W[employer]ER Facility:[facility] Start: 10-08-2024 End: 10-12-2024 Outreach Lab RASHMI PRICE RADIO TIME SALESPERSON-[employer] W[employer]ER [facility] Start: 10-05-2024 End: 10-05-2024 ambulatory RASHMI BALTES RADIO TIME SALESPERSON-[employer]AP[employer] W[employer]ER Facility:[facility] Start: 10-05-2024 End: 10-05-2024 Patient encounter procedure RASHMI BALTES RADIO TIME SALESPERSON-[employer] W[employer]ER [facility] Start: 07-06-2024 End: 07-06-2024 ambulatory RASHMI BALTES RADIO TIME SALESPERSON-[employer]AP[employer] W[employer]ER Facility:[facility] Start: 07-06-2024 End: 07-06-2024 Patient encounter procedure RASHMI BALKATIA RADIO TIME SALESPERSON-[employer] W[employer] [facility] Start: 05-18-2024 End: 05-18-2024 ambulatory RASHMI BALTES RADIO TIME SALESPERSON-[employer] W[employer]ER Facility:[facility] Start: 05-18-2024 End: 05-18-2024 Patient encounter procedure RASHMI BALTES RADIO TIME SALESPERSON-[employer] W[employer] [facility] Start: 04-27-2024 End: 04-27-2024 ambulatory RASHMI ALBERT RADIO TIME SALESPERSON-[employer] W[employer]ER Facility:[facility] Start: 04-27-2024 End: 04-27-2024 Patient encounter procedure RASHMI BALTES RADIO TIME SALESPERSON-[employer] [facility] Start: 04-09-2024 End: 04-13-2024 ambulatory RASHMI BALKATIA RADIO TIME SALESPERSON-[employer] W[employer]ER Facility:[facility] Start: 04-09-2024 End: 04-13-2024 Outreach Lab RASHMI BALKATIA RADIO TIME SALESPERSON-[employer] W[employer]ER [facility] Start: 04-03-2024 End: 04-03-2024 ambulatory RASHMI BALTES RADIO TIME SALESPERSON-[employer] W[employer]ER Facility:[facility] Start: 04-03-2024 End: 04-03-2024 Patient encounter procedure RASHMI BALTES RADIO TIME SALESPERSON-[employer] [facility] Start: 02-20-2024 End: 02-20-2024 Emergency department patient visit NELIDA GROVE DO [facility] Start: 01-21-2024 End: 01-21-2024 ambulatory RASHMI BALKATIA RADIO TIME SALESPERSON-[employer] W[employer]ER Facility:[facility] Start: 01-21-2024 End: 01-21-2024 Patient encounter procedure RASHMI BALKATIA RADIO TIME SALESPERSON-[employer] W[employer] [facility] Start: 01-10-2024 End: 01-10-2024 ambulatory RASHMI BALTES RADIO TIME [employer]ERSON[employer] Facility:[facility] Start: 01-10-2024 End: 01-10-2024 Patient encounter procedure RASHMI BALKATIA RADIO TIME [employer]ERSON[employer] [facility] Start: 10-09-2023 End: 10-13-2023 ambulatory RASHMI CHAPMANKATIA RADIO TIME SAL[employer]ERSON[employer] Facility:[facility] Start: 10-09-2023 End: 10-13-2023 Outreach Lab RASHMI PRICE RADIO TIME SALESPERSON[employer] [facility] Start: 08-30-2023 End: 08-30-2023 ambulatory YASMANI COULTER DO Facility:[facility] Start: 08-30-2023 End: 08-30-2023 Patient encounter procedure YASMANI COULTER DO [facility] Start: 04-19-2023 End: 04-23-2023 ambulatory RASHMI ALBERT RADIO TIME [employer]ERSON[employer] Facility:[facility] Start: 09-04-2022 End: 09-04-2022 Patient encounter procedure RASHMI ALBERT RADIO TIME SALESPERSON-STAPLE FIBER WASHER [facility] Start: 07-17-2022 End: 07-21-2022 Outreach Lab RASHMI BALKATIA RADIO TIME SALESPERSON-STAPLE FIBER WASHER [facility] Start: 04-20-2022 End: 04-20-2022 Patient encounter procedure RASHMI ALBERT RADIO TIME SALESPERSON-STAPLE FIBER WASHER [facility] Start: 02-13-2022 End: 02-13-2022 Patient encounter procedure RASHMI PRICE RADIO TIME SALESPERSON-STAPLE FIBER WASHER [facility] Start: 04-12-2021 End: 04-12-2021 Patient encounter procedure RASHMI PRICE RADIO TIME SALESPERSON-STAPLE FIBER WASHER [facility] Start: 04-08-2021 End: 04-08-[address] KENNY DIETZ DO [facility] Procedures Date Procedure Procedure Detail Performing Clinician Start: 12-10-2024 Urine culture Rashmi Chapmant es MEDICAL STENOGRAPHER-C Work Phone: Start: 12-10-2024 Urnls dip stick/tabl et reagent auto microscopy Rashmi Baltes MEDICAL STENOGRAPHER-C Work Phone: Start: 11-13-2024 Osmolality measureme nt, serum Rashmi Balkatia MEDICAL STENOGRAPHER-C Work Phone: Start: 11-13-2024 Estimated creatinine clearance Rashmi Price MEDICAL STENOGRAPHER-C Work Phone: Start: 11-11-2024 Urnls dip stick/tabl et reagent auto microscopy Rashmi Balkatia MEDICAL STENOGRAPHER-C Work Phone: Start: 11-11-2024 Urine culture Rashmi Chapmant es MEDICAL STENOGRAPHER-C Work Phone: Start: 11-04-2024 X-ray of chest, PA a nd lateral views Rashmi Price MEDICAL STENOGRAPHER-C Work Phone: Start: 11-03-2024 Urine culture Rashmi Balt es MEDICAL STENOGRAPHER-C Work Phone: Start: 10-31-2024 Vitamin D, 25-hydrox y measurement Rashmi Balkatia MEDICAL STENOGRAPHER-C Work Phone: Comment on above: Vitamin D StatusDefi ciency: <20 ng/mL (50nmol/L)Insufficiency: 20-30 ng/mL (50-75 nmol/L)Sufficiency: 30-100 ng/mL (75-250 nmol/L)Toxicity: >100 ng/mL (>250 nmol/L) Start: 07-04-2020 No retinopathy of le ft eye due to diabetes mellitus DR KENNY DIETZ DO Comment on above: [facility] Start: 07-04-2020 No retinopathy of ri ght eye due to diabetes mellitus DR KENNY DIETZ DO Comment on above: [facility] Start: 03-07-2020 Ophthalmic examinati on and evaluation DR KENNY DIETZ DO Comment on above: shu mild, non prolif erative retinopathy; repeat [address] KENNY Doll DO Repair of musculoten dinous cuff of shoulder DR KENNY DIETZ DO Plan of Treatment Date Care Activity Detail Author Start: 11-15-2024 Development of care plan [facility] Start: 11-13-2024 Patient discharge [facility] Start: 11-11-2024 [facility] Start: 11-11-2024 Referral to service [facility] Start: 11-11-2024 Urine culture Urine Culture [facility] Start: 11-04-2024 Removal of urinary catheter [facility] Start: 10-30-2024 Speech therapy management [facility] Start: 10-30-2024 Development of care plan [facility] Start: 10-30-2024 Speech therapy assessment [facility] Start: 10-30-2024 Developing a treatment plan [facility] Start: 10-29-2024 Contact precautions [facility] Start: 10-29-2024 Admission procedure [facility] Start: 10-29-2024 Introduction of urin skyler catheter [facility] Start: 10-29-2024 Measuring intake and output [facility] Start: 10-29-2024 End: 10-30-2024 Patient referral to dietitian [facility] Start: 10-29-2024 Referral for physica l therapy [facility] Start: 10-29-2024 Referral to occupati onal therapist [facility] Start: 10-29-2024 Referral to service [facility] Start: 10-29-2024 Vital signs measurements [facility] Start: 10-29-2024 End: 10-29-2024 [facility] Start: 10-29-2024 Contact precautions [facility] Start: 10-29-2024 Following clinical p athway protocol [facility] Osmolality of Urine [facility] Sodium [Moles/volume ] in Urine [facility] Immunizations Immunization Date Immunization Notes Care Provider Fa cility 10-06-2024 Covid (Spikevax) Rashmi Price MEDICAL STENOGRAPHER-C Work Phone: [facility] 10-06-2024 SARS-CoV-2 (COVID-19 ) [id number] RASHMI PRICE RADIO TIME SALESPERSON-STAPLE FIBER WASHER [facility] 10-06-2024 SARS-CoV-2 (COVID-19 ) [id number] RASHMI BALTES RADIO TIME SALESPERSON-STAPLE FIBER WASHER [facility] Comment on above: Result Comment: [facility] 01-09-2024 Covid (Spikevax) Rashmi Baltes MEDICAL STENOGRAPHER-C Work Phone: [facility] 01-09-2024 influenza virus vacc ine, unspecified formulation RASHMI PRICE RADIO TIME SALESPERSON-STAPLE FIBER WASHER [facility] 01-09-2024 influenza, high dose seasonal, preservative-free Rashmi Baltes MEDICAL STENOGRAPHER-C Work Phone: [facility] 01-09-2024 SARS-CoV-2 (COVID-19 ) [id number] RASHMI BALKATIA RADIO TIME SALESPERSON-STAPLE FIBER WASHER [facility] 01-31-2023 Covid (Spikevax) Rashmi Baltes MEDICAL STENOGRAPHER-C Work Phone: [facility] 01-31-2023 influenza virus vacc ine, unspecified formulation YASMANI COULTER DO [facility] 01-31-2023 SARS-CoV-2 (COVID-19 ) [id number] YASMANI COULTER DO [facility] 01-30-2023 RSV Adult BiValent (Abrysvo) Rashmi Price MEDICAL STENOGRAPHER-C Work Phone: [facility] 01-30-2023 RSV vaccine, preF A- preF B, recombinant YASMANI COULTER DO [facility] 01-18-2023 Pneumococcal conjuga te PCV20, polysaccharide [id number] conjugate, adjuvant, PF; Translations: [Prevnar 20] YASMANI COULTER DO [facility] 09-10-2022 Covid Pfizer Bivalen t Booster Rashmi Price MEDICAL STENOGRAPHER-C Work Phone: [facility] 01-15-2022 Covid Pfizer Bivalen t Booster Rahsmi Price MEDICAL STENOGRAPHER-C Work Phone: [facility] 01-03-2022 influenza virus vacc ine, unspecified formulation RASHMI PRICE RADIO TIME SALESPERSON-STAPLE FIBER WASHER [facility] 08-03-2021 SARS-CoV-2 (COVID-19 ) mRNA-1273 vaccine RASHMI PRICE RADIO TIME SALESPERSON-STAPLE FIBER WASHER [facility] 08-03-2021 tetanus toxoid, redu darline diphtheria toxoid, and acellular pertussis vaccine, adsorbed RASHMI PRICE RADIO TIME SALESPERSON-STAPLE FIBER WASHER [facility] 02-24-2021 SARS-CoV-2 (COVID-19 ) mRNA-1273 vaccine RASHMI PRICE RADIO TIME SALESPERSON-STAPLE FIBER WASHER [facility] 02-08-2021 influenza virus vacc ine, unspecified formulation RASHMI CHAPMANTES RADIO TIME SALESPERSON-STAPLE FIBER WASHER [facility] 06-22-2020 COVID-19, mRNA, LNP- S, PF, 100 mcg/ 0.5 mL dose; Translations: [Moderna COVID-19 Vaccine] DR KENNY DIETZ DO [facility] 05-25-2020 SARS-CoV-2 (COVID-19 ) mRNA-[address] KENNY DIETZ DO [facility] 01-06-2020 influenza, injectabl e, quadrivalent, preservative free; Translations: [Fluarix PF Quadrivalent ] DR KENNY DIETZ DO [facility] 05-16-[address] KENNY DIETZ DO [facility] 03-02-2019 influenza, injectabl e, quadrivalent, preservative free; Translations: [Fluarix PF Quadrivalent ] DR KENNY DIETZ DO [facility] 02-04-[address] KENNY DIETZ DO [facility] 01-28-2018 influenza virus vacc ine, unspecified formulation DR KENNY DIETZ DO [facility] 01-22-2017 influenza virus vacc ine, unspecified formulation DR KENNY DIETZ DO [facility] 01-12-2016 influenza virus vacc ine, unspecified formulation DR KENNY DIETZ DO [facility] 01-18-2015 influenza virus vacc ine, unspecified formulation DR KENNY DIETZ DO [facility] 09-16-2014 pneumococcal conjuga te vaccine, [address] KENNY DIETZ DO [facility] 01-04-2014 influenza virus vacc ine, unspecified formulation DR KENNY DIETZ DO [facility] 08-25-2012 tetanus toxoid, redu darline diphtheria toxoid, and acellular pertussis vaccine, adsorbed DR KENNY DIETZ DO [facility] 12-10-[address] KENNY DIETZ DO [facility] 02-13-2006 pneumococcal polysaccharide vaccine, [address] KENNY DIETZ DO [facility] Payers Date Payer Category Payer Self-pay 2024 Medicare [id number] 2024 Medicare [id number] 2023 Private Health Insurance [id number] 2018 Private Health Insurance [id number] 1940 Unknown [id number] 2.16.8 40.1.084248.3.579.2.627 1938 Unknown [id number] 2.16.8 40.1.154319.3.579.2.627 1938 Unknown [id number] 2.16.8 40.1.298183.3.579.2.627 1938 Unknown [id number] 2.16. 840.1.805559.3.579.2.627 1938 Unknown [id number] 2.16. 840.1.203490.3.579.2.62 1938 Unknown [id number] 2.16. 840.1.273315.3.579.2.62 1938 Unknown [id number] 2.16.8 40.1.204432.3.579.2.627 1938 Unknown [id number] 2.16.8 40.1.540625.3.579.2. 1938 Unknown [id number] 2.16.8 40.1.316429.3.579.2.62 1938 Unknown [id number] 2.16.8 40.1.941216.3.579.2.62 1938 Unknown [id number] 2.16.8 40.1.465631.3.579.2.627 1938 Unknown [id number] 2.16.8 40.1.268498.3.579.2.62 1938 Unknown [id number] 2.16.8 40.1.362756.3.579.2.627 1938 Unknown [id number] 2.16.8 40.1.847121.3.579.2.62 1938 Unknown [id number] 2.16.8 40.1.268999.3.579.2.627 1938 Unknown [id number] 2.16. 840.1.410306.3.579.2.627 Medicare [id number] Unknown [id number] Unknown [id number] 2.16.8 40.1.065910.3.579.2.462 Unknown [id number] 2.16.8 40.1.445094.3.579.2.462 Unknown [id number] 2.16.8 40.1.956420.3.579.2.462 Social History Date Type Detail Facility Start: 12-09-2018 End: 10-29-2024 Never smoked tobacco (finding) [facility] Comment on above: no smoke exposure Start: 1940 Sex Assigned At Male [facility] Sexual Orientation [facility] Start: 10-29-2018 Sex Male (finding) [facility] Start: 03-11-2019 Tobacco Use Tobacco Use [facility] Sex Male [facility] Medical Equipment Procedure Code Equipment Code Equipment Origin al Text Equipment Identifier Dates Blood Glucose Te st Strips Start: 05-17-2020 Lancets Start: 03-02-[address]ps Start: 05-17-2020 Lancets Start: 03-02-2019 See Instructions , EA=BOX of 100 DM E11.9 one touch ultra blue test strips - patient checks once a day, # 3 EA, 3 Refill(s), Pharmacy: [facility] Type 2 diabetes mellitus, [...] day, # 3 EA, 3 Refill(s), Pharmacy: [email or web address] Type 2 diabetes mellitus, [...] # 3 EA, 3 Refill(s), [facility]: [facility] [facility], Type 2 diabetes mellitus, 172.7, cm, 07/27/21 [...] day, # 1 EA, 3 Refill(s), Pharmacy: [facility] #[id number], Type 2 diabetes mellitus, 172.7, cm, 09/04/22 [...] day, # 1 EA, 3 Refill(s), Pharmacy: [facility] #[id number], Type 2 diabetes mellitus, 172.7, cm, 09/04/22 [...] day, # 1 EA, 3 Refill(s), Pharmacy: [facility]/pharmacy #4605, Type 2 diabetes mellitus, 171, cm, [...] day, # 1 EA, 3 Refill(s), Pharmacy: [facility]/pharmacy #4605, Type 2 diabetes mellitus, 171, cm, [...] day, # 1 EA, 3 Refill(s), Pharmacy: [facility]/pharmacy #4605, Type 2 diabetes mellitus, 171, cm, [...] day, # 1 EA, 3 Refill(s), Pharmacy: [facility]/pharmacy #4605, Type 2 diabetes mellitus, 171, cm, [...] day, # 1 EA, 3 Refill(s), Pharmacy: [facility]/pharmacy #4605, Type 2 diabetes mellitus, 171, cm, [...] day, # 1 EA, 3 Refill(s), [facility] Type 2 diabetes mellitus, 171, cm, [...] day, # 1 EA, 3 Refill(s), [facility], Type 2 diabetes mellitus, 171, cm, [...] day, # 1 EA, 3 Refill(s), [facility], Type 2 diabetes mellitus, 171, cm, [...] day, # 1 EA, 3 Refill(s), Pharmacy: [facility]/pharmacy #4605, Type 2 diabetes mellitus, 171, cm, [...] day, # 1 EA, 3 Refill(s), Pharmacy: [facility]/pharmacy #4605, Type 2 diabetes mellitus, 171, cm, [...] day, # 1 EA, 3 Refill(s), Pharmacy: [facility]/pharmacy #4605, Type 2 diabetes mellitus, 171, cm, 10/09/23 8:54:00 EDT, Height, 71.9, kg, 10/09/23 8:54:00 EDT, Dosing Weight Start: 10-09-2023 See Instructions , One touch delica lancets - patietn checks once a day, # 1 EA, 5 Refill(s), Type 2 diabetes mellitus Start: 03-02-2019 Goals Date Patient Goal Desired Activity /State Functional Status Date Assessment Result Facility 11-13-2024 Functional status Chair [facility] Work Phone: 11-12-2024 Functional status Standard Walker [facility] Work Phone: 02-20-2024 Functional Status Standard Safet y ID band on, Call device within reach, Bed in low position, Wheels locked, Upper/Half-Length side-rails up, Bedside Cart Locked, Safety level maintained [facility] Mental Status Date Assessment Result Facility 11-13-2024 Cognitive function Voice/Name [facility] Work Phone: 11-12-2024 Cognitive function Appropriate;Yadira acuna [facility] Work Phone: 02-20-2024 Mental Status Orientation Oriented x 4 [facility] Clinical Notes 02-20-2024 to 11-11-2024 Note Date & Type Note Facility 11-11-2024 Discharge summary Note Date/Time November 11, 2024 3:49p m [facility] Medical Records Department [address] [place] [address] Discharge Summary 11/11/24 1542 MR#: [id number] Acct: [id number] Name: TIM ADAMSON Rep #:[id number] : 1940 83 From: Juan Reed MD PCP: VALENTIN Marrufo Status:ADM IN Location: [facility] TC3-1 Providers Date of Admission: 10/29/24 Primary Care [...] __x__ GRD contraindicated. Reason contraindicated: stable chronic group home use. The following psychotropic medication was present [...] trials, follow up with Urology. Discharge to [facility] 11/13/2024, [facility] PT/OT/ST, FWW. FWW: Patient is unsafe [...] Discharge instructions: No Additional Instructions: Discharge to [facility] 11/13/2024, [facility] PT/OT/ST, FWW. FWW: Patient is unsafe [...] Reed Chi Primary Care Provider: Rashmi Price MEDICAL STENOGRAPHER Instructions Additional Instructions / Restrictions: Discharge to [facility] 11/13/2024, [facility] PT/OT/ST, FWW. FWW: Patient is unsafe [...] Referrals / Follow Up: Rashmi Price NP, EMILY-C [Primary Care Provider] - Disposition Disposition (needs filled in before D/C Order can be placed): Assisted Living 11/11/24 1549 <Electronically signed by Juan Reed MD> Cosigner Signature (if applicable): CC: VALENTIN Price; Dr. Juan Reed MD~ Signed [facility] Work Phone: 1(946) 465-128907-09-2025 Discharge summary [facility] Medical Records Department [address] [place] [address] Discharge Summary 11/11/24 1542 MR#: [id number] Acct: [id number] Name: TIM ADAMSON Rep #:[id number] : 1940 83 From: Juan Reed MD PCP: VALENTIN Marrufo Status:ADM IN Location: [place] [address] Providers Date of Admission: 10/29/24 Primary Care [...] __x__ GRD contraindicated. Reason contraindicated: stable chronic group home use. The following psychotropic medication was present [...] trials, follow up with Urology. Discharge to [facility] 11/13/2024, [facility] PT/OT/ST, FWW. FWW: Patient is unsafe [...] Discharge instructions: No Additional Instructions: Discharge to [facility] 11/13/2024, [facility] PT/OT/ST, FWW. FWW: Patient is unsafe [...] Reed Chi Primary Care Provider: Rashmi Price MEDICAL STENOGRAPHER Instructions Additional Instructions / Restrictions: Discharge to [facility] 11/13/2024, [facility] PT/OT/ST, FWW. FWW: Patient is unsafe [...] VALENTIN Price; Dr. Juan Reed MD~ Signed [facility]07-09-2025 [facility] Medical Records Department [address] [place] [address] Discharge Summary 11/11/24 154 MR#: [id number] Acct: [id number] Name: TIM ADAMSON Rep #: [id number] : 1940 83 From: Juan Reed MD PCP: VALENTIN Marrufo Status:ADM IN Location: [facility] TCU13-1 Providers Date of Admission: [...] __x__ GRD contraindicated. Reason contraindicated: stable chronic group home use. The following psychotropic medication was present [...] (eye) BID eye he (more content not included)...[facility]07-02-2025 Radiology Diagnostic study note [facility] Imaging Services [address] [place], [place] [address] Chest PA and Lateral MR#: [id number] Acct: [id number] Name: TIM ADAMSON Rep #: [id number] : 1940 M 83 From: Mateo Isaac MD PCP: VALENTIN Marrufo Status: ADM IN Study:Chest PA and Lateral Date of Exam: 11/04/24 Exam# [id number] Ordering Dr: Juan Reed MD PROCEDURE: CHEST PA AND LATERAL 11/04/2024 REASON FOR EXAM: COUGH. TECHNIQUE: CHEST PA AND LATERAL COMPARISON: None. FINDINGS: The heart is enlarged. Left basilar linear opacity favoring scar or atelectasis. Developing infiltrate is possible. Trace bilateral pleural effusions. No pneumothorax. RAD/Chest PA and Lateral IMPRESSION: As above. Reading Location: [id number] CC: MEDICAL STENOGRAPHER-C Rashmi Price; Dr. Juan Reed MD ~ Bookstore Clerk: Signed [facility]07-02-2025 History and physical note Author Juan Derek [facility] Note Date/Time November 04, 2024 7:31a m [facility] Medical Records Department [address] [place] [address] History & Physical Exam 10/29/24 190 MR#: [id number] Acct: [id number] Name: TIM ADAMSON Rep #:[id number] : 1940 83 From: Juan Reed MD PCP: VALENTIN Marrufo Status:ADM IN Location: [facility] TCU13-1 HPI - General General Date of Admission: 10/29/24 Date of Service: 10/29/24 Chief Complaint: Here for rehabilitation. HPI Narrative TIM ADAMSON, is a 83 Male who presents with followin10/20/2024 Admit to [facility]. Recent fall with rib fracture. Acute delirium [...] weeks bladder rest for urinary retention. 10/27/2024 CAFETERIA COUNTER ATTENDANT called for increasing oxygen requirement, Lasix 40mg [...] strengthening, prior to discharge home with . [facility] Medical History (Updated 10/29/24 @ 19:33 by [...] __x__ GRD contraindicated. Reason contraindicated: stable chronic group home use. The following psychotropic medication was present [...] 7 days, urine culturepending, stop Lovenox. 11/04/24 07<Electronically signed by Juan Reed MD> Cosigner Signature (if applicable): cc: VALENTIN Price; Dr. Juan Reed MD ~* Signed [facility] Work Phone: 1(323) 633-595407-02-2025 History and physical note [facility] Medical Records Department [address] [place] [address] History & Physical Exam 10/29/241908 MR#: [id number] Acct: [id number] Name: TIM ADAMSON Rep #:[id number] : 1940 83 From: Juan Reed MD PCP: VALENTIN Marrufo Status:ADM IN Location: [facility] TCU13-1 HPI - General General Date of Admission: 10/29/24 Date of Service: 10/29/24 Chief Complaint: Here for rehabilitation. HPI Narrative TIM ADAMSON, is a 83 Male who presents with followin10/20/2024 Admit to [facility]. Recent fall with rib fracture. Acute delirium [...] weeks bladder rest for urinary retention. 10/27/2024 CAFETERIA COUNTER ATTENDANT called for increasing oxygen requirement, Lasix 40mg [...] strengthening, prior to discharge home with . [facility] Medical History (Updated 10/29/24 @ 19:33 by [...] __x__ GRD contraindicated. Reason contraindicated: stable chronic group home use. The following psychotropic medication was present [...] Price; Dr. Juan Reed MD ~* Signed [facility]06-27-2025 Progress note Author Nimo Fernandez [facility] Note Date/Time October 30, 2024 4:05 pm [facility] Medical Records Department [address] [place] [address] Progress Note - Pharmacy 10/30/24 1533 MR#: [id number] Acct: [id number] Name: TIM ADAMSON Rep #:[id number] : 1940 83 From: Nimo Fernandez PCP: VALENTIN Marrufo Status:ADM IN Location: [facility] Documented by User: Nimo Fernandez 10/30/24 16:01 [...] 10/30/24 10:00 10/30/24 08:12 Fluticasone 0.05% 1 [place] Nasal.Sry NASAL 1 spray DAILY RAYNA Administration [...] by Juan Reed MD> CC: ~ Signed [facility] Work Phone: 1(327) 273-281506-27-2025 Progress note [facility] Medical Records Department [facility] [place] [address] Progress Note - Pharmacy 10/30/24 1533 MR#: [id number] Acct: [id number] Name: TIM ADAMSON Rep #:[id number] : 1940 83 From: Nimo Fernandez PCP: VALENTIN Marrufo Status:ADM IN Location: [place] [address] Documented by User: Nimo Fernandez 10/30/24 16:01 [...] 10/30/24 10:00 10/30/24 08:12 Fluticasone 0.05% 1 [place] Nasal.Sry NASAL 1 spray DAILY RAYNA Administration [...] first year of use or admission to U. If GDR attempted, monitor resident symptoms/behaviors. Medical [...] User: Dr. Juan Reed MD 10/30/24 16:05 [facility] RX Drug Regimen Review Provider Comments Provider responsibility Provider Comments to Recommendations by Pharmacy Agree 10/30/24 1601 Nimo Light Signature (if applicable): 10/30/24 1605 CC: ~ Signed [facility]06-26-2025 [facility] Medical Records Department [address] [place] [address] History Physical Exam 10/29/241908 MR#: [id number] Acct: [id number] Name: KRISTOPHERTIM Enoc Rep #: [id number] : 1940 83 From: Juan Reed MD PCP: VALENTIN Marrufo Status:ADM IN [facility] HPI - General General Date of Admission: 10/29/24 Date of Service: 10/29/24 Chief Complaint: Here for rehabilitation. HPI Narrative TIM ADAMSON, is a 83 Male who presents with followin10/20/2024 Admit to [facility]. Recent fall with rib fracture. Acute delirium [...] weeks bladder rest for urinary retention. 10/27/2024 CAFETERIA COUNTER ATTENDANT called for increasing oxygen requirement, Lasix 40mg [...] strengthening, prior to discharge home with . [facility] Medical History (Updated 10/29/24 @ 19:33 by [...] or nasal discharge C (more content not included)...[facility]06-26-2025 Evaluation note* Diagnosis Onset Date Resolution Status [...] 29, 2024 3:48pm Hyponatremia acute October 29, 3:48pm Iron deficiency anemia acute Ju 2024 3:48pm Pneumonia acute October 29 3:48pm Type 2 diabetes mellitus wit h hyperglycemia acute October 29, 2024 3:48pm Urinary retention acute October 292024 3:48pm Vascular dementia acute October 292024 3:48pm [facility] Work Phone: 1(410) 411-696406-26-2025 Evaluation note* Diagnosis Onset Date Resolution Status Admit Date Anxiety acute October 29 3:48pm BPH (benign prostatic hyperplasia) acute October 29, 2024 3:48pm Debility acute October 29 3:48pm Essential (primary) hypertension acute October 29, 2024 3:48pm Glaucoma acute October 29 3:48pm Hyperlipidemia, unspecified acute October 29, 2024 3:48pm Iron deficiency anemia acute Ju pa 2024 3:48pm Type 2 diabetes mellitus wit h hyperglycemia acute October 29, 2024 3:48pm Urinary retention acute October 292024 3:48pm Vascular dementia acute October 292024 3:48pm Acute delirium resolved October 29, 2024 3:48pm Acute heart failure with preserved ejection fraction (HFpEF) resolved October 29, 2024 3:48pm Acute respiratory failure wi th hypoxia resolved October 29, 2024 3:48pm Cardiac arrest resolved October 29, 2024 3:48pm Hyponatremia resolved October 29 025 3:48pm Pneumonia resolved October 29 3:48pm [facility] Work Phone: 1(912) 299-825106-26-2025 Discharge summary Date of Service 10/29/2024 Discharge Diagnosis 1. Cardiac arrest 2. Diastolic dysfunction with heart failure 3. Acute hypoxic respiratory failure 4. Acute urinary retention 5. Hyponatremia 6. Altered mental state 7. Type 2 diabetes mellitus 8. Anxiety 9. Hyperlipidemia 10. HTN Hospital Course This is a split/shared visit with Dr. Prado. Pt is an 83-year-old male with history of essentialhypertension, cpg-psvwigk-mtyzrlizh type 2 diabetes mellitus, dementia, and hyperlipidemia [...] PT/OT recommending SNF at discharge. Accepted at [facility]. Pt medically optimized for discharge, family [...] Follow Up Follow Up with RASHMI PRICE APRN-ANGIE When:Within 1-2 days Where:0 [place] [address]- [phone] Additional Information: Please call the office to [...] by PHUONG NEAL on 10/29/2024 02:01 PM [facility] Hospital Discharge instructions Patient Education 10/29/2024 14:20:21 [...] breathing. Follow these instructions at home: Take vacv-xbb-ghpmchf and prescription medicines only as told by [...] 04/27/2014 Document Revised: 04/04/2018 Document Reviewed: 11/07/2016 eeGeo Patient Education 2020 [employer]. Follow Up Care 10/20/2024 13:54:14 With:Discharge to [facility], skilled, ; ambulance transport arranged for 3pm through [facility], Ext. [phone] Address:Unknown When:1-2 days With:[facility] Address: When:Within 4 Week(s) With:SKYLAR ODNG MD, [facility] Address: [address] [facility] [address] [place] [address] [phone] When:Within 2 Week(s) only if needed With:BELKYS ALCANTAR MD Address: [address] [place] [address] [address] [facility] [place] [address]- [phone] When:Within 4 Week(s) With:RASHMI PRICE APRN-[facility] Address: [address] [facility] [place] [address]- [phone] When:1-2 days Comments:Please call the office to schedule a hospital follow up appointment. [facility] 06-26-2025 Note Discharge Instructions Thank you for allowing Christa to assist you with your healthcare needs. [...] OV 01/06/2025 10:30 AM EDT RASHMI PRICE [facility] [address] [place] [phone] Confirmed Follow Up Appointments Follow Up with Discharge to [facility], skilled, ; ambulance transport arranged for 3pm through [facility], Ext. [phone] When:Within 1-2 days Follow Up with [facility] When:In 4 weeks Follow Up with SKYLAR DONG MD, [facility] When:In 2 weeks , only if needed Where:[address] [facility] [address] [place] [address]- [phone] Follow Up with BELKYS ALCANTAR MD When:In 4 weeks Where:[address] [facility] [place] [address]- [phone] Follow Up with RASHMI PRICE When:Within 1-2 days Where:[address] [place], [place] [address]- [phone] Additional Information: Please call the office to [...] breathing. Follow these instructions at home: Take turf-nbo-ljoljsv and prescription medicines only as told by [...] 04/27/2014 Document Revised: 04/04/2018 Document Reviewed: 11/07/2016 Elsevier Patient Education 2020 [employer]eGeo Inc. Additional Information VACCINATE! IT SAVES LIVES! Members of the community who have not yet received the COVID-19 vaccine and would like to receive it can visit one of [facility] vaccine clinics. There are many vaccine clinic locations within the [facility]. For locations and available times, please visit [email or web address]/. It is important to note that some COVID mobile vaccine clinics are held outdoors and may be canceled in rainy or stormy conditions. To learn more about pediatric vaccinations (ages 5-11), we invite you to visit the [employer] [facility] webpage. https://www.Mechios.org/pages/2122-Pvayn-Zvcsvephmpd-Fpbpfvahzj-Dufzz-Vwx stions.htmlTo learn more about the COVID-19 vaccine, we invite you to visit the CDC website for a list of frequently asked questions.https://www.cdc.gov/coronavirus/2019-ncov/vaccines/faq.html [facility] Patient Portal Access Instructions: Stay connected with your healthcare team and access your personal medical information anytime with the [facility] Patient Portal. Please follow the directions below to create your [facility] account: 1.Access the email account you provided upon registration to the hospital/physician office.2.Look for an invitation email from [facility].3.Open the email and access the invitation link: AcceptInvitation to [facility].4.Fill in the required small to create your account. To access your account, visit [email or web address] [email or web address]. Click the blue button labeled Access Patient Portal and then log in with the username [...] who you will allowto register on the [place] [facility] Patient Portal for access to your information. You can also access the [facility] on the [place] Anywhere darrel. Simply click on Patient Portal and then log into your account. If you would like to receive a full copy of your medical records, please contact the [facility] Medical Records Department by calling [phone], Saturday through Saturday between 8 a.m. and [...] Call your local pharmacy or go to http://APU Solutions/0I1Eq4x to find one close to you.3.Make use of household items: Use cat litter or old coffee grounds to dispose medications if other options arenot available. Mix your drugs with these household products, seal them in an airtight container andthrow it into the garbage. Call [facility]: [phone] to be sure your drugs can be [...] aware that I should contact my doctor. Patient/Layer Out Plate Glass Signature: Date/Time: Relationship to Patient: Witness Name/Signature: Date/Time: [facility] HospitalUmczuzia07-84-1115 Note Discharge Instructions Thank you for allowing Christa to assist you with your healthcare needs. The following is importantdischarge information regarding your hospital visit. Your Care Team RASHMI PRICE APRN-ANGIE Your Diagnosis Acute hypoxic respiratory failure Acute urinary retention Altered mental state Anxiety Atherosclerosis of aorta Cardiac arrest Diastolic dysfunction with heart failure Hyperlipidemia Hypertension Hyponatremia Seasonal allergies Toxic metabolic encephalopathy Type 2 diabetes mellitus What to do next Scheduled Follow-Up Appointments Appointment Type When With Where Contact Information StatusPC OV 01/06/2025 10:30 AM EDT RASHMI PRICE [address] [phone] Confirmed Follow Up Appointments Follow Up with Discharge to [facility], skilled, ; ambulance transport arranged for 3pm through [facility], Ext. [phone] When:Within 1-2 days [facility] Up with [facility] When:In 4 weeks Follow Up with SKYLAR DONG MD, [facility] When:In 2 weeks , only if needed Where:[address] [place] [phone] Follow Up with BELKYS ALCANTAR MD When:In 4 weeks Where:[address] [facility] [place] [address] [phone] Follow Up with RASHMI PRICE APRN-ANGIE When:Within 1-2 days Where:[address] [place], [place] [address]- [phone] Additional Information: Please call the office to [...] to receive it can visit one of [facility] vaccine clinics. There are many vaccine clinic locations within the [facility]. For locations and available times, please visit [email or web address]/. It is important to note that some COVID mobile vaccine clinics are held outdoors and may be canceled in rainy or stormy conditions. To learn more about pediatric vaccinations (ages 5-11), we invite you to visit the [facility] webpage. https://www.[facility].org/pages/2211-Buwre-Vmaeqrnyfps-Htpleiuxyo-Bolrv-Ock stions.htmlTo learn more about the COVID-19 vaccine, we invite you to visit the CDC website for a list of frequently asked questions.https://www.cdc.gov/coronavirus/2019-ncov/vaccines/faq.html [facility] Patient Portal Access Instructions: Stay connected with your healthcare team and access your personal medical information anytime with the [facility] Patient Portal. Please follow the directions below to create your [facility] account: 1.Access the email account you provided upon registration to the hospital/physician office.2.Look for an invitation email from [facility].3.Open the email and access the invitation link: AcceptInvitation to [facility].4.Fill in the required small to create your account. To access your account, visit [email or web address]. Click the blue button labeled Access Patient Portal and then log in with the username [...] who you will allowto register on the [place] [facility] Patient Portal for access to your information. You can also access the [place] [facility] Patient Portal on the [place] Anywhere darrel. Simply click on Patient Portal and then log into your account. If you would like to receive a full copy of your medical records, please contact the [facility] Medical Records Department by calling [phone], Saturday through Saturday between 8 a.m. and [...] Call your local pharmacy or go to http://bit.Matter.io/5G9Mi5e to find one close to you.3.Make use of household items: Use cat litter or old coffee grounds to dispose medications if other options arenot available. Mix your drugs with these household products, seal them in an airtight container andthrow it into the garbage. Call [facility]: [phone] to be sure your drugs can be [...] aware that I should contact my doctor. Patient/Layer Out Plate Glass Signature: Date/Time: Relationship to Patient: Witness Name/Signature: Date/Time: [facility] HospitalFgywtfvu11-54-5762 Discharge summary Date of Service 10/29/2024 Discharge Diagnosis 1. Cardiac arrest 2. Diastolic dysfunction with heart failure 3. Acute hypoxic respiratory failure 4. Acute urinary retention 5. Hyponatremia 6. Altered mental state 7. Type 2 diabetes mellitus 8. Anxiety 9. Hyperlipidemia 10. HTN Hospital Course This is a split/shared visit with Dr. Prado. Pt is an 83-year-old male with history of essentialhypertension, wvn-ynalkki-mfjchqfiq type 2 diabetes mellitus, dementia, and hyperlipidemia [...] PT/OT [facility] medically [facility] for [facility], family in [...] Follow Up Follow Up with RASHMI PRICE APRN-ANGIE When:Within 1-2 days Where:0 [place] [address]- [phone] Additional Information: Please call the office to [...] by PHUONG NEAL on 10/29/2024 02:01 PM [facility] HospitalViasmzfr62-00-6836 Cardiology Progress note Subjective Patient continued to [...] tab(s), Oral, qDay fluticasone nasal 0.05 mg/inh [place] 50 mcg 1 spray(s), Nasal, qDay guaifenesin [...] BELKYS ALCANTAR MD on 10/28/2024 08:29 PM [facility] HospitalLytbgxzz71-36-1772 Note Date of Service 10/28/2024 Chief Complaint Hypoxia Subjective Pt is an 83-year-old male with history of essential hypertension, ald-vseidzs-qrchxymrs type 2 diabetes mellitus, dementia, and hyperlipidemia [...] tab(s), Oral, qDay fluticasone nasal 0.05 mg/inh [place] 50 mcg 1 spray(s), Nasal, qDay guaifenesin [...] by PHUONG NEAL on 10/28/2024 12:17 PM [facility] HospitalIxsylkzi98-87-6665 Note* Exam Date Time Procedure Performing Provider Status 10/28/24 12:49 PM XR Chest 1 View SOSA YAO DO; Auth (Verified) [id number] ORIGINAL EXAMINATION: ONE XRAY VIEW OF THE [...] 10/28/2024 4:31:31 PM Ordering Provider: ROSI PRADO [facility] HospitalPbvayeub41-76-1656 Note Date of Service 10/28/2024 Chief Complaint Hypoxia Subjective Pt is an 83-year-old male with history of essential hypertension, vat-mhfagdh-dtpbfegth type 2 diabetes mellitus, dementia, and hyperlipidemia [...] HR: 98 (Monitored) RR: 23 BP: 128/81 SpO2: 91% Intake and Output 7AM Yesterday to 7AM [...] tab(s), Oral, qDay fluticasone nasal 0.05 mg/inh [place] 50 mcg 1 spray(s), Nasal, qDay guaifenesin [...] by PHUONG NEAL on 10/28/2024 12:17 PM [facility] HospitalSgzlmfgb91-24-5337 Note Date of Service 10/27/2024 Chief Complaint Shortness of breath, confusion Subjective 83-year-old male with history of essential hypertension, xhd-ezopglb-pvdrtxdyn type 2 diabetes mellitus, dementia, hyperlipidemia presented [...] tab(s), Oral, qDay fluticasone nasal 0.05 mg/inh [place] 50 mcg 1 spray(s), Nasal, qDay guaifenesin [...] by DEIDRA RODRIGUEZ on 10/27/2024 12:03 PM [facility] HospitalCeyvogpb86-58-2206 Note Date of Service 10/27/2024 Chief Complaint Shortness of breath, confusion Subjective 83-year-old male with history of essential hypertension, uzb-pztxrxg-phdvsdkdk type 2 diabetes mellitus, dementia, hyperlipidemia presented [...] tab(s), Oral, qDay fluticasone nasal 0.05 mg/inh [place] 50 mcg 1 spray(s), Nasal, qDay guaifenesin [...] by DEIDRA RODRIGUEZ on 10/27/2024 12:03 PM [facility] HospitalCowixcng49-37-4921 Cardiology Progress note Date of Service 10/27/2024 [...] sounds bilaterally, crackles in bilateral bases, no securities attorney muscle use, supplemental O2 in place Heart: [...] tab(s), Oral, qDay fluticasone nasal 0.05 mg/inh [place] 50 mcg 1 spray(s), Nasal, qDay heparin [...] 01:36 PM Digitally Signed by BELKYS ALCANTAR MDltman Zoxewtdl89-18-8007 Note Date of Service 10/26/2024 Chief Complaint altered mental status Subjective 83-year-old male with history of essential hypertension, pjt-uqlvkfu-thoslpbmf type 2 diabetes mellitus, dementia, hyperlipidemia presented [...] tab(s), Oral, qDay fluticasone nasal 0.05 mg/inh [place] 50 mcg 1 spray(s), Nasal, qDay heparin [...] by DEIDRA RODRIGUEZ on 10/26/2024 12:55 PM [facility] HospitalYbfcdhfg31-44-5925 Note* Exam Date Time Procedure Performing Provider Status 10/26/24 9:[address] Thorax w/ Contrast GIOVANI WARREN MD; Auth (Verified) [id number] ORIGINAL EXAMINATION: CT OF THE CHEST WITH [...] Sign Date: 10/27/2024 3:57:32 AM Ordering Provider: [facility]06-23-2025 Note Reason for Consultation Admission From: Home [...] Addis Puente RN on 10/26/2024 04:36 PM [facility] HospitalFztnqwhd90-07-8190 Note* Exam Date Time Procedure Performing Provider Status 10/26/24 4:05 PM Echocardiogram, Adult - CV ALDO ALCANTAR MD; Auth (Verified) [facility] HospitalFoqypfix59-98-2359 Cardiology Consult note Date of Service 10/25/2024 [...] Retired. Description: Cosme, 04/09/2024 Home/Environment self Primary Range Mounter:., 12/09/2018 Nutrition/Health Type of diet: Regular. Appetite [...] (COVID-19) mRNA-1273 vaccine: 0 unknown unit (05/25/20) tetanus/diphtheria/pertussMUL.ORD!z13366: 0.5 unknown unit (08/03/21) tetanus/diphtheria/pertussMUL.ORD!h35057: 0 unknown unit (08/25/12) zoster vaccine, inactivated: 1 unknown unit (05/16/19) zoster vaccine, inactivated: 1 unknown unit (02/04/19) Digitally Signed by JOE CABRERA MD on 10/25/2024 10:46 AM [facility] HospitalQcvnycsk09-17-2724 Cardiology Progress note Date of Service 10/26/2024 [...] sounds bilaterally, crackles in bilateral bases, no securities attorney muscle use, supplemental O2 in place Heart: [...] tab(s), Oral, qDay fluticasone nasal 0.05 mg/inh [place] 50 mcg 1 spray(s), Nasal, qDay heparin [...] PM Digitally Signed by BELKYS ALCANTAR MD [facility] HospitalYpdnpkcl87-92-3714 Note Date of Service 10/26/2024 Chief Complaint altered mental status Subjective 83-year-old male with history of essential hypertension, hru-dokcpab-vjoqvypfd type 2 diabetes mellitus, dementia, hyperlipidemia presented [...] tab(s), Oral, qDay fluticasone nasal 0.05 mg/inh [place] 50 mcg 1 spray(s), Nasal, qDay heparin [...] by DEIDRA RODRIGUEZ on 10/26/2024 12:55 PM [facility] HospitalUfouhpnb03-65-6748 Note* Exam Date Time Procedure Performing Provider Status 10/26/24 10:17 AM XR Chest 1 View MIRIAN DENNY MD; th (Verified) [id number] ORIGINAL EXAMINATION: ONE XRAY VIEW OF THE [...] 10/26/2024 10:31:55 AM Ordering Provider: DEIDRA RODRIGUEZ [facility] HospitalTekiaflh29-05-6548 Urology Progress note Date of Service 10/25/2024 [...] tab(s), Oral, qDay fluticasone nasal 0.05 mg/inh [place] 50 mcg 1 spray(s), Nasal, qDay heparin [...] LILLY MCINTOSH MD on 10/25/2024 03:54 PM [facility] HospitalAdolmhol60-13-5314 History and physical note Date of Service [...] the the hospitalist. ABG showed pH 7.508, AYN607, PO2 37.5, O2 sat 74.9 on 15 [...] the the hospitalist. ABG showed pH 7.508, WBZ687, PO2 37.5, O2 sat 74.9 on 15 [...] urinary retention. Case discussed with attending Dr. Angl, please see addendum for any changes. Problem [...] Retired. Description: Cosme, 04/09/2024 Home/Environment self Primary Range Mounter:., 12/09/2018 Nutrition/Health Type of diet: Regular. Appetite [...] (COVID-19) mRNA-1273 vaccine: 0 unknown unit (05/25/20) tetanus/diphtheria/pertussMUL.ORD!f00224: 0.5 unknown unit (08/03/21) tetanus/diphtheria/pertussMUL.ORD!y89130: 0 unknown unit (08/25/12) zoster vaccine, inactivated: 1 unknown unit (05/16/19) zoster vaccine, inactivated: 1 unknown unit (02/04/19) Code Status Code Status - Ordered -- 10/20/24 22:35:00 EDT, Full Code, Constant Order Digitally Signed by LUIS SAMUELS DO on 10/25/2024 06:18 AM [facility] HospitalZcfwpgcq85-72-9791 Evaluation + Plan noteExtracted from: Title:MICU History [...] the the hospitalist. ABG showed pH 7.508, RXG403, PO2 37.5, O2 sat 74.9 on 15 L nasal cannula. Patient was subsequently put on BiPAP without improvement in his oxygenation. Therefore, he was subsequently transferred to MICU for further evaluation management. When the patient was here in the MICU, his oxygenation improved to the mid 90s on BiPAP (14/) with FiO2 85%; therefore, intubation was hold [...] was given normal saline bolus in the [place] ED, sodium did improve from 122-123. Continue [...] Appointment Date:01/06/2025 10:30:00 AM Scheduled Provider:RASHMI PRICE Location:[facility] Appointment Type:PC OV Diagnostic Tests Pending * Culture Respiratory with Gram Stain 10/25/24 [facility] 06-22-2025 Cardiology Consult note Date of [...] Retired. Description: Cosme, 04/09/2024 Home/Environment self Primary Range Mounter:., 12/09/2018 Nutrition/Health Type of diet: Regular. Appetite [...] (COVID-19) mRNA-1273 vaccine: 0 unknown unit (05/25/20) tetanus/diphtheria/pertussMUL.ORD!y83379: 0.5 unknown unit (08/03/21) tetanus/diphtheria/pertussMUL.ORD!p76669: 0 unknown unit (08/25/12) zoster vaccine, inactivated: 1 unknown unit (05/16/19) zoster vaccine, inactivated: 1 unknown unit (02/04/19) Digitally Signed by JOE CABRERA MD on 10/25/2024 10:46 AM [facility] HospitalPmmqlovn45-53-2417 Note. MICRO - Microbiology PROCEDURE: Streptococcus Pneumoniae [...] Locations *1: This test was performed at: [address], [facility] , [facility]06-22-2025 Note. MICRO - Microbiology PROCEDURE: Legionella [...] Locations *1: This test was performed at: [address], [facility] , [facility] [id number] Note Date of Service 10/25/2024 I discussed the patient's CODE STATUS with his healthcare power of city attorney Lilly Monroy who wanted to switch his CODE STATUS to DNR/DNI. This DNR/DNI CODE STATUS was explained further to his POA who verbalized understanding and was agreeable to switching the patient's CODE STATUS to DNR/DNI. Digitally Signed by LUIS SAMUELS DO on 10/25/2024 04:51 AM [facility] HospitalAiwugixa55-50-1183 Note* Exam Date Time Procedure Performing Provider Status 10/25/24 2:07 AM XR Chest 1 View TIEN CAN MD; Aut h (Verified) [id number] ORIGINAL EXAMINATION: ONE XRAY VIEW OF THE [...] Sign Date: 10/25/2024 2:15:00 AM Ordering Provider: [facility]06-22-2025 History and physical note Date of Service [...] the the hospitalist. ABG showed pH 7.508, BUI747, PO2 37.5, O2 sat 74.9 on 15 L nasal cannula. Patient was subsequently put on BiPAP without improvement in his oxygenation. Therefore, he was subsequently transferred to MICU for further evaluation management. When the patient was here in the MICU, his oxygenation improved to the mid 90s on BiPAP (8) withFiO2 85%; therefore, intubation was hold off. [...] the the hospitalist. ABG showed pH 7.508, SJH054, PO2 37.5, O2 sat 74.9 on 15 [...] Retired. Description: Gurdeep., 04/09/2024 Home/Environment self Primary Range Mounter:., 12/09/2018 Nutrition/Health Type of diet: Regular. Appetite [...] (COVID-19) mRNA-1273 vaccine: 0 unknown unit (05/25/20) tetanus/diphtheria/pertussMUL.ORD!m26073: 0.5 unknown unit (08/03/21) tetanus/diphtheria/pertussMUL.ORD!c51161: 0 unknown unit (08/25/12) zoster vaccine, inactivated: 1 unknown unit (05/16/19) zoster vaccine, inactivated: 1 unknown unit (02/04/19) Code Status Code Status - Ordered -- 10/20/24 22:35:00 EDT, Full Code, Constant Order Digitally Signed by LUIS SAMUELS DO on 10/25/2024 06:18 AM [facility] HospitalSywpofpk93-67-2834 Note Date of Service 10/24/24 Reason for Consultation transfer out of ICU Referring Physician ICU History of Present Illness 83-year-old male with history of essential hypertension, iki-khseged-fwzqsgpfd type 2 diabetes mellitus, dementia, hyperlipidemia presented [...] Timed Study (collect at specified time), Blood, [id number], for 14 day(s), Preferred Lab: [facility], Stop date 11/07/24 5:00:00 EDT Complete Metabolic Panel(CMP), 10/25/24 5:00:00 EDT, Timed Study (collect at specified time), Blood, [id number], for 14 day(s), Preferred Lab: [facility], Stop date 11/07/24 5:00:00 EDT Consult [...] Nurse and Monitor, Full Code, 70.5 kg, [facility]... Electrocardiogram(EKG), 10/24/24 7:28:00 EDT, follow up ekg from patients cardiac arrest Ferritin, 10/25/24 5:00:00 EDT, Next AM Draw (one day only), Blood, Once, Preferred Lab: [facility], Stop date 10/25/24 5:00:00 EDT Iron Studies, 10/25/24 5:00:00 EDT, Next AM Draw (one day only), Blood, Once, Preferred Lab: [facility], Stop date 10/25/24 5:00:00 EDT Magnesium Level(MG Level), 10/25/24 5:00:00 EDT, Timed Study (collect at specified time), Blood, [id number], for 14 day(s), Preferred Lab: [facility], Stop date 11/07/24 5:00:00 EDT Transfer/Change [...] (one day only), Blood, Once, Preferred Lab: [facility], Stop date 10/25/24 5:00:00 EDT I [...] CODE STATUS with patient's healthcare power of city attorney. They do wish to continue full [...] Retired. Description: Cosme, 04/09/2024 Home/Environment self Primary Range Mounter:., 12/09/2018 Nutrition/Health Type of diet: Regular. Appetite [...] (COVID-19) mRNA-1273 vaccine: 0 unknown unit (05/25/20) tetanus/diphtheria/pertussMUL.ORD!k72768: 0.5 unknown unit (08/03/21) tetanus/diphtheria/pertussMUL.ORD!v04205: 0 unknown unit (08/25/12) zoster vaccine, inactivated: 1 unknown unit (05/16/19) zoster vaccine, inactivated: 1 unknown unit (02/04/19) [1] Echocardiogram, Adult - CV; Tanesha Harrise B Chiropractor Assistant 05/18/2024 13:19 EST [2] Echocardiogram, Adult - CV; Tanesha Harrise B Chiropractor Assistant 05/18/2024 13:19 EST Digitally Signed by NATASHA TALAVERA MD on 10/24/2024 03:55 PM [facility] [id number] Note Date of Service 10/24/24 Reason for Consultation transfer out of ICU Referring Physician ICU History of Present Illness 83-year-old male with history of essential hypertension, oie-suvvwva-peebswmfs type 2 diabetes mellitus, dementia, hyperlipidemia presented [...] Timed Study (collect at specified time), Blood, [id number], for 14 day(s), Preferred Lab: [facility], Stop date 11/07/24 5:00:00 EDT Complete Metabolic Panel(CMP), 10/25/24 5:00:00 EDT, Timed Study (collect at specified time), Blood, [id number], for 14 day(s), Preferred Lab: [facility], Stop date 11/07/24 5:00:00 EDT Consult [...] Nurse and Monitor, Full Code, 70.5 kg, [facility]... Electrocardiogram(EKG), 10/24/24 7:28:00 EDT, follow up ekg from patients cardiac arrest Ferritin, 10/25/24 5:00:00 EDT, Next AM Draw (one day only), Blood, Once, Preferred Lab: [facility], Stop date 10/25/24 5:00:00 EDT Iron Studies, 10/25/24 5:00:00 EDT, Next AM Draw (one day only), Blood, Once, Preferred Lab: [facility], Stop date 10/25/24 5:00:00 EDT Magnesium Level(MG Level), 10/25/24 5:00:00 EDT, Timed Study (collect at specified time), Blood, [id number], for 14 day(s), [facility], Stop date 11/07/24 5:00:00 EDT Transfer/Change in [...] (one day only), Blood, Once, Preferred Lab: [facility], Stop date 10/25/24 5:00:00 EDT I transferred [...] CODE STATUS with patient's healthcare power of city attorney. They do wish to continue full [...] Retired. Description: Gurdeep., 04/09/2024 Home/Environment self Primary Range Mounter:., 12/09/2018 Nutrition/Health Type of diet: Regular. Appetite [...] (COVID-19) mRNA-1273 vaccine: 0 unknown unit (05/25/20) tetanus/diphtheria/pertussMUL.ORD!h44503: 0.5 unknown unit (08/03/21) tetanus/diphtheria/pertussMUL.ORD!w56995: 0 unknown unit (08/25/12) zoster vaccine, inactivated: 1 unknown unit (05/16/19) zoster vaccine, inactivated: 1 unknown unit (02/04/19) [1] Echocardiogram, Adult - CV; Rhina Harris Chiropractor Assistant 05/18/2024 13:19 EST [2] Echocardiogram, Adult - CV; Tanesha Harrise Fred Chiropractor Assistant 05/18/2024 13:19 EST Digitally Signed by NATASHA TALAVERA MD on 10/24/2024 03:55 PM [facility] [id number] Note Date of Service 10/24/24 Reason for Consultation transfer out of ICU Referring Physician ICU History of Present Illness 83-year-old male with history of essential hypertension, hnn-iarptgk-zqoedlixx type 2 diabetes mellitus, dementia, hyperlipidemia presented [...] Timed Study (collect at specified time), Blood, [id number], for 14 day(s), Preferred Lab: [facility], Stop date 11/07/24 5:00:00 EDT Complete Metabolic Panel(CMP), 10/25/24 5:00:00 EDT, Timed Study (collect at specified time), Blood, [id number], for 14 day(s), Preferred Lab: [facility], Stop date 11/07/24 5:00:00 EDT Consult [...] Nurse and Monitor, Full Code, 70.5 kg, [facility]... Electrocardiogram(EKG), 10/24/24 7:28:00 EDT, follow up ekg from patients cardiac arrest Ferritin, 10/25/24 5:00:00 EDT, Next AM Draw (one day only), Blood, Once, [facility], Stop date 10/25/24 5:00:00 EDT Iron Studies, 10/25/24 5:00:00 EDT, Next AM Draw (one day only), Blood, Once, [facility], Stop date 10/25/24 5:00:00 EDT Magnesium Level(MG Level), 10/25/24 5:00:00 EDT, Timed Study (collect at specified time), Blood, [id number], for 14 day(s), [facility], Stop date 11/07/24 5:00:00 EDT Transfer/Change in [...] (one day only), Blood, Once, [facility], Stop date 10/25/24 5:00:00 EDT I transferred [...] CODE STATUS with patient's healthcare power of city attorney. They do wish to continue full [...] per year., 07/08/2024 Employment/School Status: Retired. Description: Falgunicelina., 04/09/2024 Home/Environment self Primary Range Mounter:., 12/09/2018 Nutrition/Health Type of diet: Regular. Appetite [...] (COVID-19) mRNA-1273 vaccine: 0 unknown unit (05/25/20) tetanus/diphtheria/pertussMUL.ORD!n02790: 0.5 unknown unit (08/03/21) tetanus/diphtheria/pertussMUL.ORD!q86958: 0 unknown unit (08/25/12) zoster vaccine, inactivated: 1 unknown unit (05/16/19) zoster vaccine, inactivated: 1 unknown unit (02/04/19) [1] Echocardiogram, Adult - CV; Rhina Harris Chiropractor Assistant 05/18/2024 13:19 EST [2] Echocardiogram, Adult - CV; Rhina Harris Chiropractor Assistant 05/18/2024 13:19 EST Digitally Signed by NATASHA TALAVERA MD on 10/24/2024 03:55 PM [facility] [id number] Urology Consult note Date of Service 10/24/2024 [...] Retired. Description: Cosme, 04/09/2024 Home/Environment self Primary Range Mounter:., 12/09/2018 Nutrition/Health Type of diet: Regular. Appetite [...] (COVID-19) mRNA-1273 vaccine: 0 unknown unit (05/25/20) tetanus/diphtheria/pertussMUL.ORD!e09823: 0.5 unknown unit (08/03/21) tetanus/diphtheria/pertussMUL.ORD!p73738: 0 unknown unit (08/25/12) zoster vaccine, inactivated: 1 unknown unit (05/16/19) zoster vaccine, inactivated: 1 unknown unit (02/04/19) Digitally Signed by LILLY MCINTOSH MD on 10/25/2024 03:43 PM [facility] [id number] Note* Exam Date Time Procedure Performing Provider Status 10/24/24 3:02 PM XR Chest 1 View HUBER CORRAL DO; Shea [facility] [place] (Verified) [id number] ORIGINAL EXAMINATION: Exam Title:ONE XRAY VIEW OF THE CHEST Completed Time: 10/24/2024 3:02 pm Procedure Description:CHEST ONE VIEW AP/PA COMPARISON: October 21, 2024 chest x-ray HISTORY: ORDERING SYSTEM PROVIDED HISTORY: Reason for Exam: crackles bilaterally recent cardiac arrest FINDINGS: Mild cardiomegaly. Sfom-qf-csvnskjp pulmonary vascular congestion. Basilar atelectasis. No evidence for pneumothorax. Atherosclerotic disease. Degenerative change of the spine. IMPRESSION: [] Image findings compatible with congestive failure. Superimposing airspace process considered. Correlate with clinical findings. Interpreted by: Huber Corral DO Preliminary Report By: Huber G. Meoli, DO Electronically signed By Huber Corral DO Dictated Date: 10/24/2024 3:04:18 PM Prelim Date: 10/24/2024 3:04:51 PM Sign Date: 10/24/2024 3:04:51 PM Ordering Provider: NATASHA TALAVERA [facility] [id number] Note* Exam Date Time Procedure Performing Provider [...] Electronic Signature: TAL MALIK MD 10/25/2024 15:10:11 [facility] HospitalDmckwmvp07-43-7549 Note* Exam Date Time Procedure Performing Provider Status 10/23/24 8:[address] Head or Brain w/o Contrast NÉSTOR SNYDER MD; Auth (Verified) [id number] ORIGINAL EXAMINATION: CT OF THE HEAD WITHOUT [...] Sign Date: 10/23/2024 8:49:06 PM Ordering Provider: [facility]06-20-2025 Note Date of Service 10/23/2024 [...] tab(s), Oral, qDay fluticasone nasal 0.05 mg/inh [place] 50 mcg 1 spray(s), Nasal, qDay heparin [...] diabetes, mild dementia Plan Continue Flomax. Trial Reilyl catheter out Sodium continues to appropriately uptrend. [...] SHYANNE GUTHRIE MD on 10/23/2024 12:23 PM [facility] [id number] Neurology Progress note Date of Service 10/23/24 [...] to person and BD only reported september/at fire dept Language: Normal fluency, normal simple comprehension [...] distally RLE: 5/5 proximally, 5/5 distally Coordination: Uvncmb-pbwh-ditanu movements: No ataxia present Reflexes: R: L [...] tab(s), Oral, qDay fluticasone nasal 0.05 mg/inh [place] 50 mcg 1 spray(s), Nasal, qDay heparin [...] management per medical team -Case discussed with SIMULATION ENGINEER -Patient counseled the risks and health hazards [...] by SHANAE AVILA on 10/23/2024 12:53 PM [facility] [id number] Note* Exam Date Time Procedure Performing Provider Status 10/22/24 5:27 PM MRI Brain w/o Contrast RASHMI AGUIRRE DO; Auth (Verified) [id number] ORIGINAL EXAMINATION: MRI OF THE BRAIN WITHOUT [...] Sign Date: 10/22/2024 5:41:11 PM Ordering Provider: [facility]06-19-2025 Pastoral care Progress note Pastoral Care Note Entered On: 10/22/2024 14:05 EDT Performed On: 10/22/2024 11:00 EDT by Joe Martin Pastoral Care Type of Pastoral Visit : Initial [...] - 10/22/2024 14:00 EDT Digitally Signed by Veronica Joe on 10/22/2024 02:00 PM [facility] [id number] Neurology Consult note Date of Service 10/22/2024 [...] Retired. Description: Cosme, 04/09/2024 Home/Environment self Primary Range Mounter:., 12/09/2018 Nutrition/Health Type of diet: Regular. Appetite [...] WALTER CUEVAS MD on 10/22/2024 12:31 PM [facility] [id number] History and physical note Date of Service [...] of confusion brought to the ED in [place] for further evaluation. Patient with no medications, [...] Retired. Description: Gurdeep., 04/09/2024 Home/Environment self Primary Range Mounter:., 12/09/2018 Nutrition/Health Type of diet: Regular. Appetite [...] LUIS SAMUELS DO on 10/21/2024 05:09 PM [facility] [id number] Note. MICRO - Microbiology PROCEDURE: Urine Culture [...] Locations *1: This test was performed at: [address], [facility] , [facility]06-18-2025 Note* Exam Date Time Procedure Performing Provider Status 10/21/24 3:26 PM Electrocardiogram - EKG - CV VALERIE CAREY MD; Auth (Verified) ECG Final Report Sinus rhythm Probable left atrial enlargement Left bundle branch block Electronic Signature: BRIGITTE CAREY MD 10/22/2024 22:44:36 [facility] [id number] Note* Exam Date Time Procedure Performing Provider Status 10/21/24 3:12 PM XR Enteric Tube Placement MAR KNUTSON DO; Auth (Verified) [id number] ORIGINAL EXAMINATION: ONE SUPINE XRAY VIEW(S) OF [...] 10/21/2024 3:45:47 PM Ordering Provider: LUIS SAMUELS [facility] [id number] History and physical note Date of Service [...] of confusion brought to the ED in [place] for further evaluation. Patient with no medications, [...] Retired. Description: Gurdeep., 04/09/2024 Home/Environment self Primary Range Mounter:., 12/09/2018 Nutrition/Health Type of diet: Regular. Appetite [...] LUIS SAMUELS DO on 10/21/2024 05:09 PM [facility] [id number] Progress note Date of Service 10/21/2024 At [...] LUIS SAMUELS DO on 10/21/2024 03:47 PM [facility] [id number] Note* Exam Date Time Procedure Performing Provider Status 10/21/24 2:08 PM Electrocardiogram - EKG - CV VALERIE CAREY MD; Auth (Verified) ECG Final Report Right and left arm electrode reversal, interpretation assumes no reversal SINUS RHYTHM Left atrial enlargement LEFT BUNDLE BRANCH BLOCK Electronic Signature: BRIGITTE CAREY MD 10/22/2024 22:44:26 [facility] [id number] History and physical note Date of Service [...] of confusion brought to the ED in [place] for further evaluation. Patient with no medications, [...] g iven normal saline bolus in the [place] ED, sodium did improve from 122-123. Continue [...] Retired. Description: Cosme, 04/09/2024 Home/Environment self Primary Range Mounter:., 12/09/2018 Nutrition/Health Type of diet: Regular. Appetite [...] ARAM BELL DO on 10/20/2024 11:54 PM [facility] [id number] Note* Exam Date Time Procedure Performing Provider Status 10/20/24 11:50 AM XR Chest 2 Views MIRIAN DENNY MD; A [facility] [place] (Verified) [id number] ORIGINAL EXAMINATION: TWO XRAY VIEWS OF THE [...] 10/20/2024 12:10:04 PM Ordering Provider: JAMIE TAYLOR [facility]06-17-2025 Note* Exam Date Time Procedure Performing Provider Status 10/20/24 11:[address] Head or Brain w/o Contrast STEPHANIE RASHEED MD; Auth (Verified) [id number] ORIGINAL EXAMINATION: CT OF THE HEAD WITHOUT [...] 10/20/2024 11:52:19 AM Ordering Provider: JAMIE TAYLOR [facility]06-17-2025 Note* Exam Date Time Procedure Performing Provider Status 10/20/24 11:03 AM EKG [ED AOH] - CV JAMIE TAYLOR MD; Auth (Verified) ECG Final Report Sinus rhythm Probable left atrial enlargement Left bundle branch block SEE DICTATION Electronic Signature: JAMIE TAYLOR MD 10/20/2024 12:17:43 [facility]10-17-2024 Hospital Discharge instructions Patient Education 02/20/2024 [...] the ears or bruising around the eyes [phone] [employer]. [address] [place] [address], [place] [address]. All rights reserved. This information is not [...] in vomit, stools (black or red color) [phone] [employer]. [address] [place] [address], [place] [address]. All rights reserved. This information is not intended as a substitute for professional medical care. Always follow yourhealthcare professional's instructions. Follow Up Care 02/20/2024 14:39:26 With:RASHMI PRICE Address: [address] [place] [address] [phone] When:2-4 days With:ABAD SCHULZ MD, Orthopedic Address: [address] [place] [address] [address] [facility] [place], [place] [id number]- [phone] When:5 to 7 days [facility] 10-17-2024 Emergency department Discharge summary Discharge Instructions Thank you for allowing [facility] to assist you with your healthcare needs. [...] Up with RASHMI PRICE When:Within 2-4 days Where:[address] [place] [address]- [phone] Follow Up with ABAD SCHULZ MD, Orthopedic When:Within 5 to 7 days Where:[address] [place] [address] [address] [facility] [place] [address]- [phone] Allergies NKA Medications Please ask your primary [...] instructions Type 2 diabetes mellitus One touch reuben restrepo checks once a day Unchanged ferrous sulfate [...] the ears or bruising around the eyes [phone] [employer]. [address] [place] [address]. All rights reserved. This information is not [...] in vomit, stools (black or red color) [phone] [employer]. [address] [place] [address]. All rights reserved. This information is not intended as a substitute for professional medical care. Always follow yourhealthcare professional's instructions. Additional Information VACCINATE! IT SAVES LIVES! Members of the community who have not yet received the COVID-19 vaccine and would like to receive it can visit one of [facility] vaccine clinics. There are many vaccine clinic locations within the [facility]. For locations and available times, please visit www.[email or web address].[email or web address]/. It is important to note that some COVID mobile vaccine clinics are held outdoors and may be canceled in rainy or stormy conditions. To learn more about pediatric vaccinations (ages 5-11), we invite you to visit the [facility] webpage. https://www.[facility].org/pages/2093-Sovoz-Qvoatgyxjov-Qjkpamnhym-Bbrci-Jzd stions.htmlTo learn more about the COVID-19 vaccine, we invite you to visit the CDC website for a list of frequently asked questions. https://www.cdc.gov/coronavirus/2019-ncov/vaccines/faq.html [facility] Patient Portal Access Instructions: Stay connected with your healthcare team and access your personal medical information anytime with the [facility] Patient Portal. If you would like a full copy of your medical records please contact the [facility] Medical Records Department Saturday through Saturday between 8a.m. and 4:30p.m. Please follow the directions below to access the portal: 1.Access the email account you provided upon registration to the [facility].2.Look for an invitation email from [facility].3.Open the email and access the invitation link: Accept Invitation to [facility]4.Fill in the required small to create your account. Sign into [email or web address] with your username and password that you [...] you will allow to register on the [employer] Patient Portal for access to your information. You can also access the [employer] Patient Portal on the Gist darrel. Simply click on Health Records under [employer] and then click on the [facility] logo. HOW TO SAFELY DISPOSE OF PRESCRIPTION [...] Call your local pharmacy or go to [email or web address] to find one close to you.3.Make use of household items: Use cat litter or old coffee grounds to dispose medications if other options arenot available. Mix your drugs with these household products, seal them in an airtight container andthrow it into the garbage. Call [facility]: [phone] to be sure your drugs can be [...] aware that I should contact my doctor. Patient/Layer Out Plate Glass Signature: Date/Time: Relationship to Patient: Witness Name/Signature: Date/Time: [facility]10-17-2024 Note ORIGINAL HISTORY: Fall COMPARISON: No [...] Date: 02/20/2024 3:59:40 PM Ordering Provider: NELIDA [facility]10-17-2024 Note ORIGINAL HISTORY: Fall COMPARISON: No [...] Sign Date: 02/20/2024 3:38:46 PM Ordering Provider: [facility]10-17-2024 Note ORIGINAL HISTORY: Fall COMPARISON: No [...] Sign Date: 02/20/2024 3:29:22 PM [facility] App[facility]ments Appointment Date:05/16/2021 09:00:00 AM Scheduled Provider:RASHMI PRICE Location:[facility] Appointment Type:PC Wellness Medicare Future Scheduled Tests Radiology* XR Chest 2 Views (PA & Lateral) 04/08/21 [facility] Evaluation + Plan note Future Appointments Appointment Date:04/26/2021 09:00:00 AM Scheduled Provider:RASHMI PRICE Location:[facility] Appointment Type: OV Appointment Date:05/16/2021 09:00:00 AM Scheduled Provider:RASHMI PRICE Location:[facility] Appointment Type:PC Wellness Medicare Future Scheduled Tests Radiology* XR Chest 2 Views (PA & Lateral) 04/08/21 [facility] Evaluation + Plan note Future Appointments Appointment Date:05/01/2022 09:00:00 AM Scheduled Provider:RASHMI PRICE Location:[facility] Appointment Type:PC OV Future Scheduled Tests Laboratory* Prostate Specific Antigen 05/01/22 * Complete Blood Count 05/01/22 * Lipid Profile 05/01/22 * Complete Metabolic Panel 05/01/22 Radiology* XR Chest 2 Views (PA & Lateral) 04/08/21 [facility] Evaluation + Plan note Future Appointments Appointment Date:05/01/2022 09:00:00 AM Scheduled Provider:RASHMI PRICE Location:[facility] Appointment Type:PC OV [facility] Evaluation + Plan note Future Appointments Appointment Date:09/04/2022 08:00:00 AM Scheduled Provider:RASHMI PRICE Location:[facility] Appointment Type:PC OV Future Scheduled Tests Laboratory* Complete Blood Count 08/28/22 * Complete Metabolic Panel 08/28/22 [facility] Evaluation + Plan note Future Appointments Appointment Date:10/18/2022 09:00:00 AM Scheduled Provider:RASHMI PRICE Location:[facility] Appointment Type:PC OV [facility] Evaluation + Plan note Future Appointments Appointment Date:09/03/2023 12:15:00 PM Scheduled Provider:YASMANI COULTER DO Location:[facility] Appointment Type:PC Office Procedure Appointment Date:10/09/2023 09:00:00 AM Scheduled Provider:RASHMI PRICE Location:[facility] Appointment Type:PC OV Future Scheduled Tests Laboratory* Prostate Specific Antigen 10/09/23 * Complete Blood Count 10/09/23 * Complete Blood Count 09/20/22 * CPK 09/20/22 * Lipid Profile 10/09/23 * Albumin/Creatinine Ratio, Random Urine 08/30/23 * Complete Metabolic Panel 10/09/23 * Complete Metabolic Panel 09/20/22 [facility] Evaluation + Plan note Future Appointments Appointment Date:01/09/2024 09:30:00 AM Scheduled Provider:RASHMI PRICE Location:[facility] Appointment Type:PC OV Future Scheduled Tests Laboratory* Prostate Specific Antigen 10/09/23 * Complete Blood Count 10/09/23 * Lipid Profile 10/09/23 * Albumin/Creatinine Ratio, Random Urine 10/09/23 * Complete Metabolic Panel 10/09/23 [facility] Evaluation + Plan note Future Appointments Appointment Date:04/09/2024 10:30:00 AM Scheduled Provider:RASHMI PRICE Location:[facility] Appointment Type:PC Wellness Medicare Future Scheduled Tests Laboratory* Prostate Specific Antigen 10/09/23 * Complete Blood Count 10/09/23 * Lipid Profile 10/09/23 * Albumin/Creatinine Ratio, Random Urine 10/09/23 * Complete Metabolic Panel 10/09/23 [facility] Purple Harryaluation + Plan note Future Appointments Appointment Date:04/09/2024 10:30:00 AM Scheduled Provider:RASHMI PRICE Location:[facility] Appointment Type:PC Wellness Medicare Future Scheduled Tests Laboratory* Ferritin 03/23/24 * Iron Level 03/23/24 * Complete Blood Count 03/23/24 * Albumin/Creatinine Ratio, Random Urine 10/09/23 [facility] Purple Harryaluation + Plan note Future Appointments Appointment Date:04/09/2024 10:30:00 AM Scheduled Provider:RASHMI PRICE Location:[facility] Appointment Type:[facility] Medicare Future Scheduled Tests Laboratory* Albumin/Creatinine Ratio, Random Urine 10/09/23 [facility] Purple Harryaluation + Plan note Future Appointments Appointment Date:07/08/2024 10:00:00 AM Scheduled Provider:RASHMI PRICE Location:[facility] Appointment Type: OV Future Scheduled Tests Laboratory* Albumin/Creatinine Ratio, Random Urine 10/09/23 [facility] Purple Harryaluation + Plan note Future Appointments Appointment Date:05/01/2024 09:30:00 AM Scheduled Provider:RASHMI PRICE Location:[facility] Appointment Type:PC OV Appointment Date:07/08/2024 10:00:00 AM Scheduled Provider:RASHMI PRICE Location:[facility] Appointment Type:PC OV [facility] Evaluation + Plan note Future Appointments Appointment Date:07/08/2024 10:00:00 AM Scheduled Provider:RASHMI PRICE Location:[facility] Appointment Type:PC OV Future Scheduled Tests Laboratory* Ferritin 05/01/24 * Iron Level 05/01/24 * Complete Blood Count 05/01/24 [facility] Evaluation + Plan note Future Appointments Appointment Date:07/08/2024 10:00:00 AM Scheduled Provider:RASHMI PRICE Location:[facility] Appointment Type:PC OV [facility] Evaluation + Plan note Future Appointments Appointment Date:10/08/2024 10:30:00 AM Scheduled Provider:RASHMI PRICE Location:[facility] Appointment Type:PC OV [facility] Evaluation + Plan note Future Appointments Appointment Date:01/06/2025 10:30:00 AM Scheduled Provider:RASHMI PRICE Location:[facility] Appointment Type:PC OV [facility] Hospital course Narrative No data available for this section [facility] Hospital Discharge instructions No data available for this section [facility] Hospital Discharge instructionsAdditional Instructions Discharge to [facility] 11/13/2024, [facility] PT/OT/ST, FWW. FWW: Patient is unsafe to use a cane and requires a walker for ambulation in the home and the community.[facility] Work Phone: Progress note No data available for this section [facility] Summary Purpose Family History Relationship Condition Age at Onset Recorded Date/T russell daughter Diabetes mellitus Unknown mother Hypertension Unknown Hyperlipidemia Unknown Malignant neoplasm of lung Unknown father Hyperlipidemia Unknown brother Hyperlipidemia Unknown No Family History Records Found Advance Directives Advance Directive Response Recorded Date/ Time Do you have a Healthcare Power of Corporate Associate? 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 October 29, 2024 3:48pm Urinary retention October 29, 2024 3:48 pm Vascular dementia October 29, 2024 3:48 pm Chief Complaint Admit Date CARDIAC ARREST/RESP FAILURE October 29 025 3:48pm ALF LAB WORK November 23, 2024 4: 00am ALF LAB WORK December 10, 2024 5 :41pm Reason for Visit Admit Date Anxiety October 29, 2024 3:48 pm BPH (benign prostatic hyperplasia) October 29, 2024 3:48pm Debility October 29, 2024 3:48 pm Essential (primary) hypertension October 292024 3:48pm Glaucoma October 29, 2024 3:48 pm Hyperlipidemia, unspecified October 29 2 025 3:48pm Iron deficiency anemia October 29, 2024 3 :48pm 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 October 29, 2024 3:48pm Urinary retention October 29, 2024 3:48 pm Vascular dementia October 29, 2024 3:48 pm Acute delirium October 29, 2024 3:48 pm 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) October 29, 2024 3:48pm Acute respiratory failure with hypoxia J une 2024 3:48pm Cardiac arrest October 29, 2024 3:48 pm Hyponatremia October 29, 2024 3:48 pm Pneumonia October 29, 2024 3:48 pm Additional Source Comments Care Team (unrecognized sect ion and content) Care Team Personnel Name: RASHMI PRICE Position: P4 Advanced Practice Nurse Med Service: Active Provider Member Role: Primary Care Physician Address: Address: [address] [place] [id number] [place] [address] Name: Blessing Griffiths PT Position: P3 Scheduling - Tapper Supervisor Advanced Member Role: Other Name: BRENDEN FARMER MD Member Role: Check Writing Machine Operator Address: Address: [facility] [address] [place] [address]- Name: [facility] Member Role: Track Production Engineer Care Team Related Persons Name: JOEY ADAMSON Address: Home [address] [place] [address] [place], [place] [id number] Care Team Personnel Name: RASHMI PRICE Position: P4 Advanced Practice Nurse Member Role: Primary Care Physician Address: Address: [address] [place] [id number] [place] [address] Name: Blessing Griffiths PT Position: P3 Scheduling - Tapper Supervisor Advanced Member Role: Other Name: BRENDEN FARMER MD Member Role: Check Writing Machine Operator Address: Address: [facility] [address] [place], [place] [id number] [place] [address] Name: [facility] Member Role: Track Production Engineer Care Team Related Persons Name: JOEY ADAMSON Address: Home [address] [place], [place] [id number] Patient Care team informatio n (unrecognized section and content) Team Status: Active Member Role/Relationship Status Dates Rashmi Price MEDICAL STENOGRAPHER, MEDICAL STENOGRAPHER-C Primary Care Provider Active Team Status: Inactive Member Role/Relationship Status Dates Rashmi Price MEDICAL STENOGRAPHER, MEDICAL STENOGRAPHER-C Primary Care Provider Active Start: October 29, 2024 End: November 13, 2024 Dr. Juan Reed MD Admit Provider Active Star t: October 29, 2024 End: November 13, 2024 Dr. Juan Reed MD Attending Provider Active Start: October 29, 2024 End: November 13, 2024 Dr. Juan Reed MD Referring Provider Active Start: October 29, 2024 End: November 13, 2024 Team Status: Active Member Role/Relationship Status Dates Rashmi Price MEDICAL STENOGRAPHER, MEDICAL STENOGRAPHER-C Primary Care Provider Active Start: November 23, 2024 Dr. Yasmani BRO MD Attending Provider Active Start: November 23, 2024 Dr. Yasmani BRO MD Referring Provider Active Start: November 23, 2024 Team Status: Inactive Member Role/Relationship Status Dates Rashmi Price MEDICAL STENOGRAPHER, MEDICAL STENOGRAPHER-C Primary Care Provider Active Start: December 10, 2024 End: December 10, 2024 Dr. Yasmani BRO MD Attending Provider Active Start: December 10, 2024 End: December 10, 2024 Dr. Yasmani BRO MD Referring Provider Active Start: December 10, 2024 End: December 10, 2024 Team Status: Active Member Role/Relationship Status Dates Rashmi Price MEDICAL STENOGRAPHER, MEDICAL STENOGRAPHER-C Primary care physician Active Team Status: Inactive Member Role/Relationship Status Dates Rashmi Price MEDICAL STENOGRAPHER, MEDICAL STENOGRAPHER-C Primary care physician Active Start: October 29, 2024 End: November 13, 2024 Dr. Juan Reed MD Admitting physician Active Start: October 29, 2024 End: November 13, 2024 Dr. Juan Reed MD Attending physician Active Start: October 29, 2024 End: November 13, 2024 Dr. Juan Reed MD Referring Provider Active Start: October 29, 2024 End: November 13, 2024 Team Status: Active Member Role/Relationship Status Dates Rashmi Albert MEDICAL STENOGRAPHER, MEDICAL STENOGRAPHER-C Primary care physician Active Start: November 23, 2024 Dr. Yasmani BRO MD Attending physician Active Start: November 23, 2024 Dr. Yasmani BRO MD Referring Provider Active Start: November 23, 2024 Team Status: Inactive Member Role/Relationship Status Dates Rashmi Price MEDICAL STENOGRAPHER, MEDICAL STENOGRAPHER-C Primary care physician Active Start: December 10, 2024 End: December 10, 2024 Dr. Yasmani BRO MD Attending physician Active Start: December 10, 2024 End: December 10, 2024 Dr. Yasmani BRO MD Referring Provider Active Start: December 10, 2024 End: December 10, 2024 (unrecognized sect ion and content) No Status Records FoundNo Status Records FoundNo Status Records FoundNo Status Records Found INFORMATION SOURCE (unrecogn ized section and content) DATE CREATED AUTHOR 10/13/2023 [facility] ([place]) DATE CREATED AUTHOR AUTHOR'S ORGANIZ ATION 10/30/2024 [facility] DATE CREATED AUTHOR AUTHOR'S ORGANIZ ATION 12/02/2024 [facility] DATE CREATED AUTHOR AUTHOR'S ORGANIZ ATION 12/17/2024 [facility] FOR RECORDS PERTAINING TO PATIENTS WHO ARE [...] BE BASED ON THE PRIMARY CLINICAL RECORDS. [facility]. provides no warranty or guarantee of the accuracy or completeness of information in this document.
== END ==
LOC: OLS.BROOKB 05:00
PROVIDERS: PCP Nurse Practitioner Primary Care
DX: E11.9 Type 2 diabetes mellitus without complications (principal)
CPT/HCPCS: 36415; 83036

== ENCOUNTER → 2025-04-19 17:30 | Outpatient (REF) | payer MEDICARE, SELFPAY ==
[2025-04-20 07:34] LABS: Mucous, Urine 0 SEEN /hpf (<or=2+); Red Blood Cells-Urine 0 SEEN /hpf (0-5)
--- OUTSIDE RECORDS SUMMARY | 2025-04-20 07:36 | XMS RPT_ITS | CCD ---
Author Organization [facility] Inform ion Partnership [facility] Care Team Providers Care Grid Caster Name Role Phone ALBERT CLIMATE CHANGE ANALYSTIngridCLINICAL APPLICATION CONSULTANT, RASHMI Primary Care Physician Tunde PTMakenzie Unavailable Unavailable BALTES CLIMATE CHANGE ANALYST-CLINICAL APPLICATION CONSULTANT, RASHMI Attending Unavailabl e BALTES CLIMATE CHANGE ANALYST-CLINICAL APPLICATION CONSULTANT, RASHMI Primary Care Unavailabl e YASMANI COULTER DO Attending Unavailable BALTES CLIMATE CHANGE ANALYST-CLINICAL APPLICATION CONSULTANT, RASHMI Primary Care Unavailabl e BALTES CLIMATE CHANGE ANALYST-CLINICAL APPLICATION CONSULTANT, RASHMI Attending Unavailabl e BALTES CLIMATE CHANGE ANALYST-CLINICAL APPLICATION CONSULTANT, RASHMI Primary Care Unavailabl e Guadalupe Holm Unavailable Unavailable BALTES CLIMATE CHANGE ANALYST-CLINICAL APPLICATION CONSULTANT, RASHMI Primary Care Unavailabl e BALTES CLIMATE CHANGE ANALYST-CLINICAL APPLICATION CONSULTANT, RASHMI Attending Unavailabl e BALTES CLIMATE CHANGE ANALYST-CLINICAL APPLICATION CONSULTANT, RASHMI Primary Care Unavailabl e BALTES CLIMATE CHANGE ANALYST-CLINICAL APPLICATION CONSULTANT, ARSHMI Attending Unavailabl e BALTES CLIMATE CHANGE ANALYST-CLINICAL APPLICATION CONSULTANT, RASHMI Attending Unavailabl e BALTES CLIMATE CHANGE ANALYST-CLINICAL APPLICATION CONSULTANT, RASHMI Primary Care Unavailabl e BALTES CLIMATE CHANGE ANALYST-CLINICAL APPLICATION CONSULTANT, RASHMI Attending Unavailabl e BALTES CLIMATE CHANGE ANALYST-CLINICAL APPLICATION CONSULTANT, RASHMI Primary Care Unavailabl e BALTES CLIMATE CHANGE ANALYST-CLINICAL APPLICATION CONSULTANT, RASHMI Attending Unavailabl e BALTES CLIMATE CHANGE ANALYST-CLINICAL APPLICATION CONSULTANT, RASHMI Primary Care Unavailabl e BALTES CLIMATE CHANGE ANALYST-CLINICAL APPLICATION CONSULTANT, RASHMI Attending Unavailabl e BALTES CLIMATE CHANGE ANALYST-CLINICAL APPLICATION CONSULTANT, RASHMI Primary Care Unavailabl e BALTES CLIMATE CHANGE ANALYST-CLINICAL APPLICATION CONSULTANT, RASHMI Primary Care Unavailabl e BALTES CLIMATE CHANGE ANALYST-CLINICAL APPLICATION CONSULTANT, RASHMI Attending Unavailabl kirill HAHN MD, JUDIT Consulting Unavailable BALTES CLIMATE CHANGE ANALYST-CLINICAL APPLICATION CONSULTANT, RASHMI Primary Care Unavailabl JAMIE Morgan MD Attending Unavailable BALTES CLIMATE CHANGE ANALYST-CLINICAL APPLICATION CONSULTANT, RASHMI Primary Care Unavailabl e NELIDA GROVE DO Attending Unavailable BALTES CLIMATE CHANGE ANALYST-CLINICAL APPLICATION CONSULTANT, RASHMI Attending Unavailabl e BALTES CLIMATE CHANGE ANALYST-CLINICAL APPLICATION CONSULTANT, RASHMI Primary Care Unavailabl e BALTES CLIMATE CHANGE ANALYST-CLINICAL APPLICATION CONSULTANT, RASHMI Primary Care Unavailabl e JOEL CLIMATE CHANGE ANALYST-CLINICAL APPLICATION CONSULTANT, KATI Attending Unavailab le BALTES CLIMATE CHANGE ANALYST-CLINICAL APPLICATION CONSULTANT, RASHMI Attending Unavailabl e BALTES CLIMATE CHANGE ANALYST-CLINICAL APPLICATION CONSULTANT, RASHMI Primary Care Unavailabl e Baltes LOGISTICS OFFICER-C, Rashmi Primary Care Provider Derek TREVIZO, Dr. Juan Lacey Admit Provider Derek TREVIZO, Dr. Juan Lacey Attending Provider Derek TREVIZO, Dr. Juan Lacey Referring Provider KYLIE TREVIZO, KUN Consulting Unavailable JOHAN TREVIZO, ROSI Attending Unavailable JOVANI TREVIZO, JUDIT Admitting Unavailable BALTES CLIMATE CHANGE ANALYST-CLINICAL APPLICATION CONSULTANT, RASHMI Primary Care Unavailyessica HAHN MD, JUDIT Consulting Unavailable DAYNA TREVIZO, LILLY Bernal Consulting Unavailable Yfn TREVIZO, Dr. Gruber Attending Provider Unavail able Yfn TREVIZO, Dr. Gruber Referring Provider Unavail able Yasmani Braswell Referring Unavailable Albert LOGISTICS OFFICER, Rashmi Primary Care Unavailable Yasmani Braswell Attending Unavailable Yasmani Braswell Referring Unavailable Albert LOGISTICS OFFICER, Rashmi Primary Care Unavailable Yasmani Braswell Attending Unavailable Juan Reed Chi Admitting Unavailable Juan Reed Chi Attending Unavailable Juan Reed Chi Referring Unavailable Baltes LOGISTICS OFFICER, Rashmi Primary Care Unavailable Baltes LOGISTICS OFFICER-C, Rashmi Primary Care Physician Derek TREVIZO, Dr. [...] increase, # 200 tab(s), 3 Refill(s), Pharmacy: [facility]/pharmacy #[id number], Hypertension, 171, cm, 05/01/24 15:45:00 EST, Height, kg, 05/01/24 15:45:00 EST, Dosing Weight Start Date: 05/01/24 Stop Date: 06/05/25 Status: Ordered Quantity: 200.0 Unit: tab(s) Repeat number: 4 Indications: Essential (primary) hypertension; Start: 05-15-2023 amLODIPine 5 m g oral tablet Dose : 5 mg = 1 tab(s), Oral, qDay, # 90 tab(s), 3 Refill(s), Pharmacy: [facility]/pharmacy #[id number], Hypertension, 172, cm, 04/19/23 8:24:00 EST, Height, kg, 04/19/23 8:24:00 EST, Dosing Weight Start Date: 05/15/23 Status: Ordered Start: 01-30-2022 amLODIPine 5 m g oral tablet Dose : 5 mg = 1 tab(s), Oral, qDay, # 90 tab(s), 3 Refill(s), Pharmacy: [facility], Hypertension, 172.7, cm, 01/30/22 8:54:00 [...] 0 Refill(s), 04/18/21 8:21:00 EST, [facility] [address] 175.3, cm, 04/08/21 8:08:00 [...] qDay, # 90 tab(s), 3 Refill(s), Pharmacy: [facility], Atherosclerosis of aorta Type 2 [...] qDay, # 90 tab(s), 3 Refill(s), Pharmacy: [facility]/pharmacy #[id number], Hyperlipidemia Type 2 diabetes mellitus, [...] 0 Refill(s), 04/18/21 11:21:00 EST, [facility] [address] Cough, 172.7, cm, 04/11/21 [...] qDay, # 90 tab(s), 0 Refill(s), Pharmacy: [facility]/pharmacy #[id number], Iron deficiency anemia, 172.7, cm, 01/09/24 9:29:00 EDT, Height, kg, 01/09/24 9:29:00 EDT, Dosing Weight Start Date: 01/28/24 Stop Date: 04/27/24 Status: Ordered fluticasone propionate 0.05 mg/actuat metered dose nasal spray (19 sources) Corticosteroid Start: 10-29-2024 take 50 ug nasal route once daily Start: 05-15-2023 fluticasone 50 mcg/inh NASAL spray 50 mcg, Nasal, qDay, # 16 gram(s), 2 Refill(s), [id number], Seasonal allergies, 172, cm, 04/19/23 8:24:00 EST, Height, kg, 04/19/23 8:24:00 EST, Dosing Weight Start Date: 05/15/23 Status: Ordered Quantity: 16.0 Unit: g Repeat number: 3 Indications: Other seasonal allergic rhinitis; Start: 03-02-2019 fluticasone 50 mcg/inh NASAL spray 50 mcg, Nasal, qDay, # 16 gram(s), 2 Refill(s), Pharmacy: [address], Seasonal allergies Start Date: 03/02/19 Status: Ordered fluticasone 50 mcg/inh NASAL spray (2 sources) Start: 03-02-2019 fluticasone 50 mcg/inh NASAL spray 50 mcg, Nasal, qDay, # 16 gram(s), 2 Refill(s), Pharmacy: [address], Seasonal allergies Start Date: 03/02/19 Status: [...] qDay, # 90 tab(s), 3 Refill(s), Pharmacy: [facility]/pharmacy #[id number], Hypertension, 172, cm, 04/19/23 8:24:00 EST, Height, kg, 04/19/23 8:24:00 EST, Dosing Weight Start Date: 05/15/23 Status: Ordered Quantity: 90.0 Unit: tab(s) Repeat number: 4 Indications: Essential (primary) hypertension; Start: 09-04-2022 lisinopril 40 mg oral tablet Dose : 40 mg = 1 tab(s), Oral, qDay, # 90 tab(s), 3 Refill(s), Pharmacy: [facility], Hypertension, 172.7, cm, 09/04/22 7:49:00 EDT, Height, kg, 09/04/22 7:49:00 EDT, Dosing Weight Start Date: 09/04/22 Status: Ordered Start: 10-06-2021 lisinopril 40 mg oral tablet Dose : 40 mg = 1 tab(s), Oral, qDay, # 90 tab(s), 3 Refill(s), Pharmacy: [facility], Hypertension, 173.99, cm, 10/06/21 7:57:00 [...] qDay, # 360 tab(s), 3 Refill(s), Pharmacy: [facility]/pharmacy #[id number], Type 2 diabetes mellitus, 169.5, [...] qDay, # 360 tab(s), 3 Refill(s), Pharmacy: [facility]/pharmacy #[id number], Type 2 diabetes mellitus, 171, cm, 07/09/23 6:57:00 EST, Height, kg, 07/09/23 6:57:00 EST, Dosing Weight Start Date: 07/09/23 Stop Date: 07/03/24 Status: Ordered Start: 05-29-2022 End: 11-25-2022 metFORMIN 500 mg oral tablet EXTENDED RELEASE Dose : 2,000 mg = 4 tab(s), Oral, qDay, # 360 tab(s), 3 Refill(s), Pharmacy: [facility], Type 2 diabetes mellitus, 172.7, cm, 09/04/22 7:49:00 EDT, Height, kg, 09/04/22 7:49:00 EDT, Dosing Weight Start Date: 09/04/22 Status: Ordered Start: 01-30-2022 End: 04-30-2022 metFORMIN 500 mg oral tablet EXTENDED RELEASE Dose : 2,000 mg = 4 tab(s), Oral, qDay, # 360 tab(s), 0 Refill(s), Pharmacy: [facility], Type 2 diabetes mellitus, 172.7, cm, 01/30/22 8:54:00 EDT, Height, kg, 01/30/22 8:54:00 EDT, Dosing Weight Start Date: 01/30/22 Stop Date: 04/30/22 Status: Ordered Start: 04-06-2021 metFORMIN 500 mg oral tablet EXTENDED RELEASE Dose : 1,000 mg = 2 tab(s), Oral, qDay, # 180 tab(s), 3 Refill(s), Pharmacy: [facility], 172.7, cm, 01/06/20 10:26:00 EDT, [...] Daily, # 90 tab(s), 3 Refill(s), Pharmacy: [facility]/pharmacy #[id number], 172, cm, 04/19/23 8:24:00 EST, Height, kg, 04/19/23 8:24:00 EST, Dosing Weight Start Date: 05/15/23 Status: Ordered Start: 09-04-2022 pioglitazone 3 0 mg oral tablet Dose : 30 mg = 1 tab(s), Oral, Daily, # 90 tab(s), 3 Refill(s), Pharmacy: [facility], 172.7, cm, 09/04/22 7:49:00 EDT, Height, kg, 09/04/22 7:49:00 EDT, Dosing Weight Start Date: 09/04/22 Status: Ordered Start: 07-17-2022 pioglitazone 3 0 mg oral tablet Dose : 30 mg = 1 tab(s), Oral, Daily, # 90 tab(s), 0 Refill(s), Pharmacy: [facility], 173.99, cm, 07/17/22 7:31:00 EDT, Height Start Date: 07/17/22 Status: Ordered sertraline 25 mg oral tablet (9 sources) Serotonin Reuptake Inhibitor Start: 10-29-2024 take 1 tablet by mouth once daily Start: 10-08-2024 sertraline 25 mg oral tablet Dose : 25 mg = 1 tab(s), Oral, qDay, # 90 tab(s), 0 Refill(s), Pharmacy: [facility]/pharmacy #[id number], Anxiety, 170.2, cm, 10/08/24 10:32:00 EDT, [...] tab(s), 1 Refill(s), 10/09/22 7:57:00 EDT, Pharmacy: [facility], Onychomycosis, 173.99, cm, 07/17/22 7:31:00 [...] pain, # 100 gram(s), 0 Refill(s), Pharmacy: [facility]/pharmacy #[facility], Gel, 171, cm, 08/08/23 8:28:00 EDT, Height, [...] 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 Coulter at [place], Unclassified (1 source) Other toxic encephalopathy; Translations: [...] Profile (BMP )on 12-25-2024 BUN Normal 08-22 [facility] Comment on above: Result Comment: Canc elled via OM: Order cancelled - Patient discharged Performed By: #### L 501.080 #### [facility] [address] [place], [address] BUN/CRE Normal 10-20 [facility] Comment on above: Result Comment: Canc elled via OM: Order cancelled - Patient discharged Performed By: #### L 501.080 #### [facility] [address] [place], [address] Calcium Normal 7.6-11.0 [facility] Comment on above: Result Comment: Canc elled via OM: Order cancelled - Patient discharged Performed By: #### L 501.080 #### [facility] [address] [place], [address] CL Normal 98-108 [facility] Comment on above: Result Comment: Canc elled via OM: Order cancelled - Patient discharged Performed By: #### L 501.080 #### [facility] [address] [place], [address] CO2 Normal 21.0-32.0 [facility] Comment on above: Result Comment: Canc elled via OM: Order cancelled - Patient discharged Performed By: #### L 501.080 #### [facility] [address] [place], [address] CREAT,SERUM Normal 0.70-1.20 [facility] Comment on above: Result Comment: Canc elled via OM: Order cancelled - Patient discharged Performed By: #### L 501.080 #### [facility] [address] [place], [address] eGFR Normal >60 [facility] Comment on above: Result Comment: Canc elled via OM: Order cancelled - Patient discharged Performed By: #### L 501.080 #### [facility] [address] [place], [address] GAP Normal 5-15 [facility] Comment on above: Result Comment: Canc elled via OM: Order cancelled - Patient discharged Performed By: #### L 501.080 #### [facility] [address] [place], [address] GLU Normal 70-99 [facility] Comment on above: Result Comment: Canc elled via OM: Order cancelled - Patient discharged Performed By: #### L 501.080 #### [facility] [address] [place], [address] Potassium Normal 3.3-5.1 [facility] Comment on above: Result Comment: Canc elled via OM: Order cancelled - Patient discharged Performed By: #### L 501.080 #### [facility] [address] [place], [address] Basic Metabolic Profile (BMP) Normal 133-145 [facility] Comment on above: Result Comment: Canc elled via OM: Order cancelled - Patient discharged Performed By: #### L 501.080 #### [facility] [address] [place], [address] CBC W/Diff, Automatedon 08-2 -2024 Absolute Neut Normal 2.0-7.7 [facility] Comment on above: Result Comment: Canc elled via OM: Order cancelled - Patient discharged Performed By: #### L 501.080 #### [facility] [address] [place], [address] HCT Normal 40-54 [facility] Comment on above: Result Comment: Canc elled via OM: Order cancelled - Patient discharged Performed By: #### L 501.080 #### [facility] [address] [place], [address] HGB Normal 13.0-16.5 [facility] Comment on above: Result Comment: Canc elled via OM: Order cancelled - Patient discharged Performed By: #### L 501.080 #### [facility] [address] [place], [address] MCH Normal 27.0-32.0 [facility] Comment on above: Result Comment: Canc elled via OM: Order cancelled - Patient discharged Performed By: #### L 501.080 #### [facility] [address] [place], [address] MCHC Normal 32-36 [facility] Comment on above: Result Comment: Canc elled via OM: Order cancelled - Patient discharged Performed By: #### L 501.080 #### [facility] [address] [place], [address] MCV Normal 80-94 [facility] Comment on above: Result Comment: Canc elled via OM: Order cancelled - Patient discharged Performed By: #### L 501.080 #### [facility] [address] [place], [address] NEUT% Normal 47-70 [facility] Comment on above: Result Comment: Canc elled via OM: Order cancelled - Patient discharged Performed By: #### L 501.080 #### [facility] [address] [place], [address] PLT Normal 150-450 [facility] Comment on above: Result Comment: Canc elled via OM: Order cancelled - Patient discharged Performed By: #### L 501.080 #### [facility] [address] [place], [address] RBC Normal 4.6-6.2 [facility] Comment on above: Result Comment: Canc elled via OM: Order cancelled - Patient discharged Performed By: #### L 501.080 #### [facility] [address] [place], [address] RDW CV Normal 11.6-14.6 [facility] Comment on above: Result Comment: Canc elled via OM: Order cancelled - Patient discharged Performed By: #### L 501.080 #### [facility] [address] [place], [address] RDW SD Normal 35.1-43.9 [facility] Comment on above: Result Comment: Canc elled via OM: Order cancelled - Patient discharged Performed By: #### L 501.080 #### [facility] [address] [place], [address] WBC Normal 4.4-11.0 [facility] Comment on above: Result Comment: Canc elled via OM: Order cancelled - Patient discharged Performed By: #### L 501.080 #### [facility] [address] [place], [address] Basic Metabolic Profile (BMP )on 12-18-2024 BUN Normal 4-19 [facility] Comment on above: Result Comment: Canc elled via OM: Order cancelled - Patient discharged Performed By: #### L 501.080 #### [facility] [address] [place], [address] BUN/CRE Normal 10-20 [facility] Comment on above: Result Comment: Canc elled via OM: Order cancelled - Patient discharged Performed By: #### L 501.080 #### [facility] [address] [place], [address] Calcium Normal 7.6-11.0 [facility] Comment on above: Result Comment: Canc elled via OM: Order cancelled - Patient discharged Performed By: #### L 501.080 #### [facility] [address] [place], [address] CL Normal 98-108 [facility] Comment on above: Result Comment: Canc elled via OM: Order cancelled - Patient discharged Performed By: #### L 501.080 #### [facility] [address] [place], [address] CO2 Normal 21.0-32.0 [facility] Comment on above: Result Comment: Canc elled via OM: Order cancelled - Patient discharged Performed By: #### L 501.080 #### [facility] [address] [place], [address] CREAT,SERUM Normal 0.70-1.20 [facility] Comment on above: Result Comment: Canc elled via OM: Order cancelled - Patient discharged Performed By: #### L 501.080 #### [facility] [address] [place], [address] eGFR Normal >60 [facility] Comment on above: Result Comment: Canc elled via OM: Order cancelled - Patient discharged Performed By: #### L 501.080 #### [facility] [address] [place], [address] GAP Normal 5-15 [facility] Comment on above: Result Comment: Canc elled via OM: Order cancelled - Patient discharged Performed By: #### L 501.080 #### [facility] [address] [place], [address] GLU Normal 70-99 [facility] Comment on above: Result Comment: Canc elled via OM: Order cancelled - Patient discharged Performed By: #### L 501.080 #### [facility] [address] [place], [address] Potassium Normal 3.3-5.1 [facility] Comment on above: Result Comment: Canc elled via OM: Order cancelled - Patient discharged Performed By: #### L 501.080 #### [facility] [address] [place], [address] Basic Metabolic Profile (BMP) Normal 133-145 [facility] Comment on above: Result Comment: Canc elled via OM: Order cancelled - Patient discharged Performed By: #### L 501.080 #### [facility] [address] [place], [address] CBC W/Diff, Automatedon 08- Absolute Neut Normal 2.0-7.7 [facility] Comment on above: Result Comment: Canc elled via OM: Order cancelled - Patient discharged Performed By: #### L 501.080 #### [facility] [address] [place], [address] HCT Normal 40-54 [facility] Comment on above: Result Comment: Canc elled via OM: Order cancelled - Patient discharged Performed By: #### L 501.080 #### [facility] [address] [place], [address] HGB Normal 13.0-16.5 [facility] Comment on above: Result Comment: Canc elled via OM: Order cancelled - Patient discharged Performed By: #### L 501.080 #### [facility] [address] [place], [address] MCH Normal 27.0-32.0 [facility] Comment on above: Result Comment: Canc elled via OM: Order cancelled - Patient discharged Performed By: #### L 501.080 #### [facility] [address] [place], [address] MCHC Normal 32-36 [facility] Comment on above: Result Comment: Canc elled via OM: Order cancelled - Patient discharged Performed By: #### L 501.080 #### [facility] [address] [place], [address] MCV Normal 80-94 [facility] Comment on above: Result Comment: Canc elled via OM: Order cancelled - Patient discharged Performed By: #### L 501.080 #### [facility] [address] [place], [address] NEUT% Normal 47-70 [facility] Comment on above: Result Comment: Canc elled via OM: Order cancelled - Patient discharged Performed By: #### L 501.080 #### [facility] [address] [place], [address] PLT Normal 150-450 [facility] Comment on above: Result Comment: Canc elled via OM: Order cancelled - Patient discharged Performed By: #### L 501.080 #### [facility] [address] [place], [address] RBC Normal 4.6-6.2 [facility] Comment on above: Result Comment: Canc elled via OM: Order cancelled - Patient discharged Performed By: #### L 501.080 #### [facility] [address] [place], [address] RDW CV Normal 11.6-14.6 [facility] Comment on above: Result Comment: Canc elled via OM: Order cancelled - Patient discharged Performed By: #### L 501.080 #### [facility] [address] [place], [address] RDW SD Normal 35.1-43.9 [facility] Comment on above: Result Comment: Canc elled via OM: Order cancelled - Patient discharged Performed By: #### L 501.080 #### [facility] [address] [place], [address] WBC Normal 4.4-11.0 [facility] Comment on above: Result Comment: Canc elled via OM: Order cancelled - Patient discharged Performed By: #### L 501.080 #### [facility] [address] [place], [address] Urine Cultureon 12-14-2024 URC #2 Identification and sensitivity to follow. Urine Culture Pseudomonas aeruginosa Hessel Count >100,000 Staphylococcus aureus Staphylococcus aureus GPCENT Hessel Count 11,000-25,000 GPC Poss Enterococcus sp Ciprofloxacin [...] S Vancomycin Islt CARRILLO <=0.5 S Normal [facility] Comment on above: Performed By: #### L 501.080 #### [facility] [address] [place], [address] Basic Metabolic Profile (BMP )on 12-11-2024 BUN Normal 4-19 [facility] Comment on above: Result Comment: Canc elled via OM: Order cancelled - Patient discharged Performed By: #### L 501.080 #### [facility] [address] [place], [address] BUN/CRE Normal 10-20 [facility] Comment on above: Result Comment: Canc elled via OM: Order cancelled - Patient discharged Performed By: #### L 501.080 #### [facility] [address] [place], [address] Calcium Normal 7.6-11.0 [facility] Comment on above: Result Comment: Canc elled via OM: Order cancelled - Patient discharged Performed By: #### L 501.080 #### [facility] [address] [place], [address] CL Normal 98-108 [facility] Comment on above: Result Comment: Canc elled via OM: Order cancelled - Patient discharged Performed By: #### L 501.080 #### [facility] [address] [place], [address] CO2 Normal 21.0-32.0 [facility] Comment on above: Result Comment: Canc elled via OM: Order cancelled - Patient discharged Performed By: #### L 501.080 #### [facility] [address] [place], [address] CREAT,SERUM Normal 0.70-1.20 [facility] Comment on above: Result Comment: Canc elled via OM: Order cancelled - Patient discharged Performed By: #### L 501.080 #### [facility] [address] [place], [address] eGFR Normal >60 [facility] Comment on above: Result Comment: Canc elled via OM: Order cancelled - Patient discharged Performed By: #### L 501.080 #### [facility] [address] [place], [address] GAP Normal 5-15 [facility] Comment on above: Result Comment: Canc elled via OM: Order cancelled - Patient discharged Performed By: #### L 501.080 #### [facility] [address] [place], [address] GLU Normal 70-99 [facility] Comment on above: Result Comment: Canc elled via OM: Order cancelled - Patient discharged Performed By: #### L 501.080 #### [facility] [address] [place], [address] Potassium Normal 3.3-5.1 [facility] Comment on above: Result Comment: Canc elled via OM: Order cancelled - Patient discharged Performed By: #### L 501.080 #### [facility] [address] [place], [address] Basic Metabolic Profile (BMP) Normal 133-145 [facility] Comment on above: Result Comment: Canc elled via OM: Order cancelled - Patient discharged Performed By: #### L 501.080 #### [facility] [address] [place], [address] CBC W/Diff, Automatedon 08-0 8-2024 Absolute Neut Normal 2.0-7.7 [facility] Comment on above: Result Comment: Canc elled via OM: Order cancelled - Patient discharged Performed By: #### L 501.080 #### [facility] [address] [place], [address] HCT Normal 40-54 [facility] Comment on above: Result Comment: Canc elled via OM: Order cancelled - Patient discharged Performed By: #### L 501.080 #### [facility] [address] [place], [address] HGB Normal 13.0-16.5 [facility] Comment on above: Result Comment: Canc elled via OM: Order cancelled - Patient discharged Performed By: #### L 501.080 #### [facility] [address] [place], [address] MCH Normal 27.0-32.0 [facility] Comment on above: Result Comment: Canc elled via OM: Order cancelled - Patient discharged Performed By: #### L 501.080 #### [facility] [address] [place], [address] MCHC Normal 32-36 [facility] Comment on above: Result Comment: Canc elled via OM: Order cancelled - Patient discharged Performed By: #### L 501.080 #### [facility] [address] [place], [address] MCV Normal 80-94 [facility] Comment on above: Result Comment: Canc elled via OM: Order cancelled - Patient discharged Performed By: #### L 501.080 #### [facility] [address] [place], [address] NEUT% Normal 47-70 [facility] Comment on above: Result Comment: Canc elled via OM: Order cancelled - Patient discharged Performed By: #### L 501.080 #### [facility] [address] [place], [address] PLT Normal 150-450 [facility] Comment on above: Result Comment: Canc elled via OM: Order cancelled - Patient discharged Performed By: #### L 501.080 #### [facility] [address] [place], [address] RBC Normal 4.6-6.2 [facility] Comment on above: Result Comment: Canc elled via OM: Order cancelled - Patient discharged Performed By: #### L 501.080 #### [facility] [address] [place], [address] RDW CV Normal 11.6-14.6 [facility] Comment on above: Result Comment: Canc elled via OM: Order cancelled - Patient discharged Performed By: #### L 501.080 #### [facility] [address] [place], [address] RDW SD Normal 35.1-43.9 [facility] Comment on above: Result Comment: Canc elled via OM: Order cancelled - Patient discharged Performed By: #### L 501.080 #### [facility] [address] [place], [address] WBC Normal 4.4-11.0 [facility] Comment on above: Result Comment: Canc elled via OM: Order cancelled - Patient discharged Performed By: #### L 501.080 #### [facility] [address] [place], [address] Bilirubin Test strip Ql (U)O rdered By: Yasmani Coulter on 12-10-2024 Bilirubin Ql (U) Negative Negative [facility] Ketones Test strip Ql (U)Ord ered By: Yasmani Coulter on 12-10-2024 Ketones Ql (U) Negative Negative [facility] Microscopic analysis of urin e for red blood cells (RBC)Ordered By: Yasmani Coulter on 12-10-2024 Microscopic analysis of urine for red blood cells (RBC) > 100 SEEN /hpf 0-5 [facility] Mucus LM Ql (Urine sed)Order ed By: Yasmani Coulter on 12-10-2024 Mucus Ql (Urine sed) 0 SEEN /hpf [facility] Nitrite Test strip Ql (U)Ord ered By: Yasmani Coulter on 12-10-2024 Nitrite Ql (U) Positive High Negative [facility] Protein Test strip Ql (U)Ord ered By: Yasmani Coulter on 12-10-2024 Protein Ql (U) 500 mg/dl High Negative [facility] Squamous epithelial cells de tection in urine sediment by light microscopyOrdered By: Yasmani Coulter on 12-10-2024 Epithelial cells.squamous LM Ql (Urine sed) 0 SEEN /hpf 0-5 [facility] Urinalysis, Completeon 12-10 BACTERIA 2+ /hpf Normal None Seen [facility] Comment on above: Order Comment: COLOR OF URINE MAY AFFECT DIPSTICK RESULTS.CATHETER SPECIMEN Performed By: #### L 501.080 #### [facility] [address] [facility] [address] RBC > 100 SEEN Normal 0- [facility] Comment on above: Order Comment: COLOR OF URINE MAY AFFECT DIPSTICK RESULTS.CATHETER SPECIMEN Performed By: #### L 501.080 #### [facility] [address] [facility] [address] WBC 50-100 SEEN Normal 0-5 [facility] Comment on above: Order Comment: COLOR OF URINE MAY AFFECT DIPSTICK RESULTS.CATHETER SPECIMEN Performed By: #### L 501.080 #### [facility] [address] [facility] [address] EPI,SQUAMOUS 0 SEEN Normal 0-[address] [place] [address] Comment on above: Order Comment: COLOR OF URINE MAY AFFECT DIPSTICK RESULTS.CATHETER SPECIMEN Performed By: #### L 501.080 #### [facility] [address] [facility] [id number] Mucus Ql (Urine sed) [address] [facility] Comment on above: Order Comment: COLOR OF URINE MAY AFFECT DIPSTICK RESULTS.CATHETER SPECIMEN Performed By: #### L 501.080 #### [facility] [address] [place], [place], [id number] Urine clarityOrdered By: Richy Coulter on 12-10-2024 Clarity (U) Turbid Clear [facility] Urine color determinationOrd ered By: Yasmani Coulter on 12-10-2024 Color (U) Marybeth Yellow [facility] Urine cultureOrdered By: Richy Coulter on 12-10-2024 Bacteria identified Cx Nom (U) Pseudomonas aeruginosa Abnormal [facility] Bacteria identified Cx Nom (U) Staphylococcus aureus Abnormal [facility] Bacteria identified Cx Nom (U) Enterococcus faecalis Abnormal [facility] Urine glucose detectionOrder ed By: Yasmani Coulter on 12-10-2024 Glucose Ql (U) Normal mg/dl Normal [facility] Urine leukocyte esterase det ection by dipstickOrdered By: Yasmani Coulter on 12-10-2024 Leukocyte esterase Test strip Ql (U) 500 /ul High Negative [facility] Urine pHOrdered By: Yasmani scherer on 12-10-2024 pH (U) 7.0 [pH] 5.0 - 8.0 [facility] Urine sediment bacteria coun t by microscopy (number/high power field)Ordered By: Yasmani Coulter on 12-10-2024 Bacteria LM.HPF (Urine sed) [#/Area] 2 /[HPF] None Seen [facility] Urine specific gravity measu rementOrdered By: Yasmani Coulter on 12-10-2024 Specific gravity (U) [Rel density] 1.015 1.002-1.030 [facility] Urine urobilinogen measureme ntOrdered By: Yasmani Coulter on 12-10-2024 Urobilinogen Ql (U) Normal mg/dl Normal [facility] White blood cell countOrdere d By: Yasmani Coulter on 12-10-2024 White blood cell count 50-100 SEEN /hpf 0-5 [facility] Basic Metabolic Profile (BMP )on 12-04-2024 BUN Normal 4-19 [facility] Comment on above: Result Comment: Canc elled via OM: Order cancelled - Patient discharged Performed By: #### L 400.0001, #### [facility] [address] [place], [address] BUN/CRE Normal 10-20 [facility] Comment on above: Result Comment: Canc elled via OM: Order cancelled - Patient discharged Performed By: #### L 400.0001, #### [facility] [address] [place], [address] Calcium Normal 7.6-11.0 [facility] Comment on above: Result Comment: Canc elled via OM: Order cancelled - Patient discharged Performed By: #### L 400.0001, #### [facility] [address] [place], [address] CL Normal 98-108 [facility] Comment on above: Result Comment: Canc elled via OM: Order cancelled - Patient discharged Performed By: #### L 400.0001, #### [facility] [address] [place], [address] CO2 Normal 21.0-32.0 [facility] Comment on above: Result Comment: Canc elled via OM: Order cancelled - Patient discharged Performed By: #### L 400.0001, #### [facility] [address] [place], [address] CREAT,SERUM Normal 0.70-1.20 [facility] Comment on above: Result Comment: Canc elled via OM: Order cancelled - Patient discharged Performed By: #### L 400.0001, #### [facility] [address] [place], [address] eGFR Normal >60 [facility] Comment on above: Result Comment: Canc elled via OM: Order cancelled - Patient discharged Performed By: #### L 400.0001, M100.2200 #### [facility] [address] [place], [address] GAP Normal 5-15 [facility] Comment on above: Result Comment: Canc elled via OM: Order cancelled - Patient discharged Performed By: #### L 400.0001, M100.2200 #### [facility] [address] [place], [address] GLU Normal 70-99 [facility] Comment on above: Result Comment: Canc elled via OM: Order cancelled - Patient discharged Performed By: #### L 400.0001, M100.0 #### [facility] [address] [place], [address] Potassium Normal 3.3-5.1 [facility] Comment on above: Result Comment: Canc elled via OM: Order cancelled - Patient discharged Performed By: #### L 400.0001, M100.0 #### [facility] [address] [place], [address] Basic Metabolic Profile (BMP) Normal 133-145 [facility] Comment on above: Result Comment: Canc elled via OM: Order cancelled - Patient discharged Performed By: #### L 400.0001, M100.2200 #### [facility] [address] [place], [address] CBC W/Diff, Automatedon 08-0 -2024 Absolute Neut Normal 2.0-7.7 [facility] Comment on above: Result Comment: Canc elled via OM: Order cancelled - Patient discharged Performed By: #### L 400.0001, M100.2200 #### [facility] [address] [place], [address] HCT Normal 40-54 [facility] Comment on above: Result Comment: Canc elled via OM: Order cancelled - Patient discharged Performed By: #### L 400.0001, M100.0 #### [facility] [address] [place], [address] HGB Normal 13.0-16.5 [facility] Comment on above: Result Comment: Canc elled via OM: Order cancelled - Patient discharged Performed By: #### L 400.0001, M100.2200 #### [facility] [address] [place], [address] MCH Normal 27.0-32.0 [facility] Comment on above: Result Comment: Canc elled via OM: Order cancelled - Patient discharged Performed By: #### L 400.0001, M1.0 #### [facility] [address] [place], [address] MCHC Normal 32-36 [facility] Comment on above: Result Comment: Canc elled via OM: Order cancelled - Patient discharged Performed By: #### L 400.0001, M1.0 #### [facility] [address] [place], [address] MCV Normal 80-94 [facility] Comment on above: Result Comment: Canc elled via OM: Order cancelled - Patient discharged Performed By: #### L 400.0001, M100.0 #### [facility] [address] [place], [address] NEUT% Normal 47-70 [facility] Comment on above: Result Comment: Canc elled via OM: Order cancelled - Patient discharged Performed By: #### L 400.0001, M100.0 #### [facility] [address] [place], [address] PLT Normal 150-450 [facility] Comment on above: Result Comment: Canc elled via OM: Order cancelled - Patient discharged Performed By: #### L 400.0001, M100.2200 #### [facility] [address] [place], [address] RBC Normal 4.6-6.2 [facility] Comment on above: Result Comment: Canc elled via OM: Order cancelled - Patient discharged Performed By: #### L 400.0001, M100.2200 #### [facility] [address] [place], [address] RDW CV Normal 11.6-14.6 [facility] Comment on above: Result Comment: Canc elled via OM: Order cancelled - Patient discharged Performed By: #### L 400.0001, M100.2200 #### [facility] [address] [place], [address] RDW SD Normal 35.1-43.9 [facility] Comment on above: Result Comment: Canc elled via OM: Order cancelled - Patient discharged Performed By: #### L 400.0001, M100.2200 #### [facility] [address] [place], [address] WBC Normal 4.4-11.0 [facility] Comment on above: Result Comment: Canc elled via OM: Order cancelled - Patient discharged Performed By: #### L 400.0001, M100.2200 #### [facility] [address] [place], [address] Basic Metabolic Profile (BMP )on 11-27-2024 BUN Normal 4-19 [facility] Comment on above: Result Comment: Canc elled via OM: Order cancelled - Patient discharged Performed By: #### L 501.080 #### [facility] [address] [place], [address] BUN/CRE Normal 10-20 [facility] Comment on above: Result Comment: Canc elled via OM: Order cancelled - Patient discharged Performed By: #### L 501.080 #### [facility] [address] [place], [address] Calcium Normal 7.6-11.0 [facility] Comment on above: Result Comment: Canc elled via OM: Order cancelled - Patient discharged Performed By: #### L 501.080 #### [facility] [address] [place], [address] CL Normal 98-108 [facility] Comment on above: Result Comment: Canc elled via OM: Order cancelled - Patient discharged Performed By: #### L 501.080 #### [facility] [address] [place], [address] CO2 Normal 21.0-32.0 [facility] Comment on above: Result Comment: Canc elled via OM: Order cancelled - Patient discharged Performed By: #### L 501.080 #### [facility] [address] [place], [address] CREAT,SERUM Normal 0.70-1.20 [facility] Comment on above: Result Comment: Canc elled via OM: Order cancelled - Patient discharged Performed By: #### L 501.080 #### [facility] [address] [place], [address] eGFR Normal >60 [facility] Comment on above: Result Comment: Canc elled via OM: Order cancelled - Patient discharged Performed By: #### L 501.080 #### [facility] [address] [place], [address] GAP Normal 5-15 [facility] Comment on above: Result Comment: Canc elled via OM: Order cancelled - Patient discharged Performed By: #### L 501.080 #### [facility] [address] [place], [address] GLU Normal 70-99 [facility] Comment on above: Result Comment: Canc elled via OM: Order cancelled - Patient discharged Performed By: #### L 501.080 #### [facility] [address] [place], [address] Potassium Normal 3.3-5.1 [facility] Comment on above: Result Comment: Canc elled via OM: Order cancelled - Patient discharged Performed By: #### L 501.080 #### [facility] [address] [place], [address] Basic Metabolic Profile (BMP) Normal 133-145 [facility] Comment on above: Result Comment: Canc elled via OM: Order cancelled - Patient discharged Performed By: #### L 501.080 #### [facility] [address] [place], [address] CBC W/Diff, Automatedon 07-2 -2024 Absolute Neut Normal 2.0-7.7 [facility] Comment on above: Result Comment: Canc elled via OM: Order cancelled - Patient discharged Performed By: #### L 501.080 #### [facility] [address] [place], [address] HCT Normal 40-54 [facility] Comment on above: Result Comment: Canc elled via OM: Order cancelled - Patient discharged Performed By: #### L 501.080 #### [facility] [address] [place], [address] HGB Normal 13.0-16.5 [facility] Comment on above: Result Comment: Canc elled via OM: Order cancelled - Patient discharged Performed By: #### L 501.080 #### [facility] [address] [place], [address] MCH Normal 27.0-32.0 [facility] Comment on above: Result Comment: Canc elled via OM: Order cancelled - Patient discharged Performed By: #### L 501.080 #### [facility] [address] [place], [address] MCHC Normal 32-36 [facility] Comment on above: Result Comment: Canc elled via OM: Order cancelled - Patient discharged Performed By: #### L 501.080 #### [facility] [address] [place], [address] MCV Normal 80-94 [facility] Comment on above: Result Comment: Canc elled via OM: Order cancelled - Patient discharged Performed By: #### L 501.080 #### [facility] [address] [place], [address] NEUT% Normal 47-70 [facility] Comment on above: Result Comment: Canc elled via OM: Order cancelled - Patient discharged Performed By: #### L 501.080 #### [facility] [address] [place], [address] PLT Normal 150-450 [facility] Comment on above: Result Comment: Canc elled via OM: Order cancelled - Patient discharged Performed By: #### L 501.080 #### [facility] [address] [place], [address] RBC Normal 4.6-6.2 [facility] Comment on above: Result Comment: Canc elled via OM: Order cancelled - Patient discharged Performed By: #### L 501.080 #### [facility] [address] [place], [address] RDW CV Normal 11.6-14.6 [facility] Comment on above: Result Comment: Canc elled via OM: Order cancelled - Patient discharged Performed By: #### L 501.080 #### [facility] [address] [place], [address] RDW SD Normal 35.1-43.9 [facility] Comment on above: Result Comment: Canc elled via OM: Order cancelled - Patient discharged Performed By: #### L 501.080 #### [facility] [address] [place], [place], [address] WBC Normal 4.4-11.0 [facility] Comment on above: Result Comment: Canc elled via OM: Order cancelled - Patient discharged Performed By: #### L 501.080 #### [facility] [address] [place], [place], [id number] Anion gap in Serum or Plasma Ordered By: Yasmani Coulter on 11-23-2024 Anion gap [Moles/Vol] 11 mmol/L - [facility] BUN/creatinine ratioOrdered By: Yasmani Coulter on 11-23-2024 Urea nitrogen/Creatinine [Mass ratio] 15.4 mg/mg - [facility] Bilirubin, totalOrdered By: Yasmani Coulter on 11-23-2024 Bilirubin [Mass/Vol] 0.42 mg/dL 0.00-1.30 [facility] Calculated very low density lipoprotein (VLDL) cholesterol measurementOrdered By: Yasmani Coulter on 11-23-2024 Calculated very low density lipoprotein (VLDL) cholesterol measurement 15 mg/dL [facility] Carbon dioxide, total [Moles /volume] in Central venous bloodOrdered By: Yasmani Coulter on 11-23-2024 CO2 [Moles/Vol] 25.0 mmol/L 21.0-32.0 [facility] Chloride assayOrdered By: Ramon Coulter on 11-23-2024 Chloride [Moles/Vol] 97 mmol/L Low 98-108 [facility] Glomerular filtration rate ( GFR) estimation/1.73 sq m using serum, plasma, or whole bOrdered By: Yasmani Coulter on 11-23-2024 GFR/1.73 sq M.predicted among non-blacks MDRD (S/P/Bld) [Vol rate/Area] 94 mL/min/{1.73_m2} >60 [facility] Comment on above: mL/min/1.73m2 CKD-EP I Creatinine Equation (2020) Hemoglobin A1c percentageOrd ered By: Yasmani Coulter on 11-23-2024 HbA1c (Bld) [Mass fraction] 6.8 % High <5.7 [facility] Comment on above: Normal < 5.7 % Predi abetic 5.7 - 6.4 % Diabetic >or= 6.5 % Please note range changes. LDL calc ser/plasOrdered By: Yasmani Coulter on 11-23-2024 Cholesterol in LDL [Mass/Vol] 43 mg/dL [facility] Comment on above: Cisklicbjc=881-043 m g/dL & Higher Jgsv=108 mg/dL or greater Laboratory - Chemistry and C hemistry - challengeOrdered By: Yasmani Coulter on 11-23-2024 AST [Catalytic activity/Vol] 14 U/L <38 [facility] Potassium measurement (mass/ volume)Ordered By: Yasmani Coulter on 11-23-2024 Potassium (Unsp spec) [Mass/Vol] 3.9 mmol/L 3.3-5.1 [facility] Screening total cholesterol/ high density lipoprotein (HDL) cholesterol ratioOrdered By: Yasmani Coulter on 11-23-2024 Cholesterol.total/Cherelle sterol in HDL [Mass ratio] 1.94 {ratio} [facility] Serum creatinine measurement (mass/volume)Ordered By: Yasmani Coulter on 11-23-2024 Creatinine [Mass/Vol] 0.62 mg/dL Low 0.70-1.20 [facility] Serum globulin measurementOr dered By: Yasmani Coulter on 11-23-2024 Globulin (S) [Mass/Vol] 2.2 g/dL 2.2-4.2 [facility] Serum glucose measurement (m ass/volume)Ordered By: Yasmani Coulter on 11-23-2024 Glucose [Mass/Vol] 124 mg/dL High 70-99 [facility] Serum or plasma alanine ho otransferase (ALT) measurementOrdered By: Yasmani Coulter on 11-23-2024 ALT [Catalytic activity/Vol] 9 U/L <47 [facility] Serum or plasma albumin les urement (mass/volume)Ordered By: Yasmani Coulter on 11-23-2024 Albumin [Mass/Vol] 4.0 g/dL 3.4-4.8 [facility] Serum or plasma albumin/glob ulin mass ratioOrdered By: Yasmani Coulter on 11-23-2024 Albumin/Globulin [Mass ratio] 1.8 {ratio} 0.9-2.4 [facility] Serum or plasma alkaline radha sphatase measurementOrdered By: Yasmani Coulter on 11-23-2024 ALP [Catalytic activity/Vol] 86 U/L 40-129 [facility] Serum or plasma calcium les urement (mass/volume)Ordered By: Yasmani Coulter on 11-23-2024 Calcium [Mass/Vol] 9.6 mg/dL 7.6-11.0 [facility] Serum or plasma cholesterol in HDL measurement (mass/volume)Ordered By: Yasmani Coulter on 11-23-2024 Cholesterol in HDL [Mass/Vol] 61 mg/dL >40 [facility] Comment on above: National Cholesterol Education Program (NCEP) guidelines:<40 mg/dL: Low HDL-cholesterol (major risk factor for CHD)>= 60 mg/dL: High HDL-cholesterol (negative risk factor for CHD)HDL-cholesterol is affected by a number of factors, e.g. smoking, exercise, hormones, sex and age. Serum or plasma cholesterol measurement (mass/volume)Ordered By: Yasmani Coulter on 11-23-2024 Cholesterol [Mass/Vol] 119 mg/dL <201 [facility] Comment on above: Cholesterol level, D esirable <200 mg/dLBorderline high cholesterol 200-239 mg/dLHigh cholesterol >=240 mg/dLRecommendations of the NCEP Adult Treatment Panel for the following risk-cutoff thresholds for the [place] population. Serum or plasma urea nitroge n measurement (mass/volume)Ordered By: Yasmani Coulter on 11-23-2024 Urea nitrogen [Mass/Vol] 9 mg/dL 4-19 [facility] Sodium levelOrdered By: Thai Coulter on 11-23-2024 Sodium [Moles/Vol] 133 mmol/L 133-145 [facility] TSH DL <= 0.005 mIU/L QnOrde red By: Yasmani Coulter on 11-23-2024 TSH Qn 3.380 uIU/mL 0.300-4.200 [facility] ThyroxineOrdered By: Yasmani braun on 11-23-2024 T4 [Mass/Vol] 7.4 ug/dL 4.5-12.1 [facility] Total proteinOrdered By: Richy Coulter on 11-23-2024 Protein [Mass/Vol] 6.2 g/dL 5.9-8.4 [facility] Triglycerides measurementOrd ered By: Yasmani Coulter on 11-23-2024 Triglyceride [Mass/Vol] 73 mg/dL <199 [facility] Comment on above: The drugs N-Acetylcy steine and Metamizole may falsely depress this assay. Normal range: <150 mg/dLBorderline High: 150-199 mg/dLHigh: 200-499 mg/dLVery High: >500 mg/dL Basic Metabolic Profile (BMP )on 11-20-2024 BUN Normal 4-19 [facility] Comment on above: Result Comment: Canc elled via OM: Order cancelled - Patient discharged Performed By: #### L 501.080 #### [facility] [address] [place], [address] BUN/CRE Normal 10-20 [facility] Comment on above: Result Comment: Canc elled via OM: Order cancelled - Patient discharged Performed By: #### L 501.080 #### [facility] [address] [place], [address] Calcium Normal 7.6-11.0 [facility] Comment on above: Result Comment: Canc elled via OM: Order cancelled - Patient discharged Performed By: #### L 501.080 #### [facility] [address] [place], [address] CL Normal 98-108 [facility] Comment on above: Result Comment: Canc elled via OM: Order cancelled - Patient discharged Performed By: #### L 501.080 #### [facility] [address] [place], [address] CO2 Normal 21.0-32.0 [facility] Comment on above: Result Comment: Canc elled via OM: Order cancelled - Patient discharged Performed By: #### L 501.080 #### [facility] [address] [place], [address] CREAT,SERUM Normal 0.70-1.20 [facility] Comment on above: Result Comment: Canc elled via OM: Order cancelled - Patient discharged Performed By: #### L 501.080 #### [facility] [address] [place], [address] eGFR Normal >60 [facility] Comment on above: Result Comment: Canc elled via OM: Order cancelled - Patient discharged Performed By: #### L 501.080 #### [facility] [address] [place], [address] GAP Normal 5-15 [facility] Comment on above: Result Comment: Canc elled via OM: Order cancelled - Patient discharged Performed By: #### L 501.080 #### [facility] [address] [place], [address] GLU Normal 70-99 [facility] Comment on above: Result Comment: Canc elled via OM: Order cancelled - Patient discharged Performed By: #### L 501.080 #### [facility] [address] [place], [address] Potassium Normal 3.3-5.1 [facility] Comment on above: Result Comment: Canc elled via OM: Order cancelled - Patient discharged Performed By: #### L 501.080 #### [facility] [address] [place], [address] Basic Metabolic Profile (BMP) Normal 133-145 [facility] Comment on above: Result Comment: Canc elled via OM: Order cancelled - Patient discharged Performed By: #### L 501.080 #### [facility] [address] [place], [address] CBC W/Diff, Automatedon - Absolute Neut Normal 2.0-7.7 [facility] Comment on above: Result Comment: Canc elled via OM: Order cancelled - Patient discharged Performed By: #### L 501.080 #### [facility] [address] [place], [address] HCT Normal 40-54 [facility] Comment on above: Result Comment: Canc elled via OM: Order cancelled - Patient discharged Performed By: #### L 501.080 #### [facility] [address] [place], [address] HGB Normal 13.0-16.5 [facility] Comment on above: Result Comment: Canc elled via OM: Order cancelled - Patient discharged Performed By: #### L 501.080 #### [facility] [address] [place], [address] MCH Normal 27.0-32.0 [facility] Comment on above: Result Comment: Canc elled via OM: Order cancelled - Patient discharged Performed By: #### L 501.080 #### [facility] [address] [place], [address] MCHC Normal 32-36 [facility] Comment on above: Result Comment: Canc elled via OM: Order cancelled - Patient discharged Performed By: #### L 501.080 #### [facility] [address] [place], [address] MCV Normal 80-94 [facility] Comment on above: Result Comment: Canc elled via OM: Order cancelled - Patient discharged Performed By: #### L 501.080 #### [facility] [address] [place], [address] NEUT% Normal 47-70 [facility] Comment on above: Result Comment: Canc elled via OM: Order cancelled - Patient discharged Performed By: #### L 501.080 #### [facility] [address] [place], [address] PLT Normal 150-450 [facility] Comment on above: Result Comment: Canc elled via OM: Order cancelled - Patient discharged Performed By: #### L 501.080 #### [facility] [address] [place], [address] RBC Normal 4.6-6.2 [facility] Comment on above: Result Comment: Canc elled via OM: Order cancelled - Patient discharged Performed By: #### L 501.080 #### [facility] [address] [place], [address] RDW CV Normal 11.6-14.6 [facility] Comment on above: Result Comment: Canc elled via OM: Order cancelled - Patient discharged Performed By: #### L 501.080 #### [facility] [address] [place], [address] RDW SD Normal 35.1-43.9 [facility] Comment on above: Result Comment: Canc elled via OM: Order cancelled - Patient discharged Performed By: #### L 501.080 #### [facility] [address] [place], [address] WBC Normal 4.4-11.0 [facility] Comment on above: Result Comment: Canc elled via OM: Order cancelled - Patient discharged Performed By: #### L 501.080 #### [facility] [address] [place], [address] Absolute lymphocyte countOrd ered By: Juan Reed on 11-13-2024 Lymphocytes Auto (Unsp spec) [#/Vol] 1.50 10*3/uL 0.83-4.51 [facility] Absolute neutrophil countOrd ered By: Juan Reed on 11-13-2024 Neutrophils (Bld) [#/Vol] 2.5 10*3/uL 2.0-7.7 [facility] Anion gap in Serum or Plasma Ordered By: Juan Reed on 11-13-2024 Anion gap [Moles/Vol] 8 mmol/L 5-15 [facility] Automated lymphocyte count a s percentage of total leukocytesOrdered By: Juan Reed on 11-13-2024 Lymphocytes/100 WBC Auto (Unsp spec) 31.3 % 19-41 [facility] BUN/creatinine ratioOrdered By: Juan Derek on 11-13-2024 Urea nitrogen/Creatinine [Mass ratio] 21.8 mg/mg High 10-20 [facility] Basic Metabolic Profile (BMP )on 11-13-2024 BUN/CRE 21.8 RATIO High - [facility] Comment on above: Performed By: #### L 501.080 #### [facility] [address] [place], [address] Calcium [Mass/Vol] 9.2 mg/dL Normal 7.6-11.0 [facility] Comment on above: Performed By: #### L 501.080 #### [facility] [address] [place], [address] Chloride [Moles/Vol] 94 mmol/L Low 98-108 [facility] Comment on above: Performed By: #### L 501.080 #### [facility] [address] [place], [address] CO2 [Moles/Vol] 27.1 mmol/L Normal 21.0-32.0 [facility] Comment on above: Performed By: #### L 501.080 #### [facility] [address] [place], [address] Creatinine [Mass/Vol] 0.65 mg/dL Low 0.70-1.20 [facility] Comment on above: Performed By: #### L 501.080 #### [facility] [address] [place], [address] ECRCL 63.12 ml/min Normal 50-250 [facility] Comment on above: Performed By: #### L 501.080 #### [facility] [address] [place], [address] GAP 8 Normal 5-15 [facility] Comment on above: Performed By: #### L 501.080 #### [facility] [address] [place], [address] GFR/1.73 sq M.predicted among non-blacks MDRD (S/P/Bld) [Vol rate/Area] 92 mL/min/{1.73_m2} Normal >60 [facility] Comment on above: Result Comment: mL/m in/1.73m2 CKD-EPI Creatinine Equation (2020) Performed By: #### L 501.080 #### [facility] [address] [place], [address] Glucose [Mass/Vol] 122 mg/dL High 70-99 [facility] Comment on above: Performed By: #### L 501.080 #### [facility] [address] [place], [address] Potassium [Moles/Vol] 3.9 mmol/L Normal 3.3-5.1 [facility] Comment on above: Performed By: #### L 501.080 #### [facility] [address] [place], [address] Sodium [Moles/Vol] 128 mmol/L Low 133-145 [facility] Comment on above: Performed By: #### L 501.080 #### [facility] [address] [place], [address] Urea nitrogen [Mass/Vol] 14 mg/dL Normal 4-19 [facility] Comment on above: Performed By: #### L 501.080 #### [facility] [address] [place], [address] Basophil percentageOrdered B y: Juan Reed on 11-13-2024 Basophils/100 WBC (Bld) 0.8 % 0-1 [facility] Bedside Glucoseon 11-13-2024 FINGERSTICK GLU 137 mg/dL High 74-106 [facility] Comment on above: Result Comment: PERCY READ OF PATIENT CARE PER NURSING PROTOCOL Performed By: #### L 501.080 #### [facility] [address] [place], [address] CBC W/Diff, Automatedon 07-05 06-2024 Absolute Lymph 1.50 X10 3/uL Normal 0.83-4.51 [facility] Comment on above: Performed By: #### L 501.080 #### [facility] [address] [place], [address] Absolute Neut 2.5 X10 3/uL Normal 2.0-7.7 [facility] Comment on above: Performed By: #### L 501.080 #### [facility] [address] [place], [address] Basophils/100 WBC (Bld) 0.8 % Normal 0-1 [facility] Comment on above: Performed By: #### L 501.080 #### [facility] [address] [place], [address] Eosinophils/100 WBC (Bld) 4.6 % Normal 0-5 [facility] Comment on above: Performed By: #### L 501.080 #### [facility] [address] [place], [address] Erythrocyte distribution width (RBC) [Ratio] 14.4 % Normal 11.6-14.6 [facility] Comment on above: Performed By: #### L 501.080 #### [facility] [address] [place], [address] Hematocrit (Bld) [Volume fraction] 32.3 % Low 40-54 [facility] Comment on above: Performed By: #### L 501.080 #### [facility] [address] [place], [address] Hemoglobin (Bld) [Mass/Vol] 10.9 g/dL Low 13.0-16.5 [facility] Comment on above: Performed By: #### L 501.080 #### [facility] [address] [place], [address] IG% 0.600 Normal 0.0-0.9 [facility] Comment on above: Result Comment: IG% - Immature Granulocytes (promyelocytes, myelocytes and metamyelocytes) > 1% indicates that a LEFT SHIFT is Present. Performed By: #### L 501.080 #### [facility] [address] [place], [address] Lymphocytes/100 WBC (Bld) 31.3 % Normal 19-41 [facility] Comment on above: Performed By: #### L 501.080 #### [facility] [address] [place], [address] MCH (RBC) [Entitic mass] 31.1 pg Normal 27.0-32.0 [facility] Comment on above: Performed By: #### L 501.080 #### [facility] [address] [place], [address] MCHC (RBC) [Mass/Vol] 33.7 g/dL Normal 32-36 [facility] Comment on above: Performed By: #### L 501.080 #### [facility] [address] [place], [address] MCV (RBC) [Entitic vol] 92.0 fL Normal 80-94 [facility] Comment on above: Performed By: #### L 501.080 #### [facility] [address] [place], [address] Monocytes/100 WBC (Bld) 9.8 % Normal 0-10 [facility] Comment on above: Performed By: #### L 501.080 #### [facility] [address] [place], [address] Neutrophils/100 WBC (Bld) 52.9 % Normal 47-70 [facility] Comment on above: Performed By: #### L 501.080 #### [facility] [address] [place], [address] Nucleated RBC (Bld) [#/Vol] 0 10*3/uL Normal 0-5 [facility] Comment on above: Performed By: #### L 501.080 #### [facility] [address] [place], [address] Platelet mean volume (Bld) [Entitic vol] 9.9 fL Normal 6.2-12.0 [facility] Comment on above: Performed By: #### L 501.080 #### [facility] [address] [place], [address] Platelets (Bld) [#/Vol] 253 10*3/uL Normal 150-450 [facility] Comment on above: Performed By: #### L 501.080 #### [facility] [address] [place], [address] RBC (Bld) [#/Vol] 3.51 10*6/uL Low 4.6-6.2 [facility] Comment on above: Performed By: #### L 501.080 #### [facility] [address] [place], [address] RDW SD 47.9 fl High 35.1-43.9 [facility] Comment on above: Performed By: #### L 501.080 #### [facility] [address] [place], [address] WBC (Bld) [#/Vol] 4.8 10*3/uL Normal 4.4-11.0 [facility] Comment on above: Performed By: #### L 501.080 #### [facility] [address] [place], [address] Carbon dioxide, total [Moles /volume] in Central venous bloodOrdered By: Juan Reed on 11-13-2024 CO2 [Moles/Vol] 27.1 mmol/L 21.0-32.0 [facility] Chloride assayOrdered By: Jakob Reed on 11-13-2024 Chloride [Moles/Vol] 94 mmol/L Low 98-108 [facility] Eosinophil percentageOrdered By: Juan Reed on 11-13-2024 Eosinophils/100 WBC (Bld) 4.6 % 0-5 [facility] Erythrocyte distribution wid th ratioOrdered By: Juan Reed on 11-13-2024 Erythrocyte distribution width (RBC) [Ratio] 14.4 % 11.6-14.6 [facility] Erythrocyte distribution wid th standard deviationOrdered By: Juan Reed 11-13-2024 Erythrocyte distribution width (RBC) [Ratio] 47.9 fl High 35.1-43.9 [facility] Glomerular filtration rate ( GFR) estimation/1.73 sq m using serum, plasma, or whole bOrdered By: Juan Reed on 11-13-2024 GFR/1.73 sq M.predicted among non-blacks MDRD (S/P/Bld) [Vol rate/Area] 92 mL/min/{1.73_m2} >60 [facility] Comment on above: mL/min/1.73m2 CKD-EP I Creatinine Equation (2020) [facility] deOrdered By: Juan Reed 11-13-2024 Glucose [Mass/Vol] 137 mg/dL High 74-106 [facility] Comment on above: MANAGEMENT OF PATIEN T CARE PER NURSING PROTOCOL Hematocrit Auto (Bld) [Volum e fraction]Ordered By: Juan Reed on 11-13-2024 Hematocrit (Bld) [Volume fraction] 32.3 % Low 40-54 [facility] Hemoglobin measurementOrdere d By: Juan Reed 11-13-2024 Hemoglobin (Bld) [Mass/Vol] 10.9 g/dL Low 13.0-16.5 [facility] Immature granulocytes/100 WB C Auto (Bld)Ordered By: Juan Reed 11-13-2024 Immature granulocytes/100 WBC (Bld) 0.600 % 0.0-0.9 [facility] Comment on above: IG% - Immature Granu locytes (promyelocytes, myelocytes and metamyelocytes) > 1% indicates that a LEFT SHIFT is Present. MCV (mean corpuscular volume ) determinationOrdered By: Juan Derek on 11-13-2024 MCV (RBC) [Entitic vol] 92.0 fL 80-94 [facility] Mean corpuscular hemoglobin (MCH) determinationOrdered By: [facility] on 11-13-2024 MCH (RBC) [Entitic mass] 31.1 pg 27.0-32.0 [facility] Mean corpuscular hemoglobin concentration (MCHC) determinationOrdered By: [facility] on 11-13-2024 MCHC (RBC) [Mass/Vol] 33.7 g/dL 32-36 [facility] Mean platelet volume determi nationOrdered By: [facility] 11-13-2024 Platelet mean volume (Bld) [Entitic vol] 9.9 fL 6.2-12.0 [facility] Monocyte percentageOrdered B y: [facility] on 11-13-2024 Monocytes/100 WBC (Bld) 9.8 % 0-10 [facility] Neutrophil percentageOrdered By: [facility] 11-13-2024 Neutrophils/100 WBC (Bld) 52.9 % 47-70 [facility] Nucleated red blood cell per centageOrdered By: [facility] 11-13-2024 Nucleated RBC/100 WBC (Bld) [Ratio] 0 % 0-5 [facility] Osmolality urOrdered By: Juan Derek on 11-13-2024 Osmolality (U) [Osmolality] 406 mOsm/KG >50 [facility] Comment on above: Normal Urine Referen ce Ranges Random: 50 - 1200 mOsm/kg H20 depending on fluid intake Random: >850 mOsm/kg after 12 hour fluid restriction 24 hour: ~300 - 900 mOsm/kg H2O Osmolality, Serumon 11-14-19 25 OSMOLALITY,SER 278 mOsm/KG Low 280-301 [facility] Comment on above: Performed By: #### L 501.7300 #### [facility] [place] [place], [address] Osmolality, Urineon 11-14-19 25 OSMOLALITY,UR 406 mOsm/KG Normal [facility] Comment on above: Result Comment: Normal Urine Reference Ranges Random: 50 - 1200 mOsm/kg H20 depending on fluid intake Random: >850 mOsm/kg after 12 hour fluid restriction 24 hour: 300 - 900 mOsm/kg H2O Performed By: #### L 501.5500, L501.7400 #### [facility] [address] [place], [address] Platelet countOrdered By: Jakob Reed on 11-13-2024 Platelets (Bld) [#/Vol] 253 10*3/uL 150-450 [facility] Potassium measurement (mass/ volume)Ordered By: Juan Reed on 11-13-2024 Potassium (Unsp spec) [Mass/Vol] 3.9 mmol/L 3.3-5.1 [facility] RBC Auto (Bld) [#/Vol]Ordere d By: Juan Reed on 11-13-2024 RBC (Bld) [#/Vol] 3.51 10*6/uL Low 4.6-6.2 [facility] Serum creatinine measurement (mass/volume)Ordered By: Juan Reed on 11-13-2024 Creatinine [Mass/Vol] 0.65 mg/dL Low 0.70-1.20 [facility] Serum glucose measurement (m ass/volume)Ordered By: Juan Reed on 11-13-2024 Glucose [Mass/Vol] 122 mg/dL High 70-99 [facility] Serum or plasma calcium les urement (mass/volume)Ordered By: Juan Reed on 11-13-2024 Calcium [Mass/Vol] 9.2 mg/dL 7.6-11.0 [facility] Serum or plasma urea nitroge n measurement (mass/volume)Ordered By: Juan Reed on 11-13-2024 Urea nitrogen [Mass/Vol] 14 mg/dL 4-19 [facility] Sodium levelOrdered By: Juan Reed on 11-13-2024 Sodium [Moles/Vol] 128 mmol/L Low 133-145 [facility] Urine Sodiumon 11-13-2024 Sodium (U) [Moles/Vol] 51 mmol/L Normal Not Establ. [facility] Comment on above: Performed By: #### L 501.5500, L501.7400 #### [facility] [address] [place], [address] Urine sodium measurement (mo les/volume)Ordered By: Juan Reed on 11-13-2024 Sodium (U) [Moles/Vol] 51 mmol/L Not Establ. [facility] White blood cell (WBC) count Ordered By: Juan Reed on 11-13-2024 WBC (Bld) [#/Vol] 4.8 10*3/uL 4.4-11.0 [facility] Bedside Glucoseon 11-12-2024 FINGERSTICK GLU 137 mg/dL High 74-106 [facility] Comment on above: Result Comment: PERCY GEMENT OF PATIENT CARE PER NURSING PROTOCOL Performed By: #### L 501.080 #### [facility] [address] [facility] [place], [address] Urine Cultureon 11-12-2024 URC Culture exhibits no growth. Normal [facility] Comment on above: Performed By: #### L 400.0001, M100.2200 #### [facility] [address] [place], [address] Amorphous sediment detection in urine sediment by light microscopyOrdered By: Juan Reed on 11-11-2024 Amorphous sediment LM Ql (Urine sed) 3+ [facility] Bedside Glucoseon 11-11-2024 FINGERSTICK GLU 124 mg/dL High 74-106 [facility] Comment on above: Result Comment: PERCY GEMENT OF PATIENT CARE PER NURSING PROTOCOL Performed By: #### L 400.0001, M100.2200 #### [facility] [address] [place], [address] Bilirubin Test strip Ql (U)O rdered By: Juan Reed on 11-11-2024 Bilirubin Ql (U) Negative Negative [facility] Calcium oxalate crystals det ection in urine sediment by light microscopyOrdered By: Juan Reed on 11-11-2024 Calcium oxalate crystals LM Ql (Urine sed) RARE /hpf [facility] Ketones Test strip Ql (U)Ord ered By: Juan Reed on 11-11-2024 Ketones Ql (U) Negative Negative [facility] Microscopic analysis of urin e for red blood cells (RBC)Ordered By: Juan Reed on 11-11-2024 Microscopic analysis of urine for red blood cells (RBC) > 100 SEEN /hpf 0-5 [facility] Mucus LM Ql (Urine sed)Order ed By: Juan Reed on 11-11-2024 Mucus Ql (Urine sed) 0 SEEN /hpf [facility] Nitrite Test strip Ql (U)Ord ered By: Juan Reed on 11-11-2024 Nitrite Ql (U) Negative Negative [facility] Protein Test strip Ql (U)Ord ered By: Juan Reed on 11-11-2024 Protein Ql (U) 30 mg/dl High Negative [facility] Squamous epithelial cells de tection in urine sediment by light microscopyOrdered By: Juan Reed on 11-11-2024 Epithelial cells.squamous LM Ql (Urine sed) 0 SEEN /hpf 0-5 [facility] Urinalysis, Completeon 11-11 AMORPHOUS 3+ Normal [facility] Comment on above: Order Comment: BENNY TER SPECIMEN Performed By: #### L 501.080 #### [facility] [address] [facility] [place], [address] CA OX CRYSTAL RARE Normal [facility] Comment on above: Order Comment: BENNY TER SPECIMEN Performed By: #### L 501.080 #### [facility] [address] [place], [address] WBC 5-10 SEEN Normal 0-5 [facility] Comment on above: Order Comment: BENNY TER SPECIMEN Performed By: #### L 501.080 #### [facility] [address] [place], [address] RBC > 100 SEEN Normal 0-5 [facility] Comment on above: Order Comment: BENNY TER SPECIMEN Performed By: #### L 501.080 #### [facility] [address] [place], [address] BACTERIA 0 SEEN Normal None Seen [facility] Comment on above: Order Comment: BENNY TER SPECIMEN Performed By: #### L 501.080 #### [facility] [address] [place], [address] EPI,SQUAMOUS 0 SEEN Normal 0-5 [facility] Comment on above: Order Comment: BENNY TER SPECIMEN Performed By: #### L 501.080 #### [facility] [address] [place], [address] Mucus Ql (Urine sed) [address] [facility] Comment on above: Order Comment: BENNY TER SPECIMEN Performed By: #### L 501.080 #### [facility] [address] [place], [place], [address] Urine clarityOrdered By: Juan Reed on 11-11-2024 Clarity (U) Turbid Clear [facility] Urine color determinationOrd ered By: Juan Reed on 11-11-2024 Color (U) Yellow Yellow [facility] Urine cultureOrdered By: Juan Reed on 11-11-2024 Bacteria identified Cx Nom (U) Culture exhibits no growth. [facility] Urine glucose detectionOrder ed By: Juan Reed on 11-11-2024 Glucose Ql (U) Normal mg/dl Normal [facility] Urine leukocyte esterase det ection by dipstickOrdered By: Juan Reed on 11-11-2024 Leukocyte esterase Test strip Ql (U) 25 /ul High Negative [facility] Urine pHOrdered By: Juan Reed on 11-11-2024 pH (U) 7.0 [pH] 5.0 - 8.0 [facility] Urine sediment bacteria coun t by microscopy (number/high power field)Ordered By: Juan Reed on 11-11-2024 Bacteria LM.HPF (Urine sed) [#/Area] 0 /[HPF] None Seen [facility] Urine specific gravity measu rementOrdered By: Juan Reed on 11-11-2024 Specific gravity (U) [Rel density] 1.010 1.002-1.030 [facility] Urine urobilinogen measureme ntOrdered By: Juan Reed on 11-11-2024 Urobilinogen Ql (U) Normal mg/dl Normal [facility] White blood cell countOrdere d By: Juan Reed on 11-11-2024 White blood cell count 5-10 SEEN /hpf 0-5 [facility] Bedside Glucoseon 11-10-2024 FINGERSTICK GLU 112 mg/dL High 74-106 [facility] Comment on above: Result Comment: PERCY GEMENT OF PATIENT CARE PER NURSING PROTOCOL Performed By: #### L 501.080 #### [facility] [address] [place], [address] Bedside Glucoseon 11-09-2024 FINGERSTICK GLU 121 mg/dL High 74-106 [facility] Comment on above: Result Comment: PERCY GEMENT OF PATIENT CARE PER NURSING PROTOCOL Performed By: #### L 501.080 #### [facility] [address] [facility] [address] Bedside Glucoseon 11-08-2024 FINGERSTICK GLU 112 mg/dL High 74-106 [facility] Comment on above: Result Comment: PERCY GEMENT OF PATIENT CARE PER NURSING PROTOCOL Performed By: #### L 501.080 #### [facility] [address] [place], [address] Bedside Glucoseon 11-07-2024 FINGERSTICK GLU 137 mg/dL High 74-106 [facility] Comment on above: Result Comment: PERCY GEMENT OF PATIENT CARE PER NURSING PROTOCOL Performed By: #### L 501.080 #### [facility] [address] [place], [address] Basic Metabolic Profile (BMP )on 11-06-2024 BUN/CRE 23.1 RATIO High 10-20 [facility] Comment on above: Performed By: #### L 501.080 #### [facility] [address] [place], [address] Calcium [Mass/Vol] 9.3 mg/dL Normal 7.6-11.0 [facility] Comment on above: Performed By: #### L 501.080 #### [facility] [address] [place], [address] Chloride [Moles/Vol] 99 mmol/L Normal 98-[address] [facility] [facility] Comment on above: Performed By: #### L 501.080 #### [facility] [address] [place], [address] CO2 [Moles/Vol] 25.4 mmol/L Normal 21.0-32.0 [facility] Comment on above: Performed By: #### L 501.080 #### [facility] [address] [place], [address] Creatinine [Mass/Vol] 0.68 mg/dL Low 0.70-1.20 [facility] Comment on above: Performed By: #### L 501.080 #### [facility] [address] [place], [address] ECRCL 62.59 ml/min Normal 50-250 [facility] Comment on above: Performed By: #### L 501.080 #### [facility] [address] [place], [address] GAP 9 Normal 5-15 [facility] Comment on above: Performed By: #### L 501.080 #### [facility] [address] [place], [address] GFR/1.73 sq M.predicted among non-blacks MDRD (S/P/Bld) [Vol rate/Area] 91 mL/min/{1.73_m2} Normal >60 [facility] Comment on above: Result Comment: mL/m in/1.73m2 CKD-EPI Creatinine Equation (2020) Performed By: #### L 501.080 #### [facility] [address] [place], [address] Glucose [Mass/Vol] 139 mg/dL High 70-99 [facility] Comment on above: Performed By: #### L 501.080 #### [facility] [address] [place], [address] Potassium [Moles/Vol] 3.9 mmol/L Normal 3.3-5.1 [facility] Comment on above: Performed By: #### L 501.080 #### [facility] [address] [place], [address] Sodium [Moles/Vol] 134 mmol/L Normal 133-145 [facility] Comment on above: Performed By: #### L 501.080 #### [facility] [address] [place], [address] Urea nitrogen [Mass/Vol] 16 mg/dL Normal 4-19 [facility] Comment on above: Performed By: #### L 501.080 #### [facility] [address] [place], [address] Bedside Glucoseon 11-06-2024 FINGERSTICK GLU 148 mg/dL High 74-106 [facility] Comment on above: Result Comment: PERCY READ OF PATIENT CARE PER NURSING PROTOCOL Performed By: #### L 501.080 #### [facility] [address] [place], [address] CBC W/Diff, Automatedon 07-0 Absolute Lymph 1.22 X10 3/uL Normal 0.83-4.51 [facility] Comment on above: Performed By: #### L 501.080 #### [facility] [address] [place], [address] Absolute Neut 5.5 X10 3/uL Normal 2.0-7.7 [facility] Comment on above: Performed By: #### L 501.080 #### [facility] [address] [place], [address] Basophils/100 WBC (Bld) 0.7 % Normal 0-1 [facility] Comment on above: Performed By: #### L 501.080 #### [facility] [address] [place], [address] Eosinophils/100 WBC (Bld) 1.6 % Normal 0-5 [facility] Comment on above: Performed By: #### L 501.080 #### [facility] [address] [place], [address] Erythrocyte distribution width (RBC) [Ratio] 14.1 % Normal 11.6-14.6 [facility] Comment on above: Performed By: #### L 501.080 #### [facility] [address] [place], [address] Hematocrit (Bld) [Volume fraction] 31.9 % Low 40-54 [facility] Comment on above: Performed By: #### L 501.080 #### [facility] [address] [place], [address] Hemoglobin (Bld) [Mass/Vol] 10.8 g/dL Low 13.0-16.5 [facility] Comment on above: Performed By: #### L 501.080 #### [facility] [address] [place], [address] IG% 0.900 Normal 0.0-0.9 [facility] Comment on above: Result Comment: IG% - Immature Granulocytes (promyelocytes, myelocytes and metamyelocytes) > 1% indicates that a LEFT SHIFT is Present. Performed By: #### L 501.080 #### [facility] [address] [place], [address] Lymphocytes/100 WBC (Bld) 16.4 % Low 19-41 [facility] Comment on above: Performed By: #### L 501.080 #### [facility] [address] [place], [address] MCH (RBC) [Entitic mass] 31.3 pg Normal 27.0-32.0 [facility] Comment on above: Performed By: #### L 501.080 #### [facility] [address] [place], [address] MCHC (RBC) [Mass/Vol] 33.9 g/dL Normal 32-36 [facility] Comment on above: Performed By: #### L 501.080 #### [facility] [address] [place], [address] MCV (RBC) [Entitic vol] 92.5 fL Normal 80-94 [facility] Comment on above: Performed By: #### L 501.080 #### [facility] [address] [place], [address] Monocytes/100 WBC (Bld) 6.2 % Normal 0-10 [facility] Comment on above: Performed By: #### L 501.080 #### [facility] [address] [place], [address] Neutrophils/100 WBC (Bld) 74.2 % High 47-70 [facility] Comment on above: Performed By: #### L 501.080 #### [facility] [address] [place], [address] Nucleated RBC (Bld) [#/Vol] 0 10*3/uL Normal 0-5 [facility] Comment on above: Performed By: #### L 501.080 #### [facility] [address] [place], [address] Platelet mean volume (Bld) [Entitic vol] 9.4 fL Normal 6.2-12.0 [facility] Comment on above: Performed By: #### L 501.080 #### [facility] [address] [place], [address] Platelets (Bld) [#/Vol] 360 10*3/uL Normal 150-450 [facility] Comment on above: Performed By: #### L 501.080 #### [facility] [address] [place], [address] RBC (Bld) [#/Vol] 3.45 10*6/uL Low 4.6-6.2 [facility] Comment on above: Performed By: #### L 501.080 #### [facility] [address] [place], [address] RDW SD 47.4 fl High 35.1-43.9 [facility] Comment on above: Performed By: #### L 501.080 #### [facility] [address] [place], [address] WBC (Bld) [#/Vol] 7.5 10*3/uL Normal 4.4-11.0 [facility] Comment on above: Performed By: #### L 501.080 #### [facility] [address] [place], [address] Bedside Glucoseon 11-05-2024 FINGERSTICK GLU 156 mg/dL High 74-106 [facility] Comment on above: Result Comment: PERCY GEMENT OF PATIENT CARE PER NURSING PROTOCOL Performed By: #### L 400.0001, M100.2200 #### [facility] [address] [place], [address] Bedside Glucoseon 11-04-2024 FINGERSTICK GLU 130 mg/dL High 74-106 [facility] Comment on above: Result Comment: PERCY GEMENT OF PATIENT CARE PER NURSING PROTOCOL Performed By: #### L 501.080 #### [facility] [address] [place], [address] Chest PA and Lateralon 11-04 Chest PA and Lateral [facility] [address] [place], [place] [id number] Chest PA and Lateral MR#: [id number] Acct: [id number] Name: TIM ADAMSON Rep #: [id number] : [id number] M 83 From: Forest Isaac MD PCP: VALENTIN Marrufo Status: ADM IN Study: Chest PA and Lateral Date of Exam: 11/04/24 Exam# [id number] Ordering Dr: Juan Reed MD PROCEDURE: CHEST PA AND LATERAL 11/04/2024 REASON FOR EXAM: COUGH. TECHNIQUE: CHEST PA AND LATERAL COMPARISON: None. FINDINGS: The heart is enlarged. Left basilar linear opacity favoring scar or atelectasis. Developing infiltrate is possible. Trace bilateral pleural effusions. No pneumothorax. RAD/Chest PA and Lateral IMPRESSION: As above. Reading Location: [id number] CC: VALENTIN Price; Dr. Juan Reed MD Slash Trimmer: Signed Normal [facility] Urine Cultureon 11-04-2024 URC Culture exhibits no growth. Normal [facility] Comment on above: Performed By: #### L 400.0001, M100.2200 #### [facility] [address] [place], [address] Urinalysis, Completeon 11-03 Mucus Ql (Urine sed) 1+ /hpf Normal [facility] Comment on above: Order Comment: COLOR OF URINE MAY AFFECT DIPSTICK RESULTS. Microscopic field is filled. Other elements may be obscured. CATHETER SPECIMEN Performed By: #### L 400.0001, M100.2200 #### [facility] [address] [place], [place], [id number] WBC 5-10 SEEN Normal 0-5 [facility] Comment on above: Order Comment: COLOR OF URINE MAY AFFECT DIPSTICK RESULTS. Microscopic field is filled. Other elements may be obscured. CATHETER SPECIMEN Performed By: #### L 400.0001, M100.0 #### [facility] [address] [place], [address] BACTERIA 1+ /hpf Normal None Seen [facility] Comment on above: Order Comment: COLOR OF URINE MAY AFFECT DIPSTICK RESULTS. Microscopic field is filled. Other elements may be obscured. CATHETER SPECIMEN Performed By: #### L 400.0001, M100.2200 #### [facility] [address] [place], [address] RBC > 100 SEEN Normal 0-5 [facility] Comment on above: Order Comment: COLOR OF URINE MAY AFFECT DIPSTICK RESULTS. Microscopic field is filled. Other elements may be obscured. CATHETER SPECIMEN Performed By: #### L 400.0001, M100.0 #### [facility] [address] [place], [address] EPI,SQUAMOUS 0 SEEN Normal 0-5 [facility] Comment on above: Order Comment: COLOR OF URINE MAY AFFECT DIPSTICK RESULTS. Microscopic field is filled. Other elements may be obscured. CATHETER SPECIMEN Performed By: #### L 400.0001, M100.0 #### [facility] [address] [place], [address] Urine cultureOrdered By: Juan Reed on 11-03-2024 Bacteria identified Cx Nom (U) Culture exhibits no growth. [facility] Bedside Glucoseon 11-02-2024 FINGERSTICK GLU 156 mg/dL High 74-106 [facility] Comment on above: Result Comment: PERCY GEMENT OF PATIENT CARE PER NURSING PROTOCOL Performed By: #### L 501.080 #### [facility] [address] [place], [address] Bedside Glucoseon 11-01-2024 FINGERSTICK GLU 178 mg/dL High 74-106 [facility] Comment on above: Result Comment: PERCY GEMENT OF PATIENT CARE PER NURSING PROTOCOL Performed By: #### L 501.080 #### [facility] [address] [place], [place], [address] Bedside Glucoseon 10-31-2024 FINGERSTICK GLU 184 mg/dL High 74-106 [facility] Comment on above: Result Comment: PERCY READ OF PATIENT CARE PER NURSING PROTOCOL Performed By: #### L 501.080 #### [facility] [address] [place], [place], [address] Calculated very low density lipoprotein (VLDL) cholesterol measurementOrdered By: Juan Reed on 10-31-2024 Calculated very low density lipoprotein (VLDL) cholesterol measurement 16 mg/dL 5-40 [facility] Hemoglobin A1con 10-31-2024 HbA1c (Bld) [Mass fraction] 7.1 % High <=5.6 [facility] Comment on above: Result Comment: Norm al < 5.7 % Prediabetic 5.7 - 6.4 % Diabetic >or= 6.5 % Please note range changes. Performed By: #### L 500.4100, L506.1001, L501.9985 #### [facility] [address] [place], [place], [id number] Hemoglobin A1c percentageOrd ered By: Juan Reed on 10-31-2024 HbA1c (Bld) [Mass fraction] 7.1 % High <5.7 [facility] Comment on above: Normal < 5.7 % Predi abetic 5.7 - 6.4 % Diabetic >or= 6.5 % Please note range changes. LDL calc ser/plasOrdered By: Juan Reed on 10-31-2024 Cholesterol in LDL [Mass/Vol] 74 mg/dL [facility] Comment on above: Xgybipvvei=080-769 m g/dL & Higher Aihv=783 mg/dL or greater Lipid Profileon 10-31-2024 CHOL:HDL 3.59 Normal [facility] Comment on above: Performed By: #### L 400.0001, M100.2200 #### [facility] [address] [place], [place], [address] Cholesterol [Mass/Vol] 124 mg/dL Normal <=200 [facility] Comment on above: Result Comment: Chol esterol level, Desirable <200 mg/dL Borderline high cholesterol 200-239 mg/dL High cholesterol >=240 mg/dL Recommendations of the NCEP Adult Treatment Panel for the following risk-cutoff thresholds for the [place] population. Performed By: #### L 400.0001, #### [facility] [address] [place], [address] Cholesterol in HDL [Mass/Vol] 35 mg/dL Low [facility] Comment on above: Result Comment: Zahraa onal Cholesterol Education Program (NCEP) guidelines: <40 mg/dL: Low HDL-cholesterol (major risk factor for CHD) >= 60 mg/dL: High HDL-cholesterol (negative risk factor for CHD) HDL-cholesterol is affected by a number of factors, e.g. smoking, exercise, hormones, sex and age. Performed By: #### L 400.0001, #### [facility] [address] [place], [address] Cholesterol in LDL [Mass/Vol] 74 mg/dL Normal [facility] Comment on above: Result Comment: Bord ixcnlq=138-659 mg/dL Higher Ieaw=868 mg/dL or greater Performed By: #### L 400.0001, #### [facility] [address] [place], [address] Cholesterol in VLDL [Mass/Vol] 16 mg/dL Normal 5-40 [facility] Comment on above: Performed By: #### L 400.0001, #### [facility] [address] [place], [address] Triglyceride [Mass/Vol] 79 mg/dL Normal [facility] Comment on above: Result Comment: The drugs N-Acetylcysteine and Metamizole may falsely depress this assay. Normal range: <150 mg/dL Borderline High: 150-199 mg/dL High: 200-499 mg/dL Very High: >500 mg/dL Performed By: #### L 400.0001, M100.2200 #### [facility] [address] [place], [address] Screening total cholesterol/ high density lipoprotein (HDL) cholesterol ratioOrdered By: Juan Reed on 10-31-2024 Cholesterol.total/Cherelle sterol in HDL [Mass ratio] 3.59 {ratio} [facility] Serum or plasma cholesterol in HDL measurement (mass/volume)Ordered By: Juan Reed on 10-31-2024 Cholesterol in HDL [Mass/Vol] 35 mg/dL Low >40 [facility] Comment on above: National Cholesterol Education Program (NCEP) guidelines:<40 mg/dL: Low HDL-cholesterol (major risk factor for CHD)>= 60 mg/dL: High HDL-cholesterol (negative risk factor for CHD)HDL-cholesterol is affected by a number of factors, e.g. smoking, exercise, hormones, sex and age. Serum or plasma cholesterol measurement (mass/volume)Ordered By: Juan Reed on 10-31-2024 Cholesterol [Mass/Vol] 124 mg/dL <201 [facility] Comment on above: Cholesterol level, D esirable <200 mg/dLBorderline high cholesterol 200-239 mg/dLHigh cholesterol >=240 mg/dLRecommendations of the NCEP Adult Treatment Panel for the following risk-cutoff thresholds for the [place] population. Triglycerides measurementOrd ered By: Juan Reed on 10-31-2024 Triglyceride [Mass/Vol] 79 mg/dL <199 [facility] Comment on above: The drugs N-Acetylcy steine and Metamizole may falsely depress this assay. Normal range: <150 mg/dLBorderline High: 150-199 mg/dLHigh: 200-499 mg/dLVery High: >500 mg/dL Vitamin D,25 Hydroxyon 10-31 Vitamin D 25-OH 46.7 ng/mL Normal 30-100 [facility] Comment on above: Result Comment: Whit min D Status Deficiency: <20 ng/mL (50nmol/L) Insufficiency: 20-30 ng/mL (50-75 nmol/L) Sufficiency: 30-100 ng/mL (75-250 nmol/L) Toxicity: >100 ng/mL (>250 nmol/L) Performed By: #### L 400.0001, M100.2200 #### [facility] [address] [place], [address] Basic Metabolic Profile (BMP )on 10-30-2024 BUN/CRE 34.3 RATIO High 10-20 [facility] Comment on above: Performed By: #### L 501.080 #### [facility] [address] [place], [address] Calcium [Mass/Vol] 10.1 mg/dL Normal 7.6-11.0 [facility] Comment on above: Performed By: #### L 501.080 #### [facility] [address] [place], [address] Chloride [Moles/Vol] 93 mmol/L Low 98-108 [facility] Comment on above: Performed By: #### L 501.080 #### [facility] [address] [place], [address] CO2 [Moles/Vol] 27.1 mmol/L Normal 21.0-32.0 [facility] Comment on above: Performed By: #### L 501.080 #### [facility] [address] [place], [address] Creatinine [Mass/Vol] 0.64 mg/dL Low 0.70-1.20 [facility] Comment on above: Performed By: #### L 501.080 #### [facility] [address] [place], [address] ECRCL 63.12 ml/min Normal 50-250 [facility] Comment on above: Performed By: #### L 501.080 #### [facility] [address] [place], [address] GAP 12 Normal 5-15 [facility] Comment on above: Performed By: #### L 501.080 #### [facility] [address] [place], [address] GFR/1.73 sq M.predicted among non-blacks MDRD (S/P/Bld) [Vol rate/Area] 93 mL/min/{1.73_m2} Normal >60 [facility] Comment on above: Result Comment: mL/m in/1.73m2 CKD-EPI Creatinine Equation (2020) Performed By: #### L 501.080 #### [facility] [address] [place], [address] Glucose [Mass/Vol] 194 mg/dL High 70-99 [facility] Comment on above: Performed By: #### L 501.080 #### [facility] [address] [place], [address] Potassium [Moles/Vol] 4.0 mmol/L Normal 3.3-5.1 [facility] Comment on above: Performed By: #### L 501.080 #### [facility] [address] [place], [address] Sodium [Moles/Vol] 132 mmol/L Low 133-145 [facility] Comment on above: Performed By: #### L 501.080 #### [facility] [address] [place], [address] Urea nitrogen [Mass/Vol] 22 mg/dL High 4-19 [facility] Comment on above: Performed By: #### L 501.080 #### [facility] [address] [place], [address] Bedside Glucoseon 10-30-2024 FINGERSTICK GLU 182 mg/dL High 74-106 [facility] Comment on above: Result Comment: PERCY READ OF PATIENT CARE PER NURSING PROTOCOL Performed By: #### L 501.080 #### [facility] [address] [place], [address] CBC W/Diff, Automatedon 06-2 -2024 Absolute Lymph 1.67 X10 3/uL Normal 0.83-4.51 [facility] Comment on above: Performed By: #### L 501.080 #### [facility] [address] [place], [address] Absolute Neut 9.0 X10 3/uL High 2.0-7.7 [facility] Comment on above: Performed By: #### L 501.080 #### [facility] [address] [place], [address] Basophils/100 WBC (Bld) 0.7 % Normal 0-1 [facility] Comment on above: Performed By: #### L 501.080 #### [facility] [address] [place], [address] Eosinophils/100 WBC (Bld) 1.5 % Normal 0-5 [facility] Comment on above: Performed By: #### L 501.080 #### [facility] [address] [place], [address] Erythrocyte distribution width (RBC) [Ratio] 13.6 % Normal 11.6-14.6 [facility] Comment on above: Performed By: #### L 501.080 #### [facility] [address] [place], [address] Hematocrit (Bld) [Volume fraction] 36.9 % Low 40-54 [facility] Comment on above: Performed By: #### L 501.080 #### [facility] [address] [place], [address] Hemoglobin (Bld) [Mass/Vol] 12.6 g/dL Low 13.0-16.5 [facility] Comment on above: Performed By: #### L 501.080 #### [facility] [address] [place], [address] IG% 4.300 High 0.0-0.9 [facility] Comment on above: Result Comment: IG% - Immature Granulocytes (promyelocytes, myelocytes and metamyelocytes) > 1% indicates that a LEFT SHIFT is Present. Performed By: #### L 501.080 #### [facility] [address] [place], [address] Lymphocytes/100 WBC (Bld) 13.8 % Low 19-41 [facility] Comment on above: Performed By: #### L 501.080 #### [facility] [address] [place], [address] MCH (RBC) [Entitic mass] 31.3 pg Normal 27.0-32.0 [facility] Comment on above: Performed By: #### L 501.080 #### [facility] [address] [place], [address] MCHC (RBC) [Mass/Vol] 34.1 g/dL Normal 32-36 [facility] Comment on above: Performed By: #### L 501.080 #### [facility] [address] [place], [address] MCV (RBC) [Entitic vol] 91.8 fL Normal 80-94 [facility] Comment on above: Performed By: #### L 501.080 #### [facility] [address] [place], [address] Monocytes/100 WBC (Bld) 5.3 % Normal 0-10 [facility] Comment on above: Performed By: #### L 501.080 #### [facility] [address] [place], [address] Neutrophils/100 WBC (Bld) 74.4 % High 47-70 [facility] Comment on above: Performed By: #### L 501.080 #### [facility] [address] [place], [address] Nucleated RBC (Bld) [#/Vol] 0 10*3/uL Normal 0-5 [facility] Comment on above: Performed By: #### L 501.080 #### [facility] [address] [place], [address] Platelet mean volume (Bld) [Entitic vol] 9.2 fL Normal 6.2-12.0 [facility] Comment on above: Performed By: #### L 501.080 #### [facility] [address] [place], [address] Platelets (Bld) [#/Vol] 348 10*3/uL Normal 150-450 [facility] Comment on above: Performed By: #### L 501.080 #### [facility] [address] [place], [address] RBC (Bld) [#/Vol] 4.02 10*6/uL Low 4.6-6.2 [facility] Comment on above: Performed By: #### L 501.080 #### [facility] [address] [place], [address] RDW SD 46.5 fl High 35.1-43.9 [facility] Comment on above: Performed By: #### L 501.080 #### [facility] [address] [place], [address] WBC (Bld) [#/Vol] 12.1 10*3/uL High 4.4-11.0 [facility] Comment on above: Performed By: #### L 501.080 #### [facility] [address] [place], [address] .GFRon 10-29-2024 Estimated Glomerular Filtration Rate 97 ml/min/1.73sqm Normal [facility] Comment on above: Result Comment: [...] Performed By: #### U A UAMIC #### [place] [address] .Manual Diffon 10-29-2024 Bands 1.0 % Normal 0.0-5.0 [facility] Comment on above: Performed By: #### U Shea UAMIC #### [place] [address] Basophil %, Manual 0.0 % Normal 0.0-2.5 [facility] Comment on above: Performed By: #### U A UAMIC #### [place] [address] Basophil, Abs Manual 0.0 10 3/mcL Normal 0.0-0.3 [facility] Comment on above: Performed By: #### U A UAMIC #### [place] [address] Eosinophil %, Manual 3.0 % Normal 0.0-6.0 [facility] Comment on above: Performed By: #### U A, UAMIC #### [place] [address] Eosinophil, Abs Manual 0.2 10 3/mcL Normal 0.0-0.7 [facility] Comment on above: Performed By: #### U A, UAMIC #### [place] [address] Lymphocyte %, Manual 18.0 % Low 20.0-40.0 [facility] Comment on above: Performed By: #### U A UAMIC #### [place] [id number] Lymphocyte, Abs Manual 1.4 10 3/mcL Normal 0.9-4.3 [facility] Comment on above: Performed By: #### Anatoly Valdivia UAMIC #### [place] [address] Metamyelocyte 3.0 % Normal [facility] Comment on above: Performed By: #### Anatoly Valdivia UAMIC #### [place] [address] Monocyte %, Manual 7.0 % Normal 2.0-13.0 [facility] Comment on above: Performed By: #### Anatoly Valdivia UAMIC #### [place] [id number] Monocyte, Abs Manual 0.6 10 3/mcL Normal 0.1-1.4 [facility] Comment on above: Performed By: #### Anatoly Valdivia UAMIC #### [place] [address] Neutrophil %, Manual 68.0 % Normal 50.0-75.0 [facility] Comment on above: Performed By: #### Anatoly Valdivia UAMIC #### [place] [id number] Neutrophil, Abs Manual 5.3 10 3/mcL Normal 2.3-8.1 [facility] Comment on above: Performed By: #### Anatoly Valdivia UAMIC #### [place] [address] Nucleated RBC 0.0 /100 WBC Normal [facility] Comment on above: Performed By: #### Anatoly Valdivia UAMIC #### [place] [address] .Morphon 10-29-2024 Platelet Estimate Normal Normal [facility] Comment on above: Performed By: #### U Shea UAMIC #### [place] [address] RBC morphology finding Nom (Bld) Normal Normal [facility] Comment on above: Performed By: #### U Shea UAMIC #### [place] [address] CBCon 10-29-2024 Erythrocyte distribution width (RBC) [Ratio] 14.1 % Normal 11.5-15.5 [facility] Comment on above: Performed By: #### U Shea UAMIC #### [place] [address] Hematocrit (Bld) [Volume fraction] 34.1 % Low 40.0-52.0 [facility] Comment on above: Performed By: #### U Shea UAMIC #### [place] [address] Hgb 12.1 G/dL Low 13.0-17.5 [facility] Comment on above: Performed By: #### Anatoly Valdivia UAMIC #### [place] [address] MCH (RBC) [Entitic mass] 32.4 pg Normal 27.0-33.0 [facility] Comment on above: Performed By: #### Anatoly Valdivia UAMIC #### [place] [address] MCHC 35.4 G/dL Normal 32.0-36.0 [facility] Comment on above: Performed By: #### Anatoly Valdivia UAMIC #### [place] [address] MCV (RBC) [Entitic vol] 91.4 fL Normal 81.0-100.0 [facility] Comment on above: Performed By: #### U Shea UAMIC #### [place] [address] Platelet 327 10 3/mcL Normal 150-450 [facility] Comment on above: Performed By: #### U Shea UAMIC #### [place] [address] Platelet mean volume (Bld) [Entitic vol] 7.2 fL Normal 6.4-10.5 [facility] Comment on above: Performed By: #### U Shea UAMIC #### [place] [address] RBC 3.72 10 6/mcL Low 4.50-6.00 [facility] Comment on above: Performed By: #### U Shea UAMIC #### [place] [id number] WBC 7.7 10 3/mcL Normal 4.5-10.8 [facility] Comment on above: Performed By: #### Anatoly Valdivia UAMIC #### [place] [id number] CMPon 10-29-2024 Albumin Level 2.9 G/dL Low 3.2-4.8 [facility] Comment on above: Performed By: #### Anatoly Valdivia UAMIC #### [place] [id number] Albumin/Globulin [Mass ratio] 0.9 {ratio} Normal 0.9-1.6 [facility] Comment on above: Performed By: #### Anatoly Valdivia UAMIC #### [place] [id number] ALP [Catalytic activity/Vol] 76 U/L Normal 38-126 [facility] Comment on above: Performed By: #### Anatoly Valdivia UAMIC #### [place] [address] ALT [Catalytic activity/Vol] 47 U/L Normal 12-55 [facility] Comment on above: Performed By: #### Anatoly Valdivia UAMIC #### [place] [address] AST [Catalytic activity/Vol] 30 U/L Normal 8-34 [facility] Comment on above: Performed By: #### Anatoly Valdivia UAMIC #### [place] [address] Bili Total 0.50 mg/dL Normal 0.20-1.20 [facility] Comment on above: Result Comment: Use of this assay is not recommended for patients undergoing treatment with eltrombopag due to the potential for falsely elevated results. Performed By: #### U Shea UAMIC #### [place] [address] BUN/Creatinine Ratio 39.3 ratio High 10.0-22.0 [facility] Comment on above: Performed By: #### U A, UAMIC #### [address] [address] Calcium [Mass/Vol] 9.7 mg/dL Normal 8.7-10.4 [facility] Comment on above: Performed By: #### Anatoly Valdivia UAMIC #### [address] [address] Chloride [Moles/Vol] 95 mmol/L Low 98-110 [facility] Comment on above: Performed By: #### Anatoly Valdivia UAMIC #### [address] [address] CO2 [Moles/Vol] 29 mmol/L Normal 22-32 [facility] Comment on above: Performed By: #### BERNA Frank #### [address] [address] Creatinine [Mass/Vol] 0.56 mg/dL Low 0.60-1.40 [facility] Comment on above: Result Comment: Test ing performed on Rhytec analyzer using enzymatic creatinine methodology. Performed By: #### Anatoly Valdivia UACARRILLO #### [address] [address] Electrolyte Balance 10.0 mEq/L Normal 4.0-15.0 [facility] Comment on above: Performed By: #### Anatoly Valdivia UACARRILLO #### [address] [address] Globulin 3.3 G/dL Normal 2.5-4.2 [facility] Comment on above: Performed By: #### Anatoly Valdivia UAMIC #### [address] [address] Glucose [Mass/Vol] 215 mg/dL High 82-115 [facility] Comment on above: Performed By: #### Anatoly Valdivia UACARRILLO #### [address] [address] Potassium [Moles/Vol] 3.7 mmol/L Normal 3.5-5.0 [facility] Comment on above: Performed By: #### Anatoly Valdivia UAMIC #### [address] [address] Sodium [Moles/Vol] 134 mmol/L Low 136-145 [facility] Comment on above: Performed By: #### U A, UAMIC #### [facility] [address] [place] [address] Total Protein 6.2 G/dL Normal 5.7-8.2 [facility] Comment on above: Performed By: #### U A, UAMIC #### [facility] [address] [place] [address] Urea nitrogen [Mass/Vol] 22.0 mg/dL Normal 8.0-22.0 [facility] Comment on above: Performed By: #### U A, UAMIC #### [facility] [address] [place] [address] LABORATORYOrdered By: Maikol Corrigan on 10-29-2024 Blood Glucose Testing Reason Routine (10/29/24 11:33 AM) [facility] Glucose [Mass/Vol] 276 mg/dL High 82 - 115 mg/dL [facility] Blood Glucose Testing Reason Routine (10/29/24 7:44 AM) [facility] Glucose [Mass/Vol] 196 mg/dL High 82 - 115 mg/dL [facility] LABORATORYOrdered By: SYSTEM SYSTEM on 10-29-2024 Albumin BCP dye [Mass/Vol] 2.9 G/dL Low 3.2 - 4.8 G/dL [facility] Albumin/Globulin [Mass ratio] 0.9 {ratio} [...] above: Interpretive Data: T esting performed on Rhytec analyzer using enzymatic creatinine methodology. Electrolyte Balance [...] 10-29-2024 Magnesium [Mass/Vol] 1.7 mg/dL Normal 1.6-2.4 [facility] Comment on above: Performed By: #### U A, UAMIC #### [address] [address] .GFRon 10-28-2024 Estimated Glomerular Filtration Rate 92 ml/min/1.73sqm Normal [facility] Comment on above: Result Comment: [...] DIFF, CBC, BMP, ANEU, MG, GFR #### [address] [address] .Manual Diffon 10-28-2024 Basophil %, Manual 0.0 % Normal 0.0-2.5 [facility] Comment on above: Performed By: #### A DIFF, CBC, BMP, ANEU, MG, GFR #### [address] [address] Basophil, Abs Manual 0.0 10 3/mcL Normal 0.0-0.3 [facility] Comment on above: Performed By: #### A DIFF, CBC, BMP, ANEU, MG, GFR #### [address] [address] Eosinophil %, Manual 1.0 % Normal 0.0-6.0 [facility] Comment on above: Performed By: #### A DIFF, CBC, BMP, ANEU, MG, GFR #### [address] [address] Eosinophil, Abs Manual 0.1 10 3/mcL Normal 0.0-0.7 [facility] Comment on above: Performed By: #### A DIFF, CBC, BMP, ANEU, MG, GFR #### [address] [address] Lymphocyte %, Manual 11.0 % Low 20.0-40.0 [facility] Comment on above: Performed By: #### A DIFF, CBC, BMP, ANEU, MG, GFR #### [address] [address] Lymphocyte, Abs Manual 1.1 10 3/mcL Normal 0.9-4.3 [facility] Comment on above: Performed By: #### A DIFF, CBC, BMP, ANEU, MG, GFR #### [address] [address] Metamyelocyte 1.0 % Normal [facility] Comment on above: Performed By: #### A DIFF, CBC, BMP, ANEU, MG, GFR #### [address] [address] Monocyte %, Manual 4.0 % Normal 2.0-13.0 [facility] Comment on above: Performed By: #### A DIFF, CBC, BMP, ANEU, MG, GFR #### [address] [address] Monocyte, Abs Manual 0.4 10 3/mcL Normal 0.1-1.4 [facility] Comment on above: Performed By: #### A DIFF, CBC, BMP, ANEU, MG, GFR #### [place] [address] Neutrophil %, Manual 83.0 % High 50.0-75.0 [facility] Comment on above: Performed By: #### A DIFF, CBC, BMP, ANEU, MG, GFR #### [place] [address] Neutrophil, Abs Manual 8.2 10 3/mcL High 2.3-8.1 [facility] Comment on above: Performed By: #### A DIFF, CBC, BMP, ANEU, MG, GFR #### [place] [address] Nucleated RBC 0.0 /100 WBC Normal [facility] Comment on above: Performed By: #### A DIFF, CBC, BMP, ANEU, MG, GFR #### [place] [address] .Morphon 10-28-2024 Platelet Estimate Normal Normal [facility] Comment on above: Performed By: #### A DIFF, CBC, BMP, ANEU, MG, GFR #### [place] [address] RBC morphology finding Nom (Bld) Normal Normal [facility] Comment on above: Performed By: #### A DIFF, CBC, BMP, ANEU, MG, GFR #### [place] [address] Toxic Gran 1+ Normal [facility] Comment on above: Performed By: #### A DIFF, CBC, BMP, ANEU, MG, GFR #### [place] [address] CBCon 10-28-2024 Erythrocyte distribution width (RBC) [Ratio] 14.1 % Normal 11.5-15.5 [facility] Comment on above: Performed By: #### A DIFF, CBC, BMP, ANEU, MG, GFR #### [place] [address] Hematocrit (Bld) [Volume fraction] 35.4 % Low 40.0-52.0 [facility] Comment on above: Performed By: #### A DIFF, CBC, BMP, ANEU, MG, GFR #### [place] [address] Hgb 12.2 G/dL Low 13.0-17.5 [facility] Comment on above: Performed By: #### A DIFF, CBC, BMP, ANEU, MG, GFR #### [place] [address] MCH (RBC) [Entitic mass] 31.4 pg Normal 27.0-33.0 [facility] Comment on above: Performed By: #### A DIFF, CBC, BMP, ANEU, MG, GFR #### [place] [address] MCHC 34.4 G/dL Normal 32.0-36.0 [facility] Comment on above: Performed By: #### A DIFF, CBC, BMP, ANEU, MG, GFR #### [place] [address] MCV (RBC) [Entitic vol] 91.5 fL Normal 81.0-100.0 [facility] Comment on above: Performed By: #### A DIFF, CBC, BMP, ANEU, MG, GFR #### [place] [address] Platelet 311 10 3/mcL Normal 150-450 [facility] Comment on above: Performed By: #### A DIFF, CBC, BMP, ANEU, MG, GFR #### [place] [address] Platelet mean volume (Bld) [Entitic vol] 7.3 fL Normal 6.4-10.5 [facility] Comment on above: Performed By: #### A DIFF, CBC, BMP, ANEU, MG, GFR #### [place] [address] RBC 3.87 10 6/mcL Low 4.50-6.00 [facility] Comment on above: Performed By: #### A DIFF, CBC, BMP, ANEU, MG, GFR #### [place] [address] WBC 9.9 10 3/mcL Normal 4.5-10.8 [facility] Comment on above: Performed By: #### A DIFF, CBC, BMP, ANEU, MG, GFR #### [address] [address] CMPon 10-28-2024 Albumin Level 3.0 G/dL Low 3.2-4.8 [facility] Comment on above: Performed By: #### A DIFF, CBC, BMP, ANEU, MG, GFR #### [place] [id number] Albumin/Globulin [Mass ratio] 0.9 {ratio} Normal 0.9-1.6 [facility] Comment on above: Performed By: #### A DIFF, CBC, BMP, ANEU, MG, GFR #### [place] [address] ALP [Catalytic activity/Vol] 74 U/L Normal 38-126 [facility] Comment on above: Performed By: #### A DIFF, CBC, BMP, ANEU, MG, GFR #### [place] [address] ALT [Catalytic activity/Vol] 41 U/L Normal 12-55 [facility] Comment on above: Performed By: #### A DIFF, CBC, BMP, ANEU, MG, GFR #### [place] [id number] AST [Catalytic activity/Vol] 30 U/L Normal 8-34 [facility] Comment on above: Performed By: #### A DIFF, CBC, BMP, ANEU, MG, GFR #### [place] [id number] Bili Total 0.60 mg/dL Normal 0.20-1.20 [facility] Comment on above: Result Comment: Use of this assay is not recommended for patients undergoing treatment with eltrombopag due to the potential for falsely elevated results. Performed By: #### A DIFF, CBC, BMP, ANEU, MG, GFR #### [place] [address] BUN/Creatinine Ratio 37.9 ratio High 10.0-22.0 [facility] Comment on above: Performed By: #### A DIFF, CBC, BMP, ANEU, MG, GFR #### [address] [address] Calcium [Mass/Vol] 9.7 mg/dL Normal 8.7-10.4 [facility] Comment on above: Performed By: #### A DIFF, CBC, BMP, ANEU, MG, GFR #### [address] [address] Chloride [Moles/Vol] 95 mmol/L Low 98-110 [facility] Comment on above: Performed By: #### A DIFF, CBC, BMP, ANEU, MG, GFR #### [address] [address] CO2 [Moles/Vol] 27 mmol/L Normal 22-32 [facility] Comment on above: Performed By: #### A DIFF, CBC, BMP, ANEU, MG, GFR #### [place] [id number] Creatinine [Mass/Vol] 0.66 mg/dL Normal 0.60-1.40 [facility] Comment on above: Result Comment: Test ing performed on Rhytec analyzer using enzymatic creatinine methodology. Performed By: #### A DIFF, CBC, BMP, ANEU, MG, GFR #### [address] [address] Electrolyte Balance 12.0 mEq/L Normal 4.0-15.0 [facility] Comment on above: Performed By: #### A DIFF, CBC, BMP, ANEU, MG, GFR #### [address] [address] Globulin 3.4 G/dL Normal 2.5-4.2 [facility] Comment on above: Performed By: #### A DIFF, CBC, BMP, ANEU, MG, GFR #### [address] [address] Glucose [Mass/Vol] 200 mg/dL High 82-115 [facility] Comment on above: Performed By: #### A DIFF, CBC, BMP, ANEU, MG, GFR #### [address] [place], [place] [address] Potassium [Moles/Vol] 3.6 mmol/L Normal 3.5-5.0 [facility] Comment on above: Performed By: #### A DIFF, CBC, BMP, ANEU, MG, GFR #### [facility] [address] [place] [address] Sodium [Moles/Vol] 134 mmol/L Low 136-145 [facility] Comment on above: Performed By: #### A DIFF, CBC, BMP, ANEU, MG, GFR #### [address] [address] Total Protein 6.4 G/dL Normal 5.7-8.2 [facility] Comment on above: Performed By: #### A DIFF, CBC, BMP, ANEU, MG, GFR #### [address] [address] Urea nitrogen [Mass/Vol] 25.0 mg/dL High 8.0-22.0 [facility] Comment on above: Performed By: #### A DIFF, CBC, BMP, ANEU, MG, GFR #### [address] [address] LABORATORYOrdered By: Kelli Swartz on 10-28-2024 Blood Glucose Testing Reason Routine (10/28/24 10:14 PM) [facility] Glucose [Mass/Vol] 270 mg/dL High 82 - 115 mg/dL [facility] LABORATORYOrdered By: SYSTEM SYSTEM on 10-28-2024 [...] above: Interpretive Data: T esting performed on Rhytec analyzer using enzymatic creatinine methodology. Electrolyte Balance [...] 10-28-2024 Magnesium [Mass/Vol] 1.8 mg/dL Normal 1.6-2.4 [facility] Comment on above: Performed By: #### A DIFF, CBC, BMP, ANEU, MG, GFR #### [place] [address] XR CHEST 1 VIEWon 10-28-2024 XR CHEST [...] Provider: ROSI PRADO Normal [facility] .Auto Diffon 10-27-2024 Basophil, Absolute 0.0 10 3/mcL Normal 0.0-0.3 [facility] Comment on above: Performed By: #### A DIFF, CBC, BMP, ANEU, MG, GFR #### [address] [address] Basophils/100 WBC (Bld) 0.1 % Normal 0.0-2.5 [facility] Comment on above: Performed By: #### A DIFF, CBC, BMP, ANEU, MG, GFR #### [address] [address] Eosinophil, Absolute 0.0 10 3/mcL Normal 0.0-0.7 [facility] Comment on above: Performed By: #### A DIFF, CBC, BMP, ANEU, MG, GFR #### [address] [address] Eosinophils/100 WBC (Bld) 0.5 % Normal 0.0-6.0 [facility] Comment on above: Performed By: #### A DIFF, CBC, BMP, ANEU, MG, GFR #### [address] [address] Lymphocyte, Absolute 0.9 10 3/mcL Normal 0.9-4.3 [facility] Comment on above: Performed By: #### A DIFF, CBC, BMP, ANEU, MG, GFR #### [address] [address] Lymphocytes/100 WBC (Bld) 9.3 % Low 20.0-40.0 [facility] Comment on above: Performed By: #### A DIFF, CBC, BMP, ANEU, MG, GFR #### [facility] [address] [place] [address] Monocyte, Absolute 0.7 10 3/mcL Normal 0.1-1.4 [facility] Comment on above: Performed By: #### A DIFF, CBC, BMP, ANEU, MG, GFR #### [address] [address] Monocytes/100 WBC (Bld) 7.4 % Normal 2.0-13.0 [facility] Comment on above: Performed By: #### A DIFF, CBC, BMP, ANEU, MG, GFR #### [address] [address] Neutrophils/100 WBC (Bld) 82.7 % High 50.0-75.0 [facility] Comment on above: Performed By: #### A DIFF, CBC, BMP, ANEU, MG, GFR #### [address] [address] .GFRon 10-27-2024 Estimated Glomerular Filtration Rate 93 ml/min/1.73sqm Normal [facility] Comment on above: Result Comment: [...] DIFF, CBC, BMP, ANEU, MG, GFR #### [address] [address] .NEUABSon 10-27-2024 Neutrophil, Absolute 8.1 10 3/mcL Normal 2.3-8.1 [facility] Comment on above: Performed By: #### A DIFF, CBC, BMP, ANEU, MG, GFR #### [address] [address] CBCon 10-27-2024 Erythrocyte distribution width (RBC) [Ratio] 14.3 % Normal 11.5-15.5 [facility] Comment on above: Performed By: #### A DIFF, CBC, BMP, ANEU, MG, GFR #### [place] [address] Hematocrit (Bld) [Volume fraction] 35.2 % Low 40.0-52.0 [facility] Comment on above: Performed By: #### A DIFF, CBC, BMP, ANEU, MG, GFR #### [place] [address] Hgb 12.2 G/dL Low 13.0-17.5 [facility] Comment on above: Performed By: #### A DIFF, CBC, BMP, ANEU, MG, GFR #### [place] [address] MCH (RBC) [Entitic mass] 31.6 pg Normal 27.0-33.0 [facility] Comment on above: Performed By: #### A DIFF, CBC, BMP, ANEU, MG, GFR #### [place] [address] MCHC 34.8 G/dL Normal 32.0-36.0 [facility] Comment on above: Performed By: #### A DIFF, CBC, BMP, ANEU, MG, GFR #### [place] [address] MCV (RBC) [Entitic vol] 91.0 fL Normal 81.0-100.0 [facility] Comment on above: Performed By: #### A DIFF, CBC, BMP, ANEU, MG, GFR #### [place] [address] Platelet 288 10 3/mcL Normal 150-450 [facility] Comment on above: Performed By: #### A DIFF, CBC, BMP, ANEU, MG, GFR #### [place] [address] Platelet mean volume (Bld) [Entitic vol] 7.5 fL Normal 6.4-10.5 [facility] Comment on above: Performed By: #### A DIFF, CBC, BMP, ANEU, MG, GFR #### [address] [address] RBC 3.87 10 6/mcL Low 4.50-6.00 [facility] Comment on above: Performed By: #### A DIFF, CBC, BMP, ANEU, MG, GFR #### [place] [id number] WBC 9.8 10 3/mcL Normal 4.5-10.8 [facility] Comment on above: Performed By: #### A DIFF, CBC, BMP, ANEU, MG, GFR #### [place] [id number] CMPon 10-27-2024 Albumin Level 2.9 G/dL Low 3.2-4.8 [facility] Comment on above: Performed By: #### A DIFF, CBC, BMP, ANEU, MG, GFR #### [place] [address] Albumin/Globulin [Mass ratio] 0.9 {ratio} Normal 0.9-1.6 [facility] Comment on above: Performed By: #### A DIFF, CBC, BMP, ANEU, MG, GFR #### [place] [address] ALP [Catalytic activity/Vol] 68 U/L Normal 38-126 [facility] Comment on above: Performed By: #### A DIFF, CBC, BMP, ANEU, MG, GFR #### [place] [address] ALT [Catalytic activity/Vol] 39 U/L Normal 12-55 [facility] Comment on above: Performed By: #### A DIFF, CBC, BMP, ANEU, MG, GFR #### [place] [address] AST [Catalytic activity/Vol] 34 U/L Normal 8-34 [facility] Comment on above: Performed By: #### A DIFF, CBC, BMP, ANEU, MG, GFR #### [place] [address] Bili Total 0.60 mg/dL Normal 0.20-1.20 [facility] Comment on above: Result Comment: Use of this assay is not recommended for patients undergoing treatment with eltrombopag due to the potential for falsely elevated results. Performed By: #### A DIFF, CBC, BMP, ANEU, MG, GFR #### [place] [id number] BUN/Creatinine Ratio 39.1 ratio High 10.0-22.0 [facility] Comment on above: Performed By: #### A DIFF, CBC, BMP, ANEU, MG, GFR #### [address] [address] Calcium [Mass/Vol] 9.4 mg/dL Normal 8.7-10.4 [facility] Comment on above: Performed By: #### A DIFF, CBC, BMP, ANEU, MG, GFR #### [place] [id number] Chloride [Moles/Vol] 93 mmol/L Low 98-110 [facility] Comment on above: Performed By: #### A DIFF, CBC, BMP, ANEU, MG, GFR #### [place] [id number] CO2 [Moles/Vol] 31 mmol/L Normal 22-32 [facility] Comment on above: Performed By: #### A DIFF, CBC, BMP, ANEU, MG, GFR #### [place] [id number] Creatinine [Mass/Vol] 0.64 mg/dL Normal 0.60-1.40 [facility] Comment on above: Result Comment: Test ing performed on Rhytec analyzer using enzymatic creatinine methodology. Performed By: #### A DIFF, CBC, BMP, ANEU, MG, GFR #### [place] [id number] Electrolyte Balance 7.0 mEq/L Normal 4.0-15.0 [facility] Comment on above: Performed By: #### A DIFF, CBC, BMP, ANEU, MG, GFR #### [place] [id number] Globulin 3.3 G/dL Normal 2.5-4.2 [facility] Comment on above: Performed By: #### A DIFF, CBC, BMP, ANEU, MG, GFR #### [address] [address] Glucose [Mass/Vol] 192 mg/dL High 82-115 [facility] Comment on above: Performed By: #### A DIFF, CBC, BMP, ANEU, MG, GFR #### [address] [address] Potassium [Moles/Vol] 3.9 mmol/L Normal 3.5-5.0 [facility] Comment on above: Performed By: #### A DIFF, CBC, BMP, ANEU, MG, GFR #### [address] [address] Sodium [Moles/Vol] 131 mmol/L Low 136-145 [facility] Comment on above: Performed By: #### A DIFF, CBC, BMP, ANEU, MG, GFR #### [address] [address] Total Protein 6.2 G/dL Normal 5.7-8.2 [facility] Comment on above: Performed By: #### A DIFF, CBC, BMP, ANEU, MG, GFR #### [address] [address] Urea nitrogen [Mass/Vol] 25.0 mg/dL High 8.0-22.0 [facility] Comment on above: Performed By: #### A DIFF, CBC, BMP, ANEU, MG, GFR #### [place] [id number] CT THORAX W/ CONTRASTon 10-05 CT THORAX [...] 10/27/2024 3:57:32 AM Ordering Provider: BELKYS ALCANTAR [facility] MAIN LABORATORYOrdered By: SYSTEM SYSTEM on 10-27-2024 [...] above: Interpretive Data: T esting performed on Rhytec analyzer using enzymatic creatinine methodology. Electrolyte Balance [...] 10-27-2024 Magnesium [Mass/Vol] 1.8 mg/dL Normal 1.6-2.4 [facility] Comment on above: Performed By: #### A DIFF, CBC, BMP, ANEU, MG, GFR #### [address] [address] .Auto Diffon 10-26-2024 Basophil, Absolute 0.0 10 3/mcL Normal 0.0-0.3 [facility] Comment on above: Performed By: #### A DIFF, CBC, BMP, ANEU, MG, GFR #### [address] [address] Basophils/100 WBC (Bld) 0.2 % Normal 0.0-2.5 [facility] Comment on above: Performed By: #### A DIFF, CBC, BMP, ANEU, MG, GFR #### [address] [address] Eosinophil, Absolute 0.0 10 3/mcL Normal 0.0-0.7 [facility] Comment on above: Performed By: #### A DIFF, CBC, BMP, ANEU, MG, GFR #### [address] [address] Eosinophils/100 WBC (Bld) 0.6 % Normal 0.0-6.0 [facility] Comment on above: Performed By: #### A DIFF, CBC, BMP, ANEU, MG, GFR #### [address] [address] Lymphocyte, Absolute 1.0 10 3/mcL Normal 0.9-4.3 [facility] Comment on above: Performed By: #### A DIFF, CBC, BMP, ANEU, MG, GFR #### [address] [address] Lymphocytes/100 WBC (Bld) 11.3 % Low 20.0-40.0 [facility] Comment on above: Performed By: #### A DIFF, CBC, BMP, ANEU, MG, GFR #### [address] [address] Monocyte, Absolute 0.8 10 3/mcL Normal 0.1-1.4 [facility] Comment on above: Performed By: #### A DIFF, CBC, BMP, ANEU, MG, GFR #### [address] [address] [address] Monocytes/100 WBC (Bld) 9.4 % Normal 2.0-13.0 [facility] Comment on above: Performed By: #### A DIFF, CBC, BMP, ANEU, MG, GFR #### [address] [address] Neutrophils/100 WBC (Bld) 78.5 % High 50.0-75.0 [facility] Comment on above: Performed By: #### A DIFF, CBC, BMP, ANEU, MG, GFR #### [address] [address] .GFRon 10-26-2024 Estimated Glomerular Filtration Rate 96 ml/min/1.73sqm Normal [facility] Comment on above: Result Comment: [...] DIFF, CBC, BMP, ANEU, MG, GFR #### [place] [address] .NEUABSon 10-26-2024 Neutrophil, Absolute 6.8 10 3/mcL Normal 2.3-8.1 [facility] Comment on above: Performed By: #### A DIFF, CBC, BMP, ANEU, MG, GFR #### [place] [id number] CBCon 10-26-2024 Erythrocyte distribution width (RBC) [Ratio] 14.0 % Normal 11.5-15.5 [facility] Comment on above: Performed By: #### A DIFF, CBC, BMP, ANEU, MG, GFR #### [place] [address] Hematocrit (Bld) [Volume fraction] 37.1 % Low 40.0-52.0 [facility] Comment on above: Performed By: #### A DIFF, CBC, BMP, ANEU, MG, GFR #### [place] [address] Hgb 12.7 G/dL Low 13.0-17.5 [facility] Comment on above: Performed By: #### A DIFF, CBC, BMP, ANEU, MG, GFR #### [place] [address] MCH (RBC) [Entitic mass] 31.5 pg Normal 27.0-33.0 [facility] Comment on above: Performed By: #### A DIFF, CBC, BMP, ANEU, MG, GFR #### [place] [address] MCHC 34.4 G/dL Normal 32.0-36.0 [facility] Comment on above: Performed By: #### A DIFF, CBC, BMP, ANEU, MG, GFR #### [place] [address] MCV (RBC) [Entitic vol] 91.8 fL Normal 81.0-100.0 [facility] Comment on above: Performed By: #### A DIFF, CBC, BMP, ANEU, MG, GFR #### [place] [address] Platelet 258 10 3/mcL Normal 150-450 [facility] Comment on above: Performed By: #### A DIFF, CBC, BMP, ANEU, MG, GFR #### [place] [address] Platelet mean volume (Bld) [Entitic vol] 7.4 fL Normal 6.4-10.5 [facility] Comment on above: Performed By: #### A DIFF, CBC, BMP, ANEU, MG, GFR #### [place] [address] RBC 4.04 10 6/mcL Low 4.50-6.00 [facility] Comment on above: Performed By: #### A DIFF, CBC, BMP, ANEU, MG, GFR #### [place] [address] WBC 8.7 10 3/mcL Normal 4.5-10.8 [facility] Comment on above: Performed By: #### A DIFF, CBC, BMP, ANEU, MG, GFR #### [place] [address] CMPon 10-26-2024 Albumin Level 3.1 G/dL Low 3.2-4.8 [facility] Comment on above: Performed By: #### A DIFF, CBC, BMP, ANEU, MG, GFR #### [place] [address] Albumin/Globulin [Mass ratio] 1.0 {ratio} Normal 0.9-1.6 [facility] Comment on above: Performed By: #### A DIFF, CBC, BMP, ANEU, MG, GFR #### [address] [address] ALP [Catalytic activity/Vol] 62 U/L Normal 38-126 [facility] Comment on above: Performed By: #### A DIFF, CBC, BMP, ANEU, MG, GFR #### [place] [address] ALT [Catalytic activity/Vol] 26 U/L Normal 12-55 [facility] Comment on above: Performed By: #### A DIFF, CBC, BMP, ANEU, MG, GFR #### [address] [address] AST [Catalytic activity/Vol] 27 U/L Normal 8-34 [facility] Comment on above: Performed By: #### A DIFF, CBC, BMP, ANEU, MG, GFR #### [address] [address] Bili Total 0.70 mg/dL Normal 0.20-1.20 [facility] Comment on above: Result Comment: Use of this assay is not recommended for patients undergoing treatment with eltrombopag due to the potential for falsely elevated results. Performed By: #### A DIFF, CBC, BMP, ANEU, MG, GFR #### [place] [id number] BUN/Creatinine Ratio 39.7 ratio High 10.0-22.0 [facility] Comment on above: Performed By: #### A DIFF, CBC, BMP, ANEU, MG, GFR #### [address] [address] Calcium [Mass/Vol] 9.2 mg/dL Normal 8.7-10.4 [facility] Comment on above: Performed By: #### A DIFF, CBC, BMP, ANEU, MG, GFR #### [address] [address] Chloride [Moles/Vol] 91 mmol/L Low 98-110 [facility] Comment on above: Performed By: #### A DIFF, CBC, BMP, ANEU, MG, GFR #### [address] [address] CO2 [Moles/Vol] 28 mmol/L Normal 22-32 [facility] Comment on above: Performed By: #### A DIFF, CBC, BMP, ANEU, MG, GFR #### [address] [address] Creatinine [Mass/Vol] 0.58 mg/dL Low 0.60-1.40 [facility] Comment on above: Result Comment: Test ing performed on Rhytec analyzer using enzymatic creatinine methodology. Performed By: #### A DIFF, CBC, BMP, ANEU, MG, GFR #### [address] [address] Electrolyte Balance 10.0 mEq/L Normal 4.0-15.0 [facility] Comment on above: Performed By: #### A DIFF, CBC, BMP, ANEU, MG, GFR #### [address] [address] Globulin 3.2 G/dL Normal 2.5-4.2 [facility] Comment on above: Performed By: #### A DIFF, CBC, BMP, ANEU, MG, GFR #### [address] [address] Glucose [Mass/Vol] 154 mg/dL High 82-115 [facility] Comment on above: Performed By: #### A DIFF, CBC, BMP, ANEU, MG, GFR #### [address] [address] Potassium [Moles/Vol] 3.9 mmol/L Normal 3.5-5.0 [facility] Comment on above: Performed By: #### A DIFF, CBC, BMP, ANEU, MG, GFR #### [address] [address] Sodium [Moles/Vol] 129 mmol/L Low 136-145 [facility] Comment on above: Performed By: #### A DIFF, CBC, BMP, ANEU, MG, GFR #### [address] [address] Total Protein 6.3 G/dL Normal 5.7-8.2 [facility] Comment on above: Performed By: #### A DIFF, CBC, BMP, ANEU, MG, GFR #### [address] [address] Urea nitrogen [Mass/Vol] 23.0 mg/dL High 8.0-22.0 [facility] Comment on above: Performed By: #### A DIFF, CBC, BMP, ANEU, MG, GFR #### [address] [address] LABORATORYOrdered By: SYSTEM SYSTEM on 10-26-2024 Basophils [...] 10-26-2024 Magnesium [Mass/Vol] 1.9 mg/dL Normal 1.6-2.4 [facility] Comment on above: Performed By: #### A DIFF, CBC, BMP, ANEU, MG, GFR #### [place] [address] XR CHEST 1 VIEWon 10-26-2024 XR CHEST [...] 10/26/2024 10:31:55 AM Ordering Provider: DEIDRA Spangler [facility] .Auto Diffon 10-25-2024 Basophil, Absolute 0.0 10 3/mcL Normal 0.0-0.3 [facility] Comment on above: Performed By: #### Anatoly Valdivia UAMIC #### [address] [address] Basophils/100 WBC (Bld) 0.4 % Normal 0.0-2.5 [facility] Comment on above: Performed By: #### Anatoly Valdivia UACARRILLO #### [address] [address] Eosinophil, Absolute 0.1 10 3/mcL Normal 0.0-0.7 [facility] Comment on above: Performed By: #### Anatoly Valdivia UAMIC #### [address] [address] Eosinophils/100 WBC (Bld) 0.9 % Normal 0.0-6.0 [facility] Comment on above: Performed By: #### Anatoly Valdivia UAMIC #### [address] [address] Lymphocyte, Absolute 0.7 10 3/mcL Low 0.9-4.3 [facility] Comment on above: Performed By: #### Anatoly Valdivia UAMIC #### [address] [address] Lymphocytes/100 WBC (Bld) 9.2 % Low 20.0-40.0 [facility] Comment on above: Performed By: #### Anatoly Valdivia UAMIC #### [address] [address] Monocyte, Absolute 0.8 10 3/mcL Normal 0.1-1.4 [facility] Comment on above: Performed By: #### U Shea UAMIC #### [address] [address] Monocytes/100 WBC (Bld) 10.0 % Normal 2.0-13.0 [facility] Comment on above: Performed By: #### BERNA Frank #### [address] [address] Neutrophils/100 WBC (Bld) 79.5 % High 50.0-75.0 [facility] Comment on above: Performed By: #### BERNA Frank #### [address] [address] .GFRon 10-25-2024 Estimated Glomerular Filtration Rate 93 ml/min/1.73sqm Normal [facility] Comment on above: Result Comment: [...] results. Performed By: #### BERNA Frank #### [address] [address] .NEUABSon 10-25-2024 Neutrophil, Absolute 6.2 10 3/mcL Normal 2.3-8.1 [facility] Comment on above: Performed By: #### BRENA Frank #### [address] [address] B12on 10-25-2024 Cobalamin (Vitamin B12) [Mass/Vol] 377 pg/mL Normal 211-911 [facility] Comment on above: Performed By: #### BERNA Frank #### [address] [address] BGon 10-25-2024 Base excess Calc (Bld) [Moles/Vol] 1.2 mmol/L Normal [facility] Comment on above: Performed By: #### B G #### [address] [address] CO2 [Moles/Vol] 25.2 mmol/L Normal 22.0-30.0 [facility] Comment on above: Performed By: #### B G #### [address] [address] HCO3 (Bld) [Moles/Vol] 24.2 mmol/L Normal 21.0-29.0 [facility] Comment on above: Performed By: #### B G #### [address] [address] Oxygen (Bld) [Partial pressure] 107.5 mm[Hg] Normal 74.0-108.0 [facility] Comment on above: Performed By: #### B G #### [address] [address] Oxygen saturation in Blood 98.4 % High 92.0-96.0 [facility] Comment on above: Performed By: #### B G #### [address] [address] pCO2 33.2 mmHg Normal 32.0-46.0 [facility] Comment on above: Performed By: #### B G #### [address] [address] pH (Bld) 7.480 [pH] High 7.380-7.460 [facility] Comment on above: Performed By: #### B G #### [address] [address] Base excess Calc (Bld) [Moles/Vol] 3.1 mmol/L Normal [facility] Comment on above: Performed By: #### B G #### [address] [address] CO2 [Moles/Vol] 26.6 mmol/L Normal 22.0-30.0 [facility] Comment on above: Performed By: #### B G #### [address] [address] HCO3 (Bld) [Moles/Vol] 25.6 mmol/L Normal 21.0-29.0 [facility] Comment on above: Performed By: #### B G #### [address] [address] Oxygen (Bld) [Partial pressure] 35.7 mm[Hg] Critically abnormal 74.0-108.0 [facility] Comment on above: Performed By: #### B G #### [place] [id number] Oxygen saturation in Blood 74.9 % Low 92.0-96.0 [facility] Comment on above: Performed By: #### B G #### [place] [id number] pCO2 33.0 mmHg Normal 32.0-46.0 [facility] Comment on above: Performed By: #### B G #### [place] [id number] pH (Bld) 7.508 [pH] High 7.380-7.460 [facility] Comment on above: Performed By: #### B G #### [address] [address] CBCon 10-25-2024 Erythrocyte distribution width (RBC) [Ratio] 13.5 % Normal 11.5-15.5 [facility] Comment on above: Performed By: #### BERNA Frank #### [place] [id number] Hematocrit (Bld) [Volume fraction] 38.0 % Low 40.0-52.0 [facility] Comment on above: Performed By: #### SANTANA FrankMIC #### [address] [address] Hgb 13.0 G/dL Normal 13.0-17.5 [facility] Comment on above: Performed By: #### Anatoly Valdivia UAMIC #### [address] [address] MCH (RBC) [Entitic mass] 31.6 pg Normal 27.0-33.0 [facility] Comment on above: Performed By: #### BERNA Frank #### [address] [address] MCHC 34.4 G/dL Normal 32.0-36.0 [facility] Comment on above: Performed By: #### Anatoly Valdivia UAMIC #### [place] [address] MCV (RBC) [Entitic vol] 91.9 fL Normal 81.0-100.0 [facility] Comment on above: Performed By: #### Anatoly Valdivia UAMIC #### [place] [address] Platelet 258 10 3/mcL Normal 150-450 [facility] Comment on above: Performed By: #### Anatoly Valdivia UAMIC #### [place] [address] Platelet mean volume (Bld) [Entitic vol] 7.5 fL Normal 6.4-10.5 [facility] Comment on above: Performed By: #### Anatoly Valdivia UAMIC #### [place] [address] RBC 4.13 10 6/mcL Low 4.50-6.00 [facility] Comment on above: Performed By: #### Anatoly Valdivia UAMIC #### [place] [address] WBC 7.8 10 3/mcL Normal 4.5-10.8 [facility] Comment on above: Performed By: #### Anatoly Valdivia UAMIC #### [place] [address] CMPon 10-25-2024 Albumin Level 3.6 G/dL Normal 3.2-4.8 [facility] Comment on above: Performed By: #### U Shea UAMIC #### [place] [address] Albumin/Globulin [Mass ratio] 1.1 {ratio} Normal 0.9-1.6 [facility] Comment on above: Performed By: #### U Shea UAMIC #### [place] [address] ALP [Catalytic activity/Vol] 73 U/L Normal 38-126 [facility] Comment on above: Performed By: #### U A UAMIC #### [address] [address] ALT [Catalytic activity/Vol] 19 U/L Normal 12-55 [facility] Comment on above: Performed By: #### U A, UAMIC #### [address] [address] AST [Catalytic activity/Vol] 24 U/L Normal 8-34 [facility] Comment on above: Performed By: #### U Shea UAMIC #### [address] [address] Bili Total 0.70 mg/dL Normal 0.20-1.20 [facility] Comment on above: Result Comment: Use of this assay is not recommended for patients undergoing treatment with eltrombopag due to the potential for falsely elevated results. Performed By: #### Anatoly Valdivia UAMIC #### [place] [id number] BUN/Creatinine Ratio 20.3 ratio Normal 10.0-22.0 [facility] Comment on above: Performed By: #### Anatoly Valdivia UAMIC #### [address] [address] Calcium [Mass/Vol] 8.8 mg/dL Normal 8.7-10.4 [facility] Comment on above: Performed By: #### Anatoly Valdivia UAMIC #### [address] [address] Chloride [Moles/Vol] 87 mmol/L Low 98-110 [facility] Comment on above: Performed By: #### U Shea UAMIC #### [address] [address] CO2 [Moles/Vol] 27 mmol/L Normal 22-32 [facility] Comment on above: Performed By: #### U Shea UAMIC #### [address] [address] Creatinine [Mass/Vol] 0.64 mg/dL Normal 0.60-1.40 [facility] Comment on above: Result Comment: Test ing performed on Rhytec analyzer using enzymatic creatinine methodology. Performed By: #### U Shea UAMIC #### [address] [address] Electrolyte Balance 16.0 mEq/L High 4.0-15.0 [facility] Comment on above: Performed By: #### U Shea UAMIC #### [address] [address] Globulin 3.3 G/dL Normal 2.5-4.2 [facility] Comment on above: Performed By: #### Anatoly Valdivia UAMIC #### [place] [id number] Glucose [Mass/Vol] 169 mg/dL High 82-115 [facility] Comment on above: Performed By: #### Anatoly Valdivia UAMIC #### [place] [id number] Potassium [Moles/Vol] 3.3 mmol/L Low 3.5-5.0 [facility] Comment on above: Performed By: #### Anatoly Valdivia UAMIC #### [place] [id number] Sodium [Moles/Vol] 130 mmol/L Low 136-145 [facility] Comment on above: Performed By: #### Anatoly Valdivia UAMIC #### [place] [id number] Total Protein 6.9 G/dL Normal 5.7-8.2 [facility] Comment on above: Performed By: #### Anatoly Valdivia UAMIC #### [place] [id number] Urea nitrogen [Mass/Vol] 13.0 mg/dL Normal 8.0-22.0 [facility] Comment on above: Performed By: #### Anatoly Valdivia UAMIC #### [address] [address] CVFLURVon 10-25-2024 FLU A PCR Negative Normal Negative [facility] Comment on above: Result Comment: [place] [id number] Performed By: #### Anatoly Valdivia UAMIC #### [place] [id number] FLU B PCR Negative Normal Negative [facility] Comment on above: Result Comment: [place] [id number] Performed By: #### Anatoly Valdivia UAMIC #### [place] [address] RSV PCR Negative Normal Negative [facility] Comment on above: Result Comment: [place] [id number] Performed By: #### Anatoly Valdivia UAMIC #### [place] [address] SARS-CoV-2 (COVID-19) RNA MIRNA+probe Ql (Unsp spec) Negative Normal Negative [facility] Comment on above: Result Comment: [place] [id number] Results from the Xpert Xpress SARS-CoV-2/Flu/RSV or [...] Performed By: #### Anatoly Valdivia UAMIC #### [place] [address] Tres 10-25-2024 Ferritin [Mass/Vol] 108.3 ng/mL Normal 26.0-388.0 [facility] Comment on above: Performed By: #### Anatoly Valdivia UAMIC #### [place] [address] FESon 10-25-2024 Iron [Mass/Vol] 24 ug/dL Low 65-175 [facility] Comment on above: Performed By: #### Fred G #### [place] [address] Iron Sat 9 % Normal [facility] Comment on above: Performed By: #### B G #### [facility] [address] [place] [address] TIBC 272 mcg/dL Normal 250-500 [facility] Comment on above: Performed By: #### B G #### [facility] [address] [place] [address] LABORATORYOrdered By: Olinda Cisneros on 10-25-2024 FLUAV RNA MIRNA+probe Ql (Resp) Negative 14 (10/25/24 7:02 AM) Normal Negative [facility] Comment on above: Result Comment: [place] [id number] FLUBV RNA MIRNA+probe Ql (Resp) Negative 15 (10/25/24 7:02 AM) Normal Negative [facility]Sero SS Comment on above: Result Comment: Note s RSV PCR Negative 16 (10/25/24 7:02 AM) Normal Negative [facility]iro[facility]Sero SS Comment on above: Result Comment: [place] s [id number] SARS-CoV-2 (COVID-19) RNA MIRNA+probe Ql (Resp) Negative 12, 13 (10/25/24 7:02 AM) Normal Negative [facility]Sero SS Comment on above: Result Comment: [place] s [id number] Interpretive Data: R esults from the Xpert [...] 10-25-2024 Magnesium [Mass/Vol] 1.8 mg/dL Normal 1.6-2.4 [facility] Comment on above: Performed By: #### U BERNA Valdivia #### [place] [address] No Panel Informationon 10-25 Legionella Urine Ag Presumptive negative for L. pneumophila serogroup 1 antigen in urine, suggesting no recent or current infection. Legionnaire's disease cannot be ruled out since other serogroups and species may also cause disease. [facility] Streptococcus Pneumoniae Urine Antig Presumptive negative for pneumococcal pneumonia, suggesting no current or recent pneumococcal infection. Infection due to Strep pneumoniae cannot be ruled out since the antigen present in the sample may be below the detection limit of the test. [facility] Comment on above: This test has [...] 10/25/2024 2:15:00 AM Ordering Provider: LUIS Spangler [facility] .Auto Diffon 10-24-2024 Basophil, Absolute 0.0 10 3/mcL Normal 0.0-0.3 [facility] Comment on above: Performed By: #### A DIFF, CBC, BMP, ANEU, MG, GFR #### [address] [address] Basophils/100 WBC (Bld) 0.5 % Normal 0.0-2.5 [facility] Comment on above: Performed By: #### A DIFF, CBC, BMP, ANEU, MG, GFR #### [address] [address] Eosinophil, Absolute 0.1 10 3/mcL Normal 0.0-0.7 [facility] Comment on above: Performed By: #### A DIFF, CBC, BMP, ANEU, MG, GFR #### [address] [address] Eosinophils/100 WBC (Bld) 1.4 % Normal 0.0-6.0 [facility] Comment on above: Performed By: #### A DIFF, CBC, BMP, ANEU, MG, GFR #### [address] [address] Lymphocyte, Absolute 0.7 10 3/mcL Low 0.9-4.3 [facility] Comment on above: Performed By: #### A DIFF, CBC, BMP, ANEU, MG, GFR #### [address] [address] Lymphocytes/100 WBC (Bld) 9.8 % Low 20.0-40.0 [facility] Comment on above: Performed By: #### A DIFF, CBC, BMP, ANEU, MG, GFR #### [address] [address] Monocyte, Absolute 0.6 10 3/mcL Normal 0.1-1.4 [facility] Comment on above: Performed By: #### A DIFF, CBC, BMP, ANEU, MG, GFR #### [address] [address] Monocytes/100 WBC (Bld) 7.6 % Normal 2.0-13.0 [facility] Comment on above: Performed By: #### A DIFF, CBC, BMP, ANEU, MG, GFR #### [address] [address] Neutrophils/100 WBC (Bld) 80.7 % High 50.0-75.0 [facility] Comment on above: Performed By: #### A DIFF, CBC, BMP, ANEU, MG, GFR #### [address] [address] .GFRon 10-24-2024 Estimated Glomerular Filtration Rate 99 ml/min/1.73sqm Normal [facility] Comment on above: Result Comment: [...] DIFF, CBC, BMP, ANEU, MG, GFR #### [address] [address] .NEUABSon 10-24-2024 Neutrophil, Absolute 6.0 10 3/mcL Normal 2.3-8.1 [facility] Comment on above: Performed By: #### A DIFF, CBC, BMP, ANEU, MG, GFR #### [address] [address] BMPon 10-24-2024 BUN/Creatinine Ratio 29.4 ratio High 10.0-22.0 [facility] Comment on above: Performed By: #### A DIFF, CBC, BMP, ANEU, MG, GFR #### [place] [address] Calcium [Mass/Vol] 9.3 mg/dL Normal 8.7-10.4 [facility] Comment on above: Performed By: #### A DIFF, CBC, BMP, ANEU, MG, GFR #### [place] [address] Chloride [Moles/Vol] 93 mmol/L Low 98-110 [facility] Comment on above: Performed By: #### A DIFF, CBC, BMP, ANEU, MG, GFR #### [place] [address] CO2 [Moles/Vol] 25 mmol/L Normal 22-32 [facility] Comment on above: Performed By: #### A DIFF, CBC, BMP, ANEU, MG, GFR #### [place] [address] Creatinine [Mass/Vol] 0.51 mg/dL Low 0.60-1.40 [facility] Comment on above: Result Comment: Test ing performed on Rhytec analyzer using enzymatic creatinine methodology. Performed By: #### A DIFF, CBC, BMP, ANEU, MG, GFR #### [place] [address] Electrolyte Balance 11.0 mEq/L Normal 4.0-15.0 [facility] Comment on above: Performed By: #### A DIFF, CBC, BMP, ANEU, MG, GFR #### [place] [address] Glucose [Mass/Vol] 185 mg/dL High 82-115 [facility] Comment on above: Performed By: #### A DIFF, CBC, BMP, ANEU, MG, GFR #### [place] [address] Potassium [Moles/Vol] 3.5 mmol/L Normal 3.5-5.0 [facility] Comment on above: Performed By: #### A DIFF, CBC, BMP, ANEU, MG, GFR #### [place] [address] Sodium [Moles/Vol] 129 mmol/L Low 136-145 [facility] Comment on above: Performed By: #### A DIFF, CBC, BMP, ANEU, MG, GFR #### [place] [address] Urea nitrogen [Mass/Vol] 15.0 mg/dL Normal 8.0-22.0 [facility] Comment on above: Performed By: #### A DIFF, CBC, BMP, ANEU, MG, GFR #### [place] [address] CBCon 10-24-2024 Erythrocyte distribution width (RBC) [Ratio] 14.1 % Normal 11.5-15.5 [facility] Comment on above: Performed By: #### A DIFF, CBC, BMP, ANEU, MG, GFR #### [place] [address] Hematocrit (Bld) [Volume fraction] 36.1 % Low 40.0-52.0 [facility] Comment on above: Performed By: #### A DIFF, CBC, BMP, ANEU, MG, GFR #### [place] [address] Hgb 12.3 G/dL Low 13.0-17.5 [facility] Comment on above: Performed By: #### A DIFF, CBC, BMP, ANEU, MG, GFR #### [place] [address] MCH (RBC) [Entitic mass] 31.6 pg Normal 27.0-33.0 [facility] Comment on above: Performed By: #### A DIFF, CBC, BMP, ANEU, MG, GFR #### [place] [address] MCHC 34.2 G/dL Normal 32.0-36.0 [facility] Comment on above: Performed By: #### A DIFF, CBC, BMP, ANEU, MG, GFR #### [address] [address] MCV (RBC) [Entitic vol] 92.4 fL Normal 81.0-100.0 [facility] Comment on above: Performed By: #### A DIFF, CBC, BMP, ANEU, MG, GFR #### [place] [address] Platelet 234 10 3/mcL Normal 150-450 [facility] Comment on above: Performed By: #### A DIFF, CBC, BMP, ANEU, MG, GFR #### [place] [address] Platelet mean volume (Bld) [Entitic vol] 7.4 fL Normal 6.4-10.5 [facility] Comment on above: Performed By: #### A DIFF, CBC, BMP, ANEU, MG, GFR #### [place] [address] RBC 3.90 10 6/mcL Low 4.50-6.00 [facility] [facility] Comment on above: Performed By: #### A DIFF, CBC, BMP, ANEU, MG, GFR #### [place] [address] WBC 7.4 10 3/mcL Normal 4.5-10.8 [facility] MAIN Comment on above: Performed By: #### A DIFF, CBC, BMP, ANEU, MG, GFR #### [place] [address] LABORATORYOrdered By: SYSTEM SYSTEM on 10-24-2024 Natriuretic [...] 10-24-2024 Magnesium [Mass/Vol] 1.4 mg/dL Low 1.6-2.4 [facility] MAIN Comment on above: Performed By: #### A DIFF, CBC, BMP, ANEU, MG, GFR #### [place] [address] Magnesium [Mass/Vol] 1.5 mg/dL Low 1.6-2.4 [facility] MAIN Comment on above: Order Comment: no bl ood sent Performed By: #### A DIFF, CBC, BMP, ANEU, MG, GFR #### [place] [address] NAURon 10-24-2024 Sodium [Moles/Vol] 158 mmol/L Normal [facility] MAIN Comment on above: Order Comment: unlab eled cup 10/24/2024 01:34:45 EDT Performed By: #### A DIFF, CBC, BMP, ANEU, MG, GFR #### [place] [address] OSMOUon 10-24-2024 U Osmolality 458 mOsm/kg Normal 390-1090 [facility] MAIN Comment on above: Order Comment: unlab eled cup 10/24/2024 01:34:18 EDT Performed By: #### A DIFF, CBC, BMP, ANEU, MG, GFR #### [place] [address] PBNPon 10-24-2024 Natriuretic peptide B (Bld) [Mass/Vol] 922 pg/mL Normal 0-1800 [facility] MA[facility] Comment on above: Performed By: #### A DIFF, CBC, BMP, ANEU, MG, GFR #### [place] [address] UAon 10-24-2024 Color (U) Yellow Normal [facility] MAIN Comment on above: Order Comment: unlab eled cup 10/24/2024 01:35:19 EDT Performed By: #### U A, UAMIC #### [place] [address] Glucose (U) [Mass/Vol] 250 mg/dL Abnormal Negative [facility] MAIN Comment on above: Order Comment: unlab eled cup 10/24/2024 01:35:19 EDT Performed By: #### U A, UAMIC #### [address] [address] Ketones Ql (U) Negative Normal Neg-Trace [facility] MAIN Comment on above: Order Comment: unlab eled cup 10/24/2024 01:35:19 EDT Performed By: #### U A, UAMIC #### [place] [address] UA Appear Clear Normal Clear [facility] MAIN Comment on above: Order Comment: unlab eled cup 10/24/2024 01:35:19 EDT Performed By: #### U A, UAMIC #### [place] [address] UA Blood Large Abnormal Neg-Trace [facility] MAIN Comment on above: Order Comment: unlab eled cup 10/24/2024 01:35:19 EDT Performed By: #### U A, UAMIC #### [place] [address] UA Leuk Est Trace Normal Negative [facility] MAIN Comment on above: Order Comment: unlab eled cup 10/24/2024 01:35:19 EDT Performed By: #### U A, UAMIC #### [place] [address] UA Nitrite Negative Normal Negative [facility] MAIN Comment on above: Order Comment: unlab eled cup 10/24/2024 01:35:19 EDT Performed By: #### U A, UAMIC #### [place] [address] UA pH >=8.5 Abnormal 5.0 - 8.0 [facility] MAIN Comment on above: Order Comment: unlab eled cup 10/24/2024 01:35:19 EDT Performed By: #### U A, UAMIC #### [place] [address] UA Protein Trace Normal Negative [facility] MAIN Comment on above: Order Comment: unlab eled cup 10/24/2024 01:35:19 EDT Performed By: #### U A, UAMIC #### [address] [address] UA Spec Grav 1.010 Normal 1.006-1.029 [facility] MAIN Comment on above: Order Comment: unlab eled cup 10/24/2024 01:35:19 EDT Performed By: #### U A, UAMIC #### [address] [address] UA Specimen Type Not Given Normal [facility] MAIN Comment on above: Order Comment: unlab eled cup 10/24/2024 01:35:19 EDT Result Comment: Spec imen volumes less than 5 ml may not yield chemical or microscopic results truly reflective of renal function or general metabolic status. Performed By: #### U A UAMIC #### [place] [address] UA Urobilinogen 1.0 E.U./dL Normal 0.2-1.0 [facility] MAIN Comment on above: Order Comment: unlab eled cup 10/24/2024 01:35:19 EDT Performed By: #### U A, UAMIC #### [place] [address] Urobilinogen (U) [Mass/Vol] Negative Normal Neg-Trace [facility] MAIN Comment on above: Order Comment: unlab eled [facility] 10/24/2024 01:35:19 EDT Performed By: #### U A, UAMIC #### [address] [address] UAMICon 10-24-2024 UA Crenated RBCs 10-20 Abnormal [facility] MAIN Comment on above: Performed By: #### U A, UAMIC #### [address] [address] UA RBC 0-2 Normal 0-2 [facility] MAIN Comment on above: Performed By: #### U A, UAMIC #### [address] [address] UA Squam Epithelial 0-2 Normal 0-20 [facility] MAIN Comment on above: Performed By: #### U A, UAMIC #### [place] [address] UA WBC 0-2 Normal 0-5 [facility] MAIN Comment on above: Performed By: #### U Shea UAMIC #### [address] [address] XR CHEST 1 VIEWon 10-24-2024 XR CHEST 1 VIEW ORIGINAL EXAMINATION: Exam Title:ONE XRAY VIEW OF THE CHEST Completed Time: 10/24/2024 3:02 pm Procedure Description:CHEST ONE VIEW AP/PA COMPARISON: October 21, 2024 chest x-ray HISTORY: ORDERING SYSTEM PROVIDED HISTORY: Reason for Exam: crackles bilaterally recent cardiac arrest FINDINGS: Mild cardiomegaly. [id number] pulmonary vascular congestion. Basilar atelectasis. No evidence [...] 10/24/2024 3:04:51 PM Ordering Provider: NATASHA Spangler [facility] .Auto Diffon 10-23-2024 Basophil, Absolute 0.0 10 3/mcL Normal 0.0-0.3 [facility] MAIN Comment on above: Performed By: #### B G #### [address] [address] Basophils/100 WBC (Bld) 0.4 % Normal 0.0-2.5 [facility] MAIN Comment on above: Performed By: #### B G #### [facility] [address] [place] [address] Eosinophil, Absolute 0.1 10 3/mcL Normal 0.0-0.7 [facility] MAIN Comment on above: Performed By: #### B G #### [address] [address] Eosinophils/100 WBC (Bld) 1.1 % Normal 0.0-6.0 [facility] MAIN Comment on above: Performed By: #### B G #### [address] [place], [place] [address] Lymphocyte, Absolute 0.9 10 3/mcL Normal 0.9-4.3 [facility] MAIN Comment on above: Performed By: #### B G #### [facility] [address] [place] [address] Lymphocytes/100 WBC (Bld) 12.3 % Low 20.0-40.0 [facility] MAIN Comment on above: Performed By: #### B G #### [address] [address] Monocyte, Absolute 0.5 10 3/mcL Normal 0.1-1.4 [facility] MAIN Comment on above: Performed By: #### B G #### [address] [address] Monocytes/100 WBC (Bld) 7.5 % Normal 2.0-13.0 [facility] MAIN Comment on above: Performed By: #### B G #### [address] [address] Neutrophils/100 WBC (Bld) 78.7 % High 50.0-75.0 [facility] MAIN Comment on above: Performed By: #### B G #### [address] [address] .GFRon 10-23-2024 Estimated Glomerular Filtration Rate 96 ml/min/1.73sqm Normal [facility] MAIN Comment on above: Result Comment: [...] results. Performed By: #### B G #### [address] [address] .NEUABSon 10-23-2024 Neutrophil, Absolute 5.7 10 3/mcL Normal 2.3-8.1 [facility] MAIN Comment on above: Performed By: #### B G #### [address] [address] BMPon 10-23-2024 BUN/Creatinine Ratio 28.1 ratio High 10.0-22.0 [facility] MAIN Comment on above: Performed By: #### B G #### [address] [address] Calcium [Mass/Vol] 9.2 mg/dL Normal 8.7-10.4 [facility] MAIN Comment on above: Performed By: #### B G #### [place] [id number] Chloride [Moles/Vol] 97 mmol/L Low 98-110 [facility] MAIN Comment on above: Performed By: #### B G #### [place] [id number] CO2 [Moles/Vol] 24 mmol/L Normal 22-32 [facility] MAIN Comment on above: Performed By: #### B G #### [place] [id number] Creatinine [Mass/Vol] 0.57 mg/dL Low 0.60-1.40 [facility] MAIN Comment on above: Result Comment: Test ing performed on Rhytec analyzer using enzymatic creatinine methodology. Performed By: #### B G #### [place] [address] Electrolyte Balance 11.0 mEq/L Normal 4.0-15.0 [facility] MAIN Comment on above: Performed By: #### B G #### [place] [id number] Glucose [Mass/Vol] 127 mg/dL High 82-115 [facility] MAIN Comment on above: Performed By: #### B G #### [address] [address] Potassium [Moles/Vol] 3.6 mmol/L Normal 3.5-5.0 [facility] MAIN Comment on above: Performed By: #### B G #### [place] [id number] Sodium [Moles/Vol] 132 mmol/L Low 136-145 [facility] MAIN Comment on above: Performed By: #### B G #### [place] [id number] Urea nitrogen [Mass/Vol] 16.0 mg/dL Normal 8.0-22.0 [facility] MAIN Comment on above: Performed By: #### B G #### [place] [id number] CBCon 10-23-2024 Erythrocyte distribution width (RBC) [Ratio] 14.3 % Normal 11.5-15.5 [facility] MAIN Comment on above: Performed By: #### B G #### [place] [id number] Hematocrit (Bld) [Volume fraction] 33.8 % Low 40.0-52.0 [facility] MAIN Comment on above: Performed By: #### B G #### [place] [address] Hgb 11.8 G/dL Low 13.0-17.5 [facility] MAIN Comment on above: Performed By: #### B G #### [place] [id number] MCH (RBC) [Entitic mass] 32.5 pg Normal 27.0-33.0 [facility] MAIN Comment on above: Performed By: #### B G #### [place] [address] MCHC 34.9 G/dL Normal 32.0-36.0 [facility] MAIN Comment on above: Performed By: #### B G #### [place] [id number] MCV (RBC) [Entitic vol] 93.2 fL Normal 81.0-100.0 [facility] MAIN Comment on above: Performed By: #### B G #### [place] [id number] Platelet 183 10 3/mcL Normal 150-450 [facility] MAIN Comment on above: Performed By: #### B G #### [facility] [address] [place] [address] Platelet mean volume (Bld) [Entitic vol] 7.6 fL Normal 6.4-10.5 [facility] MAIN Comment on above: Performed By: #### B G #### [facility] [address] [place] [address] RBC 3.62 10 6/mcL Low 4.50-6.00 [facility] MAIN Comment on above: Performed By: #### B G #### [facility] [address] [place] [address] WBC 7.2 10 3/mcL Normal 4.5-10.8 [facility] MAIN Comment on above: Performed By: #### B G #### [facility] [address] [place], [place] [id number] CT HEAD OR BRAIN W/O CONTRAS Ton [...] 10/23/2024 8:49:06 PM Ordering Provider: JUDIT Spangler [facility] MGon 10-23-2024 Magnesium [Mass/Vol] 1.8 mg/dL Normal 1.6-2.4 [facility] MAIN Comment on above: Performed By: #### B G #### [address] [address] .Auto Diffon 10-22-2024 Basophil, Absolute 0.0 10 3/mcL Normal 0.0-0.3 [facility] MAIN Comment on above: Performed By: #### A DIFF, CBC, BMP, ANEU, MG, GFR #### [address] [address] Basophils/100 WBC (Bld) 0.3 % Normal 0.0-2.5 [facility] MAIN Comment on above: Performed By: #### A DIFF, CBC, BMP, ANEU, MG, GFR #### [address] [address] Eosinophil, Absolute 0.0 10 3/mcL Normal 0.0-0.7 [facility] MAIN Comment on above: Performed By: #### A DIFF, CBC, BMP, ANEU, MG, GFR #### [address] [address] Eosinophils/100 WBC (Bld) 0.3 % Normal 0.0-6.0 [facility] MAIN Comment on above: Performed By: #### A DIFF, CBC, BMP, ANEU, MG, GFR #### [address] [address] Lymphocyte, Absolute 0.7 10 3/mcL Low 0.9-4.3 [facility] MAIN Comment on above: Performed By: #### A DIFF, CBC, BMP, ANEU, MG, GFR #### [address] [address] Lymphocytes/100 WBC (Bld) 7.3 % Low 20.0-40.0 [facility] MAIN Comment on above: Performed By: #### A DIFF, CBC, BMP, ANEU, MG, GFR #### [address] [address] Monocyte, Absolute 0.6 10 3/mcL Normal 0.1-1.4 [facility] MAIN Comment on above: Performed By: #### A DIFF, CBC, BMP, ANEU, MG, GFR #### [address] [address] Monocytes/100 WBC (Bld) 5.8 % Normal 2.0-13.0 [facility] MAIN Comment on above: Performed By: #### A DIFF, CBC, BMP, ANEU, MG, GFR #### [address] [address] Neutrophils/100 WBC (Bld) 86.3 % High 50.0-75.0 [facility] MAIN Comment on above: Performed By: #### A DIFF, CBC, BMP, ANEU, MG, GFR #### [address] [address] .GFRon 10-22-2024 Estimated Glomerular Filtration Rate 96 ml/min/1.73sqm Normal [facility] MAIN Comment on above: Result Comment: [...] results. Performed By: #### B G #### [address] [address] .NEUABSon 10-22-2024 Neutrophil, Absolute 8.5 10 3/mcL High 2.3-8.1 [facility] MAIN Comment on above: Performed By: #### A DIFF, CBC, BMP, ANEU, MG, GFR #### [address] [address] B12on 10-22-2024 Cobalamin (Vitamin B12) [Mass/Vol] 255 pg/mL Normal 211-911 [facility] MAIN Comment on above: Performed By: #### U A, UAMIC #### [address] [address] BMPon 10-22-2024 BUN/Creatinine Ratio 24.1 ratio High 10.0-22.0 [facility] MAIN Comment on above: Performed By: #### A DIFF, CBC, BMP, ANEU, MG, GFR #### [place] [address] Calcium [Mass/Vol] 8.9 mg/dL Normal 8.7-10.4 [facility] MAIN Comment on above: Performed By: #### A DIFF, CBC, BMP, ANEU, MG, GFR #### [place] [address] Chloride [Moles/Vol] 94 mmol/L Low 98-110 [facility] MAIN Comment on above: Performed By: #### A DIFF, CBC, BMP, ANEU, MG, GFR #### [place] [address] CO2 [Moles/Vol] 26 mmol/L Normal 22-32 [facility] MAIN Comment on above: Performed By: #### A DIFF, CBC, BMP, ANEU, MG, GFR #### [place] [id number] Creatinine [Mass/Vol] 0.58 mg/dL Low 0.60-1.40 [facility] MAIN Comment on above: Result Comment: Test ing performed on Rhytec analyzer using enzymatic creatinine methodology. Performed By: #### A DIFF, CBC, BMP, ANEU, MG, GFR #### [place] [id number] Electrolyte Balance 9.0 mEq/L Normal 4.0-15.0 [facility] MAIN Comment on above: Performed By: #### A DIFF, CBC, BMP, ANEU, MG, GFR #### [place] [id number] Glucose [Mass/Vol] 135 mg/dL High 82-115 [facility] MAIN Comment on above: Performed By: #### A DIFF, CBC, BMP, ANEU, MG, GFR #### [place] [id number] Potassium [Moles/Vol] 3.4 mmol/L Low 3.5-5.0 [facility] MAIN Comment on above: Performed By: #### A DIFF, CBC, BMP, ANEU, MG, GFR #### [place] [id number] Sodium [Moles/Vol] 129 mmol/L Low 136-145 [facility] MAIN Comment on above: Performed By: #### A DIFF, CBC, BMP, ANEU, MG, GFR #### [place] [address] Urea nitrogen [Mass/Vol] 14.0 mg/dL Normal 8.0-22.0 [facility] MAIN Comment on above: Performed By: #### A DIFF, CBC, BMP, ANEU, MG, GFR #### [place] [address] CBCon 10-22-2024 Erythrocyte distribution width (RBC) [Ratio] 14.0 % Normal 11.5-15.5 [facility] MAIN Comment on above: Performed By: #### A DIFF, CBC, BMP, ANEU, MG, GFR #### [place] [id number] Hematocrit (Bld) [Volume fraction] 35.0 % Low 40.0-52.0 [facility] MAIN Comment on above: Performed By: #### A DIFF, CBC, BMP, ANEU, MG, GFR #### [place] [address] Hgb 12.1 G/dL Low 13.0-17.5 [facility] MAIN Comment on above: Performed By: #### A DIFF, CBC, BMP, ANEU, MG, GFR #### [place] [address] MCH (RBC) [Entitic mass] 31.8 pg Normal 27.0-33.0 [facility] MAIN Comment on above: Performed By: #### A DIFF, CBC, BMP, ANEU, MG, GFR #### [place] [address] MCHC 34.5 G/dL Normal 32.0-36.0 [facility] MA[facility] Comment on above: Performed By: #### A DIFF, CBC, BMP, ANEU, MG, GFR #### [place] [address] MCV (RBC) [Entitic vol] 92.1 fL Normal 81.0-100.0 [facility] MAIN Comment on above: Performed By: #### A DIFF, CBC, BMP, ANEU, MG, GFR #### [place] [address] Platelet 202 10 3/mcL Normal 150-450 [facility] MAIN Comment on above: Performed By: #### A DIFF, CBC, BMP, ANEU, MG, GFR #### [place] [address] Platelet mean volume (Bld) [Entitic vol] 7.6 fL Normal 6.4-10.5 [facility] MAIN Comment on above: Performed By: #### A DIFF, CBC, BMP, ANEU, MG, GFR #### [place] [address] RBC 3.80 10 6/mcL Low 4.50-6.00 [facility] MAIN Comment on above: Performed By: #### A DIFF, CBC, BMP, ANEU, MG, GFR #### [place] [address] WBC 9.8 10 3/mcL Normal 4.5-10.8 [facility] MAIN Comment on above: Performed By: #### A DIFF, CBC, BMP, ANEU, MG, GFR #### [place] [address] LABORATORYOrdered By: SYSTEM SYSTEM on 10-22-2024 Cobalamin (Vitamin B12) [Mass/Vol] 255 pg/mL Normal 211 - 911 pg/mL ADM SS MGon 10-22-2024 Magnesium [Mass/Vol] 1.9 mg/dL Normal 1.6-2.4 [facility] MAIN Comment on above: Performed By: #### B G #### [address] [address] MRI BRAIN W/O CONTRASTon MRI BRAIN W/O [...] 10/22/2024 5:41:11 PM Ordering Provider: [place] Spangler [facility] .Auto Diffon 10-21-2024 Basophil, Absolute 0.0 10 3/mcL Normal 0.0-0.3 [facility] MAIN Comment on above: Performed By: #### A DIFF, CBC, BMP, ANEU, MG, GFR #### [place] [id number] [place] [address] Basophils/100 WBC (Bld) 0.1 % Normal 0.0-2.5 [facility] MAIN Comment on above: Performed By: #### A DIFF, CBC, BMP, ANEU, MG, GFR #### [address] [address] Eosinophil, Absolute 0.0 10 3/mcL Normal 0.0-0.7 [facility] MAIN Comment on above: Performed By: #### A DIFF, CBC, BMP, ANEU, MG, GFR #### [address] [address] Eosinophils/100 WBC (Bld) 0.1 % Normal 0.0-6.0 [facility] MAIN Comment on above: Performed By: #### A DIFF, CBC, BMP, ANEU, MG, GFR #### [address] [address] Lymphocyte, Absolute 0.6 10 3/mcL Low 0.9-4.3 [facility] MAIN Comment on above: Performed By: #### A DIFF, CBC, BMP, ANEU, MG, GFR #### [address] [address] Lymphocytes/100 WBC (Bld) 5.0 % Low 20.0-40.0 [facility] MAIN Comment on above: Performed By: #### A DIFF, CBC, BMP, ANEU, MG, GFR #### [address] [address] Monocyte, Absolute 0.8 10 3/mcL Normal 0.1-1.4 [facility] MAIN Comment on above: Performed By: #### A DIFF, CBC, BMP, ANEU, MG, GFR #### [address] [address] Monocytes/100 WBC (Bld) 6.0 % Normal 2.0-13.0 [facility] MAIN Comment on above: Performed By: #### A DIFF, CBC, BMP, ANEU, MG, GFR #### [address] [address] Neutrophils/100 WBC (Bld) 88.8 % High 50.0-75.0 [facility] MAIN Comment on above: Performed By: #### A DIFF, CBC, BMP, ANEU, MG, GFR #### [address] [address] Basophil, Absolute 0.0 10 3/mcL Normal 0.0-0.3 [facility] MAIN Comment on above: Performed By: #### A DIFF, CBC, BMP, ANEU, MG, GFR #### [address] [address] Basophils/100 WBC (Bld) 0.1 % Normal 0.0-2.5 [facility] MAIN Comment on above: Performed By: #### A DIFF, CBC, BMP, ANEU, MG, GFR #### [address] [address] Eosinophil, Absolute 0.0 10 3/mcL Normal 0.0-0.7 [facility] MAIN Comment on above: Performed By: #### A DIFF, CBC, BMP, ANEU, MG, GFR #### [address] [address] Eosinophils/100 WBC (Bld) 0.0 % Normal 0.0-6.0 [facility] MAIN Comment on above: Performed By: #### A DIFF, CBC, BMP, ANEU, MG, GFR #### [address] [address] Lymphocyte, Absolute 0.7 10 3/mcL Low 0.9-4.3 [facility] MAIN Comment on above: Performed By: #### A DIFF, CBC, BMP, ANEU, MG, GFR #### [address] [address] Lymphocytes/100 WBC (Bld) 5.7 % Low 20.0-40.0 [facility] MAIN Comment on above: Performed By: #### A DIFF, CBC, BMP, ANEU, MG, GFR #### [address] [address] Monocyte, Absolute 0.7 10 3/mcL Normal 0.1-1.4 [facility] MAIN Comment on above: Performed By: #### A DIFF, CBC, BMP, ANEU, MG, GFR #### [address] [address] Monocytes/100 WBC (Bld) 5.8 % Normal 2.0-13.0 [facility] MAIN Comment on above: Performed By: #### A DIFF, CBC, BMP, ANEU, MG, GFR #### [address] [address] Neutrophils/100 WBC (Bld) 88.4 % High 50.0-75.0 [facility] MA[facility] Comment on above: Performed By: #### A DIFF, CBC, BMP, ANEU, MG, GFR #### [address] [address] .GFRon 10-21-2024 Estimated Glomerular Filtration Rate 87 ml/min/1.73sqm [facility] MAIN Comment on above: Result Comment: Stages [...] DIFF, CBC, BMP, ANEU, MG, GFR #### [address] [address] Estimated Glomerular Filtration Rate 93 ml/min/1.73sqm [facility] MAIN Comment on above: Result Comment: Stages [...] DIFF, CBC, BMP, ANEU, MG, GFR #### [place] [address] .NEUABSon 10-21-2024 Neutrophil, Absolute 11.3 10 3/mcL High 2.3-8.1 [facility] MAIN Comment on above: Performed By: #### A DIFF, CBC, BMP, ANEU, MG, GFR #### [place] [address] Neutrophil, Absolute 10.5 10 3/mcL High 2.3-8.1 [facility] MAIN Comment on above: Performed By: #### A DIFF, CBC, BMP, ANEU, MG, GFR #### [place] [address] BGon 10-21-2024 Base excess Calc (Bld) [Moles/Vol] -5.8000 mmol/L Normal [facility] MAIN Comment on above: Performed By: #### A DIFF, CBC, BMP, ANEU, MG, GFR #### [place] [address] CO2 [Moles/Vol] 19.2 mmol/L Low 22.0-30.0 [facility] MAIN Comment on above: Performed By: #### A DIFF, CBC, BMP, ANEU, MG, GFR #### [place] [address] HCO3 (Bld) [Moles/Vol] 18.2 mmol/L Low 21.0-29.0 [facility] MAIN Comment on above: Performed By: #### A DIFF, CBC, BMP, ANEU, MG, GFR #### [place] [address] Oxygen (Bld) [Partial pressure] 139.2 mm[Hg] High 74.0-108.0 [facility] MAIN Comment on above: Performed By: #### A DIFF, CBC, BMP, ANEU, MG, GFR #### [place] [address] Oxygen saturation in Blood 99.1 % High 92.0-96.0 [facility] MA[facility] Comment on above: Performed By: #### A DIFF, CBC, BMP, ANEU, MG, GFR #### [place] [address] pCO2 31.9 mmHg Low 32.0-46.0 [facility] MAIN Comment on above: Performed By: #### A DIFF, CBC, BMP, ANEU, MG, GFR #### [address] [address] pH (Bld) 7.375 [pH] Low 7.380-7.460 [facility] MAIN Comment on above: Performed By: #### A DIFF, CBC, BMP, ANEU, MG, GFR #### [place] [address] BMPon 10-21-2024 BUN/Creatinine Ratio 20.3 ratio Normal 10.0-22.0 [facility] MAIN Comment on above: Performed By: #### A DIFF, CBC, BMP, ANEU, MG, GFR #### [place] [address] Calcium [Mass/Vol] 9.5 mg/dL Normal 8.7-10.4 [facility] Comment on above: Performed By: #### A DIFF, CBC, BMP, ANEU, MG, GFR #### [place] [address] Chloride [Moles/Vol] 92 mmol/L Low 98-110 [facility] Comment on above: Performed By: #### A DIFF, CBC, BMP, ANEU, MG, GFR #### [place] [address] CO2 [Moles/Vol] 20 mmol/L Low 22-32 [facility] Comment on above: Performed By: #### A DIFF, CBC, BMP, ANEU, MG, GFR #### [place] [id number] Creatinine [Mass/Vol] 0.64 mg/dL Normal 0.60-1.40 [facility] Comment on above: Result Comment: Test ing performed on Rhytec analyzer using enzymatic creatinine methodology. Performed By: #### A DIFF, CBC, BMP, ANEU, MG, GFR #### [place] [id number] Electrolyte Balance 15.0 mEq/L Normal 4.0-15.0 [facility] Comment on above: Performed By: #### A DIFF, CBC, BMP, ANEU, MG, GFR #### [place] [address] Glucose [Mass/Vol] 145 mg/dL High 82-115 [facility] Comment on above: Performed By: #### A DIFF, CBC, BMP, ANEU, MG, GFR #### [place] [id number] Potassium [Moles/Vol] 3.6 mmol/L Normal 3.5-5.0 [facility] Comment on above: Performed By: #### A DIFF, CBC, BMP, ANEU, MG, GFR #### [place] [id number] Sodium [Moles/Vol] 127 mmol/L Low 136-145 [facility] MAIN Comment on above: Performed By: #### A DIFF, CBC, BMP, ANEU, MG, GFR #### [place] [address] Urea nitrogen [Mass/Vol] 13.0 mg/dL Normal 8.0-22.0 [facility] MAIN Comment on above: Performed By: #### A DIFF, CBC, BMP, ANEU, MG, GFR #### [place] [id number] [facility] 10-21-2024 Erythrocyte distribution width (RBC) [Ratio] 14.1 % Normal 11.5-15.5 [facility]IN Comment on above: Performed By: #### A DIFF, CBC, BMP, ANEU, MG, GFR #### [place] [address] Hematocrit (Bld) [Volume fraction] 39.5 % Low 40.0-52.0 [facility] Comment on above: Performed By: #### A DIFF, CBC, BMP, ANEU, MG, GFR #### [place] [address] Hgb 13.5 G/dL Normal 13.0-17.5 [facility] Comment on above: Performed By: #### A DIFF, CBC, BMP, ANEU, MG, GFR #### [address] [address] MCH (RBC) [Entitic mass] 31.7 pg Normal 27.0-33.0 [facility] Comment on above: Performed By: #### A DIFF, CBC, BMP, ANEU, MG, GFR #### [place] [id number] MCHC 34.2 G/dL Normal 32.0-36.0 [facility] Comment on above: Performed By: #### A DIFF, CBC, BMP, ANEU, MG, GFR #### [place] [id number] MCV (RBC) [Entitic vol] 92.6 fL Normal 81.0-100.0 [facility] MAIN Comment on above: Performed By: #### A DIFF, CBC, BMP, ANEU, MG, GFR #### [place] [address] Platelet 262 10 3/mcL Normal 150-450 [facility] Comment on above: Performed By: #### A DIFF, CBC, BMP, ANEU, MG, GFR #### [place] [address] Platelet mean volume (Bld) [Entitic vol] 7.6 fL Normal 6.4-10.5 [facility] Comment on above: Performed By: #### A DIFF, CBC, BMP, ANEU, MG, GFR #### [place] [id number] RBC 4.27 10 6/mcL Low 4.50-6.00 [facility] Comment on above: Performed By: #### A DIFF, CBC, BMP, ANEU, MG, GFR #### [place] [id number] WBC 12.8 10 3/mcL High 4.5-10.8 [facility] Comment on above: Performed By: #### A DIFF, CBC, BMP, ANEU, MG, GFR #### [place] [address] Erythrocyte distribution width (RBC) [Ratio] 13.9 % Normal 11.5-15.5 [facility] Comment on above: Performed By: #### A DIFF, CBC, BMP, ANEU, MG, GFR #### [place] [address] Hematocrit (Bld) [Volume fraction] 39.8 % Low 40.0-52.0 [facility] Comment on above: Performed By: #### A DIFF, CBC, BMP, ANEU, MG, GFR #### [place] [address] Hgb 13.6 G/dL Normal 13.0-17.5 [facility] Comment on above: Performed By: #### A DIFF, CBC, BMP, ANEU, MG, GFR #### [place] [address] MCH (RBC) [Entitic mass] 31.9 pg Normal 27.0-33.0 [facility] Comment on above: Performed By: #### A DIFF, CBC, BMP, ANEU, MG, GFR #### [place] [address] MCHC 34.3 G/dL Normal 32.0-36.0 [facility] Comment on above: Performed By: #### A DIFF, CBC, BMP, ANEU, MG, GFR #### [place] [address] MCV (RBC) [Entitic vol] 93.0 fL Normal 81.0-100.0 [facility] MAIN Comment on above: Performed By: #### A DIFF, CBC, BMP, ANEU, MG, GFR #### [place] [address] Platelet 252 10 3/mcL Normal 150-450 [facility] Comment on above: Performed By: #### A DIFF, CBC, BMP, ANEU, MG, GFR #### [place] [address] Platelet mean volume (Bld) [Entitic vol] 7.9 fL Normal 6.4-10.5 [facility] Comment on above: Performed By: #### A DIFF, CBC, BMP, ANEU, MG, GFR #### [place] [address] RBC 4.28 10 6/mcL Low 4.50-6.00 [facility] Comment on above: Performed By: #### A DIFF, CBC, BMP, ANEU, MG, GFR #### [place] [id number] WBC 11.9 10 3/mcL High 4.5-10.8 [facility] Comment on above: Performed By: #### A DIFF, CBC, BMP, ANEU, MG, GFR #### [place] [id number] CMPon 10-21-2024 Albumin Level 4.0 G/dL Normal 3.2-4.8 [facility] Comment on above: Performed By: #### A DIFF, CBC, BMP, ANEU, MG, GFR #### [place] [address] Albumin/Globulin [Mass ratio] 1.5 {ratio} Normal 0.9-1.6 [facility] Comment on above: Performed By: #### A DIFF, CBC, BMP, ANEU, MG, GFR #### [place] [address] ALP [Catalytic activity/Vol] 73 U/L Normal 38-126 [facility] Comment on above: Performed By: #### A DIFF, CBC, BMP, ANEU, MG, GFR #### [place] [address] ALT [Catalytic activity/Vol] 22 U/L Normal 12-55 [facility] Comment on above: Performed By: #### A DIFF, CBC, BMP, ANEU, MG, GFR #### [place] [address] AST [Catalytic activity/Vol] 32 U/L Normal 8-34 [facility] Comment on above: Performed By: #### A DIFF, CBC, BMP, ANEU, MG, GFR #### [place] [address] Bili Total 0.70 mg/dL Normal 0.20-1.20 [facility] MA[facility] Comment on above: Result Comment: Use of this assay is not recommended for patients undergoing treatment with eltrombopag due to the potential for falsely elevated results. Performed By: #### A DIFF, CBC, BMP, ANEU, MG, GFR #### [place] [id number] BUN/Creatinine Ratio 22.8 ratio High 10.0-22.0 [facility] MAIN Comment on above: Performed By: #### A DIFF, CBC, BMP, ANEU, MG, GFR #### [place] [id number] Calcium [Mass/Vol] 9.3 mg/dL Normal 8.7-10.4 [facility] MAIN Comment on above: Performed By: #### A DIFF, CBC, BMP, ANEU, MG, GFR #### [place] [id number] Chloride [Moles/Vol] 92 mmol/L Low 98-110 [facility] MAIN Comment on above: Performed By: #### A DIFF, CBC, BMP, ANEU, MG, GFR #### [place] [id number] CO2 [Moles/Vol] 21 mmol/L Low 22-32 [facility] Comment on above: Performed By: #### A DIFF, CBC, BMP, ANEU, MG, GFR #### [place] [address] Creatinine [Mass/Vol] 0.79 mg/dL Normal 0.60-1.40 [facility] MAIN Comment on above: Result Comment: Test ing performed on Rhytec analyzer using enzymatic creatinine methodology. Performed By: #### A DIFF, CBC, BMP, ANEU, MG, GFR #### [place] [address] Electrolyte Balance 13.0 mEq/L Normal 4.0-15.0 [facility] MAIN Comment on above: Performed By: #### A DIFF, CBC, BMP, ANEU, MG, GFR #### [place] [id number] Globulin 2.7 G/dL Normal 2.5-4.2 [facility] Comment on above: Performed By: #### A DIFF, CBC, BMP, ANEU, MG, GFR #### [place] [id number] Glucose [Mass/Vol] 182 mg/dL High 82-115 [facility] MAIN Comment on above: Performed By: #### A DIFF, CBC, BMP, ANEU, MG, GFR #### [address] [address] Potassium [Moles/Vol] 3.9 mmol/L Normal 3.5-5.0 [facility] MAIN Comment on above: Performed By: #### A DIFF, CBC, BMP, ANEU, MG, GFR #### [address] [address] Sodium [Moles/Vol] 126 mmol/L Low 136-145 [facility] MAIN Comment on above: Performed By: #### A DIFF, CBC, BMP, ANEU, MG, GFR #### [address] [address] Total Protein 6.7 G/dL Normal 5.7-8.2 [facility] Comment on above: Performed By: #### A DIFF, CBC, BMP, ANEU, MG, GFR #### [address] [address] Urea nitrogen [Mass/Vol] 18.0 mg/dL Normal 8.0-22.0 [facility] Comment on above: Performed By: #### A DIFF, CBC, BMP, ANEU, MG, GFR #### [address] [address] LABORATORYOrdered By: SYSTEM SYSTEM on 10-21-2024 Troponin I.cardiac DL <= 0.01 ng/mL [Mass/Vol] 18 ng/L Normal 0 - 54 ng/L [facility] Comment on above: Interpretive Data: High Sensitive Troponin I Reference Ranges: Female: 0-34 ng/L Male: 0-54 ng/L Testing performed on SkilledWizard analyzer using direct chemiluminescent technology. LABORATORYOrdered By: [...] Sensitivity Troponin I 18 ng/L Normal 0-54 [facility] MAIN Comment on above: Order Comment: Pls a dd on to the samples drawn this afternoon if possible. Result Comment: High Sensitive Troponin I Reference Ranges: Female: 0-34 ng/L Male: 0-54 ng/L Testing performed on SkilledWizard analyzer using direct chemiluminescent technology. Performed By: #### A DIFF, CBC, BMP, ANEU, MG, GFR #### [address] [address] XR ENTERIC TUBE PLACEMENTon 10-21-2024 XR ENTERIC [...] 10/21/2024 3:45:47 PM Ordering Provider: LUIS Spangler [facility] MA[facility] .Auto Diffon 10-20-2024 Basophil, Absolute 0.0 10 3/mcL Normal 0.0-0.3 [facility] MAIN Comment on above: Performed By: #### A DIFF, CBC, BMP, ANEU, MG, GFR #### [address] [address] Basophils/100 WBC (Bld) 0.1 % Normal 0.0-2.5 [facility] MAIN Comment on above: Performed By: #### A DIFF, CBC, BMP, ANEU, MG, GFR #### [address] [address] Eosinophils/100 WBC (Bld) 0.1 % Normal 0.0-6.0 [facility] Comment on above: Performed By: #### A DIFF, CBC, BMP, ANEU, MG, GFR #### [address] [address] Lymphocyte, Absolute 0.6 10 3/mcL Low 0.9-4.3 [facility] MAIN Comment on above: Performed By: #### A DIFF, CBC, BMP, ANEU, MG, GFR #### [address] [address] Lymphocytes/100 WBC (Bld) 5.6 % Low 20.0-40.0 [facility] Comment on above: Performed By: #### A DIFF, CBC, BMP, ANEU, MG, GFR #### [address] [address] Monocyte, Absolute 0.5 10 3/mcL Normal 0.1-1.4 [facility] MAIN Comment on above: Performed By: #### A DIFF, CBC, BMP, ANEU, MG, GFR #### [address] [address] Monocytes/100 WBC (Bld) 5.2 % Normal 2.0-13.0 [facility] MAIN Comment on above: Performed By: #### A DIFF, CBC, BMP, ANEU, MG, GFR #### [address] [address] Neutrophils/100 WBC (Bld) 89.0 % High 50.0-75.0 [facility] MA[facility] Comment on above: Performed By: #### A DIFF, CBC, BMP, ANEU, MG, GFR #### [address] [address] Basophil, Absolute 0.0 10 3/mcL Normal 0.0-0.3 [facility] Comment on above: Performed By: #### F ERR, CBC, FE, ANEU, ADIFF #### [address] [address] Lymphocyte, Absolute 0.8 10 3/mcL Low 0.9-4.3 [facility] Comment on above: Performed By: #### F ERR, CBC, FE, ANEU, ADIFF #### [place] [id number] Monocyte, Absolute 0.5 10 3/mcL Normal 0.1-1.4 [facility] Comment on above: Performed By: #### F ERR, CBC, FE, ANEU, ADIFF #### [address] [address] .Auto DiffOrdered By: SYSTEM SYSTEM on 10-20-2024 Basophils/100 WBC (Bld) 0.4 % Normal 0.0-2.5 A O Workflow SS Comment on above: Performed By: #### F ERR, CBC, FE, ANEU, ADIFF #### [address] [address] Eosinophil, Absolute 0.0 103/mcL Normal 0.0-0.7 AO Workflow SS Comment on above: Performed By: #### F ERR, CBC, FE, ANEU, ADIFF #### [address] [address] Performed By: #### A DIFF, CBC, BMP, ANEU, MG, GFR #### [address] [address] Eosinophils/100 WBC (Bld) 0.4 % Normal 0.0-6.0 AO Workflow SS Comment on above: Performed By: #### F ERR, CBC, FE, ANEU, ADIFF #### [address] [address] Lymphocytes/100 WBC (Bld) 13.4 % Low 20.0-40.0 AO Workflow SS Comment on above: Performed By: #### F ERR, CBC, FE, ANEU, ADIFF #### [place] [id number] Monocytes/100 WBC (Bld) 9.1 % Normal 2.0-13.0 A O Workflow SS Comment on above: Performed By: #### F ERR, CBC, FE, ANEU, ADIFF #### [place] [address] [place], [place] [address] Neutrophils/100 WBC (Bld) 76.7 % High 50.0-75.0 AO Workflow SS Comment on above: Performed By: #### F ERR, CBC, FE, ANEU, ADIFF #### [place] [address] [place], [place] [address] .GFRon 10-20-2024 Estimated Glomerular Filtration Rate 99 ml/min/1.73sqm [facility] MAIN Comment on above: Result Comment: Stages [...] DIFF, CBC, BMP, ANEU, MG, GFR #### [address] [address] Estimated Glomerular Filtration Rate 97 ml/min/1.73sqm [facility] Comment on above: Result Comment: Stages of [...] F ERR, CBC, FE, ANEU, ADIFF #### [address] [address] .GFROrdered By: KRISTIN Noyola on 10-20-2024 Estimated [...] F ERR, CBC, FE, ANEU, ADIFF #### [address] [address] .MDWon 10-20-2024 Monocyte Distribution Width 17.30 Normal 0.00-20.00 [facility] Comment on above: Result Comment: For ED adult patients suspected of sepsis, MDW<=20.0 does not rule out sepsis or risk of sepsis Performed By: #### F ERR, CBC, FE, ANEU, ADIFF #### [address] [address] .NEUABSon 10-20-2024 Neutrophil, Absolute 9.0 10 3/mcL High 2.3-8.1 [facility] MAIN Comment on above: Performed By: #### A DIFF, CBC, BMP, ANEU, MG, GFR #### [address] [address] Neutrophil, Absolute 4.5 10 3/mcL Normal 2.3-8.1 [facility] Comment on above: Performed By: #### F ERR, CBC, FE, ANEU, ADIFF #### [facility] [address] [place], [place] [address] BMPon 10-20-2024 BUN/Creatinine Ratio 19.2 ratio Normal 10.0-22.0 [facility] MAIN Comment on above: Performed By: #### A DIFF, CBC, BMP, ANEU, MG, GFR #### [address] [address] Calcium [Mass/Vol] 9.3 mg/dL Normal 8.7-10.4 [facility] MAIN Comment on above: Performed By: #### A DIFF, CBC, BMP, ANEU, MG, GFR #### [address] [address] Chloride [Moles/Vol] 92 mmol/L Low 98-110 [facility] MAIN Comment on above: Performed By: #### A DIFF, CBC, BMP, ANEU, MG, GFR #### [address] [address] CO2 [Moles/Vol] 22 mmol/L Normal 22-32 [facility] Comment on above: Performed By: #### A DIFF, CBC, BMP, ANEU, MG, GFR #### [address] [address] Creatinine [Mass/Vol] 0.52 mg/dL Low 0.60-1.40 [facility] MAIN Comment on above: Result Comment: Test ing performed on Rhytec analyzer using enzymatic creatinine methodology. Performed By: #### A DIFF, CBC, BMP, ANEU, MG, GFR #### [address] [address] Electrolyte Balance 13.0 mEq/L Normal 4.0-15.0 [facility] MAIN Comment on above: Performed By: #### A DIFF, CBC, BMP, ANEU, MG, GFR #### [address] [address] Glucose [Mass/Vol] 151 mg/dL High 82-115 [facility] MAIN Comment on above: Performed By: #### A DIFF, CBC, BMP, ANEU, MG, GFR #### [address] [address] Potassium [Moles/Vol] 3.6 mmol/L Normal 3.5-5.0 [facility] MAIN Comment on above: Performed By: #### A DIFF, CBC, BMP, ANEU, MG, GFR #### [address] [address] Sodium [Moles/Vol] 127 mmol/L Low 136-145 [facility] MAIN Comment on above: Performed By: #### A DIFF, CBC, BMP, ANEU, MG, GFR #### [address] [address] Urea nitrogen [Mass/Vol] 10.0 mg/dL Normal 8.0-22.0 [facility] Comment on above: Performed By: #### A DIFF, CBC, BMP, ANEU, MG, GFR #### [address] [address] BUN/Creatinine Ratio 20 ratio Normal 7-27 [facility] Comment on above: Performed By: #### F ERR, CBC, FE, ANEU, ADIFF #### [address] [address] Calcium [Mass/Vol] 8.8 mg/dL Normal 8.4-10.2 [facility] Comment on above: Performed By: #### F ERR, CBC, FE, ANEU, ADIFF #### [address] [address] Chloride [Moles/Vol] 90 mmol/L Low 98-107 [facility] Comment on above: Performed By: #### F ERR, CBC, FE, ANEU, ADIFF #### [address] [address] CO2 [Moles/Vol] 28 mmol/L Normal 23-31 [facility] Comment on above: Performed By: #### F ERR, CBC, FE, ANEU, ADIFF #### [address] [address] Creatinine [Mass/Vol] 0.56 mg/dL Low 0.67-1.17 [facility] Comment on above: Performed By: #### F ERR, CBC, FE, ANEU, ADIFF #### [address] [address] Electrolyte Balance 5.0 mEq/L Normal 4.0-15.0 [facility] Comment on above: Performed By: #### F ERR, CBC, FE, ANEU, ADIFF #### [address] [address] Glucose [Mass/Vol] 140 mg/dL High 83-110 [facility] Comment on above: Performed By: #### F ERR, CBC, FE, ANEU, ADIFF #### [address] [address] Potassium [Moles/Vol] 3.8 mmol/L Normal 3.5-5.1 [facility] Comment on above: Performed By: #### F ERR, CBC, FE, ANEU, ADIFF #### [address] [address] Sodium [Moles/Vol] 123 mmol/L Low 136-145 [facility] Comment on above: Performed By: #### F ERR, CBC, FE, ANEU, ADIFF #### [address] [address] Urea nitrogen [Mass/Vol] 11 mg/dL Normal 7-18 [facility] Comment on above: Performed By: #### F ERR, CBC, FE, ANEU, ADIFF #### [address] [address] CBCon 10-20-2024 Erythrocyte distribution width (RBC) [Ratio] 13.9 % Normal 11.5-15.5 [facility] Comment on above: Performed By: #### A DIFF, CBC, BMP, ANEU, MG, GFR #### [place] [address] Hematocrit (Bld) [Volume fraction] 38.7 % Low 40.0-52.0 [facility] Comment on above: Performed By: #### A DIFF, CBC, BMP, ANEU, MG, GFR #### [place] [address] Hgb 13.1 G/dL Normal 13.0-17.5 [facility] Comment on above: Performed By: #### A DIFF, CBC, BMP, ANEU, MG, GFR #### [place] [id number] MCH (RBC) [Entitic mass] 31.5 pg Normal 27.0-33.0 [facility] Comment on above: Performed By: #### A DIFF, CBC, BMP, ANEU, MG, GFR #### [place] [address] MCHC 33.8 G/dL Normal 32.0-36.0 [facility] Comment on above: Performed By: #### A DIFF, CBC, BMP, ANEU, MG, GFR #### [place] [address] MCV (RBC) [Entitic vol] 93.0 fL Normal 81.0-100.0 [facility] MAIN Comment on above: Performed By: #### A DIFF, CBC, BMP, ANEU, MG, GFR #### [place] [address] Platelet 235 10 3/mcL Normal 150-450 [facility] Comment on above: Performed By: #### A DIFF, CBC, BMP, ANEU, MG, GFR #### [place] [address] Platelet mean volume (Bld) [Entitic vol] 7.5 fL Normal 6.4-10.5 [facility] Comment on above: Performed By: #### A DIFF, CBC, BMP, ANEU, MG, GFR #### [address] [place], [place] [address] RBC 4.16 10 6/mcL Low 4.50-6.00 [facility] Comment on above: Performed By: #### A DIFF, CBC, BMP, ANEU, MG, GFR #### [facility] [address] [place] [address] WBC 10.1 10 3/mcL Normal 4.5-10.8 [facility] Comment on above: Performed By: #### A DIFF, CBC, BMP, ANEU, MG, GFR #### [facility] [address] [place] [address] Hgb 12.7 G/dL Low 13.0-17.5 [facility] Comment on above: Performed By: #### F ERR, CBC, FE, ANEU, ADIFF #### [address] [address] Platelet 202 10 3/mcL Normal 150-450 [facility] Comment on above: Performed By: #### F ERR, CBC, FE, ANEU, ADIFF #### [address] [address] RBC 3.92 10 6/mcL Low 4.50-6.00 [facility] Comment on above: Performed By: #### F ERR, CBC, FE, ANEU, ADIFF #### [address] [address] WBC 5.9 10 3/mcL Normal 4.5-10.8 [facility] Comment on above: Performed By: #### F ERR, CBC, FE, ANEU, ADIFF #### [address] [address] CBCOrdered By: SYSTEM SYSTEM on 10-20-2024 Erythrocyte distribution width (RBC) [Ratio] 14.1 % Normal 11.5-15.5 AO Workflow SS Comment on above: Performed By: #### F ERR, CBC, FE, ANEU, ADIFF #### [address] [address] Hematocrit (Bld) [Volume fraction] 36.4 % Low 40.0-52.0 AO Workflow SS Comment on above: Performed By: #### F ERR, CBC, FE, ANEU, ADIFF #### [place] [address] MCH (RBC) [Entitic mass] 32.3 pg Normal 27.0-33.0 AO Workflow SS Comment on above: Performed By: #### F ERR, CBC, FE, ANEU, ADIFF #### [place] [address] MCHC 34.8 G/dL Normal 32.0-36.0 AO Workflow SS Comment on above: Performed By: #### F ERR, CBC, FE, ANEU, ADIFF #### [place] [address] MCV (RBC) [Entitic vol] 92.8 fL Normal 81.0-100.0 A O Workflow SS Comment on above: Performed By: #### F ERR, CBC, FE, ANEU, ADIFF #### [place] [address] Platelet mean volume (Bld) [Entitic vol] 7.3 fL Normal 6.4-10.5 AO Workflow SS Comment on above: Performed By: #### F ERR, CBC, FE, ANEU, ADIFF #### [place] [address] CMPon 10-20-2024 Albumin Level 4.0 G/dL Normal 3.4-4.8 [facility] Comment on above: Performed By: #### F ERR, CBC, FE, ANEU, ADIFF #### [place] [address] ALT [Catalytic activity/Vol] 20 U/L Normal 16-63 [facility] Comment on above: Performed By: #### F ERR, CBC, FE, ANEU, ADIFF #### [place] [address] AST [Catalytic activity/Vol] 25 U/L Normal 10-40 [facility] Comment on above: Performed By: #### F ERR, CBC, FE, ANEU, ADIFF #### [place] [id number] Bili Total 0.6 mg/dL Normal 0.2-1.0 [facility] Comment on above: Result Comment: Use of this assay is not recommended for patients undergoing treatment with eltrombopag due to the potential for falsely elevated results. Performed By: #### F ERR, CBC, FE, ANEU, ADIFF #### [address] [address] BUN/Creatinine Ratio 19 ratio Normal 7-27 [facility] Comment on above: Performed By: #### F ERR, CBC, FE, ANEU, ADIFF #### [address] [address] Total Protein 7.1 G/dL Normal 6.4-8.2 [facility] Comment on above: Performed By: #### F ERR, CBC, FE, ANEU, ADIFF #### [address] [address] Urea nitrogen [Mass/Vol] 11 mg/dL Normal 7-18 [facility] Comment on above: Performed By: #### F ERR, CBC, FE, ANEU, ADIFF #### [address] [address] CMPOrdered By: SYSTEM SYSTEM on 10-20-2024 Albumin/Globulin [Mass ratio] 1.3 {ratio} Normal 1.1-2.5 AO ADM SS Comment on above: Performed By: #### F ERR, CBC, FE, ANEU, ADIFF #### [address] [address] ALP [Catalytic activity/Vol] 68 U/L Normal 40-135 AO ADM SS Comment on above: Performed By: #### F ERR, CBC, FE, ANEU, ADIFF #### [address] [address] Calcium [Mass/Vol] 9.2 mg/dL Normal 8.4-10.2 AO ADM SS Comment on above: Performed By: #### F ERR, CBC, FE, ANEU, ADIFF #### [address] [address] Chloride [Moles/Vol] 88 mmol/L Low 98-107 AO A DM SS Comment on above: Performed By: #### F ERR, CBC, FE, ANEU, ADIFF #### [place] [id number] CO2 [Moles/Vol] 30 mmol/L Normal 23-31 AO ADM SS Comment on above: Performed By: #### F ERR, CBC, FE, ANEU, ADIFF #### [place] [address] Creatinine [Mass/Vol] 0.57 mg/dL Low 0.67-1.17 AO ADM SS Comment on above: Performed By: #### F ERR, CBC, FE, ANEU, ADIFF #### [place] [address] Electrolyte Balance 4.0 mEq/L Normal 4.0-15.0 AO AD M SS Comment on above: Performed By: #### F ERR, CBC, FE, ANEU, ADIFF #### [place] [id number] Globulin 3.1 G/dL Normal 2.7-4.4 AO ADM SS Comment on above: Performed By: #### F ERR, CBC, FE, ANEU, ADIFF #### [place] [address] Glucose [Mass/Vol] 166 mg/dL High 83-110 AO ADM SS Comment on above: Performed By: #### F ERR, CBC, FE, ANEU, ADIFF #### [place] [address] Potassium [Moles/Vol] 4.0 mmol/L Normal 3.5-5.1 AO ADM SS Comment on above: Performed By: #### F ERR, CBC, FE, ANEU, ADIFF #### [place] [id number] Sodium [Moles/Vol] 122 mmol/L Low 136-145 AO ADM SS Comment on above: Performed By: #### F ERR, CBC, FE, ANEU, ADIFF #### [place] [id number] CT HEAD OR BRAIN W/O CONTRAS Ton [...] 10/20/2024 11:52:19 AM Ordering Provider: JAMIE Spangler [facility] LABORATORYOrdered By: SYSTEM SYSTEM on 10-20-2024 Lactate [...] ng/L Male: 0-76 ng/L Testing performed on [employer] using a homogeneous sandwich chemiluminescent immunoassay based on Re[employer] technology. Urea nitrogen/Creatinine [Mass ratio] 19 ratio [...] Lactic Acid Lvl 0.8 mmol/L Normal 0.5-2.2 [facility] Comment on above: Performed By: #### A DIFF, CBC, BMP, ANEU, MG, GFR #### [address] [address] Laboratory - Chemistry and C hemistry - challengeOrdered By: SYSTEM SYSTEM on 10-20-2024 Urea nitrogen [Mass/Vol] 11 mg/dL Normal 7 - 18 mg/dL AO ADM SS MGon 10-20-2024 Magnesium [Mass/Vol] 2.2 mg/dL Normal 1.6-2.4 [facility] Comment on above: Performed By: #### A DIFF, CBC, BMP, ANEU, MG, GFR #### [address] [address] MGOrdered By: SYSTEM SYSTEM on 10-20-2024 Magnesium [Mass/Vol] 1.6 mg/dL Low 1.8-2.4 AO A DM SS Comment on above: Performed By: #### F ERR, CBC, FE, ANEU, ADIFF #### [address] [address] NAURon 10-20-2024 Sodium [Moles/Vol] 59 mmol/L Normal [facility] Comment on above: Performed By: #### F ERR, CBC, FE, ANEU, ADIFF #### [address] [id number] No Panel Informationon 10-20 Culture Urine 10,000 - 50,000 cfu/ml Mixed growth consistent with normal urogenital dorinda. [facility] TROPHSon 10-20-2024 High Sensitivity Troponin I 20 ng/L Normal 0-76 [facility] Comment on above: Result Comment: High Sensitive Troponin I Reference Ranges: Female: 0-51 ng/L Male: 0-76 ng/L Testing performed on Spoqa using a homogeneous sandwich chemiluminescent immunoassay based on Reissued technology. Performed By: #### F ERR, CBC, FE, ANEU, ADIFF #### [place] [id number] TSHon 10-20-2024 TSH 2.130 mIU/mL Normal 0.550-4.780 [facility] Comment on above: Performed By: #### A DIFF, CBC, BMP, ANEU, MG, GFR #### [place] [address] TSHROrdered By: SYSTEM SYSTE M on 10-20-2024 TSH Qn 2.53 m[IU]/L Normal 0.36-3.74 AO ADM SS Comment on above: Performed By: #### F ERR, CBC, FE, ANEU, ADIFF #### [address] [address] UDRUGon 10-20-2024 Amphetamine (u) Negative Normal Negative [facility] Comment on above: Performed By: #### F ERR, CBC, FE, ANEU, ADIFF #### [place] [id number] Barbiturate (u) Negative Normal Negative [facility] Comment on above: Performed By: #### F ERR, CBC, FE, ANEU, ADIFF #### [address] [address] Benzodiazepine (u) Negative Normal Negative [facility] Comment on above: Performed By: #### F ERR, CBC, FE, ANEU, ADIFF #### [address] [address] Cannabinoid (u) Negative Normal Negative [facility] Comment on above: Performed By: #### F ERR, CBC, FE, ANEU, ADIFF #### [address] [address] Cocaine Ql (U) Negative Normal Negative [facility] Comment on above: Performed By: #### F ERR, CBC, FE, ANEU, ADIFF #### [address] [address] Methadone Ql (U) Negative Normal Negative [facility] Comment on above: Performed By: #### F ERR, CBC, FE, ANEU, ADIFF #### [place] [address] Opiate (u) Positive Abnormal Negative [facility] Comment on above: Performed By: #### F ERR, CBC, FE, ANEU, ADIFF #### [address] [address] PCP (u) Negative Normal Negative [facility] Comment on above: Performed By: #### F ERR, CBC, FE, ANEU, ADIFF #### [address] [address] Urine Drugs screened: See Below Normal [facility] Comment on above: Result Comment: This drug [...] F ERR, CBC, FE, ANEU, ADIFF #### [address] [address] XR CHEST 2 VIEWSon XR CHEST 2 [...] 10/20/2024 12:10:04 PM Ordering Provider: JAMIE TAYLOR [facility] LABORATORYOrdered By: Abigail Graham on 10-08-2024 Albumin DL <= 20 mg/L (U) [Mass/Vol] 8.1 mg/L Invalid Interpretation Code AO ADM SS Albumin/Creatinine DL <= 20 mg/L (U) [Mass ratio] 17 mg/G Normal 0 - 30 mg/G AO Chemistry S Creatinine (U) [Mass/Vol] 47.6 mg/dL Normal 40.0 - 278.0 mg/dL AO ADM SS MALBRon 10-08-2024 U Creatinine 47.6 mg/dL Normal 40.0-278.0 [facility] Comment on above: Performed By: #### F ERR, CBC, FE, ANEU, ADIFF #### [address] [address] U Microalb 8.1 mg/L Normal [facility] Comment on above: Performed By: #### F ERR, CBC, FE, ANEU, ADIFF #### [address] [address] U Ratio Alb/Cre 17 mg/G Normal 0-30 [facility] Comment on above: Performed By: #### F ERR, CBC, FE, ANEU, ADIFF #### [address] [address] .Auto Diffon 10-05-2024 Basophil, Absolute 0.0 10 3/mcL Normal 0.0-0.3 [facility] Comment on above: Performed By: #### F ERR, CBC, FE, ANEU, ADIFF #### [address] [address] Basophils/100 WBC (Bld) 0.9 % Normal 0.0-2.5 [facility] Comment on above: Performed By: #### F ERR, CBC, FE, ANEU, ADIFF #### [address] [address] Eosinophil, Absolute 0.2 10 3/mcL Normal 0.0-0.7 [facility] Comment on above: Performed By: #### F ERR, CBC, FE, ANEU, ADIFF #### [address] [address] Eosinophils/100 WBC (Bld) 4.9 % Normal 0.0-6.0 [facility] Comment on above: Performed By: #### F ERR, CBC, FE, ANEU, ADIFF #### [address] [address] Lymphocyte, Absolute 1.4 10 3/mcL Normal 0.9-4.3 [facility] Comment on above: Performed By: #### F ERR, CBC, FE, ANEU, ADIFF #### [address] [address] Lymphocytes/100 WBC (Bld) 33.5 % Normal 20.0-40.0 [facility] Comment on above: Performed By: #### F ERR, CBC, FE, ANEU, ADIFF #### [address] [address] Monocyte, Absolute 0.4 10 3/mcL Normal 0.1-1.4 [facility] Comment on above: Performed By: #### F ERR, CBC, FE, ANEU, ADIFF #### [address] [address] Monocytes/100 WBC (Bld) 9.8 % Normal 2.0-13.0 [facility] Comment on above: Performed By: #### F ERR, CBC, FE, ANEU, ADIFF #### [address] [address] Neutrophils/100 WBC (Bld) 50.9 % Normal 50.0-75.0 [facility] Comment on above: Performed By: #### F ERR, CBC, FE, ANEU, ADIFF #### [address] [address] .NEUABSon 10-05-2024 Neutrophil, Absolute 2.1 10 3/mcL Low 2.3-8.1 [facility] Comment on above: Performed By: #### F ERR, CBC, FE, ANEU, ADIFF #### [address] [address] CBCon 10-05-2024 Erythrocyte distribution width (RBC) [Ratio] 14.2 % Normal 11.5-15.5 [facility] Comment on above: Performed By: #### F ERR, CBC, FE, ANEU, ADIFF #### [place] [address] Hematocrit (Bld) [Volume fraction] 36.4 % Low 40.0-52.0 [facility] Comment on above: Performed By: #### F ERR, CBC, FE, ANEU, ADIFF #### [place] [address] Hgb 12.5 G/dL Low 13.0-17.5 [facility] Comment on above: Performed By: #### F ERR, CBC, FE, ANEU, ADIFF #### [place] [address] MCH (RBC) [Entitic mass] 32.0 pg Normal 27.0-33.0 [facility] Comment on above: Performed By: #### F ERR, CBC, FE, ANEU, ADIFF #### [place] [address] MCHC 34.3 G/dL Normal 32.0-36.0 [facility] Comment on above: Performed By: #### F ERR, CBC, FE, ANEU, ADIFF #### [address] [address] MCV (RBC) [Entitic vol] 93.3 fL Normal 81.0-100.0 [facility] Comment on above: Performed By: #### F ERR, CBC, FE, ANEU, ADIFF #### [place] [address] Platelet 203 10 3/mcL Normal 150-450 [facility] Comment on above: Performed By: #### F ERR, CBC, FE, ANEU, ADIFF #### [place] [address] Platelet mean volume (Bld) [Entitic vol] 8.2 fL Normal 6.4-10.5 [facility] Comment on above: Performed By: #### F ERR, CBC, FE, ANEU, ADIFF #### [place] [address] RBC 3.90 10 6/mcL Low 4.50-6.00 [facility] Comment on above: Performed By: #### F ERR, CBC, FE, ANEU, ADIFF #### [place] [id number] WBC 4.2 10 3/mcL Low 4.5-10.8 [facility] Comment on above: Performed By: #### F ERR, CBC, FE, ANEU, ADIFF #### [address] [address] FEon 10-05-2024 Iron [Mass/Vol] 84 ug/dL Normal 65-175 [facility] Comment on above: Performed By: #### F ERR, CBC, FE, ANEU, ADIFF #### [address] [address] Tres 10-05-2024 Ferritin [Mass/Vol] 55.0 ng/mL Normal 26.0-388.0 [facility] Comment on above: Performed By: #### F ERR, CBC, FE, ANEU, ADIFF #### [place] [id number] [place] [id number] LABORATORYOrdered By: SYSTEM SYSTEM on 10-05-2024 Basophils [...] Absolute 0.0 10 3/mcL Normal 0.0-0.2 [facility] Comment on above: Performed By: #### F ERR, CBC, FE, ANEU, ADIFF #### [address] [address] Basophils/100 WBC (Bld) 0.9 % Normal 0.0-2.5 [facility] Comment on above: Performed By: #### F ERR, CBC, FE, ANEU, ADIFF #### [address] [address] Eosinophil, Absolute 0.2 10 3/mcL Normal 0.0-0.7 [facility] Comment on above: Performed By: #### F ERR, CBC, FE, ANEU, ADIFF #### [address] [address] Eosinophils/100 WBC (Bld) 4.4 % Normal 0.0-7.0 [facility] Comment on above: Performed By: #### F ERR, CBC, FE, ANEU, ADIFF #### [address] [address] Lymphocyte, Absolute 1.4 10 3/mcL Normal 0.9-4.3 [facility] Comment on above: Performed By: #### F ERR, CBC, FE, ANEU, ADIFF #### [address] [address] Lymphocytes/100 WBC (Bld) 28.4 % Normal 20.0-40.0 [facility] Comment on above: Performed By: #### F ERR, CBC, FE, ANEU, ADIFF #### [address] [address] Monocyte, Absolute 0.5 10 3/mcL Normal 0.1-1.4 [facility] Comment on above: Performed By: #### F ERR, CBC, FE, ANEU, ADIFF #### [address] [address] Monocytes/100 WBC (Bld) 9.1 % Normal 2.0-13.0 [facility] Comment on above: Performed By: #### F ERR, CBC, FE, ANEU, ADIFF #### [address] [address] Neutrophils/100 WBC (Bld) 57.2 % Normal 50.0-75.0 [facility] Comment on above: Performed By: #### F ERR, CBC, FE, ANEU, ADIFF #### [address] [address] .NEUABSon 07-06-2024 Neutrophil, Absolute 2.9 10 3/mcL Normal 2.3-8.1 [facility] Comment on above: Performed By: #### F ERR, CBC, FE, ANEU, ADIFF #### [address] [address] CBCon 07-06-2024 Erythrocyte distribution width (RBC) [Ratio] 15.5 % Normal 11.5-15.5 [facility] Comment on above: Performed By: #### F ERR, CBC, FE, ANEU, ADIFF #### [address] [address] Hematocrit (Bld) [Volume fraction] 37.0 % Low 40.0-52.0 [facility] Comment on above: Performed By: #### F ERR, CBC, FE, ANEU, ADIFF #### [place] [address] Hgb 12.7 G/dL Low 13.0-17.5 [facility] Comment on above: Performed By: #### F ERR, CBC, FE, ANEU, ADIFF #### [address] [address] MCH (RBC) [Entitic mass] 32.3 pg Normal 27.0-33.0 [facility] Comment on above: Performed By: #### F ERR, CBC, FE, ANEU, ADIFF #### [place] [address] MCHC 34.4 G/dL Normal 32.0-36.0 [facility] Comment on above: Performed By: #### F ERR, CBC, FE, ANEU, ADIFF #### [place] [id number] MCV (RBC) [Entitic vol] 93.9 fL Normal 81.0-100.0 [facility] Comment on above: Performed By: #### F ERR, CBC, FE, ANEU, ADIFF #### [place] [id number] Platelet 192 10 3/mcL Normal 150-450 [facility] Comment on above: Performed By: #### F ERR, CBC, FE, ANEU, ADIFF #### [place] [id number] Platelet mean volume (Bld) [Entitic vol] 8.0 fL Normal 6.4-10.5 [facility] Comment on above: Performed By: #### F ERR, CBC, FE, ANEU, ADIFF #### [place] [address] RBC 3.94 10 6/mcL Low 4.50-6.00 [facility] Comment on above: Performed By: #### F ERR, CBC, FE, ANEU, ADIFF #### [address] [address] WBC 5.1 10 3/mcL Normal 4.5-10.8 [facility] Comment on above: Performed By: #### F ERR, CBC, FE, ANEU, ADIFF #### [place] [address] [place], [place] [address] FEon 07-06-2024 Iron [Mass/Vol] 77 ug/dL Normal 65-175 [facility] Comment on above: Performed By: #### F ERR, CBC, FE, ANEU, ADIFF #### [address] [address] Tres 07-06-2024 Ferritin [Mass/Vol] 74.0 ng/mL Normal 26.0-388.0 [facility] Comment on above: Performed By: #### F ERR, CBC, FE, ANEU, ADIFF #### [address] [address] LABORATORYOrdered By: SYSTEM SYSTEM on 07-06-2024 Basophils [...] MALBRon 04-27-2024 U Creatinine 144.6 mg/dL Normal [facility] Comment on above: Performed By: #### F ERR, CBC, FE, ANEU, ADIFF #### [address] [address] U Microalb 5011 mcg/dL Normal [facility] Comment on above: Performed By: #### F ERR, CBC, FE, ANEU, ADIFF #### [address] [address] U Ratio Alb/Cre 35 mcg/mg High 0-30 [facility] Comment on above: Performed By: #### F ERR, CBC, FE, ANEU, ADIFF #### [address] [address] LABORATORYOrdered By: Vaughn Schneider on 04-09-2024 Albumin DL <= 20 mg/L (U) [Mass/Vol] 3705 mcg/dL Invalid Interpretation Code AO ADM SS Albumin/Creatinine DL <= 20 mg/L (U) [Mass ratio] 47 mcg/mg High 0 - 30 mcg/mg AO ADM SS Creatinine (U) [Mass/Vol] 78.8 mg/dL Normal 39.0 - 259.0 mg/dL AO ADM SS MALBRon 04-09-2024 U Creatinine 78.8 mg/dL Normal 39.0-259.0 [facility] Comment on above: Performed By: #### F ERR, CBC, FE, ANEU, ADIFF #### [address] [address] U Microalb 3705 mcg/dL Normal [facility] Comment on above: Performed By: #### F ERR, CBC, FE, ANEU, ADIFF #### [place] [address] U Ratio Alb/Cre 47 mcg/mg High 0-30 [facility] Comment on above: Performed By: #### F ERR, CBC, FE, ANEU, ADIFF #### [address] [address] .Auto Diffon 04-03-2024 Basophil, Absolute 0.0 10 3/mcL Normal 0.0-0.2 [facility] Comment on above: Performed By: #### F ERR, CBC, FE, ANEU, ADIFF #### [address] [address] Basophils/100 WBC (Bld) 0.2 % Normal 0.0-2.5 [facility] Comment on above: Performed By: #### F ERR, CBC, FE, ANEU, ADIFF #### [address] [address] Eosinophil, Absolute 0.2 10 3/mcL Normal 0.0-0.7 [facility] Comment on above: Performed By: #### F ERR, CBC, FE, ANEU, ADIFF #### [address] [address] Eosinophils/100 WBC (Bld) 1.9 % Normal 0.0-7.0 [facility] Comment on above: Performed By: #### F ERR, CBC, FE, ANEU, ADIFF #### [address] [address] Lymphocyte, Absolute 1.1 10 3/mcL Normal 0.9-4.3 [facility] Comment on above: Performed By: #### F ERR, CBC, FE, ANEU, ADIFF #### [address] [address] Lymphocytes/100 WBC (Bld) 11.9 % Low 20.0-40.0 [facility] Comment on above: Performed By: #### F ERR, CBC, FE, ANEU, ADIFF #### [address] [address] Monocyte, Absolute 0.7 10 3/mcL Normal 0.1-1.4 [facility] Comment on above: Performed By: #### F ERR, CBC, FE, ANEU, ADIFF #### [address] [address] Monocytes/100 WBC (Bld) 7.4 % Normal 2.0-13.0 [facility] Comment on above: Performed By: #### F ERR, CBC, FE, ANEU, ADIFF #### [address] [address] Neutrophils/100 WBC (Bld) 78.6 % High 50.0-75.0 [facility] Comment on above: Performed By: #### F ERR, CBC, FE, ANEU, ADIFF #### [address] [address] .NEUABSon 04-03-2024 Neutrophil, Absolute 7.3 10 3/mcL Normal 2.3-8.1 [facility] Comment on above: Performed By: #### F ERR, CBC, FE, ANEU, ADIFF #### [address] [address] CBCon 04-03-2024 Erythrocyte distribution width (RBC) [Ratio] 14.2 % Normal 11.5-15.5 [facility] Comment on above: Performed By: #### F ERR, CBC, FE, ANEU, ADIFF #### [address] [address] Hematocrit (Bld) [Volume fraction] 36.1 % Low 40.0-52.0 [facility] Comment on above: Performed By: #### F ERR, CBC, FE, ANEU, ADIFF #### [address] [address] Hgb 12.4 G/dL Low 13.0-17.5 [facility] Comment on above: Performed By: #### F ERR, CBC, FE, ANEU, ADIFF #### [address] [address] MCH (RBC) [Entitic mass] 32.8 pg Normal 27.0-33.0 [facility] Comment on above: Performed By: #### F ERR, CBC, FE, ANEU, ADIFF #### [address] [address] MCHC 34.2 G/dL Normal 32.0-36.0 [facility] Comment on above: Performed By: #### F ERR, CBC, FE, ANEU, ADIFF #### [address] [address] MCV (RBC) [Entitic vol] 95.8 fL Normal 81.0-100.0 [facility] Comment on above: Performed By: #### F ERR, CBC, FE, ANEU, ADIFF #### [address] [address] Platelet 150 10 3/mcL Normal 150-450 [facility] Comment on above: Performed By: #### F ERR, CBC, FE, ANEU, ADIFF #### [place] [address] Platelet mean volume (Bld) [Entitic vol] 8.4 fL Normal 6.4-10.5 [facility] Comment on above: Performed By: #### F ERR, CBC, FE, ANEU, ADIFF #### [place] [address] RBC 3.77 10 6/mcL Low 4.50-6.00 [facility] Comment on above: Performed By: #### F ERR, CBC, FE, ANEU, ADIFF #### [place] [address] WBC 9.3 10 3/mcL Normal 4.5-10.8 [facility] Comment on above: Performed By: #### F ERR, CBC, FE, ANEU, ADIFF #### [place] [address] FEon 04-03-2024 Iron [Mass/Vol] 26 ug/dL Low 65-175 [facility] Comment on above: Performed By: #### F ERR, CBC, FE, ANEU, ADIFF #### [place] [address] Tres 04-03-2024 Ferritin [Mass/Vol] 76.0 ng/mL Normal 26.0-388.0 [facility] Comment on above: Performed By: #### F ERR, CBC, FE, ANEU, ADIFF #### [place] [address] LABORATORYOrdered By: SYSTEM SYSTEM on 04-03-2024 Basophils [...] Sign Date: 02/20/2024 3:29:22 PM Ordering Provider: [facility] CT MAXILLOFACIAL W/O CONTRAS Ton 02-20-2024 CT [...] Sign Date: 02/20/2024 3:38:46 PM Ordering Provider: [facility] CT SPINE CERVICAL W/O CONTRA STon 02-20-2024 [...] 02/20/2024 3:59:40 PM Ordering Provider: NELIDA Spangler [facility] .Auto Diffon 01-21-2024 Basophil, Absolute 0.1 10 3/mcL Normal 0.0-0.2 [facility] Comment on above: Performed By: #### F ERR, LIPID, PSA, FE, CMP, GFR, ADIFF, CBC, ANEU #### [place] [address] #### FOL, B12 #### [address] [address] Basophils/100 WBC (Bld) 1.0 % Normal 0.0-2.5 [facility] Comment on above: Performed By: #### F ERR, LIPID, PSA, FE, CMP, GFR, ADIFF, CBC, ANEU #### [address] [address] #### FOL, B12 #### [address] [address] Eosinophil, Absolute 0.3 10 3/mcL Normal 0.0-0.4 [facility] Comment on above: Performed By: #### F ERR, LIPID, PSA, FE, CMP, GFR, ADIFF, CBC, ANEU #### [place] [address] #### FOL, B12 #### [address] [address] Eosinophils/100 WBC (Bld) 5.4 % Normal 0.0-7.0 [facility] Comment on above: Performed By: #### F ERR, LIPID, PSA, FE, CMP, GFR, ADIFF, CBC, ANEU #### [place] [address] #### FOL, B12 #### [address] [address] Lymphocyte, Absolute 1.6 10 3/mcL Normal 0.8-3.9 [facility] Comment on above: Performed By: #### F ERR, LIPID, PSA, FE, CMP, GFR, ADIFF, CBC, ANEU #### [place] [address] #### FOL, B12 #### [address] [address] Lymphocytes/100 WBC (Bld) 28.6 % Normal 10.0-50.0 [facility] Comment on above: Performed By: #### F ERR, LIPID, PSA, FE, CMP, GFR, ADIFF, CBC, ANEU #### [place] [address] #### FOL, B12 #### [address] [address] Monocyte, Absolute 0.4 10 3/mcL Normal 0.2-1.0 [facility] Comment on above: Performed By: #### F ERR, LIPID, PSA, FE, CMP, GFR, ADIFF, CBC, ANEU #### [place] [address] #### FOL, B12 #### [address] [address] Monocytes/100 WBC (Bld) 7.5 % Normal 1.7-13.0 [facility] Comment on above: Performed By: #### F ERR, LIPID, PSA, FE, CMP, GFR, ADIFF, CBC, ANEU #### [place] [address] [place], [place] [address] #### FOL, B12 #### [address] [address] Neutrophils/100 WBC (Bld) 57.5 % Normal 37.0-80.0 [facility] Comment on above: Performed By: #### F ERR, LIPID, PSA, FE, CMP, GFR, ADIFF, CBC, ANEU #### [place] [address] [place], [place] [address] #### FOL, B12 #### [address] [address] .GFRon 01-21-2024 GFR 110 ml/min/1.73sqm Normal [facility] Comment on above: Result Comment: GFR Population [...] F ERR, CBC, FE, ANEU, ADIFF #### [address] [address] GFR Non- 91 ml/min/1.73sqm Normal [facility] Comment on above: Result Comment: GFR Population [...] F ERR, CBC, FE, ANEU, ADIFF #### [address] [address] .NEUABSon 01-21-2024 Neutrophil, Absolute 3.2 10 3/mcL Normal 2.9-6.2 [facility] Comment on above: Performed By: #### F ERR, LIPID, PSA, FE, CMP, GFR, ADIFF, CBC, ANEU #### [place] [address] #### FOL, B12 #### [address] [address] B12on 01-21-2024 Cobalamin (Vitamin B12) [Mass/Vol] 275 pg/mL Normal 211-911 [facility] Comment on above: Performed By: #### F ERR, CBC, FE, ANEU, ADIFF #### [address] [address] CBCon 01-21-2024 Erythrocyte distribution width (RBC) [Ratio] 14.7 % High 11.5-14.5 [facility] Comment on above: Performed By: #### F ERR, LIPID, PSA, FE, CMP, GFR, ADIFF, CBC, ANEU #### [place] [address] #### FOL, B12 #### [address] [address] Hematocrit (Bld) [Volume fraction] 36.6 % Low 42.0-52.0 [facility] Comment on above: Performed By: #### F ERR, LIPID, PSA, FE, CMP, GFR, ADIFF, CBC, ANEU #### [place] [address] #### FOL, B12 #### [address] [address] Hgb 12.4 G/dL Low 14.0-18.0 [facility] Comment on above: Performed By: #### F ERR, LIPID, PSA, FE, CMP, GFR, ADIFF, CBC, ANEU #### [place] [address] #### FOL, B12 #### [address] [address] MCH (RBC) [Entitic mass] 32.5 pg High 27.0-31.2 [facility] Comment on above: Performed By: #### F ERR, LIPID, PSA, FE, CMP, GFR, ADIFF, CBC, ANEU #### [place] [address] #### FOL, B12 #### [place] [address] MCHC 33.8 G/dL Normal 31.8-35.4 [facility] Comment on above: Performed By: #### F ERR, LIPID, PSA, FE, CMP, GFR, ADIFF, CBC, ANEU #### [place] [address] #### FOL, B12 #### [place] [address] MCV (RBC) [Entitic vol] 96.3 fL High 80.0-94.0 [facility] Comment on above: Performed By: #### F ERR, LIPID, PSA, FE, CMP, GFR, ADIFF, CBC, ANEU #### [place] [address] #### FOL, B12 #### [place] [address] Platelet 186 10 3/mcL Normal 130-400 [facility] Comment on above: Performed By: #### F ERR, LIPID, PSA, FE, CMP, GFR, ADIFF, CBC, ANEU #### [place] [address] #### FOL, B12 #### [place] [address] Platelet mean volume (Bld) [Entitic vol] 7.9 fL Normal 7.4-10.4 [facility] Comment on above: Performed By: #### F ERR, LIPID, PSA, FE, CMP, GFR, ADIFF, CBC, ANEU #### [address] [address] #### FOL, B12 #### [place] [address] RBC 3.81 10 6/mcL Low 4.04-6.13 [facility] Comment on above: Performed By: #### F ERR, LIPID, PSA, FE, CMP, GFR, ADIFF, CBC, ANEU #### [place] [address] #### FOL, B12 #### [place] [address] WBC 5.6 10 3/mcL Normal 4.6-10.8 [facility] Comment on above: Performed By: #### F ERR, LIPID, PSA, FE, CMP, GFR, ADIFF, CBC, ANEU #### [place] [address] #### FOL, B12 #### [place] [address] CMPon 01-21-2024 Albumin Level 3.9 G/dL Normal 3.4-4.8 [facility] Comment on above: Performed By: #### F ERR, CBC, FE, ANEU, ADIFF #### [place] [address] Albumin/Globulin [Mass ratio] 1.6 {ratio} Normal 1.1-2.5 [facility] Comment on above: Performed By: #### F ERR, CBC, FE, ANEU, ADIFF #### [place] [address] ALP [Catalytic activity/Vol] 66 U/L Normal 40-135 [facility] Comment on above: Performed By: #### F ERR, CBC, FE, ANEU, ADIFF #### [place] [address] ALT [Catalytic activity/Vol] 16 U/L Normal 16-63 [facility] Comment on above: Performed By: #### F ERR, CBC, FE, ANEU, ADIFF #### [address] [address] AST [Catalytic activity/Vol] 10 U/L Normal 10-40 [facility] Comment on above: Performed By: #### F ERR, CBC, FE, ANEU, ADIFF #### [address] [address] Bili Total 0.7 mg/dL Normal 0.2-1.0 [facility] Comment on above: Result Comment: Use of this assay is not recommended for patients undergoing treatment with eltrombopag due to the potential for falsely elevated results. Performed By: #### F ERR, CBC, FE, ANEU, ADIFF #### [address] [address] BUN/Creatinine Ratio 15 ratio Normal 7-27 [facility] Comment on above: Performed By: #### F ERR, CBC, FE, ANEU, ADIFF #### [address] [address] Calcium [Mass/Vol] 9.1 mg/dL Normal 8.4-10.2 [facility] Comment on above: Performed By: #### F ERR, CBC, FE, ANEU, ADIFF #### [address] [address] Chloride [Moles/Vol] 96 mmol/L Low 98-107 [facility] Comment on above: Performed By: #### F ERR, CBC, FE, ANEU, ADIFF #### [address] [address] CO2 [Moles/Vol] 30 mmol/L Normal 23-31 [facility] Comment on above: Performed By: #### F ERR, CBC, FE, ANEU, ADIFF #### [address] [address] Creatinine [Mass/Vol] 0.81 mg/dL Normal 0.70-1.30 [facility] Comment on above: Result Comment: Test ing performed on Siemens Dimension EXL analyzer using a modified kinetic Claudine technique. Performed By: #### F ERR, CBC, FE, ANEU, ADIFF #### [address] [address] Electrolyte Balance 5.0 mEq/L Normal 4.0-15.0 [facility] Comment on above: Performed By: #### F ERR, CBC, FE, ANEU, ADIFF #### [address] [address] Globulin 2.4 G/dL Normal [facility] Comment on above: Performed By: #### F ERR, CBC, FE, ANEU, ADIFF #### [address] [address] Glucose [Mass/Vol] 119 mg/dL High 83-110 [facility] Comment on above: Performed By: #### F ERR, CBC, FE, ANEU, ADIFF #### [address] [address] Potassium [Moles/Vol] 4.3 mmol/L Normal 3.5-5.1 [facility] Comment on above: Performed By: #### F ERR, CBC, FE, ANEU, ADIFF #### [address] [address] Sodium [Moles/Vol] 131 mmol/L Low 136-145 [facility] Comment on above: Performed By: #### F ERR, CBC, FE, ANEU, ADIFF #### [address] [address] Total Protein 6.3 G/dL Low 6.4-8.2 [facility] Comment on above: Performed By: #### F ERR, CBC, FE, ANEU, ADIFF #### [address] [address] Urea nitrogen [Mass/Vol] 12 mg/dL Normal 7-18 [facility] Comment on above: Performed By: #### F ERR, CBC, FE, ANEU, ADIFF #### [address] [address] FEon 01-21-2024 Iron [Mass/Vol] 55 ug/dL Low 65-175 [facility] Comment on above: Performed By: #### F ERR, CBC, FE, ANEU, ADIFF #### [address] [address] Tres 01-21-2024 Ferritin [Mass/Vol] 49.0 ng/mL Normal 26.0-388.0 [facility] Comment on above: Performed By: #### F ERR, LIPID, PSA, FE, CMP, GFR, ADIFF, CBC, ANEU #### [address] [address] #### FOL, B12 #### [facility] [address] [place] [id number] FOLon 01-21-2024 Folate 21.89 ng/mL Normal 5.38-24.00 [facility] Comment on above: Performed By: #### F ERR, CBC, FE, ANEU, ADIFF #### [address] [address] LABORATORYOrdered By: SYSTEM SYSTEM on 01-21-2024 Albumin [...] 01-21-2024 Cholesterol [Mass/Vol] 124 mg/dL Normal 0-200 [facility] Comment on above: Result Comment: Chol esterol Reference Interval: Less than 200 Desirable 200-239 Borderline high risk 240 and above High risk Performed By: #### F ERR, CBC, FE, ANEU, ADIFF #### [address] [address] Cholesterol in HDL [Mass/Vol] 68 mg/dL High 40-60 [facility] Comment on above: Performed By: #### F ERR, CBC, FE, ANEU, ADIFF #### [address] [address] Cholesterol in LDL [Mass/Vol] 44 mg/dL Normal 0-130 [facility] Comment on above: Performed By: #### F ERR, CBC, FE, ANEU, ADIFF #### [address] [address] Triglyceride [Mass/Vol] 60 mg/dL Normal 0-150 [facility] Comment on above: Result Comment: Trig lyceride Reference Interval: Less than 150 Normal 150-199 Borderline high risk 200-499 High risk 500 or higher Very high risk Performed By: #### F ERR, CBC, FE, ANEU, ADIFF #### [address] [address] PSAon 01-21-2024 Prostate Specific Antigen 0.44 ng/mL Normal 0.00-4.00 [facility] Comment on above: Performed By: #### F ERR, CBC, FE, ANEU, ADIFF #### [address] [address] .Auto Diffon 01-10-2024 Basophil, Absolute 0.0 10 3/mcL Normal 0.0-0.2 [facility] Comment on above: Performed By: #### F ERR, CBC, FE, ANEU, ADIFF #### [address] [address] Basophils/100 WBC (Bld) 0.7 % Normal 0.0-2.5 [facility] Comment on above: Performed By: #### F ERR, CBC, FE, ANEU, ADIFF #### [address] [address] Eosinophil, Absolute 0.3 10 3/mcL Normal 0.0-0.4 [facility] Comment on above: Performed By: #### F ERR, CBC, FE, ANEU, ADIFF #### [address] [address] Eosinophils/100 WBC (Bld) 4.6 % Normal 0.0-7.0 [facility] Comment on above: Performed By: #### F ERR, CBC, FE, ANEU, ADIFF #### [address] [address] Lymphocyte, Absolute 1.0 10 3/mcL Normal 0.8-3.9 [facility] Comment on above: Performed By: #### F ERR, CBC, FE, ANEU, ADIFF #### [address] [address] Lymphocytes/100 WBC (Bld) 17.4 % Normal 10.0-50.0 [facility] Comment on above: Performed By: #### F ERR, CBC, FE, ANEU, ADIFF #### [address] [address] Monocyte, Absolute 0.4 10 3/mcL Normal 0.2-1.0 [facility] Comment on above: Performed By: #### F ERR, CBC, FE, ANEU, ADIFF #### [address] [address] Monocytes/100 WBC (Bld) 8.0 % Normal 1.7-13.0 [facility] Comment on above: Performed By: #### F ERR, CBC, FE, ANEU, ADIFF #### [address] [address] Neutrophils/100 WBC (Bld) 69.3 % Normal 37.0-80.0 [facility] Comment on above: Performed By: #### F ERR, CBC, FE, ANEU, ADIFF #### [address] [address] .GFRon 01-10-2024 GFR 107 ml/min/1.73sqm Normal [facility] Comment on above: Result Comment: GFR Population [...] F ERR, CBC, FE, ANEU, ADIFF #### [address] [address] GFR Non- 88 ml/min/1.73sqm Normal [facility] Comment on above: Result Comment: GFR Population [...] F ERR, CBC, FE, ANEU, ADIFF #### [address] [address] .NEUABSon 01-10-2024 Neutrophil, Absolute 3.9 10 3/mcL Normal 2.9-6.2 [facility] Comment on above: Performed By: #### F ERR, CBC, FE, ANEU, ADIFF #### [address] [address] CBCon 01-10-2024 Erythrocyte distribution width (RBC) [Ratio] 15.1 % High 11.5-14.5 [facility] Comment on above: Performed By: #### F ERR, CBC, FE, ANEU, ADIFF #### [place] [address] Hematocrit (Bld) [Volume fraction] 35.7 % Low 42.0-52.0 [facility] Comment on above: Performed By: #### F ERR, CBC, FE, ANEU, ADIFF #### [place] [address] Hgb 12.3 G/dL Low 14.0-18.0 [facility] Comment on above: Performed By: #### F ERR, CBC, FE, ANEU, ADIFF #### [place] [address] MCH (RBC) [Entitic mass] 33.1 pg High 27.0-31.2 [facility] Comment on above: Performed By: #### F ERR, CBC, FE, ANEU, ADIFF #### [place] [address] MCHC 34.4 G/dL Normal 31.8-35.4 [facility] Comment on above: Performed By: #### F ERR, CBC, FE, ANEU, ADIFF #### [place] [address] MCV (RBC) [Entitic vol] 96.1 fL High 80.0-94.0 [facility] Comment on above: Performed By: #### F ERR, CBC, FE, ANEU, ADIFF #### [place] [id number] Platelet 168 10 3/mcL Normal 130-400 [facility] Comment on above: Performed By: #### F ERR, CBC, FE, ANEU, ADIFF #### [address] [address] Platelet mean volume (Bld) [Entitic vol] 8.4 fL Normal 7.4-10.4 [facility] Comment on above: Performed By: #### F ERR, CBC, FE, ANEU, ADIFF #### [address] [address] RBC 3.71 10 6/mcL Low 4.04-6.13 [facility] Comment on above: Performed By: #### F ERR, CBC, FE, ANEU, ADIFF #### [address] [address] WBC 5.6 10 3/mcL Normal 4.6-10.8 [facility] Comment on above: Performed By: #### F ERR, CBC, FE, ANEU, ADIFF #### [address] [address] CMPon 01-10-2024 Albumin Level 3.7 G/dL Normal 3.4-4.8 [facility] Comment on above: Performed By: #### F ERR, CBC, FE, ANEU, ADIFF #### [place] [id number] Albumin/Globulin [Mass ratio] 1.8 {ratio} Normal 1.1-2.5 [facility] Comment on above: Performed By: #### F ERR, CBC, FE, ANEU, ADIFF #### [address] [address] ALP [Catalytic activity/Vol] 57 U/L Normal 40-135 [facility] Comment on above: Performed By: #### F ERR, CBC, FE, ANEU, ADIFF #### [address] [address] ALT [Catalytic activity/Vol] 14 U/L Low 16-63 [facility] Comment on above: Performed By: #### F ERR, CBC, FE, ANEU, ADIFF #### [address] [address] AST [Catalytic activity/Vol] 14 U/L Normal 10-40 [facility] Comment on above: Performed By: #### F ERR, CBC, FE, ANEU, ADIFF #### [address] [address] Bili Total 0.7 mg/dL Normal 0.2-1.0 [facility] Comment on above: Result Comment: Use of this assay is not recommended for patients undergoing treatment with eltrombopag due to the potential for falsely elevated results. Performed By: #### F ERR, CBC, FE, ANEU, ADIFF #### [address] [address] BUN/Creatinine Ratio 17 ratio Normal 7-27 [facility] Comment on above: Performed By: #### F ERR, CBC, FE, ANEU, ADIFF #### [address] [address] Calcium [Mass/Vol] 9.2 mg/dL Normal 8.4-10.2 [facility] Comment on above: Performed By: #### F ERR, CBC, FE, ANEU, ADIFF #### [address] [address] Chloride [Moles/Vol] 95 mmol/L Low 98-107 [facility] Comment on above: Performed By: #### F ERR, CBC, FE, ANEU, ADIFF #### [address] [address] CO2 [Moles/Vol] 31 mmol/L Normal 23-31 [facility] Comment on above: Performed By: #### F ERR, CBC, FE, ANEU, ADIFF #### [address] [address] Creatinine [Mass/Vol] 0.83 mg/dL Normal 0.70-1.30 [facility] Comment on above: Result Comment: Test ing performed on Siemens Dimension EXL analyzer using a modified kinetic Claudine technique. Performed By: #### F ERR, CBC, FE, ANEU, ADIFF #### [place] [id number] Electrolyte Balance 6.0 mEq/L Normal 4.0-15.0 [facility] Comment on above: Performed By: #### F ERR, CBC, FE, ANEU, ADIFF #### [address] [address] Globulin 2.0 G/dL Normal [facility] Comment on above: Performed By: #### F ERR, CBC, FE, ANEU, ADIFF #### [address] [address] Glucose [Mass/Vol] 120 mg/dL High 83-110 [facility] Comment on above: Performed By: #### F ERR, CBC, FE, ANEU, ADIFF #### [place] [id number] Potassium [Moles/Vol] 4.6 mmol/L Normal 3.5-5.1 [facility] Comment on above: Performed By: #### F ERR, CBC, FE, ANEU, ADIFF #### [address] [address] Sodium [Moles/Vol] 132 mmol/L Low 136-145 [facility] Comment on above: Performed By: #### F ERR, CBC, FE, ANEU, ADIFF #### [address] [address] Total Protein 5.7 G/dL Low 6.4-8.2 [facility] Comment on above: Performed By: #### F ERR, CBC, FE, ANEU, ADIFF #### [address] [address] Urea nitrogen [Mass/Vol] 14 mg/dL Normal 7-18 [facility] Comment on above: Performed By: #### F ERR, CBC, FE, ANEU, ADIFF #### [address] [address] LABORATORYOrdered By: SYSTEM SYSTEM on 01-10-2024 Albumin [...] 01-10-2024 Cholesterol [Mass/Vol] 127 mg/dL Normal 0-200 [facility] Comment on above: Result Comment: Chol esterol Reference Interval: Less than 200 Desirable 200-239 Borderline high risk 240 and above High risk Performed By: #### F ERR, CBC, FE, ANEU, ADIFF #### [address] [address] Cholesterol in HDL [Mass/Vol] 69 mg/dL High 40-60 [facility] Comment on above: Performed By: #### F ERR, CBC, FE, ANEU, ADIFF #### [address] [address] Cholesterol in LDL [Mass/Vol] 46 mg/dL Normal 0-130 [facility] Comment on above: Performed By: #### F ERR, CBC, FE, ANEU, ADIFF #### [address] [address] Triglyceride [Mass/Vol] 61 mg/dL Normal 0-150 [facility] Comment on above: Result Comment: Trig lyceride Reference Interval: Less than 150 Normal 150-199 Borderline high risk 200-499 High risk 500 or higher Very high risk Performed By: #### F ERR, CBC, FE, ANEU, ADIFF #### [address] [address] LABORATORYOrdered By: Dolores Bal on 10-09-2023 Albumin DL <= 20 mg/L (U) [Mass/Vol] 3296 mcg/dL Invalid Interpretation Code AO ADM SS Albumin/Creatinine DL <= 20 mg/L (U) [Mass ratio] 43 mcg/mg High 0 - 30 mcg/mg AO ADM SS Creatinine (U) [Mass/Vol] 76.6 mg/dL Normal 39.0 - 259.0 mg/dL AO ADM SS MALBRon 10-09-2023 U Creatinine 76.6 mg/dL Normal 39.0-259.0 [facility] [place] Comment on above: Performed By: #### M ALBR ####[address] [place], [place] [address] U Microalb 3296 mcg/dL Normal [facility] [place] Comment on above: Performed By: #### M ALBR ####[address] [place], [place] [address] U Ratio Alb/Cre 43 mcg/mg High 0-30 [facility] [place] Comment on above: Performed By: #### M ALBR ####[address] [place], [place] [address] XR WRIST MINIMUM 3 VIEWS LEF Ton [...] 3:21:09 PM Ordering Provider: YASMANI COULTER Normal [facility] [place] .Auto Diffon 08-30-2023 Basophil, Absolute 0.0 10 3/mcL Normal 0.0-0.2 [facility] ([place] Comment on above: Performed By: #### A 1C, TSH, CBC, CMP, PSA, GFR, ADIFF, VIDH, ANEU #### [address] [place], [place] [address] Basophils/100 WBC (Bld) 0.6 % Normal 0.0-2.5 [facility] [place] Comment on above: Performed By: #### A 1C, TSH, CBC, CMP, PSA, GFR, ADIFF, VIDH, ANEU #### [address] [address] Eosinophil, Absolute 0.3 10 3/mcL Normal 0.0-0.4 [facility] ([place] Comment on above: Performed By: #### A 1C, TSH, CBC, CMP, PSA, GFR, ADIFF, VIDH, ANEU #### [address] [address] Eosinophils/100 WBC (Bld) 4.3 % Normal 0.0-7.0 [facility] [place] Comment on above: Performed By: #### A 1C, TSH, CBC, CMP, PSA, GFR, ADIFF, VIDH, ANEU #### [address] [address] Lymphocyte, Absolute 1.7 10 3/mcL Normal 0.8-3.9 [facility] ([place] Comment on above: Performed By: #### A 1C, TSH, CBC, CMP, PSA, GFR, ADIFF, VIDH, ANEU #### [address] [address] Lymphocytes/100 WBC (Bld) 27.3 % Normal 10.0-50.0 [facility] [place] Comment on above: Performed By: #### A 1C, TSH, CBC, CMP, PSA, GFR, ADIFF, VIDH, ANEU #### [address] [address] Monocyte, Absolute 0.5 10 3/mcL Normal 0.2-1.0 [facility] ([place] Comment on above: Performed By: #### A 1C, TSH, CBC, CMP, PSA, GFR, ADIFF, VIDH, ANEU #### [address] [address] Monocytes/100 WBC (Bld) 8.2 % Normal 1.7-13.0 [facility] Comment on above: Performed By: #### A 1C, TSH, CBC, CMP, PSA, GFR, ADIFF, VIDH, ANEU #### [address] [address] Neutrophils/100 WBC (Bld) 59.6 % Normal 37.0-80.0 [facility] ([place] Comment on above: Performed By: #### A 1C, TSH, CBC, CMP, PSA, GFR, ADIFF, VIDH, ANEU #### [place] [address] [place], [place] [address] .GFRon 08-30-2023 GFR 99 ml/min/1.73sqm Normal [facility] ([place] Comment on above: Result Comment: GFR Population [...] CBC, CMP, PSA, GFR, ADIFF, VIDH, ANEU ####[address] [address] GFR Non- 81 ml/min/1.73sqm Normal [facility] [place] Comment on above: Result Comment: GFR Population [...] CBC, CMP, PSA, GFR, ADIFF, VIDH, ANEU ####[address] [address] .NEUABSon 08-30-2023 Neutrophil, Absolute 3.7 10 3/mcL Normal 2.9-6.2 [facility] ([place] Comment on above: Performed By: #### A 1C, TSH, CBC, CMP, PSA, GFR, ADIFF, VIDH, ANEU #### [place] [address] A1Con 08-30-2023 HbA1c (Bld) [Mass fraction] 6.9 % High 4.3-6.4 [facility] ([place] Comment on above: Performed By: #### A 1C, TSH, CBC, CMP, PSA, GFR, ADIFF, VIDH, ANEU #### [place] [address] CBCon 08-30-2023 Erythrocyte distribution width (RBC) [Ratio] 15.3 % High 11.5-14.5 [facility] [place] Comment on above: Performed By: #### A 1C, TSH, CBC, CMP, PSA, GFR, ADIFF, VIDH, ANEU #### [place] [address] Hematocrit (Bld) [Volume fraction] 39.1 % Low 42.0-52.0 [facility] [place] Comment on above: Performed By: #### A 1C, TSH, CBC, CMP, PSA, GFR, ADIFF, VIDH, ANEU #### [place] [address] Hgb 13.5 G/dL Low 14.0-18.0 [facility] [place] Comment on above: Performed By: #### A 1C, TSH, CBC, CMP, PSA, GFR, ADIFF, VIDH, ANEU #### [address] [address] MCH (RBC) [Entitic mass] 32.3 pg High 27.0-31.2 [facility] [place] Comment on above: Performed By: #### A 1C, TSH, CBC, CMP, PSA, GFR, ADIFF, VIDH, ANEU #### [address] [address] MCHC 34.6 G/dL Normal 31.8-35.4 [facility] [place] Comment on above: Performed By: #### A 1C, TSH, CBC, CMP, PSA, GFR, ADIFF, VIDH, ANEU #### [address] [address] MCV (RBC) [Entitic vol] 93.2 fL Normal 80.0-94.0 [facility] [place] Comment on above: Performed By: #### A 1C, TSH, CBC, CMP, PSA, GFR, ADIFF, VIDH, ANEU #### [address] [address] Platelet 191 10 3/mcL Normal 130-400 [facility] [place] Comment on above: Performed By: #### A 1C, TSH, CBC, CMP, PSA, GFR, ADIFF, VIDH, ANEU #### [address] [address] Platelet mean volume (Bld) [Entitic vol] 8.7 fL Normal 7.4-10.4 [facility] [place] Comment on above: Performed By: #### A 1C, TSH, CBC, CMP, PSA, GFR, ADIFF, VIDH, ANEU #### [address] [address] RBC 4.19 10 6/mcL Normal 4.04-6.13 [facility] [place] Comment on above: Performed By: #### A 1C, TSH, CBC, CMP, PSA, GFR, ADIFF, VIDH, ANEU #### [address] [address] WBC 6.3 10 3/mcL Normal 4.6-10.8 [facility] [place] Comment on above: Performed By: #### A 1C, TSH, CBC, CMP, PSA, GFR, ADIFF, VIDH, ANEU #### [address] [address] CMPon 08-30-2023 Albumin Level 4.3 G/dL Normal 3.4-4.8 [facility] [place] Comment on above: Performed By: #### A 1C, TSH, CBC, CMP, PSA, GFR, ADIFF, VIDH, ANEU #### [address] [address] Albumin/Globulin [Mass ratio] 1.8 {ratio} Normal 1.1-2.5 [facility] [place] Comment on above: Performed By: #### A 1C, TSH, CBC, CMP, PSA, GFR, ADIFF, VIDH, ANEU #### [address] [address] ALP [Catalytic activity/Vol] 49 U/L Normal 40-135 [facility] [place] Comment on above: Performed By: #### A 1C, TSH, CBC, CMP, PSA, GFR, ADIFF, VIDH, ANEU #### [address] [address] ALT [Catalytic activity/Vol] 23 U/L Normal 16-63 [facility] [place] Comment on above: Performed By: #### A 1C, TSH, CBC, CMP, PSA, GFR, ADIFF, VIDH, ANEU #### [address] [address] AST [Catalytic activity/Vol] 15 U/L Normal 10-40 [facility] ([place] Comment on above: Performed By: #### A 1C, TSH, CBC, CMP, PSA, GFR, ADIFF, VIDH, ANEU #### [address] [address] Bili Total 0.7 mg/dL Normal 0.2-1.0 [facility] ([place] Comment on above: Result Comment: Use of this assay is not recommended for patients undergoing treatment with eltrombopag due to the potential for falsely elevated results. Performed By: #### A 1C, TSH, CBC, CMP, PSA, GFR, ADIFF, VIDH, ANEU #### [address] [address] BUN/Creatinine Ratio 21 ratio Normal 7-27 [facility] ([place] Comment on above: Performed By: #### A 1C, TSH, CBC, CMP, PSA, GFR, ADIFF, VIDH, ANEU #### [address] [address] Calcium [Mass/Vol] 9.6 mg/dL Normal 8.4-10.2 [facility] ([place] Comment on above: Performed By: #### A 1C, TSH, CBC, CMP, PSA, GFR, ADIFF, VIDH, ANEU #### [address] [address] Chloride [Moles/Vol] 96 mmol/L Low 98-107 [facility] ([place] Comment on above: Performed By: #### A 1C, TSH, CBC, CMP, PSA, GFR, ADIFF, VIDH, ANEU #### [address] [address] CO2 [Moles/Vol] 30 mmol/L Normal 23-31 [facility] [place] Comment on above: Performed By: #### A 1C, TSH, CBC, CMP, PSA, GFR, ADIFF, VIDH, ANEU #### [address] [address] Creatinine [Mass/Vol] 0.89 mg/dL Normal 0.70-1.30 [facility] ([place] Comment on above: Performed By: #### A 1C, TSH, CBC, CMP, PSA, GFR, ADIFF, VIDH, ANEU #### [address] [address] Electrolyte Balance 8.0 mEq/L Normal 4.0-15.0 [facility] ([place] Comment on above: Performed By: #### A 1C, TSH, CBC, CMP, PSA, GFR, ADIFF, VIDH, ANEU #### [address] [address] Globulin 2.4 G/dL Normal [facility] ([place] Comment on above: Performed By: #### A 1C, TSH, CBC, CMP, PSA, GFR, ADIFF, VIDH, ANEU #### [address] [address] Glucose [Mass/Vol] 113 mg/dL High 83-110 [facility] ([place] Comment on above: Performed By: #### A 1C, TSH, CBC, CMP, PSA, GFR, ADIFF, VIDH, ANEU #### [address] [address] Potassium [Moles/Vol] 4.8 mmol/L Normal 3.5-5.1 [facility] ([place] Comment on above: Performed By: #### A 1C, TSH, CBC, CMP, PSA, GFR, ADIFF, VIDH, ANEU #### [address] [address] Sodium [Moles/Vol] 134 mmol/L Low 136-145 [facility] ([place] Comment on above: Performed By: #### A 1C, TSH, CBC, CMP, PSA, GFR, ADIFF, VIDH, ANEU #### [address] [address] Total Protein 6.7 G/dL Normal 6.4-8.2 [facility] ([place] Comment on above: Performed By: #### A 1C, TSH, CBC, CMP, PSA, GFR, ADIFF, VIDH, ANEU #### [address] [address] Urea nitrogen [Mass/Vol] 19 mg/dL High 7-18 [facility] ([place] Comment on above: Performed By: #### A 1C, TSH, CBC, CMP, PSA, GFR, ADIFF, VIDH, ANEU #### [address] [address] LABORATORYOrdered By: SYSTEM SYSTEM on 08-30-2023 25-hydroxyvitamin [...] Prostate Specific Antigen 0.49 ng/mL Normal 0.00-4.00 [facility] ([place] Comment on above: Performed By: #### A 1C, TSH, CBC, CMP, PSA, GFR, ADIFF, VIDH, ANEU #### [address] [address] TSHon 08-30-2023 TSH Qn 2.68 m[IU]/L Normal 0.36-3.74 [facility] ([place] Comment on above: Order Comment: REFLE X FREE T4 IF ABNORMAL! (TSH < 0.36, or TSH > 3.64) Performed By: #### A 1C, TSH, CBC, CMP, PSA, GFR, ADIFF, VIDH, ANEU #### [place] [address] VIDHon 08-30-2023 Vit. D 25-Hydroxy 57.4 ng/mL Normal [facility] ([place] Comment on above: Result Comment: Inte rpretive Values Based on Total 25(OH) Vitamin D: Deficient <20 ng/mL Insufficient 20 - <30 ng/mL Sufficient 30-100 ng/mL Performed By: #### A 1C, TSH, CBC, CMP, PSA, GFR, ADIFF, VIDH, ANEU #### [address] [address] MALBRon 04-19-2023 U Creatinine 240.2 mg/dL Normal 39.0-259.0 [facility] [place] Comment on above: Performed By: #### M ALBR #### [address] [address] U Microalb 8893 mcg/dL Normal [facility] ([place] Comment on above: Performed By: #### M ALBR #### [address] [address] U Ratio Alb/Cre 37 mcg/mg High 0-30 [facility] ([place] Comment on above: Performed By: #### M ALBR #### [address] [address] LABORATORYOrdered By: SYSTEM SYSTEM on 09-04-2022 Albumin [...] 10:05-0400 Body temperature 97.5 [degF] Rashmi Baltes [employer]ISTICS OFFICER-C Work Phone: [facility] 11-13-2024 10:05-0400 Diastolic blood pressure 80 mm[Hg] Rashmi Baltes LOGISTICS OFFICER-C Work Phone: [facility] 11-13-2024 10:05-0400 Heart rate 91 /min Rashmi Baltes LOGISTICS OFFICER-C Work Phone: [facility] 11-13-2024 10:05-0400 Respiratory rate 18 /min Rashmi Baltes LOGISTICS OFFICER-C Work Phone: [facility] 11-13-2024 10:05-0400 SaO2% (BldA) [Mass fraction] 97 % Rashmi Baltes LOGISTICS OFFICER-C Work Phone: [facility] 11-13-2024 10:05-0400 Systolic blood pressure 144 mm[Hg] Rashmi Baltes LOGISTICS OFFICER-C Work Phone: [facility] 11-10-2024 14:52-0400 Body mass index (BMI) [Ratio] 23.5 kg/m2 Rashmi Baltes LOGISTICS OFFICER-C Work Phone: [facility] 11-10-2024 14:52-0400 Body weight 67.99 kg Rashmi Price LOGISTICS OFFICER-C Work Phone: [facility] 11-09-2024 13:19-0400 Body height 170.18 cm Rashmi Price LOGISTICS OFFICER-C Work Phone: [facility] 10-31-2024 08:11-0400 Inhaled oxygen flow rate 4 L/min Rashmi Price LOGISTICS OFFICER-C Work Phone: [facility] 10-25-2024 02:52-0400 SaO2% (BldA) [Mass fraction] 98.4 % JUDIT HAHN MD [facility] 10-25-2024 01:07-0400 SaO2% (BldA) [Mass fraction] 74.9 % JUDIT HAHN MD [facility] 10-21-2024 14:28-0400 SaO2% (BldA) [Mass fraction] 99.1 % JUDIT HAHN MD [facility] 02-20-2024 14:47-0400 Body temperature 98.6 [degF] NELIDA GROVE DO [facility] 02-20-2024 14:47-0400 Body weight 72.7 kg NELIDA GROVE DO [facility] 02-20-2024 14:47-0400 Diastolic Blood Pressure Non-Invasive 96 mm[Hg] NELIDA GROVE DO [facility] 02-20-2024 14:47-0400 Heart rate 71 /min NELIDA GROVE DO [facility] 02-20-2024 14:47-0400 Respiratory rate 16 /min NELIDA GROVE DO [facility] 02-20-2024 14:47-0400 Systolic Blood Pressure Non-Invasive 165 mm[Hg] NELIDA GROVE DO [facility] Encounters Encounter Date Encounter Type Care Provider Facility Start: 12-10-2024 End: 12-10-2024 ambulatory Rashmi Price LOGISTICS OFFICER-C Work Phone: -[facility] Start: 12-10-2024 End: 12-10-[address] Yasmani Coulter MD -[facility] Work Phone: Start: 12-10-2024 End: 12-10-2024 ambulatory Yasmani BRO Facility:[facility] Start: 11-23-2024 ambulatory Yasmani BRO Facil ity:[facility] Start: 11-23-[address] Yasmani patrick MD -[facility] [place] Work Phone: Start: 10-29-2024 End: 11-13-2024 Evaluation and management of inpatient Dr. Juan Reed MD -[facility] Start: 10-20-2024 End: 10-29-2024 Evaluation and management of inpatient JUDIT HAHN MD [facility] Start: 10-20-2024 End: 10-24-2024 ambulatory RASHMI PRICE CLIMATE CHANGE ANALYST-CLINICAL APPLICATION CONSULTANT Facility:[facility] Start: 10-20-2024 End: 10-24-2024 Outreach Lab KATI MALDONADO CLIMATE CHANGE ANALYST-CLINICAL APPLICATION CONSULTANT [facility] Start: 10-20-2024 End: 10-20-2024 Emergency department patient visit JAMIE TAYLOR MD [facility] Start: 10-08-2024 End: 10-12-2024 ambulatory RASHMI PRICE CLIMATE CHANGE ANALYST-CLINICAL APPLICATION CONSULTANT Facility:[facility] Start: 10-08-2024 End: 10-12-2024 Outreach Lab RASHMI PRICE CLIMATE CHANGE ANALYST-CLINICAL APPLICATION CONSULTANT [facility] Start: 10-05-2024 End: 10-05-2024 ambulatory RASHMI BALTES CLIMATE CHANGE ANALYST-CLINICAL APPLICATION CONSULTANT Facility:[facility] Start: 10-05-2024 End: 10-05-2024 Patient encounter procedure RASHMI BALTES CLIMATE CHANGE ANALYST-CLINICAL APPLICATION CONSULTANT [facility] Start: 07-06-2024 End: 07-06-2024 ambulatory RASHMI BALTES CLIMATE CHANGE ANALYST-CLINICAL APPLICATION CONSULTANT Facility:[facility] Start: 07-06-2024 End: 07-06-2024 Patient encounter procedure RASHMI BALKATIA CLIMATE CHANGE ANALYST-CLINICAL APPLICATION CONSULTANT [facility] Start: 05-18-2024 End: 05-18-2024 ambulatory RASHMI BALTES CLIMATE CHANGE ANALYST-CLINICAL APPLICATION CONSULTANT Facility:[facility] Start: 05-18-2024 End: 05-18-2024 Patient encounter procedure RASHMI BALTES CLIMATE CHANGE ANALYST-CLINICAL APPLICATION CONSULTANT [facility] Start: 04-27-2024 End: 04-27-2024 ambulatory RASHMI ALBERT CLIMATE CHANGE ANALYST-CLINICAL APPLICATION CONSULTANT Facility:[facility] Start: 04-27-2024 End: 04-27-2024 Patient encounter procedure RASHMI BALTES CLIMATE CHANGE ANALYST-CLINICAL APPLICATION CONSULTANT [facility] Start: 04-09-2024 End: 04-13-2024 ambulatory RASHMI BALKATIA CLIMATE CHANGE ANALYST-CLINICAL APPLICATION CONSULTANT Facility:[facility] Start: 04-09-2024 End: 04-13-2024 Outreach Lab RASHMI BALKATIA CLIMATE CHANGE ANALYST-CLINICAL APPLICATION CONSULTANT [facility] Start: 04-03-2024 End: 04-03-2024 ambulatory RASHMI BALTES CLIMATE CHANGE ANALYST-CLINICAL APPLICATION CONSULTANT Facility:[facility] Start: 04-03-2024 End: 04-03-2024 Patient encounter procedure RASHMI BALTES CLIMATE CHANGE ANALYST-CLINICAL APPLICATION CONSULTANT [facility] Start: 02-20-2024 End: 02-20-2024 Emergency department patient visit NELIDA GROVE DO [facility] Start: 01-21-2024 End: 01-21-2024 ambulatory RASHMI BALKAITA CLIMATE CHANGE ANALYST-CLINICAL APPLICATION CONSULTANT Facility:[facility] Start: 01-21-2024 End: 01-21-2024 Patient encounter procedure RASHMI BALKATIA CLIMATE CHANGE ANALYST-CLINICAL APPLICATION CONSULTANT [facility] Start: 01-10-2024 End: 01-10-2024 ambulatory RASHMI BALTES CLIMATE CHANGE ANALYST-CLINICAL APPLICATION CONSULTANT Facility:[facility] Start: 01-10-2024 End: 01-10-2024 Patient encounter procedure RASHMI BALKATIA CLIMATE CHANGE ANALYST-CLINICAL APPLICATION CONSULTANT [facility] Start: 10-09-2023 End: 10-13-2023 ambulatory RASHMI CHAPMANKATIA CLIMATE CHANGE ANALYST-CLINICAL APPLICATION CONSULTANT Facility:[facility] Start: 10-09-2023 End: 10-13-2023 Outreach Lab RASHMI PRICE CLIMATE CHANGE ANALYST-CLINICAL APPLICATION CONSULTANT [facility] Start: 08-30-2023 End: 08-30-2023 ambulatory YASMANI COULTER DO Facility:[facility] Start: 08-30-2023 End: 08-30-2023 Patient encounter procedure YASMANI COULTER DO [facility] Start: 04-19-2023 End: 04-23-2023 ambulatory RASHMI ALBERT CLIMATE CHANGE ANALYST-CLINICAL APPLICATION CONSULTANT Facility:[facility] Start: 09-04-2022 End: 09-04-2022 Patient encounter procedure RASHMI ALBERT CLIMATE CHANGE ANALYST-CLINICAL APPLICATION CONSULTANT [facility] Start: 07-17-2022 End: 07-21-2022 Outreach Lab RASHMI BALKATIA CLIMATE CHANGE ANALYST-CLINICAL APPLICATION CONSULTANT [facility] Start: 04-20-2022 End: 04-20-2022 Patient encounter procedure RASHMI ALBERT CLIMATE CHANGE ANALYST-CLINICAL APPLICATION CONSULTANT [facility] Start: 02-13-2022 End: 02-13-2022 Patient encounter procedure RASHMI PRICE CLIMATE CHANGE ANALYST-CLINICAL APPLICATION CONSULTANT [facility] Start: 04-12-2021 End: 04-12-2021 Patient encounter procedure RASHMI PRICE CLIMATE CHANGE ANALYST-CLINICAL APPLICATION CONSULTANT [facility] Start: 04-08-2021 End: 04-08-[address] KENNY DIETZ DO [facility] Procedures Date Procedure Procedure Detail Performing Clinician Start: 12-10-2024 Urine culture Rashmi Chapmant es LOGISTICS OFFICER-C Work Phone: Start: 12-10-2024 Urnls dip stick/tabl et reagent auto microscopy Rashmi Baltes LOGISTICS OFFICER-C Work Phone: Start: 11-13-2024 Osmolality measureme nt, serum Rashmi Balkatia LOGISTICS OFFICER-C Work Phone: Start: 11-13-2024 Estimated creatinine clearance Rashmi Price LOGISTICS OFFICER-C Work Phone: Start: 11-11-2024 Urnls dip stick/tabl et reagent auto microscopy Rashmi Balkatia LOGISTICS OFFICER-C Work Phone: Start: 11-11-2024 Urine culture Rashmi Chapmant es LOGISTICS OFFICER-C Work Phone: Start: 11-04-2024 X-ray of chest, PA a nd lateral views Rashmi Price LOGISTICS OFFICER-C Work Phone: Start: 11-03-2024 Urine culture Rashmi Balt es LOGISTICS OFFICER-C Work Phone: Start: 10-31-2024 Vitamin D, 25-hydrox y measurement Rashmi Balkatia LOGISTICS OFFICER-C Work Phone: Comment on above: Vitamin D StatusDefi ciency: <20 ng/mL (50nmol/L)Insufficiency: 20-30 ng/mL (50-75 nmol/L)Sufficiency: 30-100 ng/mL (75-250 nmol/L)Toxicity: >100 ng/mL (>250 nmol/L) Start: 07-04-2020 No retinopathy of le ft eye due to diabetes mellitus DR KENNY DIETZ DO Comment on above: [facility] Start: 07-04-2020 No retinopathy of ri ght eye due to diabetes mellitus DR KENNY DIETZ DO Comment on above: [facility] Start: 03-07-2020 Ophthalmic examinati on and evaluation DR KENNY DIETZ DO Comment on above: shu mild, non prolif erative retinopathy; repeat [address] KENNY Doll DO Repair of musculoten dinous cuff of shoulder DR KENNY DIETZ DO Plan of Treatment Date Care Activity Detail Author Start: 11-15-2024 Development of care plan [facility] Start: 11-13-2024 Patient discharge [facility] Start: 11-11-2024 [facility] Start: 11-11-2024 Referral to service [facility] Start: 11-11-2024 Urine culture Urine Culture [facility] Start: 11-04-2024 Removal of urinary catheter [facility] Start: 10-30-2024 Speech therapy management [facility] Start: 10-30-2024 Development of care plan [facility] Start: 10-30-2024 Speech therapy assessment [facility] Start: 10-30-2024 Developing a treatment plan [facility] Start: 10-29-2024 Contact precautions [facility] Start: 10-29-2024 Admission procedure [facility] Start: 10-29-2024 Introduction of urin skyler catheter [facility] Start: 10-29-2024 Measuring intake and output [facility] Start: 10-29-2024 End: 10-30-2024 Patient referral to dietitian [facility] Start: 10-29-2024 Referral for physica l therapy [facility] Start: 10-29-2024 Referral to occupati onal therapist [facility] Start: 10-29-2024 Referral to service [facility] Start: 10-29-2024 Vital signs measurements [facility] Start: 10-29-2024 End: 10-29-2024 [facility] Start: 10-29-2024 Contact precautions [facility] Start: 10-29-2024 Following clinical p athway protocol [facility] Osmolality of Urine [facility] Sodium [Moles/volume ] in Urine [facility] Immunizations Immunization Date Immunization Notes Care Provider Fa cility 10-06-2024 Covid (Spikevax) Rashmi Price LOGISTICS OFFICER-C Work Phone: [facility] 10-06-2024 SARS-CoV-2 (COVID-19 ) [id number] RASHMI PRICE CLIMATE CHANGE ANALYST-CLINICAL APPLICATION CONSULTANT [facility] 10-06-2024 SARS-CoV-2 (COVID-19 ) [id number] RASHMI BALTES CLIMATE CHANGE ANALYST-CLINICAL APPLICATION CONSULTANT [facility] Comment on above: Result Comment: [facility] 01-09-2024 Covid (Spikevax) Rashmi Baltes LOGISTICS OFFICER-C Work Phone: [facility] 01-09-2024 influenza virus vacc ine, unspecified formulation RASHMI PRICE CLIMATE CHANGE ANALYST-CLINICAL APPLICATION CONSULTANT [facility] 01-09-2024 influenza, high dose seasonal, preservative-free Rashmi Baltes LOGISTICS OFFICER-C Work Phone: [facility] 01-09-2024 SARS-CoV-2 (COVID-19 ) [id number] RASHMI BALKATIA CLIMATE CHANGE ANALYST-CLINICAL APPLICATION CONSULTANT [facility] 01-31-2023 Covid (Spikevax) Rashmi Baltes LOGISTICS OFFICER-C Work Phone: [facility] 01-31-2023 influenza virus vacc ine, unspecified formulation YASMANI COULTER DO [facility] 01-31-2023 SARS-CoV-2 (COVID-19 ) [id number] YASMANI COULTER DO [facility] 01-30-2023 RSV Adult BiValent (Abrysvo) Rashmi Price LOGISTICS OFFICER-C Work Phone: [facility] 01-30-2023 RSV vaccine, preF A- preF B, recombinant YASMANI COULTER DO [facility] 01-18-2023 Pneumococcal conjuga te PCV20, polysaccharide FPD760 conjugate, adjuvant, PF; Translations: [Prevnar 20] YASMANI COULTER DO [facility] 09-10-2022 Covid Pfizer Bivalen t Booster Rashmi Price LOGISTICS OFFICER-C Work Phone: [facility] 01-15-2022 Covid Pfizer Bivalen t Booster Rashmi Price LOGISTICS OFFICER-C Work Phone: [facility] 01-03-2022 influenza virus vacc ine, unspecified formulation RASHMI PRICE CLIMATE CHANGE ANALYST-CLINICAL APPLICATION CONSULTANT [facility] 08-03-2021 SARS-CoV-2 (COVID-19 ) mRNA-1273 vaccine RASHMI PRICE CLIMATE CHANGE ANALYST-CLINICAL APPLICATION CONSULTANT [facility] 08-03-2021 tetanus toxoid, redu darline diphtheria toxoid, and acellular pertussis vaccine, adsorbed RASHMI PRICE CLIMATE CHANGE ANALYST-CLINICAL APPLICATION CONSULTANT [facility] 02-24-2021 SARS-CoV-2 (COVID-19 ) mRNA-1273 vaccine RASHMI PRICE CLIMATE CHANGE ANALYST-CLINICAL APPLICATION CONSULTANT [facility] 02-08-2021 influenza virus vacc ine, unspecified formulation RASHMI CHAPMANTES CLIMATE CHANGE ANALYST-CLINICAL APPLICATION CONSULTANT [facility] 06-22-2020 COVID-19, mRNA, LNP- S, PF, 100 mcg/ 0.5 mL dose; Translations: [Moderna COVID-19 Vaccine] DR KENNY DIETZ DO [facility] 05-25-2020 SARS-CoV-2 (COVID-19 ) mRNA-[address] KENNY DIETZ DO [facility] 01-06-2020 influenza, injectabl e, quadrivalent, preservative free; Translations: [Fluarix PF Quadrivalent ] DR KENNY DIETZ DO [facility] 05-16-[address] KENNY DIETZ DO [facility] 03-02-2019 influenza, injectabl e, quadrivalent, preservative free; Translations: [Fluarix PF Quadrivalent ] DR KENNY DIETZ DO [facility] 02-04-[address] KENNY DIETZ DO [facility] 01-28-2018 influenza virus vacc ine, unspecified formulation DR KENNY DIETZ DO [facility] 01-22-2017 influenza virus vacc ine, unspecified formulation DR KENNY DIETZ DO [facility] 01-12-2016 influenza virus vacc ine, unspecified formulation DR KENNY DIETZ DO [facility] 01-18-2015 influenza virus vacc ine, unspecified formulation DR KENNY DIETZ DO [facility] 09-16-2014 pneumococcal conjuga te vaccine, [address] KENNY DIETZ DO [facility] 01-04-2014 influenza virus vacc ine, unspecified formulation DR KENNY DIETZ DO [facility] 08-25-2012 tetanus toxoid, redu darline diphtheria toxoid, and acellular pertussis vaccine, adsorbed DR KENNY DIETZ DO [facility] 12-10-[address] KENNY DIETZ DO [facility] 02-13-2006 pneumococcal polysaccharide vaccine, [address] KENNY DIETZ DO [facility] Payers Date Payer Category Payer Self-pay 2024 Medicare [id number] 2024 Medicare [id number] 2023 Private Health Insurance [id number] 2018 Private Health Insurance [id number] 1940 Unknown [id number] 2.16.8 40.1.197057.3.579.2.627 1938 Unknown [id number] 2.16.8 40.1.619070.3.579.2.627 1938 Unknown [id number] 2.16.8 40.1.226305.3.579.2.627 1938 Unknown [id number] 2.16. 840.1.301839.3.579.2.627 1938 Unknown [id number] 2.16. 840.1.611731.3.579.2.62 1938 Unknown [id number] 2.16. 840.1.040188.3.579.2.62 1938 Unknown [id number] 2.16.8 40.1.519493.3.579.2.627 1938 Unknown [id number] 2.16.8 40.1.234321.3.579.2. 1938 Unknown [id number] 2.16.8 40.1.997774.3.579.2.62 1938 Unknown [id number] 2.16.8 40.1.107904.3.579.2.62 1938 Unknown [id number] 2.16.8 40.1.536631.3.579.2.627 1938 Unknown [id number] 2.16.8 40.1.037367.3.579.2.62 1938 Unknown [id number] 2.16.8 40.1.561905.3.579.2.627 1938 Unknown [id number] 2.16.8 40.1.767871.3.579.2.62 1938 Unknown [id number] 2.16.8 40.1.647373.3.579.2.627 1938 Unknown [id number] 2.16. 840.1.170445.3.579.2.627 Medicare [id number] Unknown [id number] Unknown [id number] 2.16.8 40.1.570129.3.579.2.462 Unknown [id number] 2.16.8 40.1.172311.3.579.2.462 Unknown [id number] 2.16.8 40.1.850385.3.579.2.462 Social History Date Type Detail Facility Start: 12-09-2018 End: 10-29-2024 Never smoked tobacco (finding) [facility] Comment on above: no smoke exposure Start: 1940 Sex Assigned At Male A [facility] Sexual Orientation [facility] Start: 10-29-2018 Sex Male (finding) [facility] Start: 03-11-2019 Tobacco Use Tobacco Use [facility] Sex Male [facility] Medical Equipment Procedure Code Equipment Code Equipment Origin al Text Equipment Identifier Dates Blood Glucose Te st Strips Start: 05-17-2020 Lancets Start: 03-02-[address]ps Start: 05-17-2020 Lancets Start: 03-02-2019 See Instructions , EA=BOX of 100 DM E11.9 one touch ultra blue test strips - patient checks once a day, # 3 EA, 3 Refill(s), Pharmacy: [facility] Type 2 diabetes mellitus, [...] day, # 3 EA, 3 Refill(s), Pharmacy: [facility] Type 2 diabetes mellitus, [...] EA, 3 Refill(s), [facility]: [facility] [facility], Type 2 diabetes mellitus, 172.7, cm, 07/27/21 [...] day, # 1 EA, 3 Refill(s), Pharmacy: [facility] #[id number], Type 2 diabetes mellitus, 172.7, cm, 09/04/22 [...] day, # 1 EA, 3 Refill(s), Pharmacy: [facility] #[id number], Type 2 diabetes mellitus, 172.7, cm, 09/04/22 [...] day, # 1 EA, 3 Refill(s), Pharmacy: [facility]/pharmacy #4605, Type 2 diabetes mellitus, 171, [...] day, # 1 EA, 3 Refill(s), Pharmacy: [facility]/pharmacy #4605, Type 2 diabetes mellitus, 171, [...] day, # 1 EA, 3 Refill(s), Pharmacy: [facility]/pharmacy #4605, Type 2 diabetes mellitus, 171, [...] day, # 1 EA, 3 Refill(s), Pharmacy: [facility]/pharmacy #4605, Type 2 diabetes mellitus, 171, [...] day, # 1 EA, 3 Refill(s), Pharmacy: [facility]/pharmacy #4605, Type 2 diabetes mellitus, 171, [...] 1 EA, 3 Refill(s), [facility] Type 2 diabetes mellitus, 171, cm, [...] 1 EA, 3 Refill(s), [facility], Type 2 diabetes mellitus, 171, cm, [...] 1 EA, 3 Refill(s), [facility], Type 2 diabetes mellitus, 171, cm, [...] day, # 1 EA, 3 Refill(s), Pharmacy: [facility]/pharmacy #4605, Type 2 diabetes mellitus, 171, [...] day, # 1 EA, 3 Refill(s), Pharmacy: [facility]/pharmacy #4605, Type 2 diabetes mellitus, 171, [...] day, # 1 EA, 3 Refill(s), Pharmacy: [facility]/pharmacy #4605, Type 2 diabetes mellitus, 171, cm, 10/09/23 8:54:00 EDT, Height, 71.9, kg, 10/09/23 8:54:00 EDT, Dosing Weight Start: 10-09-2023 See Instructions , One touch delica lancets - patietn checks once a day, # 1 EA, 5 Refill(s), Type 2 diabetes mellitus Start: 03-02-2019 Goals Date Patient Goal Desired Activity /State Functional Status Date Assessment Result Facility 11-13-2024 Functional status Chair [facility] Work Phone: 11-12-2024 Functional status Standard Walker [facility] Work Phone: 02-20-2024 Functional Status Standard Safet y ID band on, Call device within reach, Bed in low position, Wheels locked, Upper/Half-Length side-rails up, Bedside Cart Locked, Safety level maintained [facility] Mental Status Date Assessment Result Facility 11-13-2024 Cognitive function Voice/Name [facility] Work Phone: 11-12-2024 Cognitive function Appropriate;Yadira acuna [facility] Work Phone: 02-20-2024 Mental Status Orientation Oriented x 4 [facility] [place] [facility] Clinical Notes 02-20-2024 to 11-11-2024 Note Date & Type Note Facility 11-11-2024 Discharge summary Note Date/Time November 11, 2024 3:49p m [facility] Medical Records Department [address] [place] [address] Discharge Summary 11/11/24 1542 MR#: [id number] Acct: [id number] Name: TIM ADAMSON Rep #:[id number] : 1940 83 From: Juan Reed MD PCP: VALENTIN Marrufo Status:ADM IN Location: [facility] TC3-1 Providers Date of Admission: 10/29/24 Primary [...] __x__ GRD contraindicated. Reason contraindicated: stable chronic retirement use. The following psychotropic medication was present [...] trials, follow up with Urology. Discharge to [facility] 11/13/2024, [facility] PT/OT/ST, FWW. FWW: Patient is unsafe [...] Discharge instructions: No Additional Instructions: Discharge to [facility] 11/13/2024, [facility] PT/OT/ST, FWW. FWW: Patient is unsafe [...] Reed Chi Primary Care Provider: Rashmi Price LOGISTICS OFFICER Instructions Additional Instructions / Restrictions: Discharge to [facility] 11/13/2024, [facility] PT/OT/ST, FWW. FWW: Patient is unsafe [...] VALENTIN Price; Dr. Juan Reed MD~ Signed [facility] Work Phone: 1(500) 557-384307-09-2025 Discharge summary [facility] Medical Records Department [address] [place] [id number] Discharge Summary 11/11/24 1542 MR#: [id number] Acct: [id number] Name: TIM ADAMSON Rep #:[id number] : 1940 83 From: Juan Reed MD PCP: VALENTIN Marrufo Status:ADM IN Location: [place] [address] Providers Date of Admission: 10/29/24 Primary Care [...] __x__ GRD contraindicated. Reason contraindicated: stable chronic retirement use. The following psychotropic medication was present [...] trials, follow up with Urology. Discharge to [facility] 11/13/2024, [facility] PT/OT/ST, FWW. FWW: Patient is unsafe [...] Discharge instructions: No Additional Instructions: Discharge to [facility] 11/13/2024, [facility] PT/OT/ST, FWW. FWW: Patient is unsafe [...] Reed Chi Primary Care Provider: Rashmi Price LOGISTICS OFFICER Instructions Additional Instructions / Restrictions: Discharge to [facility] 11/13/2024, [facility] PT/OT/ST, FWW. FWW: Patient is unsafe [...] VALENTIN Price; Dr. Juan Reed MD~ Signed [facility]07-09-2025 [facility] Medical Records Department [address] [place] [address] Discharge Summary 11/11/24 154 MR#: [id number] Acct: [id number] Name: TIM ADAMSON Rep #: [id number] : 1940 83 From: Juan Reed MD PCP: VALENTIN Marrufo Status:ADM IN Location: [facility] TCU13-1 Providers Date of Admission: 10/29/24 [...] __x__ GRD contraindicated. Reason contraindicated: stable chronic retirement use. The following psychotropic medication was present [...] (eye) BID eye he (more content not included)...[facility]07-02-2025 Radiology Diagnostic study note [facility] Imaging Services [address] [place], [place] [address] Chest PA and Lateral MR#: [id number] Acct: [id number] Name: TIM ADAMSON Rep #: [id number] : 1940 M 83 From: Mateo Isaac MD PCP: VALENTIN Marrufo Status: ADM IN Study:Chest PA and Lateral Date of Exam: 11/04/24 Exam# [id number] Ordering Dr: Juan Reed MD PROCEDURE: CHEST PA AND LATERAL 11/04/2024 REASON FOR EXAM: COUGH. TECHNIQUE: CHEST PA AND LATERAL COMPARISON: None. FINDINGS: The heart is enlarged. Left basilar linear opacity favoring scar or atelectasis. Developing infiltrate is possible. Trace bilateral pleural effusions. No pneumothorax. RAD/Chest PA and Lateral IMPRESSION: As above. Reading Location: [id number] CC: LOGISTICS OFFICER-C Rashmi Price; Dr. Juan Reed MD ~ Slash Trimmer: Signed [facility]07-02-2025 History and physical note Author Juan Derek [facility] Note Date/Time November 04, 2024 7:31a m [facility] Medical Records Department [address] [place] [address] History & Physical Exam 10/29/24 190 MR#: [id number] Acct: [id number] Name: TIM ADAMSON Rep #:[id number] : 1940 83 From: Juan Reed MD PCP: VALENTIN Marrufo Status:ADM IN Location: [facility] TCU13-1 HPI - General General Date of Admission: 10/29/24 Date of Service: 10/29/24 Chief Complaint: Here for rehabilitation. HPI Narrative TIM ADAMSON, is a 83 Male who presents with followin10/20/2024 Admit to [facility]. Recent fall with rib fracture. Acute delirium [...] weeks bladder rest for urinary retention. 10/27/2024 WOOD POLE TREATER called for increasing oxygen requirement, Lasix 40mg [...] strengthening, prior to discharge home with . [facility] Medical History (Updated 10/29/24 @ 19:33 by [...] __x__ GRD contraindicated. Reason contraindicated: stable chronic retirement use. The following psychotropic medication was present [...] Price; Dr. Juan Reed MD ~* Signed [facility] Work Phone: 1(139) 632-906307-02-2025 History and physical note [facility] Medical Records Department [address] [place] [address] History & Physical Exam 10/29/241908 MR#: [id number] Acct: [id number] Name: TIM ADAMSON Rep #:[id number] : 1940 83 From: Juan Reed MD PCP: VALENTIN Marrufo Status:ADM IN Location: [facility] TCU13-1 HPI - General General Date of Admission: 10/29/24 Date of Service: 10/29/24 Chief Complaint: Here for rehabilitation. HPI Narrative TIM ADAMSON, is a 83 Male who presents with followin10/20/2024 Admit to [facility]. Recent fall with rib fracture. Acute delirium [...] weeks bladder rest for urinary retention. 10/27/2024 WOOD POLE TREATER called for increasing oxygen requirement, Lasix 40mg [...] strengthening, prior to discharge home with . [facility] Medical History (Updated 10/29/24 @ 19:33 by [...] __x__ GRD contraindicated. Reason contraindicated: stable chronic retirement use. The following psychotropic medication was present [...] Price; Dr. Juan Reed MD ~* Signed [facility]06-27-2025 Progress note Author Nimo Fernandez [facility] Note Date/Time October 30, 2024 4:05 pm [facility] Medical Records Department [address] [place] [address] Progress Note - Pharmacy 10/30/24 1533 MR#: [id number] Acct: [id number] Name: TIM ADAMSON Rep #:[id number] : 1940 83 From: Nimo Fernandez PCP: VALENTIN Marrufo Status:ADM IN Location: [facility] Documented by User: Nimo Fernandez 10/30/24 [...] 10/30/24 10:00 10/30/24 08:12 Fluticasone 0.05% 1 [place]utz Nasal.Sry NASAL 1 spray DAILY RAYNA Administration [...] by Juan Reed MD> CC: ~ Signed [facility] Work Phone: 1(768) 855-429306-27-2025 Progress note [facility] Medical Records Department [facility] [place] [place] [address] Progress Note - Pharmacy 10/30/24 1533 MR#: [id number] Acct: [id number] Name: TIM ADAMSON Rep #:[id number] : 1940 83 From: Nimo Fernandez PCP: VALENTIN Marrufo Status:ADM IN Location: [place] [address] Documented by User: Nimo Fernandez 10/30/24 16:01 [...] 10/30/24 10:00 10/30/24 08:12 Fluticasone 0.05% 1 Lutz Nasal.Sry NASAL 1 spray DAILY RAYNA Administration Latanoprost 1 drp 10/29/24 22:00 10/29/24 20:27 Latanoprost 0.005% 1 Bottle OPHTHALMIC 1 drp QHS RYANA Administration Magnesium Citrate 300 ml 10/29/24 19:42 [...] User: Dr. Juan Reed MD 10/30/24 16:05 [facility] RX Drug Regimen Review Provider Comments Provider responsibility Provider Comments to Recommendations by Pharmacy Agree 10/30/24 1601 Nimo Light Signature (if applicable): 10/30/24 1605 CC: ~ Signed [facility]06-26-2025 [facility] Medical Records Department [address] [place] [address] History Physical Exam 10/29/241908 MR#: [id number] Acct: [id number] Name: KRISTOPHERTIM Enoc Rep #: [id number] : 1940 83 From: Juan Reed MD PCP: VALENTIN Marrufo Status:ADM IN [facility]PI - General General Date of Admission: 10/29/24 Date of Service: 10/29/24 Chief Complaint: Here for rehabilitation. HPI Narrative TIM ADAMSON, is a 83 Male who presents with followin10/20/2024 Admit to [facility]. Recent fall with rib fracture. Acute delirium [...] weeks bladder rest for urinary retention. 10/27/2024 [employer]LE [employer] called for increasing oxygen requirement, Lasix 40mg [...] strengthening, prior to discharge home with . [facility] Medical History (Updated 10/29/24 @ 19:33 by [...] or nasal discharge C (more content not included)...[facility]06-26-2025 Evaluation note* Diagnosis Onset Date Resolution [...] 3:48pm Vascular dementia acute October 292024 3:48pm [facility] Work Phone: 1(754) 141-652406-26-2025 Evaluation note* Diagnosis Onset Date Resolution Status Admit Date Anxiety acute October 29 3:48pm BPH (benign prostatic hyperplasia) acute October 29, 2024 3:48pm Debility acute October 29 3:48pm Essential (primary) hypertension acute October 29, 2024 3:48pm Glaucoma acute October 29 3:48pm Hyperlipidemia, unspecified acute October 29, 2024 3:48pm Iron deficiency anemia acute Ju tn 2024 3:48pm Type 2 diabetes mellitus wit [...] 025 3:48pm Pneumonia resolved October 29 3:48pm [facility] Work Phone: 1(287) 104-484506-26-2025 Discharge summary Date of Service 10/29/2024 Discharge Diagnosis 1. Cardiac arrest 2. Diastolic dysfunction with heart failure 3. Acute hypoxic respiratory failure 4. Acute urinary retention 5. Hyponatremia 6. Altered mental state 7. Type 2 diabetes mellitus 8. Anxiety 9. Hyperlipidemia 10. HTN Hospital Course This is a split/shared visit with Dr. Prado. Pt is an 83-year-old male with history of essentialhypertension, rvq-gycpbjd-txocuwshc type 2 diabetes mellitus, dementia, and hyperlipidemia [...] PT/OT recommending SNF at discharge. Accepted at [facility]. Pt medically optimized for discharge, family [...] RASHMI PRICE APRN-ANGIE When:Within 1-2 days Where:[address] [place] [address]- [phone] Additional Information: Please call the office to [...] by PHUONG NEAL on 10/29/2024 02:01 PM [facility]6639 Hospital Discharge instructions Patient Education 10/29/2024 14:20:21 [...] breathing. Follow these instructions at home: Take irkt-iuh-begnjpy and prescription medicines only as told by [...] 04/27/2014 Document Revised: 04/04/2018 Document Reviewed: 11/07/2016 Tomorrowish Patient Education 2020 15MinutesNOW. Follow Up Care 10/20/2024 13:54:14 With:Discharge to [facility], skilled, ; ambulance transport arranged for 3pm through [facility], Ext. [phone] Address:Unknown When:1-2 days With:[facility] Address: When:Within 4 Week(s) With:SKYLAR DONG MD, [facility] Address: [address] [facility] [address] [place] [address]- [phone] When:Within 2 Week(s) only if needed With:BELKYS ALCANTAR MD Address: [address] [place] [address] [address] [facility] [place] [address]- [phone] When:Within 4 Week(s) With:RASHMI PRICE APRN-[facility] Address: [address] [facility] [place] [address]- [phone] When:1-2 days Comments:Please call the office to schedule a hospital follow up appointment. [facility] 06-26-2025 Note Discharge Instructions Thank you [...] OV 01/06/2025 10:30 AM EDT RASHMI PRICE [facility] [address] [place] [phone] Confirmed Follow Up Appointments Follow Up with Discharge to [facility], skilled, ; ambulance transport arranged for 3pm through [facility], Ext. [phone] When:Within 1-2 days Follow Up with [facility] When:In 4 weeks Follow Up with SKYLAR DONG MD, [facility] When:In 2 weeks , only if needed Where:[address] [facility] [address] [place] [address]- [phone] Follow Up with BELKYS ALCANTAR MD When:In 4 weeks Where:[address] [facility] [place] [address]- [phone] Follow Up with RASHMI PRICE When:Within 1-2 days Where:[address] [place], [place] [address]- [phone] Additional Information: Please call the office to [...] breathing. Follow these instructions at home: Take xqje-tru-qgongir and prescription medicines only as told by [...] Document Reviewed: 11/07/2016 Elsevier Patient Education 2020 [employer] Additional Information VACCINATE! IT SAVES LIVES! Members of the community who have not yet received the COVID-19 vaccine and would like to receive it can visit one of [facility] vaccine clinics. There are many vaccine clinic locations within the [facility]. For locations and available times, please visit [email or web address].gov/. It is important to note that some COVID mobile vaccine clinics are held outdoors and may be canceled in rainy or stormy conditions. To learn more about pediatric vaccinations (ages 5-11), we invite you to visit the [facility] webpage. https://www.Aktinos.org/pages/9244-Ivmfc-Rxgmzzercus-Cwdrzmolfp-Wuvxs-Rex stions.htmlTo learn more about the COVID-19 vaccine, we invite you to visit the CDC website for a list of frequently asked questions.https://www.cdc.gov/coronavirus/2019-ncov/vaccines/faq.html [facility] Patient Portal Access Instructions: Stay connected with your healthcare team and access your personal medical information anytime with the [employer] Patient Portal. Please follow the directions below to create your [employer] account: 1.Access the email account you provided upon registration to the hospital/physician office.2.Look for an invitation email from [facility].3.Open the email and access the invitation link: AcceptInvitation to [employer].4.Fill in the required small to create your account. To access your account, visit [email or web address]. Click the blue button labeled "Access Patient [...] who you will allowto register on the [facility] [employer] [facility] Patient Portal for access to your information. You can also access the [facility] Patient Portal on the [facility] darrel. Simply click on "Patient Portal" and then log into your account. If you would like to receive a full copy of your medical records, please contact the [facility] Medical Records Department by calling [phone], Saturday through Saturday between 8 a.m. and [...] Call your local pharmacy or go to http://AmideBio/[email or web address] to find one close to you.3.Make use of household items: Use cat litter or old coffee grounds to dispose medications if other options arenot available. Mix your drugs with these household products, seal them in an airtight container andthrow it into the garbage. Call [facility]: [phone] to be sure your drugs can be [...] aware that I should contact my doctor. Patient/Kiln Stacker Signature: Date/Time: Relationship to Patient: Witness Name/Signature: Date/Time: [facility] HospitalUgkbuqqh44-82-0737 Note Discharge Instructions Thank you for allowing [...] OV 01/06/2025 10:30 AM EDT RASHMI PRICE APRN-ANGIE [address] [phone] Confirmed Follow Up Appointments Follow Up with Discharge to [facility], skilled, ; ambulance transport arranged for 3pm through [facility], Ext. [phone] When:Within 1-2 days Follow Up with [facility] When:In 4 weeks Follow Up with SKYLAR DONG MD, [facility] When:In 2 weeks , only if needed Where:[address] [place] [address]- [phone] Follow Up with BELKYS ALCANTAR MD When:In 4 weeks Where:[address] [facility] [place] [address]- [phone] Follow Up with RASHMI PRICE APRN-ANGIE When:Within 1-2 days Where:[address] [facility] [place], [place] [address]- [phone] Additional Information: Please call the office to [...] to receive it can visit one of [facility] vaccine clinics. There are many vaccine clinic locations within the [facility]. For locations and available times, please visit [email or web address].gov/. It is important to note that some COVID mobile vaccine clinics are held outdoors and may be canceled in rainy or stormy conditions. To learn more about pediatric vaccinations (ages 5-11), we invite you to visit the [facility] webpage. https://www.[facility].org/pages/3741-Reltw-Nskqkajsjct-Hbnxrunnca-Fiavw-Ydo stions.htmlTo learn more about the COVID-19 vaccine, we invite you to visit the CDC website for a list of frequently asked questions.https://www.cdc.gov/coronavirus/2019-ncov/vaccines/faq.html [facility] Patient Portal Access Instructions: Stay connected with your healthcare team and access your personal medical information anytime with the [facility] Patient Portal. Please follow the directions below to create your You[employer] account: 1.Access the email account you provided upon registration to the hospital/physician office.2.Look for an invitation email from [facility].3.Open the email and access the invitation link: AcceptInvitation to [facility] [employer].4.Fill in the required small to create your account. To access your account, visit [email or web address]. Click the blue button labeled "Access Patient [...] who you will allowto register on the [facility] Patient Portal for access to your information. You can also access the [facility] [employer] Patient Portal on the [facility] darrel. Simply click on "Patient Portal" and then log into your account. If you would like to receive a full copy of your medical records, please contact the [facility] Medical Records Department by calling [phone], Saturday through Saturday between 8 a.m. and [...] Call your local pharmacy or go to http://bit.ly/5M4Hg4y to find one close to you.3.Make use of household items: Use cat litter or old coffee grounds to dispose medications if other options arenot available. Mix your drugs with these household products, seal them in an airtight container andthrow it into the garbage. Call [facility]: [phone] to be sure your drugs can be [...] aware that I should contact my doctor. Patient/Kiln Stacker Signature: Date/Time: Relationship to Patient: Witness Name/Signature: Date/Time: [facility] HospitalDcwlsest42-04-5552 Discharge summary Date of Service 10/29/2024 Discharge Diagnosis 1. Cardiac arrest 2. Diastolic dysfunction with heart failure 3. Acute hypoxic respiratory failure 4. Acute urinary retention 5. Hyponatremia 6. Altered mental state 7. Type 2 diabetes mellitus 8. Anxiety 9. Hyperlipidemia 10. HTN Hospital Course This is a split/shared visit with Dr. Prado. Pt is an 83-year-old male with history of essentialhypertension, uxx-wkgmgxq-pbnqspxnw type 2 diabetes mellitus, dementia, and hyperlipidemia [...] PT/OT [facility] SN[facility] at discharge[facility] Pt medically optimized for discharge, family in [...] RASHMI PRICE APRN-ANGIE When:Within 1-2 days Where:[address] [place], [place] [id number]- [phone] Additional Information: Please call the office to [...] by PHUONG NEAL on 10/29/2024 02:01 PM [facility] HospitalMnljjhfc22-66-7298 Cardiology Progress note Subjective Patient continued to [...] tab(s), Oral, qDay fluticasone nasal 0.05 mg/inh Lutz 50 mcg 1 spray(s), Nasal, qDay guaifenesin [...] BELKYS ALCANTAR MD on 10/28/2024 08:29 PM [facility] HospitalUvgsceqw97-84-8464 Note Date of Service 10/28/2024 Chief Complaint Hypoxia Subjective Pt is an 83-year-old male with history of essential hypertension, lqo-ajqnvna-tyjsprayv type 2 diabetes mellitus, dementia, and hyperlipidemia [...] tab(s), Oral, qDay fluticasone nasal 0.05 mg/inh Lutz 50 mcg 1 spray(s), Nasal, qDay guaifenesin [...] by PHUONG NEAL on 10/28/2024 12:17 PM [facility] HospitalKenjlpwv73-04-7199 Note* Exam Date Time Procedure Performing Provider Status 10/28/24 12:49 PM XR Chest 1 View SOSA YAO DO; Auth (Verified) [id number] ORIGINAL EXAMINATION: ONE XRAY VIEW OF THE [...] 10/28/2024 4:31:31 PM Ordering Provider: ROSI PRADO [facility] HospitalNmcombtn40-85-9556 Note Date of Service 10/28/2024 Chief Complaint Hypoxia Subjective Pt is an 83-year-old male with history of essential hypertension, jll-zpclyfv-cfqxkqpft type 2 diabetes mellitus, dementia, and hyperlipidemia [...] tab(s), Oral, qDay fluticasone nasal 0.05 mg/inh Lutz 50 mcg 1 spray(s), Nasal, qDay guaifenesin [...] by PHUONG NEAL on 10/28/2024 12:[address]24-2025 Note Date of Service 10/27/2024 Chief Complaint Shortness of breath, confusion Subjective 83-year-old male with history of essential hypertension, yai-crmlejj-phpuqneji type 2 diabetes mellitus, dementia, hyperlipidemia presented [...] tab(s), Oral, qDay fluticasone nasal 0.05 mg/inh Lutz 50 mcg 1 spray(s), Nasal, qDay guaifenesin [...] by DEIDRA RODRIGUEZ on 10/27/2024 12:03 PM [facility] HospitalOugekavl88-46-2200 Note Date of Service 10/27/2024 Chief Complaint Shortness of breath, confusion Subjective 83-year-old male with history of essential hypertension, ejs-dgdlzgk-wamqrfjeo type 2 diabetes mellitus, dementia, hyperlipidemia presented [...] tab(s), Oral, qDay fluticasone nasal 0.05 mg/inh Lutz 50 mcg 1 spray(s), Nasal, qDay guaifenesin [...] by DEIDRA RODRIGUEZ on 10/27/2024 12:03 PM [facility] HospitalSpoloepo45-08-3301 Cardiology Progress note Date of Service 10/27/2024 [...] sounds bilaterally, crackles in bilateral bases, no tobacco stemmer muscle use, supplemental O2 in place Heart: [...] tab(s), Oral, qDay fluticasone nasal 0.05 mg/inh Lutz 50 mcg 1 spray(s), Nasal, qDay heparin [...] PM Digitally Signed by BELKYS ALCANTAR MD [facility] HospitalIckbgpff12-63-3172 Note Date of Service 10/26/2024 Chief Complaint altered mental status Subjective 83-year-old male with history of essential hypertension, iua-mkkxbgv-mzxmzxjdf type 2 diabetes mellitus, dementia, hyperlipidemia presented [...] tab(s), Oral, qDay fluticasone nasal 0.05 mg/inh Lutz 50 mcg 1 spray(s), Nasal, qDay heparin [...] by DEIDRA RODRIGUEZ on 10/26/2024 12:55 PM [facility] HospitalNzlujwon97-15-8674 Note* Exam Date Time Procedure Performing Provider Status 10/26/24 9:[address] Thorax w/ Contrast GIOVANI WARREN MD; Auth (Verified) [id number] ORIGINAL EXAMINATION: CT OF THE CHEST WITH [...] Date: 10/27/2024 3:57:32 AM Ordering Provider: BELKYS [facility]06-23-2025 Note Reason for Consultation Admission From: [...] Addis Puente RN on 10/26/2024 04:36 PM [facility] HospitalSgckugjr84-64-7462 Note* Exam Date Time Procedure Performing Provider Status 10/26/24 4:05 PM Echocardiogram, Adult - CV ALDO ALCANTAR MD; Auth (Verified) [facility] HospitalVtezkyun85-48-6080 Cardiology Consult note Date of Service 10/25/2024 [...] Retired. 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 Appetite [...] (COVID-19) mRNA-1273 vaccine: 0 unknown unit (05/25/20) tetanus/diphtheria/pertussMUL.ORD!u84899: 0.5 unknown unit (08/03/21) tetanus/diphtheria/pertussMUL.ORD!m81339: 0 unknown unit (08/25/12) zoster vaccine, inactivated: 1 unknown unit (05/16/19) zoster vaccine, inactivated: 1 unknown unit (02/04/19) Digitally Signed by JOE CABRERA MD on 10/25/2024 10:46 AM [facility] HospitalGgdkfeea82-96-1930 Cardiology Progress note Date of Service 10/26/2024 [...] sounds bilaterally, crackles in bilateral bases, no tobacco stemmer muscle use, supplemental O2 in place Heart: [...] tab(s), Oral, qDay fluticasone nasal 0.05 mg/inh Lutz 50 mcg 1 spray(s), Nasal, qDay heparin [...] PM Digitally Signed by BELKYS ALCANTAR MD [facility] HospitalNehxkixf80-61-8513 Note Date of Service 10/26/2024 Chief Complaint altered mental status Subjective 83-year-old male with history of essential hypertension, mcg-fibitdt-ztieajjpa type 2 diabetes mellitus, dementia, hyperlipidemia presented [...] tab(s), Oral, qDay fluticasone nasal 0.05 mg/inh Lutz 50 mcg 1 spray(s), Nasal, qDay heparin [...] - ipratropium 2.5 mg-0.5 mg/3 mL Inhal Ebl UD 3 mL, Inhalation, q4hRT dextrose 50% [...] by DEIDRA RODRIGUEZ on 10/26/2024 12:55 PM [facility] HospitalRrwtlbbr87-83-9117 Note* Exam Date Time Procedure Performing Provider Status 10/26/24 10:17 AM XR Chest 1 View MIRIAN DENNY MD; Au th (Verified) [id number] ORIGINAL EXAMINATION: ONE XRAY VIEW OF THE [...] 10/26/2024 10:31:55 AM Ordering Provider: DEIDRA RODRIGUEZ [facility] HospitalNmylozac69-38-6853 Urology Progress note Date of Service 10/25/2024 [...] tab(s), Oral, qDay fluticasone nasal 0.05 mg/inh Lutz 50 mcg 1 spray(s), Nasal, qDay heparin [...] LILLY MCINTOSH MD on 10/25/2024 03:54 PM [facility] HospitalKjjodmpg78-45-3866 History and physical note Date of Service [...] the the hospitalist. ABG showed pH 7.508, MEY467, PO2 37.5, O2 sat 74.9 on 15 [...] the the hospitalist. ABG showed pH 7.508, NRL385, PO2 37.5, O2 sat 74.9 on 15 [...] Retired. 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 Appetite [...] (COVID-19) mRNA-1273 vaccine: 0 unknown unit (05/25/20) tetanus/diphtheria/pertussMUL.ORD!u90857: 0.5 unknown unit (08/03/21) tetanus/diphtheria/pertussMUL.ORD!n03266: 0 unknown unit (08/25/12) zoster vaccine, inactivated: 1 unknown unit (05/16/19) zoster vaccine, inactivated: 1 unknown unit (02/04/19) Code Status Code Status - Ordered -- 10/20/24 22:35:00 EDT, Full Code, Constant Order Digitally Signed by LUIS SAMUELS DO on 10/25/2024 06:18 AM [facility] HospitalWeostxaz62-01-1487 Evaluation + Plan noteExtracted from: Title:MICU History [...] the the hospitalist. ABG showed pH 7.508, YJA464, PO2 37.5, O2 sat 74.9 on 15 [...] was given normal saline bolus in the [place] ED, sodium did improve from 122-123. Continue [...] Appointment Date:01/06/2025 10:30:00 AM Scheduled Provider:RASHMI PRICE Location:[facility] Appointment Type:PC OV Diagnostic Tests Pending * Culture Respiratory with Gram Stain 10/25/24 [facility] 06-22-2025 Cardiology Consult note Date of [...] Retired. 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 Appetite [...] (COVID-19) mRNA-1273 vaccine: 0 unknown unit (05/25/20) tetanus/diphtheria/pertussMUL.ORD!a90203: 0.5 unknown unit (08/03/21) tetanus/diphtheria/pertussMUL.ORD!b75492: 0 unknown unit (08/25/12) zoster vaccine, inactivated: 1 unknown unit (05/16/19) zoster vaccine, inactivated: 1 unknown unit (02/04/19) Digitally Signed by JOE CABRERA MD on 10/25/2024 10:46 AM [facility] HospitalCeczczpu56-14-5212 Note. MICRO - Microbiology PROCEDURE: Streptococcus Pneumoniae [...] Locations *1: This test was performed at: [address], [facility] , [facility]06-22-2025 Note. MICRO - Microbiology PROCEDURE: Legionella [...] Locations *1: This test was performed at: [address], [facility] , [facility]-22-2025 Note Date of Service 10/25/2024 I discussed the patient's CODE STATUS with his healthcare power of estate attorney Lilly Monroy who wanted to switch his CODE STATUS to DNR/DNI. This DNR/DNI CODE STATUS was explained further to his POA who verbalized understanding and was agreeable to switching the patient's CODE STATUS to DNR/DNI. Digitally Signed by LUIS SAMUELS DO on 10/25/2024 04:51 AM [facility] HospitalLqkrbvtx88-29-5816 Note* Exam Date Time Procedure Performing Provider Status 10/25/24 2:07 AM XR Chest 1 View TIEN CAN MD; Aut h (Verified) [id number] ORIGINAL EXAMINATION: ONE XRAY VIEW OF THE [...] Sign Date: 10/25/2024 2:15:00 AM Ordering Provider: [facility]06-22-2025 History and physical note Date of Service [...] the the hospitalist. ABG showed pH 7.508, NLY729, PO2 37.5, O2 sat 74.9 on 15 [...] the the hospitalist. ABG showed pH 7.508, VYL836, PO2 37.5, O2 sat 74.9 on 15 [...] per year., 07/08/2024 Employment/School Status: Retired. Description: Bonniejodicelina., 04/09/2024 Home/Environment self Primary Mill Tender:., 12/09/2018 Nutrition/Health Type of diet: Regular. Appetite [...] (COVID-19) mRNA-1273 vaccine: 0 unknown unit (05/25/20) tetanus/diphtheria/pertussMUL.ORD!h33532: 0.5 unknown unit (08/03/21) tetanus/diphtheria/pertussMUL.ORD!a96501: 0 unknown unit (08/25/12) zoster vaccine, inactivated: 1 unknown unit (05/16/19) zoster vaccine, inactivated: 1 unknown unit (02/04/19) Code Status Code Status - Ordered -- 10/20/24 22:35:00 EDT, Full Code, Constant Order Digitally Signed by LUIS SAMUELS DO on 10/25/2024 06:18 AM [facility] HospitalNfoziiul55-33-6497 Note Date of Service 10/24/24 Reason for Consultation transfer out of ICU Referring Physician ICU History of Present Illness 83-year-old male with history of essential hypertension, iyd-lhccgub-txbgkrkhc type 2 diabetes mellitus, dementia, hyperlipidemia presented [...] Timed Study (collect at specified time), Blood, [id number], for 14 day(s), Preferred Lab: [facility], Stop date 11/07/24 5:00:00 EDT Complete Metabolic Panel(CMP), 10/25/24 5:00:00 EDT, Timed Study (collect at specified time), Blood, [id number], for 14 day(s), Preferred Lab: [facility], Stop date 11/07/24 5:00:00 EDT Consult [...] Nurse and Monitor, Full Code, 70.5 kg, [facility]... Electrocardiogram(EKG), 10/24/24 7:28:00 EDT, follow up ekg from patients cardiac arrest Ferritin, 10/25/24 5:00:00 EDT, Next AM Draw (one day only), Blood, Once, Preferred Lab: [facility], Stop date 10/25/24 5:00:00 EDT Iron Studies, 10/25/24 5:00:00 EDT, Next AM Draw (one day only), Blood, Once, Preferred Lab: [facility], Stop date 10/25/24 5:00:00 EDT Magnesium Level(MG Level), 10/25/24 5:00:00 EDT, Timed Study (collect at specified time), Blood, [id number], for 14 day(s), Preferred Lab: [facility], Stop date 11/07/24 5:00:00 EDT Transfer/Change [...] (one day only), Blood, Once, Preferred Lab: [facility], Stop date 10/25/24 5:00:00 EDT I [...] CODE STATUS with patient's healthcare power of estate attorney. They do wish to continue full [...] Retired. Description: Gurdeep., 04/09/2024 Home/Environment self Primary Mill Tender:., 12/09/2018 Nutrition/Health Type of diet: Regular. Appetite [...] (COVID-19) mRNA-1273 vaccine: 0 unknown unit (05/25/20) tetanus/diphtheria/pertussMUL.ORD!s84241: 0.5 unknown unit (08/03/21) tetanus/diphtheria/pertussMUL.ORD!e33648: 0 unknown unit (08/25/12) zoster vaccine, inactivated: 1 unknown unit (05/16/19) zoster vaccine, inactivated: 1 unknown unit (02/04/19) [1] Echocardiogram, Adult - CV; Rhina Harris B Stoker Erector 05/18/2024 13:19 EST [2] Echocardiogram, Adult - CV; Tanesha Harrise B Stoker Erector 05/18/2024 13:19 EST Digitally Signed by NATASHA TALAVERA MD on 10/24/2024 03:55 PM [facility] [id number] Note Date of Service 10/24/24 Reason for Consultation transfer out of ICU Referring Physician ICU History of Present Illness 83-year-old male with history of essential hypertension, ify-glzwqye-aazjpwcpm type 2 diabetes mellitus, dementia, hyperlipidemia presented [...] Timed Study (collect at specified time), Blood, [id number], for 14 day(s), Preferred Lab: [facility], Stop date 11/07/24 5:00:00 EDT Complete Metabolic Panel(CMP), 10/25/24 5:00:00 EDT, Timed Study (collect at specified time), Blood, [id number], for 14 day(s), Preferred Lab: [facility], Stop date 11/07/24 5:00:00 EDT Consult [...] Nurse and Monitor, Full Code, 70.5 kg, [facility]... Electrocardiogram(EKG), 10/24/24 7:28:00 EDT, follow up ekg from patients cardiac arrest Ferritin, 10/25/24 5:00:00 EDT, Next AM Draw (one day only), Blood, Once, Preferred Lab: [facility], Stop date 10/25/24 5:00:00 EDT Iron Studies, 10/25/24 5:00:00 EDT, Next AM Draw (one day only), Blood, Once, Preferred Lab: [facility], Stop date 10/25/24 5:00:00 EDT Magnesium Level(MG Level), 10/25/24 5:00:00 EDT, Timed Study (collect at specified time), Blood, [id number], for 14 day(s), Preferred Lab: [facility], Stop date 11/07/24 5:00:00 EDT Transfer/Change [...] day only), Blood, Once, Preferred Lab: [facility], Stop date 10/25/24 5:00:00 EDT I [...] CODE STATUS with patient's healthcare power of estate attorney. They do wish to continue full [...] Retired. Description: Gurdeep., 04/09/2024 Home/Environment self Primary Mill Tender:., 12/09/2018 Nutrition/Health Type of diet: Regular. Appetite [...] (COVID-19) mRNA-1273 vaccine: 0 unknown unit (05/25/20) tetanus/diphtheria/pertussMUL.ORD!f82804: 0.5 unknown unit (08/03/21) tetanus/diphtheria/pertussMUL.ORD!p79415: 0 unknown unit (08/25/12) zoster vaccine, inactivated: 1 unknown unit (05/16/19) zoster vaccine, inactivated: 1 unknown unit (02/04/19) [1] Echocardiogram, Adult - CV; Rhina Harris Stoker Erector 05/18/2024 13:19 EST [2] Echocardiogram, Adult - CV; Tanesha Harrise Fred Stoker Erector 05/18/2024 13:19 EST Digitally Signed by NATASHA TALAVERA MD on 10/24/2024 03:55 PM [facility] [id number] Note Date of Service 10/24/24 Reason for Consultation transfer out of ICU Referring Physician ICU History of Present Illness 83-year-old male with history of essential hypertension, qwl-nvoivmh-ccwuqypec type 2 diabetes mellitus, dementia, hyperlipidemia presented [...] Timed Study (collect at specified time), Blood, [id number], for 14 day(s), Preferred Lab: [facility], Stop date 11/07/24 5:00:00 EDT Complete Metabolic Panel(CMP), 10/25/24 5:00:00 EDT, Timed Study (collect at specified time), Blood, [id number], for 14 day(s), Preferred Lab: [facility], Stop date 11/07/24 5:00:00 EDT Consult [...] Nurse and Monitor, Full Code, 70.5 kg, [facility]... Electrocardiogram(EKG), 10/24/24 7:28:00 EDT, follow up ekg from patients cardiac arrest Ferritin, 10/25/24 5:00:00 EDT, Next AM Draw (one day only), Blood, Once, Preferred Lab: [facility], Stop date 10/25/24 5:00:00 EDT Iron Studies, 10/25/24 5:00:00 EDT, Next AM Draw (one day only), Blood, Once, Preferred Lab: [facility], Stop date 10/25/24 5:00:00 EDT Magnesium Level(MG Level), 10/25/24 5:00:00 EDT, Timed Study (collect at specified time), Blood, [id number], for 14 day(s), [facility], Stop date 11/07/24 5:00:00 EDT Transfer/Change in [...] (one day only), Blood, Once, Preferred Lab: [facility], Stop date 10/25/24 5:00:00 EDT I [...] CODE STATUS with patient's healthcare power of estate attorney. They do wish to continue full [...] Retired. Description: Gurdeep., 04/09/2024 Home/Environment self Primary Mill Tender:., 12/09/2018 Nutrition/Health Type of diet: Regular. Appetite [...] (COVID-19) mRNA-1273 vaccine: 0 unknown unit (05/25/20) tetanus/diphtheria/pertussMUL.ORD!e26244: 0.5 unknown unit (08/03/21) tetanus/diphtheria/pertussMUL.ORD!f95664: 0 unknown unit (08/25/12) zoster vaccine, inactivated: 1 unknown unit (05/16/19) zoster vaccine, inactivated: 1 unknown unit (02/04/19) [1] Echocardiogram, Adult - CV; Rhina Harris Stoker Erector 05/18/2024 13:19 EST [2] Echocardiogram, Adult - CV; Tanesha Harrise B Stoker Erector 05/18/2024 13:19 EST Digitally Signed by NATASHA TALAVERA MD on 10/24/2024 03:55 PM [facility] HospitalSzgkpwgu45-05-2319 Urology Consult note Date of Service 10/24/2024 Reason for Consultation Urinary retention Referring Physician Sadaf History of Present Illness Mr. Adamson is [...] Retired. 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 Appetite [...] (COVID-19) mRNA-1273 vaccine: 0 unknown unit (05/25/20) tetanus/diphtheria/pertussMUL.ORD!p72878: 0.5 unknown unit (08/03/21) tetanus/diphtheria/pertussMUL.ORD!c97311: 0 unknown unit (08/25/12) zoster vaccine, inactivated: 1 unknown unit (05/16/19) zoster vaccine, inactivated: 1 unknown unit (02/04/19) Digitally Signed by LILLY MCINTOSH MD on 10/25/2024 03:43 PM [facility] HospitalWywhtoyo09-06-5053 Note* Exam Date Time Procedure Performing Provider Status 10/24/24 3:02 PM XR Chest 1 View HUBER CORRAL DO; A [facility] (Verified) [id number] ORIGINAL EXAMINATION: Exam Title:ONE XRAY VIEW OF THE CHEST Completed Time: 10/24/2024 3:02 pm Procedure Description:CHEST ONE VIEW AP/PA COMPARISON: October 21, 2024 chest x-ray HISTORY: ORDERING SYSTEM PROVIDED HISTORY: Reason for Exam: crackles bilaterally recent cardiac arrest FINDINGS: Mild cardiomegaly. Jupd-iv-hopjutmb pulmonary vascular congestion. Basilar atelectasis. No evidence [...] Date: 10/24/2024 3:04:51 PM Ordering Provider: NATASHA SADAF [facility] [id number] Note* Exam Date Time Procedure Performing Provider [...] Electronic Signature: TAL MALIK MD 10/25/2024 15:10:11 [facility] HospitalJcatsucv25-82-0599 Note* Exam Date Time Procedure Performing Provider Status 10/23/24 8:[address] Head or Brain w/o Contrast NÉSTOR SNYDER MD; Auth (Verified) [id number] ORIGINAL EXAMINATION: CT OF THE HEAD WITHOUT [...] Sign Date: 10/23/2024 8:49:06 PM Ordering Provider: [facility]06-20-2025 Note Date of Service 10/23/2024 Subjective 83-year-old [...] tab(s), Oral, qDay fluticasone nasal 0.05 mg/inh Lutz 50 mcg 1 spray(s), Nasal, qDay heparin [...] SHYANNE GUTHRIE MD on 10/23/2024 12:23 PM [facility] [id number] Neurology Progress note Date of Service 10/23/24 [...] person and BD only 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 Language: Normal fluency, normal [...] distally RLE: 5/5 proximally, 5/5 distally Coordination: Sgeqhn-ubia-tutttf movements: No ataxia present Reflexes: R: L [...] tab(s), Oral, qDay fluticasone nasal 0.05 mg/inh Lutz 50 mcg 1 spray(s), Nasal, qDay heparin [...] management per medical team -Case discussed with GAS STATION ATTENDANT -Patient counseled the risks and health hazards [...] by SHANAE AVILA on 10/23/2024 12:53 PM [facility] HospitalLtxbcpvc46-00-0213 Note* Exam Date Time Procedure Performing Provider Status 10/22/24 5:27 PM MRI Brain w/o Contrast RASHMI AGUIRRE DO; Auth (Verified) [id number] ORIGINAL EXAMINATION: MRI OF THE BRAIN WITHOUT [...] Sign Date: 10/22/2024 5:41:11 PM Ordering Provider: [facility]06-19-2025 Pastoral care Progress note Pastoral Care [...] by Joe Martin on 10/22/2024 02:00 PM [facility] HospitalAtwzajor64-36-4450 Neurology Consult note Date of Service 10/22/2024 [...] Retired. 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 Appetite [...] WALTER CUEVAS MD on 10/22/2024 12:31 PM [facility] HospitalYfldwwby82-73-0279 History and physical note Date of Service [...] of confusion brought to the ED in [place] for further evaluation. Patient with no medications, [...] Retired. Description: Gurdeep., 04/09/2024 Home/Environment self Primary Mill Tender:., 12/09/2018 Nutrition/Health Type of diet: Regular. Appetite [...] LUIS SAMUELS DO on 10/21/2024 05:09 PM [facility] HospitalDyuwhpjp48-15-1943 Note. MICRO - Microbiology PROCEDURE: Urine Culture [...] Locations *1: This test was performed at: [facility], [address] [place] [address], [facility] , [facility]06-18-2025 Note* Exam Date Time Procedure Performing Provider Status 10/21/24 3:26 PM Electrocardiogram - EKG - CV VALERIE CAREY MD; Auth (Verified) ECG Final Report Sinus rhythm Probable left atrial enlargement Left bundle branch block Electronic Signature: BRIGITTE CAREY MD 10/22/2024 22:44:36 [facility] HospitalZawgkxhk56-47-8456 Note* Exam Date Time Procedure Performing Provider Status 10/21/24 3:12 PM XR Enteric Tube Placement MAR KNUTSON DO; Auth (Verified) [id number] ORIGINAL EXAMINATION: ONE SUPINE XRAY VIEW(S) OF [...] Date: 10/21/2024 3:45:47 PM Ordering Provider: LUIS [facility]06-18-2025 History and physical note Date of Service [...] of confusion brought to the ED in [place] for further evaluation. Patient with no medications, [...] Retired. Description: Gurdeep., 04/09/2024 Home/Environment self Primary Mill Tender:., 12/09/2018 Nutrition/Health Type of diet: Regular. Appetite [...] LUIS SAMUELS DO on 10/21/2024 05:09 PM [facility] HospitalFhrqjydm88-18-4812 Progress note Date of Service 10/21/2024 At [...] LUIS SAMUELS DO on 10/21/2024 03:47 PM [facility] HospitalUcvnnkpq12-00-0338 Note* Exam Date Time Procedure Performing Provider Status 10/21/24 2:08 PM Electrocardiogram - EKG - CV VALERIE CAREY MD; Auth (Verified) ECG Final Report Right and left arm electrode reversal, interpretation assumes no reversal SINUS RHYTHM Left atrial enlargement LEFT BUNDLE BRANCH BLOCK Electronic Signature: BRIGITTE CAREY MD 10/22/2024 22:44:26 [facility] [id number] History and physical note Date of Service [...] of confusion brought to the ED in [place] for further evaluation. Patient with no medications, [...] g iven normal saline bolus in the [place] ED, sodium did improve from 122-123. Continue [...] Retired. 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 Appetite [...] ARAM BELL DO on 10/20/2024 11:54 PM [facility] [id number] Note* Exam Date Time Procedure Performing Provider Status 10/20/24 11:50 AM XR Chest 2 Views MIRIAN DENNY MD; A [facility] (Verified) [id number] ORIGINAL EXAMINATION: TWO XRAY VIEWS OF THE [...] 10/20/2024 12:10:04 PM Ordering Provider: JAMIE TAYLOR [facility]06-17-2025 Note* Exam Date Time Procedure Performing Provider Status 10/20/24 11:[address] Head or Brain w/o Contrast FLINT, STEPHANIE C MD; Auth (Verified) [id number] ORIGINAL EXAMINATION: CT OF THE HEAD WITHOUT [...] 10/20/2024 11:52:19 AM Ordering Provider: JAMIE TAYLOR [facility]06-17-2025 Note* Exam Date Time Procedure Performing Provider Status 10/20/24 11:03 AM EKG [ED AOH] - CV JAMIE TAYLOR MD; Auth (Verified) ECG Final Report Sinus rhythm Probable left atrial enlargement Left bundle branch block SEE DICTATION Electronic Signature: JAMIE TAYLOR MD 10/20/2024 12:17:43 [facility]10-17-2024 Hospital Discharge instructions Patient Education 02/20/2024 [...] the ears or bruising around the eyes [id number] [employer]. [address] [place] [address]. All rights reserved. This information is not [...] in vomit, stools (black or red color) [phone] [employer]. [address] [place] [address]279. All rights reserved. This information is not intended as a substitute for professional medical care. Always follow yourhealthcare professional's instructions. Follow Up Care 02/20/2024 14:39:26 With:RASHMI PRICE Address: [address] [place] [address]- [phone] When:2-4 days With:ABAD SCHULZ MD, Orthopedic Address: [address] [place] [address] [address] [facility] [place], [place] [id number]- [phone] When:5 to 7 days [facility] 10-17-2024 Emergency department Discharge summary Discharge Instructions Thank you for allowing [facility] to assist you with your healthcare needs. [...] Up with RASHMI PRICE When:Within 2-4 days Where:[address] [place] [address]- [phone] Follow Up with ABAD SCHULZ MD, Orthopedic When:Within 5 to 7 days Where:[address] [place] [address] [address] [facility] [place], [place] [id number]- [phone] Allergies NKA Medications Please ask your primary [...] Type 2 diabetes mellitus One touch reuben lancets - dieudonneetn checks once a day Unchanged ferrous sulfate [...] the ears or bruising around the eyes [phone] [employer]. [address] [place] [address], [place] [address]. All rights reserved. This information is not [...] in vomit, stools (black or red color) [phone] [employer]. [address] [place] [address], [place] [address]. All rights reserved. This information is not intended as a substitute for professional medical care. Always follow yourhealthcare professional's instructions. Additional Information VACCINATE! IT SAVES LIVES! Members of the community who have not yet received the COVID-19 vaccine and would like to receive it can visit one of [facility] vaccine clinics. There are many vaccine clinic locations within the [facility]. For locations and available times, please visit www.gettheshot.coronavirus.[place].gov/. It is important to note that some COVID mobile vaccine clinics are held outdoors and may be canceled in rainy or stormy conditions. To learn more about pediatric vaccinations (ages 5-11), we invite you to visit the [facility] webpage. https://www.[facility].org/pages/3328-Yrour-Bnwwajqsghp-Ylivusphbg-Rshpz-Tbj stions.htmlTo learn more about the COVID-19 vaccine, we invite you to visit the CDC website for a list of frequently asked questions. https://www.cdc.gov/coronavirus/2019-ncov/vaccines/faq.html [facility] Patient Portal Access Instructions: Stay connected with your healthcare team and access your personal medical information anytime with the [employer] [employer] Patient Portal. If you would like a full copy of your medical records please contact the [facility] Medical Records Department Saturday through Saturday between 8a.m. and 4:30p.m. Please follow the directions below to access the portal: 1.Access the email account you provided upon registration to the hospital.2.Look for an invitation email from [facility].3.Open the email and access the invitation link: Accept Invitation to [facility]4.Fill in the required small to create your account. Sign into [email or web address] with your username and password that you [...] you will allow to register on the [employer] Patient Portal for access to your information. You can also access the [employer] Patient Portal on the [employer] darrel. Simply click on "Health Records" under "[employer]" and then click on the Stock[employer] logo. HOW TO SAFELY DISPOSE OF PRESCRIPTION [...] Call your local pharmacy or go to http://[employer].ShareThe/6J7Wx0s to find one close to you.3.Make use of household items: Use cat litter or old coffee grounds to dispose medications if other options arenot available. Mix your drugs with these household products, seal them in an airtight container andthrow it into the garbage. Call [facility]: [phone] to be sure your drugs can be [...] aware that I should contact my doctor. Patient/Kiln Stacker Signature: Date/Time: Relationship to Patient: Witness Name/Signature: Date/Time: [facility]10-17-2024 Note ORIGINAL HISTORY: Fall COMPARISON: No [...] Sign Date: 02/20/2024 3:59:40 PM Ordering Provider: [facility]10-17-2024 Note ORIGINAL HISTORY: Fall COMPARISON: No [...] Sign Date: 02/20/2024 3:38:46 PM Ordering Provider: [facility]10-17-2024 Note ORIGINAL HISTORY: Fall COMPARISON: No [...] Sign Date: 02/20/2024 3:29:22 PM [facility]ing [facility] Future Appointments Appointment Date:05/16/2021 09:00:00 AM Scheduled Provider:RASHMI PRICE Location:[facility] Appointment Type:PC Wellness Medicare Future Scheduled Tests Radiology* XR Chest 2 Views (PA & Lateral) 04/08/21 [facility] Evaluation + Plan note Future Appointments Appointment Date:04/26/2021 09:00:00 AM Scheduled Provider:RASHMI PRICE Location:[facility] Appointment Type: OV Appointment Date:05/16/2021 09:00:00 AM Scheduled Provider:RASHMI PRICE Location:[facility] Appointment Type:PC Wellness Medicare Future Scheduled Tests Radiology* XR Chest 2 Views (PA & Lateral) 04/08/21 [facility] Evaluation + Plan note Future Appointments Appointment Date:05/01/2022 09:00:00 AM Scheduled Provider:RASHMI PRICE Location:[facility] Appointment Type:PC OV Future Scheduled Tests Laboratory* Prostate Specific Antigen 05/01/22 * Complete Blood Count 05/01/22 * Lipid Profile 05/01/22 * Complete Metabolic Panel 05/01/22 Radiology* XR Chest 2 Views (PA & Lateral) 04/08/21 [facility] Evaluation + Plan note Future Appointments Appointment Date:05/01/2022 09:00:00 AM Scheduled Provider:RASHMI PRICE Location:[facility] Appointment Type:PC OV [facility] Evaluation + Plan note Future Appointments Appointment Date:09/04/2022 08:00:00 AM Scheduled Provider:RASHMI PRICE Location:[facility] Appointment Type:PC OV Future Scheduled Tests Laboratory* Complete Blood Count 08/28/22 * Complete Metabolic Panel 08/28/22 [facility] Evaluation + Plan note Future Appointments Appointment Date:10/18/2022 09:00:00 AM Scheduled Provider:RASHMI PRICE Location:[facility] Appointment Type:PC OV [facility] Evaluation + Plan note Future Appointments Appointment Date:09/03/2023 12:15:00 PM Scheduled Provider:YASMANI [facility] DO Location:[facility] Appointment Type:PC Office Procedure Appointment Date:10/09/2023 09:00:00 AM Scheduled Provider:RASHMI PRICE Location:[facility] Appointment Type:PC OV Future Scheduled Tests Laboratory* Prostate Specific Antigen 10/09/23 * Complete Blood Count 10/09/23 * Complete Blood Count 09/20/22 * CPK 09/20/22 * Lipid Profile 10/09/23 * Albumin/Creatinine Ratio, Random Urine 08/30/23 * Complete Metabolic Panel 10/09/23 * Complete Metabolic Panel 09/20/22 [facility] Evaluation + Plan note Future Appointments Appointment Date:01/09/2024 09:30:00 AM Scheduled Provider:RASHMI PRICE Location:[facility] Appointment Type:PC OV Future Scheduled Tests Laboratory* Prostate Specific Antigen 10/09/23 * Complete Blood Count 10/09/23 * Lipid Profile 10/09/23 * Albumin/Creatinine Ratio, Random Urine 10/09/23 * Complete Metabolic Panel 10/09/23 [facility] Evaluation + Plan note Future Appointments Appointment Date:04/09/2024 10:30:00 AM Scheduled Provider:RASHMI PRICE Location:[facility] Appointment Type: Wellness Medicare Future Scheduled Tests Laboratory* Prostate Specific Antigen 10/09/23 * Complete Blood Count 10/09/23 * Lipid Profile 10/09/23 * Albumin/Creatinine Ratio, Random Urine 10/09/23 * Complete Metabolic Panel 10/09/23 [facility] Evaluation + Plan note Future Appointments Appointment Date:04/09/2024 10:30:00 AM Scheduled Provider:RASHMI PRICE Location:[facility] Appointment Type: Wellness Medicare Future Scheduled Tests Laboratory* Ferritin 03/23/24 * Iron Level 03/23/24 * Complete Blood Count 03/23/24 * Albumin/Creatinine Ratio, Random Urine 10/09/23 [facility] evaluation + Plan note Future Appointments Appointment Date:04/09/2024 10:30:00 AM Scheduled Provider:RASHMI PRICE Location:[facility] Appointment Type: Wellness Medicare Future Scheduled Tests Laboratory* Albumin/Creatinine Ratio, Random Urine 10/09/23 [facility] Videojugaluation + Plan note Future Appointments Appointment Date:07/08/2024 10:00:00 AM Scheduled Provider:RASHMI PRICE Location:[facility] Appointment Type:PC OV Future Scheduled Tests Laboratory* Albumin/Creatinine Ratio, Random Urine 10/09/23 [facility] Evaluation + Plan note Future Appointments Appointment Date:05/01/2024 09:30:00 AM Scheduled Provider:RASHMI PRICE Location:[facility] Appointment Type:PC OV Appointment Date:07/08/2024 10:00:00 AM Scheduled Provider:RASHMI PRICE Location:[facility] Appointment Type: OV [facility] Evaluation + Plan note Future Appointments Appointment Date:07/08/2024 10:00:00 AM Scheduled Provider:RASHMI PRICE Location:[facility] Appointment Type:PC OV Future Scheduled Tests Laboratory* Ferritin 05/01/24 * Iron Level 05/01/24 * Complete Blood Count 05/01/24 [facility] Evaluation + Plan note Future Appointments Appointment Date:07/08/2024 10:00:00 AM Scheduled Provider:RASHMI PRICE Location:[facility] Appointment Type:PC OV [facility] Evaluation + Plan note Future Appointments Appointment Date:10/08/2024 10:30:00 AM Scheduled Provider:RASHMI PRICE Location:[facility] Appointment Type:PC OV [facility] Evaluation + Plan note Future Appointments Appointment Date:01/06/2025 10:30:00 AM Scheduled Provider:RASHMI PRICE Location:[facility] Appointment Type:PC OV [facility] Hospital course Narrative No data available for this section [facility] Hospital Discharge instructions No data available for this section [facility] Hospital Discharge instructionsAdditional Instructions Discharge to [facility] 11/13/2024, [facility] PT/OT/ST, FWW. FWW: Patient is unsafe to use a cane and requires a walker for ambulation in the home and the community.[facility] Work Phone: Progress note No data available for this section [facility] Summary Purpose Family History Relationship Condition Age at Onset Recorded Date/T russell daughter Diabetes mellitus Unknown mother Hypertension Unknown Hyperlipidemia Unknown Malignant neoplasm of lung Unknown father Hyperlipidemia Unknown brother Hyperlipidemia Unknown No Family History Records Found Advance Directives Advance Directive Response Recorded Date/ Time Do you have a Healthcare Power of Guide Excursion? Yes October 30, 2024 9:46am Chief Complaint [...] Admit Date CARDIAC ARREST/RESP FAILURE October 29 2 025 3:48pm SNF LAB WORK November 23, 2024 4: 00am SNF LAB WORK December 10, 2024 5 :41pm Reason for Visit Admit Date Anxiety October 29, 2024 3:48 pm BPH (benign prostatic hyperplasia) October 29, 2024 3:48pm Debility October 29, 2024 3:48 pm Essential (primary) hypertension October 292024 3:48pm Glaucoma October 29, 2024 3:48 pm Hyperlipidemia, unspecified October 29 025 3:48pm Iron deficiency anemia October 29, [...] Member Role: Primary Care Physician Address: Address: [address] [place] [address] Name: Blessing Griffiths PT Position: P3 Scheduling - Credit Administrator Advanced Member Role: Other Name: BRENDEN FARMER MD Member Role: Wool Merchant Address: Address: [facility] [address] Name: [facility] Member Role: Jamb Cutter Care Team Related Persons Name: JOEY ADAMSON Address: [address] [place], [place] [id number] Care Team Personnel Name: RASHMI PRICE Position: P4 Advanced Practice Nurse Member Role: Primary Care Physician Address: Address: [address] [place] [address] Name: Blessing Griffiths PT Position: P3 Scheduling - Credit Administrator Advanced Member Role: Other Name: BRENDEN FARMER MD Member Role: Wool Merchant Address: Address: [facility] [address] Name: [facility] Member Role: Jamb Cutter Care Team Related Persons Name: JOEY ADAMSON Address: Home [address] [facility] [place], [place] [id number] Patient Care team informatio n (unrecognized section and content) Team Status: Active Member Role/Relationship Status Dates Rashmi Price LOGISTICS OFFICER, LOGISTICS OFFICER-C Primary Care Provider Active Team Status: Inactive Member Role/Relationship Status Dates Rashmi Price LOGISTICS OFFICER, LOGISTICS OFFICER-C Primary Care Provider Active Start: October 29, [...] Active Member Role/Relationship Status Dates Rashmi Price LOGISTICS OFFICER, LOGISTICS OFFICER-C Primary Care Provider Active Start: November 23, 2024 Dr. Yasmani BRO MD Attending Provider Active Start: November 23, 2024 Dr. Yasmani BRO MD Referring Provider Active Start: November 23, 2024 Team Status: Inactive Member Role/Relationship Status Dates Rashmi Price LOGISTICS OFFICER, LOGISTICS OFFICER-C Primary Care Provider Active Start: December 10, 2024 End: December 10, 2024 Dr. Yasmani BRO MD Attending Provider Active Start: December 10, 2024 End: December 10, 2024 Dr. Yasmani BRO MD Referring Provider Active Start: December 10, 2024 End: December 10, 2024 Team Status: Active Member Role/Relationship Status Dates Rashmi Price LOGISTICS OFFICER, LOGISTICS OFFICER-C Primary care physician Active Team Status: Inactive Member Role/Relationship Status Dates Rashmi Albert LOGISTICS OFFICER, LOGISTICS OFFICER-C Primary care physician Active Start: October 29, [...] Active Member Role/Relationship Status Dates Rashmi Price LOGISTICS OFFICER, LOGISTICS OFFICER-C Primary care physician Active Start: November 23, 2024 Dr. Yasmani BRO MD Attending physician Active Start: November 23, 2024 Dr. Yasmani BRO MD Referring Provider Active Start: November 23, 2024 Team Status: Inactive Member Role/Relationship Status Dates Rashmi Price LOGISTICS OFFICER, LOGISTICS OFFICER-C Primary care physician Active Start: December 10, [...] section and content) DATE CREATED AUTHOR 10/13/2023 [facility] DATE CREATED AUTHOR AUTHOR'S ORGANIZ ATION 10/30/2024 [facility] DATE CREATED AUTHOR AUTHOR'S ORGANIZ ATION 12/02/2024 [facility] DATE CREATED AUTHOR AUTHOR'S ORGANIZ ATION 12/17/2024 [facility] FOR RECORDS PERTAINING TO PATIENTS [...] BE BASED ON THE PRIMARY CLINICAL RECORDS. [facility] [employer] [facility]. provides no warranty or guarantee of the accuracy or completeness of information in this document.
[2025-04-20 07:58] LABS: Color, Urine Yellow (Yellow); Glucose, Dipstick 100 mg/dl (Normal); Ketone-Dipstick Negative (Negative); Leukocyte Esterase-Dipstick Negative /ul (Negative); Nitrite-Dipstick Negative (Negative); Occult Blood-Urine 10 /ul (Negative); Protein-Dipstick 15 mg/dl (Negative); Specific Gravity, Urine 1.010 (1.002-1.030); Urine Bilirubin Dipstick Negative (Negative)
[2025-04-20 08:27] LABS: Squamous Epithelial Cells - UA 0-5 SEEN /hpf (0-5)
== END ==
LOC: OLS.BROOKB 17:30
PROVIDERS: PCP Nurse Practitioner Primary Care
DX: R33.9 Retention of urine, unspecified (principal); R45.6 Violent behavior
CPT/HCPCS: 81001; 87086; 87088